=== PATIENT | male | born 1960 | race Caucasian/White ===

== ENCOUNTER 2024-03-03 07:22 | Outpatient (CLI) | payer BC, SELFPAY ==
[2024-03-03 07:37] LABS: Basophils Absolute Auto 0.02 K/mm3 (0.00-0.10); Basophils Percent Auto 0.2 % (0.0-1.0); Hematocrit 37.2 % (40.0-54.0); Hemoglobin 12.2 g/dL (14.0-18.0); Immature Granulocyte Absolute 0.05 K/mm3 (0.00-0.00); Immature Granulocyte Percent A 0.4 % (0.0-0.0); Lymphocytes Absolute Auto 1.58 K/mm3 (1.10-4.50); Lymphocytes Percent Auto 13.2 % (18.0-42.0); Mean Corpuscular HGB Conc 32.8 g/dL (32-36); Mean Corpuscular Hemoglobin 30.3 pg (27.0-31.0); Mean Corpuscular Volume 92.3 fL (78.0-102.0); Mean Platelet Volume 9.4 fl (8.7-11.0); Monocytes Absolute Auto 1.44 K/mm3 (0.10-0.90); Monocytes Percent Auto 12.1 % (2.0-11.0); Neutrophils Absolute Auto 8.86 K/mm3 (1.70-7.20); Neutrophils Percent Auto 74.1 % (50.0-70.0); Platelet Count Result 357 K/mm3 (150-420); Red Blood Count 4.03 M/mm3 (4.70-6.10); Red Cell Distribution Width 13.3 % (11.6-14.4)
[2024-03-03 07:41] LABS: Add Urine Microscopic? YES; Appearance Urine Clear (Clear); Bilirubin Urine Negative (Negative); Blood Urine 2+ (Negative); Color Urine Light Yellow (Yellow); Glucose Urine UA Trace (Negative); Ketones Urine Negative (Negative); Leukocyte Esterase Ur 1+ (Negative); Nitrate Urine Negative (Negative); Protein Urine 1+ (Negative); Specific Grav Ur 1.015 (1.010-1.020); Urobilinogen Urine 0.2 mg/dL (0.2-1.0); pH Urine 6.5 (5.0-8.0)
[2024-03-03 07:47] LABS: Bacteria Urine Trace /hpf
[2024-03-03 08:27] LABS: Alanine Aminotransferase 18 U/L (16-63); Albumin Level 3.3 g/dL (3.4-5.0); Alkaline Phosphatase 124 U/L (46-116); Anion Gap 16 mmol/L (4-12); Aspartate Amino Transferase 12 U/L (15-37); Bilirubin,Total 0.5 mg/dL (0.00-1.00); Blood Urea Nitrogen 67 mg/dL (7-18); Calcium 8.6 mg/dL (8.5-10.1); Carbon Dioxide 19 mmol/L (21-32); Chloride 104 mmol/L (98-108); Cholesterol 226 mg/dL (0-200); Estimated Glomerular Filt Rate 5; Glucose 91 mg/dL (70-99); HDL Direct 47 mg/dL (40-60); LDL Cholesterol Calculated 155 mg/dL (<130); Osmolality Calculated 307 mOsm/kg (285-295); Potassium 5.2 mmol/L (3.5-5.1); Prostate Specific Antigen 0.8 ng/mL (< OR = 4.0); Sodium 139 mmol/L (136-145); Total Protein 7.4 g/dL (6.4-8.2); Triglycerides 121 mg/dL (0-150)
== END 2024-03-03 07:23 | disposition home or self-care (01) ==
PROVIDERS: PCP Internal Medicine; Visit Provider Internal Medicine
DX: Z00.00 Encounter for general adult medical examination without abnormal findings (principal)
CPT/HCPCS: 36415; 80053; 80061; 81001; 84153; 84443; 85025; G0103

== ENCOUNTER 2024-07-08 16:17 | Outpatient (CLI) | payer BC, SELFPAY ==
[2024-07-08 16:32] LABS: Basophils Absolute Auto 0.02 K/mm3 (0.00-0.10); Basophils Percent Auto 0.2 % (0.0-1.0); Hematocrit 40.1 % (40.0-54.0); Hemoglobin 13.1 g/dL (14.0-18.0); Immature Granulocyte Absolute 0.04 K/mm3 (0.00-0.00); Immature Granulocyte Percent A 0.4 % (0.0-0.0); Lymphocytes Percent Auto 24.6 % (18.0-42.0); Mean Corpuscular HGB Conc 32.7 g/dL (32-36); Mean Corpuscular Hemoglobin 29.9 pg (27.0-31.0); Mean Corpuscular Volume 91.6 fL (78.0-102.0); Mean Platelet Volume 9.7 fl (8.7-11.0); Monocytes Absolute Auto 0.76 K/mm3 (0.10-0.90); Monocytes Percent Auto 8.5 % (2.0-11.0); Neutrophils Absolute Auto 5.92 K/mm3 (1.70-7.20); Neutrophils Percent Auto 66.3 % (50.0-70.0); Platelet Count Result 401 K/mm3 (150-420); Red Blood Count 4.38 M/mm3 (4.70-6.10); Red Cell Distribution Width 13.1 % (11.6-14.4); White Blood Count 8.9 K/mm3 (4.8-10.8)
[2024-07-08 16:33] LABS: Add Urine Microscopic? YES; Appearance Urine Clear (Clear); Bilirubin Urine Negative (Negative); Blood Urine 2+ (Negative); Color Urine Light Yellow (Yellow); Glucose Urine UA 1+ (Negative); Ketones Urine Negative (Negative); Leukocyte Esterase Ur Trace LEU/UL (Negative); Nitrate Urine Negative (Negative); Protein Urine 2+ (Negative); Specific Grav Ur 1.025 (1.010-1.020); Urobilinogen Urine 0.2 mg/dL (0.2-1.0)
[2024-07-08 16:43] LABS: Bacteria Urine Trace /hpf; RBC Urine 21-50 /hpf (0-2); Squamous Epithelial Cell Urine Few /hpf (Few); WBC Urine 0-3 /hpf (0-3)
[2024-07-08 17:15] LABS: Alanine Aminotransferase 18 U/L (16-63); Albumin Level 3.7 g/dL (3.4-5.0); Alkaline Phosphatase 120 U/L (46-116); Anion Gap 13 mmol/L (4-12); Aspartate Amino Transferase 17 U/L (15-37); Bilirubin,Total 0.1 mg/dL (0.00-1.00); Blood Urea Nitrogen 39 mg/dL (7-18); Calcium 9.3 mg/dL (8.5-10.1); Carbon Dioxide 24 mmol/L (21-32); Chloride 105 mmol/L (98-108); Estimated Glomerular Filt Rate 23; Glucose 84 mg/dL (70-99); Magnesium 1.9 mg/dL (1.8-2.4); Osmolality Calculated 302 mOsm/kg (285-295); Phosphorus 4.4 mg/dL (2.6-4.7); Potassium 4.3 mmol/L (3.5-5.1); Sodium 142 mmol/L (136-145); Total Protein 7.9 g/dL (6.4-8.2)
[2024-07-08 17:17] LABS: CRP < 0.5 mg/dL (0.0-0.9)
[2024-07-08 17:37] LABS: Erythrocyte Sedimentation Rate 35 mm/hr (0-20)
[2024-07-11 14:19] LABS: Complement Total CH50 >60 U/mL (31-60)
[2024-07-12 06:28] LABS: Complement C3 146 mg/dL (82-185)
[2024-07-15 03:04] LABS: ANCA Screen NEGATIVE (NEGATIVE)
== END 2024-07-08 16:18 | disposition home or self-care (01) ==
PROVIDERS: PCP Internal Medicine; Visit Provider Internal Medicine
DX: N17.9 Acute kidney failure, unspecified (principal)
CPT/HCPCS: 36415; 80053; 81001; 83735; 84100; 85025; 85652; 86036; 86038; 86039; 86140; 86160; 86162

== ENCOUNTER 2024-08-18 13:38 | Outpatient (CLI) | payer BC, SELFPAY ==
--- NOTE | ~2024-08-18 | XR_ITS ---
EXAM: XR abdomen/kub 1V DATE: 08/18/2024 14:46 HISTORY: Calculus of ureter . COMPARISON: CT abdomen and pelvis, same date. FINDINGS: Clear lung bases. Normal bowel gas pattern. No organomegaly. Scattered pelvic phleboliths. Lumbar degenerative disc disease. 17 mm calcification over the right renal pelvis. Bilateral hip ost eoarthritis. Bilateral ureteral stents, in good position. IMPRESSION: Stable right renal pelvis stone. Bilateral ureteral stents, in good position. Reviewed, dictated and finalized at location K. TER PACKAGING MACHINE OPERATOR
--- NOTE | ~2024-08-18 | CT_ITS ---
EXAMINATION: CT abdomen pelvis wo con DATE: 08/18/2024 13:57 INDICATION: Calculus of ureter. TECHNIQUE: Computed tomography (CT) of the abdomen and pelvis was performed without intravenous contr ast. Automated exposure control and iterative reconstruction technique were employed. The dose-length product was 553.53 mGy-cm. COMPARISON: CT abdomen and pelvis 12/05/2013 FINDINGS: The visualized portions of the lung bases demonstrate minimal atelectasis. No pleural effus ion. The heart size is normal. No pericardial effusion. Calcifications in the liver and spleen are co nsistent with old granulomatous disease. The gallbladder, pancreas, and adrenal glands are normal. Th ere is a 3.1 cm cyst in right kidney. There is moderate right hydronephrosis and hydroureter. There i s a 16 mm stone in right renal pelvis. There is a right internal ureteral stent in expected position. There is a 6 mm hyperdense mass in left kidney, likely a hemorrhagic cyst. There is a left internal ureteral stents in expected position. There are bilateral inguinal hernias containing fat. There is d iverticulosis of the colon without evidence of diverticulitis. The appendix is normal. There are no d ilated loops of bowel. There are no pathologically enlarged lymph nodes. There is no free intraperito bernard fluid. There is mild thoracic and lumbar spondylosis. IMPRESSION: 1. 16 mm stone in right renal pelvis. 2. Moderate right hydronephrosis and hydroureter with right internal ureteral stent in expected posit ion. 3. Left internal ureteral stent in expected position. Reviewed, dictated and finalized at location A. S OPERATIONS ANALYST IMPRESSION: 1. 16 mm stone in right renal pelvis. 2. Moderate right hydronephrosis and hydroureter with right internal ureteral s tent in expected position. 3. Left internal ureteral stent in expected position.
== END 2024-08-18 13:39 | disposition home or self-care (01) ==
PROVIDERS: PCP Urology; Visit Provider Urology
DX: N20.1 Calculus of ureter (principal)
CPT/HCPCS: 74018; 74176

== ENCOUNTER 2024-09-09 15:24 | Outpatient (CLI) | payer BC, SELFPAY ==
--- OUTSIDE RECORDS SUMMARY | 2024-09-09 15:27 | XMS_ITS | Clinical Summary ---
Author Organization [facility] Address [address] [place] [address] Care Team Providers Care Supervisor Knitting Name Role Phone Carlos Ventura MD Primary Care Provider [phone] Allergies No known active allergies Medications Fluticasone-Um eclidin-Vilant (TRELEGY ELLIPTA IN) Inhale into the lungs daily. Active omeprazole (PRILOSEC) 40 MG capsule Take 1 capsule (40 mg total) by mouth daily. Active fluticasone propionate (FLONASE) 50 MCG/ACT nasal spray 2 sprays by Each Nostril route nightly at bedtime. Active Benralizumab (FASENRA SC) Inject into the skin see administration instructions. Every 2 months Active montelukast (SINGULAIR) 10 MG tablet Take 1 tablet (10 mg total) by mouth nightly at bedtime. Active amLODIPine (NORVASC) 5 MG tablet Take 1 tablet (5 mg total) by mouth daily. 30 tablet 4 Active HYDROcodone-ac etaminophen (NORCO) 5-325 MG tabletIndicati ons:Acute Pain < 7 Day Supply Take 1 tablet by mouth every 4 (four) hours as needed. Indications: Acute Pain < 7 Day Supply 10 tablet 4 Active Active Problems Problem Noted Date Diagnosed Date Acute renal failure (ARF) 03/03/2024 Social History Tobacco Use Types Packs/Day Years Used Date Smoking Tobacco: Never Smokeless Tobacco: Never Tobacco Cessation:Counseling Given: Not Answered Alcohol Use Standard Drinks/Week Comments Yes 23.3 (1 standard drink = 0.6 oz pure alcohol) vodka every evening [facility] Utilities Answer Date Recorded In the past 12 months has [facility] [employer], [employer], or [employer] threatened to shut off services in your home? No 03/04/2024 Humiliation, Afraid, Rape, and Kick questionnair e Answer Date Recorded Within the last year, have y ou been afraid of your partner or ex-partner? No 03/04/2024 Within the last year, have y ou been humiliated or emotionally abused in other ways by your partner or ex-partner? No Within the last year, have y ou been kicked, hit, slapped, or otherwise physically hurt by your partner or ex-partner? No 03/04/2024 Within the last year, have y ou been raped or forced to have any kind of sexual activity by your partner or ex-partner? No 03/04/2024 Overall Financial Resource Strain (CARDIA) Answe r Date Recorded How hard is it for you to pa y for the very basics like food, housing, medical care, and heating? Not hard at all 03/04/2024 Hunger Vital Sign Answer Date Recorded Within the past 12 months, y ou worried that your food would run out before you got the money to buy more. Never true 03/04/20 24 Within the past 12 months, t he food you bought just didn't last and you didn't have money to get more. Never true 03/04/2024 PRAPARE - Transportation Answer Date Re corded In the past 12 months, has l ack of transportation kept you from medical appointments or from getting medications? No 02/17 In the past 12 months, has l ack of transportation kept you from meetings, work, or from getting things needed for daily living? No 03/04/2024 Housing Stability Vital Sign Answer Reuben e Recorded In the last 12 months, was t here a time when you were not able to pay the mortgage or rent on time? No 03/04/2024 In the past 12 months, how m any times have you moved where you were living? 0 03/04/2024 At any time in the past 12 m [facility], were you homeless or living in a half-way (including now)? No 03/04/2024 Sex and Gender Information Value Date Recorded Sex Assigned at Not on file Legal Sex Male 6:21 PM CDT Gender Identity Not on file Sexual Orientation Not on file Last Filed Vital Signs Vital Sign Reading Time Taken Comments Blood Pressure 151/115 2024 7:29 AM CDT Pulse 108 2024 7:29 AM CDT Temperature 36.8 C (98.2 F) 2024 7:29 AM CDT Respiratory Rate 18 2024 7:29 AM CDT Oxygen Saturation 98% 2024 7:29 AM CDT Inhaled Oxygen Concentration - - Weight 85.8 kg (189 lb 3.2 oz) 2024 3:42 A M CDT Height 167.6 cm (5' 6 ) 03/03/2024 8:12 PM CDT Body Mass Index 30.54 03/03/2024 8:12 PM CDT Plan of Treatment Health Maintenance Due Date Last Done Comments Colorectal Cancer Screening Colonoscopy (10 Years) 1960 Annual Physical 1963 DTaP, Tdap and Td Vaccines ( 1 - Tdap) 1979 Zoster Vaccines (1 of 2) 2010 COVID-19 Vaccine ( - 2023-2 5 season) 2024 Influenza Adult (#1) 2024 RSV Immunization or 60+ Years (1 - 1-dose 75+ series) 2035 Hepatitis C Completed 03/04/2024 Meningococcal B Vaccine Aged Out No l onger eligible based on patient's age to complete this topic Meningococcal Vaccine Aged Out No lali fanny eligible based on patient's age to complete this topic Pneumococcal Vaccine: Pediat rics (0 to 5 Years) and At-Risk Patients (6 to 64 Years) Aged Out No longer eligi ble based on patient's age to complete this topic RSV Immunizations Under 20 Months Aged Out No longer eligible based on patient's age to complete this topic Medical Devices Implanted Type Area Director Enterprise Sales Device Identifier Shelf Expiration Date Model / Serial / Lot Stent Ureteral Contour Vl 4.8fr X 22-30cm - [id number] Implanted:Qty : 1 on 03/05/2024 by Stanley Gonzalez MD at [facility] Stent Right: Ureter [employer] LUCIUS [id number] 12/07/2026 [id number] 50 / / [id number] Stent Ureteral Contour Vl 4.8fr X 22-30cm - [id number] Implanted:Qty : 1 on 03/05/2024 by Stanley Gonzalez MD at [facility] Stent Right: Ureter [employer] LUCIUS [id number] 12/07/2026 [id number] 50 / / [id number] Procedures Procedure Name Priority Date/Time Associated Diagnosis Comments HEPATITIS C ANTIBODY Routine 03/04/2024 6:42 AM CDT from Last 3 Months or Most Recently Relevant to Health Maintenance Results * HEPATITIS C ANTIBODY W/REFLEX (03/04/2024 6:42 AM CDT) HEPATITIS C AB NON-REACTI VE NON-REACTI VE 03/04/2024 8:53 AM CDT [facility] 03/04/2024 6:42 AM CDT Moses Leslie MD LABORATORY Final Result [facility] [address] [place] [address], from Last 3 Months or Most Recently Relevant to Health Maintenance Insurance [facility] Advance Directives * Full Code (Latest Code Status on File) Date Activated Date Inactivated Comments 03/03/2024 9:23 PM 2024 2:50 PM Care Teams Supervisor Knitting Relationship Specialty Start Date End Date Carlos Ventura MD [address] [place] [id number] PCP - General INTERNAL MEDICINE 03/03/24
--- NOTE | 2024-09-09 15:35 | ECG_ITS ---
Test Date: 2024-09-09 15:47:51 Measurements Intervals [place] Rate: 91 P: 60 MT: 148 QRS: 71 QRSD: 97 T: 44 QT: 350 QTc: 432 Interpretive Statements SINUS RHYTHM NORMAL ECG No previous ECG available for comparison Electronically Signed On 09-09-2024 15:54:58 BENZENE WORKER by Brad Pierson D.O.
[2024-09-09 16:10] LABS: INR 0.9; Partial Thromboplastin Time 25.3 Sec (23.9-30.70); Prothrombin Time 9.9 Seconds (9.50-12.1)
== END 2024-09-09 15:25 | disposition home or self-care (01) ==
PROVIDERS: PCP Urology; Visit Provider Urology
DX: I10 Essential (primary) hypertension (principal); N20.0 Calculus of kidney
CPT/HCPCS: 36415; 85610; 85730; 87086; 93005

== ENCOUNTER 2024-09-16 01:03 | Day surgery (SDC) | payer BC, SELFPAY ==
[2024-09-07 09:59] VITALS: BMI 32.0
--- NOTE | 2024-09-07 10:06 | PC.NURSE ---
Report to the Outpatient Waiting Room, entrance under the green pavilion located off [facility], at time _0830_ on date _09/16/24_. Planned Procedure Time: _1030_.? Time changes happen often and if your time is changed the preop area will call you the afternoon before. - You and your visitor will be asked to self-screen and do not enter if you have any COVID symptoms. Please call surgeon if you need to reschedule. - A mask is optional within the hospital at this time. Patients may have clear liquids (water, carbonated beverages, clear teas, apple juice) until 3 hours prior to surgery with a maximum of 20 ounces. - No food from midnight until time of surgery and no smoking, or chewing tobacco (or any form of nicotine). No chewing gum, candy or mints. - Infants may have breast milk until 4 hours before surgery, infant formula 6 hours prior to surgery. - Children will be allowed to drink immediately following surgery.? If applicable, please bring a bottle or sippy cup to assist with drinking. Juice, water, soda, and popsicles are readily available.? For infants on formula, please bring formula the day of surgery.? Pacifiers are allowed. Take only the following medications with a SIP of water on the morning of surgery: _NONE DO NOT STOP ANY OF YOUR OTHER PRESCRIPTION MEDICATIONS PRIOR TO SURGERY EXCEPT THE FOLLOWING Hold all vitamins and supplements for 3 days per anesthesiologist. Medications to discontinue per physician NONE Date to take last dose Please no make-up, nail greenlandic, hairspray, perfume, deodorant, or body powder the day of surgery.? No jewelry (including any body piercings) or valuables the day of surgery, leave them at home.? Please take a shower or bath the night before, or the morning of, surgery with an antibacterial soap.? Wear comfortable, loose fitting clothing.? Children are encouraged to wear pajamas. - Jewelry must be removed prior to entering the operating room.? Rings and piercings that are not removed may be cut off. - The hospital will not accept responsibility for valuables.? - Please leave all valuables, including medications, at home the day of surgery. If you are going home after surgery, a licensed car pick up driver must drive you home.? - NO public transportation without another adult if you receive anesthesia. - We recommend that an adult stay with you for 24 hours following discharge. - We also recommend that you do not drive, make important decision, drink alcoholic beverages, or take any drugs that were not prescribed by your health care provider for at least 24 hours after your discharge time. For Pediatric surgeries, we recommend two adults accompany the child home. Follow any additional instructions given to you from your surgeon. Telephone instructions given to __PATIENT___and asked if any additional questions and then verbalized understanding. Patient advised to call surgeon office or pre surgery nurse liaison [phone] if any additional questions.
[2024-09-16 08:38] VITALS: BMI 32.0
[2024-09-16 09:10] VITALS: BP 165/102; PULSE 79; RESP 16; TEMP 36.7; O2SAT 100
[2024-09-16] MEDS: LACTATED RINGERS 1,000 ML 30 ML IV CONT ×2 (09:15→12:19)
--- NOTE | 2024-09-16 09:51 | PM.IMHP ---
H&P: HPI History of Present Illness Date/Time: 09/16/24 09:51 Chief Complaint: 16 mm right renal pelvic stone with bilateral ureteral stents Narrative: 64-year-old male who had bilateral ureteral stents placed back in February of 2024. He was lost a follow-up. Subsequent CT does not reveal any left ureteral stones. He is now here for lithotripsy of his right renal stone. Given the stents have been in so long I will plan on removing the left ureteral stent and exchanging the right 1 at this time also. Review of Systems Review of Systems: All systems reviewed & are unremarkable except as noted in HPI and below PMFSH Past Medical History Medical History COPD (chronic obstructive pulmonary disease) GERD (gastroesophageal reflux disease) Nephrolithiasis Obstructive uropathy Surgical History Surgical History S/P cystoscopy with ureteral stent placement Family History Family History Father Kidney disease Mother COPD (chronic obstructive pulmonary disease) Social History Social History Smoking status: Never smoker Second hand tobacco smoke exposure: Yes Alcohol intake: current Drinks per week: 1 Alcohol use details: vodka Substance use: never Do You Feel Safe in your Home?: Yes Lack of Transportation: No Lack of Food: Never True Current Housing: I Have Housing Concerned About Future Housing: No Difficulty Paying Gas/Electric Bills: No Difficulty Paying for Meds: No Currently Unemployed: No Education: High School Diploma/GED Difficulty w/ Childcare or Family Care: No Living arrangements: with family Occupation/Education: occupation Gender identity (if verbalized by the patient): Male Spiritual care concerns: No Agree to blood products: Yes Meds Home Medications and Allergies Home Medications ?Medication ?Instructions ?Recorded ?Confirmed ?Type fluticasone fur. 100 mcg-umeclid 1 inh inhalation DAILY 08/23/24 09/07/24 History 62.5 mcg-vilant 25 mcg inhalat.powder (Trelegy Ellipta) fluticasone propionate 50 1 spray intranasal DAILY 08/23/24 09/07/24 History mcg/actuation nasal spray,suspension metoprolol succinate 25 mg 25 mg PO HS 08/23/24 09/16/24 History tablet,extended release 24 hr montelukast 10 mg tablet 10 mg PO DAILY 08/23/24 09/16/24 History omeprazole 40 mg capsule,delayed 40 mg PO DAILY 08/23/24 09/16/24 History release Allergies Allergy/AdvReac Type Severity Reaction Status Date / Time No Known Allergies Allergy Verified 09/16/24 08:53 Vital Signs Vital Signs - 24 hr 09/16/24 09:10 Temperature 36.7 C Pulse Rate 79 Respiratory Rate 16 Blood Pressure 165/102 H Pulse Oximetry 100 Oxygen Delivery Room Air Exam Const: General: cooperative and comfortable HENMT: Head: normal to inspection Resp: Effort & Inspection: normal respiratory effort Cardio: Rate: regular rate Rhythm: regular rhythm Assessment and Plan Assessment and plan (1) Right renal stone: Code(s): N20.0 - Calculus of kidney Status: Acute Assessment and Plan: Will plan on lithotripsy of right renal calculus with cysto and left stent removal, right stent exchange as well as retrograde pyelogram
--- NOTE | 2024-09-16 09:54 | WPDHPUPDATE1 ---
History and Physical Update Update Date/Time: 09/16/24 09:54 History and Physical has been reviewed, including an updated exam of the patient. There are NO changes in the patient's condition. Risks, benefits, and alternatives have been discussed and questions answered. Patient agrees to proceed with procedure.
--- NOTE | 2024-09-16 11:08 | WPDANESEPPF ---
Anes - Initial Pre Proc Eval Procedure: Operation Date: 09/16/24 10:30 Proposed Procedures p Right Extracorporeal Shock Wave Lithotripsy - Alexis King MD Date/Time: 09/16/24 11:08 Surgeon: Alexis King MD Pre Op Diagnosis: right renal kidney stone Patient Data Age: 64 Gender: M Height: 1.68 m Weight: 90.05 kg Last Vital Signs Temp 98.1 F 09/16/24 09:10 Pulse 79 09/16/24 09:10 Resp 16 09/16/24 09:10 BP 165/102 H 09/16/24 09:10 Pulse Ox 100 09/16/24 09:10 O2 Del Method Room Air 09/16/24 09:10 Allergies Allergy/AdvReac Type Severity Reaction Status Date / Time No Known Allergies Allergy Verified 09/16/24 08:53 Home Medications ?Medication ?Instructions ?Recorded ?Confirmed ?Type fluticasone fur. 100 mcg-umeclid 1 inh inhalation DAILY 08/23/24 09/07/24 History 62.5 mcg-vilant 25 mcg inhalat.powder (Trelegy Ellipta) fluticasone propionate 50 1 spray intranasal DAILY 08/23/24 09/07/24 History mcg/actuation nasal spray,suspension metoprolol succinate 25 mg 25 mg PO HS 08/23/24 09/16/24 History tablet,extended release 24 hr montelukast 10 mg tablet 10 mg PO DAILY 08/23/24 09/16/24 History omeprazole 40 mg capsule,delayed 40 mg PO DAILY 08/23/24 09/16/24 History release Laboratory Tests 09/16/24 10:37 Sodium Pending Potassium Pending Chloride Pending Carbon Dioxide Pending Anion Gap Pending BUN Pending Creatinine Pending Estim Creat Clear Calc Pending Estimated GFR Pending Glucose Pending Calcium Pending Patient hx anesthesia problems: none Family hx anesthesia problems: none Results Review: All pre-operative results and documents have been reviewed as part of the pre-operative evaluation. [facility] Past Medical History Medical History COPD (chronic obstructive pulmonary disease) GERD (gastroesophageal reflux disease) Nephrolithiasis Obstructive uropathy Surgical History Surgical History S/P cystoscopy with ureteral stent placement Family History Family History Father Kidney disease Mother COPD (chronic obstructive pulmonary disease) Social History Social History Smoking status: Never smoker Second hand tobacco smoke exposure: Yes Alcohol intake: current Drinks per week: 1 Alcohol use details: vodka Substance use: never Do You Feel Safe in your Home?: Yes Lack of Transportation: No Lack of Food: Never True Current Housing: I Have Housing Concerned About Future Housing: No Difficulty Paying Gas/Electric Bills: No Difficulty Paying for Meds: No Currently Unemployed: No Education: High School Diploma/GED Difficulty w/ Childcare or Family Care: No Living arrangements: with family Occupation/Education: occupation Gender identity (if verbalized by the patient): Male Spiritual care concerns: No Agree to blood products: Yes Anes - Eval Final PreProcedure Day of Procedure 09/16/24 11:08 Patient weight: obese Lungs: normal air movement Airway: Mallampati scale class II and special considerations (Teeth in very poor condition, many missing throughout. ) Neurological: alert and oriented Last oral intake: >/= 8 hours ASA classification: III Emergent: no Anesthetic plan: proceed Anesthesia type and monitoring: general LMA and standard monitoring Results Review: All pre-operative results and documents have been reviewed as part of the pre-operative evaluation. Pt denies every smoking although COPD in hx, drinks 1 drink/day, CRI/SELWYN, BMP pending. Informed Consent: The patient's anesthetic plan and its attendant risks and benefits were discussed with the patient/family/POA. Questions were solicited and answers provided to the satisfaction of the patient/family/POA.
[2024-09-16 11:10] LABS: Anion Gap 8 mmol/L (4-12); Blood Urea Nitrogen 33 mg/dL (9-20); Calcium 9.6 mg/dL (8.4-10.2); Carbon Dioxide 26 mmol/L (22-30); Chloride 108 mmol/L (98-107); Estimated CRCL calculation 27 ml/min; Estimated Glomerular Filt Rate 24; Glucose 103 mg/dL (65-110); Potassium 5.2 mmol/L (3.4-5.0); Sodium 142 mmol/L (137-145)
[2024-09-16] MEDS: ceFAZolin 2 GM/D5W 50 ML 2 GM/50 ML BAG IVPB (11:27)
[2024-09-16] MEDS: LIDOCAINE 2% GEL UROJET 10 ML PKG MUCOUS MEM (11:52)
--- NOTE | 2024-09-16 12:13 | W.PM.PROC2 ---
Procedure Note - Detailed Date of Procedure 09/16/24 Pre-op Diagnosis right renal kidney stone, bilateral ureteral stents Post-op Diagnosis Same Procedure Performed Cystoscopy with bilateral ureteral stent removal, right ureteroscopy, retrograde pyelogram, lithotripsy of right renal calculus, right stent placement Surgeon Alexis King MD Anesthesia General Description of Procedure Patient is taken the operative suite correctly identified. Once anesthesia was obtained was a supine position prepped draped usual sterile fashion. Sixteen Tajik scope was inserted the bladder. Both ureteral stents were retrieved. The right ureteral orifice was then cannulated with a guidewire and ureteral catheter was inserted. Pyelogram was then performed to see if we could delineate the stone but this was very difficult to visualize. As such I placed a mini flexible ureteral scope up to the kidney. Using this as a guide we localized the stone and gave 2500 shocks to it. 4.8 Tajik contour stent was then placed with the proximal end coiled in the renal pelvis and the distal in the bladder. 2% viscous lidocaine was inserted into the urethra patient is taken recovery stable condition. He will follow-up in 7-10 days with KUB. If it is poorly visible we may need to repeat a CT prior to removing that stent. This completes dictation. Please send a copy of op note to my office. Estimated Blood Loss 0 Drains Yes Packing No Pathology None sent Complications No immediate complications Condition Stable Disposition PACU
[2024-09-16 12:19] VITALS: BP 120/80; PULSE 78; RESP 16; TEMP 36.3; O2SAT 97
[2024-09-16 12:30] VITALS: BP 137/88; PULSE 77; RESP 16; O2SAT 99
[2024-09-16 12:45] VITALS: BP 163/98; PULSE 80; RESP 15; O2SAT 98
[2024-09-16 12:50] VITALS: BP 165/108; PULSE 76; RESP 20
[2024-09-16 13:20] VITALS: BP 164/104; PULSE 72; RESP 20
== END 2024-09-16 13:31 | disposition home or self-care (01) ==
PROVIDERS: Anesthesiology; PCP Internal Medicine; Visit Provider Urology
PROC: (CPT 50590; principal; 2024-09-16 10:30)
PROC: (CPT 52310; 2024-09-16 10:30)
DX: N20.0 Calculus of kidney (principal); K21.9 Gastro-esophageal reflux disease without esophagitis; J44.9 Chronic obstructive pulmonary disease, unspecified; I10 Essential (primary) hypertension; J45.909 Unspecified asthma, uncomplicated
CPT/HCPCS: 52356; 50945; 36415; 74018; 80048; C1758; C1769; C2617; J0690; J2003; J2250; J2405; J2704; J3010; J7120; Q9966

== ENCOUNTER 2024-09-29 12:37 | Outpatient (CLI) | payer BC, SELFPAY ==
--- NOTE | ~2024-09-29 | XR_ITS ---
XR abdomen/kub 1V Ordering provider: Alexis King MD History: . Calculus of ureter . Comparison: September 16, 2024 FINDINGS: BOWEL: Nonobstructive bowel gas pattern. ORGANOMEGALY: None. SIGNIFICANT PATHOLOGIC CALCIFICATIONS: Faint calcification is seen in the area of the right kidney lo wer pole which may be a stone. Right double-J stent is noted. Status post removal of left double-J stent. OTHER: No free air is seen under the diaphragm. IMPRESSION: NO ACUTE ABDOMINAL FINDINGS. Faint calcification in the area of the right kidney lower pole highly suggestive of a stone. Reviewed, dictated and finalized at location A. IMPRESSION: NO ACUTE ABDOMINAL FINDINGS. Faint calcification in the area of the right kidney lower pole highly suggestiv e of a stone.
== END 2024-09-29 12:38 | disposition home or self-care (01) ==
LOC: MICIMG 12:50
PROVIDERS: PCP Internal Medicine; Visit Provider Urology
DX: N20.1 Calculus of ureter (principal)
CPT/HCPCS: 74018

== ENCOUNTER 2024-10-10 14:51 | Outpatient (CLI) | payer BC, SELFPAY ==
--- NOTE | ~2024-10-10 | CT_ITS ---
EXAMINATION: CT abdomen pelvis wo con DATE: 10/10/2024 15:16 INDICATION: Calculus of ureter with right flank pain. TECHNIQUE: Computed tomography (CT) of the abdomen and pelvis was performed without intravenous contr ast. Automated exposure control and iterative reconstruction technique were employed. The dose-length product was 276.41 mGy-cm. COMPARISON: 08/18/2024 FINDINGS: Mild dependent atelectasis in bilateral lower lobes. Heart size is normal. No pericardial or pleural effusion. Liver, gallbladder, spleen, pancreas and bilateral adrenal glands are normal. There is mode rate colonic diverticulosis with a sigmoid and descending colon predominance and without adjacent inf lammatory change to suggest diverticulitis. Small bowel and appendix are normal. Moderate-sized bila teral fat-containing inguinal hernias. Interval removal of a prior left intraureteral stent. There are couple residual 1-2 mm nonobstructing stones at the proximal most left ureter with no left hydronephrosis. Right internal ureteral stent r emains in place with loops formed in the right renal pelvis and in the bladder. Unchanged 1.5 cm ston e in a lower pole calyx of the right kidney. No stones seen along the right internal ureteral stent. No right-sided hydronephrosis. Bladder is normal. No free intraperitoneal gas or fluid. No pathologically enlarged abdominal or pelvic lymphadenopathy. Mild thoracic and lumbar spondylosis with 3 mm anterolisthesis L4 on L5. IMPRESSION: 1. Bilateral nephrolithiasis with unchanged 1.5 cm stone at the lower pole the right kidney with righ t intrarenal stent remaining in expected position. 2. Interval removal of a prior left intraureteral stent with a couple one-2 mm stones in the proximal most left ureter without hydronephrosis. 3. Moderate-sized bilateral fat-containing inguinal hernias. Reviewed, dictated and finalized at location B. IMPRESSION: 1. Bilateral nephrolithiasis with unchanged 1.5 cm stone at the lower pole the right kidney with right intrarenal stent remaining in expected position. 2. Interval removal of a prior left intraureteral stent with a couple one-2 mm stones in the proximal most left ureter without hydronephrosis. 3. Moderate-sized bilateral fat-containing inguinal hernias.
--- NOTE | ~2024-10-10 | XR_ITS ---
XR abdomen/kub 1V Ordering provider: Alexis King MD History: . CALCULUS OF URETER, RT flank pain, stent X 2 weeks ago . Comparison: None. FINDINGS: BOWEL: Nonobstructive bowel gas pattern. ORGANOMEGALY: None. SIGNIFICANT PATHOLOGIC CALCIFICATIONS: Right double-J stent. Stone in the right kidney lower pole is noted. Stone in the area of the upper ureter is highly suggestive. OTHER: No free air is seen under the diaphragm. Bilateral hip osteoarthritic changes. IMPRESSION: NO ACUTE ABDOMINAL FINDINGS. Stone in the right kidney lower pole. Right double-J stent. Stone in the area of the right upper uret er. Reviewed, dictated and finalized at location A. IMPRESSION: NO ACUTE ABDOMINAL FINDINGS. Stone in the right kidney lower pole. Right double-J stent. Stone in the area o f the right upper ureter.
--- OUTSIDE RECORDS SUMMARY | 2024-10-10 17:14 | XMS_ITS | Clinical Summary ---
Author Organization [facility] Address [address] [place] [address] Care Team Providers Care Garland Maker Name Role Phone Carlos Ventura MD Primary Care Provider [phone] Allergies No known active allergies Medications Fluticasone-Um [...] 0.6 oz pure alcohol) vodka every evening [facility] Utilities Answer Date Recorded In the past 12 months has [facility] [employer], [employer], or [employer] threatened to shut off services in your [...] any time in the past 12 m [facility], were you homeless or living in a senior living (including now)? No 03/04/2024 Sex and Gender [...] this topic Medical Devices Implanted Type Area Family Resource Coordinator Device Identifier Shelf Expiration Date Model / Serial / Lot Stent Ureteral Contour Vl 4.8fr X 22-30cm - [id number] Implanted:Qty : 1 on 03/05/2024 by Stanley Gonzalez MD at [facility] Stent Right: Ureter [employer] [id number] 12/07/2026 [id number] 50 / / [id number] Stent Ureteral Contour Vl 4.8fr X 22-30cm - [id number] Implanted:Qty : 1 on 03/05/2024 by Stanley Gonzalez MD at [facility] Stent Right: Ureter [employer] [id number] 12/07/2026 [id number] / / [id number] Procedures Procedure Name Priority Date/Time Associated Diagnosis Comments HEPATITIS C ANTIBODY Routine 03/04/2024 6:42 AM CDT from Last 3 Months or Most Recently Relevant to Health Maintenance Results * HEPATITIS C ANTIBODY W/REFLEX (03/04/2024 6:42 AM CDT) HEPATITIS C AB NON-REACTI VE NON-REACTI VE 03/04/2024 8:53 AM CDT [facility] 03/04/2024 6:42 AM CDT Moses Leslie MD LABORATORY Final Result [facility] [address] [place] [address], from Last 3 Months or Most Recently Relevant to Health Maintenance Insurance [facility] Advance Directives * Full Code (Latest Code Status on File) Date Activated Date Inactivated Comments 03/03/2024 9:23 PM 2024 2:50 PM Care Teams Garland Maker Relationship Specialty Start Date End Date Carlos Ventura MD [address] [place] [id number] PCP - General INTERNAL MEDICINE 03/03/24
== END 2024-10-10 14:52 | disposition home or self-care (01) ==
PROVIDERS: PCP Internal Medicine; Visit Provider Urology
DX: N20.1 Calculus of ureter (principal); N20.0 Calculus of kidney; K40.20 Bilateral inguinal hernia, without obstruction or gangrene, not specified as recurrent
CPT/HCPCS: 74018; 74176

== ENCOUNTER 2024-11-04 16:56 | Outpatient (CLI) | payer BC, SELFPAY ==
--- OUTSIDE RECORDS SUMMARY | 2024-11-04 16:59 | XMS_ITS | Clinical Summary ---
Author Organization [facility] Address [address] [place] [address] Care Team Providers Care Loan Inspector Name Role Phone Carlos Ventura MD Primary Care Provider Allergies No known active allergies Medications Fluticasone-Um [...] 0.6 oz pure alcohol) vodka every evening [facility] Utilities Answer Date Recorded In the past 12 months has [facility] [employer], [employer], or [employer] threatened to shut off services in your [...] any time in the past 12 m [facility], were you homeless or living in a longterm (including now)? No 03/04/2024 Sex and Gender [...] Vaccine ( - 2023-2 5 season) 2024 RSV Immunization or 60+ Years (1 - 1-dose 75+ series) 2035 Hepatitis C Completed 03/04/2024 Meningococcal B Vaccine Aged Out No l onger eligible based on patient's age to complete this topic Meningococcal Vaccine Aged Out No lali fanny eligible based on patient's age to complete this topic Pneumococcal Vaccine: Pediat rics (0 to 5 Years) and At-Risk Patients (6 to 49 Years) Aged Out No longer eligi ble based on patient's age to complete this topic RSV Immunizations Under 20 Months Aged Out No longer eligible based on patient's age to complete this topic Medical Devices Implanted Type Area Insurance Manager Device Identifier Shelf Expiration Date Model / Serial / Lot Stent Ureteral Contour Vl 4.8fr X 22-30cm - [id number] Implanted:Qty : 1 on 03/05/2024 by Stanley Gonzalez MD at [facility] Stent Right: Ureter [employer] LUCIUS [id number] 12/07/2026 [id number] 50 / / [id number] Stent Ureteral Contour Vl 4.8fr X 22-30cm - [id number] Implanted:Qty : 1 on 03/05/2024 by Stanley Gonzalez MD at [facility] Stent Right: Ureter [employer] LUCIUS [id number] 12/07/2026 [id number] 50 / / [id number] Procedures Procedure Name Priority Date/Time Associated Diagnosis Comments HEPATITIS C ANTIBODY Routine 03/04/2024 6:42 AM CDT from Last 3 Months or Most Recently Relevant to Health Maintenance Results * HEPATITIS C ANTIBODY W/REFLEX (03/04/2024 6:42 AM CDT) HEPATITIS C AB NON-REACTI VE NON-REACTI VE 03/04/2024 8:53 AM CDT [facility] 03/04/2024 6:42 AM CDT Moses Leslie MD LABORATORY Final Result [facility] [address] [address], [place] [phone] from Last 3 Months or Most Recently Relevant to Health Maintenance Insurance [facility] Advance Directives * Full Code (Latest Code Status on File) Date Activated Date Inactivated Comments 03/03/2024 9:23 PM 2024 2:50 PM Care Teams Loan Inspector Relationship Specialty Start Date End Date Carlos Ventura MD [address] [place] [address] PCP - General INTERNAL MEDICINE 03/03/24
== END 2024-11-04 16:57 | disposition home or self-care (01) ==
LOC: CHSLAB 16:57
PROVIDERS: PCP Internal Medicine; Visit Provider Urology
DX: Z01.818 Encounter for other preprocedural examination (principal); N20.0 Calculus of kidney
CPT/HCPCS: 87086

== ENCOUNTER 2024-11-08 03:27 | Day surgery (SDC) | payer BC, SELFPAY ==
[2024-10-26 12:56] VITALS: BMI 31.4
--- NOTE | 2024-10-26 12:57 | PC.NURSE ---
Addendum entered by Tyrell Reza RN 11/07/24 08:44: Spoke with patient's . Informed of need to be here at 0800 on 11-08-2024 for surgery 1000. Says no changes in health hx since preop interview. Original Note: Report to the Outpatient Waiting Room, entrance under the green pavilion located off [facility], at time _0800_ on date _[id number]_. Planned Procedure Time: _1000_.? Time changes happen often and if your time is changed the preop area will call you the afternoon before. - You and your visitor will be asked to self-screen and do not enter if you have any COVID symptoms. Please call surgeon if you need to reschedule. - A mask is optional within the hospital at this time. Patients may have clear liquids (water, carbonated beverages, clear teas, apple juice) until 3 hours prior to surgery with a maximum of 20 ounces. - No food from midnight until time of surgery and no smoking, or chewing tobacco (or any form of nicotine). No chewing gum, candy or mints. Take only the following medications with a SIP of water on the morning of surgery: __Trelegy and Flonase DO NOT STOP ANY OF YOUR OTHER PRESCRIPTION MEDICATIONS PRIOR TO SURGERY EXCEPT THE FOLLOWING Hold all vitamins and supplements for 3 days per anesthesiologist. Medications to discontinue per physician Date to take last dose Please no make-up, nail yi, hairspray, perfume, deodorant, or body powder the day of surgery.? No jewelry (including any body piercings) or valuables the day of surgery, leave them at home.? Please take a shower or bath the night before, or the morning of, surgery with an antibacterial soap.? Wear comfortable, loose fitting clothing.? - Jewelry must be removed prior to entering the operating room.? Rings and piercings that are not removed may be cut off. - The hospital will not accept responsibility for valuables.? - Please leave all valuables, including medications, at home the day of surgery. If you are going home after surgery, a licensed grab driver must drive you home.? - NO public transportation without another adult if you receive anesthesia. - We recommend that an adult stay with you for 24 hours following discharge. - We also recommend that you do not drive, make important decision, drink alcoholic beverages, or take any drugs that were not prescribed by your health care provider for at least 24 hours after your discharge time. Follow any additional instructions given to you from your surgeon. Telephone instructions given to __Almaz__and asked if any additional questions and then verbalized understanding. Patient advised to call surgeon office or pre surgery nurse liaison [phone] if any additional questions.
[2024-11-08] VITALS (9 sets, daily range): BP systolic 154–176; BP diastolic 79–102; PULSE 74–84; RESP 14–20; TEMP 36.3–36.5; O2SAT 97–100
--- NOTE | ~2024-11-08 | XR_ITS ---
EXAMINATION: XR retrograde pyelo w/stent RT DATE: 11/08/2024 08:41 INDICATION: Right internal ureteral stent placement TECHNIQUE: Fluoroscopic images from a right internal ureteral stent stent placement are submitted for review. 19 seconds of fluoroscopy time. FINDINGS: There is a right double-J internal ureteral stent projecting in expected position, with proximal [place] loop at the level of the renal pelvis and distal loop in the pelvis within the bladder lumen. IMPRESSION: 1. Right internal ureteral stent placement. Please refer to real-time procedural findings for detai ls. Reviewed, dictated and finalized at location A. IMPRESSION: 1. Right internal ureteral stent placement. Please refer to real-time procedu ral findings for details.
--- OUTSIDE RECORDS SUMMARY | 2024-11-08 03:34 | XMS_ITS | Clinical Summary ---
Author Organization [facility] Address [address] [place] [address] Care Team Providers Care Joint Cleaning Machine Operator Name Role Phone Carlos Ventura MD Primary Care Provider [phone] Allergies No known active allergies Medications Fluticasone-Um [...] 0.6 oz pure alcohol) vodka every evening [facility] Utilities Answer Date Recorded In the past 12 months has [facility] [employer], [employer], or [employer] threatened to shut off services in your [...] any time in the past 12 m [facility], were you homeless or living in a fdc (including now)? No 03/04/2024 Sex and Gender [...] Td Vaccines ( 1 - Tdap) 1979 Pneumococcal Vaccine: 50+ Ye ars (1 of 1 - PCV) 2010 Zoster Vaccines (1 of 2) 2010 COVID-19 [...] this topic Medical Devices Implanted Type Area Sweatband Drummer Device Identifier Shelf Expiration Date Model / Serial / Lot Stent Ureteral Contour Vl 4.8fr X 22-30cm - [id number] Implanted:Qty : 1 on 03/05/2024 by Stanley Gonzalez MD at [facility] Stent Right: Ureter [employer] LUCIUS [id number] 12/07/2026 [id number] 50 / / [id number] Stent Ureteral Contour Vl 4.8fr X 22-30cm - [id number] Implanted:Qty : 1 on 03/05/2024 by Stanley Gonzalez MD at [facility] Stent Right: Ureter [employer] LUCIUS [id number] 12/07/2026 [id number] 50 / / [id number] Procedures Procedure Name Priority Date/Time Associated Diagnosis Comments HEPATITIS C ANTIBODY Routine 03/04/2024 6:42 AM CDT from Last 3 Months or Most Recently Relevant to Health Maintenance Results * HEPATITIS C ANTIBODY W/REFLEX (03/04/2024 6:42 AM CDT) HEPATITIS C AB NON-REACTI VE NON-REACTI VE 03/04/2024 8:53 AM CDT [facility] 03/04/2024 6:42 AM CDT us Moses Leslie MD LABORATORY Final Result [facility] [address] [place] [address], [place] [phone] from Last 3 Months or Most Recently Relevant to Health Maintenance Insurance [facility] Advance Directives * Full Code (Latest Code Status on File) Date Activated Date Inactivated Comments 03/03/2024 9:23 PM 2024 2:50 PM Care Teams Joint Cleaning Machine Operator Relationship Specialty Start Date End Date Carlos Ventura MD [address] [place] [address] PCP - General INTERNAL MEDICINE 03/03/24
--- NOTE | 2024-11-08 06:44 | P.PNAN_ITS ---
Anes - Initial Pre Proc Eval Procedure: Operation Date: 11/08/24 07:30 Proposed Procedures p Right Ureteroscopy with Laser Stone Extraction, Right Stent Exchange - Alexis King MD Date/Time: 11/08/24 06:44 Surgeon: Alexis King MD Pre Op Diagnosis: Rt Renal Kidney Stone Patient Data Age: 64 Gender: M Height: 1.7 m Weight: 90.9 kg Allergies Allergy/AdvReac Type Severity Reaction Status Date / Time No Known Allergies Allergy Verified 11/07/24 08:44 Home Medications ?Medication ?Instructions ?Recorded ?Confirmed ?Type fluticasone fur. 100 mcg-umeclid 1 inh inhalation DAILY 08/23/24 11/07/24 History 62.5 mcg-vilant 25 mcg inhalat.powder (Trelegy Ellipta) fluticasone propionate 50 1 spray intranasal DAILY 08/23/24 10/26/24 History mcg/actuation nasal spray,suspension metoprolol succinate 25 mg 25 mg PO HS 08/23/24 10/26/24 History tablet,extended release 24 hr montelukast 10 mg tablet 10 mg PO DAILY 08/23/24 10/26/24 History omeprazole 40 mg capsule,delayed 40 mg PO DAILY 08/23/24 10/26/24 History release oxybutynin chloride 5 mg tablet 5 mg PO BID PRN bladder spasms #30 09/16/24 10/26/24 Rx tabs tramadol 50 mg tablet 50 mg PO Q6H PRN pain #20 tabs 09/16/24 10/26/24 Rx Patient hx anesthesia problems: none Family hx anesthesia problems: none Results Review: All pre-operative results and documents have been reviewed as part of the pre- operative evaluation. [facility] Past Medical History Medical History (Updated 11/08/24 @ 06:44 by Nitish Rea DO) CKD (chronic kidney disease) Hypertension COPD (chronic obstructive pulmonary disease) GERD (gastroesophageal reflux disease) Nephrolithiasis Obstructive uropathy Surgical History Surgical History S/P cystoscopy with ureteral stent placement Family History Family History Father Kidney disease Mother COPD (chronic obstructive pulmonary disease) Social History Social History (Updated 11/08/24 @ 06:53 by Nitish Rea DO) Smoking status: Never smoker Second hand tobacco smoke exposure: Yes Alcohol intake: current Alcohol use details: vodka -2-3 drink/day Substance use: never Do You Feel Safe in your Home?: Yes Lack of Transportation: No Lack of Food: Never True Current Housing: I Have Housing Concerned About Future Housing: No Difficulty Paying Gas/Electric Bills: No Difficulty Paying for Meds: No Currently Unemployed: No Education: High School Diploma/GED Difficulty w/ Childcare or Family Care: No Living arrangements: with family Occupation/Education: occupation Gender identity (if verbalized by the patient): Male Spiritual care concerns: No Agree to blood products: Yes Anes - Eval Final PreProcedure Day of Procedure 11/08/24 06:44 Patient weight: obese Heart: regular rate and rhythm Lungs: clear to auscultation Airway: Mallampati scale class II and special considerations poor dentition Neurological: alert and oriented Last oral intake: >/= 8 hours ASA classification: III Emergent: no Anesthetic plan: proceed Anesthesia type and monitoring: general LMA and standard monitoring Results Review: All pre-operative results and documents have been reviewed as part of the pre- operative evaluation. Informed Consent: The patient's anesthetic plan and its attendant risks and benefits were discussed with the patient/family/POA. Questions were solicited and answers provided to the satisfaction of the patient/family/POA.
[2024-11-08] MEDS: LACTATED RINGERS 1,000 ML 30 ML IV CONT (06:45)
--- NOTE | 2024-11-08 07:17 | WPDHPUPDATE1 ---
History and Physical Update Update Date/Time: 11/08/24 07:17 History and Physical has been reviewed, including an updated exam of the patient. There are NO changes in the patient's condition. Risks, benefits, and alternatives have been discussed and questions answered. Patient agrees to proceed with procedure.
--- NOTE | 2024-11-08 08:48 | P.OP_ITS ---
Procedure Note - Detailed Date of Procedure 11/08/24 Pre-op Diagnosis Rt Renal Kidney Stone Post-op Diagnosis Same Procedure Performed CYSTOSCOPY RIGHT RETROGRADE PYELOGRAM RIGHT URETEROSCOPY WITH CVAC STONE EXTRACTION HENCE STENT EXCHANGE 4.8 IRISH CONTOUR Surgeon Alexis King MD Anesthesia General Description of Procedure Patient was taken to the operative suite correctly identified. Once anesthesia was obtained was placed in dorsal lithotomy position and prepped draped usual sterile fashion. Twenty-two Burundian scope was inserted into the bladder. The prior stent was grasped brought in meatus. A wire was placed through the stent up into the kidney. Second wire was then placed. The 36 cm ureteral access sheath was then inserted. The continuous vac ureteral scope was inserted up into the kidney. The stone was visualized. Using the 200 micron fiber the stone was fragmented dusted and using the CVAC the stones were retrieved. Very few small fragments were left. Pyelogram was then performed to confirm placement of the stent. 4.8 Burundian contour stent was then placed with the prox imal end coiled in the renal pelvis and the distal in the bladder. Bladder was drained. 2% viscous lidocaine was inserted into the urethra patient is taken recovery stable condition. This completes dictation. Please send a copy of op note to my office. Estimated Blood Loss 0 Drains Yes Packing No Pathology Yes Complications No immediate complications Condition Stable Disposition PACU
== END 2024-11-08 10:11 | disposition home or self-care (01) ==
PROVIDERS: PCP Internal Medicine; Visit Provider Urology
PROC: (CPT 52352; principal; 2024-11-08 07:30)
DX: N20.0 Calculus of kidney (principal); I12.9 Hypertensive chronic kidney disease with stage 1 through stage 4 chronic kidney disease, or unspecified chronic kidney disease; N18.9 Chronic kidney disease, unspecified; J44.9 Chronic obstructive pulmonary disease, unspecified; K21.9 Gastro-esophageal reflux disease without esophagitis; E66.9 Obesity, unspecified; Z68.31 Body mass index [BMI] 31.0-31.9, adult; Z79.51 Long term (current) use of inhaled steroids; Z79.891 Long term (current) use of opiate analgesic; Z98.890 Other specified postprocedural states; Z96.0 Presence of urogenital implants; Z87.448 Personal history of other diseases of urinary system
CPT/HCPCS: C9761; 74420; 82365; 88300; C1747; C1769; C1894; C2617; J1100; J2250; J2405; J2704; J3010; J7120

== ENCOUNTER 2024-11-18 10:17 | Outpatient (CLI) | payer BC, SELFPAY ==
[2024-11-18 13:15] LABS: Hemoglobin 12.3 g/dL (14.0-18.0); Mean Corpuscular HGB Conc 31.5 g/dL (32-36); Mean Corpuscular Hemoglobin 29.2 pg (27.0-31.0); Mean Corpuscular Volume 92.6 fL (78.0-102.0); Mean Platelet Volume 11.3 fl (8.7-11.0); Platelet Count Result 353 K/mm3 (150-420); Red Blood Count 4.21 M/mm3 (4.70-6.10); Red Cell Distribution Width 15.4 % (11.6-14.4); White Blood Count 14.6 K/mm3 (4.8-10.8)
[2024-11-18 13:40] LABS: Albumin Level 2.6 g/dL (3.4-5.0); Alkaline Phosphatase 194 U/L (46-116); Anion Gap 10 mmol/L (4-12); Bilirubin,Total 0.3 mg/dL (0.00-1.00); Blood Urea Nitrogen 51 mg/dL (7-18); Calcium 8.8 mg/dL (8.5-10.1); Carbon Dioxide 25 mmol/L (21-32); Chloride 103 mmol/L (98-108); Estimated Glomerular Filt Rate 13; Glucose 115 mg/dL (70-99); Osmolality Calculated 300 mOsm/kg (285-295); Phosphorus 4.4 mg/dL (2.6-4.7); Potassium 4.8 mmol/L (3.5-5.1); Sodium 138 mmol/L (136-145); Thyroid Stimulating Hormone 2.57 uIU/mL (0.36-3.74); Total Protein 7.3 g/dL (6.4-8.2)
[2024-11-18 13:57] LABS: Aspartate Amino Transferase 43 U/L (15-37)
[2024-11-18 14:00] LABS: CRP 20.8 mg/dL (0.0-0.9)
[2024-11-18 14:02] LABS: Alanine Aminotransferase 34 U/L (16-63)
--- OUTSIDE RECORDS SUMMARY | 2024-11-19 13:33 | XMS_ITS | Clinical Summary ---
Author Organization [facility] Address [address] [place] [address] Care Team Providers Care Scale Attendant Name Role Phone Carlos Ventura MD Primary Care Provider [phone] Allergies No known active allergies Medications Fluticasone-Um [...] 0.6 oz pure alcohol) vodka every evening [facility] Utilities Answer Date Recorded In the past 12 months has [facility] [employer], [employer], or [employer] threatened to shut off services in your [...] any time in the past 12 m [facility], were you homeless or living in a penitentiary (including now)? No 03/04/2024 Sex and Gender [...] this topic Medical Devices Implanted Type Area Cheesemaking Laborer Device Identifier Shelf Expiration Date Model / Serial / Lot Stent Ureteral Contour Vl 4.8fr X 22-30cm - [id number] Implanted:Qty : 1 on 03/05/2024 by Stanley Gonzalez MD at [facility] Stent Right: Ureter [employer] LUCIUS [id number] 12/07/2026 [id number] 50 / / [id number] Stent Ureteral Contour Vl 4.8fr X 22-30cm - [id number] Implanted:Qty : 1 on 03/05/2024 by Stanley Gonzalez MD at [facility] Stent Right: Ureter [employer] LUCIUS [id number] 12/07/2026 [id number] 50 / / [id number] Procedures Procedure Name Priority Date/Time Associated Diagnosis Comments HEPATITIS C ANTIBODY Routine 03/04/2024 6:42 AM CDT from Last 3 Months or Most Recently Relevant to Health Maintenance Results * HEPATITIS C ANTIBODY W/REFLEX (03/04/2024 6:42 AM CDT) HEPATITIS C AB NON-REACTI VE NON-REACTI VE 03/04/2024 8:53 AM CDT [facility] 03/04/2024 6:42 AM CDT us Moses Leslie MD LABORATORY Final Result [facility] [address] [place] [address], [place] [phone] from Last 3 Months or Most Recently Relevant to Health Maintenance Insurance [facility] Advance Directives * Full Code (Latest Code Status on File) Date Activated Date Inactivated Comments 03/03/2024 9:23 PM 2024 2:50 PM Care Teams Scale Attendant Relationship Specialty Start Date End Date Carlos Ventura MD [address] [place] [address] PCP - General INTERNAL MEDICINE 03/03/24
[2024-11-20 07:59] LABS: Parathyroid Intact 123 pg/mL (16-77)
== END 2024-11-18 10:18 | disposition home or self-care (01) ==
LOC: CHSLAB 12:52
PROVIDERS: PCP Internal Medicine; Visit Provider Internal Medicine
DX: R51.9 Headache, unspecified (principal); I10 Essential (primary) hypertension; N18.30 Chronic kidney disease, stage 3 unspecified
CPT/HCPCS: 36415; 80053; 83970; 84100; 84443; 85027; 86140

== ENCOUNTER 2024-11-21 16:41 | Outpatient (CLI) | payer BC, SELFPAY ==
[2024-11-21 16:57] LABS: Add Urine Microscopic? YES; Appearance Urine Clear (Clear); Bilirubin Urine Negative (Negative); Blood Urine 3+ (Negative); Color Urine Light Yellow (Yellow); Glucose Urine UA Trace (Negative); Hematocrit 35.7 % (40.0-54.0); Hemoglobin 11.4 g/dL (14.0-18.0); Ketones Urine Negative (Negative); Leukocyte Esterase Ur 1+ (Negative); Mean Corpuscular HGB Conc 31.9 g/dL (32-36); Mean Corpuscular Hemoglobin 29.1 pg (27.0-31.0); Mean Corpuscular Volume 91.1 fL (78.0-102.0); Mean Platelet Volume 9.7 fl (8.7-11.0); Nitrate Urine Negative (Negative); Platelet Count Result 441 K/mm3 (150-420); Protein Urine 2+ (Negative); Red Blood Count 3.92 M/mm3 (4.70-6.10); Red Cell Distribution Width 15.9 % (11.6-14.4); Urobilinogen Urine 0.2 mg/dL (0.2-1.0); pH Urine 5.5 (5.0-8.0)
--- OUTSIDE RECORDS SUMMARY | 2024-11-21 16:57 | XMS_ITS | Clinical Summary ---
Author Organization [facility] Address [address] [place] [address] Care Team Providers Care Oil And Gas Principal Name Role Phone Carlos Ventura MD Primary Care Provider [phone] Allergies No known active allergies Medications Fluticasone-Um [...] 0.6 oz pure alcohol) vodka every evening [facility] Utilities Answer Date Recorded In the past 12 months has [facility] [employer], [employer], or [employer] threatened to shut off services in your [...] any time in the past 12 m [facility], were you homeless or living in a custodial (including now)? No 03/04/2024 Sex and Gender [...] this topic Medical Devices Implanted Type Area Dog Breeder Device Identifier Shelf Expiration Date Model / Serial / Lot Stent Ureteral Contour Vl 4.8fr X 22-30cm - [id number] Implanted:Qty : 1 on 03/05/2024 by Stanley Gonzalez MD at [facility] Stent Right: Ureter [employer] LUCIUS [id number] 12/07/2026 [id number] 50 / / [id number] Stent Ureteral Contour Vl 4.8fr X 22-30cm - [id number] Implanted:Qty : 1 on 03/05/2024 by Stanley Gonzalez MD at [facility] Stent Right: Ureter [employer] LUCIUS [id number] 12/07/2026 [id number] 50 / / [id number] Procedures Procedure Name Priority Date/Time Associated Diagnosis Comments HEPATITIS C ANTIBODY Routine 03/04/2024 6:42 AM CDT from Last 3 Months or Most Recently Relevant to Health Maintenance Results * HEPATITIS C ANTIBODY W/REFLEX (03/04/2024 6:42 AM CDT) HEPATITIS C AB NON-REACTI VE NON-REACTI VE 03/04/2024 8:53 AM CDT [facility] 03/04/2024 6:42 AM CDT us Moses Leslie MD LABORATORY Final Result [facility] [address] [place] [address], [place] [phone] from Last 3 Months or Most Recently Relevant to Health Maintenance Insurance [facility] Advance Directives * Full Code (Latest Code Status on File) Date Activated Date Inactivated Comments 03/03/2024 9:23 PM 2024 2:50 PM Care Teams Oil And Gas Principal Relationship Specialty Start Date End Date Carlos Ventura MD [address] [place] [address] PCP - General INTERNAL MEDICINE 03/03/24
[2024-11-21 17:06] LABS: White Blood Count 22.6 K/mm3 (4.8-10.8)
[2024-11-21 17:07] LABS: Bacteria Urine 1+ /hpf; RBC Urine >75 /hpf (0-2); Squamous Epithelial Cell Urine Few /hpf (Few)
[2024-11-21 17:20] LABS: Alanine Aminotransferase 77 U/L (16-63); Albumin Level 2.8 g/dL (3.4-5.0); Alkaline Phosphatase 193 U/L (46-116); Anion Gap 15 mmol/L (4-12); Aspartate Amino Transferase 36 U/L (15-37); Bilirubin,Total 0.3 mg/dL (0.00-1.00); Blood Urea Nitrogen 91 mg/dL (7-18); Calcium 8.3 mg/dL (8.5-10.1); Carbon Dioxide 17 mmol/L (21-32); Chloride 105 mmol/L (98-108); Estimated Glomerular Filt Rate 14; Glucose 150 mg/dL (70-99); Osmolality Calculated 315 mOsm/kg (285-295); Potassium 5.2 mmol/L (3.5-5.1); Sodium 137 mmol/L (136-145); Total Protein 7.1 g/dL (6.4-8.2)
[2024-11-24 11:54] LABS: ANCA Screen NEGATIVE (NEGATIVE)
[2024-11-24 20:24] LABS: PEth 16:0/18:1 (PLPEth) 27 ng/mL (<20); PEth 16:0/18:2 (PLPEth) NEGATIVE ng/mL (<20)
== END 2024-11-21 16:42 | disposition home or self-care (01) ==
LOC: CHSLAB 16:44
PROVIDERS: PCP Internal Medicine; Visit Provider Internal Medicine
DX: R94.4 Abnormal results of kidney function studies (principal); R74.01 Elevation of levels of liver transaminase levels
CPT/HCPCS: 36415; 80053; 80321; 81001; 85027; 86036; 86038; G0480

== ENCOUNTER 2024-12-05 14:58 | Outpatient (CLI) | payer BC, SELFPAY ==
--- NOTE | ~2024-12-05 | XR_ITS ---
XR abdomen/kub 1V Ordering provider: Alexis King MD History: . Hugo Rt sided kidney stone with stent placement . Comparison: None. FINDINGS: BOWEL: Nonobstructive bowel gas pattern. ORGANOMEGALY: None. SIGNIFICANT PATHOLOGIC CALCIFICATIONS: Right double-J stent is noted. Fecal material is overlapping t he right kidney. OTHER: No free air is seen under the diaphragm. IMPRESSION: NO ACUTE ABDOMINAL FINDINGS. Right double-J stent. No definite stones seen. Noncontrast CT is better for evaluation. Reviewed, dictated and finalized at location A. IMPRESSION: NO ACUTE ABDOMINAL FINDINGS. Right double-J stent. No definite stones seen. Noncontrast CT is better for nesha luation.
--- NOTE | ~2024-12-05 | CT_ITS ---
Non-contrast CT scan of the Abdomen and Pelvis Clinical indication: Kidney stone Technique: 2.5 mm axial scans were obtained through the abdomen and pelvis without intravenous or or al contrast. Dose reduction technique was used on this scan by utilizing automated exposure control a nd iterative reconstruction technique. The dose-length product (DLP) was 746.59 mGy-cm. COMPARISON: 10/10/2024 Findings: Images through the lung bases reveal no abnormalities. There is mild right hydroureteronephrosis with right ureteral stent in place. No stones seen in eithe r side. Left kidney mildly atrophic without hydronephrosis. Subcentimeter presumed left hyperdense re nal cyst is unchanged. The liver, spleen, pancreas, gallbladder, and adrenals appear normal. There are atherosclerotic calci fications of the aorta. . There is no evidence of bowel obstruction. There is sigmoid diverticulosis. Images through the pelvis were performed. There is no evidence of ascites or lymphadenopathy. Urinary bladder unremarkable. No pelvic mass seen. No ascites. Hiatal fat-containing inguinal hernias are pr esent. Impression: Right ureteral stent with mild right hydroureteronephrosis. No stones identified. Small bilateral fat-containing inguinal hernias. Reviewed, dictated and finalized at location . Impression: Right ureteral stent with mild right hydroureteronephrosis. No stones identifie d. Small bilateral fat-containing inguinal hernias.
== END 2024-12-05 14:59 | disposition home or self-care (01) ==
LOC: GOSHIMG 14:58
PROVIDERS: PCP Urology; Visit Provider Urology
DX: N20.0 Calculus of kidney (principal); K40.20 Bilateral inguinal hernia, without obstruction or gangrene, not specified as recurrent
CPT/HCPCS: 74018; 74176

== ENCOUNTER 2025-01-04 16:04 | Outpatient (CLI) | payer BC, SELFPAY ==
[2025-01-04 16:18] LABS: Hemoglobin 10.9 g/dL (14.0-18.0); Mean Corpuscular HGB Conc 32.1 g/dL (32-36); Mean Corpuscular Hemoglobin 28.5 pg (27.0-31.0); Mean Platelet Volume 9.8 fl (8.7-11.0); Platelet Count Result 346 K/mm3 (150-420); Red Blood Count 3.82 M/mm3 (4.70-6.10); Red Cell Distribution Width 14.2 % (11.6-14.4); White Blood Count 15.8 K/mm3 (4.8-10.8)
[2025-01-04 16:35] LABS: Alanine Aminotransferase 24 U/L (6-50); Alkaline Phosphatase 169 U/L (38-126); Anion Gap 12 mmol/L (4-12); Aspartate Amino Transferase 34 U/L (17-59); Bilirubin,Total 0.4 mg/dL (0.2-1.3); Blood Urea Nitrogen 60 mg/dL (9-20); CRP 7.6 mg/dL (<1.0); Calcium 8.8 mg/dL (8.4-10.2); Carbon Dioxide 16 mmol/L (22-30); Chloride 110 mmol/L (98-107); Estimated Glomerular Filt Rate 14; Glucose 132 mg/dL (65-110); Osmolality Calculated 304 mOsm/kg (285-295); Potassium 4.6 mmol/L (3.4-5.0); Sodium 138 mmol/L (137-145); Total Protein 7.8 g/dL (6.3-8.2)
== END 2025-01-04 16:05 | disposition home or self-care (01) ==
LOC: CHSLAB 16:07
PROVIDERS: PCP Internal Medicine; Visit Provider Internal Medicine
DX: J30.9 Allergic rhinitis, unspecified (principal); R53.83 Other fatigue
CPT/HCPCS: 36415; 80053; 85027; 86140

== ENCOUNTER 2025-01-11 15:24 | Outpatient (CLI) | payer BC, SELFPAY ==
[2025-01-11 16:18] LABS: Albumin Level 3.9 g/dL (3.5-5.1); Anion Gap 12 mmol/L (4-12); Blood Urea Nitrogen 67 mg/dL (9-20); Calcium 8.7 mg/dL (8.4-10.2); Carbon Dioxide 14 mmol/L (22-30); Chloride 115 mmol/L (98-107); Estimated Glomerular Filt Rate 11; Glucose 80 mg/dL (65-110); Osmolality Calculated 310 mOsm/kg (285-295); Phosphorus 6.5 mg/dL (2.5-4.5); Potassium 5.6 mmol/L (3.4-5.0); Sodium 141 mmol/L (137-145)
== END 2025-01-11 15:25 | disposition home or self-care (01) ==
LOC: CHSLAB 15:27
PROVIDERS: PCP Internal Medicine; Visit Provider Internal Medicine Nephrology
DX: N17.9 Acute kidney failure, unspecified (principal); I12.9 Hypertensive chronic kidney disease with stage 1 through stage 4 chronic kidney disease, or unspecified chronic kidney disease
CPT/HCPCS: 36415; 80069

== ENCOUNTER 2025-02-05 11:01 | Emergency (ER) | payer BC, SELFPAY ==
--- NOTE | ~2025-02-05 | XR_ITS ---
XR shoulder RT min 2V 02/05/2025 11:11 Indication: Right shoulder pain Procedure: 3 views right shoulder Comparison: No prior studies for comparison. Findings: There is mild-moderate osteoarthritis of the right glenohumeral joint. No fracture, subluxa tion or dislocation. No soft tissue abnormality. Impression: 1: Mild-moderate right glenohumeral joint osteoarthritis. Reviewed, dictated and finalized at location A. Impression: 1: Mild-moderate right glenohumeral joint osteoarthritis.
[2025-02-05 11:02] VITALS: BP 167/108; PULSE 113; RESP 18; TEMP 36.6; O2SAT 98
--- OUTSIDE RECORDS SUMMARY | 2025-02-05 11:02 | XMS_ITS | Clinical Summary ---
Author Organization [facility] Address [address] [place] [address] Care Team Providers Care Crane Helper Name Role Phone Carlos Ventura MD Primary Care Provider [phone] Allergies No known active allergies Medications Fluticasone-Um [...] 0.6 oz pure alcohol) vodka every evening [facility] Utilities Answer Date Recorded In the past 12 months has [facility] [employer], [employer], or [employer] threatened to shut off services in your [...] any time in the past 12 m [facility], were you homeless or living in a [facility] (including now)? No 03/04/2024 Sex and Gender [...] A M CDT Height 167.6 cm (5' 6) 03/03/2024 8:12 PM CDT Body Mass Index [...] this topic Medical Devices Implanted Type Area Manager Of Compensation Device Identifier Shelf Expiration Date Model / Serial / Lot Stent Ureteral Contour Vl 4.8fr X 22-30cm - [id number] Implanted:Qty : 1 on 03/05/2024 by Stanley Gonzalez MD at [facility] Stent Right: Ureter [employer] LUCIUS [id number] 12/07/2026 [id number] 50 / / [id number] Stent Ureteral Contour Vl 4.8fr X 22-30cm - [id number] Implanted:Qty : 1 on 03/05/2024 by Stanley Gonzalez MD at [facility] Stent Right: Ureter [employer] LUCIUS [id number] 12/07/2026 [id number] 50 / / [id number] Procedures Procedure Name Priority Date/Time Associated Diagnosis Comments HEPATITIS C ANTIBODY Routine 03/04/2024 6:42 AM CDT from Last 3 Months or Most Recently Relevant to Health Maintenance Results * HEPATITIS C ANTIBODY W/REFLEX (03/04/2024 6:42 AM CDT) HEPATITIS C AB NON-REACTI VE NON-REACTI VE 03/04/2024 8:53 AM CDT [facility] 03/04/2024 6:42 AM CDT us Moses Leslie MD LABORATORY Final Result [facility] [address] [place] [address], [place] [phone] from Last 3 Months or Most Recently Relevant to Health Maintenance Insurance [facility] Advance Directives * Full Code (Latest Code Status on File) Date Activated Date Inactivated Comments 03/03/2024 9:23 PM 2024 2:50 PM Care Teams Crane Helper Relationship Specialty Start Date End Date Carlos Ventura MD [address] [place] [address] PCP - General INTERNAL MEDICINE 03/03/24
--- NOTE | 2025-02-05 11:13 | ED.UPPEXIN ---
HPI - Extremity Injury (Upper) General Chief Complaint: Extremity Injury, Upper Stated Complaint: rt. 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 Patient had similar symptom in the past and usually gets better in 1-2 days this 1 is getting worse. He denies any fever, chills, nausea, vomiting, chest pain, shortness of breath or back pain. Patient denies any specific trauma. Related Data Home Medications ?Medication ?Instructions ?Recorded ?Confirmed ?Last Taken ?Type fluticasone fur. 100 mcg-umeclid 1 inh inhalation DAILY 08/23/24 01/23/25 11/07/24 History 62.5 mcg-vilant 25 mcg inhalat.powder (Trelegy Ellipta) fluticasone propionate 50 1 spray intranasal DAILY 08/23/24 01/23/25 11/07/24 History mcg/actuation nasal spray,suspension metoprolol succinate 25 mg 25 mg PO HS 08/23/24 01/23/25 11/07/24 History tablet,extended release 24 hr montelukast 10 mg tablet 10 mg PO DAILY 08/23/24 01/23/25 11/07/24 History omeprazole 40 mg capsule,delayed 40 mg PO DAILY 08/23/24 01/23/25 11/07/24 History release Allergies Allergy/AdvReac Type Severity Reaction Status Date / Time No Known Allergies Allergy Verified 02/05/25 11:02 Review of Systems Review of Systems: All systems reviewed & are unremarkable except as noted in HPI and below PMFSH Past Medical History Medical History CKD (chronic kidney disease) Hypertension COPD (chronic obstructive pulmonary disease) GERD (gastroesophageal reflux disease) Nephrolithiasis Obstructive uropathy Surgical History Surgical History S/P cystoscopy with ureteral stent placement Family History Family History Father Kidney disease Mother COPD (chronic obstructive pulmonary disease) Social History Social History Smoking status: Never smoker Second hand tobacco smoke exposure: Yes Alcohol intake: current Alcohol use details: vodka -2-3 drink/day Substance use: never Do You Feel Safe in your Home?: Yes Lack of Transportation: No Lack of Food: Never True Current Housing: I Have Housing Concerned About Future Housing: No Difficulty Paying Gas/Electric Bills: No Difficulty Paying for Meds: No Currently Unemployed: No Education: High School Diploma/GED Difficulty w/ Childcare or Family Care: No Living arrangements: with family Occupation/Education: occupation Gender identity (if verbalized by the patient): Male Spiritual care concerns: No Agree to blood products: Yes Exam Narrative: General appearance: Well-developed, well-nourished Skin: Normal color Head: Normocephalic, nontraumatic Eyes: Clear conjunctiva ENT: Oropharynx normal, ears normal, nose normal Neck: Supple, nontender Chest and respiratory: Airway patent, no respiratory distress, no accessory muscle use Heart: Regular rate/rhythm Abdomen: Soft, nontender, no organomegaly, quiet bowel sounds Vascular: Normal peripheral pulses, normal capillary refill. Musculoskeletal: Diffuse tenderness right upper back, right shoulder and right upper chest with palpation, no bruises, no swelling, no rash Neurologic: Alert and oriented ?3, CUT OFF SAW OPERATOR PIPE BLANKS is normal as tested, no gross motor deficit Course Vital Signs Vital signs: Vital Signs Temperature 36.6 C 02/05/25 11:02 Pulse Rate 113 H 02/05/25 11:02 Respiratory Rate 18 02/05/25 11:02 Blood Pressure 167/108 H 02/05/25 11:02 Pulse Oximetry 98 02/05/25 11:02 Oxygen Delivery Room Air 02/05/25 11:02 Temperature 36.6 C 02/05/25 11:02 Pulse Rate 113 H 02/05/25 11:02 Respiratory Rate 18 02/05/25 11:02 Blood Pressure 167/108 H 02/05/25 11:02 Pulse Oximetry 98 02/05/25 11:02 Oxygen Delivery Room Air 02/05/25 11:02 MDM - Extremity Injury (Upper) Differential Diagnosis Differential diagnosis: Likely other ( rotator cuff syndrome, strain, sprain, tendinitis) Imaging Data My impression: x-ray of the right shoulder showed no acute abnormalities Critical Care Time Critical Care Time Critical Care Time: No Discharge Plan Discharge Clinical Impression: Acute pain of right shoulder Patient Disposition: Home Condition: Stable Instructions: Shoulder Pain (ED) Additional Instructions: Return if symptoms are worsening , call your family physician for appointment, take Tylenol as as needed for aches and pain, continue home medications. Patient Language: Portuguese Prescriptions: New diclofenac sodium 75 mg tablet,delayed release (DR/EC) 75 mg PO BID PRN (Reason: pain) Qty: 20 0RF cyclobenzaprine 10 mg tablet 10 mg PO TID PRN (Reason: muscle spasm) Qty: 20 0RF No Action montelukast 10 mg tablet 10 mg PO DAILY omeprazole 40 mg capsule,delayed release(DR/EC) 40 mg PO DAILY metoprolol succinate 25 mg tablet extended release 24 hr 25 mg PO HS fluticasone propionate 50 mcg/actuation spray,suspension 1 spray intranasal DAILY Trelegy Ellipta 100-62.5-25 mcg blister with device 1 inh inhalation DAILY tramadol 50 mg tablet 50 mg PO Q6H PRN (Reason: pain) Qty: 20 0RF oxybutynin chloride 5 mg tablet 5 mg PO BID PRN (Reason: bladder spasms) Qty: 30 0RF Rx Instructions: Take as needed for bladder spasms tramadol 50 mg tablet 50 mg PO Q6H PRN (Reason: pain) Qty: 20 0RF nitrofurantoin monohyd/m-cryst [Macrobid] 100 mg capsule 100 mg PO Q12H 3 Days Qty: 6 0RF Rx Instructions: must administer with a meal/food Follow-up/Referrals: Carlos Ventura MD [Primary Care Provider] - Stand Alone Forms: Work/School Release IP
--- OUTSIDE RECORDS SUMMARY | 2025-02-05 11:27 | XMS_ITS | Clinical Summary ---
Author Organization [facility] Address [address] [place] [address] Care Team Providers Care Manager Strategic Alliances Name Role Phone Carlos Ventura MD Primary Care Provider [phone] Allergies No known active allergies Medications Fluticasone-Um [...] 0.6 oz pure alcohol) vodka every evening [facility] Utilities Answer Date Recorded In the past 12 months has [facility] [employer], [employer], or [employer] threatened to shut off services in your [...] any time in the past 12 m [facility], were you homeless or living in a alf (including now)? No 03/04/2024 Sex and Gender [...] this topic Medical Devices Implanted Type Area Pack Mule Worker Device Identifier Shelf Expiration Date Model / Serial / Lot Stent Ureteral Contour Vl 4.8fr X 22-30cm - [id number] Implanted:Qty : 1 on 03/05/2024 by Stanley Gonzalez MD at [facility] Stent Right: Ureter [employer]CIUS [id number] 12/07/2026 [id number] 50 / / [id number] Stent Ureteral Contour Vl 4.8fr X 22-30cm - [id number] Implanted:Qty : 1 on 03/05/2024 by Stanley Gonzalez MD at [facility] Stent Right: Ureter [employer] LUCIUS [id number] 12/07/2026 [id number] 50 / / [id number] Procedures Procedure Name Priority Date/Time Associated Diagnosis Comments HEPATITIS C ANTIBODY Routine 03/04/2024 6:42 AM CDT from Last 3 Months or Most Recently Relevant to Health Maintenance Results * HEPATITIS C ANTIBODY W/REFLEX (03/04/2024 6:42 AM CDT) HEPATITIS C AB NON-REACTI VE NON-REACTI VE 03/04/2024 8:53 AM CDT [facility] 03/04/2024 6:42 AM CDT us Moses Leslie MD LABORATORY Final Result [facility] [address] [place] [address], [place] [phone] from Last 3 Months or Most Recently Relevant to Health Maintenance Insurance [facility] Advance Directives * Full Code (Latest Code Status on File) Date Activated Date Inactivated Comments 03/03/2024 9:23 PM 2024 2:50 PM Care Teams Manager Strategic Alliances Relationship Specialty Start Date End Date Carlos Ventura MD [address] [place] [address] PCP - General INTERNAL MEDICINE 03/03/24
[2025-02-05 11:37] VITALS: BP 155/98; PULSE 95; RESP 18; TEMP 36.6; O2SAT 98
== END 2025-02-05 11:37 | disposition home or self-care (01) ==
LOC: CHSED 11:26
PROVIDERS: Emergency Provider Emergency Medicine; PCP Internal Medicine
DX: M25.511 Pain in right shoulder (principal); I12.9 Hypertensive chronic kidney disease with stage 1 through stage 4 chronic kidney disease, or unspecified chronic kidney disease; N18.9 Chronic kidney disease, unspecified
CPT/HCPCS: 73030; 99283

== ENCOUNTER 2025-02-10 13:22 | Outpatient (CLI) | payer BC, SELFPAY ==
--- OUTSIDE RECORDS SUMMARY | 2025-02-10 13:26 | XMS_ITS | Clinical Summary ---
Author Organization [facility] Address [address] [place] [address] Care Team Providers Care Grade Foreman Name Role Phone Carlos Ventura MD Primary Care Provider [phone] Allergies No known active allergies Medications Fluticasone-Um [...] 0.6 oz pure alcohol) vodka every evening [facility] Utilities Answer Date Recorded In the past 12 months has [facility] [employer], [employer], or [employer] threatened to shut off services in your [...] any time in the past 12 m [facility], were you homeless or living in a detention (including now)? No 03/04/2024 Sex and Gender [...] this topic Medical Devices Implanted Type Area Laboratory Monitor Device Identifier Shelf Expiration Date Model / Serial / Lot Stent Ureteral Contour Vl 4.8fr X 22-30cm - [id number] Implanted:Qty : 1 on 03/05/2024 by Stanley Gonzalez MD at [facility] Stent Right: Ureter [employer] LUCIUS [id number] 12/07/2026 [id number] 50 / / [id number] Stent Ureteral Contour Vl 4.8fr X 22-30cm - [id number] Implanted:Qty : 1 on 03/05/2024 by Stanley Gonzalez MD at [facility] Stent Right: Ureter [employer] LUCIUS [id number] 12/07/2026 [id number] 50 / / [id number] Procedures Procedure Name Priority Date/Time Associated Diagnosis Comments HEPATITIS C ANTIBODY Routine 03/04/2024 6:42 AM CDT from Last 3 Months or Most Recently Relevant to Health Maintenance Results * HEPATITIS C ANTIBODY W/REFLEX (03/04/2024 6:42 AM CDT) HEPATITIS C AB NON-REACTI VE NON-REACTI VE 03/04/2024 8:53 AM CDT [facility] 03/04/2024 6:42 AM CDT us Moses Leslie MD LABORATORY Final Result [facility] [address] [place] [address], [place] [phone] from Last 3 Months or Most Recently Relevant to Health Maintenance Insurance [facility] Advance Directives * Full Code (Latest Code Status on File) Date Activated Date Inactivated Comments 03/03/2024 9:23 PM 2024 2:50 PM Care Teams Grade Foreman Relationship Specialty Start Date End Date Carlos Ventura MD [address] [place] [address] PCP - General INTERNAL MEDICINE 03/03/24
[2025-02-10 13:37] LABS: Hematocrit 33.9 % (40.0-54.0); Hemoglobin 10.7 g/dL (14.0-18.0); Immature Platelet Fraction Pct 0.9 % (1.0-7.0); Mean Corpuscular HGB Conc 31.6 g/dL (32-36); Mean Corpuscular Hemoglobin 27.8 pg (27.0-31.0); Mean Corpuscular Volume 88.1 fL (78.0-102.0); Platelet Count Result 606 K/mm3 (150-420); Red Blood Count 3.85 M/mm3 (4.70-6.10); White Blood Count 22.7 K/mm3 (4.8-10.8)
[2025-02-10 13:49] LABS: Alanine Aminotransferase 38 U/L (6-50); Albumin Level 4.1 g/dL (3.5-5.1); Alkaline Phosphatase 230 U/L (38-126); Anion Gap 14 mmol/L (4-12); Aspartate Amino Transferase 60 U/L (17-59); Bilirubin,Total 0.4 mg/dL (0.2-1.3); Blood Urea Nitrogen 93 mg/dL (9-20); CRP 6.9 mg/dL (<1.0); Calcium 10.1 mg/dL (8.4-10.2); Carbon Dioxide 16 mmol/L (22-30); Chloride 108 mmol/L (98-107); Estimated Glomerular Filt Rate 13; Glucose 122 mg/dL (65-110); Osmolality Calculated 315 mOsm/kg (285-295); Potassium 5.6 mmol/L (3.4-5.0); Sodium 138 mmol/L (137-145); Total Protein 8.9 g/dL (6.3-8.2); Uric Acid 8.7 mg/dL (3.5-8.5)
== END 2025-02-10 13:23 | disposition home or self-care (01) ==
LOC: CHSLAB 13:24
PROVIDERS: PCP Internal Medicine; Visit Provider Internal Medicine Nephrology
DX: M25.511 Pain in right shoulder (principal); R79.89 Other specified abnormal findings of blood chemistry
CPT/HCPCS: 36415; 80053; 80069; 84550; 85027; 85055; 86140

== ENCOUNTER 2025-02-15 10:47 | Outpatient (CLI) | payer BC, SELFPAY ==
--- NOTE | ~2025-02-15 | XR_ITS ---
Cervical Spine: AP, lateral, open-mouth views Clinical History: Pain Findings: There is straightening of the normal cervical lordosis. No fracture or sublocation. There i s moderate degenerative disc narrowing throughout the cervical spine. There is moderate facet arthrop athy throughout. Pre-vertebral soft tissues are unremarkable. Impression: Moderate degenerative spondylosis, as above. Reviewed, dictated and finalized at location . Impression: Moderate degenerative spondylosis, as above.
[2025-02-15 11:07] LABS: Hematocrit 37.8 % (40.0-54.0); Hemoglobin 12.0 g/dL (14.0-18.0); Mean Corpuscular HGB Conc 31.7 g/dL (32-36); Mean Corpuscular Hemoglobin 27.8 pg (27.0-31.0); Mean Corpuscular Volume 87.5 fL (78.0-102.0); Platelet Count Result 640 K/mm3 (150-420); Red Blood Count 4.32 M/mm3 (4.70-6.10); White Blood Count 24.0 K/mm3 (4.8-10.8)
--- OUTSIDE RECORDS SUMMARY | 2025-02-15 11:16 | XMS_ITS | Clinical Summary ---
Author Organization [facility] Address [address] [place] [address] Care Team Providers Care Senior Office Assistant Name Role Phone Carlos Ventura MD Primary Care Provider [phone] Allergies No known active allergies Medications Fluticasone-Um [...] 0.6 oz pure alcohol) vodka every evening [facility] Utilities Answer Date Recorded In the past 12 months has [facility] [employer], or [employer] threatened to shut off services in your [...] any time in the past 12 m [facility], were you homeless or living in a intermediate (including now)? No 03/04/2024 Sex and Gender [...] this topic Medical Devices Implanted Type Area Student Education Specialist Device Identifier Shelf Expiration Date Model / Serial / Lot Stent Ureteral Contour Vl 4.8fr X 22-30cm - [id number] Implanted:Qty : 1 on 03/05/2024 by Stanley Gonzalez MD at [facility] Stent Right: Ureter [employer]US [id number] 12/07/2026 [id number] 50 / / [id number] Stent Ureteral Contour Vl 4.8fr X 22-30cm - [id number] Implanted:Qty : 1 on 03/05/2024 by Stanley Gonzalez MD at [facility] Stent Right: Ureter [employer] LUCIUS [id number] 12/07/2026 [id number] 50 / / [id number] Procedures Procedure Name Priority Date/Time Associated Diagnosis Comments HEPATITIS C ANTIBODY Routine 03/04/2024 6:42 AM CDT from Last 3 Months or Most Recently Relevant to Health Maintenance Results * HEPATITIS C ANTIBODY W/REFLEX (03/04/2024 6:42 AM CDT) HEPATITIS C AB NON-REACTI VE NON-REACTI VE 03/04/2024 8:53 AM CDT [facility] 03/04/2024 6:42 AM CDT us Moses Leslie MD LABORATORY Final Result [facility] [address] [place] [address], [place] [phone] from Last 3 Months or Most Recently Relevant to Health Maintenance Insurance [facility] Advance Directives * Full Code (Latest Code Status on File) Date Activated Date Inactivated Comments 03/03/2024 9:23 PM 2024 2:50 PM Care Teams Senior Office Assistant Relationship Specialty Start Date End Date Carlos Ventura MD [address] [place] [address] PCP - General INTERNAL MEDICINE 03/03/24
[2025-02-15 11:34] LABS: Alanine Aminotransferase 61 U/L (6-50); Albumin Level 4.3 g/dL (3.5-5.1); Alkaline Phosphatase 250 U/L (38-126); Anion Gap 13 mmol/L (4-12); Aspartate Amino Transferase 48 U/L (17-59); Bilirubin,Total 0.5 mg/dL (0.2-1.3); Blood Urea Nitrogen 75 mg/dL (9-20); CRP 5.9 mg/dL (<1.0); Calcium 9.7 mg/dL (8.4-10.2); Carbon Dioxide 14 mmol/L (22-30); Chloride 111 mmol/L (98-107); Estimated Glomerular Filt Rate 15; Glucose 113 mg/dL (65-110); Osmolality Calculated 309 mOsm/kg (285-295); Potassium 4.9 mmol/L (3.4-5.0); Sodium 138 mmol/L (137-145); Total Protein 8.3 g/dL (6.3-8.2); Uric Acid 9.0 mg/dL (3.5-8.5)
[2025-02-15 15:50] LABS: Add Urine Microscopic? YES; Appearance Urine Clear (Clear); Glucose Urine UA Trace (Negative); Leukocyte Esterase Ur 1+ (Negative); Nitrate Urine Negative (Negative); Specific Grav Ur 1.025 (1.010-1.020)
[2025-02-15 16:35] LABS: Prostate Specific Antigen 0.8 ng/mL (< OR = 4.0)
== END 2025-02-15 10:48 | disposition home or self-care (01) ==
PROVIDERS: PCP Internal Medicine; Visit Provider Internal Medicine
DX: N18.4 Chronic kidney disease, stage 4 (severe) (principal); M10.9 Gout, unspecified; M54.2 Cervicalgia; N39.0 Urinary tract infection, site not specified; N42.9 Disorder of prostate, unspecified
CPT/HCPCS: 36415; 72040; 80053; 81001; 84153; 84550; 85027; 86140; 87086

== ENCOUNTER 2025-02-28 14:09 | Emergency (ER) | payer BC, SELFPAY ==
[2025-02-28] VITALS (15 sets, daily range): BP systolic 123–162; BP diastolic 76–97; PULSE 94–117; RESP 12–21; TEMP 36.3; O2SAT 95–100
--- NOTE | ~2025-02-28 | CT_ITS ---
CLINICAL INDICATION: Abnormal imaging with left flank pain COMPARISON: Noncontrast enhanced CT examination of the abdomen and pelvis performed 2 hours earlier. TECHNIQUE: Multiple contiguous axial images of the abdomen and pelvis were performed following the ad ministration of with 100 mL Omnipaque-350 intravenous contrast The dose-length product (DLP) was 509.10 mGy-cm. Automated exposure control and iterative reconstruction technique were employed. FINDINGS/OBSERVATIONS: Visualized lower thorax: The bilateral lung bases are clear. The heart is of normal size, without pericardial effusion. Small hiatal hernia is present. Liver: The liver demonstrates homogeneous enhancement and is enlarged measuring 20 cm in longitudinal dimens ion. Gallbladder and biliary system: The gallbladder is only minimally distended, and otherwise unremarkable. Pancreas: The pancreas enhances homogeneously without ductal dilatation. Spleen: Two multilobulated nonenhancing well-circumscribed lesions within the spleen, corresponding to the ab normality seen on noncontrast enhanced imaging performed earlier today. This is an interval finding f rom most recent CT examination dated 12/05/2024. No discrete rim enhancement is identified to suggest an abscess. No calcifications are noted. No gas is present Patient denies any history of trauma. There are 2 discrete well-circumscribed foci, connected a multilobular focus. The more anterior focus measures 2.9 x 4.7 x 4.4 cm. The more posterior focus measures 5.1 x 4.3 x 5.0 cm. Surrounding infla mmatory change is identified. Adjacent inflammatory response is noted within the adjacent kidney (also within the retroperitoneum) without obstruction. Colonic diverticulosis is identified within the distal descending and rectosigmoid colons with trace surrounding inflammatory change and prominence of the vasa recta, suggesting early/acute diverticulit is which would favor an abscess in this scenario, despite the lack of rim enhancement. Ultrasound may be performed for further characterization, versus contrast-enhanced CT with splenic ma ss protocol (noncontrast, arterial, and delayed). Kidneys: Nonenhancing focus of decreased attenuation within the lower pole of the right kidney, sugge sting a simple cyst which may be confirmed with a focused ultrasound. The remainder of the bilateral kidneys otherwise enhance symmetrically without hydronephrosis or peter l calculi. Adrenal glands: Unremarkable. Gastrointestinal tract: Mural thickening with surrounding inflammatory change and prominence of the vasa recta distal descend ing and rectosigmoid colons suggesting early/acute diverticulitis, as detailed above. No drainable fluid collection or gross perforation. Appendix: The appendix is not definitively visualized. However, no pericecal inflammatory change is identified suggest the presence of acute appendicitis. Vasculature: Calcified atherosclerotic disease. Lymph nodes: No pathologically enlarged or morphologically suspicious lymph nodes within the retroperitoneum or at the root of the mesentery. Pelvic structures: The bladder is distended, and otherwise unremarkable. The prostate gland is not enlarged. Body wall and musculoskeletal: Age-appropriate degenerative disease within the lower thoracic and lumbosacral spines. IMPRESSION: Two well-circumscribed nonenhancing adjoining foci of hyperdense fluid versus hypodense solid attenua tion within the spleen, with adjacent findings in the colon suggesting acute/early diverticulitis whi ch favor a splenic abscess in this scenario, regardless of the lack of rim enhancement. Other possibilities include lymphoma, angiosarcoma (less likely, given the lack of hemorrhagic necros is in a lesion of this size) versus inflammatory pseudotumor. A focused ultrasound may be performed for further characterization, as well as contrast-enhanced MRI with splenic mass protocol (as detailed above). Reviewed, dictated and finalized at location A. IMPRESSION: Two well-circumscribed nonenhancing adjoining foci of hyperdense fluid versus h ypodense solid attenuation within the spleen, with adjacent findings in the col on suggesting acute/early diverticulitis which favor a splenic abscess in this scenario, regardless of the lack of rim enhancement. Other possibilities include lymphoma, angiosarcoma (less likely, given the lack of hemorrhagic necrosis in a lesion of this size) versus inflammatory pseudotu mor. A focused ultrasound may be performed for further characterization, as well as contrast-enhanced MRI with splenic mass protocol (as detailed above).
--- NOTE | ~2025-02-28 | CT_ITS ---
EXAMINATION: CT abdomen pelvis wo con DATE: 02/28/2025 15:56 INDICATION: Left flank pain TECHNIQUE: Computed tomography (CT) of the abdomen and pelvis was performed without intravenous contr ast. Automated exposure control and iterative reconstruction technique were employed. The dose-length product was 268.85 mGy-cm. COMPARISON: 12/05/2024 FINDINGS: Mild discoid atelectasis at the bilateral lung bases. Likely benign 3 mm noncalcified granulomata in the posterior left lower lobe which is unchanged since 12/05/2013. Heart size is normal. Atherosclerot ic coronary artery calcific location. No pericardial or pleural effusion. Liver, gallbladder, pancrea s and bilateral adrenal glands are normal. Asymmetric mild left renal atrophy. 3 cm simple appearing exophytic cyst at the lower pole of the right kidney. Unchanged 6 mm hyperdense proteinaceous/hemorrh agic exophytic cyst at the lower pole the left kidney. There is a 8.1 x 5.2 x 5.1 cm low-attenuation lesion at the inferior spleen with relatively low density with mean attenuation of 22 HU which has de veloped since CT dated 12/05/2024 which would be against neoplasm with differential including subacute hematoma or abscess with the low density are again against acute hematoma. There is moderate colonic diverticulosis with a sigmoid and descending colon predominance and without adjacent inflammatory ch brandie to suggest diverticulitis. Small bowel and appendix are normal. Bladder is normal. Moderate-size d bilateral fat-containing inguinal hernias. No free intraperitoneal gas or fluid. No pathologically enlarged abdominal or pelvic lymphadenopathy. IMPRESSION: 1. New 8.1 x 5.2 x 5.1 cm relatively low-attenuation likely complex cystic lesion in the inferior spl een. This has developed since 12/05/2024 arguing against neoplasm and favoring either subacute hematom a or abscess in the appropriate clinical setting. 2. Moderate diverticulosis without evidence of diverticulitis. 3. Moderate bilateral fat-containing inguinal hernias. Reviewed, dictated and finalized at location A. IMPRESSION: 1. New 8.1 x 5.2 x 5.1 cm relatively low-attenuation likely complex cystic lesi on in the inferior spleen. This has developed since 12/05/2024 arguing against n eoplasm and favoring either subacute hematoma or abscess in the appropriate cli nical setting. 2. Moderate diverticulosis without evidence of diverticulitis. 3. Moderate bilateral fat-containing inguinal hernias.
[2025-02-28 15:56] LABS: Add Urine Microscopic? YES; Appearance Urine Clear (Clear); Glucose Urine UA Trace mg/dL (Negative); Leukocyte Esterase Ur 1+ LEU/UL (Negative); Nitrate Urine Negative (Negative); Specific Grav Ur 1.012 (1.001-1.035)
--- OUTSIDE RECORDS SUMMARY | 2025-02-28 16:03 | XMS_ITS | Clinical Summary ---
Author Organization [facility] Address [address] [place] [address] Care Team Providers Care Director Home Health Name Role Phone Carlos Ventura MD Primary [...] Recorded In the past 12 months has [facility] [employer], [employer] or [employer] threatened to shut off services in your [...] any time in the past 12 m [facility], were you homeless or living in a [place] [facility] (including now)? No 03/04/2024 Sex and Gender [...] this topic Medical Devices Implanted Type Area Hydrant Setter Device Identifier Shelf Expiration Date Model / Serial / Lot Stent Ureteral Contour Vl 4.8fr X 22-30cm - [id number] Implanted:Qty : 1 on 03/05/2024 by Stanley Gonzalez MD at [facility] Stent Right: Ureter Syn[employer]ant LUCIUS [id number] 12/07/2026 [id number] 50 / / [id number] Stent Ureteral Contour Vl 4.8fr X 22-30cm - [id number] Implanted:Qty : 1 on 03/05/2024 by Stanley Gonzalez MD at [facility] Stent Right: Ureter Syn[employer] LUCIUS [id number] 12/07/2026 [id number] 50 / / [id number] Procedures Procedure Name Priority Date/Time Associated Diagnosis Comments HEPATITIS C ANTIBODY Routine 03/04/2024 6:42 AM CDT from Last 3 Months or Most Recently Relevant to Health Maintenance Results * HEPATITIS C ANTIBODY W/REFLEX (03/04/2024 6:42 AM CDT) HEPATITIS C AB NON-REACTI VE NON-REACTI VE 03/04/2024 8:53 AM CDT [facility] 03/04/2024 6:42 AM CDT us Moses Leslie MD LABORATORY Final Result [facility] [address] [place] [address], [place] [phone] from Last 3 Months or Most Recently Relevant to Health Maintenance Insurance [facility] Advance Directives * Full Code (Latest Code Status on File) Date Activated Date Inactivated Comments 03/03/2024 9:23 PM 2024 2:50 PM Care Teams Director Home Health Relationship Specialty Start Date End Date Carlos Ventura MD [address] [place] [address] PCP - General INTERNAL MEDICINE 03/03/24
--- NOTE | 2025-02-28 16:19 | ED.GENADULT ---
HPI - General Adult General Chief complaint: Abdominal Pain Stated complaint: left flank pain. Hx kidney stones Time Seen by Provider: 02/28/25 15:32 History of Present Illness HPI narrative: 64-year-old male present to the emergency department for evaluation for left-sided flank pain. Patient does have prior history ureteral calculi and does follow-up with Dr King and Dr Hewitt. Patient reports he began having increased left flank pain a few days ago, patient suspects that he was having a a kidney stone. Related Data Home Medications ?Medication ?Instructions ?Recorded ?Confirmed ?Last Taken ?Type fluticasone fur. 100 mcg-umeclid 1 inh inhalation DAILY 08/23/24 01/23/25 11/07/24 History 62.5 mcg-vilant 25 mcg inhalat.powder (Trelegy Ellipta) fluticasone propionate 50 1 spray intranasal DAILY 08/23/24 01/23/25 11/07/24 History mcg/actuation nasal spray,suspension metoprolol succinate 25 mg 25 mg PO HS 08/23/24 01/23/25 11/07/24 History tablet,extended release 24 hr montelukast 10 mg tablet 10 mg PO DAILY 08/23/24 01/23/25 11/07/24 History omeprazole 40 mg capsule,delayed 40 mg PO DAILY 08/23/24 01/23/25 11/07/24 History release Allergies Allergy/AdvReac Type Severity Reaction Status Date / Time No Known Allergies Allergy Verified 02/28/25 14:14 Review of Systems Review of Systems: All systems reviewed & are unremarkable except as noted in HPI and below PMFSH Past Medical History Medical History CKD (chronic kidney disease) Hypertension COPD (chronic obstructive pulmonary disease) GERD (gastroesophageal reflux disease) Nephrolithiasis Obstructive uropathy Surgical History Surgical History S/P cystoscopy with ureteral stent placement Family History Family History Father Kidney disease Mother COPD (chronic obstructive pulmonary disease) Social History Social History Smoking status: Never smoker Second hand tobacco smoke exposure: Yes Alcohol intake: current Alcohol use details: vodka -2-3 drink/day Substance use: never Do You Feel Safe in your Home?: Yes Lack of Transportation: No Lack of Food: Never True Current Housing: I Have Housing Concerned About Future Housing: No Difficulty Paying Gas/Electric Bills: No Difficulty Paying for Meds: No Currently Unemployed: No Education: High School Diploma/GED Difficulty w/ Childcare or Family Care: No Living arrangements: with family Occupation/Education: occupation Gender identity (if verbalized by the patient): Male Spiritual care concerns: No Agree to blood products: Yes Exam Narrative: APPEARANCE: Uncomfortable appearing HEAD: normocephalic, atraumatic. EYES: PERRLA/EOMI, conjunctivae clear. NOSE: Normal no drainage EARS:TMS clear with good light reflex. THROAT: Pharynx clear, no exudate. NECK: Supple. No adenopathy, no masses. RESPIRATORY: Airway patent, respirations nonlabored. Clear to auscultation bilaterally, no rales, rhonchi, wheezing. CARDIOVASCULAR: Regular rate and rhythm without murmurs rubs or gallops. ABDOMINAL: Left CVA tenderness to palpation MUSCULOSKELETAL: Moves all extremities. Strength/ROM intact, No edema, No calf tenderness. NEURO: Alert. Cranial nerves II through XII intact. Good gait. Good coordination SKIN: Warm, dry. Normal Color Course Vital Signs Vital signs: Vital Signs Temperature 97.3 F L 02/28/25 14:12 Pulse Rate 117 H 02/28/25 14:12 Respiratory Rate 16 02/28/25 14:12 Blood Pressure 123/76 02/28/25 14:12 Pulse Oximetry 97 02/28/25 14:12 Temperature 97.3 F L 02/28/25 14:12 Pulse Rate 104 H 02/28/25 18:45 Respiratory Rate 12 02/28/25 18:45 Blood Pressure 156/93 H 02/28/25 18:45 Pulse Oximetry 96 02/28/25 18:45 Medical Decision Making [facility] Narrative Medical decision making narrative: 64-year-old male presents emergency department for evaluation for left flank pain. CT scan is concerning for early diverticulitis with a splenic abscess. Patient is currently afebrile but does have a leukocytosis of 13.2 hemoglobin of 9.0. Patient's INR is 1.2. Patient does have history of chronic kidney disease and his creatinine is 3.72. UA was negative for infection. Patient's initial symptoms for consistent with potential ureteral calculi and patient does have history of kidney stones. CT without contrast was ordered and was concerning for hematoma versus abscess. Patient denies any falls or injuries. CT scan with contrast was ultimately ordered and was concerning for acute diverticulitis and splenic abscess. Initially discussed the case with [facility] and they did not accept the patient for transfer. I discussed the case with [facility] and patient was accepted. Dr. Velazquez accepted the patient. Patient was treated with 2 L of years. Patient was started on IV vanc and IV Zosyn. Critical Care Procedure Note Authorized and Performed by: Patric Chavira Total critical care time: Approximately 36 minutes Due to a high probability of clinically significant, life threatening deterioration, the patient required my highest level of preparedness to intervene emergently and I personally spent this critical care time directly and personally managing the patient. This critical care time included obtaining a history; examining the patient; pulse oximetry; ordering and review of studies; arranging urgent treatment with development of a management plan; evaluation of patient's response to treatment; frequent reassessment; and, discussions with other providers. This critical care time was performed to assess and manage the high probability of imminent, life-threatening deterioration that could result in multi-organ failure. It was exclusive of separately billable procedures and treating other patients and teaching time. Please see MDM section and the rest of the note for further information on patient assessment and treatment. Differential Diagnosis Differential Diagnosis: Kidney stone, urinary tract infection, diverticulitis, splenic abscess, splenic laceration Vital Signs Vital Signs: Vital Signs Temperature 97.3 F L 02/28/25 14:12 Pulse Rate 117 H 02/28/25 14:12 Respiratory Rate 16 02/28/25 14:12 Blood Pressure 123/76 02/28/25 14:12 Pulse Oximetry 97 02/28/25 14:12 Temperature 97.3 F L 02/28/25 14:12 Pulse Rate 104 H 02/28/25 18:45 Respiratory Rate 12 02/28/25 18:45 Blood Pressure 156/93 H 02/28/25 18:45 Pulse Oximetry 96 02/28/25 18:45 Lab Data Lab results reviewed: Yes I reviewed the patient's lab results. 02/28/25 16:24 02/28/25 16:24 Labs: Lab Results 02/28/25 02/28/25 02/28/25 Range/Units 15:44 16:24 16:24 WBC 13.2 H (4.5-10.0) K/mm3 RBC 3.29 L (4.6-6.20) M/mm3 Hgb 9.0 L (14.0-18.0) g/dL Hct 29.5 L (42.0-52.0) % MCV 89.7 (80-100) fl MCH 27.4 (26-34) pg MCHC 30.5 L (32-36) g/dl RDW 14.6 H (11.5-14.5) % Plt Count 424 H (150-375) k/mm3 MPV 9.6 (7.4-10.4) fl Immature Gran % (Auto) 1.7 H (0-0.5) % Neut % (Auto) 72.8 (45.5-73.1) % Lymph % (Auto) 14.0 L (18.3-44.2) % Randolph % (Auto) 9.7 H (2.6-8.5) % Eos % (Auto) 1.4 (0-4.4) % Baso % (Auto) 0.4 (0.2-1.2) % Lymph # (Auto) 1.84 (0.9-3.2) K/mm3 Randolph # (Auto) 1.3 H (0.1-0.6) K/mm3 Eos # (Auto) 0.2 (0-0.3) K/mm3 Baso # (Auto) 0.1 (0.0-0.1) K/mm3 Abs Immat Gran (auto) 0.22 H (0.00-0.031) K/mm3 Absolute Neuts (auto) 9.6 H (1.3-6.7) K/mm3 Absolute Nucleated RBC 0.000 (0.0-0.012) K/mm3 Nucleated RBC % 0.0 (0.0-0.2) % ESR > 140 H Cancelled (0-20) mm/hr PT 15.1 H (11.1-14.7) Seconds INR 1.2 APTT 35.5 (22.3-36.8) Seconds Sodium 136 L (137-145) mmol/L Potassium 4.4 (3.4-5.0) mmol/L Chloride 106 (98-107) mmol/L Carbon Dioxide 19 L (22-30) mmol/L Anion Gap 11 (4-12) mmol/L BUN 54 H D (9-20) mg/dL Creatinine 3.72 H (0.7-1.3) mg/dL Estim Creat Clear Calc 17 ml/min Estimated GFR 17 L (59 - ) Glucose 104 (65-110) mg/dL Calcium 9.5 (8.4-10.2) mg/dL Total Bilirubin 0.5 (0.2-1.3) mg/dL AST 25 (17-59) U/L ALT 22 (6-50) U/L Alkaline Phosphatase 211 H (38-126) U/L C-Reactive Protein > 9.0 H (<1.0) mg/dL Total Protein (6.3-8.2) g/dL Albumin (3.5-5.1) g/dL Urine Color Yellow (Yellow) Urine Appearance Clear (Clear) Urine pH 5.0 (5.0-9.0) Ur Specific [place] 1.012 (1.001-1.035) Urine Protein 2+ H (Negative) mg/dL Urine Glucose (UA) Trace H (Negative) mg/dL Urine Ketones Negative (Negative) mg/dL Ur Blood (Man) Trace (Negative) Urine Nitrate Negative (Negative) Urine Bilirubin Negative (Negative) Urine Urobilinogen 0.2 (<2.0) mg/dL Leukocyte Esterase Rfl 1+ H (Negative) RAYNE/UL Urine RBC 0-2 (0-2) /hpf Urine WBC 6-10 H (0-3) /hpf Ur Squamous Epith Cells None seen (Few) /hpf Urine Bacteria None seen /hpf Urine Casts 3-5 02/28/25 Range/Units 16:24 WBC (4.5-10.0) K/mm3 RBC (4.6-6.20) M/mm3 Hgb (14.0-18.0) g/dL Hct (42.0-52.0) % MCV (80-100) fl MCH (26-34) pg MCHC (32-36) g/dl RDW (11.5-14.5) % Plt Count (150-375) k/mm3 MPV (7.4-10.4) fl Immature Gran % (Auto) (0-0.5) % Neut % (Auto) (45.5-73.1) % Lymph % (Auto) (18.3-44.2) % Randolph % (Auto) (2.6-8.5) % Eos % (Auto) (0-4.4) % Baso % (Auto) (0.2-1.2) % Lymph # (Auto) (0.9-3.2) K/mm3 Randolph # (Auto) (0.1-0.6) K/mm3 Eos # (Auto) (0-0.3) K/mm3 Baso # (Auto) (0.0-0.1) K/mm3 Abs Immat Gran (auto) (0.00-0.031) K/mm3 Absolute Neuts (auto) (1.3-6.7) K/mm3 Absolute Nucleated RBC (0.0-0.012) K/mm3 Nucleated RBC % (0.0-0.2) % ESR (0-20) mm/hr PT (11.1-14.7) Seconds INR APTT (22.3-36.8) Seconds Sodium (137-145) mmol/L Potassium (3.4-5.0) mmol/L Chloride (98-107) mmol/L Carbon Dioxide (22-30) mmol/L Anion Gap (4-12) mmol/L BUN (9-20) mg/dL Creatinine (0.7-1.3) mg/dL Estim Creat Clear Calc ml/min Estimated GFR (59 - ) Glucose (65-110) mg/dL Calcium (8.4-10.2) mg/dL Total Bilirubin (0.2-1.3) mg/dL AST (17-59) U/L ALT (6-50) U/L Alkaline Phosphatase (38-126) U/L C-Reactive Protein Cancelled (<1.0) mg/dL Total Protein 8.2 (6.3-8.2) g/dL Albumin 3.5 (3.5-5.1) g/dL Urine Color (Yellow) Urine Appearance (Clear) Urine pH (5.0-9.0) Ur Specific [place] (1.001-1.035) Urine Protein (Negative) mg/dL Urine Glucose (UA) (Negative) mg/dL Urine Ketones (Negative) mg/dL Ur Blood (Man) (Negative) Urine Nitrate (Negative) Urine Bilirubin (Negative) Urine Urobilinogen (<2.0) mg/dL Leukocyte Esterase Rfl (Negative) RAYNE/UL Urine RBC (0-2) /hpf Urine WBC (0-3) /hpf Ur Squamous Epith Cells (Few) /hpf Urine Bacteria /hpf Urine Casts Imaging Data Radiologist's impression: Impressions Abdomen/Pelvis CT 02/28/25 16:02 IMPRESSION: 1. New 8.1 x 5.2 x 5.1 cm relatively low-attenuation likely complex cystic lesion in the inferior spleen. This has developed since 12/05/2024 arguing against neoplasm and favoring either subacute hematoma or abscess in the appropriate clinical setting. 2. Moderate diverticulosis without evidence of diverticulitis. 3. Moderate bilateral fat-containing inguinal hernias. Abdomen/Pelvis CT 02/28/25 19:24 IMPRESSION: Two well-circumscribed nonenhancing adjoining foci of hyperdense fluid versus hypodense solid attenuation within the spleen, with adjacent findings in the colon suggesting acute/early diverticulitis which favor a splenic abscess in this scenario, regardless of the lack of rim enhancement. Other possibilities include lymphoma, angiosarcoma (less likely, given the lack of hemorrhagic necrosis in a lesion of this size) versus inflammatory pseudotumor. A focused ultrasound may be performed for further characterization, as well as contrast-enhanced MRI with splenic mass protocol (as detailed above). Critical Care Time Critical Care Time Critical Care Time: Yes Total Critical Care Time: 36 Discharge Plan Discharge Clinical Impression: Abscess of spleen, Diverticulitis Patient Disposition: Acute Care Hospital Condition: Serious Instructions: Antibiotic Form Patient Language: Greenlandic Prescriptions: No Action diclofenac sodium 75 mg tablet,delayed release (DR/EC) 75 mg PO BID PRN (Reason: pain) Qty: 20 0RF cyclobenzaprine 10 mg tablet 10 mg PO TID PRN (Reason: muscle spasm) Qty: 20 0RF montelukast 10 mg tablet 10 mg PO DAILY omeprazole 40 mg capsule,delayed release(DR/EC) 40 mg PO DAILY metoprolol succinate 25 mg tablet extended release 24 hr 25 mg PO HS fluticasone propionate 50 mcg/actuation spray,suspension 1 spray intranasal DAILY Trelegy Ellipta 100-62.5-25 mcg blister with device 1 inh inhalation DAILY tramadol 50 mg tablet 50 mg PO Q6H PRN (Reason: pain) Qty: 20 0RF oxybutynin chloride 5 mg tablet 5 mg PO BID PRN (Reason: bladder spasms) Qty: 30 0RF Rx Instructions: Take as needed for bladder spasms tramadol 50 mg tablet 50 mg PO Q6H PRN (Reason: pain) Qty: 20 0RF nitrofurantoin monohyd/m-cryst [Macrobid] 100 mg capsule 100 mg PO Q12H 3 Days Qty: 6 0RF Rx Instructions: must administer with a meal/food Follow-up/Referrals: UNKNOWN,DOCTOR [Primary Care Provider] -
[2025-02-28] MEDS: ONDANSETRON INJ 4 MG/2 ML VIAL IV PUSH (16:20)
[2025-02-28] MEDS: HYDROmorphone HCL INJ (*CRX) 2 MG/ML VIAL 0.5 MG IV PUSH (16:21)
[2025-02-28] MEDS: LACTATED RINGERS 1,000 ML 999 ML IV CONT ×2 (16:22→17:34)
[2025-02-28 16:47] LABS: Alanine Aminotransferase 22 U/L (6-50); Albumin Level 3.5 g/dL (3.5-5.1); Alkaline Phosphatase 211 U/L (38-126); Anion Gap 11 mmol/L (4-12); Aspartate Amino Transferase 25 U/L (17-59); Bilirubin,Total 0.5 mg/dL (0.2-1.3); Blood Urea Nitrogen 54 mg/dL (9-20); Calcium 9.5 mg/dL (8.4-10.2); Carbon Dioxide 19 mmol/L (22-30); Chloride 106 mmol/L (98-107); Estimated CRCL calculation 17 ml/min; Estimated Glomerular Filt Rate 17; Glucose 104 mg/dL (65-110); Potassium 4.4 mmol/L (3.4-5.0); Sodium 136 mmol/L (137-145); Total Protein 8.2 g/dL (6.3-8.2)
[2025-02-28 16:50] LABS: INR 1.2; Prothrombin Time 15.1 Seconds (11.1-14.7)
[2025-02-28 16:51] LABS: Partial Thromboplastin Time 35.5 Seconds (22.3-36.8)
[2025-02-28 17:16] LABS: Hematocrit 29.5 % (42.0-52.0); Hemoglobin 9.0 g/dL (14.0-18.0); Immature Granulocyte Percent A 1.7 % (0-0.5); Lymphocytes Absolute Auto 1.84 K/mm3 (0.9-3.2); Mean Corpuscular HGB Conc 30.5 g/dl (32-36); Mean Corpuscular Hemoglobin 27.4 pg (26-34); Mean Corpuscular Volume 89.7 fl (80-100); Nucleated Red Blood Cells Absolute Auto 0.000 K/mm3 (0.0-0.012); Nucleated Red Blood Cells Perc 0.0 % (0.0-0.2); Platelet Count Result 424 k/mm3 (150-375); Red Blood Count 3.29 M/mm3 (4.6-6.20); White Blood Count 13.2 K/mm3 (4.5-10.0)
[2025-02-28] MEDS: PIPERACILLIN/TAZOBACTAM SOD 2.25 GM in SODIUM CHLORIDE 0.9% IV 50 ML 100 ML IVPB (18:48)
[2025-02-28] MEDS: VANCOMYCIN 1,250 MG/NS 250 ML 1,250 MG/250 ML BAG 166.67 MG IVPB (19:22)
--- NOTE | 2025-02-28 21:24 | PC.NURSE ---
Pt moved into hospital bed for comfort pending xfer to [facility].
[2025-03-01] VITALS (49 sets, daily range): BP systolic 111–169; BP diastolic 72–86; PULSE 79–120; RESP 12–26; TEMP 36.7; O2SAT 91–99
[2025-03-01] MEDS: PIPERACILLIN/TAZOBACTAM SOD 2.25 GM in SODIUM CHLORIDE 0.9% IV 50 ML 100 ML IVPB ×3 (02:35→18:32)
[2025-03-01 05:54] LABS: Hematocrit 25.8 % (42.0-52.0); Hemoglobin 8.0 g/dL (14.0-18.0); Immature Granulocyte Percent A 0.8 % (0-0.5); Lymphocytes Absolute Auto 1.57 K/mm3 (0.9-3.2); Mean Corpuscular HGB Conc 31.0 g/dl (32-36); Mean Corpuscular Hemoglobin 27.4 pg (26-34); Mean Corpuscular Volume 88.4 fl (80-100); Nucleated Red Blood Cells Absolute Auto 0.000 K/mm3 (0.0-0.012); Nucleated Red Blood Cells Perc 0.0 % (0.0-0.2); Platelet Count Result 368 k/mm3 (150-375); Red Blood Count 2.92 M/mm3 (4.6-6.20); White Blood Count 13.9 K/mm3 (4.5-10.0)
[2025-03-01 06:14] LABS: Anion Gap 11 mmol/L (4-12); Blood Urea Nitrogen 51 mg/dL (9-20); Calcium 9.0 mg/dL (8.4-10.2); Carbon Dioxide 19 mmol/L (22-30); Chloride 103 mmol/L (98-107); Estimated CRCL calculation 18 ml/min; Estimated Glomerular Filt Rate 18; Glucose 108 mg/dL (65-110); Potassium 4.4 mmol/L (3.4-5.0); Sodium 133 mmol/L (137-145)
[2025-03-01 06:52] LABS: Estimated CRCL calculation 17 ml/min; Estimated Glomerular Filt Rate 17
[2025-03-01] MEDS: LACTATED RINGERS 1,000 ML 150 ML IV CONT (08:16)
--- NOTE | 2025-03-01 12:29 | PC.NURSE ---
Olga, at [facility], called for update on pt status. States [facility] still has no beds, pt remains on waitlist.
--- NOTE | 2025-03-01 18:58 | PC.NURSE ---
Olga with [facility] transfer center called with accepting physician and bed number. States pt will go to Room 628 at [facility] by accepting provider Dr. Velazquez. Number for report is [phone]. pre owned sales consultant number is [phone].
--- NOTE | 2025-03-01 19:03 | PC.NURSE ---
Report given to DAYLIN Mcdaniel at [facility]
[2025-03-01] MEDS: VANCOMYCIN 1,250 MG/NS 250 ML 1,250 MG/250 ML BAG 166.67 MG IVPB (20:19)
[2025-03-04 12:15] LABS: CRP 14.7 mg/dL (<1.0)
== END 2025-03-01 21:07 | disposition short-term general hospital (02) ==
PROVIDERS: Student in an Organized Health Care Education/Training Program; Emergency Provider Emergency Medicine
DX: D73.3 Abscess of spleen (principal); K57.92 Diverticulitis of intestine, part unspecified, without perforation or abscess without bleeding; I12.9 Hypertensive chronic kidney disease with stage 1 through stage 4 chronic kidney disease, or unspecified chronic kidney disease; N18.9 Chronic kidney disease, unspecified; J44.9 Chronic obstructive pulmonary disease, unspecified
CPT/HCPCS: 36415; 74176; 74177; 80048; 80053; 80202; 81001; 82565; 85025; 85610; 85652; 85730; 86140; 87086; 96361; 96365; 96366; 96368; 96375; 99285; J1171; J2405; J2543; J3373; J7120; Q9967

== ENCOUNTER 2025-03-24 11:34 | Outpatient (NON) | payer BC, SELFPAY ==
--- OUTSIDE RECORDS SUMMARY | 2025-03-01 21:44 | XMS_ITS | Encounter Summary ---
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 Name Role Phone Unknown, Provider Primary Care Provider Carlos Perry MD Primary Care Provider [phone] Reason for Referral * Home Health Care (Routine) - Pending Review Specialty Diagnoses / Procedures Referred By Afia hernandes Referred To Contact Home Health Services Diagnoses Mitral valve insufficiency, unspecified etiology Ofelia Mckee, IRISH MOSS GATHERER-GREENS PLANTER [address] [place] [address] Phone: tel: fax: [facility] Scheduling [address] [place] [address] Phone: tel: Referral ID Status Reason Start Date Expiration Date Visits Requested Visits Authorized [id number] Pending Review Specialty Services Required 03/16/2025 03/16/2026 999 999 * Radiology Services (Routine) - Open Specialty Diagnoses / Procedures Referred By Contsammi t Referred To Contact Diagnoses Bacteremia Enterococcal bacteremia Procedures IR Central Line Removal Garcia Gil MD [address] [place] [address] Phone: tel: fax: Referral ID Status Reason Start Date Expiration Date Visits Re quested Visits Authorized [id number] Open 05/01/2025 05/01/2026 1 1 * (Routine) - Open Specialty Diagnoses / Procedures Referred By Contac t Referred To Contact Cardiology Diagnoses S/P MVR (mitral valve replacement) Ofelia Mckee APRN-CNP [address] [place] [address] Phone: tel: fax: Tahmina Bui MD [address] [facility] [address] [place] [address] Phone: tel: fax: Referral ID Status Reason Start Date Expiration Date V isits Requested Visits Authorized [id number] Open Discharge Follow-up 03/23/2025 03/23/2026 1 1 Scheduling Instructions S/p bio MVR due to E. Faecalis by Dr. Hernandez * Consultation (Routine) - Open Specialty Diagnoses / Procedures Referred By Afia hernandes Referred To Contact Anticoagulation Diagnoses S/P MVR (mitral valve replacement) Ofelia Mckee APRN-CNP [address] [place] [address] Phone: tel: fax: Referral ID Status Reason Start Date Expiration Date V isits Requested Visits Authorized [id number] Open Specialty Services Required 03/23/2025 03/23/2026 1 1 Reason for Visit * Auth/Cert (Routine) Specialty Diagnoses / Procedures Referred By Contsammi t Referred To Contact Diagnoses Spleen abscess Referral ID Status Reason Start Date Expiration Date Visits Re quested Visits Authorized [id number] 1 1 Encounter Details Date Type Department Care Team (Late st Contact Info) Description 03/01/2025 9:44 PM CDT - 03/23/2025 3:36 PM CDT Hospital Encounter [facility] [address] ACUTE [address] [place] [address] Shira Harris MD [address] [place] [address] Pramod Torres DO [address] [facility] [address] [place] [address] Adalberto Arroyo MD [address] [facility] [address] OF [facility] [place] [address] Cornelia Serra MD [address] [facility] [address] [facility] [place] [address] Rahul Hernandez MD [address] [facility] [address] [place] [address] Cardiothoracic Surgery Discharge Disposition: Home Health Care Svc Social History Tobacco Use Types Packs/Day Years Used Date Smoking Tobacco: Never Smokeless Tobacco: Never Passive Exposure Comments:lily perez states he has never smoked Alcohol Use Standard Drinks/Week Comments Not Currently 2 (1 standard drink = 0.6 oz pure alcohol) last drink was roughly 6 months ago AUDIT-C Answer Date Recorded Q1: How often do you have a drink containing alcohol? Never 03/01/2025 Q2: How many drinks containi ng alcohol do you have on a typical day when you are drinking? Patient does not drink Q3: How often do you have si x or more drinks on one occasion? Never 03/01/2025 Overall Financial Resource Strain (CARDIA) Answe r Date Recorded How hard is it for you to [place] for the very basics like food, housing, medical care, and heating? Not hard at all 03/01/2025 Citizen Of [place] of Occupat ional Health - Occupational Stress Questionnaire Answer Date Recorded Do you feel stress - tense, restless, nervous, or anxious, or unable to sleep at night because your mind is troubled all the time - these days? Not at all 03/01/2025 Hunger Vital Sign Answer Date Recorded Within the past 12 months, y ou worried that your food would run out before you got the money to buy more. Never true 03/01/20 25 Within the past 12 months, t he food you bought just didn't last and you didn't have money to get more. Never true 03/01/2025 PRAPARE - Transportation Answer Date Re corded In the past 12 months, has l ack of transportation kept you from medical appointments or from getting medications? No 02/17 In the past 12 months, has l ack of transportation kept you from meetings, work, or from getting things needed for daily living? No 03/01/2025 Housing Stability Vital Sign Answer Reuben e Recorded In the last 12 months, was t here a time when you were not able to pay the mortgage or rent on time? No 03/01/2025 Number of Times Moved in the Last Year Not on fi le 03/01/2025 At any time in the past 12 m [facility], were you homeless or living in a nursing home (including now)? 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 Gender Identity Not on file Sexual Orientation Not on file documented as of this encounter Last Filed Vital Signs Vital Sign Reading Time Taken Comments Blood Pressure 123/67 03/23/2025 11:26 AM CDT Pulse 100 03/23/2025 12:02 PM CDT Temperature 36.3 C (97.3 F) 03/23/2025 11:26 AM CDT Respiratory Rate 20 03/23/2025 11:2 6 AM CDT Oxygen Saturation 98% 03/23/2025 12: 02 PM CDT Inhaled Oxygen Concentration 40% 03/15/2025 9 :00 PM CDT Weight 81.6 kg (179 lb 12.8 oz) 03/23/2025 4:00 AM CDT Height 170.2 cm (5' 7.01) 03/12/2025 2:30 PM CD T Body Mass Index 28.15 03/12/2025 2:30 PM CDT documented in this encounter Functional Status * Question Answer Date of Assessment Author Q1: How often do you have a drink containing alcohol? Never 03/01/2025 11:03 PM Radha Ross RN Q2: How many drinks containing alcohol do you have on a typical day when you are drinking? Patient does not drink 03/01/2025 11:03 PM FLORENCET Rahda Arteaga RN Q3: How often do you have six or more drinks on one occasion? Never 03/01/2025 11:03 PM CDT Radha Arteaga RN * Audit-C Score Answer Date of Assessment Author 0 03/01/2025 11:03 PM CDT Radha Arteaga RN * Is person deaf or have serious hearing difficulty? Answer Date of Assessment Author No 03/02/2025 1:26 PM CDT Leela Sanchez RN * Is person blind or have serious difficulty seeing? Answer Date of Assessment Author No 03/02/2025 1:26 PM CDT Leela Sanchez RN * Does person have serious difficulty walking/climbing stairs? Answer Date of Assessment Author No 03/02/2025 1:26 PM CDT Leela Sanchez RN * Does person have difficulty dressing/bathing? Answer Date of Assessment Author No 03/02/2025 1:26 PM FLORENCET Leela Sanchez RN * Does person have difficulty doing errands alone? Answer Date of Assessment Author No 03/02/2025 1:26 PM Leela Tariq RN documented as of this encounter Mental Status * Does person have difficulty concentrating/remembering/making decisions? Answer Entry Date Author No 03/02/2025 1:26 PM Leela Tariq RN documented in this encounter Discharge Summaries * Ofelia Mckee, IRISH M[employer] G[employer] PL[employer]TER - 03/23/2025 10:07 AM CDT Physician Discharge Summary Patient ID: Marshall Espinal Jr. [id number] 65 year old 1960 Admit date: 03/01/2025 Surgery: Mitral valve replacement with 31 mm Mitris bioprosthetic Surgery Date: 03/15/25, IN THE EVENT PATIENT IS SEEN IN HOSPITAL WITHIN 30 DAYS OF SURGERY CONTACT CTS AT [phone] ([phone]) OR [facility] DOCUMENTATION SPEC Discharge date and time: 03/23/2025 Surgeon: Shira Harris MD Discharge Physician: Dr. Hernandez Present on Admission: Abscess of spleen (Resolved) Diverticulitis HTN (hypertension) Diverticulosis Enterococcal bacteremia Mitral valve vegetation (HCC) COPD (chronic obstructive pulmonary disease) (HCC) Endocarditis, suspected CKD (chronic kidney disease) stage 5, GFR less than 15 ml/min ([facility]) Discharge Diagnoses: Mitral valve endocarditis, E. Faecalis bacteremia, splenic abscess, s/p MVR Admission Condition: poor Discharged Condition: stable Indication for Admission: valve disease: mitral Day of DC events: 03/23/2025: Instructed patient on maintaining sternal precautions, avoiding lifting>10lbs, and avoiding driving until seen and cleared by Cardiac Surgeon in clinic. Patient to be discharged to home with home health ordered on Statin and warfarin. Unable to start beta-iveth dueto periods of junctional rhythm. Patient educated on signs and symptoms of infection including fever, chills, redness, dehiscence or drainage at incision sites. Patient instructed to avoid tub baths or submerging incisions; showers permitted and cleanse incisions with gentle soap and water. Patientto leave sternal dressing in place until clinic at which time it will be removed as well as previous chest tube sutures. Patient instructed to call CTS if new or worsening chest pain, irregular heartrhythm/palpitations, new or worsening shortness of breath, or increased swelling to legs. Patient instructed to weigh daily and if weight increases by >5-10lbs in 2 days to call for intructions (likely would need an additional dose of lasix). Patient instructed to call if any noted feelings of lightheadedness/dizziness with standing. Educated on fall precautions. Contact number provided for CTS. Patient to obtain labs/CXR/EKG ~90minutes prior to appointment with cardiac surgeon on 04/04/25. Referrals placed for follow up with product support technician Dr. Bui with goal follow up within 3 weeks ofdischarge. Patient is medically stable for discharge. Discharge instructions, including indicationsfor outpatient cardiac rehab (phase II) discussed with patient and Daughter who voiced understanding and will follow up as directed. All questions answered at this time. Hospital Course: 64 year old male with past medical history for HTN, CKD w/ hx of nephrolithiasis and GERDwho presented from OSH with complaints of fever/chills and left sided flank pain. CT abdomen/pelvixwith concern for splenic abscess. Blood cultures was positive for E. Faecalis. Echocardiogram with mitral valve vegetation 1x1.2cm in size and mild mitral regurgitation. He was transferred to [facility] for surgical evaluation of his mitral valve endocarditis Prior to OR, pt was noted to have very poor dentition. Panorex revealed multiple dental caries and Dentistry pulled several teeth prior to surgery. Patient is now s/p mitral valve replacement with a 31 mm mitris bioprosthetic mitral valve. Following surgery, patient was taken from the OR to ICU for immediate post operative recovery. He was extubated to supplemental oxygen in a timely manner and was up in a chair eating breakfast by POD1. Oxygen was weaned to room air. His chest tubes, pacing wires, central and arterial access lines were removed and he was transferred to the step down unit for continued progressive care. Warfarin therapy was initiated for his bioprosthetic mitral valve, his INR on day of discharge was 1.3. He worked well with physical and occupational therapy and was walking independently prior to discharge. Consults: Cardiology, anesthesiology, nursing, intensive care medicine, respiratory therapy, infectious disease, dentistry, physical and occupational therapy. Significant Diagnostic Studies: Recent Labs Component Name 03/23/255303/22/2534003/21/25434 NA 135* 136 134* CL 102 104 103 CO2 24 22 21* BUN 61* 59* 51* CREATININE 2.95* 2.85* 2.83* CALCIUM 9.0 9.0 8.8 MAGNESIUM 2.0 2.0 1.8 Recent Labs Component Name 03/23/255203/22/2534003/21/2543403/15/25 1510 03/15/25 1433 WBC 12.0* 13.0* 11.0* - - HGB 9.1* 8.4* 8.6* - - HCT 29.0* 25.5* 26.5* - - PLT - - - - 215 - = values in this interval not displayed. Recent Labs Component Name 03/23/255303/22/2534003/21/2543403/20/25 0329 03/19/25 0428 PROT 7.1 6.8 6.7 - 6.2 ALB 3.2* 3.1* 3.2* - 3.1* TBILI 0.2 0.3 0.3 - 0.4 DBILI - - - - 0.2 AST 43* 37* 60* - 173* ALT 67* 84* 105* - 166* ALKPHOS 168* 154* 169* - 198* - = values in this interval not displayed. Recent Labs Component Name 03/23/25 0054 03/22/25 0341 03/21/25 0435 03/19/25 0428 03/15/25 1732 03/15/25 1510 INR 1.3 1.3 1.4 - 1.3 1.5 PTT - - - - 29.8 32.4 - = values in this interval not displayed. Recent Imaging: CXR 03/22/25: FINDINGS/IMPRESSION: Postsurgical changes of mitral valve replacement are redemonstrated, characterized by median sternotomy plates, screws, and wires, and a mitral valve prosthesis. Trace bilateral pleural effusions with adjacent atelectasis, grossly unchanged from prior. Overall, aeration remains unchanged. No pneumothorax. The cardiomediastinal silhouette is stable. Degenerative changes are noted in the thoracic spine. Report dictated by Jamie Rucker MD, (associate professor of radiology). > Dictated by Lighting Equipment Operator Echocardiogram 03/19/25: Summary * The left ventricle is normal in size, with normal systolic function and an estimated ejection fraction of 67 % by biplane method of disks. Left ventricular wall motion is grossly normal, however endocardial definition is limited despite contrast. * The left ventricular mass is normal with concentric remodeling. * Right ventricle is normal in size with grossly normal systolic function. * By history there is a unknown size bioprosthetic valve in the mitral position. The valve is well seated, the leaflets are not well visualized, with no significant regurgitation, and no paravalvular regurgitation. MVR indices; a dimensionless index (DI) of 1.18, a valve area of 2.50 cm2, a mean gradient of 2 mmHg. Findings are consistent with normal valve function. * The inferior vena cava is dilated (> 2.1 cm). * There is no pericardial effusion. Discharge Exam: BP 118/83 (BP Location: Left arm, Patient Position: Sitting) Pulse 108 Temp 98 ??F (36.7 ??C) (Oral) Resp 20 Ht 1.702 m (5' 7.01) Wt 81.6 kg (179 lb 12.8 oz) SpO2 97% Temp: [97.6 ??F (36.4 ??C)-98.2 ??F (36.8 ??C)] 98 ??F (36.7 ??C) Pulse: [92-108] 108 Resp: [12-20] 20 BP: (101-128)/(68-90) 118/83 Physical Exam: General: no acute distress and sitting in chair during interview Lungs: Diminished in bilateral bases Chest Wall: sternotomy covered with Steri strips dressing C/D/I and equal rise and fall of chest Heart: R/R/R and No murmurs/clicks on auscaltation Abd: soft, non-distended and non-tender and BS x4 Extremities: warm distally x4 Pulses: 2+ throughout Skin: W/D/N Neuro: A/A/O x 4, Neuro exam grossly intact, and No acute deficits noted Disposition: Home HH ordered: yes, OPAT Patient Instructions: Medication List START taking these medications ampicillin 2 g in NaCl IV 0.9 % 100 mL - IV ampicillin 2g every 8 hours (renally dosed), consider continuous infusion outpatient to help with easier administration. - Duration of therapy 6 weeks from date of MVR, 03/15/2025 - EOT 04/26/2025. - Weekly labs: CBC w/ diff, CMP, please fax results to [facility] Infectious disease clinic, fax [phone], Marques Cabello PA-C aspirin 81 MG chew tablet Commonly known as: Aspirin Take 1 (one) tablet by mouth once daily (chew and swallow) Start taking on: March 24, 2025 cefTRIAXone 2 g in NaCl IV 0.9 % 50 mL - IV ceftriaxone 2g every 12 hours - Duration of therapy 6 weeks from date of MVR, 03/15/2025 - EOT 04/26/2025. - Weekly labs: CBC w/ diff, CMP, please fax results to [facility] Infectious disease clinic, fax [phone], Marques Cabello PA-C furosemide 20 MG tablet Commonly known as: Lasix Take 1 (one) tablet by mouth once daily for 30 days Start taking on: March 24, 2025 potassium chloride ER 10 MEQ tablet Take 1 (one) tablet by mouth once daily for 30 days Stop taking when no longer taking furosemide/Lasix Start taking on: March 24, 2025 warfarin 2 MG tablet Commonly known as: Coumadin To start, take 4 mg daily. Dose will be adjusted initially by Dr. Hernandez's office according to your INR results. Starting 04/05/25, the Anticoagulation Clinic at [facility] will be dosing your warfarin CONTINUE taking these medications omeprazole 40 MG capsule Commonly known as: PriLOSEC STOP taking these medications amLODIPine 5 MG tablet Commonly known as: Norvasc metoprolol succinate XL 24hr 25 MG tablet Commonly known as: Toprol XL montelukast 10 MG tablet Commonly known as: Singulair Where to Get Your Medications These medications were sent to [facility] [address] [address] Hours: Mon-Fri 8AM-6PM; Sat 9AM-1PM aspirin 81 MG chew tablet furosemide 20 MG tablet potassium chloride ER 10 MEQ tablet warfarin 2 MG tablet Information about where to get these medications is not yet available Ask your nurse or doctor about these medications ampicillin 2 g in NaCl IV 0.9 % 100 mL cefTRIAXone 2 g in NaCl IV 0.9 % 50 mL Discharge Instructions A Note From Your Doctors: MrDeondre Espinal Jr., You were admitted to the hospital as a transfer from [facility] for concerns for an abscess in your spleen. You presented to [facility] for a two week history of left flank pain, with concerns for kidney stone. Imaging there did not show any kidney stones, but did show a small fluid filled lesion of the spleen. They were concerned that the lesion was a possible abscess so they transferred you to [facility] for further workup. Our interventional radiologists were consulted, and after they reviewedyour images, they did not feel strongly that the lesion was an abscess and thus did not require anysurgery to drain the fluid. We did multiple tests to see if you had a possible infection, but did Please continue taking your home medications as prescribed. Please follow up with your primary caredoctor on discharge If you have any questions about your medications, please be sure to ask the pharmacy when you belt picker your prescription. You may also call your primary provider to ask if you should be taking your medication. FOLLOW-UP: It is important that you follow-up with all appointments that have been made on your behalf. These appointments include: Additionally, we have requested appointments with the following: You will be contacted within 3 days of discharge from the hospital by the receptionist scheduler regarding your follow up appointments, as listed above, after leaving the hospital. If you are not contacted pleasecall the number . If a follow-up with your primary care provider has not been scheduled, please schedule an appointment to follow-up on your hospitalization. If there is a conflict, please call the clinic ahead of time and reschedule the appointment. CONCERNING SYMPTOMS: When to call your healthcare provider: Call your healthcare provider immediately if you have any of the following: - Dizziness - Weakness in arms/legs - Fever of 101??F or higher - Shaking chills - Intractable nausea and vomiting - Severe headache - Confusion/altered mental status - Seizures (convulsions) If you are unable to reach your primary provider, please go to the nearest emergency room or call EMS ([phone]). Regards, Internal Medicine Department [address] [address] CARDIAC SURGERY POST-OP INSTRUCTIONS For NON-URGENT questions: Call [phone] during 8am-4pm and follow the prompts. For URGENT questions: Call [phone] during 7am-6pm, if after 6pm call [phone] and ask for the Cardiac Surgeon electrical installation supervisor for shortness of breath, new or worsening pain, increased swelling in legs, dizziness, or signs of infection (fever, chills, and wound redness, warmth, or purulent drainage) No driving for at least 6-8 weeks from surgery date until cleared by Physician or while taking narcotic pain medication. Gradually increase your walking and activity each day. If taking a narcotic pain medication, you can take over the counter Miralax or Colace to help prevent constipation. Shower daily! No tub baths, pools, or hot tubs until cleared by physician. Leave dressings in place (Cardiac Surgery Team will remove in clinic at follow up appointment). Guaze dressings should be changed daily. If wounds are draining clear or small amount of bloody fluid this is ok. If they are draining pus or milky fluid call Cardiac Surgery Team immediately. Weigh yourself daily, if you notice a 5lb weight increase in 2 days, call us so we can adjust your medications. It takes 6-8 weeks for your sternum to fully heal! Follow these precautions during this time to ensure proper healing. Sleep on your back! Do not sleep on your side or stomach When you are riding in a car, sit in the back seat. Do not lift more than 10 lbs. Do not push or pull things. Please take your blood pressure twice a day, in the morning and at night. Keep a log to bring into your follow up appointment so we can adjust medications if needed. If the top number of your blood pressure is consistently higher than 140 or lower than 100, please call the cardiac surgery team at the numbers listed below. You will be given a prescriptions for 14-30 days. We typically do not refill medications. You will need to see your product support technician and PCP in the next few weeks so they can take over medications. Follow up with your outpatient product support technician Dr. Bui within 3 weeks of discharge Follow up with your Primary Care Physician in approximately 2 weeks from discharge from hospital ANTICOAGULATION PLAN: Goal INR: 2.5-3.5 Reason: bioprosthetic MVR Time period: 3 months Appointment: Referral made to Coumadin Clinic at [facility] [address] [place] [address] APPT DETAILS 04/04/2025. Please plan to arrive 60-90 minutes prior to appointment for labs (CBC BMP INR and chest x-ray. If you need an EKG it will be performed in the office during your visit. Your appointment is located at [facility] located at [address] [facility] which is connected to [facility] at [address] [facility]. Please [facility] to [facility] prior to your appt. Once entering through [facility] entrance,there is a kiosk to check in. After checking in, please ask to be directed to ground floor [facility] where any pre-appointment testing will be completed. Once done with these, please ask staff to direct you to [facility] which will be the easternmost location when [facility]. You will go to the second floor, take a right out of the elevators, and look for a sign that says surgery. You will wait in that waiting area until someone calls your name for your appointment. Thank you for allowing us to be involved in your healthcare. [facility] - Heart and Vascular [phone] INTERVENTIONAL NEPHROLOGY DISCHARGE INSTRUCTIONS Dressing Care: leave dressing in place. Keep Dry SUTURES are expected to be absorbed. May not be completely absorbed by the time the catheter needs to come out. You will be scheduled for catheter removal in the week after you complete antibiotics Instructions: If you have one or more of the following, please call your physician: A. Redness or swelling of the operative site. B. Persistent bleeding through bandage. C. Severe pain which is not relieved by oral pain medication. D. Temperature above 101 degrees or severe chilling. E. Foul odor of drainage. If you are unable to reach your physician with an urgent or severe problem: 1. Call the nephrology resident at [phone] . 2. Call the emergency room at [phone]. Post Moderate Sedation instructions: During the procedure, you received sedation medications that might linger in your system up to 24 hours after administration. Therefore, for the next 24 hours, donot drive a car or use heavy equipment. An adult should drive you home and stay with you after you have had moderate sedation. Follow your caregiver's advice about making changes to your diet, activity, or medicine. Avoid hardexercise right after having moderate sedation. Do not drink alcoholic beverages, such as beer and wine etc. Do not make important decisions for 24 hours (one day) after having moderate sedation like big financial decisions, selling property etc. Medications: IF prescribed pain medications, do not take on an empty stomach. Do not drive, drink alcohol or operate machinery while taking medication.; we have not made any changes to your previously prescribed medications. 03/22/2025 1:55 PM Physician: Garcia Gil Signed: LANRE Simms 03/23/2025 Cosigned by Rahul Hernandez MD at 03/23/2025 3:17 PM CDT documented in this encounter Discharge Instructions * Discharge Instructions* Garcia Gil MD - 03/02/2025 3:45 PM CDT A Note From Your Doctors: Mr. Marshall Espinal Jr., You were admitted to the hospital as a transfer from [facility] for concerns for an abscess in your spleen. You presented to [facility] for a two week history of left flank pain, with concerns for kidney stone. Imaging there did not show any kidney stones, but did show a small fluid filled lesion of the spleen. They were concerned that the lesion was a possible abscess so they transferred you to [facility] for further workup. Our interventional radiologists were consulted, and after they reviewedyour images, they did not feel strongly that the lesion was an abscess and thus did not require anysurgery to drain the fluid. We did multiple tests to see if you had a possible infection, but did Please continue taking your home medications as prescribed. Please follow up with your primary caredoctor on discharge Wound Care/Activity Instructions: MEDICATIONS: Resume your home medications other than those changed, removed, or added as detailed below. Current Discharge Medication List You have not been prescribed any medications. If you have any questions about your medications, please be sure to ask the pharmacy when you belt picker your prescription. You may also call your primary provider to ask if you should be taking your medication. FOLLOW-UP: It is important that you follow-up with all appointments that have been made on your behalf. These appointments include: Additionally, we have requested appointments with the following: You will be contacted within 3 days of discharge from the hospital by the receptionist scheduler regarding your follow up appointments, as listed above, after leaving the hospital. If you are not contacted pleasecall the number . If a follow-up with your primary care provider has not been scheduled, please schedule an appointment to follow-up on your hospitalization. If there is a conflict, please call the clinic ahead of time and reschedule the appointment. CONCERNING SYMPTOMS: When to call your healthcare provider: Call your healthcare provider immediately if you have any of the following: - Dizziness - Weakness in arms/legs - Fever of 101??F or higher - Shaking chills - Intractable nausea and vomiting - Severe headache - Confusion/altered mental status - Seizures (convulsions) If you are unable to reach your primary provider, please go to the nearest emergency room or call EMS ([phone]). Regards, Internal Medicine Department [facility] [address] [place] [address] CARDIAC SURGERY POST-OP INSTRUCTIONS For NON-URGENT questions: Call [phone] during 8am-4pm and follow the prompts. For URGENT questions: Call [phone] during 7am-6pm, if after 6pm call [phone] and ask for the Cardiac Surgeon electrical installation supervisor for shortness of breath, new or worsening pain, increased swelling in legs, dizziness, or signs of infection (fever, chills, and wound redness, warmth, or purulent drainage) No driving for at least 6-8 weeks from surgery date until cleared by Physician or while taking narcotic pain medication. Gradually increase your walking and activity each day. If taking a narcotic pain medication, you can take over the counter Miralax or Colace to help prevent constipation. Shower daily! No tub baths, pools, or hot tubs until cleared by physician. Leave dressings in place (Cardiac Surgery Team will remove in clinic at follow up appointment). Guaze dressings should be changed daily. If wounds are draining clear or small amount of bloody fluid this is ok. If they are draining pus or milky fluid call Cardiac Surgery Team immediately. Weigh yourself daily, if you notice a 5lb weight increase in 2 days, call us so we can adjust your medications. It takes 6-8 weeks for your sternum to fully heal! Follow these precautions during this time to ensure proper healing. Sleep on your back! Do not sleep on your side or stomach When you are riding in a car, sit in the back seat. Do not lift more than 10 lbs. Do not push or pull things. Please take your blood pressure twice a day, in the morning and at night. Keep a log to bring into your follow up appointment so we can adjust medications if needed. If the top number of your blood pressure is consistently higher than 140 or lower than 100, please call the cardiac surgery team at the numbers listed below. You will be given a prescriptions for 14-30 days. We typically do not refill medications. You will need to see your product support technician and PCP in the next few weeks so they can take over medications. Follow up with your outpatient product support technician Dr. Bui within 3 weeks of discharge Follow up with your Primary Care Physician in approximately 2 weeks from discharge from hospital ANTICOAGULATION PLAN: Goal INR: 2.5-3.5 Reason: bioprosthetic MVR Time period: 3 months Appointment: Referral made to Coumadin Clinic at [facility] [address], [address] [place] [address] APPT DETAILS 04/04/2025. Please plan to arrive 60-90 minutes prior to appointment for labs (CBC BMP INR and chest x-ray. If you need an EKG it will be performed in the office during your visit. Your appointment is located at [facility] located at [address] which is connected to [facility] at [address]. Please [facility] to [facility] prior to your appt. Once entering through [facility] entrance,there is a kiosk to check in. After checking in, please ask to be directed to ground floor [facility] where any pre-appointment testing will be completed. Once done with these, please ask staff to direct you to [facility] which will be the easternmost location when leaving [facility] where[facility] work was completed. You will go to the second floor, take a right out of the elevators, and look for a sign that says surgery. You will wait in that waiting area until someone calls your name for your appointment. Thank you for allowing us to be involved in your healthcare. [facility] - Heart and Vascular [phone] INTERVENTIONAL NEPHROLOGY DISCHARGE INSTRUCTIONS Dressing Care: leave dressing in place. Keep Dry SUTURES are expected to be absorbed. May not be completely absorbed by the time the catheter needs to come out. You will be scheduled for catheter removal in the week after you complete antibiotics Instructions: If you have one or more of the following, please call your physician: A. Redness or swelling of the operative site. B. Persistent bleeding through bandage. C. Severe pain which is not relieved by oral pain medication. D. Temperature above 101 degrees or severe chilling. E. Foul odor of drainage. If you are unable to reach your physician with an urgent or severe problem: 1. Call the nephrology resident at [phone] . 2. Call the emergency room at [phone]. Post Moderate Sedation instructions: During the procedure, you received sedation medications that might linger in your system up to 24 hours after administration. Therefore, for the next 24 hours, donot drive a car or use heavy equipment. An adult should drive you home and stay with you after you have had moderate sedation. Follow your caregiver's advice about making changes to your diet, activity, or medicine. Avoid hardexercise right after having moderate sedation. Do not drink alcoholic beverages, such as beer and wine etc. Do not make important decisions for 24 hours (one day) after having moderate sedation like big financial decisions, selling property etc. Medications: IF prescribed pain medications, do not take on an empty stomach. Do not drive, drink alcohol or operate machinery while taking medication.; we have not made any changes to your previously prescribed medications. 03/22/2025 1:55 PM Physician: Garcia Gil documented in this encounter Medications at Time of Discharge ampicillin 2 g in NaCl IV 0.9 % 100 mL - IV ampicillin 2g every 8 hours (renally dosed), consider continuous infusion outpatient to help with easier administration. - Duration of therapy 6 weeks from date of MVR, 03/15/2025 - EOT 04/26/2025. - Weekly labs: CBC w/ diff, CMP, please fax results to [facility] Infectious disease clinic, fax [phone], Attn Yesica Cabello PA-C 03/21/2025 04/26/20 25 aspirin (Aspirin) 81 MG chew tablet Take 1 (one) tablet by mouth once daily (chew and swallow) 30 tablet 03/23/2025 11:32 AM CDT 03/24/2025 cefTRIAXone 2 g in NaCl IV 0.9 % 50 mL - IV ceftriaxone 2g every 12 hours - Duration of therapy 6 weeks from date of MVR, 03/15/2025 - EOT 04/26/2025. - Weekly labs: CBC w/ diff, CMP, please fax results to [facility] Infectious disease clinic, fax [phone], Attn Yesica Cabello PA-C 03/21/2025 04/26/20 25 furosemide (Lasix) 20 MG tablet Take 1 (one) tablet by mouth once daily for 30 days 30 tablet 03/23/2025 11:32 AM CDT 03/24/2025 04/23/20 25 omeprazole (PriLOSEC) 40 MG capsule Take 1 (one) capsule by mouth daily before breakfast potassium chloride ER 10 MEQ tablet Take 1 (one) tablet by mouth once daily for 30 days Stop taking when no longer taking furosemide/Lasix 30 tablet 03/23/2025 11:32 AM CDT 03/24/2025 04/23/20 25 warfarin (Coumadin) 2 MG tablet To start, take 2 tablets (4 mg) by mouth once daily. Dose will be adjusted initially by Dr. Hernandez's office according to your INR results. Starting 04/05/25, the Anticoagulation Clinic at [facility] will be dosing your warfarin 60 tablet 03/23/2025 11:32 AM CDT 03/23/2025 documented as of this encounter Progress Notes * Fina Doyle, RN - 03/23/2025 3:36 PM CDT Care Coordination Progress Note Expected Discharge Date: 03/23/2025 Discharge Plan: Home with Home Health and IV antibiotics CM received a call from [facility] regarding discharge order for home IV antibiotics dosage/route and time to be given with clear instructions and the INR lab draw and a questionof what was the last dose of Warfarin. CM sent message to Ofelia DE DIOS informing her that [facility] is requesting an updated home health order to address the above. CM received an instant chat from Ofelia I cannot add it to a discharged patient Special Instructions (Optional): Per ID final Recommendations: - IV ceftriaxone 2g every 12 hours- next dose due 2100 on 03/23/25 - IV ampicillin 2g every 8 hours (renally dosed-individualized dose for this pt, it has already been calculated no adjustments needed), consider continuous infusion outpatient to help with easier administration. Next dose 2200 on 03/23/25. - Duration of therapy 6 weeks from date of MVR, 03/15/2025 - EOT 04/26/2025. - Weekly labs: CBC w/ diff, CMP, please fax results to [facility] Infectious disease clinic, fax [phone], Attn Yesica Cabello PA-C MM Draw INR on 03/24/25 prior to 2pm, last INR on was 1.3, he has been taking 4 mg of warfarin daily for at least 3 days . Family Support (Name and Phone): Extended Emergency Contact Information Primary Emergency Contact: irma espinal Mobile Relation: Spouse Preferred language: [place] Broke Handler needed? No Secondary Emergency Contact: Katie Diggs Mobile Relation: Daughter Preferred language: [place] Broke Handler needed? No Transportation at Discharge: Family: READMISSION RISK SCORE is 14* at 7:37 AM 03/24/2025.: Name: Fina Doyle RN [id number] * Sri Sandhu, RD/LD - 03/23/2025 12:59 PM CDT BRIEF SYNOPSIS: Nutrition Risk Identified and evaluation in progress Nutrition Plan: Current diet order: Cardiac Standard Current supplement order: Ensure HP BID, Pb BID Recommendation to Physician: - Consider potassium restriction if K+ continues to trend up CLINICAL NUTRITION ASSESSMENT: Pt scheduled for reassessment. Pt currently on cardiac diet, ensure HP BID and Pb BID ordered. Pt with good intake - 100% average in the past 48 hours. No supplement intake documented at this time. BM 03/23. Labs reviewed- K+: 4.6. RD will continue to monitor. Med/Surg History and Clinical Diagnoses: 65 year old male w/ PMHx significant for HTN, COPD, CKD who presented to [facility] with fevers/chills. Ultimately found to have Enterococcus bacteremia, splenic abscess, MV IE. Seen by ID and started on CTX/ampicillin. Admitted to ICU postop from [facility] 03/15. Height: 170.2 cm (5' 7.01) BMI: Body mass index is 28.15 kg/m??. BMI Range: Overweight IBW/lb (Calculated) Male: 148.048 Recent Weights/Methods 03/16/2025 0400 03/17/2025 0430 03/18/2025 0400 03/19/2025 0400 03/20/2025 0300 03/21/2025 0400 03/22/2025 0400 03/23/2025 0400 Weight: 86 kg (189 lb 9.5 oz) 86.5 kg (190 lb 9.6 oz) 86.5 kg (190 lb 11.2 oz) 86.6 kg (191 lb) 85.7 kg (189 lb) 82.5 kg (181 lb 12.8 oz) 83.5 kg (184 lb 1.6 oz) 81.6 kg (179 lb 12.8 oz) Weight Method : Bed scale Standing scale Bed scale Bed scale Bed scale Standing scale Bed scale Bedscale Unintentional weight change: reviewed, monitoring. PO INTAKE Current diet order: Cardiac Standard Nutrition recommendation: agree with current nutrition order Food Allergies: No known food allergies Last Percent Meal Eaten (%): 100 % (03/23/25742) 48 hr PO INTAKE Percent Meal Eaten (%) Av % Min: 100 % Max: 100 % Current supplement order: Ensure HP BID, Pb BID None Pain affecting intake: No Chewing/Swallowing: None GI Concerns: None Stools: Unmeasured Stool Occurrence: 1 (03/23/25742) Stool Appearance : Soft (03/23/25742) Skin/Wound: Incision to mouth, sternum, wound vac to sternum Estimated Needs: KCAL: 7520-6861 (30-35kcal/kg of IBW) Protein (g): 80-101 (1.2-1.5gm/kg of of IBW) Fluid (ml): 1 ml/kcal Needs based on: Kcal/kg- (Comment) (67kg of IBW) Recommended Access Route: PO Labs: Recent Labs Component Name 03/23/25 0054 09/0334003/21/25 043 NA 135* 136 134* POTASSIUM 4.6* 4.5 3.8 CO2 24 22 21* BUN 61* 59* 51* CREATININE 2.95* 2.85* 2.83* GLUCOSE 101* 106* 134* CALCIUM 9.0 9.0 8.8 ALT 67* 84* 105* ALKPHOS 168* 154* 169* AST 43* 37* 60* EGFR 23* 24* 24* Recent Labs Component Name 03/23/255303/22/2534003/21/25434 PHOS 3.7 3.2 3.8 Recent Labs Component Name 03/23/255303/22/2534003/21/25434 MAGNESIUM 2.0 2.0 1.8 Recent Labs Component Name 03/23/255203/22/2534003/21/25434 HGB 9.1* 8.4* 8.6* HCT 29.0* 25.5* 26.5* Recent Labs Component Name 03/16/25 031 HGBA1C 5.3 No data found. MEDICATIONS FOR CURRENT ENCOUNTER: SCHEDULED MEDICATIONS: 0.9% NaCl injection 3 mL, Intracatheter, q8h ampicillin (Omnipen) 2,000 mg in NaCl IV 0.9 % 100 mL IVPB, Intravenous, q8h aspirin chew tablet 81 mg, Oral, QDAY cefTRIAXone (Rocephin) syringe 2,000 mg, Intravenous, q12h heparin injection 5,000 Units, Subcutaneous, q8h lidocaine (Lidoderm) 5 % patch 1 patch, Transdermal, QDAY pantoprazole EC (Protonix) tablet 40 mg, Oral, QDAY warfarin (Coumadin) dose per provider, Other, QDay 1700 [COMPLETED] warfarin (Coumadin) tablet 5 mg, Oral, once warfarin [Held by Provider] atorvastatin (Lipitor) tablet 40 mg, Oral, AT BEDTIME [Held by Provider] polyethylene glycol 3350 (Miralax) packet 17 g, Oral, QDAY [Held by Provider] senna-docusate (Senokot-S) tablet 1 tablet, Oral, QDAY [START ON 03/24/2025] furosemide (Lasix) tablet 20 mg, Oral, QDAY [START ON 03/24/2025] potassium chloride ER (Klor-Con M) tablet 10 mEq, Oral, q24h CONTINUOUS MEDICATIONS: PRN MEDICATIONS: Or Or 0.9% NaCl injection 1-10 mL, Intracatheter, PRN albuterol-ipratropium (Duo-Neb) nebulizer solution 3 mL, Inhalation, q4h PRN calcium gluconate 2 g in 100 mL NaCl 0.675%, Intravenous, PRN dextrose IV 12.5 g, Intravenous, PRN dextrose IV 25 g, Intravenous, PRN glucagon (Glucagen) injection 1 mg, Subcutaneous, PRN glucose (Diabetic Use) oral gel, Oral, PRN magnesium sulfate 2 g in 50 mL bolus, Intravenous, PRN methocarbamol (Robaxin) injection 500 mg, Intravenous, q6h PRN ondansetron (Zofran) injection 4 mg, Intravenous, q4h PRN oxyCODONE (immediate release) (Roxicodone) tablet 5 mg, Oral, q8h PRN potassium chloride 20 mEq in 100 mL SW bolus, Intravenous, PRN Nutrition Diagnostic Statement: Increased nutrient needs related to:: increased demands post surgery as evidenced by:: estimated energy needs ..;estimated protein needs .. Nutrition Diagnostic Statement Progress: Nutrition problem continues Nutrition Intervention: Meals and snacks:;Medical Food Supplements: Monitoring: GI, PO intake, WT, labs, medications Monitor per nutrition guidelines. Evaluation: Nutrition Goal: Total intake will meet estimated nutrient needs Nutrition Goal Timeframe: Throughout stay Nutrition Goal Progress: Continue with current goal Ascom [id number] * Fina Doyle RN - 03/23/2025 11:35 AM CDT Care Coordination Progress Note Expected Discharge Date: 03/23/2025 Discharge Plan: Home with Home Health Care and IV antibiotics Patient new to my service. Transferred from ICU. S/P MVR 03/15/25, Abscess spleen. Plan to discharge to home on IV antibiotics Ampicillin 2 gm IV q 8 hr EOT 04/26/25. , Currently on Rocephin and Ampicillin IV. Accepted with [facility] (pt choice) Accepted with [facility] (for home infusion, pt choice). Patient family in room awaiting teaching on IV antibiotic and home infusion. CM placed call to Kate Meyer at [facility] [phone] left message on her voicemail that patient is being discharged to home today and that family is in room awaiting teaching. [facility] left call back number. Family Support (Name and Phone): Extended Emergency Contact Information Primary Emergency Contact: irma espinal Mobile Relation: Spouse Preferred language: [place] Broke Handler needed? No Secondary Emergency Contact: Katie Diggs Mobile Relation: Daughter Preferred language: [place] Broke Handler needed? No Transportation at Discharge: Family: READMISSION RISK SCORE is 14 at 11:35 AM 03/23/2025.: Name: Fina Doyle, RN [id number] * De Frias RN - 03/23/2025 6:24 AM CDT Problem: Pain/Discomfort Goal: Patient exhibits reduced pain/discomfort as evidenced by pain scores Outcome: Progressing Goal: Patient uses pharmacological and non-pharmacological pain management strategies. Outcome: Progressing Goal: Patient verbalizes acceptable level of pain relief and ability to engage in desired activity. Outcome: Progressing Problem: Medication Adherence Goal: Consistently take medications as prescribed Outcome: Progressing Problem: Neurosensory - Adult Goal: Achieves stable or improved neurological status Description: INTERVENTIONS Outcome: Progressing Goal: Remains free of injury related to seizures activity Description: INTERVENTIONS: Outcome: Progressing Goal: Achieves maximal functionality and self care Description: INTERVENTIONS: Outcome: Progressing Problem: Respiratory - Adult Goal: Achieves optimal ventilation and oxygenation Description: INTERVENTIONS: Outcome: Progressing Problem: Cardiovascular - Adult Goal: Maintains optimal cardiac output and hemodynamic stability Description: INTERVENTIONS: Outcome: Progressing Goal: Absence of cardiac dysrhythmias or at baseline Description: INTERVENTIONS: Outcome: Progressing Problem: Skin/Tissue Integrity - Adult Goal: Skin integrity remains intact Description: INTERVENTIONS: Outcome: Progressing Goal: Incisions, wounds, or drain sites healing without S/S of infection Description: INFECTIONS: Outcome: Progressing Goal: Oral mucous membranes remain intact Description: INTERVENTIONS: Outcome: Progressing Problem: Neurovascular Musculoskeletal - Adult Goal: Return mobility to safest level of function Description: INTERVENTIONS: Outcome: Progressing Goal: Maintain proper alignment of affected body part Description: INTERVENTIONS: Outcome: Progressing Goal: Return ADL status to a safe level of function Description: INTERVENTIONS: Outcome: Progressing Goal: Absence or reduction of edema Description: INTERVENTIONS Outcome: Progressing Goal: Maintains or improves tissue perfusion Description: INTERVENTIONS Outcome: Progressing Problem: Gastrointestinal - Adult Goal: Minimal or absence of nausea and vomiting Description: INTERVENTIONS: Outcome: Progressing Goal: Maintains or returns to baseline bowel function Description: INTERVENTIONS: Outcome: Progressing Goal: Maintains adequate nutritional intake Description: INTERVENTIONS: Outcome: Progressing Problem: Genitourinary - Adult Goal: Maintains or returns to baseline genitourinary function Description: INTERVENTIONS: Outcome: Progressing Problem: Infection - Adult Goal: Infections are decreased or avoided Description: INTERVENTIONS: Outcome: Progressing Problem: Metabolic/Fluid and Electrolytes - Adult Goal: Electrolytes maintained within normal limits Description: INTERVENTIONS: Outcome: Progressing Goal: Hemodynamic stability and optimal renal function maintained Description: INTERVENTIONS: Outcome: Progressing Goal: Glucose maintained within prescribed range Description: INTERVENTIONS: Outcome: Progressing Problem: Hematologic - Adult Goal: Maintains hematologic stability Description: INTERVENTIONS: Outcome: Progressing Problem: Fall Risk Goal: Fall risk and fall related injury risk are minimized (interventions related to the fall risk can be found in the flowsheet documentation) Outcome: Progressing Problem: Nutrient: Increased nutrient needs (specify) Goal: Total intake will meet estimated nutrient needs Outcome: Progressing Problem: Balance Goal: LTG - Patient will demonstrate Intervention to enhance balance for safe completion of daily activities Outcome: Progressing Problem: Mobility Goal: LTG - Patient will ambulate community distance Outcome: Progressing * Sierra Hardy PT - 03/22/2025 4:23 PM CDT [facility] Department of Physical Medicine & Rehabilitation Progress Note Patient: Marshall Espinal . Med Record Number: [id number] Date of : 1960 Age: [age] year old Pt observed walking IND'ly with vision care associate earlier in day. Therapist had conversation with patient and per pt, he feels comfortable with functional mobility at this time and has no mobility concerns upon returning home. Pt d/c'ed from skilled inpatient PT at this time. * Jayne Oro RN - 03/22/2025 1:25 PM CDT Care Coordination Progress Note Expected Discharge Date: 03/24/2025 Discharge Plan: Shad STANLEY called to inform will only be able to administer IV abx between the hours of 8-4 pm. Will follow up with CM and [facility] prior to discharge. Family Support (Name and Phone): Extended Emergency Contact Information Primary Emergency Contact: irma espinal Mobile Relation: Spouse Preferred language: [place] Broke Handler needed? No Secondary Emergency Contact: Katie Diggs Mobile Relation: Daughter Preferred language: [place] Broke Handler needed? No Transportation at Discharge: Family: READMISSION RISK SCORE is 15 at 1:25 PM 03/22/2025.: Name: Jayne Oro RN * Franki Stone RN - 03/22/2025 12:33 PM CDT Interventional Radiology Nursing - End Procedure Note Sedation: Versed: 1 mg, Fentanyl: 50 mcg Sedation start time: 1214 hours Procedure start time: 1217 hours Procedure end time: 1228 hours Fluoroscopy time: 0.2 min * Erica Contreras OT - 03/22/2025 12:30 PM CDT [facility] Department of Physical Medicine & Rehabilitation Occupational Therapy Progress Note Patient: Marshall Espinal Jr. Med Record Number: [id number] Date of : 1960 Age: [age] year old 03/22/25 1230 Missed Visit Missed Visit Procedure Off Floor (IVR) * Aime Hickman MD - 03/22/2025 10:47 AM CDT CTS ICU to Floor Transfer Note SUBJECTIVE History and Hospital Course: 64 year old male with past medical history for HTN, CKD w/ hx of nephrolithiasis and GERDwho presented from OSH for surgical evaluation of his mitral valve endocarditis. Patient developed fever/chills, left sided flank pain - CT abdomen/pelvix with concern for splenic abscess, BCx + who is being evaluated for E. Faecalis - echo w/ MV vegetation 1x1.2cm w/ mild MR - transfer to [facility]. Patient is now s/p mitral valve replacement with a 31 mm mitris bioprosthetic mitral valve.7 Days Post-Op Post Op Course (if applicable): Surgery: Mitral valve replacement Hardware: 31 mm Mitris Bioprosthetic mitral valve DOS: 03/15/2025 Surgeon: Beverly Hernandez MD No major events, other than accelerated junctional and first degree AV blocks, overall did well post-operatively. Beta blockers held due to this. Statins held due to his elevated LFTs, please watch trend closely. Requires fpc antibiotics for his Endocarditis per ID. Requires power line for vascular access for Abx, scheduled for placement with Nephrology (03/22). OBJECTIVE Physical Exam General: no acute distress and sitting in chair during interview Lungs: non-labored breathing on RA Chest Wall: sternotomy covered with dressing C/D/I, equal rise and fall of chest, and CT sites covered with dressing C/D/I Heart: R/R/R, No murmurs/clicks on auscaltation, and CT rub present Abd: soft, non-distended and non-tender Extremities: warm distally x4 Pulses: 2+ throughout Skin: W/D/N Neuro: A/A/O x 3, Neuro exam grossly intact, and No acute deficits noted Active Consultants (ID, endocrine, nephrology, cardiology, EP, etc): Nephrology, Infectious diseases ASSESSMENT/PLAN: Neuro/Psych/Pain: Pain Regimen: Oxy 5 mg q8H, Robaxin 500 q6H, Lidocaine patches prn Home Psych meds (if applicable): NA Cardiac: Rhythm today: Sinus Pacing wires? no Amiodarone? no BB: Held Statin: Held, watch LFTs trend ASA: yes Plavix: no Post Op EF: 67% GDMT: no Pulm: Chest Tubes? no Oxygen requirement? no Last CXR findings: No acute issues, date: 03/22/25 /Renal: Hx of Renal Dysfunction: yes; baseline Cr: 3-4, uncertain Graham? no Last BUN/Cr: 59/2.85 Diuresis? yes; if yes, regimen: Lasix 40 mg OD PO + KCL 20 mEq GI: Prophylaxis: PPI, Zofran Last BM: today (03/22/25) Endo: Pre Op A1c: 5.3 Hx of Diabetes: no Insulin regimen: NA Heme: Last H/H: 8.4/25.5 Last Plt count: 274 Coumadin? yes; if yes, goal INR: 2-3, currently on 5 mg OD dosage and INR of 1.3 DVT prophylaxis: SQH, ASA ID: Last WBC count: 13 No signs and symptoms of infection at this time Dispo: transfer to floor 8 N; pending INR therapeutic range; pending home health for discharge Staff: MD Aime Leslie MD 03/22/2025 [facility] 10:48 AM Cosigned by Rahul Hernandez MD at 03/22/2025 3:20 PM CDT * Maicol Mayer MD - 03/22/2025 9:03 AM CDT ICU CONSULT 03/22/2025 ADMITTING/PRIMARY TEAM: [facility] MICU CONSULTED FOR: ICU assistance/vent management Admission date: 03/01/2025 9:44 PM HPI // SUBJECTIVE History was obtained from patient, and medical chart Marshall Espinal Jr. is a 65 year old male w/ PMHx significant for HTN, COPD, CKD who presented to [facility] with fevers/chills. Ultimately found to have Enterococcus bacteremia, splenic abscess, MV IE. Seen by ID and started on CTX/ampicillin. Admitted to ICU postop from [facility] 03/15. Patient arrives intubated/sedated. Easy airway per anesthesia. SINTIA initially with normal LV/RV function and confirmed mod/severe MR w/ vegetation -- post pump normal LV and RV with mean gradient 1. Has A and V wires, currently backup paced. Has meds CT x 2. Had to reopen for anterior wall bleeding.Ultimately required 2 U pRBC, 1 FFP, 1 plt, 300 cell saver. Received methadone and TTP block. Interval hx: Doing well this AM. Walking multiple laps. PHYSICAL EXAM Temp: [97.8 ??F (36.6 ??C)-99.2 ??F (37.3 ??C)] 98.3 ??F (36.8 ??C) Pulse: [90-109] 92 Resp: [11-27] 19 BP: (89-128)/(57-95) 95/68 I/O last 2 completed shifts: In: 1586.1 [P.O.:1552; I.V.:34.1] Out: 3250 [Urine:3250] General NAD, resting in chair HEENT: NC AT Cardio: Accelerated junctional Resp: Normal resp effort Abdomen: +BS Extremities: No edema Skin: No significant abrasions Neurological: Nonfocal ASSESSMENT & PLAN Abscess of spleen (POA: Yes) HTN (hypertension) (POA: Yes) Diverticulosis (POA: Yes) Enterococcal bacteremia (POA: Yes) Mitral valve vegetation (HCC) (POA: Yes) COPD (chronic obstructive pulmonary disease) (HCC) (POA: Yes) Endocarditis, suspected (POA: Yes) CKD (chronic kidney disease) stage 5, GFR less than 15 ml/min (HCC) (POA: Yes) NEURO -- Delirium ppx: Encourage normal sleep-wake cycle: lights on during day, lights off at night, frequent re-orientation, minimize sleep interruptions. 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 ASA, statin on hold d/t LFTs. -- Post PW pull TTE -- Hx HTN, -- currently holding statin, beta iveth, amlopine PULM -- Aggressive chest physiotherapy with aerobika and IS. Encourage ambulation, OOB, PT/OT to avoid post op atelectasis GI -- Bowel laura -- Diet as tolerated -- Ulceration ppx -- Transaminitis likely d/t low perfusion state with hypotensive episodes. Improving, continue trend. RENAL -- CKD w/ BL Cr ~ 3. -- FBG -1 -- will repeat light -- Making good urine at this time, will continue to monitor UOP and renal function. -- Monitor renal function, lytes, I/O. Avoid nephrotoxic agents ENDO -- Trend sugars, goal 140-180. Hypoglycemia protocol. ID -- Surgical abx ppx -- Enterococcus bacteremia, MV IE, splenic abscess. ID on board, on CTX/amp since 03/03. BCx neg 03/04. S/p MVR 03/15, f/u intra-op Cx. F/u with iD. EOT planned for 04/26 -- will need PICC --will consult Interventional Radiology for placement HEME/ONC -- increase warfarin 5 mg with the goal of INR of 2-3 -- Monitor H&H, transfuse if needed for goal Hb > 7, plt > 10 (> 30 if MCS, > 50 ifactively bleeding) D/c CVC and TTF. Will need PiCC vs powerline prior to d/c for abx. Critical Care Time: 34 Pt. is at high risk for complications and morbidity or mortality Pt. is critically ill with vital organ impairment or failure There is high probability of imminent or life threatening deterioration in the patient's condition Time involved in the performance of separately billable procedures, teaching, reviewing education material was not counted towards critical care time. Patient is unable or incompetent to participate in giving a history and/or making decisions and discussion is necessary for determining treatment decisions. Maicol Mayer MD [employer] of Emergency Medicine Division of Pulmonary, Critical Care and Sleep Medicine [facility] Date of service - 03/21/2025 * Jayne Oro RN - 03/21/2025 12:44 PM CDT Care Coordination Progress Note Expected Discharge Date: 03/22/2025 Discharge Plan: Recommended home with home health and IV home infusions. [facility] is following, [facility] infusions accepted for fpc antibiotics IV cetftrazone 2g q12h, IV ampicillin 2g q8h, EOT 04/26, will also need lab work for warfarin. CM will continue to follow for additional d/c needs. Family Support (Name and Phone): Extended Emergency Contact Information Primary Emergency Contact: irma espinal Mobile Relation: Spouse Preferred language: [place] Broke Handler needed? No Secondary Emergency Contact: Katie Diggs Mobile Relation: Daughter Preferred language: [place] Broke Handler needed? No Transportation at Discharge: Family: READMISSION RISK SCORE is 15 at 12:44 PM 03/21/2025.: Name: Jayne Oro RN * Maicol Mayer MD - 03/21/2025 11:50 AM CDT ICU CONSULT 03/21/2025 ADMITTING/PRIMARY TEAM: [facility] MICU CONSULTED FOR: ICU assistance/vent management Admission date: 03/01/2025 9:44 PM HPI // SUBJECTIVE History was obtained from patient, and medical chart Marshall Espinal Jr. is a 65 year old male w/ PMHx significant for HTN, COPD, CKD who presented to [facility] with fevers/chills. Ultimately found to have Enterococcus bacteremia, splenic abscess, MV IE. Seen by ID and started on CTX/ampicillin. Admitted to ICU postop from [facility] 03/15. Patient arrives intubated/sedated. Easy airway per anesthesia. SINTIA initially with normal LV/RV function and confirmed mod/severe MR w/ vegetation -- post pump normal LV and RV with mean gradient 1. Has A and V wires, currently backup paced. Has meds CT x 2. Had to reopen for anterior wall bleeding.Ultimately required 2 U pRBC, 1 FFP, 1 plt, 300 cell saver. Received methadone and TTP block. Interval hx: Doing well this AM. Walking multiple laps. The patient has first-degree block this morning PHYSICAL EXAM Temp: [97 ??F (36.1 ??C)-98.9 ??F (37.2 ??C)] 98 ??F (36.7 ??C) Pulse: [85-129] 88 Resp: [8-41] 22 BP: (101-154)/(65-121) 117/75 I/O last 2 completed shifts: In: 154.8 [I.V.:154.8] Out: 2175 [Urine:2175] General NAD, resting in chair HEENT: NC AT Cardio: Accelerated junctional Resp: Normal resp effort Abdomen: +BS Extremities: No edema Skin: No significant abrasions Neurological: Nonfocal ASSESSMENT & PLAN Abscess of spleen (POA: Yes) HTN (hypertension) (POA: Yes) Diverticulosis (POA: Yes) Enterococcal bacteremia (POA: Yes) Mitral valve vegetation (HCC) (POA: Yes) COPD (chronic obstructive pulmonary disease) (HCC) (POA: Yes) Endocarditis, suspected (POA: Yes) CKD (chronic kidney disease) stage 5, GFR less than 15 ml/min (HCC) (POA: Yes) NEURO -- Delirium ppx: Encourage normal sleep-wake cycle: lights on during day, lights off at night, frequent re-orientation, minimize sleep interruptions. 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 ASA, statin on hold d/t LFTs. -- Post PW pull TTE -- Hx HTN, holding home amlodipine 5 and metop succ 25. -- currently holding statin PULM -- Aggressive chest physiotherapy with aerobika and IS. Encourage ambulation, OOB, PT/OT to avoid post op atelectasis GI -- Bowel laura -- Diet as tolerated -- Ulceration ppx -- Transaminitis likely d/t low perfusion state with hypotensive episodes. Improving, continue trend. RENAL -- CKD w/ BL Cr ~ 3. -- FBG -1 -- will repeat light -- Making good urine at this time, will continue to monitor UOP and renal function. -- Monitor renal function, lytes, I/O. Avoid nephrotoxic agents ENDO -- Trend sugars, goal 140-180. Hypoglycemia protocol. ID -- Surgical abx ppx -- Enterococcus bacteremia, MV IE, splenic abscess. ID on board, on CTX/amp since 03/03. BCx neg 03/04. S/p MVR 03/15, f/u intra-op Cx. F/u with iD. EOT planned for 04/26 -- will need PICC --will consult Interventional Radiology for placement HEME/ONC -- warfarin 4 mg with the goal of INR of 2-3 -- Monitor H&H, transfuse if needed for goal Hb > 7, plt > 10 (> 30 if MCS, > 50 ifactively bleeding) D/c CVC and TTF. Will need PiCC vs powerline prior to d/c for abx. Critical Care Time: 31 Pt. is at high risk for complications and morbidity or mortality Pt. is critically ill with vital organ impairment or failure There is high probability of imminent or life threatening deterioration in the patient's condition Time involved in the performance of separately billable procedures, teaching, reviewing education material was not counted towards critical care time. Patient is unable or incompetent to participate in giving a history and/or making decisions and discussion is necessary for determining treatment decisions. Maicol Mayer MD [employer] of Emergency Medicine Division of Pulmonary, Critical Care and Sleep Medicine [facility] Date of service - 03/21/2025 * Marshall Monson, PT - 03/20/2025 1:40 PM CDT [facility] Department of Physical Medicine & Rehabilitation Progress Note Patient: Marshall Espinal Jr. Med Record Number: [id number] Date of : 1960 Age: [age] year old 03/20/25 1300 Missed Visit Missed Visit Refused Pt politely declines therapy at this time as his lunch just arrived and he has been up walking multiple laps today already. * Maicol Mayer MD - 03/20/2025 7:45 AM CDT ICU CONSULT 03/20/2025 ADMITTING/PRIMARY TEAM: [facility]TS MICU CONSULTED FOR: ICU assistance/vent management Admission date: 03/01/2025 9:44 PM HPI // SUBJECTIVE History was obtained from patient, and medical chart Marshall Espinal Jr. is a 65 year old male w/ PMHx significant for HTN, COPD, CKD who presented to [facility] with fevers/chills. Ultimately found to have Enterococcus bacteremia, splenic abscess, MV IE. Seen by ID and started on CTX/ampicillin. Admitted to ICU postop from [facility] 03/15. Patient arrives intubated/sedated. Easy airway per anesthesia. SINTIA initially with normal LV/RV function and confirmed mod/severe MR w/ vegetation -- post pump normal LV and RV with mean gradient 1. Has A and V wires, currently backup paced. Has meds CT x 2. Had to reopen for anterior wall bleeding.Ultimately required 2 U pRBC, 1 FFP, 1 plt, 300 cell saver. Received methadone and TTP block. Interval hx: Doing well this AM. Walking multiple laps. The patient has first-degree block this morning PHYSICAL EXAM Temp: [97.8 ??F (36.6 ??C)-98.7 ??F (37.1 ??C)] 97.8 ??F (36.6 ??C) Pulse: [74-129] 79 Resp: [11-27] 17 BP: (87-137)/(58-93) 103/67 I/O last 2 completed shifts: In: 1040 [P.O.:1040] Out: 3575 [Urine:3575] General NAD, resting in chair HEENT: NC AT Cardio: Accelerated junctional Resp: Normal resp effort Abdomen: +BS Extremities: No edema Skin: No significant abrasions Neurological: Nonfocal ASSESSMENT & PLAN Abscess of spleen (POA: Yes) HTN (hypertension) (POA: Yes) Diverticulosis (POA: Yes) Enterococcal bacteremia (POA: Yes) Mitral valve vegetation (HCC) (POA: Yes) COPD (chronic obstructive pulmonary disease) (HCC) (POA: Yes) Endocarditis, suspected (POA: Yes) CKD (chronic kidney disease) stage 5, GFR less than 15 ml/min (HCC) (POA: Yes) NEURO -- Delirium ppx: Encourage normal sleep-wake cycle: lights on during day, lights off at night, frequent re-orientation, minimize sleep interruptions. 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 ASA, statin on hold d/t LFTs. -- Post PW pull TTE -- Hx HTN, holding home amlodipine 5 and metop succ 25. -- currently holding statin PULM -- Aggressive chest physiotherapy with aerobika and IS. Encourage ambulation, OOB, PT/OT to avoid post op atelectasis GI -- Bowel laura -- Diet as tolerated -- Ulceration ppx -- Transaminitis likely d/t low perfusion state with hypotensive episodes. Improving, continue trend. RENAL -- CKD w/ BL Cr ~ 3. -- FBG -1 will give 20 KCL mEq -- Making good urine at this time, will continue to monitor UOP and renal function. -- Monitor renal function, lytes, I/O. Avoid nephrotoxic agents ENDO -- Trend sugars, goal 140-180. Hypoglycemia protocol. ID -- Surgical abx ppx -- Enterococcus bacteremia, MV IE, splenic abscess. ID on board, on CTX/amp since 03/03. BCx neg 03/04. S/p MVR 03/15, f/u intra-op Cx. F/u with iD. EOT planned for 04/26 -- will need PICC closer to d/c HEME/ONC -- warfarin 4 mg with the goal of INR of 2-3 -- Monitor H&H, transfuse if needed for goal Hb > 7, plt > 10 (> 30 if MCS, > 50 ifactively bleeding) D/c CVC and TTF. Will need PiCC vs powerline prior to d/c for abx. Date of Service: 03/20/2025 Maicol Mayer MD Pulmonary/Critical Care Medicine 03/20/2025 * Jennyfer Dallas I., DO - 03/19/2025 10:07 AM CDT ICU CONSULT 03/19/2025 ADMITTING/PRIMARY TEAM: CTS MICU CONSULTED FOR: ICU assistance/vent management Admission date: 03/01/2025 9:44 PM HPI // SUBJECTIVE History was obtained from patient, and medical chart Marshall Espinal Jr. is a 65 year old male w/ PMHx significant for HTN, COPD, CKD who presented to [facility] with fevers/chills. Ultimately found to have Enterococcus bacteremia, splenic abscess, MV IE. Seen by ID and started on CTX/ampicillin. Admitted to ICU postop from [facility] 03/15. Patient arrives intubated/sedated. Easy airway per anesthesia. SINTIA initially with normal LV/RV function and confirmed mod/severe MR w/ vegetation -- post pump normal LV and RV with mean gradient 1. Has A and V wires, currently backup paced. Has meds CT x 2. Had to reopen for anterior wall bleeding.Ultimately required 2 U pRBC, 1 FFP, 1 plt, 300 cell saver. Received methadone and TTP block. Interval hx: Doing well this AM. Walking multiple laps. Had some junctional rhythm this AM but improved. PHYSICAL EXAM Temp: [98 ??F (36.7 ??C)-98.9 ??F (37.2 ??C)] 98.4 ??F (36.9 ??C) Pulse: [71-105] 104 Resp: [5-27] 10 BP: (117-170)/(74-98) 117/81 I/O last 2 completed shifts: In: 560 [P.O.:560] Out: 1750 [Urine:1750] General NAD, resting in chair HEENT: NC AT Cardio: Accelerated junctional Resp: Normal resp effort Abdomen: +BS Extremities: No edema Skin: No significant abrasions Neurological: Nonfocal ASSESSMENT & PLAN Abscess of spleen (POA: Yes) HTN (hypertension) (POA: Yes) Diverticulosis (POA: Yes) Enterococcal bacteremia (POA: Yes) Mitral valve vegetation (HCC) (POA: Yes) COPD (chronic obstructive pulmonary disease) (HCC) (POA: Yes) Endocarditis, suspected (POA: Yes) CKD (chronic kidney disease) stage 5, GFR less than 15 ml/min (HCC) (POA: Yes) NEURO -- Delirium ppx: Encourage normal sleep-wake cycle: lights on during day, lights off at night, frequent re-orientation, minimize sleep interruptions. 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 ASA, statin on hold d/t LFTs. -- Post PW pull TTE -- Hx HTN, holding home amlodipine 5 and metop succ 25. -- lasix 20 IV x 1 PULM -- Aggressive chest physiotherapy with aerobika and IS. Encourage ambulation, OOB, PT/OT to avoid post op atelectasis GI -- Bowel laura -- Diet as tolerated -- Ulceration ppx -- Transaminitis likely d/t low perfusion state with hypotensive episodes. Improving, continue trend. RENAL -- CKD w/ BL Cr ~ 3. 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 Making good urine at this time, will continue to monitor UOP and renal function. -- Monitor renal function, lytes, I/O. Avoid nephrotoxic agents ENDO -- Trend sugars, goal 140-180. Hypoglycemia protocol. ID -- Surgical abx ppx -- Enterococcus bacteremia, MV IE, splenic abscess. ID on board, on CTX/amp since 03/03. BCx neg 03/04. S/p MVR 03/15, f/u intra-op Cx. F/u with iD. EOT planned for 04/26, will need PICC closer to d/c HEME/ONC -- Monitor H&H, transfuse if needed for goal Hb > 7, plt > 10 (> 30 if MCS, > 50 ifactively bleeding) D/c CVC and TTF. Will need PiCC vs powerline prior to d/c for abx. Date of Service: 03/19/2025 Jennyfer Dallas DO Pulmonary/Critical Care Medicine 03/19/2025 * Ronda Lezama, PT - 03/19/2025 9:07 AM CDT [facility] Physical Medicine and Rehabilitation Physical Therapy Progress Note Patient: Marshall Espinal Jr. Med Record Number: [id number] Date of : 1960 Age: [age] year old PPE worn by staff: gloves;mask - procedural PPE worn by patient: socks - clean;gown - patient, clean Tech: N/A Recommendations: Discharge PT Discharge Recommendations: Patient would benefit from home health therapy progressing to OP therapy for cardiac rehab when appropriate Patient currently using no assistive device. SUBJECTIVE: Subjective: patientt agreeable to therapy PATIENT GOALS / WHAT MATTERS MOST TO THE PATIENT: Pain Assessment: Pain Assessment Pain Scale/Observation: No/denies pain PRECAUTIONS: Weight Bearing Status: (no restrictions) Activity Level: Activity as Tolerated Other Precautions: modified sternal precautions OBJECTIVE: At start of therapy session, patient found in patient bedside chair General Appearance: Patient is a 65 YM,NAD Vitals: (*Assess the 3 levels of oxygen saturations both for room air and 02 unless rest on room air is 88% or less). Rest BP: 126/84 HR: 76 Sp02 Sp02 94% Room Air Ex/Gait/Activity Without 02 BP: HR: 98 Sp02 90+% Room Air Post Activity BP: 132/89 (103) HR: 82 Sp02 Sp02 99% Room Air L O2 Observations: Patient on room air, VSS. Patient rates 'fairly easy' on SUSAN. Mental Status/Cognition: Orientation Level: (A&Ox4) Following Commands: Follows one step commands consistently Mobility: A gait belt and non-slip socks were used for all out of bed activity this date. Bed Mobility: Rolling: Activity Does Not Occur Supine to Sit: Activity Does Not Occur In chair pre/post Sit to Supine: Activity Does Not Occur Transfers: Sit to Stand: Stand By Assist Stand to Sit: Stand By Assist Transfer Device: Gait belt;Walker-2 Wheeled Gait: Weight Bearing Status: (no restrictions) Distance Ambulated (ft): 600 FEET Ambulation: Assistive Device: Gait Belt;Walker-2 Wheeled (150 ft with WW; additional 350 ft no AD) Ambulation: Level of Assistance: Stand By Assist Ambulation: Gait Deviations: Base of Support - Decreased;Farida - Decreased Comments: Patient received in chair, reports has been ambulating in room. PT encouraged hallway distance gait trials (with staff assist). Balance: Balance Scales/Tests Used: Sitting: Static/Dynamic;Standing: Static/Dynamic Sitting - Static: Good Sitting - Dynamic: Good Standing - Static: Fair + Standing - Dynamic: Fair + ACTIVITY TOLERANCE: Activity Tolerance: Requires rest breaks TREATMENT/INTERVENTIONS: transfer training, gait training, balance activities, and monitoring of vitals AM-PAC 6 Clicks Mobility Raw Score:: 18 EDUCATION: While performing PT, Patient was instructed in:functional mobility training, energy conservation, home exercise program, cardiac education, use of adaptive equipment, discharge planning, use of call light Presented to patient who demonstrates Good understanding of instructions given. ASSESSMENT: Patient would benefit from additional Physical Therapy sessions to achieve the following functionalgoals to enhance independence. Short Term Goals: Goal Formation With patient Patient will perform bed mobility independently and while maintaining sternal precautions Patient will transfer sit to/from stand independently and while maintaining sternal precautions Patient will transfer bed to/from chair independently and while maintaining sternal precautions Patient will ambulate 400 feet independently and while maintaining sternal precautions Patient will ascend/descent 2 steps with stand by assist and while maintaining sternal precautions Patient will demonstrate and/or verbalize appropriate precautions to maximize patient function INFORMED CONSENT TO TREATMENT: Plan of care including recommended therapy, goals and frequency, discussed with patient who understands and agrees to proceed. Equipment Issued: none Plan: Patient continues to benefit from skilled therapy services., Continue with goals as established. If patient is discharged from the facility, this note serves as a discharge summary if further physical therapy visits did not occur. Refer to filed flowsheet for further details. Following therapy session, patient left in patient bedside chair , with call light within reach, with RNAnitra aware, all lines/tubes intact. * Jessica Mitchell MD - 03/18/2025 1:16 PM CDT CTS Chest Tube Removal CXR reviewed with surgeon. No significant output. No air leak. Suction removed. No air leak. Chest tubes individually clamped. Suture cut. Chest tube was removed on end expiration with concurrent suture closure. Patient endorsed pain at skin site that improved within one minute of pull. CXR orderedfor post pull. Remain in bed until completion of CXR. Nursing updated. Jessica Mitchell MD General Surgery PGY-1 * Jessica Mitchell MD - 03/18/2025 12:10 PM CDT CTS Pacing Wire Removal No pacing needs. Patient chest prepped. Suture cut. Ventricular and atrial epicardial pacing wire removed with consistent traction in a caudal direction. No resistance noted. No bleeding. Gauze placed post removal. Patient tolerated procedure well. Patient was told to remain on bedrest x 30 minutes. Nursing updated. Plan for limited TTE tomorrow AM to assess for effusion. Jessica Mitchell MD General Surgery PGY-1 * Jennyfer Dallas DO - 03/18/2025 10:34 AM CDT ICU CONSULT 03/18/2025 ADMITTING/PRIMARY TEAM: [facility] MICU CONSULTED FOR: ICU assistance/vent management Admission date: 03/01/2025 9:44 PM HPI // SUBJECTIVE History was obtained from patient, and medical chart Marshall Espinal Jr. is a 65 year old male w/ PMHx significant for HTN, COPD, CKD who presented to [facility] with fevers/chills. Ultimately found to have Enterococcus bacteremia, splenic abscess, MV IE. Seen by ID and started on CTX/ampicillin. Admitted to ICU postop from [facility] 03/15. Patient arrives intubated/sedated. Easy airway per anesthesia. SINTIA initially with normal LV/RV function and confirmed mod/severe MR w/ vegetation -- post pump normal LV and RV with mean gradient 1. Has A and V wires, currently backup paced. Has meds CT x 2. Had to reopen for anterior wall bleeding.Ultimately required 2 U pRBC, 1 FFP, 1 plt, 300 cell saver. Received methadone and TTP block. Interval hx: Off drips. + SELWYN. LFTs downtrending. CT w/ 60 out. UOP 1.5. PHYSICAL EXAM Temp: [97.8 ??F (36.6 ??C)-98.7 ??F (37.1 ??C)] 97.9 ??F (36.6 ??C) Pulse: [69-84] 70 Resp: [7-29] 9 BP: (105-154)/(70-96) 122/79 Arterial Line BP #1: (117-137)/(58-64) 137/64 I/O last 2 completed shifts: In: 838.3 [P.O.:660; I.V.:178.3] Out: 1690 [Urine:1650; Drains:40] General NAD, resting in chair HEENT: NC AT Cardio: RRR Resp: Normal resp effort, basilarly diminished Abdomen: +BS Extremities: No edema Skin: No significant abrasions Neurological: Nonfocal ASSESSMENT & PLAN Abscess of spleen (POA: Yes) HTN (hypertension) (POA: Yes) Diverticulosis (POA: Yes) Enterococcal bacteremia (POA: Yes) Mitral valve vegetation (HCC) (POA: Yes) COPD (chronic obstructive pulmonary disease) (HCC) (POA: Yes) Endocarditis, suspected (POA: Yes) CKD (chronic kidney disease) stage 5, GFR less than 15 ml/min (HCC) (POA: Yes) NEURO -- Delirium ppx: Encourage normal sleep-wake cycle: lights on during day, lights off at night, frequent re-orientation, minimize sleep interruptions. 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 ASA, statin on hold d/t LFTs. -- Pacing as per CTS. A and V wires. D/c today per CTS. -- Hx HTN, holding home amlodipine 5 and metop succ 25. Can consider adding back BB. -- lasix 20 IV x 1 PULM -- Aggressive chest physiotherapy with aerobika and IS. Encourage ambulation, OOB, PT/OT to avoid post op atelectasis -- Chest tube management per primary -- rec d/c today GI -- Bowel laura -- Diet as tolerated -- Ulceration ppx -- Transaminitis likely d/t low perfusion state with hypotensive episodes. Improving, continue trend. RENAL -- CKD w/ BL Cr ~ 3. 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 Making good urine at this time, will continue to monitor UOP and renal function. -- Monitor renal function, lytes, I/O. Avoid nephrotoxic agents ENDO -- Trend sugars, goal 140-180. Hypoglycemia protocol. ID -- Surgical abx ppx -- Enterococcus bacteremia, MV IE, splenic abscess. ID on board, on CTX/amp since 03/03. BCx neg 03/04. S/p MVR 03/15, f/u intra-op Cx. F/u with iD. EOT planned for 04/26, will need PICC closer to d/c HEME/ONC -- Monitor H&H, transfuse if needed for goal Hb > 7, plt > 10 (> 30 if MCS, > 50 ifactively bleeding) Consider d/c CVC. Date of Service: 03/18/2025 Jennyfer Dallas DO Pulmonary/Critical Care Medicine 03/18/2025 * Jayne Oro RN - 03/17/2025 2:27 PM CDT Care Coordination Progress Note Expected Discharge Date: 03/22/2025 Discharge Plan: Will need PICC placement prior to discharge for 6 weeks IV ampicillin and rocephin.Recommended home health, need IV infusions, referrals are pending. CM will continue to follow for additional d/c needs. Family Support (Name and Phone): Extended Emergency Contact Information Primary Emergency Contact: irma espinal Mobile Relation: Spouse Preferred language: [place] Broke Handler needed? No Secondary Emergency Contact: DiggsAnn MarieKatie Mobile Relation: Daughter Preferred language: [place] Broke Handler needed? No Transportation at Discharge: Family: READMISSION RISK SCORE is 15 at 2:27 PM 03/17/2025.: Name: Jayne Oro RN * Jennyfer Dallas DO - 03/17/2025 2:09 PM CDT ICU CONSULT 03/17/2025 ADMITTING/PRIMARY TEAM: [facility] MICU CONSULTED FOR: ICU assistance/vent management Admission date: 03/01/2025 9:44 PM HPI // SUBJECTIVE History was obtained from patient, and medical chart Marshall Espinal . is a 65 year old male w/ PMHx significant for HTN, COPD, CKD who presented to [facility] with fevers/chills. Ultimately found to have Enterococcus bacteremia, splenic abscess, MV IE. Seen by ID and started on CTX/ampicillin. Admitted to ICU postop from [facility] 03/15. Patient arrives intubated/sedated. Easy airway per anesthesia. SINTIA initially with normal LV/RV function and confirmed mod/severe MR w/ vegetation -- post pump normal LV and RV with mean gradient 1. Has A and V wires, currently backup paced. Has meds CT x 2. Had to reopen for anterior wall bleeding.Ultimately required 2 U pRBC, 1 FFP, 1 plt, 300 cell saver. Received methadone and TTP block. Interval hx: Still on very low dose epi. Had vagal episodes yesterday. PHYSICAL EXAM Temp: [97.8 ??F (36.6 ??C)-98.9 ??F (37.2 ??C)] 98.7 ??F (37.1 ??C) Pulse: [66-88] 74 Resp: [9-31] 22 BP: (82-158)/(56-98) 123/77 Arterial Line BP #1: (82-171)/(49-91) 135/64 I/O last 2 completed shifts: In: 1937.5 [P.O.:400; I.V.:823.3; Blood Products:714.3] Out: 1205 [Urine:1055; Drains:150] General NAD resting in chair HEENT: NC AT Cardio: RRR Resp: Clear bilaterally Abdomen: +BS Extremities: No edema Skin: No significant abrasions Neurological: Nonfocal ASSESSMENT & PLAN Abscess of spleen (POA: Yes) HTN (hypertension) (POA: Yes) Diverticulosis (POA: Yes) Enterococcal bacteremia (POA: Yes) Mitral valve vegetation (HCC) (POA: Yes) COPD (chronic obstructive pulmonary disease) (HCC) (POA: Yes) Endocarditis, suspected (POA: Yes) CKD (chronic kidney disease) stage 5, GFR less than 15 ml/min (HCC) (POA: Yes) NEURO -- Delirium ppx: Encourage normal sleep-wake cycle: lights on during day, lights off at night, frequent re-orientation, minimize sleep interruptions. 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 ASA, statin on hold d/t LFTs. -- Pacing as per CTS. A and V wires. Backup. -- Hx HTN, holding home amlodipine 5 and metop succ 25 PULM -- Aggressive chest physiotherapy with aerobika and IS. Encourage ambulation, OOB, PT/OT to avoid post op atelectasis -- Chest tube management per primary -- COPD: Home laura trelegy. Rec symbicort + incruse + nebs. GI -- Bowel laura -- Diet as tolerated -- Ulceration ppx -- Transaminitis likely d/t low perfusion state with hypotensive episodes. Trending. RENAL -- CKD w/ BL Cr ~ 3. 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 Making good urine at this time, will continue to monitor UOP and renal function. -- Monitor renal function, lytes, I/O. Avoid nephrotoxic agents ENDO -- Trend sugars, goal 140-180. Hypoglycemia protocol. ID -- Surgical abx ppx -- Enterococcus bacteremia, MV IE, splenic abscess. ID on board, on CTX/amp since 03/03. BCx neg 03/04. S/p MVR 03/15, f/u intra-op Cx. F/u with iD. EOT planned for 04/26, will need PICC closer to d/c HEME/ONC -- Monitor H&H, transfuse if needed for goal Hb > 7, plt > 10 (> 30 if MCS, > 50 ifactively bleeding) Date of Service: 03/17/2025 Jennyfer Dallas DO Pulmonary/Critical Care Medicine 03/17/2025 * Martha Reyez - 03/17/2025 8:08 AM CDT Images from the original note were not included. [facility] Department of Nephrology Progress Note Date of Admission: 03/01/2025 Length of Stay: 16 Date of Service: 03/17/25 Reason for Consult: Chronic Kidney Disease Hospital Course: Marshall Espinal Jr. is a 65 year old male with PMHx HTN, COPD, CKD Stage 4, and recurrent nephrolithiasis who presented to [facility] on 03/04/25 as transfer from OSH for splenic abscess intervention by [facility] IR. On admission, patient seen by IR who stated drainage not indicated. Patient had TTE followed by SINTIA with findings of mitral valve vegetation concerning for endocarditis. Blood cultures from OSH revealed 1/2 positive for gram-positive cocci. Repeat blood cultures at [facility] revealed similar findings, later positive for enterococci on 03/03. Infectious disease consulted for recommendations regarding bacteremia. 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 Nephrology consulted for management of SELWYN in setting of CKD and perioperative recommendations pending cardiac surgery intervention for endocarditis. Baseline creatinine unknown. Creatinine around 3 and downtrending this admission. S/p mitral valve replacement with cardiac surgery on 03/15. Intubated/sedated following surgery, transferred to ICU for post-op mngmt. Extubated evening 03/15. Cr stable after surgery ~2.8-2.9. Interval History: - NAEON - On epi for BP support, MAP goal >65 and SBP goal 110-140 - Cr stable at 2.87 - Patient appears fluid overloaded with crackles and mild edema on exam, CXR with pleural effusion,and increased O2 requirements OBJECTIVE: Vital Signs: Temp: [97.5 ??F (36.4 ??C)-98.9 ??F (37.2 ??C)] 98.9 ??F (37.2 ??C) Pulse: [64-88] 75 Resp: [8-31] 9 BP: (77-158)/(53-98) 158/98 Arterial Line BP #1: (74-171)/(45-90) 139/61 Intake/Output: Intake/Output Summary (Last 24 hours) at 03/17/2025 0808 Last data filed at 03/17/2025 0454 Gross per 24 hour Intake 1574.09 ml Output 1175 ml Net 399.09 ml Physical Exam: General - NAD, afebrile, non-cachectic HEENT - NC/AT, clear conjunctivae, moist mucous membranes Neck - arterial line in place Pulm - Unlabored respirations on 4L NC, crackles present, no wheezing CV - RRR, no r/g, wound vac in place over sternum Abdomen - Soft, ND, +BS Musculoskeletal - Moves all four extremities, no swelling or tenderness Extremities - Mild edema bilateral LEs, no cyanosis Skin - No rashes or jaundice Psych - Appropriate mood and affect Labs: CBC: Recent Labs Component Name 03/17/25 0421 03/16/25 1634 03/16/25 0311 03/15/25 1510 03/15/25 1433 WBC 14.3* 16.2* 13.5* - - RBC 2.92* 2.64* 2.57* - - HGB 8.1* 7.6* 7.4* - - HCT 23.8* 22.2* 22.2* - - PLT - - - - 215 - = values in this interval not displayed. BMP: Recent Labs Component Name 03/17/25 0421 03/16/25 1634 03/16/25310 NA 137 139 139 CL 109* 109* 109* CO2 19* 15* 17* BUN 35* 32* 31* CREATININE 2.87* 2.85* 2.89* CALCIUM 8.9 9.0 8.7 LFTs: Recent Labs Component Name 03/17/25 0421 03/16/25 03103/15/25 2019 AST 434* 68* 43* ALT 200* 19 6 ALKPHOS 69 57 61 TBILI 0.4 0.7 1.7* ALB 3.7 3.9 3.8 Phosphorus: Recent Labs Component Name 03/17/25 0421 03/16/25 03103/15/25 2019 PHOS 4.3 5.1 3.7 Coagulation: Recent Labs Component Name 03/15/25 1732 03/15/25 1510 03/08/25 0505 PT 16.3* 17.8* 14.0 INR 1.3 1.5 1.1 PTT 29.8 32.4 - ABG: Recent Labs Component Name 03/16/25 0311 03/15/25 2158 03/15/25 2019 [id number] 18.3* 18.5* 19.2* Imaging: XR Chest 1Vw Portable Result Date: 03/17/2025 FINDINGS/IMPRESSION: *Median sternotomy plates and wires. *Mitral valve prosthesis. *Interval removal of [place]-Geovanny catheter. *Right internal jugular approach central venous catheter terminates in the superior cavoatrial junction. *Mediastinal drain. Low lung volumes with bronchovascular crowding. Increased bilateral interstitial opacities. Bibasilar atelectasis. Small left pleural effusion with retrocardiac opacification. No pneumothorax. The cardiomediastinal silhouette is stable. Degenerative changes are noted in the thoracic spine. XR Chest 1Vw Portable Result Date: 03/16/2025 FINDINGS/IMPRESSION: Lines, tubes, hardware: *Intact midline sternotomy wires and mediastinal surgical clips. *A right internal jugular approach [place]-Geovanny catheter is seen with the tip superimposing the right pulmonary artery. *Right-sided internal jugular central venous line with the tip in the superior cavoatrial junction. *Interval placement of mitral valve replacement. *Interval removal of the endotracheal and nasogastric tubes. Small volume layering left pleural effusion with associated atelectasis of the left lower lung, slightly improved compared to prior. Mild right basilar atelectasis. No right pleural effusion. There is no pneumothorax. The cardiomediastinal silhouette is unchanged. ASSESSMENT/PLAN: #SELWYN - resolving #CKD Stage 4 #S/p mitral valve replacement - Per chart review, baseline Cr appears to be ~2, as documented by [facility] in November 2024 although unclear where this data was gathered from - Hospitalization in February 2024 for hyperkalemia and acute renal failure with Cr elevated to 10.4,decreased to 4.47 prior to discharge - Bilateral ureteral stents placed during February 2024 admission due to right- sided hydronephrosis - Cr stable following surgery ~2.8-2.9 - Patient appears fluid overloaded with crackles and mild edema on exam, CXR with pleural effusion,and increased O2 requirements - Renal US: 03/09: Hypoechoic structure within the right kidney measuring up to 1.1 cm without definite posterior enhancement. This may represent a complex cyst however a neoplastic process cannot be ruled out. There are 2 nonobstructive renal calculi within the right kidney. There is a complex cyst within the right kidney. No hydronephrosis bilaterally. 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 Lemon. Nephrology will sign off. Please note, recommendations are not final until attested/co-signed by the attending physician. Martha Reyez [employer] [employer], MS4 03/17/2025 8:15 AM Cosigned by Diomedes Lemon MD at 03/17/2025 1:53 PM CDT Associated attestation - Diomedes Lemon MD - 03/17/2025 1:53 PM CDT Nephrology Attending Physician I have verified the documentation of the medical student including all history, exam, and medical decision-making details. I have personally performed a physical exam and have personally reviewed thedata to support my medical decision-making as outlined in the medical student???s note, and I arrive independently at the same conclusion. Pt remains in ICU, appears comfortable, on 4L NC, RRR, rales in lungs, no abd tenderness, no edema.On and off epinephrine. CXR showed some opacities and effusion. CKD stage 4, Cr remains stable at 2.84 post-cardiac surgery. UO 1L/d. Please consider Lasix 40mg iv once today. Nephrology will sign off. 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 Date of Service: 03/17/25 Diomedes Lemon MD Division of Nephrology * Elisa Lawton, RN - 03/16/2025 5:40 PM CDT HOME CARE REFERRAL RECEIVED HOWEVER COULD NOT BE ACCEPTED DUE TO THE PATIENT RESIDING OUT OF THE SERVICE AREA. FUSE MAKER HAD BEEN MADE AWARE & THE REFERRAL CLOSED. Norma Lawton RN [facility] money counter [facility] [phone] * Yesica Cabello PA-C - 03/16/2025 1:35 PM CDT Infectious Disease OPAT plan of care sign off: Name: Marshall Espinal Jr. : 1960 E# / Inpatient Sign off Provider: Yesica Cabello PA-C Diagnosis: E.faecalis bacteremia with MV endocarditis s/p MVR 03/15/2025 Discharge Location: Pending Home Home Health: TBD Infusion Company: TBD IV access: Right tunneled IJ Antibiotics and duration / EOT: IV ceftriaxone 2g every 12 hours IV ampicillin 2g every 8 hours (renally dosed), consider continuous infusion outpatient to help with easier administration. Duration of therapy 6 weeks from date of MVR, 03/15/2025 - EOT 04/26/2025. Weekly labs: CBC w/ diff, CMP, please fax results to [facility] Infectious disease clinic, fax [phone], Attn Yesica Cabello PA-C Follow up imaging: None OPAT Appointment and Provider: 04/20/2025 at 11:30 AM with Yesica Cabello PA-C [facility] clinic [address] [place] [address] Clinic phone [phone] Clinic fax [phone] Additional notes: - Patient will need scheduled removal of tunneled line at EOT of antibiotics. It was placed in the OR by anesthesia so will need to determine who will remove. DAIANA Antoine PA-C Division of Infectious Diseases Pager: [phone] ID Clinic ID Clinic Cosigned by Rigo Ortiz MD at 03/16/2025 1:46 PM CDT * Yesica Cabello PA-C - 03/16/2025 12:54 PM CDT Images from the original note were not included. [facility] Infectious Diseases Inpatient Progress Note Patient Name: Marshall Espinal Jr. 1960 Room: 403/01 Date of Admission: 03/01/2025 Date of Service: 03/16/2025 Primary Care Physician: Provider Unknown Attending Physician: Rahul Hernandez* Assessment and Recommendations Marshall Espinal Jr. is a 65 year old white male with PMH of HTN, CKD, COPD, hx of nephrolithiasis,and alcohol use disorder who presents from an OSH ([facility]) for evaluation of a possible splenic abscess. This admission found to have: Enterococcus faecalis bacteremia MV infective endocarditis - Consider sources: Poor dentition, ureteral stents, less likely diverticulosis or splenic lesion - 02/28 (OSH) Bcx 2/2 with E.faecalis (reports being faxed 03/09/2025) - 03/02 ([facility]) repeat BCX 2/2 E.faecalis - 03/04: Bcx prelim no growth - 03/02: TTE shows an echodensity 10 mm x 12 mm attached to the anterior mitral leaflet, possible differential includes vegetation, torn chordae. - 03/06: SINTIA with 1.16 cm x 0.78 cm mobile vegetation attached to the atrial surface of the anteriormitral valve leaflet tip (around the A2/A3 scallop tip). - 03/15: OR for Mitral valve replacement with bioprosthetic valve. OR cultures in process. - On ampicillin / ceftriaxone since 03/03 Concerns for splenic abscess - CT Abd/Pelvis, OSH (02/28/25): New 8.1 x 5.2 x 5.1 cm relatively low- attentuation likely complex cystic lesion in the inferior spleen. This has developed since 12/05/2024 arguing against neoplasm and favring either subacute hematoma or abscess in the appropriate clinical setting. - Both IR and general surgery evaluated patient with low suspicion for splenic abscess: Likely subacute hemorrhage or less likely cyst or infarct. Poor Dentition - Patient had dental extractions recently prior to admission - 03/03/2025: Panorex with lucencies within right mandibular presumed location of abset molar and premolar teeth. - 03/07/2025: Dental consult recommending extractions of multiple teeth prior to cardiac intervention. - 03/09: s/p teeth multiple extractions Diverticulosis: - CT Abd/Pelvis, OSH (02/28/25): Moderate diverticulosis without evidence of diverticulitis. Moderate bilateral fat-containing inguinal hernia. - CT Abd/Pelvis without contrast (03/04/25): Limited exam due to lack of IV contrast. - Pt will L-sided abdominal tenderness for the past 2 weeks. Stable and 4/10 pain. Per pt, no hx ofdiverticulosis / diverticulitis and no change in bowel movements. - Continue to monitor symptoms SELWYN - Nephrology consulted. - Avoid nephrotoxic agents when able - Renally dosing antibiotics as appropriate. Nephrolithiasis -10/2023: admitted for hyperkalemia and acute renal failure, underwent cystoscopy with bilateral ureteral stenting. -03/09/25: Renal US with 2 non-obstructive renal calculi on the rigt kidney. History of ETOH use - Patient reports drinking up to 1 pint per day. - Quit in 10/2024; prior to admission CDC Screening - HIV and Hepatitis C screening negative this admission QTC: NA Renal Function: Estimated Creatinine Clearance: 26.7 mL/min (A) (by C-G formula based on SCr of 2.89 mg/dL (H)). Hardware: Recommendations: - Continue IV ceftriaxone 2 g every 12 hours - Continue IV ampicillin 2g every 8 hours (renally dosed), will need to consider continuous infusion for discharge. - Follow OR cultures from 03/15/2025 until completed. Please notify ID if cultures should grow organisms other than E. Faecalis. - Planning for 6 weeks of IV antibiotics from date of MVR 03/15/2025 - EOT 04/26/2025. - Patient has central line which will likely be used for prolonged antibiotics. - Check CBC with auto diff and CMP at least weekly while on IV antibiotics. We are actively monitoring signs of antibiotic toxicity to ensure safe and effective therapy. Please fax weekly lab resultsto [facility] ID clinic, fax # [phone]; Attn Yesica Cabello PA-C. Follow-up in [facility] clinic on: 04/20/2025 with Yesica Cabello PA-C [facility] clinic [address] [place] [address] Clinic phone [phone] Clinic fax [phone] If there any concerns, please call [facility] infectious disease clinic: phone Thank you for allowing us to participate in the care of this patient. Today ID will sign off. Please call the Ortho ID pager [phone] with any questions M-F. Ortho ID is not available on the weekends. Please contact general ID inpatient team (team 1) duringthis time. I spent 45 mins in the care of this patient to include chart review, coordination of care, patient interview / examination / education, and documentation independent from the attending physician. I spent an additional 10 mins in discussion with attending physician Diana regarding patient case. Patient case/plan were discussed with ID Attending physician. DAIANA Antoine, PAGerardoC Division of Infectious Diseases Pager: [phone] ID Clinic ID Clinic Subjective Interval History: Today, 03/16/2025: OR yesterday for MVR. Patient has expected postoperative chest pain but no fevers, chills, nausea, vomiting. Has not yet had a BM. Urinates normally on his own. Tolerating antibiotics. Eating well. WBC 13.5. Hgb 7.4. Plt 209. Creatinine 2.89, GFR 23. , son and grandchild all at bedside today. HPI (Copied From Previous ID Consult note): Consult HPI from ID fellow Amy with updates: Marshall Espinal . is a 65 year old white male with PMH of HTN, CKD, COPD, hx of nephrolithiasis who presents from an OSH ([facility]) for a splenic abscess. Before presenting to OSH, patient had been experiencing L-sided pain for 2 weeks. Also having fevers intermittently ([id number] ??F, was on and off since 02/24/25). CT Abd/Pelvis 02/28 notable for New 8.1 x 5.2 x 5.1 cm relatively low-attentuation likely complex cystic lesion in the inferior spleen. This has developed since 12/05/2024 arguing against neoplasm and favring either subacute hematoma orabscess in the appropriate clinical setting and moderate diverticulosis w/o evidence of diverticulitis. Patient reports no prior history of diverticulitis. Patient denied any issues with trauma tohis left side with respect to the splenic abscess, and he did not notice any new changes to his bowel habits or endorsed abdominal pain with respect to the diverticulitis. 02/28/25 - BCx revealing 2/2positive for GPC (E.faecalis) at OSH. Transferred to [facility] 03/01 for further evaluation. VSS on admission. Labs notable for negative Mononucleosis screen and MRSA PCR. TTE 03/02 demonstrating an echodensity 10 mm x 12 mm attached to the anterior mitral leaflet, possible differential includes vegetation, torn chordae. Repeat blood cultures on 03/02 at [facility] 2/2 positive for E Faecalis. Patient reports stable L-sided abdominal/back discomfort (4/10 pain). Denies fever, chills, n/v, dysuria, dyschezia.Complains of headache. 03/02/2025: IR consulted for splenic abscess. Noted that it is unlikely that patient's infection 2/2 to splenic abscess. Recommend further infectious workup. No acute intervention 03/03/2025: Panorex with lucencies within right mandibular presumed location of abset molar and premolar teeth. On 03/07: Dental consult recommending extractions of multiple teeth prior to cardiac intervention. 03/03/2025: General surgery consulted for splenic abscess. Agree with IR that unlikely to represent splenic abscess. Likely subacute hemorrhage or less likely cyst or infarct. No acute surgical intervention. 2025: SINTIA with 1.16 cm x 0.78 cm mobile vegetation attached to the atrial surface of the anterior mitral valve leaflet tip (around the A2/A3 scallop tip). 03/07/2025: Nephrology consulted for SELWYN 03/08/2025: CTS recommending multidisciplinary meeting with infectious disease, cardiology, CTS. Surgery timing to be determined. 03/09/2025: WBC 11., Hgb 8.9, plt 548. Creatinine 3.18, GFR 21. Afebrile, HDS. Patient states that he still feels like there is something in the belly but he has no pain. No fevers, chills, n/v/d, constipation, rashes, itching, heart palpitations, shortness of breath, pleuritic chest pain. Reportshe has a history of dental extractions about 1 week prior to becoming ill. Reports he had kidney stone retrieval at [facility] earlier this year. Going for cardiac cath today. 03/10/2025: s/p multiple dental extractions. 03/15/2025: OR for mitral valve replacement with bioprosthetic valve. Cultures in progress. Social hx: Lives at home in house with dog and . [place], [place]. No smoking, no illicit drug use / IVDU. He reports heavy alcohol use (1 pint per day) quit in October of 2024. 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 Antimicrobial History Current Antibiotics Ceftriaxone 03/03 - present Ampicillin 03/03 - present Prior Antibiotics At [facility] Zosyn 03/02 - 03/03 Vancomycin 03/01 - 03/03 Prior Antibiotics at OSH Inpatient Medications Medications[1] Medications[2] Objective VITALS BP 124/70 Pulse 81 Temp 97.5 ??F (36.4 ??C) (Oral) Resp 24 Ht 1.702 m (5' 7.01) Wt 86 kg(189 lb 9.5 oz) SpO2 98% Temp (24hrs), Av.7 ??F (36.5 ??C), Min:96.6 ??F (35.9 ??C), Max:98.4 ??F (36.9 ??C) PHYSICAL EXAM General: Alert, no distress, not toxic appearing, laying in chair, appears well and communicating easily. Head: Normocephalic, atraumatic EENT: PERRLA, Ptosis of the left eyelid. normal conjunctiva, anicteric sclerae. Nose Normal. No thrush. S/p multiple dental extractions. Neck: Supple, No cervical lymphadenopathy. No JVD. Right IJ present. Chest wall: Post op dressing in place. Chest tube in place with bloody output Lungs: Clear to auscultation bilaterally, no wheezes, rales, rhonchi. Heart: RRR, S1, S2 normal, no murmur, gallops, or rubs. Abdomen: Soft, non-distended, non-tender, no peritoneal signs, no guarding or rigidity, bowel sounds normal Extremities: No cyanosis or edema bilateral lower extremities. Onychomycosis great toes. Skin: No rashes. Neurologic: Alert and oriented x 3, moving all extremities Psychiatry: Appropriate mood/affect Lines: PIV, right tunneled IJ. Lab Review CBC: Recent Labs Component Name 03/16/2531003/15/25201803/15/[id number]/15/25150903/15/25 1433 WBC 13.5* 18.7* 21.7* 21.7* - - RBC 2.57* 2.85* 2.71* 2.71* - - HGB 7.4* 8.1* 7.9* 7.9* - - HCT 22.2* 24.1* 24.0* 24.0* - - MCV 86.4 84.6 88.6 88.6 - - PLT - - - - 215 - = values in this interval not displayed. BMP: Recent Labs Component Name 03/16/2531003/15/25201803/15/251731 NA 139 140 142 CL 109* 109* 111* CO2 17* 19* 21* BUN 31* 31* 31* CREATININE 2.89* 2.76* 2.56* ALB 3.9 3.8 3.4 PROT 5.8* 5.6* 5.3* estimated creatinine clearance is 26.7 mL/min (A) (by C-G formula based on SCr of 2.89 mg/dL (H)). LFTs: Recent Labs Component Name 03/16/2531003/15/25201803/15/251731 ALKPHOS 57 61 58 ALT 19 6 6 AST 68* 43* 35* ESR: No results for input(s): ESR in the last 93162 hours. CRP: No results for input(s): CRP in the last 99032 hours. CK: No results for input(s): CK in the last 08835 hours. Coagulation: Recent Labs Component Name 03/15/25173103/15/25150903/08/25 0505 PT 16.3* 17.8* 14.0 INR 1.3 1.5 1.1 PTT 29.8 32.4 - Microbiology, Imaging and other diagnostic tests MICROBIOLOGY: Blood culture: 02/28 (OSH): 2/2 GPCs - E.faecalis (report w/ cultures & sensitivities in media tab from 03/09/25) 03/02 ([facility]): 2/2 E.faecalis 03/04: NGTD Other Serologies: 03/02: MRSA nares PCR Negative 03/02: [place] quant negative 03/04: - HIV non-reactive - Hep B core ab IgM non-reactive - Hep B surface ab quant < 3.0 - Hep B surface ab non-reactive - Hep B surface ag non-reactive - Hep C ab - non-reactive HISTOPATHOLOGY: None at this admission IMAGING & PROCEDURES: I have independently reviewed all pertinent imaging data. Reports available in EMR. CT ABD/[facility] (03/04/2024): 1. Large 1.6 cm obstructing stone in the right renal pelvis. Mild to moderate right hydronephrosis.Numerous additional nonobstructing right renal calculi. 2. Mild diffuse urinary bladder wall thickening. Correlate with urinalysis to exclude cystitis. 3. Bibasilar pulmonary nodules measuring up to 5 mm. Per Fleischner guidelines, if the patient is considered high risk for lung cancer, an optional follow-up CT chest can be obtained in 12 months. Ifthe patient is considered low risk, no specific follow-up is required. CT ABD [facility] (02/28/25): New 8.1 x 5.2 x 5.1 cm relatively low-attentuation likely complex cystic lesion in the inferior spleen. This has developed since 12/05/2024 arguing against neoplasm and favring either subacute hematoma or abscess in the appropriate clinical setting. Moderate diverticulosis without evidence of diverticulitis. Moderate bilateral fat-containing inguinal hernia. TTE 03/02/2025 The left ventricle is normal in size, with normal systolic function and an estimated ejection fraction of 64 % by biplane method of disks. Left ventricular wall motion is normal. * The left ventricular diastolic function is normal. * The mitral valve is displaying restricted posterior leaflet motion with calcification. There is an echodensity 10 mm x 12 mm attached to the anterior mitral leaflet, possible differential includes vegetation, torn chordae. Need to correlate clinically and SINTIA if clinical suspicion of endocarditis. * There is mild tricuspid valve regurgitation. * There is mild mitral valve regurgitation. * The pulmonary artery systolic pressure is normal, 27 mmHg. PANOREX (03/03/2025): IMPRESSION: Lucencies within the right mandibular presumed location of absent of the molar and premolar teeth. Recommend dental consultation. SINTIA 03/06/25 Summary * There is a 1.16 cm x 0.78 cm mobile vegetation attached to the atrial surface of the anterior mitral valve leaflet tip (around the A2/A3 scallop tip). * There is moderate to severe mitral valve regurgitation with a very eccentric posterior jet that originates at the site of the vegetation. Mitral valve regurgitant volume is 30 ml regurgitant fraction is calculated 33%. 3-D ERO area is 0.36 cm2. Vena contracta width (2D) 0.42 cm. 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 * Agitated saline contrast study at rest and with Valsalva is negative for a shunt. * Normal left ventricular systolic function. Visually estimated LV EF is 55-60%. * Right ventricular systolic function is grossly normal. VAS CAROTID DUPLEX BILATERAL (03/07/2025): < 50% stenosis in bilateral carotids US RETROPERITONEAL (03/07/2025) 1.Hypoechoic structure within the right kidney measuring up to 1.1 cm without definite posterior enhancement. This may represent a complex cyst however a neoplastic process cannot be ruled out. Recommend cross-sectional imaging with the renal protocol for further evaluation. 2.There are 2 nonobstructive renal calculi within the right kidney. There is a complex cyst within the right kidney. 3.No hydronephrosis bilaterally. 4.Complex anechoic structure within the spleen, may represent a hematoma however cannot exclude other etiologies. Multiphase CT or MR imaging may be obtained for further evaluation if clinically indicated. CT [facility] (03/10/25): 1.A few sub-5 mm nodules within bilateral upper lobes. No evidence of septic emboli. 2.Partially visualized 8.3 cm hypoattenuating area in the spleen, cannot be characterized on this noncontrast examination. Further evaluation with CT or MRI imaging recommended if clinically indicated. SINTIA INTRA-OP (03/15/2025): Summary * The left ventricle is normal in size, with normal systolic function. * Left ventricular systolic function is normal with an estimated ejection fraction of 55-60% by visual estimate. * There is severely increased left ventricular wall thickness. * There is moderate to severe mitral valve regurgitation. 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 * Right ventricle is at the upper limits of normal in size with normal systolic function. Intra Op Procedure Findings Post Procedure * Successful MVR with size 31 bioprosthetic valve is seen with function grossly intact. no PVLs. mean gradient 1mmhg. LV and RV Function back to baseline. [1] 0.9% NaCl 3 mL Intracatheter q8h ampicillin 2 g Intravenous q8h aspirin 81 mg Oral QDAY atorvastatin 40 mg Oral AT BEDTIME cefTRIAXone 2 g Intravenous q12h heparin 5,000 Units Subcutaneous q8h insulin aspart 0-6 Units Subcutaneous TID WC lidocaine 1 patch Transdermal QDAY mupirocin Each Nostril BID pantoprazole EC 40 mg Oral QDAY polyethylene glycol 3350 17 g Oral QDAY senna-docusate 1 tablet Oral QDAY [2] EPINEPHrine, 0-0.05 mcg/kg/min, Last Rate: 0.05 mcg/kg/min (03/16/25 1000) lactated ringers, , Last Rate: 50 mL/hr at 03/16/25 1000 Cosigned by Rigo Ortiz MD at 03/16/2025 1:46 PM CDT Associated attestation - Rigo Ortiz MD - 03/16/2025 1:46 PM CDT Infectious Diseases Attending Attestation For this patient encounter, IRigo MD, in collaboration with Yeisca Cabello PA-C have reviewed their work records and practice regarding quality and appropriateness of professional services provided. I discussed this patient with Yesica Cabello PA-C and reviewed their documentation and agree with their history, physical examination findings, assessment, and plan of care. Additionally, I reviewed labwork, relevant imaging, and pertinent history. I agree with the assessment andplan as detailed in their note. Briefly: Marshall Espinal Jr. is a 65 year old patient with a past medical history significant for essentialhypertension, CKD, COPD, GERD, nephrolithiasis, who is currently admitted for Enterococcus faecalisbacteremia and MV infective endocarditis. Assessment Enterococcus faecalis bacteremia [place] mitral valve infective endocarditis Concern for splenic abscess Recommendations Continue ceftriaxone and ampicillin to complete 6 weeks of antibiotic therapy Infectious Diseases will sign off at this time. Please see Yesica Cabello, AC note for full details. I have spent 35 minutes with the patient and/or guardian ([id number]) or on the patient???s floor/unit, of which more than 50% of the time was spent in counseling and/or coordination of care. Rigo Ortiz MD Infectious Diseases Attending [facility] * Nico Kulkarni - 03/16/2025 11:39 AM CDT See pastoral care consult order note. 403/01 Nico Kulkarni - Staff Senior [employer] So[employer] Developer [id number] On-Call [id number] * Jennyfer Dallas DO - 03/16/2025 10:13 AM CDT ICU CONSULT 03/16/2025 ADMITTING/PRIMARY TEAM: CTS MICU CONSULTED FOR: ICU assistance/vent management Admission date: 03/01/2025 9:44 PM HPI // SUBJECTIVE History was obtained from patient, and medical chart Marshall Espinal Jr. is a 65 year old male w/ PMHx significant for HTN, COPD, CKD who presented to [facility] with fevers/chills. Ultimately found to have Enterococcus bacteremia, splenic abscess, MV IE. Seen by ID and started on CTX/ampicillin. Admitted to ICU postop from bioMVR 03/15. Patient arrives intubated/sedated. Easy airway per anesthesia. SINTIA initially with normal LV/RV function and confirmed mod/severe MR w/ vegetation -- post pump normal LV and RV with mean gradient 1. Has A and V wires, currently backup paced. Has meds CT x 2. Had to reopen for anterior wall bleeding.Ultimately required 2 U pRBC, 1 FFP, 1 plt, 300 cell saver. Received methadone and TTP block. Interval hx: Tired this AM with moderate pain, otherwise doing well. On epi 0.05. PHYSICAL EXAM Temp: [96.6 ??F (35.9 ??C)-98.4 ??F (36.9 ??C)] 97.6 ??F (36.4 ??C) Pulse: [60-100] 80 Resp: [5-29] 25 BP: (96-125)/(57-93) 106/74 Arterial Line BP #1: (76-144)/(42-74) 98/60 O2 %: [40 %-60 %] 40 % I/O last 2 completed shifts: In: 46951.5 [I.V.:8584.5; Blood Products:2018] Out: 1475 [Urine:895; Drains:580] General:NAD, resting in chair HEENT: NC AT Cardio: RRR Resp: Clear bilaterally Abdomen: Soft hypoactive BS Extremities: No edema Skin: No significant abrasions Neurological: Nonfocal ASSESSMENT & PLAN Critical care was necessary to treat or prevent life-threatening deterioration of the following - Need for pressor/inotropic support - Stress induced hyperglycemia on insulin gtt Abscess of spleen (POA: Yes) HTN (hypertension) (POA: Yes) Diverticulosis (POA: Yes) Enterococcal bacteremia (POA: Yes) Mitral valve vegetation (HCC) (POA: Yes) COPD (chronic obstructive pulmonary disease) (HCC) (POA: Yes) Endocarditis, suspected (POA: Yes) CKD (chronic kidney disease) stage 5, GFR less than 15 ml/min (HCC) (POA: Yes) NEURO -- Delirium ppx: Encourage normal sleep-wake cycle: lights on during day, lights off at night, frequent re-orientation, minimize sleep interruptions. 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 ASA, statin. -- Post cardiac surgery inotropic/vasopressor support. MAP goal > 65. Per CTS, SBP goal 100-150.Wean off epi. -- Pacing as per CTS. A and V wires. Placed to backup. -- Hx HTN, holding home amlodipine 5 and metop succ 25 PULM -- Aggressive chest physiotherapy with aerobika and IS. Encourage ambulation, OOB, PT/OT to avoid post op atelectasis -- Chest tube management per primary -- COPD: Home laura trelegy. Symbicort + incruse + nebs. GI -- Bowel laura -- Diet as tolerated -- Ulceration ppx RENAL -- CKD w/ BL Cr ~ 3. 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 Making good urine at this time, will continue to monitor UOP and renal function. -- Monitor renal function, lytes, I/O. Avoid nephrotoxic agents ENDO -- Stress induced hyperglycemia: Insulin gtt postop, switch to SQ today. Trend sugars, goal 140-180. Hypoglycemia protocol. ID -- Surgical abx ppx -- Enterococcus bacteremia, MV IE, splenic abscess. ID on board, on CTX/amp since 03/03. BCx neg 03/04. S/p MVR 03/15, f/u intra-op Cx. F/u with iD for abx EOT. HEME/ONC -- Monitor H&H, transfuse if needed for goal Hb > 7, plt > 10 (> 30 if MCS, > 50 ifactively bleeding) D/c lorna espinoza foley. I spent 32 minutes in full attendance with this critically-ill patient. Time spent was exclusive ofseparately billed procedures, treating other patients, and teaching time. Pt. is at high risk for complications and morbidity or mortality Pt. is critically ill with vital organ impairment or failure There is high probability of imminent or life threatening deterioration in the patient's condition Time involved in the performance of separately billable procedures, teaching, reviewing education material was not counted towards critical care time. Date of Service: 03/16/2025 Jennyfer Dallas DO Pulmonary/Critical Care Medicine 03/16/2025 * Gala Ghotra OT - 03/16/2025 9:11 AM CDT [facility] Physical Medicine and Rehabilitation Occupational Therapy Initial Evaluation Note Patient: Marshall Espinal Jr. Med Record Number: [id number] Date of : 1960 Age: [age] year old PPE worn by staff: gloves PPE worn by patient: socks - clean;gown - patient, clean Tech: No Co-eval with PT 2/2 skilled assist Recommendations: Discharge OT Discharge Recommendations: Patient would benefit from home health therapy progressing to OP therapy for cardiac rehab when appropriate In addition to the 1:1 evaluation of the patient, additional eval time was spent completing the chart review prior to the assessment, completing the multidisciplinary plan of care and education plan post evaluation and communicating results of the eval to other treatment team members. Nurse and Physical Therapist contacted regarding patient status and/or discharge plan. Physician Orders: Evaluation and Treat Activity Level: as tolerated PRECAUTIONS: Medical/Surgical Precaution: (modified sternal precautions) DIAGNOSIS: Problem List[1] Past Medical History[2] SUBJECTIVE: I feel pretty good. 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 LDA: ICU: IV's: Peripheral line, central line, arterial line, Swans Geovanny, Catheter: Indwelling, Oxygen Nasal Cannula , Chest tube, Telemetry, Wound Vac, External Pacer Wires, and Introducer/cordis Edema: No edema noted Vitals: (*Assess the 3 levels of oxygen saturations both for room air and 02 unless rest on room air is 88% or less). Rest BP: 123/77 (91) HR: 82 Sp02 Sp02 100% 98% Room Air L O2 4 L02 2 L 02 Ex/Gait/Activity With 02 BP: 90s/50s HR: 64-88 Sp02 96% L O2 2 L 02 Post Activity BP: 106/74 (87) HR: 80 Sp02 Sp02 96% L O2 Room Air 2 L 02 Observations: VS monitored throughout session. Pt endorses lightheadedness with sit to stand, improves with continued standing. RN notified of pt on 2L 02 at end of session. Mental Status/Cognition: Orientation Level: (oriented x4) Memory: Appears intact Following Commands: Follows all commands and directions without difficulty Safety Judgement: Decreased awareness of need for safety Awareness of Errors: Decreased awareness of deficits UE ROM: RUE: AROM WFL within sternal precautions LUE: AROM WFL within sternal precautions Strength: RUE: head stock transfer clerk WNL LUE: head stock transfer clerk WNL UE Tone RUE: no abnormal tone noted LUE: no abnormal tone noted Coordination: intact serial opposition for bilateral hands UE Proprioception RUE: WFL LUE: WFL UE Sensation RUE: no complaints of numbness or tingling LUE: no complaints of numbness or tingling Perception: Appears intact Visual Motor Tracking: Able to track stimulus in all quads w/o difficulty Mobility: A gait belt and non-slip socks were used for all out of bed activity this date. Bed Mobility: Supine to Sit: Activity Does Not Occur (pt upright in chair upon OT entry) Transfers: Sit to Stand: Stand By Assist Stand to Sit: Stand By Assist Transfer Device: Gait belt;Walker-Cardiac Functional Ambulation: Patient ambulated functional household distance with stand by assist using cardiac walker, cues forfull upright posture. Balance: Balance Scales/Tests Used: Sitting: Static/Dynamic;Standing: Static/Dynamic Sitting - Static: Good Sitting - Dynamic: Good Standing - Static: Good - Standing - Dynamic: Good - Activities of Daily Living Feeding: Set-up Oral Facial Hygiene: Stand By Assist (facial hygiene in sitting) Bathing: Activity Does Not Occur Upper Body Dressing: Minimal Assistance (adjusting gown) Lower Body Dressing: Maximal Assistance (adjusting socks) Toileting: Total Assistance (via graham) Splint Issued/Checked: none ACTIVITY TOLERANCE: Activity Tolerance: Requires rest breaks AM-PAC 6 Clicks Daily Activity Raw Score:: 15 TREATMENT / EDUCATION / INTERVENTIONS: While performing OT, Patient was instructed in:functional mobility training, self-care training, energy conservation, safety awareness/fall precautions Presented to patient who demonstrates Fair understanding of instructions given. INFORMED CONSENT TO TREATMENT: Plan of care including recommended therapy, goals and frequency, discussed with patient who understands and agrees to proceed. ASSESSMENT: Functional performance limited due to: limited activities of daily living, pain, decreased functional mobility, decreased functional balance, decreased safety awareness, and decreased endurance and activity tolerance. Short Term Goals: Goal Formation With patient Patient will perform grooming standing at sink and independently Patient will perform upper extremity dressing independently Patient will perform lower extremity dressing independently Patient will perform toileting independently Precision Assembly Inspector Goal(s): Patient to be independent with functional mobility and self-care and should be able to safely discharge to prior level of care. Plan: Patient continues to benefit from skilled therapy services., Continue with goals as established. If patient is discharged from the facility, this note serves as a discharge summary if further occupational therapy visits did not occur. Refer to filed flowsheet for further details. Following therapy session, patient left in patient bedside chair , with call light within reach, with family in room, with RN, Erica aware. 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 Recommendations: Discharge PT Discharge Recommendations: Patient would benefit from home health therapy progressing to OP therapy for cardiac rehab when appropriate Recommended Transportation Method: Private Car In addition to the 1:1 evaluation of the patient, additional eval time was spent completing the chart review prior to the assessment, completing the multidisciplinary plan of care and education plan post evaluation and communicating results of the eval to other treatment team members. Will continue to assess need for AD as functional mobility progresses Nurse and Occupational Therapist contacted regarding patient status and/or discharge plan. Physician Orders: Evaluation and Treat PRECAUTIONS: Weight Bearing Status: (no restrictions) Activity Level: Activity as Tolerated Other Precautions: modified sternal DIAGNOSIS: Problem List[1] Past Medical History[2] SUBJECTIVE: Subjective: pt agreeable to therapy PATIENT GOALS / WHAT MATTERS MOST TO THE PATIENT: Patient's Primary Concern: none stated Home Situation: Type of Residence: Private Residence Living arrangement: Spouse/Significant Other Steps to Enter: 2 Handrails: Outdoor Home Structure: One Story Primary Bedroom: First Floor Primary Bathroom: First Floor Bathroom : Tub/Shower Combo Equipment at Home: None Prior Level of Functioning: Prior Level of Function Mobility: Independent;Ambulate-In Community;Ambulate-In Home ;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 LDA: ICU: IV's: Peripheral line, central line, arterial line, Swans Geovanny, Catheter: Indwelling, Oxygen Nasal Cannula , Chest tube, Telemetry, Wound Vac, External Pacer Wires, and Introducer/cordis Edema: No edema noted Vitals: (*Assess the 3 levels of oxygen saturations both for room air and 02 unless rest on room air is 88% or less). Rest BP: 123/77 (91) HR: 82 Sp02 Sp02 100% 98% 4 L02 2 L 02 Ex/Gait/Activity With 02 BP: 90s/50s HR: 64-88 Sp02 96% 2 L 02 Post Activity BP: 106/74 (87) HR: 80 Sp02 Sp02 96% 2 L 02 Observations: VS monitored throughout session. Pt endorses lightheadedness with sit to stand, improves with continued standing. RN notified of pt on 2L 02 at end of session. Mental Status/Cognition: Orientation Level: (oriented x4) Attention Span: (WFL) Memory: Appears intact Following Commands: Follows all commands and directions without difficulty Safety Judgement: Decreased awareness of need for safety Awareness of Errors: Decreased awareness of deficits Problem Solving: Assistance required to identify errors made ROM: RLE: AROM WFL LLE: AROM WFL Strength: RLE:WFL LLE: WFL Tone: RLE: no abnormal tone noted LLE: no abnormal tone noted Coordination: RLE: not tested LLE: not tested Sensation: RLE: no complaints of numbness or tingling LLE: no complaints of numbness or tingling Mobility: A gait belt and non-slip socks were used for all out of bed activity this date. Bed Mobility: Supine to Sit: Activity Does Not Occur (pt found sitting in chiar) Transfers: Sit to Stand: Stand By Assist Stand to Sit: Stand By Assist Transfer Device: Gait belt;Walker-Cardiac Gait: Weight Bearing Status: (no restrictions) Distance Ambulated (ft): 80 FEET Ambulation: Assistive Device: Gait Belt (cardiac walker) Ambulation: Level of Assistance: Stand By Assist Ambulation: Gait Deviations: Base of Support - Increased;Farida - Decreased;Increased Trunk Flexion;Increased Weight Bearing through Upper Extremity;Step Length - Decreased Comments: Pt found sitting in chair at start of session. He was able to come into standing without use of BUE and with good adherence to sternal precautions this sessions. Pt demos increased trunk flexion in standing and needed mod cues for upright posture. Pt ambulates short distance in hallway with cardiac walker with occasional standing rest break needed. Pt with good eccentric control when sitting back down into chair. Balance: Balance Scales/Tests Used: Sitting: Static/Dynamic;Standing: Static/Dynamic Sitting - Static: Good Sitting - Dynamic: Good Standing - Static: Good - Standing - Dynamic: Good - ACTIVITY TOLERANCE: Activity Tolerance: Requires rest breaks TREATMENT/INTERVENTIONS: evaluation, transfer training, gait training, balance activities, and monitoring of vitals AM-PAC 6 Clicks Mobility Raw Score:: 18 EDUCATION: While performing PT, Patient and spouse was instructed in:functional mobility training, energy conservation, safety awareness/fall precautions , pursed lip breathing techniques, modified sternal precautions , use of adaptive equipment, discharge planning Presented to patient who demonstrates Good understanding of instructions given. INFORMED CONSENT TO TREATMENT: Plan of care including recommended therapy, goals and frequency, discussed with patient who understands and agrees to proceed. ASSESSMENT: Patient would benefit from additional Physical Therapy sessions to achieve the following functionalgoals to enhance independence. Short Term Goals: Goal Formation With patient/family Patient will perform bed mobility independently and while maintaining sternal precautions Patient will transfer sit to/from stand independently and while maintaining sternal precautions Patient will transfer bed to/from chair independently and while maintaining sternal precautions Patient will ambulate 400 feet independently and while maintaining sternal precautions Patient will ascend/descent 2 steps with stand by assist and while maintaining sternal precautions Patient will demonstrate and/or verbalize appropriate precautions to maximize patient function Retirement Goal(s): Patient to be independent with functional mobility and self-care and should be able to safely discharge to prior level of care. Equipment Issued: gait belt Plan: Gait training Transfer training Stair training Assistive device training Endurance training Bed mobility training Balance training Energy conservation techniques Safety awareness Home exercise program training If patient is discharged from the facility, this note serves as a discharge summary if further physical therapy visits did not occur. Refer to filed flowsheet for further details. Following therapy session, patient left in patient bedside chair , with call light within reach, with family in room, with RNErica aware, with therapy cues visible on white board, all lines/tubesintact. [1] Patient Active Problem List: Abscess of spleen HTN (hypertension) Diverticulosis Enterococcal bacteremia Mitral valve vegetation (HCC) COPD (chronic obstructive pulmonary disease) (HCC) Endocarditis, suspected CKD (chronic kidney disease) stage 5, GFR less than 15 ml/min ([facility]) [2] Past Medical History: Diagnosis Date CKD (chronic kidney disease) COPD (chronic obstructive pulmonary disease) (HCC) Exposure to noxious chemicals while working at a [employer] GERD (gastroesophageal reflux disease) HTN (hypertension) Nephrolithiasis Obstructive uropathy * Martha Reyez E - 03/16/2025 8:54 AM CDT Images from the original note were not included. [facility] Department of Nephrology Progress Note Date of Admission: 03/01/2025 Length of Stay: 15 Date of Service: 03/16/25 Reason for Consult: Chronic Kidney Disease Hospital Course: Marshall Espinal Jr. is a 65 year old male with PMHx HTN, COPD, CKD Stage 4, and recurrent nephrolithiasis who presented to [facility] on 03/04/25 as transfer from OSH for splenic abscess intervention by [facility] IR. On admission, patient seen by IR who stated drainage not indicated. Patient had TTE followed by SINTIA with findings of mitral valve vegetation concerning for endocarditis. Blood cultures from OSH revealed 1/2 positive for gram-positive cocci. Repeat blood cultures at [facility] revealed similar findings, later positive for enterococci on 03/03. Infectious disease consulted for recommendations regarding bacteremia. 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 Nephrology consulted for management of SELWYN in setting of CKD and perioperative recommendations pending cardiac surgery intervention for endocarditis. Baseline creatinine unknown. Creatinine around 3 and downtrending this admission. Per chart review, patient was hospitalized in February 2024 for hyperkalemia and acute renal failure with creatinine elevated to 10.4. Creatinine decreased to 4.47 priorto discharge. Noted to have right-sided hydronephrosis for which patient underwent cystoscopy with bilateral ureteral stent placement. Interval History: - S/p mitral valve replacement with CTS yesterday - Intubated and sedated after surgery, transferred to ICU for post-op mngmt - Extubated evening 03/15 - On ceftriaxone, cefazolin, and ampicillin - On epinephrine and norepinephrine for MAP goal >65 and SBP goal 100-150 - Cr uptrending throughout day of surgery: 2.56 yesterday morning, 2.76 overnight, and 2.89 this AM- still within patient's baseline and decreased from initial presentation - Making urine although documented output lower than expected (~200mL) given large amount of fluid patient received during surgery (8L) - Graham removed today OBJECTIVE: Vital Signs: Temp: [96.6 ??F (35.9 ??C)-98.4 ??F (36.9 ??C)] 97.6 ??F (36.4 ??C) Pulse: [60-100] 82 Resp: [5-29] 9 BP: (96-125)/(57-93) 117/67 Arterial Line BP #1: (76-143)/(42-69) 116/60 O2 %: [40 %-60 %] 40 % Intake/Output: Intake/Output Summary (Last 24 hours) at 03/16/2025 0854 Last data filed at 03/16/2025 0800 Gross per 24 hour Intake 69662.95 ml Output 1505 ml Net 9160.95 ml Physical Exam: General - NAD, afebrile, non-cachectic HEENT - NC/AT, clear conjunctivae, moist mucous membranes Neck - arterial line in place Pulm - Unlabored respirations on room air, CTAB, no crackles or wheezes bilaterally CV - RRR, no m/r/g, wound vac in place over sternum Abdomen - Soft, NT/ND, +BS Musculoskeletal - Moves all four extremities, no swelling or tenderness Extremities - No cyanosis or edema Skin - No rashes, lesions, or jaundice Psych - Appropriate mood and affect Labs: CBC: Recent Labs Component Name 03/16/2531003/15/25201803/15/25 1732 03/15/25 1510 03/15/25 1433 WBC 13.5* 18.7* 21.7* 21.7* - - RBC 2.57* 2.85* 2.71* 2.71* - - HGB 7.4* 8.1* 7.9* 7.9* - - HCT 22.2* 24.1* 24.0* 24.0* - - PLT - - - - 215 - = values in this interval not displayed. BMP: Recent Labs Component Name 03/16/2531003/15/25201803/15/25 1732 NA 139 140 142 CL 109* 109* 111* CO2 17* 19* 21* BUN 31* 31* 31* CREATININE 2.89* 2.76* 2.56* CALCIUM 8.7 9.2 11.1* LFTs: Recent Labs Component Name 03/16/2531003/15/25201803/15/25 173 AST 68* 43* 35* ALT 19 6 6 ALKPHOS 57 61 58 TBILI 0.7 1.7* 0.9 ALB 3.9 3.8 3.4 Magnesium: No results for input(s): MG in the last 78854 hours. Phosphorus: Recent Labs Component Name 03/16/2531003/15/25201803/15/25 1732 PHOS 5.1 3.7 3.6 Coagulation: Recent Labs Component Name 03/15/25 17303/15/25 1510 03/08/25 0505 PT 16.3* 17.8* 14.0 INR 1.3 1.5 1.1 PTT 29.8 32.4 - ABG: Recent Labs Component Name 03/16/2531003/15/25215703/15/252018 HAJ5KFG 18.3* 18.5* 19.2* Imaging: XR Abdomen Kub Result Date: 03/16/2025 IMPRESSION: Nasogastric tube in the stomach. Additional partially visualize catheters are present. > Interpreting Provider: Jamie Barriga MD on 03/16/2025 2:31 AM ASSESSMENT/PLAN: #SELWYN - resolving #CKD Stage 4 #Mitral valve vegetation - Per chart review, baseline Cr appears to be ~2, as documented by [facility] in November 2024 although unclear where this data was gathered from - Hospitalization in February 2024 for hyperkalemia and acute renal failure with Cr elevated to 10.4,decreased to 4.47 prior to discharge - Bilateral ureteral stents placed during February 2024 admission due to right- sided hydronephrosis - Cr uptrending throughout day of surgery: 2.56 yesterday morning, 2.76 overnight, and 2.89 this AM- still within patient's baseline and decreased from initial presentation - Renal US: 03/09: Hypoechoic structure within the right kidney measuring up to 1.1 cm without definite posterior enhancement. This may represent a complex cyst however a neoplastic process cannot be ruled out. There are 2 nonobstructive renal calculi within the right kidney. There is a complex cyst within the right kidney. No hydronephrosis bilaterally. 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 Lemon. Please note, recommendations are not final until attested/co-signed by the attending physician. Martha Reyez [facility] [employer], MS4 03/16/2025 8:54 AM Cosigned by Diomedes Lemon MD at 03/16/2025 4:40 PM CDT Associated attestation - Diomedes Lemon MD - 03/16/2025 4:40 PM CDT Nephrology Attending Physician I have verified the documentation of the medical student including all history, exam, and medical decision-making details. I have personally performed a physical exam and have personally reviewed thedata to support my medical decision-making as outlined in the medical student???s note, and I arrive independently at the same conclusion. S/p MVR. Pt was awake, lying down comfortably, RRR, CTAB, no edema. Cr is stable at 2.89. Urinatingwell, but with significant intake yesterday 44792gh/1475ml. Cont to monitor renal function and urine output. Date of Service: 03/16/25 Diomedes Lemon MD Division of Nephrology * Melanie Alma Rosa, GRAIN BROKER AND MARKET OPERATOR - 03/15/2025 10:20 PM CDT Pt extubated per order @2101. Pt placed on BNC 3L/M, SpO2 96% HR 95 RR 14. Pt is alert & verbally stated name. Pt tolerating extubation, will continue to monitor. * Dennis Delatorre MD - 03/15/2025 1:55 PM CDT Images from the original note were not included. [facility] Internal Medicine Progress Note Name: Marshall Espinal Jr. Room/Bed: OR/OR : 1960 65 year old PCP: Provider Unknown Admit Date/Time: 03/01/2025 9:44 PM LOS: 14 Subjective Interval update: Vitals are stable. Patient has been NPO since midnight for CTS procedure. Aspirin and metoprolol given at AM after confirming with CTS. Patient was not available to be seen before the procedure. Planis for patient to go to ICU post-op. Hospital course: Marshall Espinal is a 64 year old male with PMHx of HTN, CKD, COPD, hx of recurrent nephrolithiasiswho presents from an OSH ([place]) for a splenic abscess. Pain on left side had been happening for2 weeks. Patient has a history of kidney stones and had similar symptoms in the past, so he thoughtit was another occurrence of a kidney stone. He was seen as [facility] and was told that he was going to have imaging done to rule out kidney stones, and was found to have a splenic abscess and diverticulitis. Patient reports no prior history of diverticulitis. Patient denied any issues withtrauma to his left side with respect to the splenic abscess, and he did not notice any new changes to his bowel habits. Patient reported that he was only taking Pepto bismol for his pain. Patient otherwise well on exam with no fevers. IR consutled on admission, did not feel strongly that it was an abscess and recommended against drainage. Underwent ECHO 03/02 which revealed an echodensity 10 mm x12 mm attached to the anterior mitral leaflet, possible differential includes vegetation, torn chord ae. Cardiology was consulted, and SINTIA ordered. Blood cultures from OSH revealed 1/2 cultures positive stain for gram positive cocci. Repeat blood cultures collected at [facility] revealed similar findings,1/2 positive for gram cocci in pairs and chains and later positive for enterococci on 03/03. Infectious disease consulted for recommendations regarding bacteremia with unclear source. On 03/04, ID ordered another blood culture for further evaluation. Preliminary result for blood cultures have come back for no growth so far 03/06. Pt received his SINTIA on 03/06. Dentistry was consulted for dental abscess on 03/06. SINTIA was read, concerns for large abscess on the mitral valve, CTS following and recommends urgent MV surgery with approval from nephrology, cardiology, dental, and ID. Plan for multidisplinary rounds on 03/08, following dental surgery for approval of MV surgery. Per CTS and nephrology a VAS carotid duplex bilateral and renal ultrasound was conducted 03/08. Dental surgery performed 03/09. Cardiac Cath performed 03/10. 03/15 Patient undergoing MV surgery with CTS. Objective Temp: [97.4 ??F (36.3 ??C)-98.2 ??F (36.8 ??C)] 97.4 ??F (36.3 ??C) Pulse: [80-93] 87 Resp: [-] 15 BP: (124-149)/(88-99) 125/93 Weight change: Intake/Output Summary (Last 24 hours) at 03/15/2025 1355 Last data filed at 03/15/2025 1314 Gross per 24 hour Intake 3304 ml Output 2250 ml Net 1054 ml Physical Exam: Not evaluate as patient was going to pre-op Scheduled Medications: Medications[1] PRN Medications: Medications[2] Continuous Infusions: Medications[3] Laboratory Data Recent Labs Component Name 03/15/25 0603/14/25 0521 03/13/25 0603 WBC 11.7* 10.9* 9.6 HGB 10.8* 9.3* 8.7* HCT 34.4* 30.0* 27.7* PLTCOUNT 400 440* 423* MCV 89.8 89.0 87.1 Recent Labs Component Name 03/08/25 0505 PT 14.0 INR 1.1 Recent Labs Component Name 03/15/25 0631 03/14/25 0521 03/13/25 0603 NA 135* 137 138 POTASSIUM 4.3 4.3 3.9 CL 108* 108* 106 CO2 19* 21* 23 BUN 35* 31* 28* CREATININE 2.78* 2.89* 2.78* Recent Labs Component Name 03/15/25 0631 03/14/25 0521 03/13/25 0603 CALCIUM 9.6 9.5 9.2 PHOS 4.2 4.0 3.7 Recent Labs Component Name 03/15/25 0631 03/14/25 0521 03/13/25 0603 PROT 8.0 7.8 7.4 ALB 3.3* 3.3* 3.0* ALKPHOS 123 121 120 AST 10 9 8 ALT 6 <5* <5* TBILI 0.2 0.1* 0.1* No results for input(s): CKTOTAL, CKMBCK2, TROPONINI in the last 54798 hours. Recent Labs Component Name 03/03/25 0500 VANCORNDM 17.1 Microbiology Results (Displays last 21 days for this encounter ONLY) Procedure Component Value - Date/Time CULTURE WOUND+GRAM STAIN [[id number]] Lab Status: No result Specimen: Microbiology from Tissue CULTURE ANAEROBE [[id number]] Lab Status: No result Specimen: Microbiology from Tissue CULTURE AFB+SMEAR [[id number]] Lab Status: No result Specimen: Microbiology from Tissue CULTURE FUNGUS OTHER+FUNGUS SMEAR [[id number]] Lab Status: No result Specimen: Microbiology from Tissue CULTURE BLOOD [[id number]] (Normal) Collected: 03/04/25 1109 Lab Status: Final result Specimen: Blood Peripheral Updated: 03/09/25 1330 Culture No growth day 5 CULTURE BLOOD [[id number]] (Normal) Collected: 03/04/25 1109 Lab Status: Final result Specimen: Blood Peripheral Updated: 03/09/25 1330 Culture No growth day 5 MRSA PCR [[id number]] (Normal) Collected: 03/02/25 0847 Lab Status: Final result Specimen: Microbiology from Nasal Updated: 03/02/25 1541 MRSA DNA by PCR Not detected Narrative: Methicillin-resistant Staphylococcus aureus (MRSA) DNA is not detected (presumed not colonized withMRSA). CULTURE BLOOD [[id number]] (Abnormal) Collected: 03/02/25 0533 Lab Status: Final result Specimen: Blood Peripheral Updated: 03/07/25 1038 Culture Growth of Enterococcus faecalis Gram Stain Gram-positive cocci pairs and chains Narrative: Positive at 28 Hours 19 Minutes Refer to previously reported susceptibility testing, specimen number:[id number] CULTURE BLOOD [[id number]] (Abnormal) (Susceptibility) Collected: 03/02/25532 Lab Status: Final result Specimen: Blood Peripheral Updated: 03/07/25 1038 Culture Growth of Enterococcus faecalis Gram Stain Gram-positive cocci pairs and chains Narrative: Positive at 22 Hours 44 Minutes Susceptibility Enterococcus faecalis (1) Antibiotic Interpretation Microscan Method Status Ampicillin Susceptible <=2 ug/mL LAVELLE Final Gentamicin 500 Susceptible SYN-S ug/mL LAVELLE Final Vancomycin Susceptible 2 ug/mL LAVELLE Final Susceptibility Comments Streptomycin Synergy susceptible predicts synergy between ampicillin, penicillin, or vancomycin plus streptomycin when isolates are susceptible to these agents. Combination therapy with ampicillin, penicillin or vancomycin(for susceptible strains) plus an aminoglycoside is usually indicated for serious enterococcal infections such as endocarditis, UNLESS high-level resistance to both gentamicin and streptomycin is documented. Gentamicin Synergy susceptible predicts synergy between ampicillin, penicillin, or vancomycin plus gentamicin when isolates are susceptible to these agents. Combination therapy with ampicillin, penicillin, or vancomycin (for susceptible strains) plus an aminoglycoside is usually indicated for serious enterococcal infections such as endocarditis UNLESS high-level resistance to both gentamicin and streptomycin is documented. Invasive enterococcal infections require combination therapy with susceptible agents. ID consultation is strongly recommended where available. BLOOD CULTURE ID PANEL [[id number]] (Abnormal) Collected: 03/02/25532 Lab Status: Final result Specimen: Blood Peripheral Updated: 03/03/25 1033 Enterococcus faecalis Detected Van A/B Vancomycin Resistance Not detected Comment: Results indicate vancomycin-susceptible Enterococcus faecalis. Nasir/B not detected. Narrative: Blood Culture ID Panel performed by [employer] multiplex PCR. The Test panel includes: Gram Positive Bacteria: Enterococcus faecalis, Enterococcus faecium, Listeria monocytogenes, Staphylococcus (genus), Staphylococcus aureus, Staphylococcus epidermidis, Staphylococcus lugdunensis, Streptococcus (genus), Streptococcus agalactiae (Group B), Streptococcus pneumoniae, Streptococcus pyogenes (Group A). Gram Negative Bacteria: Acinetobacter baumannii complex, Bacteroides fragilis, Haemophilus influenzae, Neisseria meningitidis (encapsulated), Pseudomonas aeruginosa, Stenotrophomonas maltophilia, Enterobacterales (formerly Enterobacteriaceae family), Enterobacter cloacae complex, Escherichia coli, K lebsiella (formerly Enterobacter) aerogenes, Klebsiella oxytoca, Klebsiella pneumoniae group, Proteus (genus), Salmonella species, Serratia marcescens. YEAST: Yesi albicans, Yesi auris, Yesi glabrata, Yesi krusei, Yesi parapsilosis, Yesi tropicalis, Cryptococcus neoformans/gattii. Antimicrobial Resistance Genes: CTX-M (extended-spectrum beta-lactamase), IMP ([place]allo beta-lactamase), KPC (carbapenemase), mcr-1 (colistin resistance determinant) mecA/C (methicillin-resistance), mecA/C and MREJ (methicillin- resistance - MRSA), NDM ([place] zzromrx-abxu-hyjyusuku), OXA-48-like ( oxacillinase beta-lactamase),Nasir/B (vancomycin-resistance), VIM (Sangeeta Intergrom-Encoded [place] beta-lactamase). Imaging CT Chest Wo Contrast Result Date: 03/10/2025 Impression: 1.A few sub-5 mm nodules within bilateral upper lobes. No evidence of septic emboli. 2.Partially visualized 8.3 cm hypoattenuating area in the spleen, cannot be characterized on this noncontrast examination. Further evaluation with CT or MRI imaging recommended if clinically indicated. > Dictated by Nick Jay MD, (associate professor of radiology). > Dictated by Lighting Equipment Operator IJen MD have personally reviewed and interpreted this examination/study. > Interpreting Provider: Jen Thomson MD on 03/10/2025 5:00 PM US Retroperitoneal Complete Result Date: 03/09/2025 IMPRESSION: 1.Hypoechoic structure within the right kidney measuring up to 1.1 cm without definite posterior enhancement. This may represent a complex cyst however a neoplastic process cannot be ruled out. Recommend cross-sectional imaging with the renal protocol for further evaluation. 2.There are2 nonobstructive renal calculi within the right kidney. There is a complex cyst within the right kidney. 3.No hydronephrosis bilaterally. 4.Complex anechoic structure within the spleen, may representa hematoma however cannot exclude other etiologies. Multiphase CT or MR imaging may be obtained forfurther evaluation if clinically indicated. > Dictated by Eunice Ramirez (associate professor of radiology). >Dictated by Eunice Ramirez 03/09/2025 11:07 AM > Dictated by Lighting Equipment Operator IJen MD have personally reviewed and interpreted this examination/study. > Interpreting Provider: Jen Thomson MD on 03/09/2025 1:40 PM Relevant labs and imaging data reviewed on [facility]. Assessment and Plan Assessment & Plan Abscess of spleen Diverticulosis Enterococcal bacteremia Mitral valve vegetation (HCC) Endocarditis, suspected - SINTIA came back for large vegetation on mitral valve with severe mitral regurgitation. Per SINTIA, CTSrecommends multi team consult for approved recs to follow on surgery - 03/09 Dental surgery completed, 9 teeth were pulled. - Cardiology following, left cardiac cath performed 03/09 - Nephrology consulted, pt is safe to proceed with MV surgery - PT/OT 03/12 evaluated for CTS Pre-OP and signed off - 03/13/25 UA 1+ protein, 1+ glucose, otherwise unremarkable (ordered for CTS pre-OP) - WBC 03/14 10.9 from 03/13 9.6 PLAN: - Ampicillin 2 g IV q8h per ID recs - Ceftriaxone 2 g IV q12h per ID recs - NPO 03/15 at midnight (03/15 0000) - CTS scheduled surgery today 03/15 - Incentive spirometry for prevention of pneumonia - Consult placed with pain management for perioperative pain management per CTS HTN (hypertension) - Home Rx: Metoprolol succinate 25 mg PO QHS, amlodipine 5 mg PO QD - BP stable PLAN: - Continue metoprolol succinate 25 - amLODIPine (Norvasc) tablet 5 mg COPD (chronic obstructive pulmonary disease) ([facility]) - Home meds include Trelegy, fluticasone propionate PLAN: - Incruse and symbicort while in-patient CKD (chronic kidney disease) stage 5, GFR less than 15 ml/min ([facility]) Cr 03/14 2.89; Range: 2.78-3.62 PLAN: - Avoid nephrotoxic agents and continue tight control of blood pressures MAP > 65 - Nephrology consulted, pt should proceed with cath and MV surgery - Start FeSo4 PO per nephrology - Daily RFP - Hemodialysis line to be placed in OR per CTS - Nephrology will reevaluate for dialysis post-CTS procedure. Diet: DIET NPO Except: NO EXCEPTIONS DVT Prophylaxis: Will hold heparin at midnight for CTS procedure scheduled for 03/15/25 Heparin Drip Code Status: Full Code Bordley Candidate?: No Electronically Signed By: Dennis Delatorre MD 03/15/2025 1:55 PM [1] 0.9% NaCl 3 mL Intracatheter q8h [Transfer Hold] acetaminophen 1,000 mg Intravenous q6h [Held by Provider] amLODIPine 5 mg Oral QDAY ampicillin 2 g Intravenous q8h antithrombin III (Human) 500 Units Intravenous Once [Transfer Hold] artificial tears Each Eye q8h [Transfer Hold] aspirin 81 mg Oral QDAY [Transfer Hold] budesonide-formoterol 2 puff Inhalation BID And [Transfer Hold] umeclidinium 1 puff Inhalation QDAY [Transfer Hold] BUPivacaine liposome 266 mg Infiltration intra-OP once cefTRIAXone 2 g Intravenous q12h [Transfer Hold] chlorhexidine 15 mL Mouth/Throat BID [Transfer Hold] ferrous sulfate 325 mg Oral QDAY AFTER LUNCH [Held by Provider] heparin 5,000 Units Subcutaneous q8h [Transfer Hold] lidocaine 1 patch Transdermal QDAY [Transfer Hold] melatonin 3 mg Oral AT BEDTIME metoprolol succinate XL 24hr 25 mg Oral AT BEDTIME [Transfer Hold] montelukast 10 mg Oral AT BEDTIME [Transfer Hold] mupirocin Each Nostril BID pantoprazole 40 mg Intravenous Once [Transfer Hold] pantoprazole EC 40 mg Oral QDAY [Transfer Hold] polyethylene glycol 3350 17 g Oral QDAY [Transfer Hold] senna-docusate 1 tablet Oral QDAY [2] [Transfer Hold] 0.9% NaCl [Transfer Hold] 0.9% NaCl SALINE LOCK, INSERT AND MAINTAIN AND 0.9% NaCl AND 0.9% NaCl [Transfer Hold] acetaminophen dextrose IV for hypoglycemia OR dextrose IV for hypoglycemia OR glucagon [Transfer Hold] fluticasone propionate glucose (Diabetic Use) gel [Transfer Hold] insulin regular human [Transfer Hold] ondansetron [3] NaCl IV, , Last Rate: 75 mL/hr at 03/15/25 1052 insulin regular human (HumuLIN R; NovoLIN R) infusion, 0-26.5 Units/hr propofol, 0-50 mcg/kg/min Cosigned by Cornelia Serra MD at 03/15/2025 3:20 PM CDT Associated attestation - Cornelia Serra MD - 03/15/2025 3:20 PM CDT I have verified the documentation of the resident including all history, exam, and medical decision-making details. I have personally performed a physical exam and have personally reviewed the data to support my medical decision-making as outlined in their note. I agree with their assessment and plan other than any corrections/additions as documented below. Problem List: Abscess of spleen (POA: Yes) HTN (hypertension) (POA: Yes) Diverticulosis (POA: Yes) Enterococcal bacteremia (POA: Yes) Mitral valve vegetation (HCC) (POA: Yes) COPD (chronic obstructive pulmonary disease) (HCC) (POA: Yes) Endocarditis, suspected (POA: Yes) CKD (chronic kidney disease) stage 5, GFR less than 15 ml/min (HCC) (POA: Yes) Corrections/Additions: - OR today, seen and examined at bedside Date of Service: 03/15/2025 Cornelia Serra MD * Sanket Wood - 03/15/2025 7:19 AM CDT Images from the original note were not included. [facility] Internal Medicine Progress Note Name: Marshall Espinal Jr. Room/Bed: [facility] : 1960 65 year old PCP: Provider Unknown Admit Date/Time: 03/01/2025 9:44 PM LOS: 14 Subjective Interval update: NAOE. VSS. Pt was made NPO at midnight. Given Metoprolol and ASA 03/15 am. Perioperative pain management ordered by CTS. Pt will plan to go to ICU post operatively. Pt was not able to be seen prior toprocedure. Hospital course: Mr. Marshall Espinal is a 64 yo M with PMHx of HTN, CKD, COPD w h/o nephrolithiasis who presented to OSH due to 2 weeks of left sided flank pain admitted 03/01 for evaluation/management of identified mitral valve vegetation and splenia abscess in the setting of suspected endocarditis. At the OSH, CT Ab d/pelvis order that showed complex, cystic lesion of the inferior left spleen and diverticulosis. Pt was transferred to [facility] for transition of care on 03/01. In the ED, pt was started on empiric vancomycin and zosyn. On 03/02, TTE was ordered for concerns of IE. TTE showed mild mitral regurgitation and 10 x 12 mm echodensity of anterior mitral valve leaflet. Blood cultures collected in the ED and OSH grew gram positive organisms and enterococcus faecalis on 03/03. On 03/03 ID, CTS, and ACS were consulted. Per blood results, ID switched patient antibiotics to ampicillin and ceftriaxone. Per CTS, aTEE is scheduled for 03/06 for follow up and further management of care. CTS also ordered a Panorex for potential work up of dental abscess on 03/03 but was found to be unremarkable. ACS was consulted for concerns of splenic abscess but recommend against splenic drainage and signed off. On 03/04, ID ordered another blood culture for further evaluation. Preliminary result for blood cultures have comeback for no growth so far 03/06. Pt received his SINTIA on 03/06. Dentistry was consulted for dental absc ess on 03/06. SINTIA was read, concerns for large abscess on the mitral valve, CTS following and recommends urgent MV surgery with approval from nephrology, cardiology, dental, and ID. Per CTS and nephrology a VAS carotid duplex bilateral completed 03/09. Dental surgery performed 03/09. Cardiac Cath performed 03/10. CT chest Wo contrast performed 03/10. Objective Temp: [97.7 ??F (36.5 ??C)-98.2 ??F (36.8 ??C)] 97.8 ??F (36.6 ??C) Pulse: [80-93] 87 Resp: [16-20] 18 BP: (129-149)/(92-99) 129/94 Weight change: Intake/Output Summary (Last 24 hours) at 03/15/2025 0719 Last data filed at 03/15/2025 0647 Gross per 24 hour Intake 1244 ml Output 2250 ml Net -1006 ml Physical Exam: Not performed as pt in surgery Scheduled Medications: Medications[1] PRN Medications: Medications[2] Continuous Infusions: Medications[3] Laboratory Data Recent Labs Component Name 03/15/25 0631 03/14/25 0521 03/13/25 0603 WBC 11.7* 10.9* 9.6 HGB 10.8* 9.3* 8.7* HCT 34.4* 30.0* 27.7* PLTCOUNT 400 440* 423* MCV 89.8 89.0 87.1 Recent Labs Component Name 03/08/25 0505 PT 14.0 INR 1.1 Recent Labs Component Name 03/14/25 0521 03/13/25 0603 03/11/25 0606 NA 137 138 140 POTASSIUM 4.3 3.9 4.2 CL 108* 106 111* CO2 21* 23 22 BUN 31* 28* 35* CREATININE 2.89* 2.78* 2.97* Recent Labs Component Name 03/14/25 0521 03/13/25 0603 03/11/25 0606 CALCIUM 9.5 9.2 9.1 PHOS 4.0 3.7 3.9 Recent Labs Component Name 03/14/25 0521 03/13/25 0603 03/11/25 0606 PROT 7.8 7.4 7.3 ALB 3.3* 3.0* 2.9* ALKPHOS 121 120 123 AST 9 8 10 ALT <5* <5* 5 TBILI 0.1* 0.1* 0.2 No results for input(s): CKTOTAL, CKMBCK2, TROPONINI in the last 34741 hours. Recent Labs Component Name 03/03/25 0500 VANCORNDM 17.1 Microbiology Results (Displays last 21 days for this encounter ONLY) Procedure Component Value - Date/Time CULTURE BLOOD [[id number]] (Normal) Collected: 03/04/25 1109 Lab Status: Final result Specimen: Blood Peripheral Updated: 03/09/25 1330 Culture No growth day 5 CULTURE BLOOD [[id number]] (Normal) Collected: 03/04/25 1109 Lab Status: Final result Specimen: Blood Peripheral Updated: 03/09/25 1330 Culture No growth day 5 MRSA PCR [[id number]] (Normal) Collected: 03/02/25 0847 Lab Status: Final result Specimen: Microbiology from Nasal Updated: 03/02/25 1541 MRSA DNA by PCR Not detected Narrative: Methicillin-resistant Staphylococcus aureus (MRSA) DNA is not detected (presumed not colonized withMRSA). CULTURE BLOOD [[id number]] (Abnormal) Collected: 08/14/25 0533 Lab Status: Final result Specimen: Blood Peripheral Updated: 03/07/25 1038 Culture Growth of Enterococcus faecalis Gram Stain Gram-positive cocci pairs and chains Narrative: Positive at 28 Hours 19 Minutes Refer to previously reported susceptibility testing, specimen number:[id number] CULTURE BLOOD [[id number]] (Abnormal) (Susceptibility) Collected: 03/02/25532 Lab Status: Final result Specimen: Blood Peripheral Updated: 03/07/25 1038 Culture Growth of Enterococcus faecalis Gram Stain Gram-positive cocci pairs and chains Narrative: Positive at 22 Hours 44 Minutes Susceptibility Enterococcus faecalis (1) Antibiotic Interpretation Microscan Method Status Ampicillin Susceptible <=2 ug/mL LAVELLE Final Gentamicin 500 Susceptible SYN-S ug/mL LAVELLE Final Vancomycin Susceptible 2 ug/mL LAVELLE Final Susceptibility Comments Streptomycin Synergy susceptible predicts synergy between ampicillin, penicillin, or vancomycin plus streptomycin when isolates are susceptible to these agents. Combination therapy with ampicillin, penicillin or vancomycin(for susceptible strains) plus an aminoglycoside is usually indicated for serious enterococcal infections such as endocarditis, UNLESS high-level resistance to both gentamicin and streptomycin is documented. Gentamicin Synergy susceptible predicts synergy between ampicillin, penicillin, or vancomycin plus gentamicin when isolates are susceptible to these agents. Combination therapy with ampicillin, penicillin, or vancomycin (for susceptible strains) plus an aminoglycoside is usually indicated for serious enterococcal infections such as endocarditis UNLESS high-level resistance to both gentamicin and streptomycin is documented. Invasive enterococcal infections require combination therapy with susceptible agents. ID consultation is strongly recommended where available. BLOOD CULTURE ID PANEL [[id number]] (Abnormal) Collected: 03/02/25532 Lab Status: Final result Specimen: Blood Peripheral Updated: 03/03/25 1033 Enterococcus faecalis Detected Van A/B Vancomycin Resistance Not detected Comment: Results indicate vancomycin-susceptible Enterococcus faecalis. Nasir/B not detected. Narrative: Blood Culture ID Panel performed by [employer] multiplex PCR. The Test panel includes: Gram Positive Bacteria: Enterococcus faecalis, Enterococcus faecium, Listeria monocytogenes, Staphylococcus (genus), Staphylococcus aureus, Staphylococcus epidermidis, Staphylococcus lugdunensis, Streptococcus (genus), Streptococcus agalactiae (Group B), Streptococcus pneumoniae, Streptococcus pyogenes (Group A). Gram Negative Bacteria: Acinetobacter baumannii complex, Bacteroides fragilis, Haemophilus influenzae, Neisseria meningitidis (encapsulated), Pseudomonas aeruginosa, Stenotrophomonas maltophilia, Enterobacterales (formerly Enterobacteriaceae family), Enterobacter cloacae complex, Escherichia coli, K lebsiella (formerly Enterobacter) aerogenes, Klebsiella oxytoca, Klebsiella pneumoniae group, Proteus (genus), Salmonella species, Serratia marcescens. YEAST: Yesi albicans, Yesi auris, Yesi glabrata, Yesi krusei, Yesi parapsilosis, Yesi tropicalis, Cryptococcus neoformans/gattii. Antimicrobial Resistance Genes: CTX-M (extended-spectrum beta-lactamase), IMP ([place]allo beta-lactamase), KPC (carbapenemase), mcr-1 (colistin resistance determinant) mecA/C (methicillin-resistance), mecA/C and MREJ (methicillin- resistance - MRSA), NDM ([place] ywzofsr-jecv-gcpnbpnqh), OXA-48-like ( oxacillinase beta-lactamase),Nasir/B (vancomycin-resistance), VIM (Sangeeta Intergrom-Encoded [place] beta-lactamase). Imaging No results found. Relevant labs and imaging data reviewed on Epic. Assessment and Plan Abscess of spleen (POA: Yes) HTN (hypertension) (POA: Yes) Diverticulosis (POA: Yes) Enterococcal bacteremia (POA: Yes) Mitral valve vegetation (HCC) (POA: Yes) COPD (chronic obstructive pulmonary disease) (HCC) (POA: Yes) Endocarditis, suspected (POA: Yes) CKD (chronic kidney disease) stage 5, GFR less than 15 ml/min (HCC) (POA: Yes) Assessment & Plan Marshall Espinal is a 64 yo M with PMHx of HTN, CKD, COPD w h/o nephrolithiasis who presented to OSH for 2 weeks of left sided flank pain admitted 03/01 for evaluation/management of identified mitral valve vegetation and splenia abscess in the setting of suspected endocarditis. He is HDS, afebrile. Hehas scheduled MV repair/replacement surgery 03/15. #Abscess of spleen #Diverticulosis #Enterococcal bacteremia #Mitral valve vegetation (HCC) #Endocarditis, suspected - CT Abd/Pelvis, OSH (02/28/25): New 8.1 x 5.2 x 5.1 cm relatively low- attentuation likely complex cystic lesion in the inferior spleen. -This has developed since 12/05/2024 arguing against neoplasm and favring either subacute hematoma or abscess in the appropriate clinical setting. - WBCs downtrended 13-> 9.3 and has been increasing to now 11 03/15 - MRSA negative - 03/02 enterococcus faecalis detected , last positive blood cx - 03/02 TTE revealed an echodensity 10 mm x 12 mm attached to the anterior mitral leaflet, possibledifferential includes vegetation, torn chordae. - IR consulted for abscess: No indication for drainage at this time; if patient clinically worsens,could consider MRI w/ contrast but not currently indicated - ACS consulted but low suspicion of abscess, given TTE results suggesting more secondary to infectious endocarditis - 03/06 SINTIA came back for large vegetation on mitral valve with severe mitral regurgitation. Per SINTIA, CTS recommends multi team consult for approved recs to follow on surgery - Repeated Blood Cultures ordered, no growth on preliminary results - 03/09 Dental surgery completed, 9 teeth were pulled. - 03/09 left cardiac cath demonstrates 40% narrowing of mid LAD - Nephrology consulted, pt is safe to proceed with MV surgery - PT/OT cleared pt for MV surgery 03/13/25 UA- unremarkable PLAN: - Continue ampicillin q8hrs and ceftriaxone q12hrs IV 2g per ID recs - CTS MV surgery scheduled 03/15 #HTN (hypertension) - 140s/100s, VSS PLAN: - Continue po metoprolol succinate 25mg and amLODIPine (Norvasc) tablet 5 mg #COPD (chronic obstructive pulmonary disease) ([facility]) - Home meds include Trelegy, fluticasone propionate PLAN: - Incruse and symbicort while in-patient #CKD (chronic kidney disease) stage 5, GFR less than 15 ml/min ([facility]) - Cr plateau at 2.8, downtrended from 3.2 - US retroperitoneal 03/09; 2 nonobstructive renal calculi within the right kidney, Hypoechoic structure within the right kidney measuring up to 1.1 cm without definite posterior enhancement PLAN: - continue FeSo4 for hemoglobin synthesis - avoid nephrotoxic agents and continue tight control of blood pressures - nephrology following - hemodialysis line to be placed in OR Hospital Acquired Infection Risk Review: This patient does not have active central lines at this time. Incidental findings requiring follow up: Diet: DIET NPO Except: NO EXCEPTIONS DVT Prophylaxis: Lovenox (DVT Prophylaxis Dose) Code Status: Full Code Borshahramy Candidate?: No Electronically Signed By: Sanket Wood 03/15/2025 7:19 AM The above assessment and plan will be discussed with attending physician. This note is not final until attested by the attending physician. [1] 0.9% NaCl 3 mL Intracatheter q8h amLODIPine 5 mg Oral QDAY ampicillin 2 g Intravenous q8h aspirin 81 mg Oral Once budesonide-formoterol 2 puff Inhalation BID And umeclidinium 1 puff Inhalation QDAY BUPivacaine liposome 266 mg Infiltration intra-OP once cefTRIAXone 2 g Intravenous q12h chlorhexidine 15 mL Swish and Spit BID ferrous sulfate 325 mg Oral QDAY AFTER LUNCH [Held by Provider] heparin 5,000 Units Subcutaneous q8h melatonin 3 mg Oral AT BEDTIME metoprolol succinate XL 24hr 25 mg Oral AT BEDTIME montelukast 10 mg Oral AT BEDTIME pantoprazole EC 40 mg Oral QDAY polyethylene glycol 3350 17 g Oral QDAY senna 8.6 mg Oral QDAY [2] 0.9% NaCl SALINE LOCK, INSERT AND MAINTAIN AND 0.9% NaCl AND 0.9% NaCl acetaminophen dextrose IV for hypoglycemia OR dextrose IV for hypoglycemia OR glucagon fluticasone propionate glucose (Diabetic Use) gel [3] Cosigned by Cornelia Serra MD at 03/15/2025 3:20 PM CDT Associated attestation - Cornelia Serra MD - 03/15/2025 3:20 PM CDT I have verified the documentation of the medical student including all history, exam, and medical decision-making details. I have personally performed a physical exam and have personally reviewed thedata to support my medical decision-making as outlined in the medical student???s note, and I arrive independently at the same conclusion. This note is intended for educational purposes. Date of Service: 03/15/2025 Cornelia Serra MD * Dennis Delatorre MD - 03/14/2025 6:24 PM CDT Images from the original note were not included. [facility] Internal Medicine Progress Note Name: Marshall Espinal Jr. Room/Bed: [facility]/ : 1960 65 year old PCP: Provider Unknown Admit Date/Time: 03/01/2025 9:44 PM LOS: 13 Subjective Interval update: No overnight events. Reporting chronic back pain with no change in intensity or quality from admission. Hemodynamically stable. Patient denies fever, chills, nausea, vomiting, shortness of breath, orchest pain. No concerns regarding eating, urination, or bowel movements. Hospital course: Marshall Espinal is a 64 year old male with PMHx of HTN, CKD, COPD, hx of recurrent nephrolithiasiswho presents from an OSH ([place]) for a splenic abscess. Pain on left side had been happening for2 weeks. Patient has a history of kidney stones and had similar symptoms in the past, so he thoughtit was another occurrence of a kidney stone. He was seen as [facility] and was told that he was going to have imaging done to rule out kidney stones, and was found to have a splenic abscess and diverticulitis. Patient reports no prior history of diverticulitis. Patient denied any issues withtrauma to his left side with respect to the splenic abscess, and he did not notice any new changes to his bowel habits. Patient reported that he was only taking Pepto bismol for his pain. Patient otherwise well on exam with no fevers. IR consutled on admission, did not feel strongly that it was an abscess and recommended against drainage. Underwent ECHO 03/02 which revealed an echodensity 10 mm x12 mm attached to the anterior mitral leaflet, possible differential includes vegetation, torn chord ae. Cardiology was consulted, and SINTIA ordered. Blood cultures from OSH revealed 1/2 cultures positive stain for gram positive cocci. Repeat blood cultures collected at [facility] revealed similar findings,1/2 positive for gram cocci in pairs and chains and later positive for enterococci on 03/03. Infectious disease consulted for recommendations regarding bacteremia with unclear source. On 03/04, ID ordered another blood culture for further evaluation. Preliminary result for blood cultures have come back for no growth so far 03/06. Pt received his SINTIA on 03/06. Dentistry was consulted for dental abscess on 03/06. SINTIA was read, concerns for large abscess on the mitral valve, CTS following and recommends urgent MV surgery with approval from nephrology, cardiology, dental, and ID. Plan for multidisplinary rounds on 03/08, following dental surgery for approval of MV surgery. Per CTS and nephrology a VAS carotid duplex bilateral and renal ultrasound was conducted 03/08. Dental surgery performed 03/09. Cardiac Cath performed 03/10. Objective Temp: [97.7 ??F (36.5 ??C)-98.2 ??F (36.8 ??C)] 98.2 ??F (36.8 ??C) Pulse: [80-103] 88 Resp: [16-18] 17 BP: (130-149)/(90-99) 149/99 Weight change: Intake/Output Summary (Last 24 hours) at 03/14/2025 1824 Last data filed at 03/14/2025 1737 Gross per 24 hour Intake 884 ml Output 1950 ml Net -1066 ml Physical Exam: Gen: Alert, cooperative, in no acute distress HEENT: NC/AT, EOMI, no nasal drainage CV: Regular rate and rhythm. Lungs: Clear to auscultation bilaterally Abdomen: Soft, non-tender, non-distended Extremities: Nontender with normal ROM, no lower extremity edema Skin: Warm, dry Neuro: Alert and oriented to person, place, time, and situation Psych: Mood appropriate Scheduled Medications: Medications[1] PRN Medications: Medications[2] Continuous Infusions: Medications[3] Laboratory Data Recent Labs Component Name 03/14/2552003/13/25 0603 03/11/25 0606 WBC 10.9* 9.6 9.3 HGB 9.3* 8.7* 8.6* HCT 30.0* 27.7* 27.5* PLTCOUNT 440* 423* 486* MCV 89.0 87.1 87.3 Recent Labs Component Name 03/08/25 0505 PT 14.0 INR 1.1 Recent Labs Component Name 03/14/25 0503/13/25 0603 03/11/25 0606 NA 137 138 140 POTASSIUM 4.3 3.9 4.2 CL 108* 106 111* CO2 21* 23 22 BUN 31* 28* 35* CREATININE 2.89* 2.78* 2.97* Recent Labs Component Name 03/14/25 0521 03/13/25 0603 03/11/25 0606 CALCIUM 9.5 9.2 9.1 PHOS 4.0 3.7 3.9 Recent Labs Component Name 03/14/25 0521 03/13/25 0603 03/11/25 0606 PROT 7.8 7.4 7.3 ALB 3.3* 3.0* 2.9* ALKPHOS 121 120 123 AST 9 8 10 ALT <5* <5* 5 TBILI 0.1* 0.1* 0.2 No results for input(s): CKTOTAL, CKMBCK2, TROPONINI in the last 76207 hours. Recent Labs Component Name 03/03/25 0500 VANCORNDM 17.1 Microbiology Results (Displays last 21 days for this encounter ONLY) Procedure Component Value - Date/Time CULTURE BLOOD [[id number]] (Normal) Collected: 03/04/25 110 Lab Status: Final result Specimen: Blood Peripheral Updated: 03/09/25 1330 Culture No growth day 5 CULTURE BLOOD [[id number]] (Normal) Collected: 03/04/251108 Lab Status: Final result Specimen: Blood Peripheral Updated: 03/09/25 1330 Culture No growth day 5 MRSA PCR [[id number]] (Normal) Collected: 03/02/25 0847 Lab Status: Final result Specimen: Microbiology from Nasal Updated: 03/02/25 1541 MRSA DNA by PCR Not detected Narrative: Methicillin-resistant Staphylococcus aureus (MRSA) DNA is not detected (presumed not colonized withMRSA). CULTURE BLOOD [[id number]] (Abnormal) Collected: 03/02/25532 Lab Status: Final result Specimen: Blood Peripheral Updated: 03/07/25 1038 Culture Growth of Enterococcus faecalis Gram Stain Gram-positive cocci pairs and chains Narrative: Positive at 28 Hours 19 Minutes Refer to previously reported susceptibility testing, specimen number:[id number] CULTURE BLOOD [[id number]] (Abnormal) (Susceptibility) Collected: 03/02/25532 Lab Status: Final result Specimen: Blood Peripheral Updated: 03/07/25 1038 Culture Growth of Enterococcus faecalis Gram Stain Gram-positive cocci pairs and chains Narrative: Positive at 22 Hours 44 Minutes Susceptibility Enterococcus faecalis (1) Antibiotic Interpretation Microscan Method Status Ampicillin Susceptible <=2 ug/mL LAVELLE Final Gentamicin 500 Susceptible SYN-S ug/mL LAVELLE Final Vancomycin Susceptible 2 ug/mL LAVELLE Final Susceptibility Comments Streptomycin Synergy susceptible predicts synergy between ampicillin, penicillin, or vancomycin plus streptomycin when isolates are susceptible to these agents. Combination therapy with ampicillin, penicillin or vancomycin(for susceptible strains) plus an aminoglycoside is usually indicated for serious enterococcal infections such as endocarditis, UNLESS high-level resistance to both gentamicin and streptomycin is documented. Gentamicin Synergy susceptible predicts synergy between ampicillin, penicillin, or vancomycin plus gentamicin when isolates are susceptible to these agents. Combination therapy with ampicillin, penicillin, or vancomycin (for susceptible strains) plus an aminoglycoside is usually indicated for serious enterococcal infections such as endocarditis UNLESS high-level resistance to both gentamicin and streptomycin is documented. Invasive enterococcal infections require combination therapy with susceptible agents. ID consultation is strongly recommended where available. BLOOD CULTURE ID PANEL [[id number]] (Abnormal) Collected: 03/02/25 0533 Lab Status: Final result Specimen: Blood Peripheral Updated: 03/03/25 1033 Enterococcus faecalis Detected Van A/B Vancomycin Resistance Not detected Comment: Results indicate vancomycin-susceptible Enterococcus faecalis. Nasir/B not detected. Narrative: Blood Culture ID Panel performed by [employer] multiplex PCR. The Test panel includes: Gram Positive Bacteria: Enterococcus faecalis, Enterococcus faecium, Listeria monocytogenes, Staphylococcus (genus), Staphylococcus aureus, Staphylococcus epidermidis, Staphylococcus lugdunensis, Streptococcus (genus), Streptococcus agalactiae (Group B), Streptococcus pneumoniae, Streptococcus pyogenes (Group A). Gram Negative Bacteria: Acinetobacter baumannii complex, Bacteroides fragilis, Haemophilus influenzae, Neisseria meningitidis (encapsulated), Pseudomonas aeruginosa, Stenotrophomonas maltophilia, Enterobacterales (formerly Enterobacteriaceae family), Enterobacter cloacae complex, Escherichia coli, K lebsiella (formerly Enterobacter) aerogenes, Klebsiella oxytoca, Klebsiella pneumoniae group, Proteus (genus), Salmonella species, Serratia marcescens. YEAST: Ysei albicans, Yesi auris, Yesi glabrata, Yesi krusei, Yesi parapsilosis, Yesi tropicalis, Cryptococcus neoformans/gattii. Antimicrobial Resistance Genes: CTX-M (extended-spectrum beta-lactamase), IMP (metallo beta-lactamase), KPC (carbapenemase), mcr-1 (colistin resistance determinant)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 S1 and S2, grade 3/6 systolic murmur at the LSB radiating to the axillia Abdomen: soft without mass, non-tender, with normal bowel sounds. Extremities: no clubbing, cyanosis or edema Data ReviewCBC: Recent Labs Component Name 03/14/25 0521 03/13/25 0603 03/11/25 0606 WBC 10.9* 9.6 9.3 HGB 9.3* 8.7* 8.6* HCT 30.0* 27.7* 27.5* PLTCOUNT 440* 423* 486* BMP: Recent Labs Component Name 03/14/25 0521 03/13/25 0603 03/11/25 0606 POTASSIUM 4.3 3.9 4.2 CO2 21* 23 22 BUN 31* 28* 35* CREATININE 2.89* 2.78* 2.97* GLUCOSE 98 95 [address] abdomen pelvis W/O contrast: Impression Impression: 1. Large 1.6 cm obstructing stone in the right renal pelvis. Mild to moderate right hydronephrosis.Numerous additional nonobstructing right renal calculi. 2. Mild diffuse urinary bladder wall thickening. Correlate with urinalysis to exclude cystitis. 3. Bibasilar pulmonary nodules measuring up to 5 mm. Per Fleischner guidelines, if the patient is considered high risk for lung cancer, an optional follow-up CT chest can be obtained in 12 months. Ifthe patient is considered low risk, no specific follow-up is required. ECHO: 03/02/25 Summary * The left ventricle is normal in size, with normal systolic function and an estimated ejection fraction of 64 % by biplane method of disks. Left ventricular wall motion is normal. * The left ventricular diastolic function is normal. * The mitral valve is displaying restricted posterior leaflet motion with calcification. There is an echodensity 10 mm x 12 mm attached to the anterior mitral leaflet, possible differential includes vegetation, torn chordae. Need to correlate clinically and SINTIA if clinical suspicion of endocarditis. * There is mild tricuspid valve regurgitation. * There is mild mitral valve regurgitation. * The pulmonary artery systolic pressure is normal, 27 mmHg. LHC: 40% narrowing in mid LAD. Overall, nonobstructive CAD. Left dominant circulation Right radial artery access, hemostasis by TR band. Panorex 03/02/25 MPRESSION: Lucencies within the right mandibular presumed location of absent of the molar and premolar teeth. Recommend dental consultation. The report was drafted by Ofe Aponte MD (president finance company) 03/04/2025 8:30 AM. > Dictated by Lighting Equipment Operator SINTIA Summary * There is a 1.16 cm x 0.78 cm mobile vegetation attached to the atrial surface of the anterior mitral valve leaflet tip (around the A2/A3 scallop tip). * There is moderate to severe mitral valve regurgitation with a very eccentric posterior jet that originates at the site of the vegetation. Mitral valve regurgitant volume is 30 ml regurgitant fraction is calculated 33%. 3-D ERO area is 0.36 cm2. Vena contracta width (2D) 0.42 cm. 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 * Agitated saline contrast study at rest and with Valsalva is negative for a shunt. * Normal left ventricular systolic function. Visually estimated LV EF is 55-60%. * Right ventricular systolic function is grossly normal. Panorex 03/04/25 FINDINGS: Multiple dental restorations are identified, and numerous teeth are absent. There are scattered dental caries. No acute mandibular fracture is identified. Both temporomandibular joints are intact. Lucencies within the right mandibular presumed location of absent of the molar and premolar teeth. IMPRESSION: Lucencies within the right mandibular presumed location of absent of the molar and premolar teeth. Recommend dental consultation. The report was drafted by Ofe Aponet MD (president finance company) 03/04/2025 8:30 AM. Carotid US completed 03/07/25 There is less than 50% stenosis of bilateral internal carotid arteries. Bilateral vertebral flow isantegrade. Renal US, completed 03/09 -IMPRESSION: 1.Hypoechoic structure within the right kidney measuring up to 1.1 cm without definite posterior enhancement. This may represent a complex cyst however a neoplastic process cannot be ruled out. Recommend cross-sectional imaging with the renal protocol for further evaluation. 2.There are 2 nonobstructive renal calculi within the right kidney. There is a complex cyst within the right kidney. 3.No hydronephrosis bilaterally. 4.Complex anechoic structure within the spleen, may represent a hematoma however cannot exclude other etiologies. Multiphase CT or MR imaging may be obtained for further evaluation if clinically indicated. CT Chest: -No CI to aortic manipulation 1.A few sub-5 mm nodules within bilateral upper lobes. No evidence of septic emboli. 2.Partially visualized 8.3 cm hypoattenuating area in the spleen, cannot be characterized on this noncontrast examination. Further evaluation with CT or MRI imaging recommended if clinically indicated. Will defer further work up of above CT findings to primary team Assessment and Plan: Marshall is in good spirits and without complaints DIAGNOSIS: Patient is a 64 year old male with past medical history for HTN, CKD w/ hx of nephrolithiasis, (obstructive, s/p stents), anemia of chronic, COPD, periodontal disease, and GERD who presented from OSH for surgical evaluation of his mitral valve endocarditis. Echo w/ MV vegetation 1x1.2cm w/ mild MR - transfer to [facility]. Patient is now afebrile, WBC stable at 11, Cr. Elevated at 3 (unclear baseline) upon admit. Surgery scheduled with Dr. Hernandez on 03/15/25 MV endocarditis E. Faecalis -SINTIA 03/07 with moderate to severe eccentric MR, posterior leaflet with restriction, mobile vegetation on the anterior leaflet - Splenic infarct - Abx ampicillin and ceftriaxone, ID managing. - Bcs from 03/04- negative for growth - Last positive BC 03/02 Periodontal disease - mult teeth extracted 03/09 - reports mouth as sore but able to eat H/o obstructive renal calculi requiring intervention/stents - Renal US 03/09 reveals 2 nonobstructive renal calculi within the right kidney CKD stage 4 - Will likely need HD post surgery. - HD line to be placed in OR. 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 GERD (gastroesophageal reflux disease) HTN (hypertension) Nephrolithiasis Obstructive uropathy [2] Past Surgical History: Procedure Laterality Date CYSTOSCOPY cystoscopy with ureteral stent placement ORAL SURGERY N/A 03/09/2025 N/A; EXTRACTION DENTAL (MULTIPLE) Retinal Detachment Repair Bilateral [3] Medications Prior to Admission Medication Sig Dispense Refill amLODIPine (Norvasc) 5 MG tablet Take 1 (one) tablet by mouth once daily metoprolol succinate XL 24hr (Toprol XL) 25 MG tablet Take 1 (one) tablet by mouth once daily montelukast (Singulair) 10 MG tablet Take 1 (one) tablet by mouth at bedtime omeprazole (PriLOSEC) 40 MG capsule Take 1 (one) capsule by mouth daily before breakfast [4] No Known Allergies [5] Family History Problem Relation Name Age of Onset COPD - Chronic Obstructive Pulmonary Disease Mother Renal Disease Father Cosigned by Rahul Hernandez MD at 03/22/2025 3:19 PM CDT Associated attestation - Rahul Hernandez MD - 03/22/2025 3:19 PM CDT I have reviewed the patient's medical record; I have seen and examined the patient with the TIFFANIE. I have discussed and directed the medical management /treatment and performed decision making for the patient's medical condition and take responsibility for management risk pertaining to this patient. I agree with the findings and plan of care as documented by the TIFFANIE. Rahul Hernandez MD. * Aissatou Martha E - 03/14/2025 8:27 AM CDT Images from the original note were not included. [facility] Department of Nephrology Progress Note Date of Admission: 03/01/2025 Length of Stay: 13 Date of Service: 03/14/25 Reason for Consult: Chronic Kidney Disease Hospital Course: Marshall Espinal Jr. is a 65 year old male with PMHx HTN, COPD, CKD Stage 4, and recurrent nephrolithiasis who presented to [facility] on 03/04/25 as transfer from OSH for splenic abscess intervention by [facility] IR. On admission, patient seen by IR who stated drainage not indicated. Patient had TTE followed by SINTIA with findings of mitral valve vegetation concerning for endocarditis. Blood cultures from OSH revealed 1/2 positive for gram-positive cocci. Repeat blood cultures at [facility] revealed similar findings, later positive for enterococci on 03/03. Infectious disease consulted for recommendations regarding bacteremia. Cardiac surgery consulted for management of endocarditis with plan for surgery on 03/15. Nephrology consulted for management of SELWYN in setting of CKD and perioperative recommendations pending cardiac surgery intervention for endocarditis. Baseline creatinine unknown. Creatinine around 3 and downtrending this admission. Per chart review, patient was hospitalized in February 2024 for hyperkalemia and acute renal failure with creatinine elevated to 10.4. Creatinine decreased to 4.47 priorto discharge. Noted to have right-sided hydronephrosis for which patient underwent cystoscopy with bilateral ureteral stent placement. Interval History: - LHC done on 03/10 - CTS scheduled surgery 03/15 - NAEON - Cr slightly elevated at 2.89 from yesterday (2.78), although overall downtrending throughout admission OBJECTIVE: Vital Signs: Temp: [97.7 ??F (36.5 ??C)-98.1 ??F (36.7 ??C)] 97.7 ??F (36.5 ??C) Pulse: [80-103] 80 Resp: [16-18] 16 BP: (132-137)/(89-97) 132/97 Intake/Output: Intake/Output Summary (Last 24 hours) at 03/14/2025 0827 Last data filed at 03/14/2025 0620 Gross per 24 hour Intake 840 ml Output 1625 ml Net -785 ml Physical Exam: General - NAD, afebrile, non-cachectic HEENT - NC/AT, clear conjunctivae, moist mucous membranes Pulm - Unlabored respirations on room air, CTAB, no crackles or wheezes bilaterally CV - RRR, no m/r/g Abdomen - Soft, NT/ND, +BS Musculoskeletal - Moves all four extremities, no swelling or tenderness Extremities - No cyanosis or edema Skin - No rashes, lesions, or jaundice Psych - Appropriate mood and affect Labs: CBC: Recent Labs Component Name 03/14/25 0521 03/13/25 0603 03/11/25 0606 WBC 10.9* 9.6 9.3 RBC 3.37* 3.18* 3.15* HGB 9.3* 8.7* 8.6* HCT 30.0* 27.7* 27.5* BMP: Recent Labs Component Name 03/14/25 0521 03/13/25 0603 03/11/25 0606 NA 137 138 140 CL 108* 106 111* CO2 21* 23 22 BUN 31* 28* 35* CREATININE 2.89* 2.78* 2.97* CALCIUM 9.5 9.2 9.1 LFTs: Recent Labs Component Name 03/14/25 0521 03/13/25 0603 03/11/25 0606 AST 9 8 10 ALT <5* <5* 5 ALKPHOS 121 120 123 TBILI 0.1* 0.1* 0.2 ALB 3.3* 3.0* 2.9* Phosphorus: Recent Labs Component Name 03/14/25 0521 03/13/25 0603 03/11/25 0606 PHOS 4.0 3.7 3.9 Coagulation: Recent Labs Component Name 03/08/25 0505 PT 14.0 INR 1.1 ASSESSMENT/PLAN: #SELWYN - resolving #CKD Stage 4 #Mitral valve vegetation - Per chart review, baseline Cr appears to be ~2, as documented by [facility] in November 2024 although unclear where this data was gathered from - Hospitalization in February 2024 for hyperkalemia and acute renal failure with Cr elevated to 10.4,decreased to 4.47 prior to discharge - Bilateral ureteral stents placed during February 2024 admission due to right- sided hydronephrosis - Current serum creatinine 2.89, slightly elevated from yesterday but overall downtrending - Renal US: 03/09: Hypoechoic structure within the right kidney measuring up to 1.1 cm without definite posterior enhancement. This may represent a complex cyst however a neoplastic process cannot be ruled out. There are 2 nonobstructive renal calculi within the right kidney. There is a complex cyst within the right kidney. No hydronephrosis bilaterally. 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 Delaying intervention for vegetation likely exceeds the risk of worsening renal function with said interventions - No plans to initiate dialysis following cardiac surgery at this time, plan to reassess after procedure - Continue FeSo4 PO - Continue checking daily renal function panel - Avoid unnecessary nephrotoxic medications - MAP goal >65 - Transfuse if Hgb <7 Patient seen and discussed with attending physician, Dr. Lemon. Please note, recommendations are not final until attested/co-signed by the attending physician. Martha Reyez [facility] [employer] [employer] 03/14/2025 8:27 AM Cosigned by Diomedes Lemon MD at 03/14/2025 4:21 PM CDT Associated attestation - Diomedes Lemon MD - 03/14/2025 4:21 PM CDT Nephrology Attending Physician I have verified the documentation of the medical student including all history, exam, and medical decision-making details. I have personally performed a physical exam and have personally reviewed thedata to support my medical decision-making as outlined in the medical student???s note, and I arrive independently at the same conclusion. Pt was lying down comfortably, RRR, CTAB, no edema. Cr is stable at 2.89. Urinating well, 1.6L and 1 unmeasured urine. Pt is scheduled for cardiac surgery tomorrow, will f/u renal function closely post-op. Date of Service: 03/14/25 Diomedes Lemon MD Division of Nephrology * Alejandra Sanchez RN - 03/13/2025 1:09 PM CDT Care Coordination Progress Note Expected Discharge Date: 03/17/2025 Discharge Plan: Once medically ready, the patient will discharge home with no additional needs. Thepatient is scheduled to go to the OR for a valve replacement on 03/15/25. CM will continue to follow. Family Support (Name and Phone): Extended Emergency Contact Information Primary Emergency Contact: irma espinal Mobile Relation: Spouse Preferred language: [place] Broke Handler needed? No Secondary Emergency Contact: Katie Diggs Mobile Relation: Daughter Preferred language: [place] Broke Handler needed? No Transportation at Discharge: Family: READMISSION RISK SCORE is 13 at 1:09 PM 03/13/2025.: Name: Alejandra Sanchez RN * Martha Reyez E - 03/13/2025 1:01 PM CDT Images from the original note were not included. [facility] Department of Nephrology Progress Note Date of Admission: 03/01/2025 Length of Stay: 12 Date of Service: 03/13/25 Reason for Consult: Chronic Kidney Disease Hospital Course: Marshall Espinal Jr. is a 65 year old male with PMHx HTN, COPD, CKD Stage 4, and recurrent nephrolithiasis who presented to [facility] on 03/04/25 as transfer from OSH for splenic abscess intervention by [facility] IR. On admission, patient seen by IR who stated drainage not indicated. Patient had TTE followed by SINTIA with findings of mitral valve vegetation concerning for endocarditis. Blood cultures from OSH revealed 1/2 positive for gram-positive cocci. Repeat blood cultures at [facility] revealed similar findings, later positive for enterococci on 03/03. Infectious disease consulted for recommendations regarding bacteremia. Cardiac surgery consulted for management of endocarditis with plan for surgery on 03/15. Nephrology consulted for management of SELWYN in setting of CKD and perioperative recommendations pending cardiac surgery intervention for endocarditis. Baseline creatinine unknown. Creatinine around 3 and downtrending this admission. Per chart review, patient was hospitalized in February 2024 for hyperkalemia and acute renal failure with creatinine elevated to 10.4. Creatinine decreased to 4.47 priorto discharge. Noted to have right-sided hydronephrosis for which patient underwent cystoscopy with bilateral ureteral stent placement. Interval History: - LHC done on 03/10 - CTS scheduled surgery 03/15 - NAEON - Reported mild R-sided back/flank pain - Stable renal panel with Cr downtrending OBJECTIVE: Vital Signs: Temp: [97.8 ??F (36.6 ??C)-98.2 ??F (36.8 ??C)] 97.8 ??F (36.6 ??C) Pulse: [87-98] 94 Resp: [16-18] 18 BP: (132-145)/(89-101) 134/89 Intake/Output: Intake/Output Summary (Last 24 hours) at 03/13/2025 1301 Last data filed at 03/13/2025 0800 Gross per 24 hour Intake 476 ml Output 1925 ml Net -1449 ml Physical Exam: General - NAD, afebrile, non-cachectic HEENT - NC/AT, clear conjunctivae, moist mucous membranes Pulm - Unlabored respirations on room air, CTAB, no crackles or wheezes bilaterally CV - RRR, no m/r/g Abdomen - Soft, NT/ND, +BS Musculoskeletal - Moves all four extremities, no swelling or tenderness Extremities - No cyanosis or edema Skin - No rashes, lesions or jaundice Psych - Appropriate mood and affect Labs: CBC: Recent Labs Component Name 03/13/2560203/11/2560503/10/25 06 WBC 9.6 9.3 10.9* RBC 3.18* 3.15* 3.07* HGB 8.7* 8.6* 8.7* HCT 27.7* 27.5* 26.8* BMP: Recent Labs Component Name 03/13/2560203/11/25 0603/10/25 0605 NA 138 140 137 CL 106 111* 109* CO2 23 22 19* BUN 28* 35* 32* CREATININE 2.78* 2.97* 3.09* CALCIUM 9.2 9.1 9.2 LFTs: Recent Labs Component Name 03/13/2560203/11/25 0603/10/25 06 AST 8 10 10 ALT <5* 5 7 ALKPHOS 120 123 127 TBILI 0.1* 0.2 0.2 ALB 3.0* 2.9* 3.0* Phosphorus: Recent Labs Component Name 03/13/2560225 0606 03/10/25 0605 PHOS 3.7 3.9 4.4 Coagulation: Recent Labs Component Name 03/08/25 0505 PT 14.0 INR 1.1 ASSESSMENT/PLAN: #SELWYN - resolving #CKD Stage 4 #Mitral valve vegetation - Baseline Cr unknown - Hospitalization in February 2024 for hyperkalemia and acute renal failure with Cr elevated to 10.4,decreased to 4.47 prior to discharge - Bilateral ureteral stents placed during February 2024 admission due to right- sided hydronephrosis - Current serum creatinine 2.78, downtrending - Renal US: 03/09: Hypoechoic structure within the right kidney measuring up to 1.1 cm without definite posterior enhancement. This may represent a complex cyst however a neoplastic process cannot be ruled out. There are 2 nonobstructive renal calculi within the right kidney. There is a complex cyst within the right kidney. No hydronephrosis bilaterally. 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 Delaying intervention for vegetation likely exceeds the risk of worsening renal function with said interventions - No plans to initiate dialysis following cardiac surgery at this time, plan to reassess after procedure - Continue FeSo4 PO - Continue checking daily renal function panel - Avoid unnecessary nephrotoxic medications - MAP goal >65 Patient seen and discussed with attending physician, Dr. Lemon. Please note, recommendations are not final until attested/co-signed by the attending physician. Martha Reyez [employer], [employer] 03/13/2025 1:01 PM Cosigned by Diomedes Lemon MD at 03/13/2025 8:00 PM CDT Associated attestation - Diomedes Lemon MD - 03/13/2025 8:00 PM CDT Nephrology Attending Physician I have verified the documentation of the medical student including all history, exam, and medical decision-making details. I have personally performed a physical exam and have personally reviewed thedata to support my medical decision-making as outlined in the medical student???s note, and I arrive independently at the same conclusion. SELWYN on CKD4. Renal function is improving daily to 2.78 today from max 3.6 on 03/03. Cont to monitor closely post cardiac surgery. Date of Service: 03/13/25 Diomedes Lemon MD Division of Nephrology * Ben Aliciacecilio Cason PA-C - 03/13/2025 12:17 PM CDT Images from the original note were not included. [facility] Infectious Diseases Inpatient Progress Note Patient Name: Marshall Espinal Jr. 1960 Room: [facility] Date of Admission: 03/01/2025 Date of Service: 03/13/2025 Primary Care Physician: Provider Unknown Attending Physician: Adalberto Arroyo MD Assessment and Recommendations Marshall Espinal Jr. is a 65 year old white male with PMH of HTN, CKD, COPD, hx of nephrolithiasis,and alcohol use disorder who presents from an OSH ([place]) for evaluation of a possible splenic abscess. This admission found to have: Enterococcus faecalis bacteremia MV infective endocarditis - Consider sources: Poor dentition, ureteral stents, less likely diverticulosis or splenic lesion - 02/28 (OSH) Bcx 2/2 with E.faecalis (reports being faxed 03/09/2025) - 03/02 ([facility]) repeat BCX 2/2 E.faecalis - 03/04: Bcx prelim no growth - 03/02: TTE shows an echodensity 10 mm x 12 mm attached to the anterior mitral leaflet, possible differential includes vegetation, torn chordae. - 03/06: SINTIA with 1.16 cm x 0.78 cm mobile vegetation attached to the atrial surface of the anteriormitral valve leaflet tip (around the A2/A3 scallop tip). - CTS planning for surgery on 03/15/25. - On ampicillin / ceftriaxone since 03/03 Concerns for splenic abscess - CT Abd/Pelvis, OSH (02/28/25): New 8.1 x 5.2 x 5.1 cm relatively low- attentuation likely complex cystic lesion in the inferior spleen. This has developed since 12/05/2024 arguing against neoplasm and favring either subacute hematoma or abscess in the appropriate clinical setting. - Both IR and general surgery evaluated patient with low suspicion for splenic abscess: Likely subacute hemorrhage or less likely cyst or infarct. Poor Dentition - Patient had dental extractions recently prior to admission - 03/03/2025: Panorex with lucencies within right mandibular presumed location of abset molar and premolar teeth. - 03/07/2025: Dental consult recommending extractions of multiple teeth prior to cardiac intervention. - 03/09: s/p teeth multiple extractions Diverticulosis: - CT Abd/Pelvis, OSH (02/28/25): Moderate diverticulosis without evidence of diverticulitis. Moderate bilateral fat-containing inguinal hernia. - CT Abd/Pelvis without contrast (03/04/25): Limited exam due to lack of IV contrast. - Pt will L-sided abdominal tenderness for the past 2 weeks. Stable and 4/10 pain. Per pt, no hx ofdiverticulosis / diverticulitis and no change in bowel movements. - Continue to monitor symptoms SELWYN - Nephrology consulted. - Avoid nephrotoxic agents when able - Renally dosing antibiotics as appropriate. Nephrolithiasis -10/2023: admitted for hyperkalemia and acute renal failure, underwent cystoscopy with bilateral ureteral stenting. -03/09/25: Renal US with 2 non-obstructive renal calculi on the rigt kidney. History of ETOH use - Patient reports drinking up to 1 pint per day. - Quit in 10/2024; prior to admission CDC Screening - HIV and Hepatitis C screening negative this admission QTC: NA Renal Function: Estimated Creatinine Clearance: 27 mL/min (A) (by C-G formula based on SCr of 2.78 mg/dL (H)). Hardware: Recommendations: - Continue IV ceftriaxone 2 g every 12 hours - Continue IV ampicillin 2g every 8 hours (renally dosed) - Follow CTS recommendations. Planned for surgery on 03/15/25. When patient goes to OR please send valve / vegetation for all cultures including standard bacterial, anaerobic, AFB smear + culture, fungal smear + culture, and tissue for histopathology. - Check CBC with auto diff and CMP at least weekly while on IV antibiotics. We are actively monitoring signs of antibiotic toxicity to ensure safe and effective therapy. Follow-up in [facility] ID clinic on: TBD [facility] ID clinic [address], [address] [place] [address] Clinic phone [phone] Clinic fax [phone] If there any concerns, please call [facility] infectious disease clinic: phone Thank you for allowing us to participate in the care of this patient. We will continue to follow and monitor with you closely. Please call the Ortho ID pager [phone] with any questions M-F. Ortho ID is not available on the weekends. Please contact general ID inpatient team (team 1) duringthis time. I spent 35 mins in the care of this patient to include chart review, coordination of care, patient interview / examination / education, and documentation independent from the attending physician. I spent an additional 10 mins in discussion with attending physician Diana regarding patient case. Patient seen and examined, case/plan were discussed with ID Attending physician. KAYODE King (Maggie), PA-C Division of Infectious Diseases Contact via [employer] Secure [employer] ID Clinic ID Clinic Office Subjective Interval History: Today, 03/13/25: Patient has been afebrile, HDS. Today, notes low back pain that has has been improving over the course of admission. Localized at the left low back, no midline spinal tenderness. He thinks it may be related to laying down for too long. Otherwise tolerating antibiotics well, no fevers, chills, N/V/D, itching/rashes. Eating and urinating appropriately. WBC improved to 9.6, Cr improving to 2.78. MVR surgery scheduled for 03/15. HPI (Copied From Previous ID Consult note): Consult HPI from ID fellow Amy with updates: Marshall Espinal Jr. is a 65 year old white male with PMH of HTN, CKD, COPD, hx of nephrolithiasis who presents from an OSH ([facility]) for a splenic abscess. Before presenting to OSH, patient had been experiencing L-sided pain for 2 weeks. Also having fevers intermittently ([id number] ??F, was on and off since 02/24/25). CT Abd/Pelvis 02/28 notable for New 8.1 x 5.2 x 5.1 cm relatively low-attentuation likely complex cystic lesion in the inferior spleen. This has developed since 12/05/2024 arguing against neoplasm and favring either subacute hematoma orabscess in the appropriate clinical setting and moderate diverticulosis w/o evidence of diverticulitis. Patient reports no prior history of diverticulitis. Patient denied any issues with trauma tohis left side with respect to the splenic abscess, and he did not notice any new changes to his bowel habits or endorsed abdominal pain with respect to the diverticulitis. 02/28/25 - BCx revealing 2/2positive for GPC (E.faecalis) at OSH. Transferred to [facility] 03/01 for further evaluation. VSS on admission. Labs notable for negative Mononucleosis screen and MRSA PCR. TTE 03/02 demonstrating an echodensity 10 mm x 12 mm attached to the anterior mitral leaflet, possible differential includes vegetation, torn chordae. Repeat blood cultures on 03/02 at [facility] 2/2 positive for E Faecalis. Patient reports stable L-sided abdominal/back discomfort (4/10 pain). Denies fever, chills, n/v, dysuria, dyschezia.Complains of headache. 03/02/2025: IR consulted for splenic abscess. Noted that it is unlikely that patient's infection 2/2 to splenic abscess. Recommend further infectious workup. No acute intervention 03/03/2025: Panorex with lucencies within right mandibular presumed location of abset molar and premolar teeth. On 03/07: Dental consult recommending extractions of multiple teeth prior to cardiac intervention. 03/03/2025: General surgery consulted for splenic abscess. Agree with IR that unlikely to represent splenic abscess. Likely subacute hemorrhage or less likely cyst or infarct. No acute surgical intervention. 2025: SINTIA with 1.16 cm x 0.78 cm mobile vegetation attached to the atrial surface of the anterior mitral valve leaflet tip (around the A2/A3 scallop tip). 03/07/2025: Nephrology consulted for SELWYN 03/08/2025: CTS recommending multidisciplinary meeting with infectious disease, cardiology, CTS. Surgery timing to be determined. 03/09/2025: WBC 11., Hgb 8.9, plt 548. Creatinine 3.18, GFR 21. Afebrile, HDS. Patient states that he still feels like there is something in the belly but he has no pain. No fevers, chills, n/v/d, constipation, rashes, itching, heart palpitations, shortness of breath, pleuritic chest pain. Reportshe has a history of dental extractions about 1 week prior to becoming ill. Reports he had kidney stone retrieval at [facility] earlier this year. Going for cardiac cath today. 03/10/2025: s/p multiple dental extractions. Social hx: Lives at home in house with dog and . [place]. No smoking, no illicit drug use / IVDU. He reports heavy alcohol use (1 pint per day) quit in October of 2024. 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 Pertinent Review of Systems: General: weight loss/gain, changes in PO intake, Fever/Chills HEENT: Hearing loss or changes, visual changes, dental pain Respiratory: dyspnea, wheezing, cough, sputum production, hemoptysis, pleuritic chest pain Cardiac: Chest pain, dyspnea on exertion, palpitations, dizziness Gastrointestinal: abdominal pain, nausea, vomiting, diarrhea, constipation, melena or hematochezia Genitourinary: dysuria, hematuria, hesitancy, frequency, hematuria Musculoskeletal: muscle weakness, joint pain/stiffness, limited range of motion, myalgias Skin: rashes, pruritis Neuro: Headaches or visual changes, dizziness Antimicrobial History Current Antibiotics Ceftriaxone 03/03 - present Ampicillin 03/03 - present Prior Antibiotics At [facility] Zosyn 03/02 - 03/03 Vancomycin 03/01 - 03/03 Prior Antibiotics at OSH Inpatient Medications Medications[1] Medications[2] Objective VITALS BP 134/89 (BP Location: Right arm) Pulse 94 Temp 97.8 ??F (36.6 ??C) (Oral) Resp 18 Ht 1.702 m (5' 7.01) Wt 81 kg (178 lb 8 oz) SpO2 98% Temp (24hrs), Av ??F (36.7 ??C), Min:97.8 ??F (36.6 ??C), Max:98.2 ??F (36.8 ??C) PHYSICAL EXAM General: Alert, no distress, not toxic appearing, laying in bed. Head: Normocephalic, atraumatic EENT: PERRLA, Ptosis of the left eyelid. normal conjunctiva, anicteric sclerae. Nose Normal. No thrush. Poor dentition. Neck: Supple, No cervical lymphadenopathy. No JVD. Chest wall: No tenderness. Lungs: Clear to auscultation bilaterally, no wheezes, rales, rhonchi. Heart: RRR, S1, S2 normal, no murmur, gallops, or rubs. Abdomen: Soft, non-distended, non-tender, no peritoneal signs, no guarding or rigidity, bowel sounds normal Back: No midline spinal tenderness. No CVA tenderness. Mild tenderness at lower left paraspinal muscles. Extremities: No cyanosis or edema bilateral lower extremities. Onychomycosis great toes. Skin: No rashes. Neurologic: Alert and oriented x 3, moving all extremities Psychiatry: Appropriate mood/affect Lines: PIV Lab Review CBC: Recent Labs Component Name 03/13/25 0603 03/11/25 0606 03/10/25 0605 WBC 9.6 9.3 10.9* RBC 3.18* 3.15* 3.07* HGB 8.7* 8.6* 8.7* HCT 27.7* 27.5* 26.8* MCV 87.1 87.3 87.3 BMP: Recent Labs Component Name 03/13/25 0603 03/11/25 0606 03/10/25 0605 NA 138 140 137 CL 106 111* 109* CO2 23 22 19* BUN 28* 35* 32* CREATININE 2.78* 2.97* 3.09* ALB 3.0* 2.9* 3.0* PROT 7.4 7.3 7.7 estimated creatinine clearance is 27 mL/min (A) (by C-G formula based on SCr of 2.78 mg/dL (H)). LFTs: Recent Labs Component Name 03/13/25 0603 03/11/25 0606 03/10/25 0605 ALKPHOS 120 123 127 ALT <5* 5 7 AST 8 10 10 ESR: No results for input(s): ESR in the last 81961 hours. CRP: No results for input(s): CRP in the last 49676 hours. CK: No results for input(s): CK in the last 86371 hours. Coagulation: Recent Labs Component Name 03/08/25 0505 PT 14.0 INR 1.1 Microbiology, Imaging and other diagnostic tests MICROBIOLOGY: Blood culture: 02/28 (OSH): 2/2 GPCs - E.faecalis (report w/ cultures & sensitivities in media tab from 03/09/25) 03/02 ([facility]): 2/2 E.faecalis 03/04: NGTD Other Serologies: 03/02: MRSA nares PCR Negative 03/02: [place] quant negative 03/04: - HIV non-reactive - Hep B core ab IgM non-reactive - Hep B surface ab quant < 3.0 - Hep B surface ab non-reactive - Hep B surface ag non-reactive - Hep C ab - non-reactive HISTOPATHOLOGY: None at this admission IMAGING & PROCEDURES: I have independently reviewed all pertinent imaging data. Reports available in EMR. CT ABD PELVIS OSH (02/28/25): New 8.1 x 5.2 x 5.1 cm relatively low-attentuation likely complex cystic lesion in the inferior spleen. This has developed since 12/05/2024 arguing against neoplasm and favring either subacute hematoma or abscess in the appropriate clinical setting. Moderate diverticulosis without evidence of diverticulitis. Moderate bilateral fat-containing inguinal hernia. TTE 03/02 The left ventricle is normal in size, with normal systolic function and an estimated ejection fraction of 64 % by biplane method of disks. Left ventricular wall motion is normal. * The left ventricular diastolic function is normal. * The mitral valve is displaying restricted posterior leaflet motion with calcification. There is an echodensity 10 mm x 12 mm attached to the anterior mitral leaflet, possible differential includes vegetation, torn chordae. Need to correlate clinically and SINTIA if clinical suspicion of endocarditis. * There is mild tricuspid valve regurgitation. * There is mild mitral valve regurgitation. * The pulmonary artery systolic pressure is normal, 27 mmHg. PANOREX (03/03/2025): IMPRESSION: Lucencies within the right mandibular presumed location of absent of the molar and premolar teeth. Recommend dental consultation. CT ABD/PELVIS WO (03/04/2025): 1. Large 1.6 cm obstructing stone in the right renal pelvis. Mild to moderate right hydronephrosis.Numerous additional nonobstructing right renal calculi. 2. Mild diffuse urinary bladder wall thickening. Correlate with urinalysis to exclude cystitis. 3. Bibasilar pulmonary nodules measuring up to 5 mm. Per Fleischner guidelines, if the patient is considered high risk for lung cancer, an optional follow-up CT chest can be obtained in 12 months. Ifthe patient is considered low risk, no specific follow-up is required. SINTIA 03/06/25 Summary * There is a 1.16 cm x 0.78 cm mobile vegetation attached to the atrial surface of the anterior mitral valve leaflet tip (around the A2/A3 scallop tip). * There is moderate to severe mitral valve regurgitation with a very eccentric posterior jet that originates at the site of the vegetation. Mitral valve regurgitant volume is 30 ml regurgitant fraction is calculated 33%. 3-D ERO area is 0.36 cm2. Vena contracta width (2D) 0.42 cm. 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 * Agitated saline contrast study at rest and with Valsalva is negative for a shunt. * Normal left ventricular systolic function. Visually estimated LV EF is 55-60%. * Right ventricular systolic function is grossly normal. VAS CAROTID DUPLEX BILATERAL (03/07/2025): > 50% stenosis in bilateral carotids US RETROPERITONEAL (03/07/2025) 1.Hypoechoic structure within the right kidney measuring up to 1.1 cm without definite posterior enhancement. This may represent a complex cyst however a neoplastic process cannot be ruled out. Recommend cross-sectional imaging with the renal protocol for further evaluation. 2.There are 2 nonobstructive renal calculi within the right kidney. There is a complex cyst within the right kidney. 3.No hydronephrosis bilaterally. 4.Complex anechoic structure within the spleen, may represent a hematoma however cannot exclude other etiologies. Multiphase CT or MR imaging may be obtained for further evaluation if clinically indicated. CT [facility] (03/10/25): 1.A few sub-5 mm nodules within bilateral upper lobes. No evidence of septic emboli. 2.Partially visualized 8.3 cm hypoattenuating area in the spleen, cannot be characterized on this noncontrast examination. Further evaluation with CT or MRI imaging recommended if clinically indicated. [1] 0.9% NaCl 3 mL Intracatheter q8h amLODIPine 5 mg Oral QDAY ampicillin 2 g Intravenous q8h budesonide-formoterol 2 puff Inhalation BID And umeclidinium 1 puff Inhalation QDAY cefTRIAXone 2 g Intravenous q12h ferrous sulfate 325 mg Oral QDAY AFTER LUNCH heparin 5,000 Units Subcutaneous q8h melatonin 3 mg Oral AT BEDTIME metoprolol succinate XL 24hr 25 mg Oral AT BEDTIME montelukast 10 mg Oral AT BEDTIME pantoprazole EC 40 mg Oral QDAY polyethylene glycol 3350 17 g Oral QDAY senna 8.6 mg Oral QDAY [2] Cosigned by Rigo Ortiz MD at 03/13/2025 4:55 PM CDT Associated attestation - Rigo Ortiz MD - 03/13/2025 4:55 PM CDT Infectious Diseases Attending Attestation For this patient encounter, IRigo MD, in collaboration with Alicia Contreras PA-C have reviewed their work records and practice regarding quality and appropriateness of professional services provided. I discussed this patient with Alicia Contreras PA-C and reviewed their documentation and agree with their history, physical examination findings, assessment, and plan of care. Additionally, I reviewed labwork, relevant imaging, and pertinent history. I agree with the assessment and plan as detailed in their note. Please see Alicia Contreras PA-C note for full details. I have spent 35 minutes with the patient and/or guardian ([id number]) or on the patient???s floor/unit, of which more than 50% of the time was spent in counseling and/or coordination of care. Rigo Ortiz MD Infectious Diseases Attending [facility] * Dennis Delatorre MD - 03/13/2025 7:44 AM CDT Images from the original note were not included. [facility] Internal Medicine Progress Note Name: Marshall Esipnal Jr. Room/Bed: [facility] : 1960 65 year old PCP: Provider Unknown Admit Date/Time: 03/01/2025 9:44 PM LOS: 12 Subjective Interval update: No overnight events. Reporting chronic back pain with no change in intensity or quality from admission. Hemodynamically stable. Patient denies fever, chills, nausea, vomiting, and shortness of breath. Hospital course: Marshall Espinal is a 64 year old male with PMHx of HTN, CKD, COPD, hx of recurrent nephrolithiasiswho presents from an OSH ([facility]) for a splenic abscess. Pain on left side had been happening for2 weeks. Patient has a history of kidney stones and had similar symptoms in the past, so he thoughtit was another occurrence of a kidney stone. He was seen as [facility] and was told that he was going to have imaging done to rule out kidney stones, and was found to have a splenic abscess and diverticulitis. Patient reports no prior history of diverticulitis. Patient denied any issues withtrauma to his left side with respect to the splenic abscess, and he did not notice any new changes to his bowel habits. Patient reported that he was only taking Pepto bismol for his pain. Patient otherwise well on exam with no fevers. IR consutled on admission, did not feel strongly that it was an abscess and recommended against drainage. Underwent ECHO 03/02 which revealed an echodensity 10 mm x12 mm attached to the anterior mitral leaflet, possible differential includes vegetation, torn chord ae. Cardiology was consulted, and SINTIA ordered. Blood cultures from OSH revealed 1/2 cultures positive stain for gram positive cocci. Repeat blood cultures collected at [facility] revealed similar findings,1/2 positive for gram cocci in pairs and chains and later positive for enterococci on 03/03. Infectious disease consulted for recommendations regarding bacteremia with unclear source. On 03/04, ID ordered another blood culture for further evaluation. Preliminary result for blood cultures have come back for no growth so far 03/06. Pt received his SINTIA on 03/06. Dentistry was consulted for dental abscess on 03/06. SINTIA was read, concerns for large abscess on the mitral valve, CTS following and recommends urgent MV surgery with approval from nephrology, cardiology, dental, and ID. Plan for multidisplinary rounds on 03/08, following dental surgery for approval of MV surgery. Per CTS and nephrology a VAS carotid duplex bilateral and renal ultrasound was conducted 03/08. Dental surgery performed 03/09. Cardiac Cath performed 03/10. Objective Temp: [97.8 ??F (36.6 ??C)-98.2 ??F (36.8 ??C)] 97.8 ??F (36.6 ??C) Pulse: [87-98] 88 Resp: [16-18] 18 BP: (132-145)/(89-101) 145/101 Weight change: Intake/Output Summary (Last 24 hours) at 03/13/2025 0744 Last data filed at 03/13/2025 0533 Gross per 24 hour Intake 720 ml Output 2450 ml Net -1730 ml Physical Exam: Gen: Alert, cooperative, in no acute distress HEENT: NC/AT, EOMI, no nasal drainage CV: Regular rate and rhythm. Lungs: Clear to auscultation bilaterally Abdomen: Soft, non-tender, non-distended Extremities: Nontender with normal ROM, no lower extremity edema Skin: Warm, dry Neuro: Alert and oriented to person, place, time, and situation Psych: Mood appropriate Scheduled Medications: Medications[1] PRN Medications: Medications[2] Continuous Infusions: Medications[3] Laboratory Data Recent Labs Component Name 03/13/25 0603 03/11/25 0606 03/10/25 0605 WBC 9.6 9.3 10.9* HGB 8.7* 8.6* 8.7* HCT 27.7* 27.5* 26.8* PLTCOUNT 423* 486* 502* MCV 87.1 87.3 87.3 Recent Labs Component Name 03/08/25 0505 PT 14.0 INR 1.1 Recent Labs Component Name 03/13/25 0603 03/11/25 0606 03/10/25 0605 NA 138 140 137 POTASSIUM 3.9 4.2 4.4 CL 106 111* 109* CO2 23 22 19* BUN 28* 35* 32* CREATININE 2.78* 2.97* 3.09* Recent Labs Component Name 03/13/25 0603 03/11/25 0606 03/10/25 06 CALCIUM 9.2 9.1 9.2 PHOS 3.7 3.9 4.4 Recent Labs Component Name 03/13/25 0603 03/11/25 0606 03/10/25 0605 PROT 7.4 7.3 7.7 ALB 3.0* 2.9* 3.0* ALKPHOS 120 123 127 AST 8 10 10 ALT <5* 5 7 TBILI 0.1* 0.2 0.2 No results for input(s): CKTOTAL, CKMBCK2, TROPONINI in the last 66046 hours. Recent Labs Component Name 03/03/25 0500 VANCORNDM 17.1 Microbiology Results (Displays last 21 days for this encounter ONLY) Procedure Component Value - Date/Time CULTURE BLOOD [[id number]] (Normal) Collected: 03/04/25 1109 Lab Status: Final result Specimen: Blood Peripheral Updated: 03/09/25 1330 Culture No growth day 5 CULTURE BLOOD [[id number]] (Normal) Collected: 03/04/25 1109 Lab Status: Final result Specimen: Blood Peripheral Updated: 03/09/25 1330 Culture No growth day 5 MRSA PCR [[id number]] (Normal) Collected: 03/02/25 0847 Lab Status: Final result Specimen: Microbiology from Nasal Updated: 03/02/25 1541 MRSA DNA by PCR Not detected Narrative: Methicillin-resistant Staphylococcus aureus (MRSA) DNA is not detected (presumed not colonized withMRSA). CULTURE BLOOD [[id number]] (Abnormal) Collected: 03/02/25532 Lab Status: Final result Specimen: Blood Peripheral Updated: 03/07/25 1038 Culture Growth of Enterococcus faecalis Gram Stain Gram-positive cocci pairs and chains Narrative: Positive at 28 Hours 19 Minutes Refer to previously reported susceptibility testing, specimen number:[id number] CULTURE BLOOD [[id number]] (Abnormal) (Susceptibility) Collected: 03/02/25532 Lab Status: Final result Specimen: Blood Peripheral Updated: 03/07/25 1038 Culture Growth of Enterococcus faecalis Gram Stain Gram-positive cocci pairs and chains Narrative: Positive at 22 Hours 44 Minutes Susceptibility Enterococcus faecalis (1) Antibiotic Interpretation Microscan Method Status Ampicillin Susceptible <=2 ug/mL LAVELLE Final Gentamicin 500 Susceptible SYN-S ug/mL LAVELLE Final Vancomycin Susceptible 2 ug/mL LAVELLE Final Susceptibility Comments Streptomycin Synergy susceptible predicts synergy between ampicillin, penicillin, or vancomycin plus streptomycin when isolates are susceptible to these agents. Combination therapy with ampicillin, penicillin or vancomycin(for susceptible strains) plus an aminoglycoside is usually indicated for serious enterococcal infections such as endocarditis, UNLESS high-level resistance to both gentamicin and streptomycin is documented. Gentamicin Synergy susceptible predicts synergy between ampicillin, penicillin, or vancomycin plus gentamicin when isolates are susceptible to these agents. Combination therapy with ampicillin, penicillin, or vancomycin (for susceptible strains) plus an aminoglycoside is usually indicated for serious enterococcal infections such as endocarditis UNLESS high-level resistance to both gentamicin and streptomycin is documented. Invasive enterococcal infections require combination therapy with susceptible agents. ID consultation is strongly recommended where available. BLOOD CULTURE ID PANEL [[id number]] (Abnormal) Collected: 03/02/25 0533 Lab Status: Final result Specimen: Blood Peripheral Updated: 03/03/25 1033 Enterococcus faecalis Detected Van A/B Vancomycin Resistance Not detected Comment: Results indicate vancomycin-susceptible Enterococcus faecalis. Nasir/B not detected. Narrative: Blood Culture ID Panel performed by [employer] multiplex PCR. The Test panel includes: Gram Positive Bacteria: Enterococcus faecalis, Enterococcus faecium, Listeria monocytogenes, Staphylococcus (genus), Staphylococcus aureus, Staphylococcus epidermidis, Staphylococcus lugdunensis, Streptococcus (genus), Streptococcus agalactiae (Group B), Streptococcus pneumoniae, Streptococcus pyogenes (Group A). Gram Negative Bacteria: Acinetobacter baumannii complex, Bacteroides fragilis, Haemophilus influenzae, Neisseria meningitidis (encapsulated), Pseudomonas aeruginosa, Stenotrophomonas maltophilia, Enterobacterales (formerly Enterobacteriaceae family), Enterobacter cloacae complex, Escherichia coli, K lebsiella (formerly Enterobacter) aerogenes, Klebsiella oxytoca, Klebsiella pneumoniae group, Proteus (genus), Salmonella species, Serratia marcescens. YEAST: Yesi albicans, Yesi auris, Yesi glabrata, Yesi krusei, Yesi parapsilosis, Yesi tropicalis, Cryptococcus neoformans/gattii. Antimicrobial Resistance Genes: CTX-M (extended-spectrum beta-lactamase), IMP (metallo beta-lactamase), KPC (carbapenemase), mcr-1 (colistin resistance determinant) mecA/C (methicillin-resistance), mecA/C and MREJ (methicillin- resistance - MRSA), NDM ([place] wolycgc-zjcd-lzhvdyurp), OXA-48-like ( oxacillinase beta-lactamase),Nasir/B (vancomycin-resistance), VIM (Dora Intergrom-Encoded [place]allo beta-lactamase). Imaging CT Chest Wo Contrast Result Date: 03/10/2025 Impression: 1.A few sub-5 mm nodules within bilateral upper lobes. No evidence of septic emboli. 2.Partially visualized 8.3 cm hypoattenuating area in the spleen, cannot be characterized on this noncontrast examination. Further evaluation with CT or MRI imaging recommended if clinically indicated. > Dictated by Nick Jay MD, (associate professor of radiology). > Dictated by Lighting Equipment Operator Jen Cason MD have personally reviewed and interpreted this examination/study. > Interpreting Provider: Jen Thomson MD on 03/10/2025 5:00 PM US Retroperitoneal Complete Result Date: 03/09/2025 IMPRESSION: 1.Hypoechoic structure within the right kidney measuring up to 1.1 cm without definite posterior enhancement. This may represent a complex cyst however a neoplastic process cannot be ruled out. Recommend cross-sectional imaging with the renal protocol for further evaluation. 2.There are2 nonobstructive renal calculi within the right kidney. There is a complex cyst within the right kidney. 3.No hydronephrosis bilaterally. 4.Complex anechoic structure within the spleen, may representa hematoma however cannot exclude other etiologies. Multiphase CT or MR imaging may be obtained forfurther evaluation if clinically indicated. > Dictated by Euncie Ramirez (associate professor of radiology). >Dictated by Eunice Ramirez 03/09/2025 11:07 AM > Dictated by Lighting Equipment Operator Jen Cason MD have personally reviewed and interpreted this examination/study. > Interpreting Provider: Jen Thomson MD on 03/09/2025 1:40 PM Relevant labs and imaging data reviewed on [facility]. Assessment and Plan Assessment & Plan Abscess of spleen Diverticulosis Enterococcal bacteremia Mitral valve vegetation (HCC) Endocarditis, suspected - SINTIA came back for large vegetation on mitral valve with severe mitral regurgitation. Per SINTIA, CTSrecommends multi team consult for approved recs to follow on surgery - 03/09 Dental surgery completed, 9 teeth were pulled. - Cardiology following, left cardiac cath performed 03/09 - Nephrology consulted, pt is safe to proceed with MV surgery - PT/OT 03/12 evaluated for CTS Pre-OP and signed off PLAN: - Ampicillin 2 g IV q8h per ID recs - Ceftriaxone 2 g IV q12h per ID recs - CTS scheduled surgery 03/15 - Incentive spirometry for prevention of pneumonia HTN (hypertension) - Home Rx: Metoprolol succinate 25 mg PO QHS, amlodipine 5 mg PO QD - BP stable, 119-126 systolic this AM PLAN: - Continue metoprolol succinate 25 - amLODIPine (Norvasc) tablet 5 mg COPD (chronic obstructive pulmonary disease) ([facility]) - Home meds include Trelegy, fluticasone propionate PLAN: - Incruse and symbicort while in-patient CKD (chronic kidney disease) stage 5, GFR less than 15 ml/min ([facility]) Cr-3.44-3.62 PLAN: - Avoid nephrotoxic agents and continue tight control of blood pressures MAP > 65 - Nephrology consulted, pt should proceed with cath and MV surgery - Start FeSo4 PO per nephrology - Daily RFP Diet: DIET REGULAR DVT Prophylaxis: Heparin Drip Code Status: Full Code [place] Candidate?: No Electronically Signed By: Dennis Delatorre MD 03/13/2025 7:44 AM [1] 0.9% NaCl 3 mL Intracatheter q8h amLODIPine 5 mg Oral QDAY ampicillin 2 g Intravenous q8h budesonide-formoterol 2 puff Inhalation BID And umeclidinium 1 puff Inhalation QDAY cefTRIAXone 2 g Intravenous q12h ferrous sulfate 325 mg Oral QDAY AFTER LUNCH heparin 5,000 Units Subcutaneous q8h melatonin 3 mg Oral AT BEDTIME metoprolol succinate XL 24hr 25 mg Oral AT BEDTIME montelukast 10 mg Oral AT BEDTIME pantoprazole EC 40 mg Oral QDAY polyethylene glycol 3350 17 g Oral QDAY senna 8.6 mg Oral QDAY [2] SALINE LOCK, INSERT AND MAINTAIN AND 0.9% NaCl AND 0.9% NaCl acetaminophen dextrose IV for hypoglycemia OR dextrose IV for hypoglycemia OR glucagon fluticasone propionate glucose (Diabetic Use) gel [3] Cosigned by Adalberto Arroyo MD at 03/13/2025 1:42 PM CDT Associated attestation - Adalberto Arroyo MD - 03/13/2025 1:42 PM CDT I have seen and examined the patient with the resident and I agree with the findings and plan of care as documented by the resident. In addition: -- awaiting OR Date of Service: 03/13/2025 Adalberto Arroyo MD * Ofelia Mckee, IRISH MOSS GATHERER-[employer]TER - 03/13/2025 7:37 AM CDT CARDIAC SURGERY Progress note Patient Name: Marshall Espinal Jr. : 1960 Private Siding Stapler: NA; PCP: Provider Unknown Referring Facility: [facility] Subjective: 64 year old male with past medical history for HTN, CKD w/ hx of nephrolithiasis and GERDwho presented from OSH for surgical evaluation of his mitral valve endocarditis. Patient developed fever/chills, left sided flank pain - CT abdomen/pelvix with concern for splenic abscess, BCx + who is being evaluated for E. Faecalis - echo w/ MV vegetation 1x1.2cm w/ mild MR - transfer to [facility]. Patient is now afebrile, WBC stable at 11, Cr. Elevated at 3 (unclear baseline). Cardiology consulted for SINTIA. Patient reports night sweats and fevers on and off for months, prompting him to stop drinking. He was drinking vodka every day prior to 6 months ago.He developed a kidney stone one month JIG FITTER, he had no prior knowledge of kidney issues prior to developing the kidney stone. 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 His left sided pain began shortly after that occurrence. 03/07/25: Pt resting, not in distress. VSS. Disciplinary meeting tomorrow determine surgery time line; ID/nephrology/cardiology/CTS. SINTIA completed. Dentist following; recommendations tooth/teeth extraction prior to surgery. Patient aware of SELWYN on CKD and high risk of HD after surgery. 03/08/25: Pt tearful today, concerned about and after care. Will discuss timing of tooth extraction with dentist. OR possible next week after [facility] 03/09/25: 9 teeth extracted 03/10/25: In laborer tan house this am for [facility]. No acute events overnight 03/11/25: Patient resting in bed, no acute events overnight. LHC results noted. 03/12/25: Patient resting in bed, no acute events overnight. 03/13/25: No acute events overnight. Pt walking the halls independently. Reports back pain from stiffness... not like the back pain that brought me in here. I need to get out of bed more Cardiothoracic High Risk Variables CHRONIC KIDNEY DISEASE CKD stage 4 and CKD Stage 5 Mitral valve Endocarditis Periodontal disease Splenic abscess H/o Diverticulosis COPD Were these Present on Admission? Yes Patient Active Problem List Diagnosis Date Noted CKD (chronic kidney disease) stage 5, GFR less than 15 ml/min ([facility]) 03/04/2025 Priority: Not Prioritized Enterococcal bacteremia 03/03/2025 Priority: Not Prioritized Mitral valve vegetation ([facility]) 03/03/2025 Priority: Not Prioritized COPD (chronic obstructive pulmonary disease) ([facility]) 03/03/2025 Priority: Not Prioritized Endocarditis, suspected 03/03/2025 Priority: Not Prioritized Diverticulosis 03/02/2025 Priority: Not Prioritized HTN (hypertension) 03/01/2025 Priority: Not Prioritized Abscess of spleen 02/28/2025 Priority: Not Prioritized Past Medical History[1] Past Surgical History[2] Medications[3] Allergies[4] Social History Tobacco Use Smoking status: Former Current packs/day: 0.00 Types: Cigarettes Quit date: 02/1971 Years since quittin.1 Smokeless tobacco: Never Substance Use Topics Alcohol use: Not Currently Alcohol/week: 2.0 - 3.0 standard drinks of alcohol Types: 2 - 3 Alcoholic drink(s) per week Comment: last drink was roughly 6 months ago Family History[5] Objective: BP (!) 145/101 (BP Location: Left arm) Pulse 88 Temp 97.8 ??F (36.6 ??C) (Oral) Resp 18 Ht 1.702 m (5' 7.01) Wt 81 kg (178 lb 8 oz) SpO2 98% General appearance: alert, cooperative, no distress Lungs: breath sounds normal and symmetric; no rales or wheezes Heart: regular rhythm, normal S1 and S2, grade 3/6 systolic murmur at the LSB radiating to the axillia Abdomen: soft without mass, non-tender, with normal bowel sounds Extremities: no clubbing, cyanosis or edema Data ReviewCBC: Recent Labs Component Name 03/13/25 0603 03/11/25 0606 03/10/25 0605 WBC 9.6 9.3 10.9* HGB 8.7* 8.6* 8.7* HCT 27.7* 27.5* 26.8* PLTCOUNT 423* 486* 502* BMP: Recent Labs Component Name 03/13/25 0603 03/11/25 0606 03/10/25 0605 POTASSIUM 3.9 4.2 4.4 CO2 23 22 19* BUN 28* 35* 32* CREATININE 2.78* 2.97* 3.09* GLUCOSE 95 96 125* CALCIUM 9.[address] abdomen pelvis W/O contrast: Impression Impression: 1. Large 1.6 cm obstructing stone in the right renal pelvis. Mild to moderate right hydronephrosis.Numerous additional nonobstructing right renal calculi. 2. Mild diffuse urinary bladder wall thickening. Correlate with urinalysis to exclude cystitis. 3. Bibasilar pulmonary nodules measuring up to 5 mm. Per Fleischner guidelines, if the patient is considered high risk for lung cancer, an optional follow-up CT chest can be obtained in 12 months. Ifthe patient is considered low risk, no specific follow-up is required. ECHO: 03/02/25 Summary * The left ventricle is normal in size, with normal systolic function and an estimated ejection fraction of 64 % by biplane method of disks. Left ventricular wall motion is normal. * The left ventricular diastolic function is normal. * The mitral valve is displaying restricted posterior leaflet motion with calcification. There is an echodensity 10 mm x 12 mm attached to the anterior mitral leaflet, possible differential includes vegetation, torn chordae. Need to correlate clinically and SINTIA if clinical suspicion of endocarditis. * There is mild tricuspid valve regurgitation. * There is mild mitral valve regurgitation. * The pulmonary artery systolic pressure is normal, 27 mmHg. LHC: 40% narrowing in mid LAD. Overall, nonobstructive CAD. Left dominant circulation Right radial artery access, hemostasis by TR band. Panorex 03/02/25 MPRESSION: Lucencies within the right mandibular presumed location of absent of the molar and premolar teeth. Recommend dental consultation. The report was drafted by Ofe Aponte MD (president finance company) 03/04/2025 8:30 AM. > Dictated by Lighting Equipment Operator SINTIA Summary * There is a 1.16 cm x 0.78 cm mobile vegetation attached to the atrial surface of the anterior mitral valve leaflet tip (around the A2/A3 scallop tip). * There is moderate to severe mitral valve regurgitation with a very eccentric posterior jet that originates at the site of the vegetation. Mitral valve regurgitant volume is 30 ml regurgitant fraction is calculated 33%. 3-D ERO area is 0.36 cm2. Vena contracta width (2D) 0.42 cm. 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 * Agitated saline contrast study at rest and with Valsalva is negative for a shunt. * Normal left ventricular systolic function. Visually estimated LV EF is 55-60%. * Right ventricular systolic function is grossly normal. Panorex 03/04/25 FINDINGS: Multiple dental restorations are identified, and numerous teeth are absent. There are scattered dental caries. No acute mandibular fracture is identified. Both temporomandibular joints are intact. Lucencies within the right mandibular presumed location of absent of the molar and premolar teeth. IMPRESSION: Lucencies within the right mandibular presumed location of absent of the molar and premolar teeth. Recommend dental consultation. The report was drafted by Ofe Aponte MD (president finance company) 03/04/2025 8:30 AM. Carotid US completed 03/07/25 There is less than 50% stenosis of bilateral internal carotid arteries. Bilateral vertebral flow isantegrade. Renal US, completed 03/09 -IMPRESSION: 1.Hypoechoic structure within the right kidney measuring up to 1.1 cm without definite posterior enhancement. This may represent a complex cyst however a neoplastic process cannot be ruled out. Recommend cross-sectional imaging with the renal protocol for further evaluation. 2.There are 2 nonobstructive renal calculi within the right kidney. There is a complex cyst within the right kidney. 3.No hydronephrosis bilaterally. 4.Complex anechoic structure within the spleen, may represent a hematoma however cannot exclude other etiologies. Multiphase CT or MR imaging may be obtained for further evaluation if clinically indicated. CT Chest: -No CI to aortic manipulation 1.A few sub-5 mm nodules within bilateral upper lobes. No evidence of septic emboli. 2.Partially visualized 8.3 cm hypoattenuating area in the spleen, cannot be characterized on this noncontrast examination. Further evaluation with CT or MRI imaging recommended if clinically indicated. Will defer further work up of above CT findings to primary team Assessment and Plan: Patient with no acute changes overnight. In good spirits. DIAGNOSIS: Patient is a 64 year old male with past medical history for HTN, CKD w/ hx of nephrolithiasis, (obstructive, s/p stents), anemia of chronic, COPD, periodontal disease, and GERD who presented from OSH for surgical evaluation of his mitral valve endocarditis. Echo w/ MV vegetation 1x1.2cm w/ mild MR - transfer to [facility]. Patient is now afebrile, WBC stable at 11, Cr. Elevated at 3 (unclear baseline) upon admit. Surgery scheduled with Dr. Hernandez on 03/15/25 MV endocarditis E. Faecalis -SINTIA 03/07 with moderate to severe eccentric MR, posterior leaflet with restriction, mobile vegetation on the anterior leaflet - Splenic infarct - Abx ampicillin and ceftriaxone, ID managing. - Bcs from 03/04 NGTD - Last positive BC 03/02 Periodontal disease - mult teeth extracted 03/09 - reports mouth as sore but able to eat H/o obstructive renal calculi requiring intervention/stents - Renal US 03/09 reveals 2 nonobstructive renal calculi within the right kidney CKD stage 4 - Will likely need HD post surgery. - HD line to be placed in OR. - Nephrology following Testing pending: Repeat UA today- positive protein/glucose, no leuks, LE or bacteria Reviewed what to expect pre/post OR including but not limited to lines, tubes, ICU protocols, extubation, and glucose monitoring. Pt verbalized understanding. Ofelia Mckee APRN-GREENS PLANTER 03/13/2025 7:37 AM [1] Past Medical History: Diagnosis Date CKD (chronic kidney disease) COPD (chronic obstructive pulmonary disease) (HCC) GERD (gastroesophageal reflux disease) HTN (hypertension) Nephrolithiasis Obstructive uropathy [2] Past Surgical History: Procedure Laterality Date CYSTOSCOPY cystoscopy with ureteral stent placement ORAL SURGERY N/A 03/09/2025 N/A; EXTRACTION DENTAL (MULTIPLE) Retinal Detachment Repair Bilateral [3] Medications Prior to Admission Medication Sig Dispense Refill amLODIPine (Norvasc) 5 MG tablet Take 1 (one) tablet by mouth once daily metoprolol succinate XL 24hr (Toprol XL) 25 MG tablet Take 1 (one) tablet by mouth once daily montelukast (Singulair) 10 MG tablet Take 1 (one) tablet by mouth at bedtime omeprazole (PriLOSEC) 40 MG capsule Take 1 (one) capsule by mouth daily before breakfast [4] No Known Allergies [5] Family History Problem Relation Name Age of Onset COPD - Chronic Obstructive Pulmonary Disease Mother Renal Disease Father Cosigned by Rahul Hernandez MD at 03/22/2025 3:19 PM CDT Associated attestation - Rahul Hernandez MD - 03/22/2025 3:19 PM CDT I have reviewed the patient's medical record; I have seen and examined the patient with the TIFFANIE. I have discussed and directed the medical management /treatment and performed decision making for the patient's medical condition and take responsibility for management risk pertaining to this patient. I agree with the findings and plan of care as documented by the TIFFANIE. Rahul Hernandez MD. * Sanket Wood - 03/13/2025 6:26 AM CDT Images from the original note were not included. [facility] Internal Medicine Progress Note Name: Marshall Espinal Jr. Room/Bed: [facility]/ : 1960 65 year old PCP: Provider Unknown Admit Date/Time: 03/01/2025 9:44 PM LOS: 12 Subjective Interval update: NAOE. VSS. Pt is endorsing continued back pain, unchanged from admission. PT/OT evaluated and signed off yesterday. Nephro cleared for CTS. Pt started on FeSo4 yesterday. Pt denies any chest pain, coughing, dizziness, light headedness. He denies any hematuria or melena at this time. Hospital course: Mr. Marshall Espinal is a 64 yo M with PMHx of HTN, CKD, COPD w h/o nephrolithiasis who presented to OSH due to 2 weeks of left sided flank pain admitted 03/01 for evaluation/management of identified mitral valve vegetation and splenia abscess in the setting of suspected endocarditis. At the OSH, CT Ab d/pelvis order that showed complex, cystic lesion of the inferior left spleen and diverticulosis. Pt was transferred to [facility] for transition of care on 03/01. In the ED, pt was started on empiric vancomycin and zosyn. On 03/02, TTE was ordered for concerns of IE. TTE showed mild mitral regurgitation and 10 x 12 mm echodensity of anterior mitral valve leaflet. Blood cultures collected in the ED and OSH grew gram positive organisms and enterococcus faecalis on 03/03. On 03/03 ID, CTS, and ACS were consulted. Per blood results, ID switched patient antibiotics to ampicillin and ceftriaxone. Per CTS, aTEE is scheduled for 03/06 for follow up and further management of care. CTS also ordered a Panorex for potential work up of dental abscess on 03/03 but was found to be unremarkable. ACS was consulted for concerns of splenic abscess but recommend against splenic drainage and signed off. On 03/04, ID ordered another blood culture for further evaluation. Preliminary result for blood cultures have comeback for no growth so far 03/06. Pt received his SINTIA on 03/06. Dentistry was consulted for dental absc ess on 03/06. SINTIA was read, concerns for large abscess on the mitral valve, CTS following and recommends urgent MV surgery with approval from nephrology, cardiology, dental, and ID. Per CTS and nephrology a VAS carotid duplex bilateral completed 03/09. Dental surgery performed 03/09. Cardiac Cath performed 03/10. CT chest Wo contrast performed 03/10. Objective Temp: [97.8 ??F (36.6 ??C)-98.2 ??F (36.8 ??C)] 98.1 ??F (36.7 ??C) Pulse: [84-98] 93 Resp: [16-18] 18 BP: (132-140)/(89-97) 132/90 Weight change: Intake/Output Summary (Last 24 hours) at 03/13/2025625 Last data filed at 03/12/20252051 Gross per 24 hour Intake 720 ml Output 1350 ml Net -630 ml Physical Exam: Physical Exam Constitutional: Appearance: Normal appearance. He is normal weight. HENT: Head: Normocephalic and atraumatic. Eyes: Extraocular Movements: Extraocular movements intact. Conjunctiva/sclera: Conjunctivae normal. Cardiovascular: Rate and Rhythm: Normal rate and regular rhythm. Pulses: Normal pulses. Heart sounds: Murmur heard. Pulmonary: Effort: Pulmonary effort is normal. Breath sounds: Normal breath sounds. Abdominal: General: Abdomen is flat. Bowel sounds are normal. Palpations: Abdomen is soft. Musculoskeletal: General: Normal range of motion. Cervical back: Normal range of motion and neck supple. Skin: General: Skin is warm and dry. Neurological: General: No focal deficit present. Mental Status: He is alert and oriented to person, place, and time. Psychiatric: Mood and Affect: Mood normal. Behavior: Behavior normal. Thought Content: Thought content normal. Judgment: Judgment normal. Scheduled Medications: Medications[1] PRN Medications: Medications[2] Continuous Infusions: Medications[3] Laboratory Data Recent Labs Component Name 03/11/25 0606 03/10/25 0605 03/09/25 0446 WBC 9.3 10.9* 11.0* HGB 8.6* 8.7* 8.9* HCT 27.5* 26.8* 29.0* PLTCOUNT 486* 502* 548* MCV 87.3 87.3 89.2 Recent Labs Component Name 03/08/25 0505 PT 14.0 INR 1.1 Recent Labs Component Name 03/11/25 0606 03/10/25 0605 03/09/25 0445 NA 140 137 137 POTASSIUM 4.2 4.4 4.1 CL 111* 109* 109* CO2 22 19* 20* BUN 35* 32* 35* CREATININE 2.97* 3.09* 3.18* Recent Labs Component Name 03/11/25 0606 03/10/25 0605 03/09/25 0445 CALCIUM 9.1 9.2 9.1 PHOS 3.9 4.4 4.3 Recent Labs Component Name 03/11/25 0606 03/10/25 0605 03/09/25 0445 PROT 7.3 7.7 7.8 ALB 2.9* 3.0* 3.0* ALKPHOS 123 127 141 AST 10 10 13 ALT 5 7 8 TBILI 0.2 0.2 0.1* No results for input(s): CKTOTAL, CKMBCK2, TROPONINI in the last 02841 hours. Recent Labs Component Name 03/03/25 0500 VANCORNDM 17.1 Microbiology Results (Displays last 21 days for this encounter ONLY) Procedure Component Value - Date/Time CULTURE BLOOD [[id number]] (Normal) Collected: 03/04/25 110 Lab Status: Final result Specimen: Blood Peripheral Updated: 03/09/25 1330 Culture No growth day 5 CULTURE BLOOD [[id number]] (Normal) Collected: 03/04/25 110 Lab Status: Final result Specimen: Blood Peripheral Updated: 03/09/25 1330 Culture No growth day 5 MRSA PCR [[id number]] (Normal) Collected: 03/02/25 0847 Lab Status: Final result Specimen: Microbiology from Nasal Updated: 03/02/25 1541 MRSA DNA by PCR Not detected Narrative: Methicillin-resistant Staphylococcus aureus (MRSA) DNA is not detected (presumed not colonized withMRSA). CULTURE BLOOD [[id number]] (Abnormal) Collected: 03/02/25532 Lab Status: Final result Specimen: Blood Peripheral Updated: 03/07/25 1038 Culture Growth of Enterococcus faecalis Gram Stain Gram-positive cocci pairs and chains Narrative: Positive at 28 Hours 19 Minutes Refer to previously reported susceptibility testing, specimen number:[id number] CULTURE BLOOD [[id number]] (Abnormal) (Susceptibility) Collected: 03/02/25532 Lab Status: Final result Specimen: Blood Peripheral Updated: 03/07/25 1038 Culture Growth of Enterococcus faecalis Gram Stain Gram-positive cocci pairs and chains Narrative: Positive at 22 Hours 44 Minutes Susceptibility Enterococcus faecalis (1) Antibiotic Interpretation Microscan Method Status Ampicillin Susceptible <=2 ug/mL LAVELLE Final Gentamicin 500 Susceptible SYN-S ug/mL LAVELLE Final Vancomycin Susceptible 2 ug/mL LAVELLE Final Susceptibility Comments Streptomycin Synergy susceptible predicts synergy between ampicillin, penicillin, or vancomycin plus streptomycin when isolates are susceptible to these agents. Combination therapy with ampicillin, penicillin or vancomycin(for susceptible strains) plus an aminoglycoside is usually indicated for serious enterococcal infections such as endocarditis, UNLESS high-level resistance to both gentamicin and streptomycin is documented. Gentamicin Synergy susceptible predicts synergy between ampicillin, penicillin, or vancomycin plus gentamicin when isolates are susceptible to these agents. Combination therapy with ampicillin, penicillin, or vancomycin (for susceptible strains) plus an aminoglycoside is usually indicated for serious enterococcal infections such as endocarditis UNLESS high-level resistance to both gentamicin and streptomycin is documented. Invasive enterococcal infections require combination therapy with susceptible agents. ID consultation is strongly recommended where available. BLOOD CULTURE ID PANEL [[id number]] (Abnormal) Collected: 03/02/25 0533 Lab Status: Final result Specimen: Blood Peripheral Updated: 03/03/25 1033 Enterococcus faecalis Detected Van A/B Vancomycin Resistance Not detected Comment: Results indicate vancomycin-susceptible Enterococcus faecalis. Nasir/B not detected. Narrative: Blood Culture ID Panel performed by [employer] multiplex PCR. The Test panel includes: Gram Positive Bacteria: Enterococcus faecalis, Enterococcus faecium, Listeria monocytogenes, Staphylococcus (genus), Staphylococcus aureus, Staphylococcus epidermidis, Staphylococcus lugdunensis, Streptococcus (genus), Streptococcus agalactiae (Group B), Streptococcus pneumoniae, Streptococcus pyogenes (Group A). Gram Negative Bacteria: Acinetobacter baumannii complex, Bacteroides fragilis, Haemophilus influenzae, Neisseria meningitidis (encapsulated), Pseudomonas aeruginosa, Stenotrophomonas maltophilia, Enterobacterales (formerly Enterobacteriaceae family), Enterobacter cloacae complex, Escherichia coli, K lebsiella (formerly Enterobacter) aerogenes, Klebsiella oxytoca, Klebsiella pneumoniae group, Proteus (genus), Salmonella species, Serratia marcescens. YEAST: Yesi albicans, Yesi auris, Yesi glabrata, Yesi krusei, Yesi parapsilosis, Yesi tropicalis, Cryptococcus neoformans/gattii. Antimicrobial Resistance Genes: CTX-M (extended-spectrum beta-lactamase), IMP ([place]allo beta-lactamase), KPC (carbapenemase), mcr-1 (colistin resistance determinant) mecA/C (methicillin-resistance), mecA/C and MREJ (methicillin- resistance - MRSA), NDM ([place] qxfnzun-itnk-ugtxljuof), OXA-48-like ( oxacillinase beta-lactamase),Nasir/B (vancomycin-resistance), VIM (Sangeeta Intergrom-Encoded [place] beta-lactamase). Imaging CT Chest Wo Contrast Result Date: 03/10/2025 Impression: 1.A few sub-5 mm nodules within bilateral upper lobes. No evidence of septic emboli. 2.Partially visualized 8.3 cm hypoattenuating area in the spleen, cannot be characterized on this noncontrast examination. Further evaluation with CT or MRI imaging recommended if clinically indicated. > Dictated by Nick Jay MD, (associate professor of radiology). > Dictated by Lighting Equipment Operator IJen MD have personally reviewed and interpreted this examination/study. > Interpreting Provider: Jen Thomson MD on 03/10/2025 5:00 PM Relevant labs and imaging data reviewed on [facility]. Assessment and Plan Abscess of spleen (POA: Yes) HTN (hypertension) (POA: Yes) Diverticulosis (POA: Yes) Enterococcal bacteremia (POA: Yes) Mitral valve vegetation (HCC) (POA: Yes) COPD (chronic obstructive pulmonary disease) (HCC) (POA: Yes) Endocarditis, suspected (POA: Yes) CKD (chronic kidney disease) stage 5, GFR less than 15 ml/min (HCC) (POA: Yes) Assessment & Plan Marshall Espinal is a 64 yo M with PMHx of HTN, CKD, COPD w h/o nephrolithiasis who presented to OSH for 2 weeks of left sided flank pain admitted 03/01 for evaluation/management of identified mitral valve vegetation and splenia abscess in the setting of suspected endocarditis. #Abscess of spleen #Diverticulosis #Enterococcal bacteremia #Mitral valve vegetation (HCC) #Endocarditis, suspected - CT Abd/Pelvis, OSH (02/28/25): New 8.1 x 5.2 x 5.1 cm relatively low- attentuation likely complex cystic lesion in the inferior spleen. -This has developed since 12/05/2024 arguing against neoplasm and favring either subacute hematoma or abscess in the appropriate clinical setting. - WBCs downtrending 13-> 9.3 - IR consulted for possible abscess, low suspicion of abscess based on imaging appearance. No indication for drainage at this time, Imaging finding likely splenic hematoma vs cyst - UA with no concern for infection so no reflex to culture - MRSA negative - 03/02 enterococcus faecalis detected , last positive blood cx - 03/02 TTE revealed an echodensity 10 mm x 12 mm attached to the anterior mitral leaflet, possibledifferential includes vegetation, torn chordae. - Denies any IVDU, other drug use - IR consulted for abscess: No indication for drainage at this time; if patient clinically worsens,could consider MRI w/ contrast but not currently indicated - ACS consulted but low suspicion of abscess, given TTE results suggesting more secondary to infectious endocarditis - 03/06 SINTIA came back for large vegetation on mitral valve with severe mitral regurgitation. Per SINTIA, CTS recommends multi team consult for approved recs to follow on surgery - Repeated Blood Cultures ordered, no growth on preliminary results - 03/09 Dental surgery completed, 9 teeth were pulled. - 03/09 left cardiac cath demonstrates 40% narrowing of mid LAD - Nephrology consulted, pt is safe to proceed with MV surgery - PT/OT cleared pt for MV surgery PLAN: - Continue ampicillin q8hrs and ceftriaxone q12hrs IV 2g per ID recs - CTS MV surgery scheduled 03/15 - continue incentive spirometry for prevention of pneumonia - repeat CMP, CBC qdaily - repeat UA prior to 03/15 per surgery recommendations #HTN (hypertension) - 140s/100s, VSS PLAN: - Continue po metoprolol succinate 25mg and amLODIPine (Norvasc) tablet 5 mg #COPD (chronic obstructive pulmonary disease) ([facility]) - Home meds include Trelegy, fluticasone propionate PLAN: - Incruse and symbicort while in-patient #CKD (chronic kidney disease) stage 5, GFR less than 15 ml/min ([facility]) Cr-3.3>2.97>2.78 downtrending - US retroperitoneal 03/09; 2 nonobstructive renal calculi within the right kidney, Hypoechoic structure within the right kidney measuring up to 1.1 cm without definite posterior enhancement PLAN: - continue FeSo4 for hemoglobin synthesis - avoid nephrotoxic agents and continue tight control of blood pressures - nephrology following Hospital Acquired Infection Risk Review: This patient does not have active central lines at this time. Incidental findings requiring follow up: -na Diet: DIET REGULAR DVT Prophylaxis: Lovenox (DVT Prophylaxis Dose) Code Status: Full Code Shen Candidate?: No Electronically Signed By: Sanket Wood 03/13/2025 6:26 AM The above assessment and plan will be discussed with attending physician. This note is not final until attested by the attending physician. [1] 0.9% NaCl 3 mL Intracatheter q8h amLODIPine 5 mg Oral QDAY ampicillin 2 g Intravenous q8h budesonide-formoterol 2 puff Inhalation BID And umeclidinium 1 puff Inhalation QDAY cefTRIAXone 2 g Intravenous q12h ferrous sulfate 325 mg Oral QDAY AFTER LUNCH heparin 5,000 Units Subcutaneous q8h melatonin 3 mg Oral AT BEDTIME metoprolol succinate XL 24hr 25 mg Oral AT BEDTIME montelukast 10 mg Oral AT BEDTIME pantoprazole EC 40 mg Oral QDAY polyethylene glycol 3350 17 g Oral QDAY senna 8.6 mg Oral QDAY [2] SALINE LOCK, INSERT AND MAINTAIN AND 0.9% NaCl AND 0.9% NaCl acetaminophen dextrose IV for hypoglycemia OR dextrose IV for hypoglycemia OR glucagon fluticasone propionate glucose (Diabetic Use) gel [3] Cosigned by Adalberto Arroyo MD at 03/13/2025 11:58 AM CDT Associated attestation - Adalberto Arroyo MD - 03/13/2025 11:58 AM CDT This note is for educational purpose only, please see attestation associated with resident note. Adalberto Arroyo MD 03/13/2025 11:58 AM * Arnulfo Page RN - 03/13/2025 1:54 AM CDT Problem: Pain/Discomfort Goal: Patient exhibits reduced pain/discomfort as evidenced by pain scores Outcome: Progressing Goal: Patient uses pharmacological and non-pharmacological pain management strategies. Outcome: Progressing Goal: Patient verbalizes acceptable level of pain relief and ability to engage in desired activity. Outcome: Progressing Problem: Medication Adherence Goal: Consistently take medications as prescribed Outcome: Progressing Problem: Neurosensory - Adult Goal: Achieves stable or improved neurological status Description: INTERVENTIONS Outcome: Progressing Goal: Remains free of injury related to seizures activity Description: INTERVENTIONS: Outcome: Progressing Goal: Achieves maximal functionality and self care Description: INTERVENTIONS: Outcome: Progressing Problem: Respiratory - Adult Goal: Achieves optimal ventilation and oxygenation Description: INTERVENTIONS: Outcome: Progressing Problem: Cardiovascular - Adult Goal: Maintains optimal cardiac output and hemodynamic stability Description: INTERVENTIONS: Outcome: Progressing Goal: Absence of cardiac dysrhythmias or at baseline Description: INTERVENTIONS: Outcome: Progressing Problem: Skin/Tissue Integrity - Adult Goal: Skin integrity remains intact Description: INTERVENTIONS: Outcome: Progressing Goal: Incisions, wounds, or drain sites healing without S/S of infection Description: INFECTIONS: Outcome: Progressing Goal: Oral mucous membranes remain intact Description: INTERVENTIONS: Outcome: Progressing Problem: Neurovascular Musculoskeletal - Adult Goal: Return mobility to safest level of function Description: INTERVENTIONS: Outcome: Progressing Goal: Maintain proper alignment of affected body part Description: INTERVENTIONS: Outcome: Progressing Goal: Return ADL status to a safe level of function Description: INTERVENTIONS: Outcome: Progressing Goal: Absence or reduction of edema Description: INTERVENTIONS Outcome: Progressing Goal: Maintains or improves tissue perfusion Description: INTERVENTIONS Outcome: Progressing Problem: Gastrointestinal - Adult Goal: Minimal or absence of nausea and vomiting Description: INTERVENTIONS: Outcome: Progressing Goal: Maintains or returns to baseline bowel function Description: INTERVENTIONS: Outcome: Progressing Goal: Maintains adequate nutritional intake Description: INTERVENTIONS: Outcome: Progressing Problem: Genitourinary - Adult Goal: Maintains or returns to baseline genitourinary function Description: INTERVENTIONS: Outcome: Progressing Goal: Urinary catheter remains patent Description: INTERVENTIONS: Outcome: Progressing Problem: Infection - Adult Goal: Infections are decreased or avoided Description: INTERVENTIONS: Outcome: Progressing Problem: Metabolic/Fluid and Electrolytes - Adult Goal: Electrolytes maintained within normal limits Description: INTERVENTIONS: Outcome: Progressing Goal: Hemodynamic stability and optimal renal function maintained Description: INTERVENTIONS: Outcome: Progressing Goal: Glucose maintained within prescribed range Description: INTERVENTIONS: Outcome: Progressing Problem: Hematologic - Adult Goal: Maintains hematologic stability Description: INTERVENTIONS: Outcome: Progressing Problem: Fall Risk Goal: Fall risk and fall related injury risk are minimized (interventions related to the fall risk can be found in the flowsheet documentation) Outcome: Progressing * Claire Boone RN - 03/12/2025 5:02 PM CDT Problem: Pain/Discomfort Goal: Patient exhibits reduced pain/discomfort as evidenced by pain scores Outcome: Progressing Goal: Patient uses pharmacological and non-pharmacological pain management strategies. Outcome: Progressing Goal: Patient verbalizes acceptable level of pain relief and ability to engage in desired activity. Outcome: Progressing Problem: Medication Adherence Goal: Consistently take medications as prescribed Outcome: Progressing Problem: Neurosensory - Adult Goal: Achieves stable or improved neurological status Description: INTERVENTIONS Outcome: Progressing Goal: Remains free of injury related to seizures activity Description: INTERVENTIONS: Outcome: Progressing Goal: Achieves maximal functionality and self care Description: INTERVENTIONS: Outcome: Progressing Problem: Respiratory - Adult Goal: Achieves optimal ventilation and oxygenation Description: INTERVENTIONS: Outcome: Progressing Problem: Cardiovascular - Adult Goal: Maintains optimal cardiac output and hemodynamic stability Description: INTERVENTIONS: Outcome: Progressing Goal: Absence of cardiac dysrhythmias or at baseline Description: INTERVENTIONS: Outcome: Progressing Problem: Skin/Tissue Integrity - Adult Goal: Skin integrity remains intact Description: INTERVENTIONS: Outcome: Progressing Goal: Incisions, wounds, or drain sites healing without S/S of infection Description: INFECTIONS: Outcome: Progressing Goal: Oral mucous membranes remain intact Description: INTERVENTIONS: Outcome: Progressing Problem: Neurovascular Musculoskeletal - Adult Goal: Return mobility to safest level of function Description: INTERVENTIONS: Outcome: Progressing Goal: Maintain proper alignment of affected body part Description: INTERVENTIONS: Outcome: Progressing Goal: Return ADL status to a safe level of function Description: INTERVENTIONS: Outcome: Progressing Goal: Absence or reduction of edema Description: INTERVENTIONS Outcome: Progressing Goal: Maintains or improves tissue perfusion Description: INTERVENTIONS Outcome: Progressing Problem: Gastrointestinal - Adult Goal: Minimal or absence of nausea and vomiting Description: INTERVENTIONS: Outcome: Progressing Goal: Maintains or returns to baseline bowel function Description: INTERVENTIONS: Outcome: Progressing Goal: Maintains adequate nutritional intake Description: INTERVENTIONS: Outcome: Progressing Problem: Genitourinary - Adult Goal: Maintains or returns to baseline genitourinary function Description: INTERVENTIONS: Outcome: Progressing Goal: Urinary catheter remains patent Description: INTERVENTIONS: Outcome: Progressing Problem: Infection - Adult Goal: Infections are decreased or avoided Description: INTERVENTIONS: Outcome: Progressing Problem: Metabolic/Fluid and Electrolytes - Adult Goal: Electrolytes maintained within normal limits Description: INTERVENTIONS: Outcome: Progressing Goal: Hemodynamic stability and optimal renal function maintained Description: INTERVENTIONS: Outcome: Progressing Goal: Glucose maintained within prescribed range Description: INTERVENTIONS: Outcome: Progressing Problem: Hematologic - Adult Goal: Maintains hematologic stability Description: INTERVENTIONS: Outcome: Progressing Problem: Fall Risk Goal: Fall risk and fall related injury risk are minimized (interventions related to the fall risk can be found in the flowsheet documentation) Outcome: Progressing * Genia Conti OT - 03/12/2025 2:57 PM CDT [facility] Department of Physical Medicine & Rehabilitation Progress Note Patient: Marshall Espinal Jr. Med Record Number: [id number] Date of : 1960 Age: [age] year old OT orders received. Chart reviewed. Per discussion with PT, patient independent and without skilledOT needs at this time. Will d/c from OT. Please re-consult if skilled needs arise. * Geraldine Enciso, PT - 03/12/2025 2:15 PM CDT [facility] Physical Medicine and Rehabilitation Physical Therapy Pre-Op Initial Evaluation Note Patient: Marshall Espinal Jr. Med Record Number: [id number] Date of : 1960 Age: [age] year old PPE worn by staff: mask - procedural;gloves PPE worn by patient: socks - clean;gown - patient, clean Tech: none Recommendations: Discharge Discharge Equipment Recommendations: None PT Discharge Recommendations: Patient may return home without the need for ongoing skilled therapy services post-hospitalization (pre-op eval) Recommended Transportation Method: Private Car Acute PT Needs Addressed and adequate for discharge from hospital: Yes In addition to the 1:1 evaluation of the patient, additional eval time was spent completing the chart review prior to the assessment, completing the multidisciplinary plan of care and education plan post evaluation and communicating results of the eval to other treatment team members. Patient currently using no assistive device. Occupational Therapist contacted regarding patient status and/or discharge plan. Physician Orders: Evaluation and Treat CTS pre-op eval PRECAUTIONS: Weight Bearing Status: (no restriction) Activity Level: Activity as Tolerated DIAGNOSIS: Problem List[1] Past Medical History[2] SUBJECTIVE: Subjective: I walk 30 mins daily. Pt states he will have surgery on Wed but not sure of details yet. PATIENT GOALS / WHAT MATTERS MOST TO THE PATIENT: Patient's Primary Concern: be able to go home after surgery Home Situation: Type of Residence: Private Residence Living arrangement: Spouse/Significant Other Steps to Enter: 1 Home Structure: One Story Equipment at Home: None Prior Level of Functioning: Prior Level of Function Mobility: Ambulate-In Community;Independent;Without Assistive Device Fallen Within 6 Mos: No Have Help at Home?: Yes, there is help at home now Who assists you at home?: Friends/Family Oxygen at Home: No Activity at Home: Active;Driving Pain Assessment: Pain Assessment Pain Scale/Observation: No/denies pain OBJECTIVE: At start of therapy session, patient found in bed and with no alarm. General Appearance: in no distress on room air LDAs: Floor: IVs: Peripheral line Edema: no edema noted in bilateral lower extremities Vitals: (*Assess the 3 levels of oxygen saturations both for room air and 02 unless rest on room air is 88% or less). Ex/Gait/Activity Without 02 BP: 142/87 (103) HR: 108 Sp02 98 Room Air Observations: denies dizziness, pain, SOB or fatigue, peak activity Mental Status/Cognition: Level of Consciousness-Adult: Responds to voice (alert, O x 4) Cognition: (intact) Attention Span: Appears intact Memory: Appears intact Following Commands: Follows all commands and directions without difficulty Safety Judgement: Good awareness of safety precautions RLE Assessment: RLE Assessment AROM - Right Lower Extremity: Within Functional Limits Strength - Right Lower Extremity: Within Functional Limits Tone - Right Lower Extremity: Within Normal Limits Sensation - Right Lower Extremity: Within Normal Limits LLE Assessment: LLE Assessment AROM - Left Lower Extremity: Within Functional Limits Strength - Left Lower Extremity: Within Functional Limits Tone - Left Lower Extremity: Within Normal Limits Sensation - Left Lower Extremity: Within Normal Limits Mobility: A gait belt and non-slip socks were used for all out of bed activity this date. Bed Mobility: Rolling: Complete Ramona Supine to Sit: Complete Ramona with HOB flat Sit to Supine: Complete Ramona Transfers: Sit to Stand: Complete Ramona Stand to Sit: Complete Ramona Chair to Bed: Complete Ramona Bed to Chair: Complete Ramona Gait: Weight Bearing Status: (no restriction) Distance Ambulated (ft): 1550 FEET Ambulation: Assistive Device: None Ambulation: Level of Assistance: Complete Ramona Ambulation: Gait Deviations: (WNL with no symptom reported) Six Minute Walk Test Summary Number of Laps Walked: 15.5 Laps (03/12/25 1430) Total Distance Walked (Feet) in 6 Minutes: 1550 Feet (03/12/25 1430) Total Distance Walked (Meters): 472.56 Meters (03/12/25 1430) Miles per hour (mph): 2.94 mph (03/12/25 1430) METS: 3.25 (03/12/25 1430) 6 Minute Walk Distance Norms: 1876 Feet (03/12/25 1430) Percent Of Functional Impairment: 17.38 % (03/12/25 1430) Balance: Balance Scales/Tests Used: Sitting: Static/Dynamic;Standing: Static/Dynamic Sitting - Static: Good Sitting - Dynamic: Good Standing - Static: Good Standing - Dynamic: Good ACTIVITY TOLERANCE: Good, denies SOB or fatigue with standing activity TREATMENT/INTERVENTIONS: evaluation, monitoring of vitals, and HEP, pt education Access Code: [email or web address] URL: [email or web address] Date: 03/12/2025 Prepared by: Geraldine Enciso Program Notes Keep exercise level between 3-4 RPE. Good rule of thumb is that exercise is a little challenging, but you can maintain a conversation while doing it. Make sure you don't hold your breath during exercises. Exercises - Seated Gluteal Sets - 1 x daily - 7 x weekly - 3 sets - 10 reps - 3-5 seconds hold - Seated March - 1 x daily - 7 x weekly - 3 sets - 10 reps - Seated Long Arc Quad - 1 x daily - 7 x weekly - 3 sets - 10 reps - Seated Hip Adduction Isometrics with Ball - 1 x daily - 7 x weekly - 3 sets - 10 reps - 3-5 seconds hold - Seated Hip Abduction - 1 x daily - 7 x weekly - 3 sets - 10 reps - Seated Heel Raise - 1 x daily - 7 x weekly - 3 sets - 10 reps AM-PAC 6 Clicks Mobility Raw Score:: 24 EDUCATION: While performing PT, Patient was instructed in:functional mobility training, safety awareness/fall precautions , home exercise program, cardiac education, use of call light, exercise/activity guidelines within 3-4 RPE on modified SUSAN scale Presented to patient who demonstrates Good understanding of instructions given. INFORMED CONSENT TO TREATMENT: Plan of care including recommended therapy, goals and frequency, discussed with patient who understands and agrees to proceed. ASSESSMENT: Patient benefited from Physical Therapy achieving the following functional goals to enhance independence. Short Term Goals: Goal Formation With patient Patient will ambulate >400 feet independently - MET Patient will perform home exercise program independently - MET Patient will demonstrate and/or verbalize appropriate precautions to maximize patient function - MET Precision Assembly Inspector Goal(s): None identified, see STG Met above. Equipment Issued: HEP handout Plan: Pt was seen one time for evaluation, education and HEP. No further CTS pre-op PT needs at this time. Discharge IP PT. Following therapy session, patient left in bed, with call light within reach, all lines/tubes intact, needs in reach. [1] Patient Active Problem List: Abscess of spleen HTN (hypertension) Diverticulosis Enterococcal bacteremia Mitral valve vegetation (HCC) COPD (chronic obstructive pulmonary disease) (HCC) Endocarditis, suspected CKD (chronic kidney disease) stage 5, GFR less than 15 ml/min (HCC) [2] Past Medical History: Diagnosis Date CKD (chronic kidney disease) COPD (chronic obstructive pulmonary disease) (HCC) GERD (gastroesophageal reflux disease) HTN (hypertension) Nephrolithiasis Obstructive uropathy * Amaris Brennan PA-C - 03/12/2025 10:38 AM CDT CARDIAC SURGERY Progress note Patient Name: Marshall Espinal Jr. 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 Patient developed fever/chills, left sided flank pain - CT abdomen/pelvix with concern for splenic abscess, BCx + who is being evaluated for E. Faecalis - echo w/ MV vegetation 1x1.2cm w/ mild MR - [facility] to [facility]. Patient is now afebrile, WBC stable at 11, Cr. Elevated at 3 (unclear baseline). Cardiology consulted for SINTIA. Patient reports night sweats and fevers on and off for months, prompting him to stop drinking. He was drinking vodka every day prior to 6 months ago.He developed a kidney stone one month JIG FITTER, he had no prior knowledge of kidney issues prior to developing the kidney stone. 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 His left sided pain began shortly after that occurrence. 03/07/25: Pt resting, not in distress. VSS. Disciplinary meeting tomorrow determine surgery time line; ID/nephrology/cardiology/CTS. SINTIA completed. Dentist following; recommendations tooth/teeth extraction prior to surgery. Patient aware of SELWYN on CKD and high risk of HD after surgery. 03/08/25: Pt tearful today, concerned about and after care. Will discuss timing of tooth extraction with dentist. 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 No acute events overnight 03/11/25: Patient resting in bed, no acute events overnight. LHC results noted. 03/12/25: Patient resting in bed, no acute events overnight. Cardiothoracic High Risk Variables CHRONIC KIDNEY DISEASE CKD stage 4 and CKD Stage 5 Mitral valve Endocarditis Periodontal disease Splenic abscess H/o Diverticulosis COPD Were these Present on Admission? Yes Patient Active Problem List Diagnosis Date Noted CKD (chronic kidney disease) stage 5, GFR less than 15 ml/min ([facility]) 03/04/2025 Priority: Not Prioritized Enterococcal bacteremia 03/03/2025 Priority: Not Prioritized Mitral valve vegetation ([facility]) 03/03/2025 Priority: Not Prioritized COPD (chronic obstructive pulmonary disease) ([facility]) 03/03/2025 Priority: Not Prioritized Endocarditis, suspected 03/03/2025 Priority: Not Prioritized Diverticulosis 03/02/2025 Priority: Not Prioritized HTN (hypertension) 03/01/2025 Priority: Not Prioritized Abscess of spleen 02/28/2025 Priority: Not Prioritized Past Medical History[1] Past Surgical History[2] Medications[3] Allergies[4] Social History Tobacco Use Smoking status: Former Current packs/day: 0.00 Types: Cigarettes Quit date: 02/1971 Years since quittin.1 Smokeless tobacco: Never Substance Use Topics Alcohol use: Not Currently Alcohol/week: 2.0 - 3.0 standard drinks of alcohol Types: 2 - 3 Alcoholic drink(s) per week Comment: last drink was roughly 6 months ago Family History[5] Objective: BP 139/96 (BP Location: Right arm, Patient Position: Lying) Pulse 84 Temp 98.1 ??F (36.7 ??C) (Oral) Resp 16 Ht 1.702 m (5' 7) Wt 81 kg (178 lb 8 oz) SpO2 99% General appearance: alert, cooperative, no distress Lungs: breath sounds normal and symmetric; no rales or wheezes Heart: regular rhythm, normal S1 and S2, grade 3/6 systolic murmur at the LSB radiating to the axillia Abdomen: soft without mass, non-tender, with normal bowel sounds Extremities: no clubbing, cyanosis or edema Data ReviewCBC: Recent Labs Component Name 03/11/25 0606 03/10/25 0605 03/09/25 0446 WBC 9.3 10.9* 11.0* HGB 8.6* 8.7* 8.9* HCT 27.5* 26.8* 29.0* PLTCOUNT 486* 502* 548* BMP: Recent Labs Component Name 03/11/25 0606 03/10/25 0605 03/09/25 0445 POTASSIUM 4.2 4.4 4.1 CO2 22 19* 20* BUN 35* 32* 35* CREATININE 2.97* 3.09* 3.18* GLUCOSE 96 125* [address] abdomen pelvis W/O contrast: Impression Impression: 1. Large 1.6 cm obstructing stone in the right renal pelvis. Mild to moderate right hydronephrosis.Numerous additional nonobstructing right renal calculi. 2. Mild diffuse urinary bladder wall thickening. Correlate with urinalysis to exclude cystitis. 3. Bibasilar pulmonary nodules measuring up to 5 mm. Per Fleischner guidelines, if the patient is considered high risk for lung cancer, an optional follow-up CT chest can be obtained in 12 months. Ifthe patient is considered low risk, no specific follow-up is required. ECHO: 03/02/25 Summary * The left ventricle is normal in size, with normal systolic function and an estimated ejection fraction of 64 % by biplane method of disks. Left ventricular wall motion is normal. * The left ventricular diastolic function is normal. * The mitral valve is displaying restricted posterior leaflet motion with calcification. There is an echodensity 10 mm x 12 mm attached to the anterior mitral leaflet, possible differential includes vegetation, torn chordae. Need to correlate clinically and SINTIA if clinical suspicion of endocarditis. * There is mild tricuspid valve regurgitation. * There is mild mitral valve regurgitation. * The pulmonary artery systolic pressure is normal, 27 mmHg. LHC: 40% narrowing in mid LAD. Overall, nonobstructive CAD. Left dominant circulation Right radial artery access, hemostasis by TR band. Panorex 03/02/25 MPRESSION: Lucencies within the right mandibular presumed location of absent of the molar and premolar teeth. Recommend dental consultation. The report was drafted by Ofe Aponte MD (president finance company) 03/04/2025 8:30 AM. > Dictated by Lighting Equipment Operator SINTIA Summary * There is a 1.16 cm x 0.78 cm mobile vegetation attached to the atrial surface of the anterior mitral valve leaflet tip (around the A2/A3 scallop tip). * There is moderate to severe mitral valve regurgitation with a very eccentric posterior jet that originates at the site of the vegetation. Mitral valve regurgitant volume is 30 ml regurgitant fraction is calculated 33%. 3-D ERO area is 0.36 cm2. Vena contracta width (2D) 0.42 cm. 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 * Agitated saline contrast study at rest and with Valsalva is negative for a shunt. * Normal left ventricular systolic function. Visually estimated LV EF is 55-60%. * Right ventricular systolic function is grossly normal. Panorex 03/04/25 FINDINGS: Multiple dental restorations are identified, and numerous teeth are absent. There are scattered dental caries. No acute mandibular fracture is identified. Both temporomandibular joints are intact. Lucencies within the right mandibular presumed location of absent of the molar and premolar teeth. IMPRESSION: Lucencies within the right mandibular presumed location of absent of the molar and premolar teeth. Recommend dental consultation. The report was drafted by Ofe Aponte MD (president finance company) 03/04/2025 8:30 AM. Carotid US completed 03/07/25 There is less than 50% stenosis of bilateral internal carotid arteries. Bilateral vertebral flow isantegrade. Renal US, completed 03/09 -IMPRESSION: 1.Hypoechoic structure within the right kidney measuring up to 1.1 cm without definite posterior enhancement. This may represent a complex cyst however a neoplastic process cannot be ruled out. Recommend cross-sectional imaging with the renal protocol for further evaluation. 2.There are 2 nonobstructive renal calculi within the right kidney. There is a complex cyst within the right kidney. 3.No hydronephrosis bilaterally. 4.Complex anechoic structure within the spleen, may represent a hematoma however cannot exclude other etiologies. Multiphase CT or MR imaging may be obtained for further evaluation if clinically indicated. CT Chest: -No CI to aortic manipulation 1.A few sub-5 mm nodules within bilateral upper lobes. No evidence of septic emboli. 2.Partially visualized 8.3 cm hypoattenuating area in the spleen, cannot be characterized on this noncontrast examination. Further evaluation with CT or MRI imaging recommended if clinically indicated. Will defer further work up of above CT findings to primary team Assessment and Plan: Patient with no acute changes overnight. In good spirits. DIAGNOSIS: Patient is a 64 year old male with past medical history for HTN, CKD w/ hx of nephrolithiasis, (obstructive, s/p stents), anemia of chronic, COPD, periodontal disease, and GERD who presented from OSH for surgical evaluation of his mitral valve endocarditis. Echo w/ MV vegetation 1x1.2cm w/ mild MR - transfer to [facility]. Patient is now afebrile, WBC stable at 11, Cr. Elevated at 3 (unclear baseline) upon admit. Surgery scheduled with Dr. Hernandez on 03/15/25 MV endocarditis E. Faecalis -SINTIA 03/07 with moderate to severe eccentric MR, posterior leaflet with restriction, mobile vegetation on the anterior leaflet - Splenic infarct - Abx ampicillin and ceftriaxone, ID managing. - Bcs from 03/04 NGTD - Last positive BC 8/14 Periodontal disease - mult teeth extracted 03/09 - denies pain, currently H/o obstructive renal calculi requiring intervention/stents - Renal US 03/09 reveals 2 nonobstructive renal calculi within the right kidney CKD stage 4 - Will likely need HD post surgery. - HD line to be placed in OR. - Nephrology following Testing pending: Repeat UA early next week. Amaris Brennan PA-C 03/12/2025 10:38 AM [1] Past Medical History: Diagnosis Date CKD (chronic kidney disease) COPD (chronic obstructive pulmonary disease) (HCC) GERD (gastroesophageal reflux disease) HTN (hypertension) Nephrolithiasis Obstructive uropathy [2] Past Surgical History: Procedure Laterality Date CYSTOSCOPY cystoscopy with ureteral stent placement ORAL SURGERY N/A 03/09/2025 N/A; EXTRACTION DENTAL (MULTIPLE) Retinal Detachment Repair Bilateral [3] Medications Prior to Admission Medication Sig Dispense Refill amLODIPine (Norvasc) 5 MG tablet Take 1 (one) tablet by mouth once daily metoprolol succinate XL 24hr (Toprol XL) 25 MG tablet Take 1 (one) tablet by mouth once daily montelukast (Singulair) 10 MG tablet Take 1 (one) tablet by mouth at bedtime omeprazole (PriLOSEC) 40 MG capsule Take 1 (one) capsule by mouth daily before breakfast [4] No Known Allergies [5] Family History Problem Relation Name Age of Onset COPD - Chronic Obstructive Pulmonary Disease Mother Renal Disease Father Cosigned by Rahul Hernandez MD at 03/22/2025 3:19 PM CDT Associated attestation - Rahul Hernandez MD - 03/22/2025 3:19 PM CDT I have reviewed the patient's medical record; I have seen and examined the patient with the TIFFANIE. I have discussed and directed the medical management /treatment and performed decision making for the patient's medical condition and take responsibility for management risk pertaining to this patient. I agree with the findings and plan of care as documented by the TIFFANIE. Rahul Hernandez MD. * Sanket Wood - 03/12/2025 8:08 AM CDT Images from the original note were not included. [facility] Internal Medicine Progress Note Name: Marshall Espinal Jr. Room/Bed: [facility] : 1960 65 year old PCP: Provider Unknown Admit Date/Time: 03/01/2025 9:44 PM LOS: 11 Subjective Interval update: NAOE. VSS and no acute distress. Pt sitting upright in bed on interview. Pt denies any new onset ofsymptoms. Pt endorses continued left flank pain with palpation. Hospital course: Mr. Marshall Espinal is a 64 yo M with PMHx of HTN, CKD, COPD w h/o nephrolithiasis who presented to OSH for 2 weeks of left sided flank pain. At the OSH, CT Abd/pelvis order that showed complex, cystic lesion of the inferior left spleen and diverticulosis. Pt was transferred to [facility] for transition of care on 03/01. In the ED, pt was started on empiric vancomycin and zosyn. On 03/02, TTE was ordered for concerns of IE. TTE showed mild mitral regurgitation and 10 x 12 mm echodensity of anterior mitral valve leaflet. Blood cultures collected in the ED and OSH grew gram positive organisms and enterococcus faecalis on 03/03. On 03/03 ID, CTS, and ACS were consulted. Per blood results, ID switched patient antibiotics to ampicillin and ceftriaxone. Per CTS, a SINTIA is scheduled for 03/06 for follow up and further management of care. CTS also ordered a Panorex for potential work up of dental abscess on03/03 but was found to be unremarkable. ACS was consulted for concerns of splenic abscess but recommend against splenic drainage and signed off. On 03/04, ID ordered another blood culture for further evaluation. Preliminary result for blood cultures have come back for no growth so far 03/06. Pt received his SINTIA on 03/06. Dentistry was consulted for dental abscess on 03/06. SINTIA was read, concerns for large abscess on the mitral valve, CTS following and recommends urgent MV surgery with approval from nephrology, cardiology, dental, and ID. Per CTS and nephrology a VAS carotid duplex bilateral completed 03/09. Dental surgery performed 03/09. Cardiac Cath performed 03/10. CT chest Wo contrast performed03/10. Objective Temp: [97.7 ??F (36.5 ??C)-98.3 ??F (36.8 ??C)] 98.1 ??F (36.7 ??C) Pulse: [83-106] 84 Resp: [16-18] 16 BP: (130-139)/(80-101) 139/96 Weight change: Intake/Output Summary (Last 24 hours) at 03/12/2025 0809 Last data filed at 03/11/20252009 Gross per 24 hour Intake 1120 ml Output 1750 ml Net -630 ml Physical Exam: Physical Exam Constitutional: Appearance: Normal appearance. He is normal weight. HENT: Head: Normocephalic and atraumatic. Eyes: Extraocular Movements: Extraocular movements intact. Conjunctiva/sclera: Conjunctivae normal. Cardiovascular: Rate and Rhythm: Normal rate and regular rhythm. Pulses: Normal pulses. Heart sounds: Murmur heard. Pulmonary: Effort: Pulmonary effort is normal. Breath sounds: Normal breath sounds. Abdominal: General: Abdomen is flat. Bowel sounds are normal. Palpations: Abdomen is soft. Musculoskeletal: General: Normal range of motion. Cervical back: Normal range of motion and neck supple. Neurological: General: No focal deficit present. Mental Status: He is alert and oriented to person, place, and time. Mental status is at baseline. Psychiatric: Mood and Affect: Mood normal. Behavior: Behavior normal. Thought Content: Thought content normal. Judgment: Judgment normal. Scheduled Medications: Medications[1] PRN Medications: Medications[2] Continuous Infusions: Medications[3] Laboratory Data Recent Labs Component Name 03/11/25 0606 03/10/25 0605 03/09/25 0446 WBC 9.3 10.9* 11.0* HGB 8.6* 8.7* 8.9* HCT 27.5* 26.8* 29.0* PLTCOUNT 486* 502* 548* MCV 87.3 87.3 89.2 Recent Labs Component Name 03/08/25 0505 PT 14.0 INR 1.1 Recent Labs Component Name 03/11/25 0606 03/10/25 0605 03/09/25 0445 NA 140 137 137 POTASSIUM 4.2 4.4 4.1 CL 111* 109* 109* CO2 22 19* 20* BUN 35* 32* 35* CREATININE 2.97* 3.09* 3.18* Recent Labs Component Name 03/11/25 0606 03/10/25 0605 03/09/25 0445 CALCIUM 9.1 9.2 9.1 PHOS 3.9 4.4 4.3 Recent Labs Component Name 03/11/25 0606 03/10/25 0605 03/09/25 0445 PROT 7.3 7.7 7.8 ALB 2.9* 3.0* 3.0* ALKPHOS 123 127 141 AST 10 10 13 ALT 5 7 8 TBILI 0.2 0.2 0.1* No results for input(s): CKTOTAL, CKMBCK2, TROPONINI in the last 86641 hours. Recent Labs Component Name 03/03/25 0500 VANCORNDM 17.1 Microbiology Results (Displays last 21 days for this encounter ONLY) Procedure Component Value - Date/Time CULTURE BLOOD [[id number]] (Normal) Collected: 03/04/25 1109 Lab Status: Final result Specimen: Blood Peripheral Updated: 03/09/25 1330 Culture No growth day 5 CULTURE BLOOD [[id number]] (Normal) Collected: 03/04/25 110 Lab Status: Final result Specimen: Blood Peripheral Updated: 03/09/25 1330 Culture No growth day 5 MRSA PCR [[id number]] (Normal) Collected: 03/02/25 0847 Lab Status: Final result Specimen: Microbiology from Nasal Updated: 03/02/25 1541 MRSA DNA by PCR Not detected Narrative: Methicillin-resistant Staphylococcus aureus (MRSA) DNA is not detected (presumed not colonized withMRSA). CULTURE BLOOD [[id number]] (Abnormal) Collected: 03/02/25 0533 Lab Status: Final result Specimen: Blood Peripheral Updated: 03/07/25 1038 Culture Growth of Enterococcus faecalis Gram Stain Gram-positive cocci pairs and chains Narrative: Positive at 28 Hours 19 Minutes Refer to previously reported susceptibility testing, specimen number:[id number] CULTURE BLOOD [[id number]] (Abnormal) (Susceptibility) Collected: 03/02/2533 Lab Status: Final result Specimen: Blood Peripheral Updated: 03/07/25 1038 Culture Growth of Enterococcus faecalis Gram Stain Gram-positive cocci pairs and chains Narrative: Positive at 22 Hours 44 Minutes Susceptibility Enterococcus faecalis (1) Antibiotic Interpretation Microscan Method Status Ampicillin Susceptible <=2 ug/mL LAVELLE Final Gentamicin 500 Susceptible SYN-S ug/mL LAVELLE Final Vancomycin Susceptible 2 ug/mL LAVELLE Final Susceptibility Comments Streptomycin Synergy susceptible predicts synergy between ampicillin, penicillin, or vancomycin plus streptomycin when isolates are susceptible to these agents. Combination therapy with ampicillin, penicillin or vancomycin(for susceptible strains) plus an aminoglycoside is usually indicated for serious enterococcal infections such as endocarditis, UNLESS high-level resistance to both gentamicin and streptomycin is documented. Gentamicin Synergy susceptible predicts synergy between ampicillin, penicillin, or vancomycin plus gentamicin when isolates are susceptible to these agents. Combination therapy with ampicillin, penicillin, or vancomycin (for susceptible strains) plus an aminoglycoside is usually indicated for serious enterococcal infections such as endocarditis UNLESS high-level resistance to both gentamicin and streptomycin is documented. Invasive enterococcal infections require combination therapy with susceptible agents. ID consultation is strongly recommended where available. BLOOD CULTURE ID PANEL [[id number]] (Abnormal) Collected: 03/02/25 0533 Lab Status: Final result Specimen: Blood Peripheral Updated: 03/03/25 1033 Enterococcus faecalis Detected Van A/B Vancomycin Resistance Not detected Comment: Results indicate vancomycin-susceptible Enterococcus faecalis. Nasir/B not detected. Narrative: Blood Culture ID Panel performed by [employer] multiplex PCR. The Test panel includes: Gram Positive Bacteria: Enterococcus faecalis, Enterococcus faecium, Listeria monocytogenes, Staphylococcus (genus), Staphylococcus aureus, Staphylococcus epidermidis, Staphylococcus lugdunensis, Streptococcus (genus), Streptococcus agalactiae (Group B), Streptococcus pneumoniae, Streptococcus pyogenes (Group A). Gram Negative Bacteria: Acinetobacter baumannii complex, Bacteroides fragilis, Haemophilus influenzae, Neisseria meningitidis (encapsulated), Pseudomonas aeruginosa, Stenotrophomonas maltophilia, Enterobacterales (formerly Enterobacteriaceae family), Enterobacter cloacae complex, Escherichia coli, K lebsiella (formerly Enterobacter) aerogenes, Klebsiella oxytoca, Klebsiella pneumoniae group, Proteus (genus), Salmonella species, Serratia marcescens. YEAST: Yesi albicans, Yesi auris, Yesi glabrata, Yesi krusei, Yesi parapsilosis, Yesi tropicalis, Cryptococcus neoformans/gattii. Antimicrobial Resistance Genes: CTX-M (extended-spectrum beta-lactamase), IMP ([place] beta-lactamase), KPC (carbapenemase), mcr-1 (colistin resistance determinant) mecA/C (methicillin-resistance), mecA/C and MREJ (methicillin- resistance - MRSA), NDM ([place] mgxjfjr-afuh-rzknajqku), OXA-48-like ( oxacillinase beta-lactamase),Nasir/B (vancomycin-resistance), VIM (Dora Intergrom-Encoded [place] beta-lactamase). Imaging CT Chest Wo Contrast Result Date: 03/10/2025 Impression: 1.A few sub-5 mm nodules within bilateral upper lobes. No evidence of septic emboli. 2.Partially visualized 8.3 cm hypoattenuating area in the spleen, cannot be characterized on this noncontrast examination. Further evaluation with CT or MRI imaging recommended if clinically indicated. > Dictated by Nick Jay MD, (associate professor of radiology). > Dictated by Lighting Equipment Operator Jen Cason MD have personally reviewed and interpreted this examination/study. > Interpreting Provider: Jen Thomson MD on 03/10/2025 5:00 PM US Retroperitoneal Complete Result Date: 03/09/2025 IMPRESSION: 1.Hypoechoic structure within the right kidney measuring up to 1.1 cm without definite posterior enhancement. This may represent a complex cyst however a neoplastic process cannot be ruled out. Recommend cross-sectional imaging with the renal protocol for further evaluation. 2.There are2 nonobstructive renal calculi within the right kidney. There is a complex cyst within the right kidney. 3.No hydronephrosis bilaterally. 4.Complex anechoic structure within the spleen, may representa hematoma however cannot exclude other etiologies. Multiphase CT or MR imaging may be obtained forfurther evaluation if clinically indicated. > Dictated by Eunice Ramirez (associate professor of radiology). >Dictated by Eunice Ramirez 03/09/2025 11:07 AM > Dictated by Lighting Equipment Operator IJen MD have personally reviewed and interpreted this examination/study. > Interpreting Provider: Jen Thomson MD on 03/09/2025 1:40 PM Relevant labs and imaging data reviewed on [facility]. Assessment and Plan Abscess of spleen (POA: Yes) HTN (hypertension) (POA: Yes) Diverticulosis (POA: Yes) Enterococcal bacteremia (POA: Yes) Mitral valve vegetation (HCC) (POA: Yes) COPD (chronic obstructive pulmonary disease) (HCC) (POA: Yes) Endocarditis, suspected (POA: Yes) CKD (chronic kidney disease) stage 5, GFR less than 15 ml/min (HCC) (POA: Yes) Assessment & Plan #Abscess of spleen #Diverticulosis #Enterococcal bacteremia #Mitral valve vegetation (HCC) #Endocarditis, suspected #Leukocytosis - CT Abd/Pelvis, OSH (02/28/25): New 8.1 x 5.2 x 5.1 cm relatively low- attentuation likely complex cystic lesion in the inferior spleen. -This has developed since 12/05/2024 arguing against neoplasm and favring either subacute hematoma or abscess in the appropriate clinical setting. - WBCs downtrending 13-> 9.3 - IR consulted for possible abscess, low suspicion of abscess based on imaging appearance. No indication for drainage at this time, Imaging finding likely splenic hematoma vs cyst - UA with no concern for infection so no reflex to culture - MRSA negative - 03/02 enterococcus faecalis detected , last positive blood cx - 03/02 TTE revealed an echodensity 10 mm x 12 mm attached to the anterior mitral leaflet, possibledifferential includes vegetation, torn chordae. - Denies any IVDU, other drug use - IR consulted for abscess: No indication for drainage at this time; if patient clinically worsens,could consider MRI w/ contrast but not currently indicated - ACS consulted but low suspicion of abscess, given TTE results suggesting more secondary to infectious endocarditis - 03/06 SINTIA came back for large vegetation on mitral valve with severe mitral regurgitation. Per SINTIA, CTS recommends multi team consult for approved recs to follow on surgery - Repeated Blood Cultures ordered, no growth on preliminary results - 03/09 Dental surgery completed, 9 teeth were pulled. - 03/09 left cardiac cath demonstrates 40% narrowing of mid LAD - Nephrology consulted, pt is safe to proceed with MV surgery PLAN: - Continue ampicillin and ceftriaxone per ID recs - CTS MV surgery scheduled 03/15 - continue incentive spirometry for prevention of pneumonia - PT/OT consulted for CTS Pre-OP evaluation - repeat CMP, CBC q48 hours #HTN (hypertension) - 130s/90s, VSS PLAN: - Continue po metoprolol succinate 25mg and amLODIPine (Norvasc) tablet 5 mg #COPD (chronic obstructive pulmonary disease) ([facility]) - Home meds include Trelegy, fluticasone propionate PLAN: - Incruse and symbicort while in-patient #CKD (chronic kidney disease) stage 5, GFR less than 15 ml/min ([facility]) Cr-3.3>2.07 downtrending - US retroperitoneal 03/09; 2 nonobstructive renal calculi within the right kidney, Hypoechoic structure within the right kidney measuring up to 1.1 cm without definite posterior enhancement PLAN: - avoid nephrotoxic agents and continue tight control of blood pressures - nephrology following Hospital Acquired Infection Risk Review: This patient does not have active central lines at this time. Incidental findings requiring follow up: NA Diet: DIET REGULAR DVT Prophylaxis: Lovenox (DVT Prophylaxis Dose) Code Status: Full Code Shen Candidate?: No Electronically Signed By: Sanket Wood 03/12/2025 8:09 AM The above assessment and plan will be discussed with attending physician. This note is not final until attested by the attending physician. [1] 0.9% NaCl 3 mL Intracatheter q8h amLODIPine 5 mg Oral QDAY ampicillin 2 g Intravenous q8h budesonide-formoterol 2 puff Inhalation BID And umeclidinium 1 puff Inhalation QDAY cefTRIAXone 2 g Intravenous q12h heparin 5,000 Units Subcutaneous q8h melatonin 3 mg Oral AT BEDTIME metoprolol succinate XL 24hr 25 mg Oral AT BEDTIME montelukast 10 mg Oral AT BEDTIME pantoprazole EC 40 mg Oral QDAY polyethylene glycol 3350 17 g Oral QDAY senna 8.6 mg Oral QDAY [2] SALINE LOCK, INSERT AND MAINTAIN AND 0.9% NaCl AND 0.9% NaCl acetaminophen dextrose IV for hypoglycemia OR dextrose IV for hypoglycemia OR glucagon fluticasone propionate glucose (Diabetic Use) gel [3] Cosigned by Adalberto Arroyo MD at 03/12/2025 11:16 AM CDT Associated attestation - Adalberto Arroyo MD - 03/12/2025 11:16 AM CDT This note is for educational purpose only, please see attestation associated with resident note. Adalberto Arroyo MD 03/12/2025 11:16 AM * Gerry Brambila MD - 03/12/2025 8:02 AM CDT Images from the original note were not included. [facility] Nephrology Consult Note Date of Admission: 03/01/2025 Date of Service: 03/12/2025 Consulting Service: Green Team Reason for Consult: Chronic Kidney Disease Brief Hospital Course: Marshall Espinal Jr. is a 65 year old male w/ PMH significant for HTN, COPD CKD stage 4,recurrent nephrolithiasis who presented to [facility] on 03/04/25 as transfer from OSH ([facility]) for splenic abscess intervention. Patient had CT imaging for abdominal pain and found to have splenic abscess for which patient was transferred to [facility] for IR intervention. On admission to [facility] patient seen by IR with evaluation that drainage was not indicated. Patient had TTE on 03/02/25 with finsings of anterior mitral leaflet echodensisity which was confirmed on SINTIA as vegetation. Blood cultures OSH revealed 1/2 cultures positive stain for gram positive cocci. Repeat blood cultures collected at [facility] revealed similar findings, 1/2 positive for gram cocci in pairs and chains and later positive for enterococci on 03/03. Infectious disease consulted for recommendations regarding bacteremia. Cardiac surgery consulted for management of endocarditis. Nephrology consulted for management of CKD and perioperative recommendations pending possible cardiac surgery intervention for endocarditis. Baseline creatinine is unknown. Patient has had creatininearound 3 since admission. Per chart review creatinine was as high as 10.4 in February 2024 admission for hyperkalemia and acute renal failure decrease to 4.47 prior to discharge. Noted at that time to have right sided hydronephrosis for which patient had cystoscopy with bilateral ureteral stents since then. No interim creatinine since that February 2024 admission. Nephrology consulted this admission for recommendations on renal function with regards to surgical planning for intervention on mitral vegetation. Interval History: - LHC done on 03/10 - CTS scheduled surgery 03/15 - Stable renal panel. Past Medical History[1] Past Surgical History[2] Family History[3] Social History: Social History Socioeconomic History Marital status: Spouse name: Not on file Number of children: Not on file Years of education: Not on file Highest education level: Not on file Occupational History Not on file Tobacco Use Smoking status: Former Current packs/day: 0.00 Types: Cigarettes Quit date: 02/1971 Years since quittin.0 Smokeless tobacco: Never Vaping Use Vaping status: Never Used Substance and Sexual Activity Alcohol use: Not Currently Alcohol/week: 2.0 - 3.0 standard drinks of alcohol Types: 2 - 3 Alcoholic drink(s) per week Comment: last drink was roughly 6 months ago Drug use: Never Sexual activity: Yes Other Topics Concern Not on file Social History Narrative Not on file Social Drivers of Health Financial Resource Strain: Low Risk (03/01/2025) Overall Financial Resource Strain (CARDIA) Difficulty of Paying Living Expenses: Not hard at all Food Insecurity: No Food Insecurity (03/01/2025) Hunger Vital Sign Worried About Running Out of Food in the Last Year: Never true Ran Out of Food in the Last Year: Never true Transportation Needs: No Transportation Needs (03/01/2025) PRAPARE - Transportation Lack of Transportation (Medical): No Lack of Transportation (Non-Medical): No Stress: No Stress Concern Present (03/01/2025) Citizen Of [place] of Occupational Health - Occupational Stress Questionnaire Feeling of Stress : Not at all Housing Stability: Unknown (03/01/2025) Housing Stability Vital Sign Unable to Pay for Housing in the Last Year: No Number of Times Moved in the Last Year: Not on file Homeless in the Last Year: No Allergies: Allergies[4] Home Medications: Medications Ordered Prior to Encounter[5] Hospital Medications: Medications[6] Medications[7] Physical Exam: BP 139/96 (BP Location: Right arm, Patient Position: Lying) Pulse 92 Temp 98.1 ??F (36.7 ??C) (Oral) Resp 18 Ht 1.702 m (5' 7) Wt 81 kg (178 lb 8 oz) SpO2 100% Intake/Output Summary (Last 24 hours) at 03/10/2025 0815 Last data filed at 03/10/2025 0530 Gross per 24 hour Intake 500 ml Output 1750 ml Net -1250 ml Physical Exam Constitutional: Appearance: Normal appearance. HENT: Head: Normocephalic and atraumatic. Mouth/Throat: Comments: Poor dentition Cardiovascular: Rate and Rhythm: Normal rate and regular rhythm. Heart sounds: No murmur heard. Pulmonary: Effort: Pulmonary effort is normal. No respiratory distress. Breath sounds: Normal breath sounds. No stridor. No wheezing. Musculoskeletal: Right lower leg: No edema. Neurological: General: No focal deficit present. Mental Status: He is alert and oriented to person, place, and time. LABS: Recent Labs Component Name 03/10/25 0605 03/09/25 0445 03/08/25 0506 NA 137 137 136 POTASSIUM 4.4 4.1 4.1 CL 109* 109* 107 CO2 19* 20* 20* BUN 32* 35* 32* CREATININE 3.09* 3.18* 3.25* Recent Labs Component Name 03/10/25 0605 03/09/25 0445 03/08/25 0506 CALCIUM 9.2 9.1 9.6 PHOS 4.4 4.3 4.2 ALB 3.0* 3.0* 3.2* Recent Labs Component Name 03/08/25 0506 03/08/25 0505 PTHINTACT - 80.3* [id number] 39.0 - Recent Labs Component Name 03/10/25 0605 03/09/25 0446 03/08/25 0505 WBC 10.9* 11.0* 12.1* HGB 8.7* 8.9* 9.3* Recent Labs Component Name 03/08/25 0505 IRON 38* TIBC 251 FERRITIN 447* IMAGING: XR Panorex Result Date: 03/04/2025 IMPRESSION: Lucencies within the right mandibular presumed location of absent of the molar and premolar teeth. Recommend dental consultation. The report was drafted by Ofe Aponte MD (president finance company) 03/04/2025 8:30 AM. > Dictated by Lighting Equipment Operator I, Jamie Barriga MD have personally reviewed and interpreted this examination/study. > Interpreting Provider: Jamie Barriga MD on 03/04/2025 9:17 AM ASSESSMENT #CKD Stage 4 #Mitral Valve Vegetation -Baseline serum creatinine- Unclear mg/dl. No labs available prior to February 2024 admission where creatinine was > 10. No labs available since discharge with creatinine 4.47 so unclear renal function baseline. May continue to improve but likely still with CKD stage 4. -Current serum creatinine- 2.97 mg/dl, down trend. -Volume Status: Euvolemic -Renal US: 03/09: 1.Hypoechoic structure within the right kidney measuring up to 1.1 cm without definite posterior enhancement. This may represent a complex cyst however a neoplastic process cannot be ruled out. 2.There are 2 nonobstructive renal calculi within the right kidney. There is a complex cyst within the right kidney. 3.No hydronephrosis bilaterally. 4.Complex anechoic structure within the spleen, may represent a hematoma # Chronic kidney disease-mineral and bone disorder (CKD-MBD) -Ca- and P- wnl -PTH- 80.3 pg/ml, wnl -Vitamin D- 39 ng/ml, wnl # Anemia of chronic kidney disease -Hb- 8.6 g/dl -Transfuse if Hb < 7 g/dl RECOMMENDATIONS - Proceed with clinically indicated interventions for his mitral vegetation in favor of waiting forpossible further renal recovery. Delaying intervention for vegetation likely exceeds the risk of worsening renal function with said interventions - Start FeSo4 PO - continue checking at least daily renal function panel - avoid unnecessary nephrotoxic medications and hypotension, keep MAP > 65 Gerry Brambila MD Nephrology Fellow [1] Past Medical History: Diagnosis Date CKD (chronic kidney disease) COPD (chronic obstructive pulmonary disease) (HCC) GERD (gastroesophageal reflux disease) HTN (hypertension) Nephrolithiasis Obstructive uropathy [2] Past Surgical History: Procedure Laterality Date CYSTOSCOPY cystoscopy with ureteral stent placement Retinal Detachment Repair Bilateral [3] Family History Problem Relation Name Age of Onset COPD - Chronic Obstructive Pulmonary Disease Mother Renal Disease Father [4] No Known Allergies [5] No current facility-administered medications on file prior to encounter. Current Outpatient Medications on File Prior to Encounter Medication Sig Dispense Refill amLODIPine (Norvasc) 5 MG tablet Take 1 (one) tablet by mouth once daily metoprolol succinate XL 24hr (Toprol XL) 25 MG tablet Take 1 (one) tablet by mouth once daily montelukast (Singulair) 10 MG tablet Take 1 (one) tablet by mouth at bedtime omeprazole (PriLOSEC) 40 MG capsule Take 1 (one) capsule by mouth daily before breakfast [6] 0.9% NaCl 3 mL Intracatheter q8h amLODIPine 5 mg Oral QDAY ampicillin 2 g Intravenous q8h budesonide-formoterol 2 puff Inhalation BID And umeclidinium 1 puff Inhalation QDAY cefTRIAXone 2 g Intravenous q12h [Held by Provider] heparin 5,000 Units Subcutaneous q8h melatonin 3 mg Oral AT BEDTIME metoprolol succinate XL 24hr 25 mg Oral AT BEDTIME montelukast 10 mg Oral AT BEDTIME pantoprazole EC 40 mg Oral QDAY polyethylene glycol 3350 17 g Oral QDAY senna 8.6 mg Oral QDAY [7] dextrose 5 % and lactated ringers, , Last Rate: 100 mL/hr at 03/10/25 0019 Cosigned by Trinity Lester MD at 03/12/2025 8:42 PM CDT Associated attestation - Tirnity Lester MD - 03/12/2025 8:42 PM CDT The patient was seen and examined with the house staff. Please see further details in the house staff note. 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 * Mamta Sky MD - 03/12/2025 7:13 AM CDT Images from the original note were not included. [facility] Internal Medicine Progress Note Name: Marshall Espinal . Room/Bed: [facility] : 1960 65 year old PCP: Provider Unknown Admit Date/Time: 03/01/2025 9:44 PM LOS: 11 Subjective Interval update: No overnight events. Hemodynamically stable. Patient denies fever, chills, nausea, vomiting, and shortness of breath. Hospital course: Marshall Espinal is a 64 year old male with PMHx of HTN, CKD, COPD, hx of recurrent nephrolithiasiswho presents from an OSH ([facility]) for a splenic abscess. Pain on left side had been happening for2 weeks. Patient has a history of kidney stones and had similar symptoms in the past, so he thoughtit was another occurrence of a kidney stone. He was seen as [facility] and was told that he was going to have imaging done to rule out kidney stones, and was found to have a splenic abscess and diverticulitis. Patient reports no prior history of diverticulitis. Patient denied any issues withtrauma to his left side with respect to the splenic abscess, and he did not notice any new changes to his bowel habits. Patient reported that he was only taking Pepto bismol for his pain. Patient otherwise well on exam with no fevers. IR consutled on admission, did not feel strongly that it was an abscess and recommended against drainage. Underwent ECHO 03/02 which revealed an echodensity 10 mm x12 mm attached to the anterior mitral leaflet, possible differential includes vegetation, torn chord ae. Cardiology was consulted, and SINTIA ordered. Blood cultures from OSH revealed 1/2 cultures positive stain for gram positive cocci. Repeat blood cultures collected at [facility] revealed similar findings,1/2 positive for gram cocci in pairs and chains and later positive for enterococci on 03/03. Infectious disease consulted for recommendations regarding bacteremia with unclear source. On 03/04, ID ordered another blood culture for further evaluation. Preliminary result for blood cultures have come back for no growth so far 03/06. Pt received his SINTIA on 03/06. Dentistry was consulted for dental abscess on 03/06. SINTIA was read, concerns for large abscess on the mitral valve, CTS following and recommends urgent MV surgery with approval from nephrology, cardiology, dental, and ID. Plan for multidisplinary rounds on 03/08, following dental surgery for approval of MV surgery. Per CTS and nephrology a VAS carotid duplex bilateral and renal ultrasound was conducted 03/08. Dental surgery performed 03/09. Cardiac Cath performed 03/10. Objective Temp: [97.7 ??F (36.5 ??C)-98.3 ??F (36.8 ??C)] 98.1 ??F (36.7 ??C) Pulse: [83-106] 83 Resp: [16-18] 16 BP: (125-136)/(80-101) 136/101 Weight change: Intake/Output Summary (Last 24 hours) at 03/12/2025 0713 Last data filed at 03/11/20252009 Gross per 24 hour Intake 1120 ml Output 1750 ml Net -630 ml Physical Exam: Gen: Alert, cooperative, in no acute distress HEENT: NC/AT, EOMI, no nasal drainage CV: Regular rate and rhythm. Lungs: Clear to auscultation bilaterally Abdomen: Soft, non-tender, non-distended Extremities: Nontender with normal ROM, no lower extremity edema Skin: Warm, dry Neuro: Alert and oriented to person, place, time and situation Psych: Mood appropriate Scheduled Medications: Medications[1] PRN Medications: Medications[2] Continuous Infusions: Medications[3] Laboratory Data Recent Labs Component Name 03/11/2560503/10/2560403/09/25445 WBC 9.3 10.9* 11.0* HGB 8.6* 8.7* 8.9* HCT 27.5* 26.8* 29.0* PLTCOUNT 486* 502* 548* MCV 87.3 87.3 89.2 Recent Labs Component Name 03/08/25 0505 PT 14.0 INR 1.1 Recent Labs Component Name 03/11/2560503/10/25 0603/09/25 0445 NA 140 137 137 POTASSIUM 4.2 4.4 4.1 CL 111* 109* 109* CO2 22 19* 20* BUN 35* 32* 35* CREATININE 2.97* 3.09* 3.18* Recent Labs Component Name 03/11/2560503/10/25 0603/09/25 0445 CALCIUM 9.1 9.2 9.1 PHOS 3.9 4.4 4.3 Recent Labs Component Name 03/11/2560503/10/25 0603/09/25 0445 PROT 7.3 7.7 7.8 ALB 2.9* 3.0* 3.0* ALKPHOS 123 127 141 AST 10 10 13 ALT 5 7 8 TBILI 0.2 0.2 0.1* No results for input(s): CKTOTAL, CKMBCK2, TROPONINI in the last 01942 hours. Recent Labs Component Name 03/03/25 0500 VANCORNDM 17.1 Microbiology Results (Displays last 21 days for this encounter ONLY) Procedure Component Value - Date/Time CULTURE BLOOD [[id number]] (Normal) Collected: 03/04/25 110 Lab Status: Final result Specimen: Blood Peripheral Updated: 03/09/25 1330 Culture No growth day 5 CULTURE BLOOD [[id number]] (Normal) Collected: 03/04/25 110 Lab Status: Final result Specimen: Blood Peripheral Updated: 03/09/25 1330 Culture No growth day 5 MRSA PCR [[id number]] (Normal) Collected: 03/02/25 0847 Lab Status: Final result Specimen: Microbiology from Nasal Updated: 03/02/25 1541 MRSA DNA by PCR Not detected Narrative: Methicillin-resistant Staphylococcus aureus (MRSA) DNA is not detected (presumed not colonized withMRSA). CULTURE BLOOD [[id number]] (Abnormal) Collected: 03/02/25 0533 Lab Status: Final result Specimen: Blood Peripheral Updated: 03/07/25 1038 Culture Growth of Enterococcus faecalis Gram Stain Gram-positive cocci pairs and chains Narrative: Positive at 28 Hours 19 Minutes Refer to previously reported susceptibility testing, specimen number:[id number] CULTURE BLOOD [[id number]] (Abnormal) (Susceptibility) Collected: 03/02/25532 Lab Status: Final result Specimen: Blood Peripheral Updated: 03/07/25 1038 Culture Growth of Enterococcus faecalis Gram Stain Gram-positive cocci pairs and chains Narrative: Positive at 22 Hours 44 Minutes Susceptibility Enterococcus faecalis (1) Antibiotic Interpretation Microscan Method Status Ampicillin Susceptible <=2 ug/mL LAVELLE Final Gentamicin 500 Susceptible SYN-S ug/mL LAVELLE Final Vancomycin Susceptible 2 ug/mL LAVELLE Final Susceptibility Comments Streptomycin Synergy susceptible predicts synergy between ampicillin, penicillin, or vancomycin plus streptomycin when isolates are susceptible to these agents. Combination therapy with ampicillin, penicillin or vancomycin(for susceptible strains) plus an aminoglycoside is usually indicated for serious enterococcal infections such as endocarditis, UNLESS high-level resistance to both gentamicin and streptomycin is documented. Gentamicin Synergy susceptible predicts synergy between ampicillin, penicillin, or vancomycin plus gentamicin when isolates are susceptible to these agents. Combination therapy with ampicillin, penicillin, or vancomycin (for susceptible strains) plus an aminoglycoside is usually indicated for serious enterococcal infections such as endocarditis UNLESS high-level resistance to both gentamicin and streptomycin is documented. Invasive enterococcal infections require combination therapy with susceptible agents. ID consultation is strongly recommended where available. BLOOD CULTURE ID PANEL [[id number]] (Abnormal) Collected: 03/02/25 0533 Lab Status: Final result Specimen: Blood Peripheral Updated: 03/03/25 1033 Enterococcus faecalis Detected Van A/B Vancomycin Resistance Not detected Comment: Results indicate vancomycin-susceptible Enterococcus faecalis. Nasir/B not detected. Narrative: Blood Culture ID Panel performed by [employer] multiplex PCR. The Test panel includes: Gram Positive Bacteria: Enterococcus faecalis, Enterococcus faecium, Listeria monocytogenes, Staphylococcus (genus), Staphylococcus aureus, Staphylococcus epidermidis, Staphylococcus lugdunensis, Streptococcus (genus), Streptococcus agalactiae (Group B), Streptococcus pneumoniae, Streptococcus pyogenes (Group A). Gram Negative Bacteria: Acinetobacter baumannii complex, Bacteroides fragilis, Haemophilus influenzae, Neisseria meningitidis (encapsulated), Pseudomonas aeruginosa, Stenotrophomonas maltophilia, Enterobacterales (formerly Enterobacteriaceae family), Enterobacter cloacae complex, Escherichia coli, K lebsiella (formerly Enterobacter) aerogenes, Klebsiella oxytoca, Klebsiella pneumoniae group, Proteus (genus), Salmonella species, Serratia marcescens. YEAST: Yesi albicans, Yesi auris, Yesi glabrata, Yesi krusei, Eysi parapsilosis, Yesi tropicalis, Cryptococcus neoformans/gattii. Antimicrobial Resistance Genes: CTX-M (extended-spectrum beta-lactamase), IMP ([place] beta-lactamase), KPC (carbapenemase), mcr-1 (colistin resistance determinant) mecA/C (methicillin-resistance), mecA/C and MREJ (methicillin- resistance - MRSA), NDM ([place] xgcwzxs-iduz-odoarscki), OXA-48-like ( oxacillinase beta-lactamase),Nasir/B (vancomycin-resistance), VIM (Dora Intergrom-Encoded [place] beta-lactamase). Imaging CT Chest Wo Contrast Result Date: 03/10/2025 Impression: 1.A few sub-5 mm nodules within bilateral upper lobes. No evidence of septic emboli. 2.Partially visualized 8.3 cm hypoattenuating area in the spleen, cannot be characterized on this noncontrast examination. Further evaluation with CT or MRI imaging recommended if clinically indicated. > Dictated by Nick Jay MD, (associate professor of radiology). > Dictated by Lighting Equipment Operator I, E. Stephany Thomson MD have personally reviewed and interpreted this examination/study. > Interpreting Provider: Jen Thomson MD on 03/10/2025 5:00 PM US Retroperitoneal Complete Result Date: 03/09/2025 IMPRESSION: 1.Hypoechoic structure within the right kidney measuring up to 1.1 cm without definite posterior enhancement. This may represent a complex cyst however a neoplastic process cannot be ruled out. Recommend cross-sectional imaging with the renal protocol for further evaluation. 2.There are2 nonobstructive renal calculi within the right kidney. There is a complex cyst within the right kidney. 3.No hydronephrosis bilaterally. 4.Complex anechoic structure within the spleen, may representa hematoma however cannot exclude other etiologies. Multiphase CT or MR imaging may be obtained forfurther evaluation if clinically indicated. > Dictated by Eunice Ramirez (associate professor of radiology). >Dictated by Eunice Ramirez 03/09/2025 11:07 AM > Dictated by Lighting Equipment Operator IJen MD have personally reviewed and interpreted this examination/study. > Interpreting Provider: Jen Thomson MD on 03/09/2025 1:40 PM Relevant labs and imaging data reviewed on [facility]. Assessment and Plan Assessment & Plan Abscess of spleen Diverticulosis Enterococcal bacteremia Mitral valve vegetation (HCC) Endocarditis, suspected - SINTIA came back for large vegetation on mitral valve with severe mitral regurgitation. Per SINTIA, CTSrecommends multi team consult for approved recs to follow on surgery - 03/09 Dental surgery completed, 9 teeth were pulled. - Cardiology following, left cardiac cath performed 03/09 PLAN: - Ampicillin 2 g IV q8h per ID recs - Ceftriaxone 2 g IV q12h per ID recs - CTS scheduled surgery 03/15 - Nephrology consulted, pt is safe to proceed with MV surgery - Incentive spirometry for prevention of pneumonia - PT/OT consulted for CTS Pre-OP evaluation - F/u labs 03/13 am HTN (hypertension) - Home Rx: Metoprolol succinate 25 mg PO QHS, amlodipine 5 mg PO QD - BP stable, 119-126 systolic this AM PLAN: - Continue metoprolol succinate 25 - amLODIPine (Norvasc) tablet 5 mg COPD (chronic obstructive pulmonary disease) (HCC) - Home meds include Trelegy, fluticasone propionate PLAN: - Incruse and symbicort while in-patient CKD (chronic kidney disease) stage 5, GFR less than 15 ml/min ([facility]) Cr-3.44-3.62 PLAN: - Avoid nephrotoxic agents and continue tight control of blood pressures MAP > 65 - Nephrology consulted, pt should proceed with cath and MV surgery - Start FeSo4 PO per nephrology - Daily RFP Diet: DIET REGULAR DVT Prophylaxis: Heparin Drip Code Status: Full Code [place] Candidate?: No Electronically Signed By: Mamta Sky MD 03/12/2025 7:13 AM [1] 0.9% NaCl 3 mL Intracatheter q8h amLODIPine 5 mg Oral QDAY ampicillin 2 g Intravenous q8h budesonide-formoterol 2 puff Inhalation BID And umeclidinium 1 puff Inhalation QDAY cefTRIAXone 2 g Intravenous q12h heparin 5,000 Units Subcutaneous q8h melatonin 3 mg Oral AT BEDTIME metoprolol succinate XL 24hr 25 mg Oral AT BEDTIME montelukast 10 mg Oral AT BEDTIME pantoprazole EC 40 mg Oral QDAY polyethylene glycol 3350 17 g Oral QDAY senna 8.6 mg Oral QDAY [2] SALINE LOCK, INSERT AND MAINTAIN AND 0.9% NaCl AND 0.9% NaCl acetaminophen dextrose IV for hypoglycemia OR dextrose IV for hypoglycemia OR glucagon fluticasone propionate glucose (Diabetic Use) gel [3] Cosigned by Adalberto Arroyo MD at 03/12/2025 11:14 AM CDT Associated attestation - Adalberto Arroyo MD - 03/12/2025 11:14 AM CDT I have seen and examined the patient with the resident and I agree with the findings and plan of care as documented by the resident. Date of Service: 03/12/2025 Adalberto Arroyo MD * Arnulfo Page RN - 03/12/2025 12:44 AM CDT Problem: Pain/Discomfort Goal: Patient exhibits reduced pain/discomfort as evidenced by pain scores Outcome: Progressing Goal: Patient uses pharmacological and non-pharmacological pain management strategies. Outcome: Progressing Goal: Patient verbalizes acceptable level of pain relief and ability to engage in desired activity. Outcome: Progressing Problem: Medication Adherence Goal: Consistently take medications as prescribed Outcome: Progressing Problem: Neurosensory - Adult Goal: Achieves stable or improved neurological status Description: INTERVENTIONS Outcome: Progressing Goal: Remains free of injury related to seizures activity Description: INTERVENTIONS: Outcome: Progressing Goal: Achieves maximal functionality and self care Description: INTERVENTIONS: Outcome: Progressing Problem: Respiratory - Adult Goal: Achieves optimal ventilation and oxygenation Description: INTERVENTIONS: Outcome: Progressing Problem: Cardiovascular - Adult Goal: Maintains optimal cardiac output and hemodynamic stability Description: INTERVENTIONS: Outcome: Progressing Goal: Absence of cardiac dysrhythmias or at baseline Description: INTERVENTIONS: Outcome: Progressing Problem: Skin/Tissue Integrity - Adult Goal: Skin integrity remains intact Description: INTERVENTIONS: Outcome: Progressing Goal: Incisions, wounds, or drain sites healing without S/S of infection Description: INFECTIONS: Outcome: Progressing Goal: Oral mucous membranes remain intact Description: INTERVENTIONS: Outcome: Progressing Problem: Neurovascular Musculoskeletal - Adult Goal: Return mobility to safest level of function Description: INTERVENTIONS: Outcome: Progressing Goal: Maintain proper alignment of affected body part Description: INTERVENTIONS: Outcome: Progressing Goal: Return ADL status to a safe level of function Description: INTERVENTIONS: Outcome: Progressing Goal: Absence or reduction of edema Description: INTERVENTIONS Outcome: Progressing Goal: Maintains or improves tissue perfusion Description: INTERVENTIONS Outcome: Progressing Problem: Gastrointestinal - Adult Goal: Minimal or absence of nausea and vomiting Description: INTERVENTIONS: Outcome: Progressing Goal: Maintains or returns to baseline bowel function Description: INTERVENTIONS: Outcome: Progressing Goal: Maintains adequate nutritional intake Description: INTERVENTIONS: Outcome: Progressing Problem: Genitourinary - Adult Goal: Maintains or returns to baseline genitourinary function Description: INTERVENTIONS: Outcome: Progressing Goal: Urinary catheter remains patent Description: INTERVENTIONS: Outcome: Progressing Problem: Infection - Adult Goal: Infections are decreased or avoided Description: INTERVENTIONS: Outcome: Progressing Problem: Metabolic/Fluid and Electrolytes - Adult Goal: Electrolytes maintained within normal limits Description: INTERVENTIONS: Outcome: Progressing Goal: Hemodynamic stability and optimal renal function maintained Description: INTERVENTIONS: Outcome: Progressing Goal: Glucose maintained within prescribed range Description: INTERVENTIONS: Outcome: Progressing Problem: Hematologic - Adult Goal: Maintains hematologic stability Description: INTERVENTIONS: Outcome: Progressing Problem: Fall Risk Goal: Fall risk and fall related injury risk are minimized (interventions related to the fall risk can be found in the flowsheet documentation) Outcome: Progressing Pt A/O x4, RA, no s/s of distress noted. Pt denies any pain at this time, 0/10. Pt able to voice needs and or concerns. Call [place] with personal belongings within reach. Safety maintained. Will continue POC. * Peewee Merino RN - 03/11/2025 6:20 PM CDT Problem: Pain/Discomfort Goal: Patient exhibits reduced pain/discomfort as evidenced by pain scores Outcome: Progressing Goal: Patient uses pharmacological and non-pharmacological pain management strategies. Outcome: Progressing Goal: Patient verbalizes acceptable level of pain relief and ability to engage in desired activity. Outcome: Progressing Problem: Medication Adherence Goal: Consistently take medications as prescribed Outcome: Progressing Problem: Neurosensory - Adult Goal: Achieves stable or improved neurological status Description: INTERVENTIONS Outcome: Progressing Goal: Remains free of injury related to seizures activity Description: INTERVENTIONS: Outcome: Progressing Goal: Achieves maximal functionality and self care Description: INTERVENTIONS: Outcome: Progressing Problem: Respiratory - Adult Goal: Achieves optimal ventilation and oxygenation Description: INTERVENTIONS: Outcome: Progressing Problem: Cardiovascular - Adult Goal: Maintains optimal cardiac output and hemodynamic stability Description: INTERVENTIONS: Outcome: Progressing Goal: Absence of cardiac dysrhythmias or at baseline Description: INTERVENTIONS: Outcome: Progressing Problem: Skin/Tissue Integrity - Adult Goal: Skin integrity remains intact Description: INTERVENTIONS: Outcome: Progressing Goal: Incisions, wounds, or drain sites healing without S/S of infection Description: INFECTIONS: Outcome: Progressing Goal: Oral mucous membranes remain intact Description: INTERVENTIONS: Outcome: Progressing Problem: Neurovascular Musculoskeletal - Adult Goal: Return mobility to safest level of function Description: INTERVENTIONS: Outcome: Progressing Goal: Maintain proper alignment of affected body part Description: INTERVENTIONS: Outcome: Progressing Goal: Return ADL status to a safe level of function Description: INTERVENTIONS: Outcome: Progressing Goal: Absence or reduction of edema Description: INTERVENTIONS Outcome: Progressing Goal: Maintains or improves tissue perfusion Description: INTERVENTIONS Outcome: Progressing Problem: Gastrointestinal - Adult Goal: Minimal or absence of nausea and vomiting Description: INTERVENTIONS: Outcome: Progressing Goal: Maintains or returns to baseline bowel function Description: INTERVENTIONS: Outcome: Progressing Goal: Maintains adequate nutritional intake Description: INTERVENTIONS: Outcome: Progressing Problem: Genitourinary - Adult Goal: Maintains or returns to baseline genitourinary function Description: INTERVENTIONS: Outcome: Progressing Goal: Urinary catheter remains patent Description: INTERVENTIONS: Outcome: Progressing Problem: Infection - Adult Goal: Infections are decreased or avoided Description: INTERVENTIONS: Outcome: Progressing Problem: Metabolic/Fluid and Electrolytes - Adult Goal: Electrolytes maintained within normal limits Description: INTERVENTIONS: Outcome: Progressing Goal: Hemodynamic stability and optimal renal function maintained Description: INTERVENTIONS: Outcome: Progressing Goal: Glucose maintained within prescribed range Description: INTERVENTIONS: Outcome: Progressing Problem: Hematologic - Adult Goal: Maintains hematologic stability Description: INTERVENTIONS: Outcome: Progressing Problem: Fall Risk Goal: Fall risk and fall related injury risk are minimized (interventions related to the fall risk can be found in the flowsheet documentation) Outcome: Progressing * Cj Carpenter MD - 03/11/2025 11:31 AM CDT Images from the original note were not included. [facility] Internal Medicine Progress Note Name: Marshall Espinal Jr. Room/Bed: [facility] : 1960 65 year old PCP: Provider Unknown Admit Date/Time: 03/01/2025 9:44 PM LOS: 10 Subjective Interval update: NAEON. Pt remains stable. Pt received left cardiac cath was completed yesterday, no complications with surgery. He has no concerns this morning, he would like to shave his face which was confirmed with nursing. All questions were answered at bedside today. Hospital course: Marshall Espinal is a 64 year old male with PMHx of HTN, CKD, COPD, hx of recurrent nephrolithiasiswho presents from an OSH ([facility]) for a splenic abscess. Pain on left side had been happening for2 weeks. Patient has a history of kidney stones and had similar symptoms in the past, so he thoughtit was another occurrence of a kidney stone. He was seen as [facility] and was told that he was going to have imaging done to rule out kidney stones, and was found to have a splenic abscess and diverticulitis. Patient reports no prior history of diverticulitis. Patient denied any issues withtrauma to his left side with respect to the splenic abscess, and he did not notice any new changes to his bowel habits. Patient reported that he was only taking Pepto bismol for his pain. Patient otherwise well on exam with no fevers. IR consutled on admission, did not feel strongly that it was an abscess and recommended against drainage. Underwent ECHO 03/02 which revealed an echodensity 10 mm x12 mm attached to the anterior mitral leaflet, possible differential includes vegetation, torn chord ae. Cardiology was consulted, and SINTIA ordered. Blood cultures from OSH revealed 1/2 cultures positive stain for gram positive cocci. Repeat blood cultures collected at [facility] revealed similar findings,1/2 positive for gram cocci in pairs and chains and later positive for enterococci on 03/03. Infectious disease consulted for recommendations regarding bacteremia with unclear source. On 03/04, ID ordered another blood culture for further evaluation. Preliminary result for blood cultures have come back for no growth so far 03/06. Pt received his SINTIA on 03/06. Dentistry was consulted for dental abscess on 03/06. SINTIA was read, concerns for large abscess on the mitral valve, CTS following and recommends urgent MV surgery with approval from nephrology, cardiology, dental, and ID. Plan for multidisplinary rounds on 03/08, following dental surgery for approval of MV surgery. Per CTS and nephrology a VAS carotid duplex bilateral and renal ultrasound was conducted 03/08. Dental surgery performed 03/09. Cardiac Cath performed 03/10. Objective Temp: [96.5 ??F (35.8 ??C)-98.1 ??F (36.7 ??C)] 98.1 ??F (36.7 ??C) Pulse: [87-99] 88 Resp: [16-18] 16 BP: (125-143)/(81-93) 135/86 Weight change: Intake/Output Summary (Last 24 hours) at 03/11/2025 1131 Last data filed at 03/11/2025 0950 Gross per 24 hour Intake 1016 ml Output 2650 ml Net -1634 ml Physical Exam: Physical Exam Constitutional: General: He is not in acute distress. Appearance: Normal appearance. He is not ill-appearing. HENT: Head: Normocephalic and atraumatic. Mouth/Throat: Mouth: Mucous membranes are moist. Pharynx: No oropharyngeal exudate or posterior oropharyngeal erythema. Comments: Multiple missing teeth, dental caries Eyes: General: No scleral icterus. Extraocular Movements: Extraocular movements intact. Conjunctiva/sclera: Conjunctivae normal. Cardiovascular: Rate and Rhythm: Normal rate and regular rhythm. Pulses: Normal pulses. Heart sounds: Normal heart sounds. No murmur heard. Pulmonary: Effort: Pulmonary effort is normal. No respiratory distress. Breath sounds: Normal breath sounds. No wheezing. Abdominal: General: Abdomen is flat. Bowel sounds are normal. There is no distension. Palpations: Abdomen is soft. Tenderness: There is no abdominal tenderness. There is no guarding. Comments: Musculoskeletal: General: No swelling, tenderness or deformity. Skin: General: Skin is warm and dry. Coloration: Skin is not jaundiced. Findings: No bruising. Neurological: General: No focal deficit present. Mental Status: He is alert and oriented to person, place, and time. Mental status is at baseline. Cranial Nerves: No cranial nerve deficit. Sensory: No sensory deficit. Psychiatric: Mood and Affect: Mood normal. Behavior: Behavior normal. Scheduled Medications: Medications[1] PRN Medications: Medications[2] Continuous Infusions: Medications[3] Laboratory Data Recent Labs Component Name 03/11/25 0606 03/10/25 0605 03/09/25 0446 WBC 9.3 10.9* 11.0* HGB 8.6* 8.7* 8.9* HCT 27.5* 26.8* 29.0* PLTCOUNT 486* 502* 548* MCV 87.3 87.3 89.2 Recent Labs Component Name 03/08/25 0505 PT 14.0 INR 1.1 Recent Labs Component Name 03/11/25 0606 03/10/25 0605 03/09/25 0445 NA 140 137 137 POTASSIUM 4.2 4.4 4.1 CL 111* 109* 109* CO2 22 19* 20* BUN 35* 32* 35* CREATININE 2.97* 3.09* 3.18* Recent Labs Component Name 03/11/25 0606 03/10/25 0605 03/09/25 0445 CALCIUM 9.1 9.2 9.1 PHOS 3.9 4.4 4.3 Recent Labs Component Name 03/11/25 0606 03/10/25 0605 03/09/25 0445 PROT 7.3 7.7 7.8 ALB 2.9* 3.0* 3.0* ALKPHOS 123 127 141 AST 10 10 13 ALT 5 7 8 TBILI 0.2 0.2 0.1* No results for input(s): CKTOTAL, CKMBCK2, TROPONINI in the last 31616 hours. Recent Labs Component Name 03/03/25 0500 VANCORNDM 17.1 Microbiology Results (Displays last 21 days for this encounter ONLY) Procedure Component Value - Date/Time CULTURE BLOOD [[id number]] (Normal) Collected: 03/04/25 110 Lab Status: Final result Specimen: Blood Peripheral Updated: 03/09/25 1330 Culture No growth day 5 CULTURE BLOOD [[id number]] (Normal) Collected: 03/04/25 110 Lab Status: Final result Specimen: Blood Peripheral Updated: 03/09/25 1330 Culture No growth day 5 MRSA PCR [[id number]] (Normal) Collected: 03/02/25 0847 Lab Status: Final result Specimen: Microbiology from Nasal Updated: 03/02/25 1541 MRSA DNA by PCR Not detected Narrative: Methicillin-resistant Staphylococcus aureus (MRSA) DNA is not detected (presumed not colonized withMRSA). CULTURE BLOOD [[id number]] (Abnormal) Collected: 03/02/25532 Lab Status: Final result Specimen: Blood Peripheral Updated: 03/07/25 1038 Culture Growth of Enterococcus faecalis Gram Stain Gram-positive cocci pairs and chains Narrative: Positive at 28 Hours 19 Minutes Refer to previously reported susceptibility testing, specimen number:[id number] CULTURE BLOOD [[id number]] (Abnormal) (Susceptibility) Collected: 03/02/25532 Lab Status: Final result Specimen: Blood Peripheral Updated: 03/07/25 1038 Culture Growth of Enterococcus faecalis Gram Stain Gram-positive cocci pairs and chains Narrative: Positive at 22 Hours 44 Minutes Susceptibility Enterococcus faecalis (1) Antibiotic Interpretation Microscan Method Status Ampicillin Susceptible <=2 ug/mL LAVELLE Final Gentamicin 500 Susceptible SYN-S ug/mL LAVELLE Final Vancomycin Susceptible 2 ug/mL LAVELLE Final Susceptibility Comments Streptomycin Synergy susceptible predicts synergy between ampicillin, penicillin, or vancomycin plus streptomycin when isolates are susceptible to these agents. Combination therapy with ampicillin, penicillin or vancomycin(for susceptible strains) plus an aminoglycoside is usually indicated for serious enterococcal infections such as endocarditis, UNLESS high-level resistance to both gentamicin and streptomycin is documented. Gentamicin Synergy susceptible predicts synergy between ampicillin, penicillin, or vancomycin plus gentamicin when isolates are susceptible to these agents. Combination therapy with ampicillin, penicillin, or vancomycin (for susceptible strains) plus an aminoglycoside is usually indicated for serious enterococcal infections such as endocarditis UNLESS high-level resistance to both gentamicin and streptomycin is documented. Invasive enterococcal infections require combination therapy with susceptible agents. ID consultation is strongly recommended where available. BLOOD CULTURE ID PANEL [[id number]] (Abnormal) Collected: 03/02/25 0533 Lab Status: Final result Specimen: Blood Peripheral Updated: 03/03/25 1033 Enterococcus faecalis Detected Van A/B Vancomycin Resistance Not detected Comment: Results indicate vancomycin-susceptible Enterococcus faecalis. Nasir/B not detected. Narrative: Blood Culture ID Panel performed by [employer] multiplex PCR. The Test panel includes: Gram Positive Bacteria: Enterococcus faecalis, Enterococcus faecium, Listeria monocytogenes, Staphylococcus (genus), Staphylococcus aureus, Staphylococcus epidermidis, Staphylococcus lugdunensis, Streptococcus (genus), Streptococcus agalactiae (Group B), Streptococcus pneumoniae, Streptococcus pyogenes (Group A). Gram Negative Bacteria: Acinetobacter baumannii complex, Bacteroides fragilis, Haemophilus influenzae, Neisseria meningitidis (encapsulated), Pseudomonas aeruginosa, Stenotrophomonas maltophilia, Enterobacterales (formerly Enterobacteriaceae family), Enterobacter cloacae complex, Escherichia coli, K lebsiella (formerly Enterobacter) aerogenes, Klebsiella oxytoca, Klebsiella pneumoniae group, Proteus (genus), Salmonella species, Serratia marcescens. YEAST: Yesi albicans, Yesi auris, Yesi glabrata, Yesi krusei, Yesi parapsilosis, Yesi tropicalis, Cryptococcus neoformans/gattii. Antimicrobial Resistance Genes: CTX-M (extended-spectrum beta-lactamase), IMP ([place] beta-lactamase), KPC (carbapenemase), mcr-1 (colistin resistance determinant) mecA/C (methicillin-resistance), mecA/C and MREJ (methicillin- resistance - MRSA), NDM ([place] [id number]), OXA-48-like ( oxacillinase beta-lactamase),Nasir/B (vancomycin-resistance), VIM (Sangeeta Intergrom-Encoded [place] beta-lactamase). Imaging US Retroperitoneal 03/09: IMPRESSION: 1.Hypoechoic structure within the right kidney measuring up to 1.1 cm without definite posterior enhancement. This may represent a complex cyst however a neoplastic process cannot be ruled out. Recommend cross-sectional imaging with the renal protocol for further evaluation. 2.There are2 nonobstructive renal calculi within the right kidney. There is a complex cyst within the right kidney. 3.No hydronephrosis bilaterally. 4.Complex anechoic structure within the spleen, may representa hematoma however cannot exclude other etiologies. Multiphase CT or MR imaging may be obtained forfurther evaluation if clinically indicated. VAS Carotid Duplex BL 03/07 There is less than 50% stenosis of bilateral internal carotid arteries. Bilateral vertebral flow isantegrade. ECHO SINTIA 03/06 Summary: * There is a 1.16 cm x 0.78 cm mobile vegetation attached to the atrial surface of the anterior mitral valve leaflet tip (around the A2/A3 scallop tip). * There is moderate to severe mitral valve regurgitation with a very eccentric posterior jet that originates at the site of the vegetation. Mitral valve regurgitant volume is 30 ml regurgitant fraction is calculated 33%. 3-D ERO area is 0.36 cm2. Vena contracta width (2D) 0.42 cm. 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 * Agitated saline contrast study at rest and with Valsalva is negative for a shunt. * Normal left ventricular systolic function. Visually estimated LV EF is 55-60%. * Right ventricular systolic function is grossly normal. XR Panorex 03/03: FINDINGS: Multiple dental restorations are identified, and numerous teeth are absent. There are scattered dental caries. No acute mandibular fracture is identified. Both temporomandibular joints are intact. Lucencies within the right mandibular presumed location of absent of the molar and premolar teeth. IMPRESSION: Lucencies within the right mandibular presumed location of absent of the molar and premolar teeth. Recommend dental consultation. Relevant labs and imaging data reviewed on Epic. Assessment and Plan Abscess of spleen (POA: Yes) HTN (hypertension) (POA: Yes) Diverticulosis (POA: Yes) Enterococcal bacteremia (POA: Yes) Mitral valve vegetation (HCC) (POA: Yes) COPD (chronic obstructive pulmonary disease) (HCC) (POA: Yes) Endocarditis, suspected (POA: Yes) CKD (chronic kidney disease) stage 5, GFR less than 15 ml/min (HCC) (POA: Yes) Assessment & Plan Abscess of spleen Diverticulosis Enterococcal bacteremia Mitral valve vegetation (HCC) Endocarditis, suspected - CT Abd/Pelvis, OSH (02/28/25): New 8.1 x 5.2 x 5.1 cm relatively low- attentuation likely complex cystic lesion in the inferior spleen. This has developed since 12/05/2024 arguing against neoplasm and favring either subacute hematoma or abscess in the appropriate clinical setting. - Elevated WBC 13.2 at outside hospital, 11.4 this AM and afebrile - IR consulted for possible abscess, low suspicion of abscess based on imaging appearance. No indication for drainage at this time; if patient clinically worsens, could consider MRI w/ contrast but not currently indicated. Imaging finding likely splenic hematoma vs cyst - UA with no concern for infection so no reflex to culture - Blood cultures from OSH revealed 1/2 cultures positive stain for gram positive cocci. Repeat blood cultures collected here revealed similar findings, 1/2 positive for gram cocci in pairs and chainsand later positive for enterococci faecalis - TTE revealed an echodensity 10 mm x 12 mm attached to the anterior mitral leaflet, possible differential includes vegetation, torn chordae. - Denies any IVDU, other drug use - Had tooth extraction 3 months ago, was scheduled for additional tooth extraction on 02/27 but missed while admitted - IR consulted for possible abscess, low suspicion of abscess based on imaging appearance. No indication for drainage at this time; if patient clinically worsens, could consider MRI w/ contrast but not currently indicated - Imaging finding likely splenic hematoma vs cyst - ACS consulted but low suspicion of abscess, given TTE results suggesting more secondary to infectious endocarditis - Per ID request and positive lab cultures for enterococcus faecalis, vancomycin and zosyn were stopped - MRSA negative - SINTIA came back for large vegetation on mitral valve with severe mitral regurgitation. Per SINTIA, CTSrecommends multi team consult for approved recs to follow on surgery - Repeated Blood Cultures ordered, no growth on preliminary results - Renal ultrasound currently unremarkable for inpatient treatment. Will follow up results outpatient, once pt is discharged - 03/09 Dental surgery completed, 9 teeth were pulled. - Cardiology following, left cardiac cath performed 03/09 PLAN: - Continue ampicillin and ceftriaxone per ID recs - CTS follows per SINTIA, request consults from dental (for tooth extraction), cardiology (for left cardiac cath prior to MV surgery), ID (for source of infection and appreciate antibiotic recs), nephrology (recs for MV surgery in setting of improved renal function) - CTS scheduled surgery 03/15, would still like to do multicenter rounds awhile awaiting MV surgery - Nephrology consulted, pt is safe to proceed with MV surgery - pt started on incentive spirometry for prevention of pneumonia - PT/OT consulted for CTS Pre-OP evaluation HTN (hypertension) - Home Rx: Metoprolol succinate 25 mg PO QHS, amlodipine 5 mg PO QD - BP stable, 119-126 systolic this AM PLAN: - Continue metoprolol succinate 25 - amLODIPine (Norvasc) tablet 5 mg COPD (chronic obstructive pulmonary disease) ([facility]) - Home meds include Trelegy, fluticasone propionate PLAN: - Incruse and symbicort while in-patient CKD (chronic kidney disease) stage 5, GFR less than 15 ml/min ([facility]) Cr-3.44-3.62 PLAN: - avoid nephrotoxic agents and continue tight control of blood pressures - nephrology consulted, pt should proceed with cath and MV surgery Incidental findings requiring follow up: Retroperitoneal US showed a 1.1 cm hypoechoic structure in the right kidney, possibly a complex cyst but neoplasm cannot be ruled out. Two nonobstructive renal stones also noted. Recommend renal protocol CT for further evaluation. Needs OP follow-up. Diet: DIET REGULAR DVT Prophylaxis: SCDs only Code Status: Full Code [place] Candidate?: No Electronically Signed By: Cj Carpenter MD 03/11/2025 11:31 AM The above assessment and plan will be discussed with attending physician. This note is not final until attested by the attending physician. [1] 0.9% NaCl 3 mL Intracatheter q8h amLODIPine 5 mg Oral QDAY ampicillin 2 g Intravenous q8h budesonide-formoterol 2 puff Inhalation BID And umeclidinium 1 puff Inhalation QDAY cefTRIAXone 2 g Intravenous q12h heparin 5,000 Units Subcutaneous q8h melatonin 3 mg Oral AT BEDTIME metoprolol succinate XL 24hr 25 mg Oral AT BEDTIME montelukast 10 mg Oral AT BEDTIME pantoprazole EC 40 mg Oral QDAY polyethylene glycol 3350 17 g Oral QDAY senna 8.6 mg Oral QDAY [2] SALINE LOCK, INSERT AND MAINTAIN AND 0.9% NaCl AND 0.9% NaCl acetaminophen dextrose IV for hypoglycemia OR dextrose IV for hypoglycemia OR glucagon fluticasone propionate glucose (Diabetic Use) gel [3] Cosigned by Adalberto Arroyo MD at 03/11/2025 12:38 PM CDT Associated attestation - Adalberto Arroyo MD - 03/11/2025 12:38 PM CDT I have seen and examined the patient with the resident and I agree with the findings and plan of care as documented by the resident. In addition: - anticipating OR next week. Date of Service: 03/11/2025 Adalberto Arroyo MD * Amaris Brennan PA-C - 03/11/2025 10:28 AM CDT CARDIAC SURGERY Progress note Patient Name: Marshall Espinal Jr. 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 Patient developed fever/chills, left sided flank pain - CT abdomen/pelvix with concern for splenic abscess, BCx + who is being evaluated for E. Faecalis - echo w/ MV vegetation 1x1.2cm w/ mild MR - transfer to [facility]. Patient is now afebrile, WBC stable at 11, Cr. Elevated at 3 (unclear baseline). Cardiology consulted for SINTIA. Patient reports night sweats and fevers on and off for months, prompting him to stop drinking. He was drinking vodka every day prior to 6 months ago.He developed a kidney stone one month JIG FITTER, he had no prior knowledge of kidney issues prior to developing the kidney stone. 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 His left sided pain began shortly after that occurrence. 03/07/25: Pt resting, not in distress. VSS. Disciplinary meeting tomorrow determine surgery time line; ID/nephrology/cardiology/CTS. SINTIA completed. Dentist following; recommendations tooth/teeth extraction prior to surgery. Patient aware of SELWYN on CKD and high risk of HD after surgery. 03/08/25: Pt tearful today, concerned about and after care. Will discuss timing of tooth extraction with dentist. OR possible next week after C 03/09/25: 9 teeth extracted 03/10/25: In [facility] this am for [facility]. No acute events overnight 03/11/25: Patient resting in bed, no acute events overnight. C results noted. Cardiothoracic High Risk Variables CHRONIC KIDNEY DISEASE CKD stage 4 and CKD Stage 5 Mitral valve Endocarditis Periodontal disease Splenic abscess H/o Diverticulosis COPD Were these Present on Admission? Yes Patient Active Problem List Diagnosis Date Noted CKD (chronic kidney disease) stage 5, GFR less than 15 ml/min ([facility]) 03/04/2025 Priority: Not Prioritized Enterococcal bacteremia 03/03/2025 Priority: Not Prioritized Mitral valve vegetation ([facility]) 03/03/2025 Priority: Not Prioritized COPD (chronic obstructive pulmonary disease) ([facility]) 03/03/2025 Priority: Not Prioritized Endocarditis, suspected 03/03/2025 Priority: Not Prioritized Diverticulosis 03/02/2025 Priority: Not Prioritized HTN (hypertension) 03/01/2025 Priority: Not Prioritized Abscess of spleen 02/28/2025 Priority: Not Prioritized Past Medical History[1] Past Surgical History[2] Medications[3] Allergies[4] Social History Tobacco Use Smoking status: Former Current packs/day: 0.00 Types: Cigarettes Quit date: 02/1971 Years since quittin.0 Smokeless tobacco: Never Substance Use Topics Alcohol use: Not Currently Alcohol/week: 2.0 - 3.0 standard drinks of alcohol Types: 2 - 3 Alcoholic drink(s) per week Comment: last drink was roughly 6 months ago Family History[5] Objective: BP 135/86 Pulse 88 Temp 98.1 ??F (36.7 ??C) (Oral) Resp 16 Ht 1.702 m (5' 7) Wt 81 kg (178 lb 8 oz) SpO2 98% General appearance: alert, cooperative, no distress Lungs: breath sounds normal and symmetric; no rales or wheezes Heart: regular rhythm, normal S1 and S2, grade 3/6 systolic murmur at the LSB radiating to the axillia Abdomen: soft without mass, non-tender, with normal bowel sounds Extremities: no clubbing, cyanosis or edema Data ReviewCBC: Recent Labs Component Name 03/11/25 0606 03/10/25 0605 03/09/25 0446 WBC 9.3 10.9* 11.0* HGB 8.6* 8.7* 8.9* HCT 27.5* 26.8* 29.0* PLTCOUNT 486* 502* 548* BMP: Recent Labs Component Name 03/11/25 0606 03/10/25 0605 03/09/25 0445 POTASSIUM 4.2 4.4 4.1 CO2 22 19* 20* BUN 35* 32* 35* CREATININE 2.97* 3.09* 3.18* GLUCOSE 96 125* [address] abdomen pelvis W/O contrast: Impression Impression: 1. Large 1.6 cm obstructing stone in the right renal pelvis. Mild to moderate right hydronephrosis.Numerous additional nonobstructing right renal calculi. 2. Mild diffuse urinary bladder wall thickening. Correlate with urinalysis to exclude cystitis. 3. Bibasilar pulmonary nodules measuring up to 5 mm. Per Fleischner guidelines, if the patient is considered high risk for lung cancer, an optional follow-up CT chest can be obtained in 12 months. Ifthe patient is considered low risk, no specific follow-up is required. ECHO: 03/02/25 Summary * The left ventricle is normal in size, with normal systolic function and an estimated ejection fraction of 64 % by biplane method of disks. Left ventricular wall motion is normal. * The left ventricular diastolic function is normal. * The mitral valve is displaying restricted posterior leaflet motion with calcification. There is an echodensity 10 mm x 12 mm attached to the anterior mitral leaflet, possible differential includes vegetation, torn chordae. Need to correlate clinically and SINTIA if clinical suspicion of endocarditis. * There is mild tricuspid valve regurgitation. * There is mild mitral valve regurgitation. * The pulmonary artery systolic pressure is normal, 27 mmHg. LHC: 40% narrowing in mid LAD. Overall, nonobstructive CAD. Left dominant circulation Right radial artery access, hemostasis by TR band. Panorex 03/02/25 MPRESSION: Lucencies within the right mandibular presumed location of absent of the molar and premolar teeth. Recommend dental consultation. The report was drafted by Ofe Aponte MD (president finance company) 03/04/2025 8:30 AM. > Dictated by Lighting Equipment Operator SINTIA Summary * There is a 1.16 cm x 0.78 cm mobile vegetation attached to the atrial surface of the anterior mitral valve leaflet tip (around the A2/A3 scallop tip). * There is moderate to severe mitral valve regurgitation with a very eccentric posterior jet that originates at the site of the vegetation. Mitral valve regurgitant volume is 30 ml regurgitant fraction is calculated 33%. 3-D ERO area is 0.36 cm2. Vena contracta width (2D) 0.42 cm. 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 * Agitated saline contrast study at rest and with Valsalva is negative for a shunt. * Normal left ventricular systolic function. Visually estimated LV EF is 55-60%. * Right ventricular systolic function is grossly normal. Panorex 03/04/25 FINDINGS: Multiple dental restorations are identified, and numerous teeth are absent. There are scattered dental caries. No acute mandibular fracture is identified. Both temporomandibular joints are intact. Lucencies within the right mandibular presumed location of absent of the molar and premolar teeth. IMPRESSION: Lucencies within the right mandibular presumed location of absent of the molar and premolar teeth. Recommend dental consultation. The report was drafted by Ofe Aponte MD (president finance company) 03/04/2025 8:30 AM. Carotid US completed 03/07/25 There is less than 50% stenosis of bilateral internal carotid arteries. Bilateral vertebral flow isantegrade. Renal US, completed 03/09 -IMPRESSION: 1.Hypoechoic structure within the right kidney measuring up to 1.1 cm without definite posterior enhancement. This may represent a complex cyst however a neoplastic process cannot be ruled out. Recommend cross-sectional imaging with the renal protocol for further evaluation. 2.There are 2 nonobstructive renal calculi within the right kidney. There is a complex cyst within the right kidney. 3.No hydronephrosis bilaterally. 4.Complex anechoic structure within the spleen, may represent a hematoma however cannot exclude other etiologies. Multiphase CT or MR imaging may be obtained for further evaluation if clinically indicated. CT Chest: -No CI to aortic manipulation 1.A few sub-5 mm nodules within bilateral upper lobes. No evidence of septic emboli. 2.Partially visualized 8.3 cm hypoattenuating area in the spleen, cannot be characterized on this noncontrast examination. Further evaluation with CT or MRI imaging recommended if clinically indicated. Will defer further work up above above CT findings to primary team Assessment and Plan: Patient with no acute changes overnight. In good spirits. DIAGNOSIS: Patient is a 64 year old male with past medical history for HTN, CKD w/ hx of nephrolithiasis, (obstructive, s/p stents), anemia of chronic, COPD, periodontal disease, and GERD who presented from OSH for surgical evaluation of his mitral valve endocarditis. Echo w/ MV vegetation 1x1.2cm w/ mild MR - transfer to [facility]. Patient is now afebrile, WBC stable at 11, Cr. Elevated at 3 (unclear baseline) upon admit. Surgeon Staffed: Maniar Surgery scheduled with Dr. Hernandez on 03/15/25 MV endocarditis E. Faecalis -SINTIA 03/07 with moderate to severe eccentric MR, posterior leaflet with restriction, mobile vegetation on the anterior leaflet - Splenic infarct - Abx ampicillin and ceftriaxone, ID managing. - Bcs from 03/04 NGTD - Last positive BC 03/02 Periodontal disease - mult teeth extracted 03/09 - denies pain, currently H/o obstructive renal calculi requiring intervention/stents - Renal US 03/09 reveals 2 nonobstructive renal calculi within the right kidney CKD stage 4 - Will likely need HD post surgery. - HD line to be placed in OR. - Nephrology following Testing pending: Repeat UA early next week. Amaris Brennan PA-C 03/11/2025 10:28 AM [1] Past Medical History: Diagnosis Date CKD (chronic kidney disease) COPD (chronic obstructive pulmonary disease) (HCC) GERD (gastroesophageal reflux disease) HTN (hypertension) Nephrolithiasis Obstructive uropathy [2] Past Surgical History: Procedure Laterality Date CYSTOSCOPY cystoscopy with ureteral stent placement ORAL SURGERY N/A 03/09/2025 N/A; EXTRACTION DENTAL (MULTIPLE) Retinal Detachment Repair Bilateral [3] Medications Prior to Admission Medication Sig Dispense Refill amLODIPine (Norvasc) 5 MG tablet Take 1 (one) tablet by mouth once daily metoprolol succinate XL 24hr (Toprol XL) 25 MG tablet Take 1 (one) tablet by mouth once daily montelukast (Singulair) 10 MG tablet Take 1 (one) tablet by mouth at bedtime omeprazole (PriLOSEC) 40 MG capsule Take 1 (one) capsule by mouth daily before breakfast [4] No Known Allergies [5] Family History Problem Relation Name Age of Onset COPD - Chronic Obstructive Pulmonary Disease Mother Renal Disease Father Cosigned by Rahul Hernandez MD at 03/22/2025 3:18 PM CDT Associated attestation - Rahul Hernandez MD - 03/22/2025 3:18 PM CDT I have reviewed the patient's medical record; I have seen and examined the patient with the TIFFANIE. I have discussed and directed the medical management /treatment and performed decision making for the patient's medical condition and take responsibility for management risk pertaining to this patient. I agree with the findings and plan of care as documented by the TIFFANIE. Rahul Hernandez MD. * Justyna Casiano - 03/11/2025 8:13 AM CDT Images from the original note were not included. [facility] INTERNAL MEDICINE PROGRESS NOTE Patient: Marshall Espinal Jr. Sex: male Age: [age] year old Date of : 1960 Date of Admission: 03/01/2025 Date: 03/11/2025 LOS: 10 SUBJECTIVE Interval History: NAEON. Pt remains stable. Pt received left cardiac cath was completed yesterday, no complications with surgery. He has no concerns this morning, he would like to shave his face which was confirmed with nursing. All questions were answered at bedside today. Hospital Course: Mr. Marshall Espinal is a 64 yo M with PMHx of HTN, CKD, COPD w h/o nephrolithiasis who presented to OSH for 2 weeks of left sided flank pain. At the OSH, CT Abd/pelvis order that showed complex, cystic lesion of the inferior left spleen and diverticulosis. Pt was transferred to [facility] for transition of care on 03/01. In the ED, pt was started on empiric vancomycin and zosyn. On 03/02, TTE was ordered for concerns of IE. TTE showed mild mitral regurgitation and 10 x 12 mm echodensity of anterior mitral valve leaflet. Blood cultures collected in the ED and OSH grew gram positive organisms and enterococcus faecalis on 03/03. On 03/03 ID, CTS, and ACS were consulted. Per blood results, ID switched patient antibiotics to ampicillin and ceftriaxone. Per CTS, a SINTIA is scheduled for 03/06 for follow up and further management of care. CTS also ordered a Panorex for potential work up of dental abscess on03/03 but was found to be unremarkable. ACS was consulted for concerns of splenic abscess but recommend against splenic drainage and signed off. On 03/04, ID ordered another blood culture for further evaluation. Preliminary result for blood cultures have come back for no growth so far 03/06. Pt received his SINTIA on 03/06. Dentistry was consulted for dental abscess on 03/06. SINTIA was read, concerns for large abscess on the mitral valve, CTS following and recommends urgent MV surgery with approval from nephrology, cardiology, dental, and ID. Per CTS and nephrology a VAS carotid duplex bilateral completed 03/09. Dental surgery performed 03/09. Cardiac Cath performed 03/10. CT chest Wo contrast performed03/10. OBJECTIVE Vital Signs: Vitals: 03/10/25 1303 03/10/25 1527 03/10/25 2014 03/11/25 0746 BP: 125/81 127/83 143/93 125/81 Pulse: 87 89 99 88 Resp: Temp: 96.5 ??F (35.8 ??C) 96.9 ??F (36.1 ??C) 97.8 ??F (36.6 ??C) 98.1 ??F (36.7 ??C) SpO2: 94% 100% 97% 99% Weight: Height: Temp Min: 96.3 ??F (35.7 ??C) Max: 98.5 ??F (36.9 ??C), Pulse Min: 80 Max: 114, Resp Min: 10 Max: 23, BP Min: 108/67 Max: 153/96 Intake & Output: In: 536 [P.O.:436; I.V.:100] Out: 3700 [Urine:3700] Physical Exam: Physical Exam Vitals and nursing note reviewed. Constitutional: Appearance: Normal appearance. He is normal weight. Cardiovascular: Rate and Rhythm: Normal rate and regular rhythm. Pulmonary: Effort: Pulmonary effort is normal. Breath sounds: Normal breath sounds. Abdominal: General: Abdomen is flat. Bowel sounds are normal. Palpations: Abdomen is soft. Skin: General: Skin is warm. Neurological: Mental Status: He is alert and oriented to person, place, and time. Psychiatric: Mood and Affect: Mood normal. Current Medications: Scheduled: Medications[1] Continuous: Medications[2] PRN: Medications[3] Microbiology: Microbiology Results (Displays last 21 days for this encounter ONLY) Procedure Component Value - Date/Time CULTURE BLOOD [[id number]] (Normal) Collected: 03/04/25 110 Lab Status: Final result Specimen: Blood Peripheral Updated: 03/09/25 1330 Culture No growth day 5 CULTURE BLOOD [[id number]] (Normal) Collected: 03/04/25 110 Lab Status: Final result Specimen: Blood Peripheral Updated: 03/09/25 1330 Culture No growth day 5 MRSA PCR [[id number]] (Normal) Collected: 03/02/25 0847 Lab Status: Final result Specimen: Microbiology from Nasal Updated: 03/02/25 1541 MRSA DNA by PCR Not detected Narrative: Methicillin-resistant Staphylococcus aureus (MRSA) DNA is not detected (presumed not colonized withMRSA). CULTURE BLOOD [[id number]] (Abnormal) Collected: 03/02/25532 Lab Status: Final result Specimen: Blood Peripheral Updated: 03/07/25 1038 Culture Growth of Enterococcus faecalis Gram Stain Gram-positive cocci pairs and chains Narrative: Positive at 28 Hours 19 Minutes Refer to previously reported susceptibility testing, specimen number:[id number] CULTURE BLOOD [[id number]] (Abnormal) (Susceptibility) Collected: 03/02/25532 Lab Status: Final result Specimen: Blood Peripheral Updated: 03/07/25 1038 Culture Growth of Enterococcus faecalis Gram Stain Gram-positive cocci pairs and chains Narrative: Positive at 22 Hours 44 Minutes Susceptibility Enterococcus faecalis (1) Antibiotic Interpretation Microscan Method Status Ampicillin Susceptible <=2 ug/mL LAVELLE Final Gentamicin 500 Susceptible SYN-S ug/mL LAVELLE Final Vancomycin Susceptible 2 ug/mL LAVELLE Final Susceptibility Comments Streptomycin Synergy susceptible predicts synergy between ampicillin, penicillin, or vancomycin plus streptomycin when isolates are susceptible to these agents. Combination therapy with ampicillin, penicillin or vancomycin(for susceptible strains) plus an aminoglycoside is usually indicated for serious enterococcal infections such as endocarditis, UNLESS high-level resistance to both gentamicin and streptomycin is documented. Gentamicin Synergy susceptible predicts synergy between ampicillin, penicillin, or vancomycin plus gentamicin when isolates are susceptible to these agents. Combination therapy with ampicillin, penicillin, or vancomycin (for susceptible strains) plus an aminoglycoside is usually indicated for serious enterococcal infections such as endocarditis UNLESS high-level resistance to both gentamicin and streptomycin is documented. Invasive enterococcal infections require combination therapy with susceptible agents. ID consultation is strongly recommended where available. BLOOD CULTURE ID PANEL [[id number]] (Abnormal) Collected: 03/02/2533 Lab Status: Final result Specimen: Blood Peripheral Updated: 03/03/25 1033 Enterococcus faecalis Detected Van A/B Vancomycin Resistance Not detected Comment: Results indicate vancomycin-susceptible Enterococcus faecalis. Nasir/B not detected. Narrative: Blood Culture ID Panel performed by [employer] multiplex PCR. The Test panel includes: Gram Positive Bacteria: Enterococcus faecalis, Enterococcus faecium, Listeria monocytogenes, Staphylococcus (genus), Staphylococcus aureus, Staphylococcus epidermidis, Staphylococcus lugdunensis, Streptococcus (genus), Streptococcus agalactiae (Group B), Streptococcus pneumoniae, Streptococcus pyogenes (Group A). Gram Negative Bacteria: Acinetobacter baumannii complex, Bacteroides fragilis, Haemophilus influenzae, Neisseria meningitidis (encapsulated), Pseudomonas aeruginosa, Stenotrophomonas maltophilia, Enterobacterales (formerly Enterobacteriaceae family), Enterobacter cloacae complex, Escherichia coli, K lebsiella (formerly Enterobacter) aerogenes, Klebsiella oxytoca, Klebsiella pneumoniae group, Proteus (genus), Salmonella species, Serratia marcescens. YEAST: Yesi albicans, Yesi auris, Yesi glabrata, Yesi krusei, Yesi parapsilosis, Yesi tropicalis, Cryptococcus neoformans/gattii. Antimicrobial Resistance Genes: CTX-M (extended-spectrum beta-lactamase), IMP ([place]allo beta-lactamase), KPC (carbapenemase), mcr-1 (colistin resistance determinant) mecA/C (methicillin-resistance), mecA/C and MREJ (methicillin- resistance - MRSA), NDM ([place] atecapy-mlzu-wchtvfikx), OXA-48-like ( oxacillinase beta-lactamase),Nasir/B (vancomycin-resistance), VIM (Sangeeta Intergrom-Encoded [place] beta-lactamase). Imaging & Studies: CT Chest Wo Constrast Findings: Evaluation of visceral and vascular structures is degraded due to lack of intravenous contrast administration. Lower Neck and Axillae: A few subcentimeter short axis supraclavicular lymph nodes, the largest one measuring 7 mm in the right. Lungs: Mild bilateral dependent atelectasis is present. 4 mm subpleural nodules within the right upper lung (series 4, image 30 and image 58). A 5 mm subpleural nodule is noted in the left lung apex (image 20, series 4) A few subcentimeter nodules along to bilateral major fissures, largest one measuring 6 mm in the right, likely represent perifissural lymph nodes. A calcified granuloma in the right upper lung. No pleural fluid or pneumothorax is present. Heart and Pericardium: The cardiac chambers are normal in size. No pericardial fluid or thickening is present. The coronary arteries are atherosclerotic. Mediastinum and Demetra: No mediastinal mass is present. Mildly prominent subcentimeter mediastinal lymph nodes are seen; however, there are no enlarged lymph nodes are present. Thoracic Vasculature: No vascular abnormality is present. Bones and Chest Wall: Bone windows demonstrate no suspicious lytic or blastic lesions. The visible osseous structures are intact. Degenerative changes are seen in the spine. Upper Abdomen: Partially visualized 8.3 cm hypoattenuating area in the spleen, difficult to characterize on this noncontrast examination. Impression: 1.A few sub-5 mm nodules within bilateral upper lobes. No evidence of septic emboli. 2.Partially visualized 8.3 cm hypoattenuating area in the spleen, cannot be characterized on this noncontrast examination. Further evaluation with CT or MRI imaging recommended if clinically indicated. Left Heart Cath Left Main The vessel was visualized by selective angiography, is moderate in size and is angiographically normal. Left Anterior Descending The vessel was visualized by selective angiography and is moderate in size. The vessel exhibits minimal luminal irregularities. Mid LAD lesion is 40% stenosed. Not the culprit lesion. BRO flow is 3. Ramus Intermedius The vessel was visualized by selective angiography and is moderate in size. The vessel exhibits minimal luminal irregularities. Left Circumflex The vessel was visualized by selective angiography and is moderate to large in size. There is mild diffuse disease throughout the vessel. Right Coronary Artery The vessel was visualized by selective angiography and is small to moderate in size. The vessel exhibits minimal luminal irregularities. ASSESSMENT & PLAN Abscess of spleen (POA: Yes) HTN (hypertension) (POA: Yes) Diverticulosis (POA: Yes) Enterococcal bacteremia (POA: Yes) Mitral valve vegetation (HCC) (POA: Yes) COPD (chronic obstructive pulmonary disease) (HCC) (POA: Yes) Endocarditis, suspected (POA: Yes) CKD (chronic kidney disease) stage 5, GFR less than 15 ml/min (HCC) (POA: Yes) #Abscess of Spleen #Diverticulosis #Bacteremia #Mitral Valve Vegetation #Endocarditis, suspected - CT Abd/Pelvis, OSH (02/28/25): New 8.1 x 5.2 x 5.1 cm relatively low- attentuation likely complex cystic lesion in the inferior spleen. This has developed since 12/05/2024 arguing against neoplasm and favring either subacute hematoma or abscess in the appropriate clinical setting. - Elevated WBC 13.2 at outside hospital, 11.4 this AM and afebrile - No pain on exam this AM, UA with no concern for infection so no reflex to culture - IR consulted for possible abscess, low suspicion of abscess based on imaging appearance. No indication for drainage at this time; if patient clinically worsens, could consider MRI w/ contrast but not currently indicated - Imaging finding likely splenic hematoma vs cyst - ACS consulted but low suspicion of abscess, given TTE results suggesting more secondary to infectious endocarditis - Per ID request and positive lab cultures for enterococcus faecalis, vancomycin and zosyn were stopped, ID recommends continuing ampicilin and ceftriaxone - Repeat blood cultures preliminary results showed no growth - SINTIA came back for large vegetation on mitral valve with severe mitral regurgitation. Per SINTIA, CTSrecommends multi team consult for approved recs to follow on surgery - Repeated Blood Cultures ordered, no growth on preliminary results, MRSA negative - Dental surgery completed, 9 teeth were pulled. - Renal ultrasound currently unremarkable for inpatient treatment. Will follow up results outpatient, once pt is discharged - Cardiology following, left cardiac cath performed 03/10. Pt still safe and stable to proceed with surgery PLAN: - Continue ampicillin and ceftriaxone per ID recs - CTS follows per SINTIA, request consults from dental (for tooth extraction), cardiology (for left cardiac cath prior to MV surgery), ID (for source of infection and appreciate antibiotic recs), nephrology (recs for MV surgery in setting of improved renal function) - CTS scheduled surgery 03/15, would still like to do multicenter rounds awhile awaiting MV surgery - Nephrology consulted, pt is safe to proceed with MV surgery - pt started on incentive spirometry for prevention of pneumonia - PT/OT consulted for CTS Pre-OP evaluation #HTN - Continue home medication of Metoprolol succinate 25 mg and amlodipine 5 mg #COPD - Home meds include Trelegy, fluticasone propionate PLAN: - Incruse and symbicort while in-patient #CKD - avoid nephrotoxic agents and continue tight control of blood pressures - nephrology consulted, pt should proceed with cath and MV surgery Code: Full Code Diet: Diet Regular after procedure Electrolytes: Replete PRN PPx: SCDs only Dispo: 5 - 7 The above assessment and plan will be discussed with the attending. This note is not final until attested by attending physician. Justyna Casiano MS3 [facility] 03/11/2025 8:13 AM [1] 0.9% NaCl 3 mL Intracatheter q8h amLODIPine 5 mg Oral QDAY ampicillin 2 g Intravenous q8h budesonide-formoterol 2 puff Inhalation BID And umeclidinium 1 puff Inhalation QDAY cefTRIAXone 2 g Intravenous q12h [Held by Provider] heparin 5,000 Units Subcutaneous q8h melatonin 3 mg Oral AT BEDTIME metoprolol succinate XL 24hr 25 mg Oral AT BEDTIME montelukast 10 mg Oral AT BEDTIME pantoprazole EC 40 mg Oral QDAY polyethylene glycol 3350 17 g Oral QDAY senna 8.6 mg Oral QDAY [2] [3] SALINE LOCK, INSERT AND MAINTAIN AND 0.9% NaCl AND 0.9% NaCl acetaminophen dextrose IV for hypoglycemia OR dextrose IV for hypoglycemia OR glucagon fluticasone propionate glucose (Diabetic Use) gel Cosigned by Adalberto Arroyo MD at 03/11/2025 12:37 PM CDT Associated attestation - Adalberto Arroyo MD - 03/11/2025 12:37 PM CDT This note is for educational purpose only, please see attestation associated with resident note. Adalberto Arroyo MD 03/11/2025 12:37 PM * Peewee Merino RN - 03/10/2025 6:49 PM CDT Problem: Pain/Discomfort Goal: Patient exhibits reduced pain/discomfort as evidenced by pain scores Outcome: Progressing Goal: Patient uses pharmacological and non-pharmacological pain management strategies. Outcome: Progressing Goal: Patient verbalizes acceptable level of pain relief and ability to engage in desired activity. Outcome: Progressing Problem: Medication Adherence Goal: Consistently take medications as prescribed Outcome: Progressing Problem: Neurosensory - Adult Goal: Achieves stable or improved neurological status Description: INTERVENTIONS Outcome: Progressing Goal: Remains free of injury related to seizures activity Description: INTERVENTIONS: Outcome: Progressing Goal: Achieves maximal functionality and self care Description: INTERVENTIONS: Outcome: Progressing Problem: Respiratory - Adult Goal: Achieves optimal ventilation and oxygenation Description: INTERVENTIONS: Outcome: Progressing Problem: Cardiovascular - Adult Goal: Maintains optimal cardiac output and hemodynamic stability Description: INTERVENTIONS: Outcome: Progressing Goal: Absence of cardiac dysrhythmias or at baseline Description: INTERVENTIONS: Outcome: Progressing Problem: Skin/Tissue Integrity - Adult Goal: Skin integrity remains intact Description: INTERVENTIONS: Outcome: Progressing Goal: Incisions, wounds, or drain sites healing without S/S of infection Description: INFECTIONS: Outcome: Progressing Goal: Oral mucous membranes remain intact Description: INTERVENTIONS: Outcome: Progressing Problem: Neurovascular Musculoskeletal - Adult Goal: Return mobility to safest level of function Description: INTERVENTIONS: Outcome: Progressing Goal: Maintain proper alignment of affected body part Description: INTERVENTIONS: Outcome: Progressing Goal: Return ADL status to a safe level of function Description: INTERVENTIONS: Outcome: Progressing Goal: Absence or reduction of edema Description: INTERVENTIONS Outcome: Progressing Goal: Maintains or improves tissue perfusion Description: INTERVENTIONS Outcome: Progressing Problem: Gastrointestinal - Adult Goal: Minimal or absence of nausea and vomiting Description: INTERVENTIONS: Outcome: Progressing Goal: Maintains or returns to baseline bowel function Description: INTERVENTIONS: Outcome: Progressing Goal: Maintains adequate nutritional intake Description: INTERVENTIONS: Outcome: Progressing Problem: Genitourinary - Adult Goal: Maintains or returns to baseline genitourinary function Description: INTERVENTIONS: Outcome: Progressing Goal: Urinary catheter remains patent Description: INTERVENTIONS: Outcome: Progressing Problem: Infection - Adult Goal: Infections are decreased or avoided Description: INTERVENTIONS: Outcome: Progressing Problem: Metabolic/Fluid and Electrolytes - Adult Goal: Electrolytes maintained within normal limits Description: INTERVENTIONS: Outcome: Progressing Goal: Hemodynamic stability and optimal renal function maintained Description: INTERVENTIONS: Outcome: Progressing Goal: Glucose maintained within prescribed range Description: INTERVENTIONS: Outcome: Progressing Problem: Hematologic - Adult Goal: Maintains hematologic stability Description: INTERVENTIONS: Outcome: Progressing Problem: Fall Risk Goal: Fall risk and fall related injury risk are minimized (interventions related to the fall risk can be found in the flowsheet documentation) Outcome: Progressing * Cj Carpenter MD - 03/10/2025 11:55 AM CDT Images from the original note were not included. [facility] Internal Medicine Progress Note Name: Marshall Espinal Jr. Room/Bed: Quality Assurance Pool/NONE : 1960 65 year old PCP: Provider Unknown Admit Date/Time: 03/01/2025 9:44 PM LOS: 9 Subjective Interval update: NAEON. Pt remains stable. States pain is well improved from dental surgery yesterday. VAS carotid duplex bilateral US and renal ultrasound completed and read. Cardiac cath procedure completed today. All questions were answered at bedside today. Hospital course: Marshall Espinal is a 64 year old male with PMHx of HTN, CKD, COPD, hx of recurrent nephrolithiasiswho presents from an OSH ([place]) for a splenic abscess. Pain on left side had been happening for2 weeks. Patient has a history of kidney stones and had similar symptoms in the past, so he thoughtit was another occurrence of a kidney stone. He was seen as [facility] and was told that he was going to have imaging done to rule out kidney stones, and was found to have a splenic abscess and diverticulitis. Patient reports no prior history of diverticulitis. Patient denied any issues withtrauma to his left side with respect to the splenic abscess, and he did not notice any new changes to his bowel habits. Patient reported that he was only taking Pepto bismol for his pain. Patient otherwise well on exam with no fevers. IR consutled on admission, did not feel strongly that it was an abscess and recommended against drainage. Underwent ECHO 03/02 which revealed an echodensity 10 mm x12 mm attached to the anterior mitral leaflet, possible differential includes vegetation, torn chord ae. Cardiology was consulted, and SINTIA ordered. Blood cultures from OSH revealed 1/2 cultures positive stain for gram positive cocci. Repeat blood cultures collected at [facility] revealed similar findings,1/2 positive for gram cocci in pairs and chains and later positive for enterococci on 03/03. Infectious disease consulted for recommendations regarding bacteremia with unclear source. On 03/04, ID ordered another blood culture for further evaluation. Preliminary result for blood cultures have come back for no growth so far 03/06. Pt received his SINTIA on 03/06. Dentistry was consulted for dental abscess on 03/06. SINTIA was read, concerns for large abscess on the mitral valve, CTS following and recommends urgent MV surgery with approval from nephrology, cardiology, dental, and ID. Plan for multidisplinary rounds on 03/08, following dental surgery for approval of MV surgery. Per CTS and nephrology a VAS carotid duplex bilateral and renal ultrasound was conducted 03/08. Dental surgery performed 03/09. Cardiac Cath performed 03/10. Objective Temp: [97.2 ??F (36.2 ??C)-98.3 ??F (36.8 ??C)] 98.3 ??F (36.8 ??C) Pulse: [80-103] 82 Resp: [-] 14 BP: (128-153)/(84-105) 135/92 Weight change: Intake/Output Summary (Last 24 hours) at 03/10/2025 1245 Last data filed at 03/10/2025 0530 Gross per 24 hour Intake 500 ml Output 1750 ml Net -1250 ml Physical Exam: Physical Exam Constitutional: General: He is not in acute distress. Appearance: Normal appearance. He is not ill-appearing. HENT: Head: Normocephalic and atraumatic. Mouth/Throat: Mouth: Mucous membranes are moist. Pharynx: No oropharyngeal exudate or posterior oropharyngeal erythema. Comments: Multiple missing teeth, dental caries Eyes: General: No scleral icterus. Extraocular Movements: Extraocular movements intact. Conjunctiva/sclera: Conjunctivae normal. Cardiovascular: Rate and Rhythm: Normal rate and regular rhythm. Pulses: Normal pulses. Heart sounds: Normal heart sounds. No murmur heard. Pulmonary: Effort: Pulmonary effort is normal. No respiratory distress. Breath sounds: Normal breath sounds. No wheezing. Abdominal: General: Abdomen is flat. Bowel sounds are normal. There is no distension. Palpations: Abdomen is soft. Tenderness: There is no abdominal tenderness. There is no guarding. Comments: Musculoskeletal: General: No swelling, tenderness or deformity. Skin: General: Skin is warm and dry. Coloration: Skin is not jaundiced. Findings: No bruising. Neurological: General: No focal deficit present. Mental Status: He is alert and oriented to person, place, and time. Mental status is at baseline. Cranial Nerves: No cranial nerve deficit. Sensory: No sensory deficit. Psychiatric: Mood and Affect: Mood normal. Behavior: Behavior normal. Scheduled Medications: Medications[1] PRN Medications: Medications[2] Continuous Infusions: Medications[3] Laboratory Data Recent Labs Component Name 03/10/25 0603/09/2544503/08/25 0505 WBC 10.9* 11.0* 12.1* HGB 8.7* 8.9* 9.3* HCT 26.8* 29.0* 29.4* PLTCOUNT 502* 548* 557* MCV 87.3 89.2 85.5 Recent Labs Component Name 03/08/25 0505 PT 14.0 INR 1.1 Recent Labs Component Name 03/10/25 0603/09/255 03/08/25 0506 NA 137 137 136 POTASSIUM 4.4 4.1 4.1 CL 109* 109* 107 CO2 19* 20* 20* BUN 32* 35* 32* CREATININE 3.09* 3.18* 3.25* Recent Labs Component Name 03/10/25 0605 03/09/25 0445 03/08/25 0506 CALCIUM 9.2 9.1 9.6 PHOS 4.4 4.3 4.2 Recent Labs Component Name 03/10/25 0605 03/09/25 0445 03/08/25 0506 PROT 7.7 7.8 8.3 ALB 3.0* 3.0* 3.2* ALKPHOS 127 141 152* AST 10 13 11 ALT 7 8 11 TBILI 0.2 0.1* 0.1* No results for input(s): CKTOTAL, CKMBCK2, TROPONINI in the last 53545 hours. Recent Labs Component Name 03/03/25 0500 VANCORNDM 17.1 Microbiology Results (Displays last 21 days for this encounter ONLY) Procedure Component Value - Date/Time CULTURE BLOOD [[id number]] (Normal) Collected: 03/04/25 110 Lab Status: Final result Specimen: Blood Peripheral Updated: 03/09/25 1330 Culture No growth day 5 CULTURE BLOOD [[id number]] (Normal) Collected: 03/04/251108 Lab Status: Final result Specimen: Blood Peripheral Updated: 03/09/25 1330 Culture No growth day 5 MRSA PCR [[id number]] (Normal) Collected: 03/02/25 0847 Lab Status: Final result Specimen: Microbiology from Nasal Updated: 03/02/25 1541 MRSA DNA by PCR Not detected Narrative: Methicillin-resistant Staphylococcus aureus (MRSA) DNA is not detected (presumed not colonized withMRSA). CULTURE BLOOD [[id number]] (Abnormal) Collected: 03/02/25532 Lab Status: Final result Specimen: Blood Peripheral Updated: 03/07/25 1038 Culture Growth of Enterococcus faecalis Gram Stain Gram-positive cocci pairs and chains Narrative: Positive at 28 Hours 19 Minutes Refer to previously reported susceptibility testing, specimen number:[id number] CULTURE BLOOD [[id number]] (Abnormal) (Susceptibility) Collected: 03/02/25532 Lab Status: Final result Specimen: Blood Peripheral Updated: 03/07/25 1038 Culture Growth of Enterococcus faecalis Gram Stain Gram-positive cocci pairs and chains Narrative: Positive at 22 Hours 44 Minutes Susceptibility Enterococcus faecalis (1) Antibiotic Interpretation Microscan Method Status Ampicillin Susceptible <=2 ug/mL LAVELLE Final Gentamicin 500 Susceptible SYN-S ug/mL LAVELLE Final Vancomycin Susceptible 2 ug/mL LAVELLE Final Susceptibility Comments Streptomycin Synergy susceptible predicts synergy between ampicillin, penicillin, or vancomycin plus streptomycin when isolates are susceptible to these agents. Combination therapy with ampicillin, penicillin or vancomycin(for susceptible strains) plus an aminoglycoside is usually indicated for serious enterococcal infections such as endocarditis, UNLESS high-level resistance to both gentamicin and streptomycin is documented. Gentamicin Synergy susceptible predicts synergy between ampicillin, penicillin, or vancomycin plus gentamicin when isolates are susceptible to these agents. Combination therapy with ampicillin, penicillin, or vancomycin (for susceptible strains) plus an aminoglycoside is usually indicated for serious enterococcal infections such as endocarditis UNLESS high-level resistance to both gentamicin and streptomycin is documented. Invasive enterococcal infections require combination therapy with susceptible agents. ID consultation is strongly recommended where available. BLOOD CULTURE ID PANEL [[id number]] (Abnormal) Collected: 03/02/25 0533 Lab Status: Final result Specimen: Blood Peripheral Updated: 03/03/25 1033 Enterococcus faecalis Detected Van A/B Vancomycin Resistance Not detected Comment: Results indicate vancomycin-susceptible Enterococcus faecalis. Nasir/B not detected. Narrative: Blood Culture ID Panel performed by [employer] multiplex PCR. The Test panel includes: Gram Positive Bacteria: Enterococcus faecalis, Enterococcus faecium, Listeria monocytogenes, Staphylococcus (genus), Staphylococcus aureus, Staphylococcus epidermidis, Staphylococcus lugdunensis, Streptococcus (genus), Streptococcus agalactiae (Group B), Streptococcus pneumoniae, Streptococcus pyogenes (Group A). Gram Negative Bacteria: Acinetobacter baumannii complex, Bacteroides fragilis, Haemophilus influenzae, Neisseria meningitidis (encapsulated), Pseudomonas aeruginosa, Stenotrophomonas maltophilia, Enterobacterales (formerly Enterobacteriaceae family), Enterobacter cloacae complex, Escherichia coli, K lebsiella (formerly Enterobacter) aerogenes, Klebsiella oxytoca, Klebsiella pneumoniae group, Proteus (genus), Salmonella species, Serratia marcescens. YEAST: Yesi albicans, Yesi auris, Yesi glabrata, Yesi krusei, Yesi parapsilosis, Yesi tropicalis, Cryptococcus neoformans/gattii. Antimicrobial Resistance Genes: CTX-M (extended-spectrum beta-lactamase), IMP ([place]allo beta-lactamase), KPC (carbapenemase), mcr-1 (colistin resistance determinant) mecA/C (methicillin-resistance), mecA/C and MREJ (methicillin- resistance - MRSA), NDM ([place] [id number]), OXA-48-like ( oxacillinase beta-lactamase),Nasir/B (vancomycin-resistance), VIM (Sangeeta Intergrom-Encoded [place] beta-lactamase). Imaging US Retroperitoneal 03/09: IMPRESSION: 1.Hypoechoic structure within the right kidney measuring up to 1.1 cm without definite posterior enhancement. This may represent a complex cyst however a neoplastic process cannot be ruled out. Recommend cross-sectional imaging with the renal protocol for further evaluation. 2.There are2 nonobstructive renal calculi within the right kidney. There is a complex cyst within the right kidney. 3.No hydronephrosis bilaterally. 4.Complex anechoic structure within the spleen, may representa hematoma however cannot exclude other etiologies. Multiphase CT or MR imaging may be obtained forfurther evaluation if clinically indicated. VAS Carotid Duplex BL 03/07 There is less than 50% stenosis of bilateral internal carotid arteries. Bilateral vertebral flow isantegrade. ECHO SINTIA 03/06 Summary: * There is a 1.16 cm x 0.78 cm mobile vegetation attached to the atrial surface of the anterior mitral valve leaflet tip (around the A2/A3 scallop tip). * There is moderate to severe mitral valve regurgitation with a very eccentric posterior jet that originates at the site of the vegetation. Mitral valve regurgitant volume is 30 ml regurgitant fraction is calculated 33%. 3-D ERO area is 0.36 cm2. Vena contracta width (2D) 0.42 cm. 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 * Agitated saline contrast study at rest and with Valsalva is negative for a shunt. * Normal left ventricular systolic function. Visually estimated LV EF is 55-60%. * Right ventricular systolic function is grossly normal. XR Panorex 03/03: FINDINGS: Multiple dental restorations are identified, and numerous teeth are absent. There are scattered dental caries. No acute mandibular fracture is identified. Both temporomandibular joints are intact. Lucencies within the right mandibular presumed location of absent of the molar and premolar teeth. IMPRESSION: Lucencies within the right mandibular presumed location of absent of the molar and premolar teeth. Recommend dental consultation. Relevant labs and imaging data reviewed on [facility]. Assessment and Plan Abscess of spleen (POA: Yes) HTN (hypertension) (POA: Yes) Diverticulosis (POA: Yes) Enterococcal bacteremia (POA: Yes) Mitral valve vegetation (HCC) (POA: Yes) COPD (chronic obstructive pulmonary disease) (HCC) (POA: Yes) Endocarditis, suspected (POA: Yes) CKD (chronic kidney disease) stage 5, GFR less than 15 ml/min (HCC) (POA: Yes) Assessment & Plan Abscess of spleen Diverticulosis Enterococcal bacteremia Mitral valve vegetation (HCC) Endocarditis, suspected - CT Abd/Pelvis, OSH (02/28/25): New 8.1 x 5.2 x 5.1 cm relatively low- attentuation likely complex cystic lesion in the inferior spleen. This has developed since 12/05/2024 arguing against neoplasm and favring either subacute hematoma or abscess in the appropriate clinical setting. - Elevated WBC 13.2 at outside hospital, 11.4 this AM and afebrile - IR consulted for possible abscess, low suspicion of abscess based on imaging appearance. No indication for drainage at this time; if patient clinically worsens, could consider MRI w/ contrast but not currently indicated. Imaging finding likely splenic hematoma vs cyst - UA with no concern for infection so no reflex to culture - Blood cultures from OSH revealed 1/2 cultures positive stain for gram positive cocci. Repeat blood cultures collected here revealed similar findings, 1/2 positive for gram cocci in pairs and chainsand later positive for enterococci faecalis - TTE revealed an echodensity 10 mm x 12 mm attached to the anterior mitral leaflet, possible differential includes vegetation, torn chordae. - Denies any IVDU, other drug use - Had tooth extraction 3 months ago, was scheduled for additional tooth extraction on 02/27 but missed while admitted - IR consulted for possible abscess, low suspicion of abscess based on imaging appearance. No indication for drainage at this time; if patient clinically worsens, could consider MRI w/ contrast but not currently indicated - Imaging finding likely splenic hematoma vs cyst - ACS consulted but low suspicion of abscess, given TTE results suggesting more secondary to infectious endocarditis - Per ID request and positive lab cultures for enterococcus faecalis, vancomycin and zosyn were stopped - MRSA negative - SINTIA came back for large vegetation on mitral valve with severe mitral regurgitation. Per SINTIA, CTSrecommends multi team consult for approved recs to follow on surgery - Repeated Blood Cultures ordered, no growth on preliminary results - Renal ultrasound currently unremarkable for inpatient treatment. Will follow up results outpatient, once pt is discharged - 03/09 Dental surgery completed, 9 teeth were pulled. PLAN: - Continue ampicillin and ceftriaxone per ID recs - CTS follows per SINTIA, request consults from dental (for tooth extraction), cardiology (for left cardiac cath prior to MV surgery), ID (for source of infection and appreciate antibiotic recs), nephrology (recs for MV surgery in setting of improved renal function) - CTS scheduled surgery 03/15, would still like to do multicenter rounds awhile awaiting MV surgery - Cardiology following, left cardiac cath performed 03/09 - Nephrology consulted, pt is safe to proceed with MV surgery - pt started on incentive spirometry for prevention of pneumonia HTN (hypertension) - Home Rx: Metoprolol succinate 25 mg PO QHS, amlodipine 5 mg PO QD - BP stable, 119-126 systolic this AM PLAN: - Continue metoprolol succinate 25 - amLODIPine (Norvasc) tablet 5 mg COPD (chronic obstructive pulmonary disease) ([facility]) - Home meds include Trelegy, fluticasone propionate PLAN: - Incruse and symbicort while in-patient CKD (chronic kidney disease) stage 5, GFR less than 15 ml/min ([facility]) Cr-3.44-3.62 PLAN: - avoid nephrotoxic agents and continue tight control of blood pressures - nephrology consulted, pt should proceed with cath and MV surgery Incidental findings requiring follow up: Retroperitoneal US showed a 1.1 cm hypoechoic structure in the right kidney, possibly a complex cyst but neoplasm cannot be ruled out. Two nonobstructive renal stones also noted. Recommend renal protocol CT for further evaluation. Needs OP follow-up. Diet: DIET NPO Except: SIPS WITH MEDS DVT Prophylaxis: SCDs only Code Status: Full Code [place] Candidate?: No Electronically Signed By: Cj Carpenter MD 03/10/2025 12:45 PM The above assessment and plan will be discussed with attending physician. This note is not final until attested by the attending physician. [1] 0.9% NaCl 3 mL Intracatheter q8h [Transfer Hold] amLODIPine 5 mg Oral QDAY ampicillin 2 g Intravenous q8h [Transfer Hold] budesonide-formoterol 2 puff Inhalation BID And [Transfer Hold] umeclidinium 1 puff Inhalation QDAY cefTRIAXone 2 g Intravenous q12h [Held by Provider] heparin 5,000 Units Subcutaneous q8h [Transfer Hold] melatonin 3 mg Oral AT BEDTIME metoprolol succinate XL 24hr 25 mg Oral AT BEDTIME [Transfer Hold] montelukast 10 mg Oral AT BEDTIME [Transfer Hold] pantoprazole EC 40 mg Oral QDAY [Transfer Hold] polyethylene glycol 3350 17 g Oral QDAY [Transfer Hold] senna 8.6 mg Oral QDAY [2] SALINE LOCK, INSERT AND MAINTAIN AND 0.9% NaCl AND 0.9% NaCl [Transfer Hold] acetaminophen dextrose IV for hypoglycemia OR dextrose IV for hypoglycemia OR glucagon fentaNYL (PF) [Transfer Hold] fluticasone propionate glucose (Diabetic Use) gel heparin 5,000 Units, niCARdipine (Cardene) 200 mcg, nitroGLYCERIN 200 mcg 3.1 mL lidocaine midazolam [3] dextrose 5 % and lactated ringers, , Last Rate: 100 mL/hr at 03/10/25 0019 Cosigned by Adalberto Arroyo MD at 03/10/2025 2:00 PM CDT Associated attestation - Adalberto Arroyo MD - 03/10/2025 2:00 PM CDT I have seen and examined the patient with the resident and I agree with the findings and plan of care as documented by the resident. In addition: - patient planned for [facility] today - s/p dental extraction on 03/10/2025. Date of Service: 03/10/2025 Adalberto Arroyo MD * Marianna May RD/JAMAL - 03/10/2025 10:43 AM CDT Clinical Nutrition Nutrition Recommendations: No acute nutrition related issues identified at this time. Comments: Pt screened due to length of stay. Intake appears adequate per documentation, consuming 100% of meals. No difficulties eating noted. Last BM unknown. No nutritionally impacting skin issues noted. P.O.Intake for the past 48 hrs:No data recorded Admission weight: Weight: 81 kg (178 lb 8 oz) (03/01/252199) Filed Wts: 03/01/252199 Weight: 81 kg (178 lb 8 oz) Height: 170.2 cm (5' 7) IBW/lb (Calculated) Male: 148 , BMI: Body mass index is 27.96 kg/m??. Laboratory values reviewed. Medications noted. Will continue to monitor per Clinical Nutrition guidelines. [id number] * Casiano Justyna - 03/10/2025 10:32 AM CDT Images from the original note were not included. [facility] INTERNAL MEDICINE PROGRESS NOTE Patient: Marshall Espinal Jr. Sex: male Age: [age] year old Date of : 1960 Date of Admission: 03/01/2025 Date: 03/10/2025 LOS: 9 SUBJECTIVE Interval History: NAEON. Pt remains stable. States pain is well improved from dental surgery yesterday. VAS carotid duplex bilateral US and renal ultrasound completed and read. Cardiac cath procedure completed today. All questions were answered at bedside today. Hospital Course: Mr. Marshall Espinal is a 64 yo M with PMHx of HTN, CKD, COPD w h/o nephrolithiasis who presented to OSH for 2 weeks of left sided flank pain. At the OSH, CT Abd/pelvis order that showed complex, cystic lesion of the inferior left spleen and diverticulosis. Pt was transferred to [facility] for transition of care on 03/01. In the ED, pt was started on empiric vancomycin and zosyn. On 03/02, TTE was ordered for concerns of IE. TTE showed mild mitral regurgitation and 10 x 12 mm echodensity of anterior mitral valve leaflet. Blood cultures collected in the ED and OSH grew gram positive organisms and enterococcus faecalis on 03/03. On 03/03 ID, CTS, and ACS were consulted. Per blood results, ID switched patient antibiotics to ampicillin and ceftriaxone. Per CTS, a SINTIA is scheduled for 03/06 for follow up and further management of care. CTS also ordered a Panorex for potential work up of dental abscess on03/03 but was found to be unremarkable. ACS was consulted for concerns of splenic abscess but recommend against splenic drainage and signed off. On 03/04, ID ordered another blood culture for further evaluation. Preliminary result for blood cultures have come back for no growth so far 03/06. Pt received his SINTIA on 03/06. Dentistry was consulted for dental abscess on 03/06. SINTIA was read, concerns for large abscess on the mitral valve, CTS following and recommends urgent MV surgery with approval from nephrology, cardiology, dental, and ID. Per CTS and nephrology a VAS carotid duplex bilateral completed 03/09. Dental surgery performed 03/09. Cardiac Cath performed 03/10. OBJECTIVE Vital Signs: Vitals: 03/10/25 0921 03/10/25 0926 03/10/25 0930 03/10/25 0945 BP: 153/96 142/92 151/92 Pulse: 90 86 83 Resp: 10 10 16 Temp: 98.3 ??F (36.8 ??C) SpO2: 99% 99% 99% Weight: Height: Temp Min: 96.3 ??F (35.7 ??C) Max: 98.5 ??F (36.9 ??C), Pulse Min: 82 Max: 114, Resp Min: 10 Max: 23, BP Min: 108/67 Max: 153/96 Intake & Output: In: 500 [I.V.:500] Out: 1750 [Urine:1750] Physical Exam: Physical Exam Constitutional: Appearance: Normal appearance. He is normal weight. Cardiovascular: Rate and Rhythm: Normal rate and regular rhythm. Pulmonary: Effort: Pulmonary effort is normal. Breath sounds: Normal breath sounds. Abdominal: General: Abdomen is flat. Palpations: Abdomen is soft. Skin: General: Skin is warm. Neurological: General: No focal deficit present. Mental Status: He is alert and oriented to person, place, and time. Psychiatric: Mood and Affect: Mood normal. Current Medications: Scheduled: Medications[1] Continuous: Medications[2] PRN: Medications[3] Microbiology: Microbiology Results (Displays last 21 days for this encounter ONLY) Procedure Component Value - Date/Time CULTURE BLOOD [[id number]] (Normal) Collected: 03/04/25 1109 Lab Status: Final result Specimen: Blood Peripheral Updated: 03/09/25 1330 Culture No growth day 5 CULTURE BLOOD [[id number]] (Normal) Collected: 03/04/25 1109 Lab Status: Final result Specimen: Blood Peripheral Updated: 03/09/25 1330 Culture No growth day 5 MRSA PCR [[id number]] (Normal) Collected: 03/02/25 0847 Lab Status: Final result Specimen: Microbiology from Nasal Updated: 03/02/25 1541 MRSA DNA by PCR Not detected Narrative: Methicillin-resistant Staphylococcus aureus (MRSA) DNA is not detected (presumed not colonized withMRSA). CULTURE BLOOD [[id number]] (Abnormal) Collected: 03/02/25532 Lab Status: Final result Specimen: Blood Peripheral Updated: 03/07/25 1038 Culture Growth of Enterococcus faecalis Gram Stain Gram-positive cocci pairs and chains Narrative: Positive at 28 Hours 19 Minutes Refer to previously reported susceptibility testing, specimen number:[id number] CULTURE BLOOD [[id number]] (Abnormal) (Susceptibility) Collected: 03/02/25532 Lab Status: Final result Specimen: Blood Peripheral Updated: 03/07/25 1038 Culture Growth of Enterococcus faecalis Gram Stain Gram-positive cocci pairs and chains Narrative: Positive at 22 Hours 44 Minutes Susceptibility Enterococcus faecalis (1) Antibiotic Interpretation Microscan Method Status Ampicillin Susceptible <=2 ug/mL LAVELLE Final Gentamicin 500 Susceptible SYN-S ug/mL LAVELLE Final Vancomycin Susceptible 2 ug/mL LAVELLE Final Susceptibility Comments Streptomycin Synergy susceptible predicts synergy between ampicillin, penicillin, or vancomycin plus streptomycin when isolates are susceptible to these agents. Combination therapy with ampicillin, penicillin or vancomycin(for susceptible strains) plus an aminoglycoside is usually indicated for serious enterococcal infections such as endocarditis, UNLESS high-level resistance to both gentamicin and streptomycin is documented. Gentamicin Synergy susceptible predicts synergy between ampicillin, penicillin, or vancomycin plus gentamicin when isolates are susceptible to these agents. Combination therapy with ampicillin, penicillin, or vancomycin (for susceptible strains) plus an aminoglycoside is usually indicated for serious enterococcal infections such as endocarditis UNLESS high-level resistance to both gentamicin and streptomycin is documented. Invasive enterococcal infections require combination therapy with susceptible agents. ID consultation is strongly recommended where available. BLOOD CULTURE ID PANEL [[id number]] (Abnormal) Collected: 03/02/25532 Lab Status: Final result Specimen: Blood Peripheral Updated: 03/03/25 1033 Enterococcus faecalis Detected Van A/B Vancomycin Resistance Not detected Comment: Results indicate vancomycin-susceptible Enterococcus faecalis. Nasir/B not detected. Narrative: Blood Culture ID Panel performed by [employer] multiplex PCR. The Test panel includes: Gram Positive Bacteria: Enterococcus faecalis, Enterococcus faecium, Listeria monocytogenes, Staphylococcus (genus), Staphylococcus aureus, Staphylococcus epidermidis, Staphylococcus lugdunensis, Streptococcus (genus), Streptococcus agalactiae (Group B), Streptococcus pneumoniae, Streptococcus pyogenes (Group A). Gram Negative Bacteria: Acinetobacter baumannii complex, Bacteroides fragilis, Haemophilus influenzae, Neisseria meningitidis (encapsulated), Pseudomonas aeruginosa, Stenotrophomonas maltophilia, Enterobacterales (formerly Enterobacteriaceae family), Enterobacter cloacae complex, Escherichia coli, K lebsiella (formerly Enterobacter) aerogenes, Klebsiella oxytoca, Klebsiella pneumoniae group, Proteus (genus), Salmonella species, Serratia marcescens. YEAST: Yesi albicans, Yesi auris, Yesi glabrata, Yesi krusei, Yesi parapsilosis, Yesi tropicalis, Cryptococcus neoformans/gattii. Antimicrobial Resistance Genes: CTX-M (extended-spectrum beta-lactamase), IMP ([place]allo beta-lactamase), KPC (carbapenemase), mcr-1 (colistin resistance determinant) mecA/C (methicillin-resistance), mecA/C and MREJ (methicillin- resistance - MRSA), NDM ([place] fbnftch-tdpm-obrgqumwr), OXA-48-like ( oxacillinase beta-lactamase),Nasir/B (vancomycin-resistance), VIM (Sangeeta Intergrom-Encoded [place] beta-lactamase). Imaging & Studies: Us Retroperitoneal Complete 03/09 FINDINGS: Right kidney: 10.9 x 5.6 x 6.3 cm Left kidney: 7.3 x 8.1 x 5.6 cm The renal parenchymal echogenicity is normal. There is right-sided caliectasis. Within the inferior pole of the right kidney there appears to be a complex cyst with septation that measures 3.6 x 2.4 x 3.2 cm. There is a hypoechoic structure within the interpolar region of the right kidney that measures 1.1 x 0.9 x 0.9 cm. This structure doesn't definitely demonstrate posterior acoustic enhancement. There are 2 hyperechoic structures in the right kidney measuring up to 4 mm that likely represent nonobstructive renal calculi. Within the left kidney there is a cyst that measures 0.8 x 0.5 x 0.6 cm. There is no hydronephrosis bilaterally. Blood flow is seen within the renal arteries and veins. The bladder is distended and appears normal. Incidentally, an anechoic structure measuring 8.1 x 4.5 x 7.3 cm is seen within the spleen with internal echoes. The structure does not demonstrate rim hyperemia to suggest an splenic abscess. IMPRESSION: 1.Hypoechoic structure within the right kidney measuring up to 1.1 cm without definite posterior enhancement. This may represent a complex cyst however a neoplastic process cannot be ruled out. Recommend cross-sectional imaging with the renal protocol for further evaluation. 2.There are 2 nonobstructive renal calculi within the right kidney. There is a complex cyst within the right kidney. 3.No hydronephrosis bilaterally. 4.Complex anechoic structure within the spleen, may represent a hematoma however cannot exclude other etiologies. Multiphase CT or MR imaging may be obtained for further evaluation if clinically indicated. Vas Carotid Duplex Bilateral There is heterogeneous, smooth atherosclerotic plaque as well as calcified plaque noted in the leftinternal carotid artery. There is less than 50% stenosis of bilateral internal carotid arteries. Bilateral vertebral flow isantegrade. ASSESSMENT & PLAN Abscess of spleen (POA: Yes) HTN (hypertension) (POA: Yes) Diverticulosis (POA: Yes) Enterococcal bacteremia (POA: Yes) Mitral valve vegetation (HCC) (POA: Yes) COPD (chronic obstructive pulmonary disease) (HCC) (POA: Yes) Endocarditis, suspected (POA: Yes) CKD (chronic kidney disease) stage 5, GFR less than 15 ml/min (HCC) (POA: Yes) #Abscess of Spleen #Diverticulosis #Bacteremia #Mitral Valve Vegetation #Endocarditis, suspected - CT Abd/Pelvis, OSH (02/28/25): New 8.1 x 5.2 x 5.1 cm relatively low- attentuation likely complex cystic lesion in the inferior spleen. This has developed since 12/05/2024 arguing against neoplasm and favring either subacute hematoma or abscess in the appropriate clinical setting. - Elevated WBC 13.2 at outside hospital, 11.4 this AM and afebrile - No pain on exam this AM, UA with no concern for infection so no reflex to culture - IR consulted for possible abscess, low suspicion of abscess based on imaging appearance. No indication for drainage at this time; if patient clinically worsens, could consider MRI w/ contrast but not currently indicated - Imaging finding likely splenic hematoma vs cyst - ACS consulted but low suspicion of abscess, given TTE results suggesting more secondary to infectious endocarditis - Per ID request and positive lab cultures for enterococcus faecalis, vancomycin and zosyn were stopped, ID recommends continuing ampicilin and ceftriaxone - Repeat blood cultures preliminary results showed no growth - SINTIA came back for large vegetation on mitral valve with severe mitral regurgitation. Per SINTIA, CTSrecommends multi team consult for approved recs to follow on surgery - Repeated Blood Cultures ordered, no growth on preliminary results, MRSA negative - Dental surgery completed, 9 teeth were pulled. - Renal ultrasound currently unremarkable for inpatient treatment. Will follow up results outpatient, once pt is discharged PLAN: - Continue ampicillin and ceftriaxone per ID recs - CTS follows per SINTIA, request consults from dental (for tooth extraction), cardiology (for left cardiac cath prior to MV surgery), ID (for source of infection and appreciate antibiotic recs), nephrology (recs for MV surgery in setting of improved renal function) - CTS scheduled surgery 03/15, would still like to do multicenter rounds awhile awaiting MV surgery - Cardiology following, left cardiac cath performed 03/10 - Nephrology consulted, pt is safe to proceed with MV surgery - pt started on incentive spirometry for prevention of pneumonia #HTN - Continue home medication of Metoprolol succinate 25 mg and amlodipine 5 mg #COPD - Home meds include Trelegy, fluticasone propionate PLAN: - Incruse and symbicort while in-patient #CKD - avoid nephrotoxic agents and continue tight control of blood pressures - nephrology consulted, pt should proceed with cath and MV surgery Code: Full Code Diet: Diet Regular after procedure Electrolytes: Replete PRN PPx: SCDs only Dispo: 5 - 7 The above assessment and plan will be discussed with the attending. This note is not final until attested by attending physician. Justyna Casiano MS3 [facility] 03/10/2025 10:33 AM [1] 0.9% NaCl 3 mL Intracatheter q8h [Transfer Hold] amLODIPine 5 mg Oral QDAY ampicillin 2 g Intravenous q8h [Transfer Hold] budesonide-formoterol 2 puff Inhalation BID And [Transfer Hold] umeclidinium 1 puff Inhalation QDAY cefTRIAXone 2 g Intravenous q12h [Held by Provider] heparin 5,000 Units Subcutaneous q8h [Transfer Hold] melatonin 3 mg Oral AT BEDTIME metoprolol succinate XL 24hr 25 mg Oral AT BEDTIME [Transfer Hold] montelukast 10 mg Oral AT BEDTIME [Transfer Hold] pantoprazole EC 40 mg Oral QDAY [Transfer Hold] polyethylene glycol 3350 17 g Oral QDAY [Transfer Hold] senna 8.6 mg Oral QDAY [2] dextrose 5 % and lactated ringers, , Last Rate: 100 mL/hr at 03/10/25 0019 [3] SALINE LOCK, INSERT AND MAINTAIN AND 0.9% NaCl AND 0.9% NaCl [Transfer Hold] acetaminophen dextrose IV for hypoglycemia OR dextrose IV for hypoglycemia OR glucagon [Transfer Hold] fluticasone propionate glucose (Diabetic Use) gel Cosigned by Adalberto Arroyo MD at 03/10/2025 11:38 AM CDT Associated attestation - Adalberto Arroyo MD - 03/10/2025 11:38 AM CDT This note is for educational purpose only, please see attestation associated with resident note. Adalberto Arroyo MD 03/10/2025 11:38 AM * Ofelia Mckee, [employer] - 03/10/2025 9:52 AM CDT CARDIAC SURGERY Progress note Patient Name: Marshall Espinal Jr. : 1960 Private Siding Stapler: NA; PCP: Provider Unknown Referring Facility: [facility] Subjective: 64 year old male with past medical history for HTN, CKD w/ hx of nephrolithiasis and GERDwho presented from OSH for surgical evaluation of his mitral valve endocarditis. Patient developed fever/chills, left sided flank pain - CT abdomen/pelvix with concern for splenic abscess, BCx + who is being evaluated for E. Faecalis - echo w/ MV vegetation 1x1.2cm w/ mild MR - transfer to [facility]. Patient is now afebrile, WBC stable at 11, Cr. Elevated at 3 (unclear baseline). Cardiology consulted for SINTIA. Patient reports night sweats and fevers on and off for months, prompting him to stop drinking. He was drinking vodka every day prior to 6 months ago.He developed a kidney stone one month JIG FITTER, he had no prior knowledge of kidney issues prior to developing the kidney stone. 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 His left sided pain began shortly after that occurrence. 03/07/25: Pt resting, not in distress. VSS. Disciplinary meeting tomorrow determine surgery time line; ID/nephrology/cardiology/CTS. SINTIA completed. Dentist following; recommendations tooth/teeth extraction prior to surgery. Patient aware of SELWYN on CKD and high risk of HD after surgery. 03/08/25: Pt tearful today, concerned about and after care. Will discuss timing of tooth extraction with dentist. 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 No acute events overnight Cardiothoracic High Risk Variables CHRONIC KIDNEY DISEASE CKD stage 4 and CKD Stage 5 Mitral valve Endocarditis Periodontal disease Splenic abscess H/o Diverticulosis COPD Were these Present on Admission? Yes Patient Active Problem List Diagnosis Date Noted CKD (chronic kidney disease) stage 5, GFR less than 15 ml/min ([facility]) 03/04/2025 Priority: Not Prioritized Enterococcal bacteremia 03/03/2025 Priority: Not Prioritized Mitral valve vegetation ([facility]) 03/03/2025 Priority: Not Prioritized COPD (chronic obstructive pulmonary disease) ([facility]) 03/03/2025 Priority: Not Prioritized Endocarditis, suspected 03/03/2025 Priority: Not Prioritized Diverticulosis 03/02/2025 Priority: Not Prioritized HTN (hypertension) 03/01/2025 Priority: Not Prioritized Abscess of spleen 02/28/2025 Priority: Not Prioritized Past Medical History[1] Past Surgical History[2] Medications[3] Allergies[4] Social History Tobacco Use Smoking status: Former Current packs/day: 0.00 Types: Cigarettes Quit date: 02/1971 Years since quittin.0 Smokeless tobacco: Never Substance Use Topics Alcohol use: Not Currently Alcohol/week: 2.0 - 3.0 standard drinks of alcohol Types: 2 - 3 Alcoholic drink(s) per week Comment: last drink was roughly 6 months ago Family History[5] Objective: BP 139/96 (BP Location: Right arm, Patient Position: Lying) Pulse 92 Temp 98.1 ??F (36.7 ??C) (Oral) Resp 18 Ht 1.702 m (5' 7) Wt 81 kg (178 lb 8 oz) SpO2 100% General appearance: alert, cooperative, no distress Lungs: breath sounds normal and symmetric; no rales or wheezes Heart: regular rhythm, normal S1 and S2, grade 3/6 systolic murmur at the LSB radiating to the axillia Abdomen: soft without mass, non-tender, with normal bowel sounds Extremities: no clubbing, cyanosis or edema Data ReviewCBC: Recent Labs Component Name 03/10/25 0605 03/09/25 0446 03/08/25 0505 WBC 10.9* 11.0* 12.1* HGB 8.7* 8.9* 9.3* HCT 26.8* 29.0* 29.4* PLTCOUNT 502* 548* 557* BMP: Recent Labs Component Name 03/10/25 0605 03/09/25 0445 03/08/25 0506 POTASSIUM 4.4 4.1 4.1 CO2 19* 20* 20* BUN 32* 35* 32* CREATININE 3.09* 3.18* 3.25* GLUCOSE 125* 96 101* CALCIUM 9.[address] abdomen pelvis W/O contrast: Impression Impression: 1. Large 1.6 cm obstructing stone in the right renal pelvis. Mild to moderate right hydronephrosis.Numerous additional nonobstructing right renal calculi. 2. Mild diffuse urinary bladder wall thickening. Correlate with urinalysis to exclude cystitis. 3. Bibasilar pulmonary nodules measuring up to 5 mm. Per Fleischner guidelines, if the patient is considered high risk for lung cancer, an optional follow-up CT chest can be obtained in 12 months. Ifthe patient is considered low risk, no specific follow-up is required. ECHO: 03/02/25 Summary * The left ventricle is normal in size, with normal systolic function and an estimated ejection fraction of 64 % by biplane method of disks. Left ventricular wall motion is normal. * The left ventricular diastolic function is normal. * The mitral valve is displaying restricted posterior leaflet motion with calcification. There is an echodensity 10 mm x 12 mm attached to the anterior mitral leaflet, possible differential includes vegetation, torn chordae. Need to correlate clinically and SINTIA if clinical suspicion of endocarditis. * There is mild tricuspid valve regurgitation. * There is mild mitral valve regurgitation. * The pulmonary artery systolic pressure is normal, 27 mmHg. LHC: pending Panorex 03/02/25 MPRESSION: Lucencies within the right mandibular presumed location of absent of the molar and premolar teeth. Recommend dental consultation. The report was drafted by Ofe Aponte MD (president finance company) 03/04/2025 8:30 AM. > Dictated by Lighting Equipment Operator SINTIA Summary * There is a 1.16 cm x 0.78 cm mobile vegetation attached to the atrial surface of the anterior mitral valve leaflet tip (around the A2/A3 scallop tip). * There is moderate to severe mitral valve regurgitation with a very eccentric posterior jet that originates at the site of the vegetation. Mitral valve regurgitant volume is 30 ml regurgitant fraction is calculated 33%. 3-D ERO area is 0.36 cm2. Vena contracta width (2D) 0.42 cm. 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 * Agitated saline contrast study at rest and with Valsalva is negative for a shunt. * Normal left ventricular systolic function. Visually estimated LV EF is 55-60%. * Right ventricular systolic function is grossly normal. Panorex 03/04/25 FINDINGS: Multiple dental restorations are identified, and numerous teeth are absent. There are scattered dental caries. No acute mandibular fracture is identified. Both temporomandibular joints are intact. Lucencies within the right mandibular presumed location of absent of the molar and premolar teeth. IMPRESSION: Lucencies within the right mandibular presumed location of absent of the molar and premolar teeth. Recommend dental consultation. The report was drafted by Ofe Aponte MD (president finance company) 03/04/2025 8:30 AM. Carotid US completed 03/07/25 There is less than 50% stenosis of bilateral internal carotid arteries. Bilateral vertebral flow isantegrade. Renal US, completed 03/09 -IMPRESSION: 1.Hypoechoic structure within the right kidney measuring up to 1.1 cm without definite posterior enhancement. This may represent a complex cyst however a neoplastic process cannot be ruled out. Recommend cross-sectional imaging with the renal protocol for further evaluation. 2.There are 2 nonobstructive renal calculi within the right kidney. There is a complex cyst within the right kidney. 3.No hydronephrosis bilaterally. 4.Complex anechoic structure within the spleen, may represent a hematoma however cannot exclude other etiologies. Multiphase CT or MR imaging may be obtained for further evaluation if clinically indicated. Assessment and Plan: Patient seen following renal US; he is laying in bed. He is in better spirits today, I got to get this all done and get home... I guess it's better then being at work. He denies SOB, Chest pain, palpitations, dizzness or lightheadedness. DIAGNOSIS: Patient is a 64 year old male with past medical history for HTN, CKD w/ hx of nephrolithiasis, (obstructive, s/p stents), anemia of chronic, COPD, periodontal disease, and GERD who presented from [facility] for surgical evaluation of his mitral valve endocarditis. Echo w/ MV vegetation 1x1.2cm w/ mild MR - transfer to [facility]. Patient is now afebrile, WBC stable at 11, Cr. Elevated at 3 (unclear baseline) upon admit. Surgeon Staffed: Maniar Surgery scheduled with Dr. Hernandez on 03/15/25 MV endocarditis E. Faecalis -SINTIA 03/07 with moderate to severe eccentric MR, posterior leaflet with restriction, mobile vegetation on the anterior leaflet - Splenic infarct - Abx ampicillin and ceftriaxone, ID managing. - Bcs from 03/04 NGTD - Last positive BC 03/02 Periodontal disease - mult teeth extracted 03/09 - denies pain, currently H/o obstructive renal calculi requiring intervention/stents - Renal US 03/09 reveals 2 nonobstructive renal calculi within the right kidney CKD stage 4 - Will likely need HD post surgery. - HD line to be placed in OR. - Nephrology following Testing pending: Cardiac Cath- in the lab now CT Chest, ordered Repeat UA early next week. Ofelia Mckee APRN-[employer] 03/10/2025 9:10 AM [1] Past Medical History: Diagnosis Date CKD (chronic kidney disease) COPD (chronic obstructive pulmonary disease) (HCC) GERD (gastroesophageal reflux disease) HTN (hypertension) Nephrolithiasis Obstructive uropathy [2] Past Surgical History: Procedure Laterality Date CYSTOSCOPY cystoscopy with ureteral stent placement Retinal Detachment Repair Bilateral [3] Medications Prior to Admission Medication Sig Dispense Refill amLODIPine (Norvasc) 5 MG tablet Take 1 (one) tablet by mouth once daily metoprolol succinate XL 24hr (Toprol XL) 25 MG tablet Take 1 (one) tablet by mouth once daily montelukast (Singulair) 10 MG tablet Take 1 (one) tablet by mouth at bedtime omeprazole (PriLOSEC) 40 MG capsule Take 1 (one) capsule by mouth daily before breakfast [4] No Known Allergies [5] Family History Problem Relation Name Age of Onset COPD - Chronic Obstructive Pulmonary Disease Mother Renal Disease Father Cosigned by Rahul Hernandez MD at 03/22/2025 3:10 PM CDT Associated attestation - Rahul Hernandez MD - 03/22/2025 3:10 PM CDT I have reviewed the patient's medical record; I have seen and examined the patient with the TIFFANIE. I have discussed and directed the medical management /treatment and performed decision making for the patient's medical condition and take responsibility for management risk pertaining to this patient. I agree with the findings and plan of care as documented by the TIFFANIE. Rahul Hernandez MD. * Ofelia Mckee APRN-CNP - 03/09/2025 3:40 PM CDT CARDIAC SURGERY Progress note Patient Name: Marshall Espinal Jr. 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 Patient developed fever/chills, left sided flank pain - CT abdomen/pelvix with concern for splenic abscess, BCx + who is being evaluated for E. Faecalis - echo w/ MV vegetation 1x1.2cm w/ mild MR - transfer to [facility]. Patient is now afebrile, WBC stable at 11, Cr. Elevated at 3 (unclear baseline). Cardiology consulted for SINTIA. Patient reports night sweats and fevers on and off for months, prompting him to stop drinking. He was drinking vodka every day prior to 6 months ago.He developed a kidney stone one month JIG FITTER, he had no prior knowledge of kidney issues prior to developing the kidney stone. 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 His left sided pain began shortly after that occurrence. 03/07/25: Pt resting, not in distress. VSS. Disciplinary meeting tomorrow determine surgery time line; ID/nephrology/cardiology/CTS. SINTIA completed. Dentist following; recommendations tooth/teeth extraction prior to surgery. Patient aware of SELWYN on CKD and high risk of HD after surgery. 03/08: Pt tearful today, concerned about and after care. Will discuss timing of tooth extraction with dentist. OR possible next week after [facility] 03/09/25: [facility] today, teeth extractions later this evening. Cardiothoracic High Risk Variables CHRONIC KIDNEY DISEASE CKD stage 4 and CKD Stage 5 Mitral valve Endocarditis Periodontal disease Splenic abscess Were these Present on Admission? Yes Patient Active Problem List Diagnosis Date Noted CKD (chronic kidney disease) stage 5, GFR less than 15 ml/min ([facility]) 03/04/2025 Priority: Not Prioritized Enterococcal bacteremia 03/03/2025 Priority: Not Prioritized Mitral valve vegetation ([facility]) 03/03/2025 Priority: Not Prioritized COPD (chronic obstructive pulmonary disease) ([facility]) 03/03/2025 Priority: Not Prioritized Endocarditis, suspected 03/03/2025 Priority: Not Prioritized Diverticulosis 03/02/2025 Priority: Not Prioritized HTN (hypertension) 03/01/2025 Priority: Not Prioritized Abscess of spleen 02/28/2025 Priority: Not Prioritized Past Medical History[1] Past Surgical History[2] Medications[3] Allergies[4] Social History Tobacco Use Smoking status: Former Current packs/day: 0.00 Types: Cigarettes Quit date: 02/1971 Years since quittin.0 Smokeless tobacco: Never Substance Use Topics Alcohol use: Not Currently Alcohol/week: 2.0 - 3.0 standard drinks of alcohol Types: 2 - 3 Alcoholic drink(s) per week Comment: last drink was roughly 6 months ago Family History[5] Objective: BP 129/79 Pulse 91 Temp 98.2 ??F (36.8 ??C) (Oral) Resp 16 Ht 1.702 m (5' 7) Wt 81 kg (178 lb 8 oz) SpO2 98% General appearance: alert, cooperative, no distress Lungs: breath sounds normal and symmetric; no rales or wheezes Heart: regular rhythm, normal S1 and S2, grade 3/6 systolic murmur at the LSB radiating to the axillia Abdomen: soft without mass, non-tender, with normal bowel sounds Extremities: no clubbing, cyanosis or edema Data ReviewCBC: Recent Labs Component Name 03/09/25 0446 03/08/25 0505 03/07/25 0526 WBC 11.0* 12.1* 11.9* HGB 8.9* 9.3* 8.6* HCT 29.0* 29.4* 27.6* PLTCOUNT 548* 557* 528* BMP: Recent Labs Component Name 03/09/25 0445 03/08/25 0506 03/07/25 0526 POTASSIUM 4.1 4.1 4.2 CO2 20* 20* 21* BUN 35* 32* 30* CREATININE 3.18* 3.25* 3.09* GLUCOSE 96 101* [address] abdomen pelvis W/O contrast: Impression Impression: 1. Large 1.6 cm obstructing stone in the right renal pelvis. Mild to moderate right hydronephrosis.Numerous additional nonobstructing right renal calculi. 2. Mild diffuse urinary bladder wall thickening. Correlate with urinalysis to exclude cystitis. 3. Bibasilar pulmonary nodules measuring up to 5 mm. Per Fleischner guidelines, if the patient is considered high risk for lung cancer, an optional follow-up CT chest can be obtained in 12 months. Ifthe patient is considered low risk, no specific follow-up is required. ECHO: 03/02/25 Summary * The left ventricle is normal in size, with normal systolic function and an estimated ejection fraction of 64 % by biplane method of disks. Left ventricular wall motion is normal. * The left ventricular diastolic function is normal. * The mitral valve is displaying restricted posterior leaflet motion with calcification. There is an echodensity 10 mm x 12 mm attached to the anterior mitral leaflet, possible differential includes vegetation, torn chordae. Need to correlate clinically and SINTIA if clinical suspicion of endocarditis. * There is mild tricuspid valve regurgitation. * There is mild mitral valve regurgitation. * The pulmonary artery systolic pressure is normal, 27 mmHg. LHC: pending Panorex 03/02/25 MPRESSION: Lucencies within the right mandibular presumed location of absent of the molar and premolar teeth. Recommend dental consultation. The report was drafted by Ofe Aponte MD (president finance company) 03/04/2025 8:30 AM. > Dictated by Lighting Equipment Operator SINTIA Summary * There is a 1.16 cm x 0.78 cm mobile vegetation attached to the atrial surface of the anterior mitral valve leaflet tip (around the A2/A3 scallop tip). * There is moderate to severe mitral valve regurgitation with a very eccentric posterior jet that originates at the site of the vegetation. Mitral valve regurgitant volume is 30 ml regurgitant fraction is calculated 33%. 3-D ERO area is 0.36 cm2. Vena contracta width (2D) 0.42 cm. 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 * Agitated saline contrast study at rest and with Valsalva is negative for a shunt. * Normal left ventricular systolic function. Visually estimated LV EF is 55-60%. * Right ventricular systolic function is grossly normal. Panorex 03/04/25 FINDINGS: Multiple dental restorations are identified, and numerous teeth are absent. There are scattered dental caries. No acute mandibular fracture is identified. Both temporomandibular joints are intact. Lucencies within the right mandibular presumed location of absent of the molar and premolar teeth. IMPRESSION: Lucencies within the right mandibular presumed location of absent of the molar and premolar teeth. Recommend dental consultation. The report was drafted by Ofe Aponte MD (president finance company) 03/04/2025 8:30 AM. Carotid US completed 03/07/25 -read pending Renal US, completed 03/09 - read pending Assessment and Plan: Patient seen following renal US; he is laying in bed. He is in better spirits today, I got to get this all done and get home... I guess it's better then being at work. He denies SOB, Chest pain, palpitations, dizzness or lightheadedness. DIAGNOSIS: Patient is a 64 year old male with past medical history for HTN, CKD w/ hx of nephrolithiasis and GERD who presented from OSH for surgical evaluation of his mitral valve endocarditis. Echo w/ MV vegetation 1x1.2cm w/ mild MR - transfer to [facility]. Patient is now afebrile, WBC stable at 11, Cr. Elevated at 3 (unclear baseline). Surgeon Staffed: Maniar -SINTIA 03/07 with moderate to severe eccentric MR, posterior leaflet with restriction, mobile vegetation on the anterior leaflet - Dentist consulted- mult teeth to be extracted today Testing pending: Cardiac Cath (03/09) Renal US completed, await read Carotid US completed, await read - surgery timing to be determined , we have discussed with the patient the potential need for HD after surgery LANRE Simms 03/09/2025 3:40 PM [1] Past Medical History: Diagnosis Date CKD (chronic kidney disease) COPD (chronic obstructive pulmonary disease) (HCC) GERD (gastroesophageal reflux disease) HTN (hypertension) Nephrolithiasis Obstructive uropathy [2] Past Surgical History: Procedure Laterality Date CYSTOSCOPY cystoscopy with ureteral stent placement Retinal Detachment Repair Bilateral [3] Medications Prior to Admission Medication Sig Dispense Refill amLODIPine (Norvasc) 5 MG tablet Take 1 (one) tablet by mouth once daily metoprolol succinate XL 24hr (Toprol XL) 25 MG tablet Take 1 (one) tablet by mouth once daily montelukast (Singulair) 10 MG tablet Take 1 (one) tablet by mouth at bedtime omeprazole (PriLOSEC) 40 MG capsule Take 1 (one) capsule by mouth daily before breakfast [4] No Known Allergies [5] Family History Problem Relation Name Age of Onset COPD - Chronic Obstructive Pulmonary Disease Mother Renal Disease Father Cosigned by Rahul Hernandez MD at 03/22/2025 3:09 PM CDT Associated attestation - Rahul Hernandez MD - 03/22/2025 3:09 PM CDT I have reviewed the patient's medical record; I have seen and examined the patient with the TIFFANIE. I have discussed and directed the medical management /treatment and performed decision making for the patient's medical condition and take responsibility for management risk pertaining to this patient. I agree with the findings and plan of care as documented by the TIFFANIE. Rahul Hernandez MD. * Cj Carpenter MD - 03/09/2025 2:40 PM CDT Images from the original note were not included. [facility] Internal Medicine Progress Note Name: Marshall Espinal Jr. Room/Bed: [facility] : 1960 65 year old PCP: Provider Unknown Admit Date/Time: 03/01/2025 9:44 PM LOS: 8 Subjective Interval update: NAEON. NAEON. Pt remains stable and continues to be resting peacefully in bed. Dental surgery was delayed, and will proceed today. The cardiac cath is scheduled for tomorrow with cardiology following. Infectious disease recommends continue current antibiotic treatment while waiting for MV surgery. Per CTS, MV surgery is planned on 03/15. Hospital course: Marshall Espinal is a 64 year old male with PMHx of HTN, CKD, COPD, hx of recurrent nephrolithiasiswho presents from an OSH ([place]) for a splenic abscess. Pain on left side had been happening for2 weeks. Patient has a history of kidney stones and had similar symptoms in the past, so he thoughtit was another occurrence of a kidney stone. He was seen as [facility] and was told that he was going to have imaging done to rule out kidney stones, and was found to have a splenic abscess and diverticulitis. Patient reports no prior history of diverticulitis. Patient denied any issues withtrauma to his left side with respect to the splenic abscess, and he did not notice any new changes to his bowel habits. Patient reported that he was only taking Pepto bismol for his pain. Patient otherwise well on exam with no fevers. IR consutled on admission, did not feel strongly that it was an abscess and recommended against drainage. Underwent ECHO 03/02 which revealed an echodensity 10 mm x12 mm attached to the anterior mitral leaflet, possible differential includes vegetation, torn chord ae. Cardiology was consulted, and SINTIA ordered. Blood cultures from OSH revealed 1/2 cultures positive stain for gram positive cocci. Repeat blood cultures collected at [facility] revealed similar findings,1/2 positive for gram cocci in pairs and chains and later positive for enterococci on 03/03. Infectious disease consulted for recommendations regarding bacteremia with unclear source. On 03/04, ID ordered another blood culture for further evaluation. Preliminary result for blood cultures have come back for no growth so far 03/06. Pt received his SINTIA on 03/06. Dentistry was consulted for dental abscess on 03/06. SINTIA was read, concerns for large abscess on the mitral valve, CTS following and recommends urgent MV surgery with approval from nephrology, cardiology, dental, and ID. Plan for multidisplinary rounds on 03/08, following dental surgery for approval of MV surgery. Per CTS and nephrology a VAS carotid duplex bilateral and renal ultrasound was conducted 03/08. Objective Temp: [98 ??F (36.7 ??C)-98.2 ??F (36.8 ??C)] 98.2 ??F (36.8 ??C) Pulse: [91-114] 91 Resp: [16-17] 16 BP: (127-130)/(79-97) 129/79 Weight change: No intake or output data in the 24 hours ending 03/09/25 1451 Physical Exam: Physical Exam Constitutional: General: He is not in acute distress. Appearance: Normal appearance. He is not ill-appearing. HENT: Head: Normocephalic and atraumatic. Mouth/Throat: Mouth: Mucous membranes are moist. Pharynx: No oropharyngeal exudate or posterior oropharyngeal erythema. Comments: Multiple missing teeth, dental caries Eyes: General: No scleral icterus. Extraocular Movements: Extraocular movements intact. Conjunctiva/sclera: Conjunctivae normal. Cardiovascular: Rate and Rhythm: Normal rate and regular rhythm. Pulses: Normal pulses. Heart sounds: Normal heart sounds. No murmur heard. Pulmonary: Effort: Pulmonary effort is normal. No respiratory distress. Breath sounds: Normal breath sounds. No wheezing. Abdominal: General: Abdomen is flat. Bowel sounds are normal. There is no distension. Palpations: Abdomen is soft. Tenderness: There is no abdominal tenderness. There is no guarding. Comments: Musculoskeletal: General: No swelling, tenderness or deformity. Skin: General: Skin is warm and dry. Coloration: Skin is not jaundiced. Findings: No bruising. Neurological: General: No focal deficit present. Mental Status: He is alert and oriented to person, place, and time. Mental status is at baseline. Cranial Nerves: No cranial nerve deficit. Sensory: No sensory deficit. Psychiatric: Mood and Affect: Mood normal. Behavior: Behavior normal. Scheduled Medications: Medications[1] PRN Medications: Medications[2] Continuous Infusions: Medications[3] Laboratory Data Recent Labs Component Name 03/09/2544503/08/2550403/07/25 0526 WBC 11.0* 12.1* 11.9* HGB 8.9* 9.3* 8.6* HCT 29.0* 29.4* 27.6* PLTCOUNT 548* 557* 528* MCV 89.2 85.5 86.3 Recent Labs Component Name 03/08/25 050 PT 14.0 INR 1.1 Recent Labs Component Name 03/09/2544403/08/25 0506 03/07/25 0526 NA 137 136 135* POTASSIUM 4.1 4.1 4.2 CL 109* 107 106 CO2 20* 20* 21* BUN 35* 32* 30* CREATININE 3.18* 3.25* 3.09* Recent Labs Component Name 03/09/2544403/08/25 0506 03/07/25 0526 CALCIUM 9.1 9.6 9.2 PHOS 4.3 4.2 4.2 Recent Labs Component Name 03/09/2544403/08/25 0506 03/07/25 0526 PROT 7.8 8.3 7.9 ALB 3.0* 3.2* 2.9* ALKPHOS 141 152* 151* AST 13 11 17 ALT 8 11 12 TBILI 0.1* 0.1* 0.1* No results for input(s): CKTOTAL, CKMBCK2, TROPONINI in the last 21104 hours. Recent Labs Component Name 03/03/25 0500 VANCORNDM 17.1 Microbiology Results (Displays last 21 days for this encounter ONLY) Procedure Component Value - Date/Time CULTURE BLOOD [[id number]] (Normal) Collected: 03/04/25 110 Lab Status: Final result Specimen: Blood Peripheral Updated: 03/09/25 1330 Culture No growth day 5 CULTURE BLOOD [[id number]] (Normal) Collected: 03/04/25 110 Lab Status: Final result Specimen: Blood Peripheral Updated: 03/09/25 1330 Culture No growth day 5 MRSA PCR [[id number]] (Normal) Collected: 03/02/25 0847 Lab Status: Final result Specimen: Microbiology from Nasal Updated: 03/02/25 1541 MRSA DNA by PCR Not detected Narrative: Methicillin-resistant Staphylococcus aureus (MRSA) DNA is not detected (presumed not colonized withMRSA). CULTURE BLOOD [[id number]] (Abnormal) Collected: 03/02/25532 Lab Status: Final result Specimen: Blood Peripheral Updated: 03/07/25 1038 Culture Growth of Enterococcus faecalis Gram Stain Gram-positive cocci pairs and chains Narrative: Positive at 28 Hours 19 Minutes Refer to previously reported susceptibility testing, specimen number:[id number] CULTURE BLOOD [[id number]] (Abnormal) (Susceptibility) Collected: 03/02/25532 Lab Status: Final result Specimen: Blood Peripheral Updated: 03/07/25 1038 Culture Growth of Enterococcus faecalis Gram Stain Gram-positive cocci pairs and chains Narrative: Positive at 22 Hours 44 Minutes Susceptibility Enterococcus faecalis (1) Antibiotic Interpretation Microscan Method Status Ampicillin Susceptible <=2 ug/mL LAVELLE Final Gentamicin 500 Susceptible SYN-S ug/mL LAVELLE Final Vancomycin Susceptible 2 ug/mL LAVELLE Final Susceptibility Comments Streptomycin Synergy susceptible predicts synergy between ampicillin, penicillin, or vancomycin plus streptomycin when isolates are susceptible to these agents. Combination therapy with ampicillin, penicillin or vancomycin(for susceptible strains) plus an aminoglycoside is usually indicated for serious enterococcal infections such as endocarditis, UNLESS high-level resistance to both gentamicin and streptomycin is documented. Gentamicin Synergy susceptible predicts synergy between ampicillin, penicillin, or vancomycin plus gentamicin when isolates are susceptible to these agents. Combination therapy with ampicillin, penicillin, or vancomycin (for susceptible strains) plus an aminoglycoside is usually indicated for serious enterococcal infections such as endocarditis UNLESS high-level resistance to both gentamicin and streptomycin is documented. Invasive enterococcal infections require combination therapy with susceptible agents. ID consultation is strongly recommended where available. BLOOD CULTURE ID PANEL [[id number]] (Abnormal) Collected: 03/02/25 0533 Lab Status: Final result Specimen: Blood Peripheral Updated: 03/03/25 1033 Enterococcus faecalis Detected Van A/B Vancomycin Resistance Not detected Comment: Results indicate vancomycin-susceptible Enterococcus faecalis. Nasir/B not detected. Narrative: Blood Culture ID Panel performed by [employer] multiplex PCR. The Test panel includes: Gram Positive Bacteria: Enterococcus faecalis, Enterococcus faecium, Listeria monocytogenes, Staphylococcus (genus), Staphylococcus aureus, Staphylococcus epidermidis, Staphylococcus lugdunensis, Streptococcus (genus), Streptococcus agalactiae (Group B), Streptococcus pneumoniae, Streptococcus pyogenes (Group A). Gram Negative Bacteria: Acinetobacter baumannii complex, Bacteroides fragilis, Haemophilus influenzae, Neisseria meningitidis (encapsulated), Pseudomonas aeruginosa, Stenotrophomonas maltophilia, Enterobacterales (formerly Enterobacteriaceae family), Enterobacter cloacae complex, Escherichia coli, K lebsiella (formerly Enterobacter) aerogenes, Klebsiella oxytoca, Klebsiella pneumoniae group, Proteus (genus), Salmonella species, Serratia marcescens. YEAST: Yesi albicans, Yesi auris, Yesi glabrata, Yesi krusei, Yesi parapsilosis, Yesi tropicalis, Cryptococcus neoformans/gattii. Antimicrobial Resistance Genes: CTX-M (extended-spectrum beta-lactamase), IMP ([place] beta-lactamase), KPC (carbapenemase), mcr-1 (colistin resistance determinant) mecA/C (methicillin-resistance), mecA/C and MREJ (methicillin- resistance - MRSA), NDM ([place] [id number]), OXA-48-like ( oxacillinase beta-lactamase),Nasir/B (vancomycin-resistance), VIM (Dora Intergrom-Encoded [place] beta-lactamase). Imaging US Retroperitoneal 03/09: IMPRESSION: 1.Hypoechoic structure within the right kidney measuring up to 1.1 cm without definite posterior enhancement. This may represent a complex cyst however a neoplastic process cannot be ruled out. Recommend cross-sectional imaging with the renal protocol for further evaluation. 2.There are2 nonobstructive renal calculi within the right kidney. There is a complex cyst within the right kidney. 3.No hydronephrosis bilaterally. 4.Complex anechoic structure within the spleen, may representa hematoma however cannot exclude other etiologies. Multiphase CT or MR imaging may be obtained forfurther evaluation if clinically indicated. VAS Carotid Duplex BL 03/07 There is less than 50% stenosis of bilateral internal carotid arteries. Bilateral vertebral flow isantegrade. ECHO SINTIA 03/06 Summary: * There is a 1.16 cm x 0.78 cm mobile vegetation attached to the atrial surface of the anterior mitral valve leaflet tip (around the A2/A3 scallop tip). * There is moderate to severe mitral valve regurgitation with a very eccentric posterior jet that originates at the site of the vegetation. Mitral valve regurgitant volume is 30 ml regurgitant fraction is calculated 33%. 3-D ERO area is 0.36 cm2. Vena contracta width (2D) 0.42 cm. 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 * Agitated saline contrast study at rest and with Valsalva is negative for a shunt. * Normal left ventricular systolic function. Visually estimated LV EF is 55-60%. * Right ventricular systolic function is grossly normal. XR Panorex 03/03: FINDINGS: Multiple dental restorations are identified, and numerous teeth are absent. There are scattered dental caries. No acute mandibular fracture is identified. Both temporomandibular joints are intact. Lucencies within the right mandibular presumed location of absent of the molar and premolar teeth. IMPRESSION: Lucencies within the right mandibular presumed location of absent of the molar and premolar teeth. Recommend dental consultation. Relevant labs and imaging data reviewed on [facility]. Assessment and Plan Abscess of spleen (POA: Yes) HTN (hypertension) (POA: Yes) Diverticulosis (POA: Yes) Enterococcal bacteremia (POA: Yes) Mitral valve vegetation (HCC) (POA: Yes) COPD (chronic obstructive pulmonary disease) (HCC) (POA: Yes) Endocarditis, suspected (POA: Yes) CKD (chronic kidney disease) stage 5, GFR less than 15 ml/min (HCC) (POA: Yes) Assessment & Plan Abscess of spleen Diverticulosis Enterococcal bacteremia Mitral valve vegetation (HCC) Endocarditis, suspected - CT Abd/Pelvis, OSH (02/28/25): New 8.1 x 5.2 x 5.1 cm relatively low- attentuation likely complex cystic lesion in the inferior spleen. This has developed since 12/05/2024 arguing against neoplasm and favring either subacute hematoma or abscess in the appropriate clinical setting. - Elevated WBC 13.2 at outside hospital, 11.4 this AM and afebrile - IR consulted for possible abscess, low suspicion of abscess based on imaging appearance. No indication for drainage at this time; if patient clinically worsens, could consider MRI w/ contrast but not currently indicated. Imaging finding likely splenic hematoma vs cyst - UA with no concern for infection so no reflex to culture - Blood cultures from OSH revealed 1/2 cultures positive stain for gram positive cocci. Repeat blood cultures collected here revealed similar findings, 1/2 positive for gram cocci in pairs and chainsand later positive for enterococci faecalis - TTE revealed an echodensity 10 mm x 12 mm attached to the anterior mitral leaflet, possible differential includes vegetation, torn chordae. - Denies any IVDU, other drug use - Had tooth extraction 3 months ago, was scheduled for additional tooth extraction on 02/27 but missed while admitted - IR consulted for possible abscess, low suspicion of abscess based on imaging appearance. No indication for drainage at this time; if patient clinically worsens, could consider MRI w/ contrast but not currently indicated - Imaging finding likely splenic hematoma vs cyst - ACS consulted but low suspicion of abscess, given TTE results suggesting more secondary to infectious endocarditis - Per ID request and positive lab cultures for enterococcus faecalis, vancomycin and zosyn were stopped - MRSA negative - SINTIA came back for large vegetation on mitral valve with severe mitral regurgitation. Per SINTIA, CTSrecommends multi team consult for approved recs to follow on surgery PLAN: - Continue ampicillin and ceftriaxone for now - Repeated Blood Cultures ordered, no growth on preliminary results - CTS follows per SINTIA, request consults from dental (for tooth extraction), cardiology (for left cardiac cath prior to MV surgery), ID (for source of infection and appreciate antibiotic recs), nephrology (recs for MV surgery in setting of improved renal function) - CTS scheduled surgery 03/15, would still like to do multicenter rounds awhile awaiting MV surgery - Dental consulted, Dental surgery will occur today for teeth extraction 03/09 - Cardiology following, left cardiac cath performed 03/09 - Nephrology consulted, pt is safe to proceed with MV surgery, awaiting results of renal ultrasound - pt started on incentive spirometry for prevention of pneumonia HTN (hypertension) - Home Rx: Metoprolol succinate 25 mg PO QHS, amlodipine 5 mg PO QD - BP stable, 119-126 systolic this AM PLAN: - Continue metoprolol succinate 25 - amLODIPine (Norvasc) tablet 5 mg COPD (chronic obstructive pulmonary disease) ([facility]) - Home meds include Trelegy, fluticasone propionate PLAN: - Incruse and symbicort while in-patient CKD (chronic kidney disease) stage 5, GFR less than 15 ml/min ([facility]) Cr-3.44-3.62 PLAN: - avoid nephrotoxic agents and continue tight control of blood pressures - nephrology consulted, pt should proceed with cath and MV surgery Incidental findings requiring follow up: Retroperitoneal US showed a 1.1 cm hypoechoic structure in the right kidney, possibly a complex cyst but neoplasm cannot be ruled out. Two nonobstructive renal stones also noted. Recommend renal protocol CT for further evaluation. Needs OP follow-up. Diet: DIET NPO Except: NO EXCEPTIONS DVT Prophylaxis: SCDs only Code Status: Full Code [place] Candidate?: No Electronically Signed By: Cj Carpenter MD 03/09/2025 2:51 PM The above assessment and plan will be discussed with attending physician. This note is not final until attested by the attending physician. [1] 0.9% NaCl 3 mL Intracatheter q8h amLODIPine 5 mg Oral QDAY ampicillin 2 g Intravenous q8h budesonide-formoterol 2 puff Inhalation BID And umeclidinium 1 puff Inhalation QDAY cefTRIAXone 2 g Intravenous q12h [Held by Provider] heparin 5,000 Units Subcutaneous q8h melatonin 3 mg Oral AT BEDTIME metoprolol succinate XL 24hr 25 mg Oral AT BEDTIME montelukast 10 mg Oral AT BEDTIME pantoprazole EC 40 mg Oral QDAY polyethylene glycol 3350 17 g Oral QDAY senna 8.6 mg Oral QDAY [2] SALINE LOCK, INSERT AND MAINTAIN AND 0.9% NaCl AND 0.9% NaCl acetaminophen dextrose IV for hypoglycemia OR dextrose IV for hypoglycemia OR glucagon fluticasone propionate glucose (Diabetic Use) gel [3] lactated ringers, , Last Rate: 75 mL/hr at 03/08/252055 Cosigned by Adalberto Arroyo MD at 03/09/2025 3:10 PM CDT Associated attestation - Adalberto Arroyo MD - 03/09/2025 3:10 PM CDT I have seen and examined the patient with the resident and I agree with the findings and plan of care as documented by the resident. In addition: - planned for dental extraction today Date of Service: 03/09/2025 Adalberto Arroyo MD * Alejandra Sanchez RN - 03/09/2025 12:22 PM CDT Care Coordination Progress Note Expected Discharge Date: 03/15/2025 Discharge Plan: once medically ready, the patient will discharge home with no additional needs. Thepatient is to have a tooth extraction and cardiac cath today (03/09/25). CTS surgery is scheduled for 03/13/25. CM will continue to follow. Family Support (Name and Phone): Extended Emergency Contact Information Primary Emergency Contact: irma espinal Mobile Relation: Spouse Preferred language: [place] Broke Handler needed? No Secondary Emergency Contact: Katie Diggs Mobile Relation: Daughter Preferred language: [place] Broke Handler needed? No Transportation at Discharge: Family: READMISSION RISK SCORE is 13 at 12:22 PM 03/09/2025.: Name: Alejandra Sanchez RN * Justyna Casiano - 03/09/2025 8:01 AM CDT Images from the original note were not included. [facility] INTERNAL MEDICINE PROGRESS NOTE Patient: Marshall Espinal Jr. Sex: male Age: [age] year old Date of : 1960 Date of Admission: 03/01/2025 Date: 03/09/2025 LOS: 8 SUBJECTIVE Interval History: NAEON. Pt remains stable and continues to be resting peacefully in bed. We are still awaiting for the read from VAS carotid duplex bilateral US as well as waiting for the renal ultrasound. Dental surgery was delayed, and will proceed today. The cardiac cath is scheduled for tomorrow with cardiologyfollowing. Infectious disease recommends continue current antibiotic treatment while waiting for MVsurgery. Per CTS, MV surgery is planned on 03/15. Hospital Course: Mr. Marshall Espinal is a 64 yo M with PMHx of HTN, CKD, COPD w h/o nephrolithiasis who presented to OSH for 2 weeks of left sided flank pain. At the OSH, CT Abd/pelvis order that showed complex, cystic lesion of the inferior left spleen and diverticulosis. Pt was transferred to [facility] for transition of care on 03/01. In the ED, pt was started on empiric vancomycin and zosyn. On 03/02, TTE was ordered for concerns of IE. TTE showed mild mitral regurgitation and 10 x 12 mm echodensity of anterior mitral valve leaflet. Blood cultures collected in the ED and OSH grew gram positive organisms and enterococcus faecalis on 03/03. On 03/03 ID, CTS, and ACS were consulted. Per blood results, ID switched patient antibiotics to ampicillin and ceftriaxone. Per CTS, a SINTIA is scheduled for 03/06 for follow up and further management of care. CTS also ordered a Panorex for potential work up of dental abscess on03/03 but was found to be unremarkable. ACS was consulted for concerns of splenic abscess but recommend against splenic drainage and signed off. On 03/04, ID ordered another blood culture for further evaluation. Preliminary result for blood cultures have come back for no growth so far 03/06. Pt received his SINTIA on 03/06. Dentistry was consulted for dental abscess on 03/06. SINTIA was read, concerns for large abscess on the mitral valve, CTS following and recommends urgent MV surgery with approval from nephrology, cardiology, dental, and ID. Plan for multidisplinary rounds on 03/08, following dental surgery for approval of MV surgery. Per CTS and nephrology a VAS carotid duplex bilateral completed and waiting read. Dental surgery performed 03/09. OBJECTIVE Vital Signs: Vitals: 03/08/25 1951 03/08/25200403/08/25205003/09/25 0546 BP: 130/81 127/97 Pulse: (!) 110 (!) 114 91 Resp: 16 17 16 Temp: 98 ??F (36.7 ??C) 98.2 ??F (36.8 ??C) SpO2: 96% 99% 97% 98% Weight: Height: Temp Min: 96.3 ??F (35.7 ??C) Max: 98.5 ??F (36.9 ??C), Pulse Min: 82 Max: 114, Resp Min: 12 Max: 23, BP Min: 108/67 Max: 142/91 Intake & Output: No intake/output data recorded. Physical Exam: Physical Exam Cardiovascular: Rate and Rhythm: Normal rate and regular rhythm. Pulmonary: Effort: Pulmonary effort is normal. Breath sounds: Normal breath sounds. Abdominal: General: Abdomen is flat. Palpations: Abdomen is soft. Neurological: General: No focal deficit present. Mental Status: He is alert and oriented to person, place, and time. Current Medications: Scheduled: Medications[1] Continuous: Medications[2] PRN: Medications[3] Microbiology: Microbiology Results (Displays last 21 days for this encounter ONLY) Procedure Component Value - Date/Time CULTURE BLOOD [[id number]] (Normal) Collected: 03/04/25 1109 Lab Status: Preliminary result Specimen: Blood Peripheral Updated: 03/06/25 1331 Culture No growth CULTURE BLOOD [[id number]] (Normal) Collected: 03/04/25 1109 Lab Status: Preliminary result Specimen: Blood Peripheral Updated: 03/06/25 1331 Culture No growth MRSA PCR [[id number]] (Normal) Collected: 03/02/25 0847 Lab Status: Final result Specimen: Microbiology from Nasal Updated: 03/02/25 1541 MRSA DNA by PCR Not detected Narrative: Methicillin-resistant Staphylococcus aureus (MRSA) DNA is not detected (presumed not colonized withMRSA). CULTURE BLOOD [[id number]] (Abnormal) Collected: 03/02/25 0533 Lab Status: Final result Specimen: Blood Peripheral Updated: 03/07/25 1038 Culture Growth of Enterococcus faecalis Gram Stain Gram-positive cocci pairs and chains Narrative: Positive at 28 Hours 19 Minutes Refer to previously reported susceptibility testing, specimen number:[id number] CULTURE BLOOD [[id number]] (Abnormal) (Susceptibility) Collected: 03/02/25532 Lab Status: Final result Specimen: Blood Peripheral Updated: 03/07/25 1038 Culture Growth of Enterococcus faecalis Gram Stain Gram-positive cocci pairs and chains Narrative: Positive at 22 Hours 44 Minutes Susceptibility Enterococcus faecalis (1) Antibiotic Interpretation Microscan Method Status Ampicillin Susceptible <=2 ug/mL LAVELLE Final Gentamicin 500 Susceptible SYN-S ug/mL LAVELLE Final Vancomycin Susceptible 2 ug/mL LAVELLE Final Susceptibility Comments Streptomycin Synergy susceptible predicts synergy between ampicillin, penicillin, or vancomycin plus streptomycin when isolates are susceptible to these agents. Combination therapy with ampicillin, penicillin or vancomycin(for susceptible strains) plus an aminoglycoside is usually indicated for serious enterococcal infections such as endocarditis, UNLESS high-level resistance to both gentamicin and streptomycin is documented. Gentamicin Synergy susceptible predicts synergy between ampicillin, penicillin, or vancomycin plus gentamicin when isolates are susceptible to these agents. Combination therapy with ampicillin, penicillin, or vancomycin (for susceptible strains) plus an aminoglycoside is usually indicated for serious enterococcal infections such as endocarditis UNLESS high-level resistance to both gentamicin and streptomycin is documented. Invasive enterococcal infections require combination therapy with susceptible agents. ID consultation is strongly recommended where available. BLOOD CULTURE ID PANEL [[id number]] (Abnormal) Collected: 03/02/25 0533 Lab Status: Final result Specimen: Blood Peripheral Updated: 03/03/25 1033 Enterococcus faecalis Detected Van A/B Vancomycin Resistance Not detected Comment: Results indicate vancomycin-susceptible Enterococcus faecalis. Nasir/B not detected. Narrative: Blood Culture ID Panel performed by [employer] multiplex PCR. The Test panel includes: Gram Positive Bacteria: Enterococcus faecalis, Enterococcus faecium, Listeria monocytogenes, Staphylococcus (genus), Staphylococcus aureus, Staphylococcus epidermidis, Staphylococcus lugdunensis, Streptococcus (genus), Streptococcus agalactiae (Group B), Streptococcus pneumoniae, Streptococcus pyogenes (Group A). Gram Negative Bacteria: Acinetobacter baumannii complex, Bacteroides fragilis, Haemophilus influenzae, Neisseria meningitidis (encapsulated), Pseudomonas aeruginosa, Stenotrophomonas maltophilia, Enterobacterales (formerly Enterobacteriaceae family), Enterobacter cloacae complex, Escherichia coli, K lebsiella (formerly Enterobacter) aerogenes, Klebsiella oxytoca, Klebsiella pneumoniae group, Proteus (genus), Salmonella species, Serratia marcescens. YEAST: Yesi albicans, Yesi auris, Yesi glabrata, Yesi krusei, Yesi parapsilosis, Yesi tropicalis, Cryptococcus neoformans/gattii. Antimicrobial Resistance Genes: CTX-M (extended-spectrum beta-lactamase), IMP (metallo beta-lactamase), KPC (carbapenemase), mcr-1 (colistin resistance determinant) mecA/C (methicillin-resistance), mecA/C and MREJ (methicillin- resistance - MRSA), NDM ([place] hkvicxh-rfnq-igwkxkgmk), OXA-48-like ( oxacillinase beta-lactamase),Nasir/B (vancomycin-resistance), VIM (Dora Intergrom-Encoded [place] beta-lactamase). Imaging & Studies: Awaiting read for VAS Carotid Duplex Bilateral. US retroperitoneal ordered for now. ASSESSMENT & PLAN Abscess of spleen (POA: Yes) HTN (hypertension) (POA: Yes) Diverticulosis (POA: Yes) Enterococcal bacteremia (POA: Yes) Mitral valve vegetation (HCC) (POA: Yes) COPD (chronic obstructive pulmonary disease) (HCC) (POA: Yes) Endocarditis, suspected (POA: Yes) CKD (chronic kidney disease) stage 5, GFR less than 15 ml/min (HCC) (POA: Yes) #Abscess of Spleen #Diverticulosis #Bacteremia #Mitral Valve Vegetation #Endocarditis, suspected - CT Abd/Pelvis, OSH (02/28/25): New 8.1 x 5.2 x 5.1 cm relatively low- attentuation likely complex cystic lesion in the inferior spleen. This has developed since 12/05/2024 arguing against neoplasm and favring either subacute hematoma or abscess in the appropriate clinical setting. - Elevated WBC 13.2 at outside hospital, 11.4 this AM and afebrile - No pain on exam this AM, UA with no concern for infection so no reflex to culture - IR consulted for possible abscess, low suspicion of abscess based on imaging appearance. No indication for drainage at this time; if patient clinically worsens, could consider MRI w/ contrast but not currently indicated - Imaging finding likely splenic hematoma vs cyst - ACS consulted but low suspicion of abscess, given TTE results suggesting more secondary to infectious endocarditis - Per ID request and positive lab cultures for enterococcus faecalis, vancomycin and zosyn were stopped, ID recommends continuing ampicilin and ceftriaxone - Repeat blood cultures preliminary results showed no growth - SINTIA came back for large vegetation on mitral valve with severe mitral regurgitation. Per SINTIA, CTSrecommends multi team consult for approved recs to follow on surgery PLAN: - Continue ampicillin and ceftriaxone per ID recs - Repeated Blood Cultures ordered, no growth on preliminary results - MRSA negative - CTS follows per SINTIA, request consults from dental (for tooth extraction), cardiology (for left cardiac cath prior to MV surgery), ID (for source of infection and appreciate antibiotic recs), nephrology (recs for MV surgery in setting of improved renal function) - CTS scheduled surgery 03/15, would still like to do multicenter rounds awhile awaiting MV surgery - Dental consulted, Dental surgery will occur today for teeth extraction 03/09 - Cardiology following, left cardiac cath performed 03/09 - Nephrology consulted, pt is safe to proceed with MV surgery, awaiting results of renal ultrasound - pt started on incentive spirometry for prevention of pneumonia #HTN - Continue home medication of Metoprolol succinate 25 mg and amlodipine 5 mg #COPD - Home meds include Trelegy, fluticasone propionate PLAN: - Incruse and symbicort while in-patient #CKD - avoid nephrotoxic agents and continue tight control of blood pressures - nephrology consulted, pt should proceed with cath and MV surgery Code: Full Code Diet: Diet Regular Electrolytes: Replete PRN PPx: SCDs only Dispo: 5 - 7 days at least The above assessment and plan will be discussed with the attending. This note is not final until attested by attending physician. Justyna Casiano MS3 [facility] 03/09/2025 8:02 AM [1] 0.9% NaCl 3 mL Intracatheter q8h amLODIPine 5 mg Oral QDAY ampicillin 2 g Intravenous q8h budesonide-formoterol 2 puff Inhalation BID And umeclidinium 1 puff Inhalation QDAY cefTRIAXone 2 g Intravenous q12h [Held by Provider] heparin 5,000 Units Subcutaneous q8h melatonin 3 mg Oral AT BEDTIME metoprolol succinate XL 24hr 25 mg Oral AT BEDTIME montelukast 10 mg Oral AT BEDTIME pantoprazole EC 40 mg Oral QDAY polyethylene glycol 3350 17 g Oral QDAY senna 8.6 mg Oral QDAY [2] lactated ringers, , Last Rate: 75 mL/hr at 03/08/252055 [3] SALINE LOCK, INSERT AND MAINTAIN AND 0.9% NaCl AND 0.9% NaCl acetaminophen dextrose IV for hypoglycemia OR dextrose IV for hypoglycemia OR glucagon fluticasone propionate glucose (Diabetic Use) gel Cosigned by Adalberto Arroyo MD at 03/09/2025 11:17 AM CDT Associated attestation - Adalberto Arroyo MD - 03/09/2025 11:17 AM CDT This note is for educational purpose only, please see attestation associated with resident note. Adalberto Arroyo MD 03/09/2025 11:17 AM * Yesica Cabello PA-C - 03/09/2025 7:34 AM CDT Images from the original note were not included. [facility] Infectious Diseases Inpatient Progress Note Patient Name: Marshall Espinal Jr. 1960 Room: [facility] Date of Admission: 03/01/2025 Date of Service: 03/09/2025 Primary Care Physician: Provider Unknown Attending Physician: Adalberto Arroyo MD Assessment and Recommendations Marshall Espinal Jr. is a 65 year old white male with PMH of HTN, CKD, COPD, hx of nephrolithiasis who presents from an OSH ([facility]) for a splenic abscess. This admission found to have: Enterococcus faecalis bacteremia MV infective endocarditis - Consider sources: Poor dentition, less likely diverticulosis or splenic lesion - 02/28 (OSH) Bcx 2/2 with E.faecalis (reports being faxed 03/09/2025) - 03/02 ([facility]) repeat BCX 2/2 E.faecalis - 03/04: Bcx prelim no growth - 03/02: TTE shows an echodensity 10 mm x 12 mm attached to the anterior mitral leaflet, possible differential includes vegetation, torn chordae. - 03/06: TTE with 1.16 cm x 0.78 cm mobile vegetation attached to the atrial surface of the anteriormitral valve leaflet tip (around the A2/A3 scallop tip). - 03/09: Planning cardiac cath today - CTS following for surgical intervention - On ampicillin / ceftriaxone since 03/03 Concerns for splenic abscess - CT Abd/Pelvis, OSH (02/28/25): New 8.1 x 5.2 x 5.1 cm relatively low- attentuation likely complex cystic lesion in the inferior spleen. This has developed since 12/05/2024 arguing against neoplasm and favring either subacute hematoma or abscess in the appropriate clinical setting. - Both IR and general surgery evaluated patient with low suspicion for splenic abscess: Likely subacute hemorrhage or less likely cyst or infarct. Poor Dentition - Patient had dental extractions recently prior to admission - 03/03/2025: Panorex with lucencies within right mandibular presumed location of abset molar and premolar teeth. - 03/07/2025: Dental consult recommending extractions of multiple teeth prior to cardiac intervention. - 03/09: Planning multiple extractions Diverticulosis: - CT Abd/Pelvis, OSH (02/28/25): Moderate diverticulosis without evidence of diverticulitis. Moderate bilateral fat-containing inguinal hernia. - Pt will L-sided abdominal tenderness for the past 2 weeks. Stable and 4/10 pain. Per pt, no hx ofdiverticulosis / diverticulitis and no change in bowel movements. - Continue to monitor symptoms SELWYN - Nephrology assisting - Avoid nephrotoxic agents when able - ampicillin renally adjusted based on infection History of ETOH use - Patient reports drinking up to 1 pint per day. - Quit 4 months prior to admission CDC Screening - HIV and Hepatitis C screening negative this admission QTC: Renal Function: Estimated Creatinine Clearance: 23.6 mL/min (A) (by C-G formula based on SCr of 3.18 mg/dL (H)). Hardware: Recommendations: - Continue IV ceftriaxone 2 g every 12 hours - Continue IV ampicillin 2g every 8 hours - Follow CTS recommendations. When patient goes to OR please send valve / vegetation for all cultures including standard bacterial, anaerobic, AFB smear + culture, fungal smear + culture, and tissue for histopathology. - Appreciate dental consult, recommending extractions this admission - Check CBC with auto diff and CMP at least weekly while on IV antibiotics. We are actively monitoring signs of antibiotic toxicity to ensure safe and effective therapy. Follow-up in [facility] ID clinic on: TBD [facility] ID clinic [address] [place] [address] Clinic phone [phone] Clinic fax [phone] If there any concerns, please call [facility] infectious disease clinic: phone [phone] Updated recommendations and care plan have been discussed with primary team Thank you for allowing us to participate in the care of this patient. We will continue to follow and monitor with you closely. Please call the Ortho ID pager [phone] with any questions M-F. Ortho ID is not available on the weekends. Please contact general ID inpatient team (team 1) duringthis time. I spent 60 mins in the care of this patient to include chart review, coordination of care, patient interview / examination / education, and documentation independent from the attending physician. I spent an additional 10 mins in discussion with attending physician Diogenes regarding patient case. Patient seen and examined, case/plan were discussed with ID Attending physician. DAIANA Antoine, AC Division of Infectious Diseases Pager: [phone], [employer] Secure Chat preferred ID Clinic ID Clinic Subjective Interval History: Today, 03/09/2025: WBC 11., Hgb 8.9, plt 548. Creatinine 3.18, GFR 21. Afebrile, HDS. Patient statesthat he still feels like there is something in the belly but he has no pain. No fevers, chills, n/v/d, constipation, rashes, itching, heart palpitations, shortness of breath, pleuritic chest pain. Reports he has a history of dental extractions about 1 week prior to becoming ill. Reports he had kidney stone retrieval at [facility] earlier this year. Going for cardiac cath today. HPI (Copied From Previous ID Consult note): Consult HPI from ID fellow Amy with my updates: Marshall Espinal Jr. is a 65 year old white male with PMH of HTN, CKD, COPD, hx of nephrolithiasis who presents from an OSH ([facility]) for a splenic abscess. Before presenting to OSH, patient had been experiencing L-sided pain for 2 weeks. Also having fevers intermittently ([id number] ??F, was on and off since 02/24/25). CT Abd/Pelvis 02/28 notable for New 8.1 x 5.2 x 5.1 cm relatively low-attentuation likely complex cystic lesion in the inferior spleen. This has developed since 12/05/2024 arguing against neoplasm and favring either subacute hematoma orabscess in the appropriate clinical setting and moderate diverticulosis w/o evidence of diverticulitis. Patient reports no prior history of diverticulitis. Patient denied any issues with trauma tohis left side with respect to the splenic abscess, and he did not notice any new changes to his bowel habits or endorsed abdominal pain with respect to the diverticulitis. 02/28/25 - BCx revealing 2/2positive for GPC (E.faecalis) at OSH. Transferred to [facility] 03/01 for further evaluation. VSS on admission. Labs notable for negative Mononucleosis screen and MRSA PCR. TTE 03/02 demonstrating an echodensity 10 mm x 12 mm attached to the anterior mitral leaflet, possible differential includes vegetation, torn chordae. Repeat blood cultures on 03/02 at [facility] 2/2 positive for E Faecalis. Patient reports stable L-sided abdominal/back discomfort (4/10 pain). Denies fever, chills, n/v, dysuria, dyschezia.Complains of headache. 03/02/2025: IR consulted for splenic abscess. Noted that it is unlikely that patient's infection 2/2 to splenic abscess. Recommend further infectious workup. No acute intervention 03/03/2025: Panorex with lucencies within right mandibular presumed location of abset molar and premolar teeth. On 03/07: Dental consult recommending extractions of multiple teeth prior to cardiac intervention. 03/03/2025: General surgery consulted for splenic abscess. Agree with IR that unlikely to represent splenic abscess. Likely subacute hemorrhage or less likely cyst or infarct. No acute surgical intervention. 2025: SINTIA with 1.16 cm x 0.78 cm mobile vegetation attached to the atrial surface of the anterior mitral valve leaflet tip (around the A2/A3 scallop tip). 03/07/2025: Nephrology consulted for SELWYN 03/08/2025: CTS recommending multidisciplinary meeting with infectious disease, cardiology, CTS. Surgery timing to be determined. Social hx: Lives at home in house with dog and . [place]. No smoking, no illicit drug use / IVDU. He reports heavy alcohol use (1 pint per day) quit 4 months ago. 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 Pertinent Review of Systems: General: weight loss/gain, changes in PO intake, Fever/Chills HEENT: Hearing loss or changes, visual changes, dental pain Respiratory: dyspnea, wheezing, cough, sputum production, hemoptysis, pleuritic chest pain Cardiac: Chest pain, dyspnea on exertion, palpitations, dizziness Gastrointestinal: abdominal pain, nausea, vomiting, diarrhea, constipation, melena or hematochezia Genitourinary: dysuria, hematuria, hesitancy, frequency, hematuria Musculoskeletal: muscle weakness, joint pain/stiffness, limited range of motion, myalgias Skin: rashes, pruritis Neuro: Headaches or visual changes, dizziness Antimicrobial History Current Antibiotics Ceftriaxone 03/03 - present Ampicillin 03/03 - present Prior Antibiotics At [facility] Zosyn 03/02 - 03/03 Vancomycin 03/01 - 03/03 Prior Antibiotics at OSH Inpatient Medications Medications[1] Medications[2] Objective VITALS BP 127/97 (BP Location: Right arm, Patient Position: Lying) Pulse 91 Temp 98.2 ??F (36.8 ??C) (Oral) Resp 16 Ht 1.702 m (5' 7) Wt 81 kg (178 lb 8 oz) SpO2 98% Temp (24hrs), Av ??F (36.7 ??C), Min:97.7 ??F (36.5 ??C), Max:98.2 ??F (36.8 ??C) PHYSICAL EXAM General: Alert, no distress, not toxic appearing, laying in bed, sleeping but easy to awaken. Lookswell today. Head: Normocephalic, atraumatic EENT: PERRLA, Ptosis of the left eyelid. normal conjunctiva, anicteric sclerae. Nose Normal. No thrush. Poor dentition. Neck: Supple, No cervical lymphadenopathy. No JVD. Chest wall: No tenderness. Lungs: Clear to auscultation bilaterally, no wheezes, rales, rhonchi. Heart: RRR, S1, S2 normal, no murmur, gallops, or rubs. Abdomen: Soft, non-distended, mild-tenderness LLQ, no peritoneal signs, no guarding or rigidity, bowel sounds normal Extremities: No cyanosis or edema bilateral lower extremities. Feet without open sores. Onychomycosis great toes. Skin: No rashes. Neurologic: Alert and oriented x 3, moving all extremities Psychiatry: Appropriate mood/affect Lines: PIV left arm without signs of phlebitis. Lab Review CBC: Recent Labs Component Name 03/09/2544503/08/25 05003/07/25 0526 WBC 11.0* 12.1* 11.9* RBC 3.25* 3.44* 3.20* HGB 8.9* 9.3* 8.6* HCT 29.0* 29.4* 27.6* MCV 89.2 85.5 86.3 BMP: Recent Labs Component Name 03/09/2544403/08/25 05003/07/25 0526 NA 137 136 135* CL 109* 107 106 CO2 20* 20* 21* BUN 35* 32* 30* CREATININE 3.18* 3.25* 3.09* ALB 3.0* 3.2* 2.9* PROT 7.8 8.3 7.9 estimated creatinine clearance is 23.6 mL/min (A) (by C-G formula based on SCr of 3.18 mg/dL (H)). LFTs: Recent Labs Component Name 03/09/2544403/08/2550503/07/25 0526 ALKPHOS 141 152* 151* ALT 8 11 12 AST 13 11 17 ESR: No results for input(s): ESR in the last 43596 hours. CRP: No results for input(s): CRP in the last 84194 hours. CK: No results for input(s): CK in the last 46312 hours. Coagulation: Recent Labs Component Name 03/08/25 050 PT 14.0 INR 1.1 Microbiology, Imaging and other diagnostic tests MICROBIOLOGY: Blood culture: 02/28 (OSH): 2/2 GPCs - E.faecalis (report being faxed 03/09) 03/02 ([facility]): 2/2 E.faecalis 03/04: Prelim no growth Other Serologies: 03/02: MRSA nares PCR Negative 03/02: [place] quant negative 03/04: - HIV non-reactive - Hep B core ab IgM non-reactive - Hep B surface ab quant < 3.0 - Hep B surface ab non-reactive - Hep B surface ag non-reactive - Hep C ab - non-reactive HISTOPATHOLOGY: None at this admission IMAGING & PROCEDURES: I have independently reviewed all pertinent imaging data. Reports available in EMR. CT ABD PELVIS OSH (02/28/25): New 8.1 x 5.2 x 5.1 cm relatively low-attentuation likely complex cystic lesion in the inferior spleen. This has developed since 12/05/2024 arguing against neoplasm and favring either subacute hematoma or abscess in the appropriate clinical setting. Moderate diverticulosis without evidence of diverticulitis. Moderate bilateral fat-containing inguinal hernia. TTE 03/02 The left ventricle is normal in size, with normal systolic function and an estimated ejection fraction of 64 % by biplane method of disks. Left ventricular wall motion is normal. * The left ventricular diastolic function is normal. * The mitral valve is displaying restricted posterior leaflet motion with calcification. There is an echodensity 10 mm x 12 mm attached to the anterior mitral leaflet, possible differential includes vegetation, torn chordae. Need to correlate clinically and SINTIA if clinical suspicion of endocarditis. * There is mild tricuspid valve regurgitation. * There is mild mitral valve regurgitation. * The pulmonary artery systolic pressure is normal, 27 mmHg. PANOREX (03/03/2025): IMPRESSION: Lucencies within the right mandibular presumed location of absent of the molar and premolar teeth. Recommend dental consultation. SINTIA 03/06/25 Summary * There is a 1.16 cm x 0.78 cm mobile vegetation attached to the atrial surface of the anterior mitral valve leaflet tip (around the A2/A3 scallop tip). * There is moderate to severe mitral valve regurgitation with a very eccentric posterior jet that originates at the site of the vegetation. Mitral valve regurgitant volume is 30 ml regurgitant fraction is calculated 33%. 3-D ERO area is 0.36 cm2. Vena contracta width (2D) 0.42 cm. 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 * Agitated saline contrast study at rest and with Valsalva is negative for a shunt. * Normal left ventricular systolic function. Visually estimated LV EF is 55-60%. * Right ventricular systolic function is grossly normal. VAS CAROTID DUPLEX BILATERAL (03/07/2025): > 50% stenosis in bilateral carotids US RETROPERITONEAL (03/07/2025) - Completed pending read [1] 0.9% NaCl 3 mL Intracatheter q8h amLODIPine 5 mg Oral QDAY ampicillin 2 g Intravenous q8h budesonide-formoterol 2 puff Inhalation BID And umeclidinium 1 puff Inhalation QDAY cefTRIAXone 2 g Intravenous q12h [Held by Provider] heparin 5,000 Units Subcutaneous q8h melatonin 3 mg Oral AT BEDTIME metoprolol succinate XL 24hr 25 mg Oral AT BEDTIME montelukast 10 mg Oral AT BEDTIME pantoprazole EC 40 mg Oral QDAY polyethylene glycol 3350 17 g Oral QDAY senna 8.6 mg Oral QDAY [2] lactated ringers, , Last Rate: 75 mL/hr at 03/08/252055 Cosigned by Sherif Shetty MD at 03/09/2025 5:26 PM CDT Associated attestation - Sherif Shetty MD - 03/09/2025 5:26 PM CDT ..I personally saw, examined, evaluated the patient. I reviewed the history, ROS, medications, data, laboratory data, diagnostic studies that are mentioned and documented in this note. I discussed the case, management and formulated the plan with the advanced practitioner. Sherif Shetty MD MPH CWSP The total time spent today was 10 minutes performing chart prep, reviewing data and visit with the patient which was independent of the nurse practitioner. * Justyna Casiano - 03/08/2025 8:50 AM CDT Images from the original note were not included. [facility] INTERNAL MEDICINE PROGRESS NOTE Patient: Marshall Espinal Jr. Sex: male Age: [age] year old Date of : 1960 Date of Admission: 03/01/2025 Date: 03/08/2025 LOS: 7 SUBJECTIVE Interval History: NAEON. Pt remains stable and reports no new symptoms or difficulites with ambulating. VAS carotid duplex bilateral US and renal ultrasound was conducted today, medicine team currently awaiting read results. Dental Surgery scheduled today for extraction of teeth at 4pm. Will continue to wait for discussions between teams for further updates on MV surgery time. An incentive spirometry was ordered for the patient. Hospital Course: Mr. Marshall Espinal is a 64 yo M with PMHx of HTN, CKD, COPD w h/o nephrolithiasis who presented to OSH for 2 weeks of left sided flank pain. At the OSH, CT Abd/pelvis order that showed complex, cystic lesion of the inferior left spleen and diverticulosis. Pt was transferred to [facility] for transition of care on 03/01. In the ED, pt was started on empiric vancomycin and zosyn. On 03/02, TTE was ordered for concerns of IE. TTE showed mild mitral regurgitation and 10 x 12 mm echodensity of anterior mitral valve leaflet. Blood cultures collected in the ED and OSH grew gram positive organisms and enterococcus faecalis on 03/03. On 03/03 ID, CTS, and ACS were consulted. Per blood results, ID switched patient antibiotics to ampicillin and ceftriaxone. Per CTS, a SINTIA is scheduled for 03/06 for follow up and further management of care. CTS also ordered a Panorex for potential work up of dental abscess on03/03 but was found to be unremarkable. ACS was consulted for concerns of splenic abscess but recommend against splenic drainage and signed off. On 03/04, ID ordered another blood culture for further evaluation. Preliminary result for blood cultures have come back for no growth so far 03/06. Pt received his SINTIA on 03/06. Dentistry was consulted for dental abscess on 03/06. SINTIA was read, concerns for large abscess on the mitral valve, CTS following and recommends urgent MV surgery with approval from nephrology, cardiology, dental, and ID. Plan for multidisplinary rounds on 03/08, following dental surgery for approval of MV surgery. Dental surgery scheduled for 03/08 for extraction of remaining teeth. Per CTS and nephrology a VAS carotid duplex bilateral and renal ultrasound was conducted 03/08. OBJECTIVE Vital Signs: Vitals: 03/07/25 1303 03/07/25 2215 03/08/25 0440 03/08/25 0923 BP: 116/77 122/76 125/73 125/73 Pulse: 96 97 97 Resp: 18 18 Temp: 97.3 ??F (36.3 ??C) 97.4 ??F (36.3 ??C) 98.1 ??F (36.7 ??C) SpO2: 96% 92% 93% Weight: Height: Temp Min: 96.3 ??F (35.7 ??C) Max: 98.5 ??F (36.9 ??C), Pulse Min: 82 Max: 108, Resp Min: 12 Max: 23, BP Min: 108/67 Max: 138/77 Intake & Output: In: 790 [P.O.:790] Out: 0 Physical Exam: Physical Exam Constitutional: Appearance: Normal appearance. He is normal weight. Cardiovascular: Rate and Rhythm: Normal rate and regular rhythm. Pulmonary: Effort: Pulmonary effort is normal. Breath sounds: Normal breath sounds. Abdominal: General: Abdomen is flat. Bowel sounds are normal. Palpations: Abdomen is soft. Musculoskeletal: General: Normal range of motion. Skin: General: Skin is warm. Neurological: General: No focal deficit present. Mental Status: He is alert and oriented to person, place, and time. Psychiatric: Mood and Affect: Mood normal. Current Medications: Scheduled: Medications[1] Continuous: Medications[2] PRN: Medications[3] Significant Lab Results: Recent Labs Component Name 03/08/25 0506 03/07/25 0526 03/06/25 0424 POTASSIUM 4.1 4.2 4.1 CO2 20* 21* 20* BUN 32* 30* 30* CREATININE 3.25* 3.09* 3.16* EGFR 20* 22* 21* GLUCOSE 101* 93 93 CALCIUM 9.6 9.2 9.7 Microbiology: Microbiology Results (Displays last 21 days for this encounter ONLY) Procedure Component Value - Date/Time CULTURE BLOOD [[id number]] (Normal) Collected: 03/04/25 1109 Lab Status: Preliminary result Specimen: Blood Peripheral Updated: 03/06/25 1331 Culture No growth CULTURE BLOOD [[id number]] (Normal) Collected: 03/04/25 1109 Lab Status: Preliminary result Specimen: Blood Peripheral Updated: 03/06/25 1331 Culture No growth MRSA PCR [[id number]] (Normal) Collected: 03/02/25 0847 Lab Status: Final result Specimen: Microbiology from Nasal Updated: 03/02/25 1541 MRSA DNA by PCR Not detected Narrative: Methicillin-resistant Staphylococcus aureus (MRSA) DNA is not detected (presumed not colonized withMRSA). CULTURE BLOOD [[id number]] (Abnormal) Collected: 03/02/25532 Lab Status: Final result Specimen: Blood Peripheral Updated: 03/07/25 1038 Culture Growth of Enterococcus faecalis Gram Stain Gram-positive cocci pairs and chains Narrative: Positive at 28 Hours 19 Minutes Refer to previously reported susceptibility testing, specimen number:[id number] CULTURE BLOOD [[id number]] (Abnormal) (Susceptibility) Collected: 03/02/25532 Lab Status: Final result Specimen: Blood Peripheral Updated: 03/07/25 1038 Culture Growth of Enterococcus faecalis Gram Stain Gram-positive cocci pairs and chains Narrative: Positive at 22 Hours 44 Minutes Susceptibility Enterococcus faecalis (1) Antibiotic Interpretation Microscan Method Status Ampicillin Susceptible <=2 ug/mL LAVELLE Final Gentamicin 500 Susceptible SYN-S ug/mL LAVELLE Final Vancomycin Susceptible 2 ug/mL LAVELLE Final Susceptibility Comments Streptomycin Synergy susceptible predicts synergy between ampicillin, penicillin, or vancomycin plus streptomycin when isolates are susceptible to these agents. Combination therapy with ampicillin, penicillin or vancomycin(for susceptible strains) plus an aminoglycoside is usually indicated for serious enterococcal infections such as endocarditis, UNLESS high-level resistance to both gentamicin and streptomycin is documented. Gentamicin Synergy susceptible predicts synergy between ampicillin, penicillin, or vancomycin plus gentamicin when isolates are susceptible to these agents. Combination therapy with ampicillin, penicillin, or vancomycin (for susceptible strains) plus an aminoglycoside is usually indicated for serious enterococcal infections such as endocarditis UNLESS high-level resistance to both gentamicin and streptomycin is documented. Invasive enterococcal infections require combination therapy with susceptible agents. ID consultation is strongly recommended where available. BLOOD CULTURE ID PANEL [[id number]] (Abnormal) Collected: 03/02/25532 Lab Status: Final result Specimen: Blood Peripheral Updated: 03/03/25 1033 Enterococcus faecalis Detected Van A/B Vancomycin Resistance Not detected Comment: Results indicate vancomycin-susceptible Enterococcus faecalis. Nasir/B not detected. Narrative: Blood Culture ID Panel performed by [employer] multiplex PCR. The Test panel includes: Gram Positive Bacteria: Enterococcus faecalis, Enterococcus faecium, Listeria monocytogenes, Staphylococcus (genus), Staphylococcus aureus, Staphylococcus epidermidis, Staphylococcus lugdunensis, Streptococcus (genus), Streptococcus agalactiae (Group B), Streptococcus pneumoniae, Streptococcus pyogenes (Group A). Gram Negative Bacteria: Acinetobacter baumannii complex, Bacteroides fragilis, Haemophilus influenzae, Neisseria meningitidis (encapsulated), Pseudomonas aeruginosa, Stenotrophomonas maltophilia, Enterobacterales (formerly Enterobacteriaceae family), Enterobacter cloacae complex, Escherichia coli, K lebsiella (formerly Enterobacter) aerogenes, Klebsiella oxytoca, Klebsiella pneumoniae group, Proteus (genus), Salmonella species, Serratia marcescens. YEAST: Yesi albicans, Yesi auris, Yesi glabrata, Yesi krusei, Yesi parapsilosis, Yesi tropicalis, Cryptococcus neoformans/gattii. Antimicrobial Resistance Genes: CTX-M (extended-spectrum beta-lactamase), IMP ([place] beta-lactamase), KPC (carbapenemase), mcr-1 (colistin resistance determinant) mecA/C (methicillin-resistance), mecA/C and MREJ (methicillin- resistance - MRSA), NDM ([place] jwxmjit-xiak-axmhmrdnn), OXA-48-like ( oxacillinase beta-lactamase),Nasir/B (vancomycin-resistance), VIM (Sangeeta Intergrom-Encoded [place] beta-lactamase). Imaging & Studies: Awaiting final results for VAS carotid duplex bilateral and US retroperitoneal ASSESSMENT & PLAN Abscess of spleen (POA: Yes) HTN (hypertension) (POA: Yes) Diverticulosis (POA: Yes) Enterococcal bacteremia (POA: Yes) Mitral valve vegetation (HCC) (POA: Yes) COPD (chronic obstructive pulmonary disease) (HCC) (POA: Yes) Endocarditis, suspected (POA: Yes) CKD (chronic kidney disease) stage 5, GFR less than 15 ml/min (HCC) (POA: Yes) #Abscess of Spleen #Diverticulosis #Bacteremia #Mitral Valve Vegetation #Endocarditis, suspected - CT Abd/Pelvis, OSH (02/28/25): New 8.1 x 5.2 x 5.1 cm relatively low- attentuation likely complex cystic lesion in the inferior spleen. This has developed since 12/05/2024 arguing against neoplasm and favring either subacute hematoma or abscess in the appropriate clinical setting. - Elevated WBC 13.2 at outside hospital, 11.4 this AM and afebrile - No pain on exam this AM, UA with no concern for infection so no reflex to culture - IR consulted for possible abscess, low suspicion of abscess based on imaging appearance. No indication for drainage at this time; if patient clinically worsens, could consider MRI w/ contrast but not currently indicated - Imaging finding likely splenic hematoma vs cyst - ACS consulted but low suspicion of abscess, given TTE results suggesting more secondary to infectious endocarditis - Per ID request and positive lab cultures for enterococcus faecalis, vancomycin and zosyn were stopped - Repeat blood cultures preliminary results showed no growth - SINTIA came back for large vegetation on mitral valve with severe mitral regurgitation. Per SINTIA, CTSrecommends multi team consult for approved recs to follow on surgery PLAN: - Continue ampicillin and ceftriaxone for now - Repeated Blood Cultures ordered, no growth on preliminary results - MRSA negative - CTS follows per SINTIA, request consults from dental (for tooth extraction), cardiology (for left cardiac cath prior to MV surgery), ID (for source of infection and appreciate antibiotic recs), nephrology (recs for MV surgery in setting of improved renal function) - Once all recs are placed, CTS will follow for MV surgery - Dental consulted, Dental surgery will occur today for teeth extraction 03/08 - Cardiology following, appreciate recs from nephrology prior to left cardiac cath - Nephrology consulted, pt is safe to proceed with MV surgery, awaiting results of renal ultrasound - CTS would like multicenter rounds or chat discussion of all consults for final approval on MV surgery - pt started on incentive spirometry for prevention of pneumonia #HTN - Continue home medication of Metoprolol succinate 25 mg and amlodipine 5 mg #COPD - Home meds include Trelegy, fluticasone propionate PLAN: - Incruse and symbicort while in-patient #CKD - avoid nephrotoxic agents and continue tight control of blood pressures - nephrology consulted, pt should proceed with cath and MV surgery Code: Full Code Diet: Diet Regular Electrolytes: Replete PRN PPx: SCDs only Dispo: 5 - 7 days at least The above assessment and plan will be discussed with the attending. This note is not final until attested by attending physician. Justyna Casiano MS3 [facility] 03/08/2025 10:24 AM [1] 0.9% NaCl 3 mL Intracatheter q8h amLODIPine 5 mg Oral QDAY ampicillin 2 g Intravenous q8h budesonide-formoterol 2 puff Inhalation BID And umeclidinium 1 puff Inhalation QDAY cefTRIAXone 2 g Intravenous q12h [Held by Provider] heparin 5,000 Units Subcutaneous q8h melatonin 3 mg Oral AT BEDTIME metoprolol succinate XL 24hr 25 mg Oral AT BEDTIME montelukast 10 mg Oral AT BEDTIME pantoprazole EC 40 mg Oral QDAY polyethylene glycol 3350 17 g Oral QDAY senna 8.6 mg Oral QDAY [2] lactated ringers, , Last Rate: 75 mL/hr at 03/08/25 0923 [3] SALINE LOCK, INSERT AND MAINTAIN AND 0.9% NaCl AND 0.9% NaCl acetaminophen dextrose IV for hypoglycemia OR dextrose IV for hypoglycemia OR glucagon fluticasone propionate glucose (Diabetic Use) gel Cosigned by Adalberto Arroyo MD at 03/08/2025 11:23 AM CDT Associated attestation - Adalberto Arroyo MD - 03/08/2025 11:23 AM CDT This note is for educational purpose only, please see attestation associated with resident note. Adalberto Arroyo MD 03/08/2025 11:23 AM * Amy Rosas MD - 03/08/2025 8:43 AM CDT [facility] Infectious Diseases Progress notes : Patient Name: Marshall Espinal Jr. 1960 Room: [facility] Date of Admission: 03/01/2025 Date of Service: 03/08/2025 Primary Care Physician: Provider Unknown Attending Physician: Adalberto Arroyo MD Reason for Infectious Disease Consultation Possible bacteremia vs contaminant, unknown source History of Present Illness HPI: Marshall Espinal Jr. is a 65 year old white male with PMH of HTN, CKD, COPD, hx of nephrolithiasis who presents from an OSH ([place]) for a splenic abscess. Before presenting to OSH, patient had been experiencing L-sided pain for 2 weeks. Also having fevers intermittently ([id number] ??F, was on and off since 02/24/25). CT Abd/Pelvis 02/28 notable for New 8.1 x 5.2 x 5.1 cm relatively low-attentuation likely complex cystic lesion in the inferior spleen. This has developed since 12/05/2024 arguing against neoplasm and favring either subacute hematoma orabscess in the appropriate clinical setting and moderate diverticulosis w/o evidence of diverticulitis. Patient reports no prior history of diverticulitis. Patient denied any issues with trauma tohis left side with respect to the splenic abscess, and he did not notice any new changes to his bowel habits or endorsed abdominal pain with respect to the diverticulitis. Per IR, splenic fluid collection with low suspicion for abscess (more likely either hematoma vs cyst) based on imaging appearance and no plans to intervene. BC revealing 1/2 cultures positive for GPC at OSH. Transferred to [facility] 03/01 for further evaluation. VSS on admission. Labs notable for negative Mononucleosis screen and MRSA PCR. Echo 03/02 demonstrating an echodensity 10 mm x 12 mm attached to the anterior mitral leaflet, possible differential includes vegetation, torn chordae. Repeat blood cultures here 1/2 positivefor E Faecalis. Patient reports stable L-sided abdominal/back discomfort (4/10 pain). Denies fever,chills, n/v, dysuria, dyschezia. Complains of headache. Interval history : No fevers, c/o left sided pain Planned for teeth extraction today WBC 12.1 < 11.1 hb 9.3 Medical History Past Medical History[1] Surgical History Past Surgical History[2] Social History Smoking: Denies Alcohol: Quit 4 months ago. Before, was a heavy drinker Illicit drugs/IV drug use: Denies history Marital status: Children: 6 Living situation: Lives with Pets: 1 dog. 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 Family History Family History[3] I have confirmed the past medical, surgical, family and social history. Review of Systems Review of Systems Constitutional: Positive for fever. Negative for chills. Respiratory: Negative for shortness of breath. Cardiovascular: Negative for chest pain and palpitations. Gastrointestinal: Positive for abdominal pain. Negative for constipation, diarrhea, nausea and vomiting. Genitourinary: Negative for dysuria. Musculoskeletal: Negative for myalgias. Neurological: Positive for headaches. Allergies Allergies[4] Antimicrobial History Current Antibiotics Ceftriaxone 03/03 - present Ampicillin 03/03 - present Prior Antibiotics At U Zosyn 03/02 - 03/03 Vancomycin 03/01 - 03/03 Prior Antibiotics at OSH Home Medications Prior to Admission medications Medication Sig Start Date End Date Taking? Authorizing Provider amLODIPine (Norvasc) 5 MG tablet Take 1 (one) tablet by mouth once daily Yes ProviderJeanne MD metoprolol succinate XL 24hr (Toprol XL) 25 MG tablet Take 1 (one) tablet by mouth once daily Yes ProviderJeanne MD montelukast (Singulair) 10 MG tablet Take 1 (one) tablet by mouth at bedtime Yes ProviderJeanne MD omeprazole (PriLOSEC) 40 MG capsule Take 1 (one) capsule by mouth daily before breakfast Yes ProviderJeanne MD Inpatient Medications Medications[5] Medications[6] Objective Vitals BP 125/73 (BP Location: Right arm, Patient Position: Lying) Pulse 97 Temp 98.1 ??F (36.7 ??C) (Oral) Resp 18 Ht 1.702 m (5' 7) Wt 81 kg (178 lb 8 oz) SpO2 93% Temp (24hrs), Av.6 ??F (36.4 ??C), Min:97.3 ??F (36.3 ??C), Max:98.1 ??F (36.7 ??C) Physical Exam Constitutional: Alert, cooperative, no distress Head, Ears, Nose: Normocephalic, atraumatic. External ears, nose normal Eyes: Conjunctivae/corneas clear. No scleral icterus. Neck: Supple, no meningeal signs Oral: Dentition poor, no thrush Cardiovascular: S1, S2 normal. No murmurs, rubs, or gallops. Respiratory: Good air entry, clear to auscultation bilaterally without rales, rhonchi, or wheezes. GI: Soft,; bowel sounds normal. No peritoneal signs. Mild TTP in the L flank region Musculoskeletal: Extremities normal, atraumatic, no cyanosis or edema Skin: No rashes Hem/Lymphatic: No palpable cervical or supraclavicular nodes Psych: Normal mood and affect. Neurologic: Awake, alert, oriented. No gross abnormality Lines: PIV Lab Review ID LABS - Mononucleosis negative 03/02 CBC: Recent Labs Component Name 03/08/25 0505 03/07/2552503/06/25 042 WBC 12.1* 11.9* 11.8* RBC 3.44* 3.20* 3.06* HGB 9.3* 8.6* 8.4* HCT 29.4* 27.6* 26.2* MCV 85.5 86.3 85.6 BMP: Recent Labs Component Name 03/08/25 0506 03/07/25 0503/06/25 0424 NA 136 135* 137 CL 107 106 108* CO2 20* 21* 20* BUN 32* 30* 30* CREATININE 3.25* 3.09* 3.16* ALB 3.2* 2.9* 2.9* PROT 8.3 7.9 7.8 estimated creatinine clearance is 23.1 mL/min (A) (by C-G formula based on SCr of 3.25 mg/dL (H)). LFTs: Recent Labs Component Name 03/08/25 0506 03/07/2552503/06/25 0424 ALKPHOS 152* 151* 162* ALT 11 12 11 AST 11 17 14 Coagulation: Recent Labs Component Name 03/08/25 050 PT 14.0 INR 1.1 Microbiology, Imaging and other diagnostic tests MICROBIOLOGY: Blood culture: 03/02 --> positive for E Faecalis 08/21 03/04 08/21 ngtd Urine culture: Sputum Culture: Other Serologies: MRSA nares negative 03/02 HIV non reactive Hbc IgM negative Anti HBS negative Hbsag negative Anti HCV negative HISTOPATHOLOGY: None at this admission IMAGING & PROCEDURES: I have independently reviewed all pertinent images. Reports in chart. CT from OSH OSH (02/28/25): New 8.1 x 5.2 x 5.1 cm relatively low-attentuation likely complex cystic lesion in the inferior spleen. This has developed since 12/05/2024 arguing against neoplasm and favring either subacute hematoma or abscess in the appropriate clinical setting. Moderate diverticulosis without evidence of diverticulitis. Moderate bilateral fat-containing inguinal hernia. TTE 03/02 The left ventricle is normal in size, with normal systolic function and an estimated ejection fraction of 64 % by biplane method of disks. Left ventricular wall motion is normal. * The left ventricular diastolic function is normal. * The mitral valve is displaying restricted posterior leaflet motion with calcification. There is an echodensity 10 mm x 12 mm attached to the anterior mitral leaflet, possible differential includes vegetation, torn chordae. Need to correlate clinically and SINTIA if clinical suspicion of endocarditis. * There is mild tricuspid valve regurgitation. * There is mild mitral valve regurgitation. * The pulmonary artery systolic pressure is normal, 27 mmHg. SINTIA 03/06/25 Summary * There is a 1.16 cm x 0.78 cm mobile vegetation attached to the atrial surface of the anterior mitral valve leaflet tip (around the A2/A3 scallop tip). * There is moderate to severe mitral valve regurgitation with a very eccentric posterior jet that originates at the site of the vegetation. Mitral valve regurgitant volume is 30 ml regurgitant fraction is calculated 33%. 3-D ERO area is 0.36 cm2. Vena contracta width (2D) 0.42 cm. 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 * Agitated saline contrast study at rest and with Valsalva is negative for a shunt. * Normal left ventricular systolic function. Visually estimated LV EF is 55-60%. * Right ventricular systolic function is grossly normal. 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 This has developed since 12/05/2024 arguing against neoplasm and favring either subacute hematoma or abscess in the appropriate clinical setting. - Per IR, splenic fluid collection with low suspicion of abscess based on imaging appearance. Recommend conservative management - Blood cultures from OSH revealed 1/2 cultures positive stain for gram positive cocci. Repeat blood cultures collected here 1/2 positive for E Faecalis - Echo 03/02 with an an echodensity 10 mm x 12 mm attached to the anterior mitral leaflet, possible differential includes vegetation, torn chordae. SINTIA confirmed vegetation Diverticulosis - CT Abd/Pelvis, OSH (02/28/25): Moderate diverticulosis without evidence of diverticulitis. Moderate bilateral fat-containing inguinal hernia. - Pt will L-sided abdominal tenderness for the past 2 weeks. Stable and 4/10 pain. Per pt, no hx ofdiverticulosis and no change in bowel movements. - surgery reviewed no intervention recommended Poor dentition - Per pt, was supposed to see a dentist for extraction but unable to make 02/27 apt bc of this admission. Poor dentition on exam. Pending dental consult Renal Function: estimated creatinine clearance is 23.1 mL/min (A) (by C-G formula based on SCr of 3.25 mg/dL (H)). Allergies: Allergies[7] Plan/Recommendations - Continue ampicillin and Ceftriaxone. Final duration will be decided plan for surgery is finalized. - agree with CTS workup. -As part of routine screening, please obtain HIV 4th generation screen and HCV antibody with reflexto HCV RNA quantitative (universally recommended per CDC guidelines) Check CBC with auto diff and CMP at least weekly while on IV antibiotics Thank you for allowing us to participate in the care of this patient. We will continue to follow and monitor with you closely. Patient seen, examined, and case/plan were discussed with my attending physician, Dr. Alejandra Rooney. Case was discussed with primary team. GARY Rodriguez, Infectious Disease Fellow [place] [id number] [facility], [address] [place] [address] Clinic phone [phone], ID clinic fax number : [phone] [1] Past Medical History: Diagnosis Date CKD (chronic kidney disease) COPD (chronic obstructive pulmonary disease) (HCC) GERD (gastroesophageal reflux disease) HTN (hypertension) Nephrolithiasis Obstructive uropathy [2] Past Surgical History: Procedure Laterality Date CYSTOSCOPY cystoscopy with ureteral stent placement Retinal Detachment Repair Bilateral [3] Family History Problem Relation Name Age of Onset COPD - Chronic Obstructive Pulmonary Disease Mother Renal Disease Father [4] No Known Allergies [5] 0.9% NaCl 3 mL Intracatheter q8h amLODIPine 5 mg Oral QDAY ampicillin 2 g Intravenous q8h budesonide-formoterol 2 puff Inhalation BID And umeclidinium 1 puff Inhalation QDAY cefTRIAXone 2 g Intravenous q12h [Held by Provider] heparin 5,000 Units Subcutaneous q8h melatonin 3 mg Oral AT BEDTIME metoprolol succinate XL 24hr 25 mg Oral AT BEDTIME montelukast 10 mg Oral AT BEDTIME pantoprazole EC 40 mg Oral QDAY polyethylene glycol 3350 17 g Oral QDAY senna 8.6 mg Oral QDAY [6] lactated ringers, [7] No Known Allergies Cosigned by Alejandra Rooney MD at 03/09/2025 7:28 AM CDT Associated attestation - Alejandra Rooney MD - 03/09/2025 7:28 AM CDT I have reviewed the record and independently examined the patient. I agree with the findings and plan of care as documented by the house nurse. Marshall Espinal Jr. is a 65 year old male with PMH of HTN, CKD, COPD and nephrolithiasis found to have E. faecalis bacteremia. Assessment 1. E.faecalis bacteremia with concern for MV endocarditis. SINTIA showed large vegetation. Based on CTS note, surgery planned for next week. On amp and ceftriaxone. First negative blood culture on 03/04. 2. Severe sepsis. From (1) 3. Concern for splenic abscess. Evaluated by IR (low suspicion for abscess). 4. Poor dentition. Dental team following. Recommendations -Continue antibiotics 40 minutes spent reviewing records, examining patient, providing updates to patient/family, coordinating care and documentation. Alejandra Rooney MD, PhD, [facility] 03/08/25 * Cj Carpenter MD - 03/08/2025 7:37 AM CDT Images from the original note were not included. [facility] Internal Medicine Progress Note Name: Marshall Espinal Jr. Room/Bed: [facility]/ : 1960 65 year old PCP: Provider Unknown Admit Date/Time: 03/01/2025 9:44 PM LOS: 7 Subjective Interval update: NAEON. Pt remains stable and reports no new symptoms or difficulites with ambulating. VAS carotid duplex bilateral US and renal ultrasound was conducted today, medicine team currently awaiting read results. Dental Surgery scheduled today for extraction of teeth at 4pm. Will continue to wait for discussions between teams for further updates on MV surgery time. An incentive spirometry was ordered for the patient. Hospital course: Marshall Espinal is a 64 year old male with PMHx of HTN, CKD, COPD, hx of recurrent nephrolithiasiswho presents from an OSH ([facility]) for a splenic abscess. Pain on left side had been happening for2 weeks. Patient has a history of kidney stones and had similar symptoms in the past, so he thoughtit was another occurrence of a kidney stone. He was seen as [facility] and was told that he was going to have imaging done to rule out kidney stones, and was found to have a splenic abscess and diverticulitis. Patient reports no prior history of diverticulitis. Patient denied any issues withtrauma to his left side with respect to the splenic abscess, and he did not notice any new changes to his bowel habits. Patient reported that he was only taking Pepto bismol for his pain. Patient otherwise well on exam with no fevers. IR consutled on admission, did not feel strongly that it was an abscess and recommended against drainage. Underwent ECHO 03/02 which revealed an echodensity 10 mm x12 mm attached to the anterior mitral leaflet, possible differential includes vegetation, torn chord ae. Cardiology was consulted, and SINTIA ordered. Blood cultures from OSH revealed 1/2 cultures positive stain for gram positive cocci. Repeat blood cultures collected at [facility] revealed similar findings,1/2 positive for gram cocci in pairs and chains and later positive for enterococci on 03/03. Infectious disease consulted for recommendations regarding bacteremia with unclear source. On 03/04, ID ordered another blood culture for further evaluation. Preliminary result for blood cultures have come back for no growth so far 03/06. Pt received his SINTIA on 03/06. Dentistry was consulted for dental abscess on 03/06. SINTIA was read, concerns for large abscess on the mitral valve, CTS following and recommends urgent MV surgery with approval from nephrology, cardiology, dental, and ID. Plan for multidisplinary rounds on 03/08, following dental surgery for approval of MV surgery. Dental surgery scheduled for 03/08 for extraction of remaining teeth. Per CTS and nephrology a VAS carotid duplex bilateral and renal ultrasound was conducted 03/08. Objective Temp: [97.3 ??F (36.3 ??C)-98.1 ??F (36.7 ??C)] 98.1 ??F (36.7 ??C) Pulse: [91-97] 97 Resp: [18] 18 BP: (116-133)/(73-89) 125/73 Weight change: Intake/Output Summary (Last 24 hours) at 03/08/2025 0737 Last data filed at 03/08/2025 0424 Gross per 24 hour Intake 340 ml Output 0 ml Net 340 ml Physical Exam: Physical Exam Constitutional: General: He is not in acute distress. Appearance: Normal appearance. He is not ill-appearing. HENT: Head: Normocephalic and atraumatic. Mouth/Throat: Mouth: Mucous membranes are moist. Pharynx: No oropharyngeal exudate or posterior oropharyngeal erythema. Comments: Multiple missing teeth, dental caries Eyes: General: No scleral icterus. Extraocular Movements: Extraocular movements intact. Conjunctiva/sclera: Conjunctivae normal. Cardiovascular: Rate and Rhythm: Normal rate and regular rhythm. Pulses: Normal pulses. Heart sounds: Normal heart sounds. No murmur heard. Pulmonary: Effort: Pulmonary effort is normal. No respiratory distress. Breath sounds: Normal breath sounds. No wheezing. Abdominal: General: Abdomen is flat. Bowel sounds are normal. There is no distension. Palpations: Abdomen is soft. Tenderness: There is no abdominal tenderness. There is no guarding. Comments: Musculoskeletal: General: No swelling, tenderness or deformity. Skin: General: Skin is warm and dry. Coloration: Skin is not jaundiced. Findings: No bruising. Neurological: General: No focal deficit present. Mental Status: He is alert and oriented to person, place, and time. Mental status is at baseline. Cranial Nerves: No cranial nerve deficit. Sensory: No sensory deficit. Psychiatric: Mood and Affect: Mood normal. Behavior: Behavior normal. Scheduled Medications: Medications[1] PRN Medications: Medications[2] Continuous Infusions: Medications[3] Laboratory Data Recent Labs Component Name 03/08/25 0505 03/07/25 0526 03/06/25 0424 WBC 12.1* 11.9* 11.8* HGB 9.3* 8.6* 8.4* HCT 29.4* 27.6* 26.2* PLTCOUNT 557* 528* 501* MCV 85.5 86.3 85.6 Recent Labs Component Name 03/08/25 0505 PT 14.0 INR 1.1 Recent Labs Component Name 03/08/25 0506 03/07/25 0526 03/06/25 0424 NA 136 135* 137 POTASSIUM 4.1 4.2 4.1 CL 107 106 108* CO2 20* 21* 20* BUN 32* 30* 30* CREATININE 3.25* 3.09* 3.16* Recent Labs Component Name 03/08/25 0506 03/07/25 0526 03/06/25 0424 CALCIUM 9.6 9.2 9.7 PHOS 4.2 4.2 4.1 Recent Labs Component Name 03/08/25 0506 03/07/25 0526 03/06/25 0424 PROT 8.3 7.9 7.8 ALB 3.2* 2.9* 2.9* ALKPHOS 152* 151* 162* AST 11 17 14 ALT 11 12 11 TBILI 0.1* 0.1* 0.1* No results for input(s): CKTOTAL, CKMBCK2, TROPONINI in the last 58207 hours. Recent Labs Component Name 03/03/25 0500 VANCORNDM 17.1 Microbiology Results (Displays last 21 days for this encounter ONLY) Procedure Component Value - Date/Time CULTURE BLOOD [[id number]] (Normal) Collected: 03/04/25 1109 Lab Status: Preliminary result Specimen: Blood Peripheral Updated: 03/06/25 1331 Culture No growth CULTURE BLOOD [[id number]] (Normal) Collected: 03/04/25 1109 Lab Status: Preliminary result Specimen: Blood Peripheral Updated: 03/06/25 1331 Culture No growth MRSA PCR [[id number]] (Normal) Collected: 03/02/25 0847 Lab Status: Final result Specimen: Microbiology from Nasal Updated: 03/02/25 1541 MRSA DNA by PCR Not detected Narrative: Methicillin-resistant Staphylococcus aureus (MRSA) DNA is not detected (presumed not colonized withMRSA). CULTURE BLOOD [[id number]] (Abnormal) Collected: 03/02/25532 Lab Status: Final result Specimen: Blood Peripheral Updated: 03/07/25 1038 Culture Growth of Enterococcus faecalis Gram Stain Gram-positive cocci pairs and chains Narrative: Positive at 28 Hours 19 Minutes Refer to previously reported susceptibility testing, specimen number:[id number] CULTURE BLOOD [[id number]] (Abnormal) (Susceptibility) Collected: 03/02/25532 Lab Status: Final result Specimen: Blood Peripheral Updated: 03/07/25 1038 Culture Growth of Enterococcus faecalis Gram Stain Gram-positive cocci pairs and chains Narrative: Positive at 22 Hours 44 Minutes Susceptibility Enterococcus faecalis (1) Antibiotic Interpretation Microscan Method Status Ampicillin Susceptible <=2 ug/mL LAVELLE Final Gentamicin 500 Susceptible SYN-S ug/mL LAVELLE Final Vancomycin Susceptible 2 ug/mL LAVELLE Final Susceptibility Comments Streptomycin Synergy susceptible predicts synergy between ampicillin, penicillin, or vancomycin plus streptomycin when isolates are susceptible to these agents. Combination therapy with ampicillin, penicillin or vancomycin(for susceptible strains) plus an aminoglycoside is usually indicated for serious enterococcal infections such as endocarditis, UNLESS high-level resistance to both gentamicin and streptomycin is documented. Gentamicin Synergy susceptible predicts synergy between ampicillin, penicillin, or vancomycin plus gentamicin when isolates are susceptible to these agents. Combination therapy with ampicillin, penicillin, or vancomycin (for susceptible strains) plus an aminoglycoside is usually indicated for serious enterococcal infections such as endocarditis UNLESS high-level resistance to both gentamicin and streptomycin is documented. Invasive enterococcal infections require combination therapy with susceptible agents. ID consultation is strongly recommended where available. BLOOD CULTURE ID PANEL [[id number]] (Abnormal) Collected: 03/02/25532 Lab Status: Final result Specimen: Blood Peripheral Updated: 03/03/25 1033 Enterococcus faecalis Detected Van A/B Vancomycin Resistance Not detected Comment: Results indicate vancomycin-susceptible Enterococcus faecalis. Nasir/B not detected. Narrative: Blood Culture ID Panel performed by [employer] multiplex PCR. The Test panel includes: Gram Positive Bacteria: Enterococcus faecalis, Enterococcus faecium, Listeria monocytogenes, Staphylococcus (genus), Staphylococcus aureus, Staphylococcus epidermidis, Staphylococcus lugdunensis, Streptococcus (genus), Streptococcus agalactiae (Group B), Streptococcus pneumoniae, Streptococcus pyogenes (Group A). Gram Negative Bacteria: Acinetobacter baumannii complex, Bacteroides fragilis, Haemophilus influenzae, Neisseria meningitidis (encapsulated), Pseudomonas aeruginosa, Stenotrophomonas maltophilia, Enterobacterales (formerly Enterobacteriaceae family), Enterobacter cloacae complex, Escherichia coli, K lebsiella (formerly Enterobacter) aerogenes, Klebsiella oxytoca, Klebsiella pneumoniae group, Proteus (genus), Salmonella species, Serratia marcescens. YEAST: Yesi albicans, Yesi auris, Yesi glabrata, Yesi krusei, Yesi parapsilosis, Yesi tropicalis, Cryptococcus neoformans/gattii. Antimicrobial Resistance Genes: CTX-M (extended-spectrum beta-lactamase), IMP ([place] beta-lactamase), KPC (carbapenemase), mcr-1 (colistin resistance determinant) mecA/C (methicillin-resistance), mecA/C and MREJ (methicillin- resistance - MRSA), NDM ([place] lvptybx-mapp-wptcjxnlu), OXA-48-like ( oxacillinase beta-lactamase),Nasir/B (vancomycin-resistance), VIM (Sangeeta Intergrom-Encoded [place] beta-lactamase). Imaging ECHO SINTIA 03/06 Summary: * There is a 1.16 cm x 0.78 cm mobile vegetation attached to the atrial surface of the anterior mitral valve leaflet tip (around the A2/A3 scallop tip). * There is moderate to severe mitral valve regurgitation with a very eccentric posterior jet that originates at the site of the vegetation. Mitral valve regurgitant volume is 30 ml regurgitant fraction is calculated 33%. 3-D ERO area is 0.36 cm2. Vena contracta width (2D) 0.42 cm. 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 * Agitated saline contrast study at rest and with Valsalva is negative for a shunt. * Normal left ventricular systolic function. Visually estimated LV EF is 55-60%. * Right ventricular systolic function is grossly normal. XR Panorex 03/03: FINDINGS: Multiple dental restorations are identified, and numerous teeth are absent. There are scattered dental caries. No acute mandibular fracture is identified. Both temporomandibular joints are intact. Lucencies within the right mandibular presumed location of absent of the molar and premolar teeth. IMPRESSION: Lucencies within the right mandibular presumed location of absent of the molar and premolar teeth. Recommend dental consultation. Relevant labs and imaging data reviewed on Epic. Assessment and Plan Abscess of spleen (POA: Yes) HTN (hypertension) (POA: Yes) Diverticulosis (POA: Yes) Enterococcal bacteremia (POA: Yes) Mitral valve vegetation (HCC) (POA: Yes) COPD (chronic obstructive pulmonary disease) (HCC) (POA: Yes) Endocarditis, suspected (POA: Yes) CKD (chronic kidney disease) stage 5, GFR less than 15 ml/min (HCC) (POA: Yes) Assessment & Plan Abscess of spleen Diverticulosis Enterococcal bacteremia Mitral valve vegetation (HCC) Endocarditis, suspected - CT Abd/Pelvis, OSH (02/28/25): New 8.1 x 5.2 x 5.1 cm relatively low- attentuation likely complex cystic lesion in the inferior spleen. This has developed since 12/05/2024 arguing against neoplasm and favring either subacute hematoma or abscess in the appropriate clinical setting. - Elevated WBC 13.2 at outside hospital, 11.4 this AM and afebrile - IR consulted for possible abscess, low suspicion of abscess based on imaging appearance. No indication for drainage at this time; if patient clinically worsens, could consider MRI w/ contrast but not currently indicated. Imaging finding likely splenic hematoma vs cyst - UA with no concern for infection so no reflex to culture - Blood cultures from OSH revealed 1/2 cultures positive stain for gram positive cocci. Repeat blood cultures collected here revealed similar findings, 1/2 positive for gram cocci in pairs and chainsand later positive for enterococci faecalis - TTE revealed an echodensity 10 mm x 12 mm attached to the anterior mitral leaflet, possible differential includes vegetation, torn chordae. - Denies any IVDU, other drug use - Had tooth extraction 3 months ago, was scheduled for additional tooth extraction on 02/27 but missed while admitted - IR consulted for possible abscess, low suspicion of abscess based on imaging appearance. No indication for drainage at this time; if patient clinically worsens, could consider MRI w/ contrast but not currently indicated - Imaging finding likely splenic hematoma vs cyst - ACS consulted but low suspicion of abscess, given TTE results suggesting more secondary to infectious endocarditis - Per ID request and positive lab cultures for enterococcus faecalis, vancomycin and zosyn were stopped - MRSA negative PLAN: - Continue ampicillin and ceftriaxone for now - Repeated Blood Cultures ordered, no growth on preliminary results - CTS follows per SINTIA, request consults from dental (for tooth extraction), cardiology (for left cardiac cath prior to MV surgery), ID (for source of infection and appreciate antibiotic recs), nephrology (recs for MV surgery in setting of improved renal function) - Once all recs are placed, CTS will follow for MV surgery - Dental consulted, Dental surgery will occur today for teeth extraction 03/08 - Cardiology following, appreciate recs from nephrology prior to left cardiac cath - Nephrology consulted, pt is safe to proceed with MV surgery, awaiting results of renal ultrasound - CTS would like multicenter rounds or chat discussion of all consults for final approval on MV surgery - pt started on incentive spirometry for prevention of pneumonia HTN (hypertension) - Home Rx: Metoprolol succinate 25 mg PO QHS, amlodipine 5 mg PO QD - BP stable, 119-126 systolic this AM PLAN: - Continue metoprolol succinate 25 - amLODIPine (Norvasc) tablet 5 mg COPD (chronic obstructive pulmonary disease) ([facility]) - Home meds include Trelegy, fluticasone propionate PLAN: - Incruse and symbicort while in-patient CKD (chronic kidney disease) stage 5, GFR less than 15 ml/min ([facility]) Cr-3.44-3.62 PLAN: - avoid nephrotoxic agents and continue tight control of blood pressures - nephrology consulted, pt should proceed with cath and MV surgery Incidental findings requiring follow up: NA Diet: DIET NPO Except: SIPS WITH MEDS DVT Prophylaxis: SCDs only Code Status: Full Code [place] Candidate?: No Electronically Signed By: Cj Carpenter MD 03/08/2025 7:37 AM The above assessment and plan will be discussed with attending physician. This note is not final until attested by the attending physician. [1] 0.9% NaCl 3 mL Intracatheter q8h amLODIPine 5 mg Oral QDAY ampicillin 2 g Intravenous q8h budesonide-formoterol 2 puff Inhalation BID And umeclidinium 1 puff Inhalation QDAY cefTRIAXone 2 g Intravenous q12h [Held by Provider] heparin 5,000 Units Subcutaneous q8h melatonin 3 mg Oral AT BEDTIME metoprolol succinate XL 24hr 25 mg Oral AT BEDTIME montelukast 10 mg Oral AT BEDTIME pantoprazole EC 40 mg Oral QDAY polyethylene glycol 3350 17 g Oral QDAY senna 8.6 mg Oral QDAY [2] SALINE LOCK, INSERT AND MAINTAIN AND 0.9% NaCl AND 0.9% NaCl acetaminophen dextrose IV for hypoglycemia OR dextrose IV for hypoglycemia OR glucagon fluticasone propionate glucose (Diabetic Use) gel [3] lactated ringers, Cosigned by Adalberto Arroyo MD at 03/08/2025 1:19 PM CDT Associated attestation - Adalberto Arroyo MD - 03/08/2025 1:19 PM CDT I have seen and examined the patient with the resident and I agree with the findings and plan of care as documented by the resident. In addition: Poor dentition with multiple decayed teeth with retained roots and exposed nerve tissue- pending Dental extraction today, greatly appreciate the dentist assistance Date of Service: 03/08/2025 Adalberto Arroyo MD * Ofelia Mckee, [employer] - 03/08/2025 7:25 AM CDT CARDIAC SURGERY Progress note Patient Name: Marshall Espinal Jr. : 1960 Private Siding Stapler: NA; PCP: Provider Unknown Referring Facility: [facility] Subjective: 64 year old male with past medical history for HTN, CKD w/ hx of nephrolithiasis and GERDwho presented from OSH for surgical evaluation of his mitral valve endocarditis. Patient developed fever/chills, left sided flank pain - CT abdomen/pelvix with concern for splenic abscess, BCx + who is being evaluated for E. Faecalis - echo w/ MV vegetation 1x1.2cm w/ mild MR - transfer to [facility] Patient is now afebrile, WBC stable at 11, Cr. Elevated at 3 (unclear baseline). Cardiology consulted for SINTIA. Patient reports night sweats and fevers on and off for months, prompting him to stop drinking. He was drinking vodka every day prior to 6 months ago.He developed a kidney stone one month JIG FITTER, he had no prior knowledge of kidney issues prior to developing the kidney stone. 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 His left sided pain began shortly after that occurrence. 03/07/25: Pt resting, not in distress. VSS. Disciplinary meeting tomorrow determine surgery time line; ID/nephrology/cardiology/CTS. SINTIA completed. Dentist following; recommendations tooth/teeth extraction prior to surgery. Patient aware of SELWYN on CKD and high risk of HD after surgery. 03/08: Pt tearful today, concerned about and after care. Will discuss timing of tooth extraction with dentist. OR possible next week after [facility] Cardiothoracic High Risk Variables CHRONIC KIDNEY DISEASE CKD stage 4 and CKD Stage 5 Endocarditis Periodontal disease Were these Present on Admission? Yes Patient Active Problem List Diagnosis Date Noted CKD (chronic kidney disease) stage 5, GFR less than 15 ml/min ([facility]) 03/04/2025 Priority: Not Prioritized Enterococcal bacteremia 03/03/2025 Priority: Not Prioritized Mitral valve vegetation ([facility]) 03/03/2025 Priority: Not Prioritized COPD (chronic obstructive pulmonary disease) ([facility]) 03/03/2025 Priority: Not Prioritized Endocarditis, suspected 03/03/2025 Priority: Not Prioritized Diverticulosis 03/02/2025 Priority: Not Prioritized HTN (hypertension) 03/01/2025 Priority: Not Prioritized Abscess of spleen 02/28/2025 Priority: Not Prioritized Past Medical History[1] Past Surgical History[2] Medications[3] Allergies[4] Social History Tobacco Use Smoking status: Former Current packs/day: 0.00 Types: Cigarettes Quit date: 02/1971 Years since quittin.0 Smokeless tobacco: Never Substance Use Topics Alcohol use: Not Currently Alcohol/week: 2.0 - 3.0 standard drinks of alcohol Types: 2 - 3 Alcoholic drink(s) per week Comment: last drink was roughly 6 months ago Family History[5] Objective: BP 125/73 (BP Location: Right arm, Patient Position: Lying) Pulse 97 Temp 98.1 ??F (36.7 ??C) (Oral) Resp 18 Ht 1.702 m (5' 7) Wt 81 kg (178 lb 8 oz) SpO2 93% General appearance: alert, cooperative, no distress Lungs: breath sounds normal and symmetric; no rales or wheezes Heart: regular rhythm, normal S1 and S2, grade 3/6 systolic murmur at the LSB radiating to the axillia Abdomen: soft without mass, non-tender, with normal bowel sounds Extremities: no clubbing, cyanosis or edema Data ReviewCBC: Recent Labs Component Name 03/08/25 0505 03/07/25 0526 03/06/25 0424 WBC 12.1* 11.9* 11.8* HGB 9.3* 8.6* 8.4* HCT 29.4* 27.6* 26.2* PLTCOUNT 557* 528* 501* BMP: Recent Labs Component Name 03/08/25 0506 03/07/25 0526 03/06/25 0424 POTASSIUM 4.1 4.2 4.1 CO2 20* 21* 20* BUN 32* 30* 30* CREATININE 3.25* 3.09* 3.16* GLUCOSE 101* 93 [address] abdomen pelvis W/O contrast: Impression Impression: 1. Large 1.6 cm obstructing stone in the right renal pelvis. Mild to moderate right hydronephrosis.Numerous additional nonobstructing right renal calculi. 2. Mild diffuse urinary bladder wall thickening. Correlate with urinalysis to exclude cystitis. 3. Bibasilar pulmonary nodules measuring up to 5 mm. Per Fleischner guidelines, if the patient is considered high risk for lung cancer, an optional follow-up CT chest can be obtained in 12 months. Ifthe patient is considered low risk, no specific follow-up is required. ECHO: 03/02/25 Summary * The left ventricle is normal in size, with normal systolic function and an estimated ejection fraction of 64 % by biplane method of disks. Left ventricular wall motion is normal. * The left ventricular diastolic function is normal. * The mitral valve is displaying restricted posterior leaflet motion with calcification. There is an echodensity 10 mm x 12 mm attached to the anterior mitral leaflet, possible differential includes vegetation, torn chordae. Need to correlate clinically and SINTIA if clinical suspicion of endocarditis. * There is mild tricuspid valve regurgitation. * There is mild mitral valve regurgitation. * The pulmonary artery systolic pressure is normal, 27 mmHg. Cath Performed: to be ordered following Tooth extraction Panorex 03/02/25 MPRESSION: Lucencies within the right mandibular presumed location of absent of the molar and premolar teeth. Recommend dental consultation. The report was drafted by Ofe Aponte MD (president finance company) 03/04/2025 8:30 AM. > Dictated by Lighting Equipment Operator SINTIA Summary * There is a 1.16 cm x 0.78 cm mobile vegetation attached to the atrial surface of the anterior mitral valve leaflet tip (around the A2/A3 scallop tip). * There is moderate to severe mitral valve regurgitation with a very eccentric posterior jet that originates at the site of the vegetation. Mitral valve regurgitant volume is 30 ml regurgitant fraction is calculated 33%. 3-D ERO area is 0.36 cm2. Vena contracta width (2D) 0.42 cm. 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 * Agitated saline contrast study at rest and with Valsalva is negative for a shunt. * Normal left ventricular systolic function. Visually estimated LV EF is 55-60%. * Right ventricular systolic function is grossly normal. Panorex 03/04/25 FINDINGS: Multiple dental restorations are identified, and numerous teeth are absent. There are scattered dental caries. No acute mandibular fracture is identified. Both temporomandibular joints are intact. Lucencies within the right mandibular presumed location of absent of the molar and premolar teeth. IMPRESSION: Lucencies within the right mandibular presumed location of absent of the molar and premolar teeth. Recommend dental consultation. The report was drafted by Ofe Aponte MD (president finance company) 03/04/2025 8:30 AM. Carotid US 03/07/25 -read pending Renal US, ordered Assessment and Plan: Examined pt while laying in bed. He is tearful today, nervous about the surgery and worried about his . She can't drive on the highway so she can't be here. Encouraged him to talk. Listened DIAGNOSIS: Patient is a 64 year old male with past medical history for HTN, CKD w/ hx of nephrolithiasis and GERD who presented from OSH for surgical evaluation of his mitral valve endocarditis. Echo w/ MV vegetation 1x1.2cm w/ mild MR - transfer to [facility]. Patient is now afebrile, WBC stable at 11, Cr. Elevated at 3 (unclear baseline). Surgeon Staffed: Cristiano -SINTIA 03/07 with moderate to severe eccentric MR, posterior leaflet with restriction, mobile vegetation on the anterior leaflet - Dentist consulted- mult teeth to be extracted today Testing pending: Cardiac Cath (03/09) Renal US ordered Carotid US completed, read pending - will need a multi disciplinary meeting in the next 24- 36 hrs to discuss the patient, teams that will need to weigh in are infectious disease , cardiology and CTS - surgery timing to be determined , we have discussed with the patient the potential need for HD after surgery LANRE Simms 03/08/2025 7:26 AM [1] Past Medical History: Diagnosis Date CKD (chronic kidney disease) COPD (chronic obstructive pulmonary disease) (HCC) GERD (gastroesophageal reflux disease) HTN (hypertension) Nephrolithiasis Obstructive uropathy [2] Past Surgical History: Procedure Laterality Date CYSTOSCOPY cystoscopy with ureteral stent placement Retinal Detachment Repair Bilateral [3] Medications Prior to Admission Medication Sig Dispense Refill amLODIPine (Norvasc) 5 MG tablet Take 1 (one) tablet by mouth once daily metoprolol succinate XL 24hr (Toprol XL) 25 MG tablet Take 1 (one) tablet by mouth once daily montelukast (Singulair) 10 MG tablet Take 1 (one) tablet by mouth at bedtime omeprazole (PriLOSEC) 40 MG capsule Take 1 (one) capsule by mouth daily before breakfast [4] No Known Allergies [5] Family History Problem Relation Name Age of Onset COPD - Chronic Obstructive Pulmonary Disease Mother Renal Disease Father Cosigned by Basilio Quinonez MD at 03/08/2025 5:33 PM CDT Associated attestation - Basilio Quinonez MD - 03/08/2025 5:33 PM CDT Events reviewed. Dental extract/LHC pending. Plan OR 03/[address] Hernandez[address] [facility] * Justyna Casiano - 03/07/2025 1:18 PM CDT Images from the original note were not included. [facility] INTERNAL MEDICINE PROGRESS NOTE Patient: Marshall Espinal Jr. Sex: male Age: [age] year old Date of : 1960 Date of Admission: 03/01/2025 Date: 03/07/2025 LOS: 6 SUBJECTIVE Interval History: NAEON. Pt remains stable and reports no new symptoms or difficulites with ambulating. SINTIA read backalarming for 1.16cm x 0.78 cm mobile vegetation on the mitral valve. CTS recommend consults to dental for tooth extraction, nephrology for recs for MV surgery in setting of CKD, cardiology for left cardiac cath prior to MV surgery, and ID for source of infection and antibiotic recs. Per medicine, all consults were placed. Nephrology consulted and said patient is safe to proceed with MV surgery following updated labs. Hospital Course: Mr. Marshall Espinal is a 64 yo M with PMHx of HTN, CKD, COPD w h/o nephrolithiasis who presented to OSH for 2 weeks of left sided flank pain. At the OSH, CT Abd/pelvis order that showed complex, cystic lesion of the inferior left spleen and diverticulosis. Pt was transferred to [facility] for transition of care on 03/01. In the ED, pt was started on empiric vancomycin and zosyn. On 03/02, TTE was ordered for concerns of IE. TTE showed mild mitral regurgitation and 10 x 12 mm echodensity of anterior mitral valve leaflet. Blood cultures collected in the ED and OSH grew gram positive organisms and enterococcus faecalis on 03/03. On 03/03 ID, CTS, and ACS were consulted. Per blood results, ID switched patient antibiotics to ampicillin and ceftriaxone. Per CTS, a SINTIA is scheduled for 03/06 for follow up and further management of care. CTS also ordered a Panorex for potential work up of dental abscess on03/03 but was found to be unremarkable. ACS was consulted for concerns of splenic abscess but recommend against splenic drainage and signed off. On 03/04, ID ordered another blood culture for further evaluation. Preliminary result for blood cultures have come back for no growth so far 03/06. Pt received his SINTIA on 03/06. Dentistry was consulted for dental abscess on 03/06. SINTIA was read, concerns for large abscess on the mitral valve, CTS following and recommends urgent MV surgery with approval from nephrology, cardiology, dental, and ID. Plan for multidisplinary rounds on 03/08, following dental surgery for approval of MV surgery. OBJECTIVE Vital Signs: Vitals: 03/06/25 2059 03/07/25 0830 03/07/25 0900 03/07/25 1303 BP: 133/89 133/89 116/77 Pulse: 97 91 96 Resp: 17 18 Temp: 98 ??F (36.7 ??C) 97.3 ??F (36.3 ??C) SpO2: 97% 95% 96% Weight: Height: Temp Min: 96.3 ??F (35.7 ??C) Max: 98.5 ??F (36.9 ??C), Pulse Min: 82 Max: 108, Resp Min: 12 Max: 23, BP Min: 108/67 Max: 138/77 Intake & Output: In: 450 [P.O.:450] Out: - Physical Exam: Physical Exam Constitutional: Appearance: Normal appearance. He is normal weight. Eyes: Pupils: Pupils are equal, round, and reactive to light. Cardiovascular: Rate and Rhythm: Normal rate and regular rhythm. Pulmonary: Effort: Pulmonary effort is normal. Breath sounds: Normal breath sounds. Abdominal: General: Abdomen is flat. Bowel sounds are normal. Palpations: Abdomen is soft. Musculoskeletal: General: Normal range of motion. Skin: General: Skin is warm. Neurological: General: No focal deficit present. Mental Status: He is alert and oriented to person, place, and time. Mental status is at baseline. Current Medications: Scheduled: Medications[1] Continuous: Medications[2] PRN: Medications[3] Significant Lab Results: Microbiology: Microbiology Results (Displays last 21 days for this encounter ONLY) Procedure Component Value - Date/Time CULTURE BLOOD [[id number]] (Normal) Collected: 03/04/25 1109 Lab Status: Preliminary result Specimen: Blood Peripheral Updated: 03/06/25 1331 Culture No growth CULTURE BLOOD [[id number]] (Normal) Collected: 03/04/25 1109 Lab Status: Preliminary result Specimen: Blood Peripheral Updated: 03/06/25 1331 Culture No growth MRSA PCR [[id number]] (Normal) Collected: 03/02/25 0847 Lab Status: Final result Specimen: Microbiology from Nasal Updated: 03/02/25 1541 MRSA DNA by PCR Not detected Narrative: Methicillin-resistant Staphylococcus aureus (MRSA) DNA is not detected (presumed not colonized withMRSA). CULTURE BLOOD [[id number]] (Abnormal) Collected: 03/02/25532 Lab Status: Final result Specimen: Blood Peripheral Updated: 03/07/25 1038 Culture Growth of Enterococcus faecalis Gram Stain Gram-positive cocci pairs and chains Narrative: Positive at 28 Hours 19 Minutes Refer to previously reported susceptibility testing, specimen number:[id number] CULTURE BLOOD [[id number]] (Abnormal) (Susceptibility) Collected: 03/02/25532 Lab Status: Final result Specimen: Blood Peripheral Updated: 03/07/25 1038 Culture Growth of Enterococcus faecalis Gram Stain Gram-positive cocci pairs and chains Narrative: Positive at 22 Hours 44 Minutes Susceptibility Enterococcus faecalis (1) Antibiotic Interpretation Microscan Method Status Ampicillin Susceptible <=2 ug/mL LAVELLE Final Gentamicin 500 Susceptible SYN-S ug/mL LAVELLE Final Vancomycin Susceptible 2 ug/mL LAVELLE Final Susceptibility Comments Streptomycin Synergy susceptible predicts synergy between ampicillin, penicillin, or vancomycin plus streptomycin when isolates are susceptible to these agents. Combination therapy with ampicillin, penicillin or vancomycin(for susceptible strains) plus an aminoglycoside is usually indicated for serious enterococcal infections such as endocarditis, UNLESS high-level resistance to both gentamicin and streptomycin is documented. Gentamicin Synergy susceptible predicts synergy between ampicillin, penicillin, or vancomycin plus gentamicin when isolates are susceptible to these agents. Combination therapy with ampicillin, penicillin, or vancomycin (for susceptible strains) plus an aminoglycoside is usually indicated for serious enterococcal infections such as endocarditis UNLESS high-level resistance to both gentamicin and streptomycin is documented. Invasive enterococcal infections require combination therapy with susceptible agents. ID consultation is strongly recommended where available. BLOOD CULTURE ID PANEL [[id number]] (Abnormal) Collected: 03/02/25532 Lab Status: Final result Specimen: Blood Peripheral Updated: 03/03/25 1033 Enterococcus faecalis Detected Van A/B Vancomycin Resistance Not detected Comment: Results indicate vancomycin-susceptible Enterococcus faecalis. Nasir/B not detected. Narrative: Blood Culture ID Panel performed by [employer] multiplex PCR. The Test panel includes: Gram Positive Bacteria: Enterococcus faecalis, Enterococcus faecium, Listeria monocytogenes, Staphylococcus (genus), Staphylococcus aureus, Staphylococcus epidermidis, Staphylococcus lugdunensis, Streptococcus (genus), Streptococcus agalactiae (Group B), Streptococcus pneumoniae, Streptococcus pyogenes (Group A). Gram Negative Bacteria: Acinetobacter baumannii complex, Bacteroides fragilis, Haemophilus influenzae, Neisseria meningitidis (encapsulated), Pseudomonas aeruginosa, Stenotrophomonas maltophilia, Enterobacterales (formerly Enterobacteriaceae family), Enterobacter cloacae complex, Escherichia coli, K lebsiella (formerly Enterobacter) aerogenes, Klebsiella oxytoca, Klebsiella pneumoniae group, Proteus (genus), Salmonella species, Serratia marcescens. YEAST: Yesi albicans, Yesi auris, Yesi glabrata, Yesi krusei, Yesi parapsilosis, Yesi tropicalis, Cryptococcus neoformans/gattii. Antimicrobial Resistance Genes: CTX-M (extended-spectrum beta-lactamase), IMP ([place]allo beta-lactamase), KPC (carbapenemase), mcr-1 (colistin resistance determinant) mecA/C (methicillin-resistance), mecA/C and MREJ (methicillin- resistance - MRSA), NDM ([place] yvbobjc-pzxj-ehwedmtre), OXA-48-like ( oxacillinase beta-lactamase),Nasir/B (vancomycin-resistance), VIM (Dora Intergrom-Encoded [place] beta-lactamase). Imaging & Studies: ECHO SINTIA 03/06 Summary * There is a 1.16 cm x 0.78 cm mobile vegetation attached to the atrial surface of the anterior mitral valve leaflet tip (around the A2/A3 scallop tip). * There is moderate to severe mitral valve regurgitation with a very eccentric posterior jet that originates at the site of the vegetation. Mitral valve regurgitant volume is 30 ml regurgitant fraction is calculated 33%. 3-D ERO area is 0.36 cm2. Vena contracta width (2D) 0.42 cm. 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 * Agitated saline contrast study at rest and with Valsalva is negative for a shunt. * Normal left ventricular systolic function. Visually estimated LV EF is 55-60%. * Right ventricular systolic function is grossly normal. ASSESSMENT & PLAN Abscess of spleen (POA: Yes) HTN (hypertension) (POA: Yes) Diverticulosis (POA: Yes) Enterococcal bacteremia (POA: Yes) Mitral valve vegetation (HCC) (POA: Yes) COPD (chronic obstructive pulmonary disease) (HCC) (POA: Yes) Endocarditis, suspected (POA: Yes) CKD (chronic kidney disease) stage 5, GFR less than 15 ml/min (HCC) (POA: Yes) #Abscess of Spleen #Diverticulosis #Bacteremia #Mitral Valve Vegetation #Endocarditis, suspected - CT Abd/Pelvis, OSH (02/28/25): New 8.1 x 5.2 x 5.1 cm relatively low- attentuation likely complex cystic lesion in the inferior spleen. This has developed since 12/05/2024 arguing against neoplasm and favring either subacute hematoma or abscess in the appropriate clinical setting. - Elevated WBC 13.2 at outside hospital, 11.4 this AM and afebrile - No pain on exam this AM, UA with no concern for infection so no reflex to culture - IR consulted for possible abscess, low suspicion of abscess based on imaging appearance. No indication for drainage at this time; if patient clinically worsens, could consider MRI w/ contrast but not currently indicated - Imaging finding likely splenic hematoma vs cyst - ACS consulted but low suspicion of abscess, given TTE results suggesting more secondary to infectious endocarditis - Per ID request and positive lab cultures for enterococcus faecalis, vancomycin and zosyn were stopped - Repeat blood cultures preliminary results showed no growth - SINTIA came back for large vegetation on mitral valve with severe mitral regurgitation. Per SINTIA, CTSrecommends multi team consult for approved recs to follow on surgery PLAN: - Continue ampicillin and ceftriaxone for now - Repeated Blood Cultures ordered, no growth on preliminary results - MRSA negative - CTS follows per SINTIA, request consults from dental (for tooth extraction), cardiology (for left cardiac cath prior to MV surgery), ID (for source of infection and appreciate antibiotic recs), nephrology (recs for MV surgery in setting of improved renal function) - Once all recs are placed, CTS will follow for MV surgery - Dental consulted, will wait for opening of OR to conduct tooth extractions - Cardiology following, appreciate recs from nephrology prior to left cardiac cath - Nephrology consulted, pt is safe to proceed with MV surgery following lab results of vit d, pth, iron panel, ferritin, and renal ultrasound - CTS would like multicenter rounds for tomorrow 03/08 #HTN - Continue home medication of Metoprolol succinate 25 mg and amlodipine 5 mg #COPD - Home meds include Trelegy, fluticasone propionate PLAN: - Incruse and symbicort while in-patient #CKD - avoid nephrotoxic agents and continue tight control of blood pressures Code: Full Code Diet: Diet Regular Electrolytes: Replete PRN PPx: SCDs only Dispo: 5 - 7 days at least The above assessment and plan will be discussed with the attending. This note is not final until attested by attending physician. Justyna Casiano MS3 [facility] 03/07/2025 2:15 PM [1] 0.9% NaCl 3 mL Intracatheter q8h amLODIPine 5 mg Oral QDAY ampicillin 2 g Intravenous q8h budesonide-formoterol 2 puff Inhalation BID And umeclidinium 1 puff Inhalation QDAY cefTRIAXone 2 g Intravenous q12h [Held by Provider] heparin 5,000 Units Subcutaneous q8h metoprolol succinate XL 24hr 25 mg Oral AT BEDTIME montelukast 10 mg Oral AT BEDTIME pantoprazole EC 40 mg Oral QDAY polyethylene glycol 3350 17 g Oral QDAY senna 8.6 mg Oral QDAY [2] [3] SALINE LOCK, INSERT AND MAINTAIN AND 0.9% NaCl AND 0.9% NaCl acetaminophen dextrose IV for hypoglycemia OR dextrose IV for hypoglycemia OR glucagon fluticasone propionate glucose (Diabetic Use) gel Cosigned by Adalberto Arroyo MD at 03/07/2025 3:04 PM CDT Associated attestation - Adalberto Arroyo MD - 03/07/2025 3:04 PM CDT This note is for educational purpose only, please see attestation associated with resident's note. Adalberto Arroyo MD 03/07/2025 3:04 PM * Kota Estrella APRN-[employer] - 03/07/2025 11:57 AM CDT CARDIAC SURGERY Progress note Patient Name: Marshall Espinal Jr. : 1960 Private Siding Stapler: NA; PCP: Provider Unknown Referring Facility: [facility] Subjective: 64 year old male with past medical history for HTN, CKD w/ hx of nephrolithiasis and GERDwho presented from OSH for surgical evaluation of his mitral valve endocarditis. Patient developed fever/chills, left sided flank pain - CT abdomen/pelvix with concern for splenic abscess, BCx + who is being evaluated for E. Faecalis - echo w/ MV vegetation 1x1.2cm w/ mild MR - transfer to [facility]. Patient is now afebrile, WBC stable at 11, Cr. Elevated at 3 (unclear baseline). Cardiology consulted for SINTIA. Patient reports night sweats and fevers on and off for months, prompting him to stop drinking. He was drinking vodka every day prior to 6 months ago.He developed a kidney stone one month JIG FITTER, he had no prior knowledge of kidney issues prior to developing the kidney stone. 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 His left sided pain began shortly after that occurrence. 03/07/25: Pt resting, not in distress. VSS. Disciplinary meeting tomorrow determine surgery time line; ID/nephrology/cardiology/CTS. SINTIA completed. Dentist following; recommendations tooth/teeth extraction prior to surgery. Patient aware of SELWYN on CKD and high risk of HD after surgery. Cardiothoracic High Risk Variables CHRONIC KIDNEY DISEASE CKD stage 4 and CKD Stage 5 Endocarditis Were these Present on Admission? Yes Patient Active Problem List Diagnosis Date Noted CKD (chronic kidney disease) stage 5, GFR less than 15 ml/min ([facility]) 03/04/2025 Priority: Not Prioritized Enterococcal bacteremia 03/03/2025 Priority: Not Prioritized Mitral valve vegetation ([facility]) 03/03/2025 Priority: Not Prioritized COPD (chronic obstructive pulmonary disease) ([facility]) 03/03/2025 Priority: Not Prioritized Endocarditis, suspected 03/03/2025 Priority: Not Prioritized Diverticulosis 03/02/2025 Priority: Not Prioritized HTN (hypertension) 03/01/2025 Priority: Not Prioritized Abscess of spleen 02/28/2025 Priority: Not Prioritized Past Medical History[1] Past Surgical History[2] Medications[3] Allergies[4] Social History Tobacco Use Smoking status: Former Current packs/day: 0.00 Types: Cigarettes Quit date: 02/1971 Years since quittin.0 Smokeless tobacco: Never Substance Use Topics Alcohol use: Not Currently Alcohol/week: 2.0 - 3.0 standard drinks of alcohol Types: 2 - 3 Alcoholic drink(s) per week Comment: last drink was roughly 6 months ago Family History[5] Objective: BP 133/89 Pulse 91 Temp 98 ??F (36.7 ??C) Resp 18 Ht 1.702 m (5' 7) Wt 81 kg (178 lb 8 oz) SpO2 95% General appearance: alert, cooperative, no distress Lungs: breath sounds normal and symmetric; no rales or wheezes Heart: regular rhythm, normal S1 and S2, grade 3/6 systolic murmur at the LSB radiating to the axillia Abdomen: soft without mass, non-tender, with normal bowel sounds Extremities: no clubbing, cyanosis or edema Data ReviewCBC: Recent Labs Component Name 03/07/2552503/06/25 0424 03/05/25 0528 WBC 11.9* 11.8* 10.9* HGB 8.6* 8.4* 8.5* HCT 27.6* 26.2* 26.4* PLTCOUNT 528* 501* 461* BMP: Recent Labs Component Name 03/07/2526 03/06/25 0424 03/05/25 0528 POTASSIUM 4.2 4.1 4.2 CO2 21* 20* 20* BUN 30* 30* 34* CREATININE 3.09* 3.16* 3.26* GLUCOSE 93 93 [address] abdomen pelvis W/O contrast: Impression Impression: 1. Large 1.6 cm obstructing stone in the right renal pelvis. Mild to moderate right hydronephrosis.Numerous additional nonobstructing right renal calculi. 2. Mild diffuse urinary bladder wall thickening. Correlate with urinalysis to exclude cystitis. 3. Bibasilar pulmonary nodules measuring up to 5 mm. Per Fleischner guidelines, if the patient is considered high risk for lung cancer, an optional follow-up CT chest can be obtained in 12 months. Ifthe patient is considered low risk, no specific follow-up is required. ECHO: 03/02/25 Summary * The left ventricle is normal in size, with normal systolic function and an estimated ejection fraction of 64 % by biplane method of disks. Left ventricular wall motion is normal. * The left ventricular diastolic function is normal. * The mitral valve is displaying restricted posterior leaflet motion with calcification. There is an echodensity 10 mm x 12 mm attached to the anterior mitral leaflet, possible differential includes vegetation, torn chordae. Need to correlate clinically and SINTIA if clinical suspicion of endocarditis. * There is mild tricuspid valve regurgitation. * There is mild mitral valve regurgitation. * The pulmonary artery systolic pressure is normal, 27 mmHg. Cath Performed: has not had Panorex 03/02/25 MPRESSION: Lucencies within the right mandibular presumed location of absent of the molar and premolar teeth. Recommend dental consultation. The report was drafted by Ofe Aponte MD (president finance company) 03/04/2025 8:30 AM. > Dictated by Lighting Equipment Operator SINTIA Summary * There is a 1.16 cm x 0.78 cm mobile vegetation attached to the atrial surface of the anterior mitral valve leaflet tip (around the A2/A3 scallop tip). * There is moderate to severe mitral valve regurgitation with a very eccentric posterior jet that originates at the site of the vegetation. Mitral valve regurgitant volume is 30 ml regurgitant fraction is calculated 33%. 3-D ERO area is 0.36 cm2. Vena contracta width (2D) 0.42 cm. 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 * Agitated saline contrast study at rest and with Valsalva is negative for a shunt. * Normal left ventricular systolic function. Visually estimated LV EF is 55-60%. * Right ventricular systolic function is grossly normal. Panorex FINDINGS: Multiple dental restorations are identified, and numerous teeth are absent. There are scattered dental caries. No acute mandibular fracture is identified. Both temporomandibular joints are intact. Lucencies within the right mandibular presumed location of absent of the molar and premolar teeth. IMPRESSION: Lucencies within the right mandibular presumed location of absent of the molar and premolar teeth. Recommend dental consultation. The report was drafted by Ofe Aponte MD (president finance company) 03/04/2025 8:30 AM. Carotid US pending Assessment and Plan: Examined pt while laying in bed, he wants to walk. Just waiting for that test on Thursday. He is without complaints. DIAGNOSIS: Patient is a 64 year old male with past medical history for HTN, CKD w/ hx of nephrolithiasis and GERD who presented from OSH for surgical evaluation of his mitral valve endocarditis. Echo w/ MV vegetation 1x1.2cm w/ mild MR - transfer to [facility]. Patient is now afebrile, WBC stable at 11, Cr. Elevated at 3 (unclear baseline). Surgeon Staffed: Cristiano SINTIA scheduled for today Panorex does not demonstrate abscesses- dentist consulted LANRE Aguayo 03/07/2025 11:57 AM SINTIA today with moderate to severe eccentric MR, posterior leaflet with restriction, mobile vegetation on the anterior leaflet To complete work up for mitral valve replacement patient will need the following studies: - cardiac cath - carotid duplex - nephrology; for obstruction /hydronephrosis (moderate on the right) - will need a multi disciplinary meeting in the next 24- 36 hrs to discuss the patient, teams that will need to weigh in are infectious disease , cardiology and CTS - surgery timing to be determined , we have discussed with the patient the potential need for HD after surgery [1] Past Medical History: Diagnosis Date CKD (chronic kidney disease) COPD (chronic obstructive pulmonary disease) (HCC) GERD (gastroesophageal reflux disease) HTN (hypertension) Nephrolithiasis Obstructive uropathy [2] Past Surgical History: Procedure Laterality Date CYSTOSCOPY cystoscopy with ureteral stent placement Retinal Detachment Repair Bilateral [3] Medications Prior to Admission Medication Sig Dispense Refill amLODIPine (Norvasc) 5 MG tablet Take 1 (one) tablet by mouth once daily metoprolol succinate XL 24hr (Toprol XL) 25 MG tablet Take 1 (one) tablet by mouth once daily montelukast (Singulair) 10 MG tablet Take 1 (one) tablet by mouth at bedtime omeprazole (PriLOSEC) 40 MG capsule Take 1 (one) capsule by mouth daily before breakfast [4] No Known Allergies [5] Family History Problem Relation Name Age of Onset COPD - Chronic Obstructive Pulmonary Disease Mother Renal Disease Father Cosigned by Basilio Quinonez MD at 03/07/2025 5:03 PM CDT Associated attestation - Basilio Quinonez MD - 03/07/2025 5:03 PM CDT Events noted. Nephrology input appreciated Will need LHC. Proceed with dental extraction. MV surgery next week after LHC/dental extraction. HSM * Amy Rosas MD - 03/07/2025 8:59 AM CDT [facility] Infectious Diseases Progress notes : Patient Name: Marshall Espinal Jr. 1960 Room: [facility] Date of Admission: 03/01/2025 Date of Service: 03/07/2025 Primary Care Physician: Provider Unknown Attending Physician: Adalberto Arroyo MD Reason for Infectious Disease Consultation Possible bacteremia vs contaminant, unknown source History of Present Illness HPI: Marshall Espinal Jr. is a 65 year old white male with PMH of HTN, CKD, COPD, hx of nephrolithiasis who presents from an OSH ([facility]) for a splenic abscess. Before presenting to OSH, patient had been experiencing L-sided pain for 2 weeks. Also having fevers intermittently (V000-264 ??F, was on and off since 02/24/25). CT Abd/Pelvis 02/28 notable for New 8.1 x 5.2 x 5.1 cm relatively low-attentuation likely complex cystic lesion in the inferior spleen. This has developed since 12/05/2024 arguing against neoplasm and favring either subacute hematoma orabscess in the appropriate clinical setting and moderate diverticulosis w/o evidence of diverticulitis. Patient reports no prior history of diverticulitis. Patient denied any issues with trauma tohis left side with respect to the splenic abscess, and he did not notice any new changes to his bowel habits or endorsed abdominal pain with respect to the diverticulitis. Per IR, splenic fluid collection with low suspicion for abscess (more likely either hematoma vs cyst) based on imaging appearance and no plans to intervene. BC revealing 1/2 cultures positive for GPC at OSH. Transferred to [facility] 03/01 for further evaluation. VSS on admission. Labs notable for negative Mononucleosis screen and MRSA PCR. Echo 03/02 demonstrating an echodensity 10 mm x 12 mm attached to the anterior mitral leaflet, possible differential includes vegetation, torn chordae. Repeat blood cultures here 07/21 positivefor E Faecalis. Patient reports stable L-sided abdominal/back discomfort (4/10 pain). Denies fever,chills, n/v, dysuria, dyschezia. Complains of headache. Interval history : No fevers, c/o back pain persistent Medical History Past Medical History[1] Surgical History Past Surgical History[2] Social History Smoking: Denies Alcohol: Quit 4 months ago. Before, was a heavy drinker Illicit drugs/IV drug use: Denies history Marital status: Children: 6 Living situation: Lives with Pets: 1 dog. 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 Family History Family History[3] I have confirmed the past medical, surgical, family and social history. Review of Systems Review of Systems Constitutional: Positive for fever. Negative for chills. Respiratory: Negative for shortness of breath. Cardiovascular: Negative for chest pain and palpitations. Gastrointestinal: Positive for abdominal pain. Negative for constipation, diarrhea, nausea and vomiting. Genitourinary: Negative for dysuria. Musculoskeletal: Negative for myalgias. Neurological: Positive for headaches. Allergies Allergies[4] Antimicrobial History Current Antibiotics Ceftriaxone 03/03 - present Ampicillin 03/03 - present Prior Antibiotics At [facility] Zosyn 03/02 - 03/03 Vancomycin 03/01 - 03/03 Prior Antibiotics at OSH Home Medications Prior to Admission medications Medication Sig Start Date End Date Taking? Authorizing Provider amLODIPine (Norvasc) 5 MG tablet Take 1 (one) tablet by mouth once daily Yes Jeanne Elizondo MD metoprolol succinate XL 24hr (Toprol XL) 25 MG tablet Take 1 (one) tablet by mouth once daily Yes Jeanne Elizondo MD montelukast (Singulair) 10 MG tablet Take 1 (one) tablet by mouth at bedtime Yes Jeanne Elizondo MD omeprazole (PriLOSEC) 40 MG capsule Take 1 (one) capsule by mouth daily before breakfast Yes Jeanne Elizondo MD Inpatient Medications Medications[5] Medications[6] Objective Vitals BP 133/89 Pulse 97 Temp 98 ??F (36.7 ??C) Resp 17 Ht 1.702 m (5' 7) Wt 81 kg (178 lb 8 oz) SpO2 97% Temp (24hrs), Av.5 ??F (36.4 ??C), Min:97 ??F (36.1 ??C), Max:98 ??F (36.7 ??C) Physical Exam Constitutional: Alert, cooperative, no distress Head, Ears, Nose: Normocephalic, atraumatic. External ears, nose normal Eyes: Conjunctivae/corneas clear. No scleral icterus. Neck: Supple, no meningeal signs Oral: Dentition poor, no thrush Cardiovascular: S1, S2 normal. No murmurs, rubs, or gallops. Respiratory: Good air entry, clear to auscultation bilaterally without rales, rhonchi, or wheezes. GI: Soft,; bowel sounds normal. No peritoneal signs. Mild TTP in the L flank region Musculoskeletal: Extremities normal, atraumatic, no cyanosis or edema Skin: No rashes Hem/Lymphatic: No palpable cervical or supraclavicular nodes Psych: Normal mood and affect. Neurologic: Awake, alert, oriented. No gross abnormality Lines: PIV Lab Review ID LABS - Mononucleosis negative 03/02 CBC: Recent Labs Component Name 03/07/2552503/06/25 04203/05/25 0528 WBC 11.9* 11.8* 10.9* RBC 3.20* 3.06* 3.11* HGB 8.6* 8.4* 8.5* HCT 27.6* 26.2* 26.4* MCV 86.3 85.6 84.9 BMP: Recent Labs Component Name 03/07/2552503/06/25 04203/05/25 0528 NA 135* 137 138 CL 106 108* 109* CO2 21* 20* 20* BUN 30* 30* 34* CREATININE 3.09* 3.16* 3.26* ALB 2.9* 2.9* 2.8* PROT 7.9 7.8 7.9 estimated creatinine clearance is 24.3 mL/min (A) (by C-G formula based on SCr of 3.09 mg/dL (H)). LFTs: Recent Labs Component Name 03/07/25 0526 03/06/25 0424 03/05/25 0528 ALKPHOS 151* 162* 170* ALT 12 11 10 AST 17 14 12 Coagulation: No results for input(s): PT, INR, PTT in the last 45542 hours. Microbiology, Imaging and other diagnostic tests MICROBIOLOGY: Blood culture: 03/02 --> positive for E Faecalis 08/21 03/04 08/21 ngtd Urine culture: Sputum Culture: Other Serologies: MRSA nares negative 03/02 HIV non reactive Hbc IgM negative Anti HBS negative Hbsag negative Anti HCV negative HISTOPATHOLOGY: None at this admission IMAGING & PROCEDURES: I have independently reviewed all pertinent images. Reports in chart. CT from OSH OSH (02/28/25): New 8.1 x 5.2 x 5.1 cm relatively low-attentuation likely complex cystic lesion in the inferior spleen. This has developed since 12/05/2024 arguing against neoplasm and favring either subacute hematoma or abscess in the appropriate clinical setting. Moderate diverticulosis without evidence of diverticulitis. Moderate bilateral fat-containing inguinal hernia. TTE 03/02 The left ventricle is normal in size, with normal systolic function and an estimated ejection fraction of 64 % by biplane method of disks. Left ventricular wall motion is normal. * The left ventricular diastolic function is normal. * The mitral valve is displaying restricted posterior leaflet motion with calcification. There is an echodensity 10 mm x 12 mm attached to the anterior mitral leaflet, possible differential includes vegetation, torn chordae. Need to correlate clinically and SINTIA if clinical suspicion of endocarditis. * There is mild tricuspid valve regurgitation. * There is mild mitral valve regurgitation. * The pulmonary artery systolic pressure is normal, 27 mmHg. SINTIA 03/06/25 Summary * There is a 1.16 cm x 0.78 cm mobile vegetation attached to the atrial surface of the anterior mitral valve leaflet tip (around the A2/A3 scallop tip). * There is moderate to severe mitral valve regurgitation with a very eccentric posterior jet that originates at the site of the vegetation. Mitral valve regurgitant volume is 30 ml regurgitant fraction is calculated 33%. 3-D ERO area is 0.36 cm2. Vena contracta width (2D) 0.42 cm. 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 * Agitated saline contrast study at rest and with Valsalva is negative for a shunt. * Normal left ventricular systolic function. Visually estimated LV EF is 55-60%. * Right ventricular systolic function is grossly normal. 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 This has developed since 12/05/2024 arguing against neoplasm and favring either subacute hematoma or abscess in the appropriate clinical setting. - Per IR, splenic fluid collection with low suspicion of abscess based on imaging appearance. Recommend conservative management - Blood cultures from OSH revealed 1/2 cultures positive stain for gram positive cocci. Repeat blood cultures collected here 1/2 positive for E Faecalis - Echo 03/02 with an an echodensity 10 mm x 12 mm attached to the anterior mitral leaflet, possible differential includes vegetation, torn chordae. SINTIA confirmed vegetation Diverticulosis - CT Abd/Pelvis, OSH (02/28/25): Moderate diverticulosis without evidence of diverticulitis. Moderate bilateral fat-containing inguinal hernia. - Pt will L-sided abdominal tenderness for the past 2 weeks. Stable and 4/10 pain. Per pt, no hx ofdiverticulosis and no change in bowel movements. - surgery reviewed no intervention recommended Poor dentition - Per pt, was supposed to see a dentist for extraction but unable to make 02/27 apt bc of this admission. Poor dentition on exam. Pending dental consult Renal Function: estimated creatinine clearance is 24.3 mL/min (A) (by C-G formula based on SCr of 3.09 mg/dL (H)). Allergies: Allergies[7] Plan/Recommendations - Continue ampicillin and Ceftriaxone. - unclear source of E faecalis bacteremia - agree with CTS workup. - appreciate dental consult -As part of routine screening, please obtain HIV 4th generation screen and HCV antibody with reflexto HCV RNA quantitative (universally recommended per CDC guidelines) Check CBC with auto diff and CMP at least weekly while on IV antibiotics Thank you for allowing us to participate in the care of this patient. We will continue to follow and monitor with you closely. Patient seen, examined, and case/plan were discussed with my attending physician, Dr. Alejandra Rooney. Case was discussed with primary team. GARY Rodriguez MD Infectious Disease Fellow [facility] [address] [place] [address] Clinic phone [phone], ID [facility] fax number : [phone] [1] Past Medical History: Diagnosis Date CKD (chronic kidney disease) COPD (chronic obstructive pulmonary disease) (HCC) GERD (gastroesophageal reflux disease) HTN (hypertension) Nephrolithiasis Obstructive uropathy [2] Past Surgical History: Procedure Laterality Date CYSTOSCOPY cystoscopy with ureteral stent placement Retinal Detachment Repair Bilateral [3] Family History Problem Relation Name Age of Onset COPD - Chronic Obstructive Pulmonary Disease Mother Renal Disease Father [4] No Known Allergies [5] 0.9% NaCl 3 mL Intracatheter q8h amLODIPine 5 mg Oral QDAY ampicillin 2 g Intravenous q8h budesonide-formoterol 2 puff Inhalation BID And umeclidinium 1 puff Inhalation QDAY cefTRIAXone 2 g Intravenous q12h [Held by Provider] heparin 5,000 Units Subcutaneous q8h metoprolol succinate XL 24hr 25 mg Oral AT BEDTIME montelukast 10 mg Oral AT BEDTIME pantoprazole EC 40 mg Oral QDAY polyethylene glycol 3350 17 g Oral QDAY senna 8.6 mg Oral QDAY [6] [7] No Known Allergies Cosigned by Alejandra Rooney MD at 03/08/2025 7:41 AM CDT Associated attestation - Alejandra Rooney MD - 03/08/2025 7:41 AM CDT I have reviewed the record and independently examined the patient. I agree with the findings and plan of care as documented by the house nurse. Marshall Espinal Jr. is a 65 year old male with PMH of HTN, CKD, COPD and nephrolithiasis found to have E. faecalis bacteremia. Assessment 1. E.faecalis bacteremia with concern for MV endocarditis. SINTIA showed large vegetation. On amp and ceftriaxone. First negative blood culture on 03/04. CTS following. 2. Severe sepsis. From (1) 3. Concern for splenic abscess. Evaluated by IR (low suspicion for abscess). 4. Poor dentition. Dental team following. Recommendations -Continue antibiotics 40 minutes spent reviewing records, examining patient, providing updates to patient and family and communicating recommendations with primary team Alejandra Rooney MD, PhD, [facility] 03/07/25 * jC Carpenter MD - 03/07/2025 7:29 AM CDT Images from the original note were not included. [facility] Internal Medicine Progress Note Name: Marshall Espinal Jr. Room/Bed: [facility] : 1960 65 year old PCP: Provider Unknown Admit Date/Time: 03/01/2025 9:44 PM LOS: 6 Subjective Interval update: NAEON. Pt remains stable and reports no new symptoms or difficulites with ambulating. SINTIA read backalarming for 1.16cm x 0.78 cm mobile vegetation on the mitral valve. CTS recommend consults to dental for tooth extraction, nephrology for recs for MV surgery in setting of CKD, cardiology for left cardiac cath prior to MV surgery, and ID for source of infection and antibiotic recs. Per medicine, all consults were placed. Nephrology consulted and said patient is safe to proceed with MV surgery following updated labs. Planned multidisplinary rounds tomorrow 03/08. Hospital course: Marshall Espinal is a 64 year old male with PMHx of HTN, CKD, COPD, hx of recurrent nephrolithiasiswho presents from an OSH ([facility]) for a splenic abscess. Pain on left side had been happening for2 weeks. Patient has a history of kidney stones and had similar symptoms in the past, so he thoughtit was another occurrence of a kidney stone. He was seen as [facility] and was told that he was going to have imaging done to rule out kidney stones, and was found to have a splenic abscess and diverticulitis. Patient reports no prior history of diverticulitis. Patient denied any issues withtrauma to his left side with respect to the splenic abscess, and he did not notice any new changes to his bowel habits. Patient reported that he was only taking Pepto bismol for his pain. Patient otherwise well on exam with no fevers. IR consutled on admission, did not feel strongly that it was an abscess and recommended against drainage. Underwent ECHO 03/02 which revealed an echodensity 10 mm x12 mm attached to the anterior mitral leaflet, possible differential includes vegetation, torn chord ae. Cardiology was consulted, and SINTIA ordered. Blood cultures from OSH revealed 1/2 cultures positive stain for gram positive cocci. Repeat blood cultures collected at [facility] revealed similar findings,1/2 positive for gram cocci in pairs and chains and later positive for enterococci on 03/03. Infectious disease consulted for recommendations regarding bacteremia with unclear source. Objective Temp: [97 ??F (36.1 ??C)-98 ??F (36.7 ??C)] 97.3 ??F (36.3 ??C) Pulse: [91-97] 96 Resp: [17-18] 18 BP: (116-133)/(77-89) 116/77 Weight change: Intake/Output Summary (Last 24 hours) at 03/07/2025 1503 Last data filed at 03/07/2025 1304 Gross per 24 hour Intake 790 ml Output -- Net 790 ml Physical Exam: Physical Exam Constitutional: General: He is not in acute distress. Appearance: Normal appearance. He is not ill-appearing. HENT: Head: Normocephalic and atraumatic. Mouth/Throat: Mouth: Mucous membranes are moist. Pharynx: No oropharyngeal exudate or posterior oropharyngeal erythema. Comments: Multiple missing teeth, dental caries Eyes: General: No scleral icterus. Extraocular Movements: Extraocular movements intact. Conjunctiva/sclera: Conjunctivae normal. Cardiovascular: Rate and Rhythm: Normal rate and regular rhythm. Pulses: Normal pulses. Heart sounds: Normal heart sounds. No murmur heard. Pulmonary: Effort: Pulmonary effort is normal. No respiratory distress. Breath sounds: Normal breath sounds. No wheezing. Abdominal: General: Abdomen is flat. Bowel sounds are normal. There is no distension. Palpations: Abdomen is soft. Tenderness: There is no abdominal tenderness. There is no guarding. Comments: Musculoskeletal: General: No swelling, tenderness or deformity. Skin: General: Skin is warm and dry. Coloration: Skin is not jaundiced. Findings: No bruising. Neurological: General: No focal deficit present. Mental Status: He is alert and oriented to person, place, and time. Mental status is at baseline. Cranial Nerves: No cranial nerve deficit. Sensory: No sensory deficit. Psychiatric: Mood and Affect: Mood normal. Behavior: Behavior normal. Scheduled Medications: Medications[1] PRN Medications: Medications[2] Continuous Infusions: Medications[3] Laboratory Data Recent Labs Component Name 03/07/2552503/06/254 03/05/25 0528 WBC 11.9* 11.8* 10.9* HGB 8.6* 8.4* 8.5* HCT 27.6* 26.2* 26.4* PLTCOUNT 528* 501* 461* MCV 86.3 85.6 84.9 No results for input(s): PT, INR, PTT in the last 13466 hours. Recent Labs Component Name 03/07/2552503/06/2542303/05/25 0528 NA 135* 137 138 POTASSIUM 4.2 4.1 4.2 CL 106 108* 109* CO2 21* 20* 20* BUN 30* 30* 34* CREATININE 3.09* 3.16* 3.26* Recent Labs Component Name 03/07/25 0503/06/25 0424 03/05/25 0528 CALCIUM 9.2 9.7 9.5 PHOS 4.2 4.1 3.7 Recent Labs Component Name 03/07/25 0503/06/25 0424 03/05/25 0528 PROT 7.9 7.8 7.9 ALB 2.9* 2.9* 2.8* ALKPHOS 151* 162* 170* AST 17 14 12 ALT 12 11 10 TBILI 0.1* 0.1* 0.2 No results for input(s): CKTOTAL, CKMBCK2, TROPONINI in the last 50911 hours. Recent Labs Component Name 03/03/25 0500 VANCORNDM 17.1 Microbiology Results (Displays last 21 days for this encounter ONLY) Procedure Component Value - Date/Time CULTURE BLOOD [[id number]] (Normal) Collected: 03/04/25 1109 Lab Status: Preliminary result Specimen: Blood Peripheral Updated: 03/06/25 1331 Culture No growth CULTURE BLOOD [[id number]] (Normal) Collected: 03/04/25 1109 Lab Status: Preliminary result Specimen: Blood Peripheral Updated: 03/06/25 1331 Culture No growth MRSA PCR [[id number]] (Normal) Collected: 03/02/25 0847 Lab Status: Final result Specimen: Microbiology from Nasal Updated: 03/02/25 1541 MRSA DNA by PCR Not detected Narrative: Methicillin-resistant Staphylococcus aureus (MRSA) DNA is not detected (presumed not colonized withMRSA). CULTURE BLOOD [[id number]] (Abnormal) Collected: 03/02/25532 Lab Status: Final result Specimen: Blood Peripheral Updated: 03/07/25 1038 Culture Growth of Enterococcus faecalis Gram Stain Gram-positive cocci pairs and chains Narrative: Positive at 28 Hours 19 Minutes Refer to previously reported susceptibility testing, specimen number:[id number] CULTURE BLOOD [[id number]] (Abnormal) (Susceptibility) Collected: 03/02/25532 Lab Status: Final result Specimen: Blood Peripheral Updated: 03/07/25 1038 Culture Growth of Enterococcus faecalis Gram Stain Gram-positive cocci pairs and chains Narrative: Positive at 22 Hours 44 Minutes Susceptibility Enterococcus faecalis (1) Antibiotic Interpretation Microscan Method Status Ampicillin Susceptible <=2 ug/mL LAVELLE Final Gentamicin 500 Susceptible SYN-S ug/mL LAVELLE Final Vancomycin Susceptible 2 ug/mL LAVELLE Final Susceptibility Comments Streptomycin Synergy susceptible predicts synergy between ampicillin, penicillin, or vancomycin plus streptomycin when isolates are susceptible to these agents. Combination therapy with ampicillin, penicillin or vancomycin(for susceptible strains) plus an aminoglycoside is usually indicated for serious enterococcal infections such as endocarditis, UNLESS high-level resistance to both gentamicin and streptomycin is documented. Gentamicin Synergy susceptible predicts synergy between ampicillin, penicillin, or vancomycin plus gentamicin when isolates are susceptible to these agents. Combination therapy with ampicillin, penicillin, or vancomycin (for susceptible strains) plus an aminoglycoside is usually indicated for serious enterococcal infections such as endocarditis UNLESS high-level resistance to both gentamicin and streptomycin is documented. Invasive enterococcal infections require combination therapy with susceptible agents. ID consultation is strongly recommended where available. BLOOD CULTURE ID PANEL [[id number]] (Abnormal) Collected: 03/02/25532 Lab Status: Final result Specimen: Blood Peripheral Updated: 03/03/25 1033 Enterococcus faecalis Detected Van A/B Vancomycin Resistance Not detected Comment: Results indicate vancomycin-susceptible Enterococcus faecalis. Nasir/B not detected. Narrative: Blood Culture ID Panel performed by [employer] multiplex PCR. The Test panel includes: Gram Positive Bacteria: Enterococcus faecalis, Enterococcus faecium, Listeria monocytogenes, Staphylococcus (genus), Staphylococcus aureus, Staphylococcus epidermidis, Staphylococcus lugdunensis, Streptococcus (genus), Streptococcus agalactiae (Group B), Streptococcus pneumoniae, Streptococcus pyogenes (Group A). Gram Negative Bacteria: Acinetobacter baumannii complex, Bacteroides fragilis, Haemophilus influenzae, Neisseria meningitidis (encapsulated), Pseudomonas aeruginosa, Stenotrophomonas maltophilia, Enterobacterales (formerly Enterobacteriaceae family), Enterobacter cloacae complex, Escherichia coli, K lebsiella (formerly Enterobacter) aerogenes, Klebsiella oxytoca, Klebsiella pneumoniae group, Proteus (genus), Salmonella species, Serratia marcescens. YEAST: Yesi albicans, Yesi auris, Yesi glabrata, Yesi krusei, Eysi parapsilosis, Yesi tropicalis, Cryptococcus neoformans/gattii. Antimicrobial Resistance Genes: CTX-M (extended-spectrum beta-lactamase), IMP ([place] beta-lactamase), KPC (carbapenemase), mcr-1 (colistin resistance determinant) mecA/C (methicillin-resistance), mecA/C and MREJ (methicillin- resistance - MRSA), NDM ([place] tqcewvf-niek-cannbksku), OXA-48-like ( oxacillinase beta-lactamase),Nasir/B (vancomycin-resistance), VIM (Sangeeta Intergrom-Encoded [place] beta-lactamase). Imaging ECHO SINTIA 03/06 Summary: * There is a 1.16 cm x 0.78 cm mobile vegetation attached to the atrial surface of the anterior mitral valve leaflet tip (around the A2/A3 scallop tip). * There is moderate to severe mitral valve regurgitation with a very eccentric posterior jet that originates at the site of the vegetation. Mitral valve regurgitant volume is 30 ml regurgitant fraction is calculated 33%. 3-D ERO area is 0.36 cm2. Vena contracta width (2D) 0.42 cm. 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 * Agitated saline contrast study at rest and with Valsalva is negative for a shunt. * Normal left ventricular systolic function. Visually estimated LV EF is 55-60%. * Right ventricular systolic function is grossly normal. XR Panorex 03/03: FINDINGS: Multiple dental restorations are identified, and numerous teeth are absent. There are scattered dental caries. No acute mandibular fracture is identified. Both temporomandibular joints are intact. Lucencies within the right mandibular presumed location of absent of the molar and premolar teeth. IMPRESSION: Lucencies within the right mandibular presumed location of absent of the molar and premolar teeth. Recommend dental consultation. Relevant labs and imaging data reviewed on Epic. Assessment and Plan Abscess of spleen (POA: Yes) HTN (hypertension) (POA: Yes) Diverticulosis (POA: Yes) Enterococcal bacteremia (POA: Yes) Mitral valve vegetation (HCC) (POA: Yes) COPD (chronic obstructive pulmonary disease) (HCC) (POA: Yes) Endocarditis, suspected (POA: Yes) CKD (chronic kidney disease) stage 5, GFR less than 15 ml/min (HCC) (POA: Yes) Assessment & Plan Abscess of spleen Diverticulosis Enterococcal bacteremia Mitral valve vegetation (HCC) Endocarditis, suspected - CT Abd/Pelvis, OSH (02/28/25): New 8.1 x 5.2 x 5.1 cm relatively low- attentuation likely complex cystic lesion in the inferior spleen. This has developed since 12/05/2024 arguing against neoplasm and favring either subacute hematoma or abscess in the appropriate clinical setting. - Elevated WBC 13.2 at outside hospital, 11.4 this AM and afebrile - IR consulted for possible abscess, low suspicion of abscess based on imaging appearance. No indication for drainage at this time; if patient clinically worsens, could consider MRI w/ contrast but not currently indicated. Imaging finding likely splenic hematoma vs cyst - UA with no concern for infection so no reflex to culture - Blood cultures from OSH revealed 1/2 cultures positive stain for gram positive cocci. Repeat blood cultures collected here revealed similar findings, 1/2 positive for gram cocci in pairs and chainsand later positive for enterococci faecalis - TTE revealed an echodensity 10 mm x 12 mm attached to the anterior mitral leaflet, possible differential includes vegetation, torn chordae. - Denies any IVDU, other drug use - Had tooth extraction 3 months ago, was scheduled for additional tooth extraction on 02/27 but missed while admitted - IR consulted for possible abscess, low suspicion of abscess based on imaging appearance. No indication for drainage at this time; if patient clinically worsens, could consider MRI w/ contrast but not currently indicated - Imaging finding likely splenic hematoma vs cyst - ACS consulted but low suspicion of abscess, given TTE results suggesting more secondary to infectious endocarditis - Per ID request and positive lab cultures for enterococcus faecalis, vancomycin and zosyn were stopped PLAN: - Continue ampicillin and ceftriaxone for now - Repeated Blood Cultures ordered, no growth on preliminary results - MRSA negative - CTS follows per SINTIA, request consults from dental (for tooth extraction), cardiology (for left cardiac cath prior to MV surgery), ID (for source of infection and appreciate antibiotic recs), nephrology (recs for MV surgery in setting of improved renal function) - Once all recs are placed, CTS will follow for MV surgery - Dental consulted, will wait for opening of OR to conduct tooth extractions - Cardiology following, appreciate recs from nephrology prior to left cardiac cath - Nephrology consulted, pt is safe to proceed with MV surgery following lab results of vit d, pth, iron panel, ferritin, and renal ultrasound - CTS would like multicenter rounds for tomorrow 03/08 HTN (hypertension) - Home Rx: Metoprolol succinate 25 mg PO QHS, amlodipine 5 mg PO QD - BP stable, 119-126 systolic this AM PLAN: - Continue metoprolol succinate 25 - amLODIPine (Norvasc) tablet 5 mg COPD (chronic obstructive pulmonary disease) ([facility]) - Home meds include Trelegy, fluticasone propionate PLAN: - Incruse and symbicort while in-patient CKD (chronic kidney disease) stage 5, GFR less than 15 ml/min ([facility]) Cr-3.44-3.62 PLAN: - avoid nephrotoxic agents and continue tight control of blood pressures Incidental findings requiring follow up: NA Diet: DIET RENAL DIET NPO Except: NO EXCEPTIONS DVT Prophylaxis: SCDs only Code Status: Full Code [place] Candidate?: No Electronically Signed By: Cj Carpenter MD 03/07/2025 3:03 PM The above assessment and plan will be discussed with attending physician. This note is not final until attested by the attending physician. [1] 0.9% NaCl 3 mL Intracatheter q8h amLODIPine 5 mg Oral QDAY ampicillin 2 g Intravenous q8h budesonide-formoterol 2 puff Inhalation BID And umeclidinium 1 puff Inhalation QDAY cefTRIAXone 2 g Intravenous q12h [Held by Provider] heparin 5,000 Units Subcutaneous q8h metoprolol succinate XL 24hr 25 mg Oral AT BEDTIME montelukast 10 mg Oral AT BEDTIME pantoprazole EC 40 mg Oral QDAY polyethylene glycol 3350 17 g Oral QDAY senna 8.6 mg Oral QDAY [2] SALINE LOCK, INSERT AND MAINTAIN AND 0.9% NaCl AND 0.9% NaCl acetaminophen dextrose IV for hypoglycemia OR dextrose IV for hypoglycemia OR glucagon fluticasone propionate glucose (Diabetic Use) gel [3] Cosigned by Adalberto Arroyo MD at 03/07/2025 3:07 PM CDT Associated attestation - Adalberto Arroyo MD - 03/07/2025 3:07 PM CDT I have seen and examined the patient with the resident and I agree with the findings and plan of care as documented by the resident. In addition: - working towards dental extraction - nephrology ok with plan for intervention from CTS standpoint Date of Service: 03/07/2025 Adalberto Arroyo MD * Basilio Quinonez MD - 2025 5:46 PM CDT Events noted. History of kidney issues Now with endocarditis of MV. + enterococcus blood culture. SINTIA: large vegetation on mitral valve. Severe MR. TTE: normal Ef Plan: Need nephrology recommendations to see if there is any value in waiting for renal recovery before proceeding with MV surgery. Need ID to clarify source. Need cardiology for left heart cath when we confirm plan is to go for surgery. Suggest mutlidisciplinary conference next 24-36 hours as patient is at higher risk of stroke given size of vegetation. [facility] * Cj Carpenter MD - 2025 2:36 PM CDT Images from the original note were not included. [facility] Internal Medicine Progress Note Name: Marshall Espinal Jr. Room/Bed: [facility]/ : 1960 65 year old PCP: Provider Unknown Admit Date/Time: 03/01/2025 9:44 PM LOS: 5 Subjective Interval update: No acute events overnight. Pain continues to improve, and pt remains stable. He continues to endorse no difficulties with ambulating. SINTIA was performed today, report pending. Dental consultation was called. Hospital course: Marshall Espinal is a 64 year old male with PMHx of HTN, CKD, COPD, hx of recurrent nephrolithiasiswho presents from an OSH ([place]) for a splenic abscess. Pain on left side had been happening for2 weeks. Patient has a history of kidney stones and had similar symptoms in the past, so he thoughtit was another occurrence of a kidney stone. He was seen as [facility] and was told that he was going to have imaging done to rule out kidney stones, and was found to have a splenic abscess and diverticulitis. Patient reports no prior history of diverticulitis. Patient denied any issues withtrauma to his left side with respect to the splenic abscess, and he did not notice any new changes to his bowel habits. Patient reported that he was only taking Pepto bismol for his pain. Patient otherwise well on exam with no fevers. IR consutled on admission, did not feel strongly that it was an abscess and recommended against drainage. Underwent ECHO 03/02 which revealed an echodensity 10 mm x12 mm attached to the anterior mitral leaflet, possible differential includes vegetation, torn chord ae. Cardiology was consulted, and SINTIA ordered. Blood cultures from OSH revealed 1/2 cultures positive stain for gram positive cocci. Repeat blood cultures collected at [facility] revealed similar findings,1/2 positive for gram cocci in pairs and chains and later positive for enterococci on 03/03. Infectious disease consulted for recommendations regarding bacteremia with unclear source. Objective Temp: [98 ??F (36.7 ??C)] 98 ??F (36.7 ??C) Pulse: [92-108] 96 Resp: [12-23] 20 BP: (115-136)/(78-96) 120/80 Weight change: Intake/Output Summary (Last 24 hours) at 2025 1436 Last data filed at 03/05/2025 1443 Gross per 24 hour Intake 120 ml Output -- Net 120 ml Physical Exam: Physical Exam Constitutional: General: He is not in acute distress. Appearance: Normal appearance. He is not ill-appearing. HENT: Head: Normocephalic and atraumatic. Mouth/Throat: Mouth: Mucous membranes are moist. Pharynx: No oropharyngeal exudate or posterior oropharyngeal erythema. Comments: Multiple missing teeth, dental caries Eyes: General: No scleral icterus. Extraocular Movements: Extraocular movements intact. Conjunctiva/sclera: Conjunctivae normal. Cardiovascular: Rate and Rhythm: Normal rate and regular rhythm. Pulses: Normal pulses. Heart sounds: Normal heart sounds. No murmur heard. Pulmonary: Effort: Pulmonary effort is normal. No respiratory distress. Breath sounds: Normal breath sounds. No wheezing. Abdominal: General: Abdomen is flat. Bowel sounds are normal. There is no distension. Palpations: Abdomen is soft. Tenderness: There is no abdominal tenderness. There is no guarding. Comments: Musculoskeletal: General: No swelling, tenderness or deformity. Skin: General: Skin is warm and dry. Coloration: Skin is not jaundiced. Findings: No bruising. Neurological: General: No focal deficit present. Mental Status: He is alert and oriented to person, place, and time. Mental status is at baseline. Cranial Nerves: No cranial nerve deficit. Sensory: No sensory deficit. Psychiatric: Mood and Affect: Mood normal. Behavior: Behavior normal. Scheduled Medications: Medications[1] PRN Medications: Medications[2] Continuous Infusions: Medications[3] Laboratory Data Recent Labs Component Name 03/06/2542303/05/2552703/04/25 0636 WBC 11.8* 10.9* 9.2 HGB 8.4* 8.5* 8.8* HCT 26.2* 26.4* 28.1* PLTCOUNT 501* 461* 443* MCV 85.6 84.9 87.0 No results for input(s): PT, INR, PTT in the last 85681 hours. Recent Labs Component Name 03/06/2542303/05/2552703/04/25 0636 NA 137 138 138 POTASSIUM 4.1 4.2 4.0 CL 108* 109* 111* CO2 20* 20* 20* BUN 30* 34* 38* CREATININE 3.16* 3.26* 3.44* Recent Labs Component Name 03/06/25 0424 03/05/25 0528 03/04/25 0636 CALCIUM 9.7 9.5 9.4 PHOS 4.1 3.7 3.9 Recent Labs Component Name 03/06/25 0424 03/05/25 0528 03/04/25 0636 PROT 7.8 7.9 7.7 ALB 2.9* 2.8* 2.8* ALKPHOS 162* 170* 185* AST 14 12 9 ALT 11 10 8 TBILI 0.1* 0.2 0.2 No results for input(s): CKTOTAL, CKMBCK2, TROPONINI in the last 54221 hours. Recent Labs Component Name 03/03/25 0500 VANCORNDM 17.1 Microbiology Results (Displays last 21 days for this encounter ONLY) Procedure Component Value - Date/Time CULTURE BLOOD [[id number]] (Normal) Collected: 03/04/25 110 Lab Status: Preliminary result Specimen: Blood Peripheral Updated: 03/06/25 1331 Culture No growth CULTURE BLOOD [[id number]] (Normal) Collected: 03/04/25 110 Lab Status: Preliminary result Specimen: Blood Peripheral Updated: 03/06/25 1331 Culture No growth MRSA PCR [[id number]] (Normal) Collected: 03/02/25 0847 Lab Status: Final result Specimen: Microbiology from Nasal Updated: 03/02/25 1541 MRSA DNA by PCR Not detected Narrative: Methicillin-resistant Staphylococcus aureus (MRSA) DNA is not detected (presumed not colonized withMRSA). CULTURE BLOOD [[id number]] (Abnormal) Collected: 03/02/25532 Lab Status: Preliminary result Specimen: Blood Peripheral Updated: 03/05/25 06 Culture Growth of Enterococcus faecalis Gram Stain Gram-positive cocci pairs and chains Narrative: Positive at 28 Hours 19 Minutes Refer to previously reported susceptibility testing, specimen number:[id number] CULTURE BLOOD [[id number]] (Abnormal) (Susceptibility) Collected: 03/02/25532 Lab Status: Preliminary result Specimen: Blood Peripheral Updated: 03/04/252228 Culture Growth of Enterococcus faecalis Gram Stain Gram-positive cocci pairs and chains Narrative: Positive at 22 Hours 44 Minutes Susceptibility Enterococcus faecalis (1) Antibiotic Interpretation Microscan Method Status Ampicillin Susceptible <=2 ug/mL LAVELLE Final Gentamicin 500 Susceptible SYN-S ug/mL LAVELLE Final Vancomycin Susceptible 2 ug/mL LAVELLE Final Susceptibility Comments Streptomycin Synergy susceptible predicts synergy between ampicillin, penicillin, or vancomycin plus streptomycin when isolates are susceptible to these agents. Combination therapy with ampicillin, penicillin or vancomycin(for susceptible strains) plus an aminoglycoside is usually indicated for serious enterococcal infections such as endocarditis, UNLESS high-level resistance to both gentamicin and streptomycin is documented. Gentamicin Synergy susceptible predicts synergy between ampicillin, penicillin, or vancomycin plus gentamicin when isolates are susceptible to these agents. Combination therapy with ampicillin, penicillin, or vancomycin (for susceptible strains) plus an aminoglycoside is usually indicated for serious enterococcal infections such as endocarditis UNLESS high-level resistance to both gentamicin and streptomycin is documented. Invasive enterococcal infections require combination therapy with susceptible agents. ID consultation is strongly recommended where available. BLOOD CULTURE ID PANEL [[id number]] (Abnormal) Collected: 03/02/25 0533 Lab Status: Final result Specimen: Blood Peripheral Updated: 03/03/25 1033 Enterococcus faecalis Detected Van A/B Vancomycin Resistance Not detected Comment: Results indicate vancomycin-susceptible Enterococcus faecalis. Nasir/B not detected. Narrative: Blood Culture ID Panel performed by [employer] multiplex PCR. The Test panel includes: Gram Positive Bacteria: Enterococcus faecalis, Enterococcus faecium, Listeria monocytogenes, Staphylococcus (genus), Staphylococcus aureus, Staphylococcus epidermidis, Staphylococcus lugdunensis, Streptococcus (genus), Streptococcus agalactiae (Group B), Streptococcus pneumoniae, Streptococcus pyogenes (Group A). Gram Negative Bacteria: Acinetobacter baumannii complex, Bacteroides fragilis, Haemophilus influenzae, Neisseria meningitidis (encapsulated), Pseudomonas aeruginosa, Stenotrophomonas maltophilia, Enterobacterales (formerly Enterobacteriaceae family), Enterobacter cloacae complex, Escherichia coli, K lebsiella (formerly Enterobacter) aerogenes, Klebsiella oxytoca, Klebsiella pneumoniae group, Proteus (genus), Salmonella species, Serratia marcescens. YEAST: Yesi albicans, Yesi auris, Yesi glabrata, Yesi krusei, Yesi parapsilosis, Yesi tropicalis, Cryptococcus neoformans/gattii. Antimicrobial Resistance Genes: CTX-M (extended-spectrum beta-lactamase), IMP ([place] beta-lactamase), KPC (carbapenemase), mcr-1 (colistin resistance determinant) mecA/C (methicillin-resistance), mecA/C and MREJ (methicillin- resistance - MRSA), NDM ([place] vosckql-ikff-vpswgilpk), OXA-48-like ( oxacillinase beta-lactamase),Nasir/B (vancomycin-resistance), VIM ([place]ora Intergrom-Encoded [place] beta-lactamase). Imaging XR Panorex 03/03: FINDINGS: Multiple dental restorations are identified, and numerous teeth are absent. There are scattered dental caries. No acute mandibular fracture is identified. Both temporomandibular joints are intact. Lucencies within the right mandibular presumed location of absent of the molar and premolar teeth. IMPRESSION: Lucencies within the right mandibular presumed location of absent of the molar and premolar teeth. Recommend dental consultation. Relevant labs and imaging data reviewed on Epic. Assessment and Plan Abscess of spleen (POA: Yes) HTN (hypertension) (POA: Yes) Diverticulosis (POA: Yes) Enterococcal bacteremia (POA: Yes) Mitral valve vegetation (HCC) (POA: Yes) COPD (chronic obstructive pulmonary disease) (HCC) (POA: Yes) Endocarditis, suspected (POA: Yes) CKD (chronic kidney disease) stage 5, GFR less than 15 ml/min (HCC) (POA: Yes) Assessment & Plan Abscess of spleen Diverticulosis Enterococcal bacteremia Mitral valve vegetation (HCC) Endocarditis, suspected - CT Abd/Pelvis, OSH (02/28/25): New 8.1 x 5.2 x 5.1 cm relatively low- attentuation likely complex cystic lesion in the inferior spleen. This has developed since 12/05/2024 arguing against neoplasm and favring either subacute hematoma or abscess in the appropriate clinical setting. - Elevated WBC 13.2 at outside hospital, 11.4 this AM and afebrile - IR consulted for possible abscess, low suspicion of abscess based on imaging appearance. No indication for drainage at this time; if patient clinically worsens, could consider MRI w/ contrast but not currently indicated. Imaging finding likely splenic hematoma vs cyst - UA with no concern for infection so no reflex to culture - Blood cultures from OSH revealed 1/2 cultures positive stain for gram positive cocci. Repeat blood cultures collected here revealed similar findings, 1/2 positive for gram cocci in pairs and chainsand later positive for enterococci faecalis - TTE revealed an echodensity 10 mm x 12 mm attached to the anterior mitral leaflet, possible differential includes vegetation, torn chordae. - Denies any IVDU, other drug use - Had tooth extraction 3 months ago, was scheduled for additional tooth extraction on 02/27 but missed while admitted - IR consulted for possible abscess, low suspicion of abscess based on imaging appearance. No indication for drainage at this time; if patient clinically worsens, could consider MRI w/ contrast but not currently indicated - Imaging finding likely splenic hematoma vs cyst - ACS consulted but low suspicion of abscess, given TTE results suggesting more secondary to infectious endocarditis - Per ID request and positive lab cultures for enterococcus faecalis, vancomycin and zosyn were stopped PLAN: - Continue ampicillin and ceftriaxone - SINTIA done, pending results - Per ID consult, repeat blood cultures - MRSA negative - CTS following and would appreciate recs HTN (hypertension) - Home Rx: Metoprolol succinate 25 mg PO QHS, amlodipine 5 mg PO QD - BP stable, 119-126 systolic this AM PLAN: - Continue metoprolol succinate 25 - amLODIPine (Norvasc) tablet 5 mg COPD (chronic obstructive pulmonary disease) ([facility]) - Home meds include Trelegy, fluticasone propionate PLAN: - Incruse and symbicort while in-patient CKD (chronic kidney disease) stage 5, GFR less than 15 ml/min ([facility]) Cr-3.44-3.62 PLAN: - avoid nephrotoxic agents and continue tight control of blood pressures Incidental findings requiring follow up: NA Diet: DIET RENAL DVT Prophylaxis: SCDs only Code Status: Full Code [place] Candidate?: No Electronically Signed By: Cj Carpenter MD 2025 2:36 PM The above assessment and plan will be discussed with attending physician. This note is not final until attested by the attending physician. [1] 0.9% NaCl 3 mL Intracatheter q8h amLODIPine 5 mg Oral QDAY ampicillin 2 g Intravenous q8h budesonide-formoterol 2 puff Inhalation BID And umeclidinium 1 puff Inhalation QDAY cefTRIAXone 2 g Intravenous q12h [Held by Provider] heparin 5,000 Units Subcutaneous q8h metoprolol succinate XL 24hr 25 mg Oral AT BEDTIME montelukast 10 mg Oral AT BEDTIME pantoprazole EC 40 mg Oral QDAY polyethylene glycol 3350 17 g Oral QDAY senna 8.6 mg Oral QDAY [2] SALINE LOCK, INSERT AND MAINTAIN AND 0.9% NaCl AND 0.9% NaCl acetaminophen dextrose IV for hypoglycemia OR dextrose IV for hypoglycemia OR glucagon fluticasone propionate glucose (Diabetic Use) gel [3] Cosigned by Pramod Torres DO at 2025 4:50 PM CDT Associated attestation - Pramod Torres DO - 2025 4:50 PM CDT I have verified the documentation of the resident including all history, exam, and medical decision-making details. I have personally performed a physical exam and have personally reviewed the data to support my medical decision-making as outlined in the resident???s note, and I arrive independently at the same conclusion. Abscess of spleen (POA: Yes) HTN (hypertension) (POA: Yes) Diverticulosis (POA: Yes) Enterococcal bacteremia (POA: Yes) Mitral valve vegetation (HCC) (POA: Yes) COPD (chronic obstructive pulmonary disease) (HCC) (POA: Yes) Endocarditis, suspected (POA: Yes) CKD (chronic kidney disease) stage 5, GFR less than 15 ml/min (HCC) (POA: Yes) Pramod Torres DO Internal Medicine 4:50 PM 2025 * Justyna Casiano - 2025 1:31 PM CDT Images from the original note were not included. [facility] INTERNAL MEDICINE PROGRESS NOTE Patient: Marshall Espinal Jr. Sex: male Age: [age] year old Date of : 1960 Date of Admission: 03/01/2025 Date: 2025 LOS: 5 SUBJECTIVE Interval History: NAEON. Pain continues to improve and pt continues to remain stable. He continues to endorse no difficulties with ambulating. He received his SINTIA today and team is currently awaiting results. All his questions and concerns were anwsered at the bedside today. Blood cultures preliminary results came back for no growth so far. Hospital Course: Mr. Marshall Espinal is a 64 yo M with PMHx of HTN, CKD, COPD w h/o nephrolithiasis who presented to OSH for 2 weeks of left sided flank pain. At the OSH, CT Abd/pelvis order that showed complex, cystic lesion of the inferior left spleen and diverticulosis. Pt was transferred to [facility] for transition of care on 03/01. In the ED, pt was started on empiric vancomycin and zosyn. On 03/02, TTE was ordered for concerns of IE. TTE showed mild mitral regurgitation and 10 x 12 mm echodensity of anterior mitral valve leaflet. Blood cultures collected in the ED and OSH grew gram positive organisms and enterococcus faecalis on 03/03. On 03/03 ID, CTS, and ACS were consulted. Per blood results, ID switched patient antibiotics to ampicillin and ceftriaxone. Per CTS, a SINTIA is scheduled for 03/06 for follow up and further management of care. CTS also ordered a Panorex for potential work up of dental abscess on03/03 but was found to be unremarkable. ACS was consulted for concerns of splenic abscess but recommend against splenic drainage and signed off. On 03/04, ID ordered another blood culture for further evaluation. Preliminary result for blood cultures have come back for no growth so far 03/06. Pt received his SINTIA on 03/06. Dentistry was consulted for dental abscess on 03/06. OBJECTIVE Vital Signs: Vitals: 03/05/25 2040 03/06/25 0834 03/06/25 0835 03/06/25 0915 BP: 132/89 Pulse: 108 104 104 Resp: 16 16 Temp: SpO2: 98% 98% 98% Weight: Height: Temp Min: 96.3 ??F (35.7 ??C) Max: 98.5 ??F (36.9 ??C), Pulse Min: 82 Max: 108, Resp Min: 12 Max: 23, BP Min: 108/67 Max: 138/77 Intake & Output: In: 1380.9 [P.O.:1080; I.V.:300.9] Out: - Physical Exam: Physical Exam Constitutional: Appearance: Normal appearance. He is normal weight. Cardiovascular: Rate and Rhythm: Normal rate and regular rhythm. Pulmonary: Effort: Pulmonary effort is normal. Breath sounds: Normal breath sounds. Abdominal: General: Abdomen is flat. Palpations: Abdomen is soft. Musculoskeletal: General: Normal range of motion. Cervical back: Normal range of motion. Skin: General: Skin is warm. Neurological: General: No focal deficit present. Mental Status: He is alert and oriented to person, place, and time. Psychiatric: Mood and Affect: Mood normal. Current Medications: Scheduled: Medications[1] Continuous: Medications[2] PRN: Medications[3] Significant Lab Results: Recent Labs Component Name 03/06/25 0424 03/05/2552703/04/2536 WBC 11.8* 10.9* 9.2 HGB 8.4* 8.5* 8.8* HCT 26.2* 26.4* 28.1* PLTCOUNT 501* 461* 443* Recent Labs Component Name 03/06/25 0424 03/05/2552703/04/2536 POTASSIUM 4.1 4.2 4.0 CO2 20* 20* 20* BUN 30* 34* 38* CREATININE 3.16* 3.26* 3.44* EGFR 21* 20* 19* GLUCOSE 93 99 95 CALCIUM 9.7 9.5 9.4 Microbiology: Microbiology Results (Displays last 21 days for this encounter ONLY) Procedure Component Value - Date/Time CULTURE BLOOD [[id number]] (Normal) Collected: 03/04/25 1109 Lab Status: Preliminary result Specimen: Blood Peripheral Updated: 03/05/25 1330 Culture No growth 24 hours CULTURE BLOOD [[id number]] (Normal) Collected: 03/04/25 1109 Lab Status: Preliminary result Specimen: Blood Peripheral Updated: 03/05/25 1330 Culture No growth 24 hours MRSA PCR [[id number]] (Normal) Collected: 03/02/25 0847 Lab Status: Final result Specimen: Microbiology from Nasal Updated: 03/02/25 1541 MRSA DNA by PCR Not detected Narrative: Methicillin-resistant Staphylococcus aureus (MRSA) DNA is not detected (presumed not colonized withMRSA). CULTURE BLOOD [[id number]] (Abnormal) Collected: 03/02/25 0533 Lab Status: Preliminary result Specimen: Blood Peripheral Updated: 03/05/25 0629 Culture Growth of Enterococcus faecalis Gram Stain Gram-positive cocci pairs and chains Narrative: Positive at 28 Hours 19 Minutes Refer to previously reported susceptibility testing, specimen number:[id number] CULTURE BLOOD [[id number]] (Abnormal) (Susceptibility) Collected: 03/02/25532 Lab Status: Preliminary result Specimen: Blood Peripheral Updated: 03/04/25 2229 Culture Growth of Enterococcus faecalis Gram Stain Gram-positive cocci pairs and chains Narrative: Positive at 22 Hours 44 Minutes Susceptibility Enterococcus faecalis (1) Antibiotic Interpretation Microscan Method Status Ampicillin Susceptible <=2 ug/mL LAVELLE Final Gentamicin 500 Susceptible SYN-S ug/mL LAVELLE Final Vancomycin Susceptible 2 ug/mL LAVELLE Final Susceptibility Comments Streptomycin Synergy susceptible predicts synergy between ampicillin, penicillin, or vancomycin plus streptomycin when isolates are susceptible to these agents. Combination therapy with ampicillin, penicillin or vancomycin(for susceptible strains) plus an aminoglycoside is usually indicated for serious enterococcal infections such as endocarditis, UNLESS high-level resistance to both gentamicin and streptomycin is documented. Gentamicin Synergy susceptible predicts synergy between ampicillin, penicillin, or vancomycin plus gentamicin when isolates are susceptible to these agents. Combination therapy with ampicillin, penicillin, or vancomycin (for susceptible strains) plus an aminoglycoside is usually indicated for serious enterococcal infections such as endocarditis UNLESS high-level resistance to both gentamicin and streptomycin is documented. Invasive enterococcal infections require combination therapy with susceptible agents. ID consultation is strongly recommended where available. BLOOD CULTURE ID PANEL [[id number]] (Abnormal) Collected: 03/02/25532 Lab Status: Final result Specimen: Blood Peripheral Updated: 03/03/25 1033 Enterococcus faecalis Detected Van A/B Vancomycin Resistance Not detected Comment: Results indicate vancomycin-susceptible Enterococcus faecalis. Nasir/B not detected. Narrative: Blood Culture ID Panel performed by [employer] multiplex PCR. The Test panel includes: Gram Positive Bacteria: Enterococcus faecalis, Enterococcus faecium, Listeria monocytogenes, Staphylococcus (genus), Staphylococcus aureus, Staphylococcus epidermidis, Staphylococcus lugdunensis, Streptococcus (genus), Streptococcus agalactiae (Group B), Streptococcus pneumoniae, Streptococcus pyogenes (Group A). Gram Negative Bacteria: Acinetobacter baumannii complex, Bacteroides fragilis, Haemophilus influenzae, Neisseria meningitidis (encapsulated), Pseudomonas aeruginosa, Stenotrophomonas maltophilia, Enterobacterales (formerly Enterobacteriaceae family), Enterobacter cloacae complex, Escherichia coli, K lebsiella (formerly Enterobacter) aerogenes, Klebsiella oxytoca, Klebsiella pneumoniae group, Proteus (genus), Salmonella species, Serratia marcescens. YEAST: Yesi albicans, Yesi auris, Yesi glabrata, Yesi krusei, Yesi parapsilosis, Yesi tropicalis, Cryptococcus neoformans/gattii. Antimicrobial Resistance Genes: CTX-M (extended-spectrum beta-lactamase), IMP (metallo beta-lactamase), KPC (carbapenemase), mcr-1 (colistin resistance determinant) mecA/C (methicillin-resistance), mecA/C and MREJ (methicillin- resistance - MRSA), NDM ([place] knebdnt-syml-xwqgojpmu), OXA-48-like ( oxacillinase beta-lactamase),Nasir/B (vancomycin-resistance), VIM (Dora Intergrom-Encoded [place] beta-lactamase). Imaging & Studies: SINTIA 03/06 Completed, currently awaiting results. ASSESSMENT & PLAN Abscess of spleen (POA: Yes) HTN (hypertension) (POA: Yes) Diverticulosis (POA: Yes) Enterococcal bacteremia (POA: Yes) Mitral valve vegetation (HCC) (POA: Yes) COPD (chronic obstructive pulmonary disease) (HCC) (POA: Yes) Endocarditis, suspected (POA: Yes) CKD (chronic kidney disease) stage 5, GFR less than 15 ml/min (HCC) (POA: Yes) #Abscess of Spleen #Diverticulosis #Bacteremia - CT Abd/Pelvis, OSH (02/28/25): New 8.1 x 5.2 x 5.1 cm relatively low- attentuation likely complex cystic lesion in the inferior spleen. This has developed since 12/05/2024 arguing against neoplasm and favring either subacute hematoma or abscess in the appropriate clinical setting. - Elevated WBC 13.2 at outside hospital, 11.4 this AM and afebrile - No pain on exam this AM, UA with no concern for infection so no reflex to culture - IR consulted for possible abscess, low suspicion of abscess based on imaging appearance. No indication for drainage at this time; if patient clinically worsens, could consider MRI w/ contrast but not currently indicated - Imaging finding likely splenic hematoma vs cyst - ACS consulted but low suspicion of abscess, given TTE results suggesting more secondary to infectious endocarditis - Per ID request and positive lab cultures for enterococcus faecalis, vancomycin and zosyn were stopped - Repeat blood cultures preliminary results showed no growth PLAN: - Continue ampicillin and ceftriaxone for now - SINTIA ordered to evaluate for infectious source on 03/06 - Repeated Blood Cultures ordered, no growth on preliminary results - MRSA negative - CTS continues to follow - Dental consulted for abnormal XR Panorex that showed scattered dental carries, will appreciate dental recs #Mitral Valve Vegetation #Endocarditis, suspected - TTE ordered on 03/01 in the ED after pt was transferred from OSH - TTE showed mild mitral regurgitation and 10 x 12 mm echodensity of anterior mitral valve leaflet. - New potential concerns for infectious endocarditis that could potentially be causing bacteriemia and splenic abscess PLAN > SINTIA scheduled for 03/06 > continue to treat infection empirically per bacteremia plan > CTS following and would appreciate recs #HTN - Continue home medication of Metoprolol succinate 25 mg and amlodipine 5 mg #COPD - Home meds include Trelegy, fluticasone propionate PLAN: - Incruse and symbicort while in-patient #CKD - avoid nephrotoxic agents and continue tight control of blood pressures Code: Full Code Diet: Diet Regular Electrolytes: Replete PRN PPx: SCDs only Dispo: 2-3 more days The above assessment and plan will be discussed with the attending. This note is not final until attested by attending physician. Justyna Casiano MS3 [facility] 2025 1:31 PM [1] 0.9% NaCl 3 mL Intracatheter q8h amLODIPine 5 mg Oral QDAY ampicillin 2 g Intravenous q8h budesonide-formoterol 2 puff Inhalation BID And umeclidinium 1 puff Inhalation QDAY cefTRIAXone 2 g Intravenous q12h [Held by Provider] heparin 5,000 Units Subcutaneous q8h metoprolol succinate XL 24hr 25 mg Oral AT BEDTIME montelukast 10 mg Oral AT BEDTIME pantoprazole EC 40 mg Oral QDAY polyethylene glycol 3350 17 g Oral QDAY senna 8.6 mg Oral QDAY [2] [3] SALINE LOCK, INSERT AND MAINTAIN AND 0.9% NaCl AND 0.9% NaCl acetaminophen dextrose IV for hypoglycemia OR dextrose IV for hypoglycemia OR glucagon fluticasone propionate glucose (Diabetic Use) gel Cosigned by Pramod Torres DO at 2025 4:39 PM CDT * Emanuel Annalise Jeanie, IRISH MOSS GATHERER-[employer] PL[employer]TER - 2025 10:30 AM CDT CARDIAC SURGERY Consult H&P Patient Name: Marshall Espinal Jr. 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 Patient developed fever/chills, left sided flank pain - CT abdomen/pelvix with concern for splenic abscess, BCx + who is being evaluated for E. Faecalis - echo w/ MV vegetation 1x1.2cm w/ mild MR - transfer to [facility]. Patient is now afebrile, WBC stable at 11, Cr. Elevated at 3 (unclear baseline). Cardiology consulted for SINTIA. Patient reports night sweats and fevers on and off for months, prompting him to stop drinking. He was drinking vodka every day prior to 6 months ago.He developed a kidney stone one month JIG FITTER, he had no prior knowledge of kidney issues prior to developing the kidney stone. 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 His left sided pain began shortly after that occurrence. Cardiothoracic High Risk Variables CHRONIC KIDNEY DISEASE CKD stage 4 and CKD Stage 5 Endocarditis Were these Present on Admission? Yes Patient Active Problem List Diagnosis Date Noted CKD (chronic kidney disease) stage 5, GFR less than 15 ml/min ([facility]) 03/04/2025 Priority: Not Prioritized Enterococcal bacteremia 03/03/2025 Priority: Not Prioritized Mitral valve vegetation ([facility]) 03/03/2025 Priority: Not Prioritized COPD (chronic obstructive pulmonary disease) ([facility]) 03/03/2025 Priority: Not Prioritized Endocarditis, suspected 03/03/2025 Priority: Not Prioritized Diverticulosis 03/02/2025 Priority: Not Prioritized HTN (hypertension) 03/01/2025 Priority: Not Prioritized Abscess of spleen 02/28/2025 Priority: Not Prioritized Past Medical History[1] Past Surgical History[2] Medications[3] Allergies[4] Social History Tobacco Use Smoking status: Former Current packs/day: 0.00 Types: Cigarettes Quit date: 02/1971 Years since quittin.0 Smokeless tobacco: Never Substance Use Topics Alcohol use: Not Currently Alcohol/week: 2.0 - 3.0 standard drinks of alcohol Types: 2 - 3 Alcoholic drink(s) per week Comment: last drink was roughly 6 months ago Family History[5] Objective: BP 132/89 Pulse 104 Temp 98 ??F (36.7 ??C) (Oral) Resp 16 Ht 1.702 m (5' 7) Wt 81 kg (178 lb 8 oz) SpO2 98% General appearance: alert, cooperative, no distress Lungs: breath sounds normal and symmetric; no rales or wheezes Heart: regular rhythm, normal S1 and S2, grade 3/6 systolic murmur at the LSB radiating to the axillia Abdomen: soft without mass, non-tender, with normal bowel sounds Extremities: no clubbing, cyanosis or edema Data ReviewCBC: Recent Labs Component Name 03/06/25 0424 03/05/25 0528 03/04/25 0636 WBC 11.8* 10.9* 9.2 HGB 8.4* 8.5* 8.8* HCT 26.2* 26.4* 28.1* PLTCOUNT 501* 461* 443* BMP: Recent Labs Component Name 03/06/25 0424 03/05/2552703/04/25 0636 POTASSIUM 4.1 4.2 4.0 CO2 20* 20* 20* BUN 30* 34* 38* CREATININE 3.16* 3.26* 3.44* GLUCOSE 93 99 [address] abdomen pelvis W/O contrast: Impression Impression: 1. Large 1.6 cm obstructing stone in the right renal pelvis. Mild to moderate right hydronephrosis.Numerous additional nonobstructing right renal calculi. 2. Mild diffuse urinary bladder wall thickening. Correlate with urinalysis to exclude cystitis. 3. Bibasilar pulmonary nodules measuring up to 5 mm. Per Fleischner guidelines, if the patient is considered high risk for lung cancer, an optional follow-up CT chest can be obtained in 12 months. Ifthe patient is considered low risk, no specific follow-up is required. ECHO: 03/02/25 Summary * The left ventricle is normal in size, with normal systolic function and an estimated ejection fraction of 64 % by biplane method of disks. Left ventricular wall motion is normal. * The left ventricular diastolic function is normal. * The mitral valve is displaying restricted posterior leaflet motion with calcification. There is an echodensity 10 mm x 12 mm attached to the anterior mitral leaflet, possible differential includes vegetation, torn chordae. Need to correlate clinically and SINTIA if clinical suspicion of endocarditis. * There is mild tricuspid valve regurgitation. * There is mild mitral valve regurgitation. * The pulmonary artery systolic pressure is normal, 27 mmHg. Cath Performed: has not had Panorex 03/02/25 MPRESSION: Lucencies within the right mandibular presumed location of absent of the molar and premolar teeth. Recommend dental consultation. The report was drafted by Ofe Aponte MD (president finance company) 03/04/2025 8:30 AM. > Dictated by Lighting Equipment Operator Assessment and Plan: Examined pt while laying in bed, he wants to walk. Just waiting for that test on Thursday. He is without complaints. DIAGNOSIS: Patient is a 64 year old male with past medical history for HTN, CKD w/ hx of nephrolithiasis and GERD who presented from OSH for surgical evaluation of his mitral valve endocarditis. Echo w/ MV vegetation 1x1.2cm w/ mild MR - transfer to [facility]. Patient is now afebrile, WBC stable at 11, Cr. Elevated at 3 (unclear baseline). Surgeon Staffed: Maniar SINTIA scheduled for today Panorex does not demonstrate abscesses- dentist consulted Kota Estrella APRN-GRE[employer] PLANTER 2025 11:41 AM SINTIA today with moderate to severe eccentric MR, posterior leaflet with restriction, mobile vegetation on the anterior leaflet To complete work up for mitral valve replacement patient will need the following studies: - cardiac cath - carotid duplex - consult nephrology for obstruction /hydronephrosis (moderate on the right) - will need a multi disciplinary meeting in the next 24- 36 hrs to discuss the patient, teams that will need to weigh in are infectious disease , cardiology and CTS - surgery timing to be determined , we have discussed with the patient the potential need for HD after surgery [1] Past Medical History: Diagnosis Date CKD (chronic kidney disease) COPD (chronic obstructive pulmonary disease) (HCC) GERD (gastroesophageal reflux disease) HTN (hypertension) Nephrolithiasis Obstructive uropathy [2] Past Surgical History: Procedure Laterality Date CYSTOSCOPY cystoscopy with ureteral stent placement Retinal Detachment Repair Bilateral [3] Medications Prior to Admission Medication Sig Dispense Refill amLODIPine (Norvasc) 5 MG tablet Take 1 (one) tablet by mouth once daily metoprolol succinate XL 24hr (Toprol XL) 25 MG tablet Take 1 (one) tablet by mouth once daily montelukast (Singulair) 10 MG tablet Take 1 (one) tablet by mouth at bedtime omeprazole (PriLOSEC) 40 MG capsule Take 1 (one) capsule by mouth daily before breakfast [4] No Known Allergies [5] Family History Problem Relation Name Age of Onset COPD - Chronic Obstructive Pulmonary Disease Mother Renal Disease Father Cosigned by Basilio Quinonez MD at 03/07/2025 12:32 PM CDT * Paris Strong RN - 2025 10:15 AM CDT Care Coordination Progress Note Expected Discharge Date: 03/08/2025 Discharge Plan: Per MDRpt to have SINTIA today and dependent on results will consult cards for possible surgery, dentistry and recs for Abx. referrals sent for potential need. Family Support (Name and Phone): Extended Emergency Contact Information Primary Emergency Contact: irma espinal Mobile Relation: Spouse Preferred language: [place] Broke Handler needed? No Secondary Emergency Contact: Katie Diggs Mobile Relation: Daughter Preferred language: [place] Broke Handler needed? No Transportation at Discharge: Family: READMISSION RISK SCORE is 13 at 11:03 AM 2025.: Name: Paris Strong RN * Anali Long - 2025 9:29 AM CDT Senior Oracle Soa Developer visited pt during rounds to introduce Pastoral Care dept. Pt says he is feeling much better, has regained much of the mobility he had lost prior to his arrival and [place]. Pt also has had visitors and family support. Patient is aware pastoral care is available as needed and assured of prayer support. 628/01 Anali Long, Board Certified Senior [employer] Soa Developer For Follow Up: [address] [place] [address] Senior Oracle Soa Developer: [id number] On-Call Senior Oracle Soa Developer: [id number] * Jay Soria RN - 2025 8:32 AM CDT Problem: Pain/Discomfort Goal: Patient exhibits reduced pain/discomfort as evidenced by pain scores Outcome: Progressing Goal: Patient uses pharmacological and non-pharmacological pain management strategies. Outcome: Progressing Goal: Patient verbalizes acceptable level of pain relief and ability to engage in desired activity. Outcome: Progressing Problem: Medication Adherence Goal: Consistently take medications as prescribed Outcome: Progressing Problem: Neurosensory - Adult Goal: Achieves stable or improved neurological status Description: INTERVENTIONS Outcome: Progressing Goal: Remains free of injury related to seizures activity Description: INTERVENTIONS: Outcome: Progressing Goal: Achieves maximal functionality and self care Description: INTERVENTIONS: Outcome: Progressing Problem: Respiratory - Adult Goal: Achieves optimal ventilation and oxygenation Description: INTERVENTIONS: Outcome: Progressing Problem: Cardiovascular - Adult Goal: Maintains optimal cardiac output and hemodynamic stability Description: INTERVENTIONS: Outcome: Progressing Goal: Absence of cardiac dysrhythmias or at baseline Description: INTERVENTIONS: Outcome: Progressing Problem: Skin/Tissue Integrity - Adult Goal: Skin integrity remains intact Description: INTERVENTIONS: Outcome: Progressing Goal: Incisions, wounds, or drain sites healing without S/S of infection Description: INFECTIONS: Outcome: Progressing Goal: Oral mucous membranes remain intact Description: INTERVENTIONS: Outcome: Progressing Problem: Neurovascular Musculoskeletal - Adult Goal: Return mobility to safest level of function Description: INTERVENTIONS: Outcome: Progressing Goal: Maintain proper alignment of affected body part Description: INTERVENTIONS: Outcome: Progressing Goal: Return ADL status to a safe level of function Description: INTERVENTIONS: Outcome: Progressing Goal: Absence or reduction of edema Description: INTERVENTIONS Outcome: Progressing Goal: Maintains or improves tissue perfusion Description: INTERVENTIONS Outcome: Progressing Problem: Gastrointestinal - Adult Goal: Minimal or absence of nausea and vomiting Description: INTERVENTIONS: Outcome: Progressing Goal: Maintains or returns to baseline bowel function Description: INTERVENTIONS: Outcome: Progressing Goal: Maintains adequate nutritional intake Description: INTERVENTIONS: Outcome: Progressing Problem: Genitourinary - Adult Goal: Maintains or returns to baseline genitourinary function Description: INTERVENTIONS: Outcome: Progressing Goal: Urinary catheter remains patent Description: INTERVENTIONS: Outcome: Progressing Problem: Infection - Adult Goal: Infections are decreased or avoided Description: INTERVENTIONS: Outcome: Progressing Problem: Metabolic/Fluid and Electrolytes - Adult Goal: Electrolytes maintained within normal limits Description: INTERVENTIONS: Outcome: Progressing Goal: Hemodynamic stability and optimal renal function maintained Description: INTERVENTIONS: Outcome: Progressing Goal: Glucose maintained within prescribed range Description: INTERVENTIONS: Outcome: Progressing Problem: Hematologic - Adult Goal: Maintains hematologic stability Description: INTERVENTIONS: Outcome: Progressing Problem: Fall Risk Goal: Fall risk and fall related injury risk are minimized (interventions related to the fall risk can be found in the flowsheet documentation) Outcome: Progressing * Amy Rosas MD - 2025 7:51 AM CDT [facility] Infectious Diseases Progress notes : Patient Name: Marshall Espinal Jr. 1960 Room: [facility] Date of Admission: 03/01/2025 Date of Service: 2025 Primary Care Physician: Provider Unknown Attending Physician: Pramod Torres DO Reason for Infectious Disease Consultation Possible bacteremia vs contaminant, unknown source History of Present Illness HPI: Marshall Espinal Jr. is a 65 year old white male with PMH of HTN, CKD, COPD, hx of nephrolithiasis who presents from an OSH ([facility]) for a splenic abscess. Before presenting to OSH, patient had been experiencing L-sided pain for 2 weeks. Also having fevers intermittently ([id number] ??F, was on and off since 02/24/25). CT Abd/Pelvis 02/28 notable for New 8.1 x 5.2 x 5.1 cm relatively low-attentuation likely complex cystic lesion in the inferior spleen. This has developed since 12/05/2024 arguing against neoplasm and favring either subacute hematoma orabscess in the appropriate clinical setting and moderate diverticulosis w/o evidence of diverticulitis. Patient reports no prior history of diverticulitis. Patient denied any issues with trauma tohis left side with respect to the splenic abscess, and he did not notice any new changes to his bowel habits or endorsed abdominal pain with respect to the diverticulitis. Per IR, splenic fluid collection with low suspicion for abscess (more likely either hematoma vs cyst) based on imaging appearance and no plans to intervene. BC revealing 1/2 cultures positive for GPC at OSH. Transferred to [facility] 03/01 for further evaluation. VSS on admission. Labs notable for negative Mononucleosis screen and MRSA PCR. Echo 03/02 demonstrating an echodensity 10 mm x 12 mm attached to the anterior mitral leaflet, possible differential includes vegetation, torn chordae. Repeat blood cultures here 1/2 positivefor E Faecalis. Patient reports stable L-sided abdominal/back discomfort (4/10 pain). Denies fever,chills, n/v, dysuria, dyschezia. Complains of headache. Interval history : No fevers, c/o back pain Cr 3.16 WBC 11.8 Medical History Past Medical History[1] Surgical History Past Surgical History[2] Social History Smoking: Denies Alcohol: Quit 4 months ago. Before, was a heavy drinker Illicit drugs/IV drug use: Denies history Marital status: Children: 6 Living situation: Lives with Pets: 1 dog. 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 Family History Family History[3] I have confirmed the past medical, surgical, family and social history. Review of Systems Review of Systems Constitutional: Positive for fever. Negative for chills. Respiratory: Negative for shortness of breath. Cardiovascular: Negative for chest pain and palpitations. Gastrointestinal: Positive for abdominal pain. Negative for constipation, diarrhea, nausea and vomiting. Genitourinary: Negative for dysuria. Musculoskeletal: Negative for myalgias. Neurological: Positive for headaches. Allergies Allergies[4] Antimicrobial History Current Antibiotics Ceftriaxone 03/03 - present Ampicillin 03/03 - present Prior Antibiotics At [facility] Zosyn 03/02 - 03/03 Vancomycin 03/01 - 03/03 Prior Antibiotics at OSH Home Medications Prior to Admission medications Medication Sig Start Date End Date Taking? Authorizing Provider amLODIPine (Norvasc) 5 MG tablet Take 1 (one) tablet by mouth once daily Yes ProviderJeanne MD metoprolol succinate XL 24hr (Toprol XL) 25 MG tablet Take 1 (one) tablet by mouth once daily Yes ProviderJeanne MD montelukast (Singulair) 10 MG tablet Take 1 (one) tablet by mouth at bedtime Yes Provider, MD Jeanne omeprazole (PriLOSEC) 40 MG capsule Take 1 (one) capsule by mouth daily before breakfast Yes Provider, MD Jeanne Inpatient Medications Medications[5] Medications[6] Objective Vitals BP 127/78 (BP Location: Right arm, Patient Position: Lying) Pulse 108 Temp 98 ??F (36.7 ??C) (Oral) Resp 16 Ht 1.702 m (5' 7) Wt 81 kg (178 lb 8 oz) SpO2 98% Temp (24hrs), Av.1 ??F (36.7 ??C), Min:97.8 ??F (36.6 ??C), Max:98.5 ??F (36.9 ??C) Physical Exam Constitutional: Alert, cooperative, no distress Head, Ears, Nose: Normocephalic, atraumatic. External ears, nose normal Eyes: Conjunctivae/corneas clear. No scleral icterus. Neck: Supple, no meningeal signs Oral: Dentition poor, no thrush Cardiovascular: S1, S2 normal. No murmurs, rubs, or gallops. Respiratory: Good air entry, clear to auscultation bilaterally without rales, rhonchi, or wheezes. GI: Soft,; bowel sounds normal. No peritoneal signs. Mild TTP in the L flank region Musculoskeletal: Extremities normal, atraumatic, no cyanosis or edema Skin: No rashes Hem/Lymphatic: No palpable cervical or supraclavicular nodes Psych: Normal mood and affect. Neurologic: Awake, alert, oriented. No gross abnormality Lines: PIV Lab Review ID LABS - Mononucleosis negative 03/02 CBC: Recent Labs Component Name 03/06/2542303/05/2552703/04/25 0636 WBC 11.8* 10.9* 9.2 RBC 3.06* 3.11* 3.23* HGB 8.4* 8.5* 8.8* HCT 26.2* 26.4* 28.1* MCV 85.6 84.9 87.0 BMP: Recent Labs Component Name 03/06/2542303/05/2552703/04/2536 NA 137 138 138 CL 108* 109* 111* CO2 20* 20* 20* BUN 30* 34* 38* CREATININE 3.16* 3.26* 3.44* ALB 2.9* 2.8* 2.8* PROT 7.8 7.9 7.7 estimated creatinine clearance is 23.8 mL/min (A) (by C-G formula based on SCr of 3.16 mg/dL (H)). LFTs: Recent Labs Component Name 03/06/254 03/05/2552703/04/2536 ALKPHOS 162* 170* 185* ALT 11 10 8 AST 14 12 9 Coagulation: No results for input(s): PT, INR, PTT in the last 32730 hours. Microbiology, Imaging and other diagnostic tests MICROBIOLOGY: Blood culture: 03/02 --> positive for E Faecalis /03/04 ngtd Urine culture: Sputum Culture: Other Serologies: MRSA nares negative 03/02 HIV non reactive Hbc IgM negative Anti HBS negative Hbsag negative Anti HCV negative HISTOPATHOLOGY: None at this admission IMAGING & PROCEDURES: I have independently reviewed all pertinent images. Reports in chart. CT from [facility] OS (02/28/25): New 8.1 x 5.2 x 5.1 cm relatively low-attentuation likely complex cystic lesion in the inferior spleen. This has developed since 12/05/2024 arguing against neoplasm and favring either subacute hematoma or abscess in the appropriate clinical setting. Moderate diverticulosis without evidence of diverticulitis. Moderate bilateral fat-containing inguinal hernia. TTE 03/02 The left ventricle is normal in size, with normal systolic function and an estimated ejection fraction of 64 % by biplane method of disks. Left ventricular wall motion is normal. * The left ventricular diastolic function is normal. * The mitral valve is displaying restricted posterior leaflet motion with calcification. There is an echodensity 10 mm x 12 mm attached to the anterior mitral leaflet, possible differential includes vegetation, torn chordae. Need to correlate clinically and SINTIA if clinical suspicion of endocarditis. * There is mild tricuspid valve regurgitation. * There is mild mitral valve regurgitation. * The pulmonary artery systolic pressure is normal, 27 mmHg. 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 This has developed since 12/05/2024 arguing against neoplasm and favring either subacute hematoma or abscess in the appropriate clinical setting. - Per IR, splenic fluid collection with low suspicion of abscess based on imaging appearance. Recommend conservative management - Blood cultures from OSH revealed 1/2 cultures positive stain for gram positive cocci. Repeat blood cultures collected here 1/2 positive for E Faecalis - Echo 03/02 with an an echodensity 10 mm x 12 mm attached to the anterior mitral leaflet, possible differential includes vegetation, torn chordae. Pending SINTIA Diverticulosis - CT Abd/Pelvis, OSH (02/28/25): Moderate diverticulosis without evidence of diverticulitis. Moderate bilateral fat-containing inguinal hernia. - Pt will L-sided abdominal tenderness for the past 2 weeks. Stable and 4/10 pain. Per pt, no hx ofdiverticulosis and no change in bowel movements. - surgery reviewed no intervention recommended Poor dentition - Per pt, was supposed to see a dentist for extraction but unable to make 02/27 apt bc of this admission. Poor dentition on exam. Pending dental consult Renal Function: estimated creatinine clearance is 23.8 mL/min (A) (by C-G formula based on SCr of 3.16 mg/dL (H)). Allergies: Allergies[7] Plan/Recommendations - Continue ampicillin and Ceftriaxone. - will follow SINTIA - Will follow dental consult - will follow CTS consult -As part of routine screening, please obtain HIV 4th generation screen and HCV antibody with reflexto HCV RNA quantitative (universally recommended per CDC guidelines) Check CBC with auto diff and CMP at least weekly while on IV antibiotics Thank you for allowing us to participate in the care of this patient. We will continue to follow and monitor with you closely. Patient seen, examined, and case/plan were discussed with my attending physician, Dr. Alejandra Rooney. Case was discussed with primary team. GARY Rodriguez MD Infectious Disease Fellow [address], [address] [place] [address] Clinic phone [phone], ID clinic fax number : [phone] [1] Past Medical History: Diagnosis Date CKD (chronic kidney disease) COPD (chronic obstructive pulmonary disease) (HCC) GERD (gastroesophageal reflux disease) HTN (hypertension) Nephrolithiasis Obstructive uropathy [2] Past Surgical History: Procedure Laterality Date CYSTOSCOPY cystoscopy with ureteral stent placement Retinal Detachment Repair Bilateral [3] Family History Problem Relation Name Age of Onset COPD - Chronic Obstructive Pulmonary Disease Mother Renal Disease Father [4] No Known Allergies [5] 0.9% NaCl 3 mL Intracatheter q8h amLODIPine 5 mg Oral QDAY ampicillin 2 g Intravenous q8h budesonide-formoterol 2 puff Inhalation BID And umeclidinium 1 puff Inhalation QDAY cefTRIAXone 2 g Intravenous q12h [Held by Provider] heparin 5,000 Units Subcutaneous q8h metoprolol succinate XL 24hr 25 mg Oral AT BEDTIME montelukast 10 mg Oral AT BEDTIME pantoprazole EC 40 mg Oral QDAY polyethylene glycol 3350 17 g Oral QDAY senna 8.6 mg Oral QDAY [6] [7] No Known Allergies Cosigned by Alejandra Rooney MD at 03/07/2025 7:32 AM CDT Associated attestation - Alejandra Rooney MD - 03/07/2025 7:32 AM CDT I have reviewed the record and independently examined the patient. I agree with the findings and plan of care as documented by the house nurse. Marshall Espinal Jr. is a 65 year old male with PMH of HTN, CKD, COPD and nephrolithiasis found to have E. faecalis bacteremia. Assessment 1. E.faecalis bacteremia with concern for MV endocarditis. On amp and ceftriaxone. First negative blood culture on 03/04. 2. Seever sepsis. From (1) 3. Concern for splenic abscess. Evaluated by IR (low suspicion for abscess). 4. Poor dentition Recommendations -Follow SINTIA 40 minutes spent reviewing records, examining patient, providing updates to patient and family and communicating recommendations with primary team Alejandra Rooney MD, PhD, [facility] 03/06/25 * Cj Carpenter MD - 03/05/2025 12:58 PM CDT Images from the original note were not included. [facility] Internal Medicine Progress Note Name: Marshall Espinal Jr. Room/Bed: [facility] : 1960 64 year old PCP: Provider Unknown Admit Date/Time: 03/01/2025 9:44 PM LOS: 4 Subjective Interval update: No acute events overnight. Pain continues to improve and pt continues to remain stable. He continues to endorse no difficulties with ambulating. He did note one headache last night but the headache has since resolved on interview this morning. All his questions and concerns were anwsered at the bedside today. Hospital course: Marshall Espinal is a 64 year old male with PMHx of HTN, CKD, COPD, hx of recurrent nephrolithiasiswho presents from an OSH ([facility]) for a splenic abscess. Pain on left side had been happening for2 weeks. Patient has a history of kidney stones and had similar symptoms in the past, so he thoughtit was another occurrence of a kidney stone. He was seen as [facility] and was told that he was going to have imaging done to rule out kidney stones, and was found to have a splenic abscess and diverticulitis. Patient reports no prior history of diverticulitis. Patient denied any issues withtrauma to his left side with respect to the splenic abscess, and he did not notice any new changes to his bowel habits. Patient reported that he was only taking Pepto bismol for his pain. Patient otherwise well on exam with no fevers. IR consutled on admission, did not feel strongly that it was an abscess and recommended against drainage. Underwent ECHO 03/02 which revealed an echodensity 10 mm x12 mm attached to the anterior mitral leaflet, possible differential includes vegetation, torn chord ae. Cardiology was consulted, and SINTIA ordered. Blood cultures from OSH revealed 1/2 cultures positive stain for gram positive cocci. Repeat blood cultures collected at [facility] revealed similar findings,1/2 positive for gram cocci in pairs and chains and later positive for enterococci on 03/03. Infectious disease consulted for recommendations regarding bacteremia with unclear source. Objective Temp: [97.7 ??F (36.5 ??C)-98.5 ??F (36.9 ??C)] 98.5 ??F (36.9 ??C) Pulse: [92-105] 105 Resp: [16-18] 18 BP: (122-138)/(77-92) 129/81 Weight change: Intake/Output Summary (Last 24 hours) at 03/05/2025 1258 Last data filed at 03/05/2025 1032 Gross per 24 hour Intake 1260.86 ml Output -- Net 1260.86 ml Physical Exam: Physical Exam Constitutional: General: He is not in acute distress. Appearance: Normal appearance. He is not ill-appearing. HENT: Head: Normocephalic and atraumatic. Mouth/Throat: Mouth: Mucous membranes are moist. Pharynx: No oropharyngeal exudate or posterior oropharyngeal erythema. Comments: Multiple missing teeth, dental caries Eyes: General: No scleral icterus. Extraocular Movements: Extraocular movements intact. Conjunctiva/sclera: Conjunctivae normal. Cardiovascular: Rate and Rhythm: Normal rate and regular rhythm. Pulses: Normal pulses. Heart sounds: Normal heart sounds. No murmur heard. Pulmonary: Effort: Pulmonary effort is normal. No respiratory distress. Breath sounds: Normal breath sounds. No wheezing. Abdominal: General: Abdomen is flat. Bowel sounds are normal. There is no distension. Palpations: Abdomen is soft. Tenderness: There is no abdominal tenderness. There is no guarding. Comments: Musculoskeletal: General: No swelling, tenderness or deformity. Skin: General: Skin is warm and dry. Coloration: Skin is not jaundiced. Findings: No bruising. Neurological: General: No focal deficit present. Mental Status: He is alert and oriented to person, place, and time. Mental status is at baseline. Cranial Nerves: No cranial nerve deficit. Sensory: No sensory deficit. Psychiatric: Mood and Affect: Mood normal. Behavior: Behavior normal. Scheduled Medications: Medications[1] PRN Medications: Medications[2] Continuous Infusions: Medications[3] Laboratory Data Recent Labs Component Name 03/05/2552703/04/2536 03/03/25 0500 WBC 10.9* 9.2 11.7* HGB 8.5* 8.8* 8.2* HCT 26.4* 28.1* 26.3* PLTCOUNT 461* 443* 412 MCV 84.9 87.0 86.2 No results for input(s): PT, INR, PTT in the last 69960 hours. Recent Labs Component Name 03/05/2552703/04/2536 03/03/25 0500 NA 138 138 138 POTASSIUM 4.2 4.0 4.0 CL 109* 111* 107 CO2 20* 20* 20* BUN 34* 38* 44* CREATININE 3.26* 3.44* 3.62* Recent Labs Component Name 03/05/2552703/04/2536 03/03/25 0500 CALCIUM 9.5 9.4 9.1 PHOS 3.7 3.9 4.6 Recent Labs Component Name 03/05/2552703/04/25 0636 03/03/25 0500 PROT 7.9 7.7 7.2 ALB 2.8* 2.8* 2.6* ALKPHOS 170* 185* 212* AST 12 9 11 ALT 10 8 <5* TBILI 0.2 0.2 0.3 No results for input(s): CKTOTAL, CKMBCK2, TROPONINI in the last 30316 hours. Recent Labs Component Name 03/03/25 0500 VANCORNDM 17.1 Microbiology Results (Displays last 21 days for this encounter ONLY) Procedure Component Value - Date/Time CULTURE BLOOD [[id number]] Collected: 03/04/251108 Lab Status: In process Specimen: Blood Peripheral Updated: 03/04/25 1125 CULTURE BLOOD [[id number]] Collected: 03/04/251108 Lab Status: In process Specimen: Blood Peripheral Updated: 03/04/25 112 MRSA PCR [[id number]] (Normal) Collected: 03/02/25 0847 Lab Status: Final result Specimen: Microbiology from Nasal Updated: 03/02/25 1541 MRSA DNA by PCR Not detected Narrative: Methicillin-resistant Staphylococcus aureus (MRSA) DNA is not detected (presumed not colonized withMRSA). CULTURE BLOOD [[id number]] (Abnormal) Collected: 03/02/25532 Lab Status: Preliminary result Specimen: Blood Peripheral Updated: 03/05/25 0629 Culture Growth of Enterococcus faecalis Gram Stain Gram-positive cocci pairs and chains Narrative: Positive at 28 Hours 19 Minutes Refer to previously reported susceptibility testing, specimen number:[id number] CULTURE BLOOD [[id number]] (Abnormal) (Susceptibility) Collected: 03/02/25532 Lab Status: Preliminary result Specimen: Blood Peripheral Updated: 03/04/25 2229 Culture Growth of Enterococcus faecalis Gram Stain Gram-positive cocci pairs and chains Narrative: Positive at 22 Hours 44 Minutes Susceptibility Enterococcus faecalis (1) Antibiotic Interpretation Microscan Method Status Ampicillin Susceptible <=2 ug/mL LAVELLE Final Gentamicin 500 Susceptible SYN-S ug/mL LAVELLE Final Vancomycin Susceptible 2 ug/mL LAVELLE Final Susceptibility Comments Streptomycin Synergy susceptible predicts synergy between ampicillin, penicillin, or vancomycin plus streptomycin when isolates are susceptible to these agents. Combination therapy with ampicillin, penicillin or vancomycin(for susceptible strains) plus an aminoglycoside is usually indicated for serious enterococcal infections such as endocarditis, UNLESS high-level resistance to both gentamicin and streptomycin is documented. Gentamicin Synergy susceptible predicts synergy between ampicillin, penicillin, or vancomycin plus gentamicin when isolates are susceptible to these agents. Combination therapy with ampicillin, penicillin, or vancomycin (for susceptible strains) plus an aminoglycoside is usually indicated for serious enterococcal infections such as endocarditis UNLESS high-level resistance to both gentamicin and streptomycin is documented. Invasive enterococcal infections require combination therapy with susceptible agents. ID consultation is strongly recommended where available. BLOOD CULTURE ID PANEL [[id number]] (Abnormal) Collected: 03/02/25532 Lab Status: Final result Specimen: Blood Peripheral Updated: 03/03/25 1033 Enterococcus faecalis Detected Van A/B Vancomycin Resistance Not detected Comment: Results indicate vancomycin-susceptible Enterococcus faecalis. Nasir/B not detected. Narrative: Blood Culture ID Panel performed by [employer] multiplex PCR. The Test panel includes: Gram Positive Bacteria: Enterococcus faecalis, Enterococcus faecium, Listeria monocytogenes, Staphylococcus (genus), Staphylococcus aureus, Staphylococcus epidermidis, Staphylococcus lugdunensis, Streptococcus (genus), Streptococcus agalactiae (Group B), Streptococcus pneumoniae, Streptococcus pyogenes (Group A). Gram Negative Bacteria: Acinetobacter baumannii complex, Bacteroides fragilis, Haemophilus influenzae, Neisseria meningitidis (encapsulated), Pseudomonas aeruginosa, Stenotrophomonas maltophilia, Enterobacterales (formerly Enterobacteriaceae family), Enterobacter cloacae complex, Escherichia coli, K lebsiella (formerly Enterobacter) aerogenes, Klebsiella oxytoca, Klebsiella pneumoniae group, Proteus (genus), Salmonella species, Serratia marcescens. YEAST: Yesi albicans, Yesi auris, Yesi glabrata, Yesi krusei, Yesi parapsilosis, Yesi tropicalis, Cryptococcus neoformans/gattii. Antimicrobial Resistance Genes: CTX-M (extended-spectrum beta-lactamase), IMP ([place]allo beta-lactamase), KPC (carbapenemase), mcr-1 (colistin resistance determinant) mecA/C (methicillin-resistance), mecA/C and MREJ (methicillin- resistance - MRSA), NDM ([place] dqyludg-nujj-eyqkrzbcg), OXA-48-like ( oxacillinase beta-lactamase),Nasir/B (vancomycin-resistance), VIM (Dora Intergrom-Encoded [place] beta-lactamase). Imaging XR Panorex 03/03: FINDINGS: Multiple dental restorations are identified, and numerous teeth are absent. There are scattered dental caries. No acute mandibular fracture is identified. Both temporomandibular joints are intact. Lucencies within the right mandibular presumed location of absent of the molar and premolar teeth. IMPRESSION: Lucencies within the right mandibular presumed location of absent of the molar and premolar teeth. Recommend dental consultation. Relevant labs and imaging data reviewed on Epic. Assessment and Plan Abscess of spleen (POA: Yes) HTN (hypertension) (POA: Yes) Diverticulosis (POA: Yes) Enterococcal bacteremia (POA: Yes) Mitral valve vegetation (HCC) (POA: Yes) COPD (chronic obstructive pulmonary disease) (HCC) (POA: Yes) Endocarditis, suspected (POA: Yes) CKD (chronic kidney disease) stage 5, GFR less than 15 ml/min ([facility]) (POA: Yes) Assessment & Plan Abscess of spleen Diverticulosis Enterococcal bacteremia Mitral valve vegetation ([facility]) Endocarditis, suspected - CT Abd/Pelvis, OSH (02/28/25): New 8.1 x 5.2 x 5.1 cm relatively low- attentuation likely complex cystic lesion in the inferior spleen. This has developed since 12/05/2024 arguing against neoplasm and favring either subacute hematoma or abscess in the appropriate clinical setting. - Elevated WBC 13.2 at outside hospital, 11.4 this AM and afebrile - IR consulted for possible abscess, low suspicion of abscess based on imaging appearance. No indication for drainage at this time; if patient clinically worsens, could consider MRI w/ contrast but not currently indicated. Imaging finding likely splenic hematoma vs cyst - UA with no concern for infection so no reflex to culture - Blood cultures from OSH revealed 1/2 cultures positive stain for gram positive cocci. Repeat blood cultures collected here revealed similar findings, 1/2 positive for gram cocci in pairs and chainsand later positive for enterococci faecalis - TTE revealed an echodensity 10 mm x 12 mm attached to the anterior mitral leaflet, possible differential includes vegetation, torn chordae. - Denies any IVDU, other drug use - Had tooth extraction 3 months ago, was scheduled for additional tooth extraction on 02/27 but missed while admitted - IR consulted for possible abscess, low suspicion of abscess based on imaging appearance. No indication for drainage at this time; if patient clinically worsens, could consider MRI w/ contrast but not currently indicated - Imaging finding likely splenic hematoma vs cyst - ACS consulted but low suspicion of abscess, given TTE results suggesting more secondary to infectious endocarditis - Per ID request and positive lab cultures for enterococcus faecalis, vancomycin and zosyn were stopped PLAN: - Switch antibiotics to ampicillin and ceftriaxone - SINTIA ordered to evaluate for infectious source on 03/06 - Per ID consult, repeat blood cultures - MRSA negative - CTS following and would appreciate recs HTN (hypertension) - Home Rx: Metoprolol succinate 25 mg PO QHS, amlodipine 5 mg PO QD - BP stable, 119-126 systolic this AM PLAN: - Continue home Rx COPD (chronic obstructive pulmonary disease) ([facility]) - Home meds include Trelegy, fluticasone propionate PLAN: - Incruse and symbicort while in-patient CKD (chronic kidney disease) stage 5, GFR less than 15 ml/min ([facility]) Cr-3.44-3.62 PLAN: - avoid nephrotoxic agents and continue tight control of blood pressures Incidental findings requiring follow up: NA Diet: DIET REGULAR DIET NPO Except: SIPS WITH MEDS DVT Prophylaxis: SCDs only Code Status: Full Code [place] Candidate?: No Electronically Signed By: Cj Carpenter MD 03/05/2025 12:58 PM The above assessment and plan will be discussed with attending physician. This note is not final until attested by the attending physician. [1] 0.9% NaCl 3 mL Intracatheter q8h amLODIPine 5 mg Oral QDAY ampicillin 2 g Intravenous q8h budesonide-formoterol 2 puff Inhalation BID And umeclidinium 1 puff Inhalation QDAY cefTRIAXone 2 g Intravenous q12h [Held by Provider] heparin 5,000 Units Subcutaneous q8h metoprolol succinate XL 24hr 25 mg Oral AT BEDTIME montelukast 10 mg Oral AT BEDTIME pantoprazole EC 40 mg Oral QDAY polyethylene glycol 3350 17 g Oral QDAY senna 8.6 mg Oral QDAY [2] SALINE LOCK, INSERT AND MAINTAIN AND 0.9% NaCl AND 0.9% NaCl acetaminophen dextrose IV for hypoglycemia OR dextrose IV for hypoglycemia OR glucagon fluticasone propionate glucose (Diabetic Use) gel [3] Cosigned by Pramod Torres DO at 03/05/2025 1:35 PM CDT Associated attestation - Pramod Torres DO - 03/05/2025 1:35 PM CDT I have verified the documentation of the resident including all history, exam, and medical decision-making details. I have personally performed a physical exam and have personally reviewed the data to support my medical decision-making as outlined in the resident???s note, and I arrive independently at the same conclusion. Abscess of spleen (POA: Yes) HTN (hypertension) (POA: Yes) Diverticulosis (POA: Yes) Enterococcal bacteremia (POA: Yes) Mitral valve vegetation (HCC) (POA: Yes) COPD (chronic obstructive pulmonary disease) (HCC) (POA: Yes) Endocarditis, suspected (POA: Yes) CKD (chronic kidney disease) stage 5, GFR less than 15 ml/min (HCC) (POA: Yes) Pramod Torres, Internal Medicine 1:35 PM 03/05/2025 * Justyna Casiano - 03/05/2025 7:53 AM CDT Images from the original note were not included. [facility] INTERNAL MEDICINE PROGRESS NOTE Patient: Marshall Espinal Jr. Sex: male Age: [age] year old Date of : 1960 Date of Admission: 03/01/2025 Date: 03/05/2025 LOS: 4 SUBJECTIVE Interval History: NAEON. Pain continues to improve and pt continues to remain stable. He continues to endorse no difficulties with ambulating. He did note one headache last night but the headache has since resolved oninterview this morning. All his questions and concerns were anwsered at the bedside today. Hospital Course: Mr. Marshall Espinal is a 64 yo M with PMHx of HTN, CKD, COPD w h/o nephrolithiasis who presented to OSH for 2 weeks of left sided flank pain. At the OSH, CT Abd/pelvis order that showed complex, cystic lesion of the inferior left spleen and diverticulosis. Pt was transferred to [facility] for transition of care on 03/01. In the ED, pt was started on empiric vancomycin and zosyn. On 03/02, TTE was ordered for concerns of IE. TTE showed mild mitral regurgitation and 10 x 12 mm echodensity of anterior mitral valve leaflet. Blood cultures collected in the ED and OSH grew gram positive organisms and enterococcus faecalis on 03/03. On 03/03 ID, CTS, and ACS were consulted. Per blood results, ID switched patient antibiotics to ampicillin and ceftriaxone. Per CTS, a SINTIA is scheduled for 03/06 for follow up and further management of care. CTS also ordered a Panorex for potential work up of dental abscess on03/03 but was found to be unremarkable. ACS was consulted for concerns of splenic abscess but recommend against splenic drainage and signed off. On 03/04, ID ordered another blood culture for further evaluation. OBJECTIVE Vital Signs: Vitals: 03/04/25 1417 03/04/25 2001 03/04/25 2020 03/05/25 0046 BP: 122/87 138/77 124/92 Pulse: 101 99 102 93 Resp: 16 16 18 Temp: 97.7 ??F (36.5 ??C) 98.5 ??F (36.9 ??C) 98.5 ??F (36.9 ??C) SpO2: 98% 99% 98% 97% Weight: Height: Temp Min: 96.3 ??F (35.7 ??C) Max: 98.5 ??F (36.9 ??C), Pulse Min: 82 Max: 102, Resp Min: 16 Max: 20, BP Min: 108/67 Max: 138/77 Intake & Output: In: 540.9 [P.O.:240; I.V.:300.9] Out: - Physical Exam: Physical Exam Constitutional: Appearance: Normal appearance. He is normal weight. Eyes: Pupils: Pupils are equal, round, and reactive to light. Cardiovascular: Rate and Rhythm: Normal rate and regular rhythm. Pulses: Normal pulses. Heart sounds: Normal heart sounds. Pulmonary: Effort: Pulmonary effort is normal. Breath sounds: Normal breath sounds. Abdominal: General: Abdomen is flat. Bowel sounds are normal. Palpations: Abdomen is soft. Musculoskeletal: General: Normal range of motion. Skin: General: Skin is warm. Neurological: General: No focal deficit present. Mental Status: He is alert. Psychiatric: Mood and Affect: Mood normal. Current Medications: Scheduled: Medications[1] Continuous: Medications[2] PRN: Medications[3] Significant Lab Results: Recent Labs Component Name 03/05/25 0528 03/04/25 0636 03/03/25 0500 WBC 10.9* 9.2 11.7* HGB 8.5* 8.8* 8.2* HCT 26.4* 28.1* 26.3* PLTCOUNT 461* 443* 412 Microbiology: Microbiology Results (Displays last 21 days for this encounter ONLY) Procedure Component Value - Date/Time CULTURE BLOOD [[id number]] Collected: 03/04/25 110 Lab Status: In process Specimen: Blood Peripheral Updated: 03/04/25 1125 CULTURE BLOOD [[id number]] Collected: 03/04/25 110 Lab Status: In process Specimen: Blood Peripheral Updated: 03/04/25 112 MRSA PCR [[id number]] (Normal) Collected: 03/02/25 0847 Lab Status: Final result Specimen: Microbiology from Nasal Updated: 03/02/25 1541 MRSA DNA by PCR Not detected Narrative: Methicillin-resistant Staphylococcus aureus (MRSA) DNA is not detected (presumed not colonized withMRSA). CULTURE BLOOD [[id number]] (Abnormal) Collected: 03/02/25 0533 Lab Status: Preliminary result Specimen: Blood Peripheral Updated: 03/05/25 0629 Culture Growth of Enterococcus faecalis Gram Stain Gram-positive cocci pairs and chains Narrative: Positive at 28 Hours 19 Minutes Refer to previously reported susceptibility testing, specimen number:[id number] CULTURE BLOOD [[id number]] (Abnormal) (Susceptibility) Collected: 03/02/25 0533 Lab Status: Preliminary result Specimen: Blood Peripheral Updated: 03/04/25 2229 Culture Growth of Enterococcus faecalis Gram Stain Gram-positive cocci pairs and chains Narrative: Positive at 22 Hours 44 Minutes Susceptibility Enterococcus faecalis (1) Antibiotic Interpretation Microscan Method Status Ampicillin Susceptible <=2 ug/mL LAVELLE Final Gentamicin 500 Susceptible SYN-S ug/mL LAVELLE Final Vancomycin Susceptible 2 ug/mL LAVELLE Final Susceptibility Comments Streptomycin Synergy susceptible predicts synergy between ampicillin, penicillin, or vancomycin plus streptomycin when isolates are susceptible to these agents. Combination therapy with ampicillin, penicillin or vancomycin(for susceptible strains) plus an aminoglycoside is usually indicated for serious enterococcal infections such as endocarditis, UNLESS high-level resistance to both gentamicin and streptomycin is documented. Gentamicin Synergy susceptible predicts synergy between ampicillin, penicillin, or vancomycin plus gentamicin when isolates are susceptible to these agents. Combination therapy with ampicillin, penicillin, or vancomycin (for susceptible strains) plus an aminoglycoside is usually indicated for serious enterococcal infections such as endocarditis UNLESS high-level resistance to both gentamicin and streptomycin is documented. Invasive enterococcal infections require combination therapy with susceptible agents. ID consultation is strongly recommended where available. BLOOD CULTURE ID PANEL [[id number]] (Abnormal) Collected: 03/02/25 0533 Lab Status: Final result Specimen: Blood Peripheral Updated: 03/03/25 1033 Enterococcus faecalis Detected Van A/B Vancomycin Resistance Not detected Comment: Results indicate vancomycin-susceptible Enterococcus faecalis. Nasir/B not detected. Narrative: Blood Culture ID Panel performed by [employer] multiplex PCR. The Test panel includes: Gram Positive Bacteria: Enterococcus faecalis, Enterococcus faecium, Listeria monocytogenes, Staphylococcus (genus), Staphylococcus aureus, Staphylococcus epidermidis, Staphylococcus lugdunensis, Streptococcus (genus), Streptococcus agalactiae (Group B), Streptococcus pneumoniae, Streptococcus pyogenes (Group A). Gram Negative Bacteria: Acinetobacter baumannii complex, Bacteroides fragilis, Haemophilus influenzae, Neisseria meningitidis (encapsulated), Pseudomonas aeruginosa, Stenotrophomonas maltophilia, Enterobacterales (formerly Enterobacteriaceae family), Enterobacter cloacae complex, Escherichia coli, K lebsiella (formerly Enterobacter) aerogenes, Klebsiella oxytoca, Klebsiella pneumoniae group, Proteus (genus), Salmonella species, Serratia marcescens. YEAST: Yesi albicans, Yesi auris, Yesi glabrata, Yesi krusei, Yesi parapsilosis, Yesi tropicalis, Cryptococcus neoformans/gattii. Antimicrobial Resistance Genes: CTX-M (extended-spectrum beta-lactamase), IMP ([place] beta-lactamase), KPC (carbapenemase), mcr-1 (colistin resistance determinant) mecA/C (methicillin-resistance), mecA/C and MREJ (methicillin- resistance - MRSA), NDM ([place] plemidy-rikd-zpwnqruko), OXA-48-like ( oxacillinase beta-lactamase),Nasir/B (vancomycin-resistance), VIM (Sangeeta Intergrom-Encoded [place] beta-lactamase). ASSESSMENT & PLAN Abscess of spleen (POA: Yes) HTN (hypertension) (POA: Yes) Diverticulosis (POA: Yes) Enterococcal bacteremia (POA: Yes) Mitral valve vegetation (HCC) (POA: Yes) COPD (chronic obstructive pulmonary disease) (HCC) (POA: Yes) Endocarditis, suspected (POA: Yes) CKD (chronic kidney disease) stage 5, GFR less than 15 ml/min (HCC) (POA: Yes) #Abscess of Spleen #Diverticulosis #Bacteremia - CT Abd/Pelvis, OSH (02/28/25): New 8.1 x 5.2 x 5.1 cm relatively low- attentuation likely complex cystic lesion in the inferior spleen. This has developed since 12/05/2024 arguing against neoplasm and favring either subacute hematoma or abscess in the appropriate clinical setting. - Elevated WBC 13.2 at outside hospital, 11.4 this AM and afebrile - No pain on exam this AM, UA with no concern for infection so no reflex to culture - IR consulted for possible abscess, low suspicion of abscess based on imaging appearance. No indication for drainage at this time; if patient clinically worsens, could consider MRI w/ contrast but not currently indicated - Imaging finding likely splenic hematoma vs cyst - ACS consulted but low suspicion of abscess, given TTE results suggesting more secondary to infectious endocarditis - Per ID request and positive lab cultures for enterococcus faecalis, vancomycin and zosyn were stopped PLAN: - Continue ampicillin and ceftriaxone - SINTIA ordered to evaluate for infectious source on 03/06 - Repeated Blood Cultures ordered - MRSA negative #Mitral Valve Vegetation #Endocarditis, suspected - TTE ordered on 03/01 in the ED after pt was transferred from OSH - TTE showed mild mitral regurgitation and 10 x 12 mm echodensity of anterior mitral valve leaflet. - New potential concerns for infectious endocarditis that could potentially be causing bacteriemia and splenic abscess PLAN > SINTIA scheduled for 03/06 > continue to treat infection empirically per bacteremia plan > CTS following and would appreciate recs #HTN - Continue home medication of Metoprolol succinate 25 mg and amlodipine 5 mg #COPD - Home meds include Trelegy, fluticasone propionate PLAN: - Incruse and symbicort while in-patient #CKD - avoid nephrotoxic agents and continue tight control of blood pressures Code: Full Code Diet: Diet Regular Electrolytes: Replete PRN PPx: SCDs only Dispo: 2-3 more days The above assessment and plan will be discussed with the attending. This note is not final until attested by attending physician. Justyna Casiano MS3 [facility] 03/05/2025 7:53 AM [1] 0.9% NaCl 3 mL Intracatheter q8h amLODIPine 5 mg Oral QDAY ampicillin 2 g Intravenous q8h budesonide-formoterol 2 puff Inhalation BID And umeclidinium 1 puff Inhalation QDAY cefTRIAXone 2 g Intravenous q12h heparin 5,000 Units Subcutaneous q8h metoprolol succinate XL 24hr 25 mg Oral AT BEDTIME montelukast 10 mg Oral AT BEDTIME pantoprazole EC 40 mg Oral QDAY polyethylene glycol 3350 17 g Oral QDAY senna 8.6 mg Oral QDAY [2] [3] SALINE LOCK, INSERT AND MAINTAIN AND 0.9% NaCl AND 0.9% NaCl acetaminophen dextrose IV for hypoglycemia OR dextrose IV for hypoglycemia OR glucagon fluticasone propionate glucose (Diabetic Use) gel Cosigned by Pramod Torres DO at 03/05/2025 1:35 PM CDT * Boubacar Munson RN - 03/04/2025 11:56 PM CDT Problem: Pain/Discomfort Goal: Patient exhibits reduced pain/discomfort as evidenced by pain scores Outcome: Progressing Goal: Patient uses pharmacological and non-pharmacological pain management strategies. Outcome: Progressing Goal: Patient verbalizes acceptable level of pain relief and ability to engage in desired activity. Outcome: Progressing Problem: Medication Adherence Goal: Consistently take medications as prescribed Outcome: Progressing Problem: Neurosensory - Adult Goal: Achieves stable or improved neurological status Description: INTERVENTIONS Outcome: Progressing Goal: Remains free of injury related to seizures activity Description: INTERVENTIONS: Outcome: Progressing Goal: Achieves maximal functionality and self care Description: INTERVENTIONS: Outcome: Progressing Problem: Cardiovascular - Adult Goal: Maintains optimal cardiac output and hemodynamic stability Description: INTERVENTIONS: Outcome: Progressing Goal: Absence of cardiac dysrhythmias or at baseline Description: INTERVENTIONS: Outcome: Progressing Problem: Skin/Tissue Integrity - Adult Goal: Skin integrity remains intact Description: INTERVENTIONS: Outcome: Progressing Goal: Incisions, wounds, or drain sites healing without S/S of infection Description: INFECTIONS: Outcome: Progressing Goal: Oral mucous membranes remain intact Description: INTERVENTIONS: Outcome: Progressing Problem: Neurovascular Musculoskeletal - Adult Goal: Return mobility to safest level of function Description: INTERVENTIONS: Outcome: Progressing Goal: Maintain proper alignment of affected body part Description: INTERVENTIONS: Outcome: Progressing Goal: Return ADL status to a safe level of function Description: INTERVENTIONS: Outcome: Progressing Goal: Absence or reduction of edema Description: INTERVENTIONS Outcome: Progressing Goal: Maintains or improves tissue perfusion Description: INTERVENTIONS Outcome: Progressing Problem: Gastrointestinal - Adult Goal: Minimal or absence of nausea and vomiting Description: INTERVENTIONS: Outcome: Progressing Goal: Maintains or returns to baseline bowel function Description: INTERVENTIONS: Outcome: Progressing Goal: Maintains adequate nutritional intake Description: INTERVENTIONS: Outcome: Progressing Problem: Genitourinary - Adult Goal: Maintains or returns to baseline genitourinary function Description: INTERVENTIONS: Outcome: Progressing Goal: Urinary catheter remains patent Description: INTERVENTIONS: Outcome: Progressing Problem: Infection - Adult Goal: Infections are decreased or avoided Description: INTERVENTIONS: Outcome: Progressing Goals: Patient will have minimal complaints of pain. Summary: Patient stated that he is currently having no complaints of pain. Will continue with prescribed pain interventions as well as alternative comfort measures as needed. Care remains ongoing. * Ofelia Mckee APRN-[employer] - 03/04/2025 1:27 PM CDT CARDIAC SURGERY Consult H&P Patient Name: Marshall Espinal Jr. : 1960 Private Siding Stapler: NA; PCP: Provider Unknown Referring Facility: [facility] Subjective: 64 year old male with past medical history for HTN, CKD w/ hx of nephrolithiasis and GERDwho presented from OSH for surgical evaluation of his mitral valve endocarditis. Patient developed fever/chills, left sided flank pain - CT abdomen/pelvix with concern for splenic abscess, BCx + who is being evaluated for E. Faecalis - echo w/ MV vegetation 1x1.2cm w/ mild MR - transfer to [facility]. Patient is now afebrile, WBC stable at 11, Cr. Elevated at 3 (unclear baseline). Cardiology consulted for SINTIA. Cardiothoracic High Risk Variables CHRONIC KIDNEY DISEASE CKD stage 4 and CKD Stage 5 Endocarditis Were these Present on Admission? Yes Patient Active Problem List Diagnosis Date Noted Bacteremia 03/03/2025 Priority: Not Prioritized Mitral valve vegetation (HCC) 03/03/2025 Priority: Not Prioritized COPD (chronic obstructive pulmonary disease) (HCC) 03/03/2025 Priority: Not Prioritized Endocarditis, suspected 03/03/2025 Priority: Not Prioritized Diverticulosis 03/02/2025 Priority: Not Prioritized HTN (hypertension) 03/01/2025 Priority: Not Prioritized Abscess of spleen 02/28/2025 Priority: Not Prioritized Past Medical History[1] Past Surgical History[2] Medications[3] Allergies[4] Social History Tobacco Use Smoking status: Former Current packs/day: 0.00 Types: Cigarettes Quit date: 02/1971 Years since quittin.0 Smokeless tobacco: Never Substance Use Topics Alcohol use: Not Currently Alcohol/week: 2.0 - 3.0 standard drinks of alcohol Types: 2 - 3 Alcoholic drink(s) per week Comment: last drink was roughly 6 months ago Family History[5] Objective: BP 122/86 (BP Location: Right arm, Patient Position: Lying) Pulse 93 Temp 97.5 ??F (36.4 ??C) (Oral) Resp 16 Ht 1.702 m (5' 7) Wt 81 kg (178 lb 8 oz) SpO2 98% General appearance: alert, cooperative, no distress Lungs: breath sounds normal and symmetric; no rales or wheezes Heart: regular rhythm, normal S1 and S2, without murmurs, gallops or rubs Abdomen: soft without mass, non-tender, with normal bowel sounds Extremities: no clubbing, cyanosis or edema Data ReviewCBC: Recent Labs Component Name 03/04/25 0636 03/03/25 0500 03/02/25 0534 WBC 9.2 11.7* 11.4* HGB 8.8* 8.2* 8.4* HCT 28.1* 26.3* 26.6* PLTCOUNT 443* 412 410 BMP: Recent Labs Component Name 03/04/25 0636 03/03/25 0500 03/02/25 0534 POTASSIUM 4.0 4.0 4.2 CO2 20* 20* 20* BUN 38* 44* 50* CREATININE 3.44* 3.62* 3.45* GLUCOSE 95 103* 85 CALCIUM 9.4 9.1 9.0 ECHO: 03/02/25 Summary * The left ventricle is normal in size, with normal systolic function and an estimated ejection fraction of 64 % by biplane method of disks. Left ventricular wall motion is normal. * The left ventricular diastolic function is normal. * The mitral valve is displaying restricted posterior leaflet motion with calcification. There is an echodensity 10 mm x 12 mm attached to the anterior mitral leaflet, possible differential includes vegetation, torn chordae. Need to correlate clinically and SINTIA if clinical suspicion of endocarditis. * There is mild tricuspid valve regurgitation. * There is mild mitral valve regurgitation. * The pulmonary artery systolic pressure is normal, 27 mmHg. Cath Performed: has not had Panorex 03/02/25 MPRESSION: Lucencies within the right mandibular presumed location of absent of the molar and premolar teeth. Recommend dental consultation. The report was drafted by Ofe Aponte MD (president finance company) 03/04/2025 8:30 AM. > Dictated by Lighting Equipment Operator Assessment and Plan: Examined pt while laying in bed, he wants to walk. Just waiting for that test on Thursday. He is without complaints. DIAGNOSIS: Patient is a 64 year old male with past medical history for HTN, CKD w/ hx of nephrolithiasis and GERD who presented from OSH for surgical evaluation of his mitral valve endocarditis. Echo w/ MV vegetation 1x1.2cm w/ mild MR - transfer to [facility]. Patient is now afebrile, WBC stable at 11, Cr. Elevated at 3 (unclear baseline). Surgeon Staffed: Maniar SINTIA pending, Tuesday 03/06 Panorex does not demonstrate abscesses- will consult dentist 03/06 Ofelia Mckee APRN-[employer] 03/04/2025 1:28 PM [1] Past Medical History: Diagnosis Date CKD (chronic kidney disease) COPD (chronic obstructive pulmonary disease) (HCC) GERD (gastroesophageal reflux disease) HTN (hypertension) Nephrolithiasis Obstructive uropathy [2] Past Surgical History: Procedure Laterality Date CYSTOSCOPY cystoscopy with ureteral stent placement Retinal Detachment Repair Bilateral [3] Medications Prior to Admission Medication Sig Dispense Refill amLODIPine (Norvasc) 5 MG tablet Take 1 (one) tablet by mouth once daily metoprolol succinate XL 24hr (Toprol XL) 25 MG tablet Take 1 (one) tablet by mouth once daily montelukast (Singulair) 10 MG tablet Take 1 (one) tablet by mouth at bedtime omeprazole (PriLOSEC) 40 MG capsule Take 1 (one) capsule by mouth daily before breakfast [4] No Known Allergies [5] Family History Problem Relation Name Age of Onset COPD - Chronic Obstructive Pulmonary Disease Mother Renal Disease Father Cosigned by Basilio Quinonez MD at 03/07/2025 12:32 PM CDT * Justyna Casiano - 03/04/2025 8:01 AM CDT Images from the original note were not included. [facility] INTERNAL MEDICINE PROGRESS NOTE Patient: Marshall Espinal Jr. Sex: male Age: [age] year old Date of : 1960 Date of Admission: 03/01/2025 Date: 03/04/2025 LOS: 3 SUBJECTIVE Interval History: NAEON. Pain has significantly improved at a 2/10. Physical exam remains unremarkable. Pt continues to be progressing. He states that he is able to ambulate and bend without any concerns. Hospital Course: Mr. Marshall Espinal is a 64 yo M with PMHx of HTN, CKD, COPD w h/o nephrolithiasis who presented to OSH for 2 weeks of left sided flank pain. At the OSH, CT Abd/pelvis order that showed complex, cystic lesion of the inferior left spleen and diverticulosis. Pt was transferred to [facility] for transition of care on 03/01. In the ED, pt was started on empiric vancomycin and zosyn. On 03/02, TTE was ordered for concerns of IE. TTE showed mild mitral regurgitation and 10 x 12 mm echodensity of anterior mitral valve leaflet. Blood cultures collected in the ED and OSH grew gram positive organisms and enterococcus faecalis on 03/03. On 03/03 ID, CTS, and ACS were consulted. Per blood results, ID switched patient antibiotics to ampicillin and ceftriaxone. Per CTS, a SINTIA is scheduled for 03/06 for follow up and further management of care. CTS also ordered a Panorex for potential work up of dental abscess on03/03 but was found to be unremarkable. ACS was consulted for concerns of splenic abscess but recommend against splenic drainage and signed off. On 03/04, ID ordered another blood culture for further evaluation. OBJECTIVE Vital Signs: Vitals: 03/03/25 0859 03/03/25 2048 03/03/25 2230 03/04/25 0556 BP: 122/76 127/83 Pulse: 89 97 86 Resp: 18 16 Temp: 97.7 ??F (36.5 ??C) SpO2: 98% 98% 92% Weight: Height: Temp Min: 96.3 ??F (35.7 ??C) Max: 98.4 ??F (36.9 ??C), Pulse Min: 82 Max: 97, Resp Min: 16 Max: 20, BP Min: 108/67 Max: 129/75 Intake & Output: In: 297 [P.O.:177; I.V.:120] Out: - Physical Exam: Physical Exam Constitutional: Appearance: Normal appearance. He is normal weight. HENT: Mouth/Throat: Mouth: Mucous membranes are moist. Eyes: Pupils: Pupils are equal, round, and reactive to light. Cardiovascular: Rate and Rhythm: Normal rate and regular rhythm. Pulses: Normal pulses. Heart sounds: Normal heart sounds. Pulmonary: Effort: Pulmonary effort is normal. Breath sounds: Normal breath sounds. Abdominal: General: Abdomen is flat. Bowel sounds are normal. Palpations: Abdomen is soft. Musculoskeletal: General: Normal range of motion. Cervical back: Normal range of motion. Skin: General: Skin is warm. Neurological: General: No focal deficit present. Mental Status: He is alert and oriented to person, place, and time. Psychiatric: Mood and Affect: Mood normal. Current Medications: Scheduled: Medications[1] Continuous: Medications[2] PRN: Medications[3] Lab Results: Recent Labs Component Name 03/04/25 0636 03/03/25 0500 03/02/25 0534 WBC 9.2 11.7* 11.4* HGB 8.8* 8.2* 8.4* HCT 28.1* 26.3* 26.6* PLTCOUNT 443* 412 410 Recent Labs Component Name 03/04/25 0636 POTASSIUM 4.0 CO2 20* BUN 38* CREATININE 3.44* CALCIUM 9.4 ALT 8 AST 9 GLUCOSE 95 Microbiology: Microbiology Results (Displays last 21 days for this encounter ONLY) Procedure Component Value - Date/Time CULTURE BLOOD [[id number]] Collected: 03/04/25 1109 Lab Status: In process Specimen: Blood Peripheral Updated: 03/04/25 1125 CULTURE BLOOD [[id number]] Collected: 03/04/25 1109 Lab Status: In process Specimen: Blood Peripheral Updated: 03/04/25 1125 MRSA PCR [[id number]] (Normal) Collected: 03/02/2547 Lab Status: Final result Specimen: Microbiology from Nasal Updated: 03/02/25 1541 MRSA DNA by PCR Not detected Narrative: Methicillin-resistant Staphylococcus aureus (MRSA) DNA is not detected (presumed not colonized withMRSA). CULTURE BLOOD [[id number]] (Abnormal) Collected: 03/02/25532 Lab Status: Preliminary result Specimen: Blood Peripheral Updated: 03/04/25 0947 Culture Growth of Enterococcus faecalis Gram Stain Gram-positive cocci pairs and chains Narrative: Positive at 28 Hours 19 Minutes Refer to previously reported susceptibility testing, specimen number:[id number] CULTURE BLOOD [[id number]] (Abnormal) Collected: 03/02/25532 Lab Status: Preliminary result Specimen: Blood Peripheral Updated: 03/04/25 0938 Culture Growth of Enterococcus faecalis Gram Stain Gram-positive cocci pairs and chains Narrative: Positive at 22 Hours 44 Minutes BLOOD CULTURE ID PANEL [[id number]] (Abnormal) Collected: 03/02/25532 Lab Status: Final result Specimen: Blood Peripheral Updated: 03/03/25 1033 Enterococcus faecalis Detected Van A/B Vancomycin Resistance Not detected Comment: Results indicate vancomycin-susceptible Enterococcus faecalis. Nasir/B not detected. Narrative: Blood Culture ID Panel performed by [employer] multiplex PCR. The Test panel includes: Gram Positive Bacteria: Enterococcus faecalis, Enterococcus faecium, Listeria monocytogenes, Staphylococcus (genus), Staphylococcus aureus, Staphylococcus epidermidis, Staphylococcus lugdunensis, Streptococcus (genus), Streptococcus agalactiae (Group B), Streptococcus pneumoniae, Streptococcus pyogenes (Group A). Gram Negative Bacteria: Acinetobacter baumannii complex, Bacteroides fragilis, Haemophilus influenzae, Neisseria meningitidis (encapsulated), Pseudomonas aeruginosa, Stenotrophomonas maltophilia, Enterobacterales (formerly Enterobacteriaceae family), Enterobacter cloacae complex, Escherichia coli, K lebsiella (formerly Enterobacter) aerogenes, Klebsiella oxytoca, Klebsiella pneumoniae group, Proteus (genus), Salmonella species, Serratia marcescens. YEAST: Yesi albicans, Yesi auris, Yesi glabrata, Yesi krusei, Yesi parapsilosis, Yesi tropicalis, Cryptococcus neoformans/gattii. Antimicrobial Resistance Genes: CTX-M (extended-spectrum beta-lactamase), IMP (metallo beta-lactamase), KPC (carbapenemase), mcr-1 (colistin resistance determinant) mecA/C (methicillin-resistance), mecA/C and MREJ (methicillin- resistance - MRSA), NDM ([place] uidecto-snbm-allfvburq), OXA-48-like ( oxacillinase beta-lactamase),Nasir/B (vancomycin-resistance), VIM (Dora Intergrom-Encoded Metallo beta-lactamase). Imaging & Studies: XR Panorex 03/03: FINDINGS: Multiple dental restorations are identified, and numerous teeth are absent. There are scattered dental caries. No acute mandibular fracture is identified. Both temporomandibular joints are intact. Lucencies within the right mandibular presumed location of absent of the molar and premolar teeth. IMPRESSION: Lucencies within the right mandibular presumed location of absent of the molar and premolar teeth. Recommend dental consultation. ASSESSMENT & PLAN Abscess of spleen (POA: Clinically Undetermined) HTN (hypertension) (POA: Yes) Diverticulosis (POA: Yes) Bacteremia (POA: Yes) Mitral valve vegetation (HCC) (POA: Yes) COPD (chronic obstructive pulmonary disease) (HCC) (POA: Yes) Endocarditis, suspected (POA: Yes) #Abscess of Spleen #Diverticulosis #Bacteremia Present on arrival - CT Abd/Pelvis, OSH (02/28/25): New 8.1 x 5.2 x 5.1 cm relatively low- attentuation likely complex cystic lesion in the inferior spleen. This has developed since 12/05/2024 arguing against neoplasm and favring either subacute hematoma or abscess in the appropriate clinical setting. - Elevated WBC 13.2 at outside hospital, 11.4 this AM and afebrile - No pain on exam this AM, UA with no concern for infection so no reflex to culture - IR consulted for possible abscess, low suspicion of abscess based on imaging appearance. No indication for drainage at this time; if patient clinically worsens, could consider MRI w/ contrast but not currently indicated - Imaging finding likely splenic hematoma vs cyst - ACS consulted but low suspicion of abscess, given TTE results suggesting more secondary to infectious endocarditis - Per ID request and positive lab cultures for enterococcus faecalis, vancomycin and zosyn were stopped PLAN: - Switch antibiotics to ampicillin and ceftriaxone - SINTIA ordered to evaluate for infectious source on 03/06 - Per ID consult, repeat blood cultures - MRSA negative #Mitral Valve Vegetation #Endocarditis, suspected - TTE ordered on 03/01 in the ED after pt was transferred from OSH - TTE showed mild mitral regurgitation and 10 x 12 mm echodensity of anterior mitral valve leaflet. - New potential concerns for infectious endocarditis that could potentially be causing bacteriemia and splenic abscess PLAN > CTS consulted, recommends ordering a SINTIA scheduled for 03/06 > continue to treat infection empirically per bacteremia plan > CTS following and would appreciate recs #HTN - Continue home medication of Metoprolol succinate 25 mg and amlodipine 5 mg #COPD - Home meds include Trelegy, fluticasone propionate PLAN: - Incruse and symbicort while in-patient #CKD - avoid nephrotoxic agents and continue tight control of blood pressures Code: Full Code Diet: Diet Regular Electrolytes: Replete PRN PPx: SCDs only Dispo: 2-3 more days The above assessment and plan will be discussed with the attending. This note is not final until attested by attending physician. Justyna Casiano MS3 Internal Medicine [facility] 03/04/2025 8:02 AM [1] 0.9% NaCl 3 mL Intracatheter q8h amLODIPine 5 mg Oral QDAY ampicillin 2 g Intravenous q8h budesonide-formoterol 2 puff Inhalation BID And umeclidinium 1 puff Inhalation QDAY cefTRIAXone 2 g Intravenous q12h heparin 5,000 Units Subcutaneous q8h metoprolol succinate XL 24hr 25 mg Oral AT BEDTIME montelukast 10 mg Oral AT BEDTIME pantoprazole EC 40 mg Oral QDAY polyethylene glycol 3350 17 g Oral QDAY senna 8.6 mg Oral QDAY [2] [3] SALINE LOCK, INSERT AND MAINTAIN AND 0.9% NaCl AND 0.9% NaCl dextrose IV for hypoglycemia OR dextrose IV for hypoglycemia OR glucagon fluticasone propionate glucose (Diabetic Use) gel Cosigned by Pramod Torres DO at 03/04/2025 9:06 PM CDT * Cj Carpenter MD - 03/04/2025 7:08 AM CDT Images from the original note were not included. [facility] Internal Medicine Progress Note Name: Marshall Espinal Jr. Room/Bed: [facility] : 1960 64 year old PCP: Provider Unknown Admit Date/Time: 03/01/2025 9:44 PM LOS: 3 Subjective Interval update: No acute events overnight. Pain has significantly improved at a 2/10. Physical exam remains unremarkable. Pt continues to be progressing. He states that he is able to ambulate and bend without any concerns. Hospital course: Marshall Espinal is a 64 year old male with PMHx of HTN, CKD, COPD, hx of recurrent nephrolithiasiswho presents from an OSH ([place]) for a splenic abscess. Pain on left side had been happening for2 weeks. Patient has a history of kidney stones and had similar symptoms in the past, so he thoughtit was another occurrence of a kidney stone. He was seen as [facility] and was told that he was going to have imaging done to rule out kidney stones, and was found to have a splenic abscess and diverticulitis. Patient reports no prior history of diverticulitis. Patient denied any issues withtrauma to his left side with respect to the splenic abscess, and he did not notice any new changes to his bowel habits. Patient reported that he was only taking Pepto bismol for his pain. Patient otherwise well on exam with no fevers. IR consutled on admission, did not feel strongly that it was an abscess and recommended against drainage. Underwent ECHO 03/02 which revealed an echodensity 10 mm x12 mm attached to the anterior mitral leaflet, possible differential includes vegetation, torn chord ae. Cardiology was consulted, and SINTIA ordered. Blood cultures from OSH revealed 1/2 cultures positive stain for gram positive cocci. Repeat blood cultures collected at [facility] revealed similar findings,1/2 positive for gram cocci in pairs and chains and later positive for enterococci on 03/03. Infectious disease consulted for recommendations regarding bacteremia with unclear source. Objective Temp: [97.5 ??F (36.4 ??C)-97.7 ??F (36.5 ??C)] 97.5 ??F (36.4 ??C) Pulse: [86-97] 93 Resp: [16] 16 BP: (122-127)/(76-86) 122/86 Weight change: Intake/Output Summary (Last 24 hours) at 03/04/2025 1355 Last data filed at 03/03/2025 1659 Gross per 24 hour Intake 100 ml Output -- Net 100 ml Physical Exam: Physical Exam Constitutional: General: He is not in acute distress. Appearance: Normal appearance. He is not ill-appearing. HENT: Head: Normocephalic and atraumatic. Mouth/Throat: Mouth: Mucous membranes are moist. Pharynx: No oropharyngeal exudate or posterior oropharyngeal erythema. Comments: Multiple missing teeth, dental caries Eyes: General: No scleral icterus. Extraocular Movements: Extraocular movements intact. Conjunctiva/sclera: Conjunctivae normal. Cardiovascular: Rate and Rhythm: Normal rate and regular rhythm. Pulses: Normal pulses. Heart sounds: Normal heart sounds. No murmur heard. Pulmonary: Effort: Pulmonary effort is normal. No respiratory distress. Breath sounds: Normal breath sounds. No wheezing. Abdominal: General: Abdomen is flat. Bowel sounds are normal. There is no distension. Palpations: Abdomen is soft. Tenderness: There is abdominal tenderness. There is no guarding. Comments: Musculoskeletal: General: No swelling, tenderness or deformity. Skin: General: Skin is warm and dry. Coloration: Skin is not jaundiced. Findings: No bruising. Neurological: General: No focal deficit present. Mental Status: He is alert and oriented to person, place, and time. Mental status is at baseline. Cranial Nerves: No cranial nerve deficit. Sensory: No sensory deficit. Psychiatric: Mood and Affect: Mood normal. Behavior: Behavior normal. Scheduled Medications: Medications[1] PRN Medications: Medications[2] Continuous Infusions: Medications[3] Laboratory Data Recent Labs Component Name 03/04/25 0636 03/03/25 0500 03/02/25 0534 WBC 9.2 11.7* 11.4* HGB 8.8* 8.2* 8.4* HCT 28.1* 26.3* 26.6* PLTCOUNT 443* 412 410 MCV 87.0 86.2 86.9 No results for input(s): PT, INR, PTT in the last 33163 hours. Recent Labs Component Name 03/04/2536 03/03/25 0500 03/02/25 0534 NA 138 138 137 POTASSIUM 4.0 4.0 4.2 CL 111* 107 109* CO2 20* 20* 20* BUN 38* 44* 50* CREATININE 3.44* 3.62* 3.45* Recent Labs Component Name 03/04/2536 03/03/25 0500 03/02/25 0534 CALCIUM 9.4 9.1 9.0 PHOS 3.9 4.6 4.4 Recent Labs Component Name 03/04/2536 03/03/25 0500 03/02/25 0534 PROT 7.7 7.2 7.6 ALB 2.8* 2.6* 2.6* ALKPHOS 185* 212* 218* AST 9 11 14 ALT 8 <5* 13 TBILI 0.2 0.3 0.5 No results for input(s): CKTOTAL, CKMBCK2, TROPONINI in the last 74813 hours. Recent Labs Component Name 03/03/25 0500 VANCORNDM 17.1 Microbiology Results (Displays last 21 days for this encounter ONLY) Procedure Component Value - Date/Time CULTURE BLOOD [[id number]] Collected: 03/04/25 110 Lab Status: In process Specimen: Blood Peripheral Updated: 03/04/25 112 CULTURE BLOOD [[id number]] Collected: 03/04/25 110 Lab Status: In process Specimen: Blood Peripheral Updated: 03/04/25 112 MRSA PCR [[id number]] (Normal) Collected: 03/02/25 0847 Lab Status: Final result Specimen: Microbiology from Nasal Updated: 03/02/25 1541 MRSA DNA by PCR Not detected Narrative: Methicillin-resistant Staphylococcus aureus (MRSA) DNA is not detected (presumed not colonized withMRSA). CULTURE BLOOD [[id number]] (Abnormal) Collected: 03/02/25 0533 Lab Status: Preliminary result Specimen: Blood Peripheral Updated: 03/04/25 0947 Culture Growth of Enterococcus faecalis Gram Stain Gram-positive cocci pairs and chains Narrative: Positive at 28 Hours 19 Minutes Refer to previously reported susceptibility testing, specimen number:[id number] CULTURE BLOOD [[id number]] (Abnormal) Collected: 03/02/25 05 Lab Status: Preliminary result Specimen: Blood Peripheral Updated: 03/04/25 0938 Culture Growth of Enterococcus faecalis Gram Stain Gram-positive cocci pairs and chains Narrative: Positive at 22 Hours 44 Minutes BLOOD CULTURE ID PANEL [[id number]] (Abnormal) Collected: 03/02/25532 Lab Status: Final result Specimen: Blood Peripheral Updated: 03/03/25 1033 Enterococcus faecalis Detected Van A/B Vancomycin Resistance Not detected Comment: Results indicate vancomycin-susceptible Enterococcus faecalis. Nasir/B not detected. Narrative: Blood Culture ID Panel performed by [employer] multiplex PCR. The Test panel includes: Gram Positive Bacteria: Enterococcus faecalis, Enterococcus faecium, Listeria monocytogenes, Staphylococcus (genus), Staphylococcus aureus, Staphylococcus epidermidis, Staphylococcus lugdunensis, Streptococcus (genus), Streptococcus agalactiae (Group B), Streptococcus pneumoniae, Streptococcus pyogenes (Group A). Gram Negative Bacteria: Acinetobacter baumannii complex, Bacteroides fragilis, Haemophilus influenzae, Neisseria meningitidis (encapsulated), Pseudomonas aeruginosa, Stenotrophomonas maltophilia, Enterobacterales (formerly Enterobacteriaceae family), Enterobacter cloacae complex, Escherichia coli, K lebsiella (formerly Enterobacter) aerogenes, Klebsiella oxytoca, Klebsiella pneumoniae group, Proteus (genus), Salmonella species, Serratia marcescens. YEAST: Yesi albicans, Yesi auris, Yesi glabrata, Yesi krusei, Yesi parapsilosis, Yesi tropicalis, Cryptococcus neoformans/gattii. Antimicrobial Resistance Genes: CTX-M (extended-spectrum beta-lactamase), IMP ([place] beta-lactamase), KPC (carbapenemase), mcr-1 (colistin resistance determinant) mecA/C (methicillin-resistance), mecA/C and MREJ (methicillin- resistance - MRSA), NDM ([place] zvtjvsm-djix-ddqhpunfm), OXA-48-like ( oxacillinase beta-lactamase),Nasir/B (vancomycin-resistance), VIM ([place] Intergrom-Encoded [place]allo beta-lactamase). Imaging XR Panorex 03/03: FINDINGS: Multiple dental restorations are identified, and numerous teeth are absent. There are scattered dental caries. No acute mandibular fracture is identified. Both temporomandibular joints are intact. Lucencies within the right mandibular presumed location of absent of the molar and premolar teeth. IMPRESSION: Lucencies within the right mandibular presumed location of absent of the molar and premolar teeth. Recommend dental consultation. Relevant labs and imaging data reviewed on Epic. Assessment and Plan Abscess of spleen (POA: Yes) HTN (hypertension) (POA: Yes) Diverticulosis (POA: Yes) Bacteremia (POA: Yes) Mitral valve vegetation (HCC) (POA: Yes) COPD (chronic obstructive pulmonary disease) (HCC) (POA: Yes) Endocarditis, suspected (POA: Yes) Assessment & Plan Abscess of spleen Diverticulosis Bacteremia Mitral valve vegetation (HCC) Endocarditis, suspected - CT Abd/Pelvis, OSH (02/28/25): New 8.1 x 5.2 x 5.1 cm relatively low- attentuation likely complex cystic lesion in the inferior spleen. This has developed since 12/05/2024 arguing against neoplasm and favring either subacute hematoma or abscess in the appropriate clinical setting. - Elevated WBC 13.2 at outside hospital, 11.4 this AM and afebrile - IR consulted for possible abscess, low suspicion of abscess based on imaging appearance. No indication for drainage at this time; if patient clinically worsens, could consider MRI w/ contrast but not currently indicated. Imaging finding likely splenic hematoma vs cyst - UA with no concern for infection so no reflex to culture - Blood cultures from OSH revealed 1/2 cultures positive stain for gram positive cocci. Repeat blood cultures collected here revealed similar findings, 1/2 positive for gram cocci in pairs and chainsand later positive for enterococci faecalis - TTE revealed an echodensity 10 mm x 12 mm attached to the anterior mitral leaflet, possible differential includes vegetation, torn chordae. - Denies any IVDU, other drug use - Had tooth extraction 3 months ago, was scheduled for additional tooth extraction on 02/27 but missed while admitted - IR consulted for possible abscess, low suspicion of abscess based on imaging appearance. No indication for drainage at this time; if patient clinically worsens, could consider MRI w/ contrast but not currently indicated - Imaging finding likely splenic hematoma vs cyst - ACS consulted but low suspicion of abscess, given TTE results suggesting more secondary to infectious endocarditis - Per ID request and positive lab cultures for enterococcus faecalis, vancomycin and zosyn were stopped PLAN: - Switch antibiotics to ampicillin and ceftriaxone - SINTIA ordered to evaluate for infectious source on 03/06 - Per ID consult, repeat blood cultures - MRSA negative - CTS following and would appreciate recs HTN (hypertension) - Home Rx: Metoprolol succinate 25 mg PO QHS, amlodipine 5 mg PO QD - BP stable, 119-126 systolic this AM PLAN: - Continue home Rx COPD (chronic obstructive pulmonary disease) ([facility]) - Home meds include Trelegy, fluticasone propionate PLAN: - Incruse and symbicort while in-patient CKD (chronic kidney disease) Cr-3.44-3.62 PLAN: - avoid nephrotoxic agents and continue tight control of blood pressures Incidental findings requiring follow up: NA Diet: DIET REGULAR DIET NPO Except: SIPS WITH MEDS DVT Prophylaxis: SCDs only Code Status: Full Code Shen Candidate?: No Electronically Signed By: Cj Carpenter MD 03/04/2025 1:55 PM The above assessment and plan will be discussed with attending physician. This note is not final until attested by the attending physician. [1] 0.9% NaCl 3 mL Intracatheter q8h amLODIPine 5 mg Oral QDAY ampicillin 2 g Intravenous q8h budesonide-formoterol 2 puff Inhalation BID And umeclidinium 1 puff Inhalation QDAY cefTRIAXone 2 g Intravenous q12h heparin 5,000 Units Subcutaneous q8h metoprolol succinate XL 24hr 25 mg Oral AT BEDTIME montelukast 10 mg Oral AT BEDTIME pantoprazole EC 40 mg Oral QDAY polyethylene glycol 3350 17 g Oral QDAY senna 8.6 mg Oral QDAY [2] SALINE LOCK, INSERT AND MAINTAIN AND 0.9% NaCl AND 0.9% NaCl dextrose IV for hypoglycemia OR dextrose IV for hypoglycemia OR glucagon fluticasone propionate glucose (Diabetic Use) gel [3] Cosigned by Pramod Torres DO at 03/04/2025 9:09 PM CDT Associated attestation - Pramod Torres DO - 03/04/2025 9:09 PM CDT I have verified the documentation of the resident including all history, exam, and medical decision-making details. I have personally performed a physical exam and have personally reviewed the data to support my medical decision-making as outlined in the resident???s note, and I arrive independently at the same conclusion. Abscess of spleen (POA: Yes) HTN (hypertension) (POA: Yes) Diverticulosis (POA: Yes) Enterococcal bacteremia (POA: Yes) Mitral valve vegetation (HCC) (POA: Yes) COPD (chronic obstructive pulmonary disease) (HCC) (POA: Yes) Endocarditis, suspected (POA: Yes) CKD (chronic kidney disease) stage 5, GFR less than 15 ml/min (HCC) (POA: Yes) Pramod Torres DO Internal Medicine 9:08 PM 03/04/2025 * Jef Edwards RN - 03/04/2025 3:09 AM CDT Problem: Pain/Discomfort Goal: Patient exhibits reduced pain/discomfort as evidenced by pain scores Outcome: Progressing Goal: Patient uses pharmacological and non-pharmacological pain management strategies. Outcome: Progressing Goal: Patient verbalizes acceptable level of pain relief and ability to engage in desired activity. Outcome: Progressing Problem: Medication Adherence Goal: Consistently take medications as prescribed Outcome: Progressing * Almaz Earl Graduate Nurse - 03/03/2025 11:40 AM CDT Problem: Pain/Discomfort Goal: Patient exhibits reduced pain/discomfort as evidenced by pain scores Outcome: Progressing Goal: Patient uses pharmacological and non-pharmacological pain management strategies. Outcome: Progressing Goal: Patient verbalizes acceptable level of pain relief and ability to engage in desired activity. Outcome: Progressing Problem: Medication Adherence Goal: Consistently take medications as prescribed Outcome: Progressing Cosigned by Amber Merino, RN at 03/03/2025 2:32 PM CDT * Tammie Bolaños MD - 03/03/2025 8:09 AM CDT Images from the original note were not included. [facility] Internal Medicine Progress Note Name: Marshall Espinal Jr. Room/Bed: 628/01 : 1960 64 year old PCP: Provider Unknown Admit Date/Time: 03/01/2025 9:44 PM LOS: 2 Subjective Interval update: No acute events overnight. Afebrile and VSS. Reports no N/V, CP, SOB, dysuria, diarrhea, or hematochezia. Does endorse some abdominal and flank pain on exam today, worse with palpation. Underwent ECHO yesterday 03/02 which revealed an echodensity 10 mm x 12 mm attached to the anterior mitral leaflet, possible differential includes vegetation, torn chordae. Blood cultures from OSH revealed 1/2 cultures positive stain for gram positive cocci. Repeat blood cultures collected here revealed similarfindings, 1/2 positive for gram cocci in pairs and chains and later positive for enterococci. Hospital course: Marshall Espinal is a 64 year old male with PMHx of HTN, CKD, COPD, hx of recurrent nephrolithiasiswho presents from an OSH ([place]) for a splenic abscess. Pain on left side had been happening for2 weeks. Patient has a history of kidney stones and had similar symptoms in the past, so he thoughtit was another occurrence of a kidney stone. He was seen as [facility] and was told that he was going to have imaging done to rule out kidney stones, and was found to have a splenic abscess and diverticulitis. Patient reports no prior history of diverticulitis. Patient denied any issues withtrauma to his left side with respect to the splenic abscess, and he did not notice any new changes to his bowel habits. Patient reported that he was only taking Pepto bismol for his pain. Patient otherwise well on exam with no fevers. IR consutled on admission, did not feel strongly that it was an abscess and recommended against drainage. Underwent ECHO 03/02 which revealed an echodensity 10 mm x12 mm attached to the anterior mitral leaflet, possible differential includes vegetation, torn chord ae. Cardiology was consulted, and SINTIA ordered. Blood cultures from OSH revealed 1/2 cultures positive stain for gram positive cocci. Repeat blood cultures collected at [facility] revealed similar findings,1/2 positive for gram cocci in pairs and chains and later positive for enterococci on 03/03. Infectious disease consulted for recommendations regarding bacteremia with unclear source. Objective Temp: [96.3 ??F (35.7 ??C)-98.4 ??F (36.9 ??C)] 97.8 ??F (36.6 ??C) Pulse: [82-93] 82 Resp: [18-20] 18 BP: (108-129)/(67-75) 129/75 Weight change: Intake/Output Summary (Last 24 hours) at 03/03/2025 0809 Last data filed at 03/02/2025 1517 Gross per 24 hour Intake 932.36 ml Output 500 ml Net 432.36 ml Physical Exam: Physical Exam Constitutional: General: He is not in acute distress. Appearance: Normal appearance. He is not ill-appearing. HENT: Head: Normocephalic and atraumatic. Mouth/Throat: Mouth: Mucous membranes are moist. Pharynx: No oropharyngeal exudate or posterior oropharyngeal erythema. Comments: Multiple missing teeth, dental caries Eyes: General: No scleral icterus. Extraocular Movements: Extraocular movements intact. Conjunctiva/sclera: Conjunctivae normal. Cardiovascular: Rate and Rhythm: Normal rate and regular rhythm. Pulses: Normal pulses. Heart sounds: Normal heart sounds. No murmur heard. Pulmonary: Effort: Pulmonary effort is normal. No respiratory distress. Breath sounds: Normal breath sounds. No wheezing. Abdominal: General: Abdomen is flat. Bowel sounds are normal. There is no distension. Palpations: Abdomen is soft. Tenderness: There is abdominal tenderness. There is no guarding. Comments: Musculoskeletal: General: No swelling, tenderness or deformity. Skin: General: Skin is warm and dry. Coloration: Skin is not jaundiced. Findings: No bruising. Neurological: General: No focal deficit present. Mental Status: He is alert and oriented to person, place, and time. Mental status is at baseline. Cranial Nerves: No cranial nerve deficit. Sensory: No sensory deficit. Psychiatric: Mood and Affect: Mood normal. Behavior: Behavior normal. Scheduled Medications: Medications[1] PRN Medications: Medications[2] Continuous Infusions: Medications[3] Laboratory Data Recent Labs Component Name 03/03/25 0500 03/02/25 0534 WBC 11.7* 11.4* HGB 8.2* 8.4* HCT 26.3* 26.6* PLTCOUNT 412 410 MCV 86.2 86.9 No results for input(s): PT, INR, PTT in the last 72944 hours. Recent Labs Component Name 03/03/25 0500 03/02/25 0534 NA 138 137 POTASSIUM 4.0 4.2 CL 107 109* CO2 20* 20* BUN 44* 50* CREATININE 3.62* 3.45* Recent Labs Component Name 03/03/25 0500 03/02/2534 CALCIUM 9.1 9.0 PHOS 4.6 4.4 Recent Labs Component Name 03/03/25 05003/02/25 0534 PROT 7.2 7.6 ALB 2.6* 2.6* ALKPHOS 212* 218* AST 11 14 ALT <5* 13 TBILI 0.3 0.5 No results for input(s): CKTOTAL, CKMBCK2, TROPONINI in the last 40933 hours. Recent Labs Component Name 03/03/25 050 VANCORNDM 17.1 Microbiology Results (Displays last 21 days for this encounter ONLY) Procedure Component Value - Date/Time MRSA PCR [[id number]] (Normal) Collected: 03/02/2547 Lab Status: Final result Specimen: Microbiology from Nasal Updated: 03/02/25 1541 MRSA DNA by PCR Not detected Narrative: Methicillin-resistant Staphylococcus aureus (MRSA) DNA is not detected (presumed not colonized withMRSA). CULTURE BLOOD [[id number]] Collected: 03/02/25532 Lab Status: In process Specimen: Blood Peripheral Updated: 03/02/25 0606 CULTURE BLOOD [[id number]] (Abnormal) Collected: 03/02/25532 Lab Status: Preliminary result Specimen: Blood Peripheral Updated: 03/03/25 0746 Gram Stain Gram-positive cocci pairs and chains Narrative: Positive at 22 Hours 44 Minutes BLOOD CULTURE ID PANEL [[id number]] Collected: 03/02/25532 Lab Status: In process Specimen: Blood Peripheral Updated: 03/03/25 0731 Imaging No results found. Relevant labs and imaging data reviewed on Epic. Assessment and Plan Abscess of spleen (POA: Clinically Undetermined) HTN (hypertension) (POA: Yes) Diverticulosis (POA: Yes) Assessment & Plan Abscess of spleen Diverticulosis Bacteremia Mitral valve vegetation (HCC) Endocarditis, suspected - CT Abd/Pelvis, OSH (02/28/25): New 8.1 x 5.2 x 5.1 cm relatively low- attentuation likely complex cystic lesion in the inferior spleen. This has developed since 12/05/2024 arguing against neoplasm and favring either subacute hematoma or abscess in the appropriate clinical setting. - Elevated WBC 13.2 at outside hospital, 11.4 this AM and afebrile - IR consulted for possible abscess, low suspicion of abscess based on imaging appearance. No indication for drainage at this time; if patient clinically worsens, could consider MRI w/ contrast but not currently indicated. Imaging finding likely splenic hematoma vs cyst - UA with no concern for infection so no reflex to culture - Blood cultures from OSH revealed 1/2 cultures positive stain for gram positive cocci. Repeat blood cultures collected here revealed similar findings, 1/2 positive for gram cocci in pairs and chainsand later positive for enterococci faecalis - ECHO revealed an echodensity 10 mm x 12 mm attached to the anterior mitral leaflet, possible differential includes vegetation, torn chordae. - Denies any IVDU, other drug use - Had tooth extraction 3 months ago, was scheduled for additional tooth extraction on 02/27 but missed while admitted PLAN: - Discontinue zosyn, will start CTX and continue vancomycin - ID consulted, will f/u on recs - Cardiology consulted given new MV vegetation, will f/u on recs, SINTIA ordered for further evaluation, scheduled for 03/06, will be NPO at midnight prior - UDS ordered - Panorex ordered - TTE to evaluate for other infectious source HTN (hypertension) - Home Rx: Metoprolol succinate 25 mg PO QHS, amlodipine 5 mg PO QD - BP stable, 119-126 systolic this AM PLAN: - Continue home Rx COPD (chronic obstructive pulmonary disease) (HCC) - Home meds include Trelegy, fluticasone propionate PLAN: - Incruse and symbicort while in-patient Incidental findings requiring follow up: NA Diet: DIET REGULAR DVT Prophylaxis: SCDs only Code Status: Full Code Shen Candidate?: No Electronically Signed By: Tammie Bolaños MD 03/03/2025 8:09 AM The above assessment and plan will be discussed with attending physician. This note is not final until attested by the attending physician. [1] 0.9% NaCl 3 mL Intracatheter q8h amLODIPine 5 mg Oral QDAY budesonide-formoterol 2 puff Inhalation BID And umeclidinium 1 puff Inhalation QDAY metoprolol succinate XL 24hr 25 mg Oral AT BEDTIME montelukast 10 mg Oral AT BEDTIME pantoprazole EC 40 mg Oral QDAY piperacillin-tazobactam 4.5 g Intravenous q8h polyethylene glycol 3350 17 g Oral QDAY senna 8.6 mg Oral QDAY vancomycin (VANCOCIN) IV dose per pharmacy Does not apply DIRECTED [2] SALINE LOCK, INSERT AND MAINTAIN AND 0.9% NaCl AND 0.9% NaCl dextrose IV for hypoglycemia OR dextrose IV for hypoglycemia OR glucagon fluticasone propionate glucose (Diabetic Use) gel [3] Cosigned by Pramod Torres DO at 03/03/2025 3:41 PM CDT Associated attestation - Pramod Torres DO - 03/03/2025 3:41 PM CDT I have verified the documentation of the resident including all history, exam, and medical decision-making details. I have personally performed a physical exam and have personally reviewed the data to support my medical decision-making as outlined in the resident???s note, and I arrive independently at the same conclusion. Abscess of spleen (POA: Clinically Undetermined) HTN (hypertension) (POA: Yes) Diverticulosis (POA: Yes) Bacteremia (POA: Yes) Mitral valve vegetation (HCC) (POA: Yes) COPD (chronic obstructive pulmonary disease) (HCC) (POA: Yes) Endocarditis, suspected (POA: Yes) Pramod Torres, Internal Medicine 3:41 PM 03/03/2025 * Birdie Gaytan - 03/03/2025 6:55 AM CDT [facility] INTERNAL MEDICINE PROGRESS NOTE Patient: Marshall Espinal Jr. Sex: male Age: [age] year old Date of : 1960 Date of Admission: 03/01/2025 Date: 03/03/2025 LOS: 2 SUBJECTIVE Interval History: NAEON. Pain has worsened from 12/27 to 01/26. Physical exam remains unremarkable. Denies changes to voiding and bowel movements. Hospital Course: Mr. Marshall Espinal is a 64 yo M with PMHx of HTN, CKD, COPD w h/o nephrolithiasis who presented to OSH for 2 weeks of left sided flank pain. OSH CT Abd/pelvis showed a complex, cystic lesion of the inferior left spleen and diverticulosis. He was transferred to [facility] on 03/01. In the ED, he was started on empiric vancomycin and zosyn. On 03/02, TTE showed mild mitral regurgitation and [id number] echodensity of the anterior mitral valve leaflet. OSH and ED blood cultures grew gram positive organisms by03/03. OBJECTIVE Vital Signs: Vitals: 03/02/25 1606 03/02/25 2042 03/03/25 0848 03/03/25 0859 BP: 108/67 129/75 118/78 Pulse: 93 82 88 89 Resp: 20 18 20 18 Temp: 98.4 ??F (36.9 ??C) 97.8 ??F (36.6 ??C) 97.7 ??F (36.5 ??C) SpO2: 100% 93% 99% 98% Weight: Height: Temp Min: 96.3 ??F (35.7 ??C) Max: 98.4 ??F (36.9 ??C), Pulse Min: 82 Max: 94, Resp Min: 18 Max: 20, BP Min: 108/67 Max: 129/75 Intake & Output: In: 932.4 [P.O.:754; I.V.:178.4] Out: 500 [Urine:500] Physical Exam: General: Well-appearing, pleasant male HEENT: Several front teeth missing. Cardiac: RRR. No murmurs or rubs Pulm: CTAB. No wheezes or crackles. Abdominal: Left posterior flank tenderness to palpation. NS, ND, NT to other quadrants. Extremities: Appropriate warmth and pallor. Psych: Appropriate mood and effect. Current Medications: Scheduled: Medications[1] Continuous: Medications[2] PRN: Medications[3] Significant Lab Results: Results for orders placed or performed during the hospital encounter of 03/01/25 (from the past 24 hours) ECHO COMPLETE Result Value Ref Range LVOT pk valeriano 108.123 cm/s AV mn grad 2.563 mmHg LV ESV A2C 44.485 ml LV A2C EF 64.862 % LA size 3.994 cm AV VTI 19.947 cm LVOT pk grad 3.916 mmHg Ascending aorta 3.416 cm AV pk grad 5.024 mmHg LVOT VTI 19.161 cm AV area pk valeriano 3.513 cm? LV A4C EF 63.368 % AV area cont VTI 3.54 cm? MV mn grad 1.59 mmHg LVIDs 2.683 cm MV pk valeriano regurg 522.826 cm/s MV VTI 17.756 cm RVIDd 3.912 cm MR VTI 161.722 cm TAPSE 2.078 cm TR pk valeriano 232.998 cm/s PV pk valeriano 111.933 cm/s AV pk valeriano 113.448 cm/s LV EDV A4C 112.885 ml LVIDd 4.127 cm RV-valdez basal diam 3.076 cm IVSd 2D 1.322 cm RA area 19.499 cm? LV biplane EF 64.104 % MV A pk valeriano 99.243 cm/s LVPWd 1.277 cm MV E pk valeriano 61.621 cm/s LV ESV A4C 41.352 ml PV VTI 19.256 cm MV E' lateral valeriano 9.784 cm/s LVOT diam 2.166 cm LV EDV A2C 126.6 ml Sinus of Valsalva 3.8 cm AV area index 1.795 cm?/m? Dimensionless Index 0.961 unitless Myocardial strain charge 2 unitless VANCOMYCIN LEVEL RANDOM Result Value Ref Range Vancomycin Random 20.4 Therapeutic Ranges not established for random specimens ug/mL CBC W AUTO DIFFERENTIAL Result Value Ref Range WBC 11.7 (H) 4.0 - 10.7 x10E9/L RBC Count 3.05 (L) 4.30 - 5.80 x10E12/L Hemoglobin 8.2 (L) 13.3 - 17.5 g/dL Hematocrit 26.3 (L) 38.7 - 51.1 % MCV 86.2 80.0 - 98.0 fL MCH 26.9 26.7 - 33.6 pg MCHC 31.2 (L) 31.7 - 36.3 g/dL RDW-CV 14.4 11.3 - 14.8 % Platelet Count 412 150 - 420 x10E9/L MPV 9.6 7.8 - 11.4 fL Neutrophil % 70.7 41.0 - 74.0 % Lymphocyte % 16.1 (L) 17.0 - 47.0 % Monocyte % 8.9 3.0 - 11.0 % Eosinophil % 3.2 0.0 - 7.0 % Basophil % 0.2 0.0 - 1.6 % Immature Granulocytes % 0.9 0.0 - 1.0 % Neutrophil Absolute 8.29 (H) 1.60 - 7.50 x10E9/L Lymphocyte Absolute 1.88 1.00 - 4.40 x10E9/L Monocyte Absolute 1.04 (H) 0.15 - 1.00 x10E9/L Eosinophil Absolute 0.37 0.00 - 0.60 x10E9/L Basophil Absolute 0.02 0.00 - 0.13 x10E9/L COMPREHENSIVE METABOLIC PANEL Result Value Ref Range BUN 44 (H) 7 - 26 mg/dL Creatinine 3.62 (H) 0.71 - 1.16 mg/dL Sodium 138 136 - 145 mmol/L Potassium 4.0 3.5 - 4.5 mmol/L Chloride 107 98 - 107 mmol/L CO2 20 (L) 22 - 29 mmol/L Glucose 103 (H) 70 - 99 mg/dL Calcium 9.1 8.4 - 10.2 mg/dL Protein Total 7.2 6.0 - 8.3 g/dL Albumin 2.6 (L) 3.4 - 5.0 g/dL Bilirubin Total 0.3 0.2 - 1.2 mg/dL Alkaline Phosphatase 212 (H) 40 - 150 U/L ALT <5 (L) 5 - 55 U/L AST 11 5 - 34 U/L Anion Gap 11 6 - 16 BUN/Creatinine Ratio 12 7 - 23 Osmolality Calculated 297 (H) 275 - 295 mOsm/kg Albumin/Globulin Ratio 0.6 (L) 1.1 - 2.3 eGFR by CKD-EPI 18 (L) >=90 mL/min/1.73 m2 MAGNESIUM BLOOD Result Value Ref Range Magnesium 1.9 1.6 - 2.6 mg/dL PHOSPHORUS BLOOD Result Value Ref Range Phosphorus 4.6 2.8 - 5.1 mg/dL VANCOMYCIN LEVEL RANDOM Result Value Ref Range Vancomycin Random 17.1 Therapeutic Ranges not established for random specimens ug/mL Microbiology: Culture Blood collected 03/02: Gram-positive cocci pairs and chains Positive at 22 Hours 44 Minutes Enterococcus faecalis Detected Abnormal Not detected Van A/B Vancomycin Resistance Not detected Not detected Comment: Results indicate vancomycin-susceptible Enterococcus faecalis. Nasir/B not detected. Imaging & Studies: Echo Transthoracic (03/02) Summary * The left ventricle is normal in size, with normal systolic function and an estimated ejection fraction of 64 % by biplane method of disks. Left ventricular wall motion is normal. * The left ventricular diastolic function is normal. * The mitral valve is displaying restricted posterior leaflet motion with calcification. There is an echodensity 10 mm x 12 mm attached to the anterior mitral leaflet, possible differential includes vegetation, torn chordae. Need to correlate clinically and SINTIA if clinicalsuspicion of endocarditis. * There is mild tricuspid valve regurgitation. * There is mild mitral valve regurgitation. * The pulmonary artery systolic pressure is normal, 27 mmHg. ASSESSMENT & PLAN #Left splenic lesion Patient had a complex cystic lesion on the inferior left spleen identified at OSH on CT abd/pelvis.OSH blood culture returned positive for gram positive in anaerobe tube. [facility] BC detected enterococcus faecalis. UA negative for infection. TTE 03/03 showed mild mitral regurgitation with 10mm x 12mm ec hodensity to anterior mitral leaflet, concerning for possible infective endocarditis. WBC 11.7. Currently receiving empiric vanc and zosyn. EBV negative. MRSA nares negative. Patient is afebrile. PLAN: - IR consulted, no intervention at this time due to low likelihood of splenic abscess - Consult cardiology and ID - XR panorex for possible oral source of infection - SINTIA for further echodensity evaluation - Change zosyn to ceftriaxone, continue vanc. Pending ID recs - Tylenol prn for pain #Diverticulosis Diverticulosis incidentally discovered on OSH CT. Patient denies history of diverticulosis. Low concern for diverticulitis given no abdominal pain or changes to bowel movements. PLAN: - Monitor and provide patient education on disease and diet #Hypertension BP stable, 108-131/67-78 last 24h PLAN: - Continue home metoprolol 25mg qhs Code: Full Diet: Regular Electrolytes: Replete PRN PPx: None Access: PIV R Antecubital Dispo: Medicine The above assessment and plan will be discussed with the attending. This note is not final until attested by attending physician. Birdie Gaytan Internal Medicine, [address] 03/03/2025 10:45 AM [1] 0.9% NaCl 3 mL Intracatheter q8h amLODIPine 5 mg Oral QDAY budesonide-formoterol 2 puff Inhalation BID And umeclidinium 1 puff Inhalation QDAY cefTRIAXone 2 g Intravenous q24h metoprolol succinate XL 24hr 25 mg Oral AT BEDTIME montelukast 10 mg Oral AT BEDTIME pantoprazole EC 40 mg Oral QDAY polyethylene glycol 3350 17 g Oral QDAY senna 8.6 mg Oral QDAY vancomycin (VANCOCIN) IV dose per pharmacy Does not apply DIRECTED [2] [3] SALINE LOCK, INSERT AND MAINTAIN AND 0.9% NaCl AND 0.9% NaCl dextrose IV for hypoglycemia OR dextrose IV for hypoglycemia OR glucagon fluticasone propionate glucose (Diabetic Use) gel Cosigned by Pramod Torres DO at 03/03/2025 3:10 PM CDT * Jef Edwards RN - 03/02/2025 11:42 PM CDT Problem: Pain/Discomfort Goal: Patient exhibits reduced pain/discomfort as evidenced by pain scores Outcome: Progressing Goal: Patient uses pharmacological and non-pharmacological pain management strategies. Outcome: Progressing Goal: Patient verbalizes acceptable level of pain relief and ability to engage in desired activity. Outcome: Progressing Problem: Medication Adherence Goal: Consistently take medications as prescribed Outcome: Progressing * Yessenia Adam, [facility] - 03/02/2025 6:25 PM CDT ACTIVE CONSULTS TO PHARMACY/DISEASE STATE MONITORING Pharmacy Consult: Vancomycin ASSESSMENT/PLAN Indication: suspected splenic abscess with Goal Level: redosing based on random level <20 mcg/ml ID consulted/following: No Assessment: Day of treatment: 1 End of treatment date: to be determined Current dosing regimen: 1250 mg, Intermittent dosing based on levels Recent Labs Component Name 03/02/25 1643 03/02/25 0534 03/02/25 0533 CREATININE - 3.45* - BUN - 50* - VANCORNDM 20.4 - 24.8 Microbiology: Recent Labs Component Name 03/02/25 0847 MRSADPCR Not detected MRSA positive: No Other pertinent micro: No BC-NGTD MRSA nasal swab-not detected Renal: Considered difficult to accurately assess at this time as patient has unclear SCr lab history in EPIC Per OSH, patient's SCr has ranged from 2.7 to 4 but unclear what true baseline is Serum creatinine: 3.45 mg/dL (H) 03/02/25 0534 Estimated creatinine clearance: 22.1 mL/min (A) Level(s): Pharmacokinetic calculations unreliable at this time due to unstable renal function/drug clearance.Reasonable to continue to target random levels 10-20 mcg/ml with redosing for <20 mcg/ml unless dictated differently in plan below. Plan Dosing: Will continue serial dosing but will hold off on ordering additional dose at this time until next level check. Monitoring: Will order a vancomycin random level on 03/03/25 at 0400 and adjust regimen if indicated. Continue to monitor patient???s renal function and cultures as needed. Yessenia Adam RPH 03/02/2025 6:20 PM [facility] Vancomycin Guideline SUBJECTIVE/OBJECTIVE Marshall Espinal Jr. is a 64 year old male. Height: 5' 7 (170.2 cm) Wt 81 kg (178 lb 8 oz) Body mass index is 27.96 kg/m??. Vancomycin Administrations from MAR (last 72 hours) None * Alejandra Sanchez RN - 03/02/2025 1:27 PM CDT Care Coordination Initial Assessment Expected Discharge Date: 03/03/2025 Expected Discharge Disposition: Home or Self Care Transportation at Discharge: Family Prior Level of Care: Home Prior to Admit Provider: Comments: 64yo male who is independent with ADLs. The patient denies the use of DME and HD. Address, insurance, and PCP. Family plans to transport at discharge. Lives with: Spouse/Significant Other Physical Limitations: None Requires Assistance With: None Preferred Pharmacy: [facility] [place] [address] [place] [address] [address] [facility] [address] READMISSION RISK SCORE is 10 at 1:27 PM 03/02/2025. Met with patient Family Support (name and phone): Extended Emergency Contact Information Primary Emergency Contact: irma espinal Mobile Relation: Spouse Preferred language: [place] Broke Handler needed? 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 No Durable Medical Equipment Planning List DME pt. requires but does not have.: None Media Operator Referral: No. Will continue to follow. For any questions or needs please contact: Supervisor Extrusion/Social Work Name/Phone number: Alejandra Sanchez RN * Jason Goddard PharmD - 03/02/2025 7:21 AM CDT ACTIVE CONSULTS TO PHARMACY/DISEASE STATE MONITORING Pharmacy Consult: Vancomycin ASSESSMENT/PLAN Indication: suspected splenic abscess with Goal Level: redosing based on random level <20 mcg/ml ID consulted/following: No Assessment Microbiology: No results for input(s): MRSADPCR in the last 53362 hours. History/current positive cultures for MRSA: No Other pertinent micro: No 03/02 blood cx: in process Renal: Recent Labs Component Name 03/02/25 0534 CREATININE 3.45* BUN 50* Considered unstable at this time as patient has Estimated Creatinine Clearance: 22.1 mL/min (A) (byC-G formula based on SCr of 3.45 mg/dL (H)). Historical dosing data that influences current dosing decisions: Yes, previously received vancomycin at OSH Plan Regimen: Loading dose: no loading dose. Maintenance dose: to be determined Dosing interval: Intermittent dosing based on levels Unable to calculate expected vancomycin level at this time due to above intermittent dosing plan Monitoring: Will order a vancomycin random level on 03/02 at 1800 and adjust regimen if indicated. Continue to monitor patient???s renal function and cultures as needed. Jason Goddard PharmD 03/02/2025 7:13 AM [facility] Vancomycin Guideline SUBJECTIVE/OBJECTIVE Marshall Espinal is a 64 year old male Height: 5' 7 (170.2 cm) Wt 81 kg (178 lb 8 oz) Body mass index is 27.96 kg/m??. Dialysis Orders (72h ago, onward) None Vancomycin Administrations from SEP (last 72 hours) None Recent Labs Component Name 03/02/25 0533 VANCORNDM 24.8 * Tammie Bolaños MD - 03/02/2025 7:13 AM CDT Images from the original note were not included. [facility] Internal Medicine Progress Note Name: Marshall Espinal Jr. Room/Bed: [facility] : 1960 64 year old PCP: Provider Unknown Admit Date/Time: 03/01/2025 9:44 PM LOS: 1 Subjective Interval update: No acute events overnight. Afebrile and VSS. Reports no abdominal pain on exam today, no N/V, CP, SOB, dysuria, diarrhea, or hematochezia. Patient feels well overall and has no concerns at this time.Lab workup reveals mildly elevated white count at 11.4, hgb of 8.4, and otherwise wnl. Hospital course: Marshall Espinal is a 64 year old male with PMHx of HTN, CKD, COPD, hx of recurrent nephrolithiasiswho presents from an OSH ([place]) for a splenic abscess. Pain on left side had been happening for 2 weeks. Patient has a history of kidney stones and had similar symptoms in the past, so he thought it was another occurrence of a kidney stone. He was seen as [facility] and was told that he was going to have imaging done to rule out kidney stones, and was found to have a splenic abscess and diverticulitis. Patient reports no prior history of diverticulitis. Patient denied any issues with trauma to his left side with respect to the splenic abscess, and he did not notice any new changes to his bowel habits. Patient reported that he was only taking Pepto bismol for his pain. Patient otherwise well on exam with no fevers. Objective Temp: [97.1 ??F (36.2 ??C)] 97.1 ??F (36.2 ??C) Pulse: [92-94] 92 Resp: [18] 18 BP: (119-126)/(76-80) 119/76 Weight change: No intake or output data in the 24 hours ending 03/02/25 1346 Physical Exam: Physical Exam Constitutional: General: He is not in acute distress. Appearance: Normal appearance. He is not ill-appearing. HENT: Head: Normocephalic and atraumatic. Mouth/Throat: Mouth: Mucous membranes are moist. Pharynx: No oropharyngeal exudate or posterior oropharyngeal erythema. Comments: Multiple missing teeth, dental caries Eyes: General: No scleral icterus. Extraocular Movements: Extraocular movements intact. Conjunctiva/sclera: Conjunctivae normal. Cardiovascular: Rate and Rhythm: Normal rate and regular rhythm. Pulses: Normal pulses. Heart sounds: Normal heart sounds. No murmur heard. Pulmonary: Effort: Pulmonary effort is normal. No respiratory distress. Breath sounds: Normal breath sounds. No wheezing. Abdominal: General: Abdomen is flat. Bowel sounds are normal. There is no distension. Palpations: Abdomen is soft. Tenderness: There is no abdominal tenderness. There is no guarding. Comments: No tenderness to left flank on palpation Musculoskeletal: General: No swelling, tenderness or deformity. Skin: General: Skin is warm and dry. Coloration: Skin is not jaundiced. Findings: No bruising. Neurological: General: No focal deficit present. Mental Status: He is alert and oriented to person, place, and time. Mental status is at baseline. Cranial Nerves: No cranial nerve deficit. Sensory: No sensory deficit. Psychiatric: Mood and Affect: Mood normal. Behavior: Behavior normal. Scheduled Medications: Medications[1] PRN Medications: Medications[2] Continuous Infusions: Medications[3] Laboratory Data Recent Labs Component Name 03/02/25 0534 WBC 11.4* HGB 8.4* HCT 26.6* PLTCOUNT 410 MCV 86.9 No results for input(s): PT, INR, PTT in the last 09592 hours. Recent Labs Component Name 03/02/2534 NA 137 POTASSIUM 4.2 CL 109* CO2 20* BUN 50* CREATININE 3.45* Recent Labs Component Name 03/02/2534 CALCIUM 9.0 PHOS 4.4 Recent Labs Component Name 03/02/2534 PROT 7.6 ALB 2.6* ALKPHOS 218* AST 14 ALT 13 TBILI 0.5 No results for input(s): CKTOTAL, CKMBCK2, TROPONINI in the last 76997 hours. Recent Labs Component Name 03/02/25 0533 VANCORNDM 24.8 Microbiology Results (Displays last 21 days for this encounter ONLY) Procedure Component Value - Date/Time MRSA PCR [[id number]] Collected: 03/02/2547 Lab Status: In process Specimen: Microbiology from Nasal Updated: 03/02/25851 CULTURE BLOOD [[id number]] Collected: 03/02/25532 Lab Status: In process Specimen: Blood Peripheral Updated: 03/02/25605 CULTURE BLOOD [[id number]] Collected: 03/02/25532 Lab Status: In process Specimen: Blood Peripheral Updated: 03/02/25605 Imaging No results found. Relevant labs and imaging data reviewed on [facility]. Assessment and Plan Abscess of spleen (POA: Clinically Undetermined) HTN (hypertension) (POA: Yes) Diverticulosis (POA: Yes) Assessment & Plan Abscess of spleen Diverticulosis - Present on arrival - CT Abd/Pelvis, OSH (02/28/25): New 8.1 x 5.2 x 5.1 cm relatively low- attentuation likely complex cystic lesion in the inferior spleen. This has developed since 12/05/2024 arguing against neoplasm and favring either subacute hematoma or abscess in the appropriate clinical setting. - Elevated WBC 13.2 at outside hospital, 11.4 this AM and afebrile - No pain on exam this AM, UA with no concern for infection so no reflex to culture - IR consulted for possible abscess, low suspicion of abscess based on imaging appearance. No indication for drainage at this time; if patient clinically worsens, could consider MRI w/ contrast but not currently indicated - Imaging finding likely splenic hematoma vs cyst PLAN: - Empiric Vancomycin and Zosyn, f/u with blood cultures to see if antibiotics can be deescalated - TTE to evaluate for other infectious source - Follow up blood cultures - Follow up MRSA PCR; discontinue Vancomycin if negative HTN (hypertension) - Home Rx: Metoprolol succinate 25 mg PO QHS - BP stable, 119-126 systolic this AM PLAN: - Continue home Rx Incidental findings requiring follow up: NA Diet: DIET REGULAR DVT Prophylaxis: SCDs only Code Status: Full Code Bordley Candidate?: No Electronically Signed By: Tammie Bolaños MD 03/02/2025 1:46 PM The above assessment and plan will be discussed with attending physician. This note is not final until attested by the attending physician. [1] 0.9% NaCl 3 mL Intracatheter q8h budesonide-formoterol 2 puff Inhalation BID And umeclidinium 1 puff Inhalation QDAY metoprolol succinate XL 24hr 25 mg Oral AT BEDTIME montelukast 10 mg Oral AT BEDTIME pantoprazole EC 40 mg Oral QDAY piperacillin-tazobactam 4.5 g Intravenous q8h polyethylene glycol 3350 17 g Oral QDAY senna 8.6 mg Oral QDAY vancomycin (VANCOCIN) IV dose per pharmacy Does not apply DIRECTED [2] SALINE LOCK, INSERT AND MAINTAIN AND 0.9% NaCl AND 0.9% NaCl dextrose IV for hypoglycemia OR dextrose IV for hypoglycemia OR glucagon fluticasone propionate glucose (Diabetic Use) gel [3] Cosigned by Pramod Torres DO at 03/02/2025 7:22 PM CDT Associated attestation - Pramod Torres DO - 03/02/2025 7:22 PM CDT I have verified the documentation of the resident including all history, exam, and medical decision-making details. I have personally performed a physical exam and have personally reviewed the data to support my medical decision-making as outlined in the resident???s note, and I arrive independently at the same conclusion. Abscess of spleen (POA: Clinically Undetermined) HTN (hypertension) (POA: Yes) Diverticulosis (POA: Yes) Pramod Torres DO Internal Medicine 7:17 PM 03/02/2025 * Lukas Birdie - 03/02/2025 7:03 AM CDT Images from the original note were not included. [facility] INTERNAL MEDICINE PROGRESS NOTE Patient: Marshall Espinal Sex: male Age: [age] year old Date of : 1960 Date of Admission: 03/01/2025 Date: 03/02/2025 LOS: 1 SUBJECTIVE Interval History: NAEON. Pain has improved from 10/10 to 6/10. Hospital Course: Mr Espinal is a 64 yo M with PMHx of HTN, CKD, COPD w h/o nephrolithiasis who presented to OSH for2 weeks of left sided flank pain. OSH CT Abd/pelvis showed a complex, cystic lesion of the inferiorleft spleen and diverticulosis. He was transferred to [facility] on 03/01. OBJECTIVE Vital Signs: Vitals: 03/01/25 2200 03/01/25 2215 03/01/25 2250 03/02/25 0301 BP: 126/80 119/76 Pulse: 94 92 Resp: 18 Temp: 97.1 ??F (36.2 ??C) SpO2: 100% Weight: 81 kg (178 lb 8 oz) Height: 1.702 m (5' 7) Temp Min: 97.1 ??F (36.2 ??C) Max: 97.1 ??F (36.2 ??C), Pulse Min: 92 Max: 94, Resp Min: 18 Max: 18, BP Min: 119/76 Max: 126/80 Intake & Output: No intake/output data recorded. Physical Exam: General: Cardiac: Pulm: Abdominal: Extremities: Psych: Current Medications: Scheduled: Medications[1] Continuous: Medications[2] PRN: Medications[3] Significant Lab Results: Results for orders placed or performed during the hospital encounter of 03/01/25 (from the past 24 hours) VANCOMYCIN LEVEL RANDOM Result Value Ref Range Vancomycin Random 24.8 Therapeutic Ranges not established for random specimens ug/mL CBC W AUTO DIFFERENTIAL Result Value Ref Range WBC 11.4 (H) 4.0 - 10.7 x10E9/L RBC Count 3.06 (L) 4.30 - 5.80 x10E12/L Hemoglobin 8.4 (L) 13.3 - 17.5 g/dL Hematocrit 26.6 (L) 38.7 - 51.1 % MCV 86.9 80.0 - 98.0 fL MCH 27.5 26.7 - 33.6 pg MCHC 31.6 (L) 31.7 - 36.3 g/dL RDW-CV 14.6 11.3 - 14.8 % Platelet Count 410 150 - 420 x10E9/L MPV 9.6 7.8 - 11.4 fL Neutrophil % 70.0 41.0 - 74.0 % Lymphocyte % 15.9 (L) 17.0 - 47.0 % Monocyte % 9.2 3.0 - 11.0 % Eosinophil % 3.6 0.0 - 7.0 % Basophil % 0.4 0.0 - 1.6 % Immature Granulocytes % 0.9 0.0 - 1.0 % Neutrophil Absolute 8.00 (H) 1.60 - 7.50 x10E9/L Lymphocyte Absolute 1.82 1.00 - 4.40 x10E9/L Monocyte Absolute 1.05 (H) 0.15 - 1.00 x10E9/L Eosinophil Absolute 0.41 0.00 - 0.60 x10E9/L Basophil Absolute 0.04 0.00 - 0.13 x10E9/L COMPREHENSIVE METABOLIC PANEL Result Value Ref Range BUN 50 (H) 7 - 26 mg/dL Creatinine 3.45 (H) 0.71 - 1.16 mg/dL Sodium 137 136 - 145 mmol/L Potassium 4.2 3.5 - 4.5 mmol/L Chloride 109 (H) 98 - 107 mmol/L CO2 20 (L) 22 - 29 mmol/L Glucose 85 70 - 99 mg/dL Calcium 9.0 8.4 - 10.2 mg/dL Protein Total 7.6 6.0 - 8.3 g/dL Albumin 2.6 (L) 3.4 - 5.0 g/dL Bilirubin Total 0.5 0.2 - 1.2 mg/dL Alkaline Phosphatase 218 (H) 40 - 150 U/L ALT 13 5 - 55 U/L AST 14 5 - 34 U/L Anion Gap 8 6 - 16 BUN/Creatinine Ratio 14 7 - 23 Osmolality Calculated 297 (H) 275 - 295 mOsm/kg Albumin/Globulin Ratio 0.5 (L) 1.1 - 2.3 eGFR by CKD-EPI 19 (L) >=90 mL/min/1.73 m2 MAGNESIUM BLOOD Result Value Ref Range Magnesium 2.0 1.6 - 2.6 mg/dL PHOSPHORUS BLOOD Result Value Ref Range Phosphorus 4.4 2.8 - 5.1 mg/dL MONONUCLEOSIS SCREEN Result Value Ref Range Mononucleosis Qualitative Negative Negative ASSESSMENT & PLAN #Left splenic lesion Hematoma vs abscess Patient had a complex cystic lesion on the inferior left spleen identified at OSH on CT abd/pelvis.He has also had mildly elevated WBC at 11.4, and endorses intermittent fevers within the last two weeks and bumping his left flank occasionally as 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 Currently receiving empiric vanc and zosyn. EBV negative. More likely hematoma given normal vitals and no signs of infection on PE. PLAN: - IR consulted, no intervention at this time due to low likelihood of abscess - TTE for evaluation of endocarditis as infectious source - UA for evaluation of UTI as infectious source - Follow up on blood cultures - Tylenol prn for pain #ESRD Patient has known CKD. Cr on admission 3.45, BUN 50. Baseline per visit in November is around 4. eGFR is19. Patient has a history of nephrolithiasis and was supposed to be started on HD, never began. PLAN: - Consult nephrology regarding initiation of HD #Diverticulosis Diverticulosis incidentally discovered on OSH CT. Patient denies history of diverticulosis. Low concern for diverticulitis given no abdominal pain or changes to bowel movements. PLAN: -Monitor and provide patient education on disease and diet #Anemia Anemia of chronic disease vs ABI HgB on 03/02 8.4. Previously, HgB around 12. No symptoms of fatigue, pallor, or SOB. Likely anemia of chronic disease in the setting of ESRD. Less likely ABI 2/2 splenic infarction. PLAN - Iron panel + ferritin - Transfuse if HgB <7 Code: Full Diet: NPO Electrolytes: Replete PRN PPx: None Access: PIV R Antecubital Dispo: Medicine The above assessment and plan will be discussed with the attending. This note is not final until attested by attending physician. Birdie Gaytan Internal Medicine, [facility] 03/02/2025 10:41 AM [1] 0.9% NaCl 3 mL Intracatheter q8h budesonide-formoterol 2 puff Inhalation BID And umeclidinium 1 puff Inhalation QDAY metoprolol succinate XL 24hr 25 mg Oral AT BEDTIME montelukast 10 mg Oral AT BEDTIME pantoprazole EC 40 mg Oral QDAY piperacillin-tazobactam 4.5 g Intravenous q8h polyethylene glycol 3350 17 g Oral QDAY senna 8.6 mg Oral QDAY vancomycin (VANCOCIN) IV dose per pharmacy Does not apply DIRECTED [2] [3] SALINE LOCK, INSERT AND MAINTAIN AND 0.9% NaCl AND 0.9% NaCl dextrose IV for hypoglycemia OR dextrose IV for hypoglycemia OR glucagon fluticasone propionate glucose (Diabetic Use) gel Cosigned by Pramod Torres DO at 03/02/2025 7:16 PM CDT * Radha Arteaga RN - 03/02/2025 5:46 AM CDT Problem: Pain/Discomfort Goal: Patient exhibits reduced pain/discomfort as evidenced by pain scores Outcome: Progressing Goal: Patient uses pharmacological and non-pharmacological pain management strategies. Outcome: Progressing Goal: Patient verbalizes acceptable level of pain relief and ability to engage in desired activity. Outcome: Progressing * Radha Arteaga RN - 03/01/2025 11:24 PM CDT Patient arrived and to 2 nurses performed skin check; Patient skin is intact and he has no wounds or bed sores. documented in this encounter H&P Notes * Garcia Gil MD - 03/22/2025 11:40 AM CDT INTERVENTIONAL NEPHROLOGY HISTORY AND PHYSICAL Patient Name: Marshall Espinal Jr. HISTORY OF PRESENT ILLNESS: 65 year old with CKD who is s/p mitral valve replacement presents to the interventional suite todayfor placement of dual lumen powerline for fpc antibiotics REVIEW OF SYSTEMS: Negative for f/c Negative for c/p PAST MEDICAL HISTORY: Past Medical History[1] PAST SURGICAL HISTORY: as above in PMH plus: Past Surgical History[2] SOCIAL HISTORY: Social History[3] FAMILY HISTORY: Family History[4] ALLERGIES: Allergies[5] MEDS: Reviewed VITALS: Vitals: 03/22/25 0945 03/22/25 1000 03/22/25 1050 03/22/25 1120 BP: 108/73 128/68 112/69 Pulse: 95 104 104 95 Resp: 24 (!) 73 15 18 Temp: 97.6 ??F (36.4 ??C) 97.7 ??F (36.5 ??C) SpO2: 96% 95% 98% 97% Weight: Height: Estimated body mass index is 28.83 kg/m?? as calculated from the following: Height as of this encounter: 1.702 m (5' 7.01). Weight as of this encounter: 83.5 kg (184 lb 1.6 oz). PHYSICAL EXAM: Gen in nad s1s2 rrr No edema LAB: Recent Labs Component Name 03/22/25 0341 03/21/25 04303/20/2540703/20/2532803/19/2542703/15/25201803/15/25 17303/15/25 1510 03/15/25 1433 HGB 8.4* 8.6* 8.6* 6.0* 8.0* - 7.9* 7.9* - - WBC 13.0* 11.0* 11.2* 13.7* 13.5* - 21.7* 21.7* - - PLT - - - - - - - - 215 HCT 25.5* 26.5* 25.9* 18.3* 24.5* - 24.0* 24.0* - - MCV 86.4 84.9 85.5 84.7 85.1 - 88.6 88.6 - - PT 15.7* 16.3* - 15.3* 15.8* - 16.3* - - INR 1.3 1.4 - 1.2 1.3 - 1.3 - - - = values in this interval not displayed. ) Recent Labs Component Name 03/22/2534003/21/2543403/20/2532803/19/25204303/19/2542703/18/25418 BUN 59* 51* 52* 54* 48* 48* CREATININE 2.85* 2.83* 2.94* 2.92* 3.00* 3.07* NA 136 134* 132* 134* 134* 137 CL 104 103 101 101 103 108* CO2 22 21* 22 22 22 21* CALCIUM 9.0 8.8 8.5 8.7 8.7 8.7 PHOS 3.2 3.8 3.5 - 3.0 3.2 Recent Labs Component Name 03/22/2534003/21/2543403/20/2532803/19/2542703/18/25 041 ALB 3.1* 3.2* 3.1* 3.1* 3.3* TBILI 0.3 0.3 0.2 0.4 0.3 ALT 84* 105* 127* 166* 173* AST 37* 60* 80* 173* 251* Recent Labs Component Name 03/16/2531003/15/25215703/15/25201827/25 1732 03/15/25 1600 [id number] 18.3* 18.5* 19.2* 23.6 22.1 ASSESSMENT: 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 PLAN: Proceed with Dual lumen powerline placement Garcia Gil MD [1] Past Medical History: Diagnosis Date CKD (chronic kidney disease) COPD (chronic obstructive pulmonary disease) (HCC) Exposure to noxious chemicals while working at a [employer] GERD (gastroesophageal reflux disease) HTN (hypertension) Nephrolithiasis Obstructive uropathy [2] Past Surgical History: Procedure Laterality Date Cardiac Catherization N/A 03/10/2025 N/A; Left Heart Cath CYSTOSCOPY cystoscopy with ureteral stent placement ORAL SURGERY N/A 03/09/2025 N/A; EXTRACTION DENTAL (MULTIPLE) Retinal Detachment Repair Bilateral [3] Social History Socioeconomic History Marital status: Tobacco Use Smoking status: Never Smokeless tobacco: Never Vaping Use Vaping status: Never Used Substance and Sexual Activity Alcohol use: Not Currently Alcohol/week: 2.0 - 3.0 standard drinks of alcohol Types: 2 - 3 Alcoholic drink(s) per week Comment: last drink was roughly 6 months ago Drug use: Never Sexual activity: Yes Partners: Female [4] Family History Problem Relation Name Age of Onset COPD - Chronic Obstructive Pulmonary Disease Mother Renal Disease Father [5] No Known Allergies * Yousuf Chaudhari PA-C - 03/10/2025 8:29 AM CDT Cardiac Surgery H&P/PREOP CARDIAC SURGICAL CHECK LIST HPI: 64 year old male with past medical history for HTN, CKD w/ hx of nephrolithiasis andGERD who presented from OSH for surgical evaluation of his mitral valve endocarditis. Patient developed fever/chills, left sided flank pain - CT abdomen/pelvix with concern for splenic abscess, BCx +who is being evaluated for E. Faecalis - echo w/ MV vegetation 1x1.2cm w/ mild MR - transfer to [facility]. Patient is now afebrile, WBC stable at 11, Cr. Elevated at 3 (unclear baseline). Cardiology consulted for SINTIA. Patient reports night sweats and fevers on and off for months, prompting him to stop drinking. He was drinking vodka every day prior to 6 months ago.He developed a kidney stone one month JIG FITTER, he had no prior knowledge of kidney issues prior to developing the kidney stone. 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 His left sided pain began shortly after that occurrence. Consent (ensure date and timed): Needs consent Planned Surgery: MVR with bioprosthesis Is a vendor required: No Has the vendor been contacted: No Implant: Biologic Conduit: NA STS: Mortality 7.05% Update in patient condition: Stable Full Code: Yes Type & Screen: Ordered U/A (has to be ordered for valve cases): YES, clean? Yes CBC, BMP, PT/PTT, reviewed: Recent Labs Component Name 03/10/25 0605 03/09/25 0446 03/08/25 0505 WBC 10.9* 11.0* 12.1* Recent Labs Component Name 03/10/25 0605 03/09/25 0446 03/08/25 0505 HGB 8.7* 8.9* 9.3* HCT 26.8* 29.0* 29.4* Recent Labs Component Name 03/10/25 0605 03/09/25 0446 03/08/25 0505 PLTCOUNT 502* 548* 557* Recent Labs Lab 03/10/25 0605 03/09/25 0445 03/08/25 0506 CREATININE 3.09* 3.18* 3.25* CXR: No pacemaker/defibrillator? , (if yes, ensure vendor in contacted to be present on day of surgery to make appropriate changes to pacemaker) CT chest reviewed: Ordered 03/10/25 Significant calcium in ascending aorta or near anticipated cross clamp site? Ascending aortic aneurysm 4.5mm or greater? CT TAVR (for aortic valve cases) : NA Carotid doppler show >70% stenosis (03/07/25): No, bilateral antegrade flow? Yes, Vein mapping show sizes 2.5mm or greater: NA Radial conduit? NA PFT's: N/A TTE (03/02/25): The left ventricle is normal in size, with normal systolic function and an estimated ejection fraction of 64 % by biplane method of disks. Left ventricular wall motion is normal. The left ventriculardiastolic function is normal. The mitral valve is displaying restricted posterior leaflet motion with calcification. There is an echodensity 10 mm x 12 mm attached to the anterior mitral leaflet, possible differential includes vegetation, torn chordae. Need to correlate clinically and SINTIA if clinical suspicion of endocarditis. There is mild tricuspid valve regurgitation. There is mild mitral valve regurgitation. The pulmonary artery systolic pressure is normal, 27 mmHg films viewable: Yes SINTIA (03/06/25): There is a 1.16 cm x 0.78 cm mobile vegetation attached to the atrial surface of the anterior mitral valve leaflet tip (around the A2/A3 scallop tip). There is moderate to severe mitral valve regurgitation with a very eccentric posterior jet that originates at the site of the vegetation. Mitral valve regurgitant volume is 30 ml regurgitant fraction is calculated 33%. 3-D ERO area is 0.36 cm2. Vena contracta width (2D) 0.42 cm. 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 Agitated saline contrast study at rest and with Valsalva is negative for a shunt. Normal left ventricular systolic function. Visually estimated LV EF is 55-60%. Right ventricular systolic function is grossly normal. films viewable: Yes Cardiac Cath: Ordered 03/08/25 films viewable: Bilateral UE B/P < 20 SBP difference and CABG patient: NA Medications to be stopped: Heparin gtt off prior to surgery/timing: (4 hours prior to surgery for Dr. Ribera, or electrical installation supervisor to surgery for other surgeons) Coumadin: No NOAC: No Prabhu/Arb: No Vitamins/Herbs: No Platelet inhibitors: No Jardiance: No Pain management: [facility] has requested that postoperative pain management be provided by a qualified anesthesia or pain management provider. Given the expected severity of postoperative pain associated with this procedure, advanced pain control techniques beyond the scope of routine surgical managementare medically necessary. Involvement of a provider with specialized expertise in regional anesthesia is expected to improve pain relief and reduce the risk of analgesic-related side effects. Reminder to place IP consult to pain management for zunilda-operative pain management Yousuf Chaudhari PA-C 03/10/2025 Cosigned by Rahul Hernandez MD at 03/15/2025 4:52 PM CDT * Damien Garcia MD - 03/10/2025 7:29 AM CDT [facility] PRE PROCEDURE H&P AND SEDATION NOTE Planned Course of Treatment/Procedure: Left Heart Cath History of Present Illness: 65 year old male PMHx HTN, COPD, CKD, GERD presented to [facility] as OSH transfer for CTS evaluation for mitral valve endocarditis. Determined to have E Faecalis bacteremia with 1x1.2cm MV vegetation with possible splenic infarct from septic emboli. SINTIA showing severe eccentric MR and still mobile vegetation on anterior leaflet, CTS recommending MVR next week and LHC requested as part of ischemic eval prior to surgery. This patient's prior inpatient/outpatient H&P from last 30 days was reviewed, the patient was examined, and no change has occurred in the patient's condition since the prior H&P was completed. Heart Failure: No Stress Test Preformed: None Medications, vital signs and labs results reviewed prior to procedure: Yes Past Medical & Surgical History Illnesses: Past Medical History[1] Past Surgical History[2] Allergies[3] General: Well-developed in NAD. HEENT: NC/AT. PERRL. Neck: Supple. No tenderness, enlargement, JVD. Lungs: CTAB. No respiratory distress. Heart: RRR. +S1, S2. No murmurs or gallops appreciated Abdomen: Soft. NT/ND. Ext/MS: No edema, no cyanosis Neuro: A&O x3. No focal deficits noted. Skin: No obvious rashes or lesions noted. Pulses: Radial : 2+ bilateral Recent Labs Component Name 03/09/25 0446 03/08/25 0505 03/07/25 0526 WBC 11.0* 12.1* 11.9* RBC 3.25* 3.44* 3.20* HGB 8.9* 9.3* 8.6* HCT 29.0* 29.4* 27.6* MCV 89.2 85.5 86.3 MCHC 30.7* 31.6* 31.2* PLTCOUNT 548* 557* 528* NEUTPCT 65.3 65.6 67.0 LYMPHPCT 18.8 19.3 18.5 LYMPHABS 2.07 2.34 2.20 BASOABS 0.07 0.09 0.06 Recent Labs Component Name 03/09/25 0445 03/08/25 0506 03/07/25 0526 POTASSIUM 4.1 4.1 4.2 CO2 20* 20* 21* BUN 35* 32* 30* CREATININE 3.18* 3.25* 3.09* GLUCOSE 96 101* 93 CALCIUM 9.1 9.6 9.2 ALT 8 11 12 ALKPHOS 141 152* 151* AST 13 11 17 EGFR 21* 20* 22* Recent Labs Component Name 03/08/25 0505 INR 1.1 Airway: Mallampati II (soft palate, uvula, fauces visible) ASA Class: {Class 3 - Severe Systemic Disease, Definite Functional Limitations Impression: Valvular Disease Mitral Regurgitation Severe (4+) and Pre-operative evaluation Cardiac Surgery: Greater than or equal to 4 Metabolic Equivalents without symptoms, Surgical Risk: High Risk- Vascular, Solid Organ Transplant Surgery: No Chest Pain Symptom Assessment: Asymptomatic (patient presents without angina or an anginal equivalent) Cardiac Instability: No Procedure Acuity Status: Elective Sedation: As per anaesthesia Fentanyl and Versed Indication: Sedation is required to allow for performance of procedure. Monitoring: heart rate, desk monitor, continuous pulse oximetry, frequent blood pressure checks,level of consciousness, IV access, constant attendance until patient recovered, and emergency airway equipment available. Other indicators of a difficult intubation include: None Patient airway and condition has been evaluated immediately prior to sedation and/or analgesia: Yes Cardiology High Risk Variables Mitral regurgitation Were these present on admission? Yes Consent: Risk, benefits and alternatives were discussed with patient and consent for procedure was obtained. 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 Underwent TTE 03/02 which revealed MV echodensity at anterior mitral leaflet concerning for MV vegetations. Blood cultures from OSH revealed 1/2 cultures positive stain for gram positive cocci. Repeat blood cultures collected at [facility] revealed similar findings, 1/2 positive for gram cocci in pairs and chains and later positive for enterococci on 03/03. He will be undergoing SINTIA to evaluate for MV endocarditis. Reason for SINTIA: evaluate for MV endocarditis Heart Failure: No Past Medical/Surgical History: Past Medical History[1] Past Surgical History[2] Physical Exam: Vitals: 03/05/25 0909 03/05/25 1433 03/05/25 1910 03/05/25 2040 BP: 129/81 123/85 127/78 Pulse: 105 98 106 108 Resp: 18 18 16 Temp: 98.5 ??F (36.9 ??C) 97.8 ??F (36.6 ??C) 98 ??F (36.7 ??C) SpO2: 98% 96% 97% 98% Weight: Height: Body mass index is 27.96 kg/m??. Intake/Output Summary (Last 24 hours) at 03/05/2025 2344 Last data filed at 03/05/2025 1443 Gross per 24 hour Intake 1140.86 ml Output -- Net 1140.86 ml General: Comfortable, in no acute distress. Neck: Supple, no JVD noted. Heart: RRR, normal S1& S2. No murmurs/gallop. No JVD or carotid bruits. Lungs: Clear to auscultation bilaterally. Abdomen: Soft, Nontender, Nondistended, +BS Extremities: Warm, no edema, peripheral pulses +2 throughout Neuro: A&Ox3, grossly non-focal. This patient's prior H&P was reviewed, the patient was examined, and no change has occurred in the patient's condition since the prior H&P was completed. Consent: Risk, benefits and alternatives were discussed with patient and consent for procedure was obtained. Airway: Mallampati III (soft palate, base of uvula visible) ASA Class: {Class 2 - Mild Systemic Disease,No Acute Problems, No Functional Limitations. Chest Pain Symptom Assessment: Asymptomatic (patient presents without angina or an anginal equivalent) Cardiac Instability: No Procedure Acuity Status: Elective Planned Course of Treatment/Procedure: SINTIA Sedation: Fentanyl and Versed Expected Level: Moderate sedation Indication: Sedation is required to allow for performance of procedure. Monitoring: heart rate, desk monitor, continuous pulse oximetry, frequent blood pressure checks,level of consciousness, IV access, constant attendance by RN until patient recovered, and emergencyairway equipment available. Assessment: Indications for Diagnostic procedure/SINTIA: I. Impression/Cardiac Catheterization Indication(Choose all that apply): Valvular Disease Based on the above criteria, I believe that patient meets clinical indications for a SINTIA. Consent: Risk, benefits and alternatives were discussed with patient and consent for procedure was obtained. Osvaldo Sepulveda MD Cnc Supervisor, PGY5 [facility] 2025 11:44 PM [1] Past Medical History: Diagnosis Date CKD (chronic kidney disease) COPD (chronic obstructive pulmonary disease) (HCC) GERD (gastroesophageal reflux disease) HTN (hypertension) Nephrolithiasis Obstructive uropathy [2] Past Surgical History: Procedure Laterality Date CYSTOSCOPY cystoscopy with ureteral stent placement Retinal Detachment Repair Bilateral Cosigned by Tahmina Bui MD at 03/10/2025 9:07 AM CDT * Fan Sanchez MD - 03/01/2025 9:51 PM CDT Images from the original note were not included. [facility] History and Physical Name: Marshall Espinal Room/Bed: 628/01 : 1960 64 year old PCP: No primary care provider on file. Chief Complaint Chief Complaint: pain on left flank History of Present Illness Marshall Espinal is a 64 year old male with PMHx of HTN, CKD, COPD, hx of nephrolithiasis who presents from an OSH ([facility]) for a splenic abscess. Pain on left side had been happening for 2 weeks. Patient has a history of kidney stones and had similar symptoms in the past, so he thought it was another occurrence of a kidney stone. He was seen as [facility] and was told that he was going to have imaging done to rule out kidney stones, and was found to have a splenic abscess and diverticulitis. Patient reports no prior history of diverticulitis. Patient denied any issues with trauma to his left side with respect to the splenic abscess, and he did not notice any new changes to his bowel habits or endorsed abdominal pain with respectto the diverticulitis. Patient reported that he was only taking Pepto bismol for his pain. Patient r eported having fevers ([id number] ??F, was on and off since 02/24/25). Review of Symptoms Review of Systems Constitutional: Negative for chills and fever. HENT: Negative for ear pain, hearing loss and tinnitus. Eyes: Negative for blurred vision, double vision and discharge. Respiratory: Negative for cough and hemoptysis. Cardiovascular: Negative for chest pain and palpitations. Gastrointestinal: Positive for heartburn. Negative for abdominal pain, blood in stool, diarrhea, nausea and vomiting. Genitourinary: Positive for flank pain (on left flank). Negative for dysuria and hematuria. Musculoskeletal: Negative for back pain, joint pain, myalgias and neck pain. Skin: Negative for itching and rash. Neurological: Negative for dizziness, tingling, tremors, weakness and headaches. Psychiatric/Behavioral: The patient is not nervous/anxious and does not have insomnia. Medical and Surgical History Allergies[1] Past Medical History[2] Past Surgical History[3] No current outpatient medications Social and Family History Social History Socioeconomic History Marital status: Spouse name: Not on file Number of children: Not on file Years of education: Not on file Highest education level: Not on file Occupational History Not on file Tobacco Use Smoking status: Not on file Smokeless tobacco: Not on file Substance and Sexual Activity Alcohol use: Not on file Drug use: Not on file Sexual activity: Not on file Other Topics Concern Not on file Social History Narrative Not on file Social Drivers of Health Financial Resource Strain: Low Risk (03/04/2024) Received from [facility] Overall Financial Resource Strain (CARDIA) How hard is it for you to pay for the very basics like food, housing, medical care, and heating?: Not hard at all Food Insecurity: No Food Insecurity (03/04/2024) Received from [facility] Hunger Vital Sign Worried About Running Out of Food in the Last Year: Never true Ran Out of Food in the Last Year: Never true Transportation Needs: No Transportation Needs (03/04/2024) Received from [facility] PRAPARE - Transportation In the past 12 months, has lack of transportation kept you from medical appointments or from getting medications?: No In the past 12 months, has lack of transportation kept you from meetings, work, or from getting things needed for daily living?: No Stress: Not on file Housing Stability: Low Risk (03/04/2024) Received from [facility] Housing Stability Vital Sign Unable to Pay for Housing in the Last Year: No Number of Times Moved in the Last Year: 0 Homeless in the Last Year: No Family History[4] Objective Recent Vitals: Weight change: No intake or output data in the 24 hours ending 03/01/25 2151 Physical Exam: Gen: Alert, cooperative, in no acute distress HEENT: NC/AT, EOMI, no nasal drainage Neck: Supple CV: Regular rate and rhythm. No murmurs appreciated Lungs: Clear to auscultation bilaterally Abdomen: BS+, soft, non-tender, non-distended Extremities: Nontender with normal ROM Skin: Warm, dry Neuro: Alert and oriented to person, place, time and situation Psych: Mood appropriate Laboratory Data No results for input(s): WBC, HGB, HCT, PLTCOUNT, MCV in the last 36686 hours. No results for input(s): PT, INR, PTT in the last 35185 hours. No results for input(s): NA, POTASSIUM, CL, CO2, BUN, CREATININE, GLU in the last 81783 hours. No results for input(s): CALCIUM, MG, PHOS in the last 52975 hours. No results for input(s): PROT, ALB, ALKPHOS, AST, ALT, TBILI, DBILI in the last 87218xnjtz. No results for input(s): CKTOTAL, CKMBCK2, TROPONINI in the last 27941 hours. No results for input(s): VANCORNDM, VANCTROUGH in the last 84624 hours. Microbiology Results (Displays last 21 days for this encounter ONLY) No results found for the last 504 hours. Imaging No results found. EKG Interpretation: Relevant labs and imaging data reviewed on [facility] Assessment and Plan Abscess of spleen (POA: Unknown) Patient is a 64 year old male with PMHx of HTN, CKD, COPD, hx of nephrolithiasis who presents as anOSH ([facility]) transfer for a splenic abscess. Assessment & Plan Abscess of spleen - Present on arrival - CT Abd/Pelvis, OSH (02/28/25): New 8.1 x 5.2 x 5.1 cm relatively low- attentuation likely complex cystic lesion in the inferior spleen. This has developed since 12/05/2024 arguing against neoplasm and favring either subacute hematoma or abscess in the appropriate clinical setting. - Elevated WBC 13.2 at outside hospital PLAN: - Empiric Vancomycin and Zosyn - Consult IR for asbcess - Follow up Monospot test to r/o EBV - Follow up blood cultures - Follow up MRSA PCR; discontinue Vancomycin if negative Diverticulitis - Present on arrival - CT Abd/Pelvis, OSH (02/28/25): Moderate diverticulosis without evidence of diverticulitis. Moderate bilateral fat-containing inguinal hernia. PLAN: - Empiric Vancomycin and Zosyn HTN (hypertension) - Home Rx: Metoprolol succinate 25 mg PO QHS PLAN: - Continue home Rx Incidental findings requiring follow up: Diet: No diet orders on file DVT Prophylaxis: SCDs only Goals of Care: Advance Care Planning Goals of Care Current active code status Full Code POA/Surrogate Decision Maker: [place] Candidate?: Electronically Signed By: Fan Sanchez MD Date of Service: 03/01/2025 [1] Not on File [2] No past medical history on file. [3] No past surgical history on file. [4] No family history on file. Cosigned by Adalberto Schafer MD at 03/02/2025 5:45 AM CDT Associated attestation - Adalberto Schafer MD - 03/02/2025 5:45 AM CDT I have seen and examined the patient with the resident and I agree with the findings and plan of care as documented by the resident. Date of Service: 03/01/25 No evidence of diverticulitis clinically, only diverticulosis on CT Lesion in spleen could represent abscess, hematoma, tumor. Consult IR for aspiration/drainage. Empiric vanc/pip-tazo for now Problem List: Abscess of spleen (POA: Clinically Undetermined) HTN (hypertension) (POA: Yes) Adalberto Schafer MD / documented in this encounter Procedure Notes * Garcia Gil MD - 03/22/2025 1:54 PM CDT IP Sedation Post Date/Time: 03/22/2025 1:55 PM Performed by: Garcia Gil Authorized by: Garcia Gil Unit: IR Post-Procedure Attestation: I have reviewed the post-procedure vital signs: Patient is 2 - able to move four extremities voluntarily on command. Patient 2 - is able to breathe and cough freely. Patient's 2 - Blood pressure within 20% of pre-anesthesia level Patient is 2 - Fully Awake Patient's 2 - color is WNL. Jakub score is 10 Patient's temperature is Normalthermic Patient's pain level is: None 03/22/2025 1:55 PM Garcia Gil MD * Garcia Gil MD - 03/22/2025 1:53 PM CDT Brief Procedure Note - Interventional Nephrology Marshall Espinal Jr. 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 Written consent obtained. History & Exam Attestation: I have reviewed the pre-procedure nursing assessment: Yes Brief history and exam related to procedure complete: Yes H&P was reviewed, the patient was examined, and that no changes have occurred in the patient s condition since the H&P was complete: Yes History of previous anesthetic problems/complications including family history: No History of airway problems: No Tracheal deviation: No Short thick neck/non-visible neck: No Neck with limited range of motion: No Visible anterior neck mass: No Small mouth opening/ and/or sub/mental space (less than 3 finger breadths): No Protruding upper teeth: No Oxygen saturation less than 91% on room air: No Pre-Procedure ASA Classification: ASA 2 Mallampati Classification: Class II Procedure Plan: Moderate Sedation Based on the pre-procedure assessment, History and Physical, and allergy history, this patient is asuitable candidate for sedation during the planned procedure. I have discussed the plan, risk, benefits and alternatives with patient, family members or patient territory sales representative: Yes Attestation: I have reviewed the immediate pre-procedure vital signs: Yes Patient reports or my clinical evaluation indicates there have been no changes in the patient's condition prior to the start of the procedure: Yes Intra-Procedure Patient is currently here for Powerline placement 03/22/2025 11:38 AM Garcia Gil MD documented in this encounter Consult Notes * Nico Kulkarni - 03/16/2025 11:39 AM CDTAssociated Order(s): IP CONSULT TO PASTORAL CARE Senior [employer] So[employer] Developer made initial visitation on the basis of post surgery pastoral care consult order. Pt presented as generally alert and verbal. Pt's spouse (Irma) was present throughout at bedside. No outstanding spiritual needs were stated. It was indicated that the pt did not have a background of edwardo tradition. Spouse stated that she was Hinduism. Pt indicated that the surgery received was unexpected prior to hospitalization. In these ways, the couple may be open to exploring how life may adjust at this time and in future days. A degree of spiritual distress was observed. Senior [employer] Developer offered supportive presence, introducing spiritual care in this context. Trust building was extended as this brief and ordinary conversation ensued. Follow up remains available upon request. Nico Kulkarni - Staff Senior [employer] Developer [id number] On-Call [id number] * Azra Butts RD/JAMAL - 03/16/2025 8:39 AM CDTAssociated Order(s): IP CONSULT TO NUTRITIONAL SERV BRIEF SYNOPSIS: Nutrition Risk Identified and evaluation in progress Nutrition Plan: Current diet order: Clear Liquids +Ensure High Protein (160 kcals, 16 g protein, 19 g carbohydrate) BID w/ meals +Pb BID for wound healing (provides 180 kcal, 5g collagen pro, 17g CHO, 7gm arginine, 7gm glutamine, 300mg VIT C, 9.5mg zinc) w/ meals Recommendation to Physician: Continue to advance to Cardiac CLINICAL NUTRITION ASSESSMENT: Pt consulted per vent protocol. Pt has been successfully extubated, remains clear liquid diet. Pt s/p mitral valve replacement. Recommend advancing diet as tolerated to Cardiac. No A1c in EMR. x2 chest tubes in place w/ 580ml output. BM JIG FITTER. Will order Pb BID to have for surgical wound healing when diet advances and will order Ensure HP to aid in meeting protein demands. PO intakes so far 100%of meals. Noted K of 4.8. Med/Surg History and Clinical Diagnoses: 65 year old male w/ PMHx significant for HTN, COPD, CKD who presented to [facility] with fevers/chills. Ultimately found to have Enterococcus bacteremia, splenic abscess, MV IE. Seen by ID and started on CTX/ampicillin. Admitted to ICU postop from [facility] 03/15. Height: 170.2 cm (5' 7.01) BMI: Body mass index is 29.69 kg/m??. BMI Range: Overweight IBW/lb (Calculated) Male: 148.048 Recent Weights/Methods 03/01/2025 2200 03/16/2025 0400 Weight: 81 kg (178 lb 8 oz) 86 kg (189 lb 9.5 oz) Weight Method : Bed scale Bed scale Unintentional weight change: reviewed, monitoring. PO INTAKE Current diet order: Clear Liquids Nutrition recommendation: alter/change nutrition order Food Allergies: No known food allergies Last Percent Meal Eaten (%): 100 % (03/14/25 1800) 48 hr PO INTAKE Percent Meal Eaten (%) Av % Min: 100 % Max: 100 % None Pain affecting intake: No Chewing/Swallowing: None GI Concerns: None Stools: Unmeasured Stool Occurrence: 1 (03/14/25929) Stool Appearance : Soft (03/14/25929) Skin/Wound: Incision to mouth, sternum, wound vac to sternum Estimated Needs: KCAL: 6044-7066 (30-35kcal/kg of IBW) Protein (g): 80-101 (1.2-1.5gm/kg of of IBW) Fluid (ml): 1 ml/kcal Needs based on: Kcal/kg- (Comment) (67kg of IBW) Recommended Access Route: PO Labs: Recent Labs Component Name 03/16/2531003/15/25201803/15/25 1732 NA 139 140 142 POTASSIUM 4.8* 4.2 3.8 CO2 17* 19* 21* BUN 31* 31* 31* CREATININE 2.89* 2.76* 2.56* GLUCOSE 155* 154* 167* CALCIUM 8.7 9.2 11.1* ALT 19 6 6 ALKPHOS 57 61 58 AST 68* 43* 35* EGFR 23* 25* 27* Recent Labs Component Name 03/16/2531003/15/25201803/15/25 1732 PHOS 5.1 3.7 3.6 Recent Labs Component Name 03/16/2531003/15/25201803/15/25 1732 MAGNESIUM 3.0* 3.2* 3.4* Recent Labs Component Name 03/16/25 03103/15/25201803/15/25 1732 HGB 7.4* 8.1* 7.9* 7.9* HCT 22.2* 24.1* 24.0* 24.0* No results for input(s): HGBA1C in the last 75865 hours.Patient Vitals for the past 30 hrs: Glucose Bedside (mg/dL) 03/16/25 0805 132 mg/dL 03/16/25 0600 154 mg/dL 03/16/25 0200 150 mg/dL 03/16/25 0000 147 mg/dL 03/15/25 2200 152 mg/dL 03/15/25 2158 152 mg/dL 03/15/25 2100 142 mg/dL 03/15/25 2033 153 mg/dL 03/15/25 1903 137 mg/dL MEDICATIONS FOR CURRENT ENCOUNTER: SCHEDULED MEDICATIONS: 0.9% NaCl injection 3 mL, Intracatheter, q8h acetaminophen (Ofirmev) injection 1,000 mg, Intravenous, q6h albuterol-ipratropium (Duo-Neb) nebulizer solution 3 mL, Inhalation, q4h ampicillin (Omnipen) 2,000 mg in NaCl IV 0.9 % 100 mL IVPB, Intravenous, q8h artificial tears ophthalmic ointment, Each Eye, q8h aspirin chew tablet 81 mg, Oral, QDAY cefTRIAXone (Rocephin) syringe 2,000 mg, Intravenous, q12h heparin injection 5,000 Units, Subcutaneous, q8h lidocaine (Lidoderm) 5 % patch 1 patch, Transdermal, QDAY mupirocin (Bactroban) 2 % ointment, Each Nostril, BID senna-docusate (Senokot-S) tablet 1 tablet, Oral, QDAY [COMPLETED] albumin human 5 % infusion 12.5 g, Intravenous, Once [COMPLETED] albumin human 5 % infusion 12.5 g, Intravenous, Once [COMPLETED] albumin human 5 % infusion 25 g, Intravenous, Once [COMPLETED] aspirin suppository 300 mg, Rectal, Once [COMPLETED] ceFAZolin (Ancef) 2 g in sterile water (PF) 20 mL syringe, Intravenous, q12h [] antithrombin III (Human) (Thrombate) injection 500 Units, Intravenous, Once [] pantoprazole (Protonix) injection 40 mg, Intravenous, Once CONTINUOUS MEDICATIONS: EPINEPHrine 5 mg/250 mL D5W infusion premix, Intravenous, Continuous insulin regular human (MyXRedlin) 100 units in 100 mL premix infusion, Intravenous, Continuous lactated ringers infusion, Intravenous, Continuous norepinephrine (Levophed) 8 mg/250 ml NS infusion premix, Intravenous, Continuous PRN MEDICATIONS: 0.9% NaCl infusion rate and volume, Intravenous, Once PRN 0.9% NaCl infusion rate and volume, Intravenous, Once PRN 0.9% NaCl injection 1-10 mL, Intracatheter, PRN calcium gluconate 2 g in 100 mL NaCl 0.675%, Intravenous, PRN insulin regular human bolus from bag 0-27 Units, Intravenous, BOLUS FROM BAG PRN magnesium sulfate 2 g in 50 mL bolus, Intravenous, PRN methocarbamol (Robaxin) injection 500 mg, Intravenous, q6h PRN ondansetron (Zofran) injection 4 mg, Intravenous, q4h PRN oxyCODONE (immediate release) (Roxicodone) tablet 5 mg, Oral, q6h PRN potassium chloride 20 mEq in 100 mL SW bolus, Intravenous, PRN Nutrition Diagnostic Statement: Increased nutrient needs related to:: increased demands post surgery as evidenced by:: estimated energy needs ..;estimated protein needs .. Nutrition Diagnostic Statement Progress: New diagnostic statement established Nutrition Intervention: Meals and snacks:;Medical Food Supplements: Monitoring: GI, PO intake, WT, labs, medications Monitor per nutrition guidelines. Evaluation: Nutrition Goal: Total intake will meet estimated nutrient needs Nutrition Goal Timeframe: Throughout stay Nutrition Goal Progress: New goal established Ascom [id number] * Jennyfer Dallas DO - 03/15/2025 5:30 PM CDT ICU CONSULT 03/15/2025 ADMITTING/PRIMARY TEAM: [facility] MICU CONSULTED FOR: ICU assistance/vent management Admission date: 03/01/2025 9:44 PM HPI // SUBJECTIVE History was obtained from patient, and medical chart Marshall Espinal . is a 65 year old male w/ PMHx significant for HTN, COPD, CKD who presented to [facility] with fevers/chills. Ultimately found to have Enterococcus bacteremia, splenic abscess, MV IE. Seen by ID and started on CTX/ampicillin. Admitted to ICU postop from [facility] 03/15. Patient arrives intubated/sedated. Easy airway per anesthesia. SINTIA initially with normal LV/RV function and confirmed mod/severe MR w/ vegetation -- post pump normal LV and RV with mean gradient 1. Has A and V wires, currently backup paced. Has meds CT x 2. Had to reopen for anterior wall bleeding.Ultimately required 2 U pRBC, 1 FFP, 1 plt, 300 cell saver. Received methadone and TTP block. PAST MEDICAL HISTORY: Past Medical History[1] PAST SURGICAL HISTORY: Past Surgical History[2] FAMILY HISTORY: Family History[3] SOCIAL HISTORY: Social History Socioeconomic History Marital status: Spouse name: Not on file Number of children: Not on file Years of education: Not on file Highest education level: Not on file Occupational History Not on file Tobacco Use Smoking status: Never Smokeless tobacco: Never Vaping Use Vaping status: Never Used Substance and Sexual Activity Alcohol use: Not Currently Alcohol/week: 2.0 - 3.0 standard drinks of alcohol Types: 2 - 3 Alcoholic drink(s) per week Comment: last drink was roughly 6 months ago Drug use: Never Sexual activity: Yes Partners: Female Other Topics Concern Not on file Social History Narrative Not on file Social Drivers of Health Financial Resource Strain: Low Risk (03/01/2025) Overall Financial Resource Strain (CARDIA) Difficulty of Paying Living Expenses: Not hard at all Food Insecurity: No Food Insecurity (03/01/2025) Hunger Vital Sign Worried About Running Out of Food in the Last Year: Never true Ran Out of Food in the Last Year: Never true Transportation Needs: No Transportation Needs (03/01/2025) PRAPARE - Transportation Lack of Transportation (Medical): No Lack of Transportation (Non-Medical): No Stress: No Stress Concern Present (03/01/2025) Citizen Of [place] of Occupational Health - Occupational Stress Questionnaire Feeling of Stress : Not at all Housing Stability: Unknown (03/01/2025) Housing Stability Vital Sign Unable to Pay for Housing in the Last Year: No Number of Times Moved in the Last Year: Not on file Homeless in the Last Year: No ALLERGIES: Allergies[4] HOME MEDICATIONS: Medications Ordered Prior to Encounter[5] ROS: Unable to obtain as patient intubated/sedated PHYSICAL EXAM Temp: [97.4 ??F (36.3 ??C)-98.2 ??F (36.8 ??C)] 97.4 ??F (36.3 ??C) Pulse: [80-93] 84 Resp: [9-20] 13 BP: (126-149)/(88-99) 130/88 I/O last 2 completed shifts: In: 1244 [P.O.:960; Blood Products:284] Out: 2250 [Urine:2250] General: Intubated, sedated HEENT: NC AT Cardio: RRR Resp: Clear bilaterally, mechanically ventilated Abdomen: Soft hypoactive BS Extremities: No edema Skin: No significant abrasions Neurological: Intubated/sedated, assess w/ wean ASSESSMENT & PLAN Critical care was necessary to treat or prevent life-threatening deterioration of the following - Acute respiratory failure, inherent, not a post op complication - Need for pressor/inotropic support - Stress induced hyperglycemia on insulin gtt Abscess of spleen (POA: Yes) HTN (hypertension) (POA: Yes) Diverticulosis (POA: Yes) Enterococcal bacteremia (POA: Yes) Mitral valve vegetation (HCC) (POA: Yes) COPD (chronic obstructive pulmonary disease) (HCC) (POA: Yes) Endocarditis, suspected (POA: Yes) CKD (chronic kidney disease) stage 5, GFR less than 15 ml/min (HCC) (POA: Yes) NEURO -- Sedation: Wean as able to eval neuro exam, eval for extubation -- Delirium ppx: Encourage normal sleep-wake cycle: lights on during day, lights off at night, frequent re-orientation, minimize sleep interruptions. 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 -- Post cardiac surgery inotropic/vasopressor support. MAP goal > 65. Per CTS, SBP goal 100-150,would like to use volume instead of pressors as able. -- Pacing as per CTS. A and V wires. -- Hx HTN, holding home amlodipine 5 and metop succ 25 PULM -- Acute hypoxic respiratory failure, inherent, not a post op complication: Currently on CMV. Will wean as able to PSV and eval for extubation. -- VAP bundle. Highly recommend lung protective ventilation, Vt 6-8 cc/kg, driving pressure < 13, plateau pressures < 30. Spo2 goal > 92%. -- After extubation: Aggressive chest physiotherapy with aerobika and IS. Encourage ambulation, OOB, PT/OT to avoid post op atelectasis -- Chest tube management per primary -- COPD: Home laura trelegy. Symbicort + incruse + nebs. GI -- Bowel laura -- NPO, diet to be advanced POD1 -- Ulceration ppx RENAL -- CKD w/ BL Cr ~ 3. 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 Making good urine at this time, will continue to monitor UOP and renal function. -- Monitor renal function, lytes, I/O. Avoid nephrotoxic agents ENDO -- Stress induced hyperglycemia: Insulin gtt postop. Trend sugars, goal 140-180. Hypoglycemia protocol. ID -- Surgical abx ppx -- Enterococcus bacteremia, MV IE, splenic abscess. ID on board, on CTX/amp since 03/03. BCx neg 03/04. S/p MVR 03/15, f/u intra-op Cx. F/u with iD for abx EOT. HEME/ONC -- Monitor H&H, transfuse if needed for goal Hb > 7, plt > 10 (> 30 if MCS, > 50 ifactively bleeding) I spent 40 minutes in full attendance with this critically-ill patient. Time spent was exclusive ofseparately billed procedures, treating other patients, and teaching time. Pt. is at high risk for complications and morbidity or mortality Pt. is critically ill with vital organ impairment or failure There is high probability of imminent or life threatening deterioration in the patient's condition Time involved in the performance of separately billable procedures, teaching, reviewing education material was not counted towards critical care time. 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 Current Outpatient Medications on File Prior to Encounter Medication Sig Dispense Refill amLODIPine (Norvasc) 5 MG tablet Take 1 (one) tablet by mouth once daily metoprolol succinate XL 24hr (Toprol XL) 25 MG tablet Take 1 (one) tablet by mouth once daily montelukast (Singulair) 10 MG tablet Take 1 (one) tablet by mouth at bedtime omeprazole (PriLOSEC) 40 MG capsule Take 1 (one) capsule by mouth daily before breakfast * Rosendo Varner DMD - 03/09/2025 5:38 PM CDT Dental consultation Mr. Espinal was seen for a dental consultation prior to cardiac surgery. Patient was found to havepoor dentition with evidence of recent extractions in the lower right quadrant. Exam and panorex revealed missing teeth, broken teeth, carious lesions, retained root tips, dental restorations. There is evidence of recent extractions of teeth in the lower right quadrant. Extractions sites appear to be healing within normal limits. Patient presents this evening to have teeth extracted prior to cardiac surgery. Teeth # 4,9,10,11,15,20,21,22,23 to be extracted this evening. Procedure, risks, benefits and alternatives discussed with the patient. Questions answered. Consent obtained. Patient advised to seek comprehensive dental care upon discharge from [facility]. * Rahul Berry MD - 03/07/2025 1:37 PM CDTAssociated Order(s): IP CONSULT TO NEPHROLOGY [facility] Nephrology Consult Note Date of Admission: 03/01/2025 Date of Service: 03/07/25 Consulting Service: Jose J Team Reason for Consult: Chronic Kidney Disease Brief Hospital Course: Marshall Espinal Jr. is a 65 year old male w/ PMH significant for HTN, COPD CKD stage 4,recurrent nephrolithiasis who presented to [facility] on 03/04/25 as transfer from OSH ([facility]) for splenic abscess intervention. Patient had CT imaging for abdominal pain and found to have splenic abscess for which patient was transferred to [facility] for IR intervention. On admission to [facility] patient seen by IR with evaluation that drainage was not indicated. Patient had TTE on 03/02/25 with finsings of anterior mitral leaflet echodensisity which was confirmed on SINTIA as vegetation. Blood cultures OSH revealed 1/2 cultures positive stain for gram positive cocci. Repeat blood cultures collected at [facility] revealed similar findings, 1/2 positive for gram cocci in pairs and chains and later positive for enterococci on 03/03. Infectious disease consulted for recommendations regarding bacteremia. Cardiac surgery consulted for management of endocarditis. Nephrology consulted for management of CKD and perioperative recommendations pending possible cardiac surgery intervention for endocarditis. Baseline creatinine is unknown. Patient has had creatininearound 3 since admission. Per chart review creatinine was as high as 10.4 in February 2024 admission for hyperkalemia and acute renal failure decrease to 4.47 prior to discharge. Noted at that time to have right sided hydronephrosis for which patient had cystoscopy with bilateral ureteral stents since then. No interim creatinine since that February 2024 admission. Nephrology consulted this admission for recommendations on renal function with regards to surgical planning for intervention on mitral vegetation. On interview with patient he is lying comfortably in bed. Denies shortness of breath, chest pain, nausea, vomiting. Stating he has been having 4-5 moderate voids daily. Denies hematuria. Notes some left sided back pain. No flank tenderness on palpation. Review of Systems: All systems are negative except as noted above. Past Medical History[1] Past Surgical History[2] Family History[3] Social History: Social History Socioeconomic History Marital status: Spouse name: Not on file Number of children: Not on file Years of education: Not on file Highest education level: Not on file Occupational History Not on file Tobacco Use Smoking status: Former Current packs/day: 0.00 Types: Cigarettes Quit date: 02/1971 Years since quittin.0 Smokeless tobacco: Never Vaping Use Vaping status: Never Used Substance and Sexual Activity Alcohol use: Not Currently Alcohol/week: 2.0 - 3.0 standard drinks of alcohol Types: 2 - 3 Alcoholic drink(s) per week Comment: last drink was roughly 6 months ago Drug use: Never Sexual activity: Yes Other Topics Concern Not on file Social History Narrative Not on file Social Drivers of Health Financial Resource Strain: Low Risk (03/01/2025) Overall Financial Resource Strain (CARDIA) Difficulty of Paying Living Expenses: Not hard at all Food Insecurity: No Food Insecurity (03/01/2025) Hunger Vital Sign Worried About Running Out of Food in the Last Year: Never true Ran Out of Food in the Last Year: Never true Transportation Needs: No Transportation Needs (03/01/2025) PRAPARE - Transportation Lack of Transportation (Medical): No Lack of Transportation (Non-Medical): No Stress: No Stress Concern Present (03/01/2025) Citizen Of [place] of Occupational Health - Occupational Stress Questionnaire Feeling of Stress : Not at all Housing Stability: Unknown (03/01/2025) Housing Stability Vital Sign Unable to Pay for Housing in the Last Year: No Number of Times Moved in the Last Year: Not on file Homeless in the Last Year: No Allergies: Allergies[4] Home Medications: Medications Ordered Prior to Encounter[5] Hospital Medications: Medications[6] Medications[7] Physical Exam: BP 116/77 (BP Location: Right arm, Patient Position: Lying) Pulse 96 Temp 97.3 ??F (36.3 ??C) (Temporal) Resp 18 Ht 1.702 m (5' 7) Wt 81 kg (178 lb 8 oz) SpO2 96% Intake/Output Summary (Last 24 hours) at 03/07/2025 1338 Last data filed at 03/07/2025 1304 Gross per 24 hour Intake 790 ml Output -- Net 790 ml Physical Exam Constitutional: Appearance: Normal appearance. HENT: Head: Normocephalic and atraumatic. Mouth/Throat: Comments: Poor dentition Cardiovascular: Rate and Rhythm: Normal rate and regular rhythm. Heart sounds: No murmur heard. Pulmonary: Effort: Pulmonary effort is normal. No respiratory distress. Breath sounds: Normal breath sounds. No stridor. No wheezing. Musculoskeletal: Right lower leg: No edema. Neurological: General: No focal deficit present. Mental Status: He is alert and oriented to person, place, and time. LABS: Recent Labs Component Name 03/07/2552503/06/2542303/05/2528 NA 135* 137 138 POTASSIUM 4.2 4.1 4.2 CL 106 108* 109* CO2 21* 20* 20* BUN 30* 30* 34* CREATININE 3.09* 3.16* 3.26* Recent Labs Component Name 03/07/2552503/06/2542303/05/2528 CALCIUM 9.2 9.7 9.5 PHOS 4.2 4.1 3.7 ALB 2.9* 2.9* 2.8* No results for input(s): PTHINTACT, [id number] in the last 58306 hours. Recent Labs Component Name 03/07/2552503/06/2542303/05/2528 WBC 11.9* 11.8* 10.9* HGB 8.6* 8.4* 8.5* No results for input(s): IRON, TIBC, FERRITIN in the last 40317 hours. IMAGING: XR Panorex Result Date: 03/04/2025 IMPRESSION: Lucencies within the right mandibular presumed location of absent of the molar and premolar teeth. Recommend dental consultation. The report was drafted by Ofe Aponte MD (president finance company) 03/04/2025 8:30 AM. > Dictated by Lighting Equipment Operator I, Jamie Barriga MD have personally reviewed and interpreted this examination/study. > Interpreting Provider: Jamie Barriga MD on 03/04/2025 9:17 AM ASSESSMENT #CKD Stage 4 #Mitral Valve Vegetation -Baseline serum creatinine- Unclear mg/dl. No labs available prior to February 2024 admission where creatinine was > 10. No labs available since discharge with creatinine 4.47 so unclear renal function baseline. May continue to improve but likely still with CKD stage 4. -Current serum creatinine- 3.09 mg/dl -[id number]- 21 mmol/L -Volume Status: Euvolemic -Renal USG- none # Chronic kidney disease-mineral and bone disorder (CKD-MBD) -Ca- 9.7 mg/dl, P- 4.2 mg/dl -PTH- pending pg/ml -Vitamin D- pending ng/ml # Anemia of chronic kidney disease -Hb- 8.6 g/dl -Ferritin- pending ng/ml, TSAT- pending % -Transfuse if Hb < 7 g/dl RECOMMENDATIONS - Although hemodynamic instability and other complications of procedures may increase his odds of dialysis, we do not recommend delaying clinically indicated interventions for his mitral vegetation in favor of waiting for possible further renal recovery. Delaying intervention for vegetation likely exceeds the risk of worsening renal function with said interventions - please obtain iron panel with ferritin with next AM labs - please obtain vitamin D level and PTH level with next AM labs - please obtain renal ultrasound - continue checking at least daily renal function panel - avoid unnecessary nephrotoxic medications and hypotension, keep MAP > 65 Patient will be seen and discussed with attending physician, Dr. Gil. Rahul Brery MD Internal Medicine Resident [1] Past Medical History: Diagnosis Date CKD (chronic kidney disease) COPD (chronic obstructive pulmonary disease) (HCC) GERD (gastroesophageal reflux disease) HTN (hypertension) Nephrolithiasis Obstructive uropathy [2] Past Surgical History: Procedure Laterality Date CYSTOSCOPY cystoscopy with ureteral stent placement Retinal Detachment Repair Bilateral [3] Family History Problem Relation Name Age of Onset COPD - Chronic Obstructive Pulmonary Disease Mother Renal Disease Father [4] No Known Allergies [5] No current facility-administered medications on file prior to encounter. Current Outpatient Medications on File Prior to Encounter Medication Sig Dispense Refill amLODIPine (Norvasc) 5 MG tablet Take 1 (one) tablet by mouth once daily metoprolol succinate XL 24hr (Toprol XL) 25 MG tablet Take 1 (one) tablet by mouth once daily montelukast (Singulair) 10 MG tablet Take 1 (one) tablet by mouth at bedtime omeprazole (PriLOSEC) 40 MG capsule Take 1 (one) capsule by mouth daily before breakfast [6] 0.9% NaCl 3 mL Intracatheter q8h amLODIPine 5 mg Oral QDAY ampicillin 2 g Intravenous q8h budesonide-formoterol 2 puff Inhalation BID And umeclidinium 1 puff Inhalation QDAY cefTRIAXone 2 g Intravenous q12h [Held by Provider] heparin 5,000 Units Subcutaneous q8h metoprolol succinate XL 24hr 25 mg Oral AT BEDTIME montelukast 10 mg Oral AT BEDTIME pantoprazole EC 40 mg Oral QDAY polyethylene glycol 3350 17 g Oral QDAY senna 8.6 mg Oral QDAY [7] Cosigned by Garcia Gil MD at 03/08/2025 2:17 PM CDT Associated attestation - Garcia Gil MD - 03/08/2025 2:17 PM CDT I have seen and examined the patient with the resident and I agree with the findings and plan of care as documented by the resident. CKD- 4 Spenic abscess Mitral valve endocarditis - E faecalis Planned for MVR Pt is at high risk for SELWYN and possible need for dialysis in the periop period. Given that kidney function is most likely at baseline, with potential for great harm from deferring procedures for the treatment of infective endocarditis, do not recommend delaying needed procedures from renal standpoint Appropriate caution regarding avoiding nephrotoxic drugs when possible, dosing meds for decreased GFR, maintaining hemodynamics and volume status should be applied Date of service: 03/08/25 Dr.Posan Skyler Gil Nephrology Attending [facility] 03/08/25 2:10 PM * Rosendo Varner DMD - 03/07/2025 8:05 AM CDTAssociated Order(s): IP CONSULT TO DENTIST Images from the original note were not included. Dental consultation Mr. Espinal was seen for a dental consultation. Exam and panorex revealed missing teeth, broken teeth, carious lesions, retained root tips, dental restorations. There is evidence of recent extractions of teeth in the lower right quadrant. Extractions sites appear to be healing within normal limits. Patient has very poor dentition with multiple teeth that are grossly decayed with retained roots and exposed nerve tissue. There is evidence of large carious lesions on several teeth. Patient states that he was in the process of having more teeth extracted when he ended up getting admitted to the hospital. Soft tissue exam was within normal limits. Extraction of several teeth prior to cardiac procedure recommended. As for comprehensive dental care, extraction of most if not all remaining teeth is most likely recommended. Will discuss findings with primary team. Marshall Espinal Jr. 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 General Surgery Consult History and Physical Patient Name: Marshall Espinal Jr. Age/Gender: 64 year old male : 1960 Date: 03/03/2025 Reason for Consult: Splenic abscess HPI: Marshall Espinal Jr. is a 64 year old male with PMHx of HTN, CKD, COPD, GERD hx of nephrolithiasis who presents from an OSH ([facility]) with concern for a splenic abscess. Patient reports left flank pain of 2 weeks duration. He denies any factors associated with this pain. No changes in bowel habit, nausea, or emesis. Endorses a previous history of kidney stones and states this pain was similar. At OSH he had a CT scan that demonstrating a splenic abscess vs hematoma vs cyst for which [facility] was consulted. His work-up here was notable for bacteremia (E. Faecalis) and a mitral valve endocarditis. States he was being worked up for removal of his gotten teeth for being rotten. Past Medical History[1] Past Surgical History[2] Allergies[3] Outpatient Medications: Medications[4] Inpatient Medications: Medications[5] Social History[6] Family History[7] Problem List/Present on Admission: Abscess of spleen (POA: Clinically Undetermined) HTN (hypertension) (POA: Yes) Diverticulosis (POA: Yes) Bacteremia (POA: Yes) Mitral valve vegetation (HCC) (POA: Yes) COPD (chronic obstructive pulmonary disease) (HCC) (POA: Yes) Endocarditis, suspected (POA: Yes) REVIEW OF SYSTEMS Constitutional: As per HPI Eyes: Negative for visual changes CV: Negative for chest pain Pulm: Negative for dyspnea GI: As per HPI : Negative for dysuria, hematuria MSK: Negative for myalgias, arthralgias Skin: Negative for skin changes Neuro: Negative for weakness Remainder of ROS negative unless documented in HPI PHYSICAL EXAM Vitals: 03/02/25 1606 03/02/25 2042 03/03/25 0848 03/03/25 0859 BP: 108/67 129/75 118/78 Pulse: 93 82 88 89 Resp: 20 18 20 18 Temp: 98.4 ??F (36.9 ??C) 97.8 ??F (36.6 ??C) 97.7 ??F (36.5 ??C) SpO2: 100% 93% 99% 98% Weight: Height: Estimated body mass index is 27.96 kg/m?? as calculated from the following: Height as of this encounter: 1.702 m (5' 7). Weight as of this encounter: 81 kg (178 lb 8 oz). Gen: NAD HEENT: AT/NC, EOMI, oropharynx clear CV: RRR Pulm: Nonlabored respirations Abd: Soft, ND. No tenderness to palpation of the left flank region. MSK: WWP, no edema Neuro: Moving all extremities, no focal deficits Psych: Appropriate mood and affect Recent Labs: CBC: Recent Labs Component Name 03/03/25 0500 WBC 11.7* HGB 8.2* HCT 26.3* BMP: Recent Labs Component Name 03/03/25 0500 NA 138 CL 107 CO2 20* BUN 44* CREATININE 3.62* No results for input(s): PT, PTT, INR in the last 79585 hours. Imaging: OSH imaging reviewed Assessment and Plan: Marshall Espinal is a 64 year old male with PMHx of HTN, CKD, COPD, GERD hx of nephrolithiasis who presents from an OSH ([facility]) with concern for a splenic abscess. Imaging reviewed by the surgical team. Agree with IR that this is unlikely to represent an abscess.Differential include subacute hemorrhage or less likely cyst or infarct. Bacteremia likely a sequelae or mitral valve endocarditis from poor dentition. -no acute surgical intervention -ACS to sign off -please page with questions or concerns -no addition for any intervention on diverticulosis as this is not diverticulitis Staff: Vipul Choudhury MD General Surgery Resident, PGY-5 03/03/2025 5:12 PM [1] Past Medical History: Diagnosis Date CKD (chronic kidney disease) COPD (chronic obstructive pulmonary disease) (HCC) GERD (gastroesophageal reflux disease) HTN (hypertension) Nephrolithiasis Obstructive uropathy [2] Past Surgical History: Procedure Laterality Date CYSTOSCOPY cystoscopy with ureteral stent placement Retinal Detachment Repair Bilateral [3] No Known Allergies [4] amLODIPine (Norvasc) 5 MG tablet metoprolol succinate XL 24hr (Toprol XL) 25 MG tablet montelukast (Singulair) 10 MG tablet omeprazole (PriLOSEC) 40 MG capsule [5] Current Facility-Administered Medications Medication 0.9% NaCl injection 3 mL And 0.9% NaCl injection 1-10 mL amLODIPine (Norvasc) tablet 5 mg ampicillin (Omnipen) 2,000 mg in NaCl IV 0.9 % 100 mL IVPB budesonide-formoterol (Symbicort) 160-4.5 MCG/ACT inhaler 2 puff And umeclidinium (Incruse Ellipta) 62.5 MCG/ACT inhaler 1 puff cefTRIAXone (Rocephin) syringe 2,000 mg dextrose IV 12.5 g Or dextrose IV 25 g Or glucagon (Glucagen) injection 1 mg fluticasone propionate (Flonase) nasal spray 2 spray glucose (Diabetic Use) oral gel heparin injection 5,000 Units metoprolol succinate XL 24hr (Toprol XL) tablet 25 mg montelukast (Singulair) tablet 10 mg pantoprazole EC (Protonix) tablet 40 mg polyethylene glycol 3350 (Miralax) packet 17 g senna (Senokot) tablet 8.6 mg [6] Social History Tobacco Use Smoking status: Former Current packs/day: 0.00 Types: Cigarettes Quit date: 02/1971 Years since quittin.0 Smokeless tobacco: Never Vaping Use Vaping status: Never Used Substance Use Topics Alcohol use: Not Currently Alcohol/week: 2.0 - 3.0 standard drinks of alcohol Types: 2 - 3 Alcoholic drink(s) per week Comment: last drink was roughly 6 months ago Drug use: Never [7] Family History Problem Relation Name Age of Onset COPD - Chronic Obstructive Pulmonary Disease Mother Renal Disease Father Cosigned by Rahul Matthew MD at 03/04/2025 7:33 AM CDT * Joey Farrar PA-C - 03/03/2025 3:15 PM CDTAssociated Order(s): IP CONSULT TO CARD SURGERY - THORACIC TEAM CARDIAC SURGERY Consult H&P Patient Name: Marshall Espinal Jr. 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 Patient developed fever/chills, left sided flank pain - CT abdomen/pelvix with concern for splenic abscess, BCx + who is being evaluated for E. Faecalis - echo w/ MV vegetation 1x1.2cm w/ mild MR - transfer to [facility]. Patient is now afebrile, WBC stable at 11, Cr. Elevated at 3 (unclear baseline). Cardiology consulted for SINTIA. 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 Yes Patient Active Problem List Diagnosis Date Noted Bacteremia 03/03/2025 Priority: Not Prioritized Mitral valve vegetation (HCC) 03/03/2025 Priority: Not Prioritized COPD (chronic obstructive pulmonary disease) (HCC) 03/03/2025 Priority: Not Prioritized Endocarditis, suspected 03/03/2025 Priority: Not Prioritized Diverticulosis 03/02/2025 Priority: Not Prioritized HTN (hypertension) 03/01/2025 Priority: Not Prioritized Abscess of spleen 02/28/2025 Priority: Not Prioritized Past Medical History[1] Past Surgical History[2] Medications[3] Allergies[4] Social History Tobacco Use Smoking status: Former Current packs/day: 0.00 Types: Cigarettes Quit date: 02/1971 Years since quittin.0 Smokeless tobacco: Never Substance Use Topics Alcohol use: Not Currently Alcohol/week: 2.0 - 3.0 standard drinks of alcohol Types: 2 - 3 Alcoholic drink(s) per week Comment: last drink was roughly 6 months ago Family History[5] Review of Systems Some vision and hearing loss, prior smoker, prior drinker, back and neck pain Negative cardiac or neuro disease Objective: BP 118/78 (BP Location: Right arm, Patient Position: Lying) Pulse 89 Temp 97.7 ??F (36.5 ??C) (Oral) Resp 18 Ht 1.702 m (5' 7) Wt 81 kg (178 lb 8 oz) SpO2 98% General appearance: alert, cooperative, no distress Lungs: breath sounds normal and symmetric; no rales or wheezes Heart: regular rhythm, normal S1 and S2, without murmurs, gallops or rubs Abdomen: soft without mass, non-tender, with normal bowel sounds Extremities: no clubbing, cyanosis or edema Data ReviewCBC: Recent Labs Component Name 03/03/25 05003/02/25 0534 WBC 11.7* 11.4* HGB 8.2* 8.4* HCT 26.3* 26.6* PLTCOUNT 412 410 BMP: Recent Labs Component Name 03/03/25 05003/02/25 0534 POTASSIUM 4.0 4.2 CO2 20* 20* BUN 44* 50* CREATININE 3.62* 3.45* GLUCOSE 103* 85 CALCIUM 9.1 9.0 Coagulation: No results for input(s): PT, INR in the last 00887 hours. Hepatic function: Recent Labs Component Name 03/03/25 05003/02/25 0534 ALKPHOS 212* 218* ALT <5* 13 AST 11 14 TSH: No results for input(s): TSH in the last 59928 hours. Cardiac markers: No results for input(s): CK, CKTOTAL, CKMB, CKMBUL, CKMBNGML, TROPONIN, TROPONINI, TROPONINT in the last 11975 hours. ABGs: No results for input(s): FIO2, PH, PCO2, HCO3, BE, PO2, O2SAT, PHART, LXR4SXA, PO2ART, BEART, UJH8VGB, Q2ADJNKZ in the last 56008 hours. ECHO: Summary * The left ventricle is normal in size, with normal systolic function and an estimated ejection fraction of 64 % by biplane method of disks. Left ventricular wall motion is normal. * The left ventricular diastolic function is normal. * The mitral valve is displaying restricted posterior leaflet motion with calcification. There is an echodensity 10 mm x 12 mm attached to the anterior mitral leaflet, possible differential includes vegetation, torn chordae. Need to correlate clinically and SINTIA if clinical suspicion of endocarditis. * There is mild tricuspid valve regurgitation. * There is mild mitral valve regurgitation. * The pulmonary artery systolic pressure is normal, 27 mmHg. Cath Performed: has not had Panorex - pending - very poor dentition Assessment and Plan: DIAGNOSIS: Patient is a 64 year old male with past medical history for HTN, CKD w/ hx of nephrolithiasis and GERD who presented from OSH for surgical evaluation of his mitral valve endocarditis. Echo w/ MV vegetation 1x1.2cm w/ mild MR - transfer to [facility]. Patient is now afebrile, WBC stable at 11, Cr. Elevated at 3 (unclear baseline). Cardiology consulted for SINTIA. Surgeon Staffed: Maniar Pending SINTIA - will help develop surgical plan. Follow Panorex and need for teeth extraction prior to surgery if recommend. May benefit from nephrology consult and renal optimization - high likelihoodof dialysis if does require surgical intervention. Antibiotics per ID. Follow ACS recommendation for splenic abscess Joey Farrar PA-C 03/03/2025 3:15 PM [1] Past Medical History: Diagnosis Date CKD (chronic kidney disease) COPD (chronic obstructive pulmonary disease) (HCC) GERD (gastroesophageal reflux disease) HTN (hypertension) Nephrolithiasis Obstructive uropathy [2] Past Surgical History: Procedure Laterality Date CYSTOSCOPY cystoscopy with ureteral stent placement Retinal Detachment Repair Bilateral [3] Medications Prior to Admission Medication Sig Dispense Refill amLODIPine (Norvasc) 5 MG tablet Take 1 (one) tablet by mouth once daily metoprolol succinate XL 24hr (Toprol XL) 25 MG tablet Take 1 (one) tablet by mouth once daily montelukast (Singulair) 10 MG tablet Take 1 (one) tablet by mouth at bedtime omeprazole (PriLOSEC) 40 MG capsule Take 1 (one) capsule by mouth daily before breakfast [4] No Known Allergies [5] Family History Problem Relation Name Age of Onset COPD - Chronic Obstructive Pulmonary Disease Mother Renal Disease Father Cosigned by Basilio Quinonez MD at 03/04/2025 1:40 AM CDT * Olga Caputo - 03/03/2025 9:35 AM CDTAssociated Order(s): IP CONSULT TO INFECTIOUS DISEASES [facility] Infectious Diseases Consultation Patient Name: Marshall Espinal Jr. 1960 Room: [facility] Date of Admission: 03/01/2025 Date of Service: 03/03/2025 Primary Care Physician: Provider Unknown Attending Physician: Pramod Torres DO Reason for Infectious Disease Consultation Possible bacteremia vs contaminant, unknown source History of Present Illness HPI: Marshall Espinal Jr. is a 64 year old white male with PMH of HTN, CKD, COPD, hx of nephrolithiasis who presents from an OSH ([facility]) for a splenic abscess. Before presenting to OSH, patient had been experiencing L-sided pain for 2 weeks. Also having fevers intermittently (D123-500 ??F, was on and off since 02/24/25). CT Abd/Pelvis 02/28 notable for New 8.1 x 5.2 x 5.1 cm relatively low-attentuation likely complex cystic lesion in the inferior spleen. This has developed since 12/05/2024 arguing against neoplasm and favring either subacute hematoma orabscess in the appropriate clinical setting and moderate diverticulosis w/o evidence of diverticulitis. Patient reports no prior history of diverticulitis. Patient denied any issues with trauma tohis left side with respect to the splenic abscess, and he did not notice any new changes to his bowel habits or endorsed abdominal pain with respect to the diverticulitis. Per IR, splenic fluid collection with low suspicion for abscess (more likely either hematoma vs cyst) based on imaging appearance and no plans to intervene. BC revealing 1/2 cultures positive for GPC at OSH. Transferred to [facility] 03/01 for further evaluation. VSS on admission. Labs notable for negative Mononucleosis screen and MRSA PCR. Echo 03/02 demonstrating an echodensity 10 mm x 12 mm attached to the anterior mitral leaflet, possible differential includes vegetation, torn chordae. Repeat blood cultures here 1/2 positivefor E Faecalis. Patient reports stable L-sided abdominal/back discomfort (4/10 pain). Denies fever,chills, n/v, dysuria, dyschezia. Complains of headache. Medical History Past Medical History[1] Surgical History Past Surgical History[2] Social History Smoking: Denies Alcohol: Quit 4 months ago. Before, was a heavy drinker Illicit drugs/IV drug use: Denies history Marital status: Children: 6 Living situation: Lives with Pets: 1 dog. 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 Family History Family History[3] I have confirmed the past medical, surgical, family and social history. Review of Systems Review of Systems Constitutional: Positive for fever. Negative for chills. Respiratory: Negative for shortness of breath. Cardiovascular: Negative for chest pain and palpitations. Gastrointestinal: Positive for abdominal pain. Negative for constipation, diarrhea, nausea and vomiting. Genitourinary: Negative for dysuria. Musculoskeletal: Negative for myalgias. Neurological: Positive for headaches. Allergies Allergies[4] Antimicrobial History Current Antibiotics Ceftriaxone 03/03 - present Vancomycin 03/01 - present Prior Antibiotics At [facility] Zosyn 03/02 - 03/03 Prior Antibiotics at OSH Home Medications Prior to Admission medications Medication Sig Start Date End Date Taking? Authorizing Provider amLODIPine (Norvasc) 5 MG tablet Take 1 (one) tablet by mouth once daily Yes Provider, MD Jeanne metoprolol succinate XL 24hr (Toprol XL) 25 MG tablet Take 1 (one) tablet by mouth once daily Yes Provider, Historical, montelukast (Singulair) 10 MG tablet Take 1 (one) tablet by mouth at bedtime Yes Provider, Historical, omeprazole (PriLOSEC) 40 MG capsule Take 1 (one) capsule by mouth daily before breakfast Yes Provider, Historical, Inpatient Medications Medications[5] Medications[6] Objective Vitals BP 118/78 (BP Location: Right arm, Patient Position: Lying) Pulse 89 Temp 97.7 ??F (36.5 ??C) (Oral) Resp 18 Ht 1.702 m (5' 7) Wt 81 kg (178 lb 8 oz) SpO2 98% Temp (24hrs), Av.6 ??F (36.4 ??C), Min:96.3 ??F (35.7 ??C), Max:98.4 ??F (36.9 ??C) Physical Exam Constitutional: Alert, cooperative, no distress Head, Ears, Nose: Normocephalic, atraumatic. External ears, nose normal Eyes: Conjunctivae/corneas clear. No scleral icterus. Neck: Supple, no meningeal signs Oral: Dentition poor, no thrush Cardiovascular: S1, S2 normal. No murmurs, rubs, or gallops. Respiratory: Good air entry, clear to auscultation bilaterally without rales, rhonchi, or wheezes. GI: Soft,; bowel sounds normal. No peritoneal signs. Mild TTP in the L flank region Musculoskeletal: Extremities normal, atraumatic, no cyanosis or edema Skin: No rashes Hem/Lymphatic: No palpable cervical or supraclavicular nodes Psych: Normal mood and affect. Neurologic: Awake, alert, oriented. No gross abnormality Lines: PIV Lab Review ID LABS - Mononucleosis negative 03/02 CBC: Recent Labs Component Name 03/03/25 0500 03/02/25 0534 WBC 11.7* 11.4* RBC 3.05* 3.06* HGB 8.2* 8.4* HCT 26.3* 26.6* MCV 86.2 86.9 BMP: Recent Labs Component Name 03/03/25 0500 03/02/25 0534 NA 138 137 CL 107 109* CO2 20* 20* BUN 44* 50* CREATININE 3.62* 3.45* ALB 2.6* 2.6* PROT 7.2 7.6 estimated creatinine clearance is 21 mL/min (A) (by C-G formula based on SCr of 3.62 mg/dL (H)). LFTs: Recent Labs Component Name 03/03/25 0500 03/02/25 0534 ALKPHOS 212* 218* ALT <5* 13 AST 11 14 Coagulation: No results for input(s): PT, INR, PTT in the last 75225 hours. Microbiology, Imaging and other diagnostic tests MICROBIOLOGY: Blood culture: 03/02 --> positive for E Faecalis 07/21. Urine culture: Sputum Culture: Other Serologies: MRSA nares negative 03/02 HISTOPATHOLOGY: None at this admission IMAGING & PROCEDURES: I have independently reviewed all pertinent images. Reports in chart. CT from [facility] OSH (02/28/25): New 8.1 x 5.2 x 5.1 cm relatively low-attentuation likely complex cystic lesion in the inferior spleen. This has developed since 12/05/2024 arguing against neoplasm and favring either subacute hematoma or abscess in the appropriate clinical setting. Moderate diverticulosis without evidence of diverticulitis. Moderate bilateral fat-containing inguinal hernia. TTE 03/02 The left ventricle is normal in size, with normal systolic function and an estimated ejection fraction of 64 % by biplane method of disks. Left ventricular wall motion is normal. * The left ventricular diastolic function is normal. * The mitral valve is displaying restricted posterior leaflet motion with calcification. There is an echodensity 10 mm x 12 mm attached to the anterior mitral leaflet, possible differential includes vegetation, torn chordae. Need to correlate clinically and SINTIA if clinical suspicion of endocarditis. * There is mild tricuspid valve regurgitation. * There is mild mitral valve regurgitation. * The pulmonary artery systolic pressure is normal, 27 mmHg. Assessment and Recommendations #Splenic Abscess #Concern for MV Infective Endocarditis #E Faecalis Bacteremia - CT Abd/Pelvis, OSH (02/28/25): New 8.1 x 5.2 x 5.1 cm relatively low- attentuation likely complex cystic lesion in the inferior spleen. This has developed since 12/05/2024 arguing against neoplasm and favring either subacute hematoma or abscess in the appropriate clinical setting. - Per IR, splenic fluid collection with low suspicion of abscess based on imaging appearance. Recommend conservative management - Blood cultures from OSH revealed 1/2 cultures positive stain for gram positive cocci. Repeat blood cultures collected here 1/2 positive for E Faecalis - Echo 03/02 with an an echodensity 10 mm x 12 mm attached to the anterior mitral leaflet, possible differential includes vegetation, torn chordae. Pending SINTIA #Diverticulosis - CT Abd/Pelvis, OSH (02/28/25): Moderate diverticulosis without evidence of diverticulitis. Moderate bilateral fat-containing inguinal hernia. - Pt will L-sided abdominal tenderness for the past 2 weeks. Stable and 4/10 pain. Per pt, no hx ofdiverticulosis and no change in bowel movements. #Poor dentition - Per pt, was supposed to see a dentist for extraction but unable to make 02/27 apt bc of this admission. Poor dentition on exam. Pending Panorex Renal Function: estimated creatinine clearance is 21 mL/min (A) (by C-G formula based on SCr of 3.62 mg/dL (H)). Allergies: Allergies[7] Plan/Recommendations - Can switch to ampicillin and Ceftriaxone. Will await susceptibilities of the E Faecalis to ampicillin. - Will follow blood cultures - Will follow SINTIA result - Will follow Panorex -Recommend CTS consult due to concern for MV endocarditis - Recommend ACS consult for evaluation splenic abscess and diverticulosis -As part of routine screening, please obtain HIV 4th generation screen and HCV antibody with reflexto HCV RNA quantitative (universally recommended per CDC guidelines) Check CBC with auto diff and CMP at least weekly while on IV antibiotics Thank you for allowing us to participate in the care of this patient. We will continue to follow and monitor with you closely. Patient seen, examined, and case/plan were discussed with my attending physician, . Case was discussed with primary team. Olga Caputo MS4 Infectious Disease [facility] [employer] Pager: [phone] ID Clinic [1] Past Medical History: Diagnosis Date CKD (chronic kidney disease) COPD (chronic obstructive pulmonary disease) (HCC) GERD (gastroesophageal reflux disease) HTN (hypertension) Nephrolithiasis Obstructive uropathy [2] Past Surgical History: Procedure Laterality Date CYSTOSCOPY cystoscopy with ureteral stent placement Retinal Detachment Repair Bilateral [3] Family History Problem Relation Name Age of Onset COPD - Chronic Obstructive Pulmonary Disease Mother Renal Disease Father [4] No Known Allergies [5] 0.9% NaCl 3 mL Intracatheter q8h amLODIPine 5 mg Oral QDAY budesonide-formoterol 2 puff Inhalation BID And umeclidinium 1 puff Inhalation QDAY cefTRIAXone 2 g Intravenous q24h metoprolol succinate XL 24hr 25 mg Oral AT BEDTIME montelukast 10 mg Oral AT BEDTIME pantoprazole EC 40 mg Oral QDAY polyethylene glycol 3350 17 g Oral QDAY senna 8.6 mg Oral QDAY vancomycin (VANCOCIN) IV dose per pharmacy Does not apply DIRECTED [6] [7] No Known Allergies Cosigned by Rigo Ortiz MD at 03/03/2025 5:53 PM CDT Associated attestation - Rigo Ortiz MD - 03/03/2025 5:53 PM CDT Infectious Diseases Attending Attestation For this patient encounter, IRigo MD, in collaboration with Olga Caputo have reviewed their work records and practice regarding quality and appropriateness of professional services provided. I discussed this patient with Olga Caputo and reviewed their documentation and agree with their history, physical examination findings, assessment, and plan of care. Additionally, I reviewed labwork, relevant imaging, and pertinent history. I agree with the assessment and plan as detailed in their note. Briefly: Marshall Espinal Jr. is a 64 year old patient with a past medical history significant for essentialhypertension, CKD, COPD, GERD, nephrolithiasis, who is currently admitted for Enterococcus faecalisbacteremia and MV infective endocarditis. Assessment Enterococcus faecalis bacteremia Concern for cocopah mitral valve infective endocarditis Concern for splenic abscess Unclear source of bacteremia Abnormal findings in CT from OSH evaluated by surgery and IR reported that unlikely represent abscess Unlikely oral source; portals of entry include gastrointestinal tract, urinary tract, intravascularcatheters, and wounds Poor dentition Will need dental consult Recommendations Stop Zosyn and vancomycin Start ampicillin 2 g IV every 8 hours (renal dose) and ceftriaxone 2 g IV every 12 hours Obtain repeat blood cultures tomorrow Follow SINTIA Follow Panorex Follow CT surgery recommendations General surgery consult to assess splenic abscess and diverticulosis Please see Olga Caputo note for full details. I have spent 60 minutes with the patient and/or guardian ([id number]) or on the patient???s floor/unit, of which more than 50% of the time was spent in counseling and/or coordination of care. Rigo Ortiz MD Infectious Diseases Attending [facility] * Patricia Donis MD - 03/02/2025 9:40 AM CDTAssociated Order(s): IP CONSULT TO INTERVENTIONAL RADIOLOGY Vascular & Interventional Radiology New Inpatient Consult Patient: Marshall Espinal Age: [age] year old Date of : 1960 Date of Admission: 03/01/2025 Date: 03/02/2025 Subjective: Referring physician: FAN SANCHEZ Reason for consult: splenic abscess HPI: 64 year old male 64 year old male with PMHx of HTN, CKD, COPD, hx of nephrolithiasis who presents from an OSH ([facility]) for a splenic abscess. CT from OSH OSH (02/28/25): New 8.1 x 5.2 x 5.1 cm relatively low-attentuation likely complex cystic lesion in the inferior spleen. This has developed since 12/05/2024 arguing against neoplasm and favring either subacute hematoma or abscess in the appropriate clinical setting. Past Medical History[1] Past Surgical History[2] Allergies[3] Social History Tobacco Use Smoking status: Former Current packs/day: 0.00 Types: Cigarettes Quit date: 02/1971 Years since quittin.0 Smokeless tobacco: Never Substance Use Topics Alcohol use: Not Currently Alcohol/week: 2.0 - 3.0 standard drinks of alcohol Types: 2 - 3 Alcoholic drink(s) per week Comment: last drink was roughly 6 months ago Family History[4] Pertinent aspects of the patient's past medical, surgical, family, and social history are mentionedin the HPI above. Remaining PSFH was also reviewed and is not pertinent to the presenting problem. Medications: Scheduled: Medications[5] PRN: Medications[6] Infusions: Medications[7] Objective: Physical examination: BP 119/76 Pulse 92 Temp 97.1 ??F (36.2 ??C) (Oral) Resp 18 Ht 1.702 m (5' 7) Wt 81 kg (178 lb 8 oz) SpO2 100% Estimated body mass index is 27.96 kg/m?? as calculated from the following: Height as of this encounter: 1.702 m (5' 7). Weight as of this encounter: 81 kg (178 lb 8 oz). General: no acute distress HEENT: atraumatic Lungs: normal respiratory effort, no accessory muscle use Cardiovascular: regular rate Abdomen: soft, nondistended, no abd tenderness Extremities: warm, no pitting edema Psychiatric: AOx 3, appropriate mood and affect Laboratory findings: Recent Labs Component Name 03/02/25 0534 WBC 11.4* HGB 8.4* HCT 26.6* PLTCOUNT 410 No results for input(s): INR in the last 81292 hours. Recent Labs Component Name 03/02/25 0534 NA 137 GLUCOSE 85 CREATININE 3.45* EGFR 19* Recent Labs Component Name 03/02/25 0534 ALB 2.6* TBILI 0.5 ALT 13 AST 14 ALKPHOS 218* Imaging: Relevant imaging studies were personally reviewed by myself and the IR attending, Dr. Gupta. No results found. Recommendations: 64 year old male with PMHx of HTN, CKD, COPD, hx of nephrolithiasis who presents from an OSH ([facility]) for a splenic abscess. Referred to [facility] for splenic abscess. Reviewed labs, imaging and recent notes. Given no fever, hemodynamic stability, mild wbc elevation,it is unlikely that patient's infection is 2/2 to a splenic abscess. Recommend further infectious work up. No acute intervention from IR standpoint at the time. The IR attending, Dr. Gupta, is in agreement with the above recommendations. [1] Past Medical History: Diagnosis Date CKD (chronic kidney disease) COPD (chronic obstructive pulmonary disease) (HCC) GERD (gastroesophageal reflux disease) HTN (hypertension) Nephrolithiasis Obstructive uropathy [2] Past Surgical History: Procedure Laterality Date CYSTOSCOPY cystoscopy with ureteral stent placement Retinal Detachment Repair Bilateral [3] No Known Allergies [4] Family History Problem Relation Name Age of Onset COPD - Chronic Obstructive Pulmonary Disease Mother Renal Disease Father [5] 0.9% NaCl 3 mL Intracatheter q8h budesonide-formoterol 2 puff Inhalation BID And umeclidinium 1 puff Inhalation QDAY metoprolol succinate XL 24hr 25 mg Oral AT BEDTIME montelukast 10 mg Oral AT BEDTIME pantoprazole EC 40 mg Oral QDAY piperacillin-tazobactam 4.5 g Intravenous q8h polyethylene glycol 3350 17 g Oral QDAY senna 8.6 mg Oral QDAY vancomycin (VANCOCIN) IV dose per pharmacy Does not apply DIRECTED [6] SALINE LOCK, INSERT AND MAINTAIN AND 0.9% NaCl AND 0.9% NaCl dextrose IV for hypoglycemia OR dextrose IV for hypoglycemia OR glucagon fluticasone propionate glucose (Diabetic Use) gel [7] Cosigned by Camille Gupta DO at 03/02/2025 1:12 PM CDT Associated attestation - Camille Gupta DO - 03/02/2025 1:12 PM CDT Attending Physician Attestation: Date of Service: 03/02/2025 For this patient encounter, I have reviewed the resident's note. I have personally reviewed the patient's labs, imaging, medications, and allergies. I agree with the history, assessment, and plan. CT reviewed by myself and Dr. Fuentes. Splenic fluid collection with low suspicion of abscess based on imaging appearance. Given inherent elevated risk of splenic drainage, recommend conservative management at this time. Of note, given mild perinephric stranding on CT, recommend sending Ucx for possible source of infection. MRI w contrast can be obtained for further evaluation of splenic fluid collection if pt does not clinically improve w medical management. Camille Gupta DO Arc Furnace Operator Vascular & Interventional Radiology 03/02/2025 1:04 PM documented in this encounter OR Notes * Brief Op Note - Mariya Botello PA-C - 03/15/2025 4:56 PM CDT Brief Op Note Procedure: mediastinal exploration d/t increased chest tube output Patient Name: Marshall Espinal Jr. Date of Service: 03/15/2025 Pre-Op Diagnosis: mitral valve regurgitation Post-Op Diagnosis: same as above Surgeons and Role: * Rahul Hernandez MD - Primary * Pratik Vizcarra MD - Resident - Assisting Gristmill Operator(s): Physician Gristmill Operator: Mariya Botello PA-C Registered Nurse Consulting Sales Executive: Neftaly Ramsey RN First Assistant: Annalise Castellanos APRN-GREENS PLANTER Anesthesia Type: general ETT Complications: none Findings: no major bleeding found; small arterial bleeders along the anterior periosteum/intercostal space EBL: cell saver used Urine Output : per epic IV Fluid Intake: per anesthesia Drains: Y Chest Tube 1 and 2 Posterior Mediastinal 32 FR Anterior Mediastinal 28 FR (Active) Dressing Type 1 Gauze 03/15/25 1529 Negative Pressure Wound Therapy Medial Chest (Active) Specimen(s): ID Type Source Tests Collected by Time Destination A : Anterior leaflet of mitral valve Resection without Tumor Heart Valve PATHOLOGY TISSUE Rahul Hernandez MD 03/15/2025 1353 Implant(s): Implant Name Type Inv. Item Serial No. Funeral Director Lot No. [id number] No. Used Action Ndl Sut 3 Blnt Cut Cbl Strl Spnl Ss Ndl Sut 3 Blnt Cut Cbl Strl Spnl Ss [employer] [id number] N/A1 Implanted Valve Mtrl 31Mm Resilia - [id number] Valve Mtrl 31Mm Resilia [id number] PlanStanciMiArch N/A 1Implanted Ndl Sut 3 Blnt Cut Cbl Strl Spnl Ss Ndl Sut 3 Blnt Cut Cbl Strl Spnl Ss [employer] N/A 1 Implanted Plate Bone H 6 Hl Nonster Lf Plate Bone H 6 Hl Nonster Lf Alli Biomet N/A 2 Implanted Plate 6 Hl O Cncv Bone Lf Nonster Plate 6 Hl O Cncv Bone Lf Nonster Alli Biomet N/A 1 Implanted Screw 14Mm Lck Nonster Bone Lf Screw 14Mm Lck Nonster Bone Lf Alli Biomet N/A 6 Implanted Screw 16Mm Lck Nonster Bone Lf Screw 16Mm Lck Nonster Bone Lf Alli Biomet N/A 6 Implanted Screw 18Mm Lck Nonster Bone Lf Screw 18Mm Lck Nonster Bone Lf Alli Biomet N/A 6 Implanted Mariya Botello PA-C Cosigned by Rahul Hernandez MD at 03/16/2025 5:29 PM CDT * Operative - Rahul Hernandez MD - 03/15/2025 3:45 PM CDT DATE OF PROCEDURE: 03/15/25 PREOPERATIVE DIAGNOSIS: Mitral valve endocarditis PREOPERATIVE DIAGNOSIS: Mitral valve endocarditis OPERATIVE PROCEDURE: Mitral valve replacement using 31mm Mitris bioprosthetic mitral valve Epiaortic ultrasound of the ascending aorta Sternal Plating SURGEON: Rahul Hernandez MD. DIRECTOR OF MECHANICAL ENGINEERING: Mariya Botello PA-C BRIEF HISTORY: 65 year old with mitral valve endocarditis, severe eccentric MR. Taken to the OR formitral valve replacement. FINDINGS: The ascending aorta was free of disease. The mitral valve had a large 2cm vegetation on the edge of the anterior leaflet. Preop SINTIA with normal LVEF. Post op SINTIA with well seated 31 Mitris bioprosthetic MVR, no paravalvular leak, mean gradient of 1. Normal biventricular function post op. OPERATIVE DETAILS: A cardiac high school assistant football coach was used for the entirety of the case and participated in all portions giventhat their was no qualified resident available to assist. With the patient under adequate general endotracheal anesthesia, a sternotomy incision made. Pericardium opened. Epiaortic ultrasound was performed of the ascending aorta and showed no intraluminal atheromatous disease. Heparin administered. A cannula placed in the ascending aorta. Venous cannula were placed in the SVC and IVC. Antegrade cannula placed in the ascending aorta and retrograde cannula placed in the coronary sinus. The patient placed on cardiopulmonary bypass and cooled to 34C. Waterson's groove was dissected. Left atrial vent inserted through the right superior pulmonary vein. Crossclamp applied, antegrade followed by retrograde cold blood cardioplegia administered along with topical hypothermia. Good cardiac standstill was achieved. Myocardial temperature probe inserted intothe interventricular septum to ensure a myocardial temperature below 15C throughout the case. Cardioplegia was subsequently given at least every 15-20 minutes for the remainder of crossclamp. A left atriotomy was performed and the mitral valve was exposed. Their was a 2cm vegetation on the anterior leaflet of the valve. The anterior leaflet was excised and the chordae attached to the posterior leaflet were spared. 2-0 Ethibond horizontal mattress sutures were placed around the mitral annulus in an atrial to ventricular fashion, coming through the base of the posterior leaflet along the posterior annulus. The valve was then sized and the sutures were placed through the sewing ring ofa 31 Mitris bioprosthetic mitral valve. The sutures were secured with a Cor-knot device. The left atrial vent was then placed across the bioprosthetic mitral valve. The left atria was then closed with a pledgeted 4-0 Prolene suture after deairing. The patient was placed in steep Trendelenberg position and the root and left ventricular vents wereplaced on high and the crossclamp was removed. The patient was allowed to eject. The left ventricular vent was clamped and removed. SINTIA examination demonstrated a well-functioning prosthetic valve, well-seated with no paravalvular leak. A single bipolar V wire was applied to the diaphragmatic surface of the right ventricle. The retrograde cannula was removed and an A wire was applied to the atrial puncture site. A second A wire was applied to the right atrial free wall. The chest wall was checked for hemostasis and ventilation was reinstated. When the heart was de-aired, the root vent was christ amaya. With the patient warm, with satisfactory underlying rhythm, good electrolytes and adequate ventilation, patient was weaned from cardiopulmonary bypass without difficulty on the first attempt. Cannulas removed. Protamine administered. Hemostasis was excellent. A 32 and 28Fr anterior and posterior mediastinal chest tube were placed. Bilateral pectoral myofascial flaps were raised by developing the plane between the anterior table and bilateral pectoral muscles out to the sternal edges with care taken to preserve the pectoral perforators supplying the myofascial flaps. The sternal thickness was then measured. The sternum was re-approximated with 3 sternal cables and fixated using 3 sternal plates. The wound was copiously irrig ated with antibiotic saline. The myofascial flaps, soft tissue, and skin were closed in layers. Sterile dressings applied. Patient tolerated the procedure without complication. Noted at completion ofprocedure, sponge and instrument counts were correct. ESTIMATED BLOOD LOSS: Minimal, cell saver. Rahul Hernandez MD. * Brief Op Note - Annalise Castellanos APRN-CNP - 03/15/2025 3:15 PM CDT Brief Op Note Procedure: Mitral valve repair possible replacement Patient Name: Marshall Espinal Jr. Date of Service: 03/15/2025 Pre-Op Diagnosis: mitral valve regurgitation, endocarditis Post-Op Diagnosis: S/P mitral valve replacement with # 31 mm Mitris valve Surgeons and Role: * Rahul Hernandez MD - Primary * Pratik Vizcarra MD - Resident - Assisting Gristmill Operator(s): Physician Gristmill Operator: Mariya Botello PA-C Registered Nurse Consulting Sales Executive: Neftaly Ramsey RN First Assistant: Annalise Castellanos APRN-CNP Anesthesia Type: general ETT Complications: none Findings: vegetation on anterior leaflet, severe MR, EF 35 % EBL: minimal blood loss Urine Output : see EPIC IV Fluid Intake: see EPIC Drains: * No LDAs found * Specimen(s): ID Type Source Tests Collected by Time Destination A : Anterior leaflet of mitral valve Resection without Tumor Heart Valve PATHOLOGY TISSUE Rahul Hernandez MD 03/15/2025 1353 Implant(s): Implant Name Type Inv. Item Serial No. Funeral Director Lot No. [id number] No. Used Action Ndl Sut 3 Blnt Cut Cbl Strl Spnl Ss Ndl Sut 3 Blnt Cut Cbl Strl Spnl Ss [employer] [id number] N/A1 Implanted Valve Mtrl 31Mm Resilia - [id number] Valve Mtrl 31Mm Resilia [id number] [employer] N/A 1Implanted LANRE Marino Cosigned by Rahul Hernandez MD at 03/15/2025 5:09 PM CDT * OR PreOp - Ivone Aguilera APRN-CNP - 03/14/2025 3:43 PM CDT Cardiac Surgery H&P/PREOP CARDIAC SURGICAL CHECK LIST HPI: 64 year old male with past medical history for HTN, CKD w/ hx of nephrolithiasis and GERDwho presented from OSH for surgical evaluation of his mitral valve endocarditis. Patient developed fever/chills, left sided flank pain - CT abdomen/pelvix with concern for splenic abscess, BCx + who is being evaluated for E. Faecalis - echo w/ MV vegetation 1x1.2cm w/ mild MR - transfer to [facility]. Patient is now afebrile, WBC stable at 11, Cr. Elevated at 3 (unclear baseline). Cardiology consulted for SINTIA. Patient reports night sweats and fevers on and off for months, prompting him to stop drinking. He was drinking vodka every day prior to 6 months ago.He developed a kidney stone one month JIG FITTER, he had no prior knowledge of kidney issues prior to developing the kidney stone. 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 His left sided pain began shortly after that occurrence. Consent (ensure date and timed): media Planned Surgery: mitral valve replacement vs repair Is a vendor required: NO (vendors that require contact: [employer] for MAZE/ablation procedures, CUSOrep for mitral valve annular calcification, pacemaker reps, lead extraction rep, [employer]iomed for impella and atricure rep (cryo) for Maniar myxoma) Has the vendor been contacted: NO, document person spoken with and date, if initial contact is several days in advance, contact rep again to confirm. Implant: Mitirs bioprosthetic Conduit: n/a STS: Procedure Type: Isolated MVR Perioperative Outcome Estimate % Operative Mortality 8.84% Morbidity & Mortality 30.6% Stroke 1.8% Renal Failure 21.4% Reoperation 5.34% Prolonged Ventilation 18.7% Deep Sternal Wound Infection 0.089% Long Hospital Stay (>14 days) 26.4% Short Hospital Stay (<6 days)* 9.88% Full Code: Yes Type & Screen: yes, no antibodies U/A (has to be ordered for valve cases): negative CBC, BMP, PT/PTT, reviewed: Recent Labs Component Name 03/14/25 0521 03/13/25 0603 03/11/25 0606 WBC 10.9* 9.6 9.3 Recent Labs Component Name 03/14/25 0521 03/13/25 0603 03/11/25 0606 HGB 9.3* 8.7* 8.6* HCT 30.0* 27.7* 27.5* Recent Labs Component Name 03/14/25 0521 03/13/25 0603 03/11/25 0606 PLTCOUNT 440* 423* 486* Recent Labs Lab 03/14/25 0521 03/13/25 0603 03/11/25 0606 CREATININE 2.89* 2.78* 2.97* CXR: CT chest, no defibrilator CT chest reviewed: Significant calcium in ascending aorta or near anticipated cross clamp site? No Ascending aortic aneurysm 4.5mm or greater? No Carotid doppler show >70% stenosis: No, bilateral antegrade flow? Yes, Vein mapping show sizes 2.5mm or greater: n/a PFT's: n/a Panorex: lots of caries - numerous teeth removed on 03/09 TTE: Summary * The left ventricle is normal in size, with normal systolic function and an estimated ejection fraction of 64 % by biplane method of disks. Left ventricular wall motion is normal. * The left ventricular diastolic function is normal. * The mitral valve is displaying restricted posterior leaflet motion with calcification. There is an echodensity 10 mm x 12 mm attached to the anterior mitral leaflet, possible differential includes vegetation, torn chordae. Need to correlate clinically and SINTIA if clinical suspicion of endocarditis. * There is mild tricuspid valve regurgitation. * There is mild mitral valve regurgitation. * The pulmonary artery systolic pressure is normal, 27 mmHg. films viewable: Yes, if no - must be obtained SINTIA: Summary * There is a 1.16 cm x 0.78 cm mobile vegetation attached to the atrial surface of the anterior mitral valve leaflet tip (around the A2/A3 scallop tip). * There is moderate to severe mitral valve regurgitation with a very eccentric posterior jet that originates at the site of the vegetation. Mitral valve regurgitant volume is 30 ml regurgitant fraction is calculated 33%. 3-D ERO area is 0.36 cm2. Vena contracta width (2D) 0.42 cm. 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 * Agitated saline contrast study at rest and with Valsalva is negative for a shunt. * Normal left ventricular systolic function. Visually estimated LV EF is 55-60%. * Right ventricular systolic function is grossly normal. films viewable: Yes, if no - must be obtained Cardiac Cath: 40% narrowing in mid LAD. Overall, nonobstructive CAD. Left dominant circulation. films viewable: Yes, if no - must be obtained Bilateral UE B/P < 20 SBP difference and CABG patient: n/a Medications to be stopped: N/a Pain management: [facility] has requested that postoperative pain management be provided by a qualified anesthesia or pain management provider. Given the expected severity of postoperative pain associated with this procedure, advanced pain control techniques beyond the scope of routine surgical managementare medically necessary. Involvement of a provider with specialized expertise in regional anesthesia is expected to improve pain relief and reduce the risk of analgesic-related side effects. LANRE Ordaz 03/13/2025 Cosigned by Rahul Hernandez MD at 03/15/2025 11:09 AM CDT * OR PreOp - Joey Farrar PA-C - 03/13/2025 5:17 PM CDT Cardiac Surgery H&P/PREOP CARDIAC SURGICAL CHECK LIST HPI: 64 year old male with past medical history for HTN, CKD w/ hx of nephrolithiasis and GERDwho presented from OSH for surgical evaluation of his mitral valve endocarditis. Patient developed fever/chills, left sided flank pain - CT abdomen/pelvix with concern for splenic abscess, BCx + who is being evaluated for E. Faecalis - echo w/ MV vegetation 1x1.2cm w/ mild MR - transfer to [facility]. Patient is now afebrile, WBC stable at 11, Cr. Elevated at 3 (unclear baseline). Cardiology consulted for SINTIA. Patient reports night sweats and fevers on and off for months, prompting him to stop drinking. He was drinking vodka every day prior to 6 months ago.He developed a kidney stone one month JIG FITTER, he had no prior knowledge of kidney issues prior to developing the kidney stone. 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 His left sided pain began shortly after that occurrence. Consent (ensure date and timed): needs Planned Surgery: mitral valve replacement vs repair Is a vendor required: NO (vendors that require contact: [employer] for MAZE/ablation procedures, CUSOrep for mitral valve annular calcification, pacemaker reps, lead extraction rep, [employer]iomed for impella and atricure rep (cryo) for Maniar myxoma) Has the vendor been contacted: NO, document person spoken with and date, if initial contact is several days in advance, contact rep again to confirm. Implant: Mitirs bioprosthetic Conduit: n/a STS: Procedure Type: Isolated MVR Perioperative Outcome Estimate % Operative Mortality 8.84% Morbidity & Mortality 30.6% Stroke 1.8% Renal Failure 21.4% Reoperation 5.34% Prolonged Ventilation 18.7% Deep Sternal Wound Infection 0.089% Long Hospital Stay (>14 days) 26.4% Short Hospital Stay (<6 days)* 9.88% Full Code: Yes Type & Screen: yes, no antibodies - repeat ordered U/A (has to be ordered for valve cases): negative CBC, BMP, PT/PTT, reviewed: Recent Labs Component Name 03/13/25 0603 03/11/25 0606 03/10/25 0605 WBC 9.6 9.3 10.9* Recent Labs Component Name 03/13/25 0603 03/11/25 0606 03/10/25 0605 HGB 8.7* 8.6* 8.7* HCT 27.7* 27.5* 26.8* Recent Labs Component Name 03/13/25 0603 03/11/25 0606 03/10/25 0605 PLTCOUNT 423* 486* 502* Recent Labs Lab 03/13/25 0603 03/11/25 0606 03/10/25 0605 CREATININE 2.78* 2.97* 3.09* CXR: ordered, no defibrilator CT chest reviewed: Significant calcium in ascending aorta or near anticipated cross clamp site? No Ascending aortic aneurysm 4.5mm or greater? No Carotid doppler show >70% stenosis: No, bilateral antegrade flow? Yes, Vein mapping show sizes 2.5mm or greater: n/a PFT's: n/a Panorex: lots of caries - numerous teeth removed on 03/09 TTE: Summary * The left ventricle is normal in size, with normal systolic function and an estimated ejection fraction of 64 % by biplane method of disks. Left ventricular wall motion is normal. * The left ventricular diastolic function is normal. * The mitral valve is displaying restricted posterior leaflet motion with calcification. There is an echodensity 10 mm x 12 mm attached to the anterior mitral leaflet, possible differential includes vegetation, torn chordae. Need to correlate clinically and SINTIA if clinical suspicion of endocarditis. * There is mild tricuspid valve regurgitation. * There is mild mitral valve regurgitation. * The pulmonary artery systolic pressure is normal, 27 mmHg. films viewable: Yes, if no - must be obtained SINTIA: Summary * There is a 1.16 cm x 0.78 cm mobile vegetation attached to the atrial surface of the anterior mitral valve leaflet tip (around the A2/A3 scallop tip). * There is moderate to severe mitral valve regurgitation with a very eccentric posterior jet that originates at the site of the vegetation. Mitral valve regurgitant volume is 30 ml regurgitant fraction is calculated 33%. 3-D ERO area is 0.36 cm2. Vena contracta width (2D) 0.42 cm. 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 * Agitated saline contrast study at rest and with Valsalva is negative for a shunt. * Normal left ventricular systolic function. Visually estimated LV EF is 55-60%. * Right ventricular systolic function is grossly normal. films viewable: Yes, if no - must be obtained Cardiac Cath: 40% narrowing in mid LAD. Overall, nonobstructive CAD. Left dominant circulation. films viewable: Yes, if no - must be obtained Bilateral UE B/P < 20 SBP difference and CABG patient: n/a Medications to be stopped: N/a Pain management: [facility] has requested that postoperative pain management be provided by a qualified anesthesia or pain management provider. Given the expected severity of postoperative pain associated with this procedure, advanced pain control techniques beyond the scope of routine surgical managementare medically necessary. Involvement of a provider with specialized expertise in regional anesthesia is expected to improve pain relief and reduce the risk of analgesic-related side effects. reminder to place ip consult to pain management for zunilda-operative pain management Joey Farrar PA-C 03/13/2025 * Brief Op Note - Darlene Méndez MD - 03/10/2025 12:54 PM CDT Brief Op Note Procedure: Left Heart Cath Patient Name: Marshall Espinal Jr. 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] Post-Op Diagnosis: 40% mid LAD disease Surgeons and Role: * Selene Duran MD - Primary * Darlene Méndez MD - Fellow Gristmill Operator(s): * No surgical staff found * Anesthesia Type: Moderate sedation Complications: none Findings: as above EBL: minimal blood loss Urine Output : none IV Fluid Intake: none Drains: * No LDAs found * Specimen(s): * No specimens in log * Implant(s): * No implants in log * Darlene Méndez MD Cosigned by Selene Duran MD at 03/10/2025 6:47 PM CDT * Brief Op Note - Rosendo Varner DMD - 03/09/2025 6:24 PM CDT Operative Note Procedure: EXTRACTION DENTAL (MULTIPLE) Patient Name: Marshall Espinal Jr. Date of Service: 03/09/2025 Pre-Op Diagnosis: Infection [B99.9] Post-Op Diagnosis: Infection Surgeons and Role: * Rosendo Varner DMD - Primary Gristmill Operator(s): * No surgical staff found * Anesthesia Type: general ETT Complications: none Findings: Patient was brought into the operating room. Placed in supine position. General anesthesia administered. Draped in usual manner. Throat pack and bite block placed. Teeth #4,9,10,11,15,20,21,22,23 extracted with elevators and forceps. No complications. Sockets cleaned out and compressed. Bleeding minimal. Hemostasis evident. 3 carpules 2% Lidocaine with 1:100,000 epi (5.1 mL total) given locally. Two 2.0 chromic gut sutures placed one in the area of #9,10,11 and one in the area of #22,23. Teeth discarded in proper manner. Throat pack and bite block removed. Instrument counts were correct. Patient allowed to wake up, extubated and brought to recovery area. EBL: minimal blood loss Urine Output : None IV Fluid Intake: Per anesthesia notes Drains: None Specimen(s): * No specimens in log * Implant(s): * No implants in log * Rosendo Varner DMD documented in this encounter Miscellaneous Notes * Clinical References AVS - Sri Sandhu RD/ALVIN - 03/23/2025 1:08 PM CDT Images from the original note were not included. [id number] Eating Heart-Healthy Foods Eating has a big impact on your heart health. In fact, eating healthier can improve several of yourheart risks at once. For instance, it helps you manage weight, cholesterol, and blood pressure. Here are ideas to help you make heart- healthy changes without giving up all the foods and flavors you love. Getting started ? Talk with your healthcare provider about eating plans, such as the DASH or Mediterranean diet. You may also be referred to a dietitian. Ask a partner, family member, or friend to join you for mutual support. ? Change a few things at a time. Give yourself time to get used to a few eating changes before adding more. ? Work to create a tasty, healthy eating plan that you can stick to for the rest of your life. Goals for healthy eating Below are some tips to improve your eating habits: ? Limit saturated fats and trans fats. Saturated fats raise your levels of cholesterol, so keep these fats to a minimum. They are found in foods such as fatty meats, whole milk, cheese, and palm and coconut oils. Avoid trans fats because they lower good cholesterol as well as raise bad cholesterol.Trans fats are most often found in processed foods, such as pastries, cookies, pies, muffins, friedfoods, stick margarines, and shortening. ? Reduce how much sodium (salt) you have. Eating too much salt may increase your blood pressure. Limit your sodium intake to 2,300 milligrams (mg) per day (the amount in 1 teaspoon of salt), or less if your healthcare provider recommends it. Dining out less often and eating fewer processed foods are two great ways to decrease the amount of salt you consume. At home, flavor your foods with other spices and herbs instead of salt. ? Managing calories. A calorie is a unit of energy. Your body hayes calories for fuel, but if you eat more calories than your body hayes, the extras are stored as fat. Your healthcare provider or dietitian can help you create a diet plan to manage your calories. This will likely include eating healthier foods and getting regular exercise. To help you track your progress, keep a food diary to record what you eat and how often you exercise. Choose the right foods Aim to make these foods urbano of your diet. If you have diabetes, you may have different recommendations than what is listed here: ? Fruits and vegetables provide plenty of nutrients without a lot of calories. At meals, fill half your plate with these foods. Choose between fresh, frozen, canned, or dried fruits and vegetables without added sauces, salt, or sugars. Split the other half of your plate between whole grains and lean protein. ? Whole grains are high in fiber and rich in vitamins and nutrients. Good choices include whole-wheat bread, pasta, oats, and brown rice. Make at least half of your grains whole grains. ? Lean proteins give you nutrition with less fat. Good choices include fish, skinless chicken and turkey, and beans. Draining the fat from cooked ground meat is another way to reduce the amount of fat you eat. ? Low-fat and nonfat dairy provide nutrients without a lot of fat. Try low-fat or nonfat milk, cheese, or yogurt. ? Healthy fats can be good for you in small amounts. These are unsaturated fats, such as olive oil,avocado, nuts, and fish. Try to have at least 2 servings per week of fatty fish, such as salmon, sardines, mackerel, rainbow trout, and albacore tuna. These contain omega-3 fatty acids, which are good for your heart. Flaxseed and walnuts are other sources of heart-healthy fats. More on heart-healthy eating Read food labels Healthy eating starts at the grocery store. Be sure to pay attention to food labels on packaged foods. Look for products that are high in fiber and protein and low in saturated fat, added sugars, andsodium. Avoid products that contain trans fat. And pay close attention to serving size. For instance, if you plan to eat 2 servings, double all the numbers on the label. Prepare food right A vega part of healthy cooking is cutting down on added fat, sugar, and salt. Look on the Internet for lower-fat, lower-sodium recipes without a lot of added sugars. Also try these tips: ? Remove fat from meat and skin from poultry before cooking. ? Skim fat from the surface of soups and sauces. ? Broil, roast, boil, bake, steam, grill, or microwave food without added fats. ? Choose ingredients that spice up your food without adding calories, fat, sugar, or sodium. Try these items: horseradish, hot sauce, lemon zest and juice, garlic, onion, mustard, nonfat salad dressings, and vinegar. Small amounts of olive oil-based vinaigrettes are OK, too. For salt-free herbs andspices, try basil, cilantro, cinnamon, cumin, paprika, pepper, and tor. Last Reviewed Date: 2022 00:00:00 ?? [id number] [employer]. All rights reserved. This information is not intended as a substitute for professional medical care. Always follow your healthcare professional's instructions. documented in this encounter Plan of Treatment Upcoming Encounters Date Type Department Care Team (Late st Contact Info) Description 04/04/2025 11:00 AM CDT Office Visit [facility] - Cardiothoracic Surgery [address] [place] [address], [place] [address] Rahul Hernandez MD [address] [place] [address] [address] [place] [address] 04/20/2025 11:30 AM CDT Office Visit [facility] - Infectious Disease [address] [place] [address], [place] [address] Yesica Cabello PA-C [address] [place] [id number] 05/01/2025 9:00 AM CDT Appointment [facility] [address] [place] [address] Garcia Gil MD [address] [place] [phone] Pending Results Name Type Priority Associated Diagnoses Date /Time CULTURE AFB+SMEAR Microbiology STAT 03/15 5:06 PM CDT CULTURE FUNGUS OTHER+FUNGUS SMEAR Microbiology Routine 03/15/2025 5: 06 PM CDT EKG 12-Lead ECG Routine Mitral valve insufficiency, unspecified etiology 03/20/2025 11:59 AM CDT EKG 12-Lead ECG Routine Mitral valve insufficiency, unspecified etiology 03/20/2025 12:00 PM CDT Scheduled Orders Name Type Priority Associated Diagnoses Order Schedule EXTUBATION Respiratory Care Routine ONCE for 1 Occurrences starting 03/15/2025 until 03/15/2025 CBC W/ DIFFERENTIAL Lab Routine Mitral valve vegetation (HCC) Bacteremia Enterococcal bacteremia Once weekly for 5 Occurrences starting 03/21/2025 until 04/20/2026 COMPREHENSIVE METABOLIC PANEL Lab Routine Mitral valve vegetation (HCC) Bacteremia Enterococcal bacteremia Once weekly for 5 Occurrences starting 03/21/2025 until 04/20/2026 IR Central Line Removal Imaging Routine Bacteremia Enterococcal bacteremia Expected: 05/01/2025, Expires: 03/22/2026 XR Chest 2Vw Imaging Routine S/P MVR (mitral valve replacement) Expected: 04/04/2025, Expires: 03/22/2026 Scheduled Referrals Name Type Priority Associated Diagnoses Order Schedule AMB REFERRAL TO ANTICOAGULATION MONITORING Outpatient Referral Routine S/P MVR (mitral valve replacement) Ordered: 03/23/2025 Ref to Cardiology [facility] Outpatient Referral Routine S/P MVR (mitral valve replacement) Ordered: 03/23/2025 AMB REFERRAL TO HOME HEALTH CARE Outpatient Referral Routine Mitral valve insufficiency, unspecified etiology Ordered: 03/23/2025 documented as of this encounter Procedures Procedure Name Priority Date/Time Associated Diagnosis Comments CALCIUM IONIZED WHOLE BLOOD AM Draw 03/23/2025 12:54 AM CDT PT-INR AM Draw 03/23/2025 12:54 AM CDT COMPREHENSIVE METABOLIC PANEL AM Draw 03/23/2025 12:54 AM CDT PHOSPHORUS BLOOD Routine 03/23/2025 12:54 AM CDT MAGNESIUM BLOOD Routine 03/23/2025 12:54 AM CDT CBC W/O DIFFERENTIAL Routine 03/23/2025 12:53 AM CDT IR CENTRAL LINE INSERT TUNNEL Routine 03/22/2025 12:28 PM CDT Endocarditis, suspected CKD (chronic kidney disease) stage 5, GFR less than 15 ml/min ([facility]) XR CHEST 1VW PORTABLE Routine 03/22/2025 4:27 AM CDT Mitral valve insufficiency, unspecified etiology CALCIUM IONIZED WHOLE BLOOD AM Draw 03/22/2025 3:41 AM CDT PT-INR AM Draw 03/22/2025 3:41 AM CDT CBC W/O DIFFERENTIAL Routine 03/22/2025 3:41 AM CDT COMPREHENSIVE METABOLIC PANEL AM Draw 03/22/2025 3:41 AM CDT PHOSPHORUS BLOOD Routine 03/22/2025 3:41 AM CDT MAGNESIUM BLOOD Routine 03/22/2025 3:41 AM CDT CALCIUM IONIZED WHOLE BLOOD AM Draw 03/21/2025 4:35 AM CDT PT-INR AM Draw 03/21/2025 4:35 AM CDT CBC W/O DIFFERENTIAL Routine 03/21/2025 4:35 AM CDT COMPREHENSIVE METABOLIC PANEL AM Draw 03/21/2025 4:35 AM CDT PHOSPHORUS BLOOD Routine 03/21/2025 4:35 AM CDT MAGNESIUM BLOOD Routine 03/21/2025 4:35 AM CDT XR CHEST 1VW PORTABLE Routine 03/21/2025 4:29 AM CDT Chronic obstructive pulmonary disease, unspecified COPD type (HCC) EKG 12-LEAD Routine 03/20/2025 12:00 PM CDT Mitral valve insufficiency, unspecified etiology EKG 12-LEAD Routine 03/20/2025 11:59 AM CDT Mitral valve insufficiency, unspecified etiology EKG 12-LEAD Routine 03/20/2025 4:54 AM CDT Mitral valve insufficiency, unspecified etiology Chronic obstructive pulmonary disease, unspecified COPD type (HCC) CBC W/O DIFFERENTIAL Routine 03/20/2025 4:08 AM CDT XR CHEST 1VW PORTABLE Routine 03/20/2025 3:48 AM CDT Mitral valve insufficiency, unspecified etiology Chronic obstructive pulmonary disease, unspecified COPD type (HCC) CALCIUM IONIZED WHOLE BLOOD AM Draw 03/20/2025 3:29 AM CDT PT-INR AM Draw 03/20/2025 3:29 AM CDT CBC W/O DIFFERENTIAL Routine 03/20/2025 3:29 AM CDT COMPREHENSIVE METABOLIC PANEL AM Draw 03/20/2025 3:29 AM CDT PHOSPHORUS BLOOD Routine 03/20/2025 3:29 AM CDT MAGNESIUM BLOOD Routine 03/20/2025 3:29 AM CDT BASIC METABOLIC PANEL (CALCIUM TOTAL) Routine 03/19/2025 8:44 PM CDT EKG 12-LEAD Routine 03/19/2025 6:44 PM CDT Mitral valve insufficiency, unspecified etiology Chronic obstructive pulmonary disease, unspecified COPD type (HCC) ECHO COMPLETE W CONTRAST Timed 03/19/2025 10:47 AM CDT Mitral valve insufficiency, unspecified etiology GLUCOSE - POINT OF CARE Routine 03/19/2025 8:22 AM CDT EKG 12-LEAD Routine 03/19/2025 5:45 AM CDT Mitral valve insufficiency, unspecified etiology CALCIUM IONIZED WHOLE BLOOD AM Draw 03/19/2025 4:28 AM CDT PT-INR AM Draw 03/19/2025 4:28 AM CDT CBC W/O DIFFERENTIAL Routine 03/19/2025 4:28 AM CDT BASIC METABOLIC PANEL (CALCIUM TOTAL) STAT 03/19/2025 4:28 AM CDT PHOSPHORUS BLOOD Routine 03/19/2025 4:28 AM CDT HEPATIC FUNCTION PANEL Routine 4:28 AM CDT MAGNESIUM BLOOD Routine 03/19/2025 4:28 AM CDT XR CHEST 1VW PORTABLE Routine 03/19/2025 4:27 AM CDT Mitral valve insufficiency, unspecified etiology Chronic obstructive pulmonary disease, unspecified COPD type (HCC) XR CHEST 1VW PORTABLE STAT 03/18/2025 6:50 PM CDT Mitral valve vegetation (HCC) GLUCOSE - POINT OF CARE Routine 03/18/2025 5:26 PM CDT XR CHEST 1VW PORTABLE STAT 03/18/2025 2:11 PM CDT Mitral valve vegetation (HCC) GLUCOSE - POINT OF CARE Routine 03/18/2025 11:59 AM CDT GLUCOSE - POINT OF CARE Routine 03/18/2025 8:44 AM CDT XR CHEST 1VW PORTABLE Routine 03/18/2025 4:58 AM CDT Mitral valve vegetation (HCC) Chronic obstructive pulmonary disease, unspecified COPD type (HCC) CALCIUM IONIZED WHOLE BLOOD AM Draw 03/18/2025 4:19 AM CDT CBC W/O DIFFERENTIAL Routine 03/18/2025 4:19 AM CDT COMPREHENSIVE METABOLIC PANEL Routine 03/18/2025 4:19 AM CDT PHOSPHORUS BLOOD Routine 03/18/2025 4:19 AM CDT MAGNESIUM BLOOD Routine 03/18/2025 4:19 AM CDT GLUCOSE - POINT OF CARE Routine 03/17/2025 8:36 PM CDT GLUCOSE - POINT OF CARE Routine 03/17/2025 6:40 PM CDT GLUCOSE - POINT OF CARE Routine 03/17/2025 11:37 AM CDT GLUCOSE - POINT OF CARE Routine 03/17/2025 7:55 AM CDT CALCIUM IONIZED WHOLE BLOOD AM Draw 03/17/2025 4:21 AM CDT CBC W/O DIFFERENTIAL Routine 03/17/2025 4:21 AM CDT COMPREHENSIVE METABOLIC PANEL Routine 03/17/2025 4:21 AM CDT PHOSPHORUS BLOOD Routine 03/17/2025 4:21 AM CDT MAGNESIUM BLOOD Routine 03/17/2025 4:21 AM CDT XR CHEST 1VW PORTABLE Routine 03/17/2025 4:10 AM CDT Mitral valve insufficiency, unspecified etiology Chronic obstructive pulmonary disease, unspecified COPD type (HCC) TRANSFUSE RED BLOOD CELL LEUKOREDUCED UNIT(S) Routine 03/16/2025 6:11 PM CDT TYPE + SCREEN PANEL STAT 03/16/2025 5 :39 PM CDT GLUCOSE - POINT OF CARE Routine 03/16/2025 5:07 PM CDT CBC W/O DIFFERENTIAL Routine 03/16/2025 4:34 PM CDT BASIC METABOLIC PANEL (CALCIUM TOTAL) Routine 03/16/2025 4:34 PM CDT GLUCOSE - POINT OF CARE Routine 03/16/2025 11:38 AM CDT GLUCOSE - POINT OF CARE Routine 03/16/2025 9:10 AM CDT EKG 12-LEAD Routine 03/16/2025 8:52 AM CDT Endocarditis, 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) Bacteremia GLUCOSE - POINT OF CARE Routine 03/16/2025 8:05 AM CDT TRANSFUSE RED BLOOD CELL LEUKOREDUCED UNIT(S) Routine 03/16/2025 7:22 AM CDT GLUCOSE - POINT OF CARE Routine 03/16/2025 5:36 AM CDT XR CHEST 1VW PORTABLE Routine 03/16/2025 4:32 AM CDT Endocarditis, 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) Bacteremia SVO2 FOR RECALIBRATION Routine 3:11 AM CDT CALCIUM IONIZED WHOLE BLOOD AM Draw 03/16/2025 3:11 AM CDT HEMOGLOBIN A1C Routine 03/16/2025 3:11 AM CDT CBC W/O DIFFERENTIAL Routine 03/16/2025 3:11 AM CDT COMPREHENSIVE METABOLIC PANEL Routine 03/16/2025 3:11 AM CDT PHOSPHORUS BLOOD Routine 03/16/2025 3:11 AM CDT MAGNESIUM BLOOD Routine 03/16/2025 3:11 AM CDT LACTIC ACID BLOOD Routine 03/16/2025 3:1 1 AM CDT BLOOD GASES ART + COOX PANEL Routine 03/16/2025 3:11 AM CDT GLUCOSE - POINT OF CARE Routine 03/16/2025 2:05 AM CDT GLUCOSE - POINT OF CARE Routine 03/16/2025 2:04 AM CDT GLUCOSE - POINT OF CARE Routine 03/16/2025 12:01 AM CDT SVO2 FOR RECALIBRATION Timed 9:58 PM CDT BLOOD GASES ART + COOX PANEL Timed 03/15/2025 9:58 PM CDT GLUCOSE - POINT OF CARE Routine 03/15/2025 9:56 PM CDT GLUCOSE - POINT OF CARE Routine 03/15/2025 9:06 PM CDT LACTIC ACID BLOOD Timed 03/15/2025 8:2 2 PM CDT SVO2 FOR RECALIBRATION Routine 8:19 PM CDT CALCIUM IONIZED WHOLE BLOOD Routine 03/15/2025 8:19 PM CDT CBC W/O DIFFERENTIAL Routine 03/15/2025 8:19 PM CDT COMPREHENSIVE METABOLIC PANEL Routine 03/15/2025 8:19 PM CDT PHOSPHORUS BLOOD Routine 03/15/2025 8:19 PM CDT MAGNESIUM BLOOD Routine 03/15/2025 8:19 PM CDT BLOOD GASES ART + COOX PANEL Routine 03/15/2025 8:19 PM CDT GLUCOSE - POINT OF CARE Routine 03/15/2025 8:18 PM CDT GLUCOSE - POINT OF CARE Routine 03/15/2025 7:02 PM CDT GLUCOSE - POINT OF CARE Routine 03/15/2025 6:28 PM CDT EKG 12-LEAD STAT 03/15/2025 6:27 PM CDT Endocarditis, 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) Bacteremia TRANSFUSE RED BLOOD CELL LEUKOREDUCED UNIT(S) Routine 03/15/2025 6:19 PM CDT XR CHEST 1VW PORTABLE STAT 03/15/2025 6:16 PM CDT Endocarditis, 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) Bacteremia XR ABDOMEN KUB STAT 03/15/2025 6:16 PM CDT Endocarditis, 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) Bacteremia SVO2 FOR RECALIBRATION Timed 5:32 PM CDT CALCIUM IONIZED WHOLE BLOOD STAT 03/15/2025 5:32 PM CDT FIBRINOGEN ACTIVITY STAT 03/15/2025 5 :32 PM CDT PTT STAT 03/15/2025 5:32 PM CDT PT-INR STAT 03/15/2025 5:32 PM CDT DIFFERENTIAL MANUAL STAT 03/15/2025 5 :32 PM CDT CBC W AUTO DIFFERENTIAL STAT 03/15/2025 5:32 PM CDT CBC W/O DIFFERENTIAL Timed 03/15/2025 5:32 PM CDT COMPREHENSIVE METABOLIC PANEL STAT 03/15/2025 5:32 PM CDT PHOSPHORUS BLOOD STAT 03/15/2025 5:32 PM CDT MAGNESIUM BLOOD Timed 03/15/2025 5:32 PM CDT LACTIC ACID BLOOD STAT 03/15/2025 5:3 2 PM CDT BLOOD GASES ART + COOX PANEL STAT 03/15/2025 5:32 PM CDT GLUCOSE - POINT OF CARE Routine 03/15/2025 5:30 PM CDT PT EVAL AND TREAT Routine 03/15/2025 5:2 2 PM CDT CULTURE FUNGUS OTHER+FUNGUS SMEAR Routine 03/15/2025 5:06 PM CDT CULTURE WOUND+GRAM STAIN STAT 03/15/2025 5:06 PM CDT CULTURE AFB+SMEAR STAT 03/15/2025 5:0 6 PM CDT CULTURE ANAEROBE Routine 03/15/2025 5:06 PM CDT TRANSFUSE FRESH FROZEN PLASMA UNIT(S) STAT 03/15/2025 4:28 PM CDT TRANSFUSE RED BLOOD CELL LEUKOREDUCED UNIT(S) STAT 03/15/2025 4:15 PM CDT TRANSFUSE PLATELET PHERESIS UNIT(S) STAT 03/15/2025 4:12 PM CDT BLOOD GAS+COOX+LYTES+METAB ARTERIAL POCT Routine 03/15/2025 4:00 PM CDT TRANSFUSE RED BLOOD CELL LEUKOREDUCED UNIT(S) STAT 03/15/2025 3:30 PM CDT BLOOD GAS+COOX+LYTES+METAB ARTERIAL POCT Routine 03/15/2025 3:17 PM CDT ACT PLUS - POCT ([facility]) Routine 3:17 PM CDT TEG 6 GLOBAL HEMOSTASIS WITH HEPARIN NEUTRALIZATION STAT 03/15/2025 3:10 PM CDT CKD (chronic kidney disease) stage 5, GFR less than 15 ml/min ([facility]) PTT STAT 03/15/2025 3:10 PM CDT Mitral valve insufficiency, unspecified etiology PT-INR STAT 03/15/2025 3:10 PM CDT Mitral valve insufficiency, unspecified etiology CBC W/O DIFFERENTIAL STAT 03/15/2025 3:10 PM CDT CKD (chronic kidney disease) stage 5, GFR less than 15 ml/min (HCC) BLOOD GAS+COOX+LYTES+METAB ARTERIAL POCT Routine 03/15/2025 2:59 PM CDT BLOOD GAS+COOX+LYTES+METAB ARTERIAL POCT Routine 03/15/2025 2:42 PM CDT ACT PLUS - POCT ([facility]) Routine 2:39 PM CDT FIBRINOGEN ACTIVITY STAT 03/15/2025 2 :34 PM CDT Mitral valve vegetation (HCC) PLATELET COUNT AUTO CITRATED BLOOD STAT 03/15/2025 2:33 PM CDT Mitral valve vegetation (HCC) ACT PLUS - POCT ([facility]) Routine 2:07 PM CDT BLOOD GAS+COOX+LYTES+METAB ARTERIAL POCT Routine 03/15/2025 2:06 PM CDT PATHOLOGY TISSUE Routine 03/15/2025 1:53 PM CDT Mitral valve insufficiency, unspecified etiology BLOOD GAS+COOX+LYTES+METAB ARTERIAL POCT Routine 03/15/2025 1:30 PM CDT ACT PLUS - POCT ([facility]) Routine 1:29 PM CDT BLOOD GAS+COOX+LYTES+METAB ARTERIAL POCT Routine 03/15/2025 1:15 PM CDT ACT PLUS - POCT ([facility]) Routine 1:14 PM CDT ACT PLUS - POCT ([facility]) Routine 1:04 PM CDT ACT PLUS - POCT ([facility]) Routine 12:53 PM CDT BLOOD GAS+COOX+LYTES+METAB ARTERIAL POCT Routine 03/15/2025 12:52 PM CDT ACT PLUS - POCT ([facility]) Routine 12:44 PM CDT BLOOD GAS+COOX+LYTES+METAB ARTERIAL POCT Routine 03/15/2025 12:33 PM CDT BLOOD GAS KATHY+LYTES+METAB+COOX POC NOTIF Routine 03/15/2025 8:06 AM CDT BLOOD GAS ART+LYTES+METAB+COOX POC NOTIF STAT 03/15/2025 8:06 AM CDT CBC W AUTO DIFFERENTIAL AM Draw 03/15/2025 6:31 AM CDT COMPREHENSIVE METABOLIC PANEL AM Draw 03/15/2025 6:31 AM CDT PHOSPHORUS BLOOD AM Draw 03/15/2025 6:31 AM CDT MAGNESIUM BLOOD AM Draw 03/15/2025 6:31 AM CDT ECHO ANES SINTIA INTRAOP Routine 03/15/2025 6:23 AM CDT Endocarditis, suspected TRANSFUSE RED BLOOD CELL LEUKOREDUCED UNIT(S) Routine 03/14/2025 3:15 PM CDT PREPARE RBC LEUKOREDUCED UNIT Routine 03/14/2025 5:21 AM CDT PREPARE RBC LEUKOREDUCED UNIT Routine 03/14/2025 5:21 AM CDT PREPARE RBC LEUKOREDUCED UNIT Routine 03/14/2025 5:21 AM CDT PREPARE RBC LEUKOREDUCED UNIT Routine 03/14/2025 5:21 AM CDT PREPARE RBC LEUKOREDUCED UNIT Routine 03/14/2025 5:21 AM CDT PREPARE RBC LEUKOREDUCED UNIT Routine 03/14/2025 5:21 AM CDT PREPARE PLATELET PHERESIS UNIT(S) Routine 03/14/2025 5:21 AM CDT PREPARE PLATELET PHERESIS UNIT(S) Routine 03/14/2025 5:21 AM CDT PREPARE FFP UNIT(S) STAT 03/14/2025 5 :21 AM CDT PREPARE FFP UNIT(S) Routine 03/14/2025 5 :21 AM CDT TYPE + SCREEN PANEL Routine 03/14/2025 5 :21 AM CDT CBC W AUTO DIFFERENTIAL AM Draw 03/14/2025 5:21 AM CDT COMPREHENSIVE METABOLIC PANEL AM Draw 03/14/2025 5:21 AM CDT PHOSPHORUS BLOOD AM Draw 03/14/2025 5:21 AM CDT MAGNESIUM BLOOD AM Draw 03/14/2025 5:21 AM CDT URINALYSIS REFLEX MICROSCOPIC REFLEX CULTURE Routine 03/13/2025 9:10 AM CDT CBC W AUTO DIFFERENTIAL AM Draw 03/13/2025 6:03 AM CDT COMPREHENSIVE METABOLIC PANEL AM Draw 03/13/2025 6:03 AM CDT PHOSPHORUS BLOOD AM Draw 03/13/2025 6:03 AM CDT MAGNESIUM BLOOD AM Draw 03/13/2025 6:03 AM CDT OT EVAL AND TREAT Routine 03/11/2025 9:0 9 AM CDT PT EVAL AND TREAT Routine 03/11/2025 9:0 9 AM CDT CBC W AUTO DIFFERENTIAL AM Draw 03/11/2025 6:06 AM CDT COMPREHENSIVE METABOLIC PANEL AM Draw 03/11/2025 6:06 AM CDT PHOSPHORUS BLOOD AM Draw 03/11/2025 6:06 AM CDT MAGNESIUM BLOOD AM Draw 03/11/2025 6:06 AM CDT BLOOD TYPE VERIFICATION Routine 03/10/2025 10:02 PM CDT TYPE + SCREEN PANEL Routine 03/10/2025 8 :[address] CHEST WO CONTRAST Routine 03/10/2025 2:43 PM CDT Mitral valve vegetation (HCC) CCL LEFT HEART CATH Routine 03/10/2025 12:49 PM CDT Endocarditis, 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) CBC W AUTO DIFFERENTIAL AM Draw 03/10/2025 6:05 AM CDT COMPREHENSIVE METABOLIC PANEL AM Draw 03/10/2025 6:05 AM CDT PHOSPHORUS BLOOD AM Draw 03/10/2025 6:05 AM CDT MAGNESIUM BLOOD AM Draw 03/10/2025 6:05 AM CDT MN DENTAL SURGERY PROCEDURE 03/09/2025 5:37 PM CDT Infection Case Notes DOCTOR JOSE A WILL BE TO [facility] AND AVAILABLE TO OPERATE AT 1600. US RETROPERITONEAL COMPLETE Routine 03/09/2025 10:35 AM CDT CKD (chronic kidney disease) stage 5, GFR less than 15 ml/min (HCC) CBC W AUTO DIFFERENTIAL AM Draw 03/09/2025 4:46 AM CDT COMPREHENSIVE METABOLIC PANEL AM Draw 03/09/2025 4:45 AM CDT PHOSPHORUS BLOOD AM Draw 03/09/2025 4:45 AM CDT MAGNESIUM BLOOD AM Draw 03/09/2025 4:45 AM CDT VITAMIN D 25-HYDROXY AM Draw 03/08/2025 5:06 AM CDT COMPREHENSIVE METABOLIC PANEL AM Draw 03/08/2025 5:06 AM CDT PHOSPHORUS BLOOD AM Draw 03/08/2025 5:06 AM CDT MAGNESIUM BLOOD AM Draw 03/08/2025 5:06 AM CDT PTH INTACT W/O CALCIUM AM Draw 5:05 AM CDT PT-INR AM Draw 03/08/2025 5:05 AM CDT CBC W AUTO DIFFERENTIAL AM Draw 03/08/2025 5:05 AM CDT IRON + TRANSFERRIN PANEL Routine 03/08/2025 5:05 AM CDT FERRITIN Routine 03/08/2025 5:05 AM CDT VAS CAROTID DUPLEX BILATERAL Routine 03/07/2025 4:07 PM CDT Calcification of mitral valve CBC W AUTO DIFFERENTIAL AM Draw 03/07/2025 5:26 AM CDT COMPREHENSIVE METABOLIC PANEL AM Draw 03/07/2025 5:26 AM CDT PHOSPHORUS BLOOD AM Draw 03/07/2025 5:26 AM CDT MAGNESIUM BLOOD AM Draw 03/07/2025 5:26 AM CDT GLUCOSE - POINT OF CARE Routine 2025 4:46 PM CDT ECHO SINTIA COMPLETE Routine 2025 11:32 AM CDT Calcification of mitral valve CBC W AUTO DIFFERENTIAL AM Draw 2025 4:24 AM CDT COMPREHENSIVE METABOLIC PANEL AM Draw 2025 4:24 AM CDT PHOSPHORUS BLOOD AM Draw 2025 4:24 AM CDT MAGNESIUM BLOOD AM Draw 2025 4:24 AM CDT CBC W AUTO DIFFERENTIAL AM Draw 03/05/2025 5:28 AM CDT COMPREHENSIVE METABOLIC PANEL AM Draw 03/05/2025 5:28 AM CDT PHOSPHORUS BLOOD AM Draw 03/05/2025 5:28 AM CDT MAGNESIUM BLOOD AM Draw 03/05/2025 5:28 AM CDT CULTURE BLOOD Timed 03/04/2025 11:09 AM CDT Abscess of spleen Endocarditis, 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) Bacteremia CULTURE BLOOD Timed 03/04/2025 11:09 AM CDT Abscess of spleen Endocarditis, 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) Bacteremia HEPATITIS C AB SCREEN RFLX NAAT QUANT Routine 03/04/2025 6:36 AM CDT HIV-1 HIV-2 ANTIBODY + HIV P24 AG PANEL Routine 03/04/2025 6:36 AM CDT CBC W AUTO DIFFERENTIAL AM Draw 03/04/2025 6:36 AM CDT COMPREHENSIVE METABOLIC PANEL AM Draw 03/04/2025 6:36 AM CDT PHOSPHORUS BLOOD AM Draw 03/04/2025 6:36 AM CDT MAGNESIUM BLOOD AM Draw 03/04/2025 6:36 AM CDT HEPATITIS B PANEL AM Draw 03/04/2025 6:3 6 AM CDT XR PANOREX Routine 03/03/2025 4:22 PM CDT Abscess of spleen Calcification of mitral valve URINE DRUG SCREEN IMMUNOASSAY Routine 03/03/2025 12:34 PM CDT CBC W AUTO DIFFERENTIAL AM Draw 03/03/2025 5:00 AM CDT COMPREHENSIVE METABOLIC PANEL AM Draw 03/03/2025 5:00 AM CDT PHOSPHORUS BLOOD AM Draw 03/03/2025 5:00 AM CDT MAGNESIUM BLOOD AM Draw 03/03/2025 5:00 AM CDT VANCOMYCIN LEVEL RANDOM Routine 03/03/2025 5:00 AM CDT VANCOMYCIN LEVEL RANDOM Timed 03/02/2025 4:43 PM CDT ECHO COMPLETE W CONTRAST Routine 03/02/2025 12:17 PM CDT Abscess of spleen URINALYSIS REFLEX MICROSCOPIC REFLEX CULTURE Routine 03/02/2025 10:44 AM CDT MRSA PCR STAT 03/02/2025 8:47 AM CDT MONONUCLEOSIS SCREEN AM Draw 03/02/2025 5:34 AM CDT CBC W AUTO DIFFERENTIAL AM Draw 03/02/2025 5:34 AM CDT COMPREHENSIVE METABOLIC PANEL STAT 03/02/2025 5:34 AM CDT PHOSPHORUS BLOOD AM Draw 03/02/2025 5:34 AM CDT MAGNESIUM BLOOD AM Draw 03/02/2025 5:34 AM CDT BLOOD CULTURE ID PANEL Routine 5:33 AM CDT CULTURE BLOOD Timed 03/02/2025 5:33 AM CDT CULTURE BLOOD Timed 03/02/2025 5:33 AM CDT VANCOMYCIN LEVEL RANDOM STAT 03/02/2025 5:33 AM CDT documented in this encounter Results * (ABNORMAL) COMPREHENSIVE METABOLIC PANEL (03/23/2025 12:54 AM CDT) BUN 61(H) 7 - 26 mg/dL 03/23/2025 1:42 AM [facility] Creatinine 2.95(H) 0.71 - 1.16 mg/dL 03/23/2025 1:42 AM [facility] Sodium 135(L) 136 - 145 mmol/L 03/23/2025 1:42 AM [facility] Potassium 4.6(H) 3.5 - 4.5 mmol/L 03/23/2025 1:42 AM [facility] Chloride 102 98 - 107 mmol/L 03/23/2025 1:42 AM [facility] CO2 24 22 - 29 mmol/L 03/23/2025 1:42 AM [facility] Glucose 101(H) 70 - 99 mg/dL 03/23/2025 1:42 AM [facility] Calcium 9.0 8.4 - 10.2 mg/dL 03/23/2025 1:42 AM [facility] Protein Total 7.1 6.0 - 8.3 g/dL 03/23/2025 1:42 AM [facility] Albumin 3.2(L) 3.4 - 5.0 g/dL 03/23/2025 1:42 AM [facility] Bilirubin Total 0.2 0.2 - 1.2 mg/dL 03/23/2025 1:42 AM [facility] Alkaline Phosphatase 168(H) 40 - 150 U/L 03/23/2025 1:42 AM [facility] ALT 67(H) 5 - 55 U/L 03/23/2025 1:42 AM [facility] AST 43(H) 5 - 34 U/L 03/23/2025 1:42 AM [facility] Anion Gap 9 6 - 16 03/23/2025 1:42 AM [facility] BUN/Creatinine Ratio 21 7 - 23 03/23/2025 1:42 AM [facility] Osmolality Calculated 297(H) 275 - 295 mOsm/kg 03/23/2025 1:42 AM [facility] Albumin/Globulin Ratio 0.8(L) 1.1 - 2.3 03/23/2025 1:42 AM [facility] eGFR by CKD-EPI 23(L) >=90 mL/min/1.7 3 m2 03/23/2025 1:42 AM [facility] Comment:Estimated Glomerular Filtration Rate (eGFR) calculated using the CKD-EPI Creatinine Equation (2020), per the [employer] Kid[employer] Foundation and [employer] Neph[employer] recommendations. Blood BLOOD SPECIMEN / Unknown Lab Venipuncture / Unknown 03/23/2025 12:54 AM CDT 03/23/2025 1:16 AM [facility] Rahul Hernandez MD LAB - CHEMISTRY ORD ERABLES Final Result [facility] [address] [place] [address], [facility] [phone] * (ABNORMAL) PT-INR (03/23/2025 12:54 AM [facility]) PT 15.9(H) 12.1 - 14.8 Seconds 03/23/2025 1:37 AM [facility] INR 1.3 See Comment 03/23/2025 1:37 AM CDT [facility] Comment:The suggested therap eutic range for standard coumadin (warfarin) therapy is an INR of 2.0-3.0. For high-risk patients (Mechanical Mitral Valve Prosthesis, etc.), the suggested prophylactic therapeutic range is an INR of 2.5-3.5. Blood BLOOD SPECIMEN / Unknown Lab Venipuncture / Unknown 03/23/2025 12:54 AM CDT 03/23/2025 1:16 AM CDT Rahul Hernandez MD LAB - COAGULATION O RDERABLES Final Result Performing Organization Address [facility] Co de Phone Number [address] [address], [facility] [phone] * PHOSPHORUS BLOOD (03/23/2025 12:54 AM CDT) Phosphorus 3.7 2.8 - 5.1 mg/dL 03/23/2025 1:42 AM CDT [facility] Blood BLOOD SPECIMEN / Unknown Lab Venipuncture / Unknown 03/23/2025 12:54 AM CDT 03/23/2025 1:16 AM CDT Result [facility] Mariya Botello PA-C LAB - CHEMISTRY ORDERABLES F inal Result Performing Organization Address [facility] Co de Phone Number [address] [address], [facility] [phone] * MAGNESIUM BLOOD (03/23/2025 12:54 AM CDT) Magnesium 2.0 1.6 - 2.6 mg/dL 03/23/2025 1:42 AM CDT [facility] Blood BLOOD SPECIMEN / Unknown Lab Venipuncture / Unknown 03/23/2025 12:54 AM CDT 03/23/2025 1:16 AM CDT Mariya Botello PA-C LAB - CHEMISTRY ORDERABLES F inal Result Performing Organization Address City/[facility]/ZIP Co de Phone Number [address] [address] [phone] * (ABNORMAL) CALCIUM IONIZED WHOLE BLOOD (03/23/2025 12:54 AM CDT) [facility] Calcium Ionized 1.16 mmol/L 03/23/2025 1:17 AM T [facility] pH 7.41 7.35 - 7.45 pH 03/23/2025 1:17 AM [facility] Ionized Calcium pH Adjusted 1.16(L) 1.19 - 1.34 mmol/L 03/23/2025 1:17 AM [facility] Blood BLOOD SPECIMEN / Unknown Lab Venipuncture / Unknown 03/23/2025 12:54 AM CDT 03/23/2025 1:12 AM CDT Mariya Botello PA-C LAB - CHEMISTRY ORDERABLES F inal Result [facility] [address] [place] [address] [phone] * (ABNORMAL) CBC W/O DIFFERENTIAL (03/23/2025 12:53 AM CDT) [facility] WBC 12.0(H) 4.0 - 10.7 x10E9/L 03/23/2025 1:22 AM [facility] RBC Count 3.22(L) 4.30 - 5.80 x10E12/L 03/23/2025 1:22 AM [facility] Hemoglobin 9.1(L) 13.3 - 17.5 g/dL 03/23/2025 1:22 AM [facility] Hematocrit 29.0(L) 38.7 - 51.1 % 03/23/2025 1:22 AM [facility] MCV 90.1 80.0 - 98.0 fL 03/23/2025 1:22 AM [facility] MCH 28.3 26.7 - 33.6 pg 03/23/2025 1:22 AM [facility] MCHC 31.4(L) 31.7 - 36.3 g/dL 03/23/2025 1:22 AM CDT [facility] RDW-CV 19.8(H) 11.3 - 14.8 % 03/23/2025 1:22 AM CDT [facility] Platelet Count 334 150 - 420 x10E9/L 03/23/2025 1:22 AM CDT [facility] MPV 10.2 7.8 - 11.4 fL 03/23/2025 1:22 AM CDT [facility] Blood BLOOD SPECIMEN / Unknown Lab Venipuncture / Unknown 03/23/2025 12:53 AM CDT 03/23/2025 1:15 AM CDT Mariya Botello PA-C LAB - HEMATOLOGY ORDERABLES Final Result [facility] [address] [place] [address], [facility] [phone] * IR Central Line Insert Tunnel (03/22/2025 12:28 PM CDT) Anatomical Region Laterality Modality Chest, Upper Extremity X-Ray Ang iography 03/22/2025 2:00 PM CDT Impressions 03/22/2025 2:04 PM CDT IMPRESSION: Successful Right internal jugular tunneled Dual Lumen Powerline placement. > Interpreting Provider: Garcia Gil MD on 03/22/2025 2:04 PM Narrative 03/22/2025 2:04 PM CDT PROCEDURE: IR CENTRAL LINE INSERT TUNNEL DATE/TIME OF EXAM: 03/22/2025 12:53 PM CLINICAL INFORMATION: None relevant/not provided if blank. Indication: R09.89: Endocarditis, suspected N18.5: CKD (chronic kidney disease) stage 5, GFR less than 15 ml/min ([facility]) Additional History: Dry Cleaner Presser: Garcia Gil MD COMPARISON: None. FLUOROSCOPY DOSE: mGy Reference air kerma (ka,r). MEDICATIONS: None. Contrast: None Complications: None immediate Findings and Technique: Following informed consent, the patient was taken to the angiography suite and placed on the fluoroscopy table. The skin of the Right neck and chest was prepared with chlorhexidine and sterile drapes were applied. Limited ultrasound of the (Right) lower neck demonstrated a patent and compressible internal jugular vein. A gustafson scale image was documented and saved to the PACS. Under real time ultrasound guidance, using a micropuncture needle, the (Right) internal jugular vein was accessed. The needle entry was documented and an image was saved to the PACS. 0.018 wire was advanced through the needle to the central veins under fluoroscopic guidance. This allowed the placement of the peel away sheath/dilator combo. An exit site was chosen on the chest wall and anesthetized with lidocaine. The Dual Lumen 6F Powerline was trimmed to the appropriate length of 24 cm and then using a metal tunneling device it was brought through a subcutaneous tunnel to the venotomy incision and prepared for insertion. The inner trochar of the peel away sheath was removed and the catheter was inserted through the sheath which was then removed. The catheter was adjusted for length under fluoroscopy such that the tip was at the junction of the SVC and RA. Lumens flushed easily with Heparinized saline. The catheter was sutured in place with 3-0 Vicryl at the exit site and a Stat Lock device was used to fix the catheter to the chest. A CHG dressing was placed. The venotomy incision was closed with a 3-0 Vicryl suture and covered with gauze and Tegaderm. Moderate sedation on this adult patient was ordered by me, administered intravenously in my presence, and monitored by the procedure nurse as an independent trained observer who was present throughout the procedure. The following parameters were monitored: oxygen saturation, heart rate, blood pressure, and response to care. Intra-service sedation start time was 1214 and end time was 1228 during which I was present. Total physician intra-service sedation time was 14 minutes. For details on pre-moderate sedation and post-moderate sedation patient evaluation, please review the evaluation forms in [facility]. For details on monitored clinical parameters during the intra-service sedation time, please review the procedure nurse documentation in [facility]. I was present for the Entire procedure. Procedure Note Garcia Gil MD - 03/22/2025 PROCEDURE: IR CENTRAL LINE INSERT TUNNEL DATE/TIME OF EXAM: 03/22/2025 12:53 PM CLINICAL INFORMATION: None relevant/not provided if blank. Indication: R09.89: Endocarditis, suspected N18.5: CKD (chronic kidney disease) stage 5, GFR less than 15 ml/min([facility]) Additional History: Dry Cleaner Presser: Garcia Gil MD COMPARISON: None. FLUOROSCOPY DOSE: mGy Reference air kerma (ka,r). MEDICATIONS: None. Contrast: None Complications: None immediate Findings and Technique: Following informed consent, the patient was taken to the angiographysuite and placed on the fluoroscopy table. The skin of the Right neck andchest was prepared with chlorhexidine and sterile drapes were applied. Limited ultrasound of the (Right) lower neck demonstrated a patent andcompressible internal jugular vein. A gustafson scale image was documented and saved tothe PACS. Under real time ultrasound guidance, using a micropuncture needle, the (Right) internal jugular vein was accessed. The needle entry was documented and an image was saved to the PACS. 0.018 wire was advanced through the needle to the central veins under fluoroscopic guidance.This allowed the placement of the peel away sheath/dilator combo. An exitsite was chosen on the chest wall and anesthetized with lidocaine. The Dual Lumen 6F Powerline was trimmed to the appropriate length of 24 cm andthen using a metal tunneling device it was brought through a subcutaneoustunnel to the venotomy incision and prepared for insertion. The inner trocharof the peel away sheath was removed and the catheter was inserted throughthe sheath which was then removed. The catheter was adjusted for lengthunder fluoroscopy such that the tip was at the junction of the SVC and RA.Lumens flushed easily with Heparinized saline. The catheter was sutured inplace with 3-0 Vicryl at the exit site and a Stat Lock device was used to fixthe catheter to the chest. A CHG dressing was placed. The venotomy incisionwas closed with a 3-0 Vicryl suture and covered with gauze and Tegaderm. Moderate sedation on this adult patient was ordered by me, administered intravenously in my presence, and monitored by the procedure nurse as an independent trained observer who was present throughout the procedure.The following parameters were monitored: oxygen saturation, heart rate,blood pressure, and response to care. Intra-service sedation start time [id number] and end time was 1228 during which I was present. Total physician intra-service sedation time was 14 minutes. For details on pre-moderate sedation and post-moderate sedation patient evaluation, please reviewthe evaluation forms in EPIC. For details on monitored clinical parameters during the intra-service sedation time, please review the procedurenurse documentation in [facility]. I was present for the Entire procedure. IMPRESSION: Successful Right internal jugular tunneled Dual Lumen Powerlineplacement. > Interpreting Provider: Garcia Gil MD on 03/22/2025 2:04 PM Rahul Hernandez MD IR ORDERABLES Fin al Result * XR Chest 1Vw Portable (03/22/2025 4:27 AM CDT) Anatomical Region Laterality Modality Chest Digital Radiogra phy 03/22/2025 8:55 AM CDT Narrative 03/22/2025 7:08 PM CDT PROCEDURE: XR CHEST 1VW PORTABLE, DATE/TIME OF EXAM: 03/22/2025 4:27 AM, LOCATION [facility] INDICATION: I34.0: Mitral valve insufficiency, unspecified etiology ADDITIONAL CLINICAL INFORMATION: Ordering Provider Reason For Exam: s/p mvr Technologist Note: Additional: COMPARISON: 03/21/2025 chest x-ray TECHNIQUE: Frontal radiograph of the chest. FINDINGS/IMPRESSION: Postsurgical changes of mitral valve replacement are redemonstrated, characterized by median sternotomy plates, screws, and wires, and a mitral valve prosthesis. Trace bilateral pleural effusions with adjacent atelectasis, grossly unchanged from prior. Overall, aeration remains unchanged. No pneumothorax. The cardiomediastinal silhouette is stable. Degenerative changes are noted in the thoracic spine. Report dictated by Jamie Rucker MD, (associate professor of radiology). > Dictated by Lighting Equipment Operator I, Jamie Barriga MD have personally reviewed and interpreted this examination/study. > Interpreting Provider: Jamie Barriga MD on 03/22/2025 7:08 PM Procedure Note Jamie Barriga MD - 03/22/2025 PROCEDURE: XR CHEST 1VW PORTABLE, DATE/TIME OF EXAM: 03/22/2025 4:27 AM, LOCATION [facility] INDICATION: I34.0: Mitral valve insufficiency, unspecified etiology ADDITIONAL CLINICAL INFORMATION: Ordering Provider Reason For Exam: s/p mvr Technologist Note: Additional: COMPARISON: 03/21/2025 chest x-ray TECHNIQUE: Frontal radiograph of the chest. FINDINGS/IMPRESSION: Postsurgical changes of mitral valve replacement are redemonstrated, characterized by median sternotomy plates, screws, and wires, and amitral valve prosthesis. Trace bilateral pleural effusions with adjacent atelectasis, grossly unchanged from prior. Overall, aeration remains unchanged. Nopneumothorax. The cardiomediastinal silhouette is stable. Degenerative changes arenoted in the thoracic spine. Report dictated by Jamie Rucker MD, (associate professor of radiology). > Dictated by Lighting Equipment Operator I, Jamie Barriga MD have personally reviewed and interpreted this examination/study. > Interpreting Provider: Jamie Barriga MD on 03/22/2025 7:08 PM [place] [employer] DIAGNOSTIC IMAGI NG ORDERABLES Final Result * (ABNORMAL) COMPREHENSIVE METABOLIC PANEL (03/22/2025 3:41 AM CDT) BUN 59(H) 7 - 26 mg/dL 03/22/2025 4:23 AM [facility] Creatinine 2.85(H) 0.71 - 1.16 mg/dL 03/22/2025 4:23 AM [facility] Sodium 136 136 - 145 mmol/L 03/22/2025 4:23 AM [facility] Potassium 4.5 3.5 - 4.5 mmol/L 03/22/2025 4:23 AM [facility] Chloride 104 98 - 107 mmol/L 03/22/2025 4:23 AM [facility] CO2 22 22 - 29 mmol/L 03/22/2025 4:23 AM [facility] Glucose 106(H) 70 - 99 mg/dL 03/22/2025 4:23 AM [facility] Calcium 9.0 8.4 - 10.2 mg/dL 03/22/2025 4:23 AM [facility] Protein Total 6.8 6.0 - 8.3 g/dL 03/22/2025 4:23 AM [facility] Albumin 3.1(L) 3.4 - 5.0 g/dL 03/22/2025 4:23 AM [facility] Bilirubin Total 0.3 0.2 - 1.2 mg/dL 03/22/2025 4:23 AM [facility] Alkaline Phosphatase 154(H) 40 - 150 U/L 03/22/2025 4:23 AM [facility] ALT 84(H) 5 - 55 U/L 03/22/2025 4:23 AM [facility] AST 37(H) 5 - 34 U/L 03/22/2025 4:23 AM [facility] Anion Gap 10 6 - 16 03/22/2025 4:23 AM [facility] BUN/Creatinine Ratio 21 7 - 23 03/22/2025 4:23 AM [facility] Osmolality Calculated 299(H) 275 - 295 mOsm/kg 03/22/2025 4:23 AM [facility] Albumin/Globulin Ratio 0.8(L) 1.1 - 2.3 03/22/2025 4:23 AM [facility] eGFR by CKD-EPI 24(L) >=90 mL/min/1.7 3 m2 03/22/2025 4:23 AM [facility] Comment:Estimated Glomerular Filtration Rate (eGFR) calculated using the CKD-EPI Creatinine Equation (2020), per the National Kidney Foundation and British Society of Nephrology recommendations. Blood BLOOD SPECIMEN / Unknown Venipuncture / Unknown 03/22/2025 3:41 AM CDT 03/22/2025 3:51 AM CDT us Rahul Hernandez MD LAB - CHEMISTRY ORD ERABLES Final Result [facility] [address] [place] [address], [facility] [phone] * (ABNORMAL) PT-INR (03/22/2025 3:41 AM CDT) PT 15.7(H) 12.1 - 14.8 Seconds 03/22/2025 4:15 AM [facility] INR 1.3 See Comment 03/22/2025 4:15 AM [facility] Comment:The suggested therap eutic range for standard coumadin (warfarin) therapy is an INR of 2.0-3.0. For high-risk patients (Mechanical Mitral Valve Prosthesis, etc.), the suggested prophylactic therapeutic range is an INR of 2.5-3.5. Blood BLOOD SPECIMEN / Unknown Venipuncture / Unknown 03/22/2025 3:41 AM CDT 03/22/2025 3:52 AM CDT Rahul Hernandez MD LAB - COAGULATION O RDERABLES Final Result Performing Organization Address [facility]/ZIP Co de Phone Number [address] [address], [facility] [phone] * PHOSPHORUS BLOOD (03/22/2025 3:41 AM CDT) Phosphorus 3.2 2.8 - 5.1 mg/dL 03/22/2025 4:23 AM CDT [facility] Blood BLOOD SPECIMEN / Unknown Venipuncture / Unknown 03/22/2025 3:41 AM CDT 03/22/2025 3:51 AM CDT Result [facility] Mariya GARRETT-C LAB - CHEMISTRY ORDERABLES F inal Result Performing Organization Address [facility] Co de Phone Number [address] [address], [place] [phone] * MAGNESIUM BLOOD (03/22/2025 3:41 AM CDT) Magnesium 2.0 1.6 - 2.6 mg/dL 03/22/2025 4:23 AM CDT [facility] Blood BLOOD SPECIMEN / Unknown Venipuncture / Unknown 03/22/2025 3:41 AM CDT 03/22/2025 3:51 AM CDT Mariya GARRETT-C LAB - CHEMISTRY ORDERABLES F inal Result Performing Organization Address [facility] Co de Phone Number [address] [address], [place] [phone] * (ABNORMAL) CBC W/O DIFFERENTIAL (03/22/2025 3:41 AM CDT) WBC 13.0(H) 4.0 - 10.7 x10E9/L 03/22/2025 3:58 AM [facility] RBC Count 2.95(L) 4.30 - 5.80 x10E12/L 03/22/2025 3:58 AM [facility] Hemoglobin 8.4(L) 13.3 - 17.5 g/dL 03/22/2025 3:58 AM [facility] Hematocrit 25.5(L) 38.7 - 51.1 % 03/22/2025 3:58 AM [facility] MCV 86.4 80.0 - 98.0 fL 03/22/2025 3:58 AM [facility] MCH 28.5 26.7 - 33.6 pg 03/22/2025 3:58 AM [facility] MCHC 32.9 31.7 - 36.3 g/dL 03/22/2025 3:58 AM [facility] RDW-CV 19.8(H) 11.3 - 14.8 % 03/22/2025 3:58 AM [facility] Platelet Count 274 150 - 420 x10E9/L 03/22/2025 3:58 AM [facility] MPV 10.5 7.8 - 11.4 fL 03/22/2025 3:58 AM [facility] NRBC 0.2(H) <=0.0 /100 WBC 03/22/2025 3:58 AM [facility] Blood BLOOD SPECIMEN / Unknown Venipuncture / Unknown 03/22/2025 3:41 AM CDT 03/22/2025 3:51 AM T Mariya Botello PA-C LAB - HEMATOLOGY ORDERABLES Final Result [facility] [address] [place] [address], [facility] [phone] * CALCIUM IONIZED WHOLE BLOOD (03/22/2025 3:41 AM CDT) Calcium Ionized 1.24 mmol/L 03/22/2025 3:53 AM [facility] pH 7.41 7.35 - 7.45 pH 03/22/2025 3:53 AM [facility] Ionized Calcium pH Adjusted 1.25 1.19 - 1.34 mmol/L 03/22/2025 3:53 AM [facility] Blood BLOOD SPECIMEN / Unknown Venipuncture / Unknown 03/22/2025 3:41 AM CDT 03/22/2025 3:48 AM CDT Mariya Botello PA-C LAB - CHEMISTRY ORDERABLES F inal Result [facility] [address] [place] [address], [facility] [phone] * (ABNORMAL) COMPREHENSIVE METABOLIC PANEL (03/21/2025 4:35 AM CDT) Pathologist [facility] BUN 51(H) 7 - 26 mg/dL 03/21/2025 5:10 AM [facility] Creatinine 2.83(H) 0.71 - 1.16 mg/dL 03/21/2025 5:10 AM [facility] Sodium 134(L) 136 - 145 mmol/L 03/21/2025 5:10 AM [facility] Potassium 3.8 3.5 - 4.5 mmol/L 03/21/2025 5:10 AM [facility] Chloride 103 98 - 107 mmol/L 03/21/2025 5:10 AM [facility] CO2 21(L) 22 - 29 mmol/L 03/21/2025 5:10 AM [facility] Glucose 134(H) 70 - 99 mg/dL 03/21/2025 5:10 AM [facility] Calcium 8.8 8.4 - 10.2 mg/dL 03/21/2025 5:10 AM [facility] Protein Total 6.7 6.0 - 8.3 g/dL 03/21/2025 5:10 AM [facility] Albumin 3.2(L) 3.4 - 5.0 g/dL 03/21/2025 5:10 AM [facility] Bilirubin Total 0.3 0.2 - 1.2 mg/dL 03/21/2025 5:10 AM [facility] Alkaline Phosphatase 169(H) 40 - 150 U/L 03/21/2025 5:10 AM [facility] ALT 105(H) 5 - 55 U/L 03/21/2025 5:10 AM [facility] AST 60(H) 5 - 34 U/L 03/21/2025 5:10 AM [facility] Anion Gap 10 6 - 16 03/21/2025 5:10 AM [facility] BUN/Creatinine Ratio 18 7 - 23 03/21/2025 5:10 AM [facility] Osmolality Calculated 294 275 - 295 mOsm/kg 03/21/2025 5:10 AM [facility] Albumin/Globulin Ratio 0.9(L) 1.1 - 2.3 03/21/2025 5:10 AM [facility] eGFR by CKD-EPI 24(L) >=90 mL/min/1.7 3 m2 03/21/2025 5:10 AM [facility] Comment:Estimated Glomerular Filtration Rate (eGFR) calculated using the CKD-EPI Creatinine Equation (2020), per the National Kidney Foundation and British Society of Nephrology recommendations. Blood BLOOD SPECIMEN / Unknown Venipuncture / Unknown 03/21/2025 4:35 AM CDT 03/21/2025 4:43 AM CDT us Rahul Hernandez MD LAB - CHEMISTRY ORD ERABLES Final Result [facility] [address] [place] [address], [facility] [phone] * (ABNORMAL) PT-INR (03/21/2025 4:35 AM CDT) PT 16.3(H) 12.1 - 14.8 Seconds 03/21/2025 5:04 AM [facility] INR 1.4 See Comment 03/21/2025 5:04 AM CDT [facility] Comment:The suggested therap eutic range for standard coumadin (warfarin) therapy is an INR of 2.0-3.0. For high-risk patients (Mechanical Mitral Valve Prosthesis, etc.), the suggested prophylactic therapeutic range is an INR of 2.5-3.5. Blood BLOOD SPECIMEN / Unknown Venipuncture / Unknown 03/21/2025 4:35 AM CDT 03/21/2025 4:43 AM CDT Rahul Hernandez MD LAB - COAGULATION O RDERABLES Final Result Performing Organization Address City/[facility]/ZIP Co de Phone Number [address] [address], [facility] [phone] * PHOSPHORUS BLOOD (03/21/2025 4:35 AM CDT) Phosphorus 3.8 2.8 - 5.1 mg/dL 03/21/2025 5:10 AM CDT [facility] Blood BLOOD SPECIMEN / Unknown Venipuncture / Unknown 03/21/2025 4:35 AM CDT 03/21/2025 4:43 AM CDT Result [facility] Mariya Botello PA-C LAB - CHEMISTRY ORDERABLES F inal Result Performing Organization Address City/[facility]/ZIP Co de Phone Number [address] [address], [place] [phone] * MAGNESIUM BLOOD (03/21/2025 4:35 AM CDT) Magnesium 1.8 1.6 - 2.6 mg/dL 03/21/2025 5:10 AM CDT [facility] Blood BLOOD SPECIMEN / Unknown Venipuncture / Unknown 03/21/2025 4:35 AM CDT 03/21/2025 4:43 AM CDT Mariya GARRETT-C LAB - CHEMISTRY ORDERABLES F inal Result Performing Organization Address [facility] Co de Phone Number [facility] [address] [place] [address], [facility] [phone] * (ABNORMAL) CBC W/O DIFFERENTIAL (03/21/2025 4:35 AM CDT) WBC 11.0(H) 4.0 - 10.7 x10E9/L 03/21/2025 4:49 AM [facility] RBC Count 3.12(L) 4.30 - 5.80 x10E12/L 03/21/2025 4:49 AM [facility] Hemoglobin 8.6(L) 13.3 - 17.5 g/dL 03/21/2025 4:49 AM [facility] Hematocrit 26.5(L) 38.7 - 51.1 % 03/21/2025 4:49 AM [facility] MCV 84.9 80.0 - 98.0 fL 03/21/2025 4:49 AM [facility] MCH 27.6 26.7 - 33.6 pg 03/21/2025 4:49 AM [facility] MCHC 32.5 31.7 - 36.3 g/dL 03/21/2025 4:49 AM [facility] RDW-CV 19.6(H) 11.3 - 14.8 % 03/21/2025 4:49 AM [facility] Platelet Count 227 150 - 420 x10E9/L 03/21/2025 4:49 AM [facility] MPV 10.5 7.8 - 11.4 fL 03/21/2025 4:49 AM [facility] NRBC 0.2(H) <=0.0 /100 WBC 03/21/2025 4:49 AM [facility] Blood BLOOD SPECIMEN / Unknown Venipuncture / Unknown 03/21/2025 4:35 AM CDT 03/21/2025 4:43 AM CDT Mariya MCARTHURC LAB - HEMATOLOGY ORDERABLES Final Result Performing Organization Address City/State/[facility] Co de Phone Number [address] [address], [facility] [phone] * (ABNORMAL) CALCIUM IONIZED WHOLE BLOOD (03/21/2025 4:35 AM CDT) Calcium Ionized 1.17 mmol/L 03/21/2025 4:44 AM CDT [facility] pH 7.39 7.35 - 7.45 pH 03/21/2025 4:44 AM CDT [facility] Ionized Calcium pH Adjusted 1.17(L) 1.19 - 1.34 mmol/L 03/21/2025 4:44 AM CDT [facility] Blood BLOOD SPECIMEN / Unknown Venipuncture / Unknown 03/21/2025 4:35 AM CDT 03/21/2025 4:41 AM CDT Mariya Botello PA-C LAB - CHEMISTRY ORDERABLES F inal Result Performing Organization Address [facility]/ZIP Co de Phone Number [address] [address], [facility] [phone] * XR Chest 1Vw Portable (03/21/2025 4:29 AM CDT) Anatomical Region Laterality Modality Chest Digital Radiogra phy 03/21/2025 10:0 6 AM CDT Narrative 03/21/2025 10:48 AM CDT PROCEDURE: XR CHEST 1VW PORTABLE, DATE/TIME OF EXAM: 03/21/2025 4:29 AM, LOCATION [facility] INDICATION: J44.9: Chronic obstructive pulmonary disease, unspecified COPD type ([facility]) ADDITIONAL CLINICAL INFORMATION: Ordering Provider Reason For Exam: eval Technologist Note: Additional: COMPARISON: chest radiograph dated 03/20/2025 FINDINGS/IMPRESSION: Median sternotomy wires and plates. Cardiac valve prosthesis. Mild bibasilar atelectasis. Trace bilateral pleural fluid with atelectasis. Overall improved aeration from prior. No pneumothorax. The cardiomediastinal silhouette is stable. Degenerative changes are noted in the thoracic spine. > Dictated by Ivone Hinkle MD (associate professor of radiology) > Dictated by Lighting Equipment Operator I, Garth Dolan MD have personally reviewed and interpreted this examination/study. > Interpreting Provider: Garth Dolan MD on 03/21/2025 10:48 AM Procedure Note Garth Dolan MD - 03/21/2025 PROCEDURE: XR CHEST 1VW PORTABLE, DATE/TIME OF EXAM: 03/21/2025 4:29 AM, LOCATION [facility] INDICATION: J44.9: Chronic obstructive pulmonary disease, unspecified COPD type(HCC) ADDITIONAL CLINICAL INFORMATION: Ordering Provider Reason For Exam: eval Technologist Note: Additional: COMPARISON: chest radiograph dated 03/20/2025 FINDINGS/IMPRESSION: Median sternotomy wires and plates. Cardiac valve prosthesis. Mild bibasilar atelectasis. Trace bilateral pleural fluid withatelectasis. Overall improved aeration from prior. No pneumothorax. The cardiomediastinal silhouette is stable. Degenerative changes arenoted in the thoracic spine. > Dictated by Ivone Hinkle MD (associate professor of radiology) > Dictated by Lighting Equipment Operator I, Garth Dolan MD have personally reviewed and interpreted this examination/study. > Interpreting Provider: Garth Dolan MD on 03/21/2025 10:48 AM Tj Storey [employer] DIAGNOSTIC IMAGING ORDERABLES Final Result * EKG 12-Lead (03/20/2025 4:54 AM CDT) Ventricular Rate 79 BPM [facility] MUSE Atrial Rate 79 BPM [facility] MUSE P-R Interval 260 ms [facility] MUSE QRS Duration ms 90 ms [facility] MUSE Q-T Interval ms 404 ms [facility] MUSE QTC Calculation (Bezet) 463 ms [facility] MUSE Calculated P [place] 37 degrees [facility] MUSE Calculated R [place] 37 degrees [facility]USE Calculated T [place] 32 degrees [facility] MUSE Interpretation EKG SINUS RHYTHM WITH 1ST DEGREE A-V BLOCK LOW VOLTAGE QRS BORDERLINE ECG WHEN COMPARED WITH ECG OF 19-MAR-2025 05:45, NO SIGNIFICANT CHANGE COMPARED WITH PRIOR EKG Confirmed by PRASAD LOUIS MD ([id number]) on 03/20/2025 9:58:49 PM [facility] MUSE 03/20/2025 4:54 AM CDT 03/20/2025 9:58 PM CDT us Nayanbita Hernandez [employer] ECG ORDERABLES Ace mulu Result - Final [facility] MUSE * (ABNORMAL) CBC W/O DIFFERENTIAL (03/20/2025 4:08 AM T) WBC 11.2(H) 4.0 - 10.7 x10E9/L 03/20/2025 4:18 AM [facility] RBC Count 3.03(L) 4.30 - 5.80 x10E12/L 03/20/2025 4:18 AM [facility] Hemoglobin 8.6(L) 13.3 - 17.5 g/dL 03/20/2025 4:18 AM [facility] Hematocrit 25.9(L) 38.7 - 51.1 % 03/20/2025 4:18 AM [facility] MCV 85.5 80.0 - 98.0 fL 03/20/2025 4:18 AM [facility] MCH 28.4 26.7 - 33.6 pg 03/20/2025 4:18 AM [facility] MCHC 33.2 31.7 - 36.3 g/dL 03/20/2025 4:18 AM [facility] RDW-CV 19.5(H) 11.3 - 14.8 % 03/20/2025 4:18 AM [facility] Platelet Count 223 150 - 420 x10E9/L 03/20/2025 4:18 AM [facility] MPV 10.5 7.8 - 11.4 fL 03/20/2025 4:18 AM [facility] NRBC 0.4(H) <=0.0 /100 WBC 03/20/2025 4:18 AM [facility] Blood BLOOD SPECIMEN / Unknown Venipuncture / Unknown 03/20/2025 4:08 AM CDT 03/20/2025 4:12 AM CDT us Nayan Flaquito Hernandez [employer] LAB - HEMATOLOGY OR DERABLES Final Result [facility] [address] [place] [address], [place] [phone] * XR Chest 1Vw Portable (03/20/2025 3:48 AM CDT) Anatomical Region Laterality Modality Chest Digital Radiogra phy 03/20/2025 6:54 PM CDT Narrative 03/20/2025 6:55 PM CDT PROCEDURE: XR CHEST 1VW PORTABLE DATE/TIME OF EXAM: 03/20/2025 3:48 AM CLINICAL INFORMATION: None relevant/not provided if blank. Indication: I34.0: Mitral valve insufficiency, unspecified etiology J44.9: Chronic obstructive pulmonary disease, unspecified COPD type (HCC) Additional History: COMPARISON: Chest x-ray 03/19/2025 FINDINGS/IMPRESSION: Interval removal of right internal jugular vein central venous catheter. Cardiac prostatic valve again noted. Sternotomy wires and plates again noted. Low lung volumes with bronchoscopy vascular crowding. Trace bilateral pleural fluid and adjacent atelectasis. Mild pulmonary congestion. Overall aeration appears improved. No large pneumothorax. The cardiomediastinal silhouette is stable. Degenerative changes are noted in the thoracic spine. > Interpreting Provider: Kelton Paredes on 03/20/2025 6:55 PM Procedure Note Kelton Paredes MD - 03/20/2025 PROCEDURE: XR CHEST 1VW PORTABLE DATE/TIME OF EXAM: 03/20/2025 3:48 AM CLINICAL INFORMATION: None relevant/not provided if blank. Indication: I34.0: Mitral valve insufficiency, unspecified etiology J44.9: Chronic obstructive pulmonary disease, unspecified COPD type(HCC) Additional History: COMPARISON: Chest x-ray 03/19/2025 FINDINGS/IMPRESSION: Interval removal of right internal jugular vein central venous catheter. Cardiac prostatic valve again noted. Sternotomy wires and plates again noted. Low lung volumes with bronchoscopy vascular crowding. Trace bilateral pleural fluid and adjacent atelectasis. Mild pulmonary congestion.Overall aeration appears improved. No large pneumothorax. The cardiomediastinal silhouette is stable. Degenerative changes are noted in the thoracicspine. > Interpreting Provider: Kelton Paredes on 03/20/2025 6:55 PM Nayanbita Hernandez [employer] DIAGNOSTIC IMAGING ORDERABLES Final Result * (ABNORMAL) COMPREHENSIVE METABOLIC PANEL (03/20/2025 3:29 AM T) BUN 52(H) 7 - 26 mg/dL 03/20/2025 4:10 AM [facility] Creatinine 2.94(H) 0.71 - 1.16 mg/dL 03/20/2025 4:10 AM [facility] Sodium 132(L) 136 - 145 mmol/L 03/20/2025 4:10 AM [facility] Potassium 4.0 3.5 - 4.5 mmol/L 03/20/2025 4:10 AM [facility] Chloride 101 98 - 107 mmol/L 03/20/2025 4:10 AM [facility] CO2 22 22 - 29 mmol/L 03/20/2025 4:10 AM [facility] Glucose 116(H) 70 - 99 mg/dL 03/20/2025 4:10 AM [facility] Calcium 8.5 8.4 - 10.2 mg/dL 03/20/2025 4:10 AM [facility] Protein Total 6.3 6.0 - 8.3 g/dL 03/20/2025 4:10 AM [facility] Albumin 3.1(L) 3.4 - 5.0 g/dL 03/20/2025 4:10 AM [facility] Bilirubin Total 0.2 0.2 - 1.2 mg/dL 03/20/2025 4:10 AM [facility] Alkaline Phosphatase 193(H) 40 - 150 U/L 03/20/2025 4:10 AM [facility] ALT 127(H) 5 - 55 U/L 03/20/2025 4:10 AM [facility] AST 80(H) 5 - 34 U/L 03/20/2025 4:10 AM [facility] Anion Gap 9 6 - 16 03/20/2025 4:10 AM [facility] BUN/Creatinine Ratio 18 7 - 23 03/20/2025 4:10 AM [facility] Osmolality Calculated 289 275 - 295 mOsm/kg 03/20/2025 4:10 AM [facility] Albumin/Globulin Ratio 1.0(L) 1.1 - 2.3 03/20/2025 4:10 AM [facility] eGFR by CKD-EPI 23(L) >=90 mL/min/1.7 3 m2 03/20/2025 4:10 AM [facility] Comment:Estimated Glomerular Filtration Rate (eGFR) calculated using the CKD-EPI Creatinine Equation (2020), per the National Kidney Foundation and [employer] Nephrology recommendations. Blood BLOOD SPECIMEN / Unknown Venipuncture / Unknown 03/20/2025 3:29 AM CDT 03/20/2025 3:43 AM CDT Rahul Hernandez MD LAB - CHEMISTRY ORD ERABLES Final Result [address] [address], [facility] [phone] * (ABNORMAL) PT-INR (03/20/2025 3:29 AM CDT) PT 15.3(H) 12.1 - 14.8 Seconds 03/20/2025 4:06 AM [facility] INR 1.2 See Comment 03/20/2025 4:06 AM [facility] Comment:The suggested therap eutic range for standard coumadin (warfarin) therapy is an INR of 2.0-3.0. For high-risk patients (Mechanical Mitral Valve Prosthesis, etc.), the suggested prophylactic therapeutic range is an INR of 2.5-3.5. Blood BLOOD SPECIMEN / Unknown Venipuncture / Unknown 03/20/2025 3:29 AM CDT 03/20/2025 3:43 AM CDT us Rahul Hernandez MD LAB - COAGULATION O RDERABLES Final Result Performing Organization Address [facility]/ZIP Co de Phone Number [address] [address], [place] [phone] * PHOSPHORUS BLOOD (03/20/2025 3:29 AM CDT) Phosphorus 3.5 2.8 - 5.1 mg/dL 03/20/2025 4:10 AM CDT [facility] Blood BLOOD SPECIMEN / Unknown Venipuncture / Unknown 03/20/2025 3:29 AM CDT 03/20/2025 3:43 AM CDT Mariya Botello PA-C LAB - CHEMISTRY ORDERABLES F inal Result Performing Organization Address [facility] Co de Phone Number [address] [address], [place] [phone] * MAGNESIUM BLOOD (03/20/2025 3:29 AM CDT) Pathologist [facility] Magnesium 2.0 1.6 - 2.6 mg/dL 03/20/2025 4:10 AM CDT [facility] Blood BLOOD SPECIMEN / Unknown Venipuncture / Unknown 03/20/2025 3:29 AM CDT 03/20/2025 3:43 AM CDT Mariya Botello PA-C LAB - CHEMISTRY ORDERABLES F inal Result Performing Organization Address City/[facility]/ZIP Co de Phone Number [address] [address], [place] [phone] * (ABNORMAL) CBC W/O DIFFERENTIAL (03/20/2025 3:29 AM CDT) WBC 13.7(H) 4.0 - 10.7 x10E9/L 03/20/2025 4:25 AM CDT [facility] RBC Count 2.16(L) 4.30 - 5.80 x10E12/L 03/20/2025 4:25 AM [facility] Hemoglobin 6.0(L) 13.3 - 17.5 g/dL 03/20/2025 4:25 AM [facility] Hematocrit 18.3(L) 38.7 - 51.1 % 03/20/2025 4:25 AM [facility] MCV 84.7 80.0 - 98.0 fL 03/20/2025 4:25 AM [facility] MCH 27.8 26.7 - 33.6 pg 03/20/2025 4:25 AM [facility] MCHC 32.8 31.7 - 36.3 g/dL 03/20/2025 4:25 AM [facility] RDW-CV 19.3(H) 11.3 - 14.8 % 03/20/2025 4:25 AM [facility] Platelet Count 244 150 - 420 x10E9/L 03/20/2025 4:25 AM [facility] MPV 10.8 7.8 - 11.4 fL 03/20/2025 4:25 AM [facility] NRBC 0.4(H) <=0.0 /100 WBC 03/20/2025 4:25 AM [facility] Blood BLOOD SPECIMEN / Unknown Venipuncture / Unknown 03/20/2025 3:29 AM CDT 03/20/2025 3:43 AM CDT Mariya Botello PA-C LAB - HEMATOLOGY ORDERABLES Final Result Performing Organization Address City/State/[facility] Co de Phone Number [facility] [address] [place] [address], [facility] [phone] * CALCIUM IONIZED WHOLE BLOOD (03/20/2025 3:29 AM CDT) Calcium Ionized 1.19 mmol/L 03/20/2025 3:43 AM [facility] pH 7.41 7.35 - 7.45 pH 03/20/2025 3:43 AM [facility] Ionized Calcium pH Adjusted 1.19 1.19 - 1.34 mmol/L 03/20/2025 3:43 AM [facility] Blood BLOOD SPECIMEN / Unknown Venipuncture / Unknown 03/20/2025 3:29 AM CDT 03/20/2025 3:38 AM CDT Mariya Botello PA-C LAB - CHEMISTRY ORDERABLES F inal Result [facility] [address] [place] [address], [facility] [phone] * (ABNORMAL) BASIC METABOLIC PANEL (CALCIUM TOTAL) (03/19/2025 8:44 PM CDT) BUN 54(H) 7 - 26 mg/dL 03/19/2025 9:27 PM [facility] Creatinine 2.92(H) 0.71 - 1.16 mg/dL 03/19/2025 9:27 PM [facility] Sodium 134(L) 136 - 145 mmol/L 03/19/2025 9:27 PM [facility] Potassium 3.7 3.5 - 4.5 mmol/L 03/19/2025 9:27 PM [facility] Chloride 101 98 - 107 mmol/L 03/19/2025 9:27 PM [facility] CO2 22 22 - 29 mmol/L 03/19/2025 9:27 PM [facility] Glucose 122(H) 70 - 99 mg/dL 03/19/2025 9:27 PM [facility] Calcium 8.7 8.4 - 10.2 mg/dL 03/19/2025 9:27 PM [facility] Anion Gap 11 6 - 16 03/19/2025 9:27 PM [facility] BUN/Creatinine Ratio 18 7 - 23 03/19/2025 9:27 PM [facility] Osmolality Calculated 294 275 - 295 mOsm/kg 03/19/2025 9:27 PM [facility] eGFR by CKD-EPI 23(L) >=90 mL/min/1.7 3 m2 03/19/2025 9:27 PM [facility] Comment:Estimated Glomerular Filtration Rate (eGFR) calculated using the CKD-EPI Creatinine Equation (2020), per the National Kidney Foundation and [employer] Society of Nephrology recommendations. Blood BLOOD SPECIMEN / Unknown Venipuncture / Unknown 03/19/2025 8:44 PM CDT 03/19/2025 8:58 PM CDT [facility]ayan Hernandez [facility] LAB - CHEMISTRY ORD ERABLES Final Result Performing Organization Address City/[facility]/ZIP Co de Phone Number [address] [address], [facility] [phone] * EKG 12-Lead (03/19/2025 6:44 PM CDT) Pathologist [facility] Ventricular Rate 130 BPM SL MUSE Atrial Rate 130 BPM [facility] MUSE QRS Duration ms 86 ms [facility] MUSE Q-T Interval ms 316 ms [facility] MUSE QTC Calculation (Bezet) 465 ms [facility] MUSE Calculated P [place] 33 degrees [facility] MUSE Calculated R [place] 18 degrees [facility] MUSE Calculated T [place] 19 degrees [facility] MUSE Interpretation EKG SINUS TACHYCARDIA NONSPECIFIC ST ABNORMALITY ABNORMAL ECG WHEN COMPARED WITH ECG OF 19-MAR-2025 05:45, NO SIGNIFICANT CHANGE COMPARED WITH PRIOR EKG Confirmed by PRASAD LOUIS MD ([id number]) on 03/20/2025 9:59:52 PM [facility] MUSE 03/19/2025 6:44 PM CDT 03/20/2025 9:59 PM CDT [facility]ayan [facility] ECG ORDERABLES Ace mulu Result - Final Performing Organization Address City/[facility]/ZIP Co de Phone Number [facility] MUSE * ECHO COMPLETE W CONTRAST (03/19/2025 10:47 AM CDT) Pathologist [facility] IVSd 2D 0.99 cm SSM CV FUJ I PACS LVIDd 4.303 cm [facility]SM CV FUJ I PACS LVIDs 2.878 cm [facility] CV FUJ I PACS LVOT diam 1.94 cm [facility] CV FUJ I PACS LVPWd 1.189 cm [facility] CV FUJ I PACS LV biplane EF 67.255 % [facility] CV FUJI PACS LV A2C EF 59.742 % [facility] CV [facility] I PACS LV A4C EF 72.856 % [facility] CV [facility] I PACS LV EDV A2C 100.563 ml SSM CV FU JI PACS LV EDV A4C 142.773 ml SSM CV FU JI PACS LV ESV A2C 40.485 ml S[facility] CV FU JI PACS LV ESV A4C 38.754 ml SSM CV FU JI PACS LVOT pk grad 6.299 mmHg SSM CV FUJI PACS LVOT pk valeriano 125.487 cm/s SSM CV F UJI PACS LVOT VTI 21.326 cm SSM CV [facility] I PACS RV-valdez basal diam 3.541 cm [facility] RVIDd 3.315 cm [facility] CV [facility] I PACS RVOT diam Doppler 2.414 cm SS M CV [facility] RVOT pk valeriano 88.733 cm/s S[facility] CV F UJI PACS RVOT VTI 15.158 cm SSM CV [facility] I PACS LA size 4.112 cm SSM CV [facility] I PACS LA vol BP 78.882 ml SSM CV [facility] I PACS RA area 17.37 cm [facility] AV area pk valeriano 2.416 cm [facility] area cont VTI 2.313 cm [facility] AV pk grad 9.427 mmHg S[facility] CV FU JI PACS AV mn grad 5.644 mmHg SSM CV FU PACS AV pk valeriano 153.514 cm/s SSM CV [facility] I PACS AV VTI 27.253 cm S[facility] CV [facility] I PACS MV A pk valeriano 97.364 cm/s SSM CV F UJI PACS MV E pk valeriano 123.515 cm/s SSM CV F UJI PACS MV E' lateral valeriano 4.132 cm/s SS M CV [facility] MV mn grad 2.134 mmHg S[facility] CV FU JI PACS MV VTI 25.234 cm SSM CV [facility] I PACS PV pk vlaeriano 101.698 cm/s SSM CV [facility] I PACS PV VTI 13.746 cm SSM CV [facility] I PACS TAPSE 1.405 cm SSM CV [facility] I PACS Ascending aorta 3.209 cm SSM CV FUJI PACS IVC Diam Expiration 2.335 cm SSM CV FUJI PACS AV area index 1.129 cm /m SSM CV FUJI PACS LA vol index 0.039 l/m SSM CV FUJI PACS Dimensionless Index 0.783 unitless SSM CV FUJI PACS Myocardial strain charge 2 unitless SSM CV FUJI PACS Anatomical Region Laterality Modality Ultrasound 03/19/2025 10:1 6 AM CDT Narrative 03/20/2025 4:35 AM CDT Summary * The left ventricle is normal in size, with normal systolic function and an estimated ejection fraction of 67 % by biplane method of disks. Left ventricular wall motion is grossly normal, however endocardial definition is limited despite contrast. * The left ventricular mass is normal with concentric remodeling. * Right ventricle is normal in size with grossly normal systolic function. * By history there is a unknown size bioprosthetic valve in the mitral position. The valve is well seated, the leaflets are not well visualized, with no significant regurgitation, and no paravalvular regurgitation. MVR indices; a dimensionless index (DI) of 1.18, a valve area of 2.50 cm2, a mean gradient of 2 mmHg. Findings are consistent with normal valve function. * The inferior vena cava is dilated (> 2.1 cm). * There is no pericardial effusion. Patient Info Name: Marshall Espinal Age: 65 years : 1960 Gender: Male Ht: 67 in Wt: 191 lb BSA: 2.05 m2 HR: 77 bpm BP: 117 / 81 mmHg Heart Rhythm: Sinus Rhythm Exam Date: 03/19/2025 10:16 AM Patient Status: I/P Study Site: [facility] Primary Location: [facility] Info Technical Quality: Fair Exam Type: ECHO COMPLETE W CONTRAST Indications I34.0 - Mitral valve insufficiency, unspecified etiology Procedure(s) * A complete 2D, color Doppler, spectral Doppler, and M-Mode transthoracic echocardiogram was performed. Contrast/Agitated Saline Contrast / Saline: Definity Amount: 1.00 ml Administered By: Jose G Casper Reaction to Contrast: no Staff Referring Physician: Rahul Hernandez Ordering Provider: Rahul Hernandez Attending Physician: Rahul Hernandez Interior Design Instructor: Jose G Casper Left Ventricle The left ventricle is normal in size. Left ventricular systolic function is normal with an estimated ejection fraction of 67 % by biplane method of disks. The left ventricular mass is normal with concentric remodeling. Left ventricular segmental wall motion is grossly normal, however endocardial definition is limited despite contrast. The left ventricular diastolic function is indeterminate. Right Ventricle The right ventricle is normal in size. Right ventricular systolic function is grossly normal. Left Atrium The left atrium is mildly dilated with a left atrial volume index of 39 ml/m2 by BP MOD. Right Atrium The right atrium is normal in size. Atrial Septum Interatrial septum not well visualized by 2D and color Doppler imaging. Aortic Valve The aortic valve is not well visualized. There is no aortic valve stenosis. There is no significant aortic valve regurgitation. Pulmonic Valve The pulmonic valve is not well visualized. There is no pulmonic valve stenosis. There is no significant pulmonic regurgitation. Mitral Valve By history there is a unknown size bioprosthetic valve in the mitral position. The valve is well seated, the leaflets are not well visualized, with no significant regurgitation, and no paravalvular regurgitation. MVR indices; a dimensionless index (DI) of 1.18, a valve area of 2.50 cm2, a mean gradient of 2 mmHg. Findings are consistent with normal valve function. Tricuspid Valve The tricuspid valve is grossly normal. There is no significant tricuspid valve regurgitation. Unable to assess pulmonary pressures due to a lack of tricuspid and pulmonic regurgitation. Inferior Vena Cava The inferior vena cava is dilated (> 2.1 cm). Pericardium/Pleural There is no pericardial effusion. Aorta The aortic root at the sinus of Valsalva is normal in size. The ascending aorta is normal in size. Measurements Left Ventricular Outflow Tract Name Value Normal LVOT 2D LVOT Diameter 1.9 cm LVOT Area 3.0 cm2 LVOT Doppler LVOT Peak Velocity 1.3 m/s LVOT Peak Gradient 6 mmHg LVOT Mean Velocity 88.94 cm/s LVOT Mean Gradient 4 mmHg LVOT VTI 21.3 cm LVOT VTI/AV VTI Ratio 0.8 LVOT Stroke Volume 63 ml LVOT Stroke Volume Index 31 ml/m2 35-58 LVOT CO 4.9 l/min LVOT CI 2.4 l/min/m2 Pulmonic Valve Name Value Normal PV 2D RVOT Diameter (2D) 2.4 cm 1.7-2.7 RVOT Doppler RVOT Peak Velocity 0.9 m/s RVOT Peak Gradient 3 mmHg RVOT Mean Gradient 1 mmHg PV Doppler PV Peak Velocity 1.0 m/s PV Peak Gradient 4 mmHg PV Mean Gradient 2 mmHg PV Area (Cont Eq VTI) 5.04 cm2 PV Area Index (Cont Eq VTI) 2.46 cm2/m2 PV Area (Cont Eq Valeriano) 4.0 cm2 PV Area Index (Cont Eq Valeriano) 1.95 cm2/m2 Mitral Valve Name Value Normal MV Doppler MV Peak Gradient 6 mmHg MV Mean Gradient 2 mmHg MV DI (VTI) 1.18 MV Area (Cont Eq VTI) 2.50 cm2 MV Diastolic Function MV E Peak Velocity 1.2 m/sec MV A Peak Velocity 1.0 m/sec MV E/A 1.3 MV Decel Time (PW) 187 ms MV A Wave Duration 77 ms MV Annular TDI MV Septal e' Velocity 7 cm/s >=8 MV E/e' (Septal) 19 <=8 MV Lateral e' Velocity 4 cm/s >=10 MV E/e' (Lateral) 30 <=8 MV e' Average 5 cm/s MV E/e' (Average) 24 Tricuspid Valve Name Value Normal TV Annular TDI TV Lateral Ashley s' Velocity 9 cm/s 10-19 Aorta Name Value Normal Ascending Aorta Asc Ao Diameter 3.2 cm 2.2-3.8 Asc Ao Diameter Index 1.6 cm/m2 1.1-1.9 Septae/Shunt/Generic Name Value Normal Qp/Qs Qp/Qs 1.1 Venous Name Value Normal IVC/SVC IVC Diameter 2.3 cm <=2.1 Aortic Valve Name Value Normal AV Doppler AV Peak Velocity 1.54 m/s AV Peak Gradient 9 mmHg AV Mean Gradient 6 mmHg AV VTI 27 cm AV Area (Cont Eq VTI) 2.31 cm2 >=2.00 AV Area (Cont Eq Valeriano) 2.42 cm2 AV DI (VTI) 0.78 AV DI (Valeriano) 0.82 AV Regurgitation 2D LVOT Area 2.95 cm2 Ventricles Name Value Normal LV Dimensions 2D/MM IVS Diastolic Thickness (2D) 1.0 cm 0.6-1.0 LVID Diastole (2D) 4.3 cm 4.2-5.8 LVPW Diastolic Thickness (2D) 1.2 cm 0.6-1.0 IVS Systolic Thickness (2D) 0.9 cm LVID Systole (2D) 2.9 cm 2.5-4.0 LVPW Systolic Thickness (2D) 1.2 cm LV Mass (2D Cubed) 101 g 88-224 LV Mass Index (2D Cubed) 49 g/m2 49-115 Relative Wall Thickness (2D) 0.55 <=0.42 LV Fractional Shortening/Ejection Fraction 2D/MM LV Fractional Shortening (2D) 33 % 25-43 LV EF (2D Teicholz) 62 % 52-72 LV Diastolic Volume (4C MOD) 143 ml LV EF (4C MOD) 73 % LV Diastolic Volume (2C MOD) 101 ml LV EF (2C MOD) 60 % LV Diastolic Volume (BP MOD) 123 ml 62-150 LV Diastolic Volume Index (BP MOD) 60 ml/m2 34-74 LV Systolic Volume (BP MOD) 40 ml 21-61 LV Systolic Volume Index (BP MOD) 20 ml/m2 11-31 LV EF (BP MOD) 67 % 52-72 LV Diastolic Length (4C) 9.2 cm LV Systolic Length (4C) 7.3 cm LV Stroke Volume (4C MOD) 104 ml RV Dimensions 2D/MM RVID Diastole (2D) 3.3 cm 2.5-3.5 RVID Systole (2D) 2.5 cm RV Basal Diastolic Dimension 3.5 cm 2.5-4.1 RV Diastolic Length (4C) 6.3 cm 5.9-8.3 TAPSE 1.4 cm >=1.7 Atria Name Value Normal LA Dimensions LA Dimension (2D) 4.1 cm 3.0-4.1 LA Dimen Index (2D) 2.0 cm/m2 LA Volume (BP MOD) 79 ml LA Volume Index (BP MOD) 39 ml/m2 16-34 RA Dimensions RA Area (4C) 17 cm2 <=18 RA Area (4C) Index 8 cm2/m2 Report Signatures Finalized by Raul Harmon on 03/20/2025 04:35 AM Procedure Note Raul Harmon MD - 03/20/2025 Summary * The left ventricle is normal in size, with normal systolic functionand an estimated ejection fraction of 67 % by biplane method of disks. Left ventricular wall motion is grossly normal, however endocardial definitionis limited despite contrast. * The left ventricular mass is normal with concentric remodeling. * Right ventricle is normal in size with grossly normal systolicfunction. * By history there is a unknown size bioprosthetic valve in the mitral position. The valve is well seated, the leaflets are not well visualized,with no significant regurgitation, and no paravalvular regurgitation. MVRindices; a dimensionless index (DI) of 1.18, a valve area of 2.50 cm2, a meangradient of 2 mmHg. Findings are consistent with normal valve function. * The inferior vena cava is dilated (> 2.1 cm). * There is no pericardial effusion. Patient Info Name: Marshall Espinal Age: 65 years : 1960 Gender: Male Ht: 67 in Wt: 191 lb BSA: 2.05 m2 HR: 77 bpm BP: 117 / 81 mmHg Heart Rhythm: Sinus Rhythm Exam Date: 03/19/2025 10:16 AM Patient Status: I/P Study Site: [facility] Primary Location: [facility] Info Technical Quality: Fair Exam Type: ECHO COMPLETE W CONTRAST Indications I34.0 - Mitral valve insufficiency, unspecified etiology Procedure(s) * A complete 2D, color Doppler, spectral Doppler, and M-Modetransthoracic echocardiogram was performed. Contrast/Agitated Saline Contrast / Saline: Definity Amount: 1.00 ml Administered By: Jose G Casper Reaction to Contrast: no Staff Referring Physician: Rahul Hernandez Ordering Provider: Rahul Hernandez Attending Physician: Rahul Hernandez Interior Design Instructor: Jose G Casper Left Ventricle The left ventricle is normal in size. Left ventricular systolic functionis normal with an estimated ejection fraction of 67 % by biplane method ofdisks. The left ventricular mass is normal with concentric remodeling. Left ventricular segmental wall motion is grossly normal, however endocardial definition is limited despite contrast. The left ventricular diastolic function is indeterminate. Right Ventricle The right ventricle is normal in size. Right ventricular systolicfunction is grossly normal. Left Atrium The left atrium is mildly dilated with a left atrial volume index of39 ml/m2 by BP MOD. Right Atrium The right atrium is normal in size. Atrial Septum Interatrial septum not well visualized by 2D and color Dopplerimaging. Aortic Valve The aortic valve is not well visualized. There is no aortic valvestenosis. There is no significant aortic valve regurgitation. Pulmonic Valve The pulmonic valve is not well visualized. There is no pulmonic valve stenosis. There is no significant pulmonic regurgitation. Mitral Valve By history there is a unknown size bioprosthetic valve in the mitral position. The valve is well seated, the leaflets are not well visualized,with no significant regurgitation, and no paravalvular regurgitation. MVRindices; a dimensionless index (DI) of 1.18, a valve area of 2.50 cm2, a meangradient of 2 mmHg. Findings are consistent with normal valve function. Tricuspid Valve The tricuspid valve is grossly normal. There is no significanttricuspid valve regurgitation. Unable to assess pulmonary pressures due to a lackof tricuspid and pulmonic regurgitation. Inferior Vena Cava The inferior vena cava is dilated (> 2.1 cm). Pericardium/Pleural There is no pericardial effusion. Aorta The aortic root at the sinus of Valsalva is normal in size. Theascending aorta is normal in size. Measurements Left Ventricular Outflow Tract Name Value Normal LVOT 2D LVOT Diameter 1.9 cm LVOT Area 3.0 cm2 LVOT Doppler LVOT Peak Velocity 1.3 m/s LVOT Peak Gradient 6 mmHg LVOT Mean Velocity 88.94 cm/s LVOT Mean Gradient 4 mmHg LVOT VTI 21.3 cm LVOT VTI/AV VTI Ratio 0.8 LVOT Stroke Volume 63 ml LVOT Stroke Volume Index 31 ml/m2 35-58 LVOT CO 4.9 l/min LVOT CI 2.4 l/min/m2 Pulmonic Valve Name Value Normal PV 2D RVOT Diameter (2D) 2.4 cm 1.7-2.7 RVOT Doppler RVOT Peak Velocity 0.9 m/s RVOT Peak Gradient 3 mmHg RVOT Mean Gradient 1 mmHg PV Doppler PV Peak Velocity 1.0 m/s PV Peak Gradient 4 mmHg PV Mean Gradient 2 mmHg PV Area (Cont Eq VTI) 5.04 cm2 PV Area Index (Cont Eq VTI) 2.46 cm2/m2 PV Area (Cont Eq Valeriano) 4.0 cm2 PV Area Index (Cont Eq Valeriano) 1.95 cm2/m2 Mitral Valve Name Value Normal MV Doppler MV Peak Gradient 6 mmHg MV Mean Gradient 2 mmHg MV DI (VTI) 1.18 MV Area (Cont Eq VTI) 2.50 cm2 MV Diastolic Function MV E Peak Velocity 1.2 m/sec MV A Peak Velocity 1.0 m/sec MV E/A 1.3 MV Decel Time (PW) 187 ms MV A Wave Duration 77 ms MV Annular TDI MV Septal e' Velocity 7 cm/s >=8 MV E/e' (Septal) 19 <=8 MV Lateral e' Velocity 4 cm/s >=10 MV E/e' (Lateral) 30 <=8 MV e' Average 5 cm/s MV E/e' (Average) 24 Tricuspid Valve Name Value Normal TV Annular TDI TV Lateral Ashley s' Velocity 9 cm/s 10-19 Aorta Name Value Normal Ascending Aorta Asc Ao Diameter 3.2 cm 2.2-3.8 Asc Ao Diameter Index 1.6 cm/m2 1.1-1.9 Septae/Shunt/Generic Name Value Normal Qp/Qs Qp/Qs 1.1 Venous Name Value Normal IVC/SVC IVC Diameter 2.3 cm <=2.1 Aortic Valve Name Value Normal AV Doppler AV Peak Velocity 1.54 m/s AV Peak Gradient 9 mmHg AV Mean Gradient 6 mmHg AV VTI 27 cm AV Area (Cont Eq VTI) 2.31 cm2 >=2.00 AV Area (Cont Eq Valeriano) 2.42 cm2 AV DI (VTI) 0.78 AV DI (Valeriano) 0.82 AV Regurgitation 2D LVOT Area 2.95 cm2 Ventricles Name Value Normal LV Dimensions 2D/MM IVS Diastolic Thickness (2D) 1.0 cm 0.6-1.0 LVID Diastole (2D) 4.3 cm 4.2-5.8 LVPW Diastolic Thickness (2D) 1.2 cm 0.6-1.0 IVS Systolic Thickness (2D) 0.9 cm LVID Systole (2D) 2.9 cm 2.5-4.0 LVPW Systolic Thickness (2D) 1.2 cm LV Mass (2D Cubed) 101 g 88-224 LV Mass Index (2D Cubed) 49 g/m2 49-115 Relative Wall Thickness (2D) 0.55 <=0.42 LV Fractional Shortening/Ejection Fraction 2D/MM LV Fractional Shortening (2D) 33 % 25-43 LV EF (2D Teicholz) 62 % 52-72 LV Diastolic Volume (4C MOD) 143 ml LV EF (4C MOD) 73 % LV Diastolic Volume (2C MOD) 101 ml LV EF (2C MOD) 60 % LV Diastolic Volume (BP MOD) 123 ml 62-150 LV Diastolic Volume Index (BP MOD) 60 ml/m2 34-74 LV Systolic Volume (BP MOD) 40 ml 21-61 LV Systolic Volume Index (BP MOD) 20 ml/m2 11-31 LV EF (BP MOD) 67 % 52-72 LV Diastolic Length (4C) 9.2 cm LV Systolic Length (4C) 7.3 cm LV Stroke Volume (4C MOD) 104 ml RV Dimensions 2D/MM RVID Diastole (2D) 3.3 cm 2.5-3.5 RVID Systole (2D) 2.5 cm RV Basal Diastolic Dimension 3.5 cm 2.5-4.1 RV Diastolic Length (4C) 6.3 cm 5.9-8.3 TAPSE 1.4 cm >=1.7 Atria Name Value Normal LA Dimensions LA Dimension (2D) 4.1 cm 3.0-4.1 LA Dimen Index (2D) 2.0 cm/m2 LA Volume (BP MOD) 79 ml LA Volume Index (BP MOD) 39 ml/m2 16-34 RA Dimensions RA Area (4C) 17 cm2 <=18 RA Area (4C) Index 8 cm2/m2 Report Signatures Finalized by Raul Harmon on 03/20/2025 04:35 AM us Rahul Hernandez MD ECHO CHELY marino Result * GLUCOSE - POINT OF CARE (03/19/2025 8:22 AM CDT) Glucose WB/POC 89 70 - 99 mg/dL 03/19/2025 8:27 AM CDT [facility] Specimen Type Arterial/C apillary 03/19/2025 8:27 AM CDT [facility] Blood BLOOD SPECIMEN / Unknown 03/19/2025 8:22 AM CDT 03/19/2025 8:27 AM CDT us Rahul Hernandez MD LAB - POINT OF CARE ORDERABLES Final Result [facility] [address] [place] [address], [facility] [phone] * EKG 12-Lead (03/19/2025 5:45 AM CDT) Pathologist [facility] Ventricular Rate 104 BPM [facility] MUSE QRS Duration ms 84 ms [facility] MUSE Q-T Interval ms 352 ms [facility] MUSE QTC Calculation (Bezet) 462 ms [facility] MUSE Calculated R [place] 24 degrees [facility] MUSE Calculated T [place] 24 degrees [facility] M[facility] Interpretation EKG ACCELERATED JUNCTIONAL RHYTHM WITH RETROGRADE CONDUCTION NONSPECIFIC ST ABNORMALITY ABNORMAL ECG WHEN COMPARED WITH ECG OF 19-MAR-2025 05:44, NO SIGNIFICANT CHANGE COMPARED WITH PRIOR EKG Confirmed by PRASAD LOUIS MD ([id number]) on 03/20/2025 9:55:31 PM [facility] MUSE 03/19/2025 5:45 AM CDT 03/20/2025 9:55 PM CDT Yesica Bearden APRN-[employer] ECG ORDERABLES Edit ed Result - Final Performing Organization Address City/[facility]/ZIP Co de Phone Number [facility] * (ABNORMAL) HEPATIC FUNCTION PANEL (03/19/2025 4:28 AM CDT) Pathologist [facility] Protein Total 6.2 6.0 - 8.3 g/dL 025 7:34 AM CDT [facility] Albumin 3.1(L) 3.4 - 5.0 g/dL 03/19/2025 7:34 AM CDT [facility] Bilirubin Total 0.4 0.2 - 1.2 mg/dL 02/19 7:34 AM CDT [facility] Bilirubin Conjugated 0.2 0.1 - 0.5 mg/dL 03/19/2025 7:34 AM CDT [facility] Bilirubin Unconjugated 0.2 Unconjugated Bilirubin is a calculated value: Reference ranges have not been established. mg/dL 03/19/2025 7:34 AM [facility] Alkaline Phosphatase 198(H) 40 - 150 U/L 03/19/2025 7:34 AM [facility] ALT 166(H) 5 - 55 U/L 03/19/2025 7:34 AM [facility] AST 173(H) 5 - 34 U/L 03/19/2025 7:34 AM [facility] Albumin/Globulin Ratio 1.0(L) 1.1 - 2.3 03/19/2025 7:34 AM [facility] Blood BLOOD SPECIMEN / Unknown Venipuncture / Unknown 03/19/2025 4:28 AM CDT 03/19/2025 4:38 AM T Jennyfer [place] DO LAB - CHEMISTRY ORDERABLES Final Result [address] [address] [phone] * (ABNORMAL) BASIC METABOLIC PANEL (CALCIUM TOTAL) (03/19/2025 4:28 AM CDT) BUN 48(H) 7 - 26 mg/dL 03/19/2025 6:35 AM [facility] Creatinine 3.00(H) 0.71 - 1.16 mg/dL 03/19/2025 6:35 AM [facility] Sodium 134(L) 136 - 145 mmol/L 03/19/2025 6:35 AM [facility] Potassium 3.9 3.5 - 4.5 mmol/L 03/19/2025 6:35 AM [facility] Chloride 103 98 - 107 mmol/L 03/19/2025 6:35 AM [facility] CO2 22 22 - 29 mmol/L 03/19/2025 6:35 AM [facility] Glucose 90 70 - 99 mg/dL 03/19/2025 6:35 AM [facility] Calcium 8.7 8.4 - 10.2 mg/dL 03/19/2025 6:35 AM [facility] Anion Gap 9 6 - 16 03/19/2025 6:35 AM [facility] BUN/Creatinine Ratio 16 7 - 23 03/19/2025 6:35 AM [facility] Osmolality Calculated 290 275 - 295 mOsm/kg 03/19/2025 6:35 AM [facility] eGFR by CKD-EPI 22(L) >=90 mL/min/1.7 3 m2 03/19/2025 6:35 AM [facility] Comment:Estimated Glomerular Filtration Rate (eGFR) calculated using the CKD-EPI Creatinine Equation (2020), per the National Kidney Foundation and [employer] Society of Nephrology recommendations. Blood BLOOD SPECIMEN / Unknown Venipuncture / Unknown 03/19/2025 4:28 AM CDT 03/19/2025 4:38 AM CDT Rahul Hernandez MD LAB - CHEMISTRY ORD ERABLES Final Result Performing Organization Address City/[facility]/ZIP Co de Phone Number [address] [address], [place] [phone] * (ABNORMAL) PT-INR (03/19/2025 4:28 AM CDT) PT 15.8(H) 12.1 - 14.8 Seconds 03/19/2025 5:11 AM [facility] INR 1.3 See Comment 03/19/2025 5:11 AM [facility] Comment:The suggested therap eutic range for standard coumadin (warfarin) therapy is an INR of 2.0-3.0. For high-risk patients (Mechanical Mitral Valve Prosthesis, etc.), the suggested prophylactic therapeutic range is an INR of 2.5-3.5. Blood BLOOD SPECIMEN / Unknown Venipuncture / Unknown 03/19/2025 4:28 AM CDT 03/19/2025 4:41 AM CDT us Rahul Hernandez MD LAB - COAGULATION O RDERABLES Final Result [address] [address], [place] [phone] * PHOSPHORUS BLOOD (03/19/2025 4:28 AM CDT) Phosphorus 3.0 2.8 - 5.1 mg/dL 03/19/2025 5:17 AM CDT [facility] Blood BLOOD SPECIMEN / Unknown Venipuncture / Unknown 03/19/2025 4:28 AM CDT 03/19/2025 4:38 AM CDT Mariya Botello PA-C LAB - CHEMISTRY ORDERABLES F inal Result Performing Organization Address City/[facility]/ZIP Co de Phone Number [address] [address], [facility] [phone] * MAGNESIUM BLOOD (03/19/2025 4:28 AM CDT) Pathologist [facility] Magnesium 1.9 1.6 - 2.6 mg/dL 03/19/2025 5:17 AM CDT [facility] Blood BLOOD SPECIMEN / Unknown Venipuncture / Unknown 03/19/2025 4:28 AM CDT 03/19/2025 4:38 AM CDT Mariya Botello PA-C LAB - CHEMISTRY ORDERABLES F inal Result Performing Organization Address City/[facility]/ZIP Co de Phone Number [address] [address], [facility] [phone] * (ABNORMAL) CBC W/O DIFFERENTIAL (03/19/2025 4:28 AM CDT) Pathologist [facility] WBC 13.5(H) 4.0 - 10.7 x10E9/L 03/19/2025 4:48 AM CDT [facility] RBC Count 2.88(L) 4.30 - 5.80 x10E12/L 03/19/2025 4:48 AM CDT [facility] Hemoglobin 8.0(L) 13.3 - 17.5 g/dL 03/19/2025 4:48 AM CDT [facility] Hematocrit 24.5(L) 38.7 - 51.1 % 03/19/2025 4:48 AM [facility] MCV 85.1 80.0 - 98.0 fL 03/19/2025 4:48 AM [facility] MCH 27.8 26.7 - 33.6 pg 03/19/2025 4:48 AM [facility] MCHC 32.7 31.7 - 36.3 g/dL 03/19/2025 4:48 AM [facility] RDW-CV 19.8(H) 11.3 - 14.8 % 03/19/2025 4:48 AM [facility] Platelet Count 179 150 - 420 x10E9/L 03/19/2025 4:48 AM [facility] MPV 10.8 7.8 - 11.4 fL 03/19/2025 4:48 AM [facility] NRBC 1.0(H) <=0.0 /100 WBC 03/19/2025 4:48 AM [facility] Blood BLOOD SPECIMEN / Unknown Venipuncture / Unknown 03/19/2025 4:28 AM CDT 03/19/2025 4:41 AM CDT Mariya Botello PA-C LAB - HEMATOLOGY ORDERABLES Final Result [facility] [address] [place] [address], [facility] [phone] * CALCIUM IONIZED WHOLE BLOOD (03/19/2025 4:28 AM CDT) Calcium Ionized 1.22 mmol/L 03/19/2025 4:41 AM CDT [facility] pH 7.39 7.35 - 7.45 pH 03/19/2025 4:41 AM [facility] Ionized Calcium pH Adjusted 1.22 1.19 - 1.34 mmol/L 03/19/2025 4:41 AM [facility] Blood BLOOD SPECIMEN / Unknown Venipuncture / Unknown 03/19/2025 4:28 AM CDT 03/19/2025 4:38 AM CDT us Mariya Botello PA-C LAB - CHEMISTRY ORDERABLES F inal Result [facility] [place] [id number] [place] [address], [facility] [phone] * XR Chest 1Vw Portable (03/19/2025 4:27 AM CDT) Anatomical Region Laterality Modality Chest Digital Radiogra phy 03/19/2025 10:4 8 AM CDT Narrative 03/19/2025 12:06 PM CDT PROCEDURE: XR CHEST 1VW PORTABLE, XR CHEST 1VW PORTABLE, XR CHEST 1VW PORTABLE, DATE/TIME OF EXAM: 03/18/2025 2:11 PM, LOCATION [facility] 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 FINDINGS/IMPRESSION: Chest x-ray 03/18/2025 at 1:47 PM: Support devices: Right internal jugular vein central venous catheter with the tip in distal SVC. Cardiac prosthetic valve. Sternotomy wires and plates. Mediastinal drain removed. Mild pulmonary congestion and edema. Similar retrocardiac opacity likely atelectasis and/or airspace disease. Small bilateral effusions. No pneumothorax. Cardiomediastinal silhouette is stable. Degenerative changes in thoracic spine. Overall findings similar to the prior exam. Chest x-ray 03/18/2025 at 6:51 PM: No significant change compared to prior exam. Chest x-ray 03/19/2025 at 4:01 AM: Interval increase in right basilar atelectasis. Pulmonary congestion/edema also worsened. No other significant change compared to prior exam. > Dictated by Jose Watson MD (associate professor of radiology). > Dictated by Lighting Equipment Operator I, Kelton Paredes have personally reviewed and interpreted this examination/study. 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 FINDINGS/IMPRESSION: Chest x-ray 03/18/2025 at 1:47 PM: Support devices: Right internal jugular vein central venous catheter with the tip indistal SVC. Cardiac prosthetic valve. Sternotomy wires and plates. Mediastinal drain removed. Mild pulmonary congestion and edema. Similar retrocardiac opacity likely atelectasis and/or airspace disease. Small bilateral effusions. No pneumothorax. Cardiomediastinal silhouette is stable. Degenerativechanges in thoracic spine. Overall findings similar to the prior exam. Chest x-ray 03/18/2025 at 6:51 PM: No significant change compared to prior exam. Chest x-ray 03/19/2025 at 4:01 AM: Interval increase in right basilar atelectasis. Pulmonarycongestion/edema also worsened. No other significant change compared to prior exam. > Dictated by Jose Watson MD (associate professor of radiology). > Dictated by Lighting Equipment Operator IKelton have personally reviewed and interpreted this examination/study. 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 FINDINGS/IMPRESSION: Chest x-ray 03/18/2025 at 1:47 PM: Support devices: Right internal jugular vein central venous catheter with the tip in distal SVC. Cardiac prosthetic valve. Sternotomy wires and plates. Mediastinal drain removed. Mild pulmonary congestion and edema. Similar retrocardiac opacity likely atelectasis and/or airspace disease. Small bilateral effusions. No pneumothorax. Cardiomediastinal silhouette is stable. Degenerative changes in thoracic spine. Overall findings similar to the prior exam. Chest x-ray 03/18/2025 at 6:51 PM: No significant change compared to prior exam. Chest x-ray 03/19/2025 at 4:01 AM: Interval increase in right basilar atelectasis. Pulmonary congestion/edema also worsened. No other significant change compared to prior exam. > Dictated by Jose Watson MD (associate professor of radiology). > Dictated by Lighting Equipment Operator Kelton Cason have personally reviewed and interpreted this examination/study. 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 FINDINGS/IMPRESSION: Chest x-ray 03/18/2025 at 1:47 PM: Support devices: Right internal jugular vein central venous catheter with the tip indistal SVC. Cardiac prosthetic valve. Sternotomy wires and plates. Mediastinal drain removed. Mild pulmonary congestion and edema. Similar retrocardiac opacity likely atelectasis and/or airspace disease. Small bilateral effusions. No pneumothorax. Cardiomediastinal silhouette is stable. Degenerativechanges in thoracic spine. Overall findings similar to the prior exam. Chest x-ray 03/18/2025 at 6:51 PM: No significant change compared to prior exam. Chest x-ray 03/19/2025 at 4:01 AM: Interval increase in right basilar atelectasis. Pulmonarycongestion/edema also worsened. No other significant change compared to prior exam. > Dictated by Jose Watson MD (associate professor of radiology). > Dictated by Lighting Equipment Operator I, eKlton Paredes have personally reviewed and interpreted this examination/study. > Interpreting Provider: Kelton Paredes on 03/19/2025 12:06 PM Rahul Hernandez MD DIAGNOSTIC IMAGING ORDERABLES Final Result * (ABNORMAL) GLUCOSE - POINT OF CARE (03/18/2025 5:26 PM CDT) Glucose WB/POC 110(H) 70 - 99 mg/dL 03/18/2025 5:31 PM CDT [facility] Specimen Type Arterial/C apillary 03/18/2025 5:31 PM CDT [facility] Blood BLOOD SPECIMEN / Unknown 03/18/2025 5:26 PM CDT 03/18/2025 5:31 PM CDT Rahul Hernandez MD LAB - POINT OF CARE ORDERABLES Final Result [address] [address], [facility] [phone] * XR Chest 1Vw Portable (03/18/2025 2:11 PM CDT) Anatomical Region Laterality Modality Chest Digital Radiogra phy 03/19/2025 10:4 8 AM CDT Narrative 03/19/2025 12:06 PM CDT PROCEDURE: XR CHEST 1VW PORTABLE, XR CHEST 1VW PORTABLE, XR CHEST 1VW PORTABLE, DATE/TIME OF EXAM: 03/18/2025 2:11 PM, LOCATION [facility] 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 FINDINGS/IMPRESSION: Chest x-ray 03/18/2025 at 1:47 PM: Support devices: Right internal jugular vein central venous catheter with the tip in distal SVC. Cardiac prosthetic valve. Sternotomy wires and plates. Mediastinal drain removed. Mild pulmonary congestion and edema. Similar retrocardiac opacity likely atelectasis and/or airspace disease. Small bilateral effusions. No pneumothorax. Cardiomediastinal silhouette is stable. Degenerative changes in thoracic spine. Overall findings similar to the prior exam. Chest x-ray 03/18/2025 at 6:51 PM: No significant change compared to prior exam. Chest x-ray 03/19/2025 at 4:01 AM: Interval increase in right basilar atelectasis. Pulmonary congestion/edema also worsened. No other significant change compared to prior exam. > Dictated by Jose Watson MD (associate professor of radiology). > Dictated by Lighting Equipment Operator IKelton have personally reviewed and interpreted this examination/study. 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 FINDINGS/IMPRESSION: Chest x-ray 03/18/2025 at 1:47 PM: Support devices: Right internal jugular vein central venous catheter with the tip indistal SVC. Cardiac prosthetic valve. Sternotomy wires and plates. Mediastinal drain removed. Mild pulmonary congestion and edema. Similar retrocardiac opacity likely atelectasis and/or airspace disease. Small bilateral effusions. No pneumothorax. Cardiomediastinal silhouette is stable. Degenerativechanges in thoracic spine. Overall findings similar to the prior exam. Chest x-ray 03/18/2025 at 6:51 PM: No significant change compared to prior exam. Chest x-ray 03/19/2025 at 4:01 AM: Interval increase in right basilar atelectasis. Pulmonarycongestion/edema also worsened. No other significant change compared to prior exam. > Dictated by Jose Watson MD (associate professor of radiology). > Dictated by Lighting Equipment Operator I, Kelton Paredes have personally reviewed and interpreted this examination/study. > Interpreting Provider: Kelton Paredes on 03/19/2025 12:06 PM Rahul Hernandez MD DIAGNOSTIC IMAGING ORDERABLES Final Result * (ABNORMAL) GLUCOSE - POINT OF CARE (03/18/2025 11:59 AM CDT) Glucose WB/POC 128(H) 70 - 99 mg/dL 03/18/2025 12:00 PM CDT [facility] Specimen Type Arterial/C apillary 03/18/2025 12:00 PM CDT [facility] Blood BLOOD SPECIMEN / Unknown 03/18/2025 11:59 AM CDT 03/18/2025 12:00 PM CDT Rahul Hernandez MD LAB - POINT OF CARE ORDERABLES Final Result [facility] [address] [address], [facility] [phone] * (ABNORMAL) GLUCOSE - POINT OF CARE (03/18/2025 8:44 AM CDT) Glucose WB/POC 112(H) 70 - 99 mg/dL 03/18/2025 8:48 AM CDT [facility] Specimen Type Arterial/C apillary 03/18/2025 8:48 AM CDT [facility] Blood BLOOD SPECIMEN / Unknown 03/18/2025 8:44 AM CDT 03/18/2025 8:48 AM CDT us Rahul Hernandez MD LAB - POINT OF CARE ORDERABLES Final Result [facility] [address] [place] [address], [facility] [phone] * XR Chest 1Vw Portable (03/18/2025 4:58 AM CDT) Anatomical Region Laterality Modality Chest Digital Radiogra phy 03/18/2025 1:18 PM CDT Narrative 03/18/2025 1:19 PM CDT PROCEDURE: XR CHEST 1VW PORTABLE DATE/TIME OF EXAM: 03/18/2025 4:58 AM CLINICAL INFORMATION: None relevant/not provided if blank. 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 Cardiac prosthetic valve again noted. Sternotomy wires and plates again noted. Mediastinal drain is unchanged. Low lung volumes and bronchovascular crowding. Mild pulmonary congestion and edema. Retrocardiac opacity related to atelectasis and/or airspace disease. Small bilateral pleural effusions. Overall aeration appears unchanged. No large pneumothorax. The cardiac silhouette remains mildly enlarged. The mediastinal silhouette is normal. Degenerative changes are noted in the thoracic spine. > Interpreting Provider: Kelton Paredes on 03/18/2025 1:19 PM Procedure Note Kelton Paredes MD - 03/18/2025 PROCEDURE: XR CHEST 1VW PORTABLE DATE/TIME OF EXAM: 03/18/2025 4:58 AM CLINICAL INFORMATION: None relevant/not provided if blank. 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 Cardiac prosthetic valve again noted. Sternotomy wires and plates again noted. Mediastinal drain is unchanged. Low lung volumes and bronchovascular crowding. Mild pulmonary congestion and edema. Retrocardiac opacity related to atelectasis and/or airspace disease. Small bilateral pleural effusions. Overall aeration appears unchanged. No large pneumothorax. The cardiac silhouette remains mildly enlarged. The mediastinal silhouette is normal. Degenerative changes are noted in the thoracic spine. > Interpreting Provider: Kelton Paredes on 03/18/2025 1:19 PM Nayan Hernandez [employer] DIAGNOSTIC IMAGING ORDERABLES Final Result * PHOSPHORUS BLOOD (03/18/2025 4:19 AM CDT) Phosphorus 3.2 2.8 - 5.1 mg/dL 03/18/2025 6:02 AM CDT [facility] Blood BLOOD SPECIMEN / Unknown Venipuncture / Unknown 03/18/2025 4:19 AM CDT 03/18/2025 4:27 AM CDT Mariya Botello PA-C LAB - CHEMISTRY ORDERABLES F inal Result [address] [address], [facility] [phone] * MAGNESIUM BLOOD (03/18/2025 4:19 AM CDT) Magnesium 2.2 1.6 - 2.6 mg/dL 03/18/2025 6:02 AM CDT [facility] Blood BLOOD SPECIMEN / Unknown Venipuncture / Unknown 03/18/2025 4:19 AM CDT 03/18/2025 4:27 AM CDT Mariya Botello PA-C LAB - CHEMISTRY ORDERABLES F inal Result [facility] [address] [place] [address], [facility] [phone] * (ABNORMAL) CBC W/O DIFFERENTIAL (03/18/2025 4:19 AM CDT) WBC 14.7(H) 4.0 - 10.7 x10E9/L 03/18/2025 4:43 AM [facility] RBC Count 2.93(L) 4.30 - 5.80 x10E12/L 03/18/2025 4:43 AM [facility] Hemoglobin 8.3(L) 13.3 - 17.5 g/dL 03/18/2025 4:43 AM [facility] Hematocrit 25.4(L) 38.7 - 51.1 % 03/18/2025 4:43 AM [facility] MCV 86.7 80.0 - 98.0 fL 03/18/2025 4:43 AM [facility] MCH 28.3 26.7 - 33.6 pg 03/18/2025 4:43 AM [facility] MCHC 32.7 31.7 - 36.3 g/dL 03/18/2025 4:43 AM [facility] RDW-CV 20.3(H) 11.3 - 14.8 % 03/18/2025 4:43 AM [facility] Platelet Count 172 150 - 420 x10E9/L 03/18/2025 4:43 AM [facility] MPV 11.0 7.8 - 11.4 fL 03/18/2025 4:43 AM [facility] NRBC 1.4(H) <=0.0 /100 WBC 03/18/2025 4:43 AM [facility] Blood BLOOD SPECIMEN / Unknown Venipuncture / Unknown 03/18/2025 4:19 AM CDT 03/18/2025 4:27 AM CDT us Mariya Botello PA-C LAB - HEMATOLOGY ORDERABLES Final Result Performing Organization Address [facility] Co de Phone Number [address] [address], [facility] [phone] * (ABNORMAL) CALCIUM IONIZED WHOLE BLOOD (03/18/2025 4:19 AM CDT) Calcium Ionized 1.25 mmol/L 03/18/2025 4:59 AM CDT [facility] pH 7.33(L) 7.35 - 7.45 pH 03/18/2025 4:59 AM T [facility] Ionized Calcium pH Adjusted 1.21 1.19 - 1.34 mmol/L 03/18/2025 4:59 AM T [facility] Blood BLOOD SPECIMEN / Unknown Venipuncture / Unknown 03/18/2025 4:19 AM CDT 03/18/2025 4:27 AM CDT Mariya Botello PA-C LAB - CHEMISTRY ORDERABLES F inal Result Performing Organization Address [facility] Co de Phone Number [address] [address], [facility] [phone] * (ABNORMAL) COMPREHENSIVE METABOLIC PANEL (03/18/2025 4:19 AM CDT) BUN 48(H) 7 - 26 mg/dL 03/18/2025 6:02 AM T [facility] Creatinine 3.07(H) 0.71 - 1.16 mg/dL 03/18/2025 6:02 AM [facility] Sodium 137 136 - 145 mmol/L 03/18/2025 6:02 AM T [facility] Potassium 4.3 3.5 - 4.5 mmol/L 03/18/2025 6:02 AM [facility] Chloride 108(H) 98 - 107 mmol/L 03/18/2025 6:02 AM T [facility] CO2 21(L) 22 - 29 mmol/L 03/18/2025 6:02 AM [facility] Glucose 93 70 - 99 mg/dL 03/18/2025 6:02 AM [facility] Calcium 8.7 8.4 - 10.2 mg/dL 03/18/2025 6:02 AM [facility] Protein Total 6.1 6.0 - 8.3 g/dL 03/18/2025 6:02 AM [facility] Albumin 3.3(L) 3.4 - 5.0 g/dL 03/18/2025 6:02 AM [facility] Bilirubin Total 0.3 0.2 - 1.2 mg/dL 03/18/2025 6:02 AM [facility] Alkaline Phosphatase 161(H) 40 - 150 U/L 03/18/2025 6:02 AM [facility] ALT 173(H) 5 - 55 U/L 03/18/2025 6:02 AM [facility] AST 251(H) 5 - 34 U/L 03/18/2025 6:02 AM [facility] Anion Gap 8 6 - 16 03/18/2025 6:02 AM [facility] BUN/Creatinine Ratio 16 7 - 23 03/18/2025 6:02 AM [facility] Osmolality Calculated 296(H) 275 - 295 mOsm/kg 03/18/2025 6:02 AM [facility] Albumin/Globulin Ratio 1.2 1.1 - 2.3 03/18/2025 6:02 AM [facility] eGFR by CKD-EPI 22(L) >=90 mL/min/1.7 3 m2 03/18/2025 6:02 AM [facility] Comment:Estimated Glomerular Filtration Rate (eGFR) calculated using the CKD-EPI Creatinine Equation (2020), per the National Kidney Foundation and [employer]ph[employer] recommendations. Blood BLOOD SPECIMEN / Unknown Venipuncture / Unknown 03/18/2025 4:19 AM CDT 03/18/2025 4:27 AM T Mariya McPike PA-C LAB - CHEMISTRY ORDERABLES F inal Result [address] [address], [place] [phone] * (ABNORMAL) GLUCOSE - POINT OF CARE (03/17/2025 8:36 PM CDT) Glucose WB/POC 129(H) 70 - 99 mg/dL 03/17/2025 8:37 PM CDT [facility] Specimen Type Arterial/C apillary 03/17/2025 8:37 PM CDT [facility] Blood BLOOD SPECIMEN / Unknown 03/17/2025 8:36 PM CDT 03/17/2025 8:37 PM CDT us Rahul Hernandez MD LAB - POINT OF CARE ORDERABLES Final Result Performing Organization Address City/[facility]/ZIP Co de Phone Number [address] [address], [place] [phone] * (ABNORMAL) GLUCOSE - POINT OF CARE (03/17/2025 6:40 PM CDT) Glucose WB/POC 124(H) 70 - 99 mg/dL 03/17/2025 6:41 PM CDT [facility] Specimen Type Arterial/C apillary 03/17/2025 6:41 PM CDT [facility] Blood BLOOD SPECIMEN / Unknown 03/17/2025 6:40 PM CDT 03/17/2025 6:41 PM CDT us Rahul Hernandez MD LAB - POINT OF CARE ORDERABLES Final Result [address] [address], [place] [phone] * (ABNORMAL) GLUCOSE - POINT OF CARE (03/17/2025 11:37 AM CDT) Glucose WB/POC 120(H) 70 - 99 mg/dL 03/17/2025 11:44 AM CDT [facility] Specimen Type Arterial/C apillary 03/17/2025 11:44 AM CDT [facility] Blood BLOOD SPECIMEN / Unknown 03/17/2025 11:37 AM CDT 03/17/2025 11:44 AM CDT Rahul Hernandez MD LAB - POINT OF CARE ORDERABLES Final Result Performing Organization Address City/[facility] [facility]/ZIP Co de Phone Number [address] [address], [place] [phone] * (ABNORMAL) GLUCOSE - POINT OF CARE (03/17/2025 7:55 AM CDT) Glucose WB/POC 107(H) 70 - 99 mg/dL 03/17/2025 7:57 AM CDT [facility] Specimen Type Arterial/C apillary 03/17/2025 7:57 AM CDT [facility] Blood BLOOD SPECIMEN / Unknown 03/17/2025 7:55 AM CDT 03/17/2025 7:57 AM CDT Rahul Hernandez MD LAB - POINT OF CARE ORDERABLES Final Result Performing Organization Address [facility]/ZIP Co de Phone Number [address] [address], [place] [phone] * PHOSPHORUS BLOOD (03/17/2025 4:21 AM CDT) Phosphorus 4.3 2.8 - 5.1 mg/dL 03/17/2025 5:09 AM CDT [facility] Blood BLOOD SPECIMEN / Unknown Venipuncture / Unknown 03/17/2025 4:21 AM CDT 03/17/2025 4:34 AM CDT us Mariya Botello PA-C LAB - CHEMISTRY ORDERABLES F inal Result Performing Organization Address City/[facility]/ZIP Co de Phone Number [address] [address], [place] [phone] * MAGNESIUM BLOOD (03/17/2025 4:21 AM CDT) Magnesium 2.4 1.6 - 2.6 mg/dL 03/17/2025 5:09 AM [facility] Blood BLOOD SPECIMEN / Unknown Venipuncture / Unknown 03/17/2025 4:21 AM CDT 03/17/2025 4:34 AM CDT Mariya Botello PA-C LAB - CHEMISTRY ORDERABLES F inal Result [facility] [address] [place] [address], [facility] [phone] * (ABNORMAL) CBC W/O DIFFERENTIAL (03/17/2025 4:21 AM CDT) WBC 14.3(H) 4.0 - 10.7 x10E9/L 03/17/2025 4:46 AM [facility] RBC Count 2.92(L) 4.30 - 5.80 x10E12/L 03/17/2025 4:46 AM [facility] Hemoglobin 8.1(L) 13.3 - 17.5 g/dL 03/17/2025 4:46 AM [facility] Hematocrit 23.8(L) 38.7 - 51.1 % 03/17/2025 4:46 AM [facility] MCV 81.5 80.0 - 98.0 fL 03/17/2025 4:46 AM [facility] MCH 27.7 26.7 - 33.6 pg 03/17/2025 4:46 AM [facility] MCHC 34.0 31.7 - 36.3 g/dL 03/17/2025 4:46 AM [facility] RDW-CV 19.8(H) 11.3 - 14.8 % 03/17/2025 4:46 AM [facility] Platelet Count 162 150 - 420 x10E9/L 03/17/2025 4:46 AM [facility] MPV 10.7 7.8 - 11.4 fL 03/17/2025 4:46 AM CDT [facility] NRBC 0.3(H) <=0.0 /100 WBC 03/17/2025 4:46 AM CDT [facility] Blood BLOOD SPECIMEN / Unknown Venipuncture / Unknown 03/17/2025 4:21 AM CDT 03/17/2025 4:34 AM CDT Mariya Botello PA-C LAB - HEMATOLOGY ORDERABLES Final Result Performing Organization Address [facility]/ZIP Co de Phone Number [address] [address], [place] [phone] * CALCIUM IONIZED WHOLE BLOOD (03/17/2025 4:21 AM CDT) Calcium Ionized 1.26 mmol/L 03/17/2025 4:30 AM CDT [facility] pH 7.40 7.35 - 7.45 pH 03/17/2025 4:30 AM T [facility] Ionized Calcium pH Adjusted 1.26 1.19 - 1.34 mmol/L 03/17/2025 4:30 AM T [facility] Blood BLOOD SPECIMEN / Unknown Venipuncture / Unknown 03/17/2025 4:21 AM CDT 03/17/2025 4:28 AM CDT Mariya Botello PA-C LAB - CHEMISTRY ORDERABLES F inal Result [address] [address], [place] [phone] * (ABNORMAL) COMPREHENSIVE METABOLIC PANEL (03/17/2025 4:21 AM CDT) BUN 35(H) 7 - 26 mg/dL 03/17/2025 5:09 AM T [facility] Creatinine 2.87(H) 0.71 - 1.16 mg/dL 03/17/2025 5:09 AM T [facility] Sodium 137 136 - 145 mmol/L 03/17/2025 5:09 AM [facility] Potassium 4.6(H) 3.5 - 4.5 mmol/L 03/17/2025 5:09 AM [facility] Chloride 109(H) 98 - 107 mmol/L 03/17/2025 5:09 AM [facility] CO2 19(L) 22 - 29 mmol/L 03/17/2025 5:09 AM [facility] Glucose 110(H) 70 - 99 mg/dL 03/17/2025 5:09 AM [facility] Calcium 8.9 8.4 - 10.2 mg/dL 03/17/2025 5:09 AM [facility] Protein Total 6.2 6.0 - 8.3 g/dL 03/17/2025 5:09 AM [facility] Albumin 3.7 3.4 - 5.0 g/dL 03/17/2025 5:09 AM [facility] Bilirubin Total 0.4 0.2 - 1.2 mg/dL 03/17/2025 5:09 AM [facility] Alkaline Phosphatase 69 40 - 150 U/L 03/17/2025 5:09 AM [facility] ALT 200(H) 5 - 55 U/L 03/17/2025 5:09 AM [facility] AST 434(H) 5 - 34 U/L 03/17/2025 5:09 AM [facility] Anion Gap 9 6 - 16 03/17/2025 5:09 AM [facility] BUN/Creatinine Ratio 12 7 - 23 03/17/2025 5:09 AM [facility] Osmolality Calculated 293 275 - 295 mOsm/kg 03/17/2025 5:09 AM [facility] Albumin/Globulin Ratio 1.5 1.1 - 2.3 03/17/2025 5:09 AM [facility] eGFR by CKD-EPI 24(L) >=90 mL/min/1.7 3 m2 03/17/2025 5:09 AM [facility] Comment:Estimated Glomerular Filtration Rate (eGFR) calculated using the CKD-EPI Creatinine Equation (2020), per the National Kidney Foundation and [employer] Society of Nephrology recommendations. Blood BLOOD SPECIMEN / Unknown Venipuncture / Unknown 03/17/2025 4:21 AM CDT 03/17/2025 4:34 AM CDT Mariya Botello PA-C LAB - CHEMISTRY ORDERABLES F inal Result [address] [address], [facility] [phone] * XR Chest 1Vw Portable (03/17/2025 4:10 AM CDT) Anatomical Region Laterality Modality Chest Digital Radiogra phy 03/17/2025 10:2 5 AM CDT Narrative 03/17/2025 10:42 AM CDT PROCEDURE: XR CHEST 1VW PORTABLE, DATE/TIME OF EXAM: 03/17/2025 4:10 AM, LOCATION [facility] INDICATION: I34.0: Mitral valve insufficiency, unspecified etiology J44.9: Chronic obstructive pulmonary disease, unspecified COPD type (HCC) ADDITIONAL CLINICAL INFORMATION: Ordering Provider Reason For Exam: f/u left pleural effusion with associated atelectasis Technologist Note: Additional: COMPARISON: Chest radiograph dated 03/16/2025 FINDINGS/IMPRESSION: *Median sternotomy plates and wires. *Mitral valve prosthesis. *Interval removal of [place]-Geovanny catheter. *Right internal jugular approach central venous catheter terminates in the superior cavoatrial junction. *Mediastinal drain. Low lung volumes with bronchovascular crowding. Increased bilateral interstitial opacities. Bibasilar atelectasis. Small left pleural effusion with retrocardiac opacification. No pneumothorax. The cardiomediastinal silhouette is stable. Degenerative changes are noted in the thoracic spine. > Dictated by Ivone Hinkle MD (associate professor of radiology) > Dictated by Lighting Equipment Operator IKelton have personally reviewed and interpreted this examination/study. > Interpreting Provider: Kelton Paredes on 03/17/2025 10:42 AM Procedure Note Kelton Paredes MD - 03/17/2025 PROCEDURE: XR CHEST 1VW PORTABLE, DATE/TIME OF EXAM: 03/17/2025 4:10AM, LOCATION [facility] INDICATION: I34.0: Mitral valve insufficiency, unspecified etiology J44.9: Chronic obstructive pulmonary disease, unspecified COPD type(HCC) ADDITIONAL CLINICAL INFORMATION: Ordering Provider Reason For Exam: f/u left pleural effusion with associated atelectasis Technologist Note: Additional: COMPARISON: Chest radiograph dated 03/16/2025 FINDINGS/IMPRESSION: *Median sternotomy plates and wires. *Mitral valve prosthesis. *Interval removal of [place]-Geovanny catheter. *Right internal jugular approach central venous catheter terminates inthe superior cavoatrial junction. *Mediastinal drain. Low lung volumes with bronchovascular crowding. Increased bilateral interstitial opacities. Bibasilar atelectasis. Small left pleuraleffusion with retrocardiac opacification. No pneumothorax. The cardiomediastinal silhouette is stable. Degenerative changes arenoted in the thoracic spine. > Dictated by Ivone Hinkle MD (associate professor of radiology) > Dictated by Lighting Equipment Operator I, Kelton Paredes have personally reviewed and interpreted this examination/study. > Interpreting Provider: Kelton Paredes on 03/17/2025 10:42 AM Result [facility] Nayan Flaquito Hernandez [employer] DIAGNOSTIC IMAGING ORDERABLES Final Result * TRANSFUSE RED BLOOD CELL LEUKOREDUCED UNIT(S) (03/16/2025 10:21 PM CDT) Rahul Hernandez MD NURSING - BLOOD PRO D TRANSFUSION Final Result * TRANSFUSE RED BLOOD CELL LEUKOREDUCED UNIT(S), 1 Units (03/16/2025 10:21 PM CDT) Rahul Hernandez MD NURSING - BLOOD PRO D TRANSFUSION Final Result * TYPE + SCREEN PANEL (03/16/2025 5:39 PM CDT) Antibody Screen NEG 6:34 PM CDT [facility]OD [facility] ABO Rh O POS 03/16/2025 6:34 PM CDT [facility] Blood Bank BLOOD SPECIMEN / Unknown Venipuncture / Unknown 03/16/2025 5:39 PM CDT 03/16/2025 5:51 PM CDT Rahul Hernandez MD LAB - BLOOD BANK OR DERABLES Final Result Performing Organization Address [facility]/ZIP Co de Phone Number [facility] [address] [place] [address], [place] [phone] * (ABNORMAL) GLUCOSE - POINT OF CARE (03/16/2025 5:07 PM CDT) Pathologist [facility] Glucose WB/POC 174(H) 70 - 99 mg/dL 03/16/2025 5:07 PM CDT [facility]OR[facility] Specimen Type Arterial/C apillary 03/16/2025 5:07 PM CDT [facility] Blood BLOOD SPECIMEN / Unknown 03/16/2025 5:07 PM CDT 03/16/2025 5:07 PM CDT Rahul Hernandez MD LAB - POINT OF CARE ORDERABLES Final Result Performing Organization Address [facility]/ZIP Co de Phone Number [facility] [address] [place] [address], [place] [phone] * (ABNORMAL) BASIC METABOLIC PANEL (CALCIUM TOTAL) (03/16/2025 4:34 PM CDT) Pathologist [facility] BUN 32(H) 7 - 26 mg/dL 03/16/2025 5:16 PM T [facility] Creatinine 2.85(H) 0.71 - 1.16 mg/dL 03/16/2025 5:16 PM T [facility] Sodium 139 136 - 145 mmol/L 03/16/2025 5:16 PM T [facility] Potassium 4.8(H) 3.5 - 4.5 mmol/L 03/16/2025 5:16 PM T [facility] Chloride 109(H) 98 - 107 mmol/L 03/16/2025 5:16 PM T [facility] CO2 15(L) 22 - 29 mmol/L 03/16/2025 5:16 PM CDT [facility] Glucose 132(H) 70 - 99 mg/dL 03/16/2025 5:16 PM [facility] Calcium 9.0 8.4 - 10.2 mg/dL 03/16/2025 5:16 PM [facility] Anion Gap 15 6 - 16 03/16/2025 5:16 PM [facility] BUN/Creatinine Ratio 11 7 - 23 03/16/2025 5:16 PM [facility] Osmolality Calculated 297(H) 275 - 295 mOsm/kg 03/16/2025 5:16 PM [facility] eGFR by CKD-EPI 24(L) >=90 mL/min/1.7 3 m2 03/16/2025 5:16 PM [facility] Comment:Estimated Glomerular Filtration Rate (eGFR) calculated using the CKD-EPI Creatinine Equation (2020), per the National Kidney Foundation and British Society of Nephrology recommendations. Blood BLOOD SPECIMEN / Unknown Venipuncture / Unknown 03/16/2025 4:34 PM CDT 03/16/2025 4:40 PM CDT Geeta Trejo [employer] LAB - CHEMISTRY ORDER JAYME Final Result [facility] [address] [place] [address], [facility] [phone] * (ABNORMAL) CBC W/O DIFFERENTIAL (03/16/2025 4:34 PM CDT) WBC 16.2(H) 4.0 - 10.7 x10E9/L 03/16/2025 5:04 PM [facility] RBC Count 2.64(L) 4.30 - 5.80 x10E12/L 03/16/2025 5:04 PM [facility] Hemoglobin 7.6(L) 13.3 - 17.5 g/dL 03/16/2025 5:04 PM [facility] Hematocrit 22.2(L) 38.7 - 51.1 % 03/16/2025 5:04 PM [facility] MCV 84.1 80.0 - 98.0 fL 03/16/2025 5:04 PM [facility] MCH 28.8 26.7 - 33.6 pg 03/16/2025 5:04 PM CDT [facility] MCHC 34.2 31.7 - 36.3 g/dL 03/16/2025 5:04 PM CDT [facility] RDW-CV 17.4(H) 11.3 - 14.8 % 03/16/2025 5:04 PM CDT [facility] Platelet Count 189 150 - 420 x10E9/L 03/16/2025 5:04 PM CDT [facility] MPV 10.5 7.8 - 11.4 fL 03/16/2025 5:04 PM CDT [facility] Blood BLOOD SPECIMEN / Unknown Venipuncture / Unknown 03/16/2025 4:34 PM CDT 03/16/2025 4:40 PM CDT us Geeta Trejo [employer] LAB - HEMATOLOGY ORDE RABLES Final Result [address] [address], [facility] [phone] * (ABNORMAL) GLUCOSE - POINT OF CARE (03/16/2025 11:38 AM CDT) [facility] Glucose WB/POC 188(H) 70 - 99 mg/dL 03/16/2025 11:43 AM CDT [facility] Specimen Type Arterial/C apillary 03/16/2025 11:43 AM CDT [facility] Blood BLOOD SPECIMEN / Unknown 03/16/2025 11:38 AM CDT 03/16/2025 11:43 AM CDT us Rahul Hernandez MD LAB - POINT OF CARE ORDERABLES Final Result [address] [address], [place] [phone] * TRANSFUSE RED BLOOD CELL LEUKOREDUCED UNIT(S) (03/16/2025 11:36 AM CDT) us Nayan Hernandez [employer] NURSING - BLOOD PRO D TRANSFUSION Final Result * TRANSFUSE RED BLOOD CELL LEUKOREDUCED UNIT(S), 1 Units (03/16/2025 11:36 AM CDT) Result [facility] Nayanbita Hernandez APRN-[facility] NURSING - BLOOD PRO D TRANSFUSION Final Result * (ABNORMAL) GLUCOSE - POINT OF CARE (03/16/2025 9:10 AM CDT) Glucose WB/POC 133(H) 70 - 99 mg/dL 03/16/2025 9:13 AM CDT [facility] Specimen Type Arterial/C apillary 03/16/2025 9:13 AM CDT [facility] Blood BLOOD SPECIMEN / Unknown 03/16/2025 9:10 AM CDT 03/16/2025 9:13 AM CDT Rahul Hernandez MD LAB - POINT OF CARE ORDERABLES Final Result [address] [address], [facility] [phone] * EKG 12-LEAD (03/16/2025 8:52 AM CDT) Ventricular Rate 82 BPM [facility] MUSE QRS Duration ms 82 ms [facility] MUSE Q-T Interval ms 400 ms [facility] MUSE QTC Calculation (Bezet) 467 ms [facility] MUSE Calculated R [place] 18 degrees SL MUSE Calculated T [place] 26 degrees [facility] MUSE Interpretation EKG ACCELERATED JUNCTIONAL RHYTHM ABNORMAL ECG WHEN COMPARED WITH ECG OF 16-MAR-2025 02:58, NO SIGNIFICANT CHANGE COMPARED WITH PRIOR EKG Confirmed by MISSY ALFARO, PRASAD ([id number]) on 03/20/2025 6:31:14 PM [facility] MUSE 03/16/2025 8:52 AM CDT 03/20/2025 6:31 PM CDT Mariya Botello PA-C ECG ORDERABLES Edited Resul t - Final [facility] MUSE * (ABNORMAL) GLUCOSE - POINT OF CARE (03/16/2025 8:05 AM CDT) Glucose WB/POC 132(H) 70 - 99 mg/dL 03/16/2025 8:09 AM CDT [facility] Specimen Type Arterial/C apillary 03/16/2025 8:09 AM CDT [facility] Blood BLOOD SPECIMEN / Unknown 03/16/2025 8:05 AM CDT 03/16/2025 8:09 AM CDT Rahul Hernandez MD LAB - POINT OF CARE ORDERABLES Final Result [address] [address], [place] [phone] * (ABNORMAL) GLUCOSE - POINT OF CARE (03/16/2025 5:36 AM CDT) Glucose WB/POC 154(H) 70 - 99 mg/dL 03/16/2025 5:36 AM CDT [facility] Specimen Type Arterial/C apillary 03/16/2025 5:36 AM CDT [facility] Blood BLOOD SPECIMEN / Unknown 03/16/2025 5:36 AM CDT 03/16/2025 5:36 AM CDT Rahul Hernandez MD LAB - POINT OF CARE ORDERABLES Final Result [address] [address], [place] [phone] * XR CHEST 1VW PORTABLE (03/16/2025 4:32 AM CDT) Anatomical Region Laterality Modality Chest Digital Radiogra phy 03/16/2025 8:36 AM CDT Narrative 03/16/2025 8:38 AM CDT PROCEDURE: XR CHEST 1VW PORTABLE DATE/TIME OF EXAM: 03/16/2025 4:32 AM CLINICAL INFORMATION: None relevant/not provided if blank. 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 FINDINGS/IMPRESSION: Lines, tubes, hardware: *Intact midline sternotomy wires and mediastinal surgical clips. *A right internal jugular approach [place]-Geovanny catheter is seen with the tip superimposing the right pulmonary artery. *Right-sided internal jugular central venous line with the tip in the superior cavoatrial junction. *Interval placement of mitral valve replacement. *Interval removal of the endotracheal and nasogastric tubes. Small volume layering left pleural effusion with associated atelectasis of the left lower lung, slightly improved compared to prior. Mild right basilar atelectasis. No right pleural effusion. There is no pneumothorax. The cardiomediastinal silhouette is unchanged. > Dictated by Williams Art MD, in the presence of Cesar Gates MD, (associate professor of radiology). > Interpreting Provider: Williams Art MD on 03/16/2025 8:38 AM Procedure Note Williams Art MD - 03/16/2025 PROCEDURE: XR CHEST 1VW PORTABLE DATE/TIME OF EXAM: 03/16/2025 4:32 AM CLINICAL INFORMATION: None relevant/not provided if blank. 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 FINDINGS/IMPRESSION: Lines, tubes, hardware: *Intact midline sternotomy wires and mediastinal surgical clips. *A right internal jugular approach [place]-Geovanny catheter is seen with thetip superimposing the right pulmonary artery. *Right-sided internal jugular central venous line with the tip in the superior cavoatrial junction. *Interval placement of mitral valve replacement. *Interval removal of the endotracheal and nasogastric tubes. Small volume layering left pleural effusion with associated atelectasisof the left lower lung, slightly improved compared to prior. Mild right basilar atelectasis. No right pleural effusion. There is nopneumothorax. The cardiomediastinal silhouette is unchanged. > Dictated by Williams Art MD, in the presence of Cesar Gates MD, (associate professor of radiology). > Interpreting Provider: Williams Art MD on 03/16/2025 8:38 AM Mariya Botello PA-C DIAGNOSTIC IMAGING ORDERABLE S Final Result * (ABNORMAL) LACTIC ACID BLOOD (03/16/2025 3:11 AM CDT) [facility] Lactic Acid-Stat 3.7(HH) <=2.0 mmol/L 03/16/2025 4:02 AM [facility] Blood BLOOD SPECIMEN / Unknown Venipuncture / Unknown 03/16/2025 3:11 AM CDT 03/16/2025 3:21 AM CDT Nayan Hernandez [employer] LAB - CHEMISTRY ORD ERABLES Final Result [facility] [address] [place] [address], [facility] [phone] * (ABNORMAL) BLOOD GASES ART + COOX PANEL (03/16/2025 3:11 AM CDT) [facility] pH Arterial 7.38 7.35 - 7.45 pH 03/16/2025 3:21 AM [facility] pO2 Arterial 104(H) 80 - 100 mmHg 03/16/2025 3:21 AM [facility] pCO2 Arterial 31(L) 35 - 45 mmHg 3:21 AM [facility] HCO3 Arterial 18.3(L) 20.0 - 30.0 mmol/L 03/16/2025 3:21 AM [facility] BE Arterial -6.1(L) -2.0 - 2.0 mmol/L 03/16/2025 3:21 AM [facility] Oxyhemoglobin Arterial 96.3 % 03/16/2025 3:21 AM [facility] Dexoyhemoglobin (HHB) % <1.0 % 03/16/2025 3:21 AM [facility] Methemoglobin 1.3 0.0 - 2.0 % 03/16/2025 3:21 AM [facility] Carboxyhemoglobin 1.8 0.0 - 2.0 % 2024 3:21 AM CDT [facility] O2 Content Arterial 10.6 Interpret within clinical context ml/dL 03/16/2025 3:21 AM CDT [facility] Hemoglobin by COOX 7.7(L) 12.0 - 17.6 g/dL 03/16/2025 3:21 AM CDT [facility] O2 Saturation Arterial 99 90 - 100 % 03/16/2025 3:21 AM CDT [facility] FI O2 Arterial 28.0 % 03/16/2025 3:21 AM CDT [facility] Blood, arterial ARTERIAL BLOOD SPECIMEN / Unknown Arterial Puncture / Unknown 03/16/2025 3:11 AM CDT 03/16/2025 3:16 AM CDT Narrative [facility] - 03/16/2025 3:21 AM CDT Carboxyhemoglobin Normal Concentration: Non-smokers: 0-2%; Smokers: 0-9%; Toxic: >20% us Nayan Hernandez [employer] LAB - BLOOD GASES O RDERABLES Final Result [address] [address], [facility] [phone] * (ABNORMAL) SVO2 FOR RECALIBRATION (03/16/2025 3:11 AM CDT) SVO2 for Recalibration 48.1(L) 66.0 - 77.0 % 03/16/2025 3:20 AM CDT [facility] Blood BLOOD SPECIMEN / Unknown Venipuncture / Unknown 03/16/2025 3:11 AM CDT 03/16/2025 3:16 AM CDT Mariya Botello PA-C LAB - CHEMISTRY ORDERABLES F inal Result Performing Organization Address City/[facility]/ZIP Co de Phone Number [address] [address], [place] [phone] * PHOSPHORUS BLOOD (03/16/2025 3:11 AM CDT) [facility] Phosphorus 5.1 2.8 - 5.1 mg/dL 03/16/2025 3:52 AM CDT [facility] Blood BLOOD SPECIMEN / Unknown Venipuncture / Unknown 03/16/2025 3:11 AM CDT 03/16/2025 3:21 AM CDT Mariya Botello PA-C LAB - CHEMISTRY ORDERABLES F inal Result [address] [address], [facility] [phone] * (ABNORMAL) MAGNESIUM BLOOD (03/16/2025 3:11 AM CDT) [facility] Magnesium 3.0(H) 1.6 - 2.6 mg/dL 03/16/2025 3:52 AM CDT [facility] Blood BLOOD SPECIMEN / Unknown Venipuncture / Unknown 03/16/2025 3:11 AM CDT 03/16/2025 3:21 AM CDT Mariya Botello PA-C LAB - CHEMISTRY ORDERABLES F inal Result Performing Organization Address City/[facility]/ZIP Co de Phone Number [address] [address], [facility] [phone] * (ABNORMAL) CBC W/O DIFFERENTIAL (03/16/2025 3:11 AM CDT) [facility] WBC 13.5(H) 4.0 - 10.7 x10E9/L 03/16/2025 3:25 AM CDT [facility] RBC Count 2.57(L) 4.30 - 5.80 x10E12/L 03/16/2025 3:25 AM CDT [facility] Hemoglobin 7.4(L) 13.3 - 17.5 g/dL 03/16/2025 3:25 AM CDT [facility] Hematocrit 22.2(L) 38.7 - 51.1 % 03/16/2025 3:25 AM T [facility] MCV 86.4 80.0 - 98.0 fL 03/16/2025 3:25 AM T [facility] MCH 28.8 26.7 - 33.6 pg 03/16/2025 3:25 AM [facility] MCHC 33.3 31.7 - 36.3 g/dL 03/16/2025 3:25 AM [facility] RDW-CV 17.0(H) 11.3 - 14.8 % 03/16/2025 3:25 AM T [facility] Platelet Count 209 150 - 420 x10E9/L 03/16/2025 3:25 AM [facility] MPV 10.0 7.8 - 11.4 fL 03/16/2025 3:25 AM [facility] Blood BLOOD SPECIMEN / Unknown Venipuncture / Unknown 03/16/2025 3:11 AM CDT 03/16/2025 3:16 AM CDT Mariya Botello PA-C LAB - HEMATOLOGY ORDERABLES Final Result Performing Organization Address City/State/[facility] Co de Phone Number [address] [address], [facility] [phone] * (ABNORMAL) CALCIUM IONIZED WHOLE BLOOD (03/16/2025 3:11 AM CDT) Calcium Ionized 1.23 mmol/L 03/16/2025 3:20 AM [facility] pH 7.32(L) 7.35 - 7.45 pH 03/16/2025 3:20 AM [facility] Ionized Calcium pH Adjusted 1.19 1.19 - 1.34 mmol/L 03/16/2025 3:20 AM [facility] Blood BLOOD SPECIMEN / Unknown Venipuncture / Unknown 03/16/2025 3:11 AM CDT 03/16/2025 3:16 AM CDT Mariya Botello PA-C LAB - CHEMISTRY ORDERABLES F inal Result [id number] [place] [address], [facility] [phone] * HEMOGLOBIN A1C (03/16/2025 3:11 AM CDT) Hemoglobin A1c 5.3 <=5.6 % 03/16/2025 10:31 AM CDT [facility] Estimated Average Glucose 105 mg/dL 03/16/2025 10:31 AM CDT [facility] Comment: HbA1c Interpretation: Normal : < 5.7% Pre-diabetes: 5.7-6.4% Diabetes: Equal to or greater than 6.5% Test results diagnostic of diabetes should be repeated for confirmation. Treatment target values recommended by ADA and other clinical organizations should be used to evaluate metabolic control in patients. Reference: [employer], Standards of Care in Diabetes -2020 In patients 70 years and older consider HbA1c target range of 7.0-7.5% (Reference: Igor Porter et al. JAMDA. 2012) The Se[employer] assay for the measurement of HbA1c is a National Glycohemoglobin Standardization Program (NGSP) certified method. Blood BLOOD SPECIMEN / Unknown Venipuncture / Unknown 03/16/2025 3:11 AM CDT 03/16/2025 4:45 AM CDT Mariya Botello PA-C LAB - CHEMISTRY ORDERABLES F inal Result Performing Organization Address [facility]/ZIP Co de Phone Number [address] [address], [facility] [phone] * (ABNORMAL) COMPREHENSIVE METABOLIC PANEL (03/16/2025 3:11 AM CDT) BUN 31(H) 7 - 26 mg/dL 03/16/2025 3:52 AM CDT [facility] Creatinine 2.89(H) 0.71 - 1.16 mg/dL 03/16/2025 3:52 AM CDT [facility] Sodium 139 136 - 145 mmol/L 03/16/2025 3:52 AM CDT [facility] Potassium 4.8(H) 3.5 - 4.5 mmol/L 03/16/2025 3:52 AM [facility] Chloride 109(H) 98 - 107 mmol/L 03/16/2025 3:52 AM [facility] CO2 17(L) 22 - 29 mmol/L 03/16/2025 3:52 AM [facility] Glucose 155(H) 70 - 99 mg/dL 03/16/2025 3:52 AM [facility] Calcium 8.7 8.4 - 10.2 mg/dL 03/16/2025 3:52 AM [facility] Protein Total 5.8(L) 6.0 - 8.3 g/dL 03/16/2025 3:52 AM [facility] Albumin 3.9 3.4 - 5.0 g/dL 03/16/2025 3:52 AM [facility] Bilirubin Total 0.7 0.2 - 1.2 mg/dL 03/16/2025 3:52 AM [facility] Alkaline Phosphatase 57 40 - 150 U/L 03/16/2025 3:52 AM [facility] ALT 19 5 - 55 U/L 03/16/2025 3:52 AM [facility] AST 68(H) 5 - 34 U/L 03/16/2025 3:52 AM [facility] Anion Gap 13 6 - 16 03/16/2025 3:52 AM [facility] BUN/Creatinine Ratio 11 7 - 23 03/16/2025 3:52 AM [facility] Osmolality Calculated 298(H) 275 - 295 mOsm/kg 03/16/2025 3:52 AM [facility] Albumin/Globulin Ratio 2.1 1.1 - 2.3 03/16/2025 3:52 AM [facility] eGFR by CKD-EPI 23(L) >=90 mL/min/1.7 3 m2 03/16/2025 3:52 AM [facility] Comment:Estimated Glomerular Filtration Rate (eGFR) calculated using the CKD-EPI Creatinine Equation (2020), per the National Kidney Foundation and [employer] Society of Nephrology recommendations. Blood BLOOD SPECIMEN / Unknown Venipuncture / Unknown 03/16/2025 3:11 AM CDT 03/16/2025 3:21 AM CDT Mariya Botello PA-C LAB - CHEMISTRY ORDERABLES F inal Result [address] [address], [place] [phone] * (ABNORMAL) GLUCOSE - POINT OF CARE (03/16/2025 2:05 AM CDT) Glucose WB/POC 150(H) 70 - 99 mg/dL 03/16/2025 2:09 AM CDT [facility] Specimen Type Arterial/C apillary 03/16/2025 2:09 AM CDT [facility] Blood BLOOD SPECIMEN / Unknown 03/16/2025 2:05 AM CDT 03/16/2025 2:09 AM CDT Rahul Hernandez MD LAB - POINT OF CARE ORDERABLES Final Result Performing Organization Address City/[facility]/ZIP Co de Phone Number [address] [address], [place] [phone] * GLUCOSE - POINT OF CARE (03/16/2025 2:04 AM CDT) Glucose WB/POC 88 70 - 99 mg/dL 03/16/2025 2:09 AM CDT [facility] Specimen Type Arterial/C apillary 03/16/2025 2:09 AM CDT [facility] Blood BLOOD SPECIMEN / Unknown 03/16/2025 2:04 AM CDT 03/16/2025 2:09 AM CDT Rahul Hernandez MD LAB - POINT OF CARE ORDERABLES Final Result [address] [address], [place] [phone] * (ABNORMAL) GLUCOSE - POINT OF CARE (03/16/2025 12:01 AM CDT) Pathologist [facility] Glucose WB/POC 147(H) 70 - 99 mg/dL 03/16/2025 12:02 AM CDT [facility] Specimen Type Arterial/C apillary 03/16/2025 12:02 AM CDT [facility] Blood BLOOD SPECIMEN / Unknown 03/16/2025 12:01 AM CDT 03/16/2025 12:02 AM CDT us Rahul Hernandez MD LAB - POINT OF CARE ORDERABLES Final Result Performing Organization Address City/[facility]/ZIP Co de Phone Number [address] [address], [place] [phone] * (ABNORMAL) SVO2 FOR RECALIBRATION (03/15/2025 9:58 PM CDT) [facility] SVO2 for Recalibration 54.1(L) 66.0 - 77.0 % 03/15/2025 10:04 PM CDT [facility] Blood BLOOD SPECIMEN / Unknown Venipuncture / Unknown 03/15/2025 9:58 PM CDT 03/15/2025 10:00 PM CDT Nayan Hernandez [employer] [facility] LAB - CHEMISTRY ORD ERABLES Final Result Performing Organization Address [facility]/ZIP Co de Phone Number [address] [address], [place] [phone] * (ABNORMAL) BLOOD GASES ART + COOX PANEL (03/15/2025 9:58 PM CDT) Pathologist [facility] pH Arterial 7.33(L) 7.35 - 7.45 pH 03/15/2025 10:05 PM T [facility] pO2 Arterial 98 80 - 100 mmHg 03/15/2025 10:05 PM T [facility] pCO2 Arterial 35 35 - 45 mmHg 10:05 PM [facility] HCO3 Arterial 18.5(L) 20.0 - 30.0 mmol/L 03/15/2025 10:05 PM [facility] BE Arterial -6.8(L) -2.0 - 2.0 mmol/L 03/15/2025 10:05 PM [facility] Oxyhemoglobin Arterial 96.8 % 03/15/2025 10:05 PM [facility] Dexoyhemoglobin (HHB) % <1.0 % 03/15/2025 10:05 PM [facility] Methemoglobin 1.0 0.0 - 2.0 % 03/15/2025 10:05 PM [facility] Carboxyhemoglobin 1.4 0.0 - 2.0 % 2024 10:05 PM [facility] O2 Content Arterial 10.9 Interpret within clinical context ml/dL 03/15/2025 10:05 PM [facility] Hemoglobin by COOX 7.9(L) 12.0 - 17.6 g/dL 03/15/2025 10:05 PM [facility] O2 Saturation Arterial 99 90 - 100 % 03/15/2025 10:05 PM [facility] FI O2 Arterial 36.0 % 03/15/2025 10:05 PM [facility] Blood, arterial ARTERIAL BLOOD SPECIMEN / Unknown Arterial Puncture / Unknown 03/15/2025 9:58 PM T 03/15/2025 10:00 PM [facility] - 03/15/2025 10:05 PM [facility] Carboxyhemoglobin Normal Concentration: Non-smokers: 0-2%; Smokers: 0-9%; Toxic: >20% us Nayan Flaquito Hernandez [employer] LAB - BLOOD GASES O RDERABLES Final Result [facility] [address] [place] [address], [facility] [phone] * (ABNORMAL) GLUCOSE - POINT OF CARE (03/15/2025 9:56 PM [facility]) Glucose WB/POC 152(H) 70 - 99 mg/dL 03/15/2025 10:01 PM [facility] Specimen Type Arterial/C apillary 03/15/2025 10:01 PM CDT [facility] Blood BLOOD SPECIMEN / Unknown 03/15/2025 9:56 PM CDT 03/15/2025 10:01 PM CDT us Rahul Hernandez MD LAB - POINT OF CARE ORDERABLES Final Result [address] [address], [place] [phone] * (ABNORMAL) GLUCOSE - POINT OF CARE (03/15/2025 9:06 PM CDT) Glucose WB/POC 142(H) 70 - 99 mg/dL 03/15/2025 9:08 PM CDT [facility] Specimen Type Arterial/C apillary 03/15/2025 9:08 PM CDT [facility] Blood BLOOD SPECIMEN / Unknown 03/15/2025 9:06 PM CDT 03/15/2025 9:08 PM CDT us Rahul Hernandez MD LAB - POINT OF CARE ORDERABLES Final Result Performing Organization Address [facility]/ZIP Co de Phone Number [address] [address], [place] [phone] * (ABNORMAL) LACTIC ACID BLOOD (03/15/2025 8:22 PM CDT) Lactic Acid-Stat 3.5(HH) <=2.0 mmol/L 03/15/2025 9:17 PM CDT [facility] Blood BLOOD SPECIMEN / Unknown Venipuncture / Unknown 03/15/2025 8:22 PM CDT 03/15/2025 8:30 PM CDT Mariya Botello PA-C LAB - CHEMISTRY ORDERABLES F inal Result [address] [address], [place] [phone] * (ABNORMAL) MAGNESIUM BLOOD (03/15/2025 8:19 PM CDT) Magnesium 3.2(H) 1.6 - 2.6 mg/dL 03/15/2025 8:58 PM CDT [facility] Blood BLOOD SPECIMEN / Unknown Venipuncture / Unknown 03/15/2025 8:19 PM CDT 03/15/2025 8:30 PM CDT Nayanbita Hernandez [facility] LAB - CHEMISTRY ORD ERABLES Final Result [address] [address], [facility] [phone] * PHOSPHORUS BLOOD (03/15/2025 8:19 PM CDT) Phosphorus 3.7 2.8 - 5.1 mg/dL 03/15/2025 8:58 PM CDT [facility] Blood BLOOD SPECIMEN / Unknown Venipuncture / Unknown 03/15/2025 8:19 PM CDT 03/15/2025 8:30 PM CDT Nayanbita Hernandez [facility] LAB - CHEMISTRY ORD ERABLES Final Result Performing Organization Address City/[facility]/ZIP Co de Phone Number [address] [address], [facility] [phone] * CALCIUM IONIZED WHOLE BLOOD (03/15/2025 8:19 PM CDT) Calcium Ionized 1.27 mmol/L 03/15/2025 8:29 PM CDT [facility] pH 7.44 7.35 - 7.45 pH 03/15/2025 8:29 PM CDT [facility] Ionized Calcium pH Adjusted 1.29 1.19 - 1.34 mmol/L 03/15/2025 8:29 PM CDT [facility] Blood BLOOD SPECIMEN / Unknown Venipuncture / Unknown 03/15/2025 8:19 PM CDT 03/15/2025 8:24 PM CDT us Nayanbita Hernandez [employer] LAB - CHEMISTRY ORD ERABLES Final Result [facility] [address] [place] [address], [place] [phone] * (ABNORMAL) BLOOD GASES ART + COOX PANEL (03/15/2025 8:19 PM CDT) pH Arterial 7.43 7.35 - 7.45 pH 03/15/2025 8:29 PM [facility] pO2 Arterial 155(H) 80 - 100 mmHg 03/15/2025 8:29 PM [facility] pCO2 Arterial 29(L) 35 - 45 mmHg 8:29 PM [facility] HCO3 Arterial 19.2(L) 20.0 - 30.0 mmol/L 03/15/2025 8:29 PM [facility] BE Arterial -4.4(L) -2.0 - 2.0 mmol/L 03/15/2025 8:29 PM [facility] Oxyhemoglobin Arterial 96.7 % 03/15/2025 8:29 PM [facility] Dexoyhemoglobin (HHB) % <1.0 % 03/15/2025 8:29 PM [facility] Methemoglobin 1.5 0.0 - 2.0 % 03/15/2025 8:29 PM [facility] Carboxyhemoglobin 1.2 0.0 - 2.0 % 2024 8:29 PM [facility] O2 Content Arterial 12.3 Interpret within clinical context ml/dL 03/15/2025 8:29 PM [facility] Hemoglobin by COOX 8.8(L) 12.0 - 17.6 g/dL 03/15/2025 8:29 PM [facility] O2 Saturation Arterial 99 90 - 100 % 03/15/2025 8:29 PM [facility] FI O2 Arterial 40.0 % 03/15/2025 8:29 PM [facility] Blood, arterial ARTERIAL BLOOD SPECIMEN / Unknown Arterial Puncture / Unknown 03/15/2025 8:19 PM CDT 03/15/2025 8:24 PM CDT [facility] - 03/15/2025 8:29 PM CDT Carboxyhemoglobin Normal Concentration: Non-smokers: 0-2%; Smokers: 0-9%; Toxic: >20% us Nayanbita Hernandez [employer] LAB - BLOOD GASES O RDERABLES Final Result [facility] [address] [place] [address], [facility] [phone] * (ABNORMAL) COMPREHENSIVE METABOLIC PANEL (03/15/2025 8:19 PM CDT) BUN 31(H) 7 - 26 mg/dL 03/15/2025 8:58 PM [facility] Creatinine 2.76(H) 0.71 - 1.16 mg/dL 03/15/2025 8:58 PM [facility] Sodium 140 136 - 145 mmol/L 03/15/2025 8:58 PM [facility] Potassium 4.2 3.5 - 4.5 mmol/L 03/15/2025 8:58 PM [facility] Chloride 109(H) 98 - 107 mmol/L 03/15/2025 8:58 PM [facility] CO2 19(L) 22 - 29 mmol/L 03/15/2025 8:58 PM [facility] Glucose 154(H) 70 - 99 mg/dL 03/15/2025 8:58 PM [facility] Calcium 9.2 8.4 - 10.2 mg/dL 03/15/2025 8:58 PM [facility] Protein Total 5.6(L) 6.0 - 8.3 g/dL 03/15/2025 8:58 PM [facility] Albumin 3.8 3.4 - 5.0 g/dL 03/15/2025 8:58 PM [facility] Bilirubin Total 1.7(H) 0.2 - 1.2 mg/dL 03/15/2025 8:58 PM [facility] Alkaline Phosphatase 61 40 - 150 U/L 03/15/2025 8:58 PM [facility] ALT 6 5 - 55 U/L 03/15/2025 8:58 PM [facility] AST 43(H) 5 - 34 U/L 03/15/2025 8:58 PM [facility] Anion Gap 12 6 - 16 03/15/2025 8:58 PM [facility] BUN/Creatinine Ratio 11 7 - 23 03/15/2025 8:58 PM [facility] Osmolality Calculated 300(H) 275 - 295 mOsm/kg 03/15/2025 8:58 PM [facility] Albumin/Globulin Ratio 2.1 1.1 - 2.3 03/15/2025 8:58 PM [facility] eGFR by CKD-EPI 25(L) >=90 mL/min/1.7 3 m2 03/15/2025 8:58 PM [facility] Comment:Estimated Glomerular Filtration Rate (eGFR) calculated using the CKD-EPI Creatinine Equation (2020), per the National Kidney Foundation and [employer] Society of Nephrology recommendations. Blood BLOOD SPECIMEN / Unknown Venipuncture / Unknown 03/15/2025 8:19 PM CDT 03/15/2025 8:30 PM CDT us Nayan Flaquito Hernandez [employer] LAB - CHEMISTRY ORD ERABLES Final Result [facility] [address] [place] [address], [facility] [phone] * (ABNORMAL) CBC W/O DIFFERENTIAL (03/15/2025 8:19 PM CDT) WBC 18.7(H) 4.0 - 10.7 x10E9/L 03/15/2025 8:51 PM [facility] RBC Count 2.85(L) 4.30 - 5.80 x10E12/L 03/15/2025 8:51 PM [facility] Hemoglobin 8.1(L) 13.3 - 17.5 g/dL 03/15/2025 8:51 PM CDT [facility] Hematocrit 24.1(L) 38.7 - 51.1 % 03/15/2025 8:51 PM CDT [facility] MCV 84.6 80.0 - 98.0 fL 03/15/2025 8:51 PM CDT [facility] MCH 28.4 26.7 - 33.6 pg 03/15/2025 8:51 PM CDT [facility] MCHC 33.6 31.7 - 36.3 g/dL 03/15/2025 8:51 PM CDT [facility] RDW-CV 15.9(H) 11.3 - 14.8 % 03/15/2025 8:51 PM CDT [facility] Platelet Count 231 150 - 420 x10E9/L 03/15/2025 8:51 PM CDT [facility] MPV 9.6 7.8 - 11.4 fL 03/15/2025 8:51 PM CDT [facility] Blood BLOOD SPECIMEN / Unknown Venipuncture / Unknown 03/15/2025 8:19 PM CDT 03/15/2025 8:30 PM CDT Nayan Hernandez APRN-[facility] LAB - HEMATOLOGY OR DERABLES Final Result [address] [address], [facility] [phone] * (ABNORMAL) SVO2 FOR RECALIBRATION (03/15/2025 8:19 PM CDT) Pathologist [facility] SVO2 for Recalibration 55.4(L) 66.0 - 77.0 % 03/15/2025 8:29 PM CDT [facility] Blood BLOOD SPECIMEN / Unknown Venipuncture / Unknown 03/15/2025 8:19 PM CDT 03/15/2025 8:24 PM CDT Nayan Hernandez [employer] LAB - CHEMISTRY ORD ERABLES Final Result [address] [address], [place] [phone] * (ABNORMAL) GLUCOSE - POINT OF CARE (03/15/2025 8:18 PM CDT) Glucose WB/POC 153(H) 70 - 99 mg/dL 03/15/2025 8:21 PM CDT [facility] Specimen Type Arterial/C apillary 03/15/2025 8:21 PM CDT [facility] Blood BLOOD SPECIMEN / Unknown 03/15/2025 8:18 PM CDT 03/15/2025 8:21 PM CDT Rahul Hernandez MD LAB - POINT OF CARE ORDERABLES Final Result Performing Organization Address City/[facility]/ZIP Co de Phone Number [address] [address], [place] [phone] * TRANSFUSE RED BLOOD CELL LEUKOREDUCED UNIT(S) (03/15/2025 8:08 PM CDT) Rahul Hernandez MD NURSING - BLOOD PRO D TRANSFUSION Final Result * TRANSFUSE RED BLOOD CELL LEUKOREDUCED UNIT(S), 1 Units (03/15/2025 8:08 PM CDT) Rahul Hernandez MD NURSING - BLOOD PRO D TRANSFUSION Final Result * (ABNORMAL) GLUCOSE - POINT OF CARE (03/15/2025 7:02 PM CDT) Glucose WB/POC 137(H) 70 - 99 mg/dL 03/15/2025 7:07 PM CDT [facility] Specimen Type Arterial/C apillary 03/15/2025 7:07 PM CDT [facility] Blood BLOOD SPECIMEN / Unknown 03/15/2025 7:02 PM CDT 03/15/2025 7:07 PM CDT Rahul Hernandez MD LAB - POINT OF CARE ORDERABLES Final Result [address] [place] [address], [facility] [phone] * (ABNORMAL) GLUCOSE - POINT OF CARE (03/15/2025 6:28 PM CDT) Pathologist [facility] Glucose WB/POC 149(H) 70 - 99 mg/dL 03/15/2025 6:29 PM CDT [facility] Specimen Type Arterial/C apillary 03/15/2025 6:29 PM CDT [facility] Blood BLOOD SPECIMEN / Unknown 03/15/2025 6:28 PM CDT 03/15/2025 6:29 PM CDT Rahul Hernandez MD LAB - POINT OF CARE ORDERABLES Final Result Performing Organization Address [facility]/ZIP Co de Phone Number [address] [address], [facility] [phone] * EKG 12-LEAD (03/15/2025 6:27 PM CDT) [facility] Ventricular Rate 86 BPM [facility] QRS Duration ms 72 ms [facility] Q-T Interval ms 372 ms [facility] QTC Calculation (Bezet) 445 ms [facility] Calculated R [place] 53 degrees SL MUSE Calculated T [place] 50 degrees [facility] Interpretation EKG ACCELERATED JUNCTIONAL RHYTHM WITH OCCASIONAL PREMATURE VENTRICULAR COMPLEXES NONSPECIFIC ST ABNORMALITY ABNORMAL ECG NO PREVIOUS ECGS AVAILABLE Confirmed by MISSY ALFARO, PRASAD ([id number]) on 03/20/2025 6:15:58 PM [facility] 03/15/2025 6:27 PM CDT 03/20/2025 6:15 PM CDT Mariya Botello PA-C ECG ORDERABLES Edited Resul t - Final Performing Organization Address City/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 *A right internal jugular approach [place]-Geovanny catheter is seen with the tip superimposing the right pulmonary artery. *Right-sided internal jugular central venous line with the tip in the superior cavoatrial junction. *Interval placement of mitral valve replacement. *Nasogastric tube with distal tip in the gastric body. Moderate volume layering left pleural effusion with associated atelectasis of the left lower lung. No right pleural effusion. There is no pleural effusion or pneumothorax. The cardiomediastinal silhouette is obscured. > Dictated by Magali TSANG [facility] (associate professor of radiology). > Dictated by Lighting Equipment Operator I, Williams Art MD have personally reviewed and interpreted this examination/study. 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 *A right internal jugular approach [place]-Geovanny catheter is seen with thetip superimposing the right pulmonary artery. *Right-sided internal jugular central venous line with the tip in the superior cavoatrial junction. *Interval placement of mitral valve replacement. *Nasogastric tube with distal tip in the gastric body. Moderate volume layering left pleural effusion with associatedatelectasis of the left lower lung. No right pleural effusion. There is no pleural effusion or pneumothorax. The cardiomediastinal silhouette is obscured. > Dictated by Magali Brewster [facility] (associate professor of radiology). > Dictated by Lighting Equipment Operator I, Williams Art MD have personally reviewed and interpreted this examination/study. > Interpreting Provider: Williams Art MD on 03/16/2025 7:51 AM us Mariya McPike PA-C DIAGNOSTIC IMAGING ORDERABLE S Final Result * XR Abdomen Kub (03/15/2025 6:16 PM CDT) Anatomical Region Laterality Modality Abdomen Digital Radiogra phy 03/16/2025 2:31 AM CDT Impressions 03/16/2025 2:31 AM CDT IMPRESSION: Nasogastric tube in the stomach. Additional partially visualize catheters are present. > Interpreting Provider: Jamie Barriga MD on 03/16/2025 2:31 AM Narrative 03/16/2025 2:31 AM CDT PROCEDURE: XR ABDOMEN KUB DATE/TIME OF EXAM: 03/15/2025 6:25 PM CLINICAL INFORMATION: None relevant/not provided if blank. 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 Procedure Note Jamie Barriga MD - 03/16/2025 PROCEDURE: XR ABDOMEN KUB DATE/TIME OF EXAM: 03/15/2025 6:25 PM CLINICAL INFORMATION: None relevant/not provided if blank. 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 IMPRESSION: Nasogastric tube in the stomach. Additional partially visualizecatheters are present. > Interpreting Provider: Jamie Barriga MD on 03/16/2025 2:31 AM us Mariya Dawitike PA-C DIAGNOSTIC IMAGING ORDERABLE S Final Result * (ABNORMAL) DIFFERENTIAL MANUAL (03/15/2025 5:32 PM CDT) Neutrophil % 90(H) 41 - 74 % 03/15/2025 6:09 PM CDT [facility] Lymphocyte % 6(L) 17 - 47 % 03/15/2025 6:09 PM T [facility] Monocyte % 4 3 - 11 % 03/15/2025 6:09 PM CDT [facility] Neutrophil Absolute 19.53(H) 1.60 - 7.50 x10E9/L 03/15/2025 6:09 PM T [facility] Lymphocyte Absolute 1.30 1.00 - 4.40 x10E9/L 03/15/2025 6:09 PM T [facility] Monocyte Absolute 0.87 0.15 - 1.00 x10E9/L 03/15/2025 6:09 PM T [facility] RBC Morphology REVIEWED 03/15/2025 6:09 PM T [facility] Large Platelets PRESENT(A) (none) 03/15/2025 6:09 PM T [facility] Blood BLOOD SPECIMEN / Unknown Venipuncture / Unknown 03/15/2025 5:32 PM CDT 03/15/2025 5:38 PM CDT us Mariya Botello PA-C LAB - HEMATOLOGY ORDERABLES Final Result [address] [address], [facility] [phone] * SVO2 FOR RECALIBRATION (03/15/2025 5:32 PM CDT) Pathologist [facility] SVO2 for Recalibration 66.5 66.0 - 77.0 % 03/15/2025 5:45 PM CDT [facility] Blood BLOOD SPECIMEN / Unknown Venipuncture / Unknown 03/15/2025 5:32 PM CDT 03/15/2025 5:34 PM CDT Rahul Hernandez MD LAB - CHEMISTRY ORD ERABLES Final Result [address] [address], [facility] [phone] * PTT (03/15/2025 5:32 PM CDT) APTT 29.8 23.0 - 38.4 Seconds 03/15/2025 6:05 PM CDT [facility] Comment:Suggested therapeuti c range for full dose I.V. unfractionated heparin therapy for venous thromboembolism is 71 to 109 seconds. Blood BLOOD SPECIMEN / Unknown Venipuncture / Unknown 03/15/2025 5:32 PM CDT 03/15/2025 5:35 PM CDT Mariya Botello PA-C LAB - COAGULATION ORDERABLES Final Result [address] [address], [facility] [phone] * (ABNORMAL) PT-INR (03/15/2025 5:32 PM CDT) Pathologist [facility] PT 16.3(H) 12.1 - 14.8 Seconds 03/15/2025 6:05 PM CDT [facility] INR 1.3 See Comment 03/15/2025 6:05 PM CDT [facility] Comment:The suggested therap eutic range for standard coumadin (warfarin) therapy is an INR of 2.0-3.0. For high-risk patients (Mechanical Mitral Valve Prosthesis, etc.), the suggested prophylactic therapeutic range is an INR of 2.5-3.5. Blood BLOOD SPECIMEN / Unknown Venipuncture / Unknown 03/15/2025 5:32 PM CDT 03/15/2025 5:35 PM CDT Mariya Botello PA-C LAB - COAGULATION ORDERABLES Final Result [address] [address], [place] [phone] * PHOSPHORUS BLOOD (03/15/2025 5:32 PM CDT) Phosphorus 3.6 2.8 - 5.1 mg/dL 03/15/2025 6:10 PM CDT [facility] Blood BLOOD SPECIMEN / Unknown Venipuncture / Unknown 03/15/2025 5:32 PM CDT 03/15/2025 5:38 PM CDT Mariya Botello PA-C LAB - CHEMISTRY ORDERABLES F inal Result [address] [address], [place] [phone] * FIBRINOGEN ACTIVITY (03/15/2025 5:32 PM CDT) [facility] Fibrinogen [place] 280 200 - 400 mg/dL 03/15/2025 6:03 PM CDT [facility] Blood BLOOD SPECIMEN / Unknown Venipuncture / Unknown 03/15/2025 5:32 PM CDT 03/15/2025 5:35 PM CDT Mariya Botello PA-C LAB - COAGULATION ORDERABLES Final Result Performing Organization Address [facility]/ZIP Co de Phone Number [address] [address], [place] [phone] * (ABNORMAL) CBC W AUTO DIFFERENTIAL (03/15/2025 5:32 PM CDT) [facility] WBC 21.7(H) 4.0 - 10.7 x10E9/L 03/15/2025 6:09 PM CDT [facility] RBC Count 2.71(L) 4.30 - 5.80 x10E12/L 03/15/2025 6:09 PM T [facility] Hemoglobin 7.9(L) 13.3 - 17.5 g/dL 03/15/2025 6:09 PM CDT [facility] Hematocrit 24.0(L) 38.7 - 51.1 % 03/15/2025 6:09 PM CDT [facility] MCV 88.6 80.0 - 98.0 fL 03/15/2025 6:09 PM CDT [facility] MCH 29.2 26.7 - 33.6 pg 03/15/2025 6:09 PM CDT [facility] MCHC 32.9 31.7 - 36.3 g/dL 03/15/2025 6:09 PM CDT [facility] RDW-CV 15.9(H) 11.3 - 14.8 % 03/15/2025 6:09 PM CDT [facility] Platelet Count 251 150 - 420 x10E9/L 03/15/2025 6:09 PM CDT [facility] MPV 9.5 7.8 - 11.4 fL 03/15/2025 6:09 PM CDT [facility] Blood BLOOD SPECIMEN / Unknown Venipuncture / Unknown 03/15/2025 5:32 PM CDT 03/15/2025 5:38 PM CDT Mariya Botello PA-C LAB - HEMATOLOGY ORDERABLES Final Result [address] [address], [place] [phone] * (ABNORMAL) CALCIUM IONIZED WHOLE BLOOD (03/15/2025 5:32 PM CDT) [facility] Calcium Ionized 1.39 mmol/L 03/15/2025 5:37 PM CDT [facility] pH 7.40 7.35 - 7.45 pH 03/15/2025 5:37 PM CDT [facility] Ionized Calcium pH Adjusted 1.39(H) 1.19 - 1.34 mmol/L 03/15/2025 5:37 PM CDT [facility] Blood BLOOD SPECIMEN / Unknown Venipuncture / Unknown 03/15/2025 5:32 PM CDT 03/15/2025 5:34 PM CDT Mariya Botello PA-C LAB - CHEMISTRY ORDERABLES F inal Result [address] [address], [place] [phone] * (ABNORMAL) COMPREHENSIVE METABOLIC PANEL (03/15/2025 5:32 PM [facility]) BUN 31(H) 7 - 26 mg/dL 03/15/2025 6:17 PM [facility] Creatinine 2.56(H) 0.71 - 1.16 mg/dL 03/15/2025 6:17 PM [facility] Sodium 142 136 - 145 mmol/L 03/15/2025 6:17 PM [facility] Potassium 3.8 3.5 - 4.5 mmol/L 03/15/2025 6:17 PM [facility] Chloride 111(H) 98 - 107 mmol/L 03/15/2025 6:17 PM [facility] CO2 21(L) 22 - 29 mmol/L 03/15/2025 6:17 PM [facility] Glucose 167(H) 70 - 99 mg/dL 03/15/2025 6:17 PM [facility] Calcium 11.1(H) 8.4 - 10.2 mg/dL 03/15/2025 6:17 PM [facility] Protein Total 5.3(L) 6.0 - 8.3 g/dL 03/15/2025 6:17 PM [facility] Albumin 3.4 3.4 - 5.0 g/dL 03/15/2025 6:17 PM [facility] Bilirubin Total 0.9 0.2 - 1.2 mg/dL 03/15/2025 6:17 PM [facility] Alkaline Phosphatase 58 40 - 150 U/L 03/15/2025 6:17 PM [facility] ALT 6 5 - 55 U/L 03/15/2025 6:17 PM [facility] AST 35(H) 5 - 34 U/L 03/15/2025 6:17 PM [facility] Anion Gap 10 6 - 16 03/15/2025 6:17 PM [facility] BUN/Creatinine Ratio 12 7 - 23 03/15/2025 6:17 PM [facility] Osmolality Calculated 304(H) 275 - 295 mOsm/kg 03/15/2025 6:17 PM [facility] Albumin/Globulin Ratio 1.8 1.1 - 2.3 03/15/2025 6:17 PM [facility] eGFR by CKD-EPI 27(L) >=90 mL/min/1.7 3 m2 03/15/2025 6:17 PM [facility] Comment:Estimated Glomerular Filtration Rate (eGFR) calculated using the CKD-EPI Creatinine Equation (2020), per the National Kid[employer] Foundation and [employer] Nephrology recommendations. Blood BLOOD SPECIMEN / Unknown Venipuncture / Unknown 03/15/2025 5:32 PM CDT 03/15/2025 5:38 PM CDT us Mariya Botello PA-C LAB - CHEMISTRY ORDERABLES F inal Result [facility] [address] [place] [address], [facility] [phone] * (ABNORMAL) BLOOD GASES ART + COOX PANEL (03/15/2025 5:32 PM CDT) pH Arterial 7.39 7.35 - 7.45 pH 03/15/2025 5:37 PM [facility] pO2 Arterial 148(H) 80 - 100 mmHg 03/15/2025 5:37 PM [facility] pCO2 Arterial 39 35 - 45 mmHg 5:37 PM [facility] HCO3 Arterial 23.6 20.0 - 30.0 mmol/L 03/15/2025 5:37 PM [facility] BE Arterial -1.2 -2.0 - 2.0 mmol/L 03/15/2025 5:37 PM [facility] Oxyhemoglobin Arterial 96.7 % 03/15/2025 5:37 PM [facility] Dexoyhemoglobin (HHB) % <1.0 % 03/15/2025 5:37 PM [facility] Methemoglobin 1.4 0.0 - 2.0 % 03/15/2025 5:37 PM [facility] Carboxyhemoglobin 1.4 0.0 - 2.0 % 2024 5:37 PM CDT [facility] O2 Content Arterial 11.5 Interpret within clinical context ml/dL 03/15/2025 5:37 PM CDT [facility] Hemoglobin by COOX 8.2(L) 12.0 - 17.6 g/dL 03/15/2025 5:37 PM CDT [facility] O2 Saturation Arterial 100 90 - 100 % 03/15/2025 5:37 PM CDT [facility] FI O2 Arterial 40.0 % 03/15/2025 5:37 PM CDT [facility] Blood, arterial ARTERIAL BLOOD SPECIMEN / Unknown Arterial Puncture / Unknown 03/15/2025 5:32 PM CDT 03/15/2025 5:34 PM CDT Narrative [facility] - 03/15/2025 5:37 PM CDT Carboxyhemoglobin Normal Concentration: Non-smokers: 0-2%; Smokers: 0-9%; Toxic: >20% Mariya Botello PA-C LAB - BLOOD GASES ORDERABLES Final Result [address] [address], [facility] [phone] * (ABNORMAL) MAGNESIUM BLOOD (03/15/2025 5:32 PM CDT) Pathologist [facility] Magnesium 3.4(H) 1.6 - 2.6 mg/dL 03/15/2025 6:19 PM CDT [facility] Blood BLOOD SPECIMEN / Unknown Venipuncture / Unknown 03/15/2025 5:32 PM CDT 03/15/2025 5:38 PM CDT Mariya Botello PA-C LAB - CHEMISTRY ORDERABLES F inal Result [address] [address], [place] [phone] * (ABNORMAL) CBC W/O DIFFERENTIAL (03/15/2025 5:32 PM CDT) Pathologist [facility] WBC 21.7(H) 4.0 - 10.7 x10E9/L 03/15/2025 6:09 PM [facility] RBC Count 2.71(L) 4.30 - 5.80 x10E12/L 03/15/2025 6:09 PM [facility] Hemoglobin 7.9(L) 13.3 - 17.5 g/dL 03/15/2025 6:09 PM [facility] Hematocrit 24.0(L) 38.7 - 51.1 % 03/15/2025 6:09 PM [facility] MCV 88.6 80.0 - 98.0 fL 03/15/2025 6:09 PM [facility] MCH 29.2 26.7 - 33.6 pg 03/15/2025 6:09 PM [facility] MCHC 32.9 31.7 - 36.3 g/dL 03/15/2025 6:09 PM [facility] RDW-CV 15.9(H) 11.3 - 14.8 % 03/15/2025 6:09 PM [facility] Platelet Count 251 150 - 420 x10E9/L 03/15/2025 6:09 PM [facility] MPV 9.5 7.8 - 11.4 fL 03/15/2025 6:09 PM [facility] Blood BLOOD SPECIMEN / Unknown Venipuncture / Unknown 03/15/2025 5:32 PM CDT 03/15/2025 5:38 PM CDT Mariya Botello PA-C LAB - HEMATOLOGY ORDERABLES Final Result [address] [address], [facility] [phone] * (ABNORMAL) LACTIC ACID BLOOD (03/15/2025 5:32 PM CDT) Pathologist [facility] Lactic Acid-Stat 2.6(H) <=2.0 mmol/L 03/15/2025 6:10 PM [facility] Blood BLOOD SPECIMEN / Unknown Venipuncture / Unknown 03/15/2025 5:32 PM CDT 03/15/2025 5:38 PM CDT us Mariya Botello PA-C LAB - CHEMISTRY ORDERABLES F inal Result Performing Organization Address City/[facility]/ZIP Co de Phone Number [address] [address], [place] [phone] * (ABNORMAL) GLUCOSE - POINT OF CARE (03/15/2025 5:30 PM CDT) Glucose WB/POC 165(H) 70 - 99 mg/dL 03/15/2025 5:34 PM CDT [facility] Specimen Type Arterial/C apillary 03/15/2025 5:34 PM CDT [facility] Blood BLOOD SPECIMEN / Unknown 03/15/2025 5:30 PM CDT 03/15/2025 5:34 PM CDT Cornelia Serra MD LAB - POINT OF CARE ORDERABLE S Final Result Performing Organization Address [facility]/ZIP Co de Phone Number [address] [address], [place] [phone] * CULTURE ANAEROBE (03/15/2025 5:06 PM CDT) Culture No anaerobic organisms isolated LAVELLE 03/20/2025 12:08 PM CDT [facility] MICROBIOLOGY Microbiology TISSUE SPECIMEN / Unknown Collection / Unknown 03/15/2025 5:06 PM CDT 03/15/2025 5:06 PM CDT us Rhaul Hernandez MD LAB - MICROBIOLOGY ORDERABLES Final Result Performing Organization Address City/[facility]/ZIP Co de Phone Number [facility] MICROBIOLOGY [address] [place] [address], [place] [phone] * CULTURE WOUND+GRAM STAIN (03/15/2025 5:06 PM CDT) Culture No growth [place]LE 03/19/2025 1:10 PM CDT [facility] MICROBIOLOGY Gram Stain Light Polymorphonuclear cells 03/19/2025 1:10 PM CDT [facility] MICROBIOLOGY Gram Stain No organisms seen 025 1:10 PM CDT [facility] MICROBIOLOGY Microbiology TISSUE SPECIMEN / Unknown Collection / Unknown 03/15/2025 5:06 PM CDT 03/15/2025 5:06 PM CDT Rahul Hernandez MD LAB - MICROBIOLOGY ORDERABLES Final Result [facility] MICROBIOLOGY [address] [place] [address], [facility] [phone] * TRANSFUSE FRESH FROZEN PLASMA UNIT(S) (03/15/2025 4:28 PM CDT) Rahul Hernandez MD NURSING - BLOOD PRO D TRANSFUSION Final Result * TRANSFUSE RED BLOOD CELL LEUKOREDUCED UNIT(S) (03/15/2025 4:15 PM CDT) Rahul Hernandez MD NURSING - BLOOD PRO D TRANSFUSION Final Result * TRANSFUSE PLATELET PHERESIS UNIT(S) (03/15/2025 4:14 PM CDT) Rahul Hernandez MD NURSING - BLOOD PRO D TRANSFUSION Final Result * (ABNORMAL) BLOOD GAS+COOX+LYTES+METAB ARTERIAL POCT (03/15/2025 4:00 PM CDT) Pathologist [facility] pH Arterial 7.34(L) 7.35 - 7.45 pH 03/15/2025 4:00 PM CDT [facility] pO2 Arterial 384(H) 80 - 100 mmHg 03/15/2025 4:00 PM CDT [facility] pCO2 Arterial 41 35 - 45 mmHg 4:00 PM T [facility] HCO3 Arterial 22.1 20.0 - 30.0 mmol/L 03/15/2025 4:00 PM T [facility] BE Arterial -3.4(L) -2.0 - 2.0 mmol/L 03/15/2025 4:00 PM [facility] Oxyhemoglobin Arterial 97.9 % 03/15/2025 4:00 PM [facility] Dexoyhemoglobin (HHB) % <1.0 % 03/15/2025 4:00 PM [facility] Methemoglobin 1.1 0.0 - 2.0 % 03/15/2025 4:00 PM [facility] Carboxyhemoglobin 1.0 0.0 - 2.0 % 2024 4:00 PM [facility] Comment:Carboxyhemoglobin No rmal Concentration: Non-smokers: 0-2%; Smokers: 0- 9%; Toxic: >20% O2 Content Arterial 13.2 Interpret within clinical context ml/dL 03/15/2025 4:00 PM [facility] Hemoglobin by COOX 8.8(L) 12.0 - 17.6 g/dL 03/15/2025 4:00 PM [facility] O2 Saturation Arterial 100 90 - 100 % 03/15/2025 4:00 PM [facility] Sodium Whole Blood 138 135 - 145 mmol/L 03/15/2025 4:00 PM [facility] Potassium Whole Blood 4.1 3.5 - 5.5 mmol/L 03/15/2025 4:00 PM [facility] Chloride WB 107 78 - 107 mmol/L 03/15/2025 4:00 PM [facility] Calcium Ionized 1.36 mmol/L 4:00 PM [facility] Ionized Calcium pH Adjusted 1.33 1.19 - 1.34 mmol/L 03/15/2025 4:00 PM [facility] Anion Gap (AG) Arterial 9 6 - 16 mmol/L 03/15/2025 4:00 PM [facility] Glucose WB 193(H) 70 - 99 mg/dL 03/15/2025 4:00 PM [facility] Lactic Acid Whole Blood 1.8 <=2.0 mmol/L 03/15/2025 4:00 PM [facility] Blood, arterial ARTERIAL BLOOD SPECIMEN / Unknown 03/15/2025 4:00 PM CDT 03/15/2025 4:00 PM CDT us Cornelia Serra MD LAB - POINT OF CARE ORDERABLE S Final Result Performing Organization Address City/[facility]/ZIP Co de Phone Number [address] [address], [place] [phone] * TRANSFUSE RED BLOOD CELL LEUKOREDUCED UNIT(S) (03/15/2025 3:30 PM CDT) us Rahul Hernandez MD NURSING - BLOOD PRO D TRANSFUSION Final Result * ACT PLUS - POCT ([facility]) (03/15/2025 3:17 PM CDT) Pathologist [facility] ACT PLUS 112 See result comments sec 03/15/2025 3:21 PM CDT [facility] Blood BLOOD SPECIMEN / Unknown 03/15/2025 3:17 PM CDT 03/15/2025 3:21 PM CDT Narrative [facility] - 03/15/2025 3:21 PM CDT ACT+ Therapeutic ranges for the ACT+ test in surgery areas are: Greater than (>) 360 seconds for surgical patients Greater than (>) 450 seconds for surgical bypass patients us Cornelia Serra MD LAB - COAGULATION ORDERABLES Final Result Performing Organization Address City/[facility]/ZIP Co de Phone Number [address] [address], [place] [phone] * (ABNORMAL) BLOOD GAS+COOX+LYTES+METAB ARTERIAL POCT (03/15/2025 3:17 PM CDT) pH Arterial 7.31(L) 7.35 - 7.45 pH 03/15/2025 3:17 PM CDT [facility] pO2 Arterial 308(H) 80 - 100 mmHg 03/15/2025 3:17 PM CDT [facility] pCO2 Arterial 39 35 - 45 mmHg 3:17 PM CDT [facility] HCO3 Arterial 19.6(L) 20.0 - 30.0 mmol/L 03/15/2025 3:17 PM [facility] BE Arterial -6.2(L) -2.0 - 2.0 mmol/L 03/15/2025 3:17 PM [facility] Oxyhemoglobin Arterial 97.8 % 03/15/2025 3:17 PM [facility] Dexoyhemoglobin (HHB) % <1.0 % 03/15/2025 3:17 PM [facility] Methemoglobin <0.8 0.0 - 2.0 % 03/15/2025 3:17 PM [facility] Carboxyhemoglobin 1.4 0.0 - 2.0 % 2024 3:17 PM [facility] Comment:Carboxyhemoglobin No rmal Concentration: Non-smokers: 0-2%; Smokers: 0- 9%; Toxic: >20% O2 Content Arterial 12.1 Interpret within clinical context ml/dL 03/15/2025 3:17 PM [facility] Hemoglobin by COOX 8.2(L) 12.0 - 17.6 g/dL 03/15/2025 3:17 PM [facility] O2 Saturation Arterial 100 90 - 100 % 03/15/2025 3:17 PM [facility] Sodium Whole Blood 136 135 - 145 mmol/L 03/15/2025 3:17 PM [facility] Potassium Whole Blood 4.3 3.5 - 5.5 mmol/L 03/15/2025 3:17 PM [facility] Chloride WB 107 78 - 107 mmol/L 03/15/2025 3:17 PM [facility] Calcium Ionized 1.21 mmol/L 3:17 PM [facility] Ionized Calcium pH Adjusted 1.17(L) 1.19 - 1.34 mmol/L 03/15/2025 3:17 PM [facility] Anion Gap (AG) Arterial 9 6 - 16 mmol/L 03/15/2025 3:17 PM [facility] Glucose WB 225(H) 70 - 99 mg/dL 03/15/2025 3:17 PM [facility] Lactic Acid Whole Blood 1.2 <=2.0 mmol/L 03/15/2025 3:17 PM CDT [facility] Blood, arterial ARTERIAL BLOOD SPECIMEN / Unknown 03/15/2025 3:17 PM CDT 03/15/2025 3:18 PM CDT Cornelia Serra MD LAB - POINT OF CARE ORDERABLE S Final Result Performing Organization Address City/[facility]/ZIP Co de Phone Number [address] [address], [facility] [phone] * (ABNORMAL) TEG 6 GLOBAL HEMOSTASIS WITH HEPARIN NEUTRALIZATION (03/15/2025 3:10 PM CDT) [facility] CITRATED KAOLIN R (CK-R REACTION TIME) 5.4 4.6 - 9.1 min 03/15/2025 4:11 PM CDT [facility] CITRATED KAOLIN MA (CK-MA MAX AMPLITUDE) 70.3(H) 52.0 - 69.0 mm 03/15/2025 4:11 PM CDT [facility] CITRATED KAOLIN HEPARINASE R ( H R REACTION TIME) 4.7 4.3 - 8.3 min 03/15/2025 4:11 PM CDT [facility] CITRATED KAOLIN HEPARINASE LY30 ([facility] LY30 LYSIS) 0.0 0.0 - 3.2 % 03/15/2025 4:11 PM CDT [facility] CITRATED RAPIDTEG HEPARINASE MA ( CRTH MA MAX AMPLITUDE) 69.5(H) 53.0 - 69.0 mm 03/15/2025 4:11 PM CDT [facility] CITRATED FUCTIONAL FIBRINOGEN HEPARINASE ( CFFH MAX AMPLITUDE) 39.1(H) 15.0 - 34.0 mm 03/15/2025 4:11 PM CDT [facility] Blood BLOOD SPECIMEN / Unknown 03/15/2025 3:10 PM CDT 03/15/2025 3:18 PM CDT us Alexa Page MD LAB - HEMATOLOGY ORDERABL ES Final Result [address] [place] [address], [facility] [phone] * (ABNORMAL) CBC W/O DIFFERENTIAL (03/15/2025 3:10 PM CDT) WBC 22.3(H) 4.0 - 10.7 x10E9/L 03/15/2025 3:32 PM CDT [facility] RBC Count 2.77(L) 4.30 - 5.80 x10E12/L 03/15/2025 3:32 PM CDT [facility] Hemoglobin 8.0(L) 13.3 - 17.5 g/dL 03/15/2025 3:32 PM CDT [facility] Hematocrit 25.0(L) 38.7 - 51.1 % 03/15/2025 3:32 PM CDT [facility] MCV 90.3 80.0 - 98.0 fL 03/15/2025 3:32 PM CDT [facility] MCH 28.9 26.7 - 33.6 pg 03/15/2025 3:32 PM CDT [facility] MCHC 32.0 31.7 - 36.3 g/dL 03/15/2025 3:32 PM CDT [facility] RDW-CV 15.2(H) 11.3 - 14.8 % 03/15/2025 3:32 PM CDT [facility] Platelet Count 218 150 - 420 x10E9/L 03/15/2025 3:32 PM CDT [facility] MPV 10.0 7.8 - 11.4 fL 03/15/2025 3:32 PM T [facility] Blood BLOOD SPECIMEN / Unknown Venipuncture / Unknown 03/15/2025 3:10 PM CDT 03/15/2025 3:10 PM CDT us Alexa Page MD LAB - HEMATOLOGY ORDERABL ES Final Result [facility] [address] [place] [address], [facility] [phone] * PTT (03/15/2025 3:10 PM CDT) APTT 32.4 23.0 - 38.4 Seconds 03/15/2025 3:37 PM CDT [facility] Comment:Suggested therapeuti c range for full dose I.V. unfractionated heparin therapy for venous thromboembolism is 71 to 109 seconds. Blood BLOOD SPECIMEN / Unknown Venipuncture / Unknown 03/15/2025 3:10 PM CDT 03/15/2025 3:10 PM CDT Alexa Page MD LAB - COAGULATION ORDERAB LES Final Result [address] [address], [facility] [phone] * (ABNORMAL) PT-INR (03/15/2025 3:10 PM CDT) Pathologist [facility] PT 17.8(H) 12.1 - 14.8 Seconds 03/15/2025 3:37 PM CDT [facility] INR 1.5 See Comment 03/15/2025 3:37 PM CDT [facility] Comment:The suggested therap eutic range for standard coumadin (warfarin) therapy is an INR of 2.0-3.0. For high-risk patients (Mechanical Mitral Valve Prosthesis, etc.), the suggested prophylactic therapeutic range is an INR of 2.5-3.5. Blood BLOOD SPECIMEN / Unknown Venipuncture / Unknown 03/15/2025 3:10 PM CDT 03/15/2025 3:10 PM CDT Alexa Page MD LAB - COAGULATION ORDERAB LES Final Result [address] [address], [place] [phone] * (ABNORMAL) BLOOD GAS+COOX+LYTES+METAB ARTERIAL POCT (03/15/2025 2:59 PM CDT) pH Arterial 7.24(L) 7.35 - 7.45 pH 03/15/2025 2:59 PM [facility] pO2 Arterial 238(H) 80 - 100 mmHg 03/15/2025 2:59 PM [facility] pCO2 Arterial 52(H) 35 - 45 mmHg 2:59 PM [facility] HCO3 Arterial 22.3 20.0 - 30.0 mmol/L 03/15/2025 2:59 PM [facility] BE Arterial -5.0(L) -2.0 - 2.0 mmol/L 03/15/2025 2:59 PM [facility] Oxyhemoglobin Arterial 97.3 % 03/15/2025 2:59 PM [facility] Dexoyhemoglobin (HHB) % <1.0 % 03/15/2025 2:59 PM [facility] Methemoglobin 0.9 0.0 - 2.0 % 03/15/2025 2:59 PM [facility] Carboxyhemoglobin 1.8 0.0 - 2.0 % 2024 2:59 PM [facility] Comment:Carboxyhemoglobin No rmal Concentration: Non-smokers: 0-2%; Smokers: 0- 9%; Toxic: >20% O2 Content Arterial 12.2 Interpret within clinical context ml/dL 03/15/2025 2:59 PM [facility] Hemoglobin by COOX 8.5(L) 12.0 - 17.6 g/dL 03/15/2025 2:59 PM [facility] O2 Saturation Arterial 100 90 - 100 % 03/15/2025 2:59 PM [facility] Sodium Whole Blood 135 135 - 145 mmol/L 03/15/2025 2:59 PM [facility] Potassium Whole Blood 4.8 3.5 - 5.5 mmol/L 03/15/2025 2:59 PM [facility] Chloride WB 106 78 - 107 mmol/L 03/15/2025 2:59 PM [facility] Calcium Ionized 1.29 mmol/L 2:59 PM [facility] Ionized Calcium pH Adjusted 1.21 1.19 - 1.34 mmol/L 03/15/2025 2:59 PM CDT [facility] Anion Gap (AG) Arterial 7 6 - 16 mmol/L 03/15/2025 2:59 PM T [facility] Glucose WB 254(H) 70 - 99 mg/dL 03/15/2025 2:59 PM T [facility] Lactic Acid Whole Blood 1.1 <=2.0 mmol/L 03/15/2025 2:59 PM T [facility] Blood, arterial ARTERIAL BLOOD SPECIMEN / Unknown 03/15/2025 2:59 PM CDT 03/15/2025 3:00 PM CDT us Cornelia Serra MD LAB - POINT OF CARE ORDERABLE S Final Result [facility] [address] [place] [address], [facility] [phone] * (ABNORMAL) BLOOD GAS+COOX+LYTES+METAB ARTERIAL POCT (03/15/2025 2:42 PM CDT) pH Arterial 7.35 7.35 - 7.45 pH 03/15/2025 2:42 PM [facility] pO2 Arterial 238(H) 80 - 100 mmHg 03/15/2025 2:42 PM [facility] pCO2 Arterial 42 35 - 45 mmHg 2:42 PM [facility] HCO3 Arterial 23.2 20.0 - 30.0 mmol/L 03/15/2025 2:42 PM [facility] BE Arterial -2.3(L) -2.0 - 2.0 mmol/L 03/15/2025 2:42 PM [facility] Oxyhemoglobin Arterial 97.6 % 03/15/2025 2:42 PM [facility] Dexoyhemoglobin (HHB) % <1.0 % 03/15/2025 2:42 PM [facility] Methemoglobin 0.9 0.0 - 2.0 % 03/15/2025 2:42 PM [facility] Carboxyhemoglobin 1.5 0.0 - 2.0 % 2024 2:42 PM [facility] Comment:Carboxyhemoglobin No rmal Concentration: Non-smokers: 0-2%; Smokers: 0- 9%; Toxic: >20% O2 Content Arterial 10.8 Interpret within clinical context ml/dL 03/15/2025 2:42 PM [facility] Hemoglobin by COOX 7.4(L) 12.0 - 17.6 g/dL 03/15/2025 2:42 PM [facility] O2 Saturation Arterial 100 90 - 100 % 03/15/2025 2:42 PM [facility] Sodium Whole Blood 134(L) 135 - 145 mmol/L 03/15/2025 2:42 PM [facility] Potassium Whole Blood 6.2(HH) 3.5 - 5.5 mmol/L 03/15/2025 2:42 PM [facility] Chloride WB 106 78 - 107 mmol/L 03/15/2025 2:42 PM [facility] Calcium Ionized 1.74 mmol/L 2:42 PM [facility] Ionized Calcium pH Adjusted 1.70(HH) 1.19 - 1.34 mmol/L 03/15/2025 2:42 PM [facility] Anion Gap (AG) Arterial 5(L) 6 - 16 mmol/L 03/15/2025 2:42 PM [facility] Glucose WB 209(H) 70 - 99 mg/dL 03/15/2025 2:42 PM [facility] Lactic Acid Whole Blood 1.7 <=2.0 mmol/L 03/15/2025 2:42 PM [facility] Blood, arterial ARTERIAL BLOOD SPECIMEN / Unknown 03/15/2025 2:42 PM CDT 03/15/2025 2:43 PM [facility] - 03/15/2025 2:42 PM [facility] Critical Value Acknowledged Licensed healthcare provider notified us Cornelia Serra MD LAB - POINT OF CARE ORDERABLE S Final Result [facility] [address] [place] [address], [place] [phone] * ACT PLUS - POCT ([facility]) (03/15/2025 2:39 PM CDT) [facility] ACT PLUS 503 See result comments sec 03/15/2025 2:48 PM CDT [facility] Blood BLOOD SPECIMEN / Unknown 03/15/2025 2:39 PM CDT 03/15/2025 2:48 PM CDT Narrative [facility] - 03/15/2025 2:48 PM CDT ACT+ Therapeutic ranges for the ACT+ test in surgery areas are: Greater than (>) 360 seconds for surgical patients Greater than (>) 450 seconds for surgical bypass patients us Cornelia Serra MD LAB - COAGULATION ORDERABLES Final Result Performing Organization Address City/[facility]/ZIP Co de Phone Number [address] [address], [place] [phone] * FIBRINOGEN ACTIVITY (03/15/2025 2:34 PM CDT) [facility] Fibrinogen Clauss 362 200 - 400 mg/dL 03/15/2025 3:03 PM CDT [facility] Blood BLOOD SPECIMEN / Unknown Venipuncture / Unknown 03/15/2025 2:34 PM CDT 03/15/2025 2:34 PM CDT us Alexa Page MD LAB - COAGULATION ORDERAB LES Final Result [address] [address], [place] [phone] * PLATELET COUNT AUTO CITRATED BLOOD (03/15/2025 2:33 PM CDT) [facility] Platelet Count Citrated 215 150 - 420 [id number] 03/15/2025 3:49 PM CDT [facility] Blood BLOOD SPECIMEN / Unknown Venipuncture / Unknown 03/15/2025 2:33 PM CDT 03/15/2025 2:33 PM CDT Narrative [facility] - 03/15/2025 3:49 PM CDT This test was developed and its performance characteristics determined by the clinical laboratories of [facility] and [facility]. It has not been cleared and approved by the [place] Food and Drug Administration. Alexa Page MD LAB - HEMATOLOGY ORDERABL ES Final Result Performing Organization Address [facility]/ZIP Co de Phone Number [address] [address], [facility] [phone] * ACT PLUS - POCT ([facility]) (03/15/2025 2:07 PM CDT) ACT PLUS >1,000 See result comments sec 03/15/2025 2:48 PM CDT [facility] Blood BLOOD SPECIMEN / Unknown 03/15/2025 2:07 PM CDT 03/15/2025 2:48 PM CDT Narrative [facility] - 03/15/2025 2:48 PM CDT ACT+ Therapeutic ranges for the ACT+ test in surgery areas are: Greater than (>) 360 seconds for surgical patients Greater than (>) 450 seconds for surgical bypass patients us Cornelia Serra MD LAB - COAGULATION ORDERABLES Final Result Performing Organization Address [facility] Center/[facility] Co de Phone Number [address] [address], [facility] [phone] * (ABNORMAL) BLOOD GAS+COOX+LYTES+METAB ARTERIAL POCT (03/15/2025 2:06 PM CDT) pH Arterial 7.32(L) 7.35 - 7.45 pH 03/15/2025 2:06 PM CDT [facility] pO2 Arterial 345(H) 80 - 100 mmHg 03/15/2025 2:06 PM CDT [facility] pCO2 Arterial 46(H) 35 - 45 mmHg 2:06 PM CDT [facility] HCO3 Arterial 23.7 20.0 - 30.0 mmol/L 03/15/2025 2:06 PM [facility] BE Arterial -2.3(L) -2.0 - 2.0 mmol/L 03/15/2025 2:06 PM [facility] Oxyhemoglobin Arterial 97.8 % 03/15/2025 2:06 PM [facility] Dexoyhemoglobin (HHB) % <1.0 % 03/15/2025 2:06 PM [facility] Methemoglobin 1.0 0.0 - 2.0 % 03/15/2025 2:06 PM [facility] Carboxyhemoglobin 1.2 0.0 - 2.0 % 2024 2:06 PM [facility] Comment:Carboxyhemoglobin No rmal Concentration: Non-smokers: 0-2%; Smokers: 0- 9%; Toxic: >20% O2 Content Arterial 11.0 Interpret within clinical context ml/dL 03/15/2025 2:06 PM [facility] Hemoglobin by COOX 7.3(L) 12.0 - 17.6 g/dL 03/15/2025 2:06 PM [facility] O2 Saturation Arterial 100 90 - 100 % 03/15/2025 2:06 PM [facility] Sodium Whole Blood 133(L) 135 - 145 mmol/L 03/15/2025 2:06 PM [facility] Potassium Whole Blood 5.8(H) 3.5 - 5.5 mmol/L 03/15/2025 2:06 PM [facility] Chloride WB 105 78 - 107 mmol/L 03/15/2025 2:06 PM [facility] Calcium Ionized 1.10 mmol/L 2:06 PM [facility] Ionized Calcium pH Adjusted 1.06(L) 1.19 - 1.34 mmol/L 03/15/2025 2:06 PM [facility] Anion Gap (AG) Arterial 4(L) 6 - 16 mmol/L 03/15/2025 2:06 PM [facility] Glucose WB 209(H) 70 - 99 mg/dL 03/15/2025 2:06 PM CDT [facility] Lactic Acid Whole Blood 1.0 <=2.0 mmol/L 03/15/2025 2:06 PM CDT [facility] Blood, arterial ARTERIAL BLOOD SPECIMEN / Unknown 03/15/2025 2:06 PM CDT 03/15/2025 2:07 PM CDT Cornelia Serra MD LAB - POINT OF CARE ORDERABLE S Final Result [facility] [address] [place] [address], [facility] [phone] * PATHOLOGY TISSUE (03/15/2025 1:53 PM CDT) Case Report Surgical Pathology Report Case: [id number] Authorizing Provider: Rahul Hernandez Collected: 03/15/2025 01:53 PM MD Tyrell Ordering Location: [facility]UN[facility] OP Received: 03/16/2025 05:08 AM Pathologist: Ericka Robert MD Specimen: Mitral Valve, Anterior leaflet of mitral valve 03/17/2025 3:58 PM CDT [facility] Final Diagnosis Heart, mitral valve, replacement (A): - Endocarditis 03/17/2025 3:58 PM CDT [facility] at 1558 CDT Microscopic Description and Comment Microscopic examination substantiates the final diagnosis. There is still some subendocardial mixed inflammatory infiltrate with neutrophils and lymphocytes. There are no fibrinous vegetation fragments. 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 2 cm vegetation per SINTIA. Valve incompetent. 03/17/2025 3:58 PM CDT [facility] Gross Description Received in formalin, labeled with the patient's name Marshall Espinal JrDeondre, specimen A, consists of a 3.2 x 1.8 x 0.1 cm portion of henry-white to henry-yellow heterogeneous rubbery tissue, consistent with mitral valve leaflet, which has multiple portions of attached henry-white thin delicate chordae tendinea. There are no vegetations or calcific nodules present. Keno Writer / Runner sections are submitted in a single cassette labeled A1. RB 03/17/2025 3:58 PM CDT [facility] Pathologist Location at [facility] 03/17/2025 3:58 PM CDT [facility] Disclaimer The performance characteristics of all immunohistochemical and indirect immunofluorescence stains (if any) cited in this report were determined by the Histopathology Laboratory of [facility]. Some of these tests were developed by our own laboratory and have not been cleared or approved by the US Food and Drug Administration. The FDA does not require this test to go through premarket FDA review. These tests are used for clinical purposes. They should not be regarded as investigational or for research. This laboratory is certified under the Clinical Laboratory Improvement Amendments (CLIA) as qualified to perform high complexity clinical laboratory testing. This case has been personally reviewed and interpreted by the attending (teaching) pathologist. 03/17/2025 3:58 PM CDT [facility] Embedded Images 03/17/2025 3:58 PM CDT [facility] Resection without Tumor ENTIRE MITRAL VALVE / Unknown 03/15/2025 1:53 PM CDT 03/16/2025 5:08 AM CDT Comment:Pre-op diagnosis: mitral valve regurgitation Rahul Hernandez MD LAB - PATHOLOGY/CYT OLOGY ORDERABLES Final Result [facility] [address] [phone] * (ABNORMAL) BLOOD GAS+COOX+LYTES+METAB ARTERIAL POCT (03/15/2025 1:30 PM CDT) pH Arterial 7.25(L) 7.35 - 7.45 pH 03/15/2025 1:30 PM CDT [facility] pO2 Arterial 335(H) 80 - 100 mmHg 03/15/2025 1:30 PM T [facility] pCO2 Arterial 50(H) 35 - 45 mmHg 1:30 PM CDT [facility] HCO3 Arterial 21.9 20.0 - 30.0 mmol/L 03/15/2025 1:30 PM T [facility] BE Arterial -5.1(L) -2.0 - 2.0 mmol/L 03/15/2025 1:30 PM [facility] Oxyhemoglobin Arterial 98.4 % 03/15/2025 1:30 PM [facility] Dexoyhemoglobin (HHB) % <1.0 % 03/15/2025 1:30 PM [facility] Methemoglobin <0.8 0.0 - 2.0 % 03/15/2025 1:30 PM [facility] Carboxyhemoglobin 1.1 0.0 - 2.0 % 2024 1:30 PM [facility] Comment:Carboxyhemoglobin No rmal Concentration: Non-smokers: 0-2%; Smokers: 0- 9%; Toxic: >20% O2 Content Arterial 11.4 Interpret within clinical context ml/dL 03/15/2025 1:30 PM [facility] Hemoglobin by COOX 7.6(L) 12.0 - 17.6 g/dL 03/15/2025 1:30 PM [facility] O2 Saturation Arterial 100 90 - 100 % 03/15/2025 1:30 PM [facility] Sodium Whole Blood 134(L) 135 - 145 mmol/L 03/15/2025 1:30 PM [facility] Potassium Whole Blood 5.9(H) 3.5 - 5.5 mmol/L 03/15/2025 1:30 PM [facility] Chloride WB 106 78 - 107 mmol/L 03/15/2025 1:30 PM [facility] Calcium Ionized 1.12 mmol/L 1:30 PM [facility] Ionized Calcium pH Adjusted 1.05(L) 1.19 - 1.34 mmol/L 03/15/2025 1:30 PM [facility] Anion Gap (AG) Arterial 6 6 - 16 mmol/L 03/15/2025 1:30 PM [facility] Glucose WB 177(H) 70 - 99 mg/dL 03/15/2025 1:30 PM [facility] Lactic Acid Whole Blood 1.3 <=2.0 mmol/L 03/15/2025 1:30 PM [facility] Blood, arterial ARTERIAL BLOOD SPECIMEN / Unknown 03/15/2025 1:30 PM CDT 03/15/2025 1:31 PM CDT us Cornelia Serra MD LAB - POINT OF CARE ORDERABLE S Final Result Performing Organization Address City/[facility]/ZIP Co de Phone Number [address] [address], [facility] [phone] * ACT PLUS - POCT ([facility]) (03/15/2025 1:29 PM CDT) ACT PLUS 514 See result comments sec 03/15/2025 1:38 PM CDT [facility] Blood BLOOD SPECIMEN / Unknown 03/15/2025 1:29 PM CDT 03/15/2025 1:38 PM CDT Narrative [facility] - 03/15/2025 1:38 PM CDT ACT+ Therapeutic ranges for the ACT+ test in surgery areas are: Greater than (>) 360 seconds for surgical patients Greater than (>) 450 seconds for surgical bypass patients us Cornelia Serra MD LAB - COAGULATION ORDERABLES Final Result Performing Organization Address City/[facility]/ZIP Co de Phone Number [address] [address], [facility] [phone] * (ABNORMAL) BLOOD GAS+COOX+LYTES+METAB ARTERIAL POCT (03/15/2025 1:15 PM CDT) pH Arterial 7.35 7.35 - 7.45 pH 03/15/2025 1:15 PM CDT [facility] pO2 Arterial 357(H) 80 - 100 mmHg 03/15/2025 1:15 PM CDT [facility] pCO2 Arterial 43 35 - 45 mmHg 1:15 PM CDT [facility] HCO3 Arterial 23.7 20.0 - 30.0 mmol/L 03/15/2025 1:15 PM CDT [facility] BE Arterial -1.8 -2.0 - 2.0 mmol/L 03/15/2025 1:15 PM [facility] Oxyhemoglobin Arterial 97.0 % 03/15/2025 1:15 PM [facility] Dexoyhemoglobin (HHB) % 1.3 % 03/15/2025 1:15 PM [facility] Methemoglobin 1.4 0.0 - 2.0 % 03/15/2025 1:15 PM [facility] Carboxyhemoglobin 0.4 0.0 - 2.0 % 2024 1:15 PM [facility] Comment:Carboxyhemoglobin No rmal Concentration: Non-smokers: 0-2%; Smokers: 0- 9%; Toxic: >20% O2 Content Arterial 11.1 Interpret within clinical context ml/dL 03/15/2025 1:15 PM [facility] Hemoglobin by COOX 7.4(L) 12.0 - 17.6 g/dL 03/15/2025 1:15 PM [facility] O2 Saturation Arterial 99 90 - 100 % 03/15/2025 1:15 PM [facility] Sodium Whole Blood 134(L) 135 - 145 mmol/L 03/15/2025 1:15 PM [facility] Potassium Whole Blood 4.9 3.5 - 5.5 mmol/L 03/15/2025 1:15 PM [facility] Chloride WB 104 78 - 107 mmol/L 03/15/2025 1:15 PM [facility] Calcium Ionized 1.02 mmol/L 1:15 PM [facility] Ionized Calcium pH Adjusted 1.00(L) 1.19 - 1.34 mmol/L 03/15/2025 1:15 PM [facility] Anion Gap (AG) Arterial 6 6 - 16 mmol/L 03/15/2025 1:15 PM [facility] Glucose WB 109(H) 70 - 99 mg/dL 03/15/2025 1:15 PM [facility] Lactic Acid Whole Blood 0.8 <=2.0 mmol/L 03/15/2025 1:15 PM [facility] Blood, arterial ARTERIAL BLOOD SPECIMEN / Unknown 03/15/2025 1:15 PM CDT 03/15/2025 1:16 PM CDT Cornelia Serra MD LAB - POINT OF CARE ORDERABLE S Final Result Performing Organization Address [facility] Co de Phone Number [address] [address], [facility] [phone] * ACT PLUS - POCT ([facility]) (03/15/2025 1:14 PM CDT) ACT PLUS 471 See result comments sec 03/15/2025 1:38 PM CDT [facility] Blood BLOOD SPECIMEN / Unknown 03/15/2025 1:14 PM CDT 03/15/2025 1:38 PM CDT Narrative [facility] - 03/15/2025 1:38 PM CDT ACT+ Therapeutic ranges for the ACT+ test in surgery areas are: Greater than (>) 360 seconds for surgical patients Greater than (>) 450 seconds for surgical bypass patients us Cornelia Serra MD LAB - COAGULATION ORDERABLES Final Result Performing Organization Address [facility] Co de Phone Number [address] [address], [facility] [phone] * ACT PLUS - POCT ([facility]) (03/15/2025 1:04 PM CDT) ACT PLUS 503 See result comments sec 03/15/2025 1:38 PM CDT [facility] Blood BLOOD SPECIMEN / Unknown 03/15/2025 1:04 PM CDT 03/15/2025 1:38 PM CDT Narrative [facility] - 03/15/2025 1:38 PM CDT ACT+ Therapeutic ranges for the ACT+ test in surgery areas are: Greater than (>) 360 seconds for surgical patients Greater than (>) 450 seconds for surgical bypass patients Cornelia Serra MD LAB - COAGULATION ORDERABLES Final Result [address] [address], [facility] [phone] * ACT PLUS - POCT ([facility]) (03/15/2025 12:53 PM CDT) ACT PLUS 416 See result comments sec 03/15/2025 1:38 PM CDT [facility] Blood BLOOD SPECIMEN / Unknown 03/15/2025 12:53 PM CDT 03/15/2025 1:38 PM CDT Narrative [facility] - 03/15/2025 1:38 PM CDT ACT+ Therapeutic ranges for the ACT+ test in surgery areas are: Greater than (>) 360 seconds for surgical patients Greater than (>) 450 seconds for surgical bypass patients Cornelia Serra MD LAB - COAGULATION ORDERABLES Final Result Performing Organization Address [facility]/ZIP Co de Phone Number [address] [address], [facility] [phone] * (ABNORMAL) BLOOD GAS+COOX+LYTES+METAB ARTERIAL POCT (03/15/2025 12:52 PM CDT) pH Arterial 7.33(L) 7.35 - 7.45 pH 03/15/2025 12:52 PM [facility] pO2 Arterial 409(H) 80 - 100 mmHg 03/15/2025 12:52 PM [facility] pCO2 Arterial 41 35 - 45 mmHg 12:52 PM CDT [facility] HCO3 Arterial 21.6 20.0 - 30.0 mmol/L 03/15/2025 12:52 PM [facility] BE Arterial -4.1(L) -2.0 - 2.0 mmol/L 03/15/2025 12:52 PM [facility] Oxyhemoglobin Arterial 97.6 % 03/15/2025 12:52 PM T [facility] Dexoyhemoglobin (HHB) % <1.0 % 03/15/2025 12:52 PM [facility] Methemoglobin 1.1 0.0 - 2.0 % 03/15/2025 12:52 PM [facility] Carboxyhemoglobin 1.3 0.0 - 2.0 % 2024 12:52 PM [facility] Comment:Carboxyhemoglobin No rmal Concentration: Non-smokers: 0-2%; Smokers: 0- 9%; Toxic: >20% O2 Content Arterial 13.8 Interpret within clinical context ml/dL 03/15/2025 12:52 PM [facility] Hemoglobin by COOX 9.2(L) 12.0 - 17.6 g/dL 03/15/2025 12:52 PM [facility] O2 Saturation Arterial 100 90 - 100 % 03/15/2025 12:52 PM [facility] Sodium Whole Blood 134(L) 135 - 145 mmol/L 03/15/2025 12:52 PM [facility] Potassium Whole Blood 4.3 3.5 - 5.5 mmol/L 03/15/2025 12:52 PM [facility] Chloride WB 106 78 - 107 mmol/L 03/15/2025 12:52 PM [facility] Calcium Ionized 1.15 mmol/L 12:52 PM [facility] Ionized Calcium pH Adjusted 1.12(L) 1.19 - 1.34 mmol/L 03/15/2025 12:52 PM [facility] Anion Gap (AG) Arterial 6 6 - 16 mmol/L 03/15/2025 12:52 PM [facility] Glucose WB 106(H) 70 - 99 mg/dL 03/15/2025 12:52 PM [facility] Lactic Acid Whole Blood 0.6 <=2.0 mmol/L 03/15/2025 12:52 PM [facility] Blood, arterial ARTERIAL BLOOD SPECIMEN / Unknown 03/15/2025 12:52 PM CDT 03/15/2025 12:53 PM CDT Cornelia Serra MD LAB - POINT OF CARE ORDERABLE S Final Result [address] [address], [facility] [phone] * ACT PLUS - POCT ([facility]) (03/15/2025 12:44 PM CDT) ACT PLUS 106 See result comments sec 03/15/2025 12:42 PM CDT [facility] Blood BLOOD SPECIMEN / Unknown 03/15/2025 12:44 PM CDT 03/15/2025 12:42 PM CDT Narrative [facility] - 03/15/2025 12:42 PM CDT ACT+ Therapeutic ranges for the ACT+ test in surgery areas are: Greater than (>) 360 seconds for surgical patients Greater than (>) 450 seconds for surgical bypass patients Cornelia Serra MD LAB - COAGULATION ORDERABLES Final Result Performing Organization Address [facility] Co de Phone Number [address] [address], [facility] [phone] * (ABNORMAL) BLOOD GAS+COOX+LYTES+METAB ARTERIAL POCT (03/15/2025 12:33 PM CDT) pH Arterial 7.35 7.35 - 7.45 pH 03/15/2025 12:33 PM CDT [facility] pO2 Arterial 447(H) 80 - 100 mmHg 03/15/2025 12:33 PM [facility] pCO2 Arterial 41 35 - 45 mmHg 12:33 PM T [facility] HCO3 Arterial 22.6 20.0 - 30.0 mmol/L 03/15/2025 12:33 PM T [facility] BE Arterial -2.8(L) -2.0 - 2.0 mmol/L 03/15/2025 12:33 PM [facility] Oxyhemoglobin Arterial 97.7 % 03/15/2025 12:33 PM T [facility] Dexoyhemoglobin (HHB) % <1.0 % 03/15/2025 12:33 PM CDT [facility] Methemoglobin 1.1 0.0 - 2.0 % 03/15/2025 12:33 PM [facility] Carboxyhemoglobin 1.2 0.0 - 2.0 % 2024 12:33 PM [facility] Comment:Carboxyhemoglobin No rmal Concentration: Non-smokers: 0-2%; Smokers: 0- 9%; Toxic: >20% O2 Content Arterial 15.5 Interpret within clinical context ml/dL 03/15/2025 12:33 PM [facility] Hemoglobin by COOX 10.4(L) 12.0 - 17.6 g/dL 03/15/2025 12:33 PM [facility] O2 Saturation Arterial 100 90 - 100 % 03/15/2025 12:33 PM [facility] Sodium Whole Blood 135 135 - 145 mmol/L 03/15/2025 12:33 PM [facility] Potassium Whole Blood 4.3 3.5 - 5.5 mmol/L 03/15/2025 12:33 PM [facility] Chloride WB 105 78 - 107 mmol/L 03/15/2025 12:33 PM [facility] Calcium Ionized 1.21 mmol/L 12:33 PM [facility] Ionized Calcium pH Adjusted 1.19 1.19 - 1.34 mmol/L 03/15/2025 12:33 PM [facility] Anion Gap (AG) Arterial 7 6 - 16 mmol/L 03/15/2025 12:33 PM [facility] Glucose WB 110(H) 70 - 99 mg/dL 03/15/2025 12:33 PM [facility] Lactic Acid Whole Blood 0.5 <=2.0 mmol/L 03/15/2025 12:33 PM [facility] Blood, arterial ARTERIAL BLOOD SPECIMEN / Unknown 03/15/2025 12:33 PM CDT 03/15/2025 12:34 PM [facility] us Cornelia Serra MD LAB - POINT OF CARE ORDERABLE S Final Result [facility] [address] [address], [facility] [phone] * BLOOD GAS KATHY+LYTES+METAB+COOX POC NOTIF (03/15/2025 8:06 AM CDT) Comment Notification Label Only - See Separate Report 03/15/2025 9:31 AM CDT [facility] Other MISCELLANEOUS SAMPLES / Unknown 03/15/2025 8:06 AM CDT 03/15/2025 8:07 AM CDT us Rahul Hernandez MD LAB - BLOOD GASES O RDERABLES Final Result Performing Organization Address City/[facility]/ZIP Co de Phone Number [address] [phone], [facility] [phone] * BLOOD GAS ART+LYTES+METAB+COOX POC NOTIF (03/15/2025 8:06 AM CDT) Comment Notification Label Only - See Separate Report 03/15/2025 9:31 AM CDT [facility] Other MISCELLANEOUS SAMPLES / Unknown 03/15/2025 8:06 AM CDT 03/15/2025 8:07 AM CDT us Rahul Hernandez MD LAB - BLOOD GASES O RDERABLES Final Result Performing Organization Address City/[facility]/ZIP Co de Phone Number [address] [address], [facility] [phone] * PHOSPHORUS BLOOD (03/15/2025 6:31 AM CDT) Phosphorus 4.2 2.8 - 5.1 mg/dL 03/15/2025 7:46 AM CDT [facility] Blood BLOOD SPECIMEN / Unknown Lab Venipuncture / Unknown 03/15/2025 6:31 AM CDT 03/15/2025 7:00 AM CDT Adalberto Arroyo MD LAB - CHEMISTRY ORDERABLES F inal Result [address] [address], [facility] [phone] * MAGNESIUM BLOOD (03/15/2025 6:31 AM CDT) [facility] Magnesium 1.9 1.6 - 2.6 mg/dL 03/15/2025 7:46 AM [facility] Blood BLOOD SPECIMEN / Unknown Lab Venipuncture / Unknown 03/15/2025 6:31 AM CDT 03/15/2025 7:00 AM CDT Adalberto Arroyo MD LAB - CHEMISTRY ORDERABLES F inal Result Performing Organization Address [facility]/ZIP Co de Phone Number [address] [address], [facility] [phone] * (ABNORMAL) COMPREHENSIVE METABOLIC PANEL (03/15/2025 6:31 AM CDT) Pathologist [facility] BUN 35(H) 7 - 26 mg/dL 03/15/2025 7:46 AM [facility] Creatinine 2.78(H) 0.71 - 1.16 mg/dL 03/15/2025 7:46 AM [facility] Sodium 135(L) 136 - 145 mmol/L 03/15/2025 7:46 AM [facility] Potassium 4.3 3.5 - 4.5 mmol/L 03/15/2025 7:46 AM [facility] Chloride 108(H) 98 - 107 mmol/L 03/15/2025 7:46 AM [facility] CO2 19(L) 22 - 29 mmol/L 03/15/2025 7:46 AM [facility] Glucose 90 70 - 99 mg/dL 03/15/2025 7:46 AM [facility] Calcium 9.6 8.4 - 10.2 mg/dL 03/15/2025 7:46 AM [facility] Protein Total 8.0 6.0 - 8.3 g/dL 03/15/2025 7:46 AM [facility] Albumin 3.3(L) 3.4 - 5.0 g/dL 03/15/2025 7:46 AM [facility] Bilirubin Total 0.2 0.2 - 1.2 mg/dL 03/15/2025 7:46 AM [facility] Alkaline Phosphatase 123 40 - 150 U/L 03/15/2025 7:46 AM [facility] ALT 6 5 - 55 U/L 03/15/2025 7:46 AM [facility] AST 10 5 - 34 U/L 03/15/2025 7:46 AM [facility] Anion Gap 8 6 - 16 03/15/2025 7:46 AM [facility] BUN/Creatinine Ratio 13 7 - 23 03/15/2025 7:46 AM [facility] Osmolality Calculated 288 275 - 295 mOsm/kg 03/15/2025 7:46 AM [facility] Albumin/Globulin Ratio 0.7(L) 1.1 - 2.3 03/15/2025 7:46 AM [facility] eGFR by CKD-EPI 24(L) >=90 mL/min/1.7 3 m2 03/15/2025 7:46 AM [facility] Comment:Estimated Glomerular Filtration Rate (eGFR) calculated using the CKD-EPI Creatinine Equation (2020), per the National Kidney Foundation and [employer] Neph[employer] recommendations. Blood BLOOD SPECIMEN / Unknown Lab Venipuncture / Unknown 03/15/2025 6:31 AM CDT 03/15/2025 7:00 AM CDT us Adalberto Arroyo MD LAB - CHEMISTRY ORDERABLES F inal Result [facility] [address] [place] [address], [facility] [phone] * (ABNORMAL) CBC W AUTO DIFFERENTIAL (03/15/2025 6:31 AM CDT) WBC 11.7(H) 4.0 - 10.7 x10E9/L 03/15/2025 7:08 AM [facility] RBC Count 3.83(L) 4.30 - 5.80 x10E12/L 03/15/2025 7:08 AM [facility] Hemoglobin 10.8(L) 13.3 - 17.5 g/dL 03/15/2025 7:08 AM [facility] Hematocrit 34.4(L) 38.7 - 51.1 % 03/15/2025 7:08 AM [facility] MCV 89.8 80.0 - 98.0 fL 03/15/2025 7:08 AM [facility] MCH 28.2 26.7 - 33.6 pg 03/15/2025 7:08 AM [facility] MCHC 31.4(L) 31.7 - 36.3 g/dL 03/15/2025 7:08 AM [facility] RDW-CV 15.1(H) 11.3 - 14.8 % 03/15/2025 7:08 AM [facility] Platelet Count 400 150 - 420 x10E9/L 03/15/2025 7:08 AM [facility] MPV 9.4 7.8 - 11.4 fL 03/15/2025 7:08 AM [facility] Neutrophil % 67.4 41.0 - 74.0 % 03/15/2025 7:08 AM [facility] Lymphocyte % 16.7(L) 17.0 - 47.0 % 03/15/2025 7:08 AM [facility] Monocyte % 9.0 3.0 - 11.0 % 03/15/2025 7:08 AM [facility] Eosinophil % 4.3 0.0 - 7.0 % 03/15/2025 7:08 AM [facility] Basophil % 0.8 0.0 - 1.6 % 03/15/2025 7:08 AM [facility] Immature Granulocytes % 1.8(H) 0.0 - 1.0 % 03/15/2025 7:08 AM [facility] Neutrophil Absolute 7.86(H) 1.60 - 7.50 x10E9/L 03/15/2025 7:08 AM [facility] Lymphocyte Absolute 1.94 1.00 - 4.40 x10E9/L 03/15/2025 7:08 AM CDT [facility] Monocyte Absolute 1.05(H) 0.15 - 1.00 x10E9/L 03/15/2025 7:08 AM CDT [facility] Eosinophil Absolute 0.50 0.00 - 0.60 x10E9/L 03/15/2025 7:08 AM CDT [facility] Basophil Absolute 0.09 0.00 - 0.13 x10E9/L 03/15/2025 7:08 AM CDT [facility] Blood BLOOD SPECIMEN / Unknown Lab Venipuncture / Unknown 03/15/2025 6:31 AM CDT 03/15/2025 7:00 AM CDT us Adalberto Arroyo MD LAB - HEMATOLOGY ORDERABLES Final Result [address] [id number], [facility] [phone] * ECHO ANES SINTIA INTRAOP (03/15/2025 6:23 AM CDT) AV mn grad 4 mmHg SSM CV FU JI PACS AV VTI 24 cm SSM CV FUJ I PACS AV pk valeriano 125 cm/s SSM CV FUJ I PACS AV pk grad 6 mmHg SSM CV FU JI PACS Aortic annulus 2.7 cm SSM C V FUJI PACS AV area cont VTI 3.437 cm SSM CV FUJI PACS AV area pk valeriano 3.771 cm SSM CV FUJI PACS Ascending aorta 3.6 cm SSM CV FUJI PACS ST junction 3 cm SSM CV F UJI PACS Sinus of Valsalva 3.7 cm SS M CV FUJI PACS LVOT diam 2.2 cm SSM CV FUJ I PACS LVOT VTI 21.7 cm SSM CV FUJ I PACS LVOT pk valeriano 124 cm/s SSM CV F UJI PACS LVOT pk grad 4 mmHg SSM CV FUJI PACS MR VTI 144 cm SSM CV FUJ I PACS MV mn grad 1 mmHg SSM CV FU JI PACS MV VTI 16.4 cm SSM CV FUJ I PACS MV pk valeriano regurg 451 cm/s SSM CV FUJI PACS PV VTI 38.7 cm SSM CV FUJ I PACS PV pk valeriano 189 cm/s SSM CV FUJ I PACS TAPSE 3.09 cm SSM CV FUJ I PACS TR pk valeriano 214 cm/s SSM CV FUJ I PACS Dimensionless Index 0.904 unitless SSM CV FUJI PACS Anatomical Region Laterality Modality Chest Ultrasound 03/15/2025 10:0 1 AM CDT Narrative 03/15/2025 5:38 PM CDT Summary * The left ventricle is normal in size, with normal systolic function. * Left ventricular systolic function is normal with an estimated ejection fraction of 55-60% by visual estimate. * There is severely increased left ventricular wall thickness. * There is moderate to severe mitral valve regurgitation. 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 * Right ventricle is at the upper limits of normal in size with normal systolic function. Intra Op Procedure Findings Post Procedure * Successful MVR with size 31 bioprosthetic valve is seen with function grossly intact. no PVLs. mean gradient 1mmhg. LV and RV Function back to baseline. Patient Info Name: Marshall Espinal Age: 65 years : 1960 Gender: Male Exam Date: 03/15/2025 10:01 AM Patient Status: I/P Study Site: [facility] Primary Location: [facility] EStudy Info Exam Type: ECHO ANES SINTIA INTRAOP Indications R09.89 - Endocarditis, suspected * A complete transesophageal echo was performed using 2D, color Doppler, and spectral Doppler. Staff Referring Physician: Cornelia Serra Ordering Provider: Cornelia Serra Performing Physician: Alexa Page Complications * There were no complications prior to, during or in recovery from the transesophageal echocardiogram. Procedure Details The transesophageal probe was passed into the posterior pharynx, mid-esophagus, distal esophagus, and gastric fundus. The procedure was completed without complications. Left Ventricle The left ventricle is normal in size. Left ventricular systolic function is normal. There is severely increased left ventricular wall thickness. Left ventricular segmental wall motion is normal. The left ventricular diastolic function is consistent with grade II diastolic dysfunction and increased left atrial filling pressure. Left ventricular systolic function is normal with an estimated ejection fraction of 55-60% by visual estimate. Right Ventricle The right ventricle is at the upper limits of normal in size. Right ventricular systolic function is normal. Left Atrium The left atrium is normal in size. Right Atrium The right atrium is normal in size. Atrial Septum Intact interatrial septum visualized by 2D and color Doppler and agitated saline imaging. Atrial Appendage The left atrial appendage is normal in shape with normal velocity, and there is no thrombus. Aortic Valve The aortic valve is trileaflet. There is no aortic valve stenosis. There is trace aortic valve regurgitation. Pulmonic Valve The pulmonic valve is not well visualized, but grossly normal. There is no pulmonic valve stenosis. There is no pulmonic regurgitation. Mitral Valve The mitral valve is mildly thickened. There is no mitral valve stenosis. There is moderate to severe mitral valve regurgitation. 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 Tricuspid Valve The tricuspid valve is grossly normal. There is no tricuspid valve stenosis. There is trace tricuspid valve regurgitation. Pericardium/Pleural There is no pericardial effusion. Aorta The aortic root at the sinus of Valsalva is normal in size. The ascending aorta is normal in size. Measurements Left Ventricular Outflow Tract Name Value Normal LVOT 2D LVOT Diameter 2.2 cm LVOT Area 3.8 cm2 LVOT Doppler LVOT Peak Velocity 1.2 m/s LVOT Peak Gradient 4 mmHg LVOT Mean Velocity 62.80 cm/s LVOT Mean Gradient 1 mmHg LVOT VTI 21.7 cm LVOT VTI/AV VTI Ratio 0.9 LVOT Stroke Volume 82 ml Pulmonic Valve Name Value Normal PV Doppler PV Peak Velocity 1.9 m/s PV Peak Gradient 14 mmHg PV Mean Gradient 5 mmHg Mitral Valve Name Value Normal MV Doppler MV Peak Gradient 1 mmHg MV Mean Gradient 1 mmHg MV DI (VTI) 0.76 MV Area (Cont Eq VTI) 5.03 cm2 MV Regurgitation Doppler MR Peak Gradient 81 mmHg MR Vena Contracta 3.0 mm Tricuspid Valve Name Value Normal TV Regurgitation Doppler TR Peak Velocity 2.1 m/s TR Peak Gradient 18 mmHg Aorta Name Value Normal Ascending Aorta Ao Root Diameter (2D) 3.1 cm Ao Annulus Diameter 2.7 cm 2.3-2.9 Sinus of Valsalva Diameter 3.7 cm 2.8-4.0 Ao Sinotub Junction Diameter 3.0 cm 2.6-3.2 Asc Ao Diameter 3.6 cm 2.2-3.8 Aortic Valve Name Value Normal AV Doppler AV Peak Velocity 1.25 m/s AV Peak Gradient 6 mmHg AV Mean Gradient 4 mmHg AV VTI 24 cm AV Area (Cont Eq VTI) 3.44 cm2 >=2.00 AV Area (Cont Eq Valeriano) 3.77 cm2 AV DI (VTI) 0.90 AV DI (Valeriano) 0.99 AV Regurgitation 2D LVOT Area 3.80 cm2 Ventricles Name Value Normal RV Dimensions 2D/MM TAPSE 3.1 cm >=1.7 Report Signatures Finalized by Alexa Page on 03/15/2025 05:38 PM Procedure Note Alexa Page MD - 03/15/2025 Summary * The left ventricle is normal in size, with normal systolic function. * Left ventricular systolic function is normal with an estimatedejection fraction of 55-60% by visual estimate. * There is severely increased left ventricular wall thickness. * There is moderate to severe mitral valve regurgitation. * Findings consistent with a mobile vegetative mass 1.5 x 0.55cmattached to the anterior mitral valve leaflet. * Right ventricle is at the upper limits of normal in size with normal systolic function. Intra Op Procedure Findings Post Procedure * Successful MVR with size 31 bioprosthetic valve is seen withfunction grossly intact. no PVLs. mean gradient 1mmhg. LV and RV Function back to baseline. Patient Info Name: Marshall Espinal Age: 65 years : 1960 Gender: Male Exam Date: 03/15/2025 10:01 AM Patient Status: I/P Study [facility] Type: ECHO ANES SINTIA INTRAOP Indications R09.89 - Endocarditis, suspected * A complete transesophageal echo was performed using 2D, color Doppler,and spectral Doppler. Staff Referring Physician: Cornelia Serra Ordering Provider: Cornelia Serra Performing Physician: Alexa Page Complications * There were no complications prior to, during or in recovery from the transesophageal echocardiogram. Procedure Details The transesophageal probe was passed into the posterior pharynx, mid-esophagus, distal esophagus, and gastric fundus. The procedure was completed without complications. Left Ventricle The left ventricle is normal in size. Left ventricular systolic functionis normal. There is severely increased left ventricular wall thickness.Left ventricular segmental wall motion is normal. The left ventriculardiastolic function is consistent with grade II diastolic dysfunction and increasedleft atrial filling pressure. Left ventricular systolic function is normal withan estimated ejection fraction of 55-60% by visual estimate. Right Ventricle The right ventricle is at the upper limits of normal in size. Right ventricular systolic function is normal. Left Atrium The left atrium is normal in size. Right Atrium The right atrium is normal in size. Atrial Septum Intact interatrial septum visualized by 2D and color Doppler andagitated saline imaging. Atrial Appendage The left atrial appendage is normal in shape with normal velocity, andthere is no thrombus. Aortic Valve The aortic valve is trileaflet. There is no aortic valve stenosis. Thereis trace aortic valve regurgitation. Pulmonic Valve The pulmonic valve is not well visualized, but grossly normal. There isno pulmonic valve stenosis. There is no pulmonic regurgitation. Mitral Valve The mitral valve is mildly thickened. There is no mitral valvestenosis. There is moderate to severe mitral valve regurgitation. 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 Tricuspid Valve The tricuspid valve is grossly normal. There is no tricuspid valvestenosis. There is trace tricuspid valve regurgitation. Pericardium/Pleural There is no pericardial effusion. Aorta The aortic root at the sinus of Valsalva is normal in size. Theascending aorta is normal in size. Measurements Left Ventricular Outflow Tract Name Value Normal LVOT 2D LVOT Diameter 2.2 cm LVOT Area 3.8 cm2 LVOT Doppler LVOT Peak Velocity 1.2 m/s LVOT Peak Gradient 4 mmHg LVOT Mean Velocity 62.80 cm/s LVOT Mean Gradient 1 mmHg LVOT VTI 21.7 cm LVOT VTI/AV VTI Ratio 0.9 LVOT Stroke Volume 82 ml Pulmonic Valve Name Value Normal PV Doppler PV Peak Velocity 1.9 m/s PV Peak Gradient 14 mmHg PV Mean Gradient 5 mmHg Mitral Valve Name Value Normal MV Doppler MV Peak Gradient 1 mmHg MV Mean Gradient 1 mmHg MV DI (VTI) 0.76 MV Area (Cont Eq VTI) 5.03 cm2 MV Regurgitation Doppler MR Peak Gradient 81 mmHg MR Vena Contracta 3.0 mm Tricuspid Valve Name Value Normal TV Regurgitation Doppler TR Peak Velocity 2.1 m/s TR Peak Gradient 18 mmHg Aorta Name Value Normal Ascending Aorta Ao Root Diameter (2D) 3.1 cm Ao Annulus Diameter 2.7 cm 2.3-2.9 Sinus of Valsalva Diameter 3.7 cm 2.8-4.0 Ao Sinotub Junction Diameter 3.0 cm 2.6-3.2 Asc Ao Diameter 3.6 cm 2.2-3.8 Aortic Valve Name Value Normal AV Doppler AV Peak Velocity 1.25 m/s AV Peak Gradient 6 mmHg AV Mean Gradient 4 mmHg AV VTI 24 cm AV Area (Cont Eq VTI) 3.44 cm2 >=2.00 AV Area (Cont Eq Valeriano) 3.77 cm2 AV DI (VTI) 0.90 AV DI (Valeriano) 0.99 AV Regurgitation 2D LVOT Area 3.80 cm2 Ventricles Name Value Normal RV Dimensions 2D/MM TAPSE 3.1 cm >=1.7 Report Signatures Finalized by Alexa Page on 03/15/2025 05:38 PM Cornelia Serra MD ECHO CUPID Final Result * TRANSFUSE RED BLOOD CELL LEUKOREDUCED UNIT(S) (03/14/2025 5:37 PM CDT) [facility] B[facility] PROD TRANSFUSION Final Result * TRANSFUSE RED BLOOD CELL LEUKOREDUCED UNIT(S), 1 Units (03/14/2025 5:37 PM CDT) Ofelia [facility] - BLOOD PROD TRANSFUSION Final Result * PREPARE (CROSSMATCH) RBC UNIT(S), 1 Units (03/14/2025 5:21 AM CDT) Unit Description N/A [facility] Blood Bank BLOOD SPECIMEN / Unknown 03/14/2025 5:21 AM CDT 03/14/2025 5:53 AM CDT Rahul Hernandez MD LAB - BLOOD BANK OR DERABLES Final Result [facility] [address] [place] [address], [facility] [phone] * PREPARE (CROSSMATCH) RBC UNIT(S), 1 Units (03/14/2025 5:21 AM CDT) Unit Description N/A [facility] Blood Bank BLOOD SPECIMEN / Unknown 03/14/2025 5:21 AM CDT 03/14/2025 5:53 AM CDT Nayan Hernandez [facility] - BLOOD BANK OR DERABLES Final Result [facility] [address] [place] [address], [facility] [phone] * PREPARE (CROSSMATCH) RBC UNIT(S), 1 Units (03/14/2025 5:21 AM CDT) Unit Description AS1 LR PRBC [facility] Unit ABO O [facility] Unit Rh NEG [facility] Product Number R02 [facility] Unit Donor # [id number] [facility] Unit Status transfused [facility] Product Code [id number] [facility] Blood Type Barcode 8640 [facility] Expiration Date [id number] [facility] BLOOD [facility] LAB Blood Bank BLOOD SPECIMEN / Unknown 03/14/2025 5:21 AM CDT 03/14/2025 5:53 AM CDT Rahul Hernandez MD LAB - BLOOD BANK OR DERABLES Final Result [facility] [address] [place] [address], [facility] [phone] * PREPARE FFP UNIT(S), 4 Units (03/14/2025 5:21 AM CDT) Unit Description Liquid Plasma [facility] Unit ABO A [facility] Unit Rh POS [facility] Product Number [id number] [facility] Unit Donor # [id number] [facility] Unit Status released [facility] BLOO D [facility]ANK LAB Product Code [id number] [facility] Blood Type Barcode 6200 [facility] Expiration Date [id number] [facility] Unit Description Liquid Plasma [facility] Unit ABO A [facility] Unit Rh POS [facility] Product Number [id number] [facility] Unit Donor # [id number] [facility] Unit Status transfused [facility] Product Code [id number] [facility]LO [facility] Blood Type Barcode 6200 [facility] Expiration Date [id number] [facility] BLOOD [facility] LAB Blood Bank BLOOD SPECIMEN / Unknown 03/14/2025 5:21 AM CDT 03/14/2025 5:53 AM CDT Rahul Hernandez MD LAB - BLOOD BANK OR DERABLES Final Result [facility] [address] [place] [address], [facility] [phone] * PREPARE PLATELET PHERESIS UNIT(S), 2 Units (03/14/2025 5:21 AM CDT) Unit Description LR PLT Phere B7 [facility] Unit ABO O [facility] Unit POS [facility] Product Number P27 [facility] Unit Donor # [id number] [facility] Unit Status transfused [facility] Product Code [id number] [facility] Blood Type Barcode 5100 [facility] Expiration Date [id number] [facility] Unit Description LR PLT Phere B7 [facility] Unit ABO O [facility] Unit Rh POS [facility] Product Number P27 [facility] Unit Donor # [id number] [facility] Unit Status released [facility] D [facility] Product Code [id number] [facility]LO [facility] Blood Type Barcode 5100 [facility] Expiration Date [id number] [facility] BLOOD [facility] LAB Blood Bank BLOOD SPECIMEN / Unknown 03/14/2025 5:21 AM CDT 03/14/2025 5:53 AM CDT us Rahul Hernandez MD LAB - BLOOD BANK OR DERABLES Final Result [facility] [address] [place] [address], [facility] [phone] * PREPARE (CROSSMATCH) RBC UNIT(S), 8 Units (03/14/2025 5:21 AM CDT) Unit Description AS1 LR PRBC [facility] Unit ABO O [facility] Unit Rh POS [facility] Product Number R43 [facility] LO[facility] Unit Donor # [id number] [facility] Unit Status released [facility] BL[facility] D [facility] Product Code [id number] [facility] Blood Type Barcode 5100 [facility] Expiration Date [id number] S BLOOD BANK LAB Unit Description AS1 LR PRBC [facility] Unit ABO O [facility] Unit Rh POS [facility] Product Number R44 [facility] LOOD [facility] Unit Donor # [id number] [facility] Unit Status released [facility]OO D [facility] LAB Product Code [id number] [facility] BLO OD [facility] LAB Blood Type Barcode 5100 [facility] Expiration Date [id number] S BLOOD BANK LAB Blood Bank BLOOD SPECIMEN / Unknown 03/14/2025 5:21 AM CDT 03/14/2025 5:53 AM CDT Rahul Hernandez MD LAB - BLOOD BANK OR DERABLES Final Result [facility] [address] [place] [address], [facility] [phone] * PREPARE PLATELET PHERESIS UNIT(S), 2 Units (03/14/2025 5:21 AM CDT) Unit Description N/A [facility] Blood Bank BLOOD SPECIMEN / Unknown 03/14/2025 5:21 AM CDT 03/14/2025 5:53 AM CDT us Ivone Aguilera [facility] LAB - BLOOD BANK ORD ERABLES Final Result [facility] [address] [place] [address], [place] [phone] * PREPARE FFP UNIT(S), 4 Units (03/14/2025 5:21 AM CDT) Unit Description N/A [facility] Blood Bank BLOOD SPECIMEN / Unknown 03/14/2025 5:21 AM CDT 03/14/2025 5:53 AM CDT us Ivone Charlotte Ale [facility] - BLOOD BANK ORD ERABLES Final Result Performing Organization Address City/[facility]/ZIP Co de Phone Number [facility] [address] [place] [address], [place] [phone] * PREPARE (CROSSMATCH) RBC UNIT(S), 6 Units (03/14/2025 5:21 AM CDT) Unit Description AS1 LR PRBC [facility] Unit ABO O [facility] Unit Rh POS [facility] Product Number R02 [facility] Unit Donor # [id number] [facility] Unit Status transfused [facility] Product Code [id number] [facility] Blood Type Barcode 5100 [facility] Expiration Date S BLOOD BANK LAB Unit Description AS1 LR PRBC [facility] Unit ABO O [facility] Unit Rh POS [facility] Product Number R02 [facility] Unit Donor # [id number] [facility] Unit Status released [facility] BLOO D [facility] Product Code [id number] [facility] Blood Type Barcode 5100 [facility] Expiration Date S BLOOD BANK LAB Unit Description AS1 LR PRBC [facility] Unit ABO O [facility] Unit Rh POS [facility] Product Number R02 [facility] Unit Donor # [id number] [facility] Unit Status released [facility] BL[facility] D [facility] Product Code [id number] [facility] Blood Type Barcode 5100 [facility] Expiration Date [id number] [facility] Unit Description AS1 LR PRBC [facility] Unit ABO O [facility] Unit Rh POS [facility] Product Number R02 [facility] Unit Donor # [id number] [facility] Unit Status transfused SL BLO OD BANK LAB Product Code [id number] [facility] Blood Type Barcode 5100 [facility] Expiration Date [id number] [facility] Unit Description AS1 LR PRBC [facility] Unit ABO O [facility] Unit Rh POS [facility] Product Number R02 [facility] Unit Donor # [id number] [facility] Unit Status transfused [facility] BLO OD BANK LAB Product Code [id number] [facility] Blood Type Barcode 5100 [facility] Expiration Date [id number] S BLOOD BANK LAB Unit Description AS1 LR PRBC [facility] Unit ABO O [facility] Unit Rh POS [facility] Product Number R02 [facility] Unit Donor # [id number] [facility] Unit Status transfused SL BLO OD BANK LAB Product Code [id number] [facility] Blood Type Barcode 5100 [facility] Expiration Date [id number] [facility]LOOD [facility] LAB Blood Bank BLOOD SPECIMEN / Unknown 03/14/2025 5:21 AM CDT 03/14/2025 5:53 AM CDT Ivone Aguilera [facility] LAB - BLOOD BANK ORD ERABLES Final Result [facility] [address] [place] [address], [facility] [phone] * PREPARE (CROSSMATCH) RBC UNIT(S), 1 Units (03/14/2025 5:21 AM CDT) Unit Description AS1 LR PRBC [facility] Unit ABO O [facility] Unit Rh POS [facility] Product Number R02 [facility] Unit Donor # [id number] [facility] Unit Status transfused [facility] Product Code [id number] [facility] Blood Type Barcode 5100 [facility] Expiration Date [facility]OD [facility] LAB Blood Bank BLOOD SPECIMEN / Unknown 03/14/2025 5:21 AM CDT 03/14/2025 5:53 AM CDT Ofelia Mckee [facility] LAB - BLOOD BANK ORDE RABALVIN Final Result Performing Organization Address City/[facility]/ZIP Co de Phone Number [facility] [address] [place] [address], [place] [phone] * PHOSPHORUS BLOOD (03/14/2025 5:21 AM CDT) Phosphorus 4.0 2.8 - 5.1 mg/dL 03/14/2025 6:32 AM CDT [facility] Blood BLOOD SPECIMEN / Unknown Lab Venipuncture / Unknown 03/14/2025 5:21 AM CDT 03/14/2025 5:56 AM CDT Adalberto Arroyo MD LAB - CHEMISTRY ORDERABLES F inal Result [facility] [address] [place] [address], [place] [phone] * MAGNESIUM BLOOD (03/14/2025 5:21 AM CDT) Magnesium 1.9 1.6 - 2.6 mg/dL 03/14/2025 6:32 AM CDT [facility] Blood BLOOD SPECIMEN / Unknown Lab Venipuncture / Unknown 03/14/2025 5:21 AM CDT 03/14/2025 5:56 AM CDT us Adalberto Arrooy MD LAB - CHEMISTRY ORDERABLES F inal Result [facility] [address] [place] [address], [facility] [phone] * (ABNORMAL) COMPREHENSIVE METABOLIC PANEL (03/14/2025 5:21 AM CDT) BUN 31(H) 7 - 26 mg/dL 03/14/2025 6:32 AM [facility] Creatinine 2.89(H) 0.71 - 1.16 mg/dL 03/14/2025 6:32 AM [facility] Sodium 137 136 - 145 mmol/L 03/14/2025 6:32 AM [facility] Potassium 4.3 3.5 - 4.5 mmol/L 03/14/2025 6:32 AM [facility] Chloride 108(H) 98 - 107 mmol/L 03/14/2025 6:32 AM [facility] CO2 21(L) 22 - 29 mmol/L 03/14/2025 6:32 AM [facility] Glucose 98 70 - 99 mg/dL 03/14/2025 6:32 AM [facility] Calcium 9.5 8.4 - 10.2 mg/dL 03/14/2025 6:32 AM [facility] Protein Total 7.8 6.0 - 8.3 g/dL 03/14/2025 6:32 AM [facility] Albumin 3.3(L) 3.4 - 5.0 g/dL 03/14/2025 6:32 AM [facility] Bilirubin Total 0.1(L) 0.2 - 1.2 mg/dL 03/14/2025 6:32 AM [facility] Alkaline Phosphatase 121 40 - 150 U/L 03/14/2025 6:32 AM [facility] ALT <5(L) 5 - 55 U/L 03/14/2025 6:32 AM [facility] AST 9 5 - 34 U/L 03/14/2025 6:32 AM [facility] Anion Gap 8 6 - 16 03/14/2025 6:32 AM [facility] BUN/Creatinine Ratio 11 7 - 23 03/14/2025 6:32 AM [facility] Osmolality Calculated 291 275 - 295 mOsm/kg 03/14/2025 6:32 AM [facility] Albumin/Globulin Ratio 0.7(L) 1.1 - 2.3 03/14/2025 6:32 AM [facility] eGFR by CKD-EPI 23(L) >=90 mL/min/1.7 3 m2 03/14/2025 6:32 AM [facility] Comment:Estimated Glomerular Filtration Rate (eGFR) calculated using the CKD-EPI Creatinine Equation (2020), per the [employer] Kid[employer] Foundation and [employer]ph[employer] recommendations. Blood BLOOD SPECIMEN / Unknown Lab Venipuncture / Unknown 03/14/2025 5:21 AM CDT 03/14/2025 5:56 AM T us Adalberto Arroyo MD LAB - CHEMISTRY ORDERABLES F inal Result [facility] [address] [place] [address], [facility] [phone] * (ABNORMAL) CBC W AUTO DIFFERENTIAL (03/14/2025 5:21 AM CDT) WBC 10.9(H) 4.0 - 10.7 x10E9/L 03/14/2025 6:20 AM [facility] RBC Count 3.37(L) 4.30 - 5.80 x10E12/L 03/14/2025 6:20 AM [facility] Hemoglobin 9.3(L) 13.3 - 17.5 g/dL 03/14/2025 6:20 AM [facility] Hematocrit 30.0(L) 38.7 - 51.1 % 03/14/2025 6:20 AM [facility] MCV 89.0 80.0 - 98.0 fL 03/14/2025 6:20 AM [facility] MCH 27.6 26.7 - 33.6 pg 03/14/2025 6:20 AM [facility] MCHC 31.0(L) 31.7 - 36.3 g/dL 03/14/2025 6:20 AM [facility] RDW-CV 15.0(H) 11.3 - 14.8 % 03/14/2025 6:20 AM [facility] Platelet Count 440(H) 150 - 420 x10E9/L 03/14/2025 6:20 AM [facility] MPV 9.7 7.8 - 11.4 fL 03/14/2025 6:20 AM [facility] Neutrophil % 62.0 41.0 - 74.0 % 03/14/2025 6:20 AM [facility] Lymphocyte % 20.9 17.0 - 47.0 % 03/14/2025 6:20 AM [facility] Monocyte % 9.7 3.0 - 11.0 % 03/14/2025 6:20 AM [facility] Eosinophil % 4.4 0.0 - 7.0 % 03/14/2025 6:20 AM [facility] Basophil % 0.8 0.0 - 1.6 % 03/14/2025 6:20 AM [facility] Immature Granulocytes % 2.2(H) 0.0 - 1.0 % 03/14/2025 6:20 AM [facility] Neutrophil Absolute 6.74 1.60 - 7.50 x10E9/L 03/14/2025 6:20 AM [facility] Lymphocyte Absolute 2.27 1.00 - 4.40 x10E9/L 03/14/2025 6:20 AM [facility] Monocyte Absolute 1.06(H) 0.15 - 1.00 x10E9/L 03/14/2025 6:20 AM [facility] Eosinophil Absolute 0.48 0.00 - 0.60 x10E9/L 03/14/2025 6:20 AM [facility] Basophil Absolute 0.09 0.00 - 0.13 x10E9/L 03/14/2025 6:20 AM [facility] Blood BLOOD SPECIMEN / Unknown Lab Venipuncture / Unknown 03/14/2025 5:21 AM CDT 03/14/2025 5:56 AM CDT Adalberto Arroyo MD LAB - HEMATOLOGY ORDERABLES Final Result [facility] [address] [place] [address], [facility] [phone] * TYPE + SCREEN PANEL (03/14/2025 5:21 AM CDT) Antibody Screen NEG 6:56 AM CDT [facility] ABO Rh O POS 03/14/2025 6:56 AM CDT [facility] Blood Bank BLOOD SPECIMEN / Unknown Lab Venipuncture / Unknown 03/14/2025 5:21 AM CDT 03/14/2025 5:53 AM CDT Joey Farrar PA-C LAB - BLOOD BANK ORDERABLES F inal Result Performing Organization Address City/[facility]/ZIP Co de Phone Number [facility] [address] [place] [address], [facility] [phone] * (ABNORMAL) URINALYSIS REFLEX MICROSCOPIC REFLEX CULTURE (03/13/2025 9:10 AM CDT) Color UA Colorless(A) Yellow, Straw 03/13/2025 9:50 AM CDT [facility] Clarity UA Clear Clear 03/13/2025 9:50 AM CDT [facility] Glucose UA 1+(A) Normal 03/13/2025 9:50 AM CDT [facility] Bilirubin UA Negative Negative 03/13/2025 9:50 AM CDT [facility] Ketone UA Negative Negative 03/13/2025 9:50 AM CDT [facility] Specific [place] UA 1.012 1.005 - 1.030 03/13/2025 9:50 AM CDT [facility] Blood UA Negative Negative 03/13/2025 9:50 AM CDT [facility] pH UA 6.5 5.0 - 8.0 03/13/2025 9:50 AM [facility] Protein UA 1+(A) Negative 03/13/2025 9:50 AM [facility] Urobilinogen UA Normal Normal mg/dL 03/13/2025 9:50 AM [facility] Nitrite UA Negative Negative 03/13/2025 9:50 AM [facility] Leukocyte Esterase UA Negative Negative 03/13/2025 9:50 AM [facility] RBC UA 0-2 0 - 5 # /hpf 03/13/2025 9:50 AM [facility] WBC UA 0-5 0 - 5 # /hpf 03/13/2025 9:50 AM [facility] Bacteria UA None Seen None Seen 03/13/2025 9:50 AM [facility] Squamous Epithelial Cells None Seen 0 - 5 /hpf 03/13/2025 9:50 AM [facility] Mucus UA 1+ /LPF 03/13/2025 9:50 AM [facility] Reflex Status Culture not indicated 03/13/2025 9:50 AM [facility] Urine URINE SPECIMEN OBTAINED BY CLEAN CATCH PROCEDURE / Unknown Collection / Unknown 03/13/2025 9:10 AM CDT 03/13/2025 9:19 AM CDT Narrative [facility] - 03/13/2025 9:50 AM CDT us Ofelia Mckee [employer] LAB - URINALYSIS HAYLIE DAVIS Final Result Performing Organization Address City/State/[facility] Co de Phone Number [facility] [address] [place] [phone] [phone] * PHOSPHORUS BLOOD (03/13/2025 6:03 AM CDT) Phosphorus 3.7 2.8 - 5.1 mg/dL 03/13/2025 7:14 AM [facility] Blood BLOOD SPECIMEN / Unknown Lab Venipuncture / Unknown 03/13/2025 6:03 AM CDT 03/13/2025 6:42 AM CDT Adalberto Arroyo MD LAB - CHEMISTRY ORDERABLES F inal Result Performing Organization Address City/[facility]/ZIP Co de Phone Number [address] [address], [place] [phone] * MAGNESIUM BLOOD (03/13/2025 6:03 AM CDT) Magnesium 1.8 1.6 - 2.6 mg/dL 03/13/2025 7:14 AM [facility] Blood BLOOD SPECIMEN / Unknown Lab Venipuncture / Unknown 03/13/2025 6:03 AM CDT 03/13/2025 6:42 AM CDT Adalberto Arroyo MD LAB - CHEMISTRY ORDERABLES F inal Result Performing Organization Address [facility]/ZIP Co de Phone Number [address] [address], [place] [phone] * (ABNORMAL) COMPREHENSIVE METABOLIC PANEL (03/13/2025 6:03 AM CDT) BUN 28(H) 7 - 26 mg/dL 03/13/2025 7:14 AM [facility] Creatinine 2.78(H) 0.71 - 1.16 mg/dL 03/13/2025 7:14 AM [facility] Sodium 138 136 - 145 mmol/L 03/13/2025 7:14 AM [facility] Potassium 3.9 3.5 - 4.5 mmol/L 03/13/2025 7:14 AM [facility] Chloride 106 98 - 107 mmol/L 03/13/2025 7:14 AM [facility] CO2 23 22 - 29 mmol/L 03/13/2025 7:14 AM [facility] Glucose 95 70 - 99 mg/dL 03/13/2025 7:14 AM [facility] Calcium 9.2 8.4 - 10.2 mg/dL 03/13/2025 7:14 AM [facility] Protein Total 7.4 6.0 - 8.3 g/dL 03/13/2025 7:14 AM [facility] Albumin 3.0(L) 3.4 - 5.0 g/dL 03/13/2025 7:14 AM [facility] Bilirubin Total 0.1(L) 0.2 - 1.2 mg/dL 03/13/2025 7:14 AM [facility] Alkaline Phosphatase 120 40 - 150 U/L 03/13/2025 7:14 AM [facility] ALT <5(L) 5 - 55 U/L 03/13/2025 7:14 AM [facility] AST 8 5 - 34 U/L 03/13/2025 7:14 AM [facility] Anion Gap 9 6 - 16 03/13/2025 7:14 AM [facility] BUN/Creatinine Ratio 10 7 - 23 03/13/2025 7:14 AM [facility] Osmolality Calculated 291 275 - 295 mOsm/kg 03/13/2025 7:14 AM [facility] Albumin/Globulin Ratio 0.7(L) 1.1 - 2.3 03/13/2025 7:14 AM [facility] eGFR by CKD-EPI 24(L) >=90 mL/min/1.7 3 m2 03/13/2025 7:14 AM [facility] Comment:Estimated Glomerular Filtration Rate (eGFR) calculated using the CKD-EPI Creatinine Equation (2020), per the National Kidney Foundation and [employer] Society of Nephrology recommendations. Blood BLOOD SPECIMEN / Unknown Lab Venipuncture / Unknown 03/13/2025 6:03 AM CDT 03/13/2025 6:42 AM CDT us Adalberto Arroyo MD LAB - CHEMISTRY ORDERABLES F inal Result [facility] [address] [place] [phone], [facility] [phone] * (ABNORMAL) CBC W AUTO DIFFERENTIAL (03/13/2025 6:03 AM CDT) WBC 9.6 4.0 - 10.7 x10E9/L 03/13/2025 7:10 AM [facility] RBC Count 3.18(L) 4.30 - 5.80 x10E12/L 03/13/2025 7:10 AM [facility] Hemoglobin 8.7(L) 13.3 - 17.5 g/dL 03/13/2025 7:10 AM [facility] Hematocrit 27.7(L) 38.7 - 51.1 % 03/13/2025 7:10 AM [facility] MCV 87.1 80.0 - 98.0 fL 03/13/2025 7:10 AM [facility] MCH 27.4 26.7 - 33.6 pg 03/13/2025 7:10 AM [facility] MCHC 31.4(L) 31.7 - 36.3 g/dL 03/13/2025 7:10 AM [facility] RDW-CV 14.8 11.3 - 14.8 % 03/13/2025 7:10 AM [facility] Platelet Count 423(H) 150 - 420 x10E9/L 03/13/2025 7:10 AM [facility] MPV 9.8 7.8 - 11.4 fL 03/13/2025 7:10 AM [facility] Neutrophil % 59.2 41.0 - 74.0 % 03/13/2025 7:10 AM [facility] Lymphocyte % 22.8 17.0 - 47.0 % 03/13/2025 7:10 AM [facility] Monocyte % 11.0 3.0 - 11.0 % 03/13/2025 7:10 AM [facility] Eosinophil % 3.9 0.0 - 7.0 % 03/13/2025 7:10 AM [facility] Basophil % 0.8 0.0 - 1.6 % 03/13/2025 7:10 AM [facility] Immature Granulocytes % 2.3(H) 0.0 - 1.0 % 03/13/2025 7:10 AM [facility] Neutrophil Absolute 5.69 1.60 - 7.50 x10E9/L 03/13/2025 7:10 AM [facility] Lymphocyte Absolute 2.20 1.00 - 4.40 x10E9/L 03/13/2025 7:10 AM CDT [facility] Monocyte Absolute 1.06(H) 0.15 - 1.00 x10E9/L 03/13/2025 7:10 AM CDT [facility] Eosinophil Absolute 0.38 0.00 - 0.60 x10E9/L 03/13/2025 7:10 AM CDT [facility] Basophil Absolute 0.08 0.00 - 0.13 x10E9/L 03/13/2025 7:10 AM CDT [facility] Blood BLOOD SPECIMEN / Unknown Lab Venipuncture / Unknown 03/13/2025 6:03 AM CDT 03/13/2025 6:42 AM CDT us Adalberto Arroyo MD LAB - HEMATOLOGY ORDERABLES Final Result [address] [address], [facility] [phone] * PHOSPHORUS BLOOD (03/11/2025 6:06 AM CDT) Phosphorus 3.9 2.8 - 5.1 mg/dL 03/11/2025 7:50 AM CDT [facility] Blood BLOOD SPECIMEN / Unknown Lab Venipuncture / Unknown 03/11/2025 6:06 AM CDT 03/11/2025 7:23 AM CDT us Shira Harris MD LAB - CHEMISTRY ORDERABLES Final Result [address] [address], [place] [phone] * MAGNESIUM BLOOD (03/11/2025 6:06 AM CDT) Magnesium 1.9 1.6 - 2.6 mg/dL 03/11/2025 7:50 AM CDT [facility] Blood BLOOD SPECIMEN / Unknown Lab Venipuncture / Unknown 03/11/2025 6:06 AM CDT 03/11/2025 7:23 AM CDT us Shira Harris MD LAB - CHEMISTRY ORDERABLES Final Result [facility] [address] [place] [address], [facility] [phone] * (ABNORMAL) COMPREHENSIVE METABOLIC PANEL (03/11/2025 6:06 AM CDT) BUN 35(H) 7 - 26 mg/dL 03/11/2025 7:50 AM [facility] Creatinine 2.97(H) 0.71 - 1.16 mg/dL 03/11/2025 7:50 AM [facility] Sodium 140 136 - 145 mmol/L 03/11/2025 7:50 AM [facility] Potassium 4.2 3.5 - 4.5 mmol/L 03/11/2025 7:50 AM [facility] Chloride 111(H) 98 - 107 mmol/L 03/11/2025 7:50 AM [facility] CO2 22 22 - 29 mmol/L 03/11/2025 7:50 AM [facility] Glucose 96 70 - 99 mg/dL 03/11/2025 7:50 AM [facility] Calcium 9.1 8.4 - 10.2 mg/dL 03/11/2025 7:50 AM [facility] Protein Total 7.3 6.0 - 8.3 g/dL 03/11/2025 7:50 AM [facility] Albumin 2.9(L) 3.4 - 5.0 g/dL 03/11/2025 7:50 AM [facility] Bilirubin Total 0.2 0.2 - 1.2 mg/dL 03/11/2025 7:50 AM [facility] Alkaline Phosphatase 123 40 - 150 U/L 03/11/2025 7:50 AM [facility] ALT 5 5 - 55 U/L 03/11/2025 7:50 AM [facility] AST 10 5 - 34 U/L 03/11/2025 7:50 AM [facility] Anion Gap 7 6 - 16 03/11/2025 7:50 AM [facility] BUN/Creatinine Ratio 12 7 - 23 03/11/2025 7:50 AM [facility] Osmolality Calculated 298(H) 275 - 295 mOsm/kg 03/11/2025 7:50 AM [facility] Albumin/Globulin Ratio 0.7(L) 1.1 - 2.3 03/11/2025 7:50 AM [facility] eGFR by CKD-EPI 23(L) >=90 mL/min/1.7 3 m2 03/11/2025 7:50 AM [facility] Comment:Estimated Glomerular Filtration Rate (eGFR) calculated using the CKD-EPI Creatinine Equation (2020), per the National Kidney Foundation and [employer] Society of Nephrology recommendations. Blood BLOOD SPECIMEN / Unknown Lab Venipuncture / Unknown 03/11/2025 6:06 AM CDT 03/11/2025 7:23 AM T Shira Harris MD LAB - CHEMISTRY ORDERABLES Final Result [facility] [address] [place] [address], [facility] [phone] * (ABNORMAL) CBC W AUTO DIFFERENTIAL (03/11/2025 6:06 AM T) WBC 9.3 4.0 - 10.7 x10E9/L 03/11/2025 7:41 AM [facility] RBC Count 3.15(L) 4.30 - 5.80 x10E12/L 03/11/2025 7:41 AM [facility] Hemoglobin 8.6(L) 13.3 - 17.5 g/dL 03/11/2025 7:41 AM [facility] Hematocrit 27.5(L) 38.7 - 51.1 % 03/11/2025 7:41 AM [facility] MCV 87.3 80.0 - 98.0 fL 03/11/2025 7:41 AM [facility] MCH 27.3 26.7 - 33.6 pg 03/11/2025 7:41 AM [facility] MCHC 31.3(L) 31.7 - 36.3 g/dL 03/11/2025 7:41 AM [facility] RDW-CV 15.0(H) 11.3 - 14.8 % 03/11/2025 7:41 AM [facility] Platelet Count 486(H) 150 - 420 x10E9/L 03/11/2025 7:41 AM [facility] MPV 9.6 7.8 - 11.4 fL 03/11/2025 7:41 AM [facility] Neutrophil % 65.0 41.0 - 74.0 % 03/11/2025 7:41 AM [facility] Lymphocyte % 21.4 17.0 - 47.0 % 03/11/2025 7:41 AM [facility] Monocyte % 9.4 3.0 - 11.0 % 03/11/2025 7:41 AM [facility] Eosinophil % 2.4 0.0 - 7.0 % 03/11/2025 7:41 AM [facility] Basophil % 0.5 0.0 - 1.6 % 03/11/2025 7:41 AM [facility] Immature Granulocytes % 1.3(H) 0.0 - 1.0 % 03/11/2025 7:41 AM [facility] Neutrophil Absolute 6.06 1.60 - 7.50 x10E9/L 03/11/2025 7:41 AM [facility] Lymphocyte Absolute 1.99 1.00 - 4.40 x10E9/L 03/11/2025 7:41 AM [facility] Monocyte Absolute 0.88 0.15 - 1.00 x10E9/L 03/11/2025 7:41 AM [facility] Eosinophil Absolute 0.22 0.00 - 0.60 x10E9/L 03/11/2025 7:41 AM [facility] Basophil Absolute 0.05 0.00 - 0.13 x10E9/L 03/11/2025 7:41 AM [facility] Blood BLOOD SPECIMEN / Unknown Lab Venipuncture / Unknown 03/11/2025 6:06 AM CDT 03/11/2025 7:23 AM CDT Shira Harris MD LAB - HEMATOLOGY ORDERABLES Janet l Result Performing Organization Address City/[facility]/ZIP Co de Phone Number [facility] [address] [place] [address], [place] [phone] * BLOOD TYPE VERIFICATION (03/10/2025 10:02 PM CDT) ABO Rh O POS 03/10/2025 10:56 PM CDT [facility] Blood Bank BLOOD SPECIMEN / Unknown Lab Venipuncture / Unknown 03/10/2025 10:02 PM CDT 03/10/2025 10:11 PM CDT Yousuf Chaudhari PA-C LAB - BLOOD BANK ORDERABLES Final Result Performing Organization Address [facility]/ZIP Co de Phone Number [facility] [address] [place] [address], [place] [phone] * TYPE + SCREEN PANEL (03/10/2025 8:10 PM CDT) Antibody Screen NEG 10:12 PM CDT [facility] ABO Rh O POS 03/10/2025 10:12 PM CDT [facility] Blood Bank BLOOD SPECIMEN / Unknown Lab Venipuncture / Unknown 03/10/2025 8:10 PM CDT 03/10/2025 9:20 PM CDT Yousuf Chaudhari PA-C LAB - BLOOD BANK ORDERABLES Final Result Performing Organization Address City/[facility]/ZIP Co de Phone Number [facility] [address] [place] [address], [place] [phone] * CT Chest Wo Contrast (03/10/2025 2:43 PM CDT) Anatomical Region Laterality Modality Chest Computed Tomogra phy 03/10/2025 2:48 PM CDT Impressions 03/10/2025 5:00 PM CDT Impression: 1.A few sub-5 mm nodules within bilateral upper lobes. No evidence of septic emboli. 2.Partially visualized 8.3 cm hypoattenuating area in the spleen, cannot be characterized on this noncontrast examination. Further evaluation with CT or MRI imaging recommended if clinically indicated. > Dictated by Nick Jay MD, (associate professor of radiology). > Dictated by Lighting Equipment Operator IJen MD have personally reviewed and interpreted this examination/study. > Interpreting Provider: Jen Thomson MD on 03/10/2025 5:00 PM Narrative 03/10/2025 5:00 PM CDT PROCEDURE: CT CHEST WO CONTRAST, DATE/TIME OF EXAM: 03/10/2025 2:44 PM, LOCATION [facility] INDICATION: I33.0: Mitral valve vegetation (HCC) ADDITIONAL CLINICAL INFORMATION: Ordering Provider Reason For Exam: Preop MV surgery COMPARISON: None. TECHNIQUE: CT of the chest was performed without contrast according to standard protocol. Findings: Evaluation of visceral and vascular structures is degraded due to lack of intravenous contrast administration. Lower Neck and Axillae: A few subcentimeter short axis supraclavicular lymph nodes, the largest one measuring 7 mm in the right. Lungs: Mild bilateral dependent atelectasis is present. 4 mm subpleural nodules within the right upper lung (series 4, image 30 and image 58). A 5 mm subpleural nodule is noted in the left lung apex (image 20, series 4) A few subcentimeter nodules along to bilateral major fissures, largest one measuring 6 mm in the right, likely represent perifissural lymph nodes. A calcified granuloma in the right upper lung. No pleural fluid or pneumothorax is present. Heart and Pericardium: The cardiac chambers are normal in size. No pericardial fluid or thickening is present. The coronary arteries are atherosclerotic. Mediastinum and Demetra: No mediastinal mass is present. Mildly prominent subcentimeter mediastinal lymph nodes are seen; however, there are no enlarged lymph nodes are present. Thoracic Vasculature: No vascular abnormality is present. Bones and Chest Wall: Bone windows demonstrate no suspicious lytic or blastic lesions. The visible osseous structures are intact. Degenerative changes are seen in the spine. Upper Abdomen: Partially visualized 8.3 cm hypoattenuating area in the spleen, difficult to characterize on this noncontrast examination. Procedure Note Sheyla Thomson MD - 03/10/2025 PROCEDURE: CT CHEST WO CONTRAST, DATE/TIME OF EXAM: 03/10/2025 2:44 PM, LOCATION [facility] INDICATION: I33.0: Mitral valve vegetation (HCC) ADDITIONAL CLINICAL INFORMATION: Ordering Provider Reason For Exam: Preop MV surgery COMPARISON: None. TECHNIQUE: CT of the chest was performed without contrast according to standard protocol. Findings: Evaluation of visceral and vascular structures is degraded due to lackof intravenous contrast administration. Lower Neck and Axillae: A few subcentimeter short axis supraclavicular lymph nodes, the largestone measuring 7 mm in the right. Lungs: Mild bilateral dependent atelectasis is present. 4 mm subpleural nodules within the right upper lung (series 4, image 30 and image 58). A 5 mm subpleural nodule is noted in the left lung apex (image 20, series 4) Afew subcentimeter nodules along to bilateral major fissures, largest one measuring 6 mm in the right, likely represent perifissural lymph nodes.A calcified granuloma in the right upper lung. No pleural fluid or pneumothorax is present. Heart and Pericardium: The cardiac chambers are normal in size. No pericardial fluid orthickening is present. The coronary arteries are atherosclerotic. Mediastinum and Demetra: No mediastinal mass is present. Mildly prominent subcentimetermediastinal lymph nodes are seen; however, there are no enlarged lymph nodes are present. Thoracic Vasculature: No vascular abnormality is present. Bones and Chest Wall: Bone windows demonstrate no suspicious lytic or blastic lesions. The visible osseous structures are intact. Degenerative changes are seen inthe spine. Upper Abdomen: Partially visualized 8.3 cm hypoattenuating area in the spleen,difficult to characterize on this noncontrast examination. Impression: 1.A few sub-5 mm nodules within bilateral upper lobes. No evidence of septic emboli. 2.Partially visualized 8.3 cm hypoattenuating area in the spleen, cannotbe characterized on this noncontrast examination. Further evaluation withCT or MRI imaging recommended if clinically indicated. > Dictated by Nick Jay MD, (associate professor of radiology). > Dictated by Lighting Equipment Operator I, Ad. Stephany Thomson MD have personally reviewed and interpreted this examination/study. > Interpreting Provider: Jen Thomson MD on 03/10/2025 5:00 PM Yousuf Chaudhari PA-C CT ORDERABLES Final Resul t * CCL LEFT HEART CATH (03/10/2025 12:49 PM CDT) Anatomical Region Laterality Modality X-Ray Angiograph y Narrative 03/10/2025 5:01 PM CDT 40% narrowing in mid LAD. Overall, nonobstructive CAD. Left dominant circulation. Right radial artery access, hemostasis by TR band. 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 Determined to have E Faecalis bacteremia with 1x1.2cm MV vegetation with possible splenic infarct from septic emboli. SINTIA showing severe eccentric MR and still mobile vegetation on anterior leaflet, CTS recommending MVR next week and LHC requested as part of ischemic eval prior to surgery. Procedure Details Estimated Blood Loss: 10 mL Coronary Findings Diagnostic Dominance: Left Left Main: The vessel was visualized by selective angiography, is moderate in size and is angiographically normal. Left Anterior Descending: The vessel was visualized by selective angiography and is moderate in size. The vessel exhibits minimal luminal irregularities. Mid LAD lesion is 40% stenosed. Not the culprit lesion. BRO flow is 3. Ramus Intermedius: The vessel was visualized by selective angiography and is moderate in size. The vessel exhibits minimal luminal irregularities. Left Circumflex: The vessel was visualized by selective angiography and is moderate to large in size. There is mild diffuse disease throughout the vessel. Right Coronary Artery: The vessel was visualized by selective angiography and is small to moderate in size. The vessel exhibits minimal luminal irregularities. Intervention No interventions have been documented. Recommendations - Resume previous medications. - Endocarditis plan per primary team. Adalberto Arroyo MD CV CARDIAC CATH CUPID PROCS Final Result * PHOSPHORUS BLOOD (03/10/2025 6:05 AM CDT) Phosphorus 4.4 2.8 - 5.1 mg/dL 03/10/2025 7:30 AM [facility] Blood BLOOD SPECIMEN / Unknown Lab Venipuncture / Unknown 03/10/2025 6:05 AM CDT 03/10/2025 7:05 AM CDT us Shira Harris MD LAB - CHEMISTRY ORDERABLES Final Result [address] [address], [facility] [phone] * MAGNESIUM BLOOD (03/10/2025 6:05 AM CDT) [facility] Magnesium 1.9 1.6 - 2.6 mg/dL 03/10/2025 7:30 AM [facility] Blood BLOOD SPECIMEN / Unknown Lab Venipuncture / Unknown 03/10/2025 6:05 AM CDT 03/10/2025 7:05 AM CDT us Shira Harris MD LAB - CHEMISTRY ORDERABLES Final Result Performing Organization Address City/[facility]/ZIP Co de Phone Number [address] [address], [place] [phone] * (ABNORMAL) COMPREHENSIVE METABOLIC PANEL (03/10/2025 6:05 AM CDT) [facility] BUN 32(H) 7 - 26 mg/dL 03/10/2025 7:30 AM [facility] Creatinine 3.09(H) 0.71 - 1.16 mg/dL 03/10/2025 7:30 AM [facility] Sodium 137 136 - 145 mmol/L 03/10/2025 7:30 AM [facility] Potassium 4.4 3.5 - 4.5 mmol/L 03/10/2025 7:30 AM [facility] Chloride 109(H) 98 - 107 mmol/L 03/10/2025 7:30 AM [facility] CO2 19(L) 22 - 29 mmol/L 03/10/2025 7:30 AM [facility] Glucose 125(H) 70 - 99 mg/dL 03/10/2025 7:30 AM [facility] Calcium 9.2 8.4 - 10.2 mg/dL 03/10/2025 7:30 AM [facility] Protein Total 7.7 6.0 - 8.3 g/dL 03/10/2025 7:30 AM [facility] Albumin 3.0(L) 3.4 - 5.0 g/dL 03/10/2025 7:30 AM [facility] Bilirubin Total 0.2 0.2 - 1.2 mg/dL 03/10/2025 7:30 AM [facility] Alkaline Phosphatase 127 40 - 150 U/L 03/10/2025 7:30 AM [facility] ALT 7 5 - 55 U/L 03/10/2025 7:30 AM [facility] AST 10 5 - 34 U/L 03/10/2025 7:30 AM [facility] Anion Gap 9 6 - 16 03/10/2025 7:30 AM [facility] BUN/Creatinine Ratio 10 7 - 23 03/10/2025 7:30 AM [facility] Osmolality Calculated 292 275 - 295 mOsm/kg 03/10/2025 7:30 AM [facility] Albumin/Globulin Ratio 0.6(L) 1.1 - 2.3 03/10/2025 7:30 AM [facility] eGFR by CKD-EPI 22(L) >=90 mL/min/1.7 3 m2 03/10/2025 7:30 AM [facility] Comment:Estimated Glomerular Filtration Rate (eGFR) calculated using the CKD-EPI Creatinine Equation (2020), per the [employer] and [employer] recommendations. Blood BLOOD SPECIMEN / Unknown Lab Venipuncture / Unknown 03/10/2025 6:05 AM CDT 03/10/2025 7:05 AM [facility] us Shira Harris MD LAB - CHEMISTRY ORDERABLES Final Result [facility] [address] [place] [address], [facility] [phone] * (ABNORMAL) CBC W AUTO DIFFERENTIAL (03/10/2025 6:05 AM CDT) WBC 10.9(H) 4.0 - 10.7 x10E9/L 03/10/2025 7:32 AM [facility] RBC Count 3.07(L) 4.30 - 5.80 x10E12/L 03/10/2025 7:32 AM [facility] Hemoglobin 8.7(L) 13.3 - 17.5 g/dL 03/10/2025 7:32 AM [facility] Hematocrit 26.8(L) 38.7 - 51.1 % 03/10/2025 7:32 AM [facility] MCV 87.3 80.0 - 98.0 fL 03/10/2025 7:32 AM [facility] MCH 28.3 26.7 - 33.6 pg 03/10/2025 7:32 AM [facility] MCHC 32.5 31.7 - 36.3 g/dL 03/10/2025 7:32 AM [facility] RDW-CV 14.9(H) 11.3 - 14.8 % 03/10/2025 7:32 AM [facility] Platelet Count 502(H) 150 - 420 x10E9/L 03/10/2025 7:32 AM [facility] MPV 9.5 7.8 - 11.4 fL 03/10/2025 7:32 AM [facility] Neutrophil % 79.1(H) 41.0 - 74.0 % 03/10/2025 7:32 AM [facility] Lymphocyte % 13.5(L) 17.0 - 47.0 % 03/10/2025 7:32 AM [facility] Monocyte % 5.4 3.0 - 11.0 % 03/10/2025 7:32 AM [facility] Eosinophil % 0.1 0.0 - 7.0 % 03/10/2025 7:32 AM CDT [facility] Basophil % 0.4 0.0 - 1.6 % 03/10/2025 7:32 AM CDT [facility] Immature Granulocytes % 1.5(H) 0.0 - 1.0 % 03/10/2025 7:32 AM T [facility] Neutrophil Absolute 8.58(H) 1.60 - 7.50 x10E9/L 03/10/2025 7:32 AM CDT [facility] Lymphocyte Absolute 1.47 1.00 - 4.40 x10E9/L 03/10/2025 7:32 AM T [facility] Monocyte Absolute 0.59 0.15 - 1.00 x10E9/L 03/10/2025 7:32 AM T [facility] Eosinophil Absolute 0.01 0.00 - 0.60 x10E9/L 03/10/2025 7:32 AM [facility] Basophil Absolute 0.04 0.00 - 0.13 x10E9/L 03/10/2025 7:32 AM [facility] Blood BLOOD SPECIMEN / Unknown Lab Venipuncture / Unknown 03/10/2025 6:05 AM CDT 03/10/2025 7:05 AM CDT us Shira Harris MD LAB - HEMATOLOGY ORDERABLES Janet l Result Performing Organization Address [facility]/State/ZIP Co de Phone Number [facility] [address] [place] [address], [facility] [phone] * US Retroperitoneal Complete (03/09/2025 10:35 AM CDT) Anatomical Region Laterality Modality Abdomen Ultrasound 03/09/2025 11:0 7 AM CDT Impressions 03/09/2025 1:40 PM CDT IMPRESSION: 1.Hypoechoic structure within the right kidney measuring up to 1.1 cm without definite posterior enhancement. This may represent a complex cyst however a neoplastic process cannot be ruled out. Recommend cross-sectional imaging with the renal protocol for further evaluation. 2.There are 2 nonobstructive renal calculi within the right kidney. There is a complex cyst within the right kidney. 3.No hydronephrosis bilaterally. 4.Complex anechoic structure within the spleen, may represent a hematoma however cannot exclude other etiologies. Multiphase CT or MR imaging may be obtained for further evaluation if clinically indicated. > Dictated by Eunice Ramirez (associate professor of radiology). > Dictated by Eunice Ramirez 03/09/2025 11:07 AM > Dictated by Lighting Equipment Operator Jen Cason MD have personally reviewed and interpreted this examination/study. > Interpreting Provider: Jen Thomson MD on 03/09/2025 1:40 PM Narrative 03/09/2025 1:40 PM CDT PROCEDURE: US RETROPERITONEAL COMPLETE DATE/TIME OF EXAM: 03/09/2025 10:36 AM CLINICAL INFORMATION: None relevant/not provided if blank. Indication: N18.5: CKD (chronic kidney disease) stage 5, GFR less than 15 ml/min (HCC) Additional History: COMPARISON: None. TECHNIQUE: Real-time ultrasound of the kidneys and bladder with DICOM image capture performed by medical technologist chief. FINDINGS: Right kidney: 10.9 x 5.6 x 6.3 cm Left kidney: 7.3 x 8.1 x 5.6 cm The renal parenchymal echogenicity is normal. There is right-sided caliectasis. Within the inferior pole of the right kidney there appears to be a complex cyst with septation that measures 3.6 x 2.4 x 3.2 cm. There is a hypoechoic structure within the interpolar region of the right kidney that measures 1.1 x 0.9 x 0.9 cm. This structure doesn't definitely demonstrate posterior acoustic enhancement. There are 2 hyperechoic structures in the right kidney measuring up to 4 mm that likely represent nonobstructive renal calculi. Within the left kidney there is a cyst that measures 0.8 x 0.5 x 0.6 cm. There is no hydronephrosis bilaterally. Blood flow is seen within the renal arteries and veins. The bladder is distended and appears normal. Incidentally, an anechoic structure measuring 8.1 x 4.5 x 7.3 cm is seen within the spleen with internal echoes. The structure does not demonstrate rim hyperemia to suggest an splenic abscess. Procedure Note Sheyla Thomson MD - 03/09/2025 PROCEDURE: US RETROPERITONEAL COMPLETE DATE/TIME OF EXAM: 03/09/2025 10:36 AM CLINICAL INFORMATION: None relevant/not provided if blank. Indication: N18.5: CKD (chronic kidney disease) stage 5, GFR less than15 ml/min (HCC) Additional History: COMPARISON: None. TECHNIQUE: Real-time ultrasound of the kidneys and bladder with DICOMimage capture performed by medical technologist chief. FINDINGS: Right kidney: 10.9 x 5.6 x 6.3 cm Left kidney: 7.3 x 8.1 x 5.6 cm The renal parenchymal echogenicity is normal. There is right-sided caliectasis. Within the inferior pole of the right kidney there appearsto be a complex cyst with septation that measures 3.6 x 2.4 x 3.2 cm. Thereis a hypoechoic structure within the interpolar region of the right kidney that measures 1.1 x 0.9 x 0.9 cm. This structure doesn't definitely demonstrate posterior acoustic enhancement. There are 2 hyperechoic structures in the right kidney measuring up to 4 mm that likelyrepresent nonobstructive renal calculi. Within the left kidney there is a cystthat measures 0.8 x 0.5 x 0.6 cm. There is no hydronephrosis bilaterally.Blood flow is seen within the renal arteries and veins. The bladder isdistended and appears normal. Incidentally, an anechoic structure measuring 8.1 x 4.5 x 7.3 cm is seen within the spleen with internal echoes. The structure does notdemonstrate rim hyperemia to suggest an splenic abscess. IMPRESSION: 1.Hypoechoic structure within the right kidney measuring up to 1.1 cm without definite posterior enhancement. This may represent a complexcyst however a neoplastic process cannot be ruled out. Recommendcross-sectional imaging with the renal protocol for further evaluation. 2.There are 2 nonobstructive renal calculi within the right kidney.There is a complex cyst within the right kidney. 3.No hydronephrosis bilaterally. 4.Complex anechoic structure within the spleen, may represent a hematoma however cannot exclude other etiologies. Multiphase CT or MR imaging maybe obtained for further evaluation if clinically indicated. > Dictated by Eunice Ramirez (associate professor of radiology). > Dictated by Eunice Ramirez 03/09/2025 11:07 AM > Dictated by Lighting Equipment Operator IJenman, MD have personally reviewed and interpreted this examination/study. > Interpreting Provider: Jen Thomson MD on 03/09/2025 1:40 PM us Adalberto Arroyo MD US ORDERABLES Final Result * (ABNORMAL) CBC W AUTO DIFFERENTIAL (03/09/2025 4:46 AM CDT) WBC 11.0(H) 4.0 - 10.7 x10E9/L 03/09/2025 5:41 AM [facility] RBC Count 3.25(L) 4.30 - 5.80 x10E12/L 03/09/2025 5:41 AM [facility] Hemoglobin 8.9(L) 13.3 - 17.5 g/dL 03/09/2025 5:41 AM [facility] Hematocrit 29.0(L) 38.7 - 51.1 % 03/09/2025 5:41 AM [facility] MCV 89.2 80.0 - 98.0 fL 03/09/2025 5:41 AM [facility] MCH 27.4 26.7 - 33.6 pg 03/09/2025 5:41 AM [facility] MCHC 30.7(L) 31.7 - 36.3 g/dL 03/09/2025 5:41 AM [facility] RDW-CV 14.9(H) 11.3 - 14.8 % 03/09/2025 5:41 AM [facility] Platelet Count 548(H) 150 - 420 x10E9/L 03/09/2025 5:41 AM [facility] MPV 9.4 7.8 - 11.4 fL 03/09/2025 5:41 AM [facility] Neutrophil % 65.3 41.0 - 74.0 % 03/09/2025 5:41 AM [facility] Lymphocyte % 18.8 17.0 - 47.0 % 03/09/2025 5:41 AM [facility] Monocyte % 9.1 3.0 - 11.0 % 03/09/2025 5:41 AM [facility] Eosinophil % 3.9 0.0 - 7.0 % 03/09/2025 5:41 AM [facility] Basophil % 0.6 0.0 - 1.6 % 03/09/2025 5:41 AM [facility] Immature Granulocytes % 2.3(H) 0.0 - 1.0 % 03/09/2025 5:41 AM [facility] Neutrophil Absolute 7.19 1.60 - 7.50 x10E9/L 03/09/2025 5:41 AM [facility] Lymphocyte Absolute 2.07 1.00 - 4.40 x10E9/L 03/09/2025 5:41 AM [facility] Monocyte Absolute 1.00 0.15 - 1.00 x10E9/L 03/09/2025 5:41 AM [facility] Eosinophil Absolute 0.43 0.00 - 0.60 x10E9/L 03/09/2025 5:41 AM [facility] Basophil Absolute 0.07 0.00 - 0.13 x10E9/L 03/09/2025 5:41 AM [facility] Blood BLOOD SPECIMEN / Unknown Lab Venipuncture / Unknown 03/09/2025 4:46 AM CDT 03/09/2025 5:35 AM CDT us Shira Harris MD LAB - HEMATOLOGY ORDERABLES Janet l Result Performing Organization Address City/State/[facility] Co de Phone Number [facility] [address] [place] [id number] [phone] * PHOSPHORUS BLOOD (03/09/2025 4:45 AM CDT) [facility] Phosphorus 4.3 2.8 - 5.1 mg/dL 03/09/2025 6:29 AM [facility] Blood BLOOD SPECIMEN / Unknown Lab Venipuncture / Unknown 03/09/2025 4:45 AM CDT 03/09/2025 5:50 AM CDT us Shira Harris MD LAB - CHEMISTRY ORDERABLES Final Result [address] [address], [facility] [phone] * MAGNESIUM BLOOD (03/09/2025 4:45 AM CDT) Magnesium 1.7 1.6 - 2.6 mg/dL 03/09/2025 6:29 AM [facility] Blood BLOOD SPECIMEN / Unknown Lab Venipuncture / Unknown 03/09/2025 4:45 AM CDT 03/09/2025 5:50 AM CDT Shira Harris MD LAB - CHEMISTRY ORDERABLES Final Result Performing Organization Address [facility]/ZIP Co de Phone Number [address] [address], [facility] [phone] * (ABNORMAL) COMPREHENSIVE METABOLIC PANEL (03/09/2025 4:45 AM CDT) BUN 35(H) 7 - 26 mg/dL 03/09/2025 6:29 AM [facility] Creatinine 3.18(H) 0.71 - 1.16 mg/dL 03/09/2025 6:29 AM [facility] Sodium 137 136 - 145 mmol/L 03/09/2025 6:29 AM [facility] Potassium 4.1 3.5 - 4.5 mmol/L 03/09/2025 6:29 AM [facility] Chloride 109(H) 98 - 107 mmol/L 03/09/2025 6:29 AM [facility] CO2 20(L) 22 - 29 mmol/L 03/09/2025 6:29 AM [facility] Glucose 96 70 - 99 mg/dL 03/09/2025 6:29 AM [facility] Calcium 9.1 8.4 - 10.2 mg/dL 03/09/2025 6:29 AM [facility] Protein Total 7.8 6.0 - 8.3 g/dL 03/09/2025 6:29 AM [facility] Albumin 3.0(L) 3.4 - 5.0 g/dL 03/09/2025 6:29 AM [facility] Bilirubin Total 0.1(L) 0.2 - 1.2 mg/dL 03/09/2025 6:29 AM [facility] Alkaline Phosphatase 141 40 - 150 U/L 03/09/2025 6:29 AM [facility] ALT 8 5 - 55 U/L 03/09/2025 6:29 AM [facility] AST 13 5 - 34 U/L 03/09/2025 6:29 AM [facility] Anion Gap 8 6 - 16 03/09/2025 6:29 AM [facility] BUN/Creatinine Ratio 11 7 - 23 03/09/2025 6:29 AM [facility] Osmolality Calculated 292 275 - 295 mOsm/kg 03/09/2025 6:29 AM [facility] Albumin/Globulin Ratio 0.6(L) 1.1 - 2.3 03/09/2025 6:29 AM [facility] eGFR by CKD-EPI 21(L) >=90 mL/min/1.7 3 m2 03/09/2025 6:29 AM [facility] Comment:Estimated Glomerular Filtration Rate (eGFR) calculated using the CKD-EPI Creatinine Equation (2020), per the National Kidney Foundation and [employer] Society of Nephrology recommendations. Blood BLOOD SPECIMEN / Unknown Lab Venipuncture / Unknown 03/09/2025 4:45 AM CDT 03/09/2025 5:50 AM T Shira Harris MD LAB - CHEMISTRY ORDERABLES Final Result [facility] [address] [place] [address], [facility] [phone] * PHOSPHORUS BLOOD (03/08/2025 5:06 AM CDT) Phosphorus 4.2 2.8 - 5.1 mg/dL 03/08/2025 6:08 AM [facility] Blood BLOOD SPECIMEN / Unknown Lab Venipuncture / Unknown 03/08/2025 5:06 AM CDT 03/08/2025 5:34 AM CDT us Shira Harris MD LAB - CHEMISTRY ORDERABLES Final Result Performing Organization Address City/[facility]/ZIP Co de Phone Number [address] [address], [facility] [phone] * MAGNESIUM BLOOD (03/08/2025 5:06 AM CDT) Magnesium 1.8 1.6 - 2.6 mg/dL 03/08/2025 6:20 AM [facility] Blood BLOOD SPECIMEN / Unknown Lab Venipuncture / Unknown 03/08/2025 5:06 AM CDT 03/08/2025 5:34 AM CDT us Shira Harris MD LAB - CHEMISTRY ORDERABLES Final Result Performing Organization Address [facility] Co de Phone Number [address] [address], [facility] [phone] * (ABNORMAL) COMPREHENSIVE METABOLIC PANEL (03/08/2025 5:06 AM CDT) BUN 32(H) 7 - 26 mg/dL 03/08/2025 6:08 AM [facility] Creatinine 3.25(H) 0.71 - 1.16 mg/dL 03/08/2025 6:08 AM [facility] Sodium 136 136 - 145 mmol/L 03/08/2025 6:08 AM [facility] Potassium 4.1 3.5 - 4.5 mmol/L 03/08/2025 6:08 AM [facility] Chloride 107 98 - 107 mmol/L 03/08/2025 6:08 AM [facility] CO2 20(L) 22 - 29 mmol/L 03/08/2025 6:08 AM [facility] Glucose 101(H) 70 - 99 mg/dL 03/08/2025 6:08 AM [facility] Calcium 9.6 8.4 - 10.2 mg/dL 03/08/2025 6:08 AM [facility] Protein Total 8.3 6.0 - 8.3 g/dL 03/08/2025 6:08 AM [facility] Albumin 3.2(L) 3.4 - 5.0 g/dL 03/08/2025 6:08 AM [facility] Bilirubin Total 0.1(L) 0.2 - 1.2 mg/dL 03/08/2025 6:08 AM [facility] Alkaline Phosphatase 152(H) 40 - 150 U/L 03/08/2025 6:08 AM [facility] ALT 11 5 - 55 U/L 03/08/2025 6:08 AM [facility] AST 11 5 - 34 U/L 03/08/2025 6:08 AM [facility] Anion Gap 9 6 - 16 03/08/2025 6:08 AM [facility] BUN/Creatinine Ratio 10 7 - 23 03/08/2025 6:08 AM [facility] Osmolality Calculated 289 275 - 295 mOsm/kg 03/08/2025 6:08 AM [facility] Albumin/Globulin Ratio 0.6(L) 1.1 - 2.3 03/08/2025 6:08 AM [facility] eGFR by CKD-EPI 20(L) >=90 mL/min/1.7 3 m2 03/08/2025 6:08 AM [facility] Comment:Estimated Glomerular Filtration Rate (eGFR) calculated using the CKD-EPI Creatinine Equation (2020), per the National Kidney Foundation and [employer] Society of Nephrology recommendations. Blood BLOOD SPECIMEN / Unknown Lab Venipuncture / Unknown 03/08/2025 5:06 AM CDT 03/08/2025 5:34 AM CDT us Shira Harris MD LAB - CHEMISTRY ORDERABLES Final Result [facility] [address] [place] [address], [facility] [phone] * VITAMIN D 25-HYDROXY (03/08/2025 5:06 AM CDT) Pathologist [facility] Vitamin D, 25 Hydroxy 39.0 30.0 - 80.0 ng/mL 03/08/2025 6:22 AM [facility] Comment: The recommendations for 25-Hydroxy Vitamin D clinical decision points are as follows: Deficient: <20.0 ng/mL Insufficient: 20.0 - 29.9 ng/mL Sufficient: 30.0 - 100.0 ng/mL Potential Toxicity: >100 ng/mL Reference: The Endocrine Society Clinical Practice Guidelines. 2011 If the 25-Hydroxy Vitamin D results are inconsitent with clinical evidence, it is recommended that follow-up testing using a method such as LC/MS/MS be performed to confirm the result. Blood BLOOD SPECIMEN / Unknown Lab Venipuncture / Unknown 03/08/2025 5:06 AM CDT 03/08/2025 5:34 AM CDT us Adalberto Arroyo MD LAB - CHEMISTRY ORDERABLES F inal Result Performing Organization Address [facility]/State/[facility] Co de Phone Number [address] [address], [facility] [phone] * (ABNORMAL) CBC W AUTO DIFFERENTIAL (03/08/2025 5:05 AM CDT) [facility] WBC 12.1(H) 4.0 - 10.7 x10E9/L 03/08/2025 5:56 AM [facility] RBC Count 3.44(L) 4.30 - 5.80 x10E12/L 03/08/2025 5:56 AM [facility] Hemoglobin 9.3(L) 13.3 - 17.5 g/dL 03/08/2025 5:56 AM [facility] Hematocrit 29.4(L) 38.7 - 51.1 % 03/08/2025 5:56 AM [facility] MCV 85.5 80.0 - 98.0 fL 03/08/2025 5:56 AM [facility] MCH 27.0 26.7 - 33.6 pg 03/08/2025 5:56 AM [facility] MCHC 31.6(L) 31.7 - 36.3 g/dL 03/08/2025 5:56 AM [facility] RDW-CV 14.8 11.3 - 14.8 % 03/08/2025 5:56 AM [facility] Platelet Count 557(H) 150 - 420 x10E9/L 03/08/2025 5:56 AM [facility] MPV 9.3 7.8 - 11.4 fL 03/08/2025 5:56 AM [facility] Neutrophil % 65.6 41.0 - 74.0 % 03/08/2025 5:56 AM [facility] Lymphocyte % 19.3 17.0 - 47.0 % 03/08/2025 5:56 AM [facility] Monocyte % 8.2 3.0 - 11.0 % 03/08/2025 5:56 AM [facility] Eosinophil % 4.0 0.0 - 7.0 % 03/08/2025 5:56 AM [facility] Basophil % 0.7 0.0 - 1.6 % 03/08/2025 5:56 AM [facility] Immature Granulocytes % 2.2(H) 0.0 - 1.0 % 03/08/2025 5:56 AM [facility] Neutrophil Absolute 7.93(H) 1.60 - 7.50 x10E9/L 03/08/2025 5:56 AM [facility] Lymphocyte Absolute 2.34 1.00 - 4.40 x10E9/L 03/08/2025 5:56 AM [facility] Monocyte Absolute 0.99 0.15 - 1.00 x10E9/L 03/08/2025 5:56 AM [facility] Eosinophil Absolute 0.48 0.00 - 0.60 x10E9/L 03/08/2025 5:56 AM [facility] Basophil Absolute 0.09 0.00 - 0.13 x10E9/L 03/08/2025 5:56 AM [facility] Blood BLOOD SPECIMEN / Unknown Lab Venipuncture / Unknown 03/08/2025 5:05 AM CDT 03/08/2025 5:33 AM CDT Shira Harris MD LAB - HEMATOLOGY ORDERABLES Janet l Result Performing Organization Address City/[facility]/ZIP Co de Phone Number [address] [address], [facility] [phone] * PT-INR (03/08/2025 5:05 AM CDT) PT 14.0 12.1 - 14.8 Seconds 03/08/2025 6:04 AM CDT [facility] INR 1.1 See Comment 03/08/2025 6:04 AM CDT [facility] Comment:The suggested therap eutic range for standard coumadin (warfarin) therapy is an INR of 2.0-3.0. For high-risk patients (Mechanical Mitral Valve Prosthesis, etc.), the suggested prophylactic therapeutic range is an INR of 2.5-3.5. Blood BLOOD SPECIMEN / Unknown Lab Venipuncture / Unknown 03/08/2025 5:05 AM CDT 03/08/2025 5:33 AM CDT Adalberto Arroyo MD LAB - COAGULATION ORDERABLES Final Result Performing Organization Address [facility]/ZIP Co de Phone Number [address] [address], [facility] [phone] * (ABNORMAL) FERRITIN (03/08/2025 5:05 AM CDT) Ferritin 447(H) 22 - 275 ng/mL 03/08/2025 6:13 AM CDT [facility] Blood BLOOD SPECIMEN / Unknown Lab Venipuncture / Unknown 03/08/2025 5:05 AM CDT 03/08/2025 5:24 AM CDT Adalberto Arroyo MD LAB - CHEMISTRY ORDERABLES F inal Result Performing Organization Address City/[facility]/ZIP Co de Phone Number [address] [address], [facility] [phone] * (ABNORMAL) IRON + TRANSFERRIN PANEL (03/08/2025 5:05 AM CDT) Iron 38(L) 50 - 175 ug/dL 03/08/2025 6:09 AM CDT [facility] Transferrin 201 174 - 382 mg/dL 03/08/2025 6:09 AM CDT [facility] Transferrin Saturation % 15(L) 16 - 50 % 03/08/2025 6:09 AM CDT [facility] TIBC Calculated 251 240 - 450 ug/dL 03/08/2025 6:09 AM CDT [facility] Blood BLOOD SPECIMEN / Unknown Lab Venipuncture / Unknown 03/08/2025 5:05 AM CDT 03/08/2025 5:24 AM CDT Adalberto Arroyo MD LAB - CHEMISTRY ORDERABLES F inal Result Performing Organization Address City/[facility]/ZIP Co de Phone Number [address] [address], [place] [phone] * (ABNORMAL) PTH INTACT W/O CALCIUM (03/08/2025 5:05 AM CDT) PTH Intact 80.3(H) 8.0 - 77.0 pg/mL 03/08/2025 6:10 AM CDT [facility] Blood BLOOD SPECIMEN / Unknown Lab Venipuncture / Unknown 03/08/2025 5:05 AM CDT 03/08/2025 5:34 AM CDT Adalberto Arroyo MD LAB - CHEMISTRY ORDERABLES F inal Result Performing Organization Address City/[facility]/ZIP Co de Phone Number [address] [address], [place] [phone] * VAS Carotid Duplex Bilateral (03/07/2025 4:07 PM CDT) Anatomical Region Laterality Modality Neck Intravascular Ul trasound 03/07/2025 2:33 PM CDT Narrative Procedure Note Osvaldo Doyle MD - 03/08/2025 Kota Estrella [facility] ORDERABLE S Edited Result - Final * PHOSPHORUS BLOOD (03/07/2025 5:26 AM CDT) Phosphorus 4.2 2.8 - 5.1 mg/dL 03/07/2025 6:40 AM CDT [facility] Blood BLOOD SPECIMEN / Unknown Lab Venipuncture / Unknown 03/07/2025 5:26 AM CDT 03/07/2025 5:58 AM CDT Shira Harris MD LAB - CHEMISTRY ORDERABLES Final Result Performing Organization Address City/[facility]/ZIP Co de Phone Number [address] [address], [facility] [phone] * MAGNESIUM BLOOD (03/07/2025 5:26 AM CDT) Pathologist [facility] Magnesium 1.7 1.6 - 2.6 mg/dL 03/07/2025 6:40 AM CDT [facility] Blood BLOOD SPECIMEN / Unknown Lab Venipuncture / Unknown 03/07/2025 5:26 AM CDT 03/07/2025 5:58 AM CDT us Shira Harris MD LAB - CHEMISTRY ORDERABLES Final Result Performing Organization Address City/[facility]/ZIP Co de Phone Number [address] [address], [place] [phone] * (ABNORMAL) COMPREHENSIVE METABOLIC PANEL (03/07/2025 5:26 AM CDT) BUN 30(H) 7 - 26 mg/dL 03/07/2025 6:40 AM CDT [facility] Creatinine 3.09(H) 0.71 - 1.16 mg/dL 03/07/2025 6:40 AM CDT [facility] Sodium 135(L) 136 - 145 mmol/L 03/07/2025 6:40 AM CDT [facility] Potassium 4.2 3.5 - 4.5 mmol/L 03/07/2025 6:40 AM [facility] Chloride 106 98 - 107 mmol/L 03/07/2025 6:40 AM [facility] CO2 21(L) 22 - 29 mmol/L 03/07/2025 6:40 AM [facility] Glucose 93 70 - 99 mg/dL 03/07/2025 6:40 AM [facility] Calcium 9.2 8.4 - 10.2 mg/dL 03/07/2025 6:40 AM [facility] Protein Total 7.9 6.0 - 8.3 g/dL 03/07/2025 6:40 AM [facility] Albumin 2.9(L) 3.4 - 5.0 g/dL 03/07/2025 6:40 AM [facility] Bilirubin Total 0.1(L) 0.2 - 1.2 mg/dL 03/07/2025 6:40 AM [facility] Alkaline Phosphatase 151(H) 40 - 150 U/L 03/07/2025 6:40 AM [facility] ALT 12 5 - 55 U/L 03/07/2025 6:40 AM [facility] AST 17 5 - 34 U/L 03/07/2025 6:40 AM [facility] Anion Gap 8 6 - 16 03/07/2025 6:40 AM [facility] BUN/Creatinine Ratio 10 7 - 23 03/07/2025 6:40 AM [facility] Osmolality Calculated 286 275 - 295 mOsm/kg 03/07/2025 6:40 AM [facility] Albumin/Globulin Ratio 0.6(L) 1.1 - 2.3 03/07/2025 6:40 AM [facility] eGFR by CKD-EPI 22(L) >=90 mL/min/1.7 3 m2 03/07/2025 6:40 AM [facility] Comment:Estimated Glomerular Filtration Rate (eGFR) calculated using the CKD-EPI Creatinine Equation (2020), per the [employer] and [employer] recommendations. Blood BLOOD SPECIMEN / Unknown Lab Venipuncture / Unknown 03/07/2025 5:26 AM CDT 03/07/2025 5:58 AM CDT Shira Harris MD LAB - CHEMISTRY ORDERABLES Final Result [facility] [address] [place] [address], [facility] [phone] * (ABNORMAL) CBC W AUTO DIFFERENTIAL (03/07/2025 5:26 AM CDT) WBC 11.9(H) 4.0 - 10.7 x10E9/L 03/07/2025 6:22 AM [facility] RBC Count 3.20(L) 4.30 - 5.80 x10E12/L 03/07/2025 6:22 AM [facility] Hemoglobin 8.6(L) 13.3 - 17.5 g/dL 03/07/2025 6:22 AM [facility] Hematocrit 27.6(L) 38.7 - 51.1 % 03/07/2025 6:22 AM [facility] MCV 86.3 80.0 - 98.0 fL 03/07/2025 6:22 AM [facility] MCH 26.9 26.7 - 33.6 pg 03/07/2025 6:22 AM [facility] MCHC 31.2(L) 31.7 - 36.3 g/dL 03/07/2025 6:22 AM [facility] RDW-CV 14.5 11.3 - 14.8 % 03/07/2025 6:22 AM [facility] Platelet Count 528(H) 150 - 420 x10E9/L 03/07/2025 6:22 AM [facility] MPV 9.4 7.8 - 11.4 fL 03/07/2025 6:22 AM [facility] Neutrophil % 67.0 41.0 - 74.0 % 03/07/2025 6:22 AM [facility] Lymphocyte % 18.5 17.0 - 47.0 % 03/07/2025 6:22 AM [facility] Monocyte % 8.3 3.0 - 11.0 % 03/07/2025 6:22 AM [facility] Eosinophil % 3.5 0.0 - 7.0 % 03/07/2025 6:22 AM [facility] Basophil % 0.5 0.0 - 1.6 % 03/07/2025 6:22 AM [facility] Immature Granulocytes % 2.2(H) 0.0 - 1.0 % 03/07/2025 6:22 AM [facility] Neutrophil Absolute 7.98(H) 1.60 - 7.50 x10E9/L 03/07/2025 6:22 AM [facility] Lymphocyte Absolute 2.20 1.00 - 4.40 x10E9/L 03/07/2025 6:22 AM [facility] Monocyte Absolute 0.99 0.15 - 1.00 x10E9/L 03/07/2025 6:22 AM [facility] Eosinophil Absolute 0.42 0.00 - 0.60 x10E9/L 03/07/2025 6:22 AM [facility] Basophil Absolute 0.06 0.00 - 0.13 x10E9/L 03/07/2025 6:22 AM [facility] Blood BLOOD SPECIMEN / Unknown Lab Venipuncture / Unknown 03/07/2025 5:26 AM CDT 03/07/2025 5:59 AM CDT Shira Harris MD LAB - HEMATOLOGY ORDERABLES Janet l Result [facility] [address] [place] [address], [facility] [phone] * (ABNORMAL) GLUCOSE - POINT OF CARE (2025 4:46 PM CDT) Glucose WB/POC 110(H) 70 - 99 mg/dL 2025 9:29 PM [facility] Specimen Type Arterial/C apillary 2025 9:29 PM [facility] Blood BLOOD SPECIMEN / Unknown 2025 4:46 PM CDT 2025 9:29 PM CDT us Pramod Torres DO LAB - POINT OF CARE ORDERABLES Final Result [facility] [address] [place] [address], [facility] [phone] * ECHO SINTIA COMPLETE (2025 11:32 AM CDT) Pathologist [facility] Sinus of Valsalva 3.9 cm SS M CV FUJI PACS AV area pk valeriano 3.027 cm SSM CV FUJI PACS AV area cont VTI 2.489 cm SSM CV FUJI PACS AV area index 1.262 cm /m SSM CV FUJI PACS Dimensionless Index 0.583 unitless SSM CV FUJI PACS LVOT diam 2.332 cm SSM CV FUJ I PACS LVOT VTI 14.815 cm SSM CV FUJ I PACS LVOT pk valeriano 99.846 cm/s SSM CV F UJI PACS AV pk valeriano 140.878 cm/s SSM CV FUJ I PACS AV VTI 25.418 cm SSM CV FUJ I PACS LVOT pk grad 3.988 mmHg SSM CV FUJI PACS AV mn grad 4.123 mmHg SSM CV FU JI PACS AV pk grad 7.939 mmHg SSM CV FU JI PACS Ascending aorta 3.552 cm SSM CV FUJI PACS Anatomical Region Laterality Modality Ultrasound 2025 10:4 4 AM CDT Narrative 2025 4:53 PM CDT Summary * There is a 1.16 cm x 0.78 cm mobile vegetation attached to the atrial surface of the anterior mitral valve leaflet tip (around the A2/A3 scallop tip). * There is moderate to severe mitral valve regurgitation with a very eccentric posterior jet that originates at the site of the vegetation. Mitral valve regurgitant volume is 30 ml regurgitant fraction is calculated 33%. 3-D ERO area is 0.36 cm2. Vena contracta width (2D) 0.42 cm. 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 * Agitated saline contrast study at rest and with Valsalva is negative for a shunt. * Normal left ventricular systolic function. Visually estimated LV EF is 55-60%. * Right ventricular systolic function is grossly normal. Patient Info Name: Marshall Espinal Age: 65 years : 1960 Gender: Male Ht: 67 in Wt: 178 lb BSA: 1.97 m2 HR: 96 bpm BP: 120 / 80 mmHg Heart Rhythm: Sinus Rhythm Exam Date: 2025 10:44 AM Patient Status: I/P Study Site: [facility] Primary Location: [facility] EStudy Info Exam Type: ECHO SINTIA COMPLETE Indications I34.81 - Calcification of mitral valve Contrast/Agitated Saline Contrast / Saline: Agitated Saline Amount: 10.00 ml Reaction to Contrast: no * A 3D, 2D, color Doppler and spectral Doppler transesophageal echocardiogram was performed with a Bubble Study. Staff Referring Physician: Pramod Torres Ordering Provider: Pramod Torres Attending Physician: Pramod Torres Fellow: Osvaldo Sepulveda Interior Design Instructor: Iris Greco Performing Physician: Tahmina Bui Complications * There were no complications prior to, during or in recovery from the transesophageal echocardiogram. Medications * Moderate sedation was monitored by the performing physician, see EMR for full details. A nurse administered the sedation under the supervision of a physician. * The patient was premedicated with 6.00 mg intravenous Versed. * The patient was premedicated with 150.00 mcg intravenous Fentanyl. * Sedation time was 63 minutes. Procedure Details The patient arrived in a fasting state after obtaining informed consent. The transesophageal probe was passed without difficulty into the posterior pharynx, mid-esophagus, distal esophagus, and gastric fundus. Imaging was performed at multiple levels. The patient tolerated the procedure well and there were no complications. The patient was transferred out of the examination area in satisfactory condition. Left Ventricle Normal left ventricular systolic function. Visually estimated LV EF is 55-60%. Right Ventricle Right ventricular systolic function is grossly normal. Left Atrium No mass or thrombus formation in the left atrium. Right Atrium No mass or thrombus formation in the right atrium. Atrial Septum Intact interatrial septum visualized by 2D and color Doppler imaging. Agitated saline contrast study at rest and with Valsalva is negative for a shunt. Atrial Appendage There is no thrombus noted in the left atrial appendage. Aortic Valve The aortic valve is trileaflet. There is trace aortic valve regurgitation. There is no aortic valve stenosis with a peak velocity of 1.4 m/s, mean gradient of 4 mmHg, and aortic valve area of 2.49 cm2. Pulmonic Valve The pulmonic valve is normal. There is trace pulmonic regurgitation. No stenosis. Mitral Valve There is a 1.16 cm x 0.78 cm mobile vegetation attached to the atrial surface of the anterior mitral valve leaflet tip (around the A2/A3 scallop tip). There is moderate to severe mitral valve regurgitation with a very eccentric posterior jet that originates at the site of the vegetation. Mitral valve regurgitant volume is 30 ml regurgitant fraction is calculated 33%. 3-D ERO area is 0.36 cm2. Vena contracta width (2D) 0.42 cm. 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 There is no mitral valve stenosis. Tricuspid Valve The tricuspid valve is normal. There is trace tricuspid valve regurgitation. No stenosis. Pulmonary Veins Pulmonary veins are normal by two-dimensional and color flow imaging. No systolic flow reversal in the pulmonary veins. Pericardium/Pleural There is no pericardial effusion. Aorta The aortic root at the sinus of Valsalva is normal in size measuring 3.9 cm with an index of 2.0 cm/m2. The ascending aorta is normal in size measuring 3.6 cm with an index of 1.8 cm/m2. Measurements Left Ventricular Outflow Tract Name Value Normal LVOT 2D LVOT Diameter 2.3 cm LVOT Area 4.3 cm2 LVOT Doppler LVOT Peak Velocity 1.0 m/s LVOT Peak Gradient 4 mmHg LVOT Mean Velocity 67.84 cm/s LVOT Mean Gradient 2 mmHg LVOT VTI 14.8 cm LVOT VTI/AV VTI Ratio 0.6 LVOT Stroke Volume 63 ml LVOT Stroke Volume Index 32 ml/m2 35-58 Aorta Name Value Normal Ascending Aorta Sinus of Valsalva Diameter 3.9 cm 2.8-4.0 Sinus of Valsalva Index 2.0 cm/m2 1.3-2.1 Asc Ao Diameter 3.6 cm 2.2-3.8 Asc Ao Diameter Index 1.8 cm/m2 1.1-1.9 Aortic Valve Name Value Normal AV Doppler AV Peak Velocity 1.41 m/s AV Peak Gradient 8 mmHg AV Mean Gradient 4 mmHg AV VTI 25 cm AV Area (Cont Eq VTI) 2.49 cm2 >=2.00 AV Area (Cont Eq Valeriano) 3.03 cm2 AV DI (VTI) 0.58 AV DI (Valeriano) 0.71 AV Regurgitation 2D LVOT Area 4.27 cm2 Report Signatures Finalized by Tahmina Bui on 2025 04:53 PM Reviewed by Fellow Osvaldo Sepulveda on 2025 04:40 PM Procedure Note Tahmina Bui MD - 2025 Summary * There is a 1.16 cm x 0.78 cm mobile vegetation attached to theatrial surface of the anterior mitral valve leaflet tip (around the A2/G9dyyghze tip). * There is moderate to severe mitral valve regurgitation with a very eccentric posterior jet that originates at the site of the vegetation.Mitral valve regurgitant volume is 30 ml regurgitant fraction is calculated 33%.3-D ERO area is 0.36 cm2. Vena contracta width (2D) 0.42 cm. 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 * Agitated saline contrast study at rest and with Valsalva is negativefor a shunt. * Normal left ventricular systolic function. Visually estimated LV EFis 55-60%. * Right ventricular systolic function is grossly normal. Patient Info Name: Marshall Espinal Age: 65 years : 1960 Gender: Male Ht: 67 in Wt: 178 lb BSA: 1.97 m2 HR: 96 bpm BP: 120 / 80 mmHg Heart Rhythm: Sinus Rhythm Exam Date: 2025 10:44 AM Patient Status: I/P Study Site: [facility] Primary Location: [facility] EStudy Info Exam Type: ECHO SINTIA COMPLETE Indications I34.81 - Calcification of mitral valve Contrast/Agitated Saline Contrast / Saline: Agitated Saline Amount: 10.00 ml Reaction to Contrast: no * A 3D, 2D, color Doppler and spectral Doppler transesophagealechocardiogram was performed with a Bubble Study. Staff Referring Physician: Pramod Torres Ordering Provider: Pramod Torres Attending Physician: Pramod Torres Fellow: Osvaldo Sepulveda Interior Design Instructor: Iris Greco Performing Physician: Tahmina Bui Complications * There were no complications prior to, during or in recovery from the transesophageal echocardiogram. Medications * Moderate sedation was monitored by the performing physician, see EMRfor full details. A nurse administered the sedation under the supervision ofa physician. * The patient was premedicated with 6.00 mg intravenous Versed. * The patient was premedicated with 150.00 mcg intravenous Fentanyl. * Sedation time was 63 minutes. Procedure Details The patient arrived in a fasting state after obtaining informedconsent. The transesophageal probe was passed without difficulty into theposterior pharynx, mid-esophagus, distal esophagus, and gastric fundus. Imagingwas performed at multiple levels. The patient tolerated the procedure welland there were no complications. The patient was transferred out of the examination area in satisfactory condition. Left Ventricle Normal left ventricular systolic function. Visually estimated LV EFis 55-60%. Right Ventricle Right ventricular systolic function is grossly normal. Left Atrium No mass or thrombus formation in the left atrium. Right Atrium No mass or thrombus formation in the right atrium. Atrial Septum Intact interatrial septum visualized by 2D and color Doppler imaging. Agitated saline contrast study at rest and with Valsalva is negative fora shunt. Atrial Appendage There is no thrombus noted in the left atrial appendage. Aortic Valve The aortic valve is trileaflet. There is trace aortic valveregurgitation. There is no aortic valve stenosis with a peak velocity of 1.4 m/s, mean gradient of 4 mmHg, and aortic valve area of 2.49 cm2. Pulmonic Valve The pulmonic valve is normal. There is trace pulmonic regurgitation.No stenosis. Mitral Valve There is a 1.16 cm x 0.78 cm mobile vegetation attached to the atrial surface of the anterior mitral valve leaflet tip (around the A2/N9qebpklt tip). There is moderate to severe mitral valve regurgitation with a very eccentric posterior jet that originates at the site of the vegetation.Mitral valve regurgitant volume is 30 ml regurgitant fraction is calculated 33%.3-D ERO area is 0.36 cm2. Vena contracta width (2D) 0.42 cm. 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 There is no mitral valve stenosis. Tricuspid Valve The tricuspid valve is normal. There is trace tricuspid valveregurgitation. No stenosis. Pulmonary Veins Pulmonary veins are normal by two-dimensional and color flow imaging.No systolic flow reversal in the pulmonary veins. Pericardium/Pleural There is no pericardial effusion. Aorta The aortic root at the sinus of Valsalva is normal in size measuring 3.9cm with an index of 2.0 cm/m2. The ascending aorta is normal in sizemeasuring 3.6 cm with an index of 1.8 cm/m2. Measurements Left Ventricular Outflow Tract Name Value Normal LVOT 2D LVOT Diameter 2.3 cm LVOT Area 4.3 cm2 LVOT Doppler LVOT Peak Velocity 1.0 m/s LVOT Peak Gradient 4 mmHg LVOT Mean Velocity 67.84 cm/s LVOT Mean Gradient 2 mmHg LVOT VTI 14.8 cm LVOT VTI/AV VTI Ratio 0.6 LVOT Stroke Volume 63 ml LVOT Stroke Volume Index 32 ml/m2 35-58 Aorta Name Value Normal Ascending Aorta Sinus of Valsalva Diameter 3.9 cm 2.8-4.0 Sinus of Valsalva Index 2.0 cm/m2 1.3-2.1 Asc Ao Diameter 3.6 cm 2.2-3.8 Asc Ao Diameter Index 1.8 cm/m2 1.1-1.9 Aortic Valve Name Value Normal AV Doppler AV Peak Velocity 1.41 m/s AV Peak Gradient 8 mmHg AV Mean Gradient 4 mmHg AV VTI 25 cm AV Area (Cont Eq VTI) 2.49 cm2 >=2.00 AV Area (Cont Eq Valeriano) 3.03 cm2 AV DI (VTI) 0.58 AV DI (Valeriano) 0.71 AV Regurgitation 2D LVOT Area 4.27 cm2 Report Signatures Finalized by Tahmina Bui on 2025 04:53 PM Reviewed by Fellow Osvaldo Sepulveda on 2025 04:40 PM Pramod Haji Torres DO ECHO CUPID Final Result * PHOSPHORUS BLOOD (2025 4:24 AM CDT) Phosphorus 4.1 2.8 - 5.1 mg/dL 2025 6:11 AM CDT [facility] Blood BLOOD SPECIMEN / Unknown Lab Venipuncture / Unknown 2025 4:24 AM CDT 2025 5:43 AM CDT Shira Harris MD LAB - CHEMISTRY ORDERABLES Final Result [address] [address], [facility] [phone] * MAGNESIUM BLOOD (2025 4:24 AM CDT) Magnesium 1.7 1.6 - 2.6 mg/dL 2025 6:11 AM CDT [facility] Blood BLOOD SPECIMEN / Unknown Lab Venipuncture / Unknown 2025 4:24 AM CDT 2025 5:43 AM CDT Shira Harris MD LAB - CHEMISTRY ORDERABLES Final Result [address] [address], [place] [phone] * (ABNORMAL) COMPREHENSIVE METABOLIC PANEL (2025 4:24 AM CDT) BUN 30(H) 7 - 26 mg/dL 2025 6:11 AM CDT [facility] Creatinine 3.16(H) 0.71 - 1.16 mg/dL 2025 6:11 AM [facility] Sodium 137 136 - 145 mmol/L 2025 6:11 AM [facility] Potassium 4.1 3.5 - 4.5 mmol/L 2025 6:11 AM [facility] Chloride 108(H) 98 - 107 mmol/L 2025 6:11 AM [facility] CO2 20(L) 22 - 29 mmol/L 2025 6:11 AM [facility] Glucose 93 70 - 99 mg/dL 2025 6:11 AM [facility] Calcium 9.7 8.4 - 10.2 mg/dL 2025 6:11 AM [facility] Protein Total 7.8 6.0 - 8.3 g/dL 2025 6:11 AM [facility] Albumin 2.9(L) 3.4 - 5.0 g/dL 2025 6:11 AM [facility] Bilirubin Total 0.1(L) 0.2 - 1.2 mg/dL 2025 6:11 AM [facility] Alkaline Phosphatase 162(H) 40 - 150 U/L 2025 6:11 AM [facility] ALT 11 5 - 55 U/L 2025 6:11 AM [facility] AST 14 5 - 34 U/L 2025 6:11 AM [facility] Anion Gap 9 6 - 16 2025 6:11 AM [facility] BUN/Creatinine Ratio 9 7 - 23 2025 6:11 AM [facility] Osmolality Calculated 290 275 - 295 mOsm/kg 2025 6:11 AM [facility] Albumin/Globulin Ratio 0.6(L) 1.1 - 2.3 2025 6:11 AM [facility] eGFR by CKD-EPI 21(L) >=90 mL/min/1.7 3 m2 2025 6:11 AM [facility] Comment:Estimated Glomerular Filtration Rate (eGFR) calculated using the CKD-EPI Creatinine Equation (2020), per the National Kidney Foundation and [employer] Neph[employer] recommendations. Blood BLOOD SPECIMEN / Unknown Lab Venipuncture / Unknown 2025 4:24 AM CDT 2025 5:43 AM CDT us Shira Harris MD LAB - CHEMISTRY ORDERABLES Final Result [facility] [address] [place] [address], [facility] [phone] * (ABNORMAL) CBC W AUTO DIFFERENTIAL (2025 4:24 AM CDT) WBC 11.8(H) 4.0 - 10.7 x10E9/L 2025 5:46 AM [facility] RBC Count 3.06(L) 4.30 - 5.80 x10E12/L 2025 5:46 AM [facility] Hemoglobin 8.4(L) 13.3 - 17.5 g/dL 2025 5:46 AM [facility] Hematocrit 26.2(L) 38.7 - 51.1 % 2025 5:46 AM [facility] MCV 85.6 80.0 - 98.0 fL 2025 5:46 AM [facility] MCH 27.5 26.7 - 33.6 pg 2025 5:46 AM [facility] MCHC 32.1 31.7 - 36.3 g/dL 2025 5:46 AM [facility] RDW-CV 14.5 11.3 - 14.8 % 2025 5:46 AM [facility] Platelet Count 501(H) 150 - 420 x10E9/L 2025 5:46 AM [facility] MPV 9.7 7.8 - 11.4 fL 2025 5:46 AM [facility] Neutrophil % 69.8 41.0 - 74.0 % 2025 5:46 AM [facility] Lymphocyte % 15.6(L) 17.0 - 47.0 % 2025 5:46 AM [facility] Monocyte % 8.6 3.0 - 11.0 % 2025 5:46 AM [facility] Eosinophil % 3.4 0.0 - 7.0 % 2025 5:46 AM [facility] Basophil % 0.6 0.0 - 1.6 % 2025 5:46 AM [facility] Immature Granulocytes % 2.0(H) 0.0 - 1.0 % 2025 5:46 AM [facility] Neutrophil Absolute 8.26(H) 1.60 - 7.50 x10E9/L 2025 5:46 AM [facility] Lymphocyte Absolute 1.85 1.00 - 4.40 x10E9/L 2025 5:46 AM [facility] Monocyte Absolute 1.02(H) 0.15 - 1.00 x10E9/L 2025 5:46 AM [facility] Eosinophil Absolute 0.40 0.00 - 0.60 x10E9/L 2025 5:46 AM [facility] Basophil Absolute 0.07 0.00 - 0.13 x10E9/L 2025 5:46 AM [facility] Blood BLOOD SPECIMEN / Unknown Lab Venipuncture / Unknown 2025 4:24 AM CDT 2025 5:42 AM CDT us Shira Harris MD LAB - HEMATOLOGY ORDERABLES Janet l Result [facility] [address] [place] [address], [facility] [phone] * PHOSPHORUS BLOOD (03/05/2025 5:28 AM CDT) [facility] Phosphorus 3.7 2.8 - 5.1 mg/dL 03/05/2025 6:18 AM [facility] Blood BLOOD SPECIMEN / Unknown Lab Venipuncture / Unknown 03/05/2025 5:28 AM CDT 03/05/2025 5:50 AM CDT us Shira Harris MD LAB - CHEMISTRY ORDERABLES Final Result Performing Organization Address City/[facility]/ZIP Co de Phone Number [address] [address], [facility] [phone] * MAGNESIUM BLOOD (03/05/2025 5:28 AM CDT) Magnesium 1.8 1.6 - 2.6 mg/dL 03/05/2025 6:18 AM [facility] Blood BLOOD SPECIMEN / Unknown Lab Venipuncture / Unknown 03/05/2025 5:28 AM CDT 03/05/2025 5:50 AM CDT us Shira Harris MD LAB - CHEMISTRY ORDERABLES Final Result Performing Organization Address [facility]/ZIP Co de Phone Number [address] [address], [facility] [phone] * (ABNORMAL) COMPREHENSIVE METABOLIC PANEL (03/05/2025 5:28 AM CDT) BUN 34(H) 7 - 26 mg/dL 03/05/2025 6:18 AM [facility] Creatinine 3.26(H) 0.71 - 1.16 mg/dL 03/05/2025 6:18 AM [facility] Sodium 138 136 - 145 mmol/L 03/05/2025 6:18 AM [facility] Potassium 4.2 3.5 - 4.5 mmol/L 03/05/2025 6:18 AM [facility] Chloride 109(H) 98 - 107 mmol/L 03/05/2025 6:18 AM [facility] CO2 20(L) 22 - 29 mmol/L 03/05/2025 6:18 AM [facility] Glucose 99 70 - 99 mg/dL 03/05/2025 6:18 AM [facility] Calcium 9.5 8.4 - 10.2 mg/dL 03/05/2025 6:18 AM [facility] Protein Total 7.9 6.0 - 8.3 g/dL 03/05/2025 6:18 AM [facility] Albumin 2.8(L) 3.4 - 5.0 g/dL 03/05/2025 6:18 AM [facility] Bilirubin Total 0.2 0.2 - 1.2 mg/dL 03/05/2025 6:18 AM [facility] Alkaline Phosphatase 170(H) 40 - 150 U/L 03/05/2025 6:18 AM [facility] ALT 10 5 - 55 U/L 03/05/2025 6:18 AM [facility] AST 12 5 - 34 U/L 03/05/2025 6:18 AM [facility] Anion Gap 9 6 - 16 03/05/2025 6:18 AM [facility] BUN/Creatinine Ratio 10 7 - 23 03/05/2025 6:18 AM [facility] Osmolality Calculated 294 275 - 295 mOsm/kg 03/05/2025 6:18 AM [facility] Albumin/Globulin Ratio 0.5(L) 1.1 - 2.3 03/05/2025 6:18 AM [facility] eGFR by CKD-EPI 20(L) >=90 mL/min/1.7 3 m2 03/05/2025 6:18 AM [facility] Comment:Estimated Glomerular Filtration Rate (eGFR) calculated using the CKD-EPI Creatinine Equation (2020), per the National Kidney Foundation and [employer] Society [employer] Nephrology recommendations. Blood BLOOD SPECIMEN / Unknown Lab Venipuncture / Unknown 03/05/2025 5:28 AM CDT 03/05/2025 5:50 AM [facility] us Shira Harris MD LAB - CHEMISTRY ORDERABLES Final Result [facility] [address] [place] [address], [facility] [phone] * (ABNORMAL) CBC W AUTO DIFFERENTIAL (03/05/2025 5:28 AM [facility]) [facility] Signature WBC 10.9(H) 4.0 - 10.7 x10E9/L 03/05/2025 5:56 AM [facility] RBC Count 3.11(L) 4.30 - 5.80 x10E12/L 03/05/2025 5:56 AM [facility] Hemoglobin 8.5(L) 13.3 - 17.5 g/dL 03/05/2025 5:56 AM [facility] Hematocrit 26.4(L) 38.7 - 51.1 % 03/05/2025 5:56 AM [facility] MCV 84.9 80.0 - 98.0 fL 03/05/2025 5:56 AM [facility] MCH 27.3 26.7 - 33.6 pg 03/05/2025 5:56 AM [facility] MCHC 32.2 31.7 - 36.3 g/dL 03/05/2025 5:56 AM [facility] RDW-CV 14.4 11.3 - 14.8 % 03/05/2025 5:56 AM [facility] Platelet Count 461(H) 150 - 420 x10E9/L 03/05/2025 5:56 AM [facility] MPV 9.6 7.8 - 11.4 fL 03/05/2025 5:56 AM [facility] Neutrophil % 70.8 41.0 - 74.0 % 03/05/2025 5:56 AM [facility] Lymphocyte % 14.9(L) 17.0 - 47.0 % 03/05/2025 5:56 AM [facility] Monocyte % 9.0 3.0 - 11.0 % 03/05/2025 5:56 AM [facility] Eosinophil % 3.3 0.0 - 7.0 % 03/05/2025 5:56 AM [facility] Basophil % 0.5 0.0 - 1.6 % 03/05/2025 5:56 AM [facility] Immature Granulocytes % 1.5(H) 0.0 - 1.0 % 03/05/2025 5:56 AM CDT [facility] Neutrophil Absolute 7.73(H) 1.60 - 7.50 x10E9/L 03/05/2025 5:56 AM CDT [facility] Lymphocyte Absolute 1.63 1.00 - 4.40 x10E9/L 03/05/2025 5:56 AM CDT [facility] Monocyte Absolute 0.98 0.15 - 1.00 x10E9/L 03/05/2025 5:56 AM CDT [facility] Eosinophil Absolute 0.36 0.00 - 0.60 x10E9/L 03/05/2025 5:56 AM T [facility] Basophil Absolute 0.06 0.00 - 0.13 x10E9/L 03/05/2025 5:56 AM CDT [facility] Blood BLOOD SPECIMEN / Unknown Lab Venipuncture / Unknown 03/05/2025 5:28 AM CDT 03/05/2025 5:50 AM CDT Shira Harris MD LAB - HEMATOLOGY ORDERABLES Janet l Result [facility] [address] [place] [address], [facility] [phone] * CULTURE BLOOD (03/04/2025 11:09 AM CDT) Culture No growth day 5 LAVELLE 03/09/2025 1:30 PM CDT [facility] Blood PERIPHERAL BLOOD / Unknown Lab Venipuncture / Unknown 03/04/2025 11:09 AM CDT 03/04/2025 11:25 AM CDT Pramod Torres DO LAB - MICROBIOLOGY ORDERABLES Final Result [facility] MICROBIOLOGY [address] [place] [address], [facility] [phone] * CULTURE BLOOD (03/04/2025 11:09 AM CDT) Culture No growth day 5 [place]LE 03/09/2025 1:30 PM CDT [facility] MICROBIOLOGY Blood PERIPHERAL BLOOD / Unknown Lab Venipuncture / Unknown 03/04/2025 11:09 AM CDT 03/04/2025 11:25 AM CDT Pramod Torres DO LAB - MICROBIOLOGY ORDERABLES Final Result [facility] MICROBIOLOGY [address] [place] [address], [facility] [phone] * PHOSPHORUS BLOOD (03/04/2025 6:36 AM CDT) Phosphorus 3.9 2.8 - 5.1 mg/dL 03/04/2025 7:24 AM CDT [facility] Blood BLOOD SPECIMEN / Unknown Lab Venipuncture / Unknown 03/04/2025 6:36 AM CDT 03/04/2025 6:57 AM CDT Shira Harris MD LAB - CHEMISTRY ORDERABLES Final Result Performing Organization Address [facility]/ZIP Co de Phone Number [address] [phone], [facility] [phone] * MAGNESIUM BLOOD (03/04/2025 6:36 AM CDT) Magnesium 1.9 1.6 - 2.6 mg/dL 03/04/2025 7:24 AM CDT [facility] Blood BLOOD SPECIMEN / Unknown Lab Venipuncture / Unknown 03/04/2025 6:36 AM CDT 03/04/2025 6:57 AM CDT us Shira Harris MD LAB - CHEMISTRY ORDERABLES Final Result Performing Organization Address City/[facility] Center/ZIP Co de Phone Number [address] [address], [facility] [phone] * (ABNORMAL) COMPREHENSIVE METABOLIC PANEL (03/04/2025 6:36 AM CDT) BUN 38(H) 7 - 26 mg/dL 03/04/2025 7:24 AM [facility] Creatinine 3.44(H) 0.71 - 1.16 mg/dL 03/04/2025 7:24 AM [facility] Sodium 138 136 - 145 mmol/L 03/04/2025 7:24 AM [facility] Potassium 4.0 3.5 - 4.5 mmol/L 03/04/2025 7:24 AM [facility] Chloride 111(H) 98 - 107 mmol/L 03/04/2025 7:24 AM [facility] CO2 20(L) 22 - 29 mmol/L 03/04/2025 7:24 AM [facility] Glucose 95 70 - 99 mg/dL 03/04/2025 7:24 AM [facility] Calcium 9.4 8.4 - 10.2 mg/dL 03/04/2025 7:24 AM [facility] Protein Total 7.7 6.0 - 8.3 g/dL 03/04/2025 7:24 AM [facility] Albumin 2.8(L) 3.4 - 5.0 g/dL 03/04/2025 7:24 AM [facility] Bilirubin Total 0.2 0.2 - 1.2 mg/dL 03/04/2025 7:24 AM [facility] Alkaline Phosphatase 185(H) 40 - 150 U/L 03/04/2025 7:24 AM [facility] ALT 8 5 - 55 U/L 03/04/2025 7:24 AM [facility] AST 9 5 - 34 U/L 03/04/2025 7:24 AM [facility] Anion Gap 7 6 - 16 03/04/2025 7:24 AM [facility] BUN/Creatinine Ratio 11 7 - 23 03/04/2025 7:24 AM [facility] Osmolality Calculated 295 275 - 295 mOsm/kg 03/04/2025 7:24 AM [facility] Albumin/Globulin Ratio 0.6(L) 1.1 - 2.3 03/04/2025 7:24 AM CDT [facility] eGFR by CKD-EPI 19(L) >=90 mL/min/1.7 3 m2 03/04/2025 7:24 AM [facility] Comment:Estimated Glomerular Filtration Rate (eGFR) calculated using the CKD-EPI Creatinine Equation (2020), per the National Kidney Foundation and [employer] Society of Nephrology recommendations. Blood BLOOD SPECIMEN / Unknown Lab Venipuncture / Unknown 03/04/2025 6:36 AM CDT 03/04/2025 6:57 AM CDT us Shira Harris MD LAB - CHEMISTRY ORDERABLES Final Result [address] [address], [facility] [phone] * (ABNORMAL) CBC W AUTO DIFFERENTIAL (03/04/2025 6:36 AM CDT) WBC 9.2 4.0 - 10.7 x10E9/L 03/04/2025 7:06 AM [facility] RBC Count 3.23(L) 4.30 - 5.80 x10E12/L 03/04/2025 7:06 AM [facility] Hemoglobin 8.8(L) 13.3 - 17.5 g/dL 03/04/2025 7:06 AM [facility] Hematocrit 28.1(L) 38.7 - 51.1 % 03/04/2025 7:06 AM [facility] MCV 87.0 80.0 - 98.0 fL 03/04/2025 7:06 AM [facility] MCH 27.2 26.7 - 33.6 pg 03/04/2025 7:06 AM [facility] MCHC 31.3(L) 31.7 - 36.3 g/dL 03/04/2025 7:06 AM [facility] RDW-CV 14.5 11.3 - 14.8 % 03/04/2025 7:06 AM [facility] Platelet Count 443(H) 150 - 420 x10E9/L 03/04/2025 7:06 AM [facility] MPV 9.5 7.8 - 11.4 fL 03/04/2025 7:06 AM [facility] Neutrophil % 74.5(H) 41.0 - 74.0 % 03/04/2025 7:06 AM [facility] Lymphocyte % 12.8(L) 17.0 - 47.0 % 03/04/2025 7:06 AM [facility] Monocyte % 8.3 3.0 - 11.0 % 03/04/2025 7:06 AM [facility] Eosinophil % 3.2 0.0 - 7.0 % 03/04/2025 7:06 AM [facility] Basophil % 0.3 0.0 - 1.6 % 03/04/2025 7:06 AM [facility] Immature Granulocytes % 0.9 0.0 - 1.0 % 03/04/2025 7:06 AM [facility] Neutrophil Absolute 6.83 1.60 - 7.50 x10E9/L 03/04/2025 7:06 AM [facility] Lymphocyte Absolute 1.17 1.00 - 4.40 x10E9/L 03/04/2025 7:06 AM [facility] Monocyte Absolute 0.76 0.15 - 1.00 x10E9/L 03/04/2025 7:06 AM [facility] Eosinophil Absolute 0.29 0.00 - 0.60 x10E9/L 03/04/2025 7:06 AM [facility] Basophil Absolute 0.03 0.00 - 0.13 x10E9/L 03/04/2025 7:06 AM [facility] Blood BLOOD SPECIMEN / Unknown Lab Venipuncture / Unknown 03/04/2025 6:36 AM CDT 03/04/2025 6:57 AM T us Shira Harris MD LAB - HEMATOLOGY ORDERABLES Janet l Result [facility] [address] [place] [address], [facility] [phone] * HEPATITIS C AB SCREEN RFLX NAAT QUANT (03/04/2025 6:36 AM CDT) Hepatitis C Antibody Non-react francisco Non-reac tive 03/04/2025 8:16 AM CDT [facility] Comment:Hepatitis C Antibody screen indicates no serologic evidence of past or current infection with Hepatitis C Virus. Patients with unexplained liver disease who are immunocompromised or suspected of having acute Hepatitis C infection may benefit from Nucleic Acid Test (PANKAJ) for Hepatitis C Viral RNA to confirm Hepatitis C status. Blood BLOOD SPECIMEN / Unknown Lab Venipuncture / Unknown 03/04/2025 6:36 AM CDT 03/04/2025 6:55 AM CDT Pramod Torres DO LAB - CHEMISTRY ORDERABLES Fin al Result [facility] [address] [place] [address], [facility] [phone] * HEPATITIS B PANEL (03/04/2025 6:36 AM CDT) Pathologist [facility] Hepatitis B Surface Antibody Quantitative <3.0 <8.0 mIU/mL 03/04/2025 8:41 AM T [facility] Comment: Hepatitis B Surface Antibody Numeric Result Interpretation: Nonreactive: <8.0 mIU/mL Indeterminate: 8.0 - 12.0 mIU/mL Reactive: >12.0 mIU/mL Hepatitis B Virus Surface Antibody Non-react francisco Non-react francisco 03/04/2025 8:41 AM [facility] Comment: < 8 mIU/mL Hepatitis B surface Antibody (HBsAb). Nonreactive for HBsAb - individual is considered not immune to Hepatitis B Virus infection. Hepatitis B Virus Surface Antigen Non-react francisco Non-react francisco 03/04/2025 8:41 AM [facility] Hepatitis B Core Virus Antibody IgM Non-react francisco Non-react francisco 03/04/2025 8:41 AM CDT [facility] Blood BLOOD SPECIMEN / Unknown Lab Venipuncture / Unknown 03/04/2025 6:36 AM CDT 03/04/2025 6:55 AM CDT Koolanoo Grouper DO LAB - CHEMISTRY ORDERABLES Fin al Result Performing Organization Address [facility] Co de Phone Number [address] [address], [facility] [phone] * HIV-1 HIV-2 ANTIBODY + HIV P24 AG PANEL (03/04/2025 6:36 AM CDT) HIV Antigen/Antibod y 1 & 2 Non-reacti ve Non-react francisco 03/04/2025 9:14 AM CDT [facility] Comment:No Laboratory eviden ce of HIV infection. Blood BLOOD SPECIMEN / Unknown Lab Venipuncture / Unknown 03/04/2025 6:36 AM CDT 03/04/2025 6:55 AM CDT Pramodlashon Torres DO LAB - CHEMISTRY ORDERABLES Fin al Result Performing Organization Address [facility] Co de Phone Number [address] [address], [facility] [phone] * XR Panorex (03/03/2025 4:22 PM CDT) Anatomical Region Laterality Modality Head Radiographic Melba ging 03/04/2025 8:30 AM CDT Impressions 03/04/2025 9:17 AM CDT IMPRESSION: Lucencies within the right mandibular presumed location of absent of the molar and premolar teeth. Recommend dental consultation. The report was drafted by Ofe Aponte MD (president finance company) 03/04/2025 8:30 AM. > Dictated by Lighting Equipment Operator I, Jamie Barriga MD have personally reviewed and interpreted this examination/study. > Interpreting Provider: Jamie Barriga MD on 03/04/2025 9:17 AM Narrative 03/04/2025 9:17 AM CDT PROCEDURE: XR PANOREX, DATE/TIME OF EXAM: 03/03/2025 4:22 PM, LOCATION [facility] INDICATION: D73.3: Abscess of spleen I34.81: Calcification of mitral valve ADDITIONAL CLINICAL INFORMATION: Ordering Provider Reason For Exam: Dental caries, bacteremia workup COMPARISON: None. FINDINGS: Multiple dental restorations are identified, and numerous teeth are absent. There are scattered dental caries. No acute mandibular fracture is identified. Both temporomandibular joints are intact. Lucencies within the right mandibular presumed location of absent of the molar and premolar teeth. Procedure Note Jamie Barriga MD - 03/04/2025 PROCEDURE: XR PANOREX, DATE/TIME OF EXAM: 03/03/2025 4:22 PM, [facility] INDICATION: D73.3: Abscess of spleen I34.81: Calcification of mitral valve ADDITIONAL CLINICAL INFORMATION: Ordering Provider Reason For Exam: Dental caries, bacteremia workup COMPARISON: None. FINDINGS: Multiple dental restorations are identified, and numerous teeth areabsent. There are scattered dental caries. No acute mandibular fracture is identified. Both temporomandibular joints are intact. Lucencies withinthe right mandibular presumed location of absent of the molar and premolar teeth. IMPRESSION: Lucencies within the right mandibular presumed location of absent of the molar and premolar teeth. Recommend dental consultation. The report was drafted by Ofe Aponte MD (president finance company) 03/04/2025 8:30 AM. > Dictated by Lighting Equipment Operator I, Jamie Barriga MD have personally reviewed and interpreted this examination/study. > Interpreting Provider: Jamie Barriga MD on 03/04/2025 9:17 AM Pramod Torres DO DIAGNOSTIC IMAGING ORDERABLES Final Result * URINE DRUG SCREEN IMMUNOASSAY (03/03/2025 12:34 PM CDT) Amphetamines Screen Urine Negative Negative: < 1000 ng/mL 03/03/2025 1:24 PM CDT [facility] Barbiturates Screen Urine Negative Negative: < 200 ng/mL 03/03/2025 1:24 PM [facility] Benzodiazepine Screen Urine Negative Negative: < 200 ng/mL 03/03/2025 1:24 PM T [facility] Opiates Urine Negative Negative: < 300 ng/mL 03/03/2025 1:24 PM [facility] Cocaine Metabolites Urine Negative Negative: < 300 ng/mL 03/03/2025 1:24 PM CDT [facility] Phencyclidine Screen Urine Negative Negative: < 25 ng/ml 03/03/2025 1:24 PM CDT [facility] Cannabinoids Screen Urine Negative Negative: <50 ng/mL 03/03/2025 1:24 PM CDT [facility] Methadone Screen Urine Negative Negative: < 300 ng/mL 03/03/2025 1:24 PM CDT [facility] Fentanyl Screen Urine Negative Negative: <1.5 ng/mL 03/03/2025 1:24 PM CDT [facility] Urine URINE / Unknown Collection / Unknown 03/03/2025 12:34 PM CDT 03/03/2025 12:39 PM CDT Narrative [facility] - 03/03/2025 1:24 PM CDT The Urine Toxicology Screening Panel does not screen for Propoxyphene, Meprobamate, Carisoprodol, Trazodone, [id number]-vdpljeh medications and/or volatiles (Acetone, Isopropanol, Methanol or Ethylene Glycol). Ethanol, Salicylate, Acetaminophen, Tricyclic Antidepressants and several therapeutic drugs may be individually assayed in serum or plasma specimen. Toxicology testing by the [facility] is an aid to medical diagnosis and treatment of patients. No documented chain of custody was maintained. Results are intended to be used for clinical purposes only. Pramod Torres DO LAB - URINE CHEMISTRY ORDERABL ES Final Result Performing Organization Address City/[facility]/ZIP Co de Phone Number [address] [address], [facility] [phone] * PHOSPHORUS BLOOD (03/03/2025 5:00 AM CDT) Phosphorus 4.6 2.8 - 5.1 mg/dL 03/03/2025 6:09 AM CDT [facility] Blood BLOOD SPECIMEN / Unknown Lab Venipuncture / Unknown 03/03/2025 5:00 AM CDT 03/03/2025 5:34 AM CDT Shira Harris MD LAB - CHEMISTRY ORDERABLES Final Result [address] [address], [facility] [phone] * MAGNESIUM BLOOD (03/03/2025 5:00 AM CDT) [facility] Magnesium 1.9 1.6 - 2.6 mg/dL 03/03/2025 6:09 AM [facility] Blood BLOOD SPECIMEN / Unknown Lab Venipuncture / Unknown 03/03/2025 5:00 AM CDT 03/03/2025 5:34 AM CDT Shira Harris MD LAB - CHEMISTRY ORDERABLES Final Result [address] [address], [facility] [phone] * (ABNORMAL) COMPREHENSIVE METABOLIC PANEL (03/03/2025 5:00 AM CDT) [facility] BUN 44(H) 7 - 26 mg/dL 03/03/2025 6:09 AM [facility] Creatinine 3.62(H) 0.71 - 1.16 mg/dL 03/03/2025 6:09 AM [facility] Sodium 138 136 - 145 mmol/L 03/03/2025 6:09 AM [facility] Potassium 4.0 3.5 - 4.5 mmol/L 03/03/2025 6:09 AM [facility] Chloride 107 98 - 107 mmol/L 03/03/2025 6:09 AM [facility] CO2 20(L) 22 - 29 mmol/L 03/03/2025 6:09 AM [facility] Glucose 103(H) 70 - 99 mg/dL 03/03/2025 6:09 AM [facility] Calcium 9.1 8.4 - 10.2 mg/dL 03/03/2025 6:09 AM [facility] Protein Total 7.2 6.0 - 8.3 g/dL 03/03/2025 6:09 AM [facility] Albumin 2.6(L) 3.4 - 5.0 g/dL 03/03/2025 6:09 AM [facility] Bilirubin Total 0.3 0.2 - 1.2 mg/dL 03/03/2025 6:09 AM [facility] Alkaline Phosphatase 212(H) 40 - 150 U/L 03/03/2025 6:09 AM [facility] ALT <5(L) 5 - 55 U/L 03/03/2025 6:09 AM [facility] AST 11 5 - 34 U/L 03/03/2025 6:09 AM [facility] Anion Gap 11 6 - 16 03/03/2025 6:09 AM [facility] BUN/Creatinine Ratio 12 7 - 23 03/03/2025 6:09 AM [facility] Osmolality Calculated 297(H) 275 - 295 mOsm/kg 03/03/2025 6:09 AM [facility] Albumin/Globulin Ratio 0.6(L) 1.1 - 2.3 03/03/2025 6:09 AM [facility] eGFR by CKD-EPI 18(L) >=90 mL/min/1.7 3 m2 03/03/2025 6:09 AM [facility] Comment:Estimated Glomerular Filtration Rate (eGFR) calculated using the CKD-EPI Creatinine Equation (2020), per the National Kidney Foundation and [employer] Society of Nephrology recommendations. Blood BLOOD SPECIMEN / Unknown Lab Venipuncture / Unknown 03/03/2025 5:00 AM CDT 03/03/2025 5:34 AM T Shira Harris MD LAB - CHEMISTRY ORDERABLES Final Result [facility] [address] [place] [address], [facility] [phone] * (ABNORMAL) CBC W AUTO DIFFERENTIAL (03/03/2025 5:00 AM CDT) WBC 11.7(H) 4.0 - 10.7 x10E9/L 03/03/2025 6:08 AM [facility] RBC Count 3.05(L) 4.30 - 5.80 x10E12/L 03/03/2025 6:08 AM [facility] Hemoglobin 8.2(L) 13.3 - 17.5 g/dL 03/03/2025 6:08 AM [facility] Hematocrit 26.3(L) 38.7 - 51.1 % 03/03/2025 6:08 AM [facility] MCV 86.2 80.0 - 98.0 fL 03/03/2025 6:08 AM [facility] MCH 26.9 26.7 - 33.6 pg 03/03/2025 6:08 AM [facility] MCHC 31.2(L) 31.7 - 36.3 g/dL 03/03/2025 6:08 AM [facility] RDW-CV 14.4 11.3 - 14.8 % 03/03/2025 6:08 AM [facility] Platelet Count 412 150 - 420 x10E9/L 03/03/2025 6:08 AM [facility] MPV 9.6 7.8 - 11.4 fL 03/03/2025 6:08 AM [facility] Neutrophil % 70.7 41.0 - 74.0 % 03/03/2025 6:08 AM [facility] Lymphocyte % 16.1(L) 17.0 - 47.0 % 03/03/2025 6:08 AM [facility] Monocyte % 8.9 3.0 - 11.0 % 03/03/2025 6:08 AM [facility] Eosinophil % 3.2 0.0 - 7.0 % 03/03/2025 6:08 AM [facility] Basophil % 0.2 0.0 - 1.6 % 03/03/2025 6:08 AM [facility] Immature Granulocytes % 0.9 0.0 - 1.0 % 03/03/2025 6:08 AM [facility] Neutrophil Absolute 8.29(H) 1.60 - 7.50 x10E9/L 03/03/2025 6:08 AM [facility] Lymphocyte Absolute 1.88 1.00 - 4.40 x10E9/L 03/03/2025 6:08 AM CDT [facility] Monocyte Absolute 1.04(H) 0.15 - 1.00 x10E9/L 03/03/2025 6:08 AM CDT [facility] Eosinophil Absolute 0.37 0.00 - 0.60 x10E9/L 03/03/2025 6:08 AM CDT [facility] Basophil Absolute 0.02 0.00 - 0.13 x10E9/L 03/03/2025 6:08 AM CDT [facility] Blood BLOOD SPECIMEN / Unknown Lab Venipuncture / Unknown 03/03/2025 5:00 AM CDT 03/03/2025 5:36 AM CDT Shira Harris MD LAB - HEMATOLOGY ORDERABLES Janet l Result Performing Organization Address City/[facility]/ZIP Co de Phone Number [address] [address], [facility] [phone] * VANCOMYCIN LEVEL RANDOM (03/03/2025 5:00 AM CDT) Vancomycin Random 17.1 Therapeutic Ranges not established for random specimens ug/mL 03/03/2025 6:06 AM CDT [facility] Blood BLOOD SPECIMEN / Unknown Lab Venipuncture / Unknown 03/03/2025 5:00 AM CDT 03/03/2025 5:31 AM CDT Narrative [facility] - 03/03/2025 6:06 AM CDT See institution protocol. Pramod Torres DO LAB - CHEMISTRY ORDERABLES Fin al Result [address] [address], [place] [phone] * VANCOMYCIN LEVEL RANDOM (03/02/2025 4:43 PM CDT) Vancomycin Random 20.4 Therapeutic Ranges not established for random specimens ug/mL 03/02/2025 5:24 PM CDT [facility] Blood BLOOD SPECIMEN / Unknown Lab Venipuncture / Unknown 03/02/2025 4:43 PM CDT 03/02/2025 4:58 PM CDT Narrative [facility] - 03/02/2025 5:24 PM CDT See institution protocol. Shira Harris MD LAB - CHEMISTRY ORDERABLES Final Result [facility] [address] [place] [address], [facility] [phone] * ECHO COMPLETE W CONTRAST (03/02/2025 12:17 PM CDT) LVOT pk valeriano 108.123 cm/s SSM CV F UJI PACS AV mn grad 2.563 mmHg SSM CV FU JI PACS LV ESV A2C 44.485 ml SSM CV FU JI PACS LV A2C EF 64.862 % SSM CV FUJ I PACS LA size 3.994 cm SSM CV FUJ I PACS AV VTI 19.947 cm SSM CV FUJ I PACS LVOT pk grad 3.916 mmHg SSM CV FUJI PACS Ascending aorta 3.416 cm SSM CV FUJI PACS AV pk grad 5.024 mmHg SSM CV FU JI PACS LVOT VTI 19.161 cm SSM CV FUJ I PACS AV area pk valeriano 3.513 cm SSM CV FUJI PACS LV A4C EF 63.368 % SSM CV FUJ I PACS AV area cont VTI 3.54 cm SSM CV FUJI PACS MV mn grad 1.59 mmHg SSM CV FU JI PACS LVIDs 2.683 cm SSM CV FUJ I PACS MV pk valeriano regurg 522.826 cm/s SSM CV FUJI PACS MV VTI 17.756 cm SSM CV FUJ I PACS RVIDd 3.912 cm SSM CV FUJ I PACS MR VTI 161.722 cm SSM CV FUJ I PACS TAPSE 2.078 cm SSM CV FUJ I PACS TR pk valeriano 232.998 cm/s SSM CV FUJ I PACS PV pk valeriano 111.933 cm/s SSM CV FUJ I PACS AV pk valeriano 113.448 cm/s SSM CV FUJ I PACS LV EDV A4C 112.885 ml SSM CV FU JI PACS LVIDd 4.127 cm SSM CV FUJ I PACS RV-valdez basal diam 3.076 cm SSM CV FUJI PACS IVSd 2D 1.322 cm SSM CV FUJ I PACS RA area 19.499 cm SSM CV FUJI PACS LV biplane EF 64.104 % SSM CV FUJI PACS MV A pk valeriano 99.243 cm/s SSM CV F UJI PACS LVPWd 1.277 cm SSM CV FUJ I PACS MV E pk valeriano 61.621 cm/s SSM CV F UJI PACS LV ESV A4C 41.352 ml SSM CV FU JI PACS PV VTI 19.256 cm SSM CV FUJ I PACS MV E' lateral valeriano 9.784 cm/s SS M CV FUJI PACS LVOT diam 2.166 cm SSM CV FUJ I PACS LV EDV A2C 126.6 ml SSM CV FU JI PACS Sinus of Valsalva 3.8 cm SS M CV FUJI PACS AV area index 1.795 cm /m SSM CV FUJI PACS Dimensionless Index 0.961 unitless SSM CV FUJI PACS Myocardial strain charge 2 unitless SSM CV FUJI PACS Anatomical Region Laterality Modality Ultrasound 03/02/2025 11:3 3 AM CDT Narrative 03/02/2025 1:24 PM CDT Summary * The left ventricle is normal in size, with normal systolic function and an estimated ejection fraction of 64 % by biplane method of disks. Left ventricular wall motion is normal. * The left ventricular diastolic function is normal. * The mitral valve is displaying restricted posterior leaflet motion with calcification. There is an echodensity 10 mm x 12 mm attached to the anterior mitral leaflet, possible differential includes vegetation, torn chordae. Need to correlate clinically and SINTIA if clinical suspicion of endocarditis. * There is mild tricuspid valve regurgitation. * There is mild mitral valve regurgitation. * The pulmonary artery systolic pressure is normal, 27 mmHg. 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 * An Ultrasound Enhancing Agent (UEA) was utilized to enhance endocardial definition, opacify the left ventricle and further assess left ventricular function and wall motion. Staff Referring Physician: Pramod Torres Ordering Provider: Pramod Torres Attending Physician: Pramod Torres Interior Design Instructor: Marian Patel Left Ventricle The left ventricle is normal in size. Left ventricular systolic function is normal with an estimated ejection fraction of 64 % by biplane method of disks. The left ventricular mass is normal. Left ventricular segmental wall motion is normal. The left ventricular diastolic function is normal. Right Ventricle The right ventricle is normal in size. Right ventricular systolic function is normal. Left Atrium The left atrium is normal in size. Right Atrium The right atrium is normal in size. Atrial Septum Intact interatrial septum visualized by 2D and color Doppler imaging. Aortic Valve The aortic valve is trileaflet. There is no aortic valve stenosis. There is no aortic valve regurgitation. Pulmonic Valve The pulmonic valve is not well visualized. There is no pulmonic regurgitation. There is no pulmonic valve stenosis. Mitral Valve The mitral valve is displaying restricted posterior leaflet motion with calcification. There is an echodensity 10 mm x 12 mm attached to the anterior mitral leaflet, possible differential includes vegetation, torn chordae. Need to correlate clinically and SINTIA if clinical suspicion of endocarditis. There is no mitral valve stenosis. There is mild mitral valve regurgitation. Tricuspid Valve The tricuspid valve is normal. There is mild tricuspid valve regurgitation. The pulmonary artery systolic pressure is normal, 27 mmHg. Inferior Vena Cava The inferior vena cava is normal in size (< 2.1 cm). There is > 50% collapse of the IVC upon inspiration with an estimated right atrial pressure of 5 mmHg. Pericardium/Pleural There is no pericardial effusion. Aorta The aortic root at the sinus of Valsalva is borderline dilated. The ascending aorta is normal in size. Measurements Left Ventricular Outflow Tract Name Value Normal LVOT 2D LVOT Diameter 2.2 cm LVOT Area 3.7 cm2 LVOT Doppler LVOT Peak Velocity 1.1 m/s LVOT Peak Gradient 4 mmHg LVOT Mean Velocity 57.40 cm/s LVOT Mean Gradient 2 mmHg LVOT VTI 19.2 cm LVOT VTI/AV VTI Ratio 1.0 LVOT Stroke Volume 71 ml LVOT Stroke Volume Index 36 ml/m2 35-58 LVOT CO 5.0 l/min LVOT CI 2.5 l/min/m2 Pulmonic Valve Name Value Normal PV Doppler PV Peak Velocity 1.1 m/s PV Peak Gradient 5 mmHg PV Mean Gradient 2 mmHg PV Accel Time 83.73 ms Mitral Valve Name Value Normal MV Doppler MV Peak Gradient 4 mmHg MV Mean Gradient 2 mmHg MV DI (VTI) 0.93 MV PHT 51 ms MV Area (PHT) 4.35 cm2 4.00-5.00 MV Area (Cont Eq VTI) 3.98 cm2 MV Diastolic Function MV E Peak Velocity 0.6 m/sec MV A Peak Velocity 1.0 m/sec MV E/A 0.6 MV Decel Time (PW) 186 ms MV Annular TDI MV Septal e' Velocity 8 cm/s >=8 MV E/e' (Septal) 7 <=8 MV Lateral e' Velocity 10 cm/s >=10 MV E/e' (Lateral) 6 <=8 MV e' Average 9 cm/s MV E/e' (Average) 7 Tricuspid Valve Name Value Normal TV Regurgitation Doppler TR Peak Velocity 2.3 m/s TR Peak Gradient 22 mmHg Estimated PAP/RSVP RA Pressure 5 mmHg <=5 PA Systolic Pressure 27 mmHg <35 RV Systolic Pressure 27 mmHg <36 TV Annular TDI TV Lateral Ashley s' Velocity 14 cm/s 10-19 Aorta Name Value Normal Ascending Aorta Sinus of Valsalva Diameter 3.8 cm 2.8-4.0 Sinus of Valsalva Index 1.9 cm/m2 1.3-2.1 Asc Ao Diameter 3.4 cm 2.2-3.8 Asc Ao Diameter Index 1.7 cm/m2 1.1-1.9 Aortic Valve Name Value Normal AV Doppler AV Peak Velocity 1.13 m/s AV Peak Gradient 5 mmHg AV Mean Gradient 3 mmHg AV VTI 20 cm AV Area (Cont Eq VTI) 3.54 cm2 >=2.00 AV Area (Cont Eq Valeriano) 3.51 cm2 AV DI (VTI) 0.96 AV DI (Valeriano) 0.95 AV Regurgitation 2D LVOT Area 3.68 cm2 Ventricles Name Value Normal LV Dimensions 2D/MM IVS Diastolic Thickness (2D) 1.3 cm 0.6-1.0 LVID Diastole (2D) 4.1 cm 4.2-5.8 LVPW Diastolic Thickness (2D) 1.3 cm 0.6-1.0 IVS Systolic Thickness (2D) 1.8 cm LVID Systole (2D) 2.7 cm 2.5-4.0 LVPW Systolic Thickness (2D) 1.8 cm LV Mass (2D Cubed) 202 g 88-224 LV Mass Index (2D Cubed) 102 g/m2 49-115 Relative Wall Thickness (2D) 0.62 <=0.42 LV Fractional Shortening/Ejection Fraction 2D/MM LV Fractional Shortening (2D) 35 % 25-43 LV EF (2D Teicholz) 65 % 52-72 LV Diastolic Volume (4C MOD) 113 ml LV EF (4C MOD) 63 % LV Diastolic Volume (2C MOD) 127 ml LV EF (2C MOD) 65 % LV Diastolic Volume (BP MOD) 120 ml 62-150 LV Diastolic Volume Index (BP MOD) 61 ml/m2 34-74 LV Systolic Volume (BP MOD) 43 ml 21-61 LV Systolic Volume Index (BP MOD) 22 ml/m2 11-31 LV EF (BP MOD) 64 % 52-72 LV Diastolic Length (4C) 9.2 cm LV Systolic Length (4C) 7.7 cm LV Stroke Volume (4C MOD) 72 ml RV Dimensions 2D/MM RVID Diastole (2D) 3.9 cm 2.5-3.5 RVID Systole (2D) 2.8 cm RV Basal Diastolic Dimension 3.1 cm 2.5-4.1 RV Diastolic Length (4C) 8.2 cm 5.9-8.3 TAPSE 2.1 cm >=1.7 Atria Name Value Normal LA Dimensions LA Dimension (2D) 4.0 cm 3.0-4.1 LA Dimen Index (2D) 2.0 cm/m2 RA Dimensions RA Area (4C) 19 cm2 <=18 RA Area (4C) Index 10 cm2/m2 Report Signatures Amended by Wally Ventura DR on 03/02/2025 01:49 PM Finalized by Wally Ventura DR on 03/02/2025 01:24 PM Procedure Note Wally Ventura MD - 03/02/2025 Summary * The left ventricle is normal in size, with normal systolic functionand an estimated ejection fraction of 64 % by biplane method of disks. Left ventricular wall motion is normal. * The left ventricular diastolic function is normal. * The mitral valve is displaying restricted posterior leaflet motionwith calcification. There is an echodensity 10 mm x 12 mm attached to theanterior mitral leaflet, possible differential includes vegetation, torn chordae.Need to correlate clinically and SINTIA if clinical suspicion of endocarditis. * There is mild tricuspid valve regurgitation. * There is mild mitral valve regurgitation. * The pulmonary artery systolic pressure is normal, 27 mmHg. Patient Info Name: Marshall Espinal Age: 64 years : 1960 Gender: Male Ht: 67 in Wt: 178 lb BSA: 1.97 m2 HR: 85 bpm BP: 119 / 76 mmHg Heart Rhythm: Sinus Rhythm Exam Date: 03/02/2025 11:33 AM Patient Status: I/P Study Site: [facility] Primary Location: [facility] Info Technical Quality: Adequate Exam Type: ECHO COMPLETE W CONTRAST Indications D73.3 - Abscess of spleen Procedure(s) * A complete 2D, color Doppler, spectral Doppler, and M-Modetransthoracic echocardiogram was performed. * An Ultrasound Enhancing Agent (UEA) was utilized to enhanceendocardial definition, opacify the left ventricle and further assess leftventricular function and wall motion. Staff Referring Physician: Pramod Torres Ordering Provider: Pramod Torres Attending Physician: Pramod Torres Interior Design Instructor: Marian Patel Left Ventricle The left ventricle is normal in size. Left ventricular systolic functionis normal with an estimated ejection fraction of 64 % by biplane method ofdisks. The left ventricular mass is normal. Left ventricular segmental wallmotion is normal. The left ventricular diastolic function is normal. Right Ventricle The right ventricle is normal in size. Right ventricular systolicfunction is normal. Left Atrium The left atrium is normal in size. Right Atrium The right atrium is normal in size. Atrial Septum Intact interatrial septum visualized by 2D and color Doppler imaging. Aortic Valve The aortic valve is trileaflet. There is no aortic valve stenosis. Thereis no aortic valve regurgitation. Pulmonic Valve The pulmonic valve is not well visualized. There is no pulmonic regurgitation. There is no pulmonic valve stenosis. Mitral Valve The mitral valve is displaying restricted posterior leaflet motionwith calcification. There is an echodensity 10 mm x 12 mm attached to theanterior mitral leaflet, possible differential includes vegetation, torn chordae.Need to correlate clinically and SINTIA if clinical suspicion of endocarditis.There is no mitral valve stenosis. There is mild mitral valve regurgitation. Tricuspid Valve The tricuspid valve is normal. There is mild tricuspid valveregurgitation. The pulmonary artery systolic pressure is normal, 27 mmHg. Inferior Vena Cava The inferior vena cava is normal in size (< 2.1 cm). There is > 50%collapse of the IVC upon inspiration with an estimated right atrial pressure of 5mmHg. Pericardium/Pleural There is no pericardial effusion. Aorta The aortic root at the sinus of Valsalva is borderline dilated. The ascending aorta is normal in size. Measurements Left Ventricular Outflow Tract Name Value Normal LVOT 2D LVOT Diameter 2.2 cm LVOT Area 3.7 cm2 LVOT Doppler LVOT Peak Velocity 1.1 m/s LVOT Peak Gradient 4 mmHg LVOT Mean Velocity 57.40 cm/s LVOT Mean Gradient 2 mmHg LVOT VTI 19.2 cm LVOT VTI/AV VTI Ratio 1.0 LVOT Stroke Volume 71 ml LVOT Stroke Volume Index 36 ml/m2 35-58 LVOT CO 5.0 l/min LVOT CI 2.5 l/min/m2 Pulmonic Valve Name Value Normal PV Doppler PV Peak Velocity 1.1 m/s PV Peak Gradient 5 mmHg PV Mean Gradient 2 mmHg PV Accel Time 83.73 ms Mitral Valve Name Value Normal MV Doppler MV Peak Gradient 4 mmHg MV Mean Gradient 2 mmHg MV DI (VTI) 0.93 MV PHT 51 ms MV Area (PHT) 4.35 cm2 4.00-5.00 MV Area (Cont Eq VTI) 3.98 cm2 MV Diastolic Function MV E Peak Velocity 0.6 m/sec MV A Peak Velocity 1.0 m/sec MV E/A 0.6 MV Decel Time (PW) 186 ms MV Annular TDI MV Septal e' Velocity 8 cm/s >=8 MV E/e' (Septal) 7 <=8 MV Lateral e' Velocity 10 cm/s >=10 MV E/e' (Lateral) 6 <=8 MV e' Average 9 cm/s MV E/e' (Average) 7 Tricuspid Valve Name Value Normal TV Regurgitation Doppler TR Peak Velocity 2.3 m/s TR Peak Gradient 22 mmHg Estimated PAP/RSVP RA Pressure 5 mmHg <=5 PA Systolic Pressure 27 mmHg <35 RV Systolic Pressure 27 mmHg <36 TV Annular TDI TV Lateral Ashley s' Velocity 14 cm/s 10-19 Aorta Name Value Normal Ascending Aorta Sinus of Valsalva Diameter 3.8 cm 2.8-4.0 Sinus of Valsalva Index 1.9 cm/m2 1.3-2.1 Asc Ao Diameter 3.4 cm 2.2-3.8 Asc Ao Diameter Index 1.7 cm/m2 1.1-1.9 Aortic Valve Name Value Normal AV Doppler AV Peak Velocity 1.13 m/s AV Peak Gradient 5 mmHg AV Mean Gradient 3 mmHg AV VTI 20 cm AV Area (Cont Eq VTI) 3.54 cm2 >=2.00 AV Area (Cont Eq Valeriano) 3.51 cm2 AV DI (VTI) 0.96 AV DI (Valeriano) 0.95 AV Regurgitation 2D LVOT Area 3.68 cm2 Ventricles Name Value Normal LV Dimensions 2D/MM IVS Diastolic Thickness (2D) 1.3 cm 0.6-1.0 LVID Diastole (2D) 4.1 cm 4.2-5.8 LVPW Diastolic Thickness (2D) 1.3 cm 0.6-1.0 IVS Systolic Thickness (2D) 1.8 cm LVID Systole (2D) 2.7 cm 2.5-4.0 LVPW Systolic Thickness (2D) 1.8 cm LV Mass (2D Cubed) 202 g 88-224 LV Mass Index (2D Cubed) 102 g/m2 49-115 Relative Wall Thickness (2D) 0.62 <=0.42 LV Fractional Shortening/Ejection Fraction 2D/MM LV Fractional Shortening (2D) 35 % 25-43 LV EF (2D Teicholz) 65 % 52-72 LV Diastolic Volume (4C MOD) 113 ml LV EF (4C MOD) 63 % LV Diastolic Volume (2C MOD) 127 ml LV EF (2C MOD) 65 % LV Diastolic Volume (BP MOD) 120 ml 62-150 LV Diastolic Volume Index (BP MOD) 61 ml/m2 34-74 LV Systolic Volume (BP MOD) 43 ml 21-61 LV Systolic Volume Index (BP MOD) 22 ml/m2 11-31 LV EF (BP MOD) 64 % 52-72 LV Diastolic Length (4C) 9.2 cm LV Systolic Length (4C) 7.7 cm LV Stroke Volume (4C MOD) 72 ml RV Dimensions 2D/MM RVID Diastole (2D) 3.9 cm 2.5-3.5 RVID Systole (2D) 2.8 cm RV Basal Diastolic Dimension 3.1 cm 2.5-4.1 RV Diastolic Length (4C) 8.2 cm 5.9-8.3 TAPSE 2.1 cm >=1.7 Atria Name Value Normal LA Dimensions LA Dimension (2D) 4.0 cm 3.0-4.1 LA Dimen Index (2D) 2.0 cm/m2 RA Dimensions RA Area (4C) 19 cm2 <=18 RA Area (4C) Index 10 cm2/m2 Report Signatures Amended by Wally Ventura DR on 03/02/2025 01:49 PM Finalized by Wally Ventura DR on 03/02/2025 01:24 PM us Pramod Torres DO ECHO CUPID Edited Result - Final * (ABNORMAL) URINALYSIS REFLEX MICROSCOPIC REFLEX CULTURE (03/02/2025 10:44 AM CDT) Color UA Yellow Yellow, Straw 03/02/2025 11:02 AM CDT [facility] Clarity UA Clear Clear 03/02/2025 11:02 AM [facility] Glucose UA Normal Normal 03/02/2025 11:02 AM [facility] Bilirubin UA Negative Negative 03/02/2025 11:02 AM [facility] Ketone UA Trace(A) Negative 03/02/2025 11:02 AM [facility] Specific [place]vine UA 1.017 1.005 - 1.030 03/02/2025 11:02 AM [facility] Blood UA Trace(A) Negative 03/02/2025 11:02 AM [facility] pH UA 5.5 5.0 - 8.0 03/02/2025 11:02 AM [facility] Protein UA 1+(A) Negative 03/02/2025 11:02 AM [facility] Urobilinogen UA Normal Normal mg/dL 03/02/2025 11:02 AM [facility] Nitrite UA Negative Negative 03/02/2025 11:02 AM [facility] Leukocyte Esterase UA Negative Negative 03/02/2025 11:02 AM [facility] RBC UA 3-5 0 - 5 # /hpf 03/02/2025 11:02 AM [facility] WBC UA 6-10(A) 0 - 5 # /hpf 03/02/2025 11:02 AM [facility] Bacteria UA None Seen None Seen 03/02/2025 11:02 AM [facility] Squamous Epithelial Cells 0-2 0 - 5 /hpf 03/02/2025 11:02 AM [facility] Reflex Status Culture not indicated 03/02/2025 11:02 AM [facility] Urine URINE SPECIMEN OBTAINED BY CLEAN CATCH PROCEDURE / Unknown Collection / Unknown 03/02/2025 10:44 AM CDT 03/02/2025 10:48 AM [facility] us Pramod Torres DO LAB - URINALYSIS ORDERABLES Fi nal Result [facility] [address] [place] [address], [facility] [phone] * MRSA PCR (03/02/2025 8:47 AM CDT) [facility] MRSA DNA by PCR Not detected Not detected 03/02/2025 3:41 PM CDT [facility] MICROBIOLOGY Microbiology SPECIMEN FROM NASAL FOSSAE / Unknown Collection / Unknown 03/02/2025 8:47 AM CDT 03/02/2025 8:52 AM CDT Narrative [facility] MICROBIOLOGY - 03/02/2025 3:41 PM CDT Methicillin-resistant Staphylococcus aureus (MRSA) DNA is not detected (presumed not colonized with MRSA). us Shira Harris MD LAB - MICROBIOLOGY ORDERABLES Fi nal Result [facility] MICROBIOLOGY [address] [place] [address], [facility] [phone] * MONONUCLEOSIS SCREEN (03/02/2025 5:34 AM CDT) [facility] Mononucleosis Qualitative Negative Negative 03/02/2025 6:42 AM CDT [facility] Blood BLOOD SPECIMEN / Unknown Lab Venipuncture / Unknown 03/02/2025 5:34 AM CDT 03/02/2025 6:11 AM CDT us Shira Harris MD LAB - CHEMISTRY ORDERABLES Final Result Performing Organization Address City/[facility]/ZIP Co de Phone Number [address] [address], [facility] [phone] * PHOSPHORUS BLOOD (03/02/2025 5:34 AM CDT) [facility] Phosphorus 4.4 2.8 - 5.1 mg/dL 03/02/2025 6:41 AM CDT [facility] Blood BLOOD SPECIMEN / Unknown Lab Venipuncture / Unknown 03/02/2025 5:34 AM CDT 03/02/2025 6:10 AM CDT us Shira Harris MD LAB - CHEMISTRY ORDERABLES Final Result [address] [address] [phone] * MAGNESIUM BLOOD (03/02/2025 5:34 AM CDT) Pathologist [facility] Magnesium 2.0 1.6 - 2.6 mg/dL 03/02/2025 6:41 AM [facility] Blood BLOOD SPECIMEN / Unknown Lab Venipuncture / Unknown 03/02/2025 5:34 AM CDT 03/02/2025 6:10 AM CDT us Shira Harris MD LAB - CHEMISTRY ORDERABLES Final Result [facility] [address] [place] [address], [facility] [phone] * (ABNORMAL) COMPREHENSIVE METABOLIC PANEL (03/02/2025 5:34 AM CDT) Pathologist [facility] BUN 50(H) 7 - 26 mg/dL 03/02/2025 6:41 AM [facility] Creatinine 3.45(H) 0.71 - 1.16 mg/dL 03/02/2025 6:41 AM [facility] Sodium 137 136 - 145 mmol/L 03/02/2025 6:41 AM [facility] Potassium 4.2 3.5 - 4.5 mmol/L 03/02/2025 6:41 AM [facility] Chloride 109(H) 98 - 107 mmol/L 03/02/2025 6:41 AM [facility] CO2 20(L) 22 - 29 mmol/L 03/02/2025 6:41 AM [facility] Glucose 85 70 - 99 mg/dL 03/02/2025 6:41 AM [facility] Calcium 9.0 8.4 - 10.2 mg/dL 03/02/2025 6:41 AM [facility] Protein Total 7.6 6.0 - 8.3 g/dL 03/02/2025 6:41 AM [facility] Albumin 2.6(L) 3.4 - 5.0 g/dL 03/02/2025 6:41 AM [facility] Bilirubin Total 0.5 0.2 - 1.2 mg/dL 03/02/2025 6:41 AM [facility] Alkaline Phosphatase 218(H) 40 - 150 U/L 03/02/2025 6:41 AM [facility] ALT 13 5 - 55 U/L 03/02/2025 6:41 AM [facility] AST 14 5 - 34 U/L 03/02/2025 6:41 AM [facility] Anion Gap 8 6 - 16 03/02/2025 6:41 AM [facility] BUN/Creatinine Ratio 14 7 - 23 03/02/2025 6:41 AM [facility] Osmolality Calculated 297(H) 275 - 295 mOsm/kg 03/02/2025 6:41 AM [facility] Albumin/Globulin Ratio 0.5(L) 1.1 - 2.3 03/02/2025 6:41 AM [facility] eGFR by CKD-EPI 19(L) >=90 mL/min/1.7 3 m2 03/02/2025 6:41 AM [facility] Comment:Estimated Glomerular Filtration Rate (eGFR) calculated using the CKD-EPI Creatinine Equation (2020), per the National Kidney Foundation and [employer] Society [employer] Nephrology recommendations. Blood BLOOD SPECIMEN / Unknown Lab Venipuncture / Unknown 03/02/2025 5:34 AM CDT 03/02/2025 6:10 AM T Shira Harris MD LAB - CHEMISTRY ORDERABLES Final Result [facility] [address] [place] [address], [facility] [phone] * (ABNORMAL) CBC W AUTO DIFFERENTIAL (03/02/2025 5:34 AM CDT) WBC 11.4(H) 4.0 - 10.7 x10E9/L 03/02/2025 6:18 AM [facility] RBC Count 3.06(L) 4.30 - 5.80 x10E12/L 03/02/2025 6:18 AM [facility] Hemoglobin 8.4(L) 13.3 - 17.5 g/dL 03/02/2025 6:18 AM [facility] Hematocrit 26.6(L) 38.7 - 51.1 % 03/02/2025 6:18 AM [facility] MCV 86.9 80.0 - 98.0 fL 03/02/2025 6:18 AM [facility] MCH 27.5 26.7 - 33.6 pg 03/02/2025 6:18 AM [facility] MCHC 31.6(L) 31.7 - 36.3 g/dL 03/02/2025 6:18 AM [facility] RDW-CV 14.6 11.3 - 14.8 % 03/02/2025 6:18 AM [facility] Platelet Count 410 150 - 420 x10E9/L 03/02/2025 6:18 AM [facility] MPV 9.6 7.8 - 11.4 fL 03/02/2025 6:18 AM [facility] Neutrophil % 70.0 41.0 - 74.0 % 03/02/2025 6:18 AM [facility] Lymphocyte % 15.9(L) 17.0 - 47.0 % 03/02/2025 6:18 AM [facility] Monocyte % 9.2 3.0 - 11.0 % 03/02/2025 6:18 AM [facility] Eosinophil % 3.6 0.0 - 7.0 % 03/02/2025 6:18 AM [facility] Basophil % 0.4 0.0 - 1.6 % 03/02/2025 6:18 AM [facility] Immature Granulocytes % 0.9 0.0 - 1.0 % 03/02/2025 6:18 AM [facility] Neutrophil Absolute 8.00(H) 1.60 - 7.50 x10E9/L 03/02/2025 6:18 AM [facility] Lymphocyte Absolute 1.82 1.00 - 4.40 x10E9/L 03/02/2025 6:18 AM [facility] Monocyte Absolute 1.05(H) 0.15 - 1.00 x10E9/L 03/02/2025 6:18 AM CDT [facility] Eosinophil Absolute 0.41 0.00 - 0.60 x10E9/L 03/02/2025 6:18 AM CDT [facility] Basophil Absolute 0.04 0.00 - 0.13 x10E9/L 03/02/2025 6:18 AM CDT [facility] Blood BLOOD SPECIMEN / Unknown Lab Venipuncture / Unknown 03/02/2025 5:34 AM CDT 03/02/2025 6:12 AM CDT us Shira Harris MD LAB - HEMATOLOGY ORDERABLES Janet thorpe Result [facility] [address] [place] [address], [facility] [phone] * (ABNORMAL) BLOOD CULTURE ID PANEL (03/02/2025 5:33 AM CDT) [facility] Enterococcus faecalis Detected(A) Not detected 03/03/2025 10:33 AM CDT [facility] Van A/B Vancomycin Resistance Not detected Not detected 03/03/2025 10:33 AM CDT [facility] Comment:Results indicate van comycin-susceptible Enterococcus faecalis. Nasir/B not detected. Blood PERIPHERAL BLOOD / Unknown Lab Venipuncture / Unknown 03/02/2025 5:33 AM CDT 03/02/2025 6:06 AM CDT Narrative [facility] - 03/03/2025 10:33 AM CDT Blood Culture ID Panel performed by [employer] multiplex PCR. The Test panel includes: Gram Positive Bacteria: Enterococcus faecalis, Enterococcus faecium, Listeria monocytogenes, Staphylococcus (genus), Staphylococcus aureus, Staphylococcus epidermidis, Staphylococcus lugdunensis, Streptococcus (genus), Streptococcus agalactiae (Group B), Streptococcus pneumoniae, Streptococcus pyogenes (Group A). Gram Negative Bacteria: Acinetobacter baumannii complex, Bacteroides fragilis, Haemophilus influenzae, Neisseria meningitidis (encapsulated), Pseudomonas aeruginosa, Stenotrophomonas maltophilia, Enterobacterales (formerly Enterobacteriaceae family), Enterobacter cloacae complex, Escherichia coli, Klebsiella (formerly Enterobacter) aerogenes, Klebsiella oxytoca, Klebsiella pneumoniae group, Proteus (genus), Salmonella species, Serratia marcescens. YEAST: Yesi albicans, Yesi auris, Yesi glabrata, Yesi krusei, Yesi parapsilosis, Yesi tropicalis, Cryptococcus neoformans/gattii. Antimicrobial Resistance Genes: CTX-M (extended-spectrum beta-lactamase), IMP (metallo beta-lactamase), KPC (carbapenemase), mcr-1 (colistin resistance determinant) mecA/C (methicillin-resistance), mecA/C and MREJ (methicillin-resistance - MRSA), NDM ([place] rziyugc-lnva-wcmrwdyrd), OXA-48-like (oxacillinase beta-lactamase),Nasir/B (vancomycin-resistance), VIM (Sangeeta Intergrom-Encoded Metallo beta-lactamase). us Shira Harris MD LAB - MICROBIOLOGY ORDERABLES Fi nal Result [facility] MICROBIOLOGY [address] [place] [address], [facility] [phone] * (ABNORMAL) CULTURE BLOOD (03/02/2025 5:33 AM CDT) Culture Growth of Enterococcus faecalis(AA) LAVELLE 03/07/2025 10:38 AM CDT [facility]CROBIOLOGY Gram Stain Gram-positive cocci pairs and chains(AA) 03/07/2025 10:38 AM CDT [facility]CROBI[facility] Blood PERIPHERAL BLOOD / Unknown Lab Venipuncture / Unknown 03/02/2025 5:33 AM CDT 03/02/2025 6:06 AM CDT Narrative [facility] MICROBIOLOGY - 03/07/2025 10:38 AM CDT Positive at 22 Hours 44 Minutes Organism Antibiotic Method Susceptibility Enterococcus faecalis Ampicillin LAVELLE <=2 ug/mL: Susceptible Enterococcus faecalis Gentamicin 500 LAVELLE SYN-S ug/mL: Susceptible Enterococcus faecalis Vancomycin LAVELLE 2 ug/mL: Susceptible Comment: Streptomycin Synergy susceptible predicts synergy between ampicillin, penicillin, or vancomycin plus streptomycin when isolates are susceptible to these agents. Combination therapy with ampicillin, penicillin or vancomycin(for susceptible strains) plus an aminoglycoside is usually indicated for serious enterococcal infections such as endocarditis, UNLESS high-level resistance to both gentamicin and streptomycin is documented. Gentamicin Synergy susceptible predicts synergy between ampicillin, penicillin, or vancomycin plus gentamicin when isolates are susceptible to these agents. Combination therapy with ampicillin, penicillin, or vancomycin (for susceptible strains) plus an aminoglycoside is usually indicated for serious enterococcal infections such as endocarditis UNLESS high-level resistance to both gentamicin and streptomycin is documented. Invasive enterococcal infections require combination therapy with susceptible agents. ID consultation is strongly recommended where available. Shira Harris MD LAB - MICROBIOLOGY ORDERABLES Fi nal Result Performing Organization Address [facility] de Phone Number [facility] [address] [facility] [place] [address], [facility] [phone] * (ABNORMAL) CULTURE BLOOD (03/02/2025 5:33 AM CDT) Pathologist [facility] Culture Growth of Enterococcus faecalis(AA) 03/07/2025 10:38 AM CDT [facility] MICROBIOLOGY Gram Stain Gram-positive cocci pairs and chains(AA) 03/07/2025 10:38 AM CDT [facility]CROBIOLOG[facility] Blood PERIPHERAL BLOOD / Unknown Lab Venipuncture / Unknown 03/02/2025 5:33 AM CDT 03/02/2025 6:06 AM CDT [facility] MICROBIOLOGY - 03/07/2025 10:38 AM CDT Positive at 28 Hours 19 Minutes Refer to previously reported susceptibility testing, specimen number:[id number] Shira Harris MD LAB - MICROBIOLOGY ORDERABLES Fi nal Result Performing Organization Address [facility] de Phone Number [facility] [address] [facility] [place] [address], [facility] [phone] * VANCOMYCIN LEVEL RANDOM (03/02/2025 5:33 AM CDT) Pathologist [facility] Vancomycin Random 24.8 Therapeutic Ranges not established for random specimens ug/mL 03/02/2025 6:25 AM CDT [facility] Blood BLOOD SPECIMEN / Unknown Lab Venipuncture / Unknown 03/02/2025 5:33 AM CDT 03/02/2025 6:05 AM CDT [facility] - 03/02/2025 6:25 AM CDT See institution protocol. 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 Bacteremia CKD (chronic kidney disease) stage 5, GFR less than 15 ml/min (HCC) Chronic kidney disease, Stage V Mitral valve insufficiency, unspecified etiology Chronic obstructive pulmonary disease, unspecified COPD type (HCC) Enterococcal bacteremia Bacteremia S/P MVR (mitral valve replacement) Heart valve replaced by other means Diverticulitis Diverticulitis of colon (without mention of hemorrhage) HTN (hypertension) Unspecified essential hypertension Diverticulosis Diverticulosis of colon (without mention of hemorrhage) Enterococcal bacteremia Bacteremia Mitral valve vegetation (HCC) Acute and subacute bacterial endocarditis COPD (chronic obstructive pulmonary disease) (HCC) Chronic airway obstruction, not elsewhere classified Endocarditis, suspected Observation for suspected cardiovascular disease CKD (chronic kidney disease) stage 5, GFR less than 15 ml/min (HCC) Chronic kidney disease, Stage V Endocarditis, suspected Observation for suspected cardiovascular disease Mitral valve vegetation (HCC) Acute and subacute bacterial endocarditis * Assessment & Plan Note - Dennis Delatorre MD - 03/15/2025 2:06 PM CDTAssociated Problem(s): Abscess of spleen - SINTIA came back for large vegetation on mitral valve with severe mitral regurgitation. Per SINTIA, CTSrecommends multi team consult for approved recs to follow on surgery - 03/09 Dental surgery completed, 9 teeth were pulled. - Cardiology following, left cardiac cath performed 03/09 - Nephrology consulted, pt is safe to proceed with MV surgery - PT/OT 03/12 evaluated for CTS Pre-OP and signed off - 03/13/25 UA 1+ protein, 1+ glucose, otherwise unremarkable (ordered for CTS pre-OP) - WBC 03/14 10.9 from 03/13 9.6 PLAN: - Ampicillin 2 g IV q8h per ID recs - Ceftriaxone 2 g IV q12h per ID recs - NPO 03/15 at midnight (03/15 0000) - CTS scheduled surgery today 03/15 - Incentive spirometry for prevention of pneumonia - Consult placed with pain management for perioperative pain management per CTS * Assessment & Plan Note - Dennis Delatorre MD - 03/15/2025 2:06 PM CDTAssociated Problem(s): Diverticulosis - SINTIA came back for large vegetation on mitral valve with severe mitral regurgitation. Per SINTIA, CTSrecommends multi team consult for approved recs to follow on surgery - 03/09 Dental surgery completed, 9 teeth were pulled. - Cardiology following, left cardiac cath performed 03/09 - Nephrology consulted, pt is safe to proceed with MV surgery - PT/OT 03/12 evaluated for CTS Pre-OP and signed off - 03/13/25 UA 1+ protein, 1+ glucose, otherwise unremarkable (ordered for CTS pre-OP) - WBC 03/14 10.9 from 03/13 9.6 PLAN: - Ampicillin 2 g IV q8h per ID recs - Ceftriaxone 2 g IV q12h per ID recs - NPO 03/15 at midnight (03/15 0000) - CTS scheduled surgery today 03/15 - Incentive spirometry for prevention of pneumonia - Consult placed with pain management for perioperative pain management per CTS * Assessment & Plan Note - Dennis Delatorre MD - 03/15/2025 2:06 PM CDTAssociated Problem(s): Enterococcal bacteremia - SINTIA came back for large vegetation on mitral valve with severe mitral regurgitation. Per SINTIA, CTSrecommends multi team consult for approved recs to follow on surgery - 03/09 Dental surgery completed, 9 teeth were pulled. - Cardiology following, left cardiac cath performed 03/09 - Nephrology consulted, pt is safe to proceed with MV surgery - PT/OT 03/12 evaluated for CTS Pre-OP and signed off - 03/13/25 UA 1+ protein, 1+ glucose, otherwise unremarkable (ordered for CTS pre-OP) - WBC 03/14 10.9 from 03/13 9.6 PLAN: - Ampicillin 2 g IV q8h per ID recs - Ceftriaxone 2 g IV q12h per ID recs - NPO 03/15 at midnight (03/15 0000) - CTS scheduled surgery today 03/15 - Incentive spirometry for prevention of pneumonia - Consult placed with pain management for perioperative pain management per CTS * Assessment & Plan Note - Dennis Delatorre MD - 03/15/2025 2:06 PM CDTAssociated Problem(s): Mitral valve vegetation (HCC) - SINTIA came back for large vegetation on mitral valve with severe mitral regurgitation. Per SINTIA, CTSrecommends multi team consult for approved recs to follow on surgery - 03/09 Dental surgery completed, 9 teeth were pulled. - Cardiology following, left cardiac cath performed 03/09 - Nephrology consulted, pt is safe to proceed with MV surgery - PT/OT 03/12 evaluated for CTS Pre-OP and signed off - 03/13/25 UA 1+ protein, 1+ glucose, otherwise unremarkable (ordered for CTS pre-OP) - WBC 03/14 10.9 from 03/13 9.6 PLAN: - Ampicillin 2 g IV q8h per ID recs - Ceftriaxone 2 g IV q12h per ID recs - NPO 03/15 at midnight (03/15 0000) - CTS scheduled surgery today 03/15 - Incentive spirometry for prevention of pneumonia - Consult placed with pain management for perioperative pain management per CTS * Assessment & Plan Note - Dennis Delatorre MD - 03/15/2025 2:06 PM CDTAssociated Problem(s): Endocarditis, suspected - SINTIA came back for large vegetation on mitral valve with severe mitral regurgitation. Per ISNTIA, CTSrecommends multi team consult for approved recs to follow on surgery - 03/09 Dental surgery completed, 9 teeth were pulled. - Cardiology following, left cardiac cath performed 03/09 - Nephrology consulted, pt is safe to proceed with MV surgery - PT/OT 03/12 evaluated for CTS Pre-OP and signed off - 03/13/25 UA 1+ protein, 1+ glucose, otherwise unremarkable (ordered for CTS pre-OP) - WBC 03/14 10.9 from 03/13 9.6 PLAN: - Ampicillin 2 g IV q8h per ID recs - Ceftriaxone 2 g IV q12h per ID recs - NPO 03/15 at midnight (03/15 0000) - CTS scheduled surgery today 03/15 - Incentive spirometry for prevention of pneumonia - Consult placed with pain management for perioperative pain management per CTS * Assessment & Plan Note - Dennis Delatorre MD - 03/15/2025 2:06 PM CDTAssociated Problem(s): HTN (hypertension) - Home Rx: Metoprolol succinate 25 mg PO QHS, amlodipine 5 mg PO QD - BP stable PLAN: - Continue metoprolol succinate 25 - amLODIPine (Norvasc) tablet 5 mg * Assessment & Plan Note - Dennis Delatorre MD - 03/15/2025 2:06 PM CDTAssociated Problem(s): COPD (chronic obstructive pulmonary disease) (HCC) - Home meds include Trelegy, fluticasone propionate PLAN: - Incruse and symbicort while in-patient * Assessment & Plan Note - Dennis Delatorre MD - 03/15/2025 2:06 PM CDTAssociated Problem(s): CKD (chronic kidney disease) stage 5, GFR less than 15 ml/min ([facility]) Cr 03/14 2.89; Range: 2.78-3.62 PLAN: - Avoid nephrotoxic agents and continue tight control of blood pressures MAP > 65 - Nephrology consulted, pt should proceed with cath and MV surgery - Start FeSo4 PO per nephrology - Daily RFP - Hemodialysis line to be placed in OR per CTS - Nephrology will reevaluate for dialysis post-CTS procedure. * Assessment & Plan Note - Dennis Delatorre MD - 03/14/2025 6:44 PM CDTAssociated Problem(s): Abscess of spleen - SINTIA came back for large vegetation on mitral valve with severe mitral regurgitation. Per SINTIA, CTSrecommends multi team consult for approved recs to follow on surgery - 03/09 Dental surgery completed, 9 teeth were pulled. - Cardiology following, left cardiac cath performed 03/09 - Nephrology consulted, pt is safe to proceed with MV surgery - PT/OT 03/12 evaluated for CTS Pre-OP and signed off - 03/13/25 UA 1+ protein, 1+ glucose, otherwise unremarkable (ordered for CTS pre-OP) - WBC 03/14 10.9 from 03/13 9.6 PLAN: - Ampicillin 2 g IV q8h per ID recs - Ceftriaxone 2 g IV q12h per ID recs - NPO 03/15 at midnight (03/15 0000) - CTS scheduled surgery 03/15 - Incentive spirometry for prevention of pneumonia - Placed consult for pain management for perioperative pain management per CTS note from 03/13 -- Will call CTS 03/15 AM to discuss * Assessment & Plan Note - Dennis Delatorre MD - 03/14/2025 6:44 PM CDTAssociated Problem(s): Diverticulosis - SINTIA came back for large vegetation on mitral valve with severe mitral regurgitation. Per SINITA, CTSrecommengwen multi team consult for approved recs to follow on surgery - 03/09 Dental surgery completed, 9 teeth were pulled. - Cardiology following, left cardiac cath performed 03/09 - Nephrology consulted, pt is safe to proceed with MV surgery - PT/OT 03/12 evaluated for CTS Pre-OP and signed off - 03/13/25 UA 1+ protein, 1+ glucose, otherwise unremarkable (ordered for CTS pre-OP) - WBC 03/14 10.9 from 03/13 9.6 PLAN: - Ampicillin 2 g IV q8h per ID recs - Ceftriaxone 2 g IV q12h per ID recs - NPO 03/15 at midnight (03/15 0000) - CTS scheduled surgery 03/15 - Incentive spirometry for prevention of pneumonia - Placed consult for pain management for perioperative pain management per CTS note from 03/13 -- Will call CTS 03/15 AM to discuss * Assessment & Plan Note - Dennis Delatorre MD - 03/14/2025 6:44 PM CDTAssociated Problem(s): Enterococcal bacteremia - SINTIA came back for large vegetation on mitral valve with severe mitral regurgitation. Per SINTIA, CTSrecommends multi team consult for approved recs to follow on surgery - 03/09 Dental surgery completed, 9 teeth were pulled. - Cardiology following, left cardiac cath performed 03/09 - Nephrology consulted, pt is safe to proceed with MV surgery - PT/OT 03/12 evaluated for CTS Pre-OP and signed off - 03/13/25 UA 1+ protein, 1+ glucose, otherwise unremarkable (ordered for CTS pre-OP) - WBC 03/14 10.9 from 03/13 9.6 PLAN: - Ampicillin 2 g IV q8h per ID recs - Ceftriaxone 2 g IV q12h per ID recs - NPO 03/15 at midnight (03/15 0000) - CTS scheduled surgery 03/15 - Incentive spirometry for prevention of pneumonia - Placed consult for pain management for perioperative pain management per CTS note from 03/13 -- Will call CTS 03/15 AM to discuss * Assessment & Plan Note - Dennis Delatorre MD - 03/14/2025 6:44 PM CDTAssociated Problem(s): Mitral valve vegetation (HCC) - SINTIA came back for large vegetation on mitral valve with severe mitral regurgitation. Per SINTIA, CTSrecommends multi team consult for approved recs to follow on surgery - 03/09 Dental surgery completed, 9 teeth were pulled. - Cardiology following, left cardiac cath performed 03/09 - Nephrology consulted, pt is safe to proceed with MV surgery - PT/OT 03/12 evaluated for CTS Pre-OP and signed off - 03/13/25 UA 1+ protein, 1+ glucose, otherwise unremarkable (ordered for CTS pre-OP) - WBC 03/14 10.9 from 03/13 9.6 PLAN: - Ampicillin 2 g IV q8h per ID recs - Ceftriaxone 2 g IV q12h per ID recs - NPO 03/15 at midnight (03/15 0000) - CTS scheduled surgery 03/15 - Incentive spirometry for prevention of pneumonia - Placed consult for pain management for perioperative pain management per CTS note from 03/13 -- Will call CTS 03/15 AM to discuss * Assessment & Plan Note - Dennis Delatorre MD - 03/14/2025 6:44 PM CDTAssociated Problem(s): Endocarditis, suspected - SINTIA came back for large vegetation on mitral valve with severe mitral regurgitation. Per SINTIA, CTSrecommends multi team consult for approved recs to follow on surgery - 03/09 Dental surgery completed, 9 teeth were pulled. - Cardiology following, left cardiac cath performed 03/09 - Nephrology consulted, pt is safe to proceed with MV surgery - PT/OT 03/12 evaluated for CTS Pre-OP and signed off - 03/13/25 UA 1+ protein, 1+ glucose, otherwise unremarkable (ordered for CTS pre-OP) - WBC 03/14 10.9 from 03/13 9.6 PLAN: - Ampicillin 2 g IV q8h per ID recs - Ceftriaxone 2 g IV q12h per ID recs - NPO 03/15 at midnight (03/15 0000) - CTS scheduled surgery 03/15 - Incentive spirometry for prevention of pneumonia - Placed consult for pain management for perioperative pain management per CTS note from 03/13 -- Will call CTS 03/15 AM to discuss * Assessment & Plan Note - Dennis Delatorre MD - 03/14/2025 6:44 PM CDTAssociated Problem(s): HTN (hypertension) - Home Rx: Metoprolol succinate 25 mg PO QHS, amlodipine 5 mg PO QD - BP stable PLAN: - Continue metoprolol succinate 25 - amLODIPine (Norvasc) tablet 5 mg * Assessment & Plan Note - Dennis Delatorre MD - 03/14/2025 6:44 PM CDTAssociated Problem(s): COPD (chronic obstructive pulmonary disease) ([facility]) - Home meds include Trelegy, fluticasone propionate PLAN: - Incruse and symbicort while in-patient * Assessment & Plan Note - Dennis Delatorre MD - 03/14/2025 6:44 PM CDTAssociated Problem(s): CKD (chronic kidney disease) stage 5, GFR less than 15 ml/min ([facility]) Cr 03/14 2.89; Range: 2.78-3.62 PLAN: - Avoid nephrotoxic agents and continue tight control of blood pressures MAP > 65 - Nephrology consulted, pt should proceed with cath and MV surgery - Start FeSo4 PO per nephrology - Daily RFP - Hemodialysis line to be placed in OR per CTS - Nephrology will reevaluate for dialysis post-CTS procedure. * Assessment & Plan Note - Dennis Delatorre MD - 03/13/2025 10:12 AM CDTAssociated Problem(s): Abscess of spleen - SINTIA came back for large vegetation on mitral valve with severe mitral regurgitation. Per SINTIA, CTSrecommends multi team consult for approved recs to follow on surgery - 03/09 Dental surgery completed, 9 teeth were pulled. - Cardiology following, left cardiac cath performed 03/09 - Nephrology consulted, pt is safe to proceed with MV surgery - PT/OT 03/12 evaluated for CTS Pre-OP and signed off PLAN: - Ampicillin 2 g IV q8h per ID recs - Ceftriaxone 2 g IV q12h per ID recs - CTS scheduled surgery 03/15 - Incentive spirometry for prevention of pneumonia * Assessment & Plan Note - Dennis Delatorre MD - 03/13/2025 10:12 AM CDTAssociated Problem(s): Diverticulosis - SINTIA came back for large vegetation on mitral valve with severe mitral regurgitation. Per SINTIA, CTSrecommends multi team consult for approved recs to follow on surgery - 03/09 Dental surgery completed, 9 teeth were pulled. - Cardiology following, left cardiac cath performed 03/09 - Nephrology consulted, pt is safe to proceed with MV surgery - PT/OT 03/12 evaluated for CTS Pre-OP and signed off PLAN: - Ampicillin 2 g IV q8h per ID recs - Ceftriaxone 2 g IV q12h per ID recs - CTS scheduled surgery 03/15 - Incentive spirometry for prevention of pneumonia * Assessment & Plan Note - Dennis Delatorre MD - 03/13/2025 10:12 AM CDTAssociated Problem(s): Enterococcal bacteremia - SINTIA came back for large vegetation on mitral valve with severe mitral regurgitation. Per SINTIA, CTSrecommends multi team consult for approved recs to follow on surgery - 03/09 Dental surgery completed, 9 teeth were pulled. - Cardiology following, left cardiac cath performed 03/09 - Nephrology consulted, pt is safe to proceed with MV surgery - PT/OT 03/12 evaluated for CTS Pre-OP and signed off PLAN: - Ampicillin 2 g IV q8h per ID recs - Ceftriaxone 2 g IV q12h per ID recs - CTS scheduled surgery 03/15 - Incentive spirometry for prevention of pneumonia * Assessment & Plan Note - Dennis Delatorre MD - 03/13/2025 10:12 AM CDTAssociated Problem(s): Mitral valve vegetation (HCC) - SINTIA came back for large vegetation on mitral valve with severe mitral regurgitation. Per SINTIA, CTSrecommends multi team consult for approved recs to follow on surgery - 03/09 Dental surgery completed, 9 teeth were pulled. - Cardiology following, left cardiac cath performed 03/09 - Nephrology consulted, pt is safe to proceed with MV surgery - PT/OT 03/12 evaluated for CTS Pre-OP and signed off PLAN: - Ampicillin 2 g IV q8h per ID recs - Ceftriaxone 2 g IV q12h per ID recs - CTS scheduled surgery 03/15 - Incentive spirometry for prevention of pneumonia * Assessment & Plan Note - Dennis Delatorre MD - 03/13/2025 10:12 AM CDTAssociated Problem(s): Endocarditis, suspected - SINTIA came back for large vegetation on mitral valve with severe mitral regurgitation. Per SINTIA, CTSrecommaurice multi team consult for approved recs to follow on surgery - 03/09 Dental surgery completed, 9 teeth were pulled. - Cardiology following, left cardiac cath performed 03/09 - Nephrology consulted, pt is safe to proceed with MV surgery - PT/OT 03/12 evaluated for CTS Pre-OP and signed off PLAN: - Ampicillin 2 g IV q8h per ID recs - Ceftriaxone 2 g IV q12h per ID recs - CTS scheduled surgery 03/15 - Incentive spirometry for prevention of pneumonia * Assessment & Plan Note - Dennis Delatorre MD - 03/13/2025 8:02 AM CDTAssociated Problem(s): Diverticulosis - SINTIA came back for large vegetation on mitral valve with severe mitral regurgitation. Per SINTIA, CTSrecommends multi team consult for approved recs to follow on surgery - 03/09 Dental surgery completed, 9 teeth were pulled. - Cardiology following, left cardiac cath performed 03/09 PLAN: - Ampicillin 2 g IV q8h per ID recs - Ceftriaxone 2 g IV q12h per ID recs - CTS scheduled surgery 03/15 - Nephrology consulted, pt is safe to proceed with MV surgery - Incentive spirometry for prevention of pneumonia - PT/OT consulted for CTS Pre-OP evaluation - F/u labs 03/13 am * Assessment & Plan Note - Dennis Delatorre MD - 03/13/2025 8:02 AM CDTAssociated Problem(s): Enterococcal bacteremia - SINTIA came back for large vegetation on mitral valve with severe mitral regurgitation. Per SINTIA, CTSrecommends multi team consult for approved recs to follow on surgery - 03/09 Dental surgery completed, 9 teeth were pulled. - Cardiology following, left cardiac cath performed 03/09 PLAN: - Ampicillin 2 g IV q8h per ID recs - Ceftriaxone 2 g IV q12h per ID recs - CTS scheduled surgery 03/15 - Nephrology consulted, pt is safe to proceed with MV surgery - Incentive spirometry for prevention of pneumonia - PT/OT consulted for CTS Pre-OP evaluation - F/u labs 03/13 am * Assessment & Plan Note - Dennis Delatorre MD - 03/13/2025 8:02 AM CDTAssociated Problem(s): Mitral valve vegetation (HCC) - SINTIA came back for large vegetation on mitral valve with severe mitral regurgitation. Per SINTIA, CTSrecommends multi team consult for approved recs to follow on surgery - 03/09 Dental surgery completed, 9 teeth were pulled. - Cardiology following, left cardiac cath performed 03/09 PLAN: - Ampicillin 2 g IV q8h per ID recs - Ceftriaxone 2 g IV q12h per ID recs - CTS scheduled surgery 03/15 - Nephrology consulted, pt is safe to proceed with MV surgery - Incentive spirometry for prevention of pneumonia - PT/OT consulted for CTS Pre-OP evaluation - F/u labs 03/13 am * Assessment & Plan Note - Dennis Delatorre MD - 03/13/2025 8:02 AM CDTAssociated Problem(s): Endocarditis, suspected - SINTIA came back for large vegetation on mitral valve with severe mitral regurgitation. Per SINTIA, CTSrecommends multi team consult for approved recs to follow on surgery - 03/09 Dental surgery completed, 9 teeth were pulled. - Cardiology following, left cardiac cath performed 03/09 PLAN: - Ampicillin 2 g IV q8h per ID recs - Ceftriaxone 2 g IV q12h per ID recs - CTS scheduled surgery 03/15 - Nephrology consulted, pt is safe to proceed with MV surgery - Incentive spirometry for prevention of pneumonia - PT/OT consulted for CTS Pre-OP evaluation - F/u labs 03/13 am * Assessment & Plan Note - Dennis Delatorre MD - 03/13/2025 8:02 AM CDTAssociated Problem(s): HTN (hypertension) - Home Rx: Metoprolol succinate 25 mg PO QHS, amlodipine 5 mg PO QD - BP stable, 119-126 systolic this AM PLAN: - Continue metoprolol succinate 25 - amLODIPine (Norvasc) tablet 5 mg * Assessment & Plan Note - Dennis Delatorre MD - 03/13/2025 8:02 AM CDTAssociated Problem(s): COPD (chronic obstructive pulmonary disease) (HCC) - Home meds include Trelegy, fluticasone propionate PLAN: - Incruse and symbicort while in-patient * Assessment & Plan Note - Dennis Delatorre MD - 03/13/2025 8:02 AM CDTAssociated Problem(s): CKD (chronic kidney disease) stage 5, GFR less than 15 ml/min (HCC) Cr-3.44-3.62 PLAN: - Avoid nephrotoxic agents and continue tight control of blood pressures MAP > 65 - Nephrology consulted, pt should proceed with cath and MV surgery - Start FeSo4 PO per nephrology - Daily RFP * Assessment & Plan Note - Dennis Delatorre MD - 03/13/2025 8:02 AM CDTAssociated Problem(s): Abscess of spleen - SINTIA came back for large vegetation on mitral valve with severe mitral regurgitation. Per SINTIA, CTSrecommends multi team consult for approved recs to follow on surgery - 03/09 Dental surgery completed, 9 teeth were pulled. - Cardiology following, left cardiac cath performed 03/09 PLAN: - Ampicillin 2 g IV q8h per ID recs - Ceftriaxone 2 g IV q12h per ID recs - CTS scheduled surgery 03/15 - Nephrology consulted, pt is safe to proceed with MV surgery - Incentive spirometry for prevention of pneumonia - PT/OT consulted for CTS Pre-OP evaluation - F/u labs 03/13 am * Assessment & Plan Note - Mamta Sky MD - 03/12/2025 11:01 AM CDTAssociated Problem(s): Diverticulosis - SINTIA came back for large vegetation on mitral valve with severe mitral regurgitation. Per SINTIA, CTSrecommends multi team consult for approved recs to follow on surgery - 03/09 Dental surgery completed, 9 teeth were pulled. - Cardiology following, left cardiac cath performed 03/09 PLAN: - Ampicillin 2 g IV q8h per ID recs - Ceftriaxone 2 g IV q12h per ID recs - CTS scheduled surgery 03/15 - Nephrology consulted, pt is safe to proceed with MV surgery - Incentive spirometry for prevention of pneumonia - PT/OT consulted for CTS Pre-OP evaluation - F/u labs 03/13 am * Assessment & Plan Note - Mamta Sky MD - 03/12/2025 11:01 AM CDTAssociated Problem(s): Enterococcal bacteremia - SINTIA came back for large vegetation on mitral valve with severe mitral regurgitation. Per SINTIA, CTSrecommends multi team consult for approved recs to follow on surgery - 03/09 Dental surgery completed, 9 teeth were pulled. - Cardiology following, left cardiac cath performed 03/09 PLAN: - Ampicillin 2 g IV q8h per ID recs - Ceftriaxone 2 g IV q12h per ID recs - CTS scheduled surgery 03/15 - Nephrology consulted, pt is safe to proceed with MV surgery - Incentive spirometry for prevention of pneumonia - PT/OT consulted for CTS Pre-OP evaluation - F/u labs 25 am * Assessment & Plan Note - Mamta Sky MD - 03/12/2025 11:01 AM CDTAssociated Problem(s): Mitral valve vegetation (HCC) - SINTIA came back for large vegetation on mitral valve with severe mitral regurgitation. Per SINTIA, CTSrecommends multi team consult for approved recs to follow on surgery - 03/09 Dental surgery completed, 9 teeth were pulled. - Cardiology following, left cardiac cath performed 03/09 PLAN: - Ampicillin 2 g IV q8h per ID recs - Ceftriaxone 2 g IV q12h per ID recs - CTS scheduled surgery 03/15 - Nephrology consulted, pt is safe to proceed with MV surgery - Incentive spirometry for prevention of pneumonia - PT/OT consulted for CTS Pre-OP evaluation - F/u labs 03/13 am * Assessment & Plan Note - Mamta Sky MD - 03/12/2025 11:01 AM CDTAssociated Problem(s): Endocarditis, suspected - SINTIA came back for large vegetation on mitral valve with severe mitral regurgitation. Per SINTIA, CTSrecommends multi team consult for approved recs to follow on surgery - 03/09 Dental surgery completed, 9 teeth were pulled. - Cardiology following, left cardiac cath performed 03/09 PLAN: - Ampicillin 2 g IV q8h per ID recs - Ceftriaxone 2 g IV q12h per ID recs - CTS scheduled surgery 03/15 - Nephrology consulted, pt is safe to proceed with MV surgery - Incentive spirometry for prevention of pneumonia - PT/OT consulted for CTS Pre-OP evaluation - F/u labs 03/13 am * Assessment & Plan Note - Mamta Sky MD - 03/12/2025 11:01 AM CDTAssociated Problem(s): COPD (chronic obstructive pulmonary disease) ([facility]) - Home meds include Trelegy, fluticasone propionate PLAN: - Incruse and symbicort while in-patient * Assessment & Plan Note - Mamta Sky MD - 03/12/2025 11:01 AM CDTAssociated Problem(s): CKD (chronic kidney disease) stage 5, GFR less than 15 ml/min ([facility]) Cr-3.44-3.62 PLAN: - Avoid nephrotoxic agents and continue tight control of blood pressures MAP > 65 - Nephrology consulted, pt should proceed with cath and MV surgery - Start FeSo4 PO per nephrology - Daily RFP * Assessment & Plan Note - Mamta Sky MD - 03/12/2025 11:01 AM CDTAssociated Problem(s): Abscess of spleen - SINTIA came back for large vegetation on mitral valve with severe mitral regurgitation. Per SINTIA, CTSrecommends multi team consult for approved recs to follow on surgery - 03/09 Dental surgery completed, 9 teeth were pulled. - Cardiology following, left cardiac cath performed 03/09 PLAN: - Ampicillin 2 g IV q8h per ID recs - Ceftriaxone 2 g IV q12h per ID recs - CTS scheduled surgery 03/15 - Nephrology consulted, pt is safe to proceed with MV surgery - Incentive spirometry for prevention of pneumonia - PT/OT consulted for CTS Pre-OP evaluation - F/u labs 03/13 am * Assessment & Plan Note - Mamta Sky MD - 03/12/2025 7:19 AM CDTAssociated Problem(s): HTN (hypertension) - Home Rx: Metoprolol succinate 25 mg PO QHS, amlodipine 5 mg PO QD - BP stable, 119-126 systolic this AM PLAN: - Continue metoprolol succinate 25 - amLODIPine (Norvasc) tablet 5 mg * Assessment & Plan Note - Cj Carpenter MD - 03/11/2025 11:38 AM CDT Associated Problem(s): Abscess of spleen - CT Abd/Pelvis, OSH (02/28/25): New 8.1 x 5.2 x 5.1 cm relatively low- attentuation likely complex cystic lesion in the inferior spleen. This has developed since 12/05/2024 arguing against neoplasm and favring either subacute hematoma or abscess in the appropriate clinical setting. - Elevated WBC 13.2 at outside hospital, 11.4 this AM and afebrile - IR consulted for possible abscess, low suspicion of abscess based on imaging appearance. No indication for drainage at this time; if patient clinically worsens, could consider MRI w/ contrast but not currently indicated. Imaging finding likely splenic hematoma vs cyst - UA with no concern for infection so no reflex to culture - Blood cultures from OSH revealed 1/2 cultures positive stain for gram positive cocci. Repeat blood cultures collected here revealed similar findings, 1/2 positive for gram cocci in pairs and chainsand later positive for enterococci faecalis - TTE revealed an echodensity 10 mm x 12 mm attached to the anterior mitral leaflet, possible differential includes vegetation, torn chordae. - Denies any IVDU, other drug use - Had tooth extraction 3 months ago, was scheduled for additional tooth extraction on 02/27 but missed while admitted - IR consulted for possible abscess, low suspicion of abscess based on imaging appearance. No indication for drainage at this time; if patient clinically worsens, could consider MRI w/ contrast but not currently indicated - Imaging finding likely splenic hematoma vs cyst - ACS consulted but low suspicion of abscess, given TTE results suggesting more secondary to infectious endocarditis - Per ID request and positive lab cultures for enterococcus faecalis, vancomycin and zosyn were stopped - MRSA negative - SINTIA came back for large vegetation on mitral valve with severe mitral regurgitation. Per SINTIA, CTSrecommends multi team consult for approved recs to follow on surgery - Repeated Blood Cultures ordered, no growth on preliminary results - Renal ultrasound currently unremarkable for inpatient treatment. Will follow up results outpatient, once pt is discharged - 03/09 Dental surgery completed, 9 teeth were pulled. - Cardiology following, left cardiac cath performed 03/09 PLAN: - Continue ampicillin and ceftriaxone per ID recs - CTS follows per SINTIA, request consults from dental (for tooth extraction), cardiology (for left cardiac cath prior to MV surgery), ID (for source of infection and appreciate antibiotic recs), nephrology (recs for MV surgery in setting of improved renal function) - CTS scheduled surgery 03/15, would still like to do multicenter rounds awhile awaiting MV surgery - Nephrology consulted, pt is safe to proceed with MV surgery - pt started on incentive spirometry for prevention of pneumonia - PT/OT consulted for CTS Pre-OP evaluation * Assessment & Plan Note - Cj Carpenter MD - 03/11/2025 11:38 AM CDT Associated Problem(s): Diverticulosis - CT Abd/Pelvis, OSH (02/28/25): New 8.1 x 5.2 x 5.1 cm relatively low- attentuation likely complex cystic lesion in the inferior spleen. This has developed since 12/05/2024 arguing against neoplasm and favring either subacute hematoma or abscess in the appropriate clinical setting. - Elevated WBC 13.2 at outside hospital, 11.4 this AM and afebrile - IR consulted for possible abscess, low suspicion of abscess based on imaging appearance. No indication for drainage at this time; if patient clinically worsens, could consider MRI w/ contrast but not currently indicated. Imaging finding likely splenic hematoma vs cyst - UA with no concern for infection so no reflex to culture - Blood cultures from OSH revealed 1/2 cultures positive stain for gram positive cocci. Repeat blood cultures collected here revealed similar findings, 1/2 positive for gram cocci in pairs and chainsand later positive for enterococci faecalis - TTE revealed an echodensity 10 mm x 12 mm attached to the anterior mitral leaflet, possible differential includes vegetation, torn chordae. - Denies any IVDU, other drug use - Had tooth extraction 3 months ago, was scheduled for additional tooth extraction on 02/27 but missed while admitted - IR consulted for possible abscess, low suspicion of abscess based on imaging appearance. No indication for drainage at this time; if patient clinically worsens, could consider MRI w/ contrast but not currently indicated - Imaging finding likely splenic hematoma vs cyst - ACS consulted but low suspicion of abscess, given TTE results suggesting more secondary to infectious endocarditis - Per ID request and positive lab cultures for enterococcus faecalis, vancomycin and zosyn were stopped - MRSA negative - SINTIA came back for large vegetation on mitral valve with severe mitral regurgitation. Per SINTIA, CTSrecommends multi team consult for approved recs to follow on surgery - Repeated Blood Cultures ordered, no growth on preliminary results - Renal ultrasound currently unremarkable for inpatient treatment. Will follow up results outpatient, once pt is discharged - 03/09 Dental surgery completed, 9 teeth were pulled. - Cardiology following, left cardiac cath performed 03/09 PLAN: - Continue ampicillin and ceftriaxone per ID recs - CTS follows per SINTIA, request consults from dental (for tooth extraction), cardiology (for left cardiac cath prior to MV surgery), ID (for source of infection and appreciate antibiotic recs), nephrology (recs for MV surgery in setting of improved renal function) - CTS scheduled surgery 03/15, would still like to do multicenter rounds awhile awaiting MV surgery - Nephrology consulted, pt is safe to proceed with MV surgery - pt started on incentive spirometry for prevention of pneumonia - PT/OT consulted for CTS Pre-OP evaluation * Assessment & Plan Note - Cj Carpenter MD - 03/11/2025 11:38 AM CDT Associated Problem(s): Enterococcal bacteremia - CT Abd/Pelvis, OSH (02/28/25): New 8.1 x 5.2 x 5.1 cm relatively low- attentuation likely complex cystic lesion in the inferior spleen. This has developed since 12/05/2024 arguing against neoplasm and favring either subacute hematoma or abscess in the appropriate clinical setting. - Elevated WBC 13.2 at outside hospital, 11.4 this AM and afebrile - IR consulted for possible abscess, low suspicion of abscess based on imaging appearance. No indication for drainage at this time; if patient clinically worsens, could consider MRI w/ contrast but not currently indicated. Imaging finding likely splenic hematoma vs cyst - UA with no concern for infection so no reflex to culture - Blood cultures from OSH revealed 1/2 cultures positive stain for gram positive cocci. Repeat blood cultures collected here revealed similar findings, 1/2 positive for gram cocci in pairs and chainsand later positive for enterococci faecalis - TTE revealed an echodensity 10 mm x 12 mm attached to the anterior mitral leaflet, possible differential includes vegetation, torn chordae. - Denies any IVDU, other drug use - Had tooth extraction 3 months ago, was scheduled for additional tooth extraction on 02/27 but missed while admitted - IR consulted for possible abscess, low suspicion of abscess based on imaging appearance. No indication for drainage at this time; if patient clinically worsens, could consider MRI w/ contrast but not currently indicated - Imaging finding likely splenic hematoma vs cyst - ACS consulted but low suspicion of abscess, given TTE results suggesting more secondary to infectious endocarditis - Per ID request and positive lab cultures for enterococcus faecalis, vancomycin and zosyn were stopped - MRSA negative - SINTIA came back for large vegetation on mitral valve with severe mitral regurgitation. Per SINTIA, CTSrecommends multi team consult for approved recs to follow on surgery - Repeated Blood Cultures ordered, no growth on preliminary results - Renal ultrasound currently unremarkable for inpatient treatment. Will follow up results outpatient, once pt is discharged - 03/09 Dental surgery completed, 9 teeth were pulled. - Cardiology following, left cardiac cath performed 03/09 PLAN: - Continue ampicillin and ceftriaxone per ID recs - CTS follows per SINTIA, request consults from dental (for tooth extraction), cardiology (for left cardiac cath prior to MV surgery), ID (for source of infection and appreciate antibiotic recs), nephrology (recs for MV surgery in setting of improved renal function) - CTS scheduled surgery 03/15, would still like to do multicenter rounds awhile awaiting MV surgery - Nephrology consulted, pt is safe to proceed with MV surgery - pt started on incentive spirometry for prevention of pneumonia - PT/OT consulted for CTS Pre-OP evaluation * Assessment & Plan Note - Cj Carpenter MD - 03/11/2025 11:38 AM CDT Associated Problem(s): Mitral valve vegetation (HCC) - CT Abd/Pelvis, OSH (02/28/25): New 8.1 x 5.2 x 5.1 cm relatively low- attentuation likely complex cystic lesion in the inferior spleen. This has developed since 12/05/2024 arguing against neoplasm and favring either subacute hematoma or abscess in the appropriate clinical setting. - Elevated WBC 13.2 at outside hospital, 11.4 this AM and afebrile - IR consulted for possible abscess, low suspicion of abscess based on imaging appearance. No indication for drainage at this time; if patient clinically worsens, could consider MRI w/ contrast but not currently indicated. Imaging finding likely splenic hematoma vs cyst - UA with no concern for infection so no reflex to culture - Blood cultures from OSH revealed 1/2 cultures positive stain for gram positive cocci. Repeat blood cultures collected here revealed similar findings, 1/2 positive for gram cocci in pairs and chainsand later positive for enterococci faecalis - TTE revealed an echodensity 10 mm x 12 mm attached to the anterior mitral leaflet, possible differential includes vegetation, torn chordae. - Denies any IVDU, other drug use - Had tooth extraction 3 months ago, was scheduled for additional tooth extraction on 02/27 but missed while admitted - IR consulted for possible abscess, low suspicion of abscess based on imaging appearance. No indication for drainage at this time; if patient clinically worsens, could consider MRI w/ contrast but not currently indicated - Imaging finding likely splenic hematoma vs cyst - ACS consulted but low suspicion of abscess, given TTE results suggesting more secondary to infectious endocarditis - Per ID request and positive lab cultures for enterococcus faecalis, vancomycin and zosyn were stopped - MRSA negative - SINTIA came back for large vegetation on mitral valve with severe mitral regurgitation. Per SINTIA, CTSrecommends multi team consult for approved recs to follow on surgery - Repeated Blood Cultures ordered, no growth on preliminary results - Renal ultrasound currently unremarkable for inpatient treatment. Will follow up results outpatient, once pt is discharged - 03/09 Dental surgery completed, 9 teeth were pulled. - Cardiology following, left cardiac cath performed 03/09 PLAN: - Continue ampicillin and ceftriaxone per ID recs - CTS follows per SINTIA, request consults from dental (for tooth extraction), cardiology (for left cardiac cath prior to MV surgery), ID (for source of infection and appreciate antibiotic recs), nephrology (recs for MV surgery in setting of improved renal function) - CTS scheduled surgery 03/15, would still like to do multicenter rounds awhile awaiting MV surgery - Nephrology consulted, pt is safe to proceed with MV surgery - pt started on incentive spirometry for prevention of pneumonia - PT/OT consulted for CTS Pre-OP evaluation * Assessment & Plan Note - Cj Carpenter MD - 03/11/2025 11:38 AM CDT Associated Problem(s): Endocarditis, suspected - CT Abd/Pelvis, OSH (02/28/25): New 8.1 x 5.2 x 5.1 cm relatively low- attentuation likely complex cystic lesion in the inferior spleen. This has developed since 12/05/2024 arguing against neoplasm and favring either subacute hematoma or abscess in the appropriate clinical setting. - Elevated WBC 13.2 at outside hospital, 11.4 this AM and afebrile - IR consulted for possible abscess, low suspicion of abscess based on imaging appearance. No indication for drainage at this time; if patient clinically worsens, could consider MRI w/ contrast but not currently indicated. Imaging finding likely splenic hematoma vs cyst - UA with no concern for infection so no reflex to culture - Blood cultures from OSH revealed 1/2 cultures positive stain for gram positive cocci. Repeat blood cultures collected here revealed similar findings, 1/2 positive for gram cocci in pairs and chainsand later positive for enterococci faecalis - TTE revealed an echodensity 10 mm x 12 mm attached to the anterior mitral leaflet, possible differential includes vegetation, torn chordae. - Denies any IVDU, other drug use - Had tooth extraction 3 months ago, was scheduled for additional tooth extraction on 02/27 but missed while admitted - IR consulted for possible abscess, low suspicion of abscess based on imaging appearance. No indication for drainage at this time; if patient clinically worsens, could consider MRI w/ contrast but not currently indicated - Imaging finding likely splenic hematoma vs cyst - ACS consulted but low suspicion of abscess, given TTE results suggesting more secondary to infectious endocarditis - Per ID request and positive lab cultures for enterococcus faecalis, vancomycin and zosyn were stopped - MRSA negative - SINTIA came back for large vegetation on mitral valve with severe mitral regurgitation. Per SINTIA, CTSrecommends multi team consult for approved recs to follow on surgery - Repeated Blood Cultures ordered, no growth on preliminary results - Renal ultrasound currently unremarkable for inpatient treatment. Will follow up results outpatient, once pt is discharged - 03/09 Dental surgery completed, 9 teeth were pulled. - Cardiology following, left cardiac cath performed 03/09 PLAN: - Continue ampicillin and ceftriaxone per ID recs - CTS follows per SINTIA, request consults from dental (for tooth extraction), cardiology (for left cardiac cath prior to MV surgery), ID (for source of infection and appreciate antibiotic recs), nephrology (recs for MV surgery in setting of improved renal function) - CTS scheduled surgery 03/15, would still like to do multicenter rounds awhile awaiting MV surgery - Nephrology consulted, pt is safe to proceed with MV surgery - pt started on incentive spirometry for prevention of pneumonia - PT/OT consulted for CTS Pre-OP evaluation * Assessment & Plan Note - Cj Carpenter MD - 03/11/2025 11:38 AM CDT Associated Problem(s): HTN (hypertension) - Home Rx: Metoprolol succinate 25 mg PO QHS, amlodipine 5 mg PO QD - BP stable, 119-126 systolic this AM PLAN: - Continue metoprolol succinate 25 - amLODIPine (Norvasc) tablet 5 mg * Assessment & Plan Note - Cj Carpenter MD - 03/11/2025 11:38 AM CDT Associated Problem(s): COPD (chronic obstructive pulmonary disease) (HCC) - Home meds include Trelegy, fluticasone propionate PLAN: - Incruse and symbicort while in-patient * Assessment & Plan Note - Cj Carpenter MD - 03/11/2025 11:38 AM CDT Associated Problem(s): CKD (chronic kidney disease) stage 5, GFR less than 15 ml/min (HCC) Cr-3.44-3.62 PLAN: - avoid nephrotoxic agents and continue tight control of blood pressures - nephrology consulted, pt should proceed with cath and MV surgery * Assessment & Plan Note - Cj Carpenter MD - 03/10/2025 12:45 PM CDT Associated Problem(s): Abscess of spleen - CT Abd/Pelvis, OSH (02/28/25): New 8.1 x 5.2 x 5.1 cm relatively low- attentuation likely complex cystic lesion in the inferior spleen. This has developed since 12/05/2024 arguing against neoplasm and favring either subacute hematoma or abscess in the appropriate clinical setting. - Elevated WBC 13.2 at outside hospital, 11.4 this AM and afebrile - IR consulted for possible abscess, low suspicion of abscess based on imaging appearance. No indication for drainage at this time; if patient clinically worsens, could consider MRI w/ contrast but not currently indicated. Imaging finding likely splenic hematoma vs cyst - UA with no concern for infection so no reflex to culture - Blood cultures from OSH revealed 1/2 cultures positive stain for gram positive cocci. Repeat blood cultures collected here revealed similar findings, 1/2 positive for gram cocci in pairs and chainsand later positive for enterococci faecalis - TTE revealed an echodensity 10 mm x 12 mm attached to the anterior mitral leaflet, possible differential includes vegetation, torn chordae. - Denies any IVDU, other drug use - Had tooth extraction 3 months ago, was scheduled for additional tooth extraction on 02/27 but missed while admitted - IR consulted for possible abscess, low suspicion of abscess based on imaging appearance. No indication for drainage at this time; if patient clinically worsens, could consider MRI w/ contrast but not currently indicated - Imaging finding likely splenic hematoma vs cyst - ACS consulted but low suspicion of abscess, given TTE results suggesting more secondary to infectious endocarditis - Per ID request and positive lab cultures for enterococcus faecalis, vancomycin and zosyn were stopped - MRSA negative - SINTIA came back for large vegetation on mitral valve with severe mitral regurgitation. Per SINTIA, CTSrecommends multi team consult for approved recs to follow on surgery - Repeated Blood Cultures ordered, no growth on preliminary results - Renal ultrasound currently unremarkable for inpatient treatment. Will follow up results outpatient, once pt is discharged - 03/09 Dental surgery completed, 9 teeth were pulled. PLAN: - Continue ampicillin and ceftriaxone per ID recs - CTS follows per SINTIA, request consults from dental (for tooth extraction), cardiology (for left cardiac cath prior to MV surgery), ID (for source of infection and appreciate antibiotic recs), nephrology (recs for MV surgery in setting of improved renal function) - CTS scheduled surgery 03/15, would still like to do multicenter rounds awhile awaiting MV surgery - Cardiology following, left cardiac cath performed 03/09 - Nephrology consulted, pt is safe to proceed with MV surgery - pt started on incentive spirometry for prevention of pneumonia * Assessment & Plan Note - Cj Carpenter MD - 03/10/2025 12:45 PM CDT Associated Problem(s): Diverticulosis - CT Abd/Pelvis, OSH (02/28/25): New 8.1 x 5.2 x 5.1 cm relatively low- attentuation likely complex cystic lesion in the inferior spleen. This has developed since 12/05/2024 arguing against neoplasm and favring either subacute hematoma or abscess in the appropriate clinical setting. - Elevated WBC 13.2 at outside hospital, 11.4 this AM and afebrile - IR consulted for possible abscess, low suspicion of abscess based on imaging appearance. No indication for drainage at this time; if patient clinically worsens, could consider MRI w/ contrast but not currently indicated. Imaging finding likely splenic hematoma vs cyst - UA with no concern for infection so no reflex to culture - Blood cultures from OSH revealed 1/2 cultures positive stain for gram positive cocci. Repeat blood cultures collected here revealed similar findings, 1/2 positive for gram cocci in pairs and chainsand later positive for enterococci faecalis - TTE revealed an echodensity 10 mm x 12 mm attached to the anterior mitral leaflet, possible differential includes vegetation, torn chordae. - Denies any IVDU, other drug use - Had tooth extraction 3 months ago, was scheduled for additional tooth extraction on 02/27 but missed while admitted - IR consulted for possible abscess, low suspicion of abscess based on imaging appearance. No indication for drainage at this time; if patient clinically worsens, could consider MRI w/ contrast but not currently indicated - Imaging finding likely splenic hematoma vs cyst - ACS consulted but low suspicion of abscess, given TTE results suggesting more secondary to infectious endocarditis - Per ID request and positive lab cultures for enterococcus faecalis, vancomycin and zosyn were stopped - MRSA negative - SINTIA came back for large vegetation on mitral valve with severe mitral regurgitation. Per SINTIA, CTSrecommends multi team consult for approved recs to follow on surgery - Repeated Blood Cultures ordered, no growth on preliminary results - Renal ultrasound currently unremarkable for inpatient treatment. Will follow up results outpatient, once pt is discharged - 03/09 Dental surgery completed, 9 teeth were pulled. PLAN: - Continue ampicillin and ceftriaxone per ID recs - CTS follows per SINTIA, request consults from dental (for tooth extraction), cardiology (for left cardiac cath prior to MV surgery), ID (for source of infection and appreciate antibiotic recs), nephrology (recs for MV surgery in setting of improved renal function) - CTS scheduled surgery 03/15, would still like to do multicenter rounds awhile awaiting MV surgery - Cardiology following, left cardiac cath performed 03/09 - Nephrology consulted, pt is safe to proceed with MV surgery - pt started on incentive spirometry for prevention of pneumonia * Assessment & Plan Note - Cj Carpenter MD - 03/10/2025 12:45 PM CDT Associated Problem(s): Enterococcal bacteremia - CT Abd/Pelvis, OSH (02/28/25): New 8.1 x 5.2 x 5.1 cm relatively low- attentuation likely complex cystic lesion in the inferior spleen. This has developed since 12/05/2024 arguing against neoplasm and favring either subacute hematoma or abscess in the appropriate clinical setting. - Elevated WBC 13.2 at outside hospital, 11.4 this AM and afebrile - IR consulted for possible abscess, low suspicion of abscess based on imaging appearance. No indication for drainage at this time; if patient clinically worsens, could consider MRI w/ contrast but not currently indicated. Imaging finding likely splenic hematoma vs cyst - UA with no concern for infection so no reflex to culture - Blood cultures from OSH revealed 1/2 cultures positive stain for gram positive cocci. Repeat blood cultures collected here revealed similar findings, 1/2 positive for gram cocci in pairs and chainsand later positive for enterococci faecalis - TTE revealed an echodensity 10 mm x 12 mm attached to the anterior mitral leaflet, possible differential includes vegetation, torn chordae. - Denies any IVDU, other drug use - Had tooth extraction 3 months ago, was scheduled for additional tooth extraction on 02/27 but missed while admitted - IR consulted for possible abscess, low suspicion of abscess based on imaging appearance. No indication for drainage at this time; if patient clinically worsens, could consider MRI w/ contrast but not currently indicated - Imaging finding likely splenic hematoma vs cyst - ACS consulted but low suspicion of abscess, given TTE results suggesting more secondary to infectious endocarditis - Per ID request and positive lab cultures for enterococcus faecalis, vancomycin and zosyn were stopped - MRSA negative - SINTIA came back for large vegetation on mitral valve with severe mitral regurgitation. Per SINTIA, CTSrecommends multi team consult for approved recs to follow on surgery - Repeated Blood Cultures ordered, no growth on preliminary results - Renal ultrasound currently unremarkable for inpatient treatment. Will follow up results outpatient, once pt is discharged - 03/09 Dental surgery completed, 9 teeth were pulled. PLAN: - Continue ampicillin and ceftriaxone per ID recs - CTS follows per SINTIA, request consults from dental (for tooth extraction), cardiology (for left cardiac cath prior to MV surgery), ID (for source of infection and appreciate antibiotic recs), nephrology (recs for MV surgery in setting of improved renal function) - CTS scheduled surgery 03/15, would still like to do multicenter rounds awhile awaiting MV surgery - Cardiology following, left cardiac cath performed 03/09 - Nephrology consulted, pt is safe to proceed with MV surgery - pt started on incentive spirometry for prevention of pneumonia * Assessment & Plan Note - Cj Carpenter MD - 03/10/2025 12:45 PM CDT Associated Problem(s): Mitral valve vegetation (HCC) - CT Abd/Pelvis, OSH (02/28/25): New 8.1 x 5.2 x 5.1 cm relatively low- attentuation likely complex cystic lesion in the inferior spleen. This has developed since 12/05/2024 arguing against neoplasm and favring either subacute hematoma or abscess in the appropriate clinical setting. - Elevated WBC 13.2 at outside hospital, 11.4 this AM and afebrile - IR consulted for possible abscess, low suspicion of abscess based on imaging appearance. No indication for drainage at this time; if patient clinically worsens, could consider MRI w/ contrast but not currently indicated. Imaging finding likely splenic hematoma vs cyst - UA with no concern for infection so no reflex to culture - Blood cultures from OSH revealed 1/2 cultures positive stain for gram positive cocci. Repeat blood cultures collected here revealed similar findings, 1/2 positive for gram cocci in pairs and chainsand later positive for enterococci faecalis - TTE revealed an echodensity 10 mm x 12 mm attached to the anterior mitral leaflet, possible differential includes vegetation, torn chordae. - Denies any IVDU, other drug use - Had tooth extraction 3 months ago, was scheduled for additional tooth extraction on 02/27 but missed while admitted - IR consulted for possible abscess, low suspicion of abscess based on imaging appearance. No indication for drainage at this time; if patient clinically worsens, could consider MRI w/ contrast but not currently indicated - Imaging finding likely splenic hematoma vs cyst - ACS consulted but low suspicion of abscess, given TTE results suggesting more secondary to infectious endocarditis - Per ID request and positive lab cultures for enterococcus faecalis, vancomycin and zosyn were stopped - MRSA negative - SINTIA came back for large vegetation on mitral valve with severe mitral regurgitation. Per SINTIA, CTSrecommends multi team consult for approved recs to follow on surgery - Repeated Blood Cultures ordered, no growth on preliminary results - Renal ultrasound currently unremarkable for inpatient treatment. Will follow up results outpatient, once pt is discharged - 03/09 Dental surgery completed, 9 teeth were pulled. PLAN: - Continue ampicillin and ceftriaxone per ID recs - CTS follows per SINTIA, request consults from dental (for tooth extraction), cardiology (for left cardiac cath prior to MV surgery), ID (for source of infection and appreciate antibiotic recs), nephrology (recs for MV surgery in setting of improved renal function) - CTS scheduled surgery 03/15, would still like to do multicenter rounds awhile awaiting MV surgery - Cardiology following, left cardiac cath performed 03/09 - Nephrology consulted, pt is safe to proceed with MV surgery - pt started on incentive spirometry for prevention of pneumonia * Assessment & Plan Note - Cj Carpenter MD - 03/10/2025 12:45 PM CDT Associated Problem(s): Endocarditis, suspected - CT Abd/Pelvis, OSH (02/28/25): New 8.1 x 5.2 x 5.1 cm relatively low- attentuation likely complex cystic lesion in the inferior spleen. This has developed since 12/05/2024 arguing against neoplasm and favring either subacute hematoma or abscess in the appropriate clinical setting. - Elevated WBC 13.2 at outside hospital, 11.4 this AM and afebrile - IR consulted for possible abscess, low suspicion of abscess based on imaging appearance. No indication for drainage at this time; if patient clinically worsens, could consider MRI w/ contrast but not currently indicated. Imaging finding likely splenic hematoma vs cyst - UA with no concern for infection so no reflex to culture - Blood cultures from OSH revealed 1/2 cultures positive stain for gram positive cocci. Repeat blood cultures collected here revealed similar findings, 1/2 positive for gram cocci in pairs and chainsand later positive for enterococci faecalis - TTE revealed an echodensity 10 mm x 12 mm attached to the anterior mitral leaflet, possible differential includes vegetation, torn chordae. - Denies any IVDU, other drug use - Had tooth extraction 3 months ago, was scheduled for additional tooth extraction on 02/27 but missed while admitted - IR consulted for possible abscess, low suspicion of abscess based on imaging appearance. No indication for drainage at this time; if patient clinically worsens, could consider MRI w/ contrast but not currently indicated - Imaging finding likely splenic hematoma vs cyst - ACS consulted but low suspicion of abscess, given TTE results suggesting more secondary to infectious endocarditis - Per ID request and positive lab cultures for enterococcus faecalis, vancomycin and zosyn were stopped - MRSA negative - SINTIA came back for large vegetation on mitral valve with severe mitral regurgitation. Per SINTIA, CTSrecommends multi team consult for approved recs to follow on surgery - Repeated Blood Cultures ordered, no growth on preliminary results - Renal ultrasound currently unremarkable for inpatient treatment. Will follow up results outpatient, once pt is discharged - 03/09 Dental surgery completed, 9 teeth were pulled. PLAN: - Continue ampicillin and ceftriaxone per ID recs - CTS follows per SINTIA, request consults from dental (for tooth extraction), cardiology (for left cardiac cath prior to MV surgery), ID (for source of infection and appreciate antibiotic recs), nephrology (recs for MV surgery in setting of improved renal function) - CTS scheduled surgery 03/15, would still like to do multicenter rounds awhile awaiting MV surgery - Cardiology following, left cardiac cath performed 03/09 - Nephrology consulted, pt is safe to proceed with MV surgery - pt started on incentive spirometry for prevention of pneumonia * Assessment & Plan Note - Cj Carpenter MD - 03/10/2025 11:57 AM CDT Associated Problem(s): HTN (hypertension) - Home Rx: Metoprolol succinate 25 mg PO QHS, amlodipine 5 mg PO QD - BP stable, 119-126 systolic this AM PLAN: - Continue metoprolol succinate 25 - amLODIPine (Norvasc) tablet 5 mg * Assessment & Plan Note - Cj Carpenter MD - 03/10/2025 11:57 AM CDT Associated Problem(s): COPD (chronic obstructive pulmonary disease) (HCC) - Home meds include Trelegy, fluticasone propionate PLAN: - Incruse and symbicort while in-patient * Assessment & Plan Note - Cj Carpenter MD - 03/10/2025 11:57 AM CDT Associated Problem(s): CKD (chronic kidney disease) stage 5, GFR less than 15 ml/min ([facility]) Cr-3.44-3.62 PLAN: - avoid nephrotoxic agents and continue tight control of blood pressures - nephrology consulted, pt should proceed with cath and MV surgery * Assessment & Plan Note - Cj Carpenter MD - 03/09/2025 2:54 PM CDT Associated Problem(s): Abscess of spleen - CT Abd/Pelvis, OSH (02/28/25): New 8.1 x 5.2 x 5.1 cm relatively low- attentuation likely complex cystic lesion in the inferior spleen. This has developed since 12/05/2024 arguing against neoplasm and favring either subacute hematoma or abscess in the appropriate clinical setting. - Elevated WBC 13.2 at outside hospital, 11.4 this AM and afebrile - IR consulted for possible abscess, low suspicion of abscess based on imaging appearance. No indication for drainage at this time; if patient clinically worsens, could consider MRI w/ contrast but not currently indicated. Imaging finding likely splenic hematoma vs cyst - UA with no concern for infection so no reflex to culture - Blood cultures from OSH revealed 1/2 cultures positive stain for gram positive cocci. Repeat blood cultures collected here revealed similar findings, 1/2 positive for gram cocci in pairs and chainsand later positive for enterococci faecalis - TTE revealed an echodensity 10 mm x 12 mm attached to the anterior mitral leaflet, possible differential includes vegetation, torn chordae. - Denies any IVDU, other drug use - Had tooth extraction 3 months ago, was scheduled for additional tooth extraction on 02/27 but missed while admitted - IR consulted for possible abscess, low suspicion of abscess based on imaging appearance. No indication for drainage at this time; if patient clinically worsens, could consider MRI w/ contrast but not currently indicated - Imaging finding likely splenic hematoma vs cyst - ACS consulted but low suspicion of abscess, given TTE results suggesting more secondary to infectious endocarditis - Per ID request and positive lab cultures for enterococcus faecalis, vancomycin and zosyn were stopped - MRSA negative - SINTIA came back for large vegetation on mitral valve with severe mitral regurgitation. Per SINTIA, CTSrecommends multi team consult for approved recs to follow on surgery PLAN: - Continue ampicillin and ceftriaxone for now - Repeated Blood Cultures ordered, no growth on preliminary results - CTS follows per SINTIA, request consults from dental (for tooth extraction), cardiology (for left cardiac cath prior to MV surgery), ID (for source of infection and appreciate antibiotic recs), nephrology (recs for MV surgery in setting of improved renal function) - CTS scheduled surgery 03/15, would still like to do multicenter rounds awhile awaiting MV surgery - Dental consulted, Dental surgery will occur today for teeth extraction 03/09 - Cardiology following, left cardiac cath performed 03/09 - Nephrology consulted, pt is safe to proceed with MV surgery, awaiting results of renal ultrasound - pt started on incentive spirometry for prevention of pneumonia * Assessment & Plan Note - Cj Carpenter MD - 03/09/2025 2:54 PM CDT Associated Problem(s): Diverticulosis - CT Abd/Pelvis, OSH (02/28/25): New 8.1 x 5.2 x 5.1 cm relatively low- attentuation likely complex cystic lesion in the inferior spleen. This has developed since 12/05/2024 arguing against neoplasm and favring either subacute hematoma or abscess in the appropriate clinical setting. - Elevated WBC 13.2 at outside hospital, 11.4 this AM and afebrile - IR consulted for possible abscess, low suspicion of abscess based on imaging appearance. No indication for drainage at this time; if patient clinically worsens, could consider MRI w/ contrast but not currently indicated. Imaging finding likely splenic hematoma vs cyst - UA with no concern for infection so no reflex to culture - Blood cultures from OSH revealed 1/2 cultures positive stain for gram positive cocci. Repeat blood cultures collected here revealed similar findings, 1/2 positive for gram cocci in pairs and chainsand later positive for enterococci faecalis - TTE revealed an echodensity 10 mm x 12 mm attached to the anterior mitral leaflet, possible differential includes vegetation, torn chordae. - Denies any IVDU, other drug use - Had tooth extraction 3 months ago, was scheduled for additional tooth extraction on 02/27 but missed while admitted - IR consulted for possible abscess, low suspicion of abscess based on imaging appearance. No indication for drainage at this time; if patient clinically worsens, could consider MRI w/ contrast but not currently indicated - Imaging finding likely splenic hematoma vs cyst - ACS consulted but low suspicion of abscess, given TTE results suggesting more secondary to infectious endocarditis - Per ID request and positive lab cultures for enterococcus faecalis, vancomycin and zosyn were stopped - MRSA negative - SINTIA came back for large vegetation on mitral valve with severe mitral regurgitation. Per SINTIA, CTSrecommends multi team consult for approved recs to follow on surgery PLAN: - Continue ampicillin and ceftriaxone for now - Repeated Blood Cultures ordered, no growth on preliminary results - CTS follows per SINTIA, request consults from dental (for tooth extraction), cardiology (for left cardiac cath prior to MV surgery), ID (for source of infection and appreciate antibiotic recs), nephrology (recs for MV surgery in setting of improved renal function) - CTS scheduled surgery 03/15, would still like to do multicenter rounds awhile awaiting MV surgery - Dental consulted, Dental surgery will occur today for teeth extraction 03/09 - Cardiology following, left cardiac cath performed 03/09 - Nephrology consulted, pt is safe to proceed with MV surgery, awaiting results of renal ultrasound - pt started on incentive spirometry for prevention of pneumonia * Assessment & Plan Note - Cj Carpenter MD - 03/09/2025 2:54 PM CDT Associated Problem(s): Enterococcal bacteremia - CT Abd/Pelvis, OSH (02/28/25): New 8.1 x 5.2 x 5.1 cm relatively low- attentuation likely complex cystic lesion in the inferior spleen. This has developed since 12/05/2024 arguing against neoplasm and favring either subacute hematoma or abscess in the appropriate clinical setting. - Elevated WBC 13.2 at outside hospital, 11.4 this AM and afebrile - IR consulted for possible abscess, low suspicion of abscess based on imaging appearance. No indication for drainage at this time; if patient clinically worsens, could consider MRI w/ contrast but not currently indicated. Imaging finding likely splenic hematoma vs cyst - UA with no concern for infection so no reflex to culture - Blood cultures from OSH revealed 1/2 cultures positive stain for gram positive cocci. Repeat blood cultures collected here revealed similar findings, 1/2 positive for gram cocci in pairs and chainsand later positive for enterococci faecalis - TTE revealed an echodensity 10 mm x 12 mm attached to the anterior mitral leaflet, possible differential includes vegetation, torn chordae. - Denies any IVDU, other drug use - Had tooth extraction 3 months ago, was scheduled for additional tooth extraction on 02/27 but missed while admitted - IR consulted for possible abscess, low suspicion of abscess based on imaging appearance. No indication for drainage at this time; if patient clinically worsens, could consider MRI w/ contrast but not currently indicated - Imaging finding likely splenic hematoma vs cyst - ACS consulted but low suspicion of abscess, given TTE results suggesting more secondary to infectious endocarditis - Per ID request and positive lab cultures for enterococcus faecalis, vancomycin and zosyn were stopped - MRSA negative - SINTIA came back for large vegetation on mitral valve with severe mitral regurgitation. Per SINTIA, CTSrecommends multi team consult for approved recs to follow on surgery PLAN: - Continue ampicillin and ceftriaxone for now - Repeated Blood Cultures ordered, no growth on preliminary results - CTS follows per SINTIA, request consults from dental (for tooth extraction), cardiology (for left cardiac cath prior to MV surgery), ID (for source of infection and appreciate antibiotic recs), nephrology (recs for MV surgery in setting of improved renal function) - CTS scheduled surgery 03/15, would still like to do multicenter rounds awhile awaiting MV surgery - Dental consulted, Dental surgery will occur today for teeth extraction 03/09 - Cardiology following, left cardiac cath performed 03/09 - Nephrology consulted, pt is safe to proceed with MV surgery, awaiting results of renal ultrasound - pt started on incentive spirometry for prevention of pneumonia * Assessment & Plan Note - Cj Carpenter MD - 03/09/2025 2:54 PM CDT Associated Problem(s): Mitral valve vegetation (HCC) - CT Abd/Pelvis, OSH (02/28/25): New 8.1 x 5.2 x 5.1 cm relatively low- attentuation likely complex cystic lesion in the inferior spleen. This has developed since 12/05/2024 arguing against neoplasm and favring either subacute hematoma or abscess in the appropriate clinical setting. - Elevated WBC 13.2 at outside hospital, 11.4 this AM and afebrile - IR consulted for possible abscess, low suspicion of abscess based on imaging appearance. No indication for drainage at this time; if patient clinically worsens, could consider MRI w/ contrast but not currently indicated. Imaging finding likely splenic hematoma vs cyst - UA with no concern for infection so no reflex to culture - Blood cultures from OSH revealed 1/2 cultures positive stain for gram positive cocci. Repeat blood cultures collected here revealed similar findings, 1/2 positive for gram cocci in pairs and chainsand later positive for enterococci faecalis - TTE revealed an echodensity 10 mm x 12 mm attached to the anterior mitral leaflet, possible differential includes vegetation, torn chordae. - Denies any IVDU, other drug use - Had tooth extraction 3 months ago, was scheduled for additional tooth extraction on 02/27 but missed while admitted - IR consulted for possible abscess, low suspicion of abscess based on imaging appearance. No indication for drainage at this time; if patient clinically worsens, could consider MRI w/ contrast but not currently indicated - Imaging finding likely splenic hematoma vs cyst - ACS consulted but low suspicion of abscess, given TTE results suggesting more secondary to infectious endocarditis - Per ID request and positive lab cultures for enterococcus faecalis, vancomycin and zosyn were stopped - MRSA negative - SINTIA came back for large vegetation on mitral valve with severe mitral regurgitation. Per SINTIA, CTSrecommends multi team consult for approved recs to follow on surgery PLAN: - Continue ampicillin and ceftriaxone for now - Repeated Blood Cultures ordered, no growth on preliminary results - CTS follows per SINTIA, request consults from dental (for tooth extraction), cardiology (for left cardiac cath prior to MV surgery), ID (for source of infection and appreciate antibiotic recs), nephrology (recs for MV surgery in setting of improved renal function) - CTS scheduled surgery 03/15, would still like to do multicenter rounds awhile awaiting MV surgery - Dental consulted, Dental surgery will occur today for teeth extraction 03/09 - Cardiology following, left cardiac cath performed 03/09 - Nephrology consulted, pt is safe to proceed with MV surgery, awaiting results of renal ultrasound - pt started on incentive spirometry for prevention of pneumonia * Assessment & Plan Note - Cj Carpenter MD - 03/09/2025 2:54 PM CDT Associated Problem(s): Endocarditis, suspected - CT Abd/Pelvis, OSH (02/28/25): New 8.1 x 5.2 x 5.1 cm relatively low- attentuation likely complex cystic lesion in the inferior spleen. This has developed since 12/05/2024 arguing against neoplasm and favring either subacute hematoma or abscess in the appropriate clinical setting. - Elevated WBC 13.2 at outside hospital, 11.4 this AM and afebrile - IR consulted for possible abscess, low suspicion of abscess based on imaging appearance. No indication for drainage at this time; if patient clinically worsens, could consider MRI w/ contrast but not currently indicated. Imaging finding likely splenic hematoma vs cyst - UA with no concern for infection so no reflex to culture - Blood cultures from OSH revealed 1/2 cultures positive stain for gram positive cocci. Repeat blood cultures collected here revealed similar findings, 1/2 positive for gram cocci in pairs and chainsand later positive for enterococci faecalis - TTE revealed an echodensity 10 mm x 12 mm attached to the anterior mitral leaflet, possible differential includes vegetation, torn chordae. - Denies any IVDU, other drug use - Had tooth extraction 3 months ago, was scheduled for additional tooth extraction on 02/27 but missed while admitted - IR consulted for possible abscess, low suspicion of abscess based on imaging appearance. No indication for drainage at this time; if patient clinically worsens, could consider MRI w/ contrast but not currently indicated - Imaging finding likely splenic hematoma vs cyst - ACS consulted but low suspicion of abscess, given TTE results suggesting more secondary to infectious endocarditis - Per ID request and positive lab cultures for enterococcus faecalis, vancomycin and zosyn were stopped - MRSA negative - SINTIA came back for large vegetation on mitral valve with severe mitral regurgitation. Per SINTIA, CTSrecommends multi team consult for approved recs to follow on surgery PLAN: - Continue ampicillin and ceftriaxone for now - Repeated Blood Cultures ordered, no growth on preliminary results - CTS follows per SINTIA, request consults from dental (for tooth extraction), cardiology (for left cardiac cath prior to MV surgery), ID (for source of infection and appreciate antibiotic recs), nephrology (recs for MV surgery in setting of improved renal function) - CTS scheduled surgery 03/15, would still like to do multicenter rounds awhile awaiting MV surgery - Dental consulted, Dental surgery will occur today for teeth extraction 03/09 - Cardiology following, left cardiac cath performed 03/09 - Nephrology consulted, pt is safe to proceed with MV surgery, awaiting results of renal ultrasound - pt started on incentive spirometry for prevention of pneumonia * Assessment & Plan Note - Cj Carpenter MD - 03/09/2025 2:54 PM CDT Associated Problem(s): HTN (hypertension) - Home Rx: Metoprolol succinate 25 mg PO QHS, amlodipine 5 mg PO QD - BP stable, 119-126 systolic this AM PLAN: - Continue metoprolol succinate 25 - amLODIPine (Norvasc) tablet 5 mg * Assessment & Plan Note - Cj Carpenter MD - 03/09/2025 2:54 PM CDT Associated Problem(s): COPD (chronic obstructive pulmonary disease) (HCC) - Home meds include Trelegy, fluticasone propionate PLAN: - Incruse and symbicort while in-patient * Assessment & Plan Note - Cj Carpenter MD - 03/09/2025 2:54 PM CDT Associated Problem(s): CKD (chronic kidney disease) stage 5, GFR less than 15 ml/min (HCC) Cr-3.44-3.62 PLAN: - avoid nephrotoxic agents and continue tight control of blood pressures - nephrology consulted, pt should proceed with cath and MV surgery * Assessment & Plan Note - Cj Carpenter MD - 03/08/2025 1:03 PM CDT Associated Problem(s): Abscess of spleen - CT Abd/Pelvis, OSH (02/28/25): New 8.1 x 5.2 x 5.1 cm relatively low- attentuation likely complex cystic lesion in the inferior spleen. This has developed since 12/05/2024 arguing against neoplasm and favring either subacute hematoma or abscess in the appropriate clinical setting. - Elevated WBC 13.2 at outside hospital, 11.4 this AM and afebrile - IR consulted for possible abscess, low suspicion of abscess based on imaging appearance. No indication for drainage at this time; if patient clinically worsens, could consider MRI w/ contrast but not currently indicated. Imaging finding likely splenic hematoma vs cyst - UA with no concern for infection so no reflex to culture - Blood cultures from OSH revealed 1/2 cultures positive stain for gram positive cocci. Repeat blood cultures collected here revealed similar findings, 1/2 positive for gram cocci in pairs and chainsand later positive for enterococci faecalis - TTE revealed an echodensity 10 mm x 12 mm attached to the anterior mitral leaflet, possible differential includes vegetation, torn chordae. - Denies any IVDU, other drug use - Had tooth extraction 3 months ago, was scheduled for additional tooth extraction on 02/27 but missed while admitted - IR consulted for possible abscess, low suspicion of abscess based on imaging appearance. No indication for drainage at this time; if patient clinically worsens, could consider MRI w/ contrast but not currently indicated - Imaging finding likely splenic hematoma vs cyst - ACS consulted but low suspicion of abscess, given TTE results suggesting more secondary to infectious endocarditis - Per ID request and positive lab cultures for enterococcus faecalis, vancomycin and zosyn were stopped - MRSA negative PLAN: - Continue ampicillin and ceftriaxone for now - Repeated Blood Cultures ordered, no growth on preliminary results - CTS follows per SINTIA, request consults from dental (for tooth extraction), cardiology (for left cardiac cath prior to MV surgery), ID (for source of infection and appreciate antibiotic recs), nephrology (recs for MV surgery in setting of improved renal function) - Once all recs are placed, CTS will follow for MV surgery - Dental consulted, Dental surgery will occur today for teeth extraction 03/08 - Cardiology following, appreciate recs from nephrology prior to left cardiac cath - Nephrology consulted, pt is safe to proceed with MV surgery, awaiting results of renal ultrasound - CTS would like multicenter rounds or chat discussion of all consults for final approval on MV surgery - pt started on incentive spirometry for prevention of pneumonia * Assessment & Plan Note - Cj Carpenter MD - 03/08/2025 1:03 PM CDT Associated Problem(s): Diverticulosis - CT Abd/Pelvis, OSH (02/28/25): New 8.1 x 5.2 x 5.1 cm relatively low- attentuation likely complex cystic lesion in the inferior spleen. This has developed since 12/05/2024 arguing against neoplasm and favring either subacute hematoma or abscess in the appropriate clinical setting. - Elevated WBC 13.2 at outside hospital, 11.4 this AM and afebrile - IR consulted for possible abscess, low suspicion of abscess based on imaging appearance. No indication for drainage at this time; if patient clinically worsens, could consider MRI w/ contrast but not currently indicated. Imaging finding likely splenic hematoma vs cyst - UA with no concern for infection so no reflex to culture - Blood cultures from OSH revealed 1/2 cultures positive stain for gram positive cocci. Repeat blood cultures collected here revealed similar findings, 1/2 positive for gram cocci in pairs and chainsand later positive for enterococci faecalis - TTE revealed an echodensity 10 mm x 12 mm attached to the anterior mitral leaflet, possible differential includes vegetation, torn chordae. - Denies any IVDU, other drug use - Had tooth extraction 3 months ago, was scheduled for additional tooth extraction on 02/27 but missed while admitted - IR consulted for possible abscess, low suspicion of abscess based on imaging appearance. No indication for drainage at this time; if patient clinically worsens, could consider MRI w/ contrast but not currently indicated - Imaging finding likely splenic hematoma vs cyst - ACS consulted but low suspicion of abscess, given TTE results suggesting more secondary to infectious endocarditis - Per ID request and positive lab cultures for enterococcus faecalis, vancomycin and zosyn were stopped - MRSA negative PLAN: - Continue ampicillin and ceftriaxone for now - Repeated Blood Cultures ordered, no growth on preliminary results - CTS follows per SINTIA, request consults from dental (for tooth extraction), cardiology (for left cardiac cath prior to MV surgery), ID (for source of infection and appreciate antibiotic recs), nephrology (recs for MV surgery in setting of improved renal function) - Once all recs are placed, CTS will follow for MV surgery - Dental consulted, Dental surgery will occur today for teeth extraction 03/08 - Cardiology following, appreciate recs from nephrology prior to left cardiac cath - Nephrology consulted, pt is safe to proceed with MV surgery, awaiting results of renal ultrasound - CTS would like multicenter rounds or chat discussion of all consults for final approval on MV surgery - pt started on incentive spirometry for prevention of pneumonia * Assessment & Plan Note - Cj Carpenter MD - 03/08/2025 1:03 PM CDT Associated Problem(s): Enterococcal bacteremia - CT Abd/Pelvis, OSH (02/28/25): New 8.1 x 5.2 x 5.1 cm relatively low- attentuation likely complex cystic lesion in the inferior spleen. This has developed since 12/05/2024 arguing against neoplasm and favring either subacute hematoma or abscess in the appropriate clinical setting. - Elevated WBC 13.2 at outside hospital, 11.4 this AM and afebrile - IR consulted for possible abscess, low suspicion of abscess based on imaging appearance. No indication for drainage at this time; if patient clinically worsens, could consider MRI w/ contrast but not currently indicated. Imaging finding likely splenic hematoma vs cyst - UA with no concern for infection so no reflex to culture - Blood cultures from OSH revealed 1/2 cultures positive stain for gram positive cocci. Repeat blood cultures collected here revealed similar findings, 1/2 positive for gram cocci in pairs and chainsand later positive for enterococci faecalis - TTE revealed an echodensity 10 mm x 12 mm attached to the anterior mitral leaflet, possible differential includes vegetation, torn chordae. - Denies any IVDU, other drug use - Had tooth extraction 3 months ago, was scheduled for additional tooth extraction on 02/27 but missed while admitted - IR consulted for possible abscess, low suspicion of abscess based on imaging appearance. No indication for drainage at this time; if patient clinically worsens, could consider MRI w/ contrast but not currently indicated - Imaging finding likely splenic hematoma vs cyst - ACS consulted but low suspicion of abscess, given TTE results suggesting more secondary to infectious endocarditis - Per ID request and positive lab cultures for enterococcus faecalis, vancomycin and zosyn were stopped - MRSA negative PLAN: - Continue ampicillin and ceftriaxone for now - Repeated Blood Cultures ordered, no growth on preliminary results - CTS follows per [facility], request consults from dental (for tooth extraction), cardiology (for left cardiac cath prior to MV surgery), ID (for source of infection and appreciate antibiotic recs), nephrology (recs for MV surgery in setting of improved renal function) - Once all recs are placed, CTS will follow for MV surgery - Dental consulted, Dental surgery will occur today for teeth extraction 03/08 - Cardiology following, appreciate recs from nephrology prior to left cardiac cath - Nephrology consulted, pt is safe to proceed with MV surgery, awaiting results of renal ultrasound - CTS would like multicenter rounds or chat discussion of all consults for final approval on MV surgery - pt started on incentive spirometry for prevention of pneumonia * Assessment & Plan Note - Cj Carpenter MD - 03/08/2025 1:03 PM CDT Associated Problem(s): Mitral valve vegetation (HCC) - CT Abd/Pelvis, OSH (02/28/25): New 8.1 x 5.2 x 5.1 cm relatively low- attentuation likely complex cystic lesion in the inferior spleen. This has developed since 12/05/2024 arguing against neoplasm and favring either subacute hematoma or abscess in the appropriate clinical setting. - Elevated WBC 13.2 at outside hospital, 11.4 this AM and afebrile - IR consulted for possible abscess, low suspicion of abscess based on imaging appearance. No indication for drainage at this time; if patient clinically worsens, could consider MRI w/ contrast but not currently indicated. Imaging finding likely splenic hematoma vs cyst - UA with no concern for infection so no reflex to culture - Blood cultures from OSH revealed 1/2 cultures positive stain for gram positive cocci. Repeat blood cultures collected here revealed similar findings, 1/2 positive for gram cocci in pairs and chainsand later positive for enterococci faecalis - TTE revealed an echodensity 10 mm x 12 mm attached to the anterior mitral leaflet, possible differential includes vegetation, torn chordae. - Denies any IVDU, other drug use - Had tooth extraction 3 months ago, was scheduled for additional tooth extraction on 02/27 but missed while admitted - IR consulted for possible abscess, low suspicion of abscess based on imaging appearance. No indication for drainage at this time; if patient clinically worsens, could consider MRI w/ contrast but not currently indicated - Imaging finding likely splenic hematoma vs cyst - ACS consulted but low suspicion of abscess, given TTE results suggesting more secondary to infectious endocarditis - Per ID request and positive lab cultures for enterococcus faecalis, vancomycin and zosyn were stopped - MRSA negative PLAN: - Continue ampicillin and ceftriaxone for now - Repeated Blood Cultures ordered, no growth on preliminary results - CTS follows per [facility], request consults from dental (for tooth extraction), cardiology (for left cardiac cath prior to MV surgery), ID (for source of infection and appreciate antibiotic recs), nephrology (recs for MV surgery in setting of improved renal function) - Once all recs are placed, CTS will follow for MV surgery - Dental consulted, Dental surgery will occur today for teeth extraction 03/08 - Cardiology following, appreciate recs from nephrology prior to left cardiac cath - Nephrology consulted, pt is safe to proceed with MV surgery, awaiting results of renal ultrasound - CTS would like multicenter rounds or chat discussion of all consults for final approval on MV surgery - pt started on incentive spirometry for prevention of pneumonia * Assessment & Plan Note - Cj Carpenter MD - 03/08/2025 1:03 PM CDT Associated Problem(s): Endocarditis, suspected - CT Abd/Pelvis, OSH (02/28/25): New 8.1 x 5.2 x 5.1 cm relatively low- attentuation likely complex cystic lesion in the inferior spleen. This has developed since 12/05/2024 arguing against neoplasm and favring either subacute hematoma or abscess in the appropriate clinical setting. - Elevated WBC 13.2 at outside hospital, 11.4 this AM and afebrile - IR consulted for possible abscess, low suspicion of abscess based on imaging appearance. No indication for drainage at this time; if patient clinically worsens, could consider MRI w/ contrast but not currently indicated. Imaging finding likely splenic hematoma vs cyst - UA with no concern for infection so no reflex to culture - Blood cultures from OSH revealed 1/2 cultures positive stain for gram positive cocci. Repeat blood cultures collected here revealed similar findings, 1/2 positive for gram cocci in pairs and chainsand later positive for enterococci faecalis - TTE revealed an echodensity 10 mm x 12 mm attached to the anterior mitral leaflet, possible differential includes vegetation, torn chordae. - Denies any IVDU, other drug use - Had tooth extraction 3 months ago, was scheduled for additional tooth extraction on 02/27 but missed while admitted - IR consulted for possible abscess, low suspicion of abscess based on imaging appearance. No indication for drainage at this time; if patient clinically worsens, could consider MRI w/ contrast but not currently indicated - Imaging finding likely splenic hematoma vs cyst - ACS consulted but low suspicion of abscess, given TTE results suggesting more secondary to infectious endocarditis - Per ID request and positive lab cultures for enterococcus faecalis, vancomycin and zosyn were stopped - MRSA negative PLAN: - Continue ampicillin and ceftriaxone for now - Repeated Blood Cultures ordered, no growth on preliminary results - CTS follows per [facility], request consults from dental (for tooth extraction), cardiology (for left cardiac cath prior to MV surgery), ID (for source of infection and appreciate antibiotic recs), nephrology (recs for MV surgery in setting of improved renal function) - Once all recs are placed, CTS will follow for MV surgery - Dental consulted, Dental surgery will occur today for teeth extraction 03/08 - Cardiology following, appreciate recs from nephrology prior to left cardiac cath - Nephrology consulted, pt is safe to proceed with MV surgery, awaiting results of renal ultrasound - CTS would like multicenter rounds or chat discussion of all consults for final approval on MV surgery - pt started on incentive spirometry for prevention of pneumonia * Assessment & Plan Note - Cj Carpenter MD - 03/08/2025 1:03 PM CDT Associated Problem(s): CKD (chronic kidney disease) stage 5, GFR less than 15 ml/min (HCC) Cr-3.44-3.62 PLAN: - avoid nephrotoxic agents and continue tight control of blood pressures - nephrology consulted, pt should proceed with cath and MV surgery * Assessment & Plan Note - Cj Carpenter MD - 03/08/2025 7:38 AM CDT Associated Problem(s): HTN (hypertension) - Home Rx: Metoprolol succinate 25 mg PO QHS, amlodipine 5 mg PO QD - BP stable, 119-126 systolic this AM PLAN: - Continue metoprolol succinate 25 - amLODIPine (Norvasc) tablet 5 mg * Assessment & Plan Note - Cj Carpenter MD - 03/08/2025 7:38 AM CDT Associated Problem(s): COPD (chronic obstructive pulmonary disease) (HCC) - Home meds include Trelegy, fluticasone propionate PLAN: - Incruse and symbicort while in-patient * Assessment & Plan Note - Cj Carpenter MD - 03/07/2025 3:04 PM CDT Associated Problem(s): Abscess of spleen - CT Abd/Pelvis, OSH (02/28/25): New 8.1 x 5.2 x 5.1 cm relatively low- attentuation likely complex cystic lesion in the inferior spleen. This has developed since 12/05/2024 arguing against neoplasm and favring either subacute hematoma or abscess in the appropriate clinical setting. - Elevated WBC 13.2 at outside hospital, 11.4 this AM and afebrile - IR consulted for possible abscess, low suspicion of abscess based on imaging appearance. No indication for drainage at this time; if patient clinically worsens, could consider MRI w/ contrast but not currently indicated. Imaging finding likely splenic hematoma vs cyst - UA with no concern for infection so no reflex to culture - Blood cultures from OSH revealed 1/2 cultures positive stain for gram positive cocci. Repeat blood cultures collected here revealed similar findings, 1/2 positive for gram cocci in pairs and chainsand later positive for enterococci faecalis - TTE revealed an echodensity 10 mm x 12 mm attached to the anterior mitral leaflet, possible differential includes vegetation, torn chordae. - Denies any IVDU, other drug use - Had tooth extraction 3 months ago, was scheduled for additional tooth extraction on 02/27 but missed while admitted - IR consulted for possible abscess, low suspicion of abscess based on imaging appearance. No indication for drainage at this time; if patient clinically worsens, could consider MRI w/ contrast but not currently indicated - Imaging finding likely splenic hematoma vs cyst - ACS consulted but low suspicion of abscess, given TTE results suggesting more secondary to infectious endocarditis - Per ID request and positive lab cultures for enterococcus faecalis, vancomycin and zosyn were stopped PLAN: - Continue ampicillin and ceftriaxone for now - Repeated Blood Cultures ordered, no growth on preliminary results - MRSA negative - CTS follows per [facility], request consults from dental (for tooth extraction), cardiology (for left cardiac cath prior to MV surgery), ID (for source of infection and appreciate antibiotic recs), nephrology (recs for MV surgery in setting of improved renal function) - Once all recs are placed, CTS will follow for MV surgery - Dental consulted, will wait for opening of OR to conduct tooth extractions - Cardiology following, appreciate recs from nephrology prior to left cardiac cath - Nephrology consulted, pt is safe to proceed with MV surgery following lab results of vit d, pth, iron panel, ferritin, and renal ultrasound - CTS would like multicenter rounds for tomorrow 03/08 * Assessment & Plan Note - Cj Carpenter MD - 03/07/2025 3:04 PM CDT Associated Problem(s): Diverticulosis - CT Abd/Pelvis, OSH (02/28/25): New 8.1 x 5.2 x 5.1 cm relatively low- attentuation likely complex cystic lesion in the inferior spleen. This has developed since 12/05/2024 arguing against neoplasm and favring either subacute hematoma or abscess in the appropriate clinical setting. - Elevated WBC 13.2 at outside hospital, 11.4 this AM and afebrile - IR consulted for possible abscess, low suspicion of abscess based on imaging appearance. No indication for drainage at this time; if patient clinically worsens, could consider MRI w/ contrast but not currently indicated. Imaging finding likely splenic hematoma vs cyst - UA with no concern for infection so no reflex to culture - Blood cultures from OSH revealed 1/2 cultures positive stain for gram positive cocci. Repeat blood cultures collected here revealed similar findings, 1/2 positive for gram cocci in pairs and chainsand later positive for enterococci faecalis - TTE revealed an echodensity 10 mm x 12 mm attached to the anterior mitral leaflet, possible differential includes vegetation, torn chordae. - Denies any IVDU, other drug use - Had tooth extraction 3 months ago, was scheduled for additional tooth extraction on 02/27 but missed while admitted - IR consulted for possible abscess, low suspicion of abscess based on imaging appearance. No indication for drainage at this time; if patient clinically worsens, could consider MRI w/ contrast but not currently indicated - Imaging finding likely splenic hematoma vs cyst - ACS consulted but low suspicion of abscess, given TTE results suggesting more secondary to infectious endocarditis - Per ID request and positive lab cultures for enterococcus faecalis, vancomycin and zosyn were stopped PLAN: - Continue ampicillin and ceftriaxone for now - Repeated Blood Cultures ordered, no growth on preliminary results - MRSA negative - CTS follows per [facility], request consults from dental (for tooth extraction), cardiology (for left cardiac cath prior to MV surgery), ID (for source of infection and appreciate antibiotic recs), nephrology (recs for MV surgery in setting of improved renal function) - Once all recs are placed, CTS will follow for MV surgery - Dental consulted, will wait for opening of OR to conduct tooth extractions - Cardiology following, appreciate recs from nephrology prior to left cardiac cath - Nephrology consulted, pt is safe to proceed with MV surgery following lab results of vit d, pth, iron panel, ferritin, and renal ultrasound - CTS would like multicenter rounds for tomorrow 03/08 * Assessment & Plan Note - Cj Carpenter MD - 03/07/2025 3:04 PM CDT Associated Problem(s): Enterococcal bacteremia - CT Abd/Pelvis, OSH (02/28/25): New 8.1 x 5.2 x 5.1 cm relatively low- attentuation likely complex cystic lesion in the inferior spleen. This has developed since 12/05/2024 arguing against neoplasm and favring either subacute hematoma or abscess in the appropriate clinical setting. - Elevated WBC 13.2 at outside hospital, 11.4 this AM and afebrile - IR consulted for possible abscess, low suspicion of abscess based on imaging appearance. No indication for drainage at this time; if patient clinically worsens, could consider MRI w/ contrast but not currently indicated. Imaging finding likely splenic hematoma vs cyst - UA with no concern for infection so no reflex to culture - Blood cultures from OSH revealed 1/2 cultures positive stain for gram positive cocci. Repeat blood cultures collected here revealed similar findings, 1/2 positive for gram cocci in pairs and chainsand later positive for enterococci faecalis - TTE revealed an echodensity 10 mm x 12 mm attached to the anterior mitral leaflet, possible differential includes vegetation, torn chordae. - Denies any IVDU, other drug use - Had tooth extraction 3 months ago, was scheduled for additional tooth extraction on 02/27 but missed while admitted - IR consulted for possible abscess, low suspicion of abscess based on imaging appearance. No indication for drainage at this time; if patient clinically worsens, could consider MRI w/ contrast but not currently indicated - Imaging finding likely splenic hematoma vs cyst - ACS consulted but low suspicion of abscess, given TTE results suggesting more secondary to infectious endocarditis - Per ID request and positive lab cultures for enterococcus faecalis, vancomycin and zosyn were stopped PLAN: - Continue ampicillin and ceftriaxone for now - Repeated Blood Cultures ordered, no growth on preliminary results - MRSA negative - CTS follows per [facility], request consults from dental (for tooth extraction), cardiology (for left cardiac cath prior to MV surgery), ID (for source of infection and appreciate antibiotic recs), nephrology (recs for MV surgery in setting of improved renal function) - Once all recs are placed, CTS will follow for MV surgery - Dental consulted, will wait for opening of OR to conduct tooth extractions - Cardiology following, appreciate recs from nephrology prior to left cardiac cath - Nephrology consulted, pt is safe to proceed with MV surgery following lab results of vit d, pth, iron panel, ferritin, and renal ultrasound - CTS would like multicenter rounds for tomorrow 03/08 * Assessment & Plan Note - Cj Carpenter MD - 03/07/2025 3:04 PM CDT Associated Problem(s): Mitral valve vegetation (HCC) - CT Abd/Pelvis, OSH (02/28/25): New 8.1 x 5.2 x 5.1 cm relatively low- attentuation likely complex cystic lesion in the inferior spleen. This has developed since 12/05/2024 arguing against neoplasm and favring either subacute hematoma or abscess in the appropriate clinical setting. - Elevated WBC 13.2 at outside hospital, 11.4 this AM and afebrile - IR consulted for possible abscess, low suspicion of abscess based on imaging appearance. No indication for drainage at this time; if patient clinically worsens, could consider MRI w/ contrast but not currently indicated. Imaging finding likely splenic hematoma vs cyst - UA with no concern for infection so no reflex to culture - Blood cultures from OSH revealed 1/2 cultures positive stain for gram positive cocci. Repeat blood cultures collected here revealed similar findings, 1/2 positive for gram cocci in pairs and chainsand later positive for enterococci faecalis - TTE revealed an echodensity 10 mm x 12 mm attached to the anterior mitral leaflet, possible differential includes vegetation, torn chordae. - Denies any IVDU, other drug use - Had tooth extraction 3 months ago, was scheduled for additional tooth extraction on 02/27 but missed while admitted - IR consulted for possible abscess, low suspicion of abscess based on imaging appearance. No indication for drainage at this time; if patient clinically worsens, could consider MRI w/ contrast but not currently indicated - Imaging finding likely splenic hematoma vs cyst - ACS consulted but low suspicion of abscess, given TTE results suggesting more secondary to infectious endocarditis - Per ID request and positive lab cultures for enterococcus faecalis, vancomycin and zosyn were stopped PLAN: - Continue ampicillin and ceftriaxone for now - Repeated Blood Cultures ordered, no growth on preliminary results - MRSA negative - CTS follows per [facility], request consults from dental (for tooth extraction), cardiology (for left cardiac cath prior to MV surgery), ID (for source of infection and appreciate antibiotic recs), nephrology (recs for MV surgery in setting of improved renal function) - Once all recs are placed, CTS will follow for MV surgery - Dental consulted, will wait for opening of OR to conduct tooth extractions - Cardiology following, appreciate recs from nephrology prior to left cardiac cath - Nephrology consulted, pt is safe to proceed with MV surgery following lab results of vit d, pth, iron panel, ferritin, and renal ultrasound - CTS would like multicenter rounds for tomorrow 03/08 * Assessment & Plan Note - Cj Carpenter MD - 03/07/2025 3:04 PM CDT Associated Problem(s): Endocarditis, suspected - CT Abd/Pelvis, OSH (02/28/25): New 8.1 x 5.2 x 5.1 cm relatively low- attentuation likely complex cystic lesion in the inferior spleen. This has developed since 12/05/2024 arguing against neoplasm and favring either subacute hematoma or abscess in the appropriate clinical setting. - Elevated WBC 13.2 at outside hospital, 11.4 this AM and afebrile - IR consulted for possible abscess, low suspicion of abscess based on imaging appearance. No indication for drainage at this time; if patient clinically worsens, could consider MRI w/ contrast but not currently indicated. Imaging finding likely splenic hematoma vs cyst - UA with no concern for infection so no reflex to culture - Blood cultures from OSH revealed 1/2 cultures positive stain for gram positive cocci. Repeat blood cultures collected here revealed similar findings, 1/2 positive for gram cocci in pairs and chainsand later positive for enterococci faecalis - TTE revealed an echodensity 10 mm x 12 mm attached to the anterior mitral leaflet, possible differential includes vegetation, torn chordae. - Denies any IVDU, other drug use - Had tooth extraction 3 months ago, was scheduled for additional tooth extraction on 02/27 but missed while admitted - IR consulted for possible abscess, low suspicion of abscess based on imaging appearance. No indication for drainage at this time; if patient clinically worsens, could consider MRI w/ contrast but not currently indicated - Imaging finding likely splenic hematoma vs cyst - ACS consulted but low suspicion of abscess, given TTE results suggesting more secondary to infectious endocarditis - Per ID request and positive lab cultures for enterococcus faecalis, vancomycin and zosyn were stopped PLAN: - Continue ampicillin and ceftriaxone for now - Repeated Blood Cultures ordered, no growth on preliminary results - MRSA negative - CTS follows per [facility], request consults from dental (for tooth extraction), cardiology (for left cardiac cath prior to MV surgery), ID (for source of infection and appreciate antibiotic recs), nephrology (recs for MV surgery in setting of improved renal function) - Once all recs are placed, CTS will follow for MV surgery - Dental consulted, will wait for opening of OR to conduct tooth extractions - Cardiology following, appreciate recs from nephrology prior to left cardiac cath - Nephrology consulted, pt is safe to proceed with MV surgery following lab results of vit d, pth, iron panel, ferritin, and renal ultrasound - CTS would like multicenter rounds for tomorrow 03/08 * Assessment & Plan Note - Cj Carpenter MD - 03/07/2025 7:30 AM CDT Associated Problem(s): HTN (hypertension) - Home Rx: Metoprolol succinate 25 mg PO QHS, amlodipine 5 mg PO QD - BP stable, 119-126 systolic this AM PLAN: - Continue metoprolol succinate 25 - amLODIPine (Norvasc) tablet 5 mg * Assessment & Plan Note - Cj Carpenter MD - 03/07/2025 7:30 AM CDT Associated Problem(s): COPD (chronic obstructive pulmonary disease) (HCC) - Home meds include Trelegy, fluticasone propionate PLAN: - Incruse and symbicort while in-patient * Assessment & Plan Note - Cj Carpenter MD - 03/07/2025 7:30 AM CDT Associated Problem(s): CKD (chronic kidney disease) stage 5, GFR less than 15 ml/min (HCC) Cr-3.44-3.62 PLAN: - avoid nephrotoxic agents and continue tight control of blood pressures * Assessment & Plan Note - Cj Carpenter MD - 2025 2:48 PM CDT Associated Problem(s): Abscess of spleen - CT Abd/Pelvis, OSH (02/28/25): New 8.1 x 5.2 x 5.1 cm relatively low- attentuation likely complex cystic lesion in the inferior spleen. This has developed since 12/05/2024 arguing against neoplasm and favring either subacute hematoma or abscess in the appropriate clinical setting. - Elevated WBC 13.2 at outside hospital, 11.4 this AM and afebrile - IR consulted for possible abscess, low suspicion of abscess based on imaging appearance. No indication for drainage at this time; if patient clinically worsens, could consider MRI w/ contrast but not currently indicated. Imaging finding likely splenic hematoma vs cyst - UA with no concern for infection so no reflex to culture - Blood cultures from OSH revealed 1/2 cultures positive stain for gram positive cocci. Repeat blood cultures collected here revealed similar findings, 1/2 positive for gram cocci in pairs and chainsand later positive for enterococci faecalis - TTE revealed an echodensity 10 mm x 12 mm attached to the anterior mitral leaflet, possible differential includes vegetation, torn chordae. - Denies any IVDU, other drug use - Had tooth extraction 3 months ago, was scheduled for additional tooth extraction on 02/27 but missed while admitted - IR consulted for possible abscess, low suspicion of abscess based on imaging appearance. No indication for drainage at this time; if patient clinically worsens, could consider MRI w/ contrast but not currently indicated - Imaging finding likely splenic hematoma vs cyst - ACS consulted but low suspicion of abscess, given TTE results suggesting more secondary to infectious endocarditis - Per ID request and positive lab cultures for enterococcus faecalis, vancomycin and zosyn were stopped PLAN: - Continue ampicillin and ceftriaxone - SINTIA done, pending results - Per ID consult, repeat blood cultures - MRSA negative - CTS following and would appreciate recs * Assessment & Plan Note - Cj Carpenter MD - 2025 2:48 PM CDT Associated Problem(s): Diverticulosis - CT Abd/Pelvis, OSH (02/28/25): New 8.1 x 5.2 x 5.1 cm relatively low- attentuation likely complex cystic lesion in the inferior spleen. This has developed since 12/05/2024 arguing against neoplasm and favring either subacute hematoma or abscess in the appropriate clinical setting. - Elevated WBC 13.2 at outside hospital, 11.4 this AM and afebrile - IR consulted for possible abscess, low suspicion of abscess based on imaging appearance. No indication for drainage at this time; if patient clinically worsens, could consider MRI w/ contrast but not currently indicated. Imaging finding likely splenic hematoma vs cyst - UA with no concern for infection so no reflex to culture - Blood cultures from OSH revealed 1/2 cultures positive stain for gram positive cocci. Repeat blood cultures collected here revealed similar findings, 1/2 positive for gram cocci in pairs and chainsand later positive for enterococci faecalis - TTE revealed an echodensity 10 mm x 12 mm attached to the anterior mitral leaflet, possible differential includes vegetation, torn chordae. - Denies any IVDU, other drug use - Had tooth extraction 3 months ago, was scheduled for additional tooth extraction on 02/27 but missed while admitted - IR consulted for possible abscess, low suspicion of abscess based on imaging appearance. No indication for drainage at this time; if patient clinically worsens, could consider MRI w/ contrast but not currently indicated - Imaging finding likely splenic hematoma vs cyst - ACS consulted but low suspicion of abscess, given TTE results suggesting more secondary to infectious endocarditis - Per ID request and positive lab cultures for enterococcus faecalis, vancomycin and zosyn were stopped PLAN: - Continue ampicillin and ceftriaxone - SINTIA done, pending results - Per ID consult, repeat blood cultures - MRSA negative - CTS following and would appreciate recs * Assessment & Plan Note - Cj Carpenter MD - 2025 2:48 PM CDT Associated Problem(s): Enterococcal bacteremia - CT Abd/Pelvis, OSH (02/28/25): New 8.1 x 5.2 x 5.1 cm relatively low- attentuation likely complex cystic lesion in the inferior spleen. This has developed since 12/05/2024 arguing against neoplasm and favring either subacute hematoma or abscess in the appropriate clinical setting. - Elevated WBC 13.2 at outside hospital, 11.4 this AM and afebrile - IR consulted for possible abscess, low suspicion of abscess based on imaging appearance. No indication for drainage at this time; if patient clinically worsens, could consider MRI w/ contrast but not currently indicated. Imaging finding likely splenic hematoma vs cyst - UA with no concern for infection so no reflex to culture - Blood cultures from OSH revealed 1/2 cultures positive stain for gram positive cocci. Repeat blood cultures collected here revealed similar findings, 1/2 positive for gram cocci in pairs and chainsand later positive for enterococci faecalis - TTE revealed an echodensity 10 mm x 12 mm attached to the anterior mitral leaflet, possible differential includes vegetation, torn chordae. - Denies any IVDU, other drug use - Had tooth extraction 3 months ago, was scheduled for additional tooth extraction on 02/27 but missed while admitted - IR consulted for possible abscess, low suspicion of abscess based on imaging appearance. No indication for drainage at this time; if patient clinically worsens, could consider MRI w/ contrast but not currently indicated - Imaging finding likely splenic hematoma vs cyst - ACS consulted but low suspicion of abscess, given TTE results suggesting more secondary to infectious endocarditis - Per ID request and positive lab cultures for enterococcus faecalis, vancomycin and zosyn were stopped PLAN: - Continue ampicillin and ceftriaxone - SINTIA done, pending results - Per ID consult, repeat blood cultures - MRSA negative - CTS following and would appreciate recs * Assessment & Plan Note - Cj Carpenter MD - 2025 2:48 PM CDT Associated Problem(s): Mitral valve vegetation (HCC) - CT Abd/Pelvis, OSH (02/28/25): New 8.1 x 5.2 x 5.1 cm relatively low- attentuation likely complex cystic lesion in the inferior spleen. This has developed since 12/05/2024 arguing against neoplasm and favring either subacute hematoma or abscess in the appropriate clinical setting. - Elevated WBC 13.2 at outside hospital, 11.4 this AM and afebrile - IR consulted for possible abscess, low suspicion of abscess based on imaging appearance. No indication for drainage at this time; if patient clinically worsens, could consider MRI w/ contrast but not currently indicated. Imaging finding likely splenic hematoma vs cyst - UA with no concern for infection so no reflex to culture - Blood cultures from OSH revealed 1/2 cultures positive stain for gram positive cocci. Repeat blood cultures collected here revealed similar findings, 1/2 positive for gram cocci in pairs and chainsand later positive for enterococci faecalis - TTE revealed an echodensity 10 mm x 12 mm attached to the anterior mitral leaflet, possible differential includes vegetation, torn chordae. - Denies any IVDU, other drug use - Had tooth extraction 3 months ago, was scheduled for additional tooth extraction on 02/27 but missed while admitted - IR consulted for possible abscess, low suspicion of abscess based on imaging appearance. No indication for drainage at this time; if patient clinically worsens, could consider MRI w/ contrast but not currently indicated - Imaging finding likely splenic hematoma vs cyst - ACS consulted but low suspicion of abscess, given TTE results suggesting more secondary to infectious endocarditis - Per ID request and positive lab cultures for enterococcus faecalis, vancomycin and zosyn were stopped PLAN: - Continue ampicillin and ceftriaxone - SINTIA done, pending results - Per ID consult, repeat blood cultures - MRSA negative - CTS following and would appreciate recs * Assessment & Plan Note - Cj Carpenter MD - 2025 2:48 PM CDT Associated Problem(s): Endocarditis, suspected - CT Abd/Pelvis, OSH (02/28/25): New 8.1 x 5.2 x 5.1 cm relatively low- attentuation likely complex cystic lesion in the inferior spleen. This has developed since 12/05/2024 arguing against neoplasm and favring either subacute hematoma or abscess in the appropriate clinical setting. - Elevated WBC 13.2 at outside hospital, 11.4 this AM and afebrile - IR consulted for possible abscess, low suspicion of abscess based on imaging appearance. No indication for drainage at this time; if patient clinically worsens, could consider MRI w/ contrast but not currently indicated. Imaging finding likely splenic hematoma vs cyst - UA with no concern for infection so no reflex to culture - Blood cultures from OSH revealed 1/2 cultures positive stain for gram positive cocci. Repeat blood cultures collected here revealed similar findings, 1/2 positive for gram cocci in pairs and chainsand later positive for enterococci faecalis - TTE revealed an echodensity 10 mm x 12 mm attached to the anterior mitral leaflet, possible differential includes vegetation, torn chordae. - Denies any IVDU, other drug use - Had tooth extraction 3 months ago, was scheduled for additional tooth extraction on 02/27 but missed while admitted - IR consulted for possible abscess, low suspicion of abscess based on imaging appearance. No indication for drainage at this time; if patient clinically worsens, could consider MRI w/ contrast but not currently indicated - Imaging finding likely splenic hematoma vs cyst - ACS consulted but low suspicion of abscess, given TTE results suggesting more secondary to infectious endocarditis - Per ID request and positive lab cultures for enterococcus faecalis, vancomycin and zosyn were stopped PLAN: - Continue ampicillin and ceftriaxone - SINTIA done, pending results - Per ID consult, repeat blood cultures - MRSA negative - CTS following and would appreciate recs * Assessment & Plan Note - Cj Carpenter MD - 2025 2:48 PM CDT Associated Problem(s): HTN (hypertension) - Home Rx: Metoprolol succinate 25 mg PO QHS, amlodipine 5 mg PO QD - BP stable, 119-126 systolic this AM PLAN: - Continue metoprolol succinate 25 - amLODIPine (Norvasc) tablet 5 mg * Assessment & Plan Note - Cj Carpenter MD - 2025 2:48 PM CDT Associated Problem(s): COPD (chronic obstructive pulmonary disease) (HCC) - Home meds include Trelegy, fluticasone propionate PLAN: - Incruse and symbicort while in-patient * Assessment & Plan Note - Cj Carpenter MD - 2025 2:48 PM CDT Associated Problem(s): CKD (chronic kidney disease) stage 5, GFR less than 15 ml/min (HCC) Cr-3.44-3.62 PLAN: - avoid nephrotoxic agents and continue tight control of blood pressures * Assessment & Plan Note - Cj Carpenter MD - 03/05/2025 1:00 PM CDT Associated Problem(s): Abscess of spleen - CT Abd/Pelvis, OSH (02/28/25): New 8.1 x 5.2 x 5.1 cm relatively low- attentuation likely complex cystic lesion in the inferior spleen. This has developed since 12/05/2024 arguing against neoplasm and favring either subacute hematoma or abscess in the appropriate clinical setting. - Elevated WBC 13.2 at outside hospital, 11.4 this AM and afebrile - IR consulted for possible abscess, low suspicion of abscess based on imaging appearance. No indication for drainage at this time; if patient clinically worsens, could consider MRI w/ contrast but not currently indicated. Imaging finding likely splenic hematoma vs cyst - UA with no concern for infection so no reflex to culture - Blood cultures from OSH revealed 1/2 cultures positive stain for gram positive cocci. Repeat blood cultures collected here revealed similar findings, 1/2 positive for gram cocci in pairs and chainsand later positive for enterococci faecalis - TTE revealed an echodensity 10 mm x 12 mm attached to the anterior mitral leaflet, possible differential includes vegetation, torn chordae. - Denies any IVDU, other drug use - Had tooth extraction 3 months ago, was scheduled for additional tooth extraction on 02/27 but missed while admitted - IR consulted for possible abscess, low suspicion of abscess based on imaging appearance. No indication for drainage at this time; if patient clinically worsens, could consider MRI w/ contrast but not currently indicated - Imaging finding likely splenic hematoma vs cyst - ACS consulted but low suspicion of abscess, given TTE results suggesting more secondary to infectious endocarditis - Per ID request and positive lab cultures for enterococcus faecalis, vancomycin and zosyn were stopped PLAN: - Switch antibiotics to ampicillin and ceftriaxone - SINTIA ordered to evaluate for infectious source on 03/06 - Per ID consult, repeat blood cultures - MRSA negative - CTS following and would appreciate recs * Assessment & Plan Note - Cj Carpenter MD - 03/05/2025 1:00 PM CDT Associated Problem(s): Diverticulosis - CT Abd/Pelvis, OSH (02/28/25): New 8.1 x 5.2 x 5.1 cm relatively low- attentuation likely complex cystic lesion in the inferior spleen. This has developed since 12/05/2024 arguing against neoplasm and favring either subacute hematoma or abscess in the appropriate clinical setting. - Elevated WBC 13.2 at outside hospital, 11.4 this AM and afebrile - IR consulted for possible abscess, low suspicion of abscess based on imaging appearance. No indication for drainage at this time; if patient clinically worsens, could consider MRI w/ contrast but not currently indicated. Imaging finding likely splenic hematoma vs cyst - UA with no concern for infection so no reflex to culture - Blood cultures from OSH revealed 1/2 cultures positive stain for gram positive cocci. Repeat blood cultures collected here revealed similar findings, 1/2 positive for gram cocci in pairs and chainsand later positive for enterococci faecalis - TTE revealed an echodensity 10 mm x 12 mm attached to the anterior mitral leaflet, possible differential includes vegetation, torn chordae. - Denies any IVDU, other drug use - Had tooth extraction 3 months ago, was scheduled for additional tooth extraction on 02/27 but missed while admitted - IR consulted for possible abscess, low suspicion of abscess based on imaging appearance. No indication for drainage at this time; if patient clinically worsens, could consider MRI w/ contrast but not currently indicated - Imaging finding likely splenic hematoma vs cyst - ACS consulted but low suspicion of abscess, given TTE results suggesting more secondary to infectious endocarditis - Per ID request and positive lab cultures for enterococcus faecalis, vancomycin and zosyn were stopped PLAN: - Switch antibiotics to ampicillin and ceftriaxone - SINTIA ordered to evaluate for infectious source on 03/06 - Per ID consult, repeat blood cultures - MRSA negative - CTS following and would appreciate recs * Assessment & Plan Note - Cj Carpenter MD - 03/05/2025 1:00 PM CDT Associated Problem(s): Enterococcal bacteremia - CT Abd/Pelvis, OSH (02/28/25): New 8.1 x 5.2 x 5.1 cm relatively low- attentuation likely complex cystic lesion in the inferior spleen. This has developed since 12/05/2024 arguing against neoplasm and favring either subacute hematoma or abscess in the appropriate clinical setting. - Elevated WBC 13.2 at outside hospital, 11.4 this AM and afebrile - IR consulted for possible abscess, low suspicion of abscess based on imaging appearance. No indication for drainage at this time; if patient clinically worsens, could consider MRI w/ contrast but not currently indicated. Imaging finding likely splenic hematoma vs cyst - UA with no concern for infection so no reflex to culture - Blood cultures from OSH revealed 1/2 cultures positive stain for gram positive cocci. Repeat blood cultures collected here revealed similar findings, 1/2 positive for gram cocci in pairs and chainsand later positive for enterococci faecalis - TTE revealed an echodensity 10 mm x 12 mm attached to the anterior mitral leaflet, possible differential includes vegetation, torn chordae. - Denies any IVDU, other drug use - Had tooth extraction 3 months ago, was scheduled for additional tooth extraction on 02/27 but missed while admitted - IR consulted for possible abscess, low suspicion of abscess based on imaging appearance. No indication for drainage at this time; if patient clinically worsens, could consider MRI w/ contrast but not currently indicated - Imaging finding likely splenic hematoma vs cyst - ACS consulted but low suspicion of abscess, given TTE results suggesting more secondary to infectious endocarditis - Per ID request and positive lab cultures for enterococcus faecalis, vancomycin and zosyn were stopped PLAN: - Switch antibiotics to ampicillin and ceftriaxone - SINTIA ordered to evaluate for infectious source on 03/06 - Per ID consult, repeat blood cultures - MRSA negative - CTS following and would appreciate recs * Assessment & Plan Note - Cj Carpenter MD - 03/05/2025 1:00 PM CDT Associated Problem(s): Mitral valve vegetation (HCC) - CT Abd/Pelvis, OSH (02/28/25): New 8.1 x 5.2 x 5.1 cm relatively low- attentuation likely complex cystic lesion in the inferior spleen. This has developed since 12/05/2024 arguing against neoplasm and favring either subacute hematoma or abscess in the appropriate clinical setting. - Elevated WBC 13.2 at outside hospital, 11.4 this AM and afebrile - IR consulted for possible abscess, low suspicion of abscess based on imaging appearance. No indication for drainage at this time; if patient clinically worsens, could consider MRI w/ contrast but not currently indicated. Imaging finding likely splenic hematoma vs cyst - UA with no concern for infection so no reflex to culture - Blood cultures from OSH revealed 1/2 cultures positive stain for gram positive cocci. Repeat blood cultures collected here revealed similar findings, 1/2 positive for gram cocci in pairs and chainsand later positive for enterococci faecalis - TTE revealed an echodensity 10 mm x 12 mm attached to the anterior mitral leaflet, possible differential includes vegetation, torn chordae. - Denies any IVDU, other drug use - Had tooth extraction 3 months ago, was scheduled for additional tooth extraction on 02/27 but missed while admitted - IR consulted for possible abscess, low suspicion of abscess based on imaging appearance. No indication for drainage at this time; if patient clinically worsens, could consider MRI w/ contrast but not currently indicated - Imaging finding likely splenic hematoma vs cyst - ACS consulted but low suspicion of abscess, given TTE results suggesting more secondary to infectious endocarditis - Per ID request and positive lab cultures for enterococcus faecalis, vancomycin and zosyn were stopped PLAN: - Switch antibiotics to ampicillin and ceftriaxone - SINTIA ordered to evaluate for infectious source on 03/06 - Per ID consult, repeat blood cultures - MRSA negative - CTS following and would appreciate recs * Assessment & Plan Note - Cj Carpenter MD - 03/05/2025 1:00 PM CDT Associated Problem(s): Endocarditis, suspected - CT Abd/Pelvis, OSH (02/28/25): New 8.1 x 5.2 x 5.1 cm relatively low- attentuation likely complex cystic lesion in the inferior spleen. This has developed since 12/05/2024 arguing against neoplasm and favring either subacute hematoma or abscess in the appropriate clinical setting. - Elevated WBC 13.2 at outside hospital, 11.4 this AM and afebrile - IR consulted for possible abscess, low suspicion of abscess based on imaging appearance. No indication for drainage at this time; if patient clinically worsens, could consider MRI w/ contrast but not currently indicated. Imaging finding likely splenic hematoma vs cyst - UA with no concern for infection so no reflex to culture - Blood cultures from OSH revealed 1/2 cultures positive stain for gram positive cocci. Repeat blood cultures collected here revealed similar findings, 1/2 positive for gram cocci in pairs and chainsand later positive for enterococci faecalis - TTE revealed an echodensity 10 mm x 12 mm attached to the anterior mitral leaflet, possible differential includes vegetation, torn chordae. - Denies any IVDU, other drug use - Had tooth extraction 3 months ago, was scheduled for additional tooth extraction on 02/27 but missed while admitted - IR consulted for possible abscess, low suspicion of abscess based on imaging appearance. No indication for drainage at this time; if patient clinically worsens, could consider MRI w/ contrast but not currently indicated - Imaging finding likely splenic hematoma vs cyst - ACS consulted but low suspicion of abscess, given TTE results suggesting more secondary to infectious endocarditis - Per ID request and positive lab cultures for enterococcus faecalis, vancomycin and zosyn were stopped PLAN: - Switch antibiotics to ampicillin and ceftriaxone - SINTIA ordered to evaluate for infectious source on 03/06 - Per ID consult, repeat blood cultures - MRSA negative - CTS following and would appreciate recs * Assessment & Plan Note - Cj Carpenter MD - 03/05/2025 1:00 PM CDT Associated Problem(s): HTN (hypertension) - Home Rx: Metoprolol succinate 25 mg PO QHS, amlodipine 5 mg PO QD - BP stable, 119-126 systolic this AM PLAN: - Continue home Rx * Assessment & Plan Note - Cj Carpenter MD - 03/05/2025 1:00 PM CDT Associated Problem(s): COPD (chronic obstructive pulmonary disease) (HCC) - Home meds include Trelegy, fluticasone propionate PLAN: - Incruse and symbicort while in-patient * Assessment & Plan Note - Cj Carpenter MD - 03/05/2025 1:00 PM CDT Associated Problem(s): CKD (chronic kidney disease) stage 5, GFR less than 15 ml/min ([facility]) Cr-3.44-3.62 PLAN: - avoid nephrotoxic agents and continue tight control of blood pressures * Assessment & Plan Note - Cj Carpenter MD - 03/04/2025 2:24 PM CDT Associated Problem(s): Abscess of spleen - CT Abd/Pelvis, OSH (02/28/25): New 8.1 x 5.2 x 5.1 cm relatively low- attentuation likely complex cystic lesion in the inferior spleen. This has developed since 12/05/2024 arguing against neoplasm and favring either subacute hematoma or abscess in the appropriate clinical setting. - Elevated WBC 13.2 at outside hospital, 11.4 this AM and afebrile - IR consulted for possible abscess, low suspicion of abscess based on imaging appearance. No indication for drainage at this time; if patient clinically worsens, could consider MRI w/ contrast but not currently indicated. Imaging finding likely splenic hematoma vs cyst - UA with no concern for infection so no reflex to culture - Blood cultures from OSH revealed 1/2 cultures positive stain for gram positive cocci. Repeat blood cultures collected here revealed similar findings, 1/2 positive for gram cocci in pairs and chainsand later positive for enterococci faecalis - TTE revealed an echodensity 10 mm x 12 mm attached to the anterior mitral leaflet, possible differential includes vegetation, torn chordae. - Denies any IVDU, other drug use - Had tooth extraction 3 months ago, was scheduled for additional tooth extraction on 02/27 but missed while admitted - IR consulted for possible abscess, low suspicion of abscess based on imaging appearance. No indication for drainage at this time; if patient clinically worsens, could consider MRI w/ contrast but not currently indicated - Imaging finding likely splenic hematoma vs cyst - ACS consulted but low suspicion of abscess, given TTE results suggesting more secondary to infectious endocarditis - Per ID request and positive lab cultures for enterococcus faecalis, vancomycin and zosyn were stopped PLAN: - Switch antibiotics to ampicillin and ceftriaxone - SINTIA ordered to evaluate for infectious source on 03/06 - Per ID consult, repeat blood cultures - MRSA negative - CTS following and would appreciate recs * Assessment & Plan Note - Cj Carpenter MD - 03/04/2025 2:24 PM CDT Associated Problem(s): Diverticulosis - CT Abd/Pelvis, OSH (02/28/25): New 8.1 x 5.2 x 5.1 cm relatively low- attentuation likely complex cystic lesion in the inferior spleen. This has developed since 12/05/2024 arguing against neoplasm and favring either subacute hematoma or abscess in the appropriate clinical setting. - Elevated WBC 13.2 at outside hospital, 11.4 this AM and afebrile - IR consulted for possible abscess, low suspicion of abscess based on imaging appearance. No indication for drainage at this time; if patient clinically worsens, could consider MRI w/ contrast but not currently indicated. Imaging finding likely splenic hematoma vs cyst - UA with no concern for infection so no reflex to culture - Blood cultures from OSH revealed 1/2 cultures positive stain for gram positive cocci. Repeat blood cultures collected here revealed similar findings, 1/2 positive for gram cocci in pairs and chainsand later positive for enterococci faecalis - TTE revealed an echodensity 10 mm x 12 mm attached to the anterior mitral leaflet, possible differential includes vegetation, torn chordae. - Denies any IVDU, other drug use - Had tooth extraction 3 months ago, was scheduled for additional tooth extraction on 02/27 but missed while admitted - IR consulted for possible abscess, low suspicion of abscess based on imaging appearance. No indication for drainage at this time; if patient clinically worsens, could consider MRI w/ contrast but not currently indicated - Imaging finding likely splenic hematoma vs cyst - ACS consulted but low suspicion of abscess, given TTE results suggesting more secondary to infectious endocarditis - Per ID request and positive lab cultures for enterococcus faecalis, vancomycin and zosyn were stopped PLAN: - Switch antibiotics to ampicillin and ceftriaxone - SINTIA ordered to evaluate for infectious source on 03/06 - Per ID consult, repeat blood cultures - MRSA negative - CTS following and would appreciate recs * Assessment & Plan Note - Cj Carpenter MD - 03/04/2025 2:24 PM CDT Associated Problem(s): Enterococcal bacteremia - CT Abd/Pelvis, OSH (02/28/25): New 8.1 x 5.2 x 5.1 cm relatively low- attentuation likely complex cystic lesion in the inferior spleen. This has developed since 12/05/2024 arguing against neoplasm and favring either subacute hematoma or abscess in the appropriate clinical setting. - Elevated WBC 13.2 at outside hospital, 11.4 this AM and afebrile - IR consulted for possible abscess, low suspicion of abscess based on imaging appearance. No indication for drainage at this time; if patient clinically worsens, could consider MRI w/ contrast but not currently indicated. Imaging finding likely splenic hematoma vs cyst - UA with no concern for infection so no reflex to culture - Blood cultures from OSH revealed 1/2 cultures positive stain for gram positive cocci. Repeat blood cultures collected here revealed similar findings, 1/2 positive for gram cocci in pairs and chainsand later positive for enterococci faecalis - TTE revealed an echodensity 10 mm x 12 mm attached to the anterior mitral leaflet, possible differential includes vegetation, torn chordae. - Denies any IVDU, other drug use - Had tooth extraction 3 months ago, was scheduled for additional tooth extraction on 02/27 but missed while admitted - IR consulted for possible abscess, low suspicion of abscess based on imaging appearance. No indication for drainage at this time; if patient clinically worsens, could consider MRI w/ contrast but not currently indicated - Imaging finding likely splenic hematoma vs cyst - ACS consulted but low suspicion of abscess, given TTE results suggesting more secondary to infectious endocarditis - Per ID request and positive lab cultures for enterococcus faecalis, vancomycin and zosyn were stopped PLAN: - Switch antibiotics to ampicillin and ceftriaxone - SINTIA ordered to evaluate for infectious source on 03/06 - Per ID consult, repeat blood cultures - MRSA negative - CTS following and would appreciate recs * Assessment & Plan Note - Cj Carpenter MD - 03/04/2025 2:24 PM CDT Associated Problem(s): Mitral valve vegetation (HCC) - CT Abd/Pelvis, OSH (02/28/25): New 8.1 x 5.2 x 5.1 cm relatively low- attentuation likely complex cystic lesion in the inferior spleen. This has developed since 12/05/2024 arguing against neoplasm and favring either subacute hematoma or abscess in the appropriate clinical setting. - Elevated WBC 13.2 at outside hospital, 11.4 this AM and afebrile - IR consulted for possible abscess, low suspicion of abscess based on imaging appearance. No indication for drainage at this time; if patient clinically worsens, could consider MRI w/ contrast but not currently indicated. Imaging finding likely splenic hematoma vs cyst - UA with no concern for infection so no reflex to culture - Blood cultures from OSH revealed 1/2 cultures positive stain for gram positive cocci. Repeat blood cultures collected here revealed similar findings, 1/2 positive for gram cocci in pairs and chainsand later positive for enterococci faecalis - TTE revealed an echodensity 10 mm x 12 mm attached to the anterior mitral leaflet, possible differential includes vegetation, torn chordae. - Denies any IVDU, other drug use - Had tooth extraction 3 months ago, was scheduled for additional tooth extraction on 02/27 but missed while admitted - IR consulted for possible abscess, low suspicion of abscess based on imaging appearance. No indication for drainage at this time; if patient clinically worsens, could consider MRI w/ contrast but not currently indicated - Imaging finding likely splenic hematoma vs cyst - ACS consulted but low suspicion of abscess, given TTE results suggesting more secondary to infectious endocarditis - Per ID request and positive lab cultures for enterococcus faecalis, vancomycin and zosyn were stopped PLAN: - Switch antibiotics to ampicillin and ceftriaxone - SINTIA ordered to evaluate for infectious source on 03/06 - Per ID consult, repeat blood cultures - MRSA negative - CTS following and would appreciate recs * Assessment & Plan Note - Cj Carpenter MD - 03/04/2025 2:24 PM CDT Associated Problem(s): Endocarditis, suspected - CT Abd/Pelvis, OSH (02/28/25): New 8.1 x 5.2 x 5.1 cm relatively low- attentuation likely complex cystic lesion in the inferior spleen. This has developed since 12/05/2024 arguing against neoplasm and favring either subacute hematoma or abscess in the appropriate clinical setting. - Elevated WBC 13.2 at outside hospital, 11.4 this AM and afebrile - IR consulted for possible abscess, low suspicion of abscess based on imaging appearance. No indication for drainage at this time; if patient clinically worsens, could consider MRI w/ contrast but not currently indicated. Imaging finding likely splenic hematoma vs cyst - UA with no concern for infection so no reflex to culture - Blood cultures from OSH revealed 1/2 cultures positive stain for gram positive cocci. Repeat blood cultures collected here revealed similar findings, 1/2 positive for gram cocci in pairs and chainsand later positive for enterococci faecalis - TTE revealed an echodensity 10 mm x 12 mm attached to the anterior mitral leaflet, possible differential includes vegetation, torn chordae. - Denies any IVDU, other drug use - Had tooth extraction 3 months ago, was scheduled for additional tooth extraction on 02/27 but missed while admitted - IR consulted for possible abscess, low suspicion of abscess based on imaging appearance. No indication for drainage at this time; if patient clinically worsens, could consider MRI w/ contrast but not currently indicated - Imaging finding likely splenic hematoma vs cyst - ACS consulted but low suspicion of abscess, given TTE results suggesting more secondary to infectious endocarditis - Per ID request and positive lab cultures for enterococcus faecalis, vancomycin and zosyn were stopped PLAN: - Switch antibiotics to ampicillin and ceftriaxone - SINTIA ordered to evaluate for infectious source on 03/06 - Per ID consult, repeat blood cultures - MRSA negative - CTS following and would appreciate recs * Assessment & Plan Note - Cj Carpenter MD - 03/04/2025 2:24 PM CDT Associated Problem(s): HTN (hypertension) - Home Rx: Metoprolol succinate 25 mg PO QHS, amlodipine 5 mg PO QD - BP stable, 119-126 systolic this AM PLAN: - Continue home Rx * Assessment & Plan Note - Cj Carpenter MD - 03/04/2025 2:24 PM CDT Associated Problem(s): COPD (chronic obstructive pulmonary disease) ([facility]) - Home meds include Trelegy, fluticasone propionate PLAN: - Incruse and symbicort while in-patient * Assessment & Plan Note - Cj Carpenter MD - 03/04/2025 2:24 PM CDT Associated Problem(s): CKD (chronic kidney disease) stage 5, GFR less than 15 ml/min ([facility]) Cr-3.44-3.62 PLAN: - avoid nephrotoxic agents and continue tight control of blood pressures * Assessment & Plan Note - Tammie Bolaños MD - 03/03/2025 12:47 PM CDTAssociated Problem(s): Enterococcal bacteremia - CT Abd/Pelvis, OSH (02/28/25): New 8.1 x 5.2 x 5.1 cm relatively low- attentuation likely complex cystic lesion in the inferior spleen. This has developed since 12/05/2024 arguing against neoplasm and favring either subacute hematoma or abscess in the appropriate clinical setting. - Elevated WBC 13.2 at outside hospital, 11.4 this AM and afebrile - IR consulted for possible abscess, low suspicion of abscess based on imaging appearance. No indication for drainage at this time; if patient clinically worsens, could consider MRI w/ contrast but not currently indicated. Imaging finding likely splenic hematoma vs cyst - UA with no concern for infection so no reflex to culture - Blood cultures from OSH revealed 1/2 cultures positive stain for gram positive cocci. Repeat blood cultures collected here revealed similar findings, 1/2 positive for gram cocci in pairs and chainsand later positive for enterococci faecalis - ECHO revealed an echodensity 10 mm x 12 mm attached to the anterior mitral leaflet, possible differential includes vegetation, torn chordae. - Denies any IVDU, other drug use - Had tooth extraction 3 months ago, was scheduled for additional tooth extraction on 02/27 but missed while admitted PLAN: - Discontinue zosyn, will start CTX and continue vancomycin - ID consulted, will f/u on recs - Cardiology consulted given new MV vegetation, will f/u on recs, SINTIA ordered for further evaluation, scheduled for 03/06, will be NPO at midnight prior - UDS ordered - Panorex ordered - TTE to evaluate for other infectious source * Assessment & Plan Note - Tammie Bolaños MD - 03/03/2025 12:47 PM CDTAssociated Problem(s): Mitral valve vegetation (HCC) - CT Abd/Pelvis, OSH (02/28/25): New 8.1 x 5.2 x 5.1 cm relatively low- attentuation likely complex cystic lesion in the inferior spleen. This has developed since 12/05/2024 arguing against neoplasm and favring either subacute hematoma or abscess in the appropriate clinical setting. - Elevated WBC 13.2 at outside hospital, 11.4 this AM and afebrile - IR consulted for possible abscess, low suspicion of abscess based on imaging appearance. No indication for drainage at this time; if patient clinically worsens, could consider MRI w/ contrast but not currently indicated. Imaging finding likely splenic hematoma vs cyst - UA with no concern for infection so no reflex to culture - Blood cultures from OSH revealed 1/2 cultures positive stain for gram positive cocci. Repeat blood cultures collected here revealed similar findings, 1/2 positive for gram cocci in pairs and chainsand later positive for enterococci faecalis - ECHO revealed an echodensity 10 mm x 12 mm attached to the anterior mitral leaflet, possible differential includes vegetation, torn chordae. - Denies any IVDU, other drug use - Had tooth extraction 3 months ago, was scheduled for additional tooth extraction on 02/27 but missed while admitted PLAN: - Discontinue zosyn, will start CTX and continue vancomycin - ID consulted, will f/u on recs - Cardiology consulted given new MV vegetation, will f/u on recs, SINTIA ordered for further evaluation, scheduled for 03/06, will be NPO at midnight prior - UDS ordered - Panorex ordered - TTE to evaluate for other infectious source * Assessment & Plan Note - Tammie Bolaños MD - 03/03/2025 12:47 PM CDTAssociated Problem(s): Endocarditis, suspected - CT Abd/Pelvis, OSH (02/28/25): New 8.1 x 5.2 x 5.1 cm relatively low- attentuation likely complex cystic lesion in the inferior spleen. This has developed since 12/05/2024 arguing against neoplasm and favring either subacute hematoma or abscess in the appropriate clinical setting. - Elevated WBC 13.2 at outside hospital, 11.4 this AM and afebrile - IR consulted for possible abscess, low suspicion of abscess based on imaging appearance. No indication for drainage at this time; if patient clinically worsens, could consider MRI w/ contrast but not currently indicated. Imaging finding likely splenic hematoma vs cyst - UA with no concern for infection so no reflex to culture - Blood cultures from OSH revealed 1/2 cultures positive stain for gram positive cocci. Repeat blood cultures collected here revealed similar findings, 1/2 positive for gram cocci in pairs and chainsand later positive for enterococci faecalis - ECHO revealed an echodensity 10 mm x 12 mm attached to the anterior mitral leaflet, possible differential includes vegetation, torn chordae. - Denies any IVDU, other drug use - Had tooth extraction 3 months ago, was scheduled for additional tooth extraction on 02/27 but missed while admitted PLAN: - Discontinue zosyn, will start CTX and continue vancomycin - ID consulted, will f/u on recs - Cardiology consulted given new MV vegetation, will f/u on recs, SINTIA ordered for further evaluation, scheduled for 03/06, will be NPO at midnight prior - UDS ordered - Panorex ordered - TTE to evaluate for other infectious source * Assessment & Plan Note - Tammie Bolaños MD - 03/03/2025 12:47 PM CDTAssociated Problem(s): Abscess of spleen - CT Abd/Pelvis, OSH (02/28/25): New 8.1 x 5.2 x 5.1 cm relatively low- attentuation likely complex cystic lesion in the inferior spleen. This has developed since 12/05/2024 arguing against neoplasm and favring either subacute hematoma or abscess in the appropriate clinical setting. - Elevated WBC 13.2 at outside hospital, 11.4 this AM and afebrile - IR consulted for possible abscess, low suspicion of abscess based on imaging appearance. No indication for drainage at this time; if patient clinically worsens, could consider MRI w/ contrast but not currently indicated. Imaging finding likely splenic hematoma vs cyst - UA with no concern for infection so no reflex to culture - Blood cultures from OSH revealed 1/2 cultures positive stain for gram positive cocci. Repeat blood cultures collected here revealed similar findings, 1/2 positive for gram cocci in pairs and chainsand later positive for enterococci faecalis - ECHO revealed an echodensity 10 mm x 12 mm attached to the anterior mitral leaflet, possible differential includes vegetation, torn chordae. - Denies any IVDU, other drug use - Had tooth extraction 3 months ago, was scheduled for additional tooth extraction on 02/27 but missed while admitted PLAN: - Discontinue zosyn, will start CTX and continue vancomycin - ID consulted, will f/u on recs - Cardiology consulted given new MV vegetation, will f/u on recs, SINTIA ordered for further evaluation, scheduled for 03/06, will be NPO at midnight prior - UDS ordered - Panorex ordered - TTE to evaluate for other infectious source * Assessment & Plan Note - Tammie Bolaños MD - 03/03/2025 12:47 PM CDTAssociated Problem(s): Diverticulosis - CT Abd/Pelvis, OSH (02/28/25): New 8.1 x 5.2 x 5.1 cm relatively low- attentuation likely complex cystic lesion in the inferior spleen. This has developed since 12/05/2024 arguing against neoplasm and favring either subacute hematoma or abscess in the appropriate clinical setting. - Elevated WBC 13.2 at outside hospital, 11.4 this AM and afebrile - IR consulted for possible abscess, low suspicion of abscess based on imaging appearance. No indication for drainage at this time; if patient clinically worsens, could consider MRI w/ contrast but not currently indicated. Imaging finding likely splenic hematoma vs cyst - UA with no concern for infection so no reflex to culture - Blood cultures from OSH revealed 1/2 cultures positive stain for gram positive cocci. Repeat blood cultures collected here revealed similar findings, 1/2 positive for gram cocci in pairs and chainsand later positive for enterococci faecalis - ECHO revealed an echodensity 10 mm x 12 mm attached to the anterior mitral leaflet, possible differential includes vegetation, torn chordae. - Denies any IVDU, other drug use - Had tooth extraction 3 months ago, was scheduled for additional tooth extraction on 02/27 but missed while admitted PLAN: - Discontinue zosyn, will start CTX and continue vancomycin - ID consulted, will f/u on recs - Cardiology consulted given new MV vegetation, will f/u on recs, SINTIA ordered for further evaluation, scheduled for 03/06, will be NPO at midnight prior - UDS ordered - Panorex ordered - TTE to evaluate for other infectious source * Assessment & Plan Note - Tammie Bolaños MD - 03/03/2025 11:52 AM CDTAssociated Problem(s): HTN (hypertension) - Home Rx: Metoprolol succinate 25 mg PO QHS, amlodipine 5 mg PO QD - BP stable, 119-126 systolic this AM PLAN: - Continue home Rx * Assessment & Plan Note - Tammie Bolaños MD - 03/03/2025 11:52 AM CDTAssociated Problem(s): COPD (chronic obstructive pulmonary disease) (HCC) - Home meds include Trelegy, fluticasone propionate PLAN: - Incruse and symbicort while in-patient * Assessment & Plan Note - Tammie Bolaños MD - 03/02/2025 1:46 PM CDTAssociated Problem(s): Abscess of spleen - Present on arrival - CT Abd/Pelvis, OSH (02/28/25): New 8.1 x 5.2 x 5.1 cm relatively low- attentuation likely complex cystic lesion in the inferior spleen. This has developed since 12/05/2024 arguing against neoplasm and favring either subacute hematoma or abscess in the appropriate clinical setting. - Elevated WBC 13.2 at outside hospital, 11.4 this AM and afebrile - No pain on exam this AM, UA with no concern for infection so no reflex to culture - IR consulted for possible abscess, low suspicion of abscess based on imaging appearance. No indication for drainage at this time; if patient clinically worsens, could consider MRI w/ contrast but not currently indicated - Imaging finding likely splenic hematoma vs cyst PLAN: - Empiric Vancomycin and Zosyn, f/u with blood cultures to see if antibiotics can be deescalated - TTE to evaluate for other infectious source - Follow up blood cultures - Follow up MRSA PCR; discontinue Vancomycin if negative * Assessment & Plan Note - Tammie Bolaños MD - 03/02/2025 1:46 PM CDTAssociated Problem(s): HTN (hypertension) - Home Rx: Metoprolol succinate 25 mg PO QHS - BP stable, 119-126 systolic this AM PLAN: - Continue home Rx * Assessment & Plan Note - Tammie Bolaños MD - 03/02/2025 1:46 PM CDTAssociated Problem(s): Diverticulosis - Present on arrival - CT Abd/Pelvis, OSH (02/28/25): New 8.1 x 5.2 x 5.1 cm relatively low- attentuation likely complex cystic lesion in the inferior spleen. This has developed since 12/05/2024 arguing against neoplasm and favring either subacute hematoma or abscess in the appropriate clinical setting. - Elevated WBC 13.2 at outside hospital, 11.4 this AM and afebrile - No pain on exam this AM, UA with no concern for infection so no reflex to culture - IR consulted for possible abscess, low suspicion of abscess based on imaging appearance. No indication for drainage at this time; if patient clinically worsens, could consider MRI w/ contrast but not currently indicated - Imaging finding likely splenic hematoma vs cyst PLAN: - Empiric Vancomycin and Zosyn, f/u with blood cultures to see if antibiotics can be deescalated - TTE to evaluate for other infectious source - Follow up blood cultures - Follow up MRSA PCR; discontinue Vancomycin if negative * Assessment & Plan Note - Fan Sanchez MD - 03/02/2025 2:37 AM CDT Associated Problem(s): Abscess of spleen - Present on arrival - CT Abd/Pelvis, OSH (02/28/25): New 8.1 x 5.2 x 5.1 cm relatively low- attentuation likely complex cystic lesion in the inferior spleen. This has developed since 12/05/2024 arguing against neoplasm and favring either subacute hematoma or abscess in the appropriate clinical setting. - Elevated WBC 13.2 at outside hospital PLAN: - Empiric Vancomycin and Zosyn - Consult IR for asbcess - Follow up Monospot test to r/o EBV - Follow up blood cultures - Follow up MRSA PCR; discontinue Vancomycin if negative * Assessment & Plan Note - Fan Sanchez MD - 03/02/2025 1:45 AM CDT Associated Problem(s): Diverticulitis (Resolved 03/02/2025) - Present on arrival - CT Abd/Pelvis, OSH (02/28/25): Moderate diverticulosis without evidence of diverticulitis. Moderate bilateral fat-containing inguinal hernia. PLAN: - Empiric Vancomycin and Zosyn * Assessment & Plan Note - Fan Sanchez MD - 03/01/2025 11:46 PM CDT Associated Problem(s): HTN (hypertension) - Home Rx: Metoprolol succinate 25 mg PO QHS PLAN: - Continue home Rx documented in this encounter Administered Medications Inactive Administered Medications - up to 3 most recent administrations Medication Order MAR Action Action Date Dose Rate Site 0.9% NaCl infusion at 75 mL/hr, Intravenous, CONTINUOUS, Starting on Thu03/15/25 at 1045, Until Thu03/15/25 at 1644 $ New Bag/Syringe 03/15/2025 10:52 AM CDT 75 mL/hr 0.9% NaCl infusion Intravenous, CONTINUOUS PRN, Starting on Thu03/22/25 at 1210, Until Thu03/22/25 at 1210, Intra-op $ New Bag/Syringe 03/22/2025 12:10 PM CDT 250 mL 0.9% NaCl injection 1-10 mL 1-10 mL, Intracatheter, PRN, Other, peripheral line flush, Starting on Thu03/15/25 at 1804, Until Thu03/23/25 at 1636, Flush peripheral IV catheter with 1-10 mL of normal saline before and after medications and prn to clear blood from the line or to verify patency. $ Given 03/23/2025 9:55 AM CDT 10 mL 0.9% NaCl injection 3 mL 3 mL, Intracatheter, EVERY 8 HOURS, First dose on Thu03/01/25 at 2230, Until Discontinued, Flush peripheral IV catheter with 3 mL of normal saline every 8 hours. $ Given 03/15/2025 6:10 AM CDT 3 mL $ Given 03/14/2025 8:46 PM CDT 3 mL $ Given 03/14/2025 1:54 PM CDT 3 mL 0.9% NaCl injection 3 mL 3 mL, Intracatheter, EVERY 8 HOURS, First dose on Thu03/15/25 at 2200, Until Discontinued, Flush peripheral IV catheter with 3 mL of normal saline every 8 hours. $ Given 03/23/2025 2:43 PM CDT 3 mL $ Given 03/23/2025 6:02 AM CDT 3 mL $ Given 03/22/2025 9:08 PM CDT 3 mL acetaminophen (Ofirmev) injection 1,000 mg 1,000 mg, at 400 mL/hr, Intravenous, EVERY 6 HOURS, 4 doses, First dose on Thu03/15/25 at 1215, Last dose on Thu03/16/25 at 0615, Patient preference for lesser PRN pain meds may be honored when the patient requests a less strong medication, a lower dose, or a less intrusive route of administration when the lesser drug, dose and route have been ordered for the patient. This patient request must be documented in the MAR. If both oral and IV options are ordered for the same pain severity, give oral first unless patient cannot tolerate oral intake, Does your patient have an order for nothing by mouth or per tube (including meds) and a contraindication to rectal administration? Yes, Does your patient have a contraindication to NSAIDs (ie CrCl < 60 ml/min, increased risk of bleed, hypersensitivity to ASA or NSAIDs)? Yes, Is your patient either post-op colorectal, cardio-thoracic, or a case lasting > 5 hours? Yes $ New Bag/Syringe 03/16/2025 6:42 AM CDT 1,000 mg 400 mL/hr Current Rate 03/16/2025 12:07 AM CDT 400 mL/hr Current Rate 03/16/2025 12:07 AM CDT 400 mL/hr acetaminophen (Tylenol) tablet 650 mg 650 mg, Oral, EVERY 4 HOURS PRN, Mild Pain, Starting on 03/04/25 at 1728, Until 03/15/25 at 1722, Patient preference for lesser PRN pain meds may be honored when the patient requests a less strong medication, a lower dose, or a less intrusive route of administration when the lesser drug, dose and route have been ordered for the patient. This patient request must be documented in the MAR. If both oral and IV options are ordered for the same pain severity, give oral first unless patient cannot tolerate oral intake $ Given 03/08/2025 9:23 A M CDT 650 mg $ Given 03/07/2025 10:05 AM CDT 650 mg $ Given 03/04/2025 6:33 PM CDT 650 mg albumin human 5 % infusion 12.5 g 12.5 g, at 240 mL/hr, Intravenous, ONCE, 1 dose, On Thu03/15/25 at 2045 Current Rate 03/15/2025 9:00 PM CDT 240 mL/hr Current Rate 03/15/2025 8:31 PM CDT 240 mL/hr $ New Bag/Syringe 03/15/2025 8:28 PM CDT 12.5 g 240 mL /hr albumin human 5 % infusion 12.5 g 12.5 g, at 125 mL/hr, Intravenous, ONCE, 1 dose, On Dana 03/16/25 at 0115 Current Rate 03/16/2025 2:00 AM CDT 125 mL/hr Current Rate 03/16/2025 1:00 AM CDT 125 mL/hr Current Rate 03/16/2025 12:49 AM CDT 125 mL/hr albumin human 5 % infusion 12.5 g 12.5 g, at 999 mL/hr, Intravenous, ONCE, 1 dose, On Dana 03/16/25 at 1330 Rate Change 03/16/2025 1:33 PM CDT 5 mL/hr $ New Bag/Syringe 03/16/2025 1:18 PM CDT 12.5 g 999 mL /hr albumin human 5 % infusion 12.5 g 12.5 g, at 999 mL/hr, Intravenous, ONCE, 1 dose, On Thu03/16/25 at 1715 Current Rate 03/16/2025 5:00 PM CDT 998.89 mL/h r $ New Bag/Syringe 03/16/2025 4:58 PM CDT 12.5 g 999 mL /hr albumin human 5 % infusion 25 g 25 g, at 240 mL/hr, Intravenous, ONCE, 1 dose, On Thu03/15/25 at 1815 Rate Change 03/15/2025 7:45 PM CDT 300 mL/hr $ New Bag/Syringe 03/15/2025 6:02 PM CDT 25 g 240 mL /hr albumin human 5% infusion ADS Med 1 dose, Starting on Thu03/15/25 at 2024, Until Thu03/15/25 at 2027, Created by soraya zapien albuterol-ipratropium (Duo-Neb) nebulizer solution 3 mL 3 mL, Inhalation, EVERY 4 HOURS, First dose (after last modification) on Thu03/15/25 at 2000, Until Discontinued, Post-op $ Given 03/16/2025 5:21 AM CDT 3 mL $ Given 03/16/2025 12:17 AM CDT 3 mL $ Given 03/15/2025 10:35 PM CDT 3 mL albuterol-ipratropium (Duo-Neb) nebulizer solution 3 mL 3 mL, Inhalation, EVERY 4 HOURS PRN, Shortness of Breath, Wheezing, Starting on Thu03/16/25 at 0945, Until Thu03/23/25 at 1636 amLODIPine (Norvasc) tablet 5 mg 5 mg, Oral, DAILY, First dose on Thu03/03/25 at 0900, Until Discontinued, On hold since Thu03/15/2025 at 0921 until manually unheld $ Given 03/14/2025 8:11 AM C DT 5 mg $ Given 03/13/2025 8:10 AM CDT 5 mg $ Given 03/12/2025 10:14 AM CDT 5 mg ampicillin (Omnipen) 2,000 mg in NaCl IV 0.9 % 100 mL IVPB 2,000 mg (2 g), at 200 mL/hr, Intravenous, EVERY 8 HOURS, First dose on Thu03/03/25 at 1515, Until Discontinued, Indication for anti-infective therapy: Suspected infection, Site of anti-infective therapy: Other, Blood, Other site of infection (free text): Endocarditis $ New Bag/Syringe 03/23/2025 2:42 PM CDT 2,000 mg 200 mL/hr $ New Bag/Syringe 03/23/2025 6:06 AM CDT 2,000 mg 200 mL /hr $ New Bag/Syringe 03/22/2025 9:14 PM CDT 2,000 mg 200 mL /hr aspirin chew tablet 81 mg 81 mg, Oral, DAILY, First dose on Thu03/15/25 at 1145, Until Discontinued $ Given 03/23/2025 9:52 AM CDT 81 mg $ Given 03/22/2025 9:14 AM CDT 81 mg $ Given 03/21/2025 8:30 AM CDT 81 mg aspirin suppository 300 mg 300 mg, Rectal, ONCE, 1 dose, On Thu03/15/25 at 1730, While intubated, Post-op $ Given 03/15/2025 5:43 PM CDT 300 mg atorvastatin (Lipitor) tablet 40 mg 40 mg, Oral, AT BEDTIME, First dose on Thu03/16/25 at 2100, Until Discontinued, On hold since Thu03/17/2025 at 0659 until manually unheld $ Given 03/16/2025 8:20 PM CDT 40 mg budesonide-formoterol (Symbicort) 160-4.5 MCG/ACT inhaler 2 puff 2 puff, Inhalation, 2 TIMES DAILY, First dose on Thu03/02/25 at 0230, Until Discontinued, Rinse mouth after use. WASTE DISPOSAL INSTRUCTION: Send to Pharmacy for Disposal. $ Given 03/14/2025 8:23 PM CDT 2 puffs $ Given 03/14/2025 9:00 AM CDT 2 puffs $ Given 03/13/2025 8:31 AM CDT 2 puffs calcium gluconate 2 g in 100 mL NaCl 0.675% 2 g, at 100 mL/hr, Intravenous, PRN, iCa less than 1.2, Starting on Thu03/15/25 at 1722, Until Thu03/23/25 at 1636, As needed for iCa less than 1.2, recheck iCa in 30 minutes and repeat to maintain iCa greater than 1.2 $ New Bag/Syringe 03/20/2025 4:11 AM CDT 2 g 100 mL/hr Current Rate 03/16/2025 5:00 AM CDT 100 mL/hr $ New Bag/Syringe 03/16/2025 4:35 AM CDT 2 g 100 mL /hr ceFAZolin (Ancef) 2 g in sterile water (PF) 20 mL syringe 2 g, Intravenous, EVERY 12 HOURS, 2 doses, First dose on Thu03/15/25 at 2100, Last dose on Thu03/16/25 at 0900, Infuse over 3-5 minutes. Dilute vial with 20 ml solution for a final concentration of 100 mg/ml., Indication for anti-infective therapy: Surgical prophylaxis, Post-op $ Given 03/16/2025 8:37 AM CDT 2 g $ Given 03/15/2025 8:39 PM CDT 2 g cefTRIAXone (Rocephin) syringe 2,000 mg 2,000 mg (2 g), Intravenous, EVERY 24 HOURS, First dose on Thu03/03/25 at 1030, Until Discontinued, Infuse over 3-5 minutes. Mix with 19.2 mL diluent for final concentration 2000 mg/20 mL., Indication for anti-infective therapy: Suspected infection, Site of anti-infective therapy: Blood $ Given 03/03/2025 11:15 AM CDT 2,000 mg cefTRIAXone (Rocephin) syringe 2,000 mg 2,000 mg (2 g), Intravenous, EVERY 12 HOURS, First dose (after last modification) on Thu03/03/25 at 2100, Until Discontinued, Infuse over 3-5 minutes. Mix with 19.2 mL diluent for final concentration 2000 mg/20 mL., Indication for anti-infective therapy: Suspected infection, Site of anti-infective therapy: Blood $ Given 03/23/2025 9:51 AM CDT 2,000 mg $ Given 03/22/2025 9:02 PM CDT 2,000 mg $ Given 03/22/2025 9:14 AM CDT 2,000 mg chlorhexidine (Peridex) 0.12 % oral solution 15 mL 15 mL, Swish and Spit, 2 TIMES DAILY, 730 doses, First dose on Thu03/14/25 at 2100, Last dose on Thu03/14/26 at 0900, 15 mL oral rinse. Swish for 30 seconds and spit. Do not rinse, brush, or eat immediately after use. . WASTE DISPOSAL INSTRUCTIONS: Black Bin Disposal required., Pre-op $ Given 03/14/2025 8:39 PM CDT 15 mL chlorhexidine (Peridex) 0.12 % oral solution 15 mL 15 mL, Swish and Spit, 2 TIMES DAILY, 730 doses, First dose on Thu03/15/25 at 2100, Last dose on Thu03/15/26 at 0900, 15 mL oral rinse. Swish for 30 seconds and spit. Do not rinse, brush, or eat immediately after use. . WASTE DISPOSAL INSTRUCTIONS: Black Bin Disposal required., Post-op $ Given 03/15/2025 8:37 PM CDT 15 mL dextrose 5 % and lactated ringers infusion at 100 mL/hr, Intravenous, CONTINUOUS, Starting on Thu03/09/25 at 2330, Until Thu03/10/25 at 1529 $ New Bag/Syringe 03/10/2025 12:19 AM CDT 100 mL/hr dextrose IV 12.5 g 12.5 g, Intravenous, PRN, Other, Bedside Glucose less than 70 mg/dL -If NOT able to eat and/or NPO and with IV Access, Starting on Thu03/16/25 at 0943, Until Thu03/23/25 at 1636, If NOT able to eat and/or NPO and with IV Access: For Bedside Glucose 54-69 mg/dL give 12.5 g Dextrose IV STAT For Bedside Glucose LESS than 54 mg/dl verify with a second Bedside Glucose (from a different site) and give 25 g Dextrose IV STAT Re-check and Re-treat blood glucose EVERY , 10-25 minutes until blood glucose GREATER than or equal to 80 mg/dl. NOTIFY PROVIDER OF HYPOGLYCEMIC EVENT. dextrose IV 25 g 25 g, Intravenous, PRN, Other, Bedside Glucose less than 70 mg/dL -If NOT able to eat and/or NPO and with IV Access, Starting on Thu25 at 0943, Until [place] 03/23/25 at 1636, If NOT able to eat and/or NPO and with IV Access: For Bedside Glucose LESS than 54 mg/dl verify with a second Bedside Glucose (from a different site) and give 25 g Dextrose IV STAT Re-check and Re-treat blood glucose EVERY - 10-25 minutes until blood glucose GREATER than or equal to 80 mg/dl. - If repeat bedside glucose 54-79 give 12.5 g Dextrose IV STAT NOTIFY PROVIDER OF HYPOGLYCEMIC EVENT. EPINEPHrine 5 mg/250 mL D5W infusion premix 0-0.05 mcg/kg/min 81 kg (0-12.15 mL/hr), Intravenous, CONTINUOUS, Starting on 03/15/25 at 1545, Until 03/18/25 at 0657, Central line required if infused longer than 48 hours or infusing multiple vasopressors, Titration Parameters: Custom Parameters, Indication: Cardiac output, Initiate infusion at: 0.02 mcg/kg/min, Titrate infusion by: 0.01-0.05 mcg/kg/min, Titrate every: 1 minute, To maintain a: Cardiac index greater than or equal to 2.2 L/min/m2, Notify Physician: unable to maintain ordered clinical parameter despite max dose, Restart Infusion: Medication may be restarted at last dose/rate administered before titrated to off. If infusion has been off for 4 or more hours, contact provider prior to restarting infusion. Restarted 03/17/2025 12:41 PM CDT 0.01 mcg/kg/min 2.43 mL/hr Current Rate 03/17/2025 10:21 AM CDT 0.01 mcg/kg/min 2.43 mL/hr Restarted 03/17/2025 7:53 AM CDT 0.01 mcg/kg/min 2.43 mL/ hr fentaNYL (PF) (Sublimaze) injection ONCE PRN, Starting on Thu03/22/25 at 1214, Until Thu03/22/25 at 1214, Intra-op $ Given 03/22/2025 12:14 PM CDT 50 mcg ferrous sulfate tablet 325 mg 325 mg, Oral, DAILY AFTER LUNCH, First dose on 03/12/25 at 1300, Until Discontinued, Take with food. $ Given 03/14/2025 1:54 PM CDT 325 mg $ Given 03/13/2025 1:28 PM CDT 325 mg $ Given 03/12/2025 2:14 PM CDT 325 mg furosemide (Lasix) injection 20 mg 20 mg, Intravenous, ONCE, 1 dose, On Thu03/17/25 at 1445, Protect from light $ Given 03/17/2025 3:01 PM CDT 20 mg furosemide (Lasix) injection 20 mg 20 mg, Intravenous, ONCE, 1 dose, On Thu03/18/25 at 1015, Protect from light $ Given 03/18/2025 10:21 AM CDT 20 mg furosemide (Lasix) tablet 20 mg 20 mg, Oral, DAILY, First dose (after last modification) on Thu03/24/25 at 0900, Until Discontinued furosemide (Lasix) tablet 40 mg 40 mg, Oral, DAILY, First dose on Thu03/19/25 at 1000, Until Discontinued $ Given 03/23/2025 9:52 AM CDT 40 mg $ Given 03/22/2025 9:14 AM CDT 40 mg $ Given 03/21/2025 8:30 AM CDT 40 mg glucagon (Glucagen) injection 1 mg 1 mg, Subcutaneous, PRN, Bedside Glucose less than 70 mg/dL - If NOT able to eat and/or NPO and withOUT IV Access, Starting on Dana 03/16/25 at 0943, Until [place] 03/23/25 at 1636, If NOT able to eat and/or NPO and NO IV Access: For Bedside glucose 54-69 mg/dL - Give 1 mg subcutaneous For Bedside Glucose LESS than 54 mg/dl - verify with a second bedside glucose (from a different site) - Give 1 mg subcutaneous Re-check and Re-treat blood glucose EVERY 10-25 minutes until blood glucose GREATER than or equal to 80 mg/dl. NOTIFY PROVIDER OF HYPOGLYCEMIC EVENT. Reconstitute vial with 1 mL of sterile water for injection for a final concentration of 1 mg/mL; shake vial gently; use immediately and discard unused portion glucose (Diabetic Use) oral gel Oral, PRN, Other, Bedside Glucose less than 70 mg/dL, Starting on Dana 03/16/25 at 0943, Until [place] 03/23/25 at 1636, If able to take oral medications: For Bedside Glucose 54 - 69 mg/dL Give 15 grams of oral carbohydrates - 1 glucose gel (see MAR) If patient refuses glucose gel, then offer: - 4 ounces of fruit juice OR - 4 ounces non-diet soda OR - 8 ounces of fat-free milk For Bedside Glucose LESS than 54 mg/dL verify with a second Bedside Glucose (from a different site) - If pt is symptomatic, do not delay treatment - If accuracy of the POC glucose is in question, confirm glucose with aSTAT laboratory test Give 30 grams of oral carbohydrates - 2 glucose gels (see MAR) If patient refuses glucose gel, then offer: - 8 ounces of fruit juice OR - 8 ounces non-diet soda OR - 16 ounces of fat-free milk Re-check and Re-treat blood glucose EVERY 10-25 minutes until blood glucose GREATER than or equal to 80 mg/dl. - If on recheck, bedside glucose 54-79 mg/dL - Give 15 grams of oral carbohydrates (see above for choices) NOTIFY PROVIDER OF HYPOGLYCEMIC EVENT. heparin injection 5,000 Units 5,000 Units, Subcutaneous, EVERY 8 HOURS, First dose on Thu03/03/25 at 1400, Until Discontinued, On hold since Thu03/15/2025 at 0000 until manually unheld $ Given 03/14/2025 8:39 PM CDT 5,000 Units Right Arm $ Given 03/14/2025 1:55 PM CDT 5,000 Units L eft Arm $ Given 03/13/2025 1:28 PM CDT 5,000 Units A bd Left Lower Quadrant heparin injection 5,000 Units 5,000 Units, Subcutaneous, EVERY 8 HOURS, First dose on Thu03/16/25 at 1400, Until Discontinued $ Given 03/23/2025 6:02 AM CDT 5,000 Units Abdominal Tissue $ Given 03/22/2025 9:02 PM CDT 5,000 Units A bdominal Tissue $ Given 03/22/2025 2:30 PM CDT 5,000 Units A bd Left Lower Quadrant heparinized saline 2 units/mL infusion Other, CONTINUOUS PRN, Starting on Thu03/22/25 at 1210, Until Thu03/22/25 at 1210, Intra-op $ New Bag/Syringe 03/22/2025 12:10 PM CDT 500 mL insulin aspart (NovoLOG) pen 0-6 Units 0-6 Units, Subcutaneous, 3 TIMES DAILY WITH MEALS, First dose on Thu03/16/25 at 1200, Until Discontinued, Low Dose: Correction Insulin Bedside glucose should be done within 30-60 minutes of correction insulin administration. BG (mg/dL) Corrective Action LESS than 70 follow Hypoglycemic guidelines, 70-180 NO Correction insulin, 181-220 GIVE 2 units of insulin, 221-260 GIVE 3 units of insulin, 261-300 GIVE 4 units of insulin, 301-350 GIVE 5 units of insulin, Greater than 350 GIVE 6 units of insulin and notify physician. If the patient is NPO: DO NOT HOLD correction insulin If patient is eating meals and has orders for Mealtime insulin, combine and give at the same time. . WASTE DISPOSAL INSTRUCTIONS: Black Bin Disposal required. $ Given 03/16/2025 12:46 PM CDT 2 Units Abd Right Lower Quadrant insulin regular human (MyXRedlin) 100 units in 100 mL premix infusion 0-26.5 Units/hr (0-26.5 mL/hr), Intravenous, CONTINUOUS, Starting on Thu03/15/25 at 1420, Until Thu03/16/25 at 0943, Titrate Insulin Infusion per protocol based on the following weight range: 75.5-85.4 kg POC Glucose (mg/dL) POC glucose = 70-89 0 units/hr POC glucose = 90-99 0.2 units/hr POC glucose = 100-119 0.5 units/hr POC glucose = 120-139 1 units/hr POC glucose = 140-159 1.5 units/hr POC glucose = 160-179 3.4 units/hr POC glucose = 180-199 4.3 units/hr POC glucose = 200-219 5.2 units/hr POC glucose = 220-239 6.1 units/hr POC glucose = 240-259 7 units/hr POC glucose = 260-279 7.9 units/hr POC glucose = 280-299 8.8 units/hr POC glucose = 300-319 9.7 units/hr POC glucose = 320-339 10.6 units/hr POC glucose = 340-349 11.4 units/hr POC glucose = 350-379 12.3 units/hr POC glucose = 380-399 13.2 units/hr POC glucose = greater than 400 14.1 units/hr Titrate as follows to achieve the target goal range (See order question) Bolus from the bag as directed in the bolus order . WASTE DISPOSAL INSTRUCTIONS: Black Bin Disposal required., Target POC glucose range: 120-160 mg/dL Current Rate 03/16/2025 9:10 AM CDT 1 Units/hr 1 mL/hr Current Rate 03/16/2025 9:10 AM CDT 1 Units/hr 1 mL/hr Current Rate 03/16/2025 9:06 AM CDT 1 Units/hr 1 mL/hr lactated ringers infusion at 75 mL/hr, Intravenous, CONTINUOUS, Starting on Thu03/08/25 at 0800, Until [place] 03/09/25 at 2254 $ New Bag/Syringe 03/09/2025 10:00 PM CDT 75 mL/hr $ New Bag/Syringe 03/08/2025 8:56 PM CDT 75 mL/ hr $ New Bag/Syringe 03/08/2025 9:23 AM CDT 75 mL/ hr lactated ringers infusion at 100 mL/hr, Intravenous, CONTINUOUS, Starting on Thu03/10/25 at 1815, Until 03/11/25 at 0614 $ New Bag/Syringe 03/11/2025 5:06 AM CDT 100 mL/hr $ New Bag/Syringe 03/10/2025 6:31 PM CDT 100 mL /hr lactated ringers infusion at 10 mL/hr, Intravenous, CONTINUOUS, Starting on Thu03/15/25 at 1730, Until 03/18/25 at 0657, Post-op Current Rate 03/17/2025 10:21 AM CDT 10 mL/hr Current Rate 03/17/2025 3:00 AM CDT 10 mL/hr Current Rate 03/17/2025 2:00 AM CDT 10 mL/hr lidocaine (Lidoderm) 5 % patch 1 patch 1 patch, Administer over 12 Hours, DAILY, First dose on Thu03/15/25 at 1145, Until Discontinued, Apply near sternal incision and remove patch after a max of 12 hours of application within a 24 hour period. $ Applied 03/23/2025 9:52 AM CDT 1 patch Left Chest $ Applied 03/22/2025 9:14 AM CDT 1 patch Le ft Chest $ Applied 03/20/2025 8:33 AM CDT 1 patch Ri ght Chest lidocaine (Xylocaine) 1 % injection Subcutaneous, ONCE PRN, Starting on Thu03/22/25 at 1217, Until Thu03/22/25 at 1217, Intra-op $ Given 03/22/2025 12:17 PM CDT 10 mL See Comments magnesium oxide (Mag-Ox) tablet 200 mg 200 mg, Oral, ONCE, 1 dose, On Thu03/21/25 at 0800 $ Given 03/21/2025 8:30 AM CDT 200 mg magnesium sulfate 2 g in 50 mL bolus 2 g, at 25 mL/hr, Administer over 120 Minutes, Intravenous, PRN, magnesium level less than 2, Starting on Thu03/15/25 at 1722, Until Thu03/23/25 at 1636, As needed for magnesium level less than 2, recheck magnesium in 30 minutes and repeat to maintain magnesium greater than 2. $ New Bag/Syringe 03/19/2025 6:19 AM CDT 2 g 25 mL/hr melatonin tablet 3 mg 3 mg, Oral, AT BEDTIME, First dose on Thu03/07/25 at 2330, Until Discontinued $ Given 03/14/2025 8:39 PM CDT 3 mg $ Given 03/13/2025 9:54 PM CDT 3 mg $ Given 03/12/2025 8:48 PM CDT 3 mg methocarbamol (Robaxin) injection 500 mg 500 mg, Intravenous, EVERY 6 HOURS PRN, Muscle Spasms, Starting on Thu03/15/25 at 2151, Until Thu03/23/25 at 1636, Max infusion rate of 300 mg/min $ Given 03/20/2025 5:00 PM CDT 500 mg $ Given 03/19/2025 8:37 PM CDT 500 mg $ Given 03/18/2025 8:11 PM CDT 500 mg metoprolol succinate XL 24hr (Toprol XL) tablet 25 mg 25 mg, Oral, AT BEDTIME, First dose on Thu03/02/25 at 0200, Until Discontinued, May cut in half but do not crush or chewIndications:Hypertension $ Given 03/14/2025 8:39 PM CDT 25 mg $ Given 03/13/2025 9:54 PM CDT 25 mg $ Given 03/12/2025 8:48 PM CDT 25 mg metoprolol tartrate IR (Lopressor) tablet 12.5 mg 12.5 mg, Oral, ONCE, 1 dose, On Thu03/15/25 at 0700, Administer with sip of water, Pre-op $ Given 03/15/2025 6:09 AM CDT 12.5 mg midazolam (Versed) injection Intravenous, ONCE PRN, Starting on Thu03/22/25 at 1214, Until Thu03/22/25 at 1214, Intra-op $ Given 03/22/2025 12:14 PM CDT 1 mg montelukast (Singulair) tablet 10 mg 10 mg, Oral, AT BEDTIME, First dose on Thu03/02/25 at 0215, Until Discontinued $ Given 03/14/2025 8:39 PM CDT 10 m g $ Given 03/13/2025 9:54 PM CDT 10 mg $ Given 03/12/2025 8:48 PM CDT 10 mg mupirocin (Bactroban) 2 % ointment Each Nostril, ONCE, 1 dose, On Thu03/14/25 at 1615, 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, 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-op $ Given 03/14/2025 4:40 PM CDT mupirocin (Bactroban) 2 % ointment Each Nostril, 2 TIMES DAILY, 10 doses, First dose on Thu03/15/25 at 1145, Last dose on Thu03/19/25 at 2100, Apply to bilateral nares $ Given 03/19/2025 8:38 PM CDT $ Given 03/19/2025 9:51 AM CDT $ Given 03/18/2025 8:12 PM CDT norepinephrine (Levophed) 8 mg/250 ml NS infusion premix 0-0.18 mcg/kg/min 81 kg (0-27.3375 mL/hr, rounded to 0-27.34 mL/hr), Intravenous, CONTINUOUS, Starting on Thu03/15/25 at 1545, Until Thu03/16/25 at 0940, Central line required if infused longer than 48 hours or infusing multiple vasopressors, Titration Parameters: Standard Parameters, Indication: Hypotension, Initiate infusion at: 0.05 mcg/kg/min, Titrate infusion by: If current rate 0.01 to 0.1 mcg/kg/min, titrate by 0.01 mcg/kg/min. If current rate 0.11 to 0.3 mcg/kg/min, titrate by 0.02 mcg/kg/min. If current rate 0.31 mcg/kg/min to the max ordered dose, titrate by 0.05 mcg/kg/min., Titrate every: 1 minute, To maintain a: MAP greater than or equal to 65 mmHg, Notify Physician: unable to maintain ordered clinical parameter despite max dose, Restart Infusion: Medication may be restarted at last dose/rate administered before titrated to off. If infusion has been off for 4 or more hours, contact provider prior to restarting infusion. Current Rate 03/16/2025 7:00 AM CDT 0.01 mcg/kg/min 1.52 mL/hr Current Rate 03/16/2025 6:56 AM CDT 0.01 mcg/kg/min 1.52 m L/hr Rate Change 03/16/2025 6:40 AM CDT 0.01 mcg/kg/min 1.52 mL /hr ondansetron (Zofran) injection 4 mg 4 mg, Intravenous, EVERY 4 HOURS PRN, Nausea/Vomiting, Starting on Thu03/15/25 at 1131, Until Dana 03/23/25 at 1636, Administer over 2 to 5 minutes. $ Given 03/22/2025 7:21 AM CDT 4 mg $ Given 03/21/2025 7:53 PM CDT 4 mg $ Given 03/21/2025 4:41 AM CDT 4 mg oxyCODONE (immediate release) (Roxicodone) tablet 5 mg 5 mg, Oral, EVERY 6 HOURS PRN, Severe Pain, Starting on Thu03/15/25 at 2152, Until Thu03/17/25 at 1057, Patient preference for lesser PRN pain meds may be honored when the patient requests a less strong medication, a lower dose, or a less intrusive route of administration when the lesser drug, dose and route have been ordered for the patient. This patient request must be documented in the MAR. If both oral and IV options are ordered for the same pain severity, give oral first unless patient cannot tolerate oral intake $ Given 03/16/2025 11:09 PM CDT 5 mg $ Given 03/16/2025 6:16 PM CDT 5 mg $ Given 03/16/2025 12:45 PM CDT 5 mg oxyCODONE (immediate release) (Roxicodone) tablet 5 mg 5 mg, Oral, EVERY 8 HOURS PRN, Severe Pain, Starting on Thu03/17/25 at 1057, Until [place] 03/23/25 at 1636, Patient preference for lesser PRN pain meds may be honored when the patient requests a less strong medication, a lower dose, or a less intrusive route of administration when the lesser drug, dose and route have been ordered for the patient. This patient request must be documented in the MAR. If both oral and IV options are ordered for the same pain severity, give oral first unless patient cannot tolerate oral intake. $ Given 03/19/2025 8:53 PM C DT 5 mg $ Given 03/18/2025 5:34 PM CDT 5 mg $ Given 03/17/2025 8:17 PM CDT 5 mg pantoprazole EC (Protonix) tablet 40 mg 40 mg, Oral, DAILY, First dose on Thu03/02/25 at 0900, Until Discontinued, Do not crush, chew, or cut in half. $ Given 03/15/2025 9:26 AM CDT 40 mg $ Given 03/14/2025 8:11 AM CDT 40 mg $ Given 03/13/2025 8:10 AM CDT 40 mg pantoprazole EC (Protonix) tablet 40 mg 40 mg, Oral, DAILY, First dose on Thu03/16/25 at 1015, Until Discontinued, Do not crush, chew, or cut in half. $ Given 03/23/2025 9:52 AM CDT 40 mg $ Given 03/22/2025 9:14 AM CDT 40 mg $ Given 03/21/2025 8:30 AM CDT 40 mg perflutren lipid microsphere (Definity) injection 1.5 mL 1.5 mL, Intravenous, INTRA-PROCEDURE ONCE, 1 dose, On Dana 03/02/25 at 1130, Shake well before using. $ Given 03/02/2025 11:20 AM CDT 1.5 mL perflutren lipid microsphere (Definity) injection 1.5 mL 1.5 mL, Intravenous, INTRA-PROCEDURE ONCE, 1 dose, On Thu03/19/25 at 1045, Shake well before using. $ Given 03/19/2025 10:40 AM CDT 1.5 mL piperacillin - tazobactam (Zosyn) 4.5 g in NaCl IV 0.9 % 110 mL IVPB 4.5 g, at 27.5 mL/hr, Intravenous, EVERY 8 HOURS, First dose (after last reorder) on Dana 03/02/25 at 0000, Until Discontinued, Indication for anti-infective therapy: Suspected infection, Site of anti-infective therapy: Other, Other site of infection (free text): splenic abscess $ New Bag/Syringe 03/03/2025 8:54 AM CDT 4.5 g 27.5 mL/hr $ New Bag/Syringe 03/03/2025 12:16 AM CDT 4.5 g 27.5 mL/hr $ New Bag/Syringe 03/02/2025 4:13 PM CDT 4.5 g 27.5 m L/hr polyethylene glycol 3350 (Miralax) packet 17 g 17 g, Oral, DAILY, First dose on Dana 03/02/25 at 0900, Until Discontinued, 17 g dose: mix in 8 ounces of water, juice, soda, coffee or tea prior to administration. For bowel prep check for other instructions. $ Given 2025 9:16 AM CDT 17 g $ Given 03/02/2025 8:36 AM CDT 17 g polyethylene glycol 3350 (Miralax) packet 17 g 17 g, Oral, DAILY, First dose on Dana 03/16/25 at 1015, Until Discontinued, 17 g dose: mix in 8 ounces of water, juice, soda, coffee or tea prior to administration. For bowel prep check for other instructions., On hold since 03/18/2025 at 1325 until manually unheld $ Given 03/18/2025 8:45 AM C DT 17 g $ Given 03/17/2025 10:02 AM CDT 17 g $ Given 03/16/2025 11:36 AM CDT 17 g potassium chloride 20 mEq in 100 mL SW bolus 20 mEq, at 50 mL/hr, Administer over 2 Hours, Intravenous, PRN, potassium level less than 4, Starting on Thu03/15/25 at 1722, Until [place] 03/23/25 at 1636, As needed for potassium level less than 4, recheck level in 30 minutes and repeat dose to maintain potassium level between 4-4.5 Rate Change 03/21/2025 7:45 AM CDT 2 5 mL/hr $ New Bag/Syringe 03/21/2025 7:30 AM CDT 20 mEq 50 mL/ hr $ New Bag/Syringe 03/19/2025 11:17 PM CDT 20 mEq 50 mL /hr potassium chloride ER (Klor-Con M) tablet 10 mEq 10 mEq, Oral, EVERY 24 HOURS, First dose (after last modification) on Thu03/24/25 at 1000, Until Discontinued, May cut in half but do not crush or chew. potassium chloride ER (Klor-Con M) tablet 20 mEq 20 mEq, Oral, EVERY 24 HOURS, First dose on Thu03/20/25 at 1000, Until Discontinued, Do not crush or chew. $ Given 03/23/2025 9:52 AM CDT 20 mEq $ Given 03/22/2025 9:14 AM CDT 20 mEq $ Given 03/21/2025 8:52 AM CDT 20 mEq potassium chloride ER (Klor-Con M) tablet 20 mEq 20 mEq, Oral, ONCE, 1 dose, On Thu03/21/25 at 0800, Do not crush or chew. $ Given 03/21/2025 7:58 AM CDT 20 mEq propofol (Diprivan) 1000 mg in 100 mL infusion 0-50 mcg/kg/min 81 kg (0-24.3 mL/hr), Intravenous, CONTINUOUS, Starting on Thu03/15/25 at 1215, Until [place] 03/16/25 at 0657, Patient must be mechanically ventilated Above RASS goal: Assess and treat pain first if CPOT greater than 2. If agitation persists increase rate per order. At RASS goal and no change in 4 hours: Decrease rate per order. Below RASS goal (unarousable): Hold infusion until at goal RASS then restart at 50% previous rate. If significant hemodynamic changes notify physician for instructions. Notify physician for inability to reach goals despite maximal dosage. Note: The CPOT goal should be achieved first with the use of the ordered analgesic medication prior to targeting RASS goal with the sedative. Vial and Tubing should be changed and/or discarded every 12 hours., Titration Parameters: Standard Parameters, Indication: Sedation, Initiate infusion at: 5 mcg/kg/min, Titrate infusion by: 5 mcg/kg/min, Titrate every: 2 minutes, Notify physician if: Unachievable RASS goal despite max dose, Titration Priority: 1st, Restart Infusion: Medication may be restarted at last dose/rate administered before titrated to off. If infusion has been off for 4 or more hours, contact provider prior to restarting infusion. Rate Change 03/15/2025 6:48 PM CDT 5 mcg/kg/min 2.43 mL/hr Rate Change 03/15/2025 6:44 PM CDT 10 mcg/kg/min 4.86 mL/h r Rate Change 03/15/2025 6:30 PM CDT 15 mcg/kg/min 7.29 mL/h r senna (Senokot) tablet 8.6 mg 8.6 mg, Oral, DAILY, First dose on Dana 03/02/25 at 0900, Until Discontinued $ Given 03/15/2025 9:24 AM CDT 8.6 mg $ Given 2025 9:15 AM CDT 8.6 mg $ Given 03/05/2025 9:05 AM CDT 8.6 mg senna-docusate (Senokot-S) tablet 1 tablet 1 tablet, Oral, DAILY, First dose on Dana 03/16/25 at 0900, Until Discontinued, On hold since 03/18/2025 at 1325 until manually unheld $ Given 03/18/2025 8:46 AM CDT 1 tablet $ Given 03/17/2025 10:02 AM CDT 1 tablet $ Given 03/16/2025 8:35 AM CDT 1 tablet umeclidinium (Incruse Ellipta) 62.5 MCG/ACT inhaler 1 puff 1 puff, Inhalation, DAILY, First dose on Dana 03/02/25 at 0900, Until Discontinued, . WASTE DISPOSAL INSTRUCTION: Send to Pharmacy for Disposal. . $ Given 03/14/2025 9:01 AM CDT 1 puff $ Given 03/13/2025 8:32 AM CDT 1 puff $ Given 03/12/2025 10:15 AM CDT 1 puff warfarin (Coumadin) dose per provider Other, DAILY AT 1700, First dose on 03/18/25 at 1700, Until Discontinued, Call physician daily for warfarin order if not already available. Do not delete or modify this order unless you are discontinuing warfarin! warfarin (Coumadin) tablet 4 mg 4 mg, Oral, ONCE WARFARIN, 1 dose, On Thu03/18/25 at 1700, . WASTE DISPOSAL INSTRUCTIONS: P-Listed item. Special Disposal Required. . $ Given 03/18/2025 5:34 PM CDT 4 mg warfarin (Coumadin) tablet 4 mg 4 mg, Oral, ONCE WARFARIN, 1 dose, On Thu03/19/25 at 1700, . WASTE DISPOSAL INSTRUCTIONS: P-Listed item. Special Disposal Required. . $ Given 03/19/2025 6:44 PM CDT 4 mg warfarin (Coumadin) tablet 4 mg 4 mg, Oral, ONCE WARFARIN, 1 dose, On Thu03/20/25 at 1700, . WASTE DISPOSAL INSTRUCTIONS: P-Listed item. Special Disposal Required. . $ Given 03/20/2025 4:59 PM CDT 4 mg warfarin (Coumadin) tablet 4 mg 4 mg, Oral, ONCE WARFARIN, 1 dose, On Thu03/21/25 at 1715, . WASTE DISPOSAL INSTRUCTIONS: P-Listed item. Special Disposal Required. . $ Given 03/21/2025 6:03 PM CDT 4 mg warfarin (Coumadin) tablet 5 mg 5 mg, Oral, ONCE WARFARIN, 1 dose, On Thu03/22/25 at 1700, . WASTE DISPOSAL INSTRUCTIONS: P-Listed item. Special Disposal Required. . $ Given 03/22/2025 4:27 PM CDT 5 mg documented in this encounter Active and Recently Administered Medications Times are shown in CDT. Scheduled Medication Order 03/21/2025 03/22/2025 03/23/2025 0.9% NaCl injection 3 mL(Linked Group 1) 3 mL, Intracatheter, EVERY 8 HOURS, First dose on Thu03/15/25 at 2200, Until Discontinued, Flush peripheral IV catheter with 3 mL of normal saline every 8 hours. 0623 ($ Given - Provider: Gilda Ortiz, DAYLIN)1437 ($ Given - Provider: Wyatt Rodas RN)2204 ($ Given - Provider: Chivo Munson, Graduate Nurse) 0515 ($ Given - Provider: Chivo Munson, Graduate Nurse)1426 ($ Given - Provider: Jessica Sahu RN)2108 ($ Given - Provider: De Frias RN) 0602 ($ Given - Provider: De Frias RN)1443 ($ Given - Provider: Shirley Fulton, RN) ampicillin (Omnipen) 2,000 mg in NaCl IV 0.9 % 100 mL IVPB 2,000 mg (2 g), at 200 mL/hr, Intravenous, EVERY 8 HOURS, First dose on Thu03/03/25 at 1515, Until Discontinued, Indication for anti-infective therapy: Suspected infection, Site of anti-infective therapy: Other, Blood, Other site of infection (free text): Endocarditis 0626 ($ New Bag/Syringe - Provider: Gilda Ortiz RN)0726 (Stopped - Provider: Gilda Ortiz RN)1435 ($ New Bag/Syringe - Provider: Wyatt Rodas RN)1505 (Stopped - Provider: Wyatt Rodas RN)2202 ($ New Bag/Syringe - Provider: Chivo Munson Graduate Nurse)2242 (Stopped - Provider: Mera Hayward Nurse) 0515 ($ New Bag/Syringe - Provider: Mera Hayward Nurse)0624 (Stopped - Provider: Mera Hayward Nurse)1430 ($ New Bag/Syringe - Provider: Jessica Sahu RN)1506 (Stopped - Provider: Jessica Sahu RN)2114 ($ New Bag/Syringe - Provider: De Frias RN)2145 (Stopped - Provider: De Frias RN) 0606 ($ New Bag/Syringe - Provider: De Frias RN)0639 (Stopped - Provider: De Frias RN)1442 ($ New Bag/Syringe - Provider: Shirley Fulton, RN)1525 (Stopped - Provider: Shirley Fulton, RN) aspirin chew tablet 81 mg 81 mg, Oral, DAILY, First dose on Thu03/15/25 at 1145, Until Discontinued 0830 ($ Given - Provider: Wyatt Rodas RN) 0914 ($ Given - Provider: Patria De RN) 0952 ($ Given - Provider: Shirley Fulton, RN) atorvastatin (Lipitor) tablet 40 mg 40 mg, Oral, AT BEDTIME, First dose on Thu03/16/25 at 2100, Until Discontinued, On hold since Thu03/17/2025 at 0659 until manually unheld 2100 (Dose Held - Provider: Jennyfer Dallas DO) 2100 (Dose Held - Provider: Jennyfer Dallas DO) 1636 (Unheld by Provider - Provider: Generic, Auto Release) cefTRIAXone (Rocephin) syringe 2,000 mg 2,000 mg (2 g), Intravenous, EVERY 12 HOURS, First dose (after last modification) on Thu03/03/25 at 2100, Until Discontinued, Infuse over 3-5 minutes. Mix with 19.2 mL diluent for final concentration 2000 mg/20 mL., Indication for anti-infective therapy: Suspected infection, Site of anti-infective therapy: Blood 0831 ($ Given - Provider: Wyatt Rodas RN)2153 ($ Given - Provider: Mera Hayward Nurse) 0914 ($ Given - Provider: Patria De, RN)2102 ($ Given - Provider: De Frias, RN) 0951 ($ Given - Provider: Shirley Fulton, RN) furosemide (Lasix) tablet 20 mg 20 mg, Oral, DAILY, First dose (after last modification) on Thu03/24/25 at 0900, Until Discontinued furosemide (Lasix) tablet 40 mg (CANCELED) 40 mg, Oral, DAILY, First dose on Thu03/19/25 at 1000, Until Discontinued 0830 ($ Given - Provider: Wyatt Rodas RN) 0914 ($ Given - Provider: Patria De, RN) 0952 ($ Given - Provider: Shirley Fulton, RN) heparin injection 5,000 Units 5,000 Units, Subcutaneous, EVERY 8 HOURS, First dose on Thu03/16/25 at 1400, Until Discontinued 0623 ($ Given - Provider: Gilda Ortiz, DAYLIN)1431 ($ Given - Provider: Wyatt Rodas RN)2204 ($ Given - Provider: Mera Hayward Nurse) 0512 ($ Given - Provider: Mera Hayward Nurse)1430 ($ Given - Provider: Jessica Sahu RN)2102 ($ Given - Provider: De Frias, RN) 0602 ($ Given - Provider: De Frias, RN)1444 (Not Administered - Provider: Shirley Fulton RN - Reason: Other - Comment: patient going home) lidocaine (Lidoderm) 5 % patch 1 patch 1 patch, Administer over 12 Hours, DAILY, First dose on Thu03/15/25 at 1145, Until Discontinued, Apply near sternal incision and remove patch after a max of 12 hours of application within a 24 hour period. 0833 (Not Administered - Provider: Wyatt Rodas RN - Reason: Refused-Patient) 0914 ($ Applied - Provider: Patria De, RN)2100 (Removed - Provider: De Frias RN) 0952 ($ Applied - Provider: Shirley Fulton RN)2151 (Due: Removed - Provider: Shirley Fulton RN) magnesium oxide (Mag-Ox) tablet 200 mg (COMPLETED) 200 mg, Oral, ONCE, 1 dose, On Thu03/21/25 at 0800 0830 ($ Given - Provider: Wyatt Rodas RN) pantoprazole EC (Protonix) tablet 40 mg 40 mg, Oral, DAILY, First dose on Thu03/16/25 at 1015, Until Discontinued, Do not crush, chew, or cut in half. 0830 ($ Given - Provider: Wyatt Rodas RN) 0914 ($ Given - Provider: Patria De RN) 0952 ($ Given - Provider: Shirley Fulton RN) polyethylene glycol 3350 (Miralax) packet 17 g 17 g, Oral, DAILY, First dose on Thu03/16/25 at 1015, Until Discontinued, 17 g dose: mix in 8 ounces of water, juice, soda, coffee or tea prior to administration. For bowel prep check for other instructions., On hold since 03/18/2025 at 1325 until manually unheld 0900 (Dose Held - Provider: Jessica Mitchell MD) 0900 (Dose Held - Provider: Jessica Mitchell MD) 0900 (Dose Held)1636 (Unheld by Provider - Provider: Generic, Auto Release) potassium chloride ER (Klor-Con M) tablet 10 mEq 10 mEq, Oral, EVERY 24 HOURS, First dose (after last modification) on Thu03/24/25 at 1000, Until Discontinued, May cut in half but do not crush or chew. potassium chloride ER (Klor-Con M) tablet 20 mEq (CANCELED) 20 mEq, Oral, EVERY 24 HOURS, First dose on Thu03/20/25 at 1000, Until Discontinued, Do not crush or chew. 0852 ($ Given - Provider: Mansi Ramirez, RN) 0914 ($ Given - Provider: Patria De, RN) 0952 ($ Given - Provider: Shirley Fulton, RN) potassium chloride ER (Klor-Con M) tablet 20 mEq (COMPLETED) 20 mEq, Oral, ONCE, 1 dose, On Thu03/21/25 at 0800, Do not crush or chew. 0758 ($ Given - Provider: Mansi Ramirez, DAYLIN) senna-docusate (Senokot-S) tablet 1 tablet 1 tablet, Oral, DAILY, First dose on Dana 03/16/25 at 0900, Until Discontinued, On hold since 03/18/2025 at 1325 until manually unheld 0900 (Dose Held - Provider: Jessica Mitchell MD) 0900 (Dose Held - Provider: Jessica Mitchell MD) 0900 (Dose Held)1636 (Unheld by Provider - Provider: Generic, Auto Release) warfarin (Coumadin) dose per provider Other, DAILY AT 1700, First dose on Thu03/18/25 at 1700, Until Discontinued, Call physician daily for warfarin order if not already available. Do not delete or modify this order unless you are discontinuing warfarin! 1804 (*Reviewed - Provider: Wyatt Rodas RN) 1623 (*Reviewed - Provider: Jessica Sahu, DAYLIN) warfarin (Coumadin) tablet 4 mg (COMPLETED) 4 mg, Oral, ONCE WARFARIN, 1 dose, On Thu03/21/25 at 1715, . WASTE DISPOSAL INSTRUCTIONS: P-Listed item. Special Disposal Required. . 1803 ($ Given - Provider: Wyatt Rodas RN) warfarin (Coumadin) tablet 5 mg (COMPLETED) 5 mg, Oral, ONCE WARFARIN, 1 dose, On Thu03/22/25 at 1700, . WASTE DISPOSAL INSTRUCTIONS: P-Listed item. Special Disposal Required. . 1627 ($ Given - Provider: Jessica Sahu, DAYLIN) PRN Medication Order 03/21/2025 03/22/2025 03/23/2025 0.9% NaCl infusion (COMPLETED) Intravenous, CONTINUOUS PRN, Starting on Thu03/22/25 at 1210, Until Thu03/22/25 at 1210, Intra-op 1210 ($ New Bag/Syringe - Provider: Mac Bloom RN) 0.9% NaCl injection 1-10 mL(Linked Group 1) 1-10 mL, Intracatheter, PRN, Other, peripheral line flush, Starting on Thu03/15/25 at 1804, Until Thu03/23/25 at 1636, Flush peripheral IV catheter with 1-10 mL of normal saline before and after medications and prn to clear blood from the line or to verify patency. 0955 ($ Given - Provider: Shirley Fulton RN) albuterol-ipratropium (Duo-Neb) nebulizer solution 3 mL 3 mL, Inhalation, EVERY 4 HOURS PRN, Shortness of Breath, Wheezing, Starting on Thu03/16/25 at 0945, Until Thu03/23/25 at 1636 calcium gluconate 2 g in 100 mL NaCl 0.675% 2 g, at 100 mL/hr, Intravenous, PRN, iCa less than 1.2, Starting on Thu03/15/25 at 1722, Until Thu03/23/25 at 1636, As needed for iCa less than 1.2, recheck iCa in 30 minutes and repeat to maintain iCa greater than 1.2 dextrose IV 12.5 g(Linked Group 2) 12.5 g, Intravenous, PRN, Other, Bedside Glucose less than 70 mg/dL -If NOT able to eat and/or NPO and with IV Access, Starting on Thu03/16/25 at 0943, Until Thu03/23/25 at 1636, If NOT able to eat and/or NPO and with IV Access: For Bedside Glucose 54-69 mg/dL give 12.5 g Dextrose IV STAT For Bedside Glucose LESS than 54 mg/dl verify with a second Bedside Glucose (from a different site) and give 25 g Dextrose IV STAT Re-check and Re-treat blood glucose EVERY , 10-25 minutes until blood glucose GREATER than or equal to 80 mg/dl. NOTIFY PROVIDER OF HYPOGLYCEMIC EVENT. dextrose IV 25 g(Linked Group 2) 25 g, Intravenous, PRN, Other, Bedside Glucose less than 70 mg/dL -If NOT able to eat and/or NPO and with IV Access, Starting on Thu03/16/25 at 0943, Until Thu03/23/25 at 1636, If NOT able to eat and/or NPO and with IV Access: For Bedside Glucose LESS than 54 mg/dl verify with a second Bedside Glucose (from a different site) and give 25 g Dextrose IV STAT Re-check and Re-treat blood glucose EVERY - 10-25 minutes until blood glucose GREATER than or equal to 80 mg/dl. - If repeat bedside glucose 54-79 give 12.5 g Dextrose IV STAT NOTIFY PROVIDER OF HYPOGLYCEMIC EVENT. fentaNYL (PF) (Sublimaze) injection (COMPLETED) ONCE PRN, Starting on Thu03/22/25 at 1214, Until Thu03/22/25 at 1214, Intra-op 1214 ($ Given - Provider: Mac Bloom RN) glucagon (Glucagen) injection 1 mg(Linked Group 2) 1 mg, Subcutaneous, PRN, Bedside Glucose less than 70 mg/dL - If NOT able to eat and/or NPO and withOUT IV Access, Starting on Dana 03/16/25 at 0943, Until Dana 03/23/25 at 1636, If NOT able to eat and/or NPO and NO IV Access: For Bedside glucose 54-69 mg/dL - Give 1 mg subcutaneous For Bedside Glucose LESS than 54 mg/dl - verify with a second bedside glucose (from a different site) - Give 1 mg subcutaneous Re-check and Re-treat blood glucose EVERY 10-25 minutes until blood glucose GREATER than or equal to 80 mg/dl. NOTIFY PROVIDER OF HYPOGLYCEMIC EVENT. Reconstitute vial with 1 mL of sterile water for injection for a final concentration of 1 mg/mL; shake vial gently; use immediately and discard unused portion glucose (Diabetic Use) oral gel Oral, PRN, Other, Bedside Glucose less than 70 mg/dL, Starting on Dana 03/16/25 at 0943, Until Dana 03/23/25 at 1636, If able to take oral medications: For Bedside Glucose 54 - 69 mg/dL Give 15 grams of oral carbohydrates - 1 glucose gel (see MAR) If patient refuses glucose gel, then offer: - 4 ounces of fruit juice OR - 4 ounces non-diet soda OR - 8 ounces of fat-free milk For Bedside Glucose LESS than 54 mg/dL verify with a second Bedside Glucose (from a different site) - If pt is symptomatic, do not delay treatment - If accuracy of the POC glucose is in question, confirm glucose with aSTAT laboratory test Give 30 grams of oral carbohydrates - 2 glucose gels (see MAR) If patient refuses glucose gel, then offer: - 8 ounces of fruit juice OR - 8 ounces non-diet soda OR - 16 ounces of fat-free milk Re-check and Re-treat blood glucose EVERY 10-25 minutes until blood glucose GREATER than or equal to 80 mg/dl. - If on recheck, bedside glucose 54-79 mg/dL - Give 15 grams of oral carbohydrates (see above for choices) NOTIFY PROVIDER OF HYPOGLYCEMIC EVENT. heparinized saline 2 units/mL infusion (COMPLETED) Other, CONTINUOUS PRN, Starting on Thu03/22/25 at 1210, Until Thu03/22/25 at 1210, Intra-op 1210 ($ New Bag/Syringe - Provider: Mac Bloom, RN) lidocaine (Xylocaine) 1 % injection (COMPLETED) Subcutaneous, ONCE PRN, Starting on Thu03/22/25 at 1217, Until Thu03/22/25 at 1217, Intra-op 1217 ($ Given - Provider: Garcia Gil MD - Comment: rt neck) magnesium sulfate 2 g in 50 mL bolus 2 g, at 25 mL/hr, Administer over 120 Minutes, Intravenous, PRN, magnesium level less than 2, Starting on Thu03/15/25 at 1722, Until Dana 03/23/25 at 1636, As needed for magnesium level less than 2, recheck magnesium in 30 minutes and repeat to maintain magnesium greater than 2. methocarbamol (Robaxin) injection 500 mg 500 mg, Intravenous, EVERY 6 HOURS PRN, Muscle Spasms, Starting on Thu03/15/25 at 2151, Until Dana 03/23/25 at 1636, Max infusion rate of 300 mg/min midazolam (Versed) injection (COMPLETED) Intravenous, ONCE PRN, Starting on Thu03/22/25 at 1214, Until 03/22/25 at 1214, Intra-op 1214 ($ Given - Provider: Mac Bloom, RN) ondansetron (Zofran) injection 4 mg 4 mg, Intravenous, EVERY 4 HOURS PRN, Nausea/Vomiting, Starting on Thu03/15/25 at 1131, Until Dana 03/23/25 at 1636, Administer over 2 to 5 minutes. 0441 ($ Given - Provider: Gilda Ortiz, DAYLIN)1953 ($ Given - Provider: Chivo Munson, Graduate Nurse) 0721 ($ Given - Provider: Patria De RN) oxyCODONE (immediate release) (Roxicodone) tablet 5 mg 5 mg, Oral, EVERY 8 HOURS PRN, Severe Pain, Starting on Thu03/17/25 at 1057, Until Thu03/23/25 at 1636, Patient preference for lesser PRN pain meds may be honored when the patient requests a less strong medication, a lower dose, or a less intrusive route of administration when the lesser drug, dose and route have been ordered for the patient. This patient request must be documented in the MAR. If both oral and IV options are ordered for the same pain severity, give oral first unless patient cannot tolerate oral intake. potassium chloride 20 mEq in 100 mL SW bolus 20 mEq, at 50 mL/hr, Administer over 2 Hours, Intravenous, PRN, potassium level less than 4, Starting on Thu03/15/25 at 1722, Until Thu03/23/25 at 1636, As needed for potassium level less than 4, recheck level in 30 minutes and repeat dose to maintain potassium level between 4-4.5 0730 ($ New Bag/Syringe - Provider: Gilda Ortiz RN)0744 (Paused - Provider: Wyatt Rodas RN)0745 (Rate Change - Provider: Wyatt Rodas RN - Comment: patient stated it was burning)0847 (Stopped - Provider: Mansi Ramirez RN - Comment: fall concern, giving PO instead) Linked Groups Order Group 1: SALINE LOCK, INSERT AND MAINTAIN (CANCELED) Routine, CONTINUOUS, Starting on Thu03/15/25 at 1815, Until Specified, New collection And 0.9% NaCl injection 3 mLJump to med 3 mL, Intracatheter, EVERY 8 HOURS, First dose on Thu03/15/25 at 2200, Until Discontinued, Flush peripheral IV catheter with 3 mL of normal saline every 8 hours. And 0.9% NaCl injection 1-10 mLJump to med 1-10 mL, Intracatheter, PRN, Other, peripheral line flush, Starting on Thu03/15/25 at 1804, Until Thu03/23/25 at 1636, Flush peripheral IV catheter with 1-10 mL of normal saline before and after medications and prn to clear blood from the line or to verify patency. Group 2: dextrose IV 12.5 gJump to med 12.5 g, Intravenous, PRN, Other, Bedside Glucose less than 70 mg/dL -If NOT able to eat and/or NPO and with IV Access, Starting on Dana 03/16/25 at 0943, Until Daan 03/23/25 at 1636, If NOT able to eat and/or NPO and with IV Access: For Bedside Glucose 54-69 mg/dL give 12.5 g Dextrose IV STAT For Bedside Glucose LESS than 54 mg/dl verify with a second Bedside Glucose (from a different site) and give 25 g Dextrose IV STAT Re-check and Re-treat blood glucose EVERY , 10-25 minutes until blood glucose GREATER than or equal to 80 mg/dl. NOTIFY PROVIDER OF HYPOGLYCEMIC EVENT. Or dextrose IV 25 gJump to med 25 g, Intravenous, PRN, Other, Bedside Glucose less than 70 mg/dL -If NOT able to eat and/or NPO and with IV Access, Starting on Dana 03/16/25 at 0943, Until Dana 03/23/25 at 1636, If NOT able to eat and/or NPO and with IV Access: For Bedside Glucose LESS than 54 mg/dl verify with a second Bedside Glucose (from a different site) and give 25 g Dextrose IV STAT Re-check and Re-treat blood glucose EVERY - 10-25 minutes until blood glucose GREATER than or equal to 80 mg/dl. - If repeat bedside glucose 54- 79 give 12.5 g Dextrose IV STAT NOTIFY PROVIDER OF HYPOGLYCEMIC EVENT. Or glucagon (Glucagen) injection 1 mgJump to med 1 mg, Subcutaneous, PRN, Bedside Glucose less than 70 mg/dL - If NOT able to eat and/or NPO and withOUT IV Access, Starting on Dana 03/16/25 at 0943, Until Dana 03/23/25 at 1636, If NOT able to eat and/or NPO and NO IV Access: For Bedside glucose 54- 69 mg/dL - Give 1 mg subcutaneous For Bedside Glucose LESS than 54 mg/dl - verify with a second bedside glucose (from a different site) - Give 1 mg subcutaneous Re-check and Re-treat blood glucose EVERY 10-25 minutes until blood glucose GREATER than or equal to 80 mg/dl. NOTIFY PROVIDER OF HYPOGLYCEMIC EVENT. 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
--- OUTSIDE RECORDS SUMMARY | 2025-03-24 11:54 | XMS_ITS | Clinical Summary ---
Author Organization [facility] Address [address] [address] Care Team Providers Care Color Mixer Name Role Phone Carlos Ventura MD Primary Care Provider [phone] Source Comments [facility],non-owned Affiliates and Associated Physician Practices is amultiple site organization consisting of ambulatory clinics and hospital sitesin [place], [place], [place] and [place]. This disclosure is being madepursuant to the Care Everywhere program and may not contain all information available regarding this patient. Last updated 18.[employer] Allergies No known active allergies Medications * Be aware that medications may not be up to date on this document. Alwaysverify current medications with the patient. omeprazole (PriLOSEC) 40 MG capsule Take 1 (one) capsule by mouth daily before breakfast Active cefTRIAXone 2 g in NaCl IV 0.9 % 50 mL - IV ceftriaxone 2g every 12 hours - Duration of therapy 6 weeks from date of MVR, 03/15/2025 - EOT 04/26/2025. - Weekly labs: CBC w/ diff, CMP, please fax results to [facility] Infectious disease clinic, fax [phone], Attn Yesica Cabello PA-C 03/21/20 25 025 Active ampicillin 2 g in NaCl IV 0.9 % 100 mL - IV ampicillin 2g every 8 hours (renally dosed), consider continuous infusion outpatient to help with easier administration. - Duration of therapy 6 weeks from date of MVR, 03/15/2025 - EOT 04/26/2025. - Weekly labs: CBC w/ diff, CMP, please fax results to [facility] Infectious disease clinic, fax [phone], Attn Yesica Cabello PA-C 03/21/20 025 Active warfarin (Coumadin) 2 MG tablet To start, take 2 tablets (4 mg) by mouth once daily. Dose will be adjusted initially by Dr. Hernandez's office according to your INR results. Starting 04/05/25, the [facility]ticoagulation [facility] at [facility] will be dosing your warfarin 60 tablet 5 11:32 AM CDT 03/23/20 25 Active aspirin (Aspirin) 81 MG chew tablet Take 1 (one) tablet by mouth once daily (chew and swallow) 30 tablet 5 11:32 AM CDT 03/24/20 25 Active furosemide (Lasix) 20 MG tablet Take 1 (one) tablet by mouth once daily for 30 days 30 tablet 5 11:32 AM CDT 03/24/20 25 025 Active potassium chloride ER 10 MEQ tablet Take 1 (one) tablet by mouth once daily for 30 days Stop taking when no longer taking furosemide/Lasix 30 tablet 5 11:32 AM CDT 03/24/20 25 025 Active amLODIPine (Norvasc) 5 MG tablet Take 1 (one) tablet by mouth once daily 025 Discontin ued(Clini julito Decision) metoprolol succinate XL 24hr (Toprol XL) 25 MG tablet Take 1 (one) tablet by mouth once daily 025 Discontin ued(Clini julito Decision) montelukast (Singulair) 10 MG tablet Take 1 (one) tablet by mouth at bedtime 025 Discontin ued(Clini julito Decision) Active Problems Problem Noted Date Diagnosed Date S/P MVR (mitral valve replacement) 03/23/2025 CKD (chronic kidney disease) stage 5, GFR less than 15 ml/min 03/04/2025 Assessment & Plan (03/15/2025 2:06 PM CDT): Cr 03/14 2.89; Range: 2.78-3.62 PLAN: - Avoid nephrotoxic agents and continue tight control of blood pressures MAP > 65 - Nephrology consulted, pt should proceed with cath and MV surgery - Start FeSo4 PO per nephrology - Daily RFP - Hemodialysis line to be placed in OR per CTS - Nephrology will reevaluate for dialysis post-CTS procedure. Assessment & Plan (03/14/2025 6:44 PM CDT): Cr 03/14 2.89; Range: 2.78-3.62 PLAN: - Avoid nephrotoxic agents and continue tight control of blood pressures MAP > 65 - Nephrology consulted, pt should proceed with cath and MV surgery - Start FeSo4 PO per nephrology - Daily RFP - Hemodialysis line to be placed in OR per CTS - Nephrology will reevaluate for dialysis post-CTS procedure. Assessment & Plan (03/13/2025 8:02 AM CDT): Cr-3.44-3.62 PLAN: - Avoid nephrotoxic agents and continue tight control of blood pressures MAP > 65 - Nephrology consulted, pt should proceed with cath and MV surgery - Start FeSo4 PO per nephrology - Daily RFP Assessment & Plan (03/12/2025 11:01 AM CDT): Cr-3.44-3.62 PLAN: - Avoid nephrotoxic agents and continue tight control of blood pressures MAP > 65 - Nephrology consulted, pt should proceed with cath and MV surgery - Start FeSo4 PO per nephrology - Daily RFP Assessment & Plan (03/11/2025 11:38 AM CDT): Cr-3.44-3.62 PLAN: - avoid nephrotoxic agents and continue tight control of blood pressures - nephrology consulted, pt should proceed with cath and MV surgery Assessment & Plan (03/10/2025 11:57 AM CDT): Cr-3.44-3.62 PLAN: - avoid nephrotoxic agents and continue tight control of blood pressures - nephrology consulted, pt should proceed with cath and MV surgery Assessment & Plan (03/09/2025 2:54 PM CDT): Cr-3.44-3.62 PLAN: - avoid nephrotoxic agents and continue tight control of blood pressures - nephrology consulted, pt should proceed with cath and MV surgery Assessment & Plan (03/08/2025 1:03 PM CDT): Cr-3.44-3.62 PLAN: - avoid nephrotoxic agents and continue tight control of blood pressures - nephrology consulted, pt should proceed with cath and MV surgery Assessment & Plan (03/07/2025 7:30 AM CDT): Cr-3.44-3.62 PLAN: - avoid nephrotoxic agents and continue tight control of blood pressures Assessment & Plan (2025 2:48 PM CDT): Cr-3.44-3.62 PLAN: - avoid nephrotoxic agents and continue tight control of blood pressures Assessment & Plan (03/05/2025 1:00 PM CDT): Cr-3.44-3.62 PLAN: - avoid nephrotoxic agents and continue tight control of blood pressures Assessment & Plan (03/04/2025 2:24 PM CDT): Cr-3.44-3.62 PLAN: - avoid nephrotoxic agents and continue tight control of blood pressures Enterococcal bacteremia 03/03/2025 Assessment & Plan (03/15/2025 2:06 PM CDT): - SINTIA came back for large vegetation [...] management for perioperative pain management per CTS Assessment & Plan (03/14/2025 6:44 PM CDT): - SINTIA came back for large vegetation [...] Will call CTS 03/15 AM to discuss Assessment & Plan (03/13/2025 10:12 AM CDT): - SINTIA came back for large vegetation [...] - Incentive spirometry for prevention of pneumonia Assessment & Plan (03/13/2025 8:02 AM CDT): - SINTIA came back for large vegetation [...] for CTS Pre-OP evaluation - F/u labs 8/25 am Assessment & Plan (03/12/2025 11:01 AM CDT): - SINTIA came back for large vegetation [...] for CTS Pre-OP evaluation - F/u labs 8/25 am Assessment & Plan (03/11/2025 11:38 AM CDT): - CT Abd/Pelvis, OSH (02/28/25): New 8.1 [...] and chains and later positive for enterococci faecalis - TTE [...] - PT/OT consulted for CTS Pre-OP evaluation Assessment & Plan (03/10/2025 12:45 PM CDT): - CT Abd/Pelvis, OSH (02/28/25): New 8.1 [...] and chains and later positive for enterococci faecalis - TTE [...] on incentive spirometry for prevention of pneumonia Assessment & Plan (03/09/2025 2:54 PM CDT): - CT Abd/Pelvis, OSH (02/28/25): New 8.1 [...] and chains and later positive for enterococci faecalis - TTE [...] on incentive spirometry for prevention of pneumonia Assessment & Plan (03/08/2025 1:03 PM CDT): - CT Abd/Pelvis, OSH (02/28/25): New 8.1 [...] and chains and later positive for enterococci faecalis - TTE [...] on incentive spirometry for prevention of pneumonia Assessment & Plan (03/07/2025 3:04 PM CDT): - CT Abd/Pelvis, OSH (02/28/25): New 8.1 [...] and chains and later positive for enterococci faecalis - TTE [...] would like multicenter rounds for tomorrow 03/08 Assessment & Plan (2025 2:48 PM CDT): - CT Abd/Pelvis, OSH (02/28/25): New 8.1 [...] and chains and later positive for enterococci faecalis - TTE [...] - CTS following and would appreciate recs Assessment & Plan (03/05/2025 1:00 PM CDT): - CT Abd/Pelvis, OSH (02/28/25): New 8.1 [...] and chains and later positive for enterococci faecalis - TTE [...] - CTS following and would appreciate recs Assessment & Plan (03/04/2025 2:24 PM CDT): - CT Abd/Pelvis, OSH (02/28/25): New 8.1 [...] and chains and later positive for enterococci faecalis - TTE [...] - CTS following and would appreciate recs Assessment & Plan (03/03/2025 12:47 PM CDT): - CT Abd/Pelvis, OSH (02/28/25): New 8.1 [...] and chains and later positive for enterococci faecalis - ECHO [...] TTE to evaluate for other infectious source Mitral valve vegetation 03/03/2025 Assessment & Plan (03/15/2025 2:06 PM CDT): - SINTIA came back for large vegetation [...] management for perioperative pain management per CTS Assessment & Plan (03/14/2025 6:44 PM CDT): - SINTIA came back for large vegetation [...] Will call CTS 03/15 AM to discuss Assessment & Plan (03/13/2025 10:12 AM CDT): - SINTIA came back for large vegetation [...] - Incentive spirometry for prevention of pneumonia Assessment & Plan (03/13/2025 8:02 AM CDT): - SINTIA came back for large vegetation [...] Pre-OP evaluation - F/u labs 03/13 am Assessment & Plan (03/12/2025 11:01 AM CDT): - SINTIA came back for large vegetation [...] Pre-OP evaluation - F/u labs 03/13 am Assessment & Plan (03/11/2025 11:38 AM CDT): - CT Abd/Pelvis, OSH (02/28/25): New 8.1 [...] and chains and later positive for enterococci faecalis - TTE [...] - PT/OT consulted for CTS Pre-OP evaluation Assessment & Plan (03/10/2025 12:45 PM CDT): - CT Abd/Pelvis, OSH (02/28/25): New 8.1 [...] and chains and later positive for enterococci faecalis - TTE [...] on incentive spirometry for prevention of pneumonia Assessment & Plan (03/09/2025 2:54 PM CDT): - CT Abd/Pelvis, OSH (02/28/25): New 8.1 [...] and chains and later positive for enterococci faecalis - TTE [...] on incentive spirometry for prevention of pneumonia Assessment & Plan (03/08/2025 1:03 PM CDT): - CT Abd/Pelvis, OSH (02/28/25): New 8.1 [...] and chains and later positive for enterococci faecalis - TTE [...] on incentive spirometry for prevention of pneumonia Assessment & Plan (03/07/2025 3:04 PM CDT): - CT Abd/Pelvis, OSH (02/28/25): New 8.1 [...] and chains and later positive for enterococci faecalis - TTE [...] would like multicenter rounds for tomorrow 03/08 Assessment & Plan (2025 2:48 PM CDT): - CT Abd/Pelvis, OSH (02/28/25): New 8.1 [...] and chains and later positive for enterococci faecalis - TTE [...] - CTS following and would appreciate recs Assessment & Plan (03/05/2025 1:00 PM CDT): - CT Abd/Pelvis, OSH (02/28/25): New 8.1 [...] and chains and later positive for enterococci faecalis - TTE [...] - CTS following and would appreciate recs Assessment & Plan (03/04/2025 2:24 PM CDT): - CT Abd/Pelvis, OSH (02/28/25): New 8.1 [...] and chains and later positive for enterococci faecalis - TTE [...] - CTS following and would appreciate recs Assessment & Plan (03/03/2025 12:47 PM CDT): - CT Abd/Pelvis, OSH (02/28/25): New 8.1 [...] and chains and later positive for enterococci faecalis - ECHO [...] TTE to evaluate for other infectious source COPD (chronic obstructive pulmonary disease) Assessment & Plan (03/15/2025 2:06 PM CDT): - Home meds include Trelegy, fluticasone propionate PLAN: - Incruse and symbicort while in-patient Assessment & Plan (03/14/2025 6:44 PM CDT): - Home meds include Trelegy, fluticasone propionate PLAN: - Incruse and symbicort while in-patient Assessment & Plan (03/13/2025 8:02 AM CDT): - Home meds include Trelegy, fluticasone propionate PLAN: - Incruse and symbicort while in-patient Assessment & Plan (03/12/2025 11:01 AM CDT): - Home meds include Trelegy, fluticasone propionate PLAN: - Incruse and symbicort while in-patient Assessment & Plan (03/11/2025 11:38 AM CDT): - Home meds include Trelegy, fluticasone propionate PLAN: - Incruse and symbicort while in-patient Assessment & Plan (03/10/2025 11:57 AM CDT): - Home meds include Trelegy, fluticasone propionate PLAN: - Incruse and symbicort while in-patient Assessment & Plan (03/09/2025 2:54 PM CDT): - Home meds include Trelegy, fluticasone propionate PLAN: - Incruse and symbicort while in-patient Assessment & Plan (03/08/2025 7:38 AM CDT): - Home meds include Trelegy, fluticasone propionate PLAN: - Incruse and symbicort while in-patient Assessment & Plan (03/07/2025 7:30 AM CDT): - Home meds include Trelegy, fluticasone propionate PLAN: - Incruse and symbicort while in-patient Assessment & Plan (2025 2:48 PM CDT): - Home meds include Trelegy, fluticasone propionate PLAN: - Incruse and symbicort while in-patient Assessment & Plan (03/05/2025 1:00 PM CDT): - Home meds include Trelegy, fluticasone propionate PLAN: - Incruse and symbicort while in-patient Assessment & Plan (03/04/2025 2:24 PM CDT): - Home meds include Trelegy, fluticasone propionate PLAN: - Incruse and symbicort while in-patient Assessment & Plan (03/03/2025 11:52 AM CDT): - Home meds include Trelegy, fluticasone propionate PLAN: - Incruse and symbicort while in-patient Endocarditis, suspected 03/03/2025 Assessment & Plan (03/15/2025 2:06 PM CDT): - SINTIA came back for large vegetation [...] management for perioperative pain management per CTS Assessment & Plan (03/14/2025 6:44 PM CDT): - SINTIA came back for large vegetation [...] Will call CTS 03/15 AM to discuss Assessment & Plan (03/13/2025 10:12 AM CDT): - SINTIA came back for large vegetation [...] - Incentive spirometry for prevention of pneumonia Assessment & Plan (03/13/2025 8:02 AM CDT): - SINTIA came back for large vegetation [...] for CTS Pre-OP evaluation - F/u labs 8/25 am Assessment & Plan (03/12/2025 11:01 AM CDT): - SINTIA came back for large vegetation [...] for CTS Pre-OP evaluation - F/u labs 8/25 am Assessment & Plan (03/11/2025 11:38 AM CDT): - CT Abd/Pelvis, OSH (02/28/25): New 8.1 [...] and chains and later positive for enterococci faecalis - TTE [...] - PT/OT consulted for CTS Pre-OP evaluation Assessment & Plan (03/10/2025 12:45 PM CDT): - CT Abd/Pelvis, OSH (02/28/25): New 8.1 [...] and chains and later positive for enterococci faecalis - TTE [...] on incentive spirometry for prevention of pneumonia Assessment & Plan (03/09/2025 2:54 PM CDT): - CT Abd/Pelvis, OSH (02/28/25): New 8.1 [...] and chains and later positive for enterococci faecalis - TTE [...] on incentive spirometry for prevention of pneumonia Assessment & Plan (03/08/2025 1:03 PM CDT): - CT Abd/Pelvis, OSH (02/28/25): New 8.1 [...] and chains and later positive for enterococci faecalis - TTE [...] on incentive spirometry for prevention of pneumonia Assessment & Plan (03/07/2025 3:04 PM CDT): - CT Abd/Pelvis, OSH (02/28/25): New 8.1 [...] and chains and later positive for enterococci faecalis - TTE [...] would like multicenter rounds for tomorrow 03/08 Assessment & Plan (2025 2:48 PM CDT): - CT Abd/Pelvis, OSH (02/28/25): New 8.1 [...] and chains and later positive for enterococci faecalis - TTE [...] - CTS following and would appreciate recs Assessment & Plan (03/05/2025 1:00 PM CDT): - CT Abd/Pelvis, OSH (02/28/25): New 8.1 [...] and chains and later positive for enterococci faecalis - TTE [...] - CTS following and would appreciate recs Assessment & Plan (03/04/2025 2:24 PM CDT): - CT Abd/Pelvis, OSH (02/28/25): New 8.1 [...] and chains and later positive for enterococci faecalis - TTE [...] - CTS following and would appreciate recs Assessment & Plan (03/03/2025 12:47 PM CDT): - CT Abd/Pelvis, OSH (02/28/25): New 8.1 [...] and chains and later positive for enterococci faecalis - ECHO [...] TTE to evaluate for other infectious source Diverticulosis 03/02/2025 Assessment & Plan (03/15/2025 2:06 PM CDT): - SINTIA came back for large vegetation on mitral valve with severe mitral regurgitation. Per SINTIA, [facility] recommends multi team consult for approved recs [...] management for perioperative pain management per CTS Assessment & Plan (03/14/2025 6:44 PM CDT): - SINTIA came back for large vegetation on mitral valve with severe mitral regurgitation. Per SINTIA, [facility] recommends multi team consult for approved recs [...] Will call CTS 03/15 AM to discuss Assessment & Plan (03/13/2025 10:12 AM CDT): - SINTIA came back for large vegetation [...] - Incentive spirometry for prevention of pneumonia Assessment & Plan (03/13/2025 8:02 AM CDT): - SINTIA came back for large vegetation [...] Pre-OP evaluation - F/u labs 03/13 am Assessment & Plan (03/12/2025 11:01 AM CDT): - SINTIA came back for large vegetation [...] Pre-OP evaluation - F/u labs 03/13 am Assessment & Plan (03/11/2025 11:38 AM CDT): - CT Abd/Pelvis, OSH (02/28/25): New 8.1 [...] and chains and later positive for enterococci faecalis - TTE [...] - PT/OT consulted for CTS Pre-OP evaluation Assessment & Plan (03/10/2025 12:45 PM CDT): - CT Abd/Pelvis, OSH (02/28/25): New 8.1 [...] and chains and later positive for enterococci faecalis - TTE [...] on incentive spirometry for prevention of pneumonia Assessment & Plan (03/09/2025 2:54 PM CDT): - CT Abd/Pelvis, OSH (02/28/25): New 8.1 [...] and chains and later positive for enterococci faecalis - TTE [...] on incentive spirometry for prevention of pneumonia Assessment & Plan (03/08/2025 1:03 PM CDT): - CT Abd/Pelvis, OSH (02/28/25): New 8.1 [...] and chains and later positive for enterococci faecalis - TTE [...] on incentive spirometry for prevention of pneumonia Assessment & Plan (03/07/2025 3:04 PM CDT): - CT Abd/Pelvis, OSH (02/28/25): New 8.1 [...] and chains and later positive for enterococci faecalis - TTE [...] would like multicenter rounds for tomorrow 03/08 Assessment & Plan (2025 2:48 PM CDT): - CT Abd/Pelvis, OSH (02/28/25): New 8.1 [...] and chains and later positive for enterococci faecalis - TTE [...] - CTS following and would appreciate recs Assessment & Plan (03/05/2025 1:00 PM CDT): - CT Abd/Pelvis, OSH (02/28/25): New 8.1 [...] and chains and later positive for enterococci faecalis - TTE [...] - CTS following and would appreciate recs Assessment & Plan (03/04/2025 2:24 PM CDT): - CT Abd/Pelvis, OSH (02/28/25): New 8.1 [...] and chains and later positive for enterococci faecalis - TTE [...] - CTS following and would appreciate recs Assessment & Plan (03/03/2025 12:47 PM CDT): - CT Abd/Pelvis, OSH (02/28/25): New 8.1 [...] and chains and later positive for enterococci faecalis - ECHO [...] TTE to evaluate for other infectious source Assessment & Plan (03/02/2025 1:46 PM CDT): - Present on arrival - CT Abd/Pelvis, [...] PCR; discontinue Vancomycin if negative HTN (hypertension) 03/01/2025 Assessment & Plan (03/15/2025 2:06 PM CDT): - Home Rx: Metoprolol succinate 25 mg PO QHS, amlodipine 5 mg PO QD - BP stable PLAN: - Continue metoprolol succinate 25 - amLODIPine (Norvasc) tablet 5 mg Assessment & Plan (03/14/2025 6:44 PM CDT): - Home Rx: Metoprolol succinate 25 mg PO QHS, amlodipine 5 mg PO QD - BP stable PLAN: - Continue metoprolol succinate 25 - amLODIPine (Norvasc) tablet 5 mg Assessment & Plan (03/13/2025 8:02 AM CDT): - Home Rx: Metoprolol succinate 25 mg PO QHS, amlodipine 5 mg PO QD - BP stable, 119-126 systolic this AM PLAN: - Continue metoprolol succinate 25 - amLODIPine (Norvasc) tablet 5 mg Assessment & Plan (03/12/2025 7:19 AM CDT): - Home Rx: Metoprolol succinate 25 mg PO QHS, amlodipine 5 mg PO QD - BP stable, 119-126 systolic this AM PLAN: - Continue metoprolol succinate 25 - amLODIPine (Norvasc) tablet 5 mg Assessment & Plan (03/11/2025 11:38 AM CDT): - Home Rx: Metoprolol succinate 25 mg PO QHS, amlodipine 5 mg PO QD - BP stable, 119-126 systolic this AM PLAN: - Continue metoprolol succinate 25 - amLODIPine (Norvasc) tablet 5 mg Assessment & Plan (03/10/2025 11:57 AM CDT): - Home Rx: Metoprolol succinate 25 mg PO QHS, amlodipine 5 mg PO QD - BP stable, 119-126 systolic this AM PLAN: - Continue metoprolol succinate 25 - amLODIPine (Norvasc) tablet 5 mg Assessment & Plan (03/09/2025 2:54 PM CDT): - Home Rx: Metoprolol succinate 25 mg PO QHS, amlodipine 5 mg PO QD - BP stable, 119-126 systolic this AM PLAN: - Continue metoprolol succinate 25 - amLODIPine (Norvasc) tablet 5 mg Assessment & Plan (03/08/2025 7:38 AM CDT): - Home Rx: Metoprolol succinate 25 mg PO QHS, amlodipine 5 mg PO QD - BP stable, 119-126 systolic this AM PLAN: - Continue metoprolol succinate 25 - amLODIPine (Norvasc) tablet 5 mg Assessment & Plan (03/07/2025 7:30 AM CDT): - Home Rx: Metoprolol succinate 25 mg PO QHS, amlodipine 5 mg PO QD - BP stable, 119-126 systolic this AM PLAN: - Continue metoprolol succinate 25 - amLODIPine (Norvasc) tablet 5 mg Assessment & Plan (2025 2:48 PM CDT): - Home Rx: Metoprolol succinate 25 mg PO QHS, amlodipine 5 mg PO QD - BP stable, 119-126 systolic this AM PLAN: - Continue metoprolol succinate 25 - amLODIPine (Norvasc) tablet 5 mg Assessment & Plan (03/05/2025 1:00 PM CDT): - Home Rx: Metoprolol succinate 25 mg PO QHS, amlodipine 5 mg PO QD - BP stable, 119-126 systolic this AM PLAN: - Continue home Rx Assessment & Plan (03/04/2025 2:24 PM CDT): - Home Rx: Metoprolol succinate 25 mg PO QHS, amlodipine 5 mg PO QD - BP stable, 119-126 systolic this AM PLAN: - Continue home Rx Assessment & Plan (03/03/2025 11:52 AM CDT): - Home Rx: Metoprolol succinate 25 mg PO QHS, amlodipine 5 mg PO QD - BP stable, 119-126 systolic this AM PLAN: - Continue home Rx Assessment & Plan (03/02/2025 1:46 PM CDT): - Home Rx: Metoprolol succinate 25 mg PO QHS - BP stable, 119-126 systolic this AM PLAN: - Continue home Rx Assessment & Plan (03/01/2025 11:46 PM CDT): - Home Rx: Metoprolol succinate 25 mg PO QHS PLAN: - Continue home Rx Abscess of spleen 02/28/2025 Assessment & Plan (03/15/2025 2:06 PM CDT): - SINTIA came back for large vegetation [...] management for perioperative pain management per CTS Assessment & Plan (03/14/2025 6:44 PM CDT): - SINTIA came back for large vegetation [...] Will call CTS 03/15 AM to discuss Assessment & Plan (03/13/2025 10:12 AM CDT): - SINTIA came back for large vegetation [...] - Incentive spirometry for prevention of pneumonia Assessment & Plan (03/13/2025 8:02 AM CDT): - SINTIA came back for large vegetation [...] Pre-OP evaluation - F/u labs 03/13 am Assessment & Plan (03/12/2025 11:01 AM CDT): - SINTIA came back for large vegetation [...] Pre-OP evaluation - F/u labs 03/13 am Assessment & Plan (03/11/2025 11:38 AM CDT): - CT Abd/Pelvis, OSH (02/28/25): New 8.1 [...] and chains and later positive for enterococci faecalis - TTE [...] - PT/OT consulted for CTS Pre-OP evaluation Assessment & Plan (03/10/2025 12:45 PM CDT): - CT Abd/Pelvis, OSH (02/28/25): New 8.1 [...] and chains and later positive for enterococci faecalis - TTE [...] on incentive spirometry for prevention of pneumonia Assessment & Plan (03/09/2025 2:54 PM CDT): - CT Abd/Pelvis, OSH (02/28/25): New 8.1 [...] and chains and later positive for enterococci faecalis - TTE [...] on incentive spirometry for prevention of pneumonia Assessment & Plan (03/08/2025 1:03 PM CDT): - CT Abd/Pelvis, OSH (02/28/25): New 8.1 [...] and chains and later positive for enterococci faecalis - TTE [...] on incentive spirometry for prevention of pneumonia Assessment & Plan (03/07/2025 3:04 PM CDT): - CT Abd/Pelvis, OSH (02/28/25): New 8.1 [...] and chains and later positive for enterococci faecalis - TTE [...] would like multicenter rounds for tomorrow 03/08 Assessment & Plan (2025 2:48 PM CDT): - CT Abd/Pelvis, OSH (02/28/25): New 8.1 [...] and chains and later positive for enterococci faecalis - TTE [...] - CTS following and would appreciate recs Assessment & Plan (03/05/2025 1:00 PM CDT): - CT Abd/Pelvis, OSH (02/28/25): New 8.1 [...] and chains and later positive for enterococci faecalis - TTE [...] - CTS following and would appreciate recs Assessment & Plan (03/04/2025 2:24 PM CDT): - CT Abd/Pelvis, OSH (02/28/25): New 8.1 [...] and chains and later positive for enterococci faecalis - TTE [...] - CTS following and would appreciate recs Assessment & Plan (03/03/2025 12:47 PM CDT): - CT Abd/Pelvis, OSH (02/28/25): New 8.1 [...] and chains and later positive for enterococci faecalis - ECHO [...] TTE to evaluate for other infectious source Assessment & Plan (03/02/2025 1:46 PM CDT): - Present on arrival - CT Abd/Pelvis, [...] up MRSA PCR; discontinue Vancomycin if negative Assessment & Plan (03/02/2025 2:37 AM CDT): - Present on arrival - CT Abd/Pelvis, [...] up MRSA PCR; discontinue Vancomycin if negative Resolved Problems Problem Noted Date Diagnosed Date Resolved Date Diverticulitis 03/01/2025 03/02/2025 Assessment & Plan (03/02/2025 1:45 AM CDT): - Present on arrival - CT Abd/Pelvis, OSH (02/28/25): Moderate diverticulosis without evidence of diverticulitis. Moderate bilateral fat-containing inguinal hernia. PLAN: - Empiric Vancomycin and Zosyn Encounters Date Type Department Care Team Description 03/15/2025 11:24 AM CDT Anesthesia Event [facility] [address] [place] [phone] Alexa Page MD Polhemus, Kyle, MD 03/15/2025 8:55 AM CDT - 03/15/2025 2:40 PM CDT Surgery [facility] [address] [place] [phone] Rahul Hernandez MD Mitral valve replacement 03/15/2025 6:25 AM CDT Ancillary Procedure [facility] [address] [place] [address] Cornelia Serra MD Heis, Farah, MD 03/10/2025 8:54 AM CDT - 03/10/2025 10:10 AM CDT Surgery [facility] [address] [place] [address] Selene Duran MD Left Heart Cath 03/09/2025 6:03 PM CDT Anesthesia Event [facility] [address] [place] [phone] Prakash De La Torre, Carlitos Flores, DIANDRA 03/09/2025 5:45 PM CDT - 03/09/2025 7:28 PM CDT Surgery [facility] [address] [place] [address] Sedic, Vedrana, DMD EXTRACTION DENTAL (MULTIPLE) 2025 9:22 AM CDT - 2025 11:59 PM CDT Hospital Encounter [facility] [address] [place] [phone] Pramod Torres, Shira Cantu MD Discharge Disposition: Home or Self Care 03/01/2025 9:44 PM CDT - 03/23/2025 3:36 PM CDT Hospital Encounter [facility] [address] [place] [phone] Shira Harris MD Mayer, Joshua C, DO Wheeler, Joseph R, MD Eshetu, Nebiyu A, MD Lawrance, Rahul Santillan MD Cardiothoracic Surgery Discharge Disposition: Home Health Care [facility] 03/01/2025 Travel 03/01/2025 Telephone [facility] [address] [place] [phone] Shira Harris MD General (OSH transfer) 03/01/2025 Telephone [facility] [address] [place] [phone] Freddy Velazquez MD Hospital Admission from Last 3 Months Family History Medical History Relation Name Comments Renal Disease Father COPD - Chronic Obstructive Pulmonary Disease Mother Relation Name Status Comments Father Mother Social History Tobacco Use Types Packs/Day Years [...] and heating? Not hard at all 03/01/2025 [facility] [place] [facility] - Occupational Stress [...] were you homeless or living in a care home (including now)? No 03/01/2025 Sex and Gender Information Value Date Recorded Sex Assigned at Not on file Legal Sex Male 10:10 AM TURN LASTER Gender Identity Not on file Sexual Orientation [...] Mass Index 28.15 03/12/2025 2:30 PM CDT Plan of Treatment Upcoming Encounters Date Type Department Care Team (Late st Contact Info) Description 04/04/2025 11:00 AM CDT Office Visit [facility] - Cardiothoracic Surgery [address] [place] [phone] Rahul Hernandez MD [address] [place] [address] [address] [place] [address] 04/20/2025 11:30 AM CDT Office Visit [facility] - Infectious Disease [address] [place] [phone] Yesica Cabello PA-C [address] [place] [phone] 05/01/2025 9:00 AM CDT Appointment [facility] [address] [place] [phone] Garcia Gil MD [address] [place] [phone] Health Maintenance Due Date Last Done Comments COLOGUARD (AGES 45-75) - COLON CA SCREENING 1960 COLON MONITORING 1960 COLONOSCOPY - COLON CA SCREENING 1960 CT COLONOGRAPHY - COLON CA SCREENING 1960 Colorectal Cancer Screening 1960 FIT - COLON CA SCREENING 1960 FLEX SIG - COLON CA SCREENING 1960 LIPID TESTING 1960 DTAP/TDAP/TD VACCINES (1 - Tdap) 1979 PNEUMOCOCCAL VACCINE 50+ (1 of 2 - PCV) 1979 ZOSTER VACCINE (1 of 2) 2010 Respiratory Syncytial Virus (RSV) Vaccine Pt: or over 60 yrs (1 - Risk 60-74 years 1-dose series) 2020 DEPRESSION SCREENING 07/20/2024 COVID-19 VACCINE ( - 2023- season) 2025 INFLUENZA VACCINE (#1) 2025 SCREENING FOR DIABETES 03/23/2028 , 03/22/2025, 03/21/2025, Additional history exists HEPATITIS C SCREENING Completed 03/04/2025 , 03/04/2024, 03/04/2024, Additional history exists HIV SCREENING Completed 03/04/2025 HEPATITIS B VACCINE Aged Out No longe r eligible based on patient's age to complete this topic HIB VACCINE Aged Out No longer eligi ble based on patient's age to complete this topic HPV VACCINE Aged Out No longer eligi ble based on patient's age to complete this topic MENINGOCOCCAL (Group B) VACCINE SHARED DECISION-MAKING Aged Out No longer eligible based on patient's age to complete this topic MENINGOCOCCAL GROUPS A/C/Y/W VACCINE Aged Out No longer eligible based on patient's age to complete this topic Medical Devices Implanted Type Area Cps Team Lead Device Identifier Shelf Expiration Date Model / Serial / Lot Ndl Sut 3 Blnt Cut Cbl Strl Spnl Ss Implanted:Qty: 1 on 03/15/2025 by Rahul Hernandez MD at [facility] N/A: Sternum [employer] 08/17/2029 [id number] / / [id number] Plate 6 Hl O Cncv Bone Lf Nonster Implanted:Qty: 1 on 03/15/2025 by Rahul Hernandez MD at [facility] N/A: Sternum [employer] 115.604.06 / / Screw 14mm Lck Nonster Bone Lf Implanted:Qty: 6 on 03/15/2025 by Rahul Hernandez MD at [facility] N/A: Sternum [employer] 100.035.14 / / Screw 16mm Lck Nonster Bone Lf Implanted:Qty: 6 on 03/15/2025 by Rahul Hernandez MD at [facility] N/A: Sternum [employer] 100.035.16 / / Screw 18mm Lck Nonster Bone Lf Implanted:Qty: 6 on 03/15/2025 by Rahul Hernandez MD at [facility] N/A: Sternum [employer] 100.035.18 / / Valve Mtrl 31mm Resilia - [id number] Implanted:Qty: 1 on 03/15/2025 by Rahul Hernandez MD at [facility] N/A: Mitral Valve [employer] 10/12/2029 [id number] / [id number] / Ndl Sut 3 Blnt Cut Cbl Strl Spnl Ss Implanted:Qty: 1 on 03/15/2025 by Rahul Hernandez MD at [facility] N/A: Sternum [employer] [id number] / / Plate Bone H 6 Hl Nonster Lf Implanted:Qty: 2 on 03/15/2025 by Rahul Hernandez MD at [facility] N/A: Sternum [employer] 115.102.06 / / Explanted Type Area Cps Team Lead Device Identifier Shelf Expiration Date Model / Serial / Lot Plate Bone H 6 Hl Nonster Lf Explanted:Qty: 2 on 03/15/2025 by Rahul Hernandez MD at [facility] N/A: Mitral Valve [employer] 115.102.06 / / Plate 6 Hl O Cncv Bone Lf Nonster Explanted:Qty: 1 on 03/15/2025 by Rahul Hernandez MD at [facility] N/A: Mitral Valve [employer] 115.604.06 / / Screw 14mm Lck Nonster Bone Lf Explanted:Qty: 6 on 03/15/2025 by Rahul Hernandez MD at [facility] N/A: Mitral Valve [employer] 100.035.14 / / Screw 16mm Lck Nonster Bone Lf Explanted:Qty: 6 on 03/15/2025 by Rahul Hernandez MD at [facility] N/A: Mitral Valve [employer] 100.035.16 / / Screw 18mm Lck Nonster Bone Lf Explanted:Qty: 6 on 03/15/2025 by Rahul Hernandez MD at [facility] N/A: Mitral Valve [employer] 100.035.18 / / Procedures Procedure Name Priority Date/Time Associated Diagnosis Comments COMPREHENSIVE METABOLIC PANEL AM Draw 03/23/2025 12:54 AM CDT PT-INR AM Draw 03/23/2025 12:54 AM CDT PHOSPHORUS BLOOD Routine 03/23/2025 12:54 AM CDT MAGNESIUM BLOOD Routine 03/23/2025 12:54 AM CDT CALCIUM IONIZED WHOLE BLOOD AM Draw 03/23/2025 12:54 AM CDT CBC W/O DIFFERENTIAL Routine 03/23/2025 12:53 AM CDT IR CENTRAL LINE INSERT TUNNEL Routine 03/22/2025 12:28 PM CDT Endocarditis, suspected CKD (chronic kidney disease) stage 5, GFR less than 15 ml/min ([facility]) XR CHEST 1VW PORTABLE Routine 03/22/2025 4:27 AM CDT Mitral valve insufficiency, unspecified etiology COMPREHENSIVE METABOLIC PANEL AM Draw 03/22/2025 3:41 AM CDT PT-INR AM Draw 03/22/2025 3:41 AM CDT PHOSPHORUS BLOOD Routine 03/22/2025 3:41 AM CDT MAGNESIUM BLOOD Routine 03/22/2025 3:41 AM CDT CBC W/O DIFFERENTIAL Routine 03/22/2025 3:41 AM CDT CALCIUM IONIZED WHOLE BLOOD AM Draw 03/22/2025 3:41 AM CDT COMPREHENSIVE METABOLIC PANEL AM Draw 03/21/2025 4:35 AM CDT PT-INR AM Draw 03/21/2025 4:35 AM CDT PHOSPHORUS BLOOD Routine 03/21/2025 4:35 AM CDT MAGNESIUM BLOOD Routine 03/21/2025 4:35 AM CDT CBC W/O DIFFERENTIAL Routine 03/21/2025 4:35 AM CDT CALCIUM IONIZED WHOLE BLOOD AM Draw 03/21/2025 4:35 AM CDT XR CHEST 1VW [...] obstructive pulmonary disease, unspecified COPD type (HCC) COMPREHENSIVE METABOLIC PANEL AM Draw 03/20/2025 3:29 AM CDT PT-INR AM Draw 03/20/2025 3:29 AM CDT PHOSPHORUS BLOOD Routine 03/20/2025 3:29 AM CDT MAGNESIUM BLOOD Routine 03/20/2025 3:29 AM CDT CBC W/O DIFFERENTIAL Routine 03/20/2025 3:29 AM CDT CALCIUM IONIZED WHOLE BLOOD AM Draw 03/20/2025 3:29 AM CDT BASIC METABOLIC PANEL [...] AM CDT Mitral valve insufficiency, unspecified etiology HEPATIC FUNCTION PANEL Routine 4:28 AM CDT BASIC METABOLIC PANEL (CALCIUM TOTAL) STAT 03/19/2025 4:28 AM CDT PT-INR AM Draw 03/19/2025 4:28 AM CDT PHOSPHORUS BLOOD Routine 03/19/2025 4:28 AM CDT MAGNESIUM BLOOD Routine 03/19/2025 4:28 AM CDT CBC W/O DIFFERENTIAL Routine 03/19/2025 4:28 AM CDT CALCIUM IONIZED WHOLE BLOOD AM Draw 03/19/2025 4:28 AM CDT XR CHEST 1VW [...] obstructive pulmonary disease, unspecified COPD type (HCC) PHOSPHORUS BLOOD Routine 03/18/2025 4:19 AM CDT MAGNESIUM BLOOD Routine 03/18/2025 4:19 AM CDT CBC W/O DIFFERENTIAL Routine 03/18/2025 4:19 AM CDT COMPREHENSIVE METABOLIC PANEL Routine 03/18/2025 4:19 AM CDT CALCIUM IONIZED WHOLE BLOOD AM Draw 03/18/2025 4:19 AM CDT GLUCOSE - POINT OF CARE Routine 03/17/2025 8:36 PM CDT GLUCOSE - POINT OF CARE Routine 03/17/2025 6:40 PM CDT GLUCOSE - POINT OF CARE Routine 03/17/2025 11:37 AM CDT GLUCOSE - POINT OF CARE Routine 03/17/2025 7:55 AM CDT PHOSPHORUS BLOOD Routine 03/17/2025 4:21 AM CDT MAGNESIUM BLOOD Routine 03/17/2025 4:21 AM CDT CBC W/O DIFFERENTIAL Routine 03/17/2025 4:21 AM CDT COMPREHENSIVE METABOLIC PANEL Routine 03/17/2025 4:21 AM CDT CALCIUM IONIZED WHOLE BLOOD AM Draw 03/17/2025 4:21 AM CDT XR CHEST 1VW PORTABLE Routine 03/17/2025 4:10 AM CDT Mitral valve insufficiency, unspecified etiology Chronic obstructive pulmonary disease, unspecified COPD type (HCC) TRANSFUSE RED BLOOD CELL LEUKOREDUCED UNIT(S) Routine 03/16/2025 6:11 PM CDT TYPE + SCREEN PANEL STAT 03/16/2025 5 :39 PM CDT GLUCOSE - POINT OF CARE Routine 03/16/2025 5:07 PM CDT BASIC METABOLIC PANEL (CALCIUM TOTAL) Routine 03/16/2025 4:34 PM CDT CBC W/O DIFFERENTIAL Routine 03/16/2025 4:34 PM CDT GLUCOSE - [...] Endocarditis, 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) Bacteremia LACTIC ACID BLOOD Routine 03/16/2025 3:1 1 AM CDT BLOOD GASES ART + COOX PANEL Routine 03/16/2025 3:11 AM CDT HEMOGLOBIN A1C Routine 03/16/2025 3:11 AM CDT SVO2 FOR RECALIBRATION Routine 3:11 AM CDT PHOSPHORUS BLOOD Routine 03/16/2025 3:11 AM CDT MAGNESIUM BLOOD Routine 03/16/2025 3:11 AM CDT CBC W/O DIFFERENTIAL Routine 03/16/2025 3:11 AM CDT COMPREHENSIVE METABOLIC PANEL Routine 03/16/2025 3:11 AM CDT CALCIUM IONIZED WHOLE BLOOD AM Draw 03/16/2025 3:11 AM CDT GLUCOSE - POINT [...] BLOOD Timed 03/15/2025 8:2 2 PM CDT MAGNESIUM BLOOD Routine 03/15/2025 8:19 PM CDT PHOSPHORUS BLOOD Routine 03/15/2025 8:19 PM CDT CALCIUM IONIZED WHOLE BLOOD Routine 03/15/2025 8:19 PM CDT BLOOD GASES ART + COOX PANEL Routine 03/15/2025 8:19 PM CDT COMPREHENSIVE METABOLIC PANEL Routine 03/15/2025 8:19 PM CDT CBC W/O DIFFERENTIAL Routine 03/15/2025 8:19 PM CDT SVO2 FOR RECALIBRATION Routine 8:19 PM CDT GLUCOSE - POINT OF [...] Endocarditis, 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) Bacteremia SINTIA FOR ANESTHESIA Routine 03/15/2025 5: 40 PM CDT DIFFERENTIAL MANUAL STAT 03/15/2025 5:32 PM CDT SVO2 FOR RECALIBRATION Timed 5:32 PM CDT PTT STAT 03/15/2025 5:32 PM CDT PT-INR STAT 03/15/2025 5:32 PM CDT PHOSPHORUS BLOOD STAT 03/15/2025 5:32 PM CDT FIBRINOGEN ACTIVITY STAT 03/15/2025 5 :32 PM CDT CBC W AUTO DIFFERENTIAL STAT 03/15/2025 5:32 PM CDT CALCIUM IONIZED WHOLE BLOOD STAT 03/15/2025 5:32 PM CDT COMPREHENSIVE METABOLIC PANEL STAT 03/15/2025 5:32 PM CDT BLOOD GASES ART + COOX PANEL STAT 03/15/2025 5:32 PM CDT MAGNESIUM BLOOD Timed 03/15/2025 5:32 PM CDT CBC W/O DIFFERENTIAL Timed 03/15/2025 5:32 PM CDT LACTIC ACID BLOOD STAT 03/15/2025 5:3 2 PM CDT GLUCOSE - POINT OF CARE Routine 03/15/2025 5:30 PM CDT PT EVAL AND TREAT Routine 03/15/2025 5:2 2 PM CDT CULTURE FUNGUS OTHER+FUNGUS SMEAR Routine 03/15/2025 5:06 PM CDT CULTURE AFB+SMEAR STAT 03/15/2025 5:0 6 PM CDT CULTURE ANAEROBE Routine 03/15/2025 5:06 PM CDT CULTURE WOUND+GRAM STAIN STAT 03/15/2025 5:06 PM CDT TRANSFUSE FRESH FROZEN PLASMA UNIT(S) STAT 03/15/2025 4:28 PM CDT PERIPHERAL BLOCK Routine 03/15/2025 4:24 PM CDT TRANSFUSE RED BLOOD CELL LEUKOREDUCED UNIT(S) STAT 03/15/2025 4:15 PM CDT TRANSFUSE PLATELET PHERESIS UNIT(S) STAT 03/15/2025 4:12 PM CDT BLOOD GAS+COOX+LYTES+METAB ARTERIAL POCT Routine 03/15/2025 4:00 PM CDT TRANSFUSE RED BLOOD CELL LEUKOREDUCED UNIT(S) STAT 03/15/2025 3:30 PM CDT ACT PLUS - POCT ([facility]) Routine 3:17 PM CDT BLOOD GAS+COOX+LYTES+METAB ARTERIAL POCT Routine 03/15/2025 3:17 PM CDT TEG 6 GLOBAL HEMOSTASIS WITH HEPARIN NEUTRALIZATION STAT 03/15/2025 3:10 PM CDT CKD (chronic kidney disease) stage 5, GFR less than 15 ml/min (HCC) CBC W/O DIFFERENTIAL STAT 03/15/2025 3:10 PM CDT CKD (chronic kidney disease) stage 5, GFR less than 15 ml/min (HCC) PTT STAT 03/15/2025 3:10 PM CDT Mitral valve insufficiency, unspecified etiology PT-INR STAT 03/15/2025 3:10 PM CDT Mitral valve insufficiency, unspecified etiology BLOOD GAS+COOX+LYTES+METAB ARTERIAL POCT Routine 03/15/2025 2:59 PM CDT BLOOD GAS+COOX+LYTES+METAB ARTERIAL POCT Routine 03/15/2025 2:42 PM CDT ACT PLUS - POCT ([facility]) Routine 2:39 PM CDT FIBRINOGEN ACTIVITY STAT 03/15/2025 2 :34 PM CDT Mitral valve vegetation (HCC) PLATELET COUNT AUTO CITRATED BLOOD STAT 03/15/2025 2:33 PM CDT Mitral valve vegetation (HCC) ACT PLUS - POCT ([facility]) Routine 2:07 PM CDT BLOOD GAS+COOX+LYTES+METAB ARTERIAL POCT Routine 03/15/2025 2:06 PM CDT PATHOLOGY TISSUE Routine 03/15/2025 1:53 PM CDT Mitral valve insufficiency, unspecified etiology BLOOD GAS+COOX+LYTES+METAB ARTERIAL POCT Routine 03/15/2025 1:30 PM CDT ACT PLUS - POCT ([facility]) Routine 1:29 PM CDT BLOOD GAS+COOX+LYTES+METAB ARTERIAL POCT Routine 03/15/2025 1:15 PM CDT ACT PLUS - POCT ([facility]) Routine 1:14 PM CDT ACT PLUS - POCT ([facility]) Routine 1:04 PM CDT ACT PLUS - POCT ([facility]) Routine 12:53 PM CDT BLOOD GAS+COOX+LYTES+METAB ARTERIAL POCT Routine 03/15/2025 12:52 PM CDT ACT PLUS - POCT ([facility]) Routine 12:44 PM CDT BLOOD GAS+COOX+LYTES+METAB ARTERIAL POCT Routine 03/15/2025 12:33 PM CDT PULMONARY ARTERY CATHETER NOTE Routine 03/15/2025 12:19 PM CDT PULMONARY ARTERY CATHETER NOTE Routine 03/15/2025 12:19 PM CDT CENTRAL LINE NOTE Routine 03/15/2025 12:19 PM CDT ENDOTRACHEAL TUBE NOTE Routine 12:18 PM CDT ARTERIAL LINE NOTE Routine 03/15/2025 12:18 PM CDT BLOOD GAS KATHY+LYTES+METAB+COOX POC NOTIF Routine 03/15/2025 8:06 AM CDT BLOOD GAS ART+LYTES+METAB+COOX POC NOTIF STAT 03/15/2025 8:06 AM CDT PHOSPHORUS BLOOD AM Draw 03/15/2025 6:31 AM CDT MAGNESIUM BLOOD AM Draw 03/15/2025 6:31 AM CDT COMPREHENSIVE METABOLIC PANEL AM Draw 03/15/2025 6:31 AM CDT CBC W AUTO DIFFERENTIAL AM Draw 03/15/2025 6:31 AM CDT ECHO ANES SINTIA INTRAOP Routine 03/15/2025 6:23 AM CDT Endocarditis, suspected TRANSFUSE RED BLOOD CELL LEUKOREDUCED UNIT(S) Routine 03/14/2025 3:15 PM CDT PREPARE RBC LEUKOREDUCED UNIT Routine 03/14/2025 5:21 AM CDT PREPARE RBC LEUKOREDUCED UNIT Routine 03/14/2025 5:21 AM CDT PREPARE RBC LEUKOREDUCED UNIT Routine 03/14/2025 5:21 AM CDT PREPARE FFP UNIT(S) STAT 03/14/2025 5 :21 AM CDT PREPARE PLATELET PHERESIS UNIT(S) Routine 03/14/2025 5:21 AM CDT PREPARE RBC LEUKOREDUCED UNIT Routine 03/14/2025 5:21 AM CDT PREPARE PLATELET PHERESIS UNIT(S) Routine 03/14/2025 5:21 AM CDT PREPARE FFP UNIT(S) Routine 03/14/2025 5 :21 AM CDT PREPARE RBC LEUKOREDUCED UNIT Routine 03/14/2025 5:21 AM CDT PREPARE RBC LEUKOREDUCED UNIT Routine 03/14/2025 5:21 AM CDT TYPE + SCREEN PANEL Routine 03/14/2025 5 :21 AM CDT PHOSPHORUS BLOOD AM Draw 03/14/2025 5:21 AM CDT MAGNESIUM BLOOD AM Draw 03/14/2025 5:21 AM CDT COMPREHENSIVE METABOLIC PANEL AM Draw 03/14/2025 5:21 AM CDT CBC W AUTO DIFFERENTIAL AM Draw 03/14/2025 5:21 AM CDT URINALYSIS REFLEX MICROSCOPIC REFLEX CULTURE Routine 03/13/2025 9:10 AM CDT PHOSPHORUS BLOOD AM Draw 03/13/2025 6:03 AM CDT MAGNESIUM BLOOD AM Draw 03/13/2025 6:03 AM CDT COMPREHENSIVE METABOLIC PANEL AM Draw 03/13/2025 6:03 AM CDT CBC W AUTO DIFFERENTIAL AM Draw 03/13/2025 6:03 AM CDT PT EVAL AND TREAT Routine 03/11/2025 9:0 9 AM CDT OT EVAL AND TREAT Routine 03/11/2025 9:0 9 AM CDT PHOSPHORUS BLOOD AM Draw 03/11/2025 6:06 AM CDT MAGNESIUM BLOOD AM Draw 03/11/2025 6:06 AM CDT COMPREHENSIVE METABOLIC PANEL AM Draw 03/11/2025 6:06 AM CDT CBC W AUTO DIFFERENTIAL AM Draw 03/11/2025 6:06 AM CDT BLOOD TYPE VERIFICATION Routine 03/10/2025 10:02 PM CDT TYPE + SCREEN PANEL Routine 03/10/2025 8 :[address] CHEST WO CONTRAST Routine 03/10/2025 2:43 PM CDT Mitral valve vegetation (HCC) CCL LEFT HEART CATH Routine 03/10/2025 12:49 PM CDT Endocarditis, 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 US RETROPERITONEAL COMPLETE Routine 03/09/2025 10:35 AM CDT CKD (chronic kidney disease) stage 5, GFR less than 15 ml/min ([facility]) CBC W AUTO DIFFERENTIAL AM Draw 03/09/2025 4:46 AM CDT PHOSPHORUS BLOOD AM Draw 03/09/2025 4:45 AM CDT MAGNESIUM BLOOD AM Draw 03/09/2025 4:45 AM CDT COMPREHENSIVE METABOLIC PANEL AM Draw 03/09/2025 4:45 AM CDT VITAMIN D 25-HYDROXY AM Draw 03/08/2025 5:06 AM CDT PHOSPHORUS BLOOD AM Draw 03/08/2025 5:06 AM CDT MAGNESIUM BLOOD AM Draw 03/08/2025 5:06 AM CDT COMPREHENSIVE METABOLIC PANEL AM Draw 03/08/2025 5:06 AM CDT PT-INR AM Draw 03/08/2025 5:05 AM CDT FERRITIN Routine 03/08/2025 5:05 AM CDT IRON + TRANSFERRIN PANEL Routine 03/08/2025 5:05 AM CDT PTH INTACT W/O CALCIUM AM Draw 5:05 AM CDT CBC W AUTO DIFFERENTIAL AM Draw 03/08/2025 5:05 AM CDT VAS CAROTID DUPLEX BILATERAL Routine 03/07/2025 4:07 PM CDT Calcification of mitral valve PHOSPHORUS BLOOD AM Draw 03/07/2025 5:26 AM CDT MAGNESIUM BLOOD AM Draw 03/07/2025 5:26 AM CDT COMPREHENSIVE METABOLIC PANEL AM Draw 03/07/2025 5:26 AM CDT CBC W AUTO DIFFERENTIAL AM Draw 03/07/2025 5:26 AM CDT GLUCOSE - POINT OF CARE Routine 2025 4:46 PM CDT ECHO SINTIA COMPLETE Routine 2025 11:32 AM CDT Calcification of mitral valve PHOSPHORUS BLOOD AM Draw 2025 4:24 AM CDT MAGNESIUM BLOOD AM Draw 2025 4:24 AM CDT COMPREHENSIVE METABOLIC PANEL AM Draw 2025 4:24 AM CDT CBC W AUTO DIFFERENTIAL AM Draw 2025 4:24 AM CDT PHOSPHORUS BLOOD AM Draw 03/05/2025 5:28 AM CDT MAGNESIUM BLOOD AM Draw 03/05/2025 5:28 AM CDT COMPREHENSIVE METABOLIC PANEL AM Draw 03/05/2025 5:28 AM CDT CBC W AUTO DIFFERENTIAL AM Draw 03/05/2025 5:28 AM CDT CULTURE BLOOD Timed 03/04/2025 11:09 AM CDT Abscess of spleen Endocarditis, 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) Bacteremia CULTURE BLOOD Timed 03/04/2025 11:09 AM CDT Abscess of spleen Endocarditis, 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) Bacteremia HEPATITIS C AB SCREEN RFLX NAAT QUANT Routine 03/04/2025 6:36 AM CDT HEPATITIS B PANEL AM Draw 03/04/2025 6:3 6 AM CDT HIV-1 HIV-2 ANTIBODY + HIV P24 AG PANEL Routine 03/04/2025 6:36 AM CDT PHOSPHORUS BLOOD AM Draw 03/04/2025 6:36 AM CDT MAGNESIUM BLOOD AM Draw 03/04/2025 6:36 AM CDT COMPREHENSIVE METABOLIC PANEL AM Draw 03/04/2025 6:36 AM CDT CBC W AUTO DIFFERENTIAL AM Draw 03/04/2025 6:36 AM CDT XR PANOREX Routine 03/03/2025 4:22 PM CDT Abscess of spleen Calcification of mitral valve URINE DRUG SCREEN IMMUNOASSAY Routine 03/03/2025 12:34 PM CDT VANCOMYCIN LEVEL RANDOM Routine 03/03/2025 5:00 AM CDT PHOSPHORUS BLOOD AM Draw 03/03/2025 5:00 AM CDT MAGNESIUM BLOOD AM Draw 03/03/2025 5:00 AM CDT COMPREHENSIVE METABOLIC PANEL AM Draw 03/03/2025 5:00 AM CDT CBC W AUTO DIFFERENTIAL AM Draw 03/03/2025 5:00 AM CDT VANCOMYCIN LEVEL RANDOM Timed 03/02/2025 4:43 PM CDT ECHO COMPLETE W CONTRAST Routine 03/02/2025 12:17 PM CDT Abscess of spleen URINALYSIS REFLEX MICROSCOPIC REFLEX CULTURE Routine 03/02/2025 10:44 AM CDT MRSA PCR STAT 03/02/2025 8:47 AM CDT MONONUCLEOSIS SCREEN AM Draw 03/02/2025 5:34 AM CDT PHOSPHORUS BLOOD AM Draw 03/02/2025 5:34 AM CDT MAGNESIUM BLOOD AM Draw 03/02/2025 5:34 AM CDT COMPREHENSIVE METABOLIC PANEL STAT 03/02/2025 5:34 AM CDT CBC W AUTO DIFFERENTIAL AM Draw 03/02/2025 5:34 AM CDT VANCOMYCIN LEVEL RANDOM STAT 03/02/2025 5:33 AM CDT BLOOD CULTURE ID PANEL Routine 5:33 AM CDT CULTURE BLOOD Timed 03/02/2025 5:33 AM CDT CULTURE BLOOD Timed 03/02/2025 5:33 AM CDT from Last 3 Months Results * (ABNORMAL) CALCIUM IONIZED WHOLE BLOOD (03/23/2025 12:54 AM CDT) Only the most recent of10 resultswithin the time period is included. Calcium Ionized 1.16 mmol/L 03/23/2025 1:17 AM CDT [facility] pH 7.41 7.35 - 7.45 pH 03/23/2025 1:17 AM CDT [facility] Ionized Calcium pH Adjusted 1.16(L) 1.19 - 1.34 mmol/L 03/23/2025 1:17 AM CDT [facility] Blood BLOOD SPECIMEN / Unknown Lab Venipuncture / Unknown 03/23/2025 12:54 AM CDT 03/23/2025 1:12 AM CDT Mariya Botello PA-C LAB - CHEMISTRY ORDERABLES F inal Result Performing Organization Address [facility]/ZIP Co de Phone Number [address] [phone], [facility] [phone] * (ABNORMAL) PT-INR (03/23/2025 12:54 AM CDT) Only the most recent of8 resultswithin the time period is included. PT 15.9(H) 12.1 - 14.8 Seconds 03/23/2025 1:37 AM CDT [facility] INR 1.3 See Comment 03/23/2025 1:37 AM CDT [facility] Comment:The suggested therap eutic range for [...] O RDERABLES Final Result Performing Organization Address [facility] Co de Phone Number [address] [phone], [facility] [phone] * (ABNORMAL) COMPREHENSIVE METABOLIC PANEL (03/23/2025 12:54 AM CDT) Only the most recent of22 resultswithin the time period is included. BUN 61(H) 7 - 26 mg/dL 03/23/2025 1:42 AM CDT [facility] Creatinine 2.95(H) 0.71 - 1.16 mg/dL 03/23/2025 1:42 AM CDT [facility] Sodium 135(L) 136 - 145 mmol/L 03/23/2025 1:42 AM CDT [facility] Potassium 4.6(H) 3.5 - 4.5 mmol/L 03/23/2025 1:42 AM [facility] Chloride 102 98 - 107 mmol/L 03/23/2025 1:42 AM [facility] CO2 24 22 - 29 mmol/L 03/23/2025 1:42 AM [facility] Glucose 101(H) 70 - 99 mg/dL 03/23/2025 1:42 AM [facility] Calcium 9.0 8.4 - 10.2 mg/dL 03/23/2025 1:42 AM [facility] Protein Total 7.1 6.0 - 8.3 g/dL 03/23/2025 1:42 AM [facility] Albumin 3.2(L) 3.4 - 5.0 g/dL 03/23/2025 1:42 AM [facility] Bilirubin Total 0.2 0.2 - 1.2 mg/dL 03/23/2025 1:42 AM [facility] Alkaline Phosphatase 168(H) 40 - 150 U/L 03/23/2025 1:42 AM [facility] ALT 67(H) 5 - 55 U/L 03/23/2025 1:42 AM [facility] AST 43(H) 5 - 34 U/L 03/23/2025 1:42 AM [facility] Anion Gap 9 6 - 16 03/23/2025 1:42 AM [facility] BUN/Creatinine Ratio 21 7 - 23 03/23/2025 1:42 AM [facility] Osmolality Calculated 297(H) 275 - 295 mOsm/kg 03/23/2025 1:42 AM [facility] Albumin/Globulin Ratio 0.8(L) 1.1 - 2.3 03/23/2025 1:42 AM [facility] eGFR by CKD-EPI 23(L) >=90 mL/min/1.7 3 m2 03/23/2025 1:42 AM [facility] Comment:Estimated Glomerular Filtration Rate (eGFR) calculated using the CKD-EPI Creatinine Equation (2020), per the National Kidney Foundation and [place] Society of Nephrology recommendations. Blood BLOOD SPECIMEN / Unknown Lab Venipuncture / Unknown 03/23/2025 12:54 AM CDT 03/23/2025 1:16 AM CDT Rahul Hernandez MD LAB - CHEMISTRY ORD ERABLES Final Result Performing Organization Address [facility]/ZIP Co de Phone Number [address] [address], [facility] [phone] * PHOSPHORUS BLOOD (03/23/2025 12:54 AM CDT) Only the most recent of23 resultswithin the time period is included. Phosphorus 3.7 2.8 - 5.1 mg/dL 03/23/2025 1:42 AM CDT [facility] Blood BLOOD SPECIMEN / Unknown Lab Venipuncture / Unknown 03/23/2025 12:54 AM CDT 03/23/2025 1:16 AM CDT Mariya Botello PA-C LAB - CHEMISTRY ORDERABLES F inal Result Performing Organization Address [facility] Co de Phone Number [address] [phone], [facility] [phone] * MAGNESIUM BLOOD (03/23/2025 12:54 AM CDT) Only the most recent of23 resultswithin the time period is included. Magnesium 2.0 1.6 - 2.6 mg/dL 03/23/2025 1:42 AM CDT [facility] Blood BLOOD SPECIMEN / Unknown Lab Venipuncture / Unknown 03/23/2025 12:54 AM CDT 03/23/2025 1:16 AM CDT Mariya Botello PA-C LAB - CHEMISTRY ORDERABLES F inal Result Performing Organization Address City/[facility]/ZIP Co de Phone Number [address] [address], [facility] [phone] * (ABNORMAL) CBC W/O DIFFERENTIAL (03/23/2025 12:53 AM CDT) Only the most recent of13 resultswithin the time period is included. WBC 12.0(H) 4.0 - 10.7 x10E9/L 03/23/2025 1:22 AM [facility] RBC Count 3.22(L) 4.30 - 5.80 x10E12/L 03/23/2025 1:22 AM [facility] Hemoglobin 9.1(L) 13.3 - 17.5 g/dL 03/23/2025 1:22 AM [facility] Hematocrit 29.0(L) 38.7 - 51.1 % 03/23/2025 1:22 AM [facility] MCV 90.1 80.0 - 98.0 fL 03/23/2025 1:22 AM [facility] MCH 28.3 26.7 - 33.6 pg 03/23/2025 1:22 AM [facility] MCHC 31.4(L) 31.7 - 36.3 g/dL 03/23/2025 1:22 AM [facility] RDW-CV 19.8(H) 11.3 - 14.8 % 03/23/2025 1:22 AM [facility] Platelet Count 334 150 - 420 x10E9/L 03/23/2025 1:22 AM [facility] MPV 10.2 7.8 - 11.4 fL 03/23/2025 1:22 AM [facility] Blood BLOOD SPECIMEN / Unknown Lab Venipuncture / Unknown 03/23/2025 12:53 AM CDT 03/23/2025 1:15 AM CDT us Mariya Botello PA-C LAB - HEMATOLOGY ORDERABLES Final Result [facility] [address] [place] [address], 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 FLUOROSCOPY DOSE: [...] evaluation, please review the evaluation forms in [facility]. For details on monitored clinical parameters during the intra-service sedation time, please review the procedure nurse documentation in [facility]. I was present for the Entire procedure. Procedure Note Garcia Gil MD - 03/22/2025 PROCEDURE: IR CENTRAL LINE INSERT TUNNEL DATE/TIME OF EXAM: 03/22/2025 12:53 PM CLINICAL INFORMATION: None relevant/not provided if blank. 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 FLUOROSCOPY DOSE: [...] response to care. Intra-service sedation start time [id number] and end time was 1228 during which I was present. Total physician intra-service sedation time was 14 minutes. For details on pre-moderate sedation and post-moderate sedation patient evaluation, please reviewthe evaluation forms in [facility]. For details on monitored clinical parameters during the intra-service sedation time, please review the procedurenurse documentation in [facility]. I was present for the Entire procedure. IMPRESSION: Successful Right internal jugular tunneled Dual Lumen Powerlineplacement. > Interpreting Provider: Garcia Gil MD on 03/22/2025 2:04 PM us Rahul Hernandez MD IR ORDERABLES Fin al Result * XR Chest 1Vw Portable (03/22/2025 4:27 AM CDT) Only the most recent of10 resultswithin the time period is included. Anatomical Region Laterality Modality Chest Digital Radiogra phy 03/22/2025 8:55 AM CDT Narrative 03/22/2025 7:08 PM CDT PROCEDURE: XR CHEST 1VW PORTABLE, DATE/TIME OF EXAM: 03/22/2025 4:27 AM, LOCATION [facility] INDICATION: I34.0: Mitral valve insufficiency, unspecified etiology [...] spine. Report dictated by Jamie Rucker MD, (residential sales consultant). > Dictated by Hydrographic Engineer I, Jamie Barriga MD have personally reviewed and interpreted this examination/study. > Interpreting Provider: Jamie Barriga MD on 03/22/2025 7:08 PM Procedure Note Jamie Barriga MD - 03/22/2025 PROCEDURE: XR CHEST 1VW PORTABLE, DATE/TIME OF EXAM: 03/22/2025 4:27 AM, LOCATION [facility] INDICATION: I34.0: Mitral valve insufficiency, unspecified etiology [...] spine. Report dictated by Jamie Rucker MD, (residential sales consultant). > Dictated by Hydrographic Engineer I, Jamie Barriga MD have personally reviewed and interpreted this examination/study. > Interpreting Provider: Jamie Barriga MD on 03/22/2025 7:08 PM Buffy Jang MANAGER PRODUCE-ORDER PROCESSING SPECIALIST DIAGNOSTIC IMAGI NG ORDERABLES Final Result * EKG 12-Lead (03/20/2025 4:54 AM CDT) Only the most recent of5 resultswithin the time period is included. Ventricular Rate 79 BPM [facility] MUSE Atrial Rate 79 BPM [facility]USE P-R Interval 260 ms [facility] MUSE QRS Duration ms 90 ms [facility] MUSE Q-T Interval ms 404 ms [facility] MUSE QTC Calculation (Bezet) 463 ms [facility] MUSE Calculated P [place] 37 degrees [facility] MUSE Calculated R [place] 37 degrees [facility] MUSE Calculated T [place] 32 degrees [facility] MUSE Interpretation EKG SINUS RHYTHM WITH 1ST DEGREE A-V BLOCK LOW VOLTAGE QRS BORDERLINE ECG WHEN COMPARED WITH ECG OF 19-MAR-2025 05:45, NO SIGNIFICANT CHANGE COMPARED WITH PRIOR EKG Confirmed by PRASAD LOUIS MD ([id number]) on 03/20/2025 9:58:49 PM [facility] MUSE 03/20/2025 4:54 AM CDT 03/20/2025 9:58 PM CDT us Nayanbita Hernandez MANAGER PRODUCE-ORDER PROCESSING SPECIALIST ECG ORDERABLES Ace mulu Result - Final [facility] * (ABNORMAL) BASIC METABOLIC PANEL (CALCIUM TOTAL) (03/19/2025 8:44 PM CDT) Only the most recent of3 resultswithin the time period is included. BUN 54(H) 7 - 26 mg/dL 03/19/2025 9:27 PM [facility] Creatinine 2.92(H) 0.71 - 1.16 mg/dL 03/19/2025 9:27 PM [facility] Sodium 134(L) 136 - 145 mmol/L 03/19/2025 9:27 PM [facility] Potassium 3.7 3.5 - 4.5 mmol/L 03/19/2025 9:27 PM [facility] Chloride 101 98 - 107 mmol/L 03/19/2025 9:27 PM [facility] CO2 22 22 - 29 mmol/L 03/19/2025 9:27 PM [facility] Glucose 122(H) 70 - 99 mg/dL 03/19/2025 9:27 PM [facility] Calcium 8.7 8.4 - 10.2 mg/dL 03/19/2025 9:27 PM [facility] Anion Gap 11 6 - 16 03/19/2025 9:27 PM CDT [facility] BUN/Creatinine Ratio 18 7 - 23 03/19/2025 9:27 PM CDT [facility] Osmolality Calculated 294 275 - 295 mOsm/kg 03/19/2025 9:27 PM CDT [facility] eGFR by CKD-EPI 23(L) >=90 mL/min/1.7 3 m2 03/19/2025 9:27 PM CDT [facility] Comment:Estimated Glomerular Filtration Rate (eGFR) calculated using the CKD-EPI Creatinine Equation (2020), per the National Kidney Foundation and [place] Society of Nephrology recommendations. Blood BLOOD SPECIMEN / Unknown Venipuncture / Unknown 03/19/2025 8:44 PM CDT 03/19/2025 8:58 PM CDT us Nayanbiat Hernandez MANAGER PRODUCE-ORDER PROCESSING SPECIALIST LAB - CHEMISTRY ORD ERABLES Final Result [facility] [address] [place] [phone], [facility] [phone] * ECHO COMPLETE W CONTRAST (03/19/2025 10:47 AM CDT) Only the most recent of2 resultswithin the time period is included. IVSd 2D 0.99 cm [facility] CV FUJ I PACS LVIDd 4.303 cm [facility] CV FUJ I PACS LVIDs 2.878 cm [facility] CV FUJ I PACS LVOT diam 1.94 cm [facility] CV FUJ I PACS LVPWd 1.189 cm [facility] CV FUJ I PACS LV biplane EF 67.255 % [facility] CV FUJI PACS LV A2C EF 59.742 % [facility] CV FUJ I PACS LV A4C EF 72.856 % [facility] CV FUJ I PACS LV EDV A2C 100.563 ml [facility] CV FU JI PACS LV EDV A4C 142.773 ml [facility] CV FU JI PACS LV ESV A2C 40.485 ml SSM CV FU JI PACS LV ESV A4C 38.754 ml [facility]SM CV FU JI PACS LVOT pk grad 6.299 mmHg SSM CV FUJI PACS LVOT pk trace 125.487 cm/s SSM CV F UJI PACS LVOT VTI 21.326 cm SSM CV FUJ I PACS RV-valdez basal diam 3.541 cm SSM CV FUJI PACS RVIDd 3.315 cm SSM CV FUJ I PACS RVOT diam Doppler 2.414 cm SS M CV FUJI PACS RVOT pk trace 88.733 cm/s SSM CV F UJI PACS RVOT VTI 15.158 cm SSM CV FUJ I PACS LA size 4.112 cm SSM CV FUJ I PACS LA vol BP 78.882 ml SSM CV FUJ I PACS RA area 17.37 cm SSM CV FUJI PACS AV area pk trace 2.416 cm SSM CV FUJI PACS AV area cont VTI 2.313 cm SSM CV FUJI PACS AV pk grad 9.427 mmHg SSM CV FU JI PACS AV mn grad 5.644 mmHg SSM CV FU JI PACS AV pk trace 153.514 cm/s SSM CV [facility] I PACS AV VTI 27.253 cm SSM CV [facility] I PACS MV A pk trace 97.364 cm/s SSM CV F UJI PACS MV E pk trace 123.515 cm/s SSM CV F UJI PACS MV E' lateral trace 4.132 cm/s SS M CV FUJI PACS MV mn grad 2.134 mmHg SSM CV FU JI PACS MV VTI 25.234 cm SSM CV [facility] I PACS PV pk trace 101.698 cm/s SSM CV FUJ I PACS PV VTI 13.746 cm [facility]SM CV [facility] I PACS TAPSE 1.405 cm SSM CV [facility] I PACS Ascending aorta 3.209 cm [facility] Diam Expiration 2.335 cm [facility] AV area index 1.129 cm /m [...] no pericardial effusion. Patient Info Name: Marshall Mercer Age: 65 years : 1960 Gender: Male Ht: 67 in Wt: 191 lb BSA: 2.05 m2 HR: 77 bpm BP: 117 / 81 mmHg Heart Rhythm: Sinus Rhythm Exam Date: 03/19/2025 10:16 AM Patient Status: I/P Study Site: [facility] Primary Location: [facility] EStud Info Technical Quality: Fair Exam Type: ECHO [...] Provider: Rahul Hernandez Attending Physician: Rahul Hernandez Baseball Scout: Jose G Casper Left Ventricle The left [...] VTI) 2.46 cm2/m2 PV Area (Cont Eq Trace) 4.0 cm2 PV Area Index (Cont Eq Trace) 1.95 cm2/m2 Mitral Valve Name Value Normal [...] 2.31 cm2 >=2.00 AV Area (Cont Eq Trace) 2.42 cm2 AV DI (VTI) 0.78 AV DI (Trace) 0.82 AV Regurgitation 2D LVOT Area 2.95 [...] no pericardial effusion. Patient Info Name: Marshall Mercer Age: 65 years : 1960 Gender: Male Ht: 67 in Wt: 191 lb BSA: 2.05 m2 HR: 77 bpm BP: 117 / 81 mmHg Heart Rhythm: Sinus Rhythm Exam Date: 03/19/2025 10:16 AM Patient Status: I/P Study Site: [facility] Primary Location: [facility] EStudy Info Technical Quality: Fair Exam Type: ECHO COMPLETE W CONTRAST Indications I34.0 - Mitral valve insufficiency, unspecified etiology Procedure(s) * A complete 2D, color Doppler, spectral Doppler, and M-Modetransthoracic echocardiogram was performed. Contrast/Agitated Saline Contrast / Saline: Definity Amount: 1.00 ml Administered By: Jose G Casper Reaction to Contrast: no Staff Referring Physician: Rahul Hernandez Ordering Provider: Rahul Hernandez Attending Physician: Rahul Hernandez Baseball Scout: Jose G Casper Left Ventricle The left [...] VTI) 2.46 cm2/m2 PV Area (Cont Eq Trace) 4.0 cm2 PV Area Index (Cont Eq Trace) 1.95 cm2/m2 Mitral Valve Name Value Normal [...] 2.31 cm2 >=2.00 AV Area (Cont Eq Trace) 2.42 cm2 AV DI (VTI) 0.78 AV DI (Trace) 0.82 AV Regurgitation 2D LVOT Area 2.95 [...] by Raul Harmon on 03/20/2025 04:35 AM Rahul Hernandez MD ECHO CHELY Herring al Result * GLUCOSE - POINT OF CARE (03/19/2025 8:22 AM CDT) Only the most recent of23 resultswithin the time period is included. [facility] Glucose WB/POC 89 70 - 99 mg/dL 03/19/2025 8:27 AM T [facility] Specimen Type Arterial/C apillary 03/19/2025 8:27 AM T [facility] Blood BLOOD SPECIMEN / Unknown 03/19/2025 8:22 AM CDT 03/19/2025 8:27 AM CDT Rahul Hernandez MD LAB - POINT OF CARE ORDERABLES Final Result [facility] [address] [place] [address], [place] [phone] * (ABNORMAL) HEPATIC FUNCTION PANEL (03/19/2025 4:28 AM CDT) [facility] Protein Total 6.2 6.0 - 8.3 g/dL 025 7:34 AM [facility] Albumin 3.1(L) 3.4 - 5.0 g/dL 03/19/2025 7:34 AM [facility] Bilirubin Total 0.4 0.2 - 1.2 mg/dL 02/19 7:34 AM [facility] Bilirubin Conjugated 0.2 0.1 - 0.5 mg/dL 03/19/2025 7:34 AM [facility] Bilirubin Unconjugated 0.2 Unconjugated Bilirubin is a calculated value: Reference ranges have not been established. mg/dL 03/19/2025 7:34 AM [facility] Alkaline Phosphatase 198(H) 40 - 150 U/L 03/19/2025 7:34 AM [facility] ALT 166(H) 5 - 55 U/L 03/19/2025 7:34 AM [facility] AST 173(H) 5 - 34 U/L 03/19/2025 7:34 AM [facility] Albumin/Globulin Ratio 1.0(L) 1.1 - 2.3 03/19/2025 7:34 AM [facility] Blood BLOOD SPECIMEN / Unknown Venipuncture / Unknown 03/19/2025 4:28 AM CDT 03/19/2025 4:38 AM CDT us Jennyfer Dallas DO LAB - CHEMISTRY ORDERABLES Final Result Performing Organization Address City/State/[facility] Co de Phone Number [address] [address], [facility] [phone] * TRANSFUSE RED BLOOD CELL LEUKOREDUCED UNIT(S) (03/16/2025 10:21 PM CDT) us Rahul Hernandez MD NURSING - BLOOD PRO D TRANSFUSION Final Result * TYPE + SCREEN PANEL (03/16/2025 5:39 PM CDT) Only the most recent of3 resultswithin the time period is included. Antibody Screen NEG 6:34 PM CDT [facility]OD [facility] LAB ABO Rh O POS 03/16/2025 6:34 PM CDT [facility] Blood Bank BLOOD SPECIMEN / Unknown Venipuncture / Unknown 03/16/2025 5:39 PM CDT 03/16/2025 5:51 PM CDT Rahul Hernandez MD LAB - BLOOD BANK OR DERABLES Final Result Performing Organization Address City/[facility]/ZIP Co de Phone Number [facility] [address] [place] [address], [facility] [phone] * TRANSFUSE RED BLOOD CELL LEUKOREDUCED UNIT(S) (03/16/2025 11:36 AM CDT) Nayanbita Hernandez MANAGER PRODUCE-ORDER PROCESSING SPECIALIST NURSING - BLOOD PRO D TRANSFUSION Final Result * (ABNORMAL) SVO2 FOR RECALIBRATION (03/16/2025 3:11 AM CDT) Only the most recent of4 resultswithin the time period is included. SVO2 for Recalibration 48.1(L) 66.0 - 77.0 % 03/16/2025 3:20 AM CDT [facility] Blood BLOOD SPECIMEN / Unknown Venipuncture / Unknown 03/16/2025 3:11 AM CDT 03/16/2025 3:16 AM CDT Mariya Botello PA-C LAB - CHEMISTRY ORDERABLES F inal Result Performing Organization Address City/[facility]/ZIP Co de Phone Number [facility] [address] [place] [address], [facility] [phone] * HEMOGLOBIN A1C (03/16/2025 3:11 AM CDT) Hemoglobin A1c 5.3 <=5.6 % 03/16/2025 10:31 AM CDT [facility] Estimated Average Glucose 105 mg/dL 03/16/2025 10:31 AM CDT [facility] Comment: HbA1c Interpretation: Normal : < 5.7% Pre-diabetes: 5.7-6.4% Diabetes: Equal to or greater than 6.5% Test results diagnostic of diabetes should be repeated for confirmation. Treatment target values recommended by ADA and other clinical organizations should be used to evaluate metabolic control in patients. Reference: [place] Diabetes Association, Standards of Care in Diabetes -2020 In patients 70 years and older consider HbA1c target range of 7.0-7.5% (Reference: Igor Porter, et al. JAMDA. 2012) The Sebia assay for the measurement of HbA1c is a National Glycohemoglobin Standardization Program (NGSP) certified method. Blood BLOOD SPECIMEN / Unknown Venipuncture / Unknown 03/16/2025 3:11 AM CDT 03/16/2025 4:45 AM CDT us Mariya Botello PA-C LAB - CHEMISTRY ORDERABLES F inal Result Performing Organization Address City/[facility]/ZIP Co de Phone Number [address] [address], [place] [phone] * (ABNORMAL) LACTIC ACID BLOOD (03/16/2025 3:11 AM CDT) Only the most recent of3 resultswithin the time period is included. Lactic Acid-Stat 3.7(HH) <=2.0 mmol/L 03/16/2025 4:02 AM CDT [facility] Blood BLOOD SPECIMEN / Unknown Venipuncture / Unknown 03/16/2025 3:11 AM CDT 03/16/2025 3:21 AM CDT us Nayan Hernandez MANAGER PRODUCE-ORDER PROCESSING SPECIALIST LAB - CHEMISTRY ORD ERABLES Final Result Performing Organization Address City/[facility]/ZIP Co de Phone Number [address] [address], [place] [phone] * (ABNORMAL) BLOOD GASES ART + COOX PANEL (03/16/2025 3:11 AM CDT) Only the most recent of4 resultswithin the time period is included. pH Arterial 7.38 7.35 - 7.45 pH 03/16/2025 3:21 AM CDT [facility] pO2 Arterial 104(H) 80 - 100 mmHg 03/16/2025 3:21 AM [facility] pCO2 Arterial 31(L) 35 - 45 mmHg 3:21 AM [facility] HCO3 Arterial 18.3(L) 20.0 - 30.0 mmol/L 03/16/2025 3:21 AM [facility] BE Arterial -6.1(L) -2.0 - 2.0 mmol/L 03/16/2025 3:21 AM [facility] Oxyhemoglobin Arterial 96.3 % 03/16/2025 3:21 AM [facility] Dexoyhemoglobin (HHB) % <1.0 % 03/16/2025 3:21 AM [facility] Methemoglobin 1.3 0.0 - 2.0 % 03/16/2025 3:21 AM [facility] Carboxyhemoglobin 1.8 0.0 - 2.0 % 2024 3:21 AM [facility] O2 Content Arterial 10.6 Interpret within clinical context ml/dL 03/16/2025 3:21 AM [facility] Hemoglobin by COOX 7.7(L) 12.0 - 17.6 g/dL 03/16/2025 3:21 AM [facility] O2 Saturation Arterial 99 90 - 100 % 03/16/2025 3:21 AM [facility] FI O2 Arterial 28.0 % 03/16/2025 3:21 AM [facility] Blood, arterial ARTERIAL BLOOD SPECIMEN / Unknown Arterial Puncture / Unknown 03/16/2025 3:11 AM [facility] 03/16/2025 3:16 AM [facility] - 03/16/2025 3:21 AM [facility] Carboxyhemoglobin Normal Concentration: Non-smokers: 0-2%; Smokers: 0-9%; Toxic: >20% us Nayanbita Hernandez MANAGER PRODUCE-ORDER PROCESSING SPECIALIST LAB - BLOOD GASES O RDERABLES Final Result [facility] [address] [place] [address], [facility] [phone] * TRANSFUSE RED BLOOD CELL LEUKOREDUCED UNIT(S) (03/15/2025 8:08 PM CDT) Rahul Hernandez MD NURSING - BLOOD PRO D TRANSFUSION Final Result * XR Abdomen Kub (03/15/2025 [...] Jamie Barriga MD on 03/16/2025 2:31 AM Mariya Botello PA-C DIAGNOSTIC IMAGING ORDERABLE S Final Result * SINTIA FOR ANESTHESIA (03/15/2025 5:40 PM CDT) Narrative Alexa Page MD - 03/15/2025 5:40 PM CDT Alexa Page MD 03/15/2025 5:41 PM Transesophageal Echocardiogram Procedure Note: Procedure: Transesophageal Echocardiogram Patient Location: [place] Pre-Procedure Section: Indications: confirmation of pre-procedure diagnosis, valvular assessment, hemodynamic monitoring, volume assessment and ventricular function Intubated? Yes Heart Visualized? Yes Probe Insertion: easy Probe Type: 3D Modalities: 3D, color flow mapping, continuous wave Doppler and pulse wave Doppler Procedure Start Time: 03/15/2025 11:40 AM. Staff Section Anesthesia Provider: Alexa Page MD, Performed the procedure Other Findings/Summary: Summary * The left ventricle is normal [...] LV and RV Function back to baseline. Alexa Page MD GENERAL ANESTHESIA ORDERA BLES Final Result * FIBRINOGEN ACTIVITY (03/15/2025 5:32 PM CDT) Only the most recent of2 resultswithin the time period is included. Fibrinogen Clauss 280 200 - 400 mg/dL 03/15/2025 6:03 PM CDT [facility] Blood BLOOD SPECIMEN / Unknown Venipuncture / Unknown 03/15/2025 5:32 PM CDT 03/15/2025 5:35 PM CDT Mariya Botello PA-C LAB - COAGULATION ORDERABLES Final Result [facility] [address] [place] [address], [facility] [phone] * PTT (03/15/2025 5:32 PM CDT) Only the most recent of2 resultswithin the time period is included. APTT 29.8 23.0 - 38.4 Seconds 03/15/2025 6:05 PM CDT [facility] Comment:Suggested therapeuti c range for full dose I.V. unfractionated heparin therapy for venous thromboembolism is 71 to 109 seconds. Blood BLOOD SPECIMEN / Unknown Venipuncture / Unknown 03/15/2025 5:32 PM CDT 03/15/2025 5:35 PM CDT Mariya Botello PA-C LAB - COAGULATION ORDERABLES Final Result Performing Organization Address [facility]/ZIP Co de Phone Number [address] [address], [facility] [phone] * (ABNORMAL) DIFFERENTIAL MANUAL (03/15/2025 5:32 PM CDT) Neutrophil % 90(H) 41 - 74 % 03/15/2025 6:09 PM [facility] Lymphocyte % 6(L) 17 - 47 % 03/15/2025 6:09 PM [facility] Monocyte % 4 3 - 11 % 03/15/2025 6:09 PM [facility] Neutrophil Absolute 19.53(H) 1.60 - 7.50 x10E9/L 03/15/2025 6:09 PM [facility] Lymphocyte Absolute 1.30 1.00 - 4.40 x10E9/L 03/15/2025 6:09 PM [facility] Monocyte Absolute 0.87 0.15 - 1.00 x10E9/L 03/15/2025 6:09 PM [facility] RBC Morphology REVIEWED 03/15/2025 6:09 PM [facility] Large Platelets PRESENT(A) (none) 03/15/2025 6:09 PM [facility] Blood BLOOD SPECIMEN / Unknown Venipuncture / Unknown 03/15/2025 5:32 PM CDT 03/15/2025 5:38 PM CDT Mariya Botello PA-C LAB - HEMATOLOGY ORDERABLES Final Result Performing Organization Address City/[facility]/ZIP Co de Phone Number [address] [address], [place] [phone] * (ABNORMAL) CBC W AUTO DIFFERENTIAL (03/15/2025 5:32 PM CDT) Only the most recent of14 resultswithin the time period is included. WBC 21.7(H) 4.0 - 10.7 x10E9/L 03/15/2025 6:09 PM [facility] RBC Count 2.71(L) 4.30 - 5.80 x10E12/L 03/15/2025 6:09 PM [facility] Hemoglobin 7.9(L) 13.3 - 17.5 g/dL 03/15/2025 6:09 PM [facility] Hematocrit 24.0(L) 38.7 - 51.1 % 03/15/2025 6:09 PM [facility] MCV 88.6 80.0 - 98.0 fL 03/15/2025 6:09 PM [facility] MCH 29.2 26.7 - 33.6 pg 03/15/2025 6:09 PM [facility] MCHC 32.9 31.7 - 36.3 g/dL 03/15/2025 6:09 PM [facility] RDW-CV 15.9(H) 11.3 - 14.8 % 03/15/2025 6:09 PM [facility] Platelet Count 251 150 - 420 x10E9/L 03/15/2025 6:09 PM [facility] MPV 9.5 7.8 - 11.4 fL 03/15/2025 6:09 PM [facility] Blood BLOOD SPECIMEN / Unknown Venipuncture / Unknown 03/15/2025 5:32 PM CDT 03/15/2025 5:38 PM CDT us Mariya Botello PA-C LAB - HEMATOLOGY ORDERABLES Final Result [facility] [address] [place] [address], [facility] [phone] * CULTURE WOUND+GRAM STAIN (03/15/2025 5:06 PM CDT) Culture No growth LAVELLE 03/19/2025 1:10 PM CDT [facility] MICROBIOLOGY Gram Stain Light Polymorphonuclear cells 03/19/2025 1:10 PM CDT [facility] MICROBIOLOGY Gram Stain No organisms seen 025 1:10 PM CDT [facility] MICROBIOLOGY Microbiology TISSUE SPECIMEN / Unknown Collection / Unknown 03/15/2025 5:06 PM CDT 03/15/2025 5:06 PM CDT Rahul Hernandez MD LAB - MICROBIOLOGY ORDERABLES Final Result Performing Organization Address City/[facility] Co de Phone Number [facility] MICROBIOLOGY [address] [place] [address], [facility] [phone] * CULTURE ANAEROBE (03/15/2025 5:06 PM CDT) Culture No anaerobic organisms isolated [place]AVELLE 03/20/2025 12:08 PM CDT [facility] MICROBIOLOGY Microbiology TISSUE SPECIMEN / Unknown Collection / Unknown 03/15/2025 5:06 PM CDT 03/15/2025 5:06 PM CDT Rahul Hernandez MD LAB - MICROBIOLOGY ORDERABLES Final Result Performing Organization Address [facility] Co de Phone Number [facility] MICROBIOLOGY [address] [place] [address], [facility] [phone] * TRANSFUSE FRESH FROZEN PLASMA UNIT(S) (03/15/2025 4:28 PM CDT) Rahul Hernandez MD NURSING - BLOOD PRO D TRANSFUSION Final Result * Peripheral Nerve Block (03/15/2025 4:24 PM CDT) Narrative Alexa Page MD - 03/15/2025 4:24 PM CDT Alexa Page MD 03/15/2025 4:26 PM Peripheral Nerve Block Procedure: Peripheral Nerve Block Patient Location: OR Preprocedure Section: Indications: at surgeon's request and postop pain management. Pre-anesthetic Checklist: Patient identified, IV Checked, Site examined and clear, Risks and benefits discussed, Surgical consent verified, Monitors and equipment, Time-out performed, Informed consent obtained, Pre-op evaluation done, Questions answered/anesthesia questions answered, Allergies reviewed and Removal hand/wrist jewelry Monitors: BP, EKG, ETCO2 and Pulse Ox. Patient Condition: general anesthetic Patient Position: supine Patient Sedated? Yes Sedation Type: general anesthesia Procedure Section Laterality: bilateral Block Performed: Other- please comment Prep: Chloraprep Strerile Field: gloves, mask, hat/cap, patient draped and sterile ultrasound sleeve Needle Type: Echogenic insulated Needle Gauge: 22 Needle Length: 90 mm Catheter? No Ultrasound Guided? Yes Technique: in plane Visualization: Preliminary scan performed, Important anatomical structures identified, Needle tip visualized throughout the procedure, Target identified, No intraneural or intravascular puncture occurred, Local visualized surrounding nerve on ultrasound and Hydrodissection utilized Injection was made incrementally with constant monitoring and aspirations every 5 mL's Injection Assessment: Slow fractionated injection Block Agents or Additives used? Yes Procedure Tolerance: tolerated well Procedure Start Time: 03/15/2025 3:35 PM. Procedure End Time: 03/15/2025 3:45 PM. Procedure Total Time: 10 minutes. Staff Section Anesthesia Provider: Alexa Page MD, Performed the procedure Additional Comments: Bilateral transversus thoracic plane block between ribs 4 and 5. Each side injected between intercostal muscles and transverse thoracis muscle, negative asiration every 5ml. NO complications. Each side injected with 10ml of 1.3% exparel (bracelet applied) Ultrasound images were not saved. I personally performed. CPT 63067 with bilateral modifier. Alexa Page MD GENERAL ANESTHESIA ORDERA BLES Final Result * TRANSFUSE RED BLOOD CELL LEUKOREDUCED UNIT(S) (03/15/2025 4:15 PM CDT) Rahul Hernandez MD NURSING - BLOOD PRO D TRANSFUSION Final Result * TRANSFUSE PLATELET PHERESIS UNIT(S) (03/15/2025 4:14 PM CDT) Rahul Hernandez MD NURSING - BLOOD PRO D TRANSFUSION Final Result * (ABNORMAL) BLOOD GAS+COOX+LYTES+METAB ARTERIAL POCT (03/15/2025 4:00 PM CDT) Only the most recent of9 resultswithin the time period is included. pH Arterial 7.34(L) 7.35 - 7.45 pH 03/15/2025 4:00 PM [facility] pO2 Arterial 384(H) 80 - 100 mmHg 03/15/2025 4:00 PM [facility] pCO2 Arterial 41 35 - 45 mmHg 4:00 PM [facility] HCO3 Arterial 22.1 20.0 - 30.0 mmol/L 03/15/2025 4:00 PM [facility] BE Arterial -3.4(L) -2.0 - 2.0 mmol/L 03/15/2025 4:00 PM [facility] Oxyhemoglobin Arterial 97.9 % 03/15/2025 4:00 PM [facility] Dexoyhemoglobin (HHB) % <1.0 % 03/15/2025 4:00 PM [facility] Methemoglobin 1.1 0.0 - 2.0 % 03/15/2025 4:00 PM [facility] Carboxyhemoglobin 1.0 0.0 - 2.0 % 2024 4:00 PM [facility] Comment:Carboxyhemoglobin No rmal Concentration: Non-smokers: 0-2%; Smokers: 0- 9%; Toxic: >20% O2 Content Arterial 13.2 Interpret within clinical context ml/dL 03/15/2025 4:00 PM [facility] Hemoglobin by COOX 8.8(L) 12.0 - 17.6 g/dL 03/15/2025 4:00 PM [facility] O2 Saturation Arterial 100 90 - 100 % 03/15/2025 4:00 PM [facility] Sodium Whole Blood 138 135 - 145 mmol/L 03/15/2025 4:00 PM [facility] Potassium Whole Blood 4.1 3.5 - 5.5 mmol/L 03/15/2025 4:00 PM [facility] Chloride WB 107 78 - 107 mmol/L 03/15/2025 4:00 PM [facility] Calcium Ionized 1.36 mmol/L 4:00 PM [facility] Ionized Calcium pH Adjusted 1.33 1.19 - 1.34 mmol/L 03/15/2025 4:00 PM CDT [facility] Anion Gap (AG) Arterial 9 6 - 16 mmol/L 03/15/2025 4:00 PM CDT [facility] Glucose WB 193(H) 70 - 99 mg/dL 03/15/2025 4:00 PM CDT [facility] Lactic Acid Whole Blood 1.8 <=2.0 mmol/L 03/15/2025 4:00 PM CDT [facility] Blood, arterial ARTERIAL BLOOD SPECIMEN / Unknown 03/15/2025 4:00 PM CDT 03/15/2025 4:00 PM CDT us Cornelia Serra MD LAB - POINT OF CARE ORDERABLE S Final Result Performing Organization Address [facility]/ZIP Co de Phone Number [address] [address], [facility] [phone] * TRANSFUSE RED BLOOD CELL LEUKOREDUCED UNIT(S) (03/15/2025 3:30 PM CDT) us Rahul Hernandez MD NURSING - BLOOD PRO D TRANSFUSION Final Result * ACT PLUS - POCT ([facility]) (03/15/2025 3:17 PM CDT) Only the most recent of8 resultswithin the time period is included. [facility] ACT PLUS 112 See result comments sec 03/15/2025 3:21 PM CDT [facility] Blood BLOOD SPECIMEN / Unknown 03/15/2025 3:17 PM CDT 03/15/2025 3:21 PM CDT Narrative [facility] - 03/15/2025 3:21 PM CDT ACT+ Therapeutic ranges for the ACT+ test in surgery areas are: Greater than (>) 360 seconds for surgical patients Greater than (>) 450 seconds for surgical bypass patients us Cornelia Serra MD LAB - COAGULATION ORDERABLES Final Result [address] [address] [place] [address], [facility] [phone] * (ABNORMAL) TEG 6 GLOBAL HEMOSTASIS WITH HEPARIN NEUTRALIZATION (03/15/2025 3:10 PM CDT) Pathologist [facility] CITRATED KAOLIN R (CK-R REACTION TIME) 5.4 4.6 - 9.1 min 03/15/2025 4:11 PM CDT [facility] CITRATED KAOLIN MA (-MA MAX AMPLITUDE) 70.3(H) 52.0 - 69.0 mm 03/15/2025 4:11 PM CDT [facility] CITRATED KAOLIN HEPARINASE R ( [facility] R REACTION TIME) 4.7 4.3 - 8.3 min 03/15/2025 4:11 PM CDT [facility] CITRATED KAOLIN HEPARINASE LY30 ([facility] LY30 LYSIS) 0.0 0.0 - 3.2 % 03/15/2025 4:11 PM CDT [facility] CITRATED RAPIDTEG HEPARINASE MA ( CRTH MA MAX AMPLITUDE) 69.5(H) 53.0 - 69.0 mm 03/15/2025 4:11 PM CDT [facility] CITRATED FUCTIONAL FIBRINOGEN HEPARINASE ( [facility] MAX AMPLITUDE) 39.1(H) 15.0 - 34.0 mm 03/15/2025 4:11 PM CDT [facility] Blood BLOOD SPECIMEN / Unknown 03/15/2025 3:10 PM CDT 03/15/2025 3:18 PM CDT us Alexa Page MD LAB - HEMATOLOGY ORDERABL ES Final Result [id number] [place] [address], [facility] [phone] * PLATELET COUNT AUTO CITRATED BLOOD (03/15/2025 2:33 PM CDT) [facility] Platelet Count Citrated 215 150 - 420 x10E9/L 03/15/2025 3:49 PM CDT [facility] Blood BLOOD SPECIMEN / Unknown Venipuncture / Unknown 03/15/2025 2:33 PM CDT 03/15/2025 2:33 PM CDT Narrative [facility] - 03/15/2025 3:49 PM CDT This test was developed and its performance characteristics determined by the clinical laboratories of [facility]. It has not been cleared and approved by the [place] Food and Drug Administration. Alexa Page MD LAB - HEMATOLOGY ORDERABL ES Final Result [facility] [address] [place] [address], [facility] [phone] * PATHOLOGY TISSUE (03/15/2025 1:53 PM CDT) Case Report Surgical Pathology Report Case: [id number] Authorizing Provider: Rahul Hernandez Collected: 03/15/2025 01:53 PM MD Tyrell Ordering Location: [facility] OP Received: 03/16/2025 05:08 AM Pathologist: Ericka Robert MD Specimen: Mitral Valve, Anterior leaflet of mitral valve 03/17/2025 3:58 PM CDT [facility] Final Diagnosis Heart, mitral valve, replacement (A): - Endocarditis 03/17/2025 3:58 PM CDT [facility] PATHOLOGY LAB at 1558 CDT Microscopic Description [...] formalin, labeled with the patient's name Marshall Mercer Jr., specimen A, consists of a 3.2 x 1.8 x 0.1 cm portion of henry-white to henry-yellow heterogeneous rubbery tissue, consistent with mitral valve leaflet, which has multiple portions of attached henry-white thin delicate chordae tendinea. There are no vegetations or calcific nodules present. Cleaning Maid sections are submitted in a single cassette labeled A1. RB 03/17/2025 3:58 PM CDT [facility] Pathologist Location at [facility] 03/17/2025 3:58 PM CDT [facility] Disclaimer The performance characteristics of all immunohistochemical and indirect immunofluorescence stains (if any) cited in this report were determined by the Histopathology Laboratory of [facility]. Some of these tests were developed by [...] attending (teaching) pathologist. 03/17/2025 3:58 PM CDT [facility] Embedded Images 03/17/2025 3:58 PM CDT [facility] PATHOLOGY LAB Resection without Tumor ENTIRE MITRAL VALVE / Unknown 03/15/2025 1:53 PM CDT 03/16/2025 5:08 AM CDT Comment:Pre-op diagnosis: mitral valve regurgitation Rahul Hernandez MD LAB - PATHOLOGY/CYT OLOGY ORDERABLES Final Result Performing Organization Address [facility]/State/[facility] de Phone Number [facility] PATHOLOGY LAB [address] [phone] * PA CATH PERFORMABLE, INTRODUCER (03/15/2025 12:19 PM CDT) Narrative Ricki Shields DO - 03/15/2025 12:19 PM CDT Ricki Shields DO 03/15/2025 12:21 PM PROCEDURE: Pulmonary Artery Catheter and Introducer Patient Location: OR. Insertion Time: 03/15/2025 12:04 PM Procedure Section: Indications: IV access and SVO2 monitoring Consent: informed consent was obtained for the procedure. Orientation: right Patient Sedated? No Patient Position: Trendelenburg Site: internal jugular Skin Prep: Chloraprep. Local Anesthetic Used? No Site Identification: ultrasound guided with sterile sleeve and gel. Seldinger Technique Used? Yes Intravenous Verification: verified by ultrasound. Introducer Lumens: double lumen. Introducer Size (FR): 9. Introducer length (cm): 12 with .5 lengths. Introducer secured at (cm): 12. Port Insertion: guidewire removed intact, all ports aspirated/flushed and sutured in place. PA Catheter Size (FR): 9. PA Catheter Length (cm): 70. PA Catheter secured at (cm): other - please comment (45). Removing PA Cath? No. Number of Attempts: 1. Procedure Tolerance: performed while patient under general anesthesia. Staff Section Anesthesia Provider: Ricki Shields DO, Performed the procedure Alexa Page MD GENERAL ANESTHESIA ORDERA BLES Final Result * CENTRAL LINE PERFORMABLE (03/15/2025 12:19 PM CDT) Narrative Ricki Shields DO - 03/15/2025 12:19 PM CDT Ricki Shields DO 03/15/2025 12:19 PM Central Line Placement Procedure Note/LDA Patient Location: OR. Insertion Time: 03/15/2025 11:48 AM Procedure Section: Consent: informed consent was obtained for the procedure. Patient Sedated? No Patient Position: trendelenburg Orientation: right. Site: internal jugular Skin Prep: Chloraprep. Site Identification: ultrasound guided with sterile sleeve and gel. Seldinger Technique Used? Yes Size: 7 Fr. Length (cm): 16 (12). Secured at (cm): 16. Port Insertion: guidewire removed intact, all ports aspirated/flushed, sutured in place and dressing applied. Number of Attempts: 1. Procedure Tolerance: performed while patient under general anesthesia Staff Section Anesthesia Provider: Ricki Shields DO Performed the procedure us Alexa Page MD GENERAL ANESTHESIA ORDERA BLES Final Result * ETT LINE PERFORMABLE (03/15/2025 12:18 PM CDT) Narrative Ricki Shields DO - 03/15/2025 12:18 PM CDT Ricki Shields DO 03/15/2025 12:18 PM Endotracheal Tube Placement: Patient Location: OR. Intubation Event Date/Time: 03/15/2025 11:38 AM Procedure: intubation ([id number]) Procedure Section: Sedation: under general anesthesia. Indications for Airway Management: anesthesia Procedure pretreatments used? No Induction: standard IV Patient Position: sniffing Mask Ventilation: easy with oral airway. Blade Type: Priscilla Laryngoscopy View: grade 2 (partial cords) Intubation Adjuncts: stylet Placement: oral Tube type: cuff - inflated Tube Size (MM): 8 Depth of Insertion (CM): 24 Measured From: lips Cuff volume (mL): 8 Cuff Inflated With: air Number of Attempts: 1. Placement Verified By: direct visualization, bilateral breath sounds, chest auscultation and CO2 monitor Tube secured with: adhesive tape. Dentition unchanged? Yes Difficult Airway? No. Procedure Start Time: 03/15/2025 11:38 AM. Staff Section Anesthesia Provider: Ricki Shields DO, Performed the procedure Alexa Page MD GENERAL ANESTHESIA ORDERA BLES Final Result * ARTERIAL LINE PERFORMABLE (03/15/2025 12:18 PM CDT) Narrative Ricki Shields DO - 03/15/2025 12:18 PM CDT Ricki Shields DO 03/15/2025 12:18 PM Arterial Line Placement Procedure Note Patient Location: OR. Insertion Time: 03/15/2025 11:32 AM Procedure: Arterial Line (52275) Procedure Section Indications: continuous blood pressure monitoring. Consent: informed consent was obtained for the procedure, including sedation. Skin Prep: Chloraprep. Orientation: Left. Site: radial. Site Identification: ultrasound guided with sterile sleeve and gel. Gauge: 20. Seldinger Technique Used? Yes Number of Attempts: 1. Line Secured with: suture. Procedure Tolerance: performed while patient under general anesthesia. Events: none. Staff Section Anesthesia Provider: Ricki Shields DO Performed the procedure us Alexa Page MD GENERAL ANESTHESIA ORDERA BLES Final Result * BLOOD GAS KATHY+LYTES+METAB+COOX POC NOTIF (03/15/2025 8:06 AM CDT) Comment Notification Label Only - See Separate Report 03/15/2025 9:31 AM CDT [facility] Other MISCELLANEOUS SAMPLES / Unknown 03/15/2025 8:06 AM CDT 03/15/2025 8:07 AM CDT us Rahul Hernandez MD LAB - BLOOD GASES O RDERABLES Final Result [address] [address], [facility] [phone] * BLOOD GAS ART+LYTES+METAB+COOX POC NOTIF (03/15/2025 8:06 AM CDT) Comment Notification Label Only - See Separate Report 03/15/2025 9:31 AM CDT [facility] Other MISCELLANEOUS SAMPLES / Unknown 03/15/2025 8:06 AM CDT 03/15/2025 8:07 AM CDT us Rahul Hernandez MD LAB - BLOOD GASES O RDERABLES Final Result [address] [address], [place] [phone] * ECHO ANES SINTIA INTRAOP (03/15/2025 6:23 AM CDT) AV mn grad 4 mmHg SSM CV FU JI PACS AV VTI 24 cm SSM CV FUJ I PACS AV pk trace 125 cm/s SSM CV FUJ I PACS AV pk grad 6 mmHg SSM CV FU JI PACS Aortic annulus 2.7 cm SSM C V FUJI PACS AV area cont VTI 3.437 cm SSM CV FUJI PACS AV area pk trace 3.771 cm SSM CV FUJI PACS Ascending aorta 3.6 cm SSM CV FUJI PACS ST junction 3 cm SSM CV F UJI PACS Sinus of Valsalva 3.7 cm SS M CV FUJI PACS LVOT diam 2.2 cm SSM CV FUJ I PACS LVOT VTI 21.7 cm SSM CV FUJ I PACS LVOT pk trace 124 cm/s SSM CV F UJI PACS LVOT pk grad 4 mmHg SSM CV FUJI PACS MR VTI 144 cm SSM CV FUJ I PACS MV mn grad 1 mmHg SSM CV FU JI PACS MV VTI 16.4 cm SSM CV FUJ I PACS MV pk trace regurg 451 cm/s SSM CV FUJI PACS PV VTI 38.7 cm SSM CV FUJ I PACS PV pk trace 189 cm/s SSM CV FUJ I PACS TAPSE 3.09 cm SSM CV FUJ I PACS TR pk trace 214 cm/s SSM CV FUJ I PACS [...] back to baseline. Patient Info Name: Marshall Mercer Age: 65 years : 1960 Gender: Male Exam Date: 03/15/2025 10:01 AM Patient Status: I/P Study Site: [facility] Primary Location: [facility] EStudy Info Exam Type: ECHO ANES SINTIA [...] 3.44 cm2 >=2.00 AV Area (Cont Eq Trace) 3.77 cm2 AV DI (VTI) 0.90 AV DI (Trace) 0.99 AV Regurgitation 2D LVOT Area 3.80 [...] back to baseline. Patient Info Name: Marshall Mercer Age: 65 years : 1960 Gender: Male Exam Date: 03/15/2025 10:01 AM Patient Status: I/P Study Site: [facility] Primary Location: [facility] Info Exam Type: ECHO ANES SINTIA INTRAOP [...] 3.44 cm2 >=2.00 AV Area (Cont Eq Trace) 3.77 cm2 AV DI (VTI) 0.90 AV DI (Trace) 0.99 AV Regurgitation 2D LVOT Area 3.80 cm2 Ventricles Name Value Normal RV Dimensions 2D/MM TAPSE 3.1 cm >=1.7 Report Signatures Finalized by Alexa Page on 03/15/2025 05:38 PM Cornelia Serra MD ECHO CUPID Final Result * TRANSFUSE RED BLOOD CELL LEUKOREDUCED UNIT(S) (03/14/2025 5:37 PM CDT) Ofelia Mckee APRN-[facility] NURSING - BLOOD PROD TRANSFUSION Final Result * PREPARE (CROSSMATCH) RBC UNIT(S), 1 Units (03/14/2025 5:21 AM CDT) Only the most recent of6 resultswithin the time period is included. Unit Description N/A [facility] BLOOD BANK LAB Blood Bank BLOOD SPECIMEN / Unknown 03/14/2025 5:21 AM CDT 03/14/2025 5:53 AM CDT Rahul Hernandez MD LAB - BLOOD BANK OR DERABLES Final Result [facility] BLOOD BANK LAB [address] [place] [address], [place] [phone] * PREPARE PLATELET PHERESIS UNIT(S), 2 Units (03/14/2025 5:21 AM CDT) Only the most recent of2 resultswithin the time period is included. Unit Description LR PLT Phere B7 [facility] BLOOD BANK LAB Unit ABO O [facility] BLOOD [facility] LAB Unit Rh POS [facility] BLOOD [facility] LAB Product Number P27 [facility] B LOOD BANK LAB Unit Donor # [id number] [facility] BLOOD BANK LAB Unit Status transfused [facility] BLO OD BANK LAB Product Code [id number] [facility] BLO OD BANK LAB Blood Type Barcode 5100 [facility] BLOOD [facility]ANK LAB Expiration Date [facility] BLOOD BANK LAB Unit Description LR PLT Phere B7 [facility] BLOOD [facility]ANK LAB Unit ABO O [facility] BLOOD [facility] Unit Rh POS [facility] BLOOD [facility] Product Number P27 [facility] B LOOD BANK LAB Unit Donor # [id number] [facility] BLOOD BANK LAB Unit Status released [facility] BLOO D BANK LAB Product Code [id number] [facility] BLO OD BANK LAB Blood Type Barcode 5100 [facility] BLOOD [facility]ANK LAB Expiration Date [facility] BLOOD BANK LAB Blood Bank BLOOD SPECIMEN / Unknown 03/14/2025 5:21 AM CDT 03/14/2025 5:53 AM CDT Rahul Hernandez MD LAB - BLOOD BANK OR DERABLES Final Result [facility] BLOOD BANK LAB [address] [place] [address], [facility] [phone] * PREPARE FFP UNIT(S), 4 Units (03/14/2025 5:21 AM CDT) Only the most recent of2 resultswithin the time period is included. Unit Description Liquid Plasma [facility] BLOOD BANK LAB Unit ABO A [facility] BLOOD [facility]ANK LAB Unit Rh POS [facility] BLOOD [facility] Product Number E2457 [facility] B LOOD BANK LAB Unit Donor # [id number] [facility] BLOOD B[facility] Unit Status released [facility] BLOO D BANK LAB Product Code [id number] [facility] BLO OD BANK LAB Blood Type Barcode 6200 [facility] BLOOD [facility] Expiration Date [facility] BLOOD BANK LAB Unit Description Liquid Plasma [facility] BLOOD [facility] Unit ABO A [facility] BLOOD [facility] LAB Unit Rh POS [facility] BLOOD [facility] Product Number E2457 [facility] B LOOD BANK LAB Unit Donor # [id number] [facility] BLOOD B[facility] Unit Status transfused [facility] BLO OD BANK LAB Product Code [id number] [facility] BLO OD BANK LAB Blood Type Barcode 6200 [facility] BLOOD BANK LAB Expiration Date [id number] S BLOOD BANK LAB Blood Bank BLOOD SPECIMEN / Unknown 03/14/2025 5:21 AM CDT 03/14/2025 5:53 AM CDT us Rahul Hernandez MD LAB - BLOOD BANK OR DERABLES Final Result [facility] BLOOD [facility]ANK LAB [address] [place] [address], [facility] [phone] * (ABNORMAL) URINALYSIS REFLEX MICROSCOPIC REFLEX CULTURE (03/13/2025 9:10 AM CDT) Only the most recent of2 resultswithin the time period is included. Color UA Colorless(A) Yellow, Straw 03/13/2025 9:50 AM T [facility] Clarity UA Clear Clear 03/13/2025 9:50 AM T [facility] Glucose UA 1+(A) Normal 03/13/2025 9:50 AM T [facility] Bilirubin UA Negative Negative 03/13/2025 9:50 AM T [facility] Ketone UA Negative Negative 03/13/2025 9:50 AM T [facility] Specific [place] UA 1.012 1.005 - 1.030 03/13/2025 9:50 AM [facility] Blood UA Negative Negative 03/13/2025 9:50 AM T [facility] pH UA 6.5 5.0 - 8.0 03/13/2025 9:50 AM [facility] Protein UA 1+(A) Negative 03/13/2025 9:50 AM T [facility] Urobilinogen UA Normal Normal mg/dL 03/13/2025 9:50 AM T [facility] Nitrite UA Negative Negative 03/13/2025 9:50 AM CDT [facility] Leukocyte Esterase UA Negative Negative 03/13/2025 9:50 AM CDT [facility] RBC UA 0-2 0 - 5 # /hpf 03/13/2025 9:50 AM CDT [facility] WBC UA 0-5 0 - 5 # /hpf 03/13/2025 9:50 AM CDT [facility] Bacteria UA None Seen None Seen 03/13/2025 9:50 AM CDT [facility] Squamous Epithelial Cells None Seen 0 - 5 /hpf 03/13/2025 9:50 AM T [facility] Mucus UA 1+ /LPF 03/13/2025 9:50 AM CDT [facility] Reflex Status Culture not indicated 03/13/2025 9:50 AM CDT [facility] Urine URINE SPECIMEN OBTAINED BY CLEAN CATCH PROCEDURE / Unknown Collection / Unknown 03/13/2025 9:10 AM CDT 03/13/2025 9:19 AM CDT Narrative [facility] - 03/13/2025 9:50 AM CDT Ofelia Mckee MANAGER PRODUCE-ORDER PROCESSING SPECIALIST LAB - URINALYSIS ORDE RABALVIN Final Result [facility] [address] [place] [address], [place] [phone] * BLOOD TYPE VERIFICATION (03/10/2025 10:02 PM CDT) ABO Rh O POS 03/10/2025 10:56 PM CDT [facility] BLOOD BANK LAB Blood Bank BLOOD SPECIMEN / Unknown Lab Venipuncture / Unknown 03/10/2025 10:02 PM CDT 03/10/2025 10:11 PM CDT Yousuf Chaudhari PA-C LAB - BLOOD BANK ORDERABLES Final Result [facility] B[facility]OD [facility]ANK LAB [address] [place] [address], [place] [phone] * [place] Chest Wo Contrast (03/10/2025 2:43 [...] indicated. > Dictated by Nick Jay MD, (residential sales consultant). > Dictated by Hydrographic Engineer IJen MD have personally reviewed and interpreted this examination/study. > Interpreting Provider: Jen Thomson MD on 03/10/2025 5:00 PM Narrative 03/10/2025 5:00 PM CDT PROCEDURE: CT CHEST WO CONTRAST, DATE/TIME OF EXAM: 03/10/2025 2:44 PM, LOCATION [facility] INDICATION: I33.0: Mitral valve vegetation (HCC) ADDITIONAL [...] DATE/TIME OF EXAM: 03/10/2025 2:44 PM, LOCATION [facility] INDICATION: I33.0: Mitral valve vegetation (HCC) ADDITIONAL [...] indicated. > Dictated by Nick Jay MD, (residential sales consultant). > Dictated by Hydrographic Engineer IAd. Stephany Thomson MD have personally reviewed and [...] PMHx HTN, COPD, CKD, GERD presented to [facility] as OSH transfer for CTS evaluation for [...] CARDIAC CATH CUPID PROCS Final Result * ETT LINE PERFORMABLE (03/09/2025 6:28 PM CDT) Narrative Adalberto Farmer MD - 03/09/2025 6:28 PM CDT Adalberto Farmer MD 03/09/2025 6:28 PM Endotracheal Tube Placement: Patient Location: OR. Intubation Event Date/Time: 03/09/2025 6:17 PM Procedure: intubation ([id number]) Procedure Section: Sedation: under general anesthesia. Indications for Airway Management: anesthesia Induction: standard IV Patient Position: sniffing Mask Ventilation: easy. Blade Type: Priscilla Blade Size: 3 Laryngoscopy View: grade 1 (full cords) Intubation Adjuncts: cricoid pressure and stylet Tube: endotracheal tube Placement: oral Tube type: cuff - inflated Tube Size (MM): 7.5 Depth of Insertion (CM): 24 Measured From: lips Cuff Inflated With: air Number of Attempts: 1. Placement Verified By: direct visualization, bilateral breath sounds, chest auscultation and CO2 monitor Tube secured with: adhesive tape. Dentition unchanged? Yes Difficult Airway? No. Procedure Start Time: 03/09/2025 6:17 PM. Staff Section Anesthesia Provider: Adalberto Farmer MD, Performed the procedure Provider #1: Prakash De La Torre DO. us Prakash De La Torre DO GENERAL ANESTHESIA ORDERAB LES Final Result * US Retroperitoneal Complete (03/09/2025 10:35 AM [...] clinically indicated. > Dictated by Eunice Ramirez (residential sales consultant). > Dictated by Eunice Ramirez 03/09/2025 11:07 AM > Dictated by Hydrographic Engineer Ad Cason. Stephany Thomson MD have personally reviewed and [...] with DICOM image capture performed by medical imaging technologist. FINDINGS: Right kidney: 10.9 x 5.6 x [...] bladder with DICOMimage capture performed by medical imaging technologist. FINDINGS: Right kidney: 10.9 x 5.6 x [...] clinically indicated. > Dictated by Eunice Ramirez (residential sales consultant). > Dictated by Eunice Ramirez 03/09/2025 11:07 AM > Dictated by Hydrographic Engineer Jen Cason MD have personally reviewed and interpreted this examination/study. > Interpreting Provider: Jen Thomson MD on 03/09/2025 1:40 PM us Adalberto Arroyo MD US ORDERABLES Final Result * VITAMIN D 25-HYDROXY (03/08/2025 5:06 AM CDT) Vitamin D, 25 Hydroxy 39.0 30.0 - 80.0 ng/mL 03/08/2025 6:22 AM CDT [facility] Comment: The recommendations for 25-Hydroxy Vitamin [...] 5:06 AM CDT 03/08/2025 5:34 AM CDT Adalberto Arroyo MD LAB - CHEMISTRY ORDERABLES F inal Result Performing Organization Address City/[facility]/ZIP Co de Phone Number [address] [address], [facility] [phone] * (ABNORMAL) PTH INTACT W/O CALCIUM (03/08/2025 5:05 AM CDT) PTH Intact 80.3(H) 8.0 - 77.0 pg/mL 03/08/2025 6:10 AM CDT [facility] Blood BLOOD SPECIMEN / Unknown Lab Venipuncture / Unknown 03/08/2025 5:05 AM CDT 03/08/2025 5:34 AM CDT Adalberto Arroyo MD LAB - CHEMISTRY ORDERABLES F inal Result [address] [address], [facility] [phone] * (ABNORMAL) IRON + TRANSFERRIN PANEL (03/08/2025 5:05 AM CDT) Iron 38(L) 50 - 175 ug/dL 03/08/2025 6:09 AM CDT [facility] Transferrin 201 174 - 382 mg/dL 03/08/2025 6:09 AM CDT [facility] Transferrin Saturation % 15(L) 16 - 50 % 03/08/2025 6:09 AM CDT [facility] TIBC Calculated 251 240 - 450 ug/dL 03/08/2025 6:09 AM CDT [facility] Blood BLOOD SPECIMEN / Unknown Lab Venipuncture / Unknown 03/08/2025 5:05 AM CDT 03/08/2025 5:24 AM CDT Adalberto Arroyo MD LAB - CHEMISTRY ORDERABLES F inal Result Performing Organization Address [facility]/ZIP Co de Phone Number [address] [address], [place] [phone] * (ABNORMAL) FERRITIN (03/08/2025 5:05 AM CDT) Ferritin 447(H) 22 - 275 ng/mL 03/08/2025 6:13 AM CDT [facility] Blood BLOOD SPECIMEN / Unknown Lab Venipuncture / Unknown 03/08/2025 5:05 AM CDT 03/08/2025 5:24 AM CDT Adalberto Arroyo MD LAB - CHEMISTRY ORDERABLES F inal Result Performing Organization Address City/[facility]/ZIP Co de Phone Number [address] [address], [place] [phone] * VAS Carotid Duplex Bilateral (03/07/2025 4:07 PM CDT) Anatomical Region Laterality Modality Neck Intravascular Ul trasound 03/07/2025 2:33 PM CDT Narrative Procedure Note sOvaldo Doyle MD - 03/08/2025 us Kota Estrella MANAGER PRODUCE-ORDER PROCESSING SPECIALIST VASCULAR LAB ORDERABLE S Edited Result - Final * ECHO SINTIA COMPLETE (2025 11:32 AM CDT) Sinus of Valsalva 3.9 cm SS M CV FUJI PACS AV area pk trace 3.027 cm SSM CV FUJI PACS AV area cont VTI 2.489 cm SSM CV FUJI PACS AV area index 1.262 cm /m SSM CV FUJI PACS Dimensionless Index 0.583 unitless SSM CV FUJI PACS LVOT diam 2.332 cm SSM CV FUJ I PACS LVOT VTI 14.815 cm SSM CV FUJ I PACS LVOT pk trace 99.846 cm/s SSM CV F UJI PACS AV pk trace 140.878 cm/s SSM CV FUJ I PACS [...] is grossly normal. Patient Info Name: Marshall Mercer Age: 65 years : 1960 Gender: Male Ht: 67 in Wt: 178 lb BSA: 1.97 m2 HR: 96 bpm BP: 120 / 80 mmHg Heart Rhythm: Sinus Rhythm Exam Date: 2025 10:44 AM Patient Status: I/P Study Site: [facility] Primary Location: [facility] EStudy Info Exam Type: ECHO SINTIA COMPLETE Indications I34.81 - Calcification of mitral valve Contrast/Agitated Saline Contrast / Saline: Agitated Saline Amount: 10.00 ml Reaction to Contrast: no * A 3D, 2D, color Doppler and spectral Doppler transesophageal echocardiogram was performed with a Bubble Study. Staff Referring Physician: Pramod Torres Ordering Provider: Pramod Torres Attending Physician: Pramod Torres Fellow: Osvaldo Sepulveda Baseball Scout: Iris Greco Performing Physician: Tahmina Bui Complications [...] 2.49 cm2 >=2.00 AV Area (Cont Eq Trace) 3.03 cm2 AV DI (VTI) 0.58 AV DI (Trace) 0.71 AV Regurgitation 2D LVOT Area 4.27 cm2 Report Signatures Finalized by Tahmina Bui on 2025 04:53 PM Reviewed by Fellow Osvaldo Sepulveda on 2025 04:40 PM Procedure Note Tahmina Bui MD - 2025 Summary * There is a 1.16 cm x 0.78 cm mobile vegetation attached to theatrial surface of the anterior mitral valve leaflet tip (around the A2/X2wehvdvk tip). * There is moderate to severe [...] is grossly normal. Patient Info Name: Marshall Mercer Age: 65 years : 1960 Gender: Male Ht: 67 in Wt: 178 lb BSA: 1.97 m2 HR: 96 bpm BP: 120 / 80 mmHg Heart Rhythm: Sinus Rhythm Exam Date: 2025 10:44 AM Patient Status: I/P Study Site: [facility] Primary Location: [facility] EStudy Info Exam Type: ECHO SINTIA COMPLETE Indications I34.81 - Calcification of mitral valve Contrast/Agitated Saline Contrast / Saline: Agitated Saline Amount: 10.00 ml Reaction to Contrast: no * A 3D, 2D, color Doppler and spectral Doppler transesophagealechocardiogram was performed with a Bubble Study. Staff Referring Physician: Pramod Torres Ordering Provider: Pramod Torres Attending Physician: Pramod Torres Fellow: Osvaldo Sepulveda Baseball Scout: Iris Greco Performing Physician: Tahmina Bui Complications [...] anterior mitral valve leaflet tip (around the A2/B5gmjrniu tip). There is moderate to severe mitral [...] 2.49 cm2 >=2.00 AV Area (Cont Eq Trace) 3.03 cm2 AV DI (VTI) 0.58 AV DI (Trace) 0.71 AV Regurgitation 2D LVOT Area 4.27 cm2 Report Signatures Finalized by Tahmina Bui on 2025 04:53 PM Reviewed by Fellow Osvaldo Sepulveda on 2025 04:40 PM us Pramod Torres DO ECHO CUPID Final Result * CULTURE BLOOD (03/04/2025 11:09 AM CDT) Only the most recent of4 resultswithin the time period is included. Pathologist [facility] Culture No growth day 5 LAVELLE 03/09/2025 1:30 PM CDT [facility] MICROBIOLOGY Blood PERIPHERAL BLOOD / Unknown Lab Venipuncture / Unknown 03/04/2025 11:09 AM CDT 03/04/2025 11:25 AM CDT Pramod Torres DO LAB - MICROBIOLOGY ORDERABLES Final Result Performing Organization Address City/[facility]/ZIP Co de Phone Number [facility] MICROBIOLOGY [address] [place] [address], [facility] [phone] * HEPATITIS C AB SCREEN RFLX NAAT QUANT (03/04/2025 6:36 AM CDT) Pathologist [facility] Hepatitis C Antibody Non-react francisco Non-reac tive 03/04/2025 8:16 AM CDT [facility] Comment:Hepatitis C Antibody screen indicates no [...] ORDERABLES Fin al Result Performing Organization Address City/[facility]/ZIP Co de Phone Number [facility] [address] [place] [address], [facility] [phone] * HIV-1 HIV-2 ANTIBODY + HIV P24 AG PANEL (03/04/2025 6:36 AM CDT) [facility] HIV Antigen/Antibod y 1 & 2 Non-reacti ve Non-react francisco 03/04/2025 9:14 AM CDT [facility] Comment:No Laboratory eviden ce of HIV infection. Blood BLOOD SPECIMEN / Unknown Lab Venipuncture / Unknown 03/04/2025 6:36 AM CDT 03/04/2025 6:55 AM CDT Pramod Torres DO LAB - CHEMISTRY ORDERABLES Fin al Result Performing Organization Address City/[facility]/ZIP Co de Phone Number [address] [address], [facility] [phone] * HEPATITIS B PANEL (03/04/2025 6:36 AM CDT) Hepatitis B Surface Antibody Quantitative <3.0 <8.0 mIU/mL 03/04/2025 8:41 AM CDT [facility] Comment: Hepatitis B Surface Antibody Numeric Result Interpretation: Nonreactive: <8.0 mIU/mL Indeterminate: 8.0 - 12.0 mIU/mL Reactive: >12.0 mIU/mL Hepatitis B Virus Surface Antibody Non-react francisco Non-react francisco 03/04/2025 8:41 AM CDT [facility] Comment: < 8 mIU/mL Hepatitis B surface Antibody (HBsAb). Nonreactive for HBsAb - individual is considered not immune to Hepatitis B Virus infection. Hepatitis B Virus Surface Antigen Non-react francisco Non-react francisco 03/04/2025 8:41 AM CDT [facility] Hepatitis B Core Virus Antibody IgM Non-react francisco Non-react fracnisco 03/04/2025 8:41 AM CDT [facility] Blood BLOOD SPECIMEN / Unknown Lab Venipuncture / Unknown 03/04/2025 6:36 AM CDT 03/04/2025 6:55 AM CDT Pramod Torres DO LAB - CHEMISTRY ORDERABLES Fin al Result [address] [address], [place] [phone] * XR Panorex (03/03/2025 4:22 PM CDT) Anatomical Region Laterality Modality Head Radiographic Melba ging 03/04/2025 8:30 AM CDT Impressions 03/04/2025 9:17 AM CDT IMPRESSION: Lucencies within the right mandibular presumed location of absent of the molar and premolar teeth. Recommend dental consultation. The report was drafted by Ofe Aponte MD (vice president of brand management) 03/04/2025 8:30 AM. > Dictated by Hydrographic Engineer I, Jmaie Barriga MD have personally reviewed and interpreted this examination/study. > Interpreting Provider: Jamie Barriga MD on 03/04/2025 9:17 AM Narrative 03/04/2025 9:17 AM CDT PROCEDURE: XR PANOREX, DATE/TIME OF EXAM: 03/03/2025 4:22 PM, LOCATION [facility] INDICATION: D73.3: Abscess of spleen I34.81: Calcification [...] PANOREX, DATE/TIME OF EXAM: 03/03/2025 4:22 PM, [facility] INDICATION: D73.3: Abscess of spleen I34.81: Calcification [...] report was drafted by Ofe Aponte MD (vice president of brand management) 03/04/2025 8:30 AM. > Dictated by Hydrographic Engineer I, Jamie Barriga MD have personally reviewed and interpreted this examination/study. > Interpreting Provider: Jamie Barriga MD on 03/04/2025 9:17 AM Pramod Torres DO DIAGNOSTIC IMAGING ORDERABLES Final Result * URINE DRUG SCREEN IMMUNOASSAY (03/03/2025 12:34 PM CDT) Amphetamines Screen Urine Negative Negative: < 1000 ng/mL 03/03/2025 1:24 PM CDT [facility] Barbiturates Screen Urine Negative Negative: < 200 ng/mL 03/03/2025 1:24 PM CDT [facility] Benzodiazepine Screen Urine Negative Negative: < 200 ng/mL 03/03/2025 1:24 PM T [facility] Opiates Urine Negative Negative: < 300 ng/mL 03/03/2025 1:24 PM [facility] Cocaine Metabolites Urine Negative Negative: < 300 ng/mL 03/03/2025 1:24 PM [facility] Phencyclidine Screen Urine Negative Negative: < 25 ng/ml 03/03/2025 1:24 PM CDT [facility] Cannabinoids Screen Urine Negative Negative: <50 ng/mL 03/03/2025 1:24 PM [facility] Methadone Screen Urine Negative Negative: < 300 ng/mL 03/03/2025 1:24 PM T [facility] Fentanyl Screen Urine Negative Negative: <1.5 ng/mL 03/03/2025 1:24 PM T [facility] Urine URINE / Unknown Collection / Unknown 03/03/2025 12:34 PM CDT 03/03/2025 12:39 PM CDT [facility] - 03/03/2025 1:24 PM CDT The Urine Toxicology Screening Panel does not screen for Propoxyphene, Meprobamate, Carisoprodol, Trazodone, jwzb-lhv-wombjyj medications and/or volatiles (Acetone, Isopropanol, Methanol or Ethylene Glycol). Ethanol, Salicylate, Acetaminophen, Tricyclic Antidepressants and several therapeutic drugs may be individually assayed in serum or plasma specimen. Toxicology testing by the [facility] is an aid to medical diagnosis and treatment of patients. No documented chain of custody was maintained. Results are intended to be used for clinical purposes only. Pramod Torres DO LAB - URINE CHEMISTRY ORDERABL ES Final Result [address] [address], [facility] [phone] * VANCOMYCIN LEVEL RANDOM (03/03/2025 5:00 AM CDT) Only the most recent of3 resultswithin the time period is included. [facility] Vancomycin Random 17.1 Therapeutic Ranges not established for random specimens ug/mL 03/03/2025 6:06 AM CDT [facility] Blood BLOOD SPECIMEN / Unknown Lab Venipuncture / Unknown 03/03/2025 5:00 AM CDT 03/03/2025 5:31 AM CDT Narrative [facility] - 03/03/2025 6:06 AM CDT See institution protocol. Pramod Torres DO LAB - CHEMISTRY ORDERABLES Fin al Result Performing Organization Address [facility] Co de Phone Number [address] [address], [facility] [phone] * MRSA PCR (03/02/2025 8:47 AM CDT) [facility] MRSA DNA by PCR Not detected Not detected 03/02/2025 3:41 PM CDT [facility] MICROBIOLOGY Microbiology SPECIMEN FROM NASAL FOSSAE / Unknown Collection / Unknown 03/02/2025 8:47 AM CDT 03/02/2025 8:52 AM CDT Narrative [facility] MICROBIOLOGY - 03/02/2025 3:41 PM CDT Methicillin-resistant Staphylococcus aureus (MRSA) DNA is not detected (presumed not colonized with MRSA). us Shira Harris MD LAB - MICROBIOLOGY ORDERABLES Fi nal Result Performing Organization Address City/[facility]/ZIP Co de Phone Number [facility] MICROBIOLOGY [address] [place] [address], [facility] [phone] * MONONUCLEOSIS SCREEN (03/02/2025 5:34 AM CDT) [facility] Mononucleosis Qualitative Negative Negative 03/02/2025 6:42 AM CDT [facility] Blood BLOOD SPECIMEN / Unknown Lab Venipuncture / Unknown 03/02/2025 5:34 AM CDT 03/02/2025 6:11 AM CDT Shira Harris MD LAB - CHEMISTRY ORDERABLES Final Result [address] [address], [facility] [phone] * (ABNORMAL) BLOOD CULTURE ID PANEL (03/02/2025 5:33 AM CDT) [facility] Enterococcus faecalis Detected(A) Not detected 03/03/2025 10:33 AM CDT [facility] MICROBIOLOGY Van A/B Vancomycin Resistance Not detected Not detected 03/03/2025 10:33 AM CDT [facility] Comment:Results indicate van comycin-susceptible Enterococcus faecalis. Louisa/B not detected. Blood PERIPHERAL BLOOD / Unknown Lab Venipuncture / Unknown 03/02/2025 5:33 AM CDT 03/02/2025 6:06 AM CDT Narrative [facility] MICROBIOLOGY - 03/03/2025 10:33 AM CDT Blood Culture ID Panel performed by Briggo multiplex PCR. The Test panel includes: Gram [...] and MREJ (methicillin-resistance - MRSA), NDM ([place] ziqbjjd-tcyj-bpqmujird), OXA-48-like (oxacillinase beta-lactamase),Louisa/B (vancomycin-resistance), VIM (Sangeeta Intergrom-Encoded Metallo beta-lactamase). us Shira Harris MD LAB - MICROBIOLOGY ORDERABLES Fi nal Result [facility] [address] [place] [address], [facility] [phone] from Last 3 Months Insurance Advance Directives * Full Code (Latest Code Status on File) Date Activated Date Inactivated Comments 03/01/2025 10:01 PM 03/23/2025 4:41 PM Care Teams Color Mixer Relationship Specialty Start Date End Date Carlos Ventura MD [address], [place] [phone] PCP - General Internal Medicine 03/17/25
--- OUTSIDE RECORDS SUMMARY | 2025-03-24 11:54 | XMS_ITS | Clinical Summary ---
Author Organization [facility] Address [address] [place] [address] Care Team Providers Care Tractor Trailer Moving Van Driver Name Role Phone Carlos Ventura MD Primary Care Provider [phone] Allergies No known active allergies Medications Fluticasone-Um [...] 0.6 oz pure alcohol) vodka every evening [facility] Utilities Answer Date Recorded In the past 12 months has [facility] [employer], or [employer] threatened to shut off services in your [...] were you homeless or living in a halfway (including now)? No 03/04/2024 Sex and Gender [...] Colorectal Cancer Screening Colonoscopy (10 Years) 1960 DTaP, Tdap and Td Vaccines ( 1 - Tdap) 1979 Pneumococcal Vaccine: 50+ Ye ars (1 of 1 - PCV) 2010 Zoster Vaccines (1 of 2) 2010 COVID-19 Vaccine ( - 2023-2 5 season) 2025 RSV Immunization or 60+ Years (1 - [...] this topic Medical Devices Implanted Type Area Mortgage Processor Device Identifier Shelf Expiration Date Model / Serial / Lot Stent Ureteral Contour Vl 4.8fr X 22-30cm - [id number] Implanted:Qty : 1 on 03/05/2024 by Stanley Gonzalez MD at [facility] Stent Right: [employer] [id number] 12/07/2026 [id number] 50 / / [id number] Stent Ureteral Contour Vl 4.8fr X 22-30cm - [id number] Implanted:Qty : 1 on 03/05/2024 by Stanley Gonzalez MD at [facility] Stent Right: Ureter [employer] [id number] 12/07/2026 [id number] 50 / / [id number] Procedures Procedure Name Priority Date/Time Associated Diagnosis Comments HEPATITIS C ANTIBODY Routine 03/04/2024 6:42 AM CDT from Last 3 Months or Most Recently Relevant to Health Maintenance Results * HEPATITIS C ANTIBODY W/REFLEX (03/04/2024 6:42 AM CDT) HEPATITIS C AB NON-REACTI VE NON-REACTI VE 03/04/2024 8:53 AM CDT [facility] 03/04/2024 6:42 AM CDT us Moses Leslie MD LABORATORY Final Result [facility] [address] [place] [address], from Last 3 Months or Most Recently Relevant to Health Maintenance Insurance [facility] Advance Directives * Full Code (Latest Code Status on File) Date Activated Date Inactivated Comments 03/03/2024 9:23 PM 2024 2:50 PM Care Teams Tractor Trailer Moving Van Driver Relationship Specialty Start Date End Date Carlos Ventura MD [address] [place] [address] PCP - General INTERNAL MEDICINE 03/03/24
[2025-03-24 12:45] LABS: INR 1.3; Prothrombin Time 16.0 Seconds (11.1-14.7)
== END 2025-03-24 11:35 | disposition home or self-care (01) ==
DX: Z48.812 Encounter for surgical aftercare following surgery on the circulatory system (principal)
CPT/HCPCS: 36415; 85610

== ENCOUNTER 2025-03-29 14:40 | Outpatient (NON) | payer BC, SELFPAY ==
[2025-03-29 14:57] LABS: Hematocrit 33.4 % (37.0-46.0); Hemoglobin 10.2 g/dL (12.4-15.3); Immature Granulocyte Percent A 2.1 % (0.0-0.0); Immature Platelet Fraction Pct 0.9 % (1.0-7.0); Lymphocytes Absolute Auto 1.59 K/mm3 (1.10-4.50); Mean Corpuscular HGB Conc 30.5 g/dL (32-36); Mean Corpuscular Hemoglobin 27.9 pg (27.0-31.0); Mean Corpuscular Volume 91.5 fL (78.0-102.0); Nucleated Red Blood Cells Absolute Auto 0.00 K/mm3 (0.00-0.00); Nucleated Red Blood Cells Perc 0.0 % (0-0.0); Platelet Count Result 606 K/mm3 (150-420); Red Blood Count 3.65 M/mm3 (4.70-6.10); White Blood Count 13.5 K/mm3 (4.8-10.8)
[2025-03-29 14:59] LABS: Alanine Aminotransferase 30 U/L (6-50); Albumin Level 4.3 g/dL (3.5-5.1); Alkaline Phosphatase 140 U/L (38-126); Anion Gap 14 mmol/L (4-12); Aspartate Amino Transferase 28 U/L (17-59); Bilirubin,Total 0.5 mg/dL (0.2-1.3); Blood Urea Nitrogen 44 mg/dL (9-20); Calcium 10.2 mg/dL (8.4-10.2); Carbon Dioxide 24 mmol/L (22-30); Chloride 104 mmol/L (98-107); Estimated Glomerular Filt Rate 19; Glucose 95 mg/dL (65-110); INR 1.3; Osmolality Calculated 305 mOsm/kg (285-295); Potassium 4.8 mmol/L (3.4-5.0); Prothrombin Time 14.1 Seconds (9.50-12.1); Sodium 142 mmol/L (137-145); Total Protein 8.4 g/dL (6.3-8.2)
--- OUTSIDE RECORDS SUMMARY | 2025-03-29 15:13 | XMS_ITS | Clinical Summary ---
Author Organization [employer] Address [address] [place] [address] Care Team Providers Care Packer Insulation Name Role Phone Carlos Ventura MD Primary Care Provider Source Comments [facility] [employer],non-owned Affiliates and Associated Physician Practices is amultiple site organization consisting of ambulatory clinics and hospital sitesin [place], [place], [place] and [place]. This disclosure is being madepursuant to the Care Everywhere program and may not contain all information available regarding this patient. Last updated 18.[employer] Allergies No known active allergies Medications * [...] w/ diff, CMP, please fax results to [facility] Infectious disease clinic, fax [phone], Attn Yesica Cabello PA-C 025 2024 Active ampicillin 2 g in NaCl IV 0.9 % 100 mL - IV ampicillin 2g every 8 hours (renally dosed), consider continuous infusion outpatient to help with easier administration. - Duration of therapy 6 weeks from date of MVR, 03/15/2025 - EOT 04/26/2025. - Weekly labs: CBC w/ diff, CMP, please fax results to [facility] Infectious disease clinic, fax [phone], Attn Yesica Cabello PA-C 2024 Active aspirin (Aspirin) 81 MG chew tablet Take 1 (one) tablet by mouth once daily (chew and swallow) 30 tablet 03/23/20 25 11:32 AM CDT Active furosemide (Lasix) 20 MG tablet Take 1 (one) tablet by mouth once daily for 30 days 30 tablet 03/23/20 25 11:32 AM CDT 025 2024 Active potassium chloride ER 10 MEQ tablet Take 1 (one) tablet by mouth once daily for 30 days Stop taking when no longer taking furosemide/Lasix 30 tablet 03/23/20 11:32 AM CDT 025 2024 Active warfarin (Coumadin) 2 MG tablet Take 4 mg // and 6 mg /// Active amLODIPine (Norvasc) 5 MG tablet Take 1 (one) tablet by mouth once daily 2024 Discontinued(C linical Decision) metoprolol succinate XL 24hr (Toprol XL) 25 MG tablet Take 1 (one) tablet by mouth once daily 2024 Discontinued(C linical Decision) montelukast (Singulair) 10 MG tablet Take 1 (one) tablet by mouth at bedtime 2024 Discontinued(C linical Decision) warfarin (Coumadin) 2 MG tablet To start, take 2 tablets (4 mg) by mouth once daily. Dose will be adjusted initially by Dr. Hernandez's office according to your INR results. Starting 04/05/25, the Anticoagulation Clinic at [facility] will be dosing your warfarin 60 tablet 03/23/20 11:32 AM CDT 2024 Discontinued Active Problems Problem Noted Date Diagnosed Date [...] note from 03/13 -- Will call CTS 08 AM to discuss Assessment & Plan (03/13/2025 [...] for CTS Pre-OP evaluation - F/u labs 825 am Assessment & Plan (03/11/2025 11:38 AM [...] zosyn were stopped - MRSA negative - SNITIA came back for large vegetation on mitral [...] for CTS Pre-OP evaluation - F/u labs 825 am Assessment & Plan (03/12/2025 11:01 AM [...] Pre-OP evaluation - F/u labs 25 am Assessment & Plan (03/11/2025 11:38 AM [...] valve with severe mitral regurgitation. Per SINTIA, [facility] recommends multi team consult for approved recs [...] note from 03/13 -- Will call CTS 08 AM to discuss Assessment & Plan (03/13/2025 [...] valve with severe mitral regurgitation. Per SINTIA, [facility] recommends multi team consult for approved recs [...] Encounters Date Type Department Care Team Description 03/27/2025 Orders Only [facility] - Cardiothoracic Surgery [address] [place] [phone] Alma Rosa Rodriguez RN 03/24/2025 Telephone [facility] - Infectious Disease [address] [place] [phone] Yesica Cabello PA-C Appointment 03/15/2025 11:24 AM CDT Anesthesia Event [facility] OP [address] [place] [phone] SreeniAlexa dukes MD Polhemus, Kyle, MD 03/15/2025 8:55 AM CDT - 03/15/2025 2:40 PM CDT Surgery [facility] OP [address] [place] [address] Rahul Hernandez MD Mitral valve replacement 03/15/2025 6:25 AM CDT Ancillary Procedure [facility] OP [address] [place] [address] Cornelia Serra MD Heis, Farah, MD 03/10/2025 8:54 AM CDT - 03/10/2025 10:10 AM CDT Surgery [facility] - 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 [address] [place] [phone] Selene Duran MD Left Heart Cath 03/09/2025 6:03 PM CDT Anesthesia Event [facility] [place] [address] [place] [phone] Prakash De La Torre, Carlitos Flores, DIANDRA 03/09/2025 5:45 PM CDT - 03/09/2025 7:28 PM CDT Surgery [facility] [place] [address] [place] [phone] Sedic, Vedrana, DMD EXTRACTION DENTAL (MULTIPLE) 2025 9:22 AM CDT - 2025 11:59 PM CDT Hospital Encounter [facility] - 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 [address] [place] [phone] Pramod Torres DO Heis, Farah, MD Discharge Disposition: Home or Self Care 03/01/2025 9:44 PM CDT - 03/23/2025 3:36 PM CDT Hospital Encounter [facility] [address] ACUTE [address] [place] [phone] Shira Harris MD Mayer, Joshua C, DO Wheeler, Joseph R, MD Eshetu, Nebiyu A, MD Lawrance, Christopher Paul, MD Cardiothoracic Surgery Discharge Disposition: Home Health Care [facility] 03/01/2025 Travel 03/01/2025 Telephone [facility] PHYS INTERNAL MED [address] [place] [address] Shira Harris MD General (OSH transfer) 03/01/2025 Telephone [facility] PHYS INTERNAL MED [address] [place] [address] Freddy Velazquez MD Hospital Admission from Last [...] and heating? Not hard at all 03/01/2025 [facility] Occup[facility] ional [facility] - Occupational Stress [...] any time in the past 12 m [facility], were you homeless or living in a care home (including now)? No 03/01/2025 Sex and Gender Information Value Date Recorded Sex Assigned at Not on file Legal Sex Male 10:10 AM [employer]ACH [employer] F[employer] Gender Identity Not on file Sexual Orientation [...] Description 04/04/2025 11:00 AM CDT Office Visit [facility] - Cardiothoracic Surgery [address] [place] [address], [facility] [place] [address] Rahul Hernandez MD [address] [place] [address] [address] [place] [address] 04/20/2025 8:30 AM CDT Office Visit [facility] - Infectious Disease [address] [place] [address], [facility] [place] [address] Yesica Cabello, PA-C [address] [place] [address] 05/01/2025 9:00 AM CDT Appointment [facility] IVR [address] [place] [phone] Garcia Gil MD [address] [place] [address] Health Maintenance Due Date Last Done Comments [...] this topic Medical Devices Implanted Type Area Network Administrator Device Identifier Shelf Expiration Date Model / Serial / Lot Ndl Sut 3 Blnt Cut Cbl Strl Spnl Ss Implanted:Qty: 1 on 03/15/2025 by Rahul Hernandez MD at [facility] N/A: Sternum [employer] 08/17/2029 [id number] / / [id number] Plate 6 Hl O Cncv Bone Lf Nonster Implanted:Qty: 1 on 03/15/2025 by Rahul Hernandez MD at [facility] N/A: Sternum [employer] 115.604.06 / / Screw 14mm Lck Nonster Bone Lf Implanted:Qty: 6 on 03/15/2025 by Rahul Hernandez MD at [facility] N/A: Sternum [employer] 100.035.14 / / Screw 16mm Lck Nonster Bone Lf Implanted:Qty: 6 on 03/15/2025 by Rahul Hernandez MD at [facility] N/A: Sternum [employer] 100.035.16 / / Screw 18mm Lck Nonster Bone Lf Implanted:Qty: 6 on 03/15/2025 by Rahul Hernandez MD at [facility] N/A: Sternum [employer] 100.035.18 / / Valve Mtrl 31mm Resilia - [id number] Implanted:Qty: 1 on 03/15/2025 by Rahul Hernandez MD at [facility] N/A: Mitral Valve [employer] 10/12/2029 [id number] / [id number] / Ndl Sut 3 Blnt Cut Cbl Strl Spnl Ss Implanted:Qty: 1 on 03/15/2025 by Rahul Hernandez MD at [facility] N/A: Sternum [employer] [id number] / / Plate Bone H 6 Hl Nonster Lf Implanted:Qty: 2 on 03/15/2025 by Rahul Hernandez MD at [facility] N/A: Sternum [employer] 115.102.06 / / Explanted Type Area Network Administrator Device Identifier Shelf Expiration Date Model / Serial / Lot Plate Bone H 6 Hl Nonster Lf Explanted:Qty: 2 on 03/15/2025 by Rahul Hernandez MD at [facility] N/A: Mitral Valve [employer] 115.102.06 / / Description:no cost implant per rep; doc pay once program Plate 6 Hl O Cncv Bone Lf Nonster Explanted:Qty: 1 on 03/15/2025 by Rahul Hernandez MD at [facility] N/A: Mitral Valve [employer] 115.604.06 / / Description:no cost implant per rep; doc pay once program Screw 14mm Lck Nonster Bone Lf Explanted:Qty: 6 on 03/15/2025 by Rahul Hernandez MD at [facility] N/A: Mitral Valve [employer] 100.035.14 / / Description:no cost implant per rep; doc pay once program Screw 16mm Lck Nonster Bone Lf Explanted:Qty: 6 on 03/15/2025 by Rahul Hernandez MD at [facility] N/A: Mitral Valve [employer] 100.035.16 / / Description:no cost implant per rep; doc pay once program Screw 18mm Lck Nonster Bone Lf Explanted:Qty: 6 on 03/15/2025 by Rahul Hernandez MD at [facility] N/A: Mitral Valve [employer] 100.035.18 / / Description:no cost implant per rep; doc pay once program Procedures Procedure Name Priority Date/Time Associated Diagnosis Comments APHERESIS/TRANSFUSION ORDER 03/24/2025 12:11 PM CDT COMPREHENSIVE METABOLIC PANEL AM Draw 03/23/2025 [...] stage 5, GFR less than 15 ml/min ([facility]) XR CHEST 1VW PORTABLE Routine 03/22/2025 4:27 [...] insufficiency, unspecified etiology HEPATIC FUNCTION PANEL Routine 03/19/2025 4:28 AM CDT BASIC METABOLIC [...] 3:11 AM CDT SVO2 FOR RECALIBRATION Routine 03/16/2025 3:11 AM CDT PHOSPHORUS BLOOD [...] 12:01 AM CDT SVO2 FOR RECALIBRATION Timed 03/15/2025 9:58 PM CDT BLOOD GASES ART + [...] 8:19 PM CDT SVO2 FOR RECALIBRATION Routine 03/15/2025 8:19 PM CDT GLUCOSE - [...] 40 PM CDT DIFFERENTIAL MANUAL STAT 03/15/2025 5 :32 PM CDT SVO2 FOR RECALIBRATION Timed 03/15/2025 5:32 PM CDT PTT STAT 03/15/2025 5:32 [...] 3:30 PM CDT ACT PLUS - POCT ([facility]) Routine 03/15/2025 3:17 PM CDT BLOOD GAS+COOX+LYTES+METAB ARTERIAL POCT [...] 2:42 PM CDT ACT PLUS - POCT ([facility]) Routine 03/15/2025 2:39 PM CDT FIBRINOGEN ACTIVITY STAT 03/15/2025 2 :34 PM CDT Mitral valve vegetation (HCC) PLATELET COUNT AUTO CITRATED BLOOD STAT 03/15/2025 2:33 PM CDT Mitral valve vegetation (HCC) ACT PLUS - POCT ([facility]) Routine 03/15/2025 2:07 PM CDT BLOOD GAS+COOX+LYTES+METAB ARTERIAL POCT Routine 03/15/2025 2:06 PM CDT PATHOLOGY TISSUE Routine 03/15/2025 1:53 PM CDT Mitral valve insufficiency, unspecified etiology BLOOD GAS+COOX+LYTES+METAB ARTERIAL POCT Routine 03/15/2025 1:30 PM CDT ACT PLUS - POCT ([facility]) Routine 03/15/2025 1:29 PM CDT BLOOD GAS+COOX+LYTES+METAB ARTERIAL POCT Routine 03/15/2025 1:15 PM CDT ACT PLUS - POCT ([facility]) Routine 03/15/2025 1:14 PM CDT ACT PLUS - POCT ([facility]) Routine 03/15/2025 1:04 PM CDT ACT PLUS - POCT ([facility]) Routine 03/15/2025 12:53 PM CDT BLOOD GAS+COOX+LYTES+METAB ARTERIAL POCT Routine 03/15/2025 12:52 PM CDT ACT PLUS - POCT ([facility]) Routine 03/15/2025 12:44 PM CDT BLOOD GAS+COOX+LYTES+METAB ARTERIAL POCT Routine 03/15/2025 12:33 PM CDT PULMONARY ARTERY CATHETER NOTE Routine 03/15/2025 12:19 PM CDT PULMONARY ARTERY CATHETER NOTE Routine 03/15/2025 12:19 PM CDT CENTRAL LINE NOTE Routine 03/15/2025 12:19 PM CDT ENDOTRACHEAL TUBE NOTE Routine 03/15/2025 12:18 PM CDT ARTERIAL LINE NOTE Routine 03/15/2025 12:18 PM CDT GA REPLACEMENT OF MITRAL VALVE 03/15/2025 11:04 AM CDT Mitral valve insufficiency, unspecified etiology Case Notes Perfusion requested - Notified via scheduling emails 03/08/25 Special Needs Supine BLOOD GAS KATHY+LYTES+METAB+COOX POC NOTIF Routine 03/15/2025 [...] 6:05 AM CDT ENDOTRACHEAL TUBE NOTE Routine 03/09/2025 6:28 PM CDT GA DENTAL SURGERY PROCEDURE 03/09/2025 5:37 PM CDT Infection Case Notes DOCTOR SEDIC WILL BE TO [facility] AND AVAILABLE TO OPERATE AT 1600. [...] CDT PTH INTACT W/O CALCIUM AM Draw 03/08/2025 5:05 AM CDT CBC [...] AM CDT BLOOD CULTURE ID PANEL Routine 03/02/2025 5:33 AM CDT CULTURE BLOOD Timed 03/02/2025 5:33 AM CDT CULTURE BLOOD Timed 03/02/2025 5:33 AM CDT from Last 3 Months Results * APHERESIS/TRANSFUSION ORDER (03/24/2025 12:11 PM CDT) Narrative 03/24/2025 12:11 PM CDT Ordered by an unspecified provider. us Scanned Document NURSING - VITAL SIGNS AND ASSES SMENT Final Result * (ABNORMAL) CALCIUM IONIZED WHOLE BLOOD (03/23/2025 12:54 AM CDT) Only the most recent of10 resultswithin the time period is included. Calcium Ionized 1.16 mmol/L 03/23/2025 1:17 AM CDT [facility] pH 7.41 7.35 - 7.45 pH 03/23/2025 1:17 AM CDT [facility] Ionized Calcium pH Adjusted 1.16(L) 1.19 - 1.34 mmol/L 03/23/2025 1:17 AM CDT [facility] Blood BLOOD SPECIMEN / Unknown Lab Venipuncture / Unknown 03/23/2025 12:54 AM CDT 03/23/2025 1:12 AM CDT us Mariya Botello PA-C LAB - CHEMISTRY ORDERABLES F inal Result [facility] [address] [place] [phone], [facility] [phone] * (ABNORMAL) PT-INR (03/23/2025 12:54 AM CDT) Only the most recent of8 resultswithin the time period is included. PT 15.9(H) 12.1 - 14.8 Seconds 03/23/2025 1:37 AM [facility] INR 1.3 See Comment 03/23/2025 1:37 AM [facility] Comment:The suggested therap eutic range for standard coumadin (warfarin) therapy is an INR of 2.0-3.0. For high-risk patients (Mechanical Mitral Valve Prosthesis, etc.), the suggested prophylactic therapeutic range is an INR of 2.5-3.5. Blood BLOOD SPECIMEN / Unknown Lab Venipuncture / Unknown 03/23/2025 12:54 AM CDT 03/23/2025 1:16 AM CDT us Rahul Hernandez MD LAB - COAGULATION O RDERABLES Final Result [facility] [address] [place] [address], [facility] [phone] * (ABNORMAL) COMPREHENSIVE METABOLIC PANEL (03/23/2025 12:54 AM CDT) Only the most recent of22 resultswithin the time period is included. BUN 61(H) 7 - 26 mg/dL 03/23/2025 1:42 AM [facility] Creatinine 2.95(H) 0.71 - 1.16 mg/dL 03/23/2025 1:42 AM [facility] Sodium 135(L) 136 - 145 mmol/L 03/23/2025 1:42 AM [facility] Potassium 4.6(H) 3.5 - 4.5 mmol/L 03/23/2025 1:42 AM [facility] Chloride 102 98 - 107 mmol/L 03/23/2025 1:42 AM [facility] CO2 24 22 - 29 mmol/L 03/23/2025 1:42 AM [facility] Glucose 101(H) 70 - 99 mg/dL 03/23/2025 1:42 AM [facility] Calcium 9.0 8.4 - 10.2 mg/dL 03/23/2025 1:42 AM [facility] Protein Total 7.1 6.0 - 8.3 g/dL 03/23/2025 1:42 AM [facility] Albumin 3.2(L) 3.4 - 5.0 g/dL 03/23/2025 1:42 AM [facility] Bilirubin Total 0.2 0.2 - 1.2 mg/dL 03/23/2025 1:42 AM [facility] Alkaline Phosphatase 168(H) 40 - 150 U/L 03/23/2025 1:42 AM [facility] ALT 67(H) 5 - 55 U/L 03/23/2025 1:42 AM [facility] AST 43(H) 5 - 34 U/L 03/23/2025 1:42 AM [facility] Anion Gap 9 6 - 16 03/23/2025 1:42 AM [facility] BUN/Creatinine Ratio 21 7 - 23 03/23/2025 1:42 AM [facility] Osmolality Calculated 297(H) 275 - 295 mOsm/kg 03/23/2025 1:42 AM [facility] Albumin/Globulin Ratio 0.8(L) 1.1 - 2.3 03/23/2025 1:42 AM [facility] eGFR by CKD-EPI 23(L) >=90 mL/min/1.7 3 m2 03/23/2025 1:42 AM [facility] Comment:Estimated Glomerular Filtration Rate (eGFR) calculated using the CKD-EPI Creatinine Equation (2020), per the National Kidney Foundation and [place] [employer]ph[employer] recommendations. Blood BLOOD SPECIMEN / Unknown Lab Venipuncture / Unknown 03/23/2025 12:54 AM CDT 03/23/2025 1:16 AM CDT us Rahul Hernandez MD LAB - CHEMISTRY ORD ERABLES Final Result [facility] [address] [place] [address], [facility] [phone] * PHOSPHORUS BLOOD (03/23/2025 12:54 AM CDT) Only the most recent of23 resultswithin the time period is included. Phosphorus 3.7 2.8 - 5.1 mg/dL 03/23/2025 1:42 AM CDT [facility] Blood BLOOD SPECIMEN / Unknown Lab Venipuncture / Unknown 03/23/2025 12:54 AM CDT 03/23/2025 1:16 AM CDT Mariya Botello PA-C LAB - CHEMISTRY ORDERABLES F inal Result Performing Organization Address [facility] Co de Phone Number [address] [address], [facility] [phone] * MAGNESIUM BLOOD (03/23/2025 12:54 AM CDT) Only the most recent of23 resultswithin the time period is included. Pathologist [facility] Magnesium 2.0 1.6 - 2.6 mg/dL 03/23/2025 1:42 AM CDT [facility] Blood BLOOD SPECIMEN / Unknown Lab Venipuncture / Unknown 03/23/2025 12:54 AM CDT 03/23/2025 1:16 AM CDT Mariya Botello PA-C LAB - CHEMISTRY ORDERABLES F inal Result Performing Organization Address [facility] de Phone Number [address] [address], [facility] [phone] * (ABNORMAL) CBC W/O DIFFERENTIAL (03/23/2025 12:53 AM CDT) Only the most recent of13 resultswithin the time period is included. Pathologist [facility] WBC 12.0(H) 4.0 - 10.7 x10E9/L 03/23/2025 1:22 AM CDT [facility] RBC Count 3.22(L) 4.30 - 5.80 x10E12/L 03/23/2025 1:22 AM CDT [facility] Hemoglobin 9.1(L) 13.3 - 17.5 g/dL 03/23/2025 1:22 AM T [facility] Hematocrit 29.0(L) 38.7 - 51.1 % 03/23/2025 1:22 AM CDT [facility] MCV 90.1 80.0 - 98.0 fL 03/23/2025 1:22 AM T [facility] MCH 28.3 26.7 - 33.6 pg 03/23/2025 1:22 AM T [facility] MCHC 31.4(L) 31.7 - 36.3 g/dL 03/23/2025 1:22 AM T [facility] RDW-CV 19.8(H) 11.3 - 14.8 % 03/23/2025 1:22 AM T [facility] Platelet Count 334 150 - 420 x10E9/L 03/23/2025 1:22 AM T [facility] MPV 10.2 7.8 - 11.4 fL 03/23/2025 1:22 AM [facility] Blood BLOOD SPECIMEN / Unknown Lab Venipuncture / Unknown 03/23/2025 12:53 AM CDT 03/23/2025 1:15 AM CDT Mariya Botello PA-C LAB - HEMATOLOGY ORDERABLES Final Result [facility] [address] [place] [address], [facility] [phone] * IR Central Line Insert Tunnel (03/22/2025 [...] stage 5, GFR less than 15 ml/min ([facility]) Additional History: Roll Repairer: Garcia Gil MD COMPARISON: None. FLUOROSCOPY DOSE: [...] evaluation, please review the evaluation forms in [facility]. For details on monitored clinical parameters during the intra-service sedation time, please review the procedure nurse documentation in [facility]. I was present for the Entire procedure. Procedure Note Garcia Gil MD - 03/22/2025 PROCEDURE: IR CENTRAL LINE INSERT TUNNEL DATE/TIME OF EXAM: 03/22/2025 12:53 PM CLINICAL INFORMATION: None relevant/not provided if blank. Indication: R09.89: Endocarditis, suspected N18.5: CKD (chronic kidney disease) stage 5, GFR less than 15 ml/min(HCC) Additional History: Roll Repairer: Garcia Gil MD COMPARISON: None. FLUOROSCOPY DOSE: [...] response to care. Intra-service sedation start time [id number] and end time was 1228 during which I was present. Total physician intra-service sedation time was 14 minutes. For details on pre-moderate sedation and post-moderate sedation patient evaluation, please reviewthe evaluation forms in [facility]. For details on monitored clinical parameters during the intra-service sedation time, please review the procedurenurse documentation in [facility]. I was present for the Entire [...] DATE/TIME OF EXAM: 03/22/2025 4:27 AM, LOCATION [facility] INDICATION: I34.0: Mitral valve insufficiency, unspecified [...] spine. Report dictated by Jamie Rucker MD, (vice president investor relations). > Dictated by Compensation Coordinator I, Jamie Barriga MD have personally reviewed and interpreted this examination/study. > Interpreting Provider: Jamie Barriga MD on 03/22/2025 7:08 PM Procedure Note Jamie Barriga MD - 03/22/2025 PROCEDURE: XR CHEST 1VW PORTABLE, DATE/TIME OF EXAM: 03/22/2025 4:27 AM, LOCATION [facility] INDICATION: I34.0: Mitral valve insufficiency, unspecified [...] spine. Report dictated by Jamie Rucker MD, (vice president investor relations). > Dictated by Compensation Coordinator I, Jamie Barriga MD have personally reviewed and interpreted this examination/study. > Interpreting Provider: Jamie Barriga MD on 03/22/2025 7:08 PM Buffy Jang INSURANCE MARKETING REP-METER ENGINEER DIAGNOSTIC IMAGI NG ORDERABLES Final Result * EKG 12-Lead (03/20/2025 12:00 PM CDT) Only the most recent of7 resultswithin the time period is included. Ventricular Rate 125 BPM [facility] Atrial Rate 125 BPM [facility] MUSE QRS Duration ms 90 ms [facility] MUSE Q-T Interval ms 336 ms [facility] MUSE QTC Calculation (Bezet) 484 ms [facility] MUSE Calculated P [place] 55 degrees [facility] Calculated R [place] 69 degrees [facility] Calculated T [place] 55 degrees [facility] Interpretation EKG SINUS TACHYCARDIA NONSPECIFIC ST ABNORMALITY ABNORMAL ECG WHEN COMPARED WITH ECG OF 20-MAR-2025 11:59, SINUS TACHYCARDIA HAS REPLACED JUNCTIONAL RHYTHM Confirmed by MISSY ALFARO, PRASAD ([id number]) on 03/26/2025 10:12:19 PM [facility] MUSE 03/20/2025 12:0 0 PM CDT 03/26/2025 10:12 PM CDT us Yousuf Chaudhari PA-C ECG ORDERABLES Edited Resu lt - Final [facility] NILDA * (ABNORMAL) BASIC METABOLIC PANEL (CALCIUM TOTAL) (03/19/2025 8:44 PM CDT) Only the most recent of3 resultswithin the time period is included. BUN 54(H) 7 - 26 mg/dL 03/19/2025 9:27 PM [facility] Creatinine 2.92(H) 0.71 - 1.16 mg/dL 03/19/2025 9:27 PM [facility] Sodium 134(L) 136 - 145 mmol/L 03/19/2025 9:27 PM [facility] Potassium 3.7 3.5 - 4.5 mmol/L 03/19/2025 9:27 PM [facility] Chloride 101 98 - 107 mmol/L 03/19/2025 9:27 PM [facility] CO2 22 22 - 29 mmol/L 03/19/2025 9:27 PM [facility] Glucose 122(H) 70 - 99 mg/dL 03/19/2025 9:27 PM [facility] Calcium 8.7 8.4 - 10.2 mg/dL 03/19/2025 9:27 PM [facility] Anion Gap 11 6 - 16 03/19/2025 9:27 PM [facility] BUN/Creatinine Ratio 18 7 - 23 03/19/2025 9:27 PM [facility] Osmolality Calculated 294 275 - 295 mOsm/kg 03/19/2025 9:27 PM [facility] eGFR by CKD-EPI 23(L) >=90 mL/min/1.7 3 m2 03/19/2025 9:27 PM [facility] Comment:Estimated Glomerular Filtration Rate (eGFR) calculated using the CKD-EPI Creatinine Equation (2020), per the National Kidney Foundation and [place] [employer]ph[employer] recommendations. Blood BLOOD SPECIMEN / Unknown Venipuncture / Unknown 03/19/2025 8:44 PM CDT 03/19/2025 8:58 PM CDT us Nayanbita Hernandez INSURANCE MARKETING REP-METER ENGINEER LAB - CHEMISTRY ORD ERABLES Final Result [facility] [address] [place] [address], [place] [phone] * ECHO COMPLETE W CONTRAST (03/19/2025 10:47 [...] AV pk trace 153.514 cm/s [facility] CV FUJ I PACS AV VTI 27.253 cm [facility] CV FUJ I PACS MV A pk trace 97.364 cm/s [facility] CV F UJI PACS MV E pk trace 123.515 cm/s [facility] CV F UJI PACS MV E' lateral trace 4.132 cm/s SS M CV FUJI PACS MV mn grad 2.134 mmHg [facility] CV FU JI PACS MV VTI 25.234 cm [facility] CV FUJ I PACS PV pk trace 101.698 cm/s [facility] CV FUJ I PACS PV VTI 13.746 cm [facility] CV FUJ I PACS TAPSE 1.405 cm [facility] CV FUJ I PACS Ascending aorta 3.209 cm [facility] [...] 10:16 AM Patient Status: I/P [facility] SYSTEM Primary Location: [facility] Info Technical Quality: Fair Exam Type: ECHO [...] Provider: Rahul Hernandez Attending Physician: Rahul Hernandez Books Salesperson: Jose G Casper Left Ventricle The left [...] Harmon on 03/20/2025 04:35 AM Procedure Note aRul Harmon MD - 03/20/2025 Summary * The [...] 10:16 AM Patient Status: I/P Study Site[facility] Technical Quality: Fair Exam Type: ECHO COMPLETE W CONTRAST Indications I34.0 - Mitral valve insufficiency, unspecified etiology Procedure(s) * A complete 2D, color Doppler, spectral Doppler, and M-Modetransthoracic echocardiogram was performed. Contrast/Agitated Saline Contrast / Saline: Definity Amount: 1.00 ml Administered By: Jose G Casper Reaction to Contrast: no Staff Referring Physician: Rahul Hernandez Ordering Provider: Rahul Hernandez Attending Physician: Rahul Hernandez Books Salesperson: Jose G Casper Left Ventricle The left [...] Raul Harmon on 03/20/2025 04:35 AM Rahul Herring al Result * GLUCOSE - POINT OF CARE (03/19/2025 8:22 AM CDT) Only the most recent of23 resultswithin the time period is included. Pathologist [facility] Glucose WB/POC 89 70 - 99 mg/dL 03/19/2025 8:27 AM T [facility] Specimen Type Arterial/C apillary 03/19/2025 8:27 AM [facility] Blood BLOOD SPECIMEN / Unknown 03/19/2025 8:22 AM CDT 03/19/2025 8:27 AM CDT Rahul Hernandez MD LAB - POINT OF CARE ORDERABLES Final Result [facility] [address] [place] [id number], [facility] [phone] * (ABNORMAL) HEPATIC FUNCTION PANEL (03/19/2025 4:28 AM CDT) Pathologist [facility] Protein Total 6.2 6.0 - 8.3 g/dL 025 7:[address] [facility] Albumin 3.1(L) 3.4 - 5.0 g/dL 03/19/2025 7:34 AM [facility] Bilirubin Total 0.4 0.2 - 1.2 mg/dL 02/19 7:34 AM [facility] Bilirubin Conjugated 0.2 0.1 - 0.5 mg/dL 03/19/2025 7:34 AM [facility] Bilirubin Unconjugated 0.2 Unconjugated Bilirubin is a calculated value: Reference ranges have not been established. mg/dL 03/19/2025 7:34 AM [facility] Alkaline Phosphatase 198(H) 40 - 150 U/L 03/19/2025 7:34 AM CDT [facility] ALT 166(H) 5 - 55 U/L 03/19/2025 7:34 AM CDT [facility] AST 173(H) 5 - 34 U/L 03/19/2025 7:34 AM CDT [facility] Albumin/Globulin Ratio 1.0(L) 1.1 - 2.3 03/19/2025 7:34 AM CDT [facility] Blood BLOOD SPECIMEN / Unknown Venipuncture / Unknown 03/19/2025 4:28 AM CDT 03/19/2025 4:38 AM CDT us Jennyfer Dallas DO LAB - CHEMISTRY ORDERABLES Final Result Performing Organization Address City/[facility]/ZIP Co de Phone Number [facility] [address] [place] [address], [place] [phone] * TRANSFUSE RED BLOOD CELL LEUKOREDUCED UNIT(S) (03/16/2025 10:21 PM CDT) Rahul Hernandez MD NURSING - BLOOD PRO D TRANSFUSION Final Result * TYPE + SCREEN PANEL (03/16/2025 5:39 PM CDT) Only the most recent of3 resultswithin the time period is included. Antibody Screen NEG 6:34 PM CDT [facility] ABO Rh O POS 03/16/2025 6:34 PM CDT [facility] Blood Bank BLOOD SPECIMEN / Unknown Venipuncture / Unknown 03/16/2025 5:39 PM CDT 03/16/2025 5:51 PM CDT Rahul Hernandez MD LAB - BLOOD BANK OR DERABLES Final Result [facility] [address] [place] [address], [place] [phone] * TRANSFUSE RED BLOOD CELL LEUKOREDUCED UNIT(S) (03/16/2025 11:36 AM CDT) us Nayanbita Hernandez INSURANCE MARKETING REP-METER ENGINEER NURSING - BLOOD PRO D TRANSFUSION Final Result * (ABNORMAL) SVO2 FOR RECALIBRATION (03/16/2025 3:11 AM CDT) Only the most recent of4 resultswithin the time period is included. SVO2 for Recalibration 48.1(L) 66.0 - 77.0 % 03/16/2025 3:20 AM CDT [facility] Blood BLOOD SPECIMEN / Unknown Venipuncture / Unknown 03/16/2025 3:11 AM CDT 03/16/2025 3:16 AM CDT Result [facility] Mariya Botello PA-C LAB - CHEMISTRY ORDERABLES F inal Result [facility] [address] [place] [phone], [facility] [phone] * HEMOGLOBIN A1C (03/16/2025 3:11 AM CDT) Hemoglobin A1c 5.3 <=5.6 % 03/16/2025 10:31 AM CDT [facility] Estimated Average Glucose 105 mg/dL 03/16/2025 10:31 AM T [facility] Comment: HbA1c Interpretation: Normal : < 5.7% Pre-diabetes: 5.7-6.4% Diabetes: Equal to or greater than 6.5% Test results diagnostic of diabetes should be repeated for confirmation. Treatment target values recommended by ADA and other clinical organizations should be used to evaluate metabolic control in patients. Reference: [place] [employer], Standards of Care in Diabetes [...] LAB - CHEMISTRY ORDERABLES F inal Result [address] [address], [facility] [phone] * (ABNORMAL) LACTIC ACID BLOOD (03/16/2025 3:11 AM CDT) Only the most recent of3 resultswithin the time period is included. [facility] Lactic Acid-Stat 3.7(HH) <=2.0 mmol/L 03/16/2025 4:02 AM T [facility] Blood BLOOD SPECIMEN / Unknown Venipuncture / Unknown 03/16/2025 3:11 AM CDT 03/16/2025 3:21 AM CDT Nayan Hernandez INSURANCE MARKETING REP-METER ENGINEER LAB - CHEMISTRY ORD ERABLES Final Result Performing Organization Address [facility]/ZIP Co de Phone Number [address] [address], [facility] [phone] * (ABNORMAL) BLOOD GASES ART + COOX PANEL (03/16/2025 3:11 AM CDT) Only the most recent of4 resultswithin the time period is included. [facility] pH Arterial 7.38 7.35 - 7.45 pH 03/16/2025 3:21 AM [facility] pO2 Arterial 104(H) 80 - 100 mmHg 03/16/2025 3:21 AM [facility] pCO2 Arterial 31(L) 35 - 45 mmHg 3:21 AM [facility] HCO3 Arterial 18.3(L) 20.0 - 30.0 mmol/L 03/16/2025 3:21 AM [facility] BE Arterial -6.1(L) -2.0 - 2.0 mmol/L 03/16/2025 3:21 AM [facility] Oxyhemoglobin Arterial 96.3 % 03/16/2025 3:21 AM [facility] Dexoyhemoglobin (HHB) % <1.0 % 03/16/2025 3:21 AM CDT [facility] Methemoglobin 1.3 0.0 - 2.0 % 03/16/2025 3:21 AM CDT [facility] Carboxyhemoglobin 1.8 0.0 - 2.0 % 2024 3:21 AM CDT [facility] O2 Content Arterial 10.6 Interpret within clinical context ml/dL 03/16/2025 3:21 AM T [facility] Hemoglobin by COOX 7.7(L) 12.0 - 17.6 g/dL 03/16/2025 3:21 AM T [facility] O2 Saturation Arterial 99 90 - 100 % 03/16/2025 3:21 AM T [facility] FI O2 Arterial 28.0 % 03/16/2025 3:21 AM T [facility] Blood, arterial ARTERIAL BLOOD SPECIMEN / Unknown Arterial Puncture / Unknown 03/16/2025 3:11 AM CDT 03/16/2025 3:16 AM CDT Narrative [facility] - 03/16/2025 3:21 AM CDT Carboxyhemoglobin Normal Concentration: Non-smokers: 0-2%; Smokers: 0-9%; Toxic: >20% us Nayan Hernandez INSURANCE MARKETING REP-METER ENGINEER LAB - BLOOD GASES O RDERABLES Final Result [facility] [address] [place] [phone], [facility] [phone] * TRANSFUSE RED BLOOD CELL LEUKOREDUCED UNIT(S) (03/15/2025 8:08 PM CDT) us Rahul Hernandez MD NURSING [...] LV and RV Function back to baseline. us Alexa Page MD GENERAL ANESTHESIA ORDERA BLES Final Result * FIBRINOGEN ACTIVITY (03/15/2025 5:32 PM CDT) Only the most recent of2 resultswithin the time period is included. Pathologist [facility] Fibrinogen Clauss 280 200 - 400 mg/dL 03/15/2025 6:03 PM CDT [facility] Blood BLOOD SPECIMEN / Unknown Venipuncture / Unknown 03/15/2025 5:32 PM CDT 03/15/2025 5:35 PM CDT Mariya Botello PA-C LAB - COAGULATION ORDERABLES Final Result Performing Organization Address [facility] Co de Phone Number [address] [address], [place] [phone] * PTT (03/15/2025 5:32 PM CDT) Only the most recent of2 resultswithin the time period is included. [facility] APTT 29.8 23.0 - 38.4 Seconds 03/15/2025 6:05 PM CDT [facility] Comment:Suggested therapeuti c range for full dose I.V. unfractionated heparin therapy for venous thromboembolism is 71 to 109 seconds. Blood BLOOD SPECIMEN / Unknown Venipuncture / Unknown 03/15/2025 5:32 PM CDT 03/15/2025 5:35 PM CDT Mariya GARRETT-C LAB - COAGULATION ORDERABLES Final Result Performing Organization Address [facility]/ZIP Co de Phone Number [address] [address], [place] [phone] * (ABNORMAL) DIFFERENTIAL MANUAL (03/15/2025 5:32 PM CDT) Neutrophil % 90(H) 41 - 74 % 03/15/2025 6:09 PM [facility] Lymphocyte % 6(L) 17 - 47 % 03/15/2025 6:09 PM [facility] Monocyte % 4 3 - 11 % 03/15/2025 6:09 PM [facility] Neutrophil Absolute 19.53(H) 1.60 - 7.50 x10E9/L 03/15/2025 6:09 PM [facility] Lymphocyte Absolute 1.30 1.00 - 4.40 x10E9/L 03/15/2025 6:09 PM [facility] Monocyte Absolute 0.87 0.15 - 1.00 x10E9/L 03/15/2025 6:09 PM [facility] RBC Morphology REVIEWED 03/15/2025 6:09 PM [facility] Large Platelets PRESENT(A) (none) 03/15/2025 6:09 PM [facility] Blood BLOOD SPECIMEN / Unknown Venipuncture / Unknown 03/15/2025 5:32 PM CDT 03/15/2025 5:38 PM CDT us Mariya Botello PA-C LAB - HEMATOLOGY ORDERABLES Final Result [facility] [address] [place] [address], [facility] [phone] * (ABNORMAL) CBC W AUTO DIFFERENTIAL (03/15/2025 5:32 PM CDT) Only the most recent of14 resultswithin the time period is included. WBC 21.7(H) 4.0 - 10.7 x10E9/L 03/15/2025 6:09 PM [facility] RBC Count 2.71(L) 4.30 - 5.80 x10E12/L 03/15/2025 6:09 PM [facility] Hemoglobin 7.9(L) 13.3 - 17.5 g/dL 03/15/2025 6:09 PM [facility] Hematocrit 24.0(L) 38.7 - 51.1 % 03/15/2025 6:09 PM CDT [facility] MCV 88.6 80.0 - 98.0 fL 03/15/2025 6:09 PM CDT [facility] MCH 29.2 26.7 - 33.6 pg 03/15/2025 6:09 PM CDT [facility] MCHC 32.9 31.7 - 36.3 g/dL 03/15/2025 6:09 PM T [facility] RDW-CV 15.9(H) 11.3 - 14.8 % 03/15/2025 6:09 PM T [facility] Platelet Count 251 150 - 420 x10E9/L 03/15/2025 6:09 PM T [facility] MPV 9.5 7.8 - 11.4 fL 03/15/2025 6:09 PM CDT [facility] Blood BLOOD SPECIMEN / Unknown Venipuncture / Unknown 03/15/2025 5:32 PM CDT 03/15/2025 5:38 PM CDT us Mariya Botello PA-C LAB - HEMATOLOGY ORDERABLES Final Result [facility] [address] [place] [address], [place] [phone] * CULTURE WOUND+GRAM STAIN (03/15/2025 5:06 PM CDT) Culture No growth LAVELLE 03/19/2025 1:10 PM CDT [facility] MICROBIOLOGY Gram Stain Light Polymorphonuclear cells 03/19/2025 1:10 PM CDT [facility] MICRO[facility]OLOGY Gram Stain No organisms seen 025 1:10 PM CDT [facility] MICRO[facility]OLOGY Microbiology TISSUE SPECIMEN / Unknown Collection / Unknown 03/15/2025 5:06 PM CDT 03/15/2025 5:06 PM CDT us Rahul Hernandez MD LAB - MICROBIOLOGY ORDERABLES Final Result [facility] MICROBIOLOGY [address] [place] [address], [facility] [phone] * CULTURE ANAEROBE (03/15/2025 5:06 PM CDT) Culture No anaerobic organisms isolated LAVELLE 03/20/2025 12:08 PM CDT [facility] MICROBIOLOGY Microbiology TISSUE SPECIMEN / Unknown Collection / Unknown 03/15/2025 5:06 PM CDT 03/15/2025 5:06 PM CDT Rahul Hernandez MD LAB - MICROBIOLOGY ORDERABLES Final Result [facility] MICROBIOLOGY [address] [place] [address], [facility] [phone] * TRANSFUSE FRESH FROZEN PLASMA UNIT(S) (03/15/2025 [...] were not saved. I personally performed. CPT 21864 with bilateral modifier. Alexa Page MD GENERAL [...] 7.35 - 7.45 pH 03/15/2025 4:[address] [facility] pO2 Arterial 384(H) 80 - 100 mmHg 03/15/2025 4:[address] [facility] pCO2 Arterial 41 35 - 45 mmHg 4:[address] [facility] HCO3 Arterial 22.1 20.0 - 30.0 mmol/L 03/15/2025 4:00 PM [facility] BE Arterial -3.4(L) -2.0 - 2.0 mmol/L 03/15/2025 4:00 PM [facility] Oxyhemoglobin Arterial 97.9 % 03/15/2025 4:00 PM [facility] Dexoyhemoglobin (HHB) % <1.0 % 03/15/2025 4:00 PM [facility] Methemoglobin 1.1 0.0 - 2.0 % 03/15/2025 4:00 PM [facility] Carboxyhemoglobin 1.0 0.0 - 2.0 % 2024 4:00 PM [facility] Comment:Carboxyhemoglobin No rmal Concentration: Non-smokers: 0-2%; Smokers: 0- 9%; Toxic: >20% O2 Content Arterial 13.2 Interpret within clinical context ml/dL 03/15/2025 4:00 PM [facility] Hemoglobin by COOX 8.8(L) 12.0 - 17.6 g/dL 03/15/2025 4:00 PM [facility] O2 Saturation Arterial 100 90 - 100 % 03/15/2025 4:00 PM [facility] Sodium Whole Blood 138 135 - 145 mmol/L 03/15/2025 4:00 PM [facility] Potassium Whole Blood 4.1 3.5 - 5.5 mmol/L 03/15/2025 4:00 PM [facility] Chloride WB 107 78 - 107 mmol/L 03/15/2025 4:00 PM [facility] Calcium Ionized 1.36 mmol/L 4:00 PM [facility] Ionized Calcium pH Adjusted 1.33 1.19 - 1.34 mmol/L 03/15/2025 4:00 PM [facility] Anion Gap (AG) Arterial 9 6 - 16 mmol/L 03/15/2025 4:00 PM [facility] Glucose WB 193(H) 70 - 99 mg/dL 03/15/2025 4:00 PM [facility] Lactic Acid Whole Blood 1.8 <=2.0 mmol/L 03/15/2025 4:00 PM [facility] Blood, arterial ARTERIAL BLOOD SPECIMEN / Unknown 03/15/2025 4:00 PM CDT 03/15/2025 4:00 PM CDT Cornelia Serra MD LAB - POINT OF CARE ORDERABLE S Final Result Performing Organization Address City/[facility]/ZIP Co de Phone Number [address] [address], [place] [phone] * TRANSFUSE RED BLOOD CELL LEUKOREDUCED UNIT(S) (03/15/2025 3:30 PM CDT) us Rahul Hernandez MD NURSING - BLOOD PRO D TRANSFUSION Final Result * ACT PLUS - POCT ([facility]) (03/15/2025 3:17 PM CDT) Only the most recent of8 resultswithin the time period is included. [facility] ACT PLUS 112 See result comments sec 03/15/2025 3:21 PM CDT [facility] Blood BLOOD SPECIMEN / Unknown 03/15/2025 3:17 PM CDT 03/15/2025 3:21 PM CDT Narrative [facility] - 03/15/2025 3:21 PM CDT ACT+ Therapeutic ranges for the ACT+ test in surgery areas are: Greater than (>) 360 seconds for surgical patients Greater than (>) 450 seconds for surgical bypass patients Cornelia Serra MD LAB - COAGULATION ORDERABLES Final Result Performing Organization Address City/[facility]/ZIP Co de Phone Number [address] [address], [place] [phone] * (ABNORMAL) TEG 6 GLOBAL HEMOSTASIS WITH HEPARIN NEUTRALIZATION (03/15/2025 3:10 PM CDT) Pathologist [facility] CITRATED KAOLIN R (CK-R REACTION TIME) 5.4 4.6 - 9.1 min 03/15/2025 4:11 PM CDT [facility] CITRATED KAOLIN MA (CK-MA MAX AMPLITUDE) 70.3(H) 52.0 - 69.0 mm 03/15/2025 4:11 PM CDT [facility] CITRATED KAOLIN HEPARINASE R ( CKH R REACTION TIME) 4.7 4.3 - 8.3 min 03/15/2025 4:11 PM CDT [facility] CITRATED KAOLIN HEPARINASE LY30 ([facility] LY30 LYSIS) 0.0 0.0 - 3.2 % 03/15/2025 4:11 PM CDT [facility] CITRATED RAPIDTEG HEPARINASE MA ( [facility] MA MAX AMPLITUDE) 69.5(H) 53.0 - 69.0 mm 03/15/2025 4:11 PM CDT [facility] CITRATED FUCTIONAL FIBRINOGEN HEPARINASE ( CFFH MAX AMPLITUDE) 39.1(H) 15.0 - 34.0 mm 03/15/2025 4:11 PM CDT [facility] Blood BLOOD SPECIMEN / Unknown 03/15/2025 3:10 PM CDT 03/15/2025 3:18 PM CDT Alexa Page MD LAB - HEMATOLOGY ORDERABL ES Final Result Performing Organization Address City/[facility]/ZIP Co de Phone Number [address] [address], [place] [phone] * PLATELET COUNT AUTO CITRATED BLOOD (03/15/2025 2:33 PM CDT) [facility] Platelet Count Citrated 215 150 - 420 x10E9/L 03/15/2025 3:49 PM CDT [facility] Blood BLOOD SPECIMEN / Unknown Venipuncture / Unknown 03/15/2025 2:33 PM CDT 03/15/2025 2:33 PM CDT Narrative [facility] - 03/15/2025 3:49 PM CDT This test was developed and its performance characteristics determined by the clinical laboratories of [facility] and [facility]. It has not been cleared and approved by the [place] Food and Drug Administration. Alexa Page MD LAB - HEMATOLOGY ORDERABL ES Final Result Performing Organization Address [facility]/ZIP Co de Phone Number [address] [address], [place] [phone] * PATHOLOGY TISSUE (03/15/2025 1:53 PM CDT) Case Report Surgical Pathology Report Case: [id number] Authorizing Provider: Rahul Hernandez Collected: 03/15/2025 01:53 PM MD Tyrell Ordering Location: [facility] OP Received: 03/16/2025 05:08 AM Pathologist: Ericka Robert MD Specimen: Mitral Valve, Anterior leaflet of mitral valve 03/17/2025 3:58 PM CDT [facility] Final Diagnosis Heart, mitral valve, replacement (A): - Endocarditis 03/17/2025 3:58 PM CDT [facility] at 1558 CDT Microscopic Description [...] are no vegetations or calcific nodules present. Dial Printer sections are submitted in a single cassette labeled A1. RB 03/17/2025 3:58 PM CDT [facility] Pathologist Location at [facility] 03/17/2025 3:58 PM CDT [facility] Disclaimer The performance characteristics of all immunohistochemical and indirect immunofluorescence stains (if any) cited in this report were determined by the Histopathology Laboratory of [facility]. Some of these tests [...] attending (teaching) pathologist. 03/17/2025 3:58 PM CDT [facility] Embedded Images 03/17/2025 3:58 PM CDT [facility] Resection without Tumor ENTIRE MITRAL VALVE / Unknown 03/15/2025 1:53 PM CDT 03/16/2025 5:08 AM CDT Comment:Pre-op diagnosis: mitral valve regurgitation us Rahul Hernandez MD LAB - PATHOLOGY/CYT OLOGY ORDERABLES Final Result [facility] [address] [place] [address], [facility] [phone] * PA CATH PERFORMABLE, INTRODUCER (03/15/2025 12:19 [...] CENTRAL LINE PERFORMABLE (03/15/2025 12:19 PM CDT) Ricki Garcia DO - 03/15/2025 12:19 PM CDT Ricki [...] anesthesia Staff Section Anesthesia Provider: Ricki Shields DO, Performed the procedure Alexa Page MD GENERAL ANESTHESIA ORDERA BLES Final Result * ETT LINE PERFORMABLE (03/15/2025 12:18 PM CDT) Ricki Garcia DO - 03/15/2025 12:18 PM CDT Ricki Shields DO 03/15/2025 12:18 PM Endotracheal Tube Placement: Patient Location: OR. Intubation Event Date/Time: 03/15/2025 11:38 AM Procedure: intubation ([id number]) Procedure Section: Sedation: under general anesthesia. Indications [...] Time: 03/15/2025 11:32 AM Procedure: Arterial Line ([id number]) Procedure Section Indications: continuous blood pressure monitoring. Consent: informed consent was obtained for the procedure, including sedation. Skin Prep: Chloraprep. Orientation: Left. Site: radial. Site Identification: ultrasound guided with sterile sleeve and gel. Gauge: 20. Seldinger Technique Used? Yes Number of Attempts: 1. Line Secured with: suture. Procedure Tolerance: performed while patient under general anesthesia. Events: none. Staff Section Anesthesia Provider: Ricki Shields DO, Performed the procedure Alexa Page MD GENERAL ANESTHESIA ORDERA BLES Final Result * BLOOD GAS KATHY+LYTES+METAB+COOX POC NOTIF (03/15/2025 8:06 AM CDT) Comment Notification Label Only - See Separate Report 03/15/2025 9:31 AM CDT [facility] Other MISCELLANEOUS SAMPLES / Unknown 03/15/2025 8:06 AM CDT 03/15/2025 8:07 AM CDT Rahul Hernandez MD LAB - BLOOD GASES O RDERABLES Final Result [facility] [address] [place] [address], [place] [phone] * BLOOD GAS ART+LYTES+METAB+COOX POC NOTIF (03/15/2025 8:06 AM CDT) Comment Notification Label Only - See Separate Report 03/15/2025 9:31 AM CDT [facility] Other MISCELLANEOUS SAMPLES / Unknown 03/15/2025 8:06 AM CDT 03/15/2025 8:07 AM CDT us Rahul Hernandez MD LAB - BLOOD GASES O RDERABLES Final Result [facility] [address] [place] [address], [facility] [phone] * ECHO ANES SINTIA INTRAOP (03/15/2025 6:23 [...] 10:01 AM Patient Status: I/P [facility] Type: ECHO ANES SINTIA INTRAOP [...] 10:01 AM Patient Status: I/P Study Site: [facility] Primary Location: [facility] EStudy Info Exam Type: ECHO ANES SINTIA [...] UNIT(S) (03/14/2025 5:37 PM CDT) Ofelia Mckee INSURANCE MARKETING REP-METER ENGINEER NURSING - BLOOD PROD TRANSFUSION Final Result * PREPARE (CROSSMATCH) RBC UNIT(S), 1 Units (03/14/2025 5:21 AM CDT) Only the most recent of6 resultswithin the time period is included. Unit Description N/A [facility] Blood Bank BLOOD SPECIMEN / Unknown 03/14/2025 5:21 AM CDT 03/14/2025 5:53 AM CDT Rahul Hernandez MD LAB - BLOOD BANK OR DERABLES Final Result [facility] [address] [place] [address], [facility] [phone] * PREPARE PLATELET PHERESIS UNIT(S), 2 Units (03/14/2025 5:21 AM CDT) Only the most recent of2 resultswithin the time period is included. Unit Description LR PLT Phere B7 [facility] Unit ABO O [facility] Unit Rh POS [facility] Product Number P27 [facility] B LO[facility] Unit Donor # [id number] [facility] Unit Status transfused [facility] B[facility] OD [facility] Product Code [id number] [facility] Blood Type Barcode 5100 [facility] Expiration Date [id number] [facility] Unit Description LR PLT Phere B7 [facility] Unit ABO O [facility] Unit Rh POS [facility] Product Number P27 [facility] B LOOD [facility] Unit Donor # [id number] [facility] Unit Status released [facility] BLOO D BANK LAB Product Code [id number] [facility] BLO OD [facility]ANK [facility] Blood Type Barcode 5100 [facility] Expiration Date [id number] [facility]LOOD BANK LAB Blood Bank BLOOD SPECIMEN / Unknown 03/14/2025 5:21 AM CDT 03/14/2025 5:53 AM CDT us Rahul Hernandez MD LAB - BLOOD BANK OR DERABLES Final Result [facility]LOOD [facility] [address] [place] [address], [facility] [phone] * [facility] UNIT(S), 4 Units (03/14/2025 5:21 AM CDT) Only the most recent of2 resultswithin the time period is included. Unit Description Liquid Plasma [facility] BLOOD BANK LAB Unit ABO A [facility] BLOOD [facility] Unit POS [facility] BLOOD [facility] Product Number [id number] [facility] B LOOD BANK LAB Unit Donor # [id number] [facility] B[facility]OD [facility] Unit Status released [facility] BLOO D [facility]ANK [facility] Product Code [id number] [facility] BLO OD [facility]ANK LAB Blood Type Barcode 6200 [facility]OD [facility] Expiration Date [id number] S BLOOD BANK [facility] Unit Description Liquid Plasma [facility] BLOOD [facility] Unit ABO A [facility] BLO[facility] Unit Rh POS [facility] BLOOD [facility] Product Number [id number] [facility] Unit Donor # [id number] [facility] Unit Status transfused [facility] Product Code [id number] [facility] Blood Type Barcode 6200 [facility] Expiration Date [id number] S BLOOD BANK LAB Blood Bank BLOOD SPECIMEN / Unknown 03/14/2025 5:21 AM CDT 03/14/2025 5:53 AM CDT Rahul Hernandez MD LAB - BLOOD BANK OR DERABLES Final Result [facility] [address] [place] [address], [facility] [phone] * (ABNORMAL) URINALYSIS REFLEX MICROSCOPIC REFLEX CULTURE (03/13/2025 9:10 AM CDT) Only the most recent of2 resultswithin the time period is included. Color UA Colorless(A) Yellow, Straw 03/13/2025 9:50 AM [facility] Clarity UA Clear Clear 03/13/2025 9:50 AM [facility] Glucose UA 1+(A) Normal 03/13/2025 9:50 AM [facility] Bilirubin UA Negative Negative 03/13/2025 9:50 AM [facility] Ketone UA Negative Negative 03/13/2025 9:50 AM [facility] Specific Maxwell UA 1.012 1.005 - 1.030 03/13/2025 9:50 AM [facility] Blood UA Negative Negative 03/13/2025 9:50 AM [facility] pH UA 6.5 5.0 - 8.0 03/13/2025 9:50 AM [facility] Protein UA 1+(A) Negative 03/13/2025 9:50 AM [facility] Urobilinogen UA Normal Normal mg/dL 03/13/2025 9:50 AM [facility] Nitrite UA Negative Negative 03/13/2025 9:50 AM [facility] Leukocyte Esterase UA Negative Negative 03/13/2025 9:50 AM [facility] RBC UA 0-2 0 - 5 # /hpf 03/13/2025 9:50 AM [facility] WBC UA 0-5 0 - 5 # /hpf 03/13/2025 9:50 AM [facility] Bacteria UA None Seen None Seen 03/13/2025 9:50 AM [facility] Squamous Epithelial Cells None Seen 0 - 5 /hpf 03/13/2025 9:50 AM [facility] Mucus UA 1+ /LPF 03/13/2025 9:50 AM [facility] Reflex Status Culture not indicated 03/13/2025 9:50 AM CDT [facility] Urine URINE SPECIMEN OBTAINED BY CLEAN CATCH PROCEDURE / Unknown Collection / Unknown 03/13/2025 9:10 AM CDT 03/13/2025 9:19 AM CDT Narrative [facility] - 03/13/2025 9:50 AM CDT Ofelia Mckee INSURANCE MARKETING REP-METER ENGINEER LAB - URINALYSIS ORDE RABLES Final Result [facility] [address] [place] [address], [facility] [phone] * BLOOD TYPE VERIFICATION (03/10/2025 10:02 PM CDT) ABO Rh O POS 03/10/2025 10:56 PM CDT [facility] Blood Bank BLOOD SPECIMEN / Unknown Lab Venipuncture / Unknown 03/10/2025 10:02 PM CDT 03/10/2025 10:11 PM CDT Yousuf Chaudhari PA-C LAB - BLOOD BANK ORDERABLES Final Result Performing Organization Address [facility]/ZIP Co de Phone Number [facility] [address] [place] [address], [place] [phone] * CT Chest Wo Contrast (03/10/2025 2:43 [...] indicated. > Dictated by Nick Jay MD, (vice president investor relations). > Dictated by Compensation Coordinator IJen MD have personally reviewed and interpreted this examination/study. 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 > Dictated by Nick Jay MD, (vice president investor relations). > Dictated by Compensation Coordinator IJen MD have personally reviewed and interpreted this examination/study. > Interpreting Provider: Jen Thomson MD on 03/10/2025 5:00 PM us Yousuf Chaudhari PA-C CT ORDERABLES Final Resul t * CCL LEFT HEART CATH (03/10/2025 12:49 PM CDT) Anatomical Region Laterality Modality X-Ray Angiograph y Narrative 03/10/2025 5:01 PM CDT 40% narrowing in mid LAD. Overall, nonobstructive CAD. Left dominant circulation. Right radial artery access, hemostasis by TR band. Reason for Procedure 65 year old male PMHx HTN, COPD, CKD, GERD presented to [facility] as OSH transfer for CTS evaluation [...] Event Date/Time: 03/09/2025 6:17 PM Procedure: intubation (43179) Procedure Section: Sedation: under general anesthesia. Indications [...] clinically indicated. > Dictated by Eunice Ramirez (vice president investor relations). > Dictated by Eunice Ramirez 03/09/2025 11:07 AM > Dictated by Compensation Coordinator IJen MD have personally reviewed and interpreted [...] bladder with DICOM image capture performed by remote sensing technologist. FINDINGS: Right kidney: 10.9 x 5.6 [...] disease) stage 5, GFR less than15 ml/min ([facility]) Additional History: COMPARISON: None. TECHNIQUE: Real-time ultrasound of the kidneys and bladder with DICOMimage capture performed by remote sensing technologist. FINDINGS: Right kidney: 10.9 x 5.6 [...] clinically indicated. > Dictated by Eunice Ramirez (vice president investor relations). > Dictated by Eunice Ramirez 03/09/2025 11:07 AM > Dictated by Compensation Coordinator IJen MD have personally reviewed and interpreted this examination/study. > Interpreting Provider: Jen Thomson MD on 03/09/2025 1:40 PM Adalberto Arroyo MD ORDERABLES Final Result * VITAMIN D 25-HYDROXY (03/08/2025 5:06 AM CDT) Vitamin D, 25 Hydroxy 39.0 30.0 - 80.0 ng/mL 03/08/2025 6:22 AM CDT [facility] Comment: The recommendations for 25-Hydroxy Vitamin [...] ORDERABLES F inal Result Performing Organization Address [facility]/ZIP Co de Phone Number [address] [address], [place] [phone] * (ABNORMAL) PTH INTACT W/O CALCIUM (03/08/2025 5:05 AM CDT) PTH Intact 80.3(H) 8.0 - 77.0 pg/mL 03/08/2025 6:10 AM CDT [facility] Blood BLOOD SPECIMEN / Unknown Lab Venipuncture / Unknown 03/08/2025 5:05 AM CDT 03/08/2025 5:34 AM CDT Adalberto Arroyo MD LAB - CHEMISTRY ORDERABLES F inal Result Performing Organization Address [facility] Co de Phone Number [address] [address], [place] [phone] * (ABNORMAL) IRON + TRANSFERRIN PANEL (03/08/2025 5:05 AM CDT) Iron 38(L) 50 - 175 ug/dL 03/08/2025 6:09 AM CDT [facility] Transferrin 201 174 - 382 mg/dL 03/08/2025 6:09 AM CDT [facility] Transferrin Saturation % 15(L) 16 - 50 % 03/08/2025 6:09 AM CDT [facility] TIBC Calculated 251 240 - 450 ug/dL 03/08/2025 6:09 AM CDT [facility] Blood BLOOD SPECIMEN / Unknown Lab Venipuncture / Unknown 03/08/2025 5:05 AM CDT 03/08/2025 5:24 AM CDT Adalberto Arroyo MD LAB - CHEMISTRY ORDERABLES F inal Result Performing Organization Address City/[facility]/ZIP Co de Phone Number [address] [address], [facility] [phone] * (ABNORMAL) FERRITIN (03/08/2025 5:05 AM CDT) Ferritin 447(H) 22 - 275 ng/mL 03/08/2025 6:13 AM CDT [facility] Blood BLOOD SPECIMEN / Unknown Lab Venipuncture / Unknown 03/08/2025 5:05 AM CDT 03/08/2025 5:24 AM CDT Adalberto Arroyo MD LAB - CHEMISTRY ORDERABLES F inal Result Performing Organization Address [facility]/ZIP Co de Phone Number [address] [address], [facility] [phone] * VAS Carotid Duplex Bilateral (03/07/2025 4:07 PM CDT) Anatomical Region Laterality Modality Neck Intravascular Ul trasound 03/07/2025 2:33 PM CDT Narrative Procedure Note Osvaldo Doyle MD - 03/08/2025 Kota Estrella INSURANCE MARKETING REP-METER ENGINEER VASCULAR LAB ORDERABLE S Edited Result - [...] 10:44 AM Patient Status: I/P Study Site: [facility] Primary Location: [facility] EStudy Info Exam Type: ECHO SINTIA COMPLETE Indications I34.81 - Calcification of mitral valve Contrast/Agitated Saline Contrast / Saline: Agitated Saline Amount: 10.00 ml Reaction to Contrast: no * A 3D, 2D, color Doppler and spectral Doppler transesophageal echocardiogram was performed with a Bubble Study. Staff Referring Physician: Pramod Torres Ordering Provider: Pramod Torres Attending Physician: Pramod Torres Fellow: Osvaldo Sepulveda Books Salesperson: Iris Greco Performing Physician: Tahmina Bui Complications [...] anterior mitral valve leaflet tip (around the A2/L2ypezlpa tip). * There is moderate to severe [...] 10:44 AM Patient Status: I/P Study Site: [facility] Primary Location: [facility] EStudy Info Exam Type: ECHO SINTIA COMPLETE Indications I34.81 - Calcification of mitral valve Contrast/Agitated Saline Contrast / Saline: Agitated Saline Amount: 10.00 ml Reaction to Contrast: no * A 3D, 2D, color Doppler and spectral Doppler transesophagealechocardiogram was performed with a Bubble Study. Staff Referring Physician: Pramod Torres Ordering Provider: Pramod Torres Attending Physician: Pramod Torres Fellow: Osvaldo Sepulveda Books Salesperson: Iris Greco Performing Physician: Tahmina Bui Complications [...] anterior mitral valve leaflet tip (around the A2/Y0rxycltz tip). There is moderate to severe mitral [...] Osvaldo Sepulveda on 2025 04:40 PM Pramod Torres DO ECHO CUPID Final Result * CULTURE BLOOD (03/04/2025 11:09 AM CDT) Only the most recent of4 resultswithin the time period is included. Culture No growth day 5 LAVELLE 03/09/2025 1:30 PM CDT [facility]CRO[facility] Blood PERIPHERAL BLOOD / Unknown Lab Venipuncture / Unknown 03/04/2025 11:09 AM CDT 03/04/2025 11:25 AM CDT Pramod Torres DO LAB - MICROBIOLOGY ORDERABLES Final Result [facility]CRO[facility] [address] [place], [place] [address] [phone] * HEPATITIS C AB SCREEN RFLX NAAT QUANT (03/04/2025 6:36 AM CDT) Pathologist [facility] Hepatitis C Antibody Non-react francisco Non-reac tive 03/04/2025 8:16 AM CDT [facility] Comment:Hepatitis C Antibody screen indicates no [...] ORDERABLES Fin al Result Performing Organization Address City/[facility]/ZIP Co de Phone Number [address] [address], [facility] [phone] * HIV-1 HIV-2 ANTIBODY + HIV P24 AG PANEL (03/04/2025 6:36 AM CDT) Pathologist [facility] HIV Antigen/Antibod y 1 & 2 Non-reacti ve Non-react francisco 03/04/2025 9:14 AM CDT [facility] Comment:No Laboratory eviden ce of HIV infection. Blood BLOOD SPECIMEN / Unknown Lab Venipuncture / Unknown 03/04/2025 6:36 AM CDT 03/04/2025 6:55 AM CDT Pramod Torres DO LAB - CHEMISTRY ORDERABLES Fin al Result Performing Organization Address City/[facility]/ZIP Co de Phone Number [address] [address], [facility] [phone] * HEPATITIS B PANEL (03/04/2025 6:36 AM CDT) Pathologist [facility] Hepatitis B Surface Antibody Quantitative <3.0 <8.0 mIU/mL 03/04/2025 8:41 AM CDT [facility] Comment: Hepatitis B Surface Antibody Numeric Result Interpretation: Nonreactive: <8.0 mIU/mL Indeterminate: 8.0 - 12.0 mIU/mL Reactive: >12.0 mIU/mL Hepatitis B Virus Surface Antibody Non-react francisco Non-react francisco 03/04/2025 8:41 AM CDT [facility] Comment: < 8 mIU/mL Hepatitis B surface Antibody (HBsAb). Nonreactive for HBsAb - individual is considered not immune to Hepatitis B Virus infection. Hepatitis B Virus Surface Antigen Non-react francisco Non-react francisco 03/04/2025 8:41 AM CDT [facility] Hepatitis B Core Virus Antibody IgM Non-react francisco Non-react francisco 03/04/2025 8:41 AM CDT [facility] Blood BLOOD SPECIMEN / Unknown Lab Venipuncture / Unknown 03/04/2025 6:36 AM CDT 03/04/2025 6:55 AM CDT Pramod Torres DO LAB - CHEMISTRY ORDERABLES Fin al Result [facility] [address] [place] [address], [facility] [phone] * XR Panorex (03/03/2025 4:22 PM CDT) Anatomical Region Laterality Modality Head Radiographic Melba ging 03/04/2025 8:30 AM CDT Impressions 03/04/2025 9:17 AM CDT IMPRESSION: Lucencies within the right mandibular presumed location of absent of the molar and premolar teeth. Recommend dental consultation. The report was drafted by Ofe Aponte MD (residential instructor) 03/04/2025 8:30 AM. > Dictated by Compensation Coordinator I, Jamie Barriga MD have personally reviewed and interpreted this examination/study. 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 > Dictated by Compensation Coordinator I, Jamie Barriga MD have personally reviewed and interpreted this examination/study. > Interpreting Provider: Jamie Barriga MD on 03/04/2025 9:17 AM Pramod Torres DO DIAGNOSTIC IMAGING ORDERABLES Final Result * URINE DRUG SCREEN IMMUNOASSAY (03/03/2025 12:34 PM CDT) Amphetamines Screen Urine Negative Negative: < 1000 ng/mL 03/03/2025 1:24 PM CDT [facility] Barbiturates Screen Urine Negative Negative: < 200 ng/mL 03/03/2025 1:24 PM T [facility] Benzodiazepine Screen Urine Negative Negative: < 200 ng/mL 03/03/2025 1:24 PM T [facility] Opiates Urine Negative Negative: < 300 ng/mL 03/03/2025 1:24 PM CDT [facility] Cocaine Metabolites Urine Negative Negative: < 300 ng/mL 03/03/2025 1:24 PM CDT [facility] Phencyclidine Screen Urine Negative Negative: < 25 ng/ml 03/03/2025 1:24 PM CDT [facility] Cannabinoids Screen Urine Negative Negative: <50 ng/mL 03/03/2025 1:24 PM CDT [facility] Methadone Screen Urine Negative Negative: < 300 ng/mL 03/03/2025 1:24 PM T [facility] Fentanyl Screen Urine Negative Negative: <1.5 ng/mL 03/03/2025 1:24 PM CDT [facility] Urine URINE / Unknown Collection / Unknown 03/03/2025 12:34 PM CDT 03/03/2025 12:39 PM CDT [facility] - 03/03/2025 1:24 PM CDT The Urine Toxicology Screening Panel does not screen for Propoxyphene, Meprobamate, Carisoprodol, Trazodone, mhnh-xwd-cnnafxq medications and/or volatiles (Acetone, Isopropanol, Methanol or Ethylene Glycol). Ethanol, Salicylate, Acetaminophen, Tricyclic Antidepressants and several therapeutic drugs may be individually assayed in serum or plasma specimen. Toxicology testing by the [facility] is an aid to medical diagnosis and treatment of patients. No documented chain of custody was maintained. Results are intended to be used for clinical purposes only. Pramod Torres DO LAB - URINE CHEMISTRY ORDERABL ES Final Result [id number] [place] [address], [facility] [phone] * VANCOMYCIN LEVEL RANDOM (03/03/2025 5:00 AM CDT) Only the most recent of3 resultswithin the time period is included. Vancomycin Random 17.1 Therapeutic Ranges not established for random specimens ug/mL 03/03/2025 6:06 AM CDT [facility] Blood BLOOD SPECIMEN / Unknown Lab Venipuncture / Unknown 03/03/2025 5:00 AM CDT 03/03/2025 5:31 AM CDT Narrative [facility] - 03/03/2025 6:06 AM CDT See institution protocol. us Pramod Torres DO LAB - CHEMISTRY ORDERABLES Fin al Result Performing Organization Address City/[facility]/ZIP Co de Phone Number [address] [address], [place] [phone] * MRSA PCR (03/02/2025 8:47 AM CDT) [facility] MRSA DNA by PCR Not detected Not detected 03/02/2025 3:41 PM CDT [facility]CRO[facility] Microbiology SPECIMEN FROM NASAL FOSSAE / Unknown Collection / Unknown 03/02/2025 8:47 AM CDT 03/02/2025 8:52 AM CDT Narrative [facility] - 03/02/2025 3:41 PM CDT Methicillin-resistant Staphylococcus aureus (MRSA) DNA is not detected (presumed not colonized with MRSA). us Shira Harris MD LAB - MICROBIOLOGY ORDERABLES Fi nal Result Performing Organization Address [facility] Co de Phone Number [facility] [address] [place] [address], [facility] [phone] * MONONUCLEOSIS SCREEN (03/02/2025 5:34 AM CDT) [facility] Mononucleosis Qualitative Negative Negative 03/02/2025 6:42 AM CDT [facility] Blood BLOOD SPECIMEN / Unknown Lab Venipuncture / Unknown 03/02/2025 5:34 AM CDT 03/02/2025 6:11 AM CDT us Shira Harris MD LAB - CHEMISTRY ORDERABLES Final Result Performing Organization Address [facility]/ZIP Co de Phone Number [address] [address], [place] [phone] * (ABNORMAL) BLOOD CULTURE ID PANEL (03/02/2025 5:33 AM CDT) [facility] Enterococcus faecalis Detected(A) Not detected 03/03/2025 10:33 AM CDT [facility] Van A/B Vancomycin Resistance Not detected Not detected 03/03/2025 10:33 AM T [facility] Comment:Results indicate van comycin-susceptible Enterococcus faecalis. Louisa/B not detected. Blood PERIPHERAL BLOOD / Unknown Lab Venipuncture / Unknown 03/02/2025 5:33 AM CDT 03/02/2025 6:06 AM CDT Narrative [facility] - 03/03/2025 10:33 AM CDT Blood Culture ID Panel performed by [employer] multiplex PCR. The Test panel includes: Gram [...] and MREJ (methicillin-resistance - MRSA), NDM ([place] pyeglkr-agsd-eblynhxhy), OXA-48-like (oxacillinase beta-lactamase),Louisa/B (vancomycin-resistance), VIM (Sangeeta Intergrom-Encoded Metallo beta-lactamase). Shira Harris MD LAB - MICROBIOLOGY ORDERABLES Fi nal Result [facility] [address] [place] [address], [facility] [phone] from Last 3 Months Insurance [employer] Advance Directives * Full Code (Latest Code Status on File) Date Activated Date Inactivated Comments 03/01/2025 10:01 PM 03/23/2025 4:41 PM Care Teams [employer] Ins[employer] Relationship Specialty Start Date End Date Carlos Ventura MD [address] [place] [address] PCP - General Internal Medicine 03/17/25
== END 2025-03-29 14:41 | disposition home or self-care (01) ==
LOC: CHSLAB 14:44
DX: Z95.2 Presence of prosthetic heart valve (principal); Z79.02 Long term (current) use of antithrombotics/antiplatelets
CPT/HCPCS: 36415; 80053; 85025; 85055; 85610

== ENCOUNTER 2025-04-03 10:57 | Outpatient (NON) | payer BC, SELFPAY ==
[2025-04-03 11:16] LABS: INR 1.6; Prothrombin Time 16.7 Seconds (9.50-12.1)
--- OUTSIDE RECORDS SUMMARY | 2025-04-03 13:02 | XMS_ITS | Clinical Summary ---
Author Organization [employer] [facility] Address [address] [place] [address] Care Team Providers Care Human Services Case Manager Name Role Phone Carlos Ventura MD Primary Care Provider [phone] Source Comments [facility],non-owned Affiliates and Associated Physician Practices is amultiple site organization consisting of ambulatory clinics and hospital sitesin [place], [place], [place]. This disclosure is being madepursuant to the Care Everywhere program and may not contain all information available regarding this patient. Last updated 18.Blinkbuggy Allergies No known active allergies Medications * [...] w/ diff, CMP, please fax results to [facility] Infectious disease clinic, fax [phone], Attn Yesica Cabello PA-C 025 2024 Active ampicillin 2 g in NaCl IV 0.9 % 100 mL - IV ampicillin 2g every 8 hours (renally dosed), consider continuous infusion outpatient to help with easier administration. - Duration of therapy 6 weeks from date of MVR, 03/15/2025 - EOT 04/26/2025. - Weekly labs: CBC w/ diff, CMP, please fax results to [facility] Infectious disease clinic, fax [phone], Attn Yesica Cabello PA-C 2024 Active aspirin [...] results. Starting 04/05/25, the Anticoagulation Clinic at [facility] will be dosing your warfarin [...] Switch antibiotics to ampicillin and ceftriaxone - ISNTIA ordered to evaluate for infectious source on [...] severe mitral regurgitation. Per SINTIA, [facility] recommends multi team consult for approved [...] severe mitral regurgitation. Per SINTIA, [facility] recommends multi team consult for approved [...] Only [facility] - Cardiothoracic Surgery [address] [place] [phone] Alma Rosa Rodriguez RN 03/24/2025 Telephone [facility] - Infectious Disease [address] [place] [phone] Yesica Cabello PA-C Appointment 03/15/2025 11:24 AM CDT Anesthesia Event [facility]DA OP [address] [place] [phone] SreeniAlexa dukes MD Polhemus, Kyle, MD 03/15/2025 8:55 AM CDT - 03/15/2025 2:40 PM CDT Surgery [facility] OP [address] [place] [address] Rahul Hernandez MD Mitral valve replacement 03/15/2025 6:25 AM CDT Ancillary Procedure [facility] OP [address] [place] [address] Cornelia Serra MD Heis, Farah, MD 03/10/2025 8:54 AM CDT - 03/10/2025 10:10 AM CDT Surgery [facility] - Cardiac Mental Health Advanced Practice Nurse [address] [place] [phone] Selene Duran MD Left Heart Cath 03/09/2025 6:03 PM CDT Anesthesia Event [facility] [place] [place] [address] [place] [phone] Prakash De La Torre, Carlitos Flores, DIANDRA 03/09/2025 5:45 PM CDT - 03/09/2025 7:28 PM CDT Surgery [facility] [address] [place] [phone] Sedic, Vedrana, DMD EXTRACTION DENTAL (MULTIPLE) 2025 9:22 AM CDT - 2025 11:59 PM CDT Hospital Encounter [facility] - Cardiac Mental Health Advanced Practice Nurse [address] [place] [phone] Pramod Torres DO Heis, Farah, MD Discharge Disposition: Home or Self Care 03/01/2025 9:44 PM CDT - 03/23/2025 3:36 PM CDT Hospital Encounter [facility] [address] ACUTE [address] [place] [phone] Shira Harris MD Mayer, Joshua C, DO Wheeler, Joseph R, MD Eshetu, Nebiyu A, MD Lawrance, Christopher Paul, MD Cardiothoracic Surgery Discharge Disposition: [place] Health [place] [facility] 03/01/2025 Travel 03/01/2025 Telephone [facility] PHYS INTERNAL MED [address] [place] [address] Shira Harris MD General (OSH transfer) 03/01/2025 Telephone [facility] PHYS INTERNAL MED [address] [place] [address] Freddy Velazquez MD Hospital Admission [...] and heating? Not hard at all 03/01/2025 [facility] [place] of Occupat ional Health - Occupational Stress [...] any time in the past 12 m [facility], were you homeless or living in a jail (including now)? 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 Gender Identity Not on file Sexual Orientation [...] Visit [facility] - Cardiothoracic Surgery [address] [place] [address], [facility] [place] [address] Rahul Hernandez MD [address] [place] [address] [address] [place] [address] 04/20/2025 8:30 AM CDT Office Visit [facility] - Infectious Disease [address] [place] [address], [facility] [place] [phone] Yesica Cabello, PA-C [address] [place] [address] 05/01/2025 9:00 AM CDT Appointment [facility]R [address] [place] [phone] Garcia Gil MD [address] [place] [address] Health Maintenance Due Date Last Done Comments [...] this topic Medical Devices Implanted Type Area Ripsaw Operator Device Identifier Shelf Expiration Date Model / Serial / Lot Ndl Sut 3 Blnt Cut Cbl Strl Spnl Ss Implanted:Qty: 1 on 03/15/2025 by Rahul Hernandez MD at [facility] N/A: Sternum [employer] 08/17/2029 [id number] / / [id number] Plate 6 Hl O Cncv Bone Lf Nonster Implanted:Qty: 1 on 03/15/2025 by Rahul Hernandez MD at [facility] N/A: Sternum [employer] 115.604.06 / / Screw 14mm Lck Nonster Bone Lf Implanted:Qty: 6 on 03/15/2025 by Rahul Hernandez MD at [facility] N/A: Sternum [employer] 100.035.14 / / Screw 16mm Lck Nonster Bone Lf Implanted:Qty: 6 on 03/15/2025 by Rahul Hernandez MD at [facility] N/A: Sternum [employer] 100.035.16 / / Screw 18mm Lck Nonster Bone Lf Implanted:Qty: 6 on 03/15/2025 by Rahul Hernandez MD at [facility] N/A: Sternum [employer] 100.035.18 / / Valve Mtrl 31mm Resilia - [id number] Implanted:Qty: 1 on 03/15/2025 by Rahul Hernandez MD at [facility] N/A: Mitral Valve [employer] 10/12/2029 [id number] / [id number] / Ndl Sut 3 Blnt Cut Cbl Strl Spnl Ss Implanted:Qty: 1 on 03/15/2025 by Rahul Hernandez MD at [facility] N/A: Sternum [employer] [id number] / / Plate Bone H 6 Hl Nonster Lf Implanted:Qty: 2 on 03/15/2025 by Rahul Hernandez MD at [facility] N/A: Sternum [employer] 115.102.06 / / Explanted Type Area Ripsaw Operator Device Identifier Shelf Expiration Date Model / Serial / Lot Plate Bone H 6 Hl Nonster Lf Explanted:Qty: 2 on 03/15/2025 by Rahul Hernandez MD at [facility] N/A: Mitral Valve [employer] 115.102.06 / / Description:no cost implant per rep; doc pay once program Plate 6 Hl O Cncv Bone Lf Nonster Explanted:Qty: 1 on 03/15/2025 by Rahul Hernandez MD at [facility] N/A: Mitral Valve [employer] 115.604.06 / / Description:no cost implant per rep; doc pay once program Screw 14mm Lck Nonster Bone Lf Explanted:Qty: 6 on 03/15/2025 by Rahul Hernandez MD at [facility] N/A: Mitral Valve [employer] 100.035.14 / / Description:no cost implant per rep; doc pay once program Screw 16mm Lck Nonster Bone Lf Explanted:Qty: 6 on 03/15/2025 by Rahul Hernandez MD at [facility] N/A: Mitral Valve [employer] 100.035.16 / / Description:no cost implant per rep; doc pay once program Screw 18mm Lck Nonster Bone Lf Explanted:Qty: 6 on 03/15/2025 by Rahul Hernandez MD at [facility] N/A: Mitral Valve [employer] [...] stage 5, GFR less than 15 ml/min ([facility]) XR CHEST 1VW PORTABLE Routine 03/22/2025 4:27 [...] 3:30 PM CDT ACT PLUS - POCT ([facility]) Routine 03/15/2025 3:17 PM CDT BLOOD GAS+COOX+LYTES+METAB [...] 2:42 PM CDT ACT PLUS - POCT ([facility]) Routine 03/15/2025 2:39 PM CDT FIBRINOGEN ACTIVITY STAT 03/15/2025 2 :34 PM CDT Mitral valve vegetation (HCC) PLATELET COUNT AUTO CITRATED BLOOD STAT 03/15/2025 2:33 PM CDT Mitral valve vegetation (HCC) ACT PLUS - POCT ([facility]) Routine 03/15/2025 2:07 PM CDT BLOOD GAS+COOX+LYTES+METAB ARTERIAL POCT Routine 03/15/2025 2:06 PM CDT PATHOLOGY TISSUE Routine 03/15/2025 1:53 PM CDT Mitral valve insufficiency, unspecified etiology BLOOD GAS+COOX+LYTES+METAB ARTERIAL POCT Routine 03/15/2025 1:30 PM CDT ACT PLUS - POCT ([facility]) Routine 03/15/2025 1:29 PM CDT BLOOD GAS+COOX+LYTES+METAB ARTERIAL POCT Routine 03/15/2025 1:15 PM CDT ACT PLUS - POCT ([facility]) Routine 03/15/2025 1:14 PM CDT ACT PLUS - POCT ([facility]) Routine 03/15/2025 1:04 PM CDT ACT PLUS - POCT ([facility]) Routine 03/15/2025 12:53 PM CDT BLOOD GAS+COOX+LYTES+METAB ARTERIAL POCT Routine 03/15/2025 12:52 PM CDT ACT PLUS - POCT ([facility]) Routine 03/15/2025 12:44 PM CDT BLOOD GAS+COOX+LYTES+METAB ARTERIAL POCT Routine 03/15/2025 12:33 PM CDT PULMONARY ARTERY CATHETER NOTE Routine 03/15/2025 12:19 PM CDT PULMONARY ARTERY CATHETER NOTE Routine 03/15/2025 12:19 PM CDT CENTRAL LINE NOTE Routine 03/15/2025 12:19 PM CDT ENDOTRACHEAL TUBE NOTE Routine 03/15/2025 12:18 PM CDT ARTERIAL LINE NOTE Routine 03/15/2025 12:18 PM CDT AL REPLACEMENT OF MITRAL VALVE 03/15/2025 11:04 AM [...] TUBE NOTE Routine 03/09/2025 6:28 PM CDT AL DENTAL SURGERY PROCEDURE 03/09/2025 5:37 PM CDT Infection Case Notes DOCTOR SEDIC WILL BE TO [facility] AND AVAILABLE TO OPERATE AT 1600. US [...] Ionized 1.16 mmol/L 03/23/2025 1:17 AM CDT [facility] pH 7.41 7.35 - 7.45 pH 03/23/2025 1:17 AM CDT [facility] Ionized Calcium pH Adjusted 1.16(L) 1.19 - 1.34 mmol/L 03/23/2025 1:17 AM CDT [facility] Blood BLOOD SPECIMEN / Unknown Lab Venipuncture / Unknown 03/23/2025 12:54 AM CDT 03/23/2025 1:12 AM CDT us Mariya Botello PA-C LAB - CHEMISTRY ORDERABLES F inal Result [facility] [address] [place] [phone], [facility] [phone] * (ABNORMAL) PT-INR (03/23/2025 12:54 AM CDT) Only the most recent of8 resultswithin the time period is included. PT 15.9(H) 12.1 - 14.8 Seconds 03/23/2025 1:37 AM [facility] INR 1.3 See Comment 03/23/2025 1:37 AM [facility] Comment:The suggested therap eutic range for standard coumadin (warfarin) therapy is an INR of 2.0-3.0. For high-risk patients (Mechanical Mitral Valve Prosthesis, etc.), the suggested prophylactic therapeutic range is an INR of 2.5-3.5. Blood BLOOD SPECIMEN / Unknown Lab Venipuncture / Unknown 03/23/2025 12:54 AM CDT 03/23/2025 1:16 AM CDT us Rahul Hernandez MD LAB - COAGULATION O RDERABLES Final Result [facility] [address] [place] [address], [facility] [phone] * (ABNORMAL) COMPREHENSIVE METABOLIC PANEL (03/23/2025 12:54 AM CDT) Only the most recent of22 resultswithin the time period is included. BUN 61(H) 7 - 26 mg/dL 03/23/2025 1:42 AM [facility] Creatinine 2.95(H) 0.71 - 1.16 mg/dL 03/23/2025 1:42 AM [facility] Sodium 135(L) 136 - 145 mmol/L 03/23/2025 1:42 AM [facility] Potassium 4.6(H) 3.5 - 4.5 mmol/L 03/23/2025 1:42 AM [facility] Chloride 102 98 - 107 mmol/L 03/23/2025 1:42 AM [facility] CO2 24 22 - 29 mmol/L 03/23/2025 1:42 AM [facility] Glucose 101(H) 70 - 99 mg/dL 03/23/2025 1:42 AM [facility] Calcium 9.0 8.4 - 10.2 mg/dL 03/23/2025 1:42 AM [facility] Protein Total 7.1 6.0 - 8.3 g/dL 03/23/2025 1:42 AM [facility] Albumin 3.2(L) 3.4 - 5.0 g/dL 03/23/2025 1:42 AM [facility] Bilirubin Total 0.2 0.2 - 1.2 mg/dL 03/23/2025 1:42 AM [facility] Alkaline Phosphatase 168(H) 40 - 150 U/L 03/23/2025 1:42 AM [facility] ALT 67(H) 5 - 55 U/L 03/23/2025 1:42 AM [facility] AST 43(H) 5 - 34 U/L 03/23/2025 1:42 AM [facility] Anion Gap 9 6 - 16 03/23/2025 1:42 AM [facility] BUN/Creatinine Ratio 21 7 - 23 03/23/2025 1:42 AM [facility] Osmolality Calculated 297(H) 275 - 295 mOsm/kg 03/23/2025 1:42 AM [facility] Albumin/Globulin Ratio 0.8(L) 1.1 - 2.3 03/23/2025 1:42 AM [facility] eGFR by CKD-EPI 23(L) >=90 mL/min/1.7 3 m2 03/23/2025 1:42 AM [facility] Comment:Estimated Glomerular Filtration Rate (eGFR) calculated using the CKD-EPI Creatinine Equation (2020), per the National Kidney Foundation and [place] [employer] Neph[employer] recommendations. Blood BLOOD SPECIMEN / Unknown Lab Venipuncture / Unknown 03/23/2025 12:54 AM CDT 03/23/2025 1:16 AM CDT us Rahul Hernandez MD LAB - CHEMISTRY ORD ERABLES Final Result [facility] [address] [place] [address], [facility] [phone] * PHOSPHORUS BLOOD (03/23/2025 12:54 AM CDT) Only the most recent of23 resultswithin the time period is included. Phosphorus 3.7 2.8 - 5.1 mg/dL 03/23/2025 1:42 AM CDT [facility] Blood BLOOD SPECIMEN / Unknown Lab Venipuncture / Unknown 03/23/2025 12:54 AM CDT 03/23/2025 1:16 AM CDT Mariya Botello PA-C LAB - CHEMISTRY ORDERABLES F inal Result Performing Organization Address [facility] Co de Phone Number [address] [address], [facility] [phone] * MAGNESIUM BLOOD (03/23/2025 12:54 AM CDT) Only the most recent of23 resultswithin the time period is included. Pathologist [facility] Magnesium 2.0 1.6 - 2.6 mg/dL 03/23/2025 1:42 AM CDT [facility] Blood BLOOD SPECIMEN / Unknown Lab Venipuncture / Unknown 03/23/2025 12:54 AM CDT 03/23/2025 1:16 AM CDT Mariya Botello PA-C LAB - CHEMISTRY ORDERABLES F inal Result Performing Organization Address [facility] de Phone Number [address] [address], [facility] [phone] * (ABNORMAL) CBC W/O DIFFERENTIAL (03/23/2025 12:53 AM CDT) Only the most recent of13 resultswithin the time period is included. Pathologist [facility] WBC 12.0(H) 4.0 - 10.7 x10E9/L 03/23/2025 1:22 AM CDT [facility] RBC Count 3.22(L) 4.30 - 5.80 x10E12/L 03/23/2025 1:22 AM CDT [facility] Hemoglobin 9.1(L) 13.3 - 17.5 g/dL 03/23/2025 1:22 AM T [facility] Hematocrit 29.0(L) 38.7 - 51.1 % 03/23/2025 1:22 AM CDT [facility] MCV 90.1 80.0 - 98.0 fL 03/23/2025 1:22 AM T [facility] MCH 28.3 26.7 - 33.6 pg 03/23/2025 1:22 AM T [facility] MCHC 31.4(L) 31.7 - 36.3 g/dL 03/23/2025 1:22 AM T [facility] RDW-CV 19.8(H) 11.3 - 14.8 % 03/23/2025 1:22 AM T [facility] Platelet Count 334 150 - 420 x10E9/L 03/23/2025 1:22 AM T [facility] MPV 10.2 7.8 - 11.4 fL 03/23/2025 1:22 AM [facility] Blood BLOOD SPECIMEN / Unknown Lab Venipuncture / Unknown 03/23/2025 12:53 AM CDT 03/23/2025 1:15 AM CDT Mariya Botello PA-C LAB - HEMATOLOGY ORDERABLES Final Result [facility] [address] [place] [address], [facility] [phone] * IR Central Line Insert Tunnel (03/22/2025 [...] stage 5, GFR less than 15 ml/min ([facility]) Additional History: Set Up Operator Tool: Garcia Gil MD COMPARISON: None. FLUOROSCOPY DOSE: [...] evaluation, please review the evaluation forms in [facility]. For details on monitored clinical parameters during the intra-service sedation time, please review the procedure nurse documentation in [facility]. I was present for the Entire procedure. Procedure Note Garcia Gil MD - 03/22/2025 PROCEDURE: IR CENTRAL LINE INSERT TUNNEL DATE/TIME OF EXAM: 03/22/2025 12:53 PM CLINICAL INFORMATION: None relevant/not provided if blank. Indication: R09.89: Endocarditis, suspected N18.5: CKD (chronic kidney disease) stage 5, GFR less than 15 ml/min(HCC) Additional History: Set Up Operator Tool: Garcia Gil MD COMPARISON: None. FLUOROSCOPY DOSE: [...] response to care. Intra-service sedation start time [id number] and end time was 1228 during which I was present. Total physician intra-service sedation time was 14 minutes. For details on pre-moderate sedation and post-moderate sedation patient evaluation, please reviewthe evaluation forms in [facility]. For details on monitored clinical parameters during the intra-service sedation time, please review the procedurenurse documentation in [facility]. I was present for the Entire [...] DATE/TIME OF EXAM: 03/22/2025 4:27 AM, LOCATION [facility] INDICATION: I34.0: Mitral valve insufficiency, unspecified etiology [...] spine. Report dictated by Jamie Rucker MD, (nursing resident). > Dictated by Transmission Mechanic I, Jamie Barriga MD have personally reviewed and interpreted this examination/study. > Interpreting Provider: Jamie Barriga MD on 03/22/2025 7:08 PM Procedure Note Jamie Barriga MD - 03/22/2025 PROCEDURE: XR CHEST 1VW PORTABLE, DATE/TIME OF EXAM: 03/22/2025 4:27 AM, LOCATION [facility] INDICATION: I34.0: Mitral valve insufficiency, unspecified etiology [...] spine. Report dictated by Jamie Rucker MD, (nursing resident). > Dictated by Transmission Mechanic I, Jamie Barriga MD have personally reviewed and interpreted this examination/study. > Interpreting Provider: Jamie Barriga MD on 03/22/2025 7:08 PM Buffy Jang [employer] RECEIVING[employer]ELECTRON[employer] SYSTEM MECHANIC DIAGNOSTIC IMAGI NG ORDERABLES Final Result * EKG 12-Lead (03/20/2025 12:00 PM CDT) Only the most recent of7 resultswithin the time period is included. Ventricular Rate 125 BPM [facility] Atrial Rate 125 BPM [facility] MUSE QRS Duration ms 90 ms [facility] MUSE Q-T Interval ms 336 ms [facility] MUSE QTC Calculation (Bezet) 484 ms [facility]USE Calculated P [place] 55 degrees [facility] Calculated R [place] 69 degrees [facility] Calculated T [place] 55 degrees [facility] Interpretation EKG SINUS TACHYCARDIA NONSPECIFIC ST ABNORMALITY ABNORMAL ECG WHEN COMPARED WITH ECG OF 20-MAR-2025 11:59, SINUS TACHYCARDIA HAS REPLACED JUNCTIONAL RHYTHM Confirmed by MISSY ALFARO, PRASAD ([id number]) on 03/26/2025 10:12:19 PM [facility] MUSE 03/20/2025 12:0 0 PM CDT 03/26/2025 10:12 PM CDT us Yousuf Chaudhari PA-C ECG ORDERABLES Edited Resu lt - Final [facility] NILDA * (ABNORMAL) BASIC METABOLIC PANEL (CALCIUM TOTAL) (03/19/2025 8:44 PM CDT) Only the most recent of3 resultswithin the time period is included. BUN 54(H) 7 - 26 mg/dL 03/19/2025 9:27 PM [facility] Creatinine 2.92(H) 0.71 - 1.16 mg/dL 03/19/2025 9:27 PM [facility] Sodium 134(L) 136 - 145 mmol/L 03/19/2025 9:27 PM [facility] Potassium 3.7 3.5 - 4.5 mmol/L 03/19/2025 9:27 PM [facility] Chloride 101 98 - 107 mmol/L 03/19/2025 9:27 PM [facility] CO2 22 22 - 29 mmol/L 03/19/2025 9:27 PM [facility] Glucose 122(H) 70 - 99 mg/dL 03/19/2025 9:27 PM [facility] Calcium 8.7 8.4 - 10.2 mg/dL 03/19/2025 9:27 PM [facility] Anion Gap 11 6 - 16 03/19/2025 9:27 PM [facility] BUN/Creatinine Ratio 18 7 - 23 03/19/2025 9:27 PM [facility] Osmolality Calculated 294 275 - 295 mOsm/kg 03/19/2025 9:27 PM [facility] eGFR by CKD-EPI 23(L) >=90 mL/min/1.7 3 m2 03/19/2025 9:27 PM [facility] Comment:Estimated Glomerular Filtration Rate (eGFR) calculated using the CKD-EPI Creatinine Equation (2020), per the National Kidney Foundation and [place] [employer] Neph[employer] recommendations. Blood BLOOD SPECIMEN / Unknown Venipuncture / Unknown 03/19/2025 8:44 PM CDT 03/19/2025 8:58 PM CDT us Nayanbita Hernandez [employer]CEIVING[employer]RON[employer] SYSTEM 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 - CHEMISTRY ORD ERABLES Final Result [facility] [address] [place] [address], [place] [phone] * ECHO COMPLETE W CONTRAST (03/19/2025 10:47 [...] 10:16 AM Patient Status: I/P Study Site: [facility] Primary Location: [facility] Info Technical Quality: Fair Exam Type: ECHO [...] Provider: Rahul Hernandez Attending Physician: Rahul Hernandez Regional Controller: Jose G Casper Left Ventricle The left [...] 10:16 AM Patient Status: I/P Study Site: [facility] Technical Quality: Fair Exam Type: ECHO COMPLETE W CONTRAST Indications I34.0 - Mitral valve insufficiency, unspecified etiology Procedure(s) * A complete 2D, color Doppler, spectral Doppler, and M-Modetransthoracic echocardiogram was performed. Contrast/Agitated Saline Contrast / Saline: Definity Amount: 1.00 ml Administered By: Jose G Casper Reaction to Contrast: no Staff Referring Physician: Rahul Hernandez Ordering Provider: Rahul Hernandez Attending Physician: Rahul Hernandez Regional Controller: Jose G Casper Left Ventricle The left [...] - 99 mg/dL 03/19/2025 8:27 AM T [facility] Specimen Type Arterial/C apillary 03/19/2025 8:27 AM [facility] Blood BLOOD SPECIMEN / Unknown 03/19/2025 8:22 AM CDT 03/19/2025 8:27 AM CDT Rahul Hernandez MD LAB - POINT OF CARE ORDERABLES Final Result [facility] [address] [place] [phone], [facility] [phone] * (ABNORMAL) HEPATIC FUNCTION PANEL (03/19/2025 4:28 AM CDT) Pathologist [facility] Protein Total 6.2 6.0 - 8.3 g/dL 025 7:34 AM [facility] Albumin 3.1(L) 3.4 - 5.0 g/dL 03/19/2025 7:34 AM [facility] Bilirubin Total 0.4 0.2 - 1.2 mg/dL 02/19 7:34 AM [facility] Bilirubin Conjugated 0.2 0.1 - 0.5 mg/dL 03/19/2025 7:34 AM [facility] Bilirubin Unconjugated 0.2 Unconjugated Bilirubin is a calculated value: Reference ranges have not been established. mg/dL 03/19/2025 7:34 AM [facility] Alkaline Phosphatase 198(H) 40 - 150 U/L 03/19/2025 7:34 AM CDT [facility] ALT 166(H) 5 - 55 U/L 03/19/2025 7:34 AM CDT [facility] AST 173(H) 5 - 34 U/L 03/19/2025 7:34 AM CDT [facility] Albumin/Globulin Ratio 1.0(L) 1.1 - 2.3 03/19/2025 7:34 AM CDT [facility] Blood BLOOD SPECIMEN / Unknown Venipuncture / Unknown 03/19/2025 4:28 AM CDT 03/19/2025 4:38 AM CDT us Jennyfer Dallas DO LAB - CHEMISTRY ORDERABLES Final Result Performing Organization Address City/[facility]/ZIP Co de Phone Number [facility] [address] [place] [address], [place] [phone] * TRANSFUSE RED BLOOD CELL LEUKOREDUCED UNIT(S) (03/16/2025 10:21 PM CDT) Rahul Hernandez MD NURSING - BLOOD PRO D TRANSFUSION Final Result * TYPE + SCREEN PANEL (03/16/2025 5:39 PM CDT) Only the most recent of3 resultswithin the time period is included. Antibody Screen NEG 6:34 PM CDT [facility] BLOOD BANK LAB ABO Rh O POS 03/16/2025 6:34 PM CDT [facility] BLOOD BANK LAB Blood Bank BLOOD SPECIMEN / Unknown Venipuncture / Unknown 03/16/2025 5:39 PM CDT 03/16/2025 5:51 PM CDT Rahul Hernandez MD LAB - BLOOD BANK OR DERABLES Final Result [facility] [address] [place] [address], [place] [phone] * TRANSFUSE RED BLOOD CELL LEUKOREDUCED UNIT(S) (03/16/2025 11:36 AM CDT) us Nayanbita Hernandez [employer] [facility] - BLOOD PRO D TRANSFUSION Final Result * (ABNORMAL) SVO2 FOR RECALIBRATION (03/16/2025 3:11 AM CDT) Only the most recent of4 resultswithin the time period is included. SVO2 for Recalibration 48.1(L) 66.0 - 77.0 % 03/16/2025 3:20 AM CDT [facility] Blood BLOOD SPECIMEN / Unknown Venipuncture / Unknown 03/16/2025 3:11 AM CDT 03/16/2025 3:16 AM CDT Result [facility] Mariya Botello PA-C LAB - CHEMISTRY ORDERABLES F inal Result [facility] [address] [place] [address], [facility] [phone] * HEMOGLOBIN A1C (03/16/2025 3:11 AM CDT) Hemoglobin A1c 5.3 <=5.6 % 03/16/2025 10:31 AM CDT [facility] Estimated Average Glucose 105 mg/dL 03/16/2025 10:31 AM T [facility] Comment: HbA1c Interpretation: Normal : < 5.7% Pre-diabetes: 5.7-6.4% Diabetes: Equal to or greater than 6.5% Test results diagnostic of diabetes should be repeated for confirmation. Treatment target values recommended by ADA and other clinical organizations should be used to evaluate metabolic control in patients. Reference: [place] [employer], Standards of Care in Diabetes [...] LAB - CHEMISTRY ORDERABLES F inal Result [address] [address], [facility] [phone] * (ABNORMAL) LACTIC ACID BLOOD (03/16/2025 3:11 AM CDT) Only the most recent of3 resultswithin the time period is included. [facility] Lactic Acid-Stat 3.7(HH) <=2.0 mmol/L 03/16/2025 4:02 AM T [facility] Blood BLOOD SPECIMEN / Unknown Venipuncture / Unknown 03/16/2025 3:11 AM CDT 03/16/2025 3:21 AM CDT Nayan Hernandez [employer]CEIVING[employer] 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 - CHEMISTRY ORD ERABLES Final Result Performing Organization Address [facility]/ZIP Co de Phone Number [address] [address], [facility] [phone] * (ABNORMAL) BLOOD GASES ART + COOX PANEL (03/16/2025 3:11 AM CDT) Only the most recent of4 resultswithin the time period is included. [facility] pH Arterial 7.38 7.35 - 7.45 pH 03/16/2025 3:21 AM [facility] pO2 Arterial 104(H) 80 - 100 mmHg 03/16/2025 3:21 AM [facility] pCO2 Arterial 31(L) 35 - 45 mmHg 3:21 AM [facility] HCO3 Arterial 18.3(L) 20.0 - 30.0 mmol/L 03/16/2025 3:21 AM [facility] BE Arterial -6.1(L) -2.0 - 2.0 mmol/L 03/16/2025 3:21 AM [facility] Oxyhemoglobin Arterial 96.3 % 03/16/2025 3:21 AM [facility] Dexoyhemoglobin (HHB) % <1.0 % 03/16/2025 3:21 AM CDT [facility] Methemoglobin 1.3 0.0 - 2.0 % 03/16/2025 3:21 AM CDT [facility] Carboxyhemoglobin 1.8 0.0 - 2.0 % 2024 3:21 AM CDT [facility] O2 Content Arterial 10.6 Interpret within clinical context ml/dL 03/16/2025 3:21 AM T [facility] Hemoglobin by COOX 7.7(L) 12.0 - 17.6 g/dL 03/16/2025 3:21 AM T [facility] O2 Saturation Arterial 99 90 - 100 % 03/16/2025 3:21 AM T [facility] FI O2 Arterial 28.0 % 03/16/2025 3:21 AM T [facility] Blood, arterial ARTERIAL BLOOD SPECIMEN / Unknown Arterial Puncture / Unknown 03/16/2025 3:11 AM CDT 03/16/2025 3:16 AM CDT Narrative [facility] - 03/16/2025 3:21 AM CDT Carboxyhemoglobin Normal Concentration: Non-smokers: 0-2%; Smokers: 0-9%; Toxic: >20% us Nayan Hernandez [employer] 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 - BLOOD GASES O RDERABLES Final Result [facility] [address] [place] [address], [facility] [phone] * TRANSFUSE RED BLOOD CELL LEUKOREDUCED UNIT(S) [...] - 400 mg/dL 03/15/2025 6:03 PM CDT [facility] Blood BLOOD SPECIMEN / Unknown Venipuncture / Unknown 03/15/2025 5:32 PM CDT 03/15/2025 5:35 PM CDT Mariya Botello PA-C LAB - COAGULATION ORDERABLES Final Result Performing Organization Address [facility] Co de Phone Number [address] [address], [place] [phone] * PTT (03/15/2025 5:32 PM CDT) Only the most recent of2 resultswithin the time period is included. [facility] APTT 29.8 23.0 - 38.4 Seconds 03/15/2025 6:05 PM CDT [facility] Comment:Suggested therapeuti c range for full dose I.V. unfractionated heparin therapy for venous thromboembolism is 71 to 109 seconds. Blood BLOOD SPECIMEN / Unknown Venipuncture / Unknown 03/15/2025 5:32 PM CDT 03/15/2025 5:35 PM CDT Mariya GARRETT-C LAB - COAGULATION ORDERABLES Final Result Performing Organization Address [facility]/ZIP Co de Phone Number [address] [address], [place] [phone] * (ABNORMAL) DIFFERENTIAL MANUAL (03/15/2025 5:32 PM CDT) Neutrophil % 90(H) 41 - 74 % 03/15/2025 6:09 PM [facility] Lymphocyte % 6(L) 17 - 47 % 03/15/2025 6:09 PM [facility] Monocyte % 4 3 - 11 % 03/15/2025 6:09 PM [facility] Neutrophil Absolute 19.53(H) 1.60 - 7.50 x10E9/L 03/15/2025 6:09 PM [facility] Lymphocyte Absolute 1.30 1.00 - 4.40 x10E9/L 03/15/2025 6:09 PM [facility] Monocyte Absolute 0.87 0.15 - 1.00 x10E9/L 03/15/2025 6:09 PM [facility] RBC Morphology REVIEWED 03/15/2025 6:09 PM [facility] Large Platelets PRESENT(A) (none) 03/15/2025 6:09 PM [facility] Blood BLOOD SPECIMEN / Unknown Venipuncture / Unknown 03/15/2025 5:32 PM CDT 03/15/2025 5:38 PM CDT us Mariya Botello PA-C LAB - HEMATOLOGY ORDERABLES Final Result [facility] [address] [place] [address], [facility] [phone] * (ABNORMAL) CBC W AUTO DIFFERENTIAL (03/15/2025 5:32 PM CDT) Only the most recent of14 resultswithin the time period is included. WBC 21.7(H) 4.0 - 10.7 x10E9/L 03/15/2025 6:09 PM [facility] RBC Count 2.71(L) 4.30 - 5.80 x10E12/L 03/15/2025 6:09 PM [facility] Hemoglobin 7.9(L) 13.3 - 17.5 g/dL 03/15/2025 6:09 PM [facility] Hematocrit 24.0(L) 38.7 - 51.1 % 03/15/2025 6:09 PM CDT [facility] MCV 88.6 80.0 - 98.0 fL 03/15/2025 6:09 PM CDT [facility] MCH 29.2 26.7 - 33.6 pg 03/15/2025 6:09 PM CDT [facility] MCHC 32.9 31.7 - 36.3 g/dL 03/15/2025 6:09 PM T [facility] RDW-CV 15.9(H) 11.3 - 14.8 % 03/15/2025 6:09 PM T [facility] Platelet Count 251 150 - 420 x10E9/L 03/15/2025 6:09 PM T [facility] MPV 9.5 7.8 - 11.4 fL 03/15/2025 6:09 PM CDT [facility] Blood BLOOD SPECIMEN / Unknown Venipuncture / Unknown 03/15/2025 5:32 PM CDT 03/15/2025 5:38 PM CDT us Mariya Botello PA-C LAB - HEMATOLOGY ORDERABLES Final Result [facility] [address] [place] [address], [place] [phone] * CULTURE WOUND+GRAM STAIN (03/15/2025 5:06 PM CDT) Culture No growth LAVELLE 03/19/2025 1:10 PM CDT [facility] MICROBIOLOG[facility] Gram Stain Light Polymorphonuclear cells 03/19/2025 1:10 PM CDT [facility]CRO[facility] Gram Stain No organisms seen 025 1:10 PM CDT [facility]CRO[facility] Microbiology TISSUE SPECIMEN / Unknown Collection / Unknown 03/15/2025 5:06 PM CDT 03/15/2025 5:06 PM CDT us Rahul Hernandez MD LAB - MICROBIOLOGY ORDERABLES Final Result [facility]CRO[facility] [address] [place] [address], [facility] [phone] * CULTURE ANAEROBE (03/15/2025 5:06 PM CDT) Culture No anaerobic organisms isolated [place]LE 03/20/2025 12:08 PM CDT [facility] MICROBIOLOGY Microbiology TISSUE SPECIMEN / Unknown Collection / Unknown 03/15/2025 5:06 PM CDT 03/15/2025 5:06 PM CDT Rahul Hernandez MD LAB - MICROBIOLOGY ORDERABLES Final Result [facility]CRO[facility] [address] [place] [address], [facility] [phone] * TRANSFUSE FRESH FROZEN PLASMA UNIT(S) (03/15/2025 [...] were not saved. I personally performed. CPT 46303 with bilateral modifier. Alexa Page MD GENERAL [...] 7.35 - 7.45 pH 03/15/2025 4:00 PM [facility] pO2 Arterial 384(H) 80 - 100 mmHg 03/15/2025 4:00 PM [facility] pCO2 Arterial 41 35 - 45 mmHg 4:00 PM [facility] HCO3 Arterial 22.1 20.0 - 30.0 mmol/L 03/15/2025 4:00 PM [facility] BE Arterial -3.4(L) -2.0 - 2.0 mmol/L 03/15/2025 4:00 PM [facility] Oxyhemoglobin Arterial 97.9 % 03/15/2025 4:00 PM [facility] Dexoyhemoglobin (HHB) % <1.0 % 03/15/2025 4:00 PM [facility] Methemoglobin 1.1 0.0 - 2.0 % 03/15/2025 4:00 PM [facility] Carboxyhemoglobin 1.0 0.0 - 2.0 % 2024 4:00 PM [facility] Comment:Carboxyhemoglobin No rmal Concentration: Non-smokers: 0-2%; Smokers: 0- 9%; Toxic: >20% O2 Content Arterial 13.2 Interpret within clinical context ml/dL 03/15/2025 4:00 PM [facility] Hemoglobin by COOX 8.8(L) 12.0 - 17.6 g/dL 03/15/2025 4:00 PM [facility] O2 Saturation Arterial 100 90 - 100 % 03/15/2025 4:00 PM [facility] Sodium Whole Blood 138 135 - 145 mmol/L 03/15/2025 4:00 PM [facility] Potassium Whole Blood 4.1 3.5 - 5.5 mmol/L 03/15/2025 4:00 PM [facility] Chloride WB 107 78 - 107 mmol/L 03/15/2025 4:00 PM [facility] Calcium Ionized 1.36 mmol/L 4:00 PM [facility] Ionized Calcium pH Adjusted 1.33 1.19 - 1.34 mmol/L 03/15/2025 4:00 PM [facility] Anion Gap (AG) Arterial 9 6 - 16 mmol/L 03/15/2025 4:00 PM [facility] Glucose WB 193(H) 70 - 99 mg/dL 03/15/2025 4:00 PM [facility] Lactic Acid Whole Blood 1.8 <=2.0 mmol/L 03/15/2025 4:00 PM [facility] Blood, arterial ARTERIAL BLOOD SPECIMEN / Unknown 03/15/2025 4:00 PM CDT 03/15/2025 4:00 PM CDT Cornelia Serra MD LAB - POINT OF CARE ORDERABLE S Final Result Performing Organization Address City/[facility]/ZIP Co de Phone Number [address] [address], [place] [phone] * TRANSFUSE RED BLOOD CELL LEUKOREDUCED UNIT(S) (03/15/2025 3:30 PM CDT) us Rahul Hernandez MD NURSING - BLOOD PRO D TRANSFUSION Final Result * ACT PLUS - POCT ([facility]) (03/15/2025 3:17 PM CDT) Only the most recent of8 resultswithin the time period is included. [facility] ACT PLUS 112 See result comments sec 03/15/2025 3:21 PM CDT [facility] Blood BLOOD SPECIMEN / Unknown 03/15/2025 3:17 PM CDT 03/15/2025 3:21 PM CDT Narrative [facility] - 03/15/2025 3:21 PM CDT ACT+ Therapeutic ranges for the ACT+ test in surgery areas are: Greater than (>) 360 seconds for surgical patients Greater than (>) 450 seconds for surgical bypass patients Cornelia Serra MD LAB - COAGULATION ORDERABLES Final Result Performing Organization Address City/[facility]/ZIP Co de Phone Number [address] [address], [place] [phone] * (ABNORMAL) TEG 6 GLOBAL HEMOSTASIS WITH HEPARIN NEUTRALIZATION (03/15/2025 3:10 PM CDT) Pathologist [facility] CITRATED KAOLIN R (CK-R REACTION TIME) 5.4 4.6 - 9.1 min 03/15/2025 4:11 PM CDT [facility] CITRATED KAOLIN MA (CK-MA MAX AMPLITUDE) 70.3(H) 52.0 - 69.0 mm 03/15/2025 4:11 PM CDT [facility] CITRATED KAOLIN HEPARINASE R ( CKH R REACTION TIME) 4.7 4.3 - 8.3 min 03/15/2025 4:11 PM CDT [facility] CITRATED KAOLIN HEPARINASE LY30 ([facility] LY30 LYSIS) 0.0 0.0 - 3.2 % 03/15/2025 4:11 PM CDT [facility] CITRATED RAPIDTEG HEPARINASE MA ( [facility] MA MAX AMPLITUDE) 69.5(H) 53.0 - 69.0 mm 03/15/2025 4:11 PM CDT [facility] CITRATED FUCTIONAL FIBRINOGEN HEPARINASE ( CFFH MAX AMPLITUDE) 39.1(H) 15.0 - 34.0 mm 03/15/2025 4:11 PM CDT [facility] Blood BLOOD SPECIMEN / Unknown 03/15/2025 3:10 PM CDT 03/15/2025 3:18 PM CDT Alexa Page MD LAB - HEMATOLOGY ORDERABL ES Final Result Performing Organization Address City/[facility]/ZIP Co de Phone Number [address] [address], [place] [phone] * PLATELET COUNT AUTO CITRATED BLOOD (03/15/2025 2:33 PM CDT) [facility] Platelet Count Citrated 215 150 - 420 x10E9/L 03/15/2025 3:49 PM CDT [facility] Blood BLOOD SPECIMEN / Unknown Venipuncture / Unknown 03/15/2025 2:33 PM CDT 03/15/2025 2:33 PM CDT Narrative [facility] - 03/15/2025 3:49 PM CDT This test was developed and its performance characteristics determined by the clinical laboratories of [facility] and [facility]. It has not been cleared and approved by the [place] Food and Drug Administration. Alexa Page MD LAB - HEMATOLOGY ORDERABL ES Final Result Performing Organization Address [facility]/ZIP Co de Phone Number [address] [address], [place] [phone] * PATHOLOGY TISSUE (03/15/2025 1:53 PM CDT) Case Report Surgical Pathology Report Case: [id number] Authorizing Provider: Rahul Hernandez Collected: 03/15/2025 01:53 PM MD Tyrell Ordering Location: [facility] ZUNILDA OP Received: 03/16/2025 05:08 AM Pathologist: [...] are no vegetations or calcific nodules present. Manager Fleet sections are submitted in a single cassette labeled A1. RB 03/17/2025 3:58 PM CDT [facility] Pathologist Location at [facility] 03/17/2025 3:58 PM CDT [facility] Disclaimer The performance characteristics of all immunohistochemical and indirect immunofluorescence stains (if any) cited in this report were determined by the Histopathology Laboratory of [facility]. Some of these tests were developed [...] attending (teaching) pathologist. 03/17/2025 3:58 PM CDT [facility] PATHOLOGY LAB Embedded Images 03/17/2025 3:58 PM CDT [facility] PATHOLOGY LAB Resection without Tumor ENTIRE MITRAL VALVE / Unknown 03/15/2025 1:53 PM CDT 03/16/2025 5:08 AM CDT Comment:Pre-op diagnosis: mitral valve regurgitation us Rahul Hernandez MD LAB - PATHOLOGY/CYT OLOGY ORDERABLES Final Result [facility] PATHOLOGY LAB [address] [place] [address], [facility] [phone] * PA CATH PERFORMABLE, INTRODUCER (03/15/2025 12:19 [...] Event Date/Time: 03/15/2025 11:38 AM Procedure: intubation (79609) Procedure Section: Sedation: under general anesthesia. Indications [...] Time: 03/15/2025 11:32 AM Procedure: Arterial Line (67646) Procedure Section Indications: continuous blood pressure monitoring. [...] See Separate Report 03/15/2025 9:31 AM CDT [facility] Other MISCELLANEOUS SAMPLES / Unknown 03/15/2025 8:06 AM CDT 03/15/2025 8:07 AM CDT Rahul Hernandez MD LAB - BLOOD GASES O RDERABLES Final Result [facility] [address] [place] [address], [place] [phone] * BLOOD GAS ART+LYTES+METAB+COOX POC NOTIF (03/15/2025 8:06 AM CDT) Comment Notification Label Only - See Separate Report 03/15/2025 9:31 AM CDT [facility] Other MISCELLANEOUS SAMPLES / Unknown 03/15/2025 8:06 AM CDT 03/15/2025 8:07 AM CDT us Rahul Hernandez MD LAB - BLOOD GASES O RDERABLES Final Result [facility] [address] [place] [address], [facility] [phone] * ECHO ANES SINTIA INTRAOP (03/15/2025 6:23 [...] 10:01 AM Patient Status: I/P Study Site[facility] Type: ECHO ANES SINTIA [...] 10:01 AM Patient Status: I/P Study Site: [facility] Primary Location: [facility] EStudy Info Exam Type: ECHO ANES SINTIA [...] UNIT(S) (03/14/2025 5:37 PM CDT) Ofelia Mckee [employer]CE[employer] MECHANIC NURSING - BLOOD PROD TRANSFUSION Final Result * PREPARE (CROSSMATCH) RBC UNIT(S), 1 Units (03/14/2025 5:21 AM CDT) Only the most recent of6 resultswithin the time period is included. Unit Description N/A [facility] BLOOD BANK LAB Blood Bank BLOOD SPECIMEN / Unknown 03/14/2025 5:21 AM CDT 03/14/2025 5:53 AM CDT Rahul Hernandez MD LAB - BLOOD BANK OR DERABLES Final Result [facility] BLOOD BANK LAB [address] [place] [address], [facility] [phone] * PREPARE PLATELET PHERESIS UNIT(S), 2 Units (03/14/2025 5:21 AM CDT) Only the most recent of2 resultswithin the time period is included. Unit Description LR PLT Phere B7 [facility] BLOOD [facility]ANK LAB Unit ABO O [facility]OD [facility] Unit Rh POS [facility] BLOOD [facility] LAB Product Number P27 [facility] B LOOD BANK LAB Unit Donor # [id number] [facility] BLOOD [facility] LAB Unit Status transfused [facility] BLO OD BANK LAB Product Code [id number] [facility] BLO OD BANK LAB Blood Type Barcode 5100 [facility] LAB Expiration Date [id number] S BLOOD BANK LAB Unit Description LR PLT Phere B7 [facility] BLOOD [facility] LAB Unit ABO O [facility] BLOOD [facility] LAB Unit Rh POS [facility] BLOOD [facility] LAB Product Number P27 [facility] B LOOD BANK LAB Unit Donor # [id number] [facility] BLOOD [facility] LAB Unit Status released [facility] BLOO D BANK LAB Product Code [id number] [facility] BLO OD BANK LAB Blood Type Barcode 5100 [facility] BLOOD [facility] LAB Expiration Date [id number] S BLOOD BANK LAB Blood Bank BLOOD SPECIMEN / Unknown 03/14/2025 5:21 AM CDT 03/14/2025 5:53 AM CDT us Rahul Hernandez MD LAB - BLOOD BANK OR DERABLES Final Result [facility] BLOOD BANK LAB [address] [place] [address], [facility] [phone] * PREPARE FFP UNIT(S), 4 Units (03/14/2025 5:21 AM CDT) Only the most recent of2 resultswithin the time period is included. Unit Description Liquid Plasma [facility] BLOOD BANK LAB Unit ABO A [facility] BLOOD [facility] Unit POS [facility]LO[facility] Product Number [id number] [facility] B LOOD BANK LAB Unit Donor # [id number] [facility] BLOOD B[facility] LAB Unit Status released [facility] BLOO D BANK LAB Product Code [id number] [facility] BLO OD BANK LAB Blood Type Barcode 6200 [facility] BLOOD [facility] LAB Expiration Date [id number] S BLOOD BANK LAB Unit Description Liquid Plasma [facility] BLOOD [facility] LAB Unit ABO A [facility] BLOOD B[facility] Unit Rh POS [facility] BLOOD [facility] Product Number E2457 [facility] B LOOD BANK LAB Unit Donor # [id number] [facility] BLOOD BANK LAB Unit Status transfused [facility] BLO OD BANK LAB Product Code [id number] [facility] BLO OD BANK LAB Blood Type Barcode 6200 [facility] BLOOD BANK LAB Expiration Date [id number] S BLOOD BANK LAB Blood Bank BLOOD SPECIMEN / Unknown 03/14/2025 5:21 AM CDT 03/14/2025 5:53 AM CDT Rahul Hernandez MD LAB - BLOOD BANK OR DERABLES Final Result [facility] BLOOD [facility]ANK LAB [address] [place] [address], [facility] [phone] * (ABNORMAL) URINALYSIS REFLEX MICROSCOPIC REFLEX CULTURE (03/13/2025 9:10 AM CDT) Only the most recent of2 resultswithin the time period is included. Color UA Colorless(A) Yellow, Straw 03/13/2025 9:50 AM [facility] Clarity UA Clear Clear 03/13/2025 9:50 AM [facility] Glucose UA 1+(A) Normal 03/13/2025 9:50 AM [facility] Bilirubin UA Negative Negative 03/13/2025 9:50 AM [facility] Ketone UA Negative Negative 03/13/2025 9:50 AM [facility] Specific Fletcher UA 1.012 1.005 - 1.030 03/13/2025 9:50 AM [facility] Blood UA Negative Negative 03/13/2025 9:50 AM [facility] pH UA 6.5 5.0 - 8.0 03/13/2025 9:50 AM [facility] Protein UA 1+(A) Negative 03/13/2025 9:50 AM [facility] Urobilinogen UA Normal Normal mg/dL 03/13/2025 9:50 AM [facility] Nitrite UA Negative Negative 03/13/2025 9:50 AM [facility] Leukocyte Esterase UA Negative Negative 03/13/2025 9:50 AM [facility] RBC UA 0-2 0 - 5 # /hpf 03/13/2025 9:50 AM [facility] WBC UA 0-5 0 - 5 # /hpf 03/13/2025 9:50 AM [facility] Bacteria UA None Seen None Seen 03/13/2025 9:50 AM [facility] Squamous Epithelial Cells None Seen 0 - 5 /hpf 03/13/2025 9:50 AM [facility] Mucus UA 1+ /LPF 03/13/2025 9:50 AM [facility] Reflex Status Culture not indicated 03/13/2025 9:50 AM CDT [facility] Urine URINE SPECIMEN OBTAINED BY CLEAN CATCH PROCEDURE / Unknown Collection / Unknown 03/13/2025 9:10 AM CDT 03/13/2025 9:19 AM CDT Narrative [facility] - 03/13/2025 9:50 AM CDT Ofelia Mckee [employer]CEIVING[employer] 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 - URINALYSIS ORDE RABLES Final Result [facility] [address] [place] [address], [facility] [phone] * BLOOD TYPE VERIFICATION (03/10/2025 10:02 PM CDT) ABO Rh O POS 03/10/2025 10:56 PM CDT [facility] BLOOD BANK LAB Blood Bank BLOOD SPECIMEN / Unknown Lab Venipuncture / Unknown 03/10/2025 10:02 PM CDT 03/10/2025 10:11 PM CDT Yousuf Chaudhari PA-C LAB - BLOOD BANK ORDERABLES Final Result Performing Organization Address [facility]/ZIP Co de Phone Number [facility] BLOOD BANK LAB [address] [place] [address], [place] [phone] * CT Chest Wo Contrast (03/10/2025 2:43 [...] indicated. > Dictated by Nick Jay MD, (nursing resident). > Dictated by Transmission Mechanic IJen MD have personally reviewed and interpreted this examination/study. > Interpreting Provider: Jen Thomson MD on 03/10/2025 5:00 PM Narrative 03/10/2025 5:00 PM CDT PROCEDURE: CT CHEST WO CONTRAST, DATE/TIME OF EXAM: 03/10/2025 2:44 PM, LOCATION [facility] INDICATION: I33.0: Mitral valve vegetation (HCC) ADDITIONAL [...] DATE/TIME OF EXAM: 03/10/2025 2:44 PM, LOCATION [facility] INDICATION: I33.0: Mitral valve vegetation (HCC) ADDITIONAL [...] indicated. > Dictated by Nick Jay MD, (nursing resident). > Dictated by Transmission Mechanic IJen MD have personally reviewed and interpreted [...] PMHx HTN, COPD, CKD, GERD presented to [facility] as OSH transfer for CTS evaluation for [...] Event Date/Time: 03/09/2025 6:17 PM Procedure: intubation (02066) Procedure Section: Sedation: under general anesthesia. Indications [...] clinically indicated. > Dictated by Eunice Ramirez (nursing resident). > Dictated by Eunice Ramirez 03/09/2025 11:07 AM > Dictated by Transmission Mechanic IJen MD have personally reviewed and interpreted [...] bladder with DICOM image capture performed by nuclear medicine chief technologist. FINDINGS: Right kidney: 10.9 x 5.6 [...] disease) stage 5, GFR less than15 ml/min ([facility]) Additional History: COMPARISON: None. TECHNIQUE: Real-time ultrasound of the kidneys and bladder with DICOMimage capture performed by nuclear medicine chief technologist. FINDINGS: Right kidney: 10.9 x 5.6 [...] clinically indicated. > Dictated by Eunice Ramirez (nursing resident). > Dictated by Eunice Ramirez 03/09/2025 11:07 AM > Dictated by Transmission Mechanic IJen MD have personally reviewed and interpreted this examination/study. > Interpreting Provider: Jen Thomson MD on 03/09/2025 1:40 PM Adalberto Arroyo MD ORDERABLES Final Result * VITAMIN D 25-HYDROXY (03/08/2025 5:06 AM CDT) Vitamin D, 25 Hydroxy 39.0 30.0 - 80.0 ng/mL 03/08/2025 6:22 AM CDT [facility] Comment: The recommendations for 25-Hydroxy [...] ORDERABLES F inal Result Performing Organization Address [facility]/ZIP Co de Phone Number [address] [address], [place] [phone] * (ABNORMAL) PTH INTACT W/O CALCIUM (03/08/2025 5:05 AM CDT) PTH Intact 80.3(H) 8.0 - 77.0 pg/mL 03/08/2025 6:10 AM CDT [facility] Blood BLOOD SPECIMEN / Unknown Lab Venipuncture / Unknown 03/08/2025 5:05 AM CDT 03/08/2025 5:34 AM CDT Adalberto Arroyo MD LAB - CHEMISTRY ORDERABLES F inal Result Performing Organization Address [facility] Co de Phone Number [address] [address], [place] [phone] * (ABNORMAL) IRON + TRANSFERRIN PANEL (03/08/2025 5:05 AM CDT) Iron 38(L) 50 - 175 ug/dL 03/08/2025 6:09 AM CDT [facility] Transferrin 201 174 - 382 mg/dL 03/08/2025 6:09 AM CDT [facility] Transferrin Saturation % 15(L) 16 - 50 % 03/08/2025 6:09 AM CDT [facility] TIBC Calculated 251 240 - 450 ug/dL 03/08/2025 6:09 AM CDT [facility] Blood BLOOD SPECIMEN / Unknown Lab Venipuncture / Unknown 03/08/2025 5:05 AM CDT 03/08/2025 5:24 AM CDT Adalberto Arroyo MD LAB - CHEMISTRY ORDERABLES F inal Result Performing Organization Address City/[facility]/ZIP Co de Phone Number [address] [address], [facility] [phone] * (ABNORMAL) FERRITIN (03/08/2025 5:05 AM CDT) Ferritin 447(H) 22 - 275 ng/mL 03/08/2025 6:13 AM CDT [facility] Blood BLOOD SPECIMEN / Unknown Lab Venipuncture / Unknown 03/08/2025 5:05 AM CDT 03/08/2025 5:24 AM CDT Adalberto Arroyo MD LAB - CHEMISTRY ORDERABLES F inal Result Performing Organization Address [facility]/ZIP Co de Phone Number [address] [address], [facility] [phone] * VAS Carotid Duplex Bilateral (03/07/2025 4:07 PM CDT) Anatomical Region Laterality Modality Neck Intravascular Ul trasound 03/07/2025 2:33 PM CDT Narrative Procedure Note Osvaldo Doyle MD - 03/08/2025 Kota Estrella [employer] RECEIVING[employer] MECHANIC VASCULAR LAB ORDERABLE S Edited Result - [...] 10:44 AM Patient Status: I/P Study Site: [facility] Primary Location: [facility] EStudy Info Exam Type: ECHO SINTIA COMPLETE Indications I34.81 - Calcification of mitral valve Contrast/Agitated Saline Contrast / Saline: Agitated Saline Amount: 10.00 ml Reaction to Contrast: no * A 3D, 2D, color Doppler and spectral Doppler transesophageal echocardiogram was performed with a Bubble Study. Staff Referring Physician: Pramod Torres Ordering Provider: Pramod Torres Attending Physician: Pramod Torres Fellow: Osvaldo Sepulveda Regional Controller: Iris Greco Performing Physician: Tahmina Bui Complications [...] anterior mitral valve leaflet tip (around the A2/U0wavqtqj tip). * There is moderate to severe [...] 10:44 AM Patient Status: I/P Study Site: [facility] Primary Location: [facility] EStudy Info Exam Type: ECHO SINTIA COMPLETE Indications I34.81 - Calcification of mitral valve Contrast/Agitated Saline Contrast / Saline: Agitated Saline Amount: 10.00 ml Reaction to Contrast: no * A 3D, 2D, color Doppler and spectral Doppler transesophagealechocardiogram was performed with a Bubble Study. Staff Referring Physician: Pramod Torres Ordering Provider: Pramod Torres Attending Physician: Pramod Torres Fellow: Osvaldo Sepulveda Regional Controller: Iris Greco Performing Physician: Tahmina Bui Complications [...] anterior mitral valve leaflet tip (around the A2/I8kvaotac tip). There is moderate to severe mitral [...] day 5 LAVELLE 03/09/2025 1:30 PM CDT [facility] Blood PERIPHERAL BLOOD / Unknown Lab Venipuncture / Unknown 03/04/2025 11:09 AM CDT 03/04/2025 11:25 AM CDT Pramod Torres DO LAB - MICROBIOLOGY ORDERABLES Final Result [facility] [address] [place], [place] [address] [phone] * HEPATITIS C AB SCREEN RFLX NAAT QUANT (03/04/2025 6:36 AM CDT) Pathologist [facility] Hepatitis C Antibody Non-react francisco Non-reac tive 03/04/2025 8:16 AM CDT [facility] Comment:Hepatitis C Antibody screen indicates no [...] ORDERABLES Fin al Result Performing Organization Address City/[facility]/ZIP Co de Phone Number [address] [address], [facility] [phone] * HIV-1 HIV-2 ANTIBODY + HIV P24 AG PANEL (03/04/2025 6:36 AM CDT) Pathologist [facility] HIV Antigen/Antibod y 1 & 2 Non-reacti ve Non-react francisco 03/04/2025 9:14 AM CDT [facility] Comment:No Laboratory eviden ce of HIV infection. Blood BLOOD SPECIMEN / Unknown Lab Venipuncture / Unknown 03/04/2025 6:36 AM CDT 03/04/2025 6:55 AM CDT Pramod Torres DO LAB - CHEMISTRY ORDERABLES Fin al Result Performing Organization Address City/[facility]/ZIP Co de Phone Number [address] [address], [facility] [phone] * HEPATITIS B PANEL (03/04/2025 6:36 AM CDT) Pathologist [facility] Hepatitis B Surface Antibody Quantitative <3.0 <8.0 mIU/mL 03/04/2025 8:41 AM CDT [facility] Comment: Hepatitis B Surface Antibody Numeric Result Interpretation: Nonreactive: <8.0 mIU/mL Indeterminate: 8.0 - 12.0 mIU/mL Reactive: >12.0 mIU/mL Hepatitis B Virus Surface Antibody Non-react francisco Non-react francisco 03/04/2025 8:41 AM CDT [facility] Comment: < 8 mIU/mL Hepatitis B surface Antibody (HBsAb). Nonreactive for HBsAb - individual is considered not immune to Hepatitis B Virus infection. Hepatitis B Virus Surface Antigen Non-react francisco Non-react francisco 03/04/2025 8:41 AM CDT [facility] Hepatitis B Core Virus Antibody IgM Non-react francisco Non-react francisco 03/04/2025 8:41 AM CDT [facility] Blood BLOOD SPECIMEN / Unknown Lab Venipuncture / Unknown 03/04/2025 6:36 AM CDT 03/04/2025 6:55 AM CDT Pramod Torres DO LAB - CHEMISTRY ORDERABLES Fin al Result [facility] [address] [place] [address], [facility] [phone] * XR Panorex (03/03/2025 4:22 PM CDT) Anatomical Region Laterality Modality Head Radiographic Melba ging 03/04/2025 8:30 AM CDT Impressions 03/04/2025 9:17 AM CDT IMPRESSION: Lucencies within the right mandibular presumed location of absent of the molar and premolar teeth. Recommend dental consultation. The report was drafted by Ofe Aponte MD (human resources vice president) 03/04/2025 8:30 AM. > Dictated by Transmission Mechanic I, Jamie Barriga MD have personally reviewed and interpreted this examination/study. 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 > Dictated by Transmission Mechanic I, Jamie Barriga MD have personally reviewed and interpreted this examination/study. > Interpreting Provider: Jamie Barriga MD on 03/04/2025 9:17 AM Pramod Torres DO DIAGNOSTIC IMAGING ORDERABLES Final Result * URINE DRUG SCREEN IMMUNOASSAY (03/03/2025 12:34 PM CDT) Amphetamines Screen Urine Negative Negative: < 1000 ng/mL 03/03/2025 1:24 PM CDT [facility] Barbiturates Screen Urine Negative Negative: < 200 ng/mL 03/03/2025 1:24 PM T [facility] Benzodiazepine Screen Urine Negative Negative: < 200 ng/mL 03/03/2025 1:24 PM T [facility] Opiates Urine Negative Negative: < 300 ng/mL 03/03/2025 1:24 PM CDT [facility] Cocaine Metabolites Urine Negative Negative: < 300 ng/mL 03/03/2025 1:24 PM CDT [facility] Phencyclidine Screen Urine Negative Negative: < 25 ng/ml 03/03/2025 1:24 PM CDT [facility] Cannabinoids Screen Urine Negative Negative: <50 ng/mL 03/03/2025 1:24 PM CDT [facility] Methadone Screen Urine Negative Negative: < 300 ng/mL 03/03/2025 1:24 PM T [facility] Fentanyl Screen Urine Negative Negative: <1.5 ng/mL 03/03/2025 1:24 PM CDT [facility] Urine URINE / Unknown Collection / Unknown 03/03/2025 12:34 PM CDT 03/03/2025 12:39 PM CDT [facility] - 03/03/2025 1:24 PM CDT The Urine Toxicology Screening Panel does not screen for Propoxyphene, Meprobamate, Carisoprodol, Trazodone, wfpq-wwk-sxspiqv medications and/or volatiles (Acetone, Isopropanol, Methanol or Ethylene Glycol). Ethanol, Salicylate, Acetaminophen, Tricyclic Antidepressants and several therapeutic drugs may be individually assayed in serum or plasma specimen. Toxicology testing by the [facility] is an aid to medical diagnosis and treatment of patients. No documented chain of custody was maintained. Results are intended to be used for clinical purposes only. Pramod Torres DO LAB - URINE CHEMISTRY ORDERABL ES Final Result [place] [id number] [place] [address], [facility] [phone] * VANCOMYCIN LEVEL RANDOM (03/03/2025 5:00 AM CDT) Only the most recent of3 resultswithin the time period is included. Vancomycin Random 17.1 Therapeutic Ranges not established for random specimens ug/mL 03/03/2025 6:06 AM CDT [facility] Blood BLOOD SPECIMEN / Unknown Lab Venipuncture / Unknown 03/03/2025 5:00 AM CDT 03/03/2025 5:31 AM CDT Narrative [facility] - 03/03/2025 6:06 AM CDT See institution protocol. us Pramod Torres DO LAB - CHEMISTRY ORDERABLES Fin al Result Performing Organization Address City/[facility]/ZIP Co de Phone Number [address] [address], [place] [phone] * MRSA PCR (03/02/2025 8:47 AM CDT) [facility] MRSA DNA by PCR Not detected Not detected 03/02/2025 3:41 PM CDT [facility] Microbiology SPECIMEN FROM NASAL FOSSAE / Unknown Collection / Unknown 03/02/2025 8:47 AM CDT 03/02/2025 8:52 AM CDT Narrative [facility] - 03/02/2025 3:41 PM CDT Methicillin-resistant Staphylococcus aureus (MRSA) DNA is not detected (presumed not colonized with MRSA). us Shira Harris MD LAB - MICROBIOLOGY ORDERABLES Fi nal Result Performing Organization Address [facility] Co de Phone Number [facility] [address] [place] [address], [facility] [phone] * MONONUCLEOSIS SCREEN (03/02/2025 5:34 AM CDT) [facility] Mononucleosis Qualitative Negative Negative 03/02/2025 6:42 AM CDT [facility] Blood BLOOD SPECIMEN / Unknown Lab Venipuncture / Unknown 03/02/2025 5:34 AM CDT 03/02/2025 6:11 AM CDT us Shira Harris MD LAB - CHEMISTRY ORDERABLES Final Result Performing Organization Address [facility]/ZIP Co de Phone Number [address] [address], [place] [phone] * (ABNORMAL) BLOOD CULTURE ID PANEL (03/02/2025 5:33 AM CDT) [facility] Enterococcus faecalis Detected(A) Not detected 03/03/2025 10:33 AM CDT [facility] Van A/B Vancomycin Resistance Not detected Not detected 03/03/2025 10:33 AM T [facility] Comment:Results indicate van comycin-susceptible Enterococcus faecalis. Louisa/B not detected. Blood PERIPHERAL BLOOD / Unknown Lab Venipuncture / Unknown 03/02/2025 5:33 AM CDT 03/02/2025 6:06 AM CDT Narrative [facility] - 03/03/2025 10:33 AM CDT Blood Culture ID Panel performed by [employer] multiplex PCR. The Test panel includes: Gram [...] and MREJ (methicillin-resistance - MRSA), NDM ([place] glhnjbz-hmla-omadqqmzi), OXA-48-like (oxacillinase beta-lactamase),Louisa/B (vancomycin-resistance), VIM (Sangeeta Intergrom-Encoded Metallo beta-lactamase). Shira Harris MD LAB - MICROBIOLOGY ORDERABLES Fi nal Result [facility] [address] [place] [address], [facility] [phone] from Last 3 Months Insurance ANTHEM Advance Directives * Full Code (Latest Code Status on File) Date Activated Date Inactivated Comments 03/01/2025 10:01 PM 03/23/2025 4:41 PM Care Teams Human Services Case Manager Relationship Specialty Start Date End Date Carlos Ventura MD [address] [place] [address] PCP - General Internal Medicine 03/17/25
== END 2025-04-03 10:58 | disposition home or self-care (01) ==
LOC: CHSHH 11:02
DX: Z48.812 Encounter for surgical aftercare following surgery on the circulatory system (principal); Z95.2 Presence of prosthetic heart valve; Z79.02 Long term (current) use of antithrombotics/antiplatelets
CPT/HCPCS: 36415; 85610

== ENCOUNTER 2025-04-05 12:49 | Outpatient (NON) | payer BC, SELFPAY ==
--- OUTSIDE RECORDS SUMMARY | 2025-04-04 09:42 | XMS_ITS | Encounter Summary ---
Author Organization [facility] Address [address] [place] [address] Care Team Providers Care Paper Bag Press Operator Name Role Phone Carlos Ventura MD Primary Care Provider [phone] Encounter Details Date Type Department Care Team (Latest Contact Info) Description 04/04/2025 9:42 AM CDT - 04/04/2025 11:59 PM CDT Hospital Encounter [facility] DIAGNOSTIC RAD OP [address] [place] [phone] Ofelia Mckee, DIAMOND MERCHANT-SHAKE PACKER [address] [place] [phone] Discharge Disposition: Home or Self Care Social History Tobacco Use Types Packs/Day Years [...] hard is it for you to pa karthik for the very basics like food, housing, medical care, and heating? Not hard at all 03/01/2025 [facility] [place] of Occupat ional Health - Occupational Stress [...] any time in the past 12 m [facility], were you homeless or living in a retirement (including now)? 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 Answer Date of Assessment Author No 03/02/2025 1:26 PM FLORENCET Leela Sanchez RN * Is person blind or have serious difficulty seeing? Answer Date of Assessment Author No 03/02/2025 1:26 PM [place]ORENCET Leela Sanchez RN * Does person have serious difficulty walking/climbing stairs? Answer Date of Assessment Author No 03/02/2025 1:26 PM FLORENCET Leela Sanchez RN * Does person have difficulty dressing/bathing? Answer Date of Assessment Author No 03/02/2025 1:26 PM CDT Alejandra Sanchez RN * Does person have difficulty doing errands alone? Answer Date of Assessment Author No 03/02/2025 1:26 PM CDT Leela Sanchez RN documented as of this encounter Mental Status * Does person have difficulty concentrating/remembering/making decisions? Answer Entry Date Author No 03/02/2025 1:26 PM CDT Leela Sanchez RN documented in this encounter Medications at Time of Discharge ampicillin 2 g in NaCl IV 0.9 % 100 mL - IV ampicillin 2g every 8 hours (renally dosed), consider continuous infusion outpatient to help with easier administration. - Duration of therapy 6 weeks from date of MVR, 03/15/2025 - EOT 04/26/2025. - Weekly labs: CBC w/ diff, CMP, please fax results to [facility] Infectious disease clinic, fax [phone], Marques Cabello PA-C 03/21/2025 aspirin (Aspirin) 81 MG chew tablet Take [...] w/ diff, CMP, please fax results to [facility] Infectious disease clinic, fax [phone], Marques Cabello PA-C 03/21/2025 omeprazole (PriLOSEC) 40 MG capsule Take 1 (one) capsule by mouth daily before breakfast warfarin (Coumadin) 2 MG tablet Take 6 mg daily 30 tablet 1 04/04/2025 documented as of this encounter Plan of Treatment Upcoming Encounters Date Type Department Care Team (Late st Contact Info) Description 04/18/2025 10:15 AM CDT Office Visit [facility] - Cardiothoracic Surgery [address] [facility], [place] [address] Ofelia Mckee, DIAMOND MERCHANT-SHAKE PACKER [address] [place] [address] Rahul Hernandez MD [address] [place] [address] [address] [place] [address] 04/18/2025 1:00 PM CDT Appointment [facility] Vascular Care [address] [place] [address] Rahul Hernandez MD [address] [place] [address] [address] [place] [address] 04/20/2025 8:30 AM CDT Office Visit [facility] - Infectious Disease [address] [place] [address], [place] [address] Yesica Cabello PA-C [address] [place] [address] 05/01/2025 9:00 AM CDT Appointment [facility] IVR [address] [place] [address] Garcia Gil MD [address] [place] [address] documented as of this encounter Procedures Procedure Name Priority Date/Time Associated Diagnosis Comments XR CHEST 2VW Routine 04/04/2025 9:46 AM CDT S/P MVR (mitral valve replacement) documented in this encounter Results * XR Chest 2Vw (04/04/2025 9:46 AM CDT) Anatomical Region Laterality Modality Chest Digital Radiogra phy 04/05/2025 12:3 2 AM CDT Impressions 04/05/2025 12:33 AM CDT IMPRESSION: Postsurgical changes of mitral valve replacement are redemonstrated, characterized by median sternotomy plates, screws, and wires, and a mitral valve prosthesis. New right internal jugular central venous catheter is in the superior vena cava No focal consolidation or pleural effusion. No pneumothorax. The cardiomediastinal silhouette is stable. Degenerative changes are noted in the thoracic spine. > Interpreting Provider: Jamie Barriga MD on 04/05/2025 12:33 AM Narrative 04/05/2025 12:33 AM CDT PROCEDURE: XR CHEST 2VW DATE/TIME OF EXAM: 04/04/2025 9:46 AM CLINICAL INFORMATION: None relevant/not provided if blank. Indication: Z95.2: S/P MVR (mitral valve replacement) Additional History: COMPARISON: 03/22/2025, XR CHEST 1VW PORTABLE Procedure Note Jamie Barriga MD - 04/05/2025 PROCEDURE: XR CHEST 2VW DATE/TIME OF EXAM: 04/04/2025 9:46 AM CLINICAL INFORMATION: None relevant/not provided if blank. Indication: Z95.2: S/P MVR (mitral valve replacement) Additional History: COMPARISON: 03/22/2025, XR CHEST 1VW PORTABLE IMPRESSION: Postsurgical changes of mitral valve replacement are redemonstrated, characterized by median sternotomy plates, screws, and wires, and amitral valve prosthesis. New right internal jugular central venous catheter is in the superiorvena cava No focal consolidation or pleural effusion. No pneumothorax. The cardiomediastinal silhouette is stable. Degenerative changes are notedin the thoracic spine. > Interpreting Provider: Jamie Barriga MD on 04/05/2025 12:33 AM Ofelia Mckee DIAMOND MERCHANT-SHAKE PACKER DIAGNOSTIC IMAGING OR DERABLES Final Result documented in this encounter Visit Diagnoses Diagnosis S/P MVR (mitral valve replacement) Heart valve replaced by other means documented in this encounter Care Teams Paper Bag Press Operator Relationship Specialty Start Date End Date Carlos Ventura MD [address] [place] [id number] PCP - General Internal Medicine 03/17/25 documented as of this encounter
--- OUTSIDE RECORDS SUMMARY | 2025-04-04 10:30 | XMS_ITS | Encounter Summary ---
Author Organization [facility] Address [address] [facility] [place] [address] Care Team Providers Care Last Repairer Name Role Phone Carlos Ventura MD Primary Care Provider [phone] Reason for Referral * Cardiac (Routine) - Open Specialty Diagnoses / Procedures Referred By Contac t Referred To Contact Diagnoses S/P MVR (mitral valve replacement) Procedures ECHO COMPLETE WA TTE W/DOPPLER, COMPLETE WA TTE W/O DOPPLER, COMPLETE Rahul Hernandez MD [address] [facility] [address] [place] [address] Phone: tel: fax: Referral ID Status Reason Start Date Expiration Date Visits Re quested Visits Authorized [id number] Open 04/04/2025 04/04/2026 1 1 Reason for Visit * Reason Comments Post-Op Encounter Details Date Type Department Care Team (Late st Contact Info) Description 04/04/2025 10:30 AM CDT Office Visit [facility] - Cardiothoracic Surgery [address] [facility], [place] [phone] Ofelia Mckee, PUG MACHINE OPERATOR-RECYCLING COLLECTIONS DRIVER [address] [place] [phone] Rahul Hernandez MD [address] [facility] [address] [place] [address] S/P MVR (mitral valve replacement) (Primary Dx) Social History Tobacco Use Types Packs/Day Years Used Date Smoking Tobacco: Never Smokeless Tobacco: Never Passive Exposure Comments:lily ana states he has never smoked Alcohol Use [...] and heating? Not hard at all 03/01/2025 [facility] [place] of Occupat ional Health - Occupational Stress [...] any time in the past 12 m [facility], were you homeless or living in a long-term (including now)? 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.] Leela Sanchez RN documented in this encounter Patient Instructions * Patient Instructions* Alma Rosa Rodriguez RN - 04/04/2025 11:29 AM CDT We will see you back in the office on 04/18/25 at 1015 am for your next appointment. We have made the following changes to your medications at this time: you can stop taking your Lasix and Potassium. Start taking your Coumadin 6 mg daily and we would like a repeat INR on Thursday. We have scheduled you for the following tests: ___ TransThoracic Echo The appointment is scheduled for 04/18/25 starting at 1 pm with a 1240 pm arrival. These tests are scheduled at: [facility] [address] [place] [id number] You will check in at Outpatient Registration located on the Ground Floor near the [place] entrance If you can not make this appointment please call to reschedule. If your appointment is at [facility] please call [phone]. If your test is scheduled at another [facility] facility please call [phone] and follow the prompts. If you have any questions, please reach out to our office at [phone] and follow the prompts. Thank you for allowing us to be a part of your healthcare team. documented in this encounter Plan of Treatment Upcoming Encounters Date Type Department Care Team (Late st Contact Info) Description 04/18/2025 10:15 AM CDT Office Visit [facility] - Cardiothoracic Surgery [address] [place] [address], [place] [phone] fOelia Mckee, PUG MACHINE OPERATOR-RECYCLING COLLECTIONS DRIVER [address] [place] [phone] Rahul Hernandez MD [address] [place] [address] [address] [place] [address] 04/18/2025 1:00 PM CDT Appointment [facility] Health Heart & Vascular Care [address] [place] [address] Rahul Hernandez MD [address] [place] [address] [address] [place] [address] 04/20/2025 8:30 AM CDT Office Visit [facility] - Infectious Disease [address] [facility], [place] [phone] Yesica Cabello PA-C [address] [place] [address] 05/01/2025 9:00 AM CDT Appointment [facility] IVR [address] [place] [address] Garcia Gil MD [address] [place] [address] Scheduled Orders Name Type Priority Associated Diagnoses Order Schedule ECHO COMPLETE Echocardiography Cupid Routine S/P MVR (mitral valve replacement) 1 Occurrences starting 04/04/2025 until 04/04/2026 documented as of this encounter Visit Diagnoses Diagnosis S/P MVR (mitral valve replacement)- Primary Heart valve replaced by other means documented in this encounter Care Teams Last Repairer Relationship Specialty Start Date End Date Carlos Ventura MD [address] [place], [place] [id number] PCP - General Internal Medicine 03/17/25 documented as of this encounter
--- OUTSIDE RECORDS SUMMARY | 2025-04-05 12:59 | XMS_ITS | Encounter Summary ---
Author Organization [facility] Address [address] [place] [address] Care Team Providers Care Food Consultant Name Role Phone Carlos Ventura MD Primary Care Provider [phone] Encounter Details Date Type Department Care Team (Latest Contact Info) Description 04/04/2025 Travel Social History Tobacco Use Types Packs/Day Years [...] and heating? Not hard at all 03/01/2025 [facility] [place] [facility] - Occupational Stress [...] in a senior living (including now)? No 03/01/2025 Sex and Gender Information Value Date Recorded Sex Assigned at Not on file Legal Sex Male 10:10 AM [employer] Gender Identity Not on file Sexual Orientation Not on file documented as of this encounter Functional Status * Is person deaf or have serious hearing difficulty? Answer Date of Assessment Author No 03/02/2025 1:26 PM Leela Tariq RN * Is person blind or have serious difficulty seeing? Answer Date of Assessment Author No 03/02/2025 1:26 PM Leela Tariq RN * Does person have serious difficulty walking/climbing stairs? Answer Date of Assessment Author No 03/02/2025 1:26 PM Leela Tariq RN * Does person have difficulty dressing/bathing? Answer Date of Assessment Author No 03/02/2025 1:26 PM Leela Tariq RN * Does person have difficulty doing errands alone? Answer Date of Assessment Author No 03/02/2025 1:26 PM Leela Tariq RN documented as of this encounter Mental Status * Does person have difficulty concentrating/remembering/making decisions? Answer Entry Date Author No 03/02/2025 1:26 PM Leela Tariq RN documented in this encounter Plan of Treatment Upcoming Encounters Date Type Department Care Team (Late st Contact Info) Description 04/18/2025 10:15 AM CDT Office Visit [facility] - Cardiothoracic Surgery [address], [place] [address] Ofelia Mckee, HYDRO MECHANIC[employer] APPLICATION DEVELOPER [address] [place] [address] Rahul Hernandez MD [address] [place] [address] [address] [place] [address] 04/18/2025 1:00 PM CDT Appointment [facility] [address] [place] [address] Rahul Hernandez MD [address] [place] [address] [address] [place] [address] [place] [address] 04/20/2025 8:30 AM CDT Office Visit [facility] - Infectious Disease [facility] [place] [address] Yesica Cabello PA-C [address] [place] [id number] 05/01/2025 9:00 AM CDT Appointment [facility] [address] [place] [address] Garcia Gil MD [facility] [place] [address] documented as of this encounter Visit Diagnoses Not on filedocumented in this encounter Care Teams Food Consultant Relationship Specialty Start Date End Date Carlos Ventura MD [address] [place] [address] PCP - General Internal Medicine 03/17/25 documented as of this encounter
--- OUTSIDE RECORDS SUMMARY | 2025-04-05 12:59 | XMS_ITS | Clinical Summary ---
Author Organization [employer] [facility] Address [address] 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,non-owned Affiliates and Associated Physician Practices is amultiple site organization consisting of ambulatory clinics and hospital sitesin [place], [place], [place] and [place]. This disclosure is being madepursuant to the Care Everywhere program and may not contain all information available regarding this patient. Last updated 18.[employer]er Allergies No known active allergies Medications * [...] w/ diff, CMP, please fax results to [facility], fax [phone], Attn Yesica Cabello PA-C 025 2024 Active ampicillin 2 g in NaCl IV 0.9 % 100 mL - IV ampicillin 2g every 8 hours (renally dosed), consider continuous infusion outpatient to help with easier administration. - Duration of therapy 6 weeks from date of MVR, 03/15/2025 - EOT 04/26/2025. - Weekly labs: CBC w/ diff, CMP, please fax results to [facility], fax [phone], Attn Yesica Cabello PA-C 025 2024 Active aspirin (Aspirin) 81 MG chew tablet Take 1 (one) tablet by mouth once daily (chew and swallow) 30 tablet 03/23/20 11:32 AM CDT Active warfarin (Coumadin) 2 MG tablet Take 6 mg daily 30 tablet 1 Active amLODIPine (Norvasc) 5 MG tablet Take [...] results. Starting 04/05/25, the [facility]ticoagulation [facility] at [facility] will be dosing your warfarin 60 tablet 03/23/20 11:32 AM CDT 2024 Discontinued furosemide (Lasix) 20 MG tablet Take 1 (one) tablet by mouth once daily for 30 days 30 tablet 03/23/20 11:32 AM CDT 025 2024 Discontinued(T x Complete) potassium chloride ER 10 MEQ tablet Take 1 (one) tablet by mouth once daily for 30 days Stop taking when no longer taking furosemide/Lasix 30 tablet 03/23/20 11:32 AM CDT 025 2024 Discontinued(T x Complete) warfarin (Coumadin) 2 MG tablet Take 4 mg M/W/ and 6 mg T/Th/Sa/Lopez 2024 Discontinued Active Problems Problem Noted Date [...] for CTS Pre-OP evaluation - F/u labs 8 am Assessment & Plan (03/12/2025 11:01 AM [...] improved renal function) - CTS scheduled surgery 8/27, would still like to do multicenter rounds [...] valve with severe mitral regurgitation. Per SINTIA, [facility] recommends multi team consult for approved [...] Encounters Date Type Department Care Team Description 04/04/2025 10:30 AM CDT Office Visit [facility] - Cardiothoracic Surgery [address] [place] [address], [place] [id number] Ofelia Mckee, WILDLIFE POLICY PROFESSIONAL-Rahul Avelar MD S/P MVR (mitral valve replacement) (Primary Dx) 04/04/2025 9:42 AM CDT - 04/04/2025 11:59 PM CDT Hospital Encounter [facility] [address] [place] [address] Ofelia Mckee, WILDLIFE POLICY PROFESSIONAL-RADIOLOGY SERVICES MANAGER Discharge Disposition: Home or Self Care 04/04/2025 Travel 03/27/2025 Orders Only [facility] - Cardiothoracic Surgery [address] [facility], [place] [address] Alma Rosa Rodriguez RN 03/24/2025 Telephone [facility] - Infectious Disease [address] [place] [address], [facility] [place] [address] Yesica Cabello PA-C Appointment 03/15/2025 11:24 AM CDT Anesthesia Event [facility] [address] [place] [address] Alexa Page MD Polhemus, Kyle, MD 03/15/2025 8:55 AM CDT - 03/15/2025 2:40 PM CDT Surgery [facility] [address] [place] [phone] Rahul Hernandez MD Mitral valve replacement 03/15/2025 6:25 AM CDT Ancillary Procedure [facility] [address] [place] [address] Cornelia Serra MD Heis, Farah, MD 03/10/2025 8:54 AM CDT - 03/10/2025 10:10 AM CDT Surgery [facility] - Cardiac Asic Engineer [address] [place] [address] Selene Duran MD Left Heart Cath 03/09/2025 6:03 PM CDT Anesthesia Event [facility] [address] [place] [address] Prakash De La Torre, Carlitos Flores, DIANDRA 03/09/2025 5:45 PM CDT - 03/09/2025 7:28 PM CDT Surgery [facility] [address] [place] [address] Sedic, Vedrcarlos, DMD EXTRACTION DENTAL (MULTIPLE) 2025 9:22 AM CDT - 2025 11:59 PM CDT Hospital Encounter [facility] - Cardiac Asic Engineer [address] [place] [address] Pramod Torres, Shira Cantu MD Discharge Disposition: Home or Self Care 03/01/2025 9:44 PM CDT - 03/23/2025 3:36 PM CDT Hospital Encounter [facility] ACUTE [address] [place] [address] Shira Harris MD Mayer, Joshua C, Adalberto Michele MD Eshetu, Nebiyu A, MD Lawrance, Rahul Santillan MD Cardiothoracic Surgery Discharge Disposition: Home Health Care [facility] 03/01/2025 Travel 03/01/2025 Telephone [facility] [address] [place] [address] Shira Harris MD General (OSH transfer) 03/01/2025 Telephone [facility] INTERNAL MED [facility] [place] [address] Freddy Velazquez MD Hospital Admission from Last [...] and heating? Not hard at all 03/01/2025 [facility] [place] [facility] Occupat ional Health - Occupational Stress [...] time in the past 12 m [facility], were you homeless or living in a [place] health care facility (including now)? 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 Gender Identity Not on file Sexual Orientation Not on file Last Filed Vital Signs Vital Sign Reading Time Taken Comments Blood Pressure 127/84 04/04/2025 11:09 AM CDT Pulse 108 04/04/2025 11:09 AM CDT Temperature 36.7 C (98.1 F) 04/04/2025 11:04 AM CDT Respiratory Rate 20 03/23/2025 11:26 AM CDT Oxygen Saturation 97% 04/04/2025 11:04 AM CDT Inhaled Oxygen Concentration 40% 03/15/2025 9 :00 PM CDT Weight 83 kg (183 lb) 04/04/2025 11:04 AM CDT Height 167.6 cm (5' 6) 04/04/2025 11:04 AM CDT Body Mass Index 29.54 04/04/2025 11:04 AM CDT Plan of Treatment Upcoming Encounters Date Type Department Care Team (Late st Contact Info) Description 04/18/2025 10:15 AM CDT Office Visit [facility] - Cardiothoracic Surgery [address] [place] [address] Ofelia Mckee, WILDLIFE POLICY PROFESSIONAL-RADIOLOGY SERVICES MANAGER [address] [place] [address] Rahul Hernandez MD [address] [place] [address] [address] [place] [address] 04/18/2025 1:00 PM CDT Appointment [facility] [address] [place] [address] Rahul Hernandez MD [address] [place] [address] [address] [place] [address] 04/20/2025 8:30 AM CDT Office Visit [facility] - Infectious Disease [address] [place] [phone] Yesica Cabello PA-C [address] [place] [address] 05/01/2025 9:00 AM CDT Appointment [facility] [address] [place] [address] Garcia Gil MD [address] [place] [address] Health Maintenance Due Date Last Done Comments [...] series) 2020 DEPRESSION SCREENING 07/20/2024 COVID-19 VACCINE (1 - season) 2025 INFLUENZA VACCINE (#1) 2025 SCREENING [...] this topic Medical Devices Implanted Type Area Blast Furnace Keeper Device Identifier Shelf Expiration Date Model / Serial / Lot Ndl Sut 3 Blnt Cut Cbl Strl Spnl Ss Implanted:Qty: 1 on 03/15/2025 by Rahul Hernandez MD at [facility] N/A: Sternum [employer] 08/17/2029 [id number] / / [id number] Plate 6 Hl O Cncv Bone Lf Nonster Implanted:Qty: 1 on 03/15/2025 by Rahul Hernandez MD at [facility] N/A: Sternum [employer] 115.604.06 / / Screw 14mm Lck Nonster Bone Lf Implanted:Qty: 6 on 03/15/2025 by Rahul Hernandez MD at [facility] N/A: Sternum [employer] 100.035.14 / / Screw 16mm Lck Nonster Bone Lf Implanted:Qty: 6 on 03/15/2025 by Rahul Hernandez MD at [facility] N/A: Sternum [employer] 100.035.16 / / Screw 18mm Lck Nonster Bone Lf Implanted:Qty: 6 on 03/15/2025 by Rahul Hernandez MD at [facility] N/A: Sternum [employer] 100.035.18 / / Valve Mtrl 31mm Resilia - [id number] Implanted:Qty: 1 on 03/15/2025 by Rahul Hernandez MD at [facility] N/A: Mitral Valve [employer]ation [employer] 10/12/2029 [id number] / [id number] / Ndl Sut 3 Blnt Cut Cbl Strl Spnl Ss Implanted:Qty: 1 on 03/15/2025 by Rahul Hernandez MD at [facility] N/A: Sternum [employer] [id number] / / Plate Bone H 6 Hl Nonster Lf Implanted:Qty: 2 on 03/15/2025 by Rahul Hernandez MD at [facility] N/A: Sternum [employer] 115.102.06 / / Explanted Type Area Blast Furnace Keeper Device Identifier Shelf Expiration Date Model / Serial / Lot Plate Bone H 6 Hl Nonster Lf Explanted:Qty: 2 on 03/15/2025 by Rahul Hernandez MD at [facility] N/A: Mitral Valve [employer] 115.102.06 / / Description:no cost implant per rep; doc pay once program Plate 6 Hl O Cncv Bone Lf Nonster Explanted:Qty: 1 on 03/15/2025 by Rahul Hernandez MD at [facility] N/A: Mitral Valve [employer] 115.604.06 / / Description:no cost implant per rep; doc pay once program Screw 14mm Lck Nonster Bone Lf Explanted:Qty: 6 on 03/15/2025 by Rahul Hernandez MD at [facility] N/A: Mitral Valve [employer] 100.035.14 / / Description:no cost implant per rep; doc pay once program Screw 16mm Lck Nonster Bone Lf Explanted:Qty: 6 on 03/15/2025 by Rahul Hernnadez MD at [facility] N/A: Mitral Valve [employer] 100.035.16 / / Description:no cost implant per rep; doc pay once program Screw 18mm Lck Nonster Bone Lf Explanted:Qty: 6 on 03/15/2025 by Rahul Hernandez MD at [facility] N/A: Mitral Valve [employer] 100.035.18 / / Description:no cost implant per rep; doc pay once program Procedures Procedure Name Priority Date/Time Associated Diagnosis Comments XR CHEST 2VW Routine 04/04/2025 9:46 AM CDT S/P MVR (mitral valve replacement) APHERESIS/TRANSFUSION ORDER 03/24/2025 12:11 PM CDT COMPREHENSIVE [...] stage 5, GFR less than 15 ml/min ([facility]) XR CHEST 1VW PORTABLE Routine [...] CDT ACT PLUS - POCT ([facility]) Routine 03/15/2025 3:17 PM CDT BLOOD GAS+COOX+LYTES+METAB [...] PM CDT ACT PLUS - POCT ([facility]) Routine 03/15/2025 2:39 PM CDT FIBRINOGEN ACTIVITY STAT 03/15/2025 2 :34 PM CDT Mitral valve vegetation (HCC) PLATELET COUNT AUTO CITRATED BLOOD STAT 03/15/2025 2:33 PM CDT Mitral valve vegetation (HCC) ACT PLUS - POCT ([facility]) Routine 03/15/2025 2:07 PM CDT BLOOD GAS+COOX+LYTES+METAB ARTERIAL POCT Routine 03/15/2025 2:06 PM CDT PATHOLOGY TISSUE Routine 03/15/2025 1:53 PM CDT Mitral valve insufficiency, unspecified etiology BLOOD GAS+COOX+LYTES+METAB ARTERIAL POCT Routine 03/15/2025 1:30 PM CDT ACT PLUS - POCT ([facility]) Routine 03/15/2025 1:29 PM CDT BLOOD GAS+COOX+LYTES+METAB ARTERIAL POCT Routine 03/15/2025 1:15 PM CDT ACT PLUS - POCT ([facility]) Routine 03/15/2025 1:14 PM CDT ACT PLUS - POCT ([facility]) Routine 03/15/2025 1:04 PM CDT ACT PLUS - POCT ([facility]) Routine 03/15/2025 12:53 PM CDT BLOOD GAS+COOX+LYTES+METAB ARTERIAL POCT Routine 03/15/2025 12:52 PM CDT ACT PLUS - POCT ([facility]) Routine 03/15/2025 12:44 PM CDT BLOOD GAS+COOX+LYTES+METAB ARTERIAL POCT Routine 03/15/2025 12:33 PM CDT PULMONARY ARTERY CATHETER NOTE Routine 03/15/2025 12:19 PM CDT PULMONARY ARTERY CATHETER NOTE Routine 03/15/2025 12:19 PM CDT CENTRAL LINE NOTE Routine 03/15/2025 12:19 PM CDT ENDOTRACHEAL TUBE NOTE Routine 03/15/2025 12:18 PM CDT ARTERIAL LINE NOTE Routine 03/15/2025 12:18 PM CDT NM REPLACEMENT OF MITRAL VALVE 03/15/2025 11:04 AM [...] TUBE NOTE Routine 03/09/2025 6:28 PM CDT NM DENTAL SURGERY PROCEDURE 03/09/2025 5:37 PM CDT Infection Case Notes DOCTOR SEDIC WILL BE TO [facility] AND AVAILABLE TO OPERATE AT 1600. US [...] CDT from Last 3 Months Results * XR Chest 2Vw (04/04/2025 9:46 [...] MD on 04/05/2025 12:33 AM Ofelia Mckee WILDLIFE POLICY PROFESSIONAL-RADIOLOGY SERVICES MANAGER DIAGNOSTIC IMAGING OR DERABLES Final Result * APHERESIS/TRANSFUSION ORDER (03/24/2025 12:11 PM CDT) Narrative 03/24/2025 12:11 PM CDT Ordered by an unspecified provider. Scanned Document NURSING - VITAL SIGNS AND ASSES SMENT Final Result * (ABNORMAL) CALCIUM IONIZED WHOLE BLOOD (03/23/2025 12:54 AM CDT) Only the most recent of10 resultswithin the time period is included. Calcium Ionized 1.16 mmol/L 03/23/2025 1:17 AM CDT [facility] pH 7.41 7.35 - 7.45 pH 03/23/2025 1:17 AM CDT [facility] Ionized Calcium pH Adjusted 1.16(L) 1.19 - 1.34 mmol/L 03/23/2025 1:17 AM CDT [facility] Blood BLOOD SPECIMEN / Unknown Lab Venipuncture / Unknown 03/23/2025 12:54 AM CDT 03/23/2025 1:12 AM CDT Mariya Botello PA-C LAB - CHEMISTRY ORDERABLES F inal Result [facility] [address] [place] [address], [facility] [phone] * (ABNORMAL) PT-INR (03/23/2025 12:54 AM CDT) Only the most recent of8 resultswithin the time period is included. PT 15.9(H) 12.1 - 14.8 Seconds 03/23/2025 1:37 AM CDT [facility] INR 1.3 See Comment 03/23/2025 1:37 AM T [facility] Comment:The suggested therap eutic range for standard coumadin (warfarin) therapy is an INR of 2.0-3.0. For high-risk patients (Mechanical Mitral Valve Prosthesis, etc.), the suggested prophylactic therapeutic range is an INR of 2.5-3.5. Blood BLOOD SPECIMEN / Unknown Lab Venipuncture / Unknown 03/23/2025 12:54 AM CDT 03/23/2025 1:16 AM CDT Rahul Hernandez MD LAB - COAGULATION O RDERABLES Final Result [facility] [address] [place] [address], [facility] [phone] * (ABNORMAL) COMPREHENSIVE METABOLIC PANEL (03/23/2025 12:54 AM [facility]) Only the most recent of22 resultswithin the time period is included. BUN 61(H) 7 - 26 mg/dL 03/23/2025 1:42 AM [facility] Creatinine 2.95(H) 0.71 - 1.16 mg/dL 03/23/2025 1:42 AM [facility] Sodium 135(L) 136 - 145 mmol/L 03/23/2025 1:42 AM [facility] Potassium 4.6(H) 3.5 - 4.5 mmol/L 03/23/2025 1:42 AM [facility] Chloride 102 98 - 107 mmol/L 03/23/2025 1:42 AM [facility] CO2 24 22 - 29 mmol/L 03/23/2025 1:42 AM [facility] Glucose 101(H) 70 - 99 mg/dL 03/23/2025 1:42 AM [facility] Calcium 9.0 8.4 - 10.2 mg/dL 03/23/2025 1:42 AM [facility] Protein Total 7.1 6.0 - 8.3 g/dL 03/23/2025 1:42 AM [facility] Albumin 3.2(L) 3.4 - 5.0 g/dL 03/23/2025 1:42 AM [facility] Bilirubin Total 0.2 0.2 - 1.2 mg/dL 03/23/2025 1:42 AM [facility] Alkaline Phosphatase 168(H) 40 - 150 U/L 03/23/2025 1:42 AM [facility] ALT 67(H) 5 - 55 U/L 03/23/2025 1:42 AM [facility] AST 43(H) 5 - 34 U/L 03/23/2025 1:42 AM [facility] Anion Gap 9 6 - 16 03/23/2025 1:42 AM [facility] BUN/Creatinine Ratio 21 7 - 23 03/23/2025 1:42 AM [facility] Osmolality Calculated 297(H) 275 - 295 mOsm/kg 03/23/2025 1:42 AM [facility] Albumin/Globulin Ratio 0.8(L) 1.1 - 2.3 03/23/2025 1:42 AM [facility] eGFR by CKD-EPI 23(L) >=90 mL/min/1.7 3 m2 03/23/2025 1:42 AM [facility] Comment:Estimated Glomerular Filtration Rate (eGFR) calculated using the CKD-EPI Creatinine Equation (2020), per the National Kidney Foundation and [employer]ph[employer] recommendations. Blood BLOOD SPECIMEN / Unknown Lab Venipuncture / Unknown 03/23/2025 12:54 AM CDT 03/23/2025 1:16 AM CDT Rahul Hernandez MD LAB - CHEMISTRY ORD ERABLES Final Result [address] [address], [facility] [phone] * PHOSPHORUS BLOOD (03/23/2025 12:54 AM CDT) Only the most recent of23 resultswithin the time period is included. Phosphorus 3.7 2.8 - 5.1 mg/dL 03/23/2025 1:42 AM T [facility] Blood BLOOD SPECIMEN / Unknown Lab Venipuncture / Unknown 03/23/2025 12:54 AM CDT 03/23/2025 1:16 AM CDT Mariya Botello PA-C LAB - CHEMISTRY ORDERABLES F inal Result Performing Organization Address City/[facility]/ZIP Co de Phone Number [address] [address], [facility] [phone] * MAGNESIUM BLOOD (03/23/2025 12:54 AM CDT) Only the most recent of23 resultswithin the time period is included. Magnesium 2.0 1.6 - 2.6 mg/dL 03/23/2025 1:42 AM [facility] Blood BLOOD SPECIMEN / Unknown Lab Venipuncture / Unknown 03/23/2025 12:54 AM CDT 03/23/2025 1:16 AM CDT Mariya Botello PA-C LAB - CHEMISTRY ORDERABLES F inal Result [facility] [address] [place] [address], [facility] [phone] * (ABNORMAL) CBC W/O DIFFERENTIAL (03/23/2025 12:53 AM CDT) Only the most recent of13 resultswithin the time period is included. WBC 12.0(H) 4.0 - 10.7 x10E9/L 03/23/2025 1:22 AM [facility] RBC Count 3.22(L) 4.30 - 5.80 x10E12/L 03/23/2025 1:22 AM [facility] Hemoglobin 9.1(L) 13.3 - 17.5 g/dL 03/23/2025 1:22 AM [facility] Hematocrit 29.0(L) 38.7 - 51.1 % 03/23/2025 1:22 AM [facility] MCV 90.1 80.0 - 98.0 fL 03/23/2025 1:22 AM [facility] MCH 28.3 26.7 - 33.6 pg 03/23/2025 1:22 AM [facility] MCHC 31.4(L) 31.7 - 36.3 g/dL 03/23/2025 1:22 AM [facility] RDW-CV 19.8(H) 11.3 - 14.8 % 03/23/2025 1:22 AM [facility] Platelet Count 334 150 - 420 x10E9/L 03/23/2025 1:22 AM CDT [facility] MPV 10.2 7.8 - 11.4 fL 03/23/2025 1:22 AM CDT [facility] Blood BLOOD SPECIMEN / Unknown Lab Venipuncture / Unknown 03/23/2025 12:53 AM CDT 03/23/2025 1:15 AM CDT Mariya Botello PA-C LAB - HEMATOLOGY ORDERABLES Final Result [facility] [address] [place] [address], [facility] [phone] * IR Central Line Insert Tunnel (03/22/2025 [...] stage 5, GFR less than 15 ml/min ([facility]) Additional History: Cartographic Drafter: Garcia Gil MD COMPARISON: None. FLUOROSCOPY DOSE: [...] evaluation, please review the evaluation forms in [facility]. For details on monitored clinical parameters during the intra-service sedation time, please review the procedure nurse documentation in [facility]. I was present for the Entire procedure. Procedure Note Garcia Gil MD - 03/22/2025 PROCEDURE: IR CENTRAL LINE INSERT TUNNEL DATE/TIME OF EXAM: 03/22/2025 12:53 PM CLINICAL INFORMATION: None relevant/not provided if blank. Indication: R09.89: Endocarditis, suspected N18.5: CKD (chronic kidney disease) stage 5, GFR less than 15 ml/min([facility]) Additional History: Cartographic Drafter: Garcia Gil MD COMPARISON: None. FLUOROSCOPY DOSE: [...] response to care. Intra-service sedation start time [id number] and end time was 1228 during which I was present. Total physician intra-service sedation time was 14 minutes. For details on pre-moderate sedation and post-moderate sedation patient evaluation, please reviewthe evaluation forms in [facility]. For details on monitored clinical parameters during the intra-service sedation time, please review the procedurenurse documentation in [facility]. I was present for the Entire procedure. [...] DATE/TIME OF EXAM: 03/22/2025 4:27 AM, LOCATION [facility] INDICATION: I34.0: Mitral valve insufficiency, unspecified etiology [...] spine. Report dictated by Jamie Rucker MD, (doctor of radiology). > Dictated by Ink Blender I, Jamie Barriga MD have personally reviewed and interpreted this examination/study. > Interpreting Provider: Jamie Barriga MD on 03/22/2025 7:08 PM Procedure Note Jamie Barriga MD - 03/22/2025 PROCEDURE: XR CHEST 1VW PORTABLE, DATE/TIME OF EXAM: 03/22/2025 4:27 AM, LOCATION [facility] INDICATION: I34.0: Mitral valve insufficiency, unspecified etiology [...] spine. Report dictated by Jamie Rucker MD, (doctor of radiology). > Dictated by Ink Blender I, Jamie Barriga MD have personally reviewed and interpreted this examination/study. > Interpreting Provider: Jamie Barriga MD on 03/22/2025 7:08 PM [place] Suhail WILDLIFE POLICY PROFESSIONAL-RADIOLOGY SERVICES MANAGER DIAGNOSTIC IMAGI NG ORDERABLES Final Result * EKG 12-Lead (03/20/2025 12:00 PM CDT) Only the most recent of7 resultswithin the time period is included. Ventricular Rate 125 BPM [facility] Atrial Rate 125 BPM [facility] QRS Duration ms 90 ms [facility] Q-T Interval ms 336 ms [facility] QTC Calculation (Bezet) 484 ms [facility] Calculated P Page 55 degrees [facility] M[facility] Calculated R Page 69 degrees SL MUSE Calculated T Page 55 degrees [facility] M[facility] Interpretation EKG SINUS TACHYCARDIA NONSPECIFIC ST ABNORMALITY ABNORMAL ECG WHEN COMPARED WITH ECG OF 20-MAR-2025 11:59, SINUS TACHYCARDIA HAS REPLACED JUNCTIONAL RHYTHM Confirmed by PRASAD LOUIS MD ([id number]) on 03/26/2025 10:12:19 PM [facility] 03/20/2025 12:0 0 PM CDT 03/26/2025 10:12 PM CDT Yousuf Chaudhari PA-C ECG ORDERABLES Edited Resu lt - Final [facility] * (ABNORMAL) BASIC METABOLIC PANEL (CALCIUM TOTAL) (03/19/2025 8:44 PM CDT) Only the most recent of3 resultswithin the time period is included. BUN 54(H) 7 - 26 mg/dL 03/19/2025 9:27 PM CDT [facility] Creatinine 2.92(H) 0.71 - 1.16 mg/dL 03/19/2025 9:27 PM [facility] Sodium 134(L) 136 - 145 mmol/L 03/19/2025 9:27 PM [facility] Potassium 3.7 3.5 - 4.5 mmol/L 03/19/2025 9:27 PM [facility] Chloride 101 98 - 107 mmol/L 03/19/2025 9:27 PM [facility] CO2 22 22 - 29 mmol/L 03/19/2025 9:27 PM [facility] Glucose 122(H) 70 - 99 mg/dL 03/19/2025 9:27 PM [facility] Calcium 8.7 8.4 - 10.2 mg/dL 03/19/2025 9:27 PM [facility] Anion Gap 11 6 - 16 03/19/2025 9:27 PM [facility] BUN/Creatinine Ratio 18 7 - 23 03/19/2025 9:27 PM [facility] Osmolality Calculated 294 275 - 295 mOsm/kg 03/19/2025 9:27 PM [facility] eGFR by CKD-EPI 23(L) >=90 mL/min/1.7 3 m2 03/19/2025 9:27 PM [facility] Comment:Estimated Glomerular Filtration Rate (eGFR) calculated using the CKD-EPI Creatinine Equation (2020), per the National Kidney Foundation and [employer]ph[employer] recommendations. Blood BLOOD SPECIMEN / Unknown Venipuncture / Unknown 03/19/2025 8:44 PM CDT 03/19/2025 8:58 PM CDT us Nayan Flaquito Hernandez WILDLIFE POLICY PROFESSIONAL-RADIOLOGY SERVICES MANAGER LAB - CHEMISTRY ORD ERABLES Final Result [facility] [address] [place] [phone], [facility] [phone] * ECHO COMPLETE W CONTRAST (03/19/2025 10:47 AM CDT) Only the most recent of2 resultswithin the time period is included. IVSd 2D 0.99 cm SSM CV FUJ I PACS LVIDd 4.303 cm SSM CV FUJ I PACS LVIDs 2.878 cm SSM CV [facility] I PACS LVOT diam 1.94 cm S[facility] CV [facility] I PACS LVPWd 1.189 cm SSM CV [facility] I PACS LV biplane EF 67.255 % SSM CV FUJI PACS LV A2C EF 59.742 % [facility]SM CV [facility] I PACS LV A4C EF 72.856 % [facility]SM CV [facility] I PACS LV EDV A2C 100.563 ml SSM CV FU JI PACS LV EDV A4C 142.773 ml SSM CV FU JI PACS LV ESV A2C 40.485 ml [facility] FU JI PACS LV ESV A4C 38.754 ml [facility] CV FU JI PACS LVOT pk grad 6.299 mmHg [facility]k valeriano 125.487 cm/s [facility] CV F UJI PACS LVOT VTI 21.326 cm [facility] CV [facility] I PACS RV-valdez basal diam 3.541 cm [facility] RVIDd 3.315 cm [facility] I PACS RVOT diam Doppler 2.414 cm SS M [facility] RVOT pk valeriano 88.733 cm/s [facility] CV F UJI PACS RVOT VTI 15.158 cm [facility] CV [facility] I PACS LA size 4.112 cm [facility] CV [facility] I PACS LA vol BP 78.882 ml [facility] CV [facility] I PACS RA area 17.37 cm [facility] AV area pk valeriano 2.416 cm [facility] area cont VTI 2.313 cm [facility] AV pk grad 9.427 mmHg [facility] CV FU JI PACS AV mn grad 5.644 mmHg [facility] CV FU JI PACS AV pk valeriano 153.514 cm/s [facility] CV [facility] I PACS AV VTI 27.253 cm [facility] CV [facility] I PACS MV A pk valeriano 97.364 cm/s [facility] CV F UJI PACS MV E pk valeriano 123.515 cm/s [facility] CV F UJI PACS MV E' lateral valeriano 4.132 cm/s SS [facility] MV mn grad 2.134 mmHg [facility] CV FU JI PACS MV VTI 25.234 cm [facility] CV [facility] I PACS PV pk valeriano 101.698 cm/s [facility] CV FUJ I PACS [...] is no pericardial effusion. Patient Info Name: Adrian Mercer Age: 65 years : 1960 Gender: Male Ht: 67 in Wt: 191 lb BSA: 2.05 m2 HR: 77 bpm BP: 117 / 81 mmHg Heart Rhythm: Sinus Rhythm Exam Date: 03/19/2025 10:16 AM Patient Status: I/P Study Site: [facility] Primary Location: [facility] EStudy Info Technical Quality: Fair Exam [...] Provider: Rahul Hernandez Attending Physician: Rahul Hernandez High Scaler: Jose G Casper Left Ventricle The left [...] is no pericardial effusion. Patient Info Name: Adrian Mercer Age: 65 years : 1960 Gender: Male Ht: 67 in Wt: 191 lb BSA: 2.05 m2 HR: 77 bpm BP: 117 / 81 mmHg Heart Rhythm: Sinus Rhythm Exam Date: 03/19/2025 10:16 AM Patient Status: I/P Study Site: [facility] Primary Location: [facility] Technical Quality: Fair Exam Type: ECHO COMPLETE W CONTRAST Indications I34.0 - Mitral valve insufficiency, unspecified etiology Procedure(s) * A complete 2D, color Doppler, spectral Doppler, and M-Modetransthoracic echocardiogram was performed. Contrast/Agitated Saline Contrast / Saline: Definity Amount: 1.00 ml Administered By: Jose G Casper Reaction to Contrast: no Staff Referring Physician: Rahul Hernandez Ordering Provider: Rahul Hernandez Attending Physician: Rahul Hernandez High Scaler: Jose G Casper Left Ventricle The left [...] of23 resultswithin the time period is included. Glucose WB/POC 89 70 - 99 mg/dL 03/19/2025 8:27 AM CDT [facility] Specimen Type Arterial/C apillary 03/19/2025 8:27 AM [facility] Blood BLOOD SPECIMEN / Unknown 03/19/2025 8:22 AM CDT 03/19/2025 8:27 AM CDT us Rahul Hernandez MD LAB - POINT OF CARE ORDERABLES Final Result [facility] [address] [place] [address], [facility] [phone] * (ABNORMAL) HEPATIC FUNCTION PANEL (03/19/2025 4:28 AM CDT) Pathologist [facility] Protein Total 6.2 6.0 - 8.3 g/dL 025 7:34 AM [facility] Albumin 3.1(L) 3.4 - 5.0 g/dL 03/19/2025 7:34 AM [facility] Bilirubin Total 0.4 0.2 - 1.2 mg/dL 02/19 7:34 AM [facility] Bilirubin Conjugated 0.2 0.1 - 0.5 mg/dL 03/19/2025 7:34 AM [facility] Bilirubin Unconjugated 0.2 Unconjugated Bilirubin is a calculated value: Reference ranges have not been established. mg/dL 03/19/2025 7:34 AM [facility] Alkaline Phosphatase 198(H) 40 - 150 U/L 03/19/2025 7:34 AM [facility] ALT 166(H) 5 - 55 U/L 03/19/2025 7:34 AM [facility] AST 173(H) 5 - 34 U/L 03/19/2025 7:34 AM [facility] Albumin/Globulin Ratio 1.0(L) 1.1 - 2.3 03/19/2025 7:34 AM [facility] Blood BLOOD SPECIMEN / Unknown Venipuncture / Unknown 03/19/2025 4:28 AM CDT 03/19/2025 4:38 AM CDT us Jennyfer Dallas DO LAB - CHEMISTRY ORDERABLES Final Result [facility] [address] [place] [address], [facility] [phone] * TRANSFUSE RED BLOOD CELL LEUKOREDUCED UNIT(S) (03/16/2025 10:21 PM CDT) Rahul Hernandez MD NURSING - BLOOD PRO D TRANSFUSION Final Result * TYPE + SCREEN PANEL (03/16/2025 5:39 PM CDT) Only the most recent of3 resultswithin the time period is included. Antibody Screen NEG 6:34 PM CDT [facility] ABO Rh O POS 03/16/2025 6:34 PM CDT [facility] Blood Bank BLOOD SPECIMEN / Unknown Venipuncture / Unknown 03/16/2025 5:39 PM CDT 03/16/2025 5:51 PM CDT Rahul Hernandez MD LAB - BLOOD BANK OR DERABLES Final Result [facility] [address] [place] [address], [facility] [phone] * TRANSFUSE RED BLOOD CELL LEUKOREDUCED UNIT(S) (03/16/2025 11:36 AM CDT) Nayan Hernandez WILDLIFE POLICY PROFESSIONAL-RADIOLOGY SERVICES MANAGER NURSING - BLOOD PRO D TRANSFUSION Final Result * (ABNORMAL) SVO2 FOR RECALIBRATION (03/16/2025 3:11 AM CDT) Only the most recent of4 resultswithin the time period is included. SVO2 for Recalibration 48.1(L) 66.0 - 77.0 % 03/16/2025 3:20 AM CDT [facility] Blood BLOOD SPECIMEN / Unknown Venipuncture / Unknown 03/16/2025 3:11 AM CDT 03/16/2025 3:16 AM CDT Mariyayessi Botello PA-C LAB - CHEMISTRY ORDERABLES F inal Result [address] [address], [facility] [phone] * HEMOGLOBIN A1C (03/16/2025 3:11 AM CDT) Hemoglobin A1c 5.3 <=5.6 % 03/16/2025 10:31 AM CDT [facility] Estimated Average Glucose 105 mg/dL 03/16/2025 10:31 AM CDT [facility] Comment: HbA1c Interpretation: Normal : < 5.7% Pre-diabetes: 5.7-6.4% Diabetes: Equal to or greater than 6.5% Test results diagnostic of diabetes should be repeated for confirmation. Treatment target values recommended by ADA and other clinical organizations should be used to evaluate metabolic control in patients. Reference: [place] [employer], Standards of Care in Diabetes -2020 In patients 70 years and older consider HbA1c target range of 7.0-7.5% (Reference: Igor [address] et al. JAMDA. 2012) The Sebia assay for the measurement of HbA1c is a National Glycohemoglobin Standardization Program (NGSP) certified method. Blood BLOOD SPECIMEN / Unknown Venipuncture / Unknown 03/16/2025 3:11 AM CDT 03/16/2025 4:45 AM CDT Mariyayessi Botello PA-C LAB - CHEMISTRY ORDERABLES F inal Result Performing Organization Address City/[facility]/ZIP Co de Phone Number [address] [address], [facility] [phone] * (ABNORMAL) LACTIC ACID BLOOD (03/16/2025 3:11 AM CDT) Only the most recent of3 resultswithin the time period is included. Lactic Acid-Stat 3.7(HH) <=2.0 mmol/L 03/16/2025 4:02 AM CDT [facility] Blood BLOOD SPECIMEN / Unknown Venipuncture / Unknown 03/16/2025 3:11 AM CDT 03/16/2025 3:21 AM CDT us Nayanbita Hernandez WILDLIFE POLICY PROFESSIONAL-RADIOLOGY SERVICES MANAGER LAB - CHEMISTRY ORD ERABLES Final Result [facility] [address] [place] [address], [facility] [phone] * (ABNORMAL) BLOOD GASES ART + COOX PANEL (03/16/2025 3:11 AM CDT) Only the most recent of4 resultswithin the time period is included. pH Arterial 7.38 7.35 - 7.45 pH 03/16/2025 3:21 AM [facility] pO2 Arterial 104(H) 80 - 100 mmHg 03/16/2025 3:21 AM [facility] pCO2 Arterial 31(L) 35 - 45 mmHg 3:21 AM [facility] HCO3 Arterial 18.3(L) 20.0 - 30.0 mmol/L 03/16/2025 3:21 AM [facility] BE Arterial -6.1(L) -2.0 - 2.0 mmol/L 03/16/2025 3:21 AM [facility] Oxyhemoglobin Arterial 96.3 % 03/16/2025 3:21 AM [facility] Dexoyhemoglobin (HHB) % <1.0 % 03/16/2025 3:21 AM [facility] Methemoglobin 1.3 0.0 - 2.0 % 03/16/2025 3:21 AM [facility] Carboxyhemoglobin 1.8 0.0 - 2.0 % 2024 3:21 AM [facility] O2 Content Arterial 10.6 Interpret within clinical context ml/dL 03/16/2025 3:21 AM [facility] Hemoglobin by COOX 7.7(L) 12.0 - 17.6 g/dL 03/16/2025 3:21 AM [facility] O2 Saturation Arterial 99 90 - 100 % 03/16/2025 3:21 AM [facility] FI O2 Arterial 28.0 % 03/16/2025 3:21 AM CDT [facility] Blood, arterial ARTERIAL BLOOD SPECIMEN / Unknown Arterial Puncture / Unknown 03/16/2025 3:11 AM CDT 03/16/2025 3:16 AM CDT Narrative [facility] - 03/16/2025 3:21 AM CDT Carboxyhemoglobin Normal Concentration: Non-smokers: 0-2%; Smokers: 0-9%; Toxic: >20% us Nayan Hernandez WILDLIFE POLICY PROFESSIONAL-RADIOLOGY SERVICES MANAGER LAB - BLOOD GASES O RDERABLES Final Result [address] [address], [facility] [phone] * TRANSFUSE RED BLOOD CELL LEUKOREDUCED UNIT(S) [...] - 400 mg/dL 03/15/2025 6:03 PM CDT [facility] Blood BLOOD SPECIMEN / Unknown Venipuncture / Unknown 03/15/2025 5:32 PM CDT 03/15/2025 5:35 PM CDT Mariya Ayan PA-C LAB - COAGULATION ORDERABLES Final Result Performing Organization Address [facility]/ZIP Co de Phone Number [address] [address], [place] [phone] * PTT (03/15/2025 5:32 PM CDT) Only the most recent of2 resultswithin the time period is included. APTT 29.8 23.0 - 38.4 Seconds 03/15/2025 6:05 PM CDT [facility] Comment:Suggested therapeuti c range for full dose I.V. unfractionated heparin therapy for venous thromboembolism is 71 to 109 seconds. Blood BLOOD SPECIMEN / Unknown Venipuncture / Unknown 03/15/2025 5:32 PM CDT 03/15/2025 5:35 PM CDT Mariya Ayan GARRETT-C LAB - COAGULATION ORDERABLES Final Result Performing Organization Address [facility]/ZIP Co de Phone Number [address] [address], [place] [phone] * (ABNORMAL) DIFFERENTIAL MANUAL (03/15/2025 5:32 PM CDT) Neutrophil % 90(H) 41 - 74 % 03/15/2025 6:09 PM CDT [facility] Lymphocyte % 6(L) 17 - 47 % 03/15/2025 6:09 PM CDT [facility] Monocyte % 4 3 - 11 % 03/15/2025 6:09 PM CDT [facility] Neutrophil Absolute 19.53(H) 1.60 - 7.50 x10E9/L 03/15/2025 6:09 PM CDT [facility] Lymphocyte Absolute 1.30 1.00 - 4.40 x10E9/L 03/15/2025 6:09 PM CDT [facility] Monocyte Absolute 0.87 0.15 - 1.00 x10E9/L 03/15/2025 6:09 PM [facility] RBC Morphology REVIEWED 03/15/2025 6:09 PM [facility] Large Platelets PRESENT(A) (none) 03/15/2025 6:09 PM [facility] Blood BLOOD SPECIMEN / Unknown Venipuncture / Unknown 03/15/2025 5:32 PM CDT 03/15/2025 5:38 PM CDT Mariya Botello PA-C LAB - HEMATOLOGY ORDERABLES Final Result [facility] [address] [place] [address], [facility] [phone] * (ABNORMAL) CBC W AUTO DIFFERENTIAL (03/15/2025 5:32 PM CDT) Only the most recent of14 resultswithin the time period is included. WBC 21.7(H) 4.0 - 10.7 x10E9/L 03/15/2025 6:09 PM [facility] RBC Count 2.71(L) 4.30 - 5.80 x10E12/L 03/15/2025 6:09 PM [facility] Hemoglobin 7.9(L) 13.3 - 17.5 g/dL 03/15/2025 6:09 PM [facility] Hematocrit 24.0(L) 38.7 - 51.1 % 03/15/2025 6:09 PM [facility] MCV 88.6 80.0 - 98.0 fL 03/15/2025 6:09 PM [facility] MCH 29.2 26.7 - 33.6 pg 03/15/2025 6:09 PM [facility] MCHC 32.9 31.7 - 36.3 g/dL 03/15/2025 6:09 PM [facility] RDW-CV 15.9(H) 11.3 - 14.8 % 03/15/2025 6:09 PM [facility] Platelet Count 251 150 - 420 x10E9/L 03/15/2025 6:09 PM [facility] MPV 9.5 7.8 - 11.4 fL 03/15/2025 6:09 PM CDT [facility] Blood BLOOD SPECIMEN / Unknown Venipuncture / Unknown 03/15/2025 5:32 PM CDT 03/15/2025 5:38 PM CDT Mariya Botello PA-C LAB - HEMATOLOGY ORDERABLES Final Result [facility] [address] [place] [address], [place] [phone] * CULTURE WOUND+GRAM STAIN (03/15/2025 5:06 PM CDT) Culture No growth LAVELLE 03/19/2025 1:10 PM CDT [facility] MICROBIOLOGY Gram Stain Light Polymorphonuclear cells 03/19/2025 1:10 PM CDT [facility] MICROBIOLOGY Gram Stain No organisms seen 025 1:10 PM CDT [facility] MICROBIOLOGY Microbiology TISSUE SPECIMEN / Unknown Collection / Unknown 03/15/2025 5:06 PM CDT 03/15/2025 5:06 PM CDT Rahul Hernandez MD LAB - MICROBIOLOGY ORDERABLES Final Result Performing Organization Address City/[facility]/ZIP Co de Phone Number [facility] [address] [place] [address], [facility] [phone] * CULTURE ANAEROBE (03/15/2025 5:06 PM CDT) Culture No anaerobic organisms isolated [place]LE 03/20/2025 12:08 PM CDT [facility] MICROBIOLOGY Microbiology TISSUE SPECIMEN / Unknown Collection / Unknown 03/15/2025 5:06 PM CDT 03/15/2025 5:06 PM CDT Rahul Hernandez MD LAB - MICROBIOLOGY ORDERABLES Final Result [facility] [address] [place] [address] [phone] * TRANSFUSE FRESH FROZEN PLASMA UNIT(S) (03/15/2025 [...] were not saved. I personally performed. CPT 04107 with bilateral modifier. Alexa Page MD GENERAL [...] 7.35 - 7.45 pH 03/15/2025 4:00 PM [facility] pO2 Arterial 384(H) 80 - 100 mmHg 03/15/2025 4:00 PM [facility] pCO2 Arterial 41 35 - 45 mmHg 4:00 PM [facility] HCO3 Arterial 22.1 20.0 - 30.0 mmol/L 03/15/2025 4:00 PM [facility] BE Arterial -3.4(L) -2.0 - 2.0 mmol/L 03/15/2025 4:00 PM [facility] Oxyhemoglobin Arterial 97.9 % 03/15/2025 4:00 PM [facility] Dexoyhemoglobin (HHB) % <1.0 % 03/15/2025 4:00 PM [facility] Methemoglobin 1.1 0.0 - 2.0 % 03/15/2025 4:00 PM [facility] Carboxyhemoglobin 1.0 0.0 - 2.0 % 2024 4:00 PM [facility] Comment:Carboxyhemoglobin No rmal Concentration: Non-smokers: 0-2%; Smokers: 0- 9%; Toxic: >20% O2 Content Arterial 13.2 Interpret within clinical context ml/dL 03/15/2025 4:00 PM [facility] Hemoglobin by COOX 8.8(L) 12.0 - 17.6 g/dL 03/15/2025 4:00 PM [facility] O2 Saturation Arterial 100 90 - 100 % 03/15/2025 4:00 PM [facility] Sodium Whole Blood 138 135 - 145 mmol/L 03/15/2025 4:00 PM [facility] Potassium Whole Blood 4.1 3.5 - 5.5 mmol/L 03/15/2025 4:00 PM [facility] Chloride WB 107 78 - 107 mmol/L 03/15/2025 4:00 PM [facility] Calcium Ionized 1.36 mmol/L 4:00 PM [facility] Ionized Calcium pH Adjusted 1.33 1.19 - 1.34 mmol/L 03/15/2025 4:00 PM [facility] Anion Gap (AG) Arterial 9 6 - 16 mmol/L 03/15/2025 4:00 PM [facility] Glucose WB 193(H) 70 - 99 mg/dL 03/15/2025 4:00 PM [facility] Lactic Acid Whole Blood 1.8 <=2.0 mmol/L 03/15/2025 4:00 PM [facility] Blood, arterial ARTERIAL BLOOD SPECIMEN / Unknown 03/15/2025 4:00 PM CDT 03/15/2025 4:00 PM CDT us Cornelia Serra MD LAB - POINT OF CARE ORDERABLE S Final Result [facility] [address] [place] [address], [facility] [phone] * TRANSFUSE RED BLOOD CELL LEUKOREDUCED UNIT(S) (03/15/2025 3:30 PM CDT) us Rahul Hernandez MD NURSING - BLOOD PRO D TRANSFUSION Final Result * ACT PLUS - POCT ([facility]) (03/15/2025 3:17 PM CDT) Only the most recent of8 resultswithin the time period is included. [facility] ACT PLUS 112 See result comments sec 03/15/2025 3:21 PM [facility] Blood BLOOD SPECIMEN / Unknown 03/15/2025 3:17 PM CDT 03/15/2025 3:21 PM CDT Narrative [facility] - 03/15/2025 3:21 PM CDT ACT+ Therapeutic ranges for the ACT+ test in surgery areas are: Greater than (>) 360 seconds for surgical patients Greater than (>) 450 seconds for surgical bypass patients Cornelia Serra MD LAB - COAGULATION ORDERABLES Final Result [facility] [address] [place] [address], [facility] [phone] * (ABNORMAL) TEG 6 GLOBAL HEMOSTASIS WITH HEPARIN NEUTRALIZATION (03/15/2025 3:10 PM CDT) [facility] CITRATED KAOLIN R (CK-R REACTION TIME) 5.4 4.6 - 9.1 min 03/15/2025 4:11 PM T [facility] CITRATED KAOLIN MA (CK-MA MAX AMPLITUDE) 70.3(H) 52.0 - 69.0 mm 03/15/2025 4:11 PM [facility] CITRATED KAOLIN HEPARINASE R ( [facility] R REACTION TIME) 4.7 4.3 - 8.3 min 03/15/2025 4:11 PM [facility] CITRATED KAOLIN HEPARINASE LY30 ([facility] LY30 LYSIS) 0.0 0.0 - 3.2 % 03/15/2025 4:11 PM [facility] CITRATED RAPIDTEG HEPARINASE MA ( [facility] MA MAX AMPLITUDE) 69.5(H) 53.0 - 69.0 mm 03/15/2025 4:11 PM T [facility] CITRATED FUCTIONAL FIBRINOGEN HEPARINASE ( [facility] MAX AMPLITUDE) 39.1(H) 15.0 - 34.0 mm 03/15/2025 4:11 PM [facility] Blood BLOOD SPECIMEN / Unknown 03/15/2025 3:10 PM CDT 03/15/2025 3:18 PM CDT Alexa Page MD LAB - HEMATOLOGY ORDERABL ES Final Result Performing Organization Address [facility] Co de Phone Number [address] [address], [facility] [phone] * PLATELET COUNT AUTO CITRATED BLOOD (03/15/2025 2:33 PM CDT) Platelet Count Citrated 215 150 - 420 x10E9/L 03/15/2025 3:49 PM CDT [facility] Blood BLOOD SPECIMEN / Unknown Venipuncture / Unknown 03/15/2025 2:33 PM CDT 03/15/2025 2:33 PM CDT Narrative [facility] - 03/15/2025 3:49 PM CDT This test was developed and its performance characteristics determined by the clinical laboratories of [facility] and [facility]. It has not been cleared and approved by the [place] Food and Drug Administration. Alexa Page MD LAB - HEMATOLOGY ORDERABL ES Final Result Performing Organization Address City/[facility] Co de Phone Number [address] [address], [place] [phone] * PATHOLOGY TISSUE (03/15/2025 1:53 PM CDT) Case Report Surgical Pathology Report Case: [id number] Authorizing Provider: Rahul Hernandez Collected: 03/15/2025 01:53 PM MD Tyrell Ordering Location: [facility] OP Received: 03/16/2025 05:08 AM Pathologist: Ericka Robert MD Specimen: Mitral Valve, Anterior leaflet of mitral valve 03/17/2025 3:58 PM CDT [facility] Final Diagnosis Heart, mitral valve, replacement (A): - Endocarditis 03/17/2025 3:58 PM CDT [facility] PATH[facility] at 1558 CDT Microscopic [...] in formalin, labeled with the patient's name Adrian Mercer Jr., specimen A, consists of a 3.2 x 1.8 x 0.1 cm portion of henry-white to henry-yellow heterogeneous rubbery tissue, consistent with mitral valve leaflet, which has multiple portions of attached henry-white thin delicate chordae tendinea. There are no vegetations or calcific nodules present. [employer] Trimmer sections are submitted in a single cassette labeled A1. RB 03/17/2025 3:58 PM CDT [facility] Pathologist Location at [facility] 03/17/2025 3:58 PM CDT [facility] Disclaimer The performance characteristics of all immunohistochemical and indirect immunofluorescence stains (if any) cited in this report were determined by the Histopathology Laboratory of [facility]. Some of these tests were [...] LAB Embedded Images 03/17/2025 3:58 PM CDT [facility] PATH[facility] Resection without Tumor ENTIRE MITRAL VALVE / Unknown 03/15/2025 1:53 PM CDT 03/16/2025 5:08 AM CDT Comment:Pre-op diagnosis: mitral valve regurgitation Rahul Hernandez MD LAB - PATHOLOGY/CYT OLOGY ORDERABLES Final Result [facility] LAB [address] [facility] [place] [address], [facility] [phone] * PA CATH PERFORMABLE, INTRODUCER (03/15/2025 12:19 [...] Event Date/Time: 03/15/2025 11:38 AM Procedure: intubation (26803) Procedure Section: Sedation: under general anesthesia. Indications [...] Provider: Ricki Shields DO, Performed the procedure us Alexa Page MD GENERAL ANESTHESIA ORDERA BLES Final Result * ARTERIAL LINE PERFORMABLE (03/15/2025 12:18 PM CDT) Ricki Garcia DO - 03/15/2025 12:18 PM CDT Ricki Shields DO 03/15/2025 12:18 PM Arterial Line Placement Procedure Note Patient Location: OR. Insertion Time: 03/15/2025 11:32 AM Procedure: Arterial Line (16716) Procedure Section Indications: continuous blood pressure monitoring. [...] Provider: Ricki Shields DO, Performed the procedure us Alexa Page MD GENERAL ANESTHESIA ORDERA BLES Final Result * BLOOD GAS KATHY+LYTES+METAB+COOX POC NOTIF (03/15/2025 8:06 AM CDT) Comment Notification Label Only - See Separate Report 03/15/2025 9:31 AM CDT [facility] Other MISCELLANEOUS SAMPLES / Unknown 03/15/2025 8:06 AM CDT 03/15/2025 8:07 AM CDT us Rahul Hernandez MD LAB - BLOOD GASES O RDERABLES Final Result [address] [address], [facility] [phone] * BLOOD GAS ART+LYTES+METAB+COOX POC NOTIF (03/15/2025 8:06 AM CDT) Comment Notification Label Only - See Separate Report 03/15/2025 9:31 AM CDT [facility] Other MISCELLANEOUS SAMPLES / Unknown 03/15/2025 8:06 AM CDT 03/15/2025 8:07 AM CDT us Rahul Hernandez MD LAB - BLOOD GASES O RDERABLES Final Result [address] [address], [place] [phone] * ECHO ANES SINTIA INTRAOP (03/15/2025 6:23 [...] Function back to baseline. Patient Info Name: Adrian Mercer Age: 65 years : 1960 Gender: Male Exam Date: 03/15/2025 10:01 AM Patient Status: I/P Study Site: [facility] Primary Location: [facility] EStud Info Exam Type: ECHO ANES SINTIA INTRAOP [...] Function back to baseline. Patient Info Name: Adrian Mercer Age: 65 years : 1960 Gender: Male Exam Date: 03/15/2025 10:01 AM Patient Status: I/P Study Site: [facility] Primary Location: [facility] EStudy Info Exam Type: ECHO [...] Alexa Page on 03/15/2025 05:38 PM [place] Final Result * TRANSFUSE RED BLOOD CELL LEUKOREDUCED UNIT(S) (03/14/2025 5:37 PM CDT) Ofelia Mckee APRN-RADIOLOGY SERVICES MANAGER NURSING - BLOOD PROD TRANSFUSION Final Result * PREPARE (CROSSMATCH) RBC UNIT(S), 1 Units (03/14/2025 5:21 AM CDT) Only the most recent of6 resultswithin the time period is included. Unit Description N/A [facility] Blood Bank BLOOD SPECIMEN / Unknown 03/14/2025 5:21 AM CDT 03/14/2025 5:53 AM CDT Rahul Hernandez MD LAB - BLOOD BANK OR DERABLES Final Result [facility] [address] [place] [address], [facility] [phone] * PREPARE PLATELET PHERESIS UNIT(S), 2 Units (03/14/2025 5:21 AM CDT) Only the most recent of2 resultswithin the time period is included. Unit Description LR PLT Phere B7 [facility] Unit ABO O [facility] Unit Rh POS [facility] Product Number P27 [facility] B LO[facility] LAB Unit Donor # [id number] [facility] BLOOD BANK LAB Unit Status transfused [facility] Product Code [id number] [facility] Blood Type Barcode 5100 [facility] Expiration Date [id number] S BLOOD BANK LAB Unit Description LR PLT Phere B7 [facility] B[facility] Unit ABO O [facility] Unit Rh POS [facility] Product Number P27 [facility] B LOOD [facility]ANK LAB Unit Donor # [id number] [facility] Unit Status released [facility] BLOO D BANK LAB Product Code [id number] [facility] Blood Type Barcode 5100 [facility] Expiration Date [id number] S BLOOD BANK LAB Blood Bank BLOOD SPECIMEN / Unknown 03/14/2025 5:21 AM CDT 03/14/2025 5:53 AM CDT Rahul Hernandez MD LAB - BLOOD BANK OR DERABLES Final Result [facility] [address] [place] [address], [facility] [phone] * PREPARE [facility] UNIT(S), 4 Units (03/14/2025 5:21 AM CDT) Only the most recent of2 resultswithin the time period is included. Unit Description Liquid Plasma [facility] B[facility] Unit ABO A [facility] Unit Rh POS [facility] Product Number E2457 [facility] B LOOD [facility] Unit Donor # [id number] [facility] B[facility] Unit Status released [facility] BLOO D [facility]ANK [facility] Product Code [id number] [facility] Blood Type Barcode 6200 [facility] Expiration Date S BLOOD BANK LAB Unit Description Liquid Plasma [facility] Unit ABO A [facility] B[facility] B[facility] Unit Rh POS [facility] B[facility] Product Number [id number] [facility] B LOOD [facility]ANK LAB Unit Donor # [id number] [facility] B[facility] Unit Status transfused [facility] Product Code [id number] [facility] Blood Type Barcode 6200 [facility] Expiration Date [id number] S BLOOD BANK LAB Blood Bank BLOOD SPECIMEN / Unknown 03/14/2025 5:21 AM CDT 03/14/2025 5:53 AM CDT Rahul Hernandez MD LAB - BLOOD BANK OR DERABLES Final Result [facility] [address] [place] [address], [facility] [phone] * (ABNORMAL) URINALYSIS REFLEX MICROSCOPIC REFLEX CULTURE (03/13/2025 9:10 AM CDT) Only the most recent of2 resultswithin the time period is included. Color UA Colorless(A) Yellow, Straw 03/13/2025 9:50 AM CDT [facility] Clarity UA Clear Clear 03/13/2025 9:50 AM CDT [facility] Glucose UA 1+(A) Normal 03/13/2025 9:50 AM [facility] Bilirubin UA Negative Negative 03/13/2025 9:50 AM [facility] Ketone UA Negative Negative 03/13/2025 9:50 AM [facility] Specific [place] UA 1.012 1.005 - 1.030 03/13/2025 9:50 AM [facility] Blood UA Negative Negative 03/13/2025 9:50 AM [facility] pH UA 6.5 5.0 - 8.0 03/13/2025 9:50 AM [facility] Protein UA 1+(A) Negative 03/13/2025 9:50 AM [facility] Urobilinogen UA Normal Normal mg/dL 03/13/2025 9:50 AM [facility] Nitrite UA Negative Negative 03/13/2025 9:50 AM [facility] Leukocyte Esterase UA Negative Negative 03/13/2025 9:50 AM [facility] RBC UA 0-2 0 - 5 # /hpf 03/13/2025 9:50 AM [facility] WBC UA 0-5 0 - 5 # /hpf 03/13/2025 9:50 AM [facility] Bacteria UA None Seen None Seen 03/13/2025 9:50 AM [facility] Squamous Epithelial Cells None Seen 0 - 5 /hpf 03/13/2025 9:50 AM [facility] Mucus UA 1+ /LPF 03/13/2025 9:50 AM [facility] Reflex Status Culture not indicated 03/13/2025 9:50 AM [facility] Urine URINE SPECIMEN OBTAINED BY CLEAN CATCH PROCEDURE / Unknown Collection / Unknown 03/13/2025 9:10 AM CDT 03/13/2025 9:19 AM [facility] - 03/13/2025 9:50 AM [facility] Ofelia Mckee WILDLIFE POLICY PROFESSIONAL-RADIOLOGY SERVICES MANAGER LAB - URINALYSIS ORDE RYAN Final Result [facility] [address] [place] [address], [facility] [phone] * BLOOD TYPE VERIFICATION (03/10/2025 10:02 PM CDT) ABO Rh O POS 03/10/2025 10:56 PM CDT [facility] B[facility] Blood Bank BLOOD SPECIMEN / Unknown Lab Venipuncture / Unknown 03/10/2025 10:02 PM CDT 03/10/2025 10:11 PM CDT Yousuf Chaudhari PA-C LAB - BLOOD BANK ORDERABLES Final Result [facility] [address] [place] [address], [facility] [phone] * CT Chest Wo Contrast (03/10/2025 2:43 [...] indicated. > Dictated by Nick Jay MD, (doctor of radiology). > Dictated by Ink Blender IJen MD have personally reviewed and interpreted this examination/study. 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 > Dictated by Nick Jay MD, (doctor of radiology). > Dictated by Ink Blender IJen MD have personally reviewed and interpreted [...] PMHx HTN, COPD, CKD, GERD presented to [facility] as OSH transfer for CTS evaluation for [...] Event Date/Time: 03/09/2025 6:17 PM Procedure: intubation ([id number]) Procedure Section: Sedation: under general anesthesia. Indications [...] Provider #1: Prakash De La Torre DO. Prakash De L aTorre DO GENERAL ANESTHESIA ORDERAB LES Final Result [...] clinically indicated. > Dictated by Eunice Ramirez (doctor of radiology). > Dictated by Eunice Ramirez 03/09/2025 11:07 AM > Dictated by Ink Blender IJen MD have personally reviewed and interpreted this examination/study. > Interpreting Provider: Jen Thomson MD on 03/09/2025 1:40 PM Narrative 03/09/2025 1:40 PM CDT PROCEDURE: US RETROPERITONEAL COMPLETE DATE/TIME OF EXAM: 03/09/2025 10:36 AM CLINICAL INFORMATION: None relevant/not provided if blank. Indication: N18.5: CKD (chronic kidney disease) stage 5, GFR less than 15 ml/min ([facility]) Additional History: COMPARISON: None. TECHNIQUE: Real-time ultrasound of the kidneys and bladder with DICOM image capture performed by neurodiagnostic technologist. FINDINGS: Right kidney: 10.9 x 5.6 [...] disease) stage 5, GFR less than15 ml/min ([facility]) Additional History: COMPARISON: None. TECHNIQUE: Real-time ultrasound of the kidneys and bladder with DICOMimage capture performed by neurodiagnostic technologist. FINDINGS: Right kidney: 10.9 x 5.6 [...] clinically indicated. > Dictated by Eunice Ramirez (doctor of radiology). > Dictated by Eunice Ramirez 03/09/2025 11:07 AM > Dictated by Ink Blender IJen MD have personally reviewed and interpreted this examination/study. > Interpreting Provider: Jen Thomson MD on 03/09/2025 1:40 PM Adalberto Arroyo MD US ORDERABLES Final Result * VITAMIN D 25-HYDROXY (03/08/2025 5:06 AM CDT) Vitamin D, 25 Hydroxy 39.0 30.0 - 80.0 ng/mL 03/08/2025 6:22 AM CDT [facility] Comment: The recommendations for 25-Hydroxy Vitamin [...] LAB - CHEMISTRY ORDERABLES F inal Result [facility] [address] [place] [address], [facility] [phone] * (ABNORMAL) PTH INTACT W/O CALCIUM (03/08/2025 5:05 AM CDT) PTH Intact 80.3(H) 8.0 - 77.0 pg/mL 03/08/2025 6:10 AM CDT [facility] Blood BLOOD SPECIMEN / Unknown Lab Venipuncture / Unknown 03/08/2025 5:05 AM CDT 03/08/2025 5:34 AM CDT Adalberto Arroyo MD LAB - CHEMISTRY ORDERABLES F inal Result [address] [address], [place] [phone] * (ABNORMAL) IRON + TRANSFERRIN PANEL (03/08/2025 5:05 AM CDT) Iron 38(L) 50 - 175 ug/dL 03/08/2025 6:09 AM CDT [facility] Transferrin 201 174 - 382 mg/dL 03/08/2025 6:09 AM CDT [facility] Transferrin Saturation % 15(L) 16 - 50 % 03/08/2025 6:09 AM CDT [facility] TIBC Calculated 251 240 - 450 ug/dL 03/08/2025 6:09 AM CDT [facility] Blood BLOOD SPECIMEN / Unknown Lab Venipuncture / Unknown 03/08/2025 5:05 AM CDT 03/08/2025 5:24 AM CDT Adalberto Arroyo MD LAB - CHEMISTRY ORDERABLES F inal Result [address] [address], [place] [phone] * (ABNORMAL) FERRITIN (03/08/2025 5:05 AM CDT) Ferritin 447(H) 22 - 275 ng/mL 03/08/2025 6:13 AM CDT [facility] Blood BLOOD SPECIMEN / Unknown Lab Venipuncture / Unknown 03/08/2025 5:05 AM CDT 03/08/2025 5:24 AM CDT us Adalberto Arroyo MD LAB - CHEMISTRY ORDERABLES F inal Result [facility] [address] [place] [address], [facility] [phone] * VAS Carotid Duplex Bilateral (03/07/2025 4:07 PM CDT) Anatomical Region Laterality Modality Neck Intravascular Ul trasound 03/07/2025 2:33 PM CDT Narrative Procedure Note Osvaldo Doyle MD - 03/08/2025 Kota Estrella WILDLIFE POLICY PROFESSIONAL-RADIOLOGY SERVICES MANAGER VASCULAR LAB ORDERABLE S Edited Result - [...] function is grossly normal. Patient Info Name: Adrian Mercer Age: 65 years : 1960 Gender: Male Ht: 67 in Wt: 178 lb BSA: 1.97 m2 HR: 96 bpm BP: 120 / 80 mmHg Heart Rhythm: Sinus Rhythm Exam Date: 2025 10:44 AM Patient Status: I/P Study Site: [facility] Primary Location: [facility] EStudy Info Exam Type: ECHO SINTIA COMPLETE Indications I34.81 - Calcification of mitral valve Contrast/Agitated Saline Contrast / Saline: Agitated Saline Amount: 10.00 ml Reaction to Contrast: no * A 3D, 2D, color Doppler and spectral Doppler transesophageal echocardiogram was performed with a Bubble Study. Staff Referring Physician: Pramod Torres Ordering Provider: Pramod Torres Attending Physician: Pramod Torres Fellow: Osvaldo Sepulveda High Scaler: Iris Greco Performing Physician: Tahmina Bui Complications [...] anterior mitral valve leaflet tip (around the A2/G0okikffz tip). * There is moderate to severe [...] function is grossly normal. Patient Info Name: Adrian Mercer Age: 65 years : 1960 Gender: Male Ht: 67 in Wt: 178 lb BSA: 1.97 m2 HR: 96 bpm BP: 120 / 80 mmHg Heart Rhythm: Sinus Rhythm Exam Date: 2025 10:44 AM Patient Status: I/P Study Site: [facility] Primary Location: [facility] EStudy Info Exam Type: ECHO SINTIA COMPLETE Indications I34.81 - Calcification of mitral valve Contrast/Agitated Saline Contrast / Saline: Agitated Saline Amount: 10.00 ml Reaction to Contrast: no * A 3D, 2D, color Doppler and spectral Doppler transesophagealechocardiogram was performed with a Bubble Study. Staff Referring Physician: Pramod Torres Ordering Provider: Pramod Torres Attending Physician: Pramod Torres Fellow: Osvaldo Sepulveda High Scaler: Iris Greco Performing Physician: Tahmina Bui Complications [...] anterior mitral valve leaflet tip (around the A2/N7qzqxfks tip). There is moderate to severe mitral [...] period is included. Pathologist [facility] Culture No growth day 5 LAVELLE 03/09/2025 1:30 PM CDT [facility] MICRO[facility]OLOG[facility] Blood PERIPHERAL BLOOD / Unknown Lab Venipuncture / Unknown 03/04/2025 11:09 AM CDT 03/04/2025 11:25 AM CDT Pramod Torres DO LAB - MICROBIOLOGY ORDERABLES Final Result [facility]CRO[facility] [address] [place] [address], [facility] [phone] * HEPATITIS C AB SCREEN RFLX NAAT QUANT (03/04/2025 6:36 AM CDT) Pathologist [facility] Hepatitis C Antibody Non-react francisco Non-reac tive 03/04/2025 8:16 AM CDT [facility] Comment:Hepatitis C Antibody screen [...] ORDERABLES Fin al Result Performing Organization Address [facility]/ZIP Co de Phone Number [address] [address], [place] [phone] * HIV-1 HIV-2 ANTIBODY + HIV P24 AG PANEL (03/04/2025 6:36 AM CDT) Pathologist [facility] HIV Antigen/Antibod y 1 & 2 Non-reacti ve Non-react francisco 03/04/2025 9:14 AM CDT [facility] Comment:No Laboratory eviden ce of HIV infection. Blood BLOOD SPECIMEN / Unknown Lab Venipuncture / Unknown 03/04/2025 6:36 AM CDT 03/04/2025 6:55 AM CDT Pramod Torres DO LAB - CHEMISTRY ORDERABLES Fin al Result Performing Organization Address [facility] Co de Phone Number [address] [address], [facility] [phone] * HEPATITIS B PANEL (03/04/2025 6:36 AM CDT) [facility] Hepatitis B Surface Antibody Quantitative <3.0 <8.0 mIU/mL 03/04/2025 8:41 AM CDT [facility] Comment: Hepatitis B Surface Antibody Numeric Result Interpretation: Nonreactive: <8.0 mIU/mL Indeterminate: 8.0 - 12.0 mIU/mL Reactive: >12.0 mIU/mL Hepatitis B Virus Surface Antibody Non-react francisco Non-react francisco 03/04/2025 8:41 AM CDT [facility] Comment: < 8 mIU/mL Hepatitis B surface Antibody (HBsAb). Nonreactive for HBsAb - individual is considered not immune to Hepatitis B Virus infection. Hepatitis B Virus Surface Antigen Non-react francisco Non-react francisco 03/04/2025 8:41 AM CDT [facility] Hepatitis B Core Virus Antibody IgM Non-react francisco Non-react francisco 03/04/2025 8:41 AM CDT [facility] Blood BLOOD SPECIMEN / Unknown Lab Venipuncture / Unknown 03/04/2025 6:36 AM CDT 03/04/2025 6:55 AM CDT us Pramod Raissa Torres DO LAB - CHEMISTRY ORDERABLES Fin al Result [facility] [address] [place] [address], [facility] [phone] * XR Panorex (03/03/2025 4:22 PM CDT) Anatomical Region Laterality Modality Head Radiographic Melba ging 03/04/2025 8:30 AM CDT Impressions 03/04/2025 9:17 AM CDT IMPRESSION: Lucencies within the right mandibular presumed location of absent of the molar and premolar teeth. Recommend dental consultation. The report was drafted by Ofe Aponte MD (vice president of brand management) 03/04/2025 8:30 AM. > Dictated by Ink Blender I, Jamie Barriga MD have personally reviewed and interpreted this examination/study. 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 > Dictated by Ink Blender I, Jamie Barriga MD have personally reviewed and interpreted this examination/study. > Interpreting Provider: Jamie Barriga MD on 03/04/2025 9:17 AM Pramod Torres DO DIAGNOSTIC IMAGING ORDERABLES Final Result * URINE DRUG SCREEN IMMUNOASSAY (03/03/2025 12:34 PM CDT) Pathologist [facility] Amphetamines Screen Urine Negative Negative: < 1000 ng/mL 03/03/2025 1:24 PM [facility] Barbiturates Screen Urine Negative Negative: < 200 ng/mL 03/03/2025 1:24 PM [facility] Benzodiazepine Screen Urine Negative Negative: < 200 ng/mL 03/03/2025 1:24 PM [facility] Opiates Urine Negative Negative: < 300 ng/mL 03/03/2025 1:24 PM [facility] Cocaine Metabolites Urine Negative Negative: < 300 ng/mL 03/03/2025 1:24 PM [facility] Phencyclidine Screen Urine Negative Negative: < 25 ng/ml 03/03/2025 1:24 PM [facility] Cannabinoids Screen Urine Negative Negative: <50 ng/mL 03/03/2025 1:24 PM [facility] Methadone Screen Urine Negative Negative: < 300 ng/mL 03/03/2025 1:24 PM [facility] Fentanyl Screen Urine Negative Negative: <1.5 ng/mL 03/03/2025 1:24 PM [facility] Urine URINE / Unknown Collection / Unknown 03/03/2025 12:34 PM CDT 03/03/2025 12:39 PM CDT Narrative [facility] - 03/03/2025 1:24 PM CDT The Urine Toxicology Screening Panel does not screen for Propoxyphene, Meprobamate, Carisoprodol, Trazodone, eecj-olz-nkzyvnx medications and/or volatiles (Acetone, Isopropanol, Methanol or Ethylene Glycol). Ethanol, Salicylate, Acetaminophen, Tricyclic Antidepressants and several therapeutic drugs may be individually assayed in serum or plasma specimen. Toxicology testing by the [facility] is an aid to medical diagnosis and treatment of patients. No documented chain of custody was maintained. Results are intended to be used for clinical purposes only. Pramod Torres DO LAB - URINE CHEMISTRY ORDERABL ES Final Result Performing Organization Address City/[facility]/ZIP Co de Phone Number [address] [address], [facility] [phone] * VANCOMYCIN LEVEL RANDOM (03/03/2025 5:00 AM CDT) Only the most recent of3 resultswithin the time period is included. Pathologist [facility] Vancomycin Random 17.1 Therapeutic Ranges not established for random specimens ug/mL 03/03/2025 6:06 AM CDT [facility] Blood BLOOD SPECIMEN / Unknown Lab Venipuncture / Unknown 03/03/2025 5:00 AM CDT 03/03/2025 5:31 AM CDT Narrative [facility] - 03/03/2025 6:06 AM CDT See institution protocol. Pramod Torres DO LAB - CHEMISTRY ORDERABLES Fin al Result [address] [address], [place] [phone] * MRSA PCR (03/02/2025 8:47 AM CDT) MRSA DNA by PCR Not detected Not detected 03/02/2025 3:41 PM CDT [facility] MICROBIOLOGY Microbiology SPECIMEN FROM NASAL FOSSAE / Unknown Collection / Unknown 03/02/2025 8:47 AM CDT 03/02/2025 8:52 AM CDT Narrative [facility] - 03/02/2025 3:41 PM CDT Methicillin-resistant Staphylococcus aureus (MRSA) DNA is not detected (presumed not colonized with MRSA). us Shira Harris MD LAB - MICROBIOLOGY ORDERABLES Fi nal Result [facility]CRO[facility] [address] [place] [address], [facility] [phone] * MONONUCLEOSIS SCREEN (03/02/2025 5:34 AM CDT) [facility] Mononucleosis Qualitative Negative Negative 03/02/2025 6:42 AM CDT [facility] Blood BLOOD SPECIMEN / Unknown Lab Venipuncture / Unknown 03/02/2025 5:34 AM CDT 03/02/2025 6:11 AM CDT us Shira Harris MD LAB - CHEMISTRY ORDERABLES Final Result Performing Organization Address City/[facility]/ZIP Co de Phone Number [facility] [address] [place] [address], [facility] [phone] * (ABNORMAL) BLOOD CULTURE ID PANEL (03/02/2025 5:33 AM CDT) [facility] Enterococcus faecalis Detected(A) Not detected 03/03/2025 10:33 AM CDT [facility] Van A/B Vancomycin Resistance Not detected Not detected 03/03/2025 10:33 AM CDT [facility] Comment:Results indicate van comycin-susceptible Enterococcus faecalis. Nasir/B not detected. Blood PERIPHERAL BLOOD / Unknown Lab Venipuncture / Unknown 03/02/2025 5:33 AM CDT 03/02/2025 6:06 AM CDT Narrative [facility] - 03/03/2025 10:33 AM CDT Blood Culture ID Panel performed by ADIKTIVO multiplex PCR. The Test panel includes: Gram [...] and MREJ (methicillin-resistance - MRSA), NDM ([place] jllwjvs-xqyo-hdofwtrpn), OXA-48-like (oxacillinase beta-lactamase),Nasir/B (vancomycin-resistance), VIM ([place] Intergrom-Encoded Metallo beta-lactamase). Shira Harris MD LAB - MICROBIOLOGY ORDERABLES [facility] Result [facility] [address] [place] [address], [facility] [phone] from Last 3 Months Insurance ANTHEM ANTHEM Advance Directives * Full Code (Latest Code Status on File) Date Activated Date Inactivated Comments 03/01/2025 10:01 PM 03/23/2025 4:41 PM Care Teams Chassis Mechanic Relationship Specialty Start Date End Date Carlos Ventura MD [address] [place] [address] PCP - General Internal Medicine 03/17/25
[2025-04-05 13:10] LABS: Hematocrit 35.2 % (37.0-46.0); Hemoglobin 10.9 g/dL (12.4-15.3); Mean Corpuscular HGB Conc 31.0 g/dL (32-36); Mean Corpuscular Hemoglobin 27.8 pg (27.0-31.0); Mean Corpuscular Volume 89.8 fL (78.0-102.0); Platelet Count Result 500 K/mm3 (150-420); Red Blood Count 3.92 M/mm3 (4.70-6.10); White Blood Count 10.5 K/mm3 (4.8-10.8)
[2025-04-05 13:26] LABS: Alanine Aminotransferase 17 U/L (6-50); Albumin Level 4.2 g/dL (3.5-5.1); Alkaline Phosphatase 146 U/L (38-126); Anion Gap 15 mmol/L (4-12); Aspartate Amino Transferase 22 U/L (17-59); Bilirubin,Total 0.5 mg/dL (0.2-1.3); Blood Urea Nitrogen 34 mg/dL (9-20); Calcium 10.1 mg/dL (8.4-10.2); Carbon Dioxide 20 mmol/L (22-30); Chloride 110 mmol/L (98-107); Estimated Glomerular Filt Rate 21; Glucose 97 mg/dL (65-110); Osmolality Calculated 307 mOsm/kg (285-295); Potassium 4.4 mmol/L (3.4-5.0); Sodium 145 mmol/L (137-145); Total Protein 10.6 g/dL (6.3-8.2)
[2025-04-05 13:53] LABS: Band Neutrophils Percent 0 % (0-6); Eosinophils Absolute Manual 0.73 K/mm3 (0.02-0.50); Eosinophils Percent Manual 7 % (1-6); Lymphocytes Absolute Manual 2.20 K/mm3 (1.1-4.5); Lymphocytes Percent Manual 21 % (18-44); Monocytes Absolute Manual 0.94 K/mm3 (0.1-0.90); Monocytes Percent Manual 9 % (3-9); Neutrophils Absolute Manual 6.61 K/mm3 (1.3-6.7); Neutrophils Percent Manual 63 % (46-73); Total Cells Counted 100
== END 2025-04-05 12:50 | disposition home or self-care (01) ==
LOC: CHSLAB 12:53
DX: Z48.812 Encounter for surgical aftercare following surgery on the circulatory system (principal)
CPT/HCPCS: 36415; 80053; 85025

== ENCOUNTER 2025-04-08 08:51 | Outpatient (CLI) | payer BC, SELFPAY ==
--- NOTE | 2025-04-08 | CONSULT_PTH ---
PATIENT: Marshall Pham Jr. LOC: [facility]#:[id number] AGE/SX: 65/M ROOM: RE04/08/[address]: Carlos Ventura MD : 1960 BED: DIS: 04/08/2025 SPEC #: [id number] RECD: 04/08/25 10:10 STATUS: LISANDRA HUANG #: [id number] SHARMILA: 04/08/25 00:[address]: Carlos Ventura DEPT: [facility] Consult RECD BY: Ina Sol MLT, ([facility]) Tissues: A - Peripheral Smear Procedures: Hematology Consult
--- OUTSIDE RECORDS SUMMARY | 2025-04-08 08:57 | XMS_ITS | Clinical Summary ---
Author Organization [facility] Address [address] [place] [address] Care Team Providers Care Bag Making Machine Operator Name Role Phone Carlos Ventura MD Primary Care Provider [phone] Rosy Valderrama MD Unavailable Rahul Hernandez MD Unavailable [phone] Allergies No known active allergies Medications Fluticasone-Um [...] by mouth daily. 30 tablet 4 Active Additional Information Patient not taking.Reported on 03/24/2025 HYDROcodone-ac etaminophen (NORCO) 5-325 MG tabletIndicati ons:Acute Pain < 7 Day Supply Take 1 tablet by mouth every 4 (four) hours as needed. Indications: Acute Pain < 7 Day Supply 10 tablet Active aspirin 81 MG chewable tablet Chew 1 tablet (81 mg total) by mouth daily. Active furosemide (LASIX) 20 MG tablet Take 1 tablet (20 mg total) by mouth daily. Active warfarin (COUMADIN) 2 MG tablet Take 2 tablets (4 mg total) by mouth daily. Active metoprolol succinate ER (TOPROL-XL) 25 MG 24 hr tablet Take 1 tablet (25 mg total) by mouth daily. Active fexofenadine (GHADA) 180 MG tablet Take 1 tablet (180 mg total) by mouth daily. Active allopurinol (ZYLOPRIM) 100 MG tablet Take 1 tablet (100 mg total) by mouth daily. Active cyclobenzaprin e (FLEXERIL) 5 MG tablet Take 1 tablet (5 mg total) by mouth 2 (two) times a day. Active Active Problems Problem Noted Date Diagnosed Date Acute renal failure (ARF) 03/03/2024 Encounters Date Type Department Care Team Description 03/24/2025 Abstract [facility] [address] [place] [address] Abstract, Doc Pccl 03/24/2025 Telephone [facility] [address] [place] [address] Rosy Valderrama MD Referral 02/20/2025 Scan [facility] [address] [place] [address] Scanned, Doc Pccl from Last 3 Months Social History Tobacco Use Types Packs/Day Years Used Date Smoking Tobacco: Never Smokeless Tobacco: Never Tobacco Cessation:Counseling Given: Not Answered Alcohol Use Standard Drinks/Week Comments Yes 23.3 (1 standard drink = 0.6 oz pure alcohol) vodka every evening [facility] Utilities Answer Date Recorded In the past 12 months has [facility] [employer], or water [employer] threatened to shut off services in your [...] any time in the past 12 m [facility], were you homeless or living [...] 03/03/2024 8:12 PM CDT Plan of Treatment Upcoming Encounters Date Type Department Care Team (Late st Contact Info) Description 04/12/2025 8:[address] [facility] [address] [place] [address] Carlos Ventura MD [address] [place] [address] 04/14/2025 3:15 PM CDT Office Visit [facility] [address] [place], [place] [id number] Rosy Valderrama MD [address], [place] [address] Health Maintenance Due Date Last Done Comments Colorectal Cancer Screening Colonoscopy (10 Years) 1960 DTaP, Tdap and Td Vaccines ( 1 - Tdap) 1979 Pneumococcal Vaccine: 50+ Years (1 of 1 - PCV) 2010 Zoster Vaccines (1 of 2) 2010 COVID-19 Vaccine ( - 2023-2 5 season) 2025 RSV Immunization or 60+ Years (1 - 1-dose 75+ series) 2035 Hepatitis C Completed 03/04/2025, 03/04/2025, 03/04/2024 Meningococcal B Vaccine Aged Out No l onger eligible based on patient's age to complete this topic Meningococcal Vaccine Aged Out No lali fanny eligible based on patient's age to complete this topic RSV Immunizations Under 20 Months Aged Out No longer eligible b ased on patient's age to complete this topic Medical Devices Implanted Type Area Senior Materials Analyst Device Identifier Shelf Expiration Date Model / Serial / Lot Stent Ureteral Contour Vl 4.8fr X 22-30cm - [id number] Implanted:Qty : 1 on 03/05/2024 by Stanley Gonzalez MD at [facility] Stent Right: Ureter [employer] [id number] 12/07/2026 [id number] 50 / / [id number] Stent Ureteral Contour Vl 4.8fr X 22-30cm - [id number] Implanted:Qty : 1 on 03/05/2024 by Stanley Gonzalez MD at [facility] Stent Right: Ureter [employer] [id number] 12/07/2026 [id number] 50 / / [id number] Procedures Procedure Name Priority Date/Time Associated Diagnosis Comments HEPATITIS C ANTIBODY Routine 03/04/2024 6:42 AM CDT from Last 3 Months or Most Recently Relevant to Health Maintenance Results * HEPATITIS C ANTIBODY W/REFLEX (03/04/2024 6:42 AM CDT) HEPATITIS C AB NON-REACTI VE NON-REACTI VE 03/04/2024 8:53 AM CDT [facility] 03/04/2024 6:42 AM CDT Moses Leslie MD LABORATORY Final Result [facility] [address] [place] [address], from Last 3 Months or Most Recently Relevant to Health Maintenance Insurance [facility] Advance Directives * Full Code (Latest Code Status on File) Date Activated Date Inactivated Comments 03/03/2024 9:23 PM 2024 2:50 PM Care Teams 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
--- OUTSIDE RECORDS SUMMARY | 2025-04-08 08:57 | XMS_ITS | Clinical Summary ---
Author Organization [employer] [facility] Address [address] [place] [address] Care Team Providers Care Finger Buffs Assembler Name Role Phone Carlos Ventura MD Primary Care Provider [phone] Source Comments [facility],non-owned Affiliates and Associated Physician Practices is amultiple site organization consisting of ambulatory clinics and hospital sitesin [place], [place], [place] and [place]. This disclosure is being madepursuant to the Care Everywhere program and may not contain all information available regarding this patient. Last updated 18.[employer] Allergies No known active allergies Medications * [...] diff, CMP, please fax results to [facility] Infectious disease clinic, fax [phone], Attn Yesica Cabello PA-C 025 2024 Active ampicillin 2 g in NaCl IV 0.9 % 100 mL - IV ampicillin 2g every 8 hours (renally dosed), consider continuous infusion outpatient to help with easier administration. - Duration of therapy 6 weeks from date of MVR, 03/15/2025 - EOT 04/26/2025. - Weekly labs: CBC w/ diff, CMP, please fax results to [facility] Infectious disease clinic, fax [phone], Attn Yesica Cabello PA-C 025 2024 Active [...] results. Starting 04/05/25, the Anticoagulation Clinic at [facility] will be dosing your [...] valve with severe mitral regurgitation. Per SINTIA, [facility] recommends multi team consult for approved recs [...] Description 04/04/2025 10:30 AM CDT Office Visit [facility] - Cardiothoracic Surgery [address] [place] [address], [place] [id number] Ofelia Mckee, JIG WORKER-Rahul Avelar MD S/P MVR (mitral valve replacement) (Primary Dx) 04/04/2025 9:42 AM CDT - 04/04/2025 11:59 PM CDT Hospital Encounter [facility] [address] [place] [address] Ofelia Mckee, JIG WORKER-CHILDREN LIBRARIAN Discharge Disposition: Home or Self Care 04/04/2025 Travel 03/27/2025 Orders Only [facility] - Cardiothoracic Surgery [address] [facility], [place] [address] Alma Rosa Rodriguez RN 03/24/2025 Telephone [facility] - Infectious Disease [address] [place] [address], [facility] [place] [address] Yesica Cabello PA-C Appointment 03/15/2025 11:24 AM CDT Anesthesia Event [facility] ZUNILDA OP [address] [place] [address] Alexa Page MD Polhemus, Kyle, MD 03/15/2025 8:55 AM CDT - 03/15/2025 2:40 PM CDT Surgery [facility] [place] [address] [place] [phone] Rahul Hernandez MD Mitral valve replacement 03/15/2025 6:25 AM CDT Ancillary Procedure [facility] INTRA OP [address] [place] [address] Cornelia Serra MD Heis, Farah, MD 03/10/2025 8:54 AM CDT - 03/10/2025 10:10 AM CDT Surgery [facility] - Cardiac Development Mgr [address] [place] [address] Selene Duran MD Left Heart Cath 03/09/2025 6:03 PM CDT Anesthesia Event [facility] ZUNILDA OP [address] [place] [address] Prakash De La Torre, Carlitos Flores, DIANDRA 03/09/2025 5:45 PM CDT - 03/09/2025 7:28 PM CDT Surgery [facility] ZUNILDA OP [address] [place] [address] Sedic, Vedrcarlos, DMD EXTRACTION DENTAL (MULTIPLE) 2025 9:22 AM CDT - 2025 11:59 PM CDT Hospital Encounter [facility] - Cardiac Development Mgr [address] [place] [address] Pramod Torres, Shira Cantu MD Discharge Disposition: Home or Self Care 03/01/2025 9:44 PM CDT - 03/23/2025 3:36 PM CDT Hospital Encounter [facility] 8N ACUTE [address] [place] [address] Shira Harris MD Mayer, Joshua C, Adalberto Michele MD Eshetu, Nebiyu A, MD Lawrance, Rahul Santillan MD Cardiothoracic Surgery Discharge Disposition: Home Health Care [facility] 03/01/2025 Travel 03/01/2025 Telephone [facility] PHYS INTERNAL MED [address] [place] [address] Shira Harris MD General (OSH transfer) 03/01/2025 Telephone [facility] INTERNAL MED [facility] [place] [address] Freddy Velazquez MD Hospital Admission from Last [...] and heating? Not hard at all 03/01/2025 [facility] - Occupational Stress [...] any time in the past 12 m [facility], were you homeless or living in a half-way (including now)? 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 Gender Identity Not on file Sexual Orientation [...] [facility] - Cardioth[facility]acic [facility] [address] [place] [address] Ofelia Mckee, JIG WORKER-CHILDREN LIBRARIAN [address] [place] [address] Rahul Hernandez MD [address] [place] [address] [address] [place] [address] 04/18/2025 1:00 PM CDT Appointment [facility] [address] [place] [address] Rahul Hernandez MD [address] [place] [address] [address] [place] [address] 04/20/2025 8:30 AM CDT Office Visit [facility] - Infectious Disease [address] [place] [phone] Yesica Cabello PA-C [address] [place] [address] 05/01/2025 9:00 AM CDT Appointment [facility] IVR [address] [place] [address] Garcia Gil MD [address] [place] [address] Health Maintenance Due Date Last Done Comments [...] this topic Medical Devices Implanted Type Area Tiler Device Identifier Shelf Expiration Date Model / Serial / Lot Ndl Sut 3 Blnt Cut Cbl Strl Spnl Ss Implanted:Qty: 1 on 03/15/2025 by Rahul Hernandez MD at [facility] N/A: Sternum [employer] 08/17/2029 [id number] / / [id number] Plate 6 Hl O Cncv Bone Lf Nonster Implanted:Qty: 1 on 03/15/2025 by Rahul Hernandez MD at [facility] N/A: Sternum [employer] 115.604.06 / / Screw 14mm Lck Nonster Bone Lf Implanted:Qty: 6 on 03/15/2025 by Rahul Hernandez MD at [facility] N/A: Sternum [employer] 100.035.14 / / Screw 16mm Lck Nonster Bone Lf Implanted:Qty: 6 on 03/15/2025 by Rahul Hernandez MD at [facility] N/A: Sternum [employer] 100.035.16 / / Screw 18mm Lck Nonster Bone Lf Implanted:Qty: 6 on 03/15/2025 by Rahul Hernandez MD at [facility] N/A: Sternum [employer] 100.035.18 / / Valve Mtrl 31mm Resilia - [id number] Implanted:Qty: 1 on 03/15/2025 by Rahul Hernandez MD at [facility] N/A: Mitral Valve [employer] 10/12/2029 [id number] / [id number] / Ndl Sut 3 Blnt Cut Cbl Strl Spnl Ss Implanted:Qty: 1 on 03/15/2025 by Rahul Hernandez MD at [facility] N/A: Sternum [employer] [id number] / / Plate Bone H 6 Hl Nonster Lf Implanted:Qty: 2 on 03/15/2025 by Rahul Hernandez MD at [facility] N/A: Sternum [employer] 115.102.06 / / Explanted Type Area Tiler Device Identifier Shelf Expiration Date Model / Serial / Lot Plate Bone H 6 Hl Nonster Lf Explanted:Qty: 2 on 03/15/2025 by Rahul Hernandez MD at [facility] N/A: Mitral Valve [employer] 115.102.06 / / Description:no cost implant per rep; doc pay once program Plate 6 Hl O Cncv Bone Lf Nonster Explanted:Qty: 1 on 03/15/2025 by Rahul Hernandez MD at [facility] N/A: Mitral Valve [employer] 115.604.06 / / Description:no cost implant per rep; doc pay once program Screw 14mm Lck Nonster Bone Lf Explanted:Qty: 6 on 03/15/2025 by Rahul Hernandez MD at [facility] N/A: Mitral Valve [employer] 100.035.14 / / Description:no cost implant per rep; doc pay once program Screw 16mm Lck Nonster Bone Lf Explanted:Qty: 6 on 03/15/2025 by Rahul Hernandez MD at [facility] N/A: Mitral Valve [employer] 100.035.16 / / Description:no cost implant per rep; doc pay once program Screw 18mm Lck Nonster Bone Lf Explanted:Qty: 6 on 03/15/2025 by Rahul Hernandez MD at [facility] N/A: Mitral Valve [employer] 100.035.18 [...] stage 5, GFR less than 15 ml/min ([facility]) XR CHEST 1VW PORTABLE Routine 03/22/2025 4:27 [...] 2:42 PM CDT ACT PLUS - POCT ([facility]) Routine 03/15/2025 2:39 PM CDT FIBRINOGEN ACTIVITY STAT 03/15/2025 2 :34 PM CDT Mitral valve vegetation (HCC) PLATELET COUNT AUTO CITRATED BLOOD STAT 03/15/2025 2:33 PM CDT Mitral valve vegetation (HCC) ACT PLUS - POCT ([facility]) Routine 03/15/2025 2:07 PM CDT BLOOD GAS+COOX+LYTES+METAB ARTERIAL POCT Routine 03/15/2025 2:06 PM CDT PATHOLOGY TISSUE Routine 03/15/2025 1:53 PM CDT Mitral valve insufficiency, unspecified etiology BLOOD GAS+COOX+LYTES+METAB ARTERIAL POCT Routine 03/15/2025 1:30 PM CDT ACT PLUS - POCT ([facility]) Routine 03/15/2025 1:29 PM CDT BLOOD GAS+COOX+LYTES+METAB ARTERIAL POCT Routine 03/15/2025 1:15 PM CDT ACT PLUS - POCT ([facility]) Routine 03/15/2025 1:14 PM CDT ACT PLUS - POCT ([facility]) Routine 03/15/2025 1:04 PM CDT ACT PLUS - POCT ([facility]) Routine 03/15/2025 12:53 PM CDT BLOOD GAS+COOX+LYTES+METAB ARTERIAL POCT Routine 03/15/2025 12:52 PM CDT ACT PLUS - POCT ([facility]) Routine 03/15/2025 12:44 PM CDT BLOOD GAS+COOX+LYTES+METAB ARTERIAL POCT Routine 03/15/2025 12:33 PM CDT PULMONARY ARTERY CATHETER NOTE Routine 03/15/2025 12:19 PM CDT PULMONARY ARTERY CATHETER NOTE Routine 03/15/2025 12:19 PM CDT CENTRAL LINE NOTE Routine 03/15/2025 12:19 PM CDT ENDOTRACHEAL TUBE NOTE Routine 03/15/2025 12:18 PM CDT ARTERIAL LINE NOTE Routine 03/15/2025 12:18 PM CDT TX REPLACEMENT OF MITRAL VALVE 03/15/2025 11:04 AM [...] TUBE NOTE Routine 03/09/2025 6:28 PM CDT TX DENTAL SURGERY PROCEDURE 03/09/2025 5:37 PM CDT Infection Case Notes DOCTOR SEDIC WILL BE TO [facility] AND AVAILABLE TO OPERATE AT 1600. US [...] MD on 04/05/2025 12:33 AM Ofelia Mckee JIG WORKER-CHILDREN LIBRARIAN DIAGNOSTIC IMAGING OR DERABLES Final Result * APHERESIS/TRANSFUSION ORDER (03/24/2025 12:11 PM CDT) Narrative 03/24/2025 12:11 PM CDT Ordered by an unspecified provider. Scanned Document NURSING - VITAL SIGNS AND ASSES SMENT Final Result * (ABNORMAL) CALCIUM IONIZED WHOLE BLOOD (03/23/2025 12:54 AM CDT) Only the most recent of10 resultswithin the time period is included. Calcium Ionized 1.16 mmol/L 03/23/2025 1:17 AM CDT [facility] pH 7.41 7.35 - 7.45 pH 03/23/2025 1:17 AM CDT [facility] Ionized Calcium pH Adjusted 1.16(L) 1.19 - 1.34 mmol/L 03/23/2025 1:17 AM CDT [facility] Blood BLOOD SPECIMEN / Unknown Lab Venipuncture / Unknown 03/23/2025 12:54 AM CDT 03/23/2025 1:12 AM CDT Mariya Botello PA-C LAB - CHEMISTRY ORDERABLES F inal Result [facility] [address] [place] [address], [facility] [phone] * (ABNORMAL) PT-INR (03/23/2025 12:54 AM CDT) Only the most recent of8 resultswithin the time period is included. PT 15.9(H) 12.1 - 14.8 Seconds 03/23/2025 1:37 AM CDT [facility] INR 1.3 See Comment 03/23/2025 1:37 AM T [facility] Comment:The suggested therap eutic range for standard coumadin (warfarin) therapy is an INR of 2.0-3.0. For high-risk patients (Mechanical Mitral Valve Prosthesis, etc.), the suggested prophylactic therapeutic range is an INR of 2.5-3.5. Blood BLOOD SPECIMEN / Unknown Lab Venipuncture / Unknown 03/23/2025 12:54 AM CDT 03/23/2025 1:16 AM CDT Rahul Hernandez MD LAB - COAGULATION O RDERABLES Final Result [facility] [address] [place] [address], [facility] [phone] * (ABNORMAL) COMPREHENSIVE METABOLIC PANEL (03/23/2025 12:54 AM [facility]) Only the most recent of22 resultswithin the time period is included. BUN 61(H) 7 - 26 mg/dL 03/23/2025 1:42 AM [facility] Creatinine 2.95(H) 0.71 - 1.16 mg/dL 03/23/2025 1:42 AM [facility] Sodium 135(L) 136 - 145 mmol/L 03/23/2025 1:42 AM [facility] Potassium 4.6(H) 3.5 - 4.5 mmol/L 03/23/2025 1:42 AM [facility] Chloride 102 98 - 107 mmol/L 03/23/2025 1:42 AM [facility] CO2 24 22 - 29 mmol/L 03/23/2025 1:42 AM [facility] Glucose 101(H) 70 - 99 mg/dL 03/23/2025 1:42 AM [facility] Calcium 9.0 8.4 - 10.2 mg/dL 03/23/2025 1:42 AM [facility] Protein Total 7.1 6.0 - 8.3 g/dL 03/23/2025 1:42 AM [facility] Albumin 3.2(L) 3.4 - 5.0 g/dL 03/23/2025 1:42 AM [facility] Bilirubin Total 0.2 0.2 - 1.2 mg/dL 03/23/2025 1:42 AM [facility] Alkaline Phosphatase 168(H) 40 - 150 U/L 03/23/2025 1:42 AM [facility] ALT 67(H) 5 - 55 U/L 03/23/2025 1:42 AM [facility] AST 43(H) 5 - 34 U/L 03/23/2025 1:42 AM [facility] Anion Gap 9 6 - 16 03/23/2025 1:42 AM [facility] BUN/Creatinine Ratio 21 7 - 23 03/23/2025 1:42 AM [facility] Osmolality Calculated 297(H) 275 - 295 mOsm/kg 03/23/2025 1:42 AM [facility] Albumin/Globulin Ratio 0.8(L) 1.1 - 2.3 03/23/2025 1:42 AM [facility] eGFR by CKD-EPI 23(L) >=90 mL/min/1.7 3 m2 03/23/2025 1:42 AM [facility] Comment:Estimated Glomerular Filtration Rate (eGFR) calculated using the CKD-EPI Creatinine Equation (2020), per the National Kidney Foundation and [place] [employer] Neph[employer] recommendations. Blood BLOOD SPECIMEN / Unknown Lab Venipuncture / Unknown 03/23/2025 12:54 AM CDT 03/23/2025 1:16 AM CDT Rahul Hernandez MD LAB - CHEMISTRY ORD ERABLES Final Result [address] [address], [facility] [phone] * PHOSPHORUS BLOOD (03/23/2025 12:54 AM CDT) Only the most recent of23 resultswithin the time period is included. Phosphorus 3.7 2.8 - 5.1 mg/dL 03/23/2025 1:42 AM T [facility] Blood BLOOD SPECIMEN / Unknown Lab Venipuncture / Unknown 03/23/2025 12:54 AM CDT 03/23/2025 1:16 AM CDT Mariya Botello PA-C LAB - CHEMISTRY ORDERABLES F inal Result Performing Organization Address City/[facility]/ZIP Co de Phone Number [address] [address], [facility] [phone] * MAGNESIUM BLOOD (03/23/2025 12:54 AM CDT) Only the most recent of23 resultswithin the time period is included. Magnesium 2.0 1.6 - 2.6 mg/dL 03/23/2025 1:42 AM [facility] Blood BLOOD SPECIMEN / Unknown Lab Venipuncture / Unknown 03/23/2025 12:54 AM CDT 03/23/2025 1:16 AM CDT Mariya Botello PA-C LAB - CHEMISTRY ORDERABLES F inal Result [facility] [address] [place] [address], [facility] [phone] * (ABNORMAL) CBC W/O DIFFERENTIAL (03/23/2025 12:53 AM CDT) Only the most recent of13 resultswithin the time period is included. WBC 12.0(H) 4.0 - 10.7 x10E9/L 03/23/2025 1:22 AM [facility] RBC Count 3.22(L) 4.30 - 5.80 x10E12/L 03/23/2025 1:22 AM [facility] Hemoglobin 9.1(L) 13.3 - 17.5 g/dL 03/23/2025 1:22 AM [facility] Hematocrit 29.0(L) 38.7 - 51.1 % 03/23/2025 1:22 AM [facility] MCV 90.1 80.0 - 98.0 fL 03/23/2025 1:22 AM [facility] MCH 28.3 26.7 - 33.6 pg 03/23/2025 1:22 AM [facility] MCHC 31.4(L) 31.7 - 36.3 g/dL 03/23/2025 1:22 AM [facility] RDW-CV 19.8(H) 11.3 - 14.8 % 03/23/2025 1:22 AM [facility] Platelet Count 334 150 - 420 x10E9/L 03/23/2025 1:22 AM CDT [facility] MPV 10.2 7.8 - 11.4 fL 03/23/2025 1:22 AM CDT [facility] Blood BLOOD SPECIMEN / Unknown Lab Venipuncture / Unknown 03/23/2025 12:53 AM CDT 03/23/2025 1:15 AM CDT Mariya Botello PA-C LAB - HEMATOLOGY ORDERABLES Final Result [facility] [address] [place] [address], [facility] [phone] * IR Central Line Insert Tunnel (03/22/2025 [...] stage 5, GFR less than 15 ml/min ([facility]) Additional History: Concrete Batcher: Garcia Gil MD COMPARISON: None. FLUOROSCOPY DOSE: [...] evaluation, please review the evaluation forms in [facility]. For details on monitored clinical parameters during the intra-service sedation time, please review the procedure nurse documentation in [facility]. I was present for the Entire procedure. Procedure Note Garcia Gil MD - 03/22/2025 PROCEDURE: IR CENTRAL LINE INSERT TUNNEL DATE/TIME OF EXAM: 03/22/2025 12:53 PM CLINICAL INFORMATION: None relevant/not provided if blank. Indication: R09.89: Endocarditis, suspected N18.5: CKD (chronic kidney disease) stage 5, GFR less than 15 ml/min([facility]) Additional History: Concrete Batcher: Garcia Gil MD COMPARISON: None. FLUOROSCOPY DOSE: [...] response to care. Intra-service sedation start time [id number] and end time was 1228 during which I was present. Total physician intra-service sedation time was 14 minutes. For details on pre-moderate sedation and post-moderate sedation patient evaluation, please reviewthe evaluation forms in [facility]. For details on monitored clinical parameters during the intra-service sedation time, please review the procedurenurse documentation in [facility]. I was present for the Entire [...] DATE/TIME OF EXAM: 03/22/2025 4:27 AM, LOCATION [facility] INDICATION: I34.0: Mitral valve insufficiency, unspecified [...] spine. Report dictated by Jamie Rucker MD, (resident in diagnostic radiology). > Dictated by Epidemiology Internship I, Jamie Barriga MD have personally reviewed and interpreted this examination/study. > Interpreting Provider: Jamie Barriga MD on 03/22/2025 7:08 PM Procedure Note Jamie Barriga MD - 03/22/2025 PROCEDURE: XR CHEST 1VW PORTABLE, DATE/TIME OF EXAM: 03/22/2025 4:27 AM, LOCATION [facility] INDICATION: I34.0: Mitral valve insufficiency, unspecified [...] spine. Report dictated by Jamie Rucker MD, (resident in diagnostic radiology). > Dictated by Epidemiology Internship I, Jamie Barriga MD have personally reviewed and interpreted this examination/study. > Interpreting Provider: Jamie Barriga MD on 03/22/2025 7:08 PM [place] Suhail JIG WORKER-CHILDREN LIBRARIAN DIAGNOSTIC IMAGI NG ORDERABLES Final Result * EKG 12-Lead (03/20/2025 12:00 PM CDT) Only the most recent of7 resultswithin the time period is included. Ventricular Rate 125 BPM [facility] MUSE Atrial Rate 125 BPM [facility] MUSE QRS Duration ms 90 ms [facility] MUSE Q-T Interval ms 336 ms [facility] MUSE QTC Calculation (Bezet) 484 ms [facility] MUSE Calculated P Bonnie 55 degrees [facility] MUSE Calculated R Bonnie 69 degrees SL MUSE Calculated T Bonnie 55 degrees [facility] MUSE Interpretation EKG SINUS TACHYCARDIA NONSPECIFIC ST ABNORMALITY ABNORMAL ECG WHEN COMPARED WITH ECG OF 20-MAR-2025 11:59, SINUS TACHYCARDIA HAS REPLACED JUNCTIONAL RHYTHM Confirmed by PRASAD LOUIS MD ([id number]) on 03/26/2025 10:12:19 PM [facility] MUSE 03/20/2025 12:0 0 PM CDT 03/26/2025 10:12 PM CDT Yousuf Chaudhari PA-C ECG ORDERABLES Edited Resu lt - Final [facility] MUSE * (ABNORMAL) BASIC METABOLIC PANEL (CALCIUM TOTAL) (03/19/2025 8:44 PM CDT) Only the most recent of3 resultswithin the time period is included. BUN 54(H) 7 - 26 mg/dL 03/19/2025 9:27 PM CDT [facility] Creatinine 2.92(H) 0.71 - 1.16 mg/dL 03/19/2025 9:27 PM [facility] Sodium 134(L) 136 - 145 mmol/L 03/19/2025 9:27 PM [facility] Potassium 3.7 3.5 - 4.5 mmol/L 03/19/2025 9:27 PM [facility] Chloride 101 98 - 107 mmol/L 03/19/2025 9:27 PM [facility] CO2 22 22 - 29 mmol/L 03/19/2025 9:27 PM [facility] Glucose 122(H) 70 - 99 mg/dL 03/19/2025 9:27 PM [facility] Calcium 8.7 8.4 - 10.2 mg/dL 03/19/2025 9:27 PM [facility] Anion Gap 11 6 - 16 03/19/2025 9:27 PM [facility] BUN/Creatinine Ratio 18 7 - 23 03/19/2025 9:27 PM [facility] Osmolality Calculated 294 275 - 295 mOsm/kg 03/19/2025 9:27 PM [facility] eGFR by CKD-EPI 23(L) >=90 mL/min/1.7 3 m2 03/19/2025 9:27 PM [facility] Comment:Estimated Glomerular Filtration Rate (eGFR) calculated using the CKD-EPI Creatinine Equation (2020), per the National Kidney Foundation and [place] [employer] Nephrology recommendations. Blood BLOOD SPECIMEN / Unknown Venipuncture / Unknown 03/19/2025 8:44 PM CDT 03/19/2025 8:58 PM CDT us Nayan Flaquito Hernandez JIG WORKER-CHILDREN LIBRARIAN LAB - CHEMISTRY ORD ERABLES Final Result [facility] [address] [place] [address], [facility] [phone] * ECHO COMPLETE W CONTRAST (03/19/2025 10:47 AM CDT) Only the most recent of2 resultswithin the time period is included. IVSd 2D 0.99 cm SSM CV FUJ I PACS LVIDd 4.303 cm SSM CV FUJ I PACS LVIDs 2.878 cm SSM CV [facility] I PACS LVOT diam 1.94 cm SSM CV [facility] I PACS LVPWd 1.189 cm SSM CV [facility] I PACS LV biplane EF 67.255 % SSM CV FUJI PACS LV A2C EF 59.742 % SSM CV [facility] I PACS LV A4C EF 72.856 % SSM CV [facility] I PACS LV EDV A2C 100.563 ml SSM CV FU JI PACS LV EDV A4C 142.773 ml SSM CV FU JI PACS LV ESV A2C 40.485 ml SSM CV FU JI PACS LV ESV A4C 38.754 ml SSM CV FU JI PACS LVOT pk grad 6.299 mmHg [facility] CV [facility] P[facility] LVOT pk valeriano 125.487 cm/s SSM CV F UJI PACS LVOT VTI 21.326 cm SSM CV [facility] I PACS RV-valdez basal diam 3.541 cm S[facility] CV [facility] PACS RVIDd 3.315 cm SSM CV [facility] I PACS RVOT diam Doppler 2.414 cm SS M CV [facility] P[facility] RVOT pk valeriano 88.733 cm/s SSM CV F UJI PACS RVOT VTI 15.158 cm SSM CV [facility] I PACS LA size 4.112 cm SSM CV [facility] I PACS LA vol BP 78.882 ml SSM CV [facility] I PACS RA area 17.37 cm SSM CV [facility] AV area pk valeriano 2[facility]416 cm SSM CV [facility] AV area cont VTI 2.313 cm SSM CV [facility] PACS AV pk grad 9.427 mmHg SSM CV FU JI PACS AV mn grad 5.644 mmHg SSM CV FU JI PACS AV pk valeriano 153.514 cm/s SSM CV [facility] I PACS AV VTI 27.253 cm SSM CV [facility] I PACS MV A pk valeriano 97.364 cm/s SSM CV F UJI PACS MV E pk valeriano 123.515 cm/s SSM CV F U[facility]I PACS MV E' lateral valeriano 4.132 cm/s SS M CV [facility] PACS MV mn grad 2.134 mmHg [facility] CV FU JI PACS MV VTI 25.234 cm [facility]SM CV [facility] I PACS PV pk valeriano 101.698 cm/s [...] 10:16 AM Patient Status: I/P Study Site: [facility] Primary Location: [facility] EStudy Info Technical Quality: Fair Exam Type: [...] Provider: Rahul Hernandez Attending Physician: Rahul Hernandez Valve Mechanic: Jose G Casper Left Ventricle The left [...] 10:16 AM Patient Status: I/P Study Site: [facility] Primary Location: [facility] Technical Quality: Fair Exam Type: ECHO COMPLETE W CONTRAST Indications I34.0 - Mitral valve insufficiency, unspecified etiology Procedure(s) * A complete 2D, color Doppler, spectral Doppler, and M-Modetransthoracic echocardiogram was performed. Contrast/Agitated Saline Contrast / Saline: Definity Amount: 1.00 ml Administered By: Jose G Casper Reaction to Contrast: no Staff Referring Physician: Rahul Hernandez Ordering Provider: Rahul Hernandez Attending Physician: Rahul Hernandez Valve Mechanic: Jose G Casper Left Ventricle The left [...] - 99 mg/dL 03/19/2025 8:27 AM CDT [facility] Specimen Type Arterial/C apillary 03/19/2025 8:27 AM [facility] Blood BLOOD SPECIMEN / Unknown 03/19/2025 8:22 AM CDT 03/19/2025 8:27 AM CDT us Rahul Hernandez MD LAB - POINT OF CARE ORDERABLES Final Result [facility] [address] [place] [address], [facility] [phone] * (ABNORMAL) HEPATIC FUNCTION PANEL (03/19/2025 4:28 AM CDT) Pathologist [facility] [place] Protein Total 6.2 6.0 - 8.3 g/dL 025 7:34 AM [facility] Albumin 3.1(L) 3.4 - 5.0 g/dL 03/19/2025 7:34 AM [facility] Bilirubin Total 0.4 0.2 - 1.2 mg/dL 02/19 7:34 AM [facility] Bilirubin Conjugated 0.2 0.1 - 0.5 mg/dL 03/19/2025 7:34 AM [facility] Bilirubin Unconjugated 0.2 Unconjugated Bilirubin is a calculated value: Reference ranges have not been established. mg/dL 03/19/2025 7:34 AM [facility] Alkaline Phosphatase 198(H) 40 - 150 U/L 03/19/2025 7:34 AM [facility] ALT 166(H) 5 - 55 U/L 03/19/2025 7:34 AM [facility] AST 173(H) 5 - 34 U/L 03/19/2025 7:34 AM [facility] Albumin/Globulin Ratio 1.0(L) 1.1 - 2.3 03/19/2025 7:34 AM [facility] Blood BLOOD SPECIMEN / Unknown Venipuncture / Unknown 03/19/2025 4:28 AM CDT 03/19/2025 4:38 AM CDT us Jennyfer Dallas DO LAB - CHEMISTRY ORDERABLES Final Result [facility] [address] [place] [address], [facility] [phone] * TRANSFUSE RED BLOOD CELL LEUKOREDUCED UNIT(S) (03/16/2025 10:21 PM CDT) Rahul Hernandez MD NURSING - BLOOD PRO D TRANSFUSION Final Result * TYPE + SCREEN PANEL (03/16/2025 5:39 PM CDT) Only the most recent of3 resultswithin the time period is included. 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 SVO2 for Recalibration 48.1(L) 66.0 - 77.0 % 03/16/2025 3:20 AM CDT [facility] Blood BLOOD SPECIMEN / Unknown Venipuncture / Unknown 03/16/2025 3:11 AM CDT 03/16/2025 3:16 AM CDT Mariyayessi Botello PA-C LAB - CHEMISTRY ORDERABLES F inal Result [address] [address], [facility] [phone] * HEMOGLOBIN A1C (03/16/2025 3:11 AM CDT) Hemoglobin A1c 5.3 <=5.6 % 03/16/2025 10:31 AM CDT [facility] Estimated Average Glucose 105 mg/dL 03/16/2025 10:31 AM CDT [facility] Comment: HbA1c Interpretation: Normal : < 5.7% Pre-diabetes: 5.7-6.4% Diabetes: Equal to or greater than 6.5% Test results diagnostic of diabetes should be repeated for confirmation. Treatment target values recommended by ADA and other clinical organizations should be used to evaluate metabolic control in patients. Reference: [place] [employer], Standards of Care in Diabetes [...] ORDERABLES F inal Result Performing Organization Address City/[facility]/ZIP Co de Phone Number [address] [address], [facility] [phone] * (ABNORMAL) LACTIC ACID BLOOD (03/16/2025 3:11 AM CDT) Only the most recent of3 resultswithin the time period is included. Lactic Acid-Stat 3.7(HH) <=2.0 mmol/L 03/16/2025 4:02 AM CDT [facility] Blood BLOOD SPECIMEN / Unknown Venipuncture / Unknown 03/16/2025 3:11 AM CDT 03/16/2025 3:21 AM CDT us Nayanbita Hernandez JIG WORKER-CHILDREN LIBRARIAN LAB - CHEMISTRY ORD ERABLES Final Result [facility] [address] [place] [address], [facility] [phone] * (ABNORMAL) BLOOD GASES ART + COOX PANEL (03/16/2025 3:11 AM CDT) Only the most recent of4 resultswithin the time period is included. pH Arterial 7.38 7.35 - 7.45 pH 03/16/2025 3:21 AM [facility] pO2 Arterial 104(H) 80 - 100 mmHg 03/16/2025 3:21 AM [facility] pCO2 Arterial 31(L) 35 - 45 mmHg 3:21 AM [facility] HCO3 Arterial 18.3(L) 20.0 - 30.0 mmol/L 03/16/2025 3:21 AM [facility] BE Arterial -6.1(L) -2.0 - 2.0 mmol/L 03/16/2025 3:21 AM [facility] Oxyhemoglobin Arterial 96.3 % 03/16/2025 3:21 AM [facility] Dexoyhemoglobin (HHB) % <1.0 % 03/16/2025 3:21 AM [facility] Methemoglobin 1.3 0.0 - 2.0 % 03/16/2025 3:21 AM [facility] Carboxyhemoglobin 1.8 0.0 - 2.0 % 2024 3:21 AM [facility] O2 Content Arterial 10.6 Interpret within clinical context ml/dL 03/16/2025 3:21 AM [facility] Hemoglobin by COOX 7.7(L) 12.0 - 17.6 g/dL 03/16/2025 3:21 AM [facility] O2 Saturation Arterial 99 90 - 100 % 03/16/2025 3:21 AM [facility] FI O2 Arterial 28.0 % 03/16/2025 3:21 AM CDT [facility] Blood, arterial ARTERIAL BLOOD SPECIMEN / Unknown Arterial Puncture / Unknown 03/16/2025 3:11 AM CDT 03/16/2025 3:16 AM CDT Narrative [facility] - 03/16/2025 3:21 AM CDT Carboxyhemoglobin Normal Concentration: Non-smokers: 0-2%; Smokers: 0-9%; Toxic: >20% us Nayan Hernandez JIG WORKER-CHILDREN LIBRARIAN LAB - BLOOD GASES O RDERABLES Final Result [address] [address], [facility] [phone] * TRANSFUSE RED BLOOD CELL LEUKOREDUCED UNIT(S) [...] - 400 mg/dL 03/15/2025 6:03 PM CDT [facility] Blood BLOOD SPECIMEN / Unknown Venipuncture / Unknown 03/15/2025 5:32 PM CDT 03/15/2025 5:35 PM CDT Mariya Ayan PA-C LAB - COAGULATION ORDERABLES Final Result Performing Organization Address [facility]/ZIP Co de Phone Number [address] [address], [place] [phone] * PTT (03/15/2025 5:32 PM CDT) Only the most recent of2 resultswithin the time period is included. APTT 29.8 23.0 - 38.4 Seconds 03/15/2025 6:05 PM CDT [facility] Comment:Suggested therapeuti c range for full dose I.V. unfractionated heparin therapy for venous thromboembolism is 71 to 109 seconds. Blood BLOOD SPECIMEN / Unknown Venipuncture / Unknown 03/15/2025 5:32 PM CDT 03/15/2025 5:35 PM CDT Mariya Ayan GARRETT-C LAB - COAGULATION ORDERABLES Final Result Performing Organization Address [facility]/ZIP Co de Phone Number [address] [address], [place] [phone] * (ABNORMAL) DIFFERENTIAL MANUAL (03/15/2025 5:32 PM CDT) Neutrophil % 90(H) 41 - 74 % 03/15/2025 6:09 PM CDT [facility] Lymphocyte % 6(L) 17 - 47 % 03/15/2025 6:09 PM CDT [facility] Monocyte % 4 3 - 11 % 03/15/2025 6:09 PM CDT [facility] Neutrophil Absolute 19.53(H) 1.60 - 7.50 x10E9/L 03/15/2025 6:09 PM CDT [facility] Lymphocyte Absolute 1.30 1.00 - 4.40 x10E9/L 03/15/2025 6:09 PM CDT [facility] Monocyte Absolute 0.87 0.15 - 1.00 x10E9/L 03/15/2025 6:09 PM [facility] RBC Morphology REVIEWED 03/15/2025 6:09 PM [facility] Large Platelets PRESENT(A) (none) 03/15/2025 6:09 PM [facility] Blood BLOOD SPECIMEN / Unknown Venipuncture / Unknown 03/15/2025 5:32 PM CDT 03/15/2025 5:38 PM CDT Mariya Botello PA-C LAB - HEMATOLOGY ORDERABLES Final Result [facility] [address] [place] [address], [facility] [phone] * (ABNORMAL) CBC W AUTO DIFFERENTIAL (03/15/2025 5:32 PM CDT) Only the most recent of14 resultswithin the time period is included. WBC 21.7(H) 4.0 - 10.7 x10E9/L 03/15/2025 6:09 PM [facility] RBC Count 2.71(L) 4.30 - 5.80 x10E12/L 03/15/2025 6:09 PM [facility] Hemoglobin 7.9(L) 13.3 - 17.5 g/dL 03/15/2025 6:09 PM [facility] Hematocrit 24.0(L) 38.7 - 51.1 % 03/15/2025 6:09 PM [facility] MCV 88.6 80.0 - 98.0 fL 03/15/2025 6:09 PM [facility] MCH 29.2 26.7 - 33.6 pg 03/15/2025 6:09 PM [facility] MCHC 32.9 31.7 - 36.3 g/dL 03/15/2025 6:09 PM [facility] RDW-CV 15.9(H) 11.3 - 14.8 % 03/15/2025 6:09 PM [facility] Platelet Count 251 150 - 420 x10E9/L 03/15/2025 6:09 PM [facility] MPV 9.5 7.8 - 11.4 fL 03/15/2025 6:09 PM CDT [facility] Blood BLOOD SPECIMEN / Unknown Venipuncture / Unknown 03/15/2025 5:32 PM CDT 03/15/2025 5:38 PM CDT Mariya Botello PA-C LAB - HEMATOLOGY ORDERABLES Final Result [facility] [address] [place] [address], [place] [phone] * CULTURE WOUND+GRAM STAIN (03/15/2025 5:06 PM CDT) Culture No growth LAVELLE 03/19/2025 1:10 PM CDT [facility] MICROBIOLOG[facility] Gram Stain Light Polymorphonuclear cells 03/19/2025 1:10 PM CDT [facility] MICROBIOLOG[facility] Gram Stain No organisms seen 025 1:10 PM CDT [facility] MICROBIOLOGY Microbiology TISSUE SPECIMEN / Unknown Collection / Unknown 03/15/2025 5:06 PM CDT 03/15/2025 5:06 PM CDT Rahul Hernandez MD LAB - MICROBIOLOGY ORDERABLES Final Result Performing Organization Address City/[facility]/ZIP Co de Phone Number [facility] MICROBIOLOGY [address] [place] [address], [facility] [phone] * CULTURE ANAEROBE (03/15/2025 5:06 PM CDT) Culture No anaerobic organisms isolated LAVELLE 03/20/2025 12:08 PM CDT [facility] MICROBIOLOGY Microbiology TISSUE SPECIMEN / Unknown Collection / Unknown 03/15/2025 5:06 PM CDT 03/15/2025 5:06 PM CDT Rahul Hernandez MD LAB - MICROBIOLOGY ORDERABLES Final Result [facility]CRO[facility] [address] [place] [address] [phone] * TRANSFUSE FRESH FROZEN PLASMA UNIT(S) (03/15/2025 [...] were not saved. I personally performed. CPT 80903 with bilateral modifier. Alexa Page MD GENERAL [...] 7.35 - 7.45 pH 03/15/2025 4:00 PM [facility] pO2 Arterial 384(H) 80 - 100 mmHg 03/15/2025 4:00 PM [facility] pCO2 Arterial 41 35 - 45 mmHg 4:00 PM [facility] HCO3 Arterial 22.1 20.0 - 30.0 mmol/L 03/15/2025 4:00 PM [facility] BE Arterial -3.4(L) -2.0 - 2.0 mmol/L 03/15/2025 4:00 PM [facility] Oxyhemoglobin Arterial 97.9 % 03/15/2025 4:00 PM [facility] Dexoyhemoglobin (HHB) % <1.0 % 03/15/2025 4:00 PM [facility] Methemoglobin 1.1 0.0 - 2.0 % 03/15/2025 4:00 PM [facility] Carboxyhemoglobin 1.0 0.0 - 2.0 % 2024 4:00 PM [facility] Comment:Carboxyhemoglobin No rmal Concentration: Non-smokers: 0-2%; Smokers: 0- 9%; Toxic: >20% O2 Content Arterial 13.2 Interpret within clinical context ml/dL 03/15/2025 4:00 PM [facility] Hemoglobin by COOX 8.8(L) 12.0 - 17.6 g/dL 03/15/2025 4:00 PM [facility] O2 Saturation Arterial 100 90 - 100 % 03/15/2025 4:00 PM [facility] Sodium Whole Blood 138 135 - 145 mmol/L 03/15/2025 4:00 PM [facility] Potassium Whole Blood 4.1 3.5 - 5.5 mmol/L 03/15/2025 4:00 PM [facility] Chloride WB 107 78 - 107 mmol/L 03/15/2025 4:00 PM [facility] Calcium Ionized 1.36 mmol/L 4:00 PM [facility] Ionized Calcium pH Adjusted 1.33 1.19 - 1.34 mmol/L 03/15/2025 4:00 PM [facility] Anion Gap (AG) Arterial 9 6 - 16 mmol/L 03/15/2025 4:00 PM [facility] Glucose WB 193(H) 70 - 99 mg/dL 03/15/2025 4:00 PM [facility] Lactic Acid Whole Blood 1.8 <=2.0 mmol/L 03/15/2025 4:00 PM [facility] Blood, arterial ARTERIAL BLOOD SPECIMEN / Unknown 03/15/2025 4:00 PM CDT 03/15/2025 4:00 PM CDT us Cornelia Serra MD LAB - POINT OF CARE ORDERABLE S Final Result [facility] [address] [place] [address], [facility] [phone] * TRANSFUSE RED BLOOD CELL LEUKOREDUCED UNIT(S) (03/15/2025 3:30 PM CDT) us Rahul Hernandez MD NURSING - BLOOD PRO D TRANSFUSION Final Result * ACT PLUS - POCT ([facility]) (03/15/2025 3:17 PM CDT) Only the most recent of8 resultswithin the time period is included. [facility] ACT PLUS 112 See result comments sec 03/15/2025 3:21 PM [facility] Blood BLOOD SPECIMEN / Unknown 03/15/2025 3:17 PM CDT 03/15/2025 3:21 PM CDT Narrative [facility] - 03/15/2025 3:21 PM CDT ACT+ Therapeutic ranges for the ACT+ test in surgery areas are: Greater than (>) 360 seconds for surgical patients Greater than (>) 450 seconds for surgical bypass patients Cornelia Serra MD LAB - COAGULATION ORDERABLES Final Result [facility] [address] [place] [address], [facility] [phone] * (ABNORMAL) TEG 6 GLOBAL HEMOSTASIS WITH HEPARIN NEUTRALIZATION (03/15/2025 3:10 PM CDT) [facility] CITRATED KAOLIN R (CK-R REACTION TIME) 5.4 4.6 - 9.1 min 03/15/2025 4:11 PM T [facility] CITRATED [place]IN MA (CK-MA MAX AMPLITUDE) 70.3(H) 52.0 - 69.0 mm 03/15/2025 4:11 PM [facility] CITRATED [place] HEPARINASE R ( [employer] R REACTION TIME) 4.7 4.3 - 8.3 min 03/15/2025 4:11 PM [facility] CITRATED K[place]OLIN HEPARINASE LY30 ([employer] LY30 LYSIS) 0.0 0.0 - 3.2 % 03/15/2025 4:11 PM [facility] CITRATED RAPIDTEG HEPARINASE MA ( [facility] MA MAX AMPLITUDE) 69.5(H) 53.0 - 69.0 mm 03/15/2025 4:11 PM T [facility] CITRATED FUCTIONAL FIBRINOGEN HEPARINASE ( [facility] MAX AMPLITUDE) 39.1(H) 15.0 - 34.0 mm 03/15/2025 4:11 PM [facility] Blood BLOOD SPECIMEN / Unknown 03/15/2025 3:10 PM CDT 03/15/2025 3:18 PM CDT Alexa Page MD LAB - HEMATOLOGY ORDERABL ES Final Result Performing Organization Address [facility] Co de Phone Number [address] [address], [facility] [phone] * PLATELET COUNT AUTO CITRATED BLOOD (03/15/2025 2:33 PM CDT) Platelet Count Citrated 215 150 - 420 x10E9/L 03/15/2025 3:49 PM CDT [facility] Blood BLOOD SPECIMEN / Unknown Venipuncture / Unknown 03/15/2025 2:33 PM CDT 03/15/2025 2:33 PM CDT Narrative [facility] - 03/15/2025 3:49 PM CDT This test was developed and its performance characteristics determined by the clinical laboratories of [facility] and [facility]. It has not been cleared and approved by the [place] Food and Drug Administration. Alexa Page MD LAB - HEMATOLOGY ORDERABL ES Final Result Performing Organization Address City/[facility] Co de Phone Number [address] [address], [place] [phone] * PATHOLOGY TISSUE (03/15/2025 1:53 PM CDT) Case Report Surgical Pathology Report Case: [id number] Authorizing Provider: Rahul Hernandez Collected: 03/15/2025 01:53 PM MD Tyrell Ordering Location: [facility] ZUNILDA OP Received: 03/16/2025 05:08 AM Pathologist: Ericka Robert MD Specimen: Mitral Valve, Anterior leaflet of mitral valve 03/17/2025 3:58 PM CDT [facility] Final Diagnosis Heart, mitral valve, replacement (A): - Endocarditis 03/17/2025 3:58 PM CDT [facility] at 1558 CDT Microscopic Description [...] are no vegetations or calcific nodules present. [employer] sections are submitted in a single cassette labeled A1. RB 03/17/2025 3:58 PM CDT [facility] Pathologist Location at [facility] 03/17/2025 3:58 PM CDT [facility] Disclaimer The performance characteristics of all immunohistochemical and indirect immunofluorescence stains (if any) cited in this report were determined by the Histopathology Laboratory of [facility]. Some of these tests were developed [...] LAB Embedded Images 03/17/2025 3:58 PM CDT [facility] Resection without Tumor ENTIRE MITRAL VALVE / Unknown 03/15/2025 1:53 PM CDT 03/16/2025 5:08 AM CDT Comment:Pre-op diagnosis: mitral valve regurgitation Rahul Hernandez MD LAB - PATHOLOGY/CYT OLOGY ORDERABLES Final Result [facility] [address] [facility] [place] [address], [facility] [phone] * PA CATH PERFORMABLE, INTRODUCER (03/15/2025 12:19 [...] Garcia DO - 03/15/2025 12:18 PM CDT Ricik Shields DO 03/15/2025 12:18 PM Endotracheal Tube Placement: Patient Location: OR. Intubation Event Date/Time: 03/15/2025 11:38 AM Procedure: intubation (61972) Procedure Section: Sedation: under general anesthesia. Indications [...] Time: 03/15/2025 11:32 AM Procedure: Arterial Line (08110) Procedure Section Indications: continuous blood pressure monitoring. [...] See Separate Report 03/15/2025 9:31 AM CDT [facility] Other MISCELLANEOUS SAMPLES / Unknown 03/15/2025 8:06 AM CDT 03/15/2025 8:07 AM CDT us Rahul Hernandez MD LAB - BLOOD GASES O RDERABLES Final Result [address] [address], [facility] [phone] * BLOOD GAS ART+LYTES+METAB+COOX POC NOTIF (03/15/2025 8:06 AM CDT) Comment Notification Label Only - See Separate Report 03/15/2025 9:31 AM CDT [facility] Other MISCELLANEOUS SAMPLES / Unknown 03/15/2025 8:06 AM CDT 03/15/2025 8:07 AM CDT us Rahul Hernandez MD LAB - BLOOD GASES O RDERABLES Final Result [address] [address], [place] [phone] * ECHO ANES SINTIA INTRAOP (03/15/2025 6:23 [...] 10:01 AM Patient Status: I/P Study Site: [facility] Primary Location: [facility] EStud Info Exam Type: ECHO ANES SINTIA [...] 10:01 AM Patient Status: I/P Study Site: [facility] Primary Location: [facility] EStudy Info Exam Type: ECHO ANES SINTIA [...] UNIT(S) (03/14/2025 5:37 PM CDT) Ofelia Mckee APRN-CHILDREN LIBRARIAN NURSING - BLOOD PROD TRANSFUSION Final Result * PREPARE (CROSSMATCH) RBC UNIT(S), 1 Units (03/14/2025 5:21 AM CDT) Only the most recent of6 resultswithin the time period is included. Unit Description N/A [facility] BLOOD BANK LAB Blood Bank BLOOD SPECIMEN / Unknown 03/14/2025 5:21 AM CDT 03/14/2025 5:53 AM CDT Rahul Hernandez MD LAB - BLOOD BANK OR DERABLES Final Result [facility] BLOOD BANK LAB [address] [place] [address], [facility] [phone] * PREPARE PLATELET PHERESIS UNIT(S), 2 Units (03/14/2025 5:21 AM CDT) Only the most recent of2 resultswithin the time period is included. Unit Description LR PLT Phere B7 [facility] BLOOD BANK LAB Unit ABO O [facility] BLOOD [facility]ANK LAB Unit Rh POS [facility] BLOOD BANK LAB Product Number P27 [facility] B LOOD BANK LAB Unit Donor # [id number] [facility] BLOOD BANK LAB Unit Status transfused [facility] BLO OD BANK LAB Product Code [id number] [facility] BLO OD BANK LAB Blood Type Barcode 5100 [facility] BLOOD BANK LAB Expiration Date [id number] S BLOOD BANK LAB Unit Description LR PLT Phere B7 [facility] BLOOD [facility]ANK LAB Unit ABO O [facility] BLOOD BANK LAB Unit Rh POS [facility] BLOOD BANK LAB Product Number P27 [facility] B LOOD BANK LAB Unit Donor # [id number] [facility] Unit Status released [facility] BLOO D [facility]ANK LAB Product [facility] [id number] [facility] BLO OD [facility]ANK LAB Blood Type Barcode 5100 [facility] Expiration Date [id number] S BLOOD BANK LAB Blood Bank BLOOD SPECIMEN / Unknown 03/14/2025 5:21 AM CDT 03/14/2025 5:53 AM CDT Rahul Hernandez MD LAB - BLOOD BANK OR DERABLES Final Result [facility] [address] [place] [address], [facility] [phone] * [facility] UNIT(S), 4 Units (03/14/2025 5:21 AM CDT) Only the most recent of2 resultswithin the time period is included. Unit Description Liquid Plasma [facility] Unit ABO A [facility] Unit Rh POS [facility] Product [facility] [id number] [facility] B LOOD [facility]ANK LAB Unit Donor # [id number] [facility] Unit Status released [facility] BLOO D [facility]ANK LAB Product [facility] [id number] [facility] B[facility] OD [facility]ANK LAB Blood Type Barcode 6200 [facility]piration Date S BLOOD BANK LAB Unit Description Liquid Plasma [facility] Unit ABO A [facility] Unit Rh POS [facility] BLOOD BANK LAB Product Number [id number] [facility] B LOOD BANK LAB Unit Donor # [id number] [facility] BLOOD BANK LAB Unit Status transfused [facility] BLO OD BANK LAB Product Code [id number] [facility] BLO OD BANK LAB Blood Type Barcode 6200 [facility] BLOOD BANK LAB Expiration Date [id number] S BLOOD BANK LAB Blood Bank BLOOD SPECIMEN / Unknown 03/14/2025 5:21 AM CDT 03/14/2025 5:53 AM CDT Rahul Hernandez MD LAB - BLOOD BANK OR DERABLES Final Result [facility] BLOOD BANK LAB [address] [place] [address], [facility] [phone] * (ABNORMAL) URINALYSIS REFLEX MICROSCOPIC REFLEX CULTURE (03/13/2025 9:10 AM CDT) Only the most recent of2 resultswithin the time period is included. Color UA Colorless(A) Yellow, Straw 03/13/2025 9:50 AM CDT [facility] LABORATORY [facility] Clarity UA Clear Clear 03/13/2025 9:50 AM CDT [facility] Glucose UA 1+(A) Normal 03/13/2025 9:50 AM [facility] Bilirubin UA Negative Negative 03/13/2025 9:50 AM [facility] Ketone UA Negative Negative 03/13/2025 9:50 AM [facility] Specific [place] UA 1.012 1.005 - 1.030 03/13/2025 9:50 AM [facility] Blood UA Negative Negative 03/13/2025 9:50 AM [facility] pH UA 6.5 5.0 - 8.0 03/13/2025 9:50 AM [facility] Protein UA 1+(A) Negative 03/13/2025 9:50 AM [facility] Urobilinogen UA Normal Normal mg/dL 03/13/2025 9:50 AM [facility] Nitrite UA Negative Negative 03/13/2025 9:50 AM [facility] Leukocyte Esterase UA Negative Negative 03/13/2025 9:50 AM [facility] RBC UA 0-2 0 - 5 # /hpf 03/13/2025 9:50 AM [facility] WBC UA 0-5 0 - 5 # /hpf 03/13/2025 9:50 AM [facility] Bacteria UA None Seen None Seen 03/13/2025 9:50 AM [facility] Squamous Epithelial Cells None Seen 0 - 5 /hpf 03/13/2025 9:50 AM [facility] Mucus UA 1+ /LPF 03/13/2025 9:50 AM [facility] Reflex Status Culture not indicated 03/13/2025 9:50 AM [facility] Urine URINE SPECIMEN OBTAINED BY CLEAN CATCH PROCEDURE / Unknown Collection / Unknown 03/13/2025 9:10 AM CDT 03/13/2025 9:19 AM [facility] - 03/13/2025 9:50 AM [facility] Ofelia Mckee JIG WORKER-CHILDREN LIBRARIAN LAB - URINALYSIS ORDE RYAN Final Result [facility] [address] [place] [address], [facility] [phone] * BLOOD TYPE VERIFICATION (03/10/2025 10:02 PM CDT) ABO Rh O POS 03/10/2025 10:56 PM CDT [facility] BLOOD BANK LAB Blood Bank BLOOD SPECIMEN / Unknown Lab Venipuncture / Unknown 03/10/2025 10:02 PM CDT 03/10/2025 10:11 PM CDT Yousuf Chaudhari PA-C LAB - BLOOD BANK ORDERABLES Final Result [facility] BLOOD BANK LAB [address] [place] [address], [facility] [phone] * CT Chest Wo Contrast (03/10/2025 2:43 [...] indicated. > Dictated by Nick Jay MD, (resident in diagnostic radiology). > Dictated by Epidemiology Internship IJen MD have personally reviewed and interpreted this examination/study. > Interpreting Provider: Jen Thomson MD on 03/10/2025 5:00 PM Narrative 03/10/2025 5:00 PM CDT PROCEDURE: CT CHEST WO CONTRAST, DATE/TIME OF EXAM: 03/10/2025 2:44 PM, LOCATION [facility] INDICATION: I33.0: Mitral valve vegetation (HCC) [...] DATE/TIME OF EXAM: 03/10/2025 2:44 PM, LOCATION [facility] INDICATION: I33.0: Mitral valve vegetation (HCC) [...] indicated. > Dictated by Nick Jay MD, (resident in diagnostic radiology). > Dictated by Epidemiology Internship IJen MD have personally reviewed and interpreted [...] HTN, COPD, CKD, GERD presented to [facility] as OSH transfer for CTS evaluation for [...] Event Date/Time: 03/09/2025 6:17 PM Procedure: intubation (40360) Procedure Section: Sedation: under general anesthesia. Indications [...] Prakash De La Torre DO. Prakash De La Torre DO GENERAL ANESTHESIA [...] clinically indicated. > Dictated by Eunice Ramirez (resident in diagnostic radiology). > Dictated by Eunice Ramirez 03/09/2025 11:07 AM > Dictated by Epidemiology Internship IJen MD have personally reviewed and interpreted this examination/study. > Interpreting Provider: Jen Thomson MD on 03/09/2025 1:40 PM Narrative 03/09/2025 1:40 PM CDT PROCEDURE: US RETROPERITONEAL COMPLETE DATE/TIME OF EXAM: 03/09/2025 10:36 AM CLINICAL INFORMATION: None relevant/not provided if blank. Indication: N18.5: CKD (chronic kidney disease) stage 5, GFR less than 15 ml/min ([facility]) Additional History: COMPARISON: None. TECHNIQUE: Real-time ultrasound of the kidneys and bladder with DICOM image capture performed by ophthalmic technologist. FINDINGS: Right kidney: 10.9 x 5.6 [...] disease) stage 5, GFR less than15 ml/min ([facility]) Additional History: COMPARISON: None. TECHNIQUE: Real-time ultrasound of the kidneys and bladder with DICOMimage capture performed by ophthalmic technologist. FINDINGS: Right kidney: 10.9 x 5.6 [...] clinically indicated. > Dictated by Eunice Ramirez (resident in diagnostic radiology). > Dictated by Eunice Ramirez 03/09/2025 11:07 AM > Dictated by Epidemiology Internship IJen MD have personally reviewed and interpreted this examination/study. > Interpreting Provider: Jen Thomson MD on 03/09/2025 1:40 PM Adalberto Arroyo MD US ORDERABLES Final Result * VITAMIN D 25-HYDROXY (03/08/2025 5:06 AM CDT) Vitamin D, 25 Hydroxy 39.0 30.0 - 80.0 ng/mL 03/08/2025 6:22 AM CDT [facility] Comment: The recommendations for 25-Hydroxy Vitamin [...] LAB - CHEMISTRY ORDERABLES F inal Result [facility] [address] [place] [address], [facility] [phone] * (ABNORMAL) PTH INTACT W/O CALCIUM (03/08/2025 5:05 AM CDT) PTH Intact 80.3(H) 8.0 - 77.0 pg/mL 03/08/2025 6:10 AM CDT [facility] Blood BLOOD SPECIMEN / Unknown Lab Venipuncture / Unknown 03/08/2025 5:05 AM CDT 03/08/2025 5:34 AM CDT Adalberto Arroyo MD LAB - CHEMISTRY ORDERABLES F inal Result [address] [address], [place] [phone] * (ABNORMAL) IRON + TRANSFERRIN PANEL (03/08/2025 5:05 AM CDT) Iron 38(L) 50 - 175 ug/dL 03/08/2025 6:09 AM CDT [facility] Transferrin 201 174 - 382 mg/dL 03/08/2025 6:09 AM CDT [facility] Transferrin Saturation % 15(L) 16 - 50 % 03/08/2025 6:09 AM CDT [facility] TIBC Calculated 251 240 - 450 ug/dL 03/08/2025 6:09 AM CDT [facility] Blood BLOOD SPECIMEN / Unknown Lab Venipuncture / Unknown 03/08/2025 5:05 AM CDT 03/08/2025 5:24 AM CDT Adalberto Arroyo MD LAB - CHEMISTRY ORDERABLES F inal Result [address] [address], [place] [phone] * (ABNORMAL) FERRITIN (03/08/2025 5:05 AM CDT) Ferritin 447(H) 22 - 275 ng/mL 03/08/2025 6:13 AM CDT [facility] Blood BLOOD SPECIMEN / Unknown Lab Venipuncture / Unknown 03/08/2025 5:05 AM CDT 03/08/2025 5:24 AM CDT us Adalberto Arroyo MD LAB - CHEMISTRY ORDERABLES F inal Result [facility] [address] [place] [phone], [facility] [phone] * VAS Carotid Duplex Bilateral (03/07/2025 4:07 PM CDT) Anatomical Region Laterality Modality Neck Intravascular Ul trasound 03/07/2025 2:33 PM CDT Narrative Procedure Note Osvaldo Doyle MD - 03/08/2025 Kota Estrella JIG WORKER-CHILDREN LIBRARIAN VASCULAR LAB ORDERABLE S Edited Result - [...] 10:44 AM Patient Status: I/P Study Site: [facility] Primary Location: [facility] EStudy Info Exam Type: ECHO SINTIA COMPLETE Indications I34.81 - Calcification of mitral valve Contrast/Agitated Saline Contrast / Saline: Agitated Saline Amount: 10.00 ml Reaction to Contrast: no * A 3D, 2D, color Doppler and spectral Doppler transesophageal echocardiogram was performed with a Bubble Study. Staff Referring Physician: Pramod Torres Ordering Provider: Pramod Torres Attending Physician: Pramod Torres Fellow: Osvaldo Sepulveda Valve Mechanic: Iris Greco Performing Physician: Tahmina Bui Complications [...] anterior mitral valve leaflet tip (around the A2/[id number] tip). * There is moderate to severe [...] 10:44 AM Patient Status: I/P Study Site: [facility] Primary Location: [facility] EStudy Info Exam Type: ECHO SINTIA COMPLETE Indications I34.81 - Calcification of mitral valve Contrast/Agitated Saline Contrast / Saline: Agitated Saline Amount: 10.00 ml Reaction to Contrast: no * A 3D, 2D, color Doppler and spectral Doppler transesophagealechocardiogram was performed with a Bubble Study. Staff Referring Physician: Pramod Torres Ordering Provider: Pramod Torres Attending Physician: Pramod Torres Fellow: Osvaldo Sepulveda Valve Mechanic: Iris Greco Performing Physician: Tahmina Bui Complications [...] anterior mitral valve leaflet tip (around the A2/[id number] tip). There is moderate to severe mitral [...] resultswithin the time period is included. Pathologist [facility] Culture No growth day 5 LAVELLE 03/09/2025 1:30 PM CDT [facility] MICROBIOLOGY Blood PERIPHERAL BLOOD / Unknown Lab Venipuncture / Unknown 03/04/2025 11:09 AM CDT 03/04/2025 11:25 AM CDT Pramod Torres DO LAB - MICROBIOLOGY ORDERABLES Final Result [facility] MICROBIOLOGY [address] [place] [address], [facility] [phone] * HEPATITIS C AB SCREEN RFLX NAAT QUANT (03/04/2025 6:36 AM CDT) Pathologist [facility] [place] Hepatitis C Antibody Non-react francisco Non-reac tive 03/04/2025 8:16 AM CDT [facility] Comment:Hepatitis C Antibody screen indicates [...] ORDERABLES Fin al Result Performing Organization Address [facility]/ZIP Co de Phone Number [address] [address], [place] [phone] * HIV-1 HIV-2 ANTIBODY + HIV P24 AG PANEL (03/04/2025 6:36 AM CDT) Pathologist [facility] [place] HIV Antigen/Antibod y 1 & 2 Non-reacti ve Non-react francisco 03/04/2025 9:14 AM CDT [facility] Comment:No Laboratory eviden ce of HIV infection. Blood BLOOD SPECIMEN / Unknown Lab Venipuncture / Unknown 03/04/2025 6:36 AM CDT 03/04/2025 6:55 AM CDT Pramod Torres DO LAB - CHEMISTRY ORDERABLES Fin al Result Performing Organization Address [facility] Co de Phone Number [address] [address], [facility] [phone] * HEPATITIS B PANEL (03/04/2025 6:36 AM CDT) [facility] Hepatitis B Surface Antibody Quantitative <3.0 <8.0 mIU/mL 03/04/2025 8:41 AM CDT [facility] Comment: Hepatitis B Surface Antibody Numeric Result Interpretation: Nonreactive: <8.0 mIU/mL Indeterminate: 8.0 - 12.0 mIU/mL Reactive: >12.0 mIU/mL Hepatitis B Virus Surface Antibody Non-react francisco Non-react francisco 03/04/2025 8:41 AM CDT [facility] Comment: < 8 mIU/mL Hepatitis B surface Antibody (HBsAb). Nonreactive for HBsAb - individual is considered not immune to Hepatitis B Virus infection. Hepatitis B Virus Surface Antigen Non-react francisco Non-react francisco 03/04/2025 8:41 AM CDT [facility] Hepatitis B Core Virus Antibody IgM Non-react francisco Non-react francisco 03/04/2025 8:41 AM CDT [facility] Blood BLOOD SPECIMEN / Unknown Lab Venipuncture / Unknown 03/04/2025 6:36 AM CDT 03/04/2025 6:55 AM CDT us Pramod Raissa Torres DO LAB - CHEMISTRY ORDERABLES Fin al Result [facility] [address] [place] [address], [facility] [phone] * XR Panorex (03/03/2025 4:22 PM CDT) Anatomical Region Laterality Modality Head Radiographic Melba ging 03/04/2025 8:30 AM CDT Impressions 03/04/2025 9:17 AM CDT IMPRESSION: Lucencies within the right mandibular presumed location of absent of the molar and premolar teeth. Recommend dental consultation. The report was drafted by Ofe Aponte MD (resident care assistant) 03/04/2025 8:30 AM. > Dictated by Epidemiology Internship I, Jamie Barriga MD have personally reviewed and interpreted this examination/study. > Interpreting Provider: Jamie Barriga MD on 03/04/2025 9:17 AM Narrative 03/04/2025 9:17 AM CDT PROCEDURE: XR PANOREX, DATE/TIME OF EXAM: 03/03/2025 4:22 PM, LOCATION [facility] INDICATION: D73.3: Abscess of spleen I34.81: [...] PANOREX, DATE/TIME OF EXAM: 03/03/2025 4:22 PM, [facility] INDICATION: D73.3: Abscess of spleen I34.81: Calcification [...] report was drafted by Ofe Aponte MD (resident care assistant) 03/04/2025 8:30 AM. > Dictated by Epidemiology Internship I, Jamie Barriga MD have personally reviewed and interpreted this examination/study. > Interpreting Provider: Jamie Barriga MD on 03/04/2025 9:17 AM Pramod Torres DO DIAGNOSTIC IMAGING ORDERABLES Final Result * URINE DRUG SCREEN IMMUNOASSAY (03/03/2025 12:34 PM CDT) Pathologist [facility] [place] Amphetamines Screen Urine Negative Negative: < 1000 ng/mL 03/03/2025 1:24 PM [facility] Barbiturates Screen Urine Negative Negative: < 200 ng/mL 03/03/2025 1:24 PM [facility] Benzodiazepine Screen Urine Negative Negative: < 200 ng/mL 03/03/2025 1:24 PM [facility] Opiates Urine Negative Negative: < 300 ng/mL 03/03/2025 1:24 PM [facility] Cocaine Metabolites Urine Negative Negative: < 300 ng/mL 03/03/2025 1:24 PM [facility] Phencyclidine Screen Urine Negative Negative: < 25 ng/ml 03/03/2025 1:24 PM [facility] Cannabinoids Screen Urine Negative Negative: <50 ng/mL 03/03/2025 1:24 PM [facility] Methadone Screen Urine Negative Negative: < 300 ng/mL 03/03/2025 1:24 PM [facility] Fentanyl Screen Urine Negative Negative: <1.5 ng/mL 03/03/2025 1:24 PM [facility] Urine URINE / Unknown Collection / Unknown 03/03/2025 12:34 PM CDT 03/03/2025 12:39 PM CDT Narrative [facility] - 03/03/2025 1:24 PM CDT The Urine Toxicology Screening Panel does not screen for Propoxyphene, Meprobamate, Carisoprodol, Trazodone, rnfu-tbc-gvrbmox medications and/or volatiles (Acetone, Isopropanol, Methanol or Ethylene Glycol). Ethanol, Salicylate, Acetaminophen, Tricyclic Antidepressants and several therapeutic drugs may be individually assayed in serum or plasma specimen. Toxicology testing by the [facility] is an aid to medical diagnosis and treatment of patients. No documented chain of custody was maintained. Results are intended to be used for clinical purposes only. Pramod Torres DO LAB - URINE CHEMISTRY ORDERABL ES Final Result Performing Organization Address City/[facility]/ZIP Co de Phone Number [address] [address], [facility] [phone] * VANCOMYCIN LEVEL RANDOM (03/03/2025 5:00 AM CDT) Only the most recent of3 resultswithin the time period is included. Pathologist [facility] [place] Vancomycin Random 17.1 Therapeutic Ranges not established for random specimens ug/mL 03/03/2025 6:06 AM CDT [facility] Blood BLOOD SPECIMEN / Unknown Lab Venipuncture / Unknown 03/03/2025 5:00 AM CDT 03/03/2025 5:31 AM CDT Narrative [facility] - 03/03/2025 6:06 AM CDT See institution protocol. Pramod Torres DO LAB - CHEMISTRY ORDERABLES Fin al Result [address] [address], [place] [phone] * MRSA PCR (03/02/2025 8:47 AM CDT) MRSA DNA by PCR Not detected Not detected 03/02/2025 3:41 PM CDT [facility] MICROBIOLOGY Microbiology SPECIMEN FROM NASAL FOSSAE / Unknown Collection / Unknown 03/02/2025 8:47 AM CDT 03/02/2025 8:52 AM CDT Narrative [facility]CRO[facility]OLOG[facility] - 03/02/2025 3:41 PM CDT Methicillin-resistant Staphylococcus aureus (MRSA) DNA is not detected (presumed not colonized with MRSA). us Shira Harris MD LAB - MICROBIOLOGY ORDERABLES Fi nal Result [facility] MICROBIOLOG[facility] [address] [place] [address], [facility] [phone] * MONONUCLEOSIS SCREEN (03/02/2025 5:34 AM CDT) [facility] Mononucleosis Qualitative Negative Negative 03/02/2025 6:42 AM CDT [facility] Blood BLOOD SPECIMEN / Unknown Lab Venipuncture / Unknown 03/02/2025 5:34 AM CDT 03/02/2025 6:11 AM CDT us Shira Harris MD LAB - CHEMISTRY ORDERABLES Final Result Performing Organization Address City/[facility]/ZIP Co de Phone Number [facility] [address] [place] [address], [facility] [phone] * (ABNORMAL) BLOOD CULTURE ID PANEL (03/02/2025 5:33 AM CDT) [facility] Enterococcus faecalis Detected(A) Not detected 03/03/2025 10:33 AM CDT [facility]CRO[facility] Van A/B Vancomycin Resistance Not detected Not detected 03/03/2025 10:33 AM CDT [facility] Comment:Results indicate van comycin-susceptible Enterococcus faecalis. Nasir/B not detected. Blood PERIPHERAL BLOOD / Unknown Lab Venipuncture / Unknown 03/02/2025 5:33 AM CDT 03/02/2025 6:06 AM CDT Narrative [facility] - 03/03/2025 10:33 AM CDT Blood Culture ID Panel performed by [employer] multiplex PCR. The Test panel includes: Gram [...] and MREJ (methicillin-resistance - MRSA), NDM ([place] iksnhwm-sygm-pndvjdlen), OXA-48-like (oxacillinase beta-lactamase),Nasir/B (vancomycin-resistance), VIM ([place] [employer] beta-lactamase). Shira Harris MD LAB - MICROBIOLOGY ORDERABLES [facility] Result [facility]CRO[facility] [address] [place] [address], [facility] [phone] from Last 3 Months Insurance * Guarantor: Adrian Mercer Jr. Account Type Relation to Patient Date of Phone Billing Address Personal/Family Self 1960 [address] [place] [address] ANTHEM ANTHEM Advance Directives * Full Code (Latest Code Status on File) Date Activated Date Inactivated Comments 03/01/2025 10:01 PM 03/23/2025 4:41 PM Care Teams Finger Buffs Assembler Relationship Specialty Start Date End Date Carlos Ventura MD [address] [place] [address] PCP - General Internal Medicine 03/17/25
[2025-04-08 09:07] LABS: Hematocrit 33.6 % (37.0-46.0); Hemoglobin 10.5 g/dL (12.4-15.3); Mean Corpuscular HGB Conc 31.3 g/dL (32-36); Mean Corpuscular Hemoglobin 28.4 pg (27.0-31.0); Mean Corpuscular Volume 90.8 fL (78.0-102.0); Platelet Count Result 367 K/mm3 (150-420); Red Blood Count 3.70 M/mm3 (4.70-6.10); White Blood Count 10.8 K/mm3 (4.8-10.8)
[2025-04-08 09:09] LABS: Add Urine Microscopic? YES; Appearance Urine Clear (Clear); Glucose Urine UA Negative (Negative); Leukocyte Esterase Ur Negative (Negative); Nitrate Urine Negative (Negative); Specific Grav Ur 1.020 (1.010-1.020)
[2025-04-08 09:31] LABS: INR 2.2; Prothrombin Time 22.6 Seconds (9.50-12.1)
[2025-04-08 10:00] LABS: Albumin Level 4.4 g/dL (3.5-5.1); Alkaline Phosphatase 141 U/L (38-126); Anion Gap 14 mmol/L (4-12); Bilirubin,Total 0.5 mg/dL (0.2-1.3); Blood Urea Nitrogen 31 mg/dL (9-20); Calcium 10.2 mg/dL (8.4-10.2); Carbon Dioxide 22 mmol/L (22-30); Chloride 108 mmol/L (98-107); Estimated Glomerular Filt Rate 21; Glucose 119 mg/dL (65-110); Osmolality Calculated 305 mOsm/kg (285-295); Potassium 4.5 mmol/L (3.4-5.0); Sodium 144 mmol/L (137-145); Total Protein 9.3 g/dL (6.3-8.2)
[2025-04-08 10:02] LABS: Alanine Aminotransferase 14 U/L (6-50); Aspartate Amino Transferase 21 U/L (17-59)
[2025-04-08 10:06] LABS: Band Neutrophils Percent 0 % (0-6); Eosinophils Absolute Manual 2.16 K/mm3 (0.02-0.50); Eosinophils Percent Manual 20 % (1-6); Lymphocytes Absolute Manual 2.80 K/mm3 (1.1-4.5); Lymphocytes Percent Manual 26 % (18-44); Monocytes Absolute Manual 0.75 K/mm3 (0.1-0.90); Monocytes Percent Manual 7 % (3-9); Neutrophils Absolute Manual 5.07 K/mm3 (1.3-6.7); Neutrophils Percent Manual 47 % (46-73); Total Cells Counted 100
== END 2025-04-08 08:52 | disposition home or self-care (01) ==
LOC: CHSLAB 08:55
PROVIDERS: PCP Internal Medicine; Visit Provider Internal Medicine
DX: N39.0 Urinary tract infection, site not specified (principal); D72.828 Other elevated white blood cell count; N17.9 Acute kidney failure, unspecified; Z79.01 Long term (current) use of anticoagulants
CPT/HCPCS: 36415; 80053; 81001; 85025; 85610; 87086

== ENCOUNTER 2025-04-12 13:49 | Outpatient (NON) | payer BC, SELFPAY ==
--- OUTSIDE RECORDS SUMMARY | 2025-04-12 08:10 | XMS_ITS | Encounter Summary ---
Author Organization [facility] Address [address] [place] [address] Care Team Providers Care Credit Correspondence Clerk Name Role Phone Carlos Singh MD Primary Care Provider [phone] Rosy Valderrama MD Unavailable Rahul Hernandez MD Unavailable [phone] Reason for Referral * Imaging (Routine) - Closed Specialty Diagnoses / Procedures Referred By Afia hernandes Referred To Contact RADIOLOGY Diagnoses Splenic lesion Procedures US ABD LIMITED Carlos Singh MD [address] [place] [address] Phone: tel: fax: Referral ID Status Reason Start Date Expiration Date Visits Re quested Visits Authorized [id number] Closed 03/29/2025 03/29/2026 1 1 Reason for Visit * Imaging (Routine) - Closed Specialty Diagnoses / Procedures Referred By Afia hernandes Referred To Contact RADIOLOGY Diagnoses Splenic lesion Procedures US ABD LIMITED Carlos Singh MD [address] [place] [address] Phone: tel: fax: Referral ID Status Reason Start Date Expiration Date Visits Re quested Visits Authorized [id number] Closed 03/29/2025 03/29/2026 1 1 Encounter Details Date Type Department Care Team (Late st Contact Info) Description 04/12/2025 8:10 AM CDT Hospital Encounter [facility] [address] [place] [address] Carlos Singh MD [address] [place] [address] Arrived Social History Tobacco Use Types Packs/Day Years Used Date Smoking Tobacco: Never Smokeless Tobacco: Never Alcohol Use Standard Drinks/Week Comments Yes 23.3 (1 standard drink = 0.6 oz pure alcohol) vodka every evening [facility] Utilities Answer Date Recorded In the past 12 months has th e App Partner, [employer], oil, or water [employer] threatened to shut off services in your [...] any time in the past 12 m [facility], were you homeless or living in a snf (including now)? No 03/04/2024 Sex and Gender Information Value Date Recorded Sex Assigned at Male 04/12/2025 8:05 AM CDT Legal Sex Male 6:21 PM CDT Gender Identity Not on file Sexual Orientation Not on file documented as of this encounter Functional Status * Are you deaf or do you have serious difficulty hearing Answer Date of Assessment Author Status No 03/04/2024 2:00 AM FLORENCET Vivian Sheikh RN Active * Are you blind or do you have serious difficulty seeing, even when wearing glasses? Answer Date of Assessment Author Status No 03/04/2024 2:00 AM FLORENCET Vivian Sheikh RN Active * Do you have serious difficulty walking or climbing stairs? Answer Date of Assessment Author Status No 03/04/2024 2:00 AM FLORENCET Vivian Sheikh RN Active * Do you have difficulty dressing or bathing? Answer Date of Assessment Author Status No 03/04/2024 2:00 AM FLORENCET Vivian Sheikh RN Active * Because of a physical, mental, or emotional condition, do you have difficulty doing errands alone such as visiting a doctor's office or shopping? Answer Date of Assessment Author Status No 03/04/2024 2:00 AM FLORENCET Vivian Sheikh RN Active documented as of this encounter Mental Status * Because of a physical, mental, or emotional condition, do you have serious difficulty concentrating, remembering, or making decisions? Answer Entry Date Author Status No 03/04/2024 2:00 AM FLORENCET Vivian Sheikh RN Active documented in this encounter Plan of Treatment Upcoming Encounters Date Type Department Care Team (Late st Contact Info) Description 04/14/2025 3:15 PM CDT Office Visit [facility] [address] [place] [address] Rosy Valderrama MD [address] [place] [address] documented as of this encounter Procedures Procedure Name Priority Date/Time Associated Diagnosis Comments US ABD LIMITED Routine 04/12/2025 8:50 AM CDT Splenic lesion documented in this encounter Results * US ABD LIMITED (04/12/2025 8:50 AM CDT) Anatomical Region Laterality Modality Abdomen Ultrasound 04/12/2025 9:10 AM CDT Impressions 04/12/2025 9:48 AM CDT IMPRESSION: 1. There is a complex 7.3 cm cystic splenic lesion. Per independent chart review, patient appears to have been hospitalized with enterococcal bacteremia, endocarditis, and abscess of the spleen one month prior at outside facility. 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 There is no discrete peripheral hypervascularity on today's examination to suggest active infection, however low-grade residual infection could not BE absolutely excluded. Could still consider short-term interval follow-up to assess for interval changes if it is deemed to be clinically warranted. 2. Normal sonographic appearance of the left kidney. Dictated By: Nanci Levin MD on 04/12/2025 9:10 AM The attending radiologist has reviewed the image(s) and agrees with the content of this report. Referred By: CARLOS SINGH Interpreted By: Nanci Levin MD, 04/12/2025 9:10 AM Narrative 04/12/2025 9:48 AM CDT [place] [address] [address] [place] [address] [place] [address] EXAMINATION: US ABD LIMITED DATE: 04/12/2025 8:16 AM HISTORY: 65 years Male. splenic lesion. Per independent chart review, on 03/10/20[address] patient [address] chest CT performed at [facility] which showed an 8.3 cm hypoattenuating area in the spleen only partially visualized. Patient was discharged on 03/23/2025 with documented report of bacterial endocarditis/enterococcal bacteremia and splenic abscess on the discharge summary. COMPARISON: 03/04/2024 CT. TECHNIQUE: An ultrasound examination of the pancreas, spleen, left kidney was performed to assess grayscale appearance, color Doppler flow characteristics, and spectral waveform analysis. FINDINGS: Pancreas: Limited visualized portions of the proximal pancreas grossly unremarkable. Most of the pancreas is not well seen due to overlying bowel gas. Spleen: There is an approximately 7.3 x 4.3 x 6.9 cm complex lesion within the spleen with some internal echogenicity. There is posterior acoustic enhancement indicating some degree of cystic component. There are no solid components or internal components with flow on color Doppler imaging. Left kidney: Normal in size measuring 9.8 cm. No left hydronephrosis, urolithiasis, or discrete left renal mass. Procedure Note Valeriano Stevens MD - 04/12/[address] [place] [address] [place] [address] EXAMINATION: US ABD LIMITED DATE: 04/12/2025 8:16 AM HISTORY: 65 years Male. splenic lesion. Per independent chart review, on03/10/2025 patient had noncontrast chest CT performed at [facility] whichshowed an 8.3 cm hypoattenuating area in the spleen only partiallyvisualized. Patient was discharged on 03/23/2025 with documented report ofbacterial endocarditis/enterococcal bacteremia and splenic abscess on thedischarge summary. COMPARISON: 03/04/2024 CT. TECHNIQUE: An ultrasound examination of the pancreas, spleen, left kidneywas performed to assess grayscale appearance, color Doppler flowcharacteristics, and spectral waveform analysis. FINDINGS: Pancreas: Limited visualized portions of the proximal pancreas grosslyunremarkable. Most of the pancreas is not well seen due to overlying bowelgas. Spleen: There is an approximately 7.3 x 4.3 x 6.9 cm complex lesion withinthe spleen with some internal echogenicity. There is posterior acousticenhancement indicating some degree of cystic component. There are no solidcomponents or internal components with flow on color Doppler imaging. Left kidney: Normal in size measuring 9.8 cm. No left hydronephrosis,urolithiasis, or discrete left renal mass. IMPRESSION: 1. There is a complex 7.3 cm cystic splenic lesion. Per independent chartreview, patient appears to have been hospitalized with enterococcalbacteremia, [facility]ocarditis, [facility]. Although imaging from the hospitalization not availablefor direct comparison, the cystic splenic lesion seen on today'sultrasound (which was not seen on 03/04/2024 CT abdomen at our institution)most likely represents a postinfectious splenic cyst/pseudocyst. There isno discrete peripheral hypervascularity on today's examination to suggestactive infection, however low-grade residual infection could not BEabsolutely excluded. Could still consider short-term interval follow-upto assess for interval changes if it is deemed to be clinicallywarranted. 2. Normal sonographic appearance of the left kidney. Dictated By: Nanci Levin MD on 04/12/2025 9:10 AM The attending radiologist has reviewed the image(s) and agrees with thecontent of this report. Referred By: CARLOS SINGH Interpreted By: Nanci Levin MD, 04/12/2025 9:10 AM Carlos Singh MD ULTRASOUND Final Result documented in this encounter Visit Diagnoses Diagnosis Splenic lesion Disease of spleen, unspecified documented in this encounter Care Teams Credit Correspondence Clerk Relationship Specialty Start Date End Date Carlos Singh MD [address] [place] [address] PCP - General INTERNAL MEDICINE 03/03/24 Rosy Valderrama MD [address] [place] [address] [employer] Act English Tutor CARDIOVASCULAR DISEASE 03/24/25 Rahul Hernandez MD [address] [place] [address] CARDIOTHORACIC SURGERY 03/24/25 documented as of this encounter
--- OUTSIDE RECORDS SUMMARY | 2025-04-12 13:56 | XMS_ITS | Clinical Summary ---
Author Organization [facility] Address [address] [place] [address] Care Team Providers Care Hydraulic Repairer Name Role Phone Eric Singh MD Primary Care Provider [phone] Rosy Valderrama MD Unavailable Rahul Hernandez MD Unavailable [phone] Allergies No known active allergies Medications Fluticasone-Um [...] Encounters Date Type Department Care Team Description 04/12/2025 8:10 AM CDT Hospital Encounter [facility] [address] [place] [address] Eric Singh MD Arrived 04/12/2025 Orders Only [facility] [address] [place] [address] Rosy Valderrama MD 04/12/2025 Travel 03/24/2025 Abstract [facility] [address] [place] [address] Abstract, Doc Pccl 03/24/2025 Telephone [facility] ie [address] [place] [address] Rosy Valderrama MD Referral 02/20/2025 Scan [facility] ie [address] [place] [address] Scanned, Doc Pccl from Last 3 Months Social History Tobacco Use Types Packs/Day Years Used Date Smoking Tobacco: Never Smokeless Tobacco: Never Tobacco Cessation:Counseling Given: Not Answered Alcohol Use Standard Drinks/Week Comments Yes 23.3 (1 standard drink = 0.6 oz pure alcohol) vodka every evening [facility] Utilities Answer Date Recorded In the past 12 months has e [employer], gas, oil, or water [employer] threatened to shut off services in your [...] time in the past 12 m [facility], were you homeless or living [...] Description 04/14/2025 3:15 PM CDT Office Visit [facility] [address] [place] [address] Rosy Valderrama MD [address] [place] [address] Health Maintenance Due Date Last Done Comments Colorectal Cancer Screening Colonoscopy (10 Years) 1960 DTaP, Tdap and Td Vaccines ( 1 - Tdap) 1979 Pneumococcal Vaccine: 50+ Years (1 of 1 - PCV) 2010 Zoster Vaccines (1 of 2) 2010 COVID-19 Vaccine (1 - 2023-2 5 season) 2025 RSV Immunization [...] this topic Medical Devices Implanted Type Area Dental Instructor Device Identifier Shelf Expiration Date Model / Serial / Lot Stent Ureteral Contour Vl 4.8fr X 22-30cm - [id number] Implanted:Qty : 1 on 03/05/2024 by Stanley Gonzalez MD at [facility] Stent Right: Ureter [employer] [id number] 12/07/2026 [id number] 50 / / [id number] Stent Ureteral Contour Vl 4.8fr X 22-30cm - [id number] Implanted:Qty : 1 on 03/05/2024 by Stanley Gonzalez MD at [facility] Stent Right: Ureter [employer] [id number] 12/07/2026 [id number] 50 / / [id number] Procedures Procedure Name Priority Date/Time Associated Diagnosis Comments US ABD LIMITED Routine 04/12/2025 8:50 AM CDT Splenic lesion HEPATITIS C ANTIBODY Routine 03/04/2024 6:42 AM CDT from Last 3 Months or Most Recently Relevant to Health Maintenance Results * US ABD LIMITED (04/12/2025 8:50 [...] the content of this report. Referred By: ERIC SINGH Interpreted By: Nanci Levin MD, 04/12/2025 9:10 AM Narrative 04/12/2025 9:48 AM CDT [place] [address] [address] [address] [place] [address] [place] [address] [address] EXAMINATION: US ABD LIMITED DATE: 04/12/2025 8:16 AM HISTORY: 65 years Male. splenic lesion. Per independent chart review, on 03/10/20[address] patient [address] chest CT performed at [facility] which showed an 8.3 cm hypoattenuating [...] Procedure Note Valeriano Stevens MD - 04/12/2025 [place] [address] [address] [place] [address] [place] [address] [address] EXAMINATION: US ABD LIMITED DATE: 04/12/2025 8:16 AM HISTORY: 65 years Male. splenic lesion. Per independent chart review, on03/10/2025 patient had noncontrast chest CT performed at [facility] whichshowed an 8.3 cm hypoattenuating area [...] [facility] Although imaging from the hospitalization not [...] with thecontent of this report. Referred By: ERIC SINGH Interpreted By: Nanci Levin MD, 04/12/2025 9:10 AM us Eric Singh MD ULTRASOUND Final Result * HEPATITIS C ANTIBODY W/REFLEX (03/04/2024 6:42 AM CDT) HEPATITIS C AB NON-REACTI VE NON-REACTI VE 03/04/2024 8:53 AM CDT [facility] 03/04/2024 6:42 AM CDT Moses Leslie MD LABORATORY Final Result [facility] [address] [place] [address], from Last 3 Months or Most Recently Relevant to Health Maintenance Insurance [facility] Advance Directives * Full Code (Latest Code Status on File) Date Activated Date Inactivated Comments 03/03/2024 9:23 PM 2024 2:50 PM Care Teams Hydraulic Repairer Relationship Specialty Start Date End Date Eric Singh MD [address] [place] [address] PCP - General INTERNAL MEDICINE 03/03/24 Rosy Valderrama MD [address] [place] [address] [place] Senior Product Engineer CARDIOVASCULAR DISEASE 03/24/25 Rahul Hernandez MD [address] [facility] [address] [place] [address] CARDIOTHORACIC SURGERY 03/24/25
--- OUTSIDE RECORDS SUMMARY | 2025-04-12 13:56 | XMS_ITS | Encounter Summary ---
Author Organization [facility] Address [address] [place] [address] Care Team Providers Care Behaviorist Name Role Phone Carlos Ventura MD Primary Care Provider [phone] Rosy Valderrama MD Unavailable Rahul Hernandez MD Unavailable [phone] Encounter Details Date Type Department Care Team (Latest Contact Info) Description 04/12/2025 Travel Social History Tobacco Use Types Packs/Day Years Used Date Smoking Tobacco: Never Smokeless Tobacco: Never Alcohol Use Standard Drinks/Week Comments Yes 23.3 (1 standard drink = 0.6 oz pure alcohol) vodka every evening [facility] Utilities Answer Date Recorded In the past 12 months has [facility] electric, gas, oil, or water company threatened to shut off services in your [...] any time in the past 12 m [facility], were you homeless or living in a prison (including now)? No 03/04/2024 Sex and Gender [...] Assessment Author Status No 03/04/2024 2:00 AM Vivian Yoo RN Active * Do you have difficulty dressing or bathing? Answer Date of Assessment Author Status No 03/04/2024 2:00 AM Vivian Yoo RN Active * Because of a physical, mental, or emotional condition, do you have difficulty doing errands alone such as visiting a doctor's office or shopping? Answer Date of Assessment Author Status No 03/04/2024 2:00 AM CDT Vivian Sheikh RN Active documented as of this encounter Mental Status * Because of a physical, mental, or emotional condition, do you have serious difficulty concentrating, remembering, or making decisions? Answer Entry Date Author Status No 03/04/2024 2:00 AM CDT Vivian Sheikh RN Active documented in this encounter Plan of Treatment Upcoming Encounters Date Type Department Care Team (Late st Contact Info) Description 04/14/2025 3:15 PM CDT Office Visit [facility] [address] [place] [address] Rosy Valderrama MD [address] [place] [address] documented as of this encounter Visit Diagnoses Not on filedocumented in this encounter Care Teams Behaviorist Relationship Specialty Start Date End Date Carlos Ventura MD [address] [place] [id number] PCP - General INTERNAL MEDICINE 03/03/24 Rosy Valderrama MD [address] [place] [address] Lincoln Buttoner CARDIOVASCULAR DISEASE 03/24/25 Rahul Hernandez MD [address] [facility] [address] [place] [address] CARDIOTHORACIC SURGERY 03/24/25 documented as of this encounter
--- OUTSIDE RECORDS SUMMARY | 2025-04-12 13:56 | XMS_ITS | Clinical Summary ---
Author Organization [address] [facility] Address [address] [place] [address] Care Team Providers Care Regional Business Development Manager Name Role Phone Carlos Ventura MD Primary Care Provider [phone] Source Comments [facility],non-owned Affiliates and Associated Physician Practices is amultiple site organization consisting of ambulatory clinics and hospital sitesin [place], [place], [place] and [place]. This disclosure is being madepursuant to the Care Everywhere program and may not contain all information available regarding this patient. Last updated 18.MarginLeft Allergies No known active allergies Medications * [...] w/ diff, CMP, please fax results to [facility] Infectious disease clinic, fax [phone], Attn Yesica Cabello PA-C 025 2024 Active ampicillin 2 g in NaCl IV 0.9 % 100 mL - IV ampicillin 2g every 8 hours (renally dosed), consider continuous infusion outpatient to help with easier administration. - Duration of therapy 6 weeks from date of MVR, 03/15/2025 - EOT 04/26/2025. - Weekly labs: CBC w/ diff, CMP, please fax results to [facility] Infectious disease clinic, fax [phone], Attn Yesica Cabello PA-C 025 2024 Active [...] results. Starting 04/05/25, the Anticoagulation Clinic at [facility] will be dosing your warfarin 60 [...] valve with severe mitral regurgitation. Per [facility] recommends multi team consult for approved [...] Description 04/04/2025 10:30 AM CDT Office Visit [facility] - Cardiothoracic Surgery [address] [place] [address], [place] [id number] Ofelia Mckee, COOK HELPER PASTRY-Rahul Avelar MD S/P MVR (mitral valve replacement) (Primary Dx) 04/04/2025 9:42 AM CDT - 04/04/2025 11:59 PM CDT Hospital Encounter [facility] [address] [place] [address] Ofelia Mckee, COOK HELPER PASTRY-WEB PROGRAMMER Discharge Disposition: Home or Self Care 04/04/2025 Travel 03/27/2025 Orders Only [facility] - Cardiothoracic Surgery [address] [facility], [place] [address] Alma Rosa Rodriguez RN 03/24/2025 Telephone [facility] - Infectious Disease [address] [place] [address], [facility] [place] [address] Yesica Cabello PA-C Appointment 03/15/2025 11:24 AM CDT Anesthesia Event [facility] ZUNILDA OP [address] [place] [address] Alexa Page MD Polhemus, Kyle, MD 03/15/2025 8:55 AM CDT - 03/15/2025 2:40 PM CDT Surgery [facility] [place] [address] [place] [address] Rahul Hernandez MD Mitral valve replacement 03/15/2025 6:25 AM CDT Ancillary Procedure [facility] INTRA OP [address] [place] [address] Cornelia Serra MD Heis, Farah, MD 03/10/2025 8:54 AM CDT - 03/10/2025 10:10 AM CDT Surgery [facility] - Cardiac Forensic Computer Examiner [address] [place] [address] Selene Duran MD Left Heart Cath 03/09/2025 6:03 PM CDT Anesthesia Event [facility] ZUN[facility] OP [address] [place] [address] Prakash De La Torre, Carlitos Flores, DIANDRA 03/09/2025 5:45 PM CDT - 03/09/2025 7:28 PM CDT Surgery [facility] ZUN[facility]DA OP [address] [place] [address] Sedic, Vedrcarlos, DMD EXTRACTION DENTAL (MULTIPLE) 2025 9:22 AM CDT - 2025 11:59 PM CDT Hospital Encounter [facility] - Cardiac Forensic Computer Examiner [address] [place] [address] Pramod Torres, Shira Cantu MD Discharge Disposition: Home or Self Care 03/01/2025 9:44 PM CDT - 03/23/2025 3:36 PM CDT Hospital Encounter [facility] 8N ACUTE [address] [place] [address] Shira Harris MD Mayer, Joshua C, Adalberto Michele MD Eshetu, Nebiyu A, MD Lawrance, Rahul Santillan MD Cardiothoracic Surgery Discharge Disposition: Home Health Care [facility] 03/01/2025 Travel 03/01/2025 Telephone [facility] PHYS INTERNAL MED [address] [place] [address] Shira Harris MD General (OSH transfer) 03/01/2025 Telephone [facility] INTERNAL MED [facility] [place] [address] Freddy Velazquez MD Hospital Admission from Last [...] and heating? Not hard at all 03/01/2025 [facility] Occupat ional Health - Occupational Stress [...] any time in the past 12 m [facility], were you homeless or living in a correction (including now)? No 03/01/2025 Sex and Gender Information Value Date Recorded Sex Assigned at Not on file Legal Sex Male 10:10 AM NEWS REPORTER Gender Identity Not on file Sexual Orientation [...] [facility] - Cardiothoracic Surgery [address] [place] [address] Ofelia Mckee, COOK HELPER PASTRY-WEB PROGRAMMER [address] [place] [address] Rahul Hernandez MD [address] [place] [address] [address] [place] [address] 04/18/2025 1:00 PM CDT Appointment [facility] [address] [place] [address] Rahul Hernandez MD [address] [place] [address] [address] [place] [address] 04/20/2025 8:30 AM CDT Office Visit [facility] - Infectious Disease [address] [place] [address] Yesica Cabello PA-C [address] [place] [address] 05/01/2025 9:00 AM CDT Appointment [facility] IVR [address] [place] [address] Garcia Gil MD [address] [place] [address] Health Maintenance Due Date Last Done Comments [...] this topic Medical Devices Implanted Type Area Executive Chef Device Identifier Shelf Expiration Date Model / Serial / Lot Ndl Sut 3 Blnt Cut Cbl Strl Spnl Ss Implanted:Qty: 1 on 03/15/2025 by Rahul Hernandez MD at [facility] N/A: Sternum [employer] 08/17/2029 [id number] / / [id number] Plate 6 Hl O Cncv Bone Lf Nonster Implanted:Qty: 1 on 03/15/2025 by Rahul Hernandez MD at [facility] N/A: Sternum [employer] 115.604.06 / / Screw 14mm Lck Nonster Bone Lf Implanted:Qty: 6 on 03/15/2025 by Rahul Hernandez MD at [facility] N/A: Sternum [employer] 100.035.14 / / Screw 16mm Lck Nonster Bone Lf Implanted:Qty: 6 on 03/15/2025 by Rahul Hernandez MD at [facility] N/A: Sternum [employer] 100.035.16 / / Screw 18mm Lck Nonster Bone Lf Implanted:Qty: 6 on 03/15/2025 by Rahul Hernandez MD at [facility] N/A: Sternum [employer] 100.035.18 / / Valve Mtrl 31mm Resilia - [id number] Implanted:Qty: 1 on 03/15/2025 by Rahul Hernandez MD at [facility] N/A: Mitral Valve [employer] 10/12/2029 [id number] / [id number] / Ndl Sut 3 Blnt Cut Cbl Strl Spnl Ss Implanted:Qty: 1 on 03/15/2025 by Rahul Hernandez MD at [facility] N/A: Sternum [employer] 402-523 / / Plate Bone H 6 Hl Nonster Lf Implanted:Qty: 2 on 03/15/2025 by Rahul Hernandez MD at [facility] N/A: Sternum [employer] 115.102.06 / / Explanted Type Area Executive Chef Device Identifier Shelf Expiration Date Model / Serial / Lot Plate Bone H 6 Hl Nonster Lf Explanted:Qty: 2 on 03/15/2025 by Rahul Hernandez MD at [facility] N/A: Mitral Valve [employer] 115.102.06 / / Description:no cost implant per rep; doc pay once program Plate 6 Hl O Cncv Bone Lf Nonster Explanted:Qty: 1 on 03/15/2025 by Rahul Hernandez MD at [facility] N/A: Mitral Valve [employer] 115.604.06 / / Description:no cost implant per rep; doc pay once program Screw 14mm Lck Nonster Bone Lf Explanted:Qty: 6 on 03/15/2025 by Rahul Hernandez MD at [facility] N/A: Mitral Valve [employer] 100.035.14 / / Description:no cost implant per rep; doc pay once program Screw 16mm Lck Nonster Bone Lf Explanted:Qty: 6 on 03/15/2025 by Rahul Hernandez MD at [facility] N/A: Mitral Valve [employer] 100.035.16 / / Description:no cost implant per rep; doc pay once program Screw 18mm Lck Nonster Bone Lf Explanted:Qty: 6 on 03/15/2025 by Rahul Hernandez MD at [facility] N/A: Mitral Valve [employer] 100.035.18 [...] stage 5, GFR less than 15 ml/min ([facility]) XR CHEST 1VW PORTABLE Routine 03/22/2025 4:27 [...] 2:42 PM CDT ACT PLUS - POCT ([facility]) Routine 03/15/2025 2:39 PM CDT FIBRINOGEN ACTIVITY STAT 03/15/2025 2 :34 PM CDT Mitral valve vegetation (HCC) PLATELET COUNT AUTO CITRATED BLOOD STAT 03/15/2025 2:33 PM CDT Mitral valve vegetation (HCC) ACT PLUS - POCT (SS) Routine 03/15/2025 2:07 PM CDT BLOOD GAS+COOX+LYTES+METAB ARTERIAL POCT Routine 03/15/2025 2:06 PM CDT PATHOLOGY TISSUE Routine 03/15/2025 1:53 PM CDT Mitral valve insufficiency, unspecified etiology BLOOD GAS+COOX+LYTES+METAB ARTERIAL POCT Routine 03/15/2025 1:30 PM CDT ACT PLUS - POCT (SS) Routine 03/15/2025 1:29 PM CDT BLOOD GAS+COOX+LYTES+METAB ARTERIAL POCT Routine 03/15/2025 1:15 PM CDT ACT PLUS - POCT ([facility]) Routine 03/15/2025 1:14 PM CDT ACT PLUS - POCT ([facility]) Routine 03/15/2025 1:04 PM CDT ACT PLUS - POCT ([facility]) Routine 03/15/2025 12:53 PM CDT BLOOD GAS+COOX+LYTES+METAB ARTERIAL POCT Routine 03/15/2025 12:52 PM CDT ACT PLUS - POCT ([facility]) Routine 03/15/2025 12:44 PM CDT BLOOD GAS+COOX+LYTES+METAB ARTERIAL POCT Routine 03/15/2025 12:33 PM CDT PULMONARY ARTERY CATHETER NOTE Routine 03/15/2025 12:19 PM CDT PULMONARY ARTERY CATHETER NOTE Routine 03/15/2025 12:19 PM CDT CENTRAL LINE NOTE Routine 03/15/2025 12:19 PM CDT ENDOTRACHEAL TUBE NOTE Routine 03/15/2025 12:18 PM CDT ARTERIAL LINE NOTE Routine 03/15/2025 12:18 PM CDT VA REPLACEMENT OF MITRAL VALVE 03/15/2025 11:04 AM [...] TUBE NOTE Routine 03/09/2025 6:28 PM CDT [facility] DENTAL SURGERY PROCEDURE 03/09/2025 5:37 PM CDT Infection Case Notes DOCTOR SEDIC WILL BE TO [facility] AND AVAILABLE TO OPERATE AT 1600. [...] MD on 04/05/2025 12:33 AM Ofelia Mckee COOK HELPER PASTRY-WEB PROGRAMMER DIAGNOSTIC IMAGING OR DERABLES Final Result * [...] Ionized 1.16 mmol/L 03/23/2025 1:17 AM CDT [facility] pH 7.41 7.35 - 7.45 pH 03/23/2025 1:17 AM CDT [facility] Ionized Calcium pH Adjusted 1.16(L) 1.19 - 1.34 mmol/L 03/23/2025 1:17 AM CDT [facility] Blood BLOOD SPECIMEN / Unknown Lab Venipuncture / Unknown 03/23/2025 12:54 AM CDT 03/23/2025 1:12 AM CDT Mariya Botello PA-C LAB - CHEMISTRY ORDERABLES F inal Result [facility] [address] [place] [address], [facility] [phone] * (ABNORMAL) PT-INR (03/23/2025 12:54 AM CDT) Only the most recent of8 resultswithin the time period is included. PT 15.9(H) 12.1 - 14.8 Seconds 03/23/2025 1:37 AM CDT [facility] INR 1.3 See Comment 03/23/2025 1:37 AM CDT [facility] Comment:The suggested therap eutic [...] LAB - COAGULATION O RDERABLES Final Result [facility] [address] [place] [address], [facility] [phone] * (ABNORMAL) COMPREHENSIVE METABOLIC PANEL (03/23/2025 12:54 AM CDT) Only the most recent of22 resultswithin the time period is included. BUN 61(H) 7 - 26 mg/dL 03/23/2025 1:42 AM [facility] Creatinine 2.95(H) 0.71 - 1.16 mg/dL 03/23/2025 1:42 AM [facility] Sodium 135(L) 136 - 145 mmol/L 03/23/2025 1:42 AM [facility] Potassium 4.6(H) 3.5 - 4.5 mmol/L 03/23/2025 1:42 AM [facility] Chloride 102 98 - 107 mmol/L 03/23/2025 1:42 AM [facility] CO2 24 22 - 29 mmol/L 03/23/2025 1:42 AM [facility] Glucose 101(H) 70 - 99 mg/dL 03/23/2025 1:42 AM [facility] Calcium 9.0 8.4 - 10.2 mg/dL 03/23/2025 1:42 AM [facility] Protein Total 7.1 6.0 - 8.3 g/dL 03/23/2025 1:42 AM [facility] Albumin 3.2(L) 3.4 - 5.0 g/dL 03/23/2025 1:42 AM [facility] Bilirubin Total 0.2 0.2 - 1.2 mg/dL 03/23/2025 1:42 AM [facility] Alkaline Phosphatase 168(H) 40 - 150 U/L 03/23/2025 1:42 AM [facility] ALT 67(H) 5 - 55 U/L 03/23/2025 1:42 AM [facility] AST 43(H) 5 - 34 U/L 03/23/2025 1:42 AM [facility] Anion Gap 9 6 - 16 03/23/2025 1:42 AM [facility] BUN/Creatinine Ratio 21 7 - 23 03/23/2025 1:42 AM [facility] Osmolality Calculated 297(H) 275 - 295 mOsm/kg 03/23/2025 1:42 AM [facility] Albumin/Globulin Ratio 0.8(L) 1.1 - 2.3 03/23/2025 1:42 AM [facility] eGFR by CKD-EPI 23(L) >=90 mL/min/1.7 3 m2 03/23/2025 1:42 AM [facility] Comment:Estimated Glomerular Filtration Rate (eGFR) calculated using the CKD-EPI Creatinine Equation (2020), per the National Kidney Foundation and [place] Society of Nephrology recommendations. Blood BLOOD SPECIMEN / Unknown Lab Venipuncture / Unknown 03/23/2025 12:54 AM CDT 03/23/2025 1:16 AM CDT Rahul Hernandez MD LAB - CHEMISTRY ORD ERABLES Final Result [address] [address], [facility] [phone] * PHOSPHORUS BLOOD (03/23/2025 12:54 AM CDT) Only the most recent of23 resultswithin the time period is included. Phosphorus 3.7 2.8 - 5.1 mg/dL 03/23/2025 1:42 AM [facility] Blood BLOOD SPECIMEN / Unknown Lab Venipuncture / Unknown 03/23/2025 12:54 AM CDT 03/23/2025 1:16 AM CDT Mariya Botello PA-C LAB - CHEMISTRY ORDERABLES F inal Result Performing Organization Address City/[facility]/ZIP Co de Phone Number [address] [address], [facility] [phone] * MAGNESIUM BLOOD (03/23/2025 12:54 AM CDT) Only the most recent of23 resultswithin the time period is included. Pathologist [facility] Magnesium 2.0 1.6 - 2.6 mg/dL 03/23/2025 1:42 AM [facility] Blood BLOOD SPECIMEN / Unknown Lab Venipuncture / Unknown 03/23/2025 12:54 AM CDT 03/23/2025 1:16 AM CDT Mariya Botello PA-C LAB - CHEMISTRY ORDERABLES F inal Result [address] [address], [facility] [phone] * (ABNORMAL) CBC W/O DIFFERENTIAL (03/23/2025 12:53 AM CDT) Only the most recent of13 resultswithin the time period is included. Pathologist [facility] WBC 12.0(H) 4.0 - 10.7 x10E9/L 03/23/2025 1:22 AM [facility] RBC Count 3.22(L) 4.30 - 5.80 x10E12/L 03/23/2025 1:22 AM [facility] Hemoglobin 9.1(L) 13.3 - 17.5 g/dL 03/23/2025 1:22 AM [facility] Hematocrit 29.0(L) 38.7 - 51.1 % 03/23/2025 1:22 AM [facility] MCV 90.1 80.0 - 98.0 fL 03/23/2025 1:22 AM [facility] MCH 28.3 26.7 - 33.6 pg 03/23/2025 1:22 AM [facility] MCHC 31.4(L) 31.7 - 36.3 g/dL 03/23/2025 1:22 AM [facility] RDW-CV 19.8(H) 11.3 - 14.8 % 03/23/2025 1:22 AM [facility] Platelet Count 334 150 - 420 x10E9/L 03/23/2025 1:22 AM CDT [facility] MPV 10.2 7.8 - 11.4 fL 03/23/2025 1:22 AM CDT [facility] Blood BLOOD SPECIMEN / Unknown Lab Venipuncture / Unknown 03/23/2025 12:53 AM CDT 03/23/2025 1:15 AM CDT Mariya Botello PA-C LAB - HEMATOLOGY ORDERABLES Final Result [facility] [address] [place] [address], [facility] [phone] * IR Central Line Insert Tunnel (03/22/2025 [...] stage 5, GFR less than 15 ml/min ([facility]) Additional History: Iron Pellet Tester: Garcia Gil MD COMPARISON: None. FLUOROSCOPY DOSE: [...] evaluation, please review the evaluation forms in [facility]. For details on monitored clinical parameters during the intra-service sedation time, please review the procedure nurse documentation in [facility]. I was present for the Entire procedure. Procedure Note Garcia Gil MD - 03/22/2025 PROCEDURE: IR CENTRAL LINE INSERT TUNNEL DATE/TIME OF EXAM: 03/22/2025 12:53 PM CLINICAL INFORMATION: None relevant/not provided if blank. Indication: R09.89: Endocarditis, suspected N18.5: CKD (chronic kidney disease) stage 5, GFR less than 15 ml/min([facility]) Additional History: Iron Pellet Tester: Garcia Gil MD COMPARISON: None. FLUOROSCOPY DOSE: [...] response to care. Intra-service sedation start time [id number] and end time was 1228 during which I was present. Total physician intra-service sedation time was 14 minutes. For details on pre-moderate sedation and post-moderate sedation patient evaluation, please reviewthe evaluation forms in [facility]. For details on monitored clinical parameters during the intra-service sedation time, please review the procedurenurse documentation in [facility]. I was present for the Entire [...] DATE/TIME OF EXAM: 03/22/2025 4:27 AM, LOCATION [facility] INDICATION: I34.0: Mitral valve insufficiency, unspecified [...] Report dictated by Jamie Rucker MD, (resident services manager). > Dictated by Real Estate Utilization Officer I, Jamie Barriga MD have personally reviewed and interpreted this examination/study. > Interpreting Provider: Jamie Barriga MD on 03/22/2025 7:08 PM Procedure Note Jamie Barriga MD - 03/22/2025 PROCEDURE: XR CHEST 1VW PORTABLE, DATE/TIME OF EXAM: 03/22/2025 4:27 AM, LOCATION [facility] INDICATION: I34.0: Mitral valve insufficiency, unspecified [...] Report dictated by Jamie Rucker MD, (resident services manager). > Dictated by Real Estate Utilization Officer I, Jamie Barriga MD have personally reviewed and interpreted this examination/study. > Interpreting Provider: Jamie Barriga MD on 03/22/2025 7:08 PM [place] [facility] COOK HELPER PASTRY-WEB PROGRAMMER DIAGNOSTIC IMAGI NG ORDERABLES Final Result * EKG 12-Lead (03/20/2025 12:00 PM CDT) Only the most recent of7 resultswithin the time period is included. Pathologist [facility] Ventricular Rate 125 BPM [facility] MUSE Atrial Rate 125 BPM [facility] MUSE QRS Duration ms 90 ms [facility] MUSE Q-T Interval ms 336 ms [facility] MUSE QTC Calculation (Bezet) 484 ms [facility] MUSE Calculated P [place] 55 degrees [facility] MUSE Calculated R [place] 69 degrees [facility] MUSE Calculated T [place] 55 degrees [facility] MUSE Interpretation EKG SINUS TACHYCARDIA NONSPECIFIC ST ABNORMALITY ABNORMAL ECG WHEN COMPARED WITH ECG OF 20-MAR-2025 11:59, SINUS TACHYCARDIA HAS REPLACED JUNCTIONAL RHYTHM Confirmed by PRASAD LOUIS MD ([id number]) on 03/26/2025 10:12:19 PM [facility] MUSE 03/20/2025 12:0 0 PM CDT 03/26/2025 10:12 PM CDT Yousuf Chaudhari PA-C ECG ORDERABLES Edited Resu lt - Final [facility] MUSE * (ABNORMAL) BASIC METABOLIC PANEL (CALCIUM TOTAL) (03/19/2025 8:44 PM CDT) Only the most recent of3 resultswithin the time period is included. BUN 54(H) 7 - 26 mg/dL 03/19/2025 9:27 PM CDT [facility] Creatinine 2.92(H) 0.71 - 1.16 mg/dL 03/19/2025 9:27 PM [facility] Sodium 134(L) 136 - 145 mmol/L 03/19/2025 9:27 PM [facility] Potassium 3.7 3.5 - 4.5 mmol/L 03/19/2025 9:27 PM [facility] Chloride 101 98 - 107 mmol/L 03/19/2025 9:27 PM [facility] CO2 22 22 - 29 mmol/L 03/19/2025 9:27 PM [facility] Glucose 122(H) 70 - 99 mg/dL 03/19/2025 9:27 PM [facility] Calcium 8.7 8.4 - 10.2 mg/dL 03/19/2025 9:27 PM [facility] Anion Gap 11 6 - 16 03/19/2025 9:27 PM [facility] BUN/Creatinine Ratio 18 7 - 23 03/19/2025 9:27 PM [facility] Osmolality Calculated 294 275 - 295 mOsm/kg 03/19/2025 9:27 PM [facility] eGFR by CKD-EPI 23(L) >=90 mL/min/1.7 3 m2 03/19/2025 9:27 PM [facility] Comment:Estimated Glomerular Filtration Rate (eGFR) calculated using the CKD-EPI Creatinine Equation (2020), per the National Kidney Foundation and [place] Society of Nephrology recommendations. Blood BLOOD SPECIMEN / Unknown Venipuncture / Unknown 03/19/2025 8:44 PM CDT 03/19/2025 8:58 PM CDT us Nayan Flaquito Hernandez COOK HELPER PASTRY-WEB PROGRAMMER LAB - CHEMISTRY ORD ERABLES Final Result [facility] [address] [place] [address], [facility] [phone] * ECHO COMPLETE W CONTRAST (03/19/2025 10:47 AM CDT) Only the most recent of2 resultswithin the time period is included. IVSd 2D 0.99 cm [facility] I PACS LVIDd 4.303 cm [facility] CV [facility] I PACS LVIDs 2.878 cm [facility] I PACS LVOT diam 1.94 cm [facility] I PACS LVPWd 1.189 cm [facility] I PACS LV biplane EF 67.255 % [facility]JI PACS LV A2C EF 59.742 % [facility] I PACS LV A4C EF 72.856 % [facility] I PACS LV EDV A2C 100.563 ml [facility] CV FU JI PACS LV EDV A4C 142.773 ml [facility] CV [facility]U [facility]I PACS LV ESV A2C 40.485 ml [facility] CV [facility]I PACS LV ESV A4C 38.754 ml [facility] PACS LVOT pk grad 6.299 mmHg [facility] pk valeriano 125.487 cm/s [facility] CV F U PACS LVOT VTI 21.326 cm [facility] CV [facility] I PACS RV-valdez basal diam 3.541 cm [facility] RVIDd 3.315 cm [facility] I PACS RVOT diam Doppler 2.414 cm SS M [facility] RVOT pk valeriano 88.733 cm/s [facility] CV F U PACS RVOT VTI 15.158 cm [facility] CV [facility] I PACS LA size 4.112 cm [facility] CV [facility] I PACS LA vol BP 78.882 ml [facility] CV [facility] I PACS RA area 17.37 cm [facility] CV [facility] PACS AV area pk valeriano 2.416 cm [facility] area cont VTI 2.313 cm [facility] AV pk grad 9.427 mmHg [facility] CV FU JI PACS AV mn grad 5.644 mmHg [facility] CV FU JI PACS AV pk valeriano 153.514 cm/s [facility] CV [facility] I PACS AV VTI 27.253 cm [facility] CV [facility] I PACS MV A pk valeriano 97.364 cm/s [facility] CV F UJI PACS MV E pk valeriano 123.515 cm/s [facility] CV F UJI PACS MV E' lateral valeriano 4.132 cm/s SS [facility] MV mn grad 2.134 mmHg [facility] CV FU JI PACS MV VTI 25.234 cm [facility] CV FUJ I PACS PV pk valeriano 101.698 cm/s [...] 10:16 AM Patient Status: I/P Study Site: [facility] Primary Location: [facility] EStudy Info Technical Quality: Fair Exam [...] Provider: Rahul Hernandez Attending Physician: Rahul Hernandez Combat Systems Officer: Jose G Casper Left Ventricle The left [...] 10:16 AM Patient Status: I/P Study Site: [facility] Primary Location: [facility] EStud Info Technical Quality: Fair Exam [...] Provider: Rahul Hernandez Attending Physician: Rahul Hernandez Combat Systems Officer: Jose G Casper Left Ventricle The left [...] 70 - 99 mg/dL 03/19/2025 8:27 AM [facility] Specimen Type Arterial/C apillary 03/19/2025 8:27 AM [facility] Blood BLOOD SPECIMEN / Unknown 03/19/2025 8:22 AM CDT 03/19/2025 8:27 AM CDT Rahul Hernandez MD LAB - POINT OF CARE ORDERABLES Final Result [facility] [address] [place] [address], [facility] [phone] * (ABNORMAL) HEPATIC FUNCTION PANEL (03/19/2025 4:28 AM CDT) Protein Total 6.2 6.0 - 8.3 g/dL 025 7:34 AM [facility] Albumin 3.1(L) 3.4 - 5.0 g/dL 03/19/2025 7:34 AM [facility] Bilirubin Total 0.4 0.2 - 1.2 mg/dL 02/19 7:34 AM [facility] Bilirubin Conjugated 0.2 0.1 - 0.5 mg/dL 03/19/2025 7:34 AM [facility] Bilirubin Unconjugated 0.2 Unconjugated Bilirubin is a calculated value: Reference ranges have not been established. mg/dL 03/19/2025 7:34 AM [facility] Alkaline Phosphatase 198(H) 40 - 150 U/L 03/19/2025 7:34 AM [facility] ALT 166(H) 5 - 55 U/L 03/19/2025 7:34 AM [facility] AST 173(H) 5 - 34 U/L 03/19/2025 7:34 AM [facility] Albumin/Globulin Ratio 1.0(L) 1.1 - 2.3 03/19/2025 7:34 AM [facility] Blood BLOOD SPECIMEN / Unknown Venipuncture / Unknown 03/19/2025 4:28 AM CDT 03/19/2025 4:38 AM CDT Jennyfer Dallas DO LAB - CHEMISTRY ORDERABLES Final Result Performing Organization Address City/[facility]/ZIP Co de Phone Number [facility] [address] [place] [address], [facility] [phone] * TRANSFUSE RED BLOOD CELL LEUKOREDUCED UNIT(S) (03/16/2025 10:21 PM CDT) Rahul Hernandez MD NURSING - BLOOD PRO D TRANSFUSION Final Result * TYPE + SCREEN PANEL (03/16/2025 5:39 PM CDT) Only the most recent of3 resultswithin the time period is included. Antibody Screen NEG 6:34 PM CDT [facility] ABO Rh O POS 03/16/2025 6:34 PM CDT [facility] Blood Bank BLOOD SPECIMEN / Unknown Venipuncture / Unknown 03/16/2025 5:39 PM CDT 03/16/2025 5:51 PM CDT Rahul Hernandez MD LAB - BLOOD BANK OR DERABLES Final Result Performing Organization Address City/[facility]/ZIP Co de Phone Number [facility] [address] [place] [address], [facility] [phone] * TRANSFUSE RED BLOOD CELL LEUKOREDUCED UNIT(S) (03/16/2025 11:36 AM CDT) Nayan Hernandez COOK HELPER PASTRY-WEB PROGRAMMER NURSING - BLOOD PRO D TRANSFUSION Final Result * (ABNORMAL) SVO2 FOR RECALIBRATION (03/16/2025 3:11 AM CDT) Only the most recent of4 resultswithin the time period is included. SVO2 for Recalibration 48.1(L) 66.0 - 77.0 % 03/16/2025 3:20 AM CDT [facility] Blood BLOOD SPECIMEN / Unknown Venipuncture / Unknown 03/16/2025 3:11 AM CDT 03/16/2025 3:16 AM CDT Mariyayessi Botello PA-C LAB - CHEMISTRY ORDERABLES F inal Result Performing Organization Address City/[facility]/ZIP Co de Phone Number [address] [address], [facility] [phone] * HEMOGLOBIN A1C (03/16/2025 3:11 AM CDT) Hemoglobin A1c 5.3 <=5.6 % 03/16/2025 10:31 AM CDT [facility] Estimated Average Glucose 105 mg/dL 03/16/2025 10:31 AM CDT [facility] Comment: HbA1c Interpretation: Normal : < 5.7% Pre-diabetes: 5.7-6.4% Diabetes: Equal to or greater than 6.5% Test results diagnostic of diabetes should be repeated for confirmation. Treatment target values recommended by ADA and other clinical organizations should be used to evaluate metabolic control in patients. Reference: [place] [employer], Standards of Care in Diabetes [...] LAB - CHEMISTRY ORDERABLES F inal Result [address] [address], [place] [phone] * (ABNORMAL) LACTIC ACID BLOOD (03/16/2025 3:11 AM CDT) Only the most recent of3 resultswithin the time period is included. Lactic Acid-Stat 3.7(HH) <=2.0 mmol/L 03/16/2025 4:02 AM CDT [facility] Blood BLOOD SPECIMEN / Unknown Venipuncture / Unknown 03/16/2025 3:11 AM CDT 03/16/2025 3:21 AM CDT us Nayanbita Hernandez COOK HELPER PASTRY-WEB PROGRAMMER LAB - CHEMISTRY ORD ERABLES Final Result [facility] [address] [place] [address], [facility] [phone] * (ABNORMAL) BLOOD GASES ART + COOX PANEL (03/16/2025 3:11 AM CDT) Only the most recent of4 resultswithin the time period is included. pH Arterial 7.38 7.35 - 7.45 pH 03/16/2025 3:21 AM [facility] pO2 Arterial 104(H) 80 - 100 mmHg 03/16/2025 3:21 AM [facility] pCO2 Arterial 31(L) 35 - 45 mmHg 3:21 AM [facility] HCO3 Arterial 18.3(L) 20.0 - 30.0 mmol/L 03/16/2025 3:21 AM [facility] BE Arterial -6.1(L) -2.0 - 2.0 mmol/L 03/16/2025 3:21 AM [facility] Oxyhemoglobin Arterial 96.3 % 03/16/2025 3:21 AM [facility] Dexoyhemoglobin (HHB) % <1.0 % 03/16/2025 3:21 AM [facility] Methemoglobin 1.3 0.0 - 2.0 % 03/16/2025 3:21 AM [facility] Carboxyhemoglobin 1.8 0.0 - 2.0 % 2024 3:21 AM [facility] O2 Content Arterial 10.6 Interpret within clinical context ml/dL 03/16/2025 3:21 AM [facility] Hemoglobin by COOX 7.7(L) 12.0 - 17.6 g/dL 03/16/2025 3:21 AM [facility] O2 Saturation Arterial 99 90 - 100 % 03/16/2025 3:21 AM [facility] FI O2 Arterial 28.0 % 03/16/2025 3:21 AM CDT [facility] Blood, arterial ARTERIAL BLOOD SPECIMEN / Unknown Arterial Puncture / Unknown 03/16/2025 3:11 AM CDT 03/16/2025 3:16 AM CDT Narrative [facility] - 03/16/2025 3:21 AM CDT Carboxyhemoglobin Normal Concentration: Non-smokers: 0-2%; Smokers: 0-9%; Toxic: >20% us Nayan Hernandez COOK HELPER PASTRY-WEB PROGRAMMER LAB - BLOOD GASES O RDERABLES Final Result [facility] [address] [place] [address], [facility] [phone] * TRANSFUSE RED BLOOD CELL LEUKOREDUCED UNIT(S) [...] - 400 mg/dL 03/15/2025 6:03 PM CDT [facility] Blood BLOOD SPECIMEN / Unknown Venipuncture / Unknown 03/15/2025 5:32 PM CDT 03/15/2025 5:35 PM CDT Mariya Botello PA-C LAB - COAGULATION ORDERABLES Final Result Performing Organization Address [facility] Co de Phone Number [address] [address], [place] [phone] * PTT (03/15/2025 5:32 PM CDT) Only the most recent of2 resultswithin the time period is included. APTT 29.8 23.0 - 38.4 Seconds 03/15/2025 6:05 PM CDT [facility] Comment:Suggested therapeuti c range for full dose I.V. unfractionated heparin therapy for venous thromboembolism is 71 to 109 seconds. Blood BLOOD SPECIMEN / Unknown Venipuncture / Unknown 03/15/2025 5:32 PM CDT 03/15/2025 5:35 PM CDT Mariya Ayan PA-C LAB - COAGULATION ORDERABLES Final Result Performing Organization Address [facility] Co de Phone Number [address] [address], [facility] [phone] * (ABNORMAL) DIFFERENTIAL MANUAL (03/15/2025 5:32 PM CDT) Neutrophil % 90(H) 41 - 74 % 03/15/2025 6:09 PM CDT [facility] Lymphocyte % 6(L) 17 - 47 % 03/15/2025 6:09 PM CDT [facility] Monocyte % 4 3 - 11 % 03/15/2025 6:09 PM CDT [facility] Neutrophil Absolute 19.53(H) 1.60 - 7.50 x10E9/L 03/15/2025 6:09 PM CDT [facility] Lymphocyte Absolute 1.30 1.00 - 4.40 x10E9/L 03/15/2025 6:09 PM CDT [facility] Monocyte Absolute 0.87 0.15 - 1.00 x10E9/L 03/15/2025 6:09 PM [facility] RBC Morphology REVIEWED 03/15/2025 6:09 PM [facility] Large Platelets PRESENT(A) (none) 03/15/2025 6:09 PM [facility] Blood BLOOD SPECIMEN / Unknown Venipuncture / Unknown 03/15/2025 5:32 PM CDT 03/15/2025 5:38 PM CDT us Mariya Botello PA-C LAB - HEMATOLOGY ORDERABLES Final Result [facility] [address] [place] [address], [facility] [phone] * (ABNORMAL) CBC W AUTO DIFFERENTIAL (03/15/2025 5:32 PM CDT) Only the most recent of14 resultswithin the time period is included. WBC 21.7(H) 4.0 - 10.7 x10E9/L 03/15/2025 6:09 PM [facility] RBC Count 2.71(L) 4.30 - 5.80 x10E12/L 03/15/2025 6:09 PM [facility] Hemoglobin 7.9(L) 13.3 - 17.5 g/dL 03/15/2025 6:09 PM [facility] Hematocrit 24.0(L) 38.7 - 51.1 % 03/15/2025 6:09 PM [facility] MCV 88.6 80.0 - 98.0 fL 03/15/2025 6:09 PM [facility] MCH 29.2 26.7 - 33.6 pg 03/15/2025 6:09 PM [facility] MCHC 32.9 31.7 - 36.3 g/dL 03/15/2025 6:09 PM [facility] RDW-CV 15.9(H) 11.3 - 14.8 % 03/15/2025 6:09 PM [facility] Platelet Count 251 150 - 420 x10E9/L 03/15/2025 6:09 PM CDT [facility] MPV 9.5 7.8 - 11.4 fL 03/15/2025 6:09 PM CDT [facility] Blood BLOOD SPECIMEN / Unknown Venipuncture / Unknown 03/15/2025 5:32 PM CDT 03/15/2025 5:38 PM CDT Mariya Botello PA-C LAB - HEMATOLOGY ORDERABLES Final Result [facility] [address] [place] [address], [facility] [phone] * CULTURE FUNGUS OTHER+FUNGUS SMEAR (03/15/2025 5:06 PM CDT) Culture No fungus isolated [place] 04/10/2025 7:07 AM CDT [facility] Fungus Stain No yeast or hyphae seen 04/10/2025 7:07 AM CDT [facility] Microbiology TISSUE SPECIMEN / Unknown Collection / Unknown 03/15/2025 5:06 PM CDT 03/15/2025 5:06 PM CDT Rahul Hernandez MD LAB - MICROBIOLOGY ORDERABLES Final Result [facility] [address] [place] [address], [facility] [phone] * CULTURE WOUND+GRAM STAIN (03/15/2025 5:06 PM CDT) Culture No growth [place] 03/19/2025 1:10 PM CDT [facility] Gram Stain Light Polymorphonuclear cells 03/19/2025 1:10 PM CDT [facility] Gram Stain No organisms seen 025 1:10 PM CDT [facility] Microbiology TISSUE SPECIMEN / Unknown Collection / Unknown 03/15/2025 5:06 PM CDT 03/15/2025 5:06 PM CDT Rahul Hernandez MD LAB - MICROBIOLOGY ORDERABLES Final Result Performing Organization Address City/[facility]/ZIP Co de Phone Number [facility] [address] [place] [address], [facility] [phone] * CULTURE ANAEROBE (03/15/2025 5:06 PM CDT) Culture No anaerobic organisms isolated [place] 03/20/2025 12:08 PM CDT [facility] Microbiology TISSUE SPECIMEN / Unknown Collection / Unknown 03/15/2025 5:06 PM CDT 03/15/2025 5:06 PM CDT Rahul Hernandez MD LAB - MICROBIOLOGY ORDERABLES Final Result Performing Organization Address [facility] Co de Phone Number [facility] [address] [place] [address], [facility] [phone] * TRANSFUSE FRESH FROZEN PLASMA UNIT(S) (03/15/2025 [...] were not saved. I personally performed. CPT 84922 with bilateral modifier. Alexa Page MD GENERAL [...] 7.35 - 7.45 pH 03/15/2025 4:00 PM [facility] pO2 Arterial 384(H) 80 - 100 mmHg 03/15/2025 4:00 PM [facility] pCO2 Arterial 41 35 - 45 mmHg 4:00 PM [facility] HCO3 Arterial 22.1 20.0 - 30.0 mmol/L 03/15/2025 4:00 PM [facility] BE Arterial -3.4(L) -2.0 - 2.0 mmol/L 03/15/2025 4:00 PM [facility] Oxyhemoglobin Arterial 97.9 % 03/15/2025 4:00 PM [facility] Dexoyhemoglobin (HHB) % <1.0 % 03/15/2025 4:00 PM [facility] Methemoglobin 1.1 0.0 - 2.0 % 03/15/2025 4:00 PM [facility] Carboxyhemoglobin 1.0 0.0 - 2.0 % 2024 4:00 PM [facility] Comment:Carboxyhemoglobin No rmal Concentration: Non-smokers: 0-2%; Smokers: 0- 9%; Toxic: >20% O2 Content Arterial 13.2 Interpret within clinical context ml/dL 03/15/2025 4:00 PM [facility] Hemoglobin by COOX 8.8(L) 12.0 - 17.6 g/dL 03/15/2025 4:00 PM [facility] O2 Saturation Arterial 100 90 - 100 % 03/15/2025 4:00 PM [facility] Sodium Whole Blood 138 135 - 145 mmol/L 03/15/2025 4:00 PM [facility] Potassium Whole Blood 4.1 3.5 - 5.5 mmol/L 03/15/2025 4:00 PM [facility] Chloride WB 107 78 - 107 mmol/L 03/15/2025 4:00 PM [facility] Calcium Ionized 1.36 mmol/L 4:00 PM [facility] Ionized Calcium pH Adjusted 1.33 1.19 - 1.34 mmol/L 03/15/2025 4:00 PM [facility] Anion Gap (AG) Arterial 9 6 - 16 mmol/L 03/15/2025 4:00 PM [facility] Glucose WB 193(H) 70 - 99 mg/dL 03/15/2025 4:00 PM [facility] Lactic Acid Whole Blood 1.8 <=2.0 mmol/L 03/15/2025 4:00 PM CDT [facility] Blood, arterial ARTERIAL BLOOD SPECIMEN / Unknown 03/15/2025 4:00 PM CDT 03/15/2025 4:00 PM CDT Cornelia Serra MD LAB - POINT OF CARE ORDERABLE S Final Result Performing Organization Address City/[facility]/ZIP Co de Phone Number [address] [address], [place] [phone] * TRANSFUSE RED BLOOD CELL LEUKOREDUCED UNIT(S) (03/15/2025 3:30 PM CDT) Rahul Hernandez MD NURSING - BLOOD PRO D TRANSFUSION Final Result * ACT PLUS - POCT ([facility]) (03/15/2025 3:17 PM CDT) Only the most recent of8 resultswithin the time period is included. [facility] ACT PLUS 112 See result comments sec 03/15/2025 3:21 PM CDT [facility] Blood BLOOD SPECIMEN / Unknown 03/15/2025 3:17 PM CDT 03/15/2025 3:21 PM CDT Narrative [facility] - 03/15/2025 3:21 PM CDT ACT+ Therapeutic ranges for the ACT+ test in surgery areas are: Greater than (>) 360 seconds for surgical patients Greater than (>) 450 seconds for surgical bypass patients Cornelia Serra MD LAB - COAGULATION ORDERABLES Final Result [address] [address], [place] [phone] * (ABNORMAL) TEG 6 GLOBAL HEMOSTASIS WITH HEPARIN NEUTRALIZATION (03/15/2025 3:10 PM CDT) CITRATED KAOLIN R (CK-R REACTION TIME) 5.4 4.6 - 9.1 min 03/15/2025 4:11 PM CDT [facility] CITRATED KAOLIN MA (CK-MA MAX AMPLITUDE) 70.3(H) 52.0 - 69.0 mm 03/15/2025 4:11 PM CDT [facility] CITRATED KAOLIN HEPARINASE R ( [facility] R REACTION TIME) 4.7 4.3 - 8.3 min 03/15/2025 4:11 PM CDT [facility] CITRATED KAOLIN HEPARINASE LY30 ([facility] LY30 LYSIS) 0.0 0.0 - 3.2 % 03/15/2025 4:11 PM CDT [facility] CITRATED RAPIDTEG HEPARINASE MA ( [facility] MA MAX AMPLITUDE) 69.5(H) 53.0 - 69.0 mm 03/15/2025 4:11 PM CDT [facility] CITRATED FUCTIONAL FIBRINOGEN HEPARINASE ( [facility] MAX AMPLITUDE) 39.1(H) 15.0 - 34.0 mm 03/15/2025 4:11 PM CDT [facility] Blood BLOOD SPECIMEN / Unknown 03/15/2025 3:10 PM CDT 03/15/2025 3:18 PM CDT Alexa Page MD LAB - HEMATOLOGY ORDERABL ES Final Result [address] [address], [facility] [phone] * PLATELET COUNT AUTO CITRATED BLOOD (03/15/2025 2:33 PM CDT) [facility] Platelet Count Citrated 215 150 - 420 x10E9/L 03/15/2025 3:49 PM CDT [facility] Blood BLOOD SPECIMEN / Unknown Venipuncture / Unknown 03/15/2025 2:33 PM CDT 03/15/2025 2:33 PM CDT Narrative [facility] - 03/15/2025 3:49 PM CDT This test was developed and its performance characteristics determined by the clinical laboratories of [facility] and [facility]. It has not been cleared and approved by the [place] Food and Drug Administration. Alexa Page MD LAB - HEMATOLOGY ORDERABL ES Final Result [facility] [address] [place] [address], [facility] [phone] * PATHOLOGY TISSUE (03/15/2025 1:53 PM CDT) Case Report Surgical Pathology Report Case: [id number] Authorizing Provider: Rahul Hernandez Collected: 03/15/2025 01:53 PM MD Tyrell Ordering Location: [facility] ZUNILDA OP Received: 03/16/2025 05:08 AM [...] are no vegetations or calcific nodules present. Seismograph Operator Helper sections are submitted in a single cassette labeled A1. RB 03/17/2025 3:58 PM CDT [facility] Pathologist Location at [facility] 03/17/2025 3:58 PM CDT [facility] Disclaimer The performance characteristics of all immunohistochemical and indirect immunofluorescence stains (if any) cited in this report were determined by the Histopathology Laboratory of [facility]. Some of these tests were developed [...] attending (teaching) pathologist. 03/17/2025 3:58 PM CDT [facility] Embedded Images 03/17/2025 3:58 PM CDT [facility] Resection without Tumor ENTIRE MITRAL VALVE / Unknown 03/15/2025 1:53 PM CDT 03/16/2025 5:08 AM CDT Comment:Pre-op diagnosis: mitral valve regurgitation us Rahul Hernandez MD LAB - PATHOLOGY/CYT OLOGY ORDERABLES Final Result Performing Organization Address City/State/[facility] Co de Phone Number [facility]OLOG[facility] LAB [address] [phone] * PA CATH PERFORMABLE, INTRODUCER (03/15/2025 12:19 [...] Provider: Ricki Shields DO Performed the procedure Alexa Page MD GENERAL ANESTHESIA ORDERA BLES Final Result * ETT LINE PERFORMABLE (03/15/2025 12:18 PM CDT) Narrative Ricki Shields DO - 03/15/2025 12:18 PM CDT Ricki Shields DO 03/15/2025 12:18 PM Endotracheal Tube Placement: Patient Location: OR. Intubation Event Date/Time: 03/15/2025 11:38 AM Procedure: intubation (07296) Procedure Section: Sedation: under general anesthesia. Indications [...] Time: 03/15/2025 11:32 AM Procedure: Arterial Line (90117) Procedure Section Indications: continuous blood pressure monitoring. [...] See Separate Report 03/15/2025 9:31 AM CDT [facility] Other MISCELLANEOUS SAMPLES / Unknown 03/15/2025 8:06 AM CDT 03/15/2025 8:07 AM CDT Rahul Hernandez MD LAB - BLOOD GASES O RDERABLES Final Result [address] [address], [place] [phone] * BLOOD GAS ART+LYTES+METAB+COOX POC NOTIF (03/15/2025 8:06 AM CDT) Comment Notification Label Only - See Separate Report 03/15/2025 9:31 AM CDT [facility] Other MISCELLANEOUS SAMPLES / Unknown 03/15/2025 8:06 AM CDT 03/15/2025 8:07 AM CDT us Rahul Hernandez MD LAB - BLOOD GASES O RDERABLES Final Result [address] [address], [facility] [phone] * ECHO ANES SINTIA INTRAOP (03/15/2025 6:23 [...] 10:01 AM Patient Status: I/P Study Site: [facility] Primary Location: [facility] EStudy Info Exam Type: ECHO [...] 10:01 AM Patient Status: I/P Study [facility] Type: E[facility] ANES SINTIA INTRAOP Indications R09.89 - Endocarditis, suspected * A complete transesophageal echo was performed using 2D, color Doppler,and spectral Doppler. Staff Referring Physician: Cornelia Serra Ordering Provider: Cornelia Rhoadesheamena Performing Physician: Alexa Page Complications * There [...] UNIT(S) (03/14/2025 5:37 PM CDT) Ofelia Mckee COOK HELPER PASTRY-WEB PROGRAMMER NURSING - BLOOD PROD TRANSFUSION Final Result * PREPARE (CROSSMATCH) RBC UNIT(S), 1 Units (03/14/2025 5:21 AM CDT) Only the most recent of6 resultswithin the time period is included. Unit Description N/A [facility] Blood Bank BLOOD SPECIMEN / Unknown 03/14/2025 5:21 AM CDT 03/14/2025 5:53 AM CDT Rahul Hernandez MD LAB - BLOOD BANK OR DERABLES Final Result [facility] [address] [place] [address], [facility] [phone] * PREPARE PLATELET PHERESIS UNIT(S), 2 Units (03/14/2025 5:21 AM CDT) Only the most recent of2 resultswithin the time period is included. Unit Description LR PLT Phere B7 [facility] Unit ABO O [facility] Unit Rh POS [facility] Product Number P27 [facility] B LO[facility] LAB Unit Donor # [id number] [facility] Unit Status transfused [facility] B[facility] OD [facility] Product Code [id number] [facility] Blood Type Barcode 5109 [facility] Expiration Date [id number] S BLOOD BANK LAB Unit Description LR PLT Phere B7 [facility] Unit ABO O [facility] Unit Rh POS [facility] Product Number P27 [facility] LO[facility] Unit Donor # [id number] [facility] Unit Status released [facility] Product Code [id number] [facility] OD [facility] Blood Type Barcode 5100 [facility] Expiration Date [id number] [facility] Blood Bank BLOOD SPECIMEN / Unknown 03/14/2025 5:21 AM CDT 03/14/2025 5:53 AM CDT Rahul Hernandez MD LAB - BLOOD BANK OR DERABLES Final Result [facility] [address] [place] [address], [facility] [phone] * PREPARE FFP UNIT(S), 4 Units (03/14/2025 5:21 AM CDT) Only the most recent of2 resultswithin the time period is included. Unit Description Liquid Plasma [facility] Unit ABO A [facility] Unit Rh POS [facility] Product Number E2457 [facility] B LOOD [facility] Unit Donor # [id number] [facility] Unit Status released [facility] D [facility] Product Code [id number] [facility] Blood Type Barcode 6200 [facility] Expiration Date [id number] [facility] Unit Description Liquid Plasma [facility] Unit ABO A [facility] B[facility] Unit Rh POS [facility] Product Number E2457 [facility] B LOOD [facility] Unit Donor # [id number] [facility] Unit Status transfused [facility] B[facility] OD [facility] Product Code [id number] [facility] Blood Type Barcode 6200 [facility] Expiration Date [id number] [facility] Blood Bank BLOOD SPECIMEN / Unknown 03/14/2025 5:21 AM CDT 03/14/2025 5:53 AM CDT us Rahul Hernandez MD LAB - BLOOD BANK OR DERABLES Final Result [facility] [address] [place] [address], [facility] [phone] * (ABNORMAL) URINALYSIS REFLEX MICROSCOPIC REFLEX CULTURE (03/13/2025 9:10 AM CDT) Only the most recent of2 resultswithin the time period is included. Color UA Colorless(A) Yellow, Straw 03/13/2025 9:50 AM [facility] Clarity UA Clear Clear 03/13/2025 9:50 AM [facility] Glucose UA 1+(A) Normal 03/13/2025 9:50 AM [facility] Bilirubin UA Negative Negative 03/13/2025 9:50 AM [facility] Ketone UA Negative Negative 03/13/2025 9:50 AM [facility] Specific Morgan UA 1.012 1.005 - 1.030 03/13/2025 9:50 AM [facility] Blood UA Negative Negative 03/13/2025 9:50 AM [facility] pH UA 6.5 5.0 - 8.0 03/13/2025 9:50 AM [facility] Protein UA 1+(A) Negative 03/13/2025 9:50 AM [facility] Urobilinogen UA Normal Normal mg/dL 03/13/2025 9:50 AM [facility] Nitrite UA Negative Negative 03/13/2025 9:50 AM [facility] Leukocyte Esterase UA Negative Negative 03/13/2025 9:50 AM [facility] RBC UA 0-2 0 - 5 # /hpf 03/13/2025 9:50 AM [facility] WBC UA 0-5 0 - 5 # /hpf 03/13/2025 9:50 AM [facility] Bacteria UA None Seen None Seen 03/13/2025 9:50 AM [facility] Squamous Epithelial Cells None Seen 0 - 5 /hpf 03/13/2025 9:50 AM CDT [facility] Mucus UA 1+ /LPF 03/13/2025 9:50 AM CDT [facility] Reflex Status Culture not indicated 03/13/2025 9:50 AM CDT [facility] Urine URINE SPECIMEN OBTAINED BY CLEAN CATCH PROCEDURE / Unknown Collection / Unknown 03/13/2025 9:10 AM CDT 03/13/2025 9:19 AM CDT Narrative [facility] - 03/13/2025 9:50 AM CDT Ofelia Mckee [employer] LAB - URINALYSIS ORDE RYAN Final Result [facility] [address] [place], [place] [address], [place] [phone] * BLOOD TYPE VERIFICATION (03/10/2025 10:02 PM CDT) ABO Rh O POS 03/10/2025 10:56 PM CDT [facility] Blood Bank BLOOD SPECIMEN / Unknown Lab Venipuncture / Unknown 03/10/2025 10:02 PM CDT 03/10/2025 10:11 PM CDT Yousuf Chaudhari PA-C LAB - BLOOD BANK ORDERABLES Final Result [facility]OD [facility] LAB [address] [place] [address], [place] [phone] * CT Chest Wo Contrast (03/10/2025 2:43 [...] > Dictated by Nick Jay MD, (resident services manager). > Dictated by Real Estate Utilization Officer Jen Cason MD have personally reviewed and interpreted this examination/study. 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 > Dictated by Real Estate Utilization Officer IJen MD have personally reviewed and interpreted [...] PMHx HTN, COPD, CKD, GERD presented to [facility] as OSH transfer for CTS evaluation [...] Event Date/Time: 03/09/2025 6:17 PM Procedure: intubation (11415) Procedure Section: Sedation: under general anesthesia. Indications [...] indicated. > Dictated by Eunice Ramirez (resident services manager). > Dictated by Eunice Ramirez 03/09/2025 11:07 AM > Dictated by Real Estate Utilization Officer IJen MD have personally reviewed and interpreted [...] bladder with DICOM image capture performed by fibre technologist. FINDINGS: Right kidney: 10.9 x 5.6 [...] and bladder with DICOMimage capture performed by fibre technologist. FINDINGS: Right kidney: 10.9 x 5.6 [...] indicated. > Dictated by Eunice Ramirez (resident services manager). > Dictated by Eunice Ramirez 03/09/2025 11:07 AM > Dictated by Real Estate Utilization Officer IJen MD have personally reviewed and interpreted this examination/study. > Interpreting Provider: Jen Thomson MD on 03/09/2025 1:40 PM us Adalberto Arroyo MD ORDERABLES Final Result * VITAMIN D 25-HYDROXY (03/08/2025 5:06 AM CDT) Vitamin D, 25 Hydroxy 39.0 30.0 - 80.0 ng/mL 03/08/2025 6:22 AM CDT [facility] Comment: The recommendations for 25-Hydroxy [...] ORDERABLES F inal Result Performing Organization Address City/[facility]/ZIP Co de Phone Number [address] [address], [place] [phone] * (ABNORMAL) PTH INTACT W/O CALCIUM (03/08/2025 5:05 AM CDT) PTH Intact 80.3(H) 8.0 - 77.0 pg/mL 03/08/2025 6:10 AM CDT [facility] Blood BLOOD SPECIMEN / Unknown Lab Venipuncture / Unknown 03/08/2025 5:05 AM CDT 03/08/2025 5:34 AM CDT Adalberto Arroyo MD LAB - CHEMISTRY ORDERABLES F inal Result Performing Organization Address City/[facility]/ZIP Co de Phone Number [address] [address], [place] [phone] * (ABNORMAL) IRON + TRANSFERRIN PANEL (03/08/2025 5:05 AM CDT) Iron 38(L) 50 - 175 ug/dL 03/08/2025 6:09 AM CDT [facility] Transferrin 201 174 - 382 mg/dL 03/08/2025 6:09 AM CDT [facility] Transferrin Saturation % 15(L) 16 - 50 % 03/08/2025 6:09 AM T [facility] TIBC Calculated 251 240 - 450 ug/dL 03/08/2025 6:09 AM T [facility] Blood BLOOD SPECIMEN / Unknown Lab Venipuncture / Unknown 03/08/2025 5:05 AM CDT 03/08/2025 5:24 AM CDT Adalberto Arroyo MD LAB - CHEMISTRY ORDERABLES F inal Result Performing Organization Address [facility]/ZIP Co de Phone Number [address] [address], [facility] [phone] * (ABNORMAL) FERRITIN (03/08/2025 5:05 AM CDT) Ferritin 447(H) 22 - 275 ng/mL 03/08/2025 6:13 AM CDT [facility] Blood BLOOD SPECIMEN / Unknown Lab Venipuncture / Unknown 03/08/2025 5:05 AM CDT 03/08/2025 5:24 AM CDT Adalberto Arroyo MD LAB - CHEMISTRY ORDERABLES F inal Result Performing Organization Address [facility] Co de Phone Number [address] [address], [facility] [phone] * VAS Carotid Duplex Bilateral (03/07/2025 4:07 PM CDT) Anatomical Region Laterality Modality Neck Intravascular Ul trasound 03/07/2025 2:33 PM CDT Narrative Procedure Note Osvaldo Doyle MD - 03/08/2025 Kota Estrella COOK HELPER PASTRY-WEB PROGRAMMER VASCULAR LAB ORDERABLE S Edited Result - [...] 10:44 AM Patient Status: I/P Study Site: [facility] Primary Location: [facility] EStudy Info Exam Type: ECHO SINTIA COMPLETE Indications I34.81 - Calcification of mitral valve Contrast/Agitated Saline Contrast / Saline: Agitated Saline Amount: 10.00 ml Reaction to Contrast: no * A 3D, 2D, color Doppler and spectral Doppler transesophageal echocardiogram was performed with a Bubble Study. Staff Referring Physician: Pramod Torres Ordering Provider: Pramod Torres Attending Physician: Pramod Torres Fellow: Osvaldo Sepulveda Combat Systems Officer: Iris Greco Performing Physician: Tahmina Bui Complications [...] anterior mitral valve leaflet tip (around the A2/D3lpghwcj tip). * There is moderate to severe [...] 10:44 AM Patient Status: I/P Study Site: [facility] Primary Location: [facility] EStudy Info Exam Type: ECHO SINTIA COMPLETE Indications I34.81 - Calcification of mitral valve Contrast/Agitated Saline Contrast / Saline: Agitated Saline Amount: 10.00 ml Reaction to Contrast: no * A 3D, 2D, color Doppler and spectral Doppler transesophagealechocardiogram was performed with a Bubble Study. Staff Referring Physician: Pramod Torres Ordering Provider: Pramod Torres Attending Physician: Pramod Torres Fellow: Osvaldo Sepulveda Combat Systems Officer: Iris Greco Performing Physician: Tahmina Bui Complications [...] anterior mitral valve leaflet tip (around the A2/R8hvxacly tip). There is moderate to severe mitral [...] day 5 LAVELLE 03/09/2025 1:30 PM CDT [facility] Blood PERIPHERAL BLOOD / Unknown Lab Venipuncture / Unknown 03/04/2025 11:09 AM CDT 03/04/2025 11:25 AM CDT us Pramod Torres DO LAB - MICROBIOLOGY ORDERABLES Final Result [facility] [address] [place] [address], [facility] [phone] * HEPATITIS C AB SCREEN RFLX NAAT QUANT (03/04/2025 6:36 AM CDT) Hepatitis C Antibody Non-react francisco Non-reac tive 03/04/2025 8:16 AM CDT [facility] Comment:Hepatitis C Antibody screen indicates no [...] ORDERABLES Fin al Result Performing Organization Address City/[facility]/ZIP Co de Phone Number [address] [address], [facility] [phone] * HIV-1 HIV-2 ANTIBODY + HIV P24 AG PANEL (03/04/2025 6:36 AM CDT) HIV Antigen/Antibod y 1 & 2 Non-reacti ve Non-react francisco 03/04/2025 9:14 AM CDT [facility] Comment:No Laboratory eviden ce of HIV infection. Blood BLOOD SPECIMEN / Unknown Lab Venipuncture / Unknown 03/04/2025 6:36 AM CDT 03/04/2025 6:55 AM CDT Pramod Torres DO LAB - CHEMISTRY ORDERABLES Fin al Result Performing Organization Address City/[facility]/ZIP Co de Phone Number [address] [address], [facility] [phone] * HEPATITIS B PANEL (03/04/2025 6:36 AM CDT) Hepatitis B Surface Antibody Quantitative <3.0 <8.0 mIU/mL 03/04/2025 8:41 AM CDT [facility] Comment: Hepatitis B Surface Antibody Numeric Result Interpretation: Nonreactive: <8.0 mIU/mL Indeterminate: 8.0 - 12.0 mIU/mL Reactive: >12.0 mIU/mL Hepatitis B Virus Surface Antibody Non-react francisco Non-react francisco 03/04/2025 8:41 AM CDT [facility] Comment: < 8 mIU/mL Hepatitis B surface Antibody (HBsAb). Nonreactive for HBsAb - individual is considered not immune to Hepatitis B Virus infection. Hepatitis B Virus Surface Antigen Non-react francisco Non-react francisco 03/04/2025 8:41 AM CDT [facility] Hepatitis B Core Virus Antibody IgM Non-react francisco Non-react francisco 03/04/2025 8:41 AM CDT [facility] Blood BLOOD SPECIMEN / Unknown Lab Venipuncture / Unknown 03/04/2025 6:36 AM CDT 03/04/2025 6:55 AM CDT Pramod Torres DO LAB - CHEMISTRY ORDERABLES Fin al Result Performing Organization Address City/State/[facility] Co de Phone Number [facility] [address] [place] [address], [facility] [phone] * XR Panorex (03/03/2025 4:22 PM CDT) Anatomical Region Laterality Modality Head Radiographic Melba ging 03/04/2025 8:30 AM CDT Impressions 03/04/2025 9:17 AM CDT IMPRESSION: Lucencies within the right mandibular presumed location of absent of the molar and premolar teeth. Recommend dental consultation. The report was drafted by Ofe Aponte MD (residential case manager) 03/04/2025 8:30 AM. > Dictated by Real Estate Utilization Officer I, Jamie Barriga MD have personally reviewed and interpreted this examination/study. 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 > Dictated by Real Estate Utilization Officer I, Jamie Barriga MD have personally reviewed and interpreted this examination/study. > Interpreting Provider: Jamie Barriga MD on 03/04/2025 9:17 AM Pramod Torres DO DIAGNOSTIC IMAGING ORDERABLES Final Result * URINE DRUG SCREEN IMMUNOASSAY (03/03/2025 12:34 PM CDT) Amphetamines Screen Urine Negative Negative: < 1000 ng/mL 03/03/2025 1:24 PM CDT [facility] Barbiturates Screen Urine Negative Negative: < 200 ng/mL 03/03/2025 1:24 PM CDT [facility] Benzodiazepine Screen Urine Negative Negative: < 200 ng/mL 03/03/2025 1:24 PM CDT [facility] Opiates Urine Negative Negative: < 300 ng/mL 03/03/2025 1:24 PM CDT [facility] Cocaine Metabolites Urine Negative Negative: < 300 ng/mL 03/03/2025 1:24 PM CDT [facility] Phencyclidine Screen Urine Negative Negative: < 25 ng/ml 03/03/2025 1:24 PM CDT [facility] Cannabinoids Screen Urine Negative Negative: <50 ng/mL 03/03/2025 1:24 PM CDT [facility] Methadone Screen Urine Negative Negative: < 300 ng/mL 03/03/2025 1:24 PM T [facility] Fentanyl Screen Urine Negative Negative: <1.5 ng/mL 03/03/2025 1:24 PM T [facility] Urine URINE / Unknown Collection / Unknown 03/03/2025 12:34 PM CDT 03/03/2025 12:39 PM CDT Narrative [facility] - 03/03/2025 1:24 PM CDT The Urine Toxicology Screening Panel does not screen for Propoxyphene, Meprobamate, Carisoprodol, Trazodone, becf-wle-fqmekeo medications and/or volatiles (Acetone, Isopropanol, Methanol or Ethylene Glycol). Ethanol, Salicylate, Acetaminophen, Tricyclic Antidepressants and several therapeutic drugs may be individually assayed in serum or plasma specimen. Toxicology testing by the [facility] is an aid to medical diagnosis and treatment of patients. No documented chain of custody was maintained. Results are intended to be used for clinical purposes only. us Pramod Torres DO LAB - URINE CHEMISTRY ORDERABL ES Final Result [facility] [address] [place] [address], [facility] [phone] * VANCOMYCIN LEVEL RANDOM (03/03/2025 5:00 AM CDT) Only the most recent of3 resultswithin the time period is included. Vancomycin Random 17.1 Therapeutic Ranges not established for random specimens ug/mL 03/03/2025 6:06 AM CDT [facility] Blood BLOOD SPECIMEN / Unknown Lab Venipuncture / Unknown 03/03/2025 5:00 AM CDT 03/03/2025 5:31 AM CDT Narrative [facility] - 03/03/2025 6:06 AM CDT See institution protocol. Pramod Torres DO LAB - CHEMISTRY ORDERABLES Fin al Result [address] [address], [place] [phone] * MRSA PCR (03/02/2025 8:47 AM CDT) Pathologist [facility] MRSA DNA by PCR Not detected Not detected 03/02/2025 3:41 PM CDT [facility] Microbiology SPECIMEN FROM NASAL FOSSAE / Unknown Collection / Unknown 03/02/2025 8:47 AM CDT 03/02/2025 8:52 AM CDT Narrative [facility] - 03/02/2025 3:41 PM CDT Methicillin-resistant Staphylococcus aureus (MRSA) DNA is not detected (presumed not colonized with MRSA). us Shira Harris MD LAB - MICROBIOLOGY ORDERABLES Fi nal Result Performing Organization Address City/[facility]/ZIP Co de Phone Number [facility] [address] [place] [address], [facility] [phone] * MONONUCLEOSIS SCREEN (03/02/2025 5:34 AM CDT) Pathologist [facility] Mononucleosis Qualitative Negative Negative 03/02/2025 6:42 AM CDT [facility] Blood BLOOD SPECIMEN / Unknown Lab Venipuncture / Unknown 03/02/2025 5:34 AM CDT 03/02/2025 6:11 AM CDT us Shira Harris MD LAB - CHEMISTRY ORDERABLES Final Result Performing Organization Address City/[facility]/ZIP Co de Phone Number [address] [address], [place] [phone] * (ABNORMAL) BLOOD CULTURE ID PANEL (03/02/2025 5:33 AM CDT) [facility] Enterococcus faecalis Detected(A) Not detected 03/03/2025 10:33 AM CDT [facility] Van A/B Vancomycin Resistance Not detected Not detected 03/03/2025 10:33 AM CDT [facility] Comment:Results indicate van comycin-susceptible Enterococcus faecalis. Nasir/B not detected. Blood PERIPHERAL BLOOD / Unknown Lab Venipuncture / Unknown 03/02/2025 5:33 AM CDT 03/02/2025 6:06 AM CDT Narrative [facility] - 03/03/2025 10:33 AM CDT Blood Culture ID Panel performed by [employer] multiplex PCR. The Test panel includes: Gram [...] and MREJ (methicillin-resistance - MRSA), NDM ([place] ijzrfzy-krjx-enxpzsscf), OXA-48-like (oxacillinase beta-lactamase),Nasir/B (vancomycin-resistance), VIM (Sangeeta Intergrom-Encoded Metallo beta-lactamase). us Shira Harris MD LAB - MICROBIOLOGY ORDERABLES Fi nal Result [facility] [address] [place] [address], [facility] [phone] from Last 3 Months Insurance ANTHEM Advance Directives * Full Code (Latest Code Status on File) Date Activated Date Inactivated Comments 03/01/2025 10:01 PM 03/23/2025 4:41 PM Care Teams Regional Business Development Manager Relationship Specialty Start Date End Date Carlos Ventura MD [address] [place] [address] PCP - General Internal Medicine 03/17/25
--- OUTSIDE RECORDS SUMMARY | 2025-04-12 13:56 | XMS_ITS | Encounter Summary ---
Author Organization [facility] Address [address] [place] [address] Care Team Providers Care Nut Sheller Name Role Phone Carlos Ventura MD Primary Care Provider [phone] Rosy Valderrama MD Unavailable Rahul Hernandez MD Unavailable [phone] Encounter Details Date Type Department Care Team (Late st Contact Info) Description 04/12/2025 Orders Only [facility] [address] [place], [place] [address] Rosy Valderrama MD [address] [place], [place] [id number] Social History Tobacco Use Types Packs/Day Years Used Date Smoking Tobacco: Never Smokeless Tobacco: Never Alcohol Use Standard Drinks/Week Comments Yes 23.3 (1 standard drink = 0.6 oz pure alcohol) vodka every evening [facility] Utilities Answer Date Recorded In the past 12 months has [facility] [employer], gas, oil, or water [employer] threatened to shut off services in your [...] any time in the past 12 m [facility], were you homeless or living in [...] 2:00 AM CDT Vivian Sheikh RN Active * Are you [...] 2:00 AM CDT Vivian Sheikh RN Active * Because of [...] Description 04/14/2025 3:15 PM CDT Office Visit [facility] [address] [place] [address] Rosy Valderrama MD [address] [place], [place] [id number] Scheduled Orders Name Type Priority Associated Diagnoses Orde r Schedule ELECTROCARDIOGRAM (NON MIDMARK ACQUIRED) EKG-NonRad Routine Familial hypercholesterolemia Essential (primary) hypertension Expected: 04/14/2025, Expires: 10/10/2025 documented as of this encounter Visit Diagnoses Diagnosis Familial hypercholesterolemia- Primary Pure hypercholesterolemia Essential (primary) hypertension Unspecified essential hypertension documented in this encounter Care Teams Nut Sheller Relationship Specialty Start Date End Date Carlos Ventura MD [address] [place] [phone] PCP - General INTERNAL MEDICINE 03/03/24 Rosy Valderrama MD [address] [place], [place] [phone] Perryman Tetryl Boiling Tub Operator CARDIOVASCULAR DISEASE 03/24/25 Rahul Hernandez MD [address] [facility] [address] [place] [address] CARDIOTHORACIC SURGERY 03/24/25 documented as of this encounter
[2025-04-12 14:02] LABS: Hematocrit 33.9 % (37.0-46.0); Hemoglobin 10.8 g/dL (12.4-15.3); Mean Corpuscular HGB Conc 31.9 g/dL (32-36); Mean Corpuscular Hemoglobin 28.8 pg (27.0-31.0); Mean Corpuscular Volume 90.4 fL (78.0-102.0); Platelet Count Result 326 K/mm3 (150-420); Red Blood Count 3.75 M/mm3 (4.70-6.10); White Blood Count 9.4 K/mm3 (4.8-10.8)
[2025-04-12 14:08] LABS: INR 1.8; Prothrombin Time 19.0 Seconds (9.50-12.1)
[2025-04-12 14:17] LABS: Band Neutrophils Percent 0 % (0-6); Basophils Absolute Manual 0.00 K/mm3 (0-0.1); Basophils Percent Manual 0 % (0-1); Eosinophils Absolute Manual 1.69 K/mm3 (0.02-0.50); Eosinophils Percent Manual 18 % (1-6); Lymphocytes Absolute Manual 1.59 K/mm3 (1.1-4.5); Lymphocytes Percent Manual 17 % (18-44); Monocytes Absolute Manual 0.84 K/mm3 (0.1-0.90); Monocytes Percent Manual 9 % (3-9); Neutrophils Absolute Manual 5.26 K/mm3 (1.3-6.7); Neutrophils Percent Manual 56 % (46-73); Total Cells Counted 100
[2025-04-12 14:21] LABS: Alanine Aminotransferase 11 U/L (6-50); Albumin Level 4.1 g/dL (3.5-5.1); Alkaline Phosphatase 110 U/L (38-126); Anion Gap 12 mmol/L (4-12); Aspartate Amino Transferase 22 U/L (17-59); Bilirubin,Total 0.5 mg/dL (0.2-1.3); Blood Urea Nitrogen 26 mg/dL (9-20); Calcium 9.3 mg/dL (8.4-10.2); Carbon Dioxide 24 mmol/L (22-30); Chloride 109 mmol/L (98-107); Estimated Glomerular Filt Rate 22; Glucose 126 mg/dL (65-110); Osmolality Calculated 306 mOsm/kg (285-295); Potassium 4.0 mmol/L (3.4-5.0); Sodium 145 mmol/L (137-145); Total Protein 9.5 g/dL (6.3-8.2)
== END 2025-04-12 13:50 | disposition home or self-care (01) ==
LOC: CHSHH 13:53
PROVIDERS: PCP Internal Medicine
DX: Z95.2 Presence of prosthetic heart valve (principal); Z79.02 Long term (current) use of antithrombotics/antiplatelets
CPT/HCPCS: 36415; 80053; 85025; 85610

== ENCOUNTER 2025-04-19 13:26 | Outpatient (NON) | payer BC, SELFPAY ==
--- OUTSIDE RECORDS SUMMARY | 2025-04-18 10:15 | XMS_ITS | Encounter Summary ---
Author Organization [facility] Address [address] [place] [address] Care Team Providers Care Nuclear Fuels Research Engineer Name Role Phone Carlos Ventura MD Primary Care Provider [phone] Reason for Referral * Consultation (Routine) - Open Specialty Diagnoses / Procedures Referred By Afia t Referred To Contact Diagnoses S/P MVR (mitral valve replacement) Rahul Hernandez MD [address] [facility] [address] [place] [address] Phone: tel: fax: Referral ID Status Reason Start Date Expiration Date V isits Requested Visits Authorized [id number] Open Specialty Services Required 04/18/2025 04/18/2026 1 1 Scheduling Instructions S/P bio MVR for endocarditis Reason for Visit * Reason Comments Post-Op Encounter Details Date Type Department Care Team (Late st Contact Info) Description 04/18/2025 10:15 AM CDT Office Visit [facility] - Cardiothoracic Surgery [address] [facility] [place] [phone] Ofelia Mckee, PNEUMATIC TUBE FITTER-ROLL SCALE MAN [address] [place] [phone] Rahul Hernandez MD [address] [facility] [address] [place] [address] S/P MVR (mitral valve replacement) (Primary Dx) Social History Tobacco Use Types Packs/Day Years Used Date Smoking Tobacco: Never Smokeless Tobacco: Never Tobacco Cessation:Counseling Given: No Passive Exposure Comments:patient states he has never smoked Alcohol Use [...] and heating? 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 Gender Identity Not on file Sexual Orientation Not on file documented as of this encounter Last Filed Vital Signs Vital Sign Reading Time Taken Comments Blood Pressure 134/87 04/18/2025 9:55 AM CDT Pulse 101 04/18/2025 9:55 AM CDT Temperature 36.7 C (98 F) 04/18/2025 9:55 AM CDT Respiratory Rate - - Oxygen Saturation 95% 04/18/2025 9:55 AM CDT Inhaled Oxygen Concentration - - Weight 86.5 kg (190 lb 12.8 oz) 04/18/2025 9:55 AM CDT Height 167.6 cm (5' 6) 04/18/2025 9:55 AM CDT Body Mass Index 30.8 04/18/2025 9:55 AM CDT documented in this encounter Functional [...] Patient Instructions * Patient Instructions* Alma Rosa Rdoriguez RN - 04/18/2025 10:18 AM CDT We have scheduled you for the following tests: ___ TransThoracic Echo The appointment is scheduled for Today 04/18/25 starting at 1 pm with a 1240 pm arrival. These testsare scheduled at: [facility] [address] [place] [address] You will check in at Outpatient Registration located on the Ground Floor near the Shepherd entrance We will only need to see you back on an as needed basis. Please ensure that you have follow up appointments scheduled with Cardiology and Primary care within the next 2 weeks. We have placed a referral to Cardiac Rehab for you. Thank you for allowing us to be a part of your healthcare team. If you have any questions, please reach out to our office at [phone] and follow the prompts. documented in this encounter Plan of Treatment Upcoming Encounters Date Type Department Care Team (Late st Contact Info) Description 04/20/2025 8:30 AM CDT Office Visit [facility] - Infectious Disease [address] [facility] [facility] [place] [address] Yesica Cabello PA-C [address] [place] [address] 05/01/2025 9:00 AM CDT Appointment [facility] [address] [place] [address] Garcia Gil MD [address] [place] [address] Scheduled Referrals Name Type Priority Associated Diagnoses Order Schedule AMB REFERRAL TO CARDIAC REHAB Outpatient Referral Routine S/P MVR (mitral valve replacement) 1 Occurrences starting 04/18/2025 until 04/18/2026 documented as of this encounter Visit Diagnoses Diagnosis S/P MVR (mitral valve replacement)- Primary Heart valve replaced by other means documented in this encounter Care Teams Nuclear Fuels Research Engineer Relationship Specialty Start Date End Date Carlos Ventura MD [address] [place] [address] PCP - General Internal Medicine 03/17/25 documented as of this encounter
--- OUTSIDE RECORDS SUMMARY | 2025-04-18 12:59 | XMS_ITS | Encounter Summary ---
Author Organization [facility] Address [address] [place] [address] Care Team Providers Care Prn Physical Therapist Name Role Phone Carlos Ventura MD Primary Care Provider [phone] Reason for Referral * Cardiac (Routine) - Closed Specialty Diagnoses / Procedures Referred By Contac t Referred To Contact Echosonography Diagnoses S/P MVR (mitral valve replacement) Procedures ECHO COMPLETE TN TTE W/DOPPLER, COMPLETE TN TTE W/O DOPPLER, COMPLETE Rahul Hernandez MD [address] [place] [address] Phone: tel: fax: Referral ID Status Reason Start Date Expiration Date Visits Re quested Visits Authorized [id number] Closed 04/04/2025 04/04/2026 1 1 Reason for Visit * Cardiac (Routine) - Closed Specialty Diagnoses / Procedures Referred By Contac t Referred To Contact Echosonography Diagnoses S/P MVR (mitral valve replacement) Procedures ECHO COMPLETE TN TTE W/DOPPLER, COMPLETE TN TTE W/O DOPPLER, COMPLETE Rahul Hernandez MD [address] [place] [address] Phone: tel: fax: Referral ID Status Reason Start Date Expiration Date Visits Re quested Visits Authorized [id number] Closed 04/04/2025 04/04/2026 1 1 Encounter Details Date Type Department Care Team (Late st Contact Info) Description 04/18/2025 12:59 PM CDT - 04/18/2025 11:59 PM CDT Hospital Encounter [facility] [address] [place] [address] Rahul Hernandez MD [address] [facility] [address] [place] [address] Discharge Disposition: Home or Self Care Social [...] and heating? Not hard at all 03/01/2025 [facility] - Occupational [...] any time in the past 12 m [facility], were you homeless or living in a [facility]p (including now)? 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 - Duration of therapy 6 weeks from date of MVR, 03/15/2025 - EOT 04/26/2025. - Weekly labs: CBC w/ diff, CMP, please fax results to [facility] Infectious disease clinic, fax [phone], Attbita Cabello PA-C 04/18/2025 5 aspirin (Aspirin) 81 MG chew tablet Take [...] w/ diff, CMP, please fax results to [facility] Infectious disease clinic, fax [phone], Attn Yesica Cabello PA-C 04/18/2025 5 omeprazole (PriLOSEC) 40 MG capsule Take 1 (one) capsule by mouth daily before breakfast warfarin (Coumadin) 1 MG tablet Take 1 (one) tablet by mouth every evening Take total of 7 mg daily 04/05/2025 warfarin (Coumadin) 2 MG tablet Take 6 mg daily 30 tablet 1 04/04/2025 documented as of this encounter Plan of Treatment Upcoming Encounters Date Type Department Care Team (Late st Contact Info) Description 04/20/2025 8:30 AM CDT Office Visit [facility] - Infectious Disease [address] [facility] [place] [address] Yesica Cabello PA-C [address] [place] [address] 05/01/2025 9:00 AM CDT Appointment [facility] IVR [address] [place] [address] Garcia Gil MD [address] [place] [address] documented as of this encounter Procedures Procedure Name Priority Date/Time Associated Diagnosis Comments ECHO COMPLETE W CONTRAST Routine 04/18/2025 1:50 PM CDT S/P MVR (mitral valve replacement) documented in this encounter Results * ECHO COMPLETE W CONTRAST (04/18/2025 1:50 PM CDT) AV area index 1.149 cm /m [facility] CV FUJI PACS Dimensionless Index 0.75 unitless [facility] CV [facility] PACS LA area A4C 30.6 cm [facility] PACS LA AREA (2C) 22.9 cm [facility] CV [facility] PACS LA length 4C 6.8 cm [facility] CV [facility] PACS LA length 2C 5.5 cm [facility] Myocardial strain charge 2 unitless [facility] CV [facility] PACS IVSd 2D 1.053 cm [facility] CV [facility] I PACS LVIDd 4.512 cm [facility] CV [facility] I PACS LVIDs 2.943 cm [facility] I PACS LVOT diam 1.976 cm [facility] I PACS LVPWd 1.072 cm [facility] I PACS LV biplane EF 58.196 % [facility] LV A2C EF 57.693 % [facility] I PACS LV A4C EF 55.932 % [facility] CV [facility] I PACS LV EDV A2C 130.618 ml [facility] CV FU JI PACS LV EDV A4C 125.217 ml [facility] CV FU JI PACS LV ESV A2C 55.261 ml [facility] CV FU JI PACS LV ESV A4C 55.18 ml [facility] CV FU JI PACS LVOT pk grad 5.85 mmHg [facility] LVOT pk trace 120.933 cm/s [facility] CV F U PACS LVOT VTI 21.179 cm [facility] CV [facility] I PACS LA size 4.765 cm [facility] CV [facility] I PACS AV area pk trace 2.323 cm [facility] area cont VTI 2.3 cm [facility] AV pk grad 10.202 mmHg S[facility] CV FU JI PACS AV mn grad 5.905 mmHg SSM CV FU JI PACS AV pk trace 159.706 cm/s [facility] CV [facility] I PACS AV VTI 28.247 cm [facility] CV [facility] I PACS MV A pk trace 0.694 cm/s S[facility] CV F UJI PACS MV E pk trace 195.337 cm/s SSM CV F UJI PACS MV mn grad 8.847 mmHg SSM CV FU JI PACS MV VTI 36.099 cm SSM CV FUJ I PACS PV pk trace 128.075 cm/s SSM CV FUJ I PACS TR pk trace 245.78 cm/s SSM CV FUJ I PACS Anatomical Region Laterality Modality Ultrasound 04/18/2025 1:02 PM CDT Narrative 04/18/2025 5:31 PM CDT Summary * The left ventricle is normal in size with normal systolic function and an estimated ejection fraction of 55-60% by visual estimate. Left ventricular wall motion is normal. * The left ventricular diastolic function is indeterminate. * Right ventricle is normal in size with normal systolic function. * The left atrium is severely dilated. * A 31 mm bioprosthetic mitral valve is structurally and functionally normal by two-dimensional, color flow Doppler and Doppler interrogation. * Mean gradient across the bioprosthetic mitral valve is 9 mmHg at a heart rate of 104 bpm. * There is no significant regurgitation of the bioprosthetic mitral valve. * The pulmonary artery systolic pressure is normal, 27 mmHg. Patient Info Name: Marshall Pham Age: 65 years : 1960 Gender: Male Ht: 66 in Wt: 185 lb BSA: 2.00 m2 HR: 98 bpm BP: 135 / 79 mmHg Exam Date: 04/18/2025 1:02 PM Patient Status: O/P Study Site: [facility] Primary Location: [facility] EStudy Info Technical Quality: Adequate Exam Type: ECHO COMPLETE W CONTRAST Indications Z95.2 - S/P MVR (mitral valve replacement) Procedure(s) * A complete 2D, color Doppler, spectral Doppler, and M-Mode transthoracic echocardiogram was performed. * An Ultrasound Enhancing Agent (UEA) was utilized to enhance endocardial definition, opacify the left ventricle and further assess left ventricular function and wall motion. Staff Referring Physician: Rahul Hernandez Ordering Provider: Rahul Hernandez Attending Physician: Rahul Hernandez Applications Engineering Manager: Ricardo White Left Ventricle The left ventricle is normal in size. Left ventricular systolic function is normal with an estimated ejection fraction of 55-60% by visual estimate. The left ventricular mass is normal. Left ventricular segmental wall motion is normal. The left ventricular diastolic function is indeterminate. Right Ventricle The right ventricle is normal in size. Right ventricular systolic function is normal. Left Atrium The left atrium is severely dilated. Right Atrium The right atrium is dilated. Atrial Septum Intact interatrial septum visualized by 2D and color Doppler imaging. Aortic Valve The aortic valve is trileaflet. There is no aortic valve stenosis. There is no aortic valve regurgitation. Pulmonic Valve The pulmonic valve is normal. There is no pulmonic valve stenosis. There is no pulmonic regurgitation. Mitral Valve A 31 mm bioprosthetic mitral valve is structurally and functionally normal by two-dimensional, color flow Doppler and Doppler interrogation. There is no significant regurgitation of the bioprosthetic mitral valve. Mean gradient across the bioprosthetic mitral valve is 9 mmHg at a heart rate of 104 bpm. Tricuspid Valve The tricuspid valve is normal. There is trace tricuspid valve regurgitation. The pulmonary artery systolic pressure is normal, 27 mmHg. Inferior Vena Cava The inferior vena cava is normal in size (< 2.1 cm). There is > 50% collapse of the IVC upon inspiration with an estimated right atrial pressure of 3 mmHg. Pericardium/Pleural There is no pericardial effusion. Aorta The aortic root at the sinus of Valsalva is normal in size. The ascending aorta is normal in size. Measurements Left Ventricular Outflow Tract Name Value Normal LVOT 2D LVOT Diameter 2.0 cm LVOT Area 3.1 cm2 LVOT Doppler LVOT Peak Velocity 1.2 m/s LVOT Peak Gradient 6 mmHg LVOT Mean Velocity 85.01 cm/s LVOT Mean Gradient 3 mmHg LVOT VTI 21.2 cm LVOT VTI/AV VTI Ratio 0.7 LVOT Stroke Volume 65 ml LVOT Stroke Volume Index 32 ml/m2 35-58 LVOT CO 6.3 l/min LVOT CI 3.2 l/min/m2 Pulmonic Valve Name Value Normal PV Doppler PV Peak Velocity 1.3 m/s PV Peak Gradient 5 mmHg PV Accel Time 128.03 ms Mitral Valve Name Value Normal MV Doppler MV Peak Gradient 19 mmHg MV Mean Gradient 9 mmHg MV DI (VTI) 1.70 MV PHT 60 ms MV Area (PHT) 3.67 cm2 4.00-5.00 MV Area (Cont Eq VTI) 1.80 cm2 MV Diastolic Function MV E Peak Velocity 2.0 m/sec MV A Peak Velocity 0.0 m/sec MV E/A 281.4 MV Decel Time (PW) 207 ms Tricuspid Valve Name Value Normal TV Regurgitation Doppler TR Peak Velocity 2.5 m/s TR Peak Gradient 24 mmHg Estimated PAP/RSVP RA Pressure 3 mmHg <=5 PA Systolic Pressure 27 mmHg <35 RV Systolic Pressure 27 mmHg <36 Aorta Name Value Normal Ascending Aorta Ao Root Diameter (2D) 3.5 cm Ao Root Diam Index (2D) 1.8 cm/m2 Aortic Valve Name Value Normal AV Doppler AV Peak Velocity 1.60 m/s AV Peak Gradient 10 mmHg AV Mean Gradient 6 mmHg AV VTI 28 cm AV Area (Cont Eq VTI) 2.30 cm2 >=2.00 AV Area (Cont Eq Trace) 2.32 cm2 AV DI (VTI) 0.75 AV DI (Trace) 0.76 AV Regurgitation 2D LVOT Area 3.07 cm2 Ventricles Name Value Normal LV Dimensions 2D/MM IVS Diastolic Thickness (2D) 1.1 cm 0.6-1.0 LVID Diastole (2D) 4.5 cm 4.2-5.8 LVPW Diastolic Thickness (2D) 1.1 cm 0.6-1.0 LVID Systole (2D) 2.9 cm 2.5-4.0 LV Mass (2D Cubed) 167 g 88-224 LV Mass Index (2D Cubed) 84 g/m2 49-115 Relative Wall Thickness (2D) 0.48 <=0.42 LV Fractional Shortening/Ejection Fraction 2D/MM LV Fractional Shortening (2D) 35 % 25-43 LV EF (2D Teicholz) 64 % 52-72 LV Diastolic Volume (4C MOD) 125 ml LV EF (4C MOD) 56 % LV Diastolic Volume (2C MOD) 131 ml LV EF (2C MOD) 58 % LV Diastolic Volume (BP MOD) 135 ml 62-150 LV Diastolic Volume Index (BP MOD) 68 ml/m2 34-74 LV Systolic Volume (BP MOD) 57 ml 21-61 LV Systolic Volume Index (BP MOD) 28 ml/m2 11-31 LV EF (BP MOD) 58 % 52-72 LV Diastolic Length (4C) 8.2 cm LV Systolic Length (4C) 7.5 cm LV Stroke Volume (4C MOD) 70 ml Atria Name Value Normal LA Dimensions LA Dimension (2D) 4.8 cm 3.0-4.1 LA Dimen Index (2D) 2.4 cm/m2 LA Area (4C) 31 cm2 LA Length (4C) 6.8 cm LA Area (2C) 23 cm2 LA Length (2C) 5.5 cm LA Volume (4C MOD) 107 ml LA Volume (2C MOD) 78 ml LA Volume (4C A-L) 117 ml LA Volume (2C A-L) 81 ml LA Volume (BP A-L) 108 ml LA Volume Index (BP A-L) 54 ml/m2 16-34 Report Signatures Finalized by Tyrell Michaels on 04/18/2025 05:31 PM Procedure Note Tyrell Michaels MD - 04/18/2025 Summary * The left ventricle is normal in size with normal systolic function andan estimated ejection fraction of 55-60% by visual estimate. Leftventricular wall motion is normal. * The left ventricular diastolic function is indeterminate. * Right ventricle is normal in size with normal systolic function. * The left atrium is severely dilated. * A 31 mm bioprosthetic mitral valve is structurally and functionallynormal by two-dimensional, color flow Doppler and Doppler interrogation. * Mean gradient across the bioprosthetic mitral valve is 9 mmHg at aheart rate of 104 bpm. * There is no significant regurgitation of the bioprosthetic mitralvalve. * The pulmonary artery systolic pressure is normal, 27 mmHg. Patient Info Name: Marshall Pham Age: 65 years : 1960 Gender: Male Ht: 66 in Wt: 185 lb BSA: 2.00 m2 HR: 98 bpm BP: 135 / 79 mmHg Exam Date: 04/18/2025 1:02 PM Patient Status: O/P Study Site: [facility] Primary Location: [facility] EStudy Info Technical Quality: Adequate Exam Type: ECHO COMPLETE W CONTRAST Indications Z95.2 - S/P MVR (mitral valve replacement) Procedure(s) * A complete 2D, color Doppler, spectral Doppler, and M-Modetransthoracic echocardiogram was performed. * An Ultrasound Enhancing Agent (UEA) was utilized to enhanceendocardial definition, opacify the left ventricle and further assess leftventricular function and wall motion. Staff Referring Physician: Rahul Hernandez Ordering Provider: Rahul Hernandez Attending Physician: Rahul Hernandez Applications Engineering Manager: Ricardo White Left Ventricle The left ventricle is normal in size. Left ventricular systolic functionis normal with an estimated ejection fraction of 55-60% by visual estimate.The left ventricular mass is normal. Left ventricular segmental wall motionis normal. The left ventricular diastolic function is indeterminate. Right Ventricle The right ventricle is normal in size. Right ventricular systolicfunction is normal. Left Atrium The left atrium is severely dilated. Right Atrium The right atrium is dilated. Atrial Septum Intact interatrial septum visualized by 2D and color Doppler imaging. Aortic Valve The aortic valve is trileaflet. There is no aortic valve stenosis. Thereis no aortic valve regurgitation. Pulmonic Valve The pulmonic valve is normal. There is no pulmonic valve stenosis. Thereis no pulmonic regurgitation. Mitral Valve A 31 mm bioprosthetic mitral valve is structurally and functionallynormal by two-dimensional, color flow Doppler and Doppler interrogation. There isno significant regurgitation of the bioprosthetic mitral valve. Meangradient across the bioprosthetic mitral valve is 9 mmHg at a heart rate of 104bpm. Tricuspid Valve The tricuspid valve is normal. There is trace tricuspid valveregurgitation. The pulmonary artery systolic pressure is normal, 27 mmHg. Inferior Vena Cava The inferior vena cava is normal in size (< 2.1 cm). There is > 50%collapse of the IVC upon inspiration with an estimated right atrial pressure of 3mmHg. Pericardium/Pleural There is no pericardial effusion. Aorta The aortic root at the sinus of Valsalva is normal in size. Theascending aorta is normal in size. Measurements Left Ventricular Outflow Tract Name Value Normal LVOT 2D LVOT Diameter 2.0 cm LVOT Area 3.1 cm2 LVOT Doppler LVOT Peak Velocity 1.2 m/s LVOT Peak Gradient 6 mmHg LVOT Mean Velocity 85.01 cm/s LVOT Mean Gradient 3 mmHg LVOT VTI 21.2 cm LVOT VTI/AV VTI Ratio 0.7 LVOT Stroke Volume 65 ml LVOT Stroke Volume Index 32 ml/m2 35-58 LVOT CO 6.3 l/min LVOT CI 3.2 l/min/m2 Pulmonic Valve Name Value Normal PV Doppler PV Peak Velocity 1.3 m/s PV Peak Gradient 5 mmHg PV Accel Time 128.03 ms Mitral Valve Name Value Normal MV Doppler MV Peak Gradient 19 mmHg MV Mean Gradient 9 mmHg MV DI (VTI) 1.70 MV PHT 60 ms MV Area (PHT) 3.67 cm2 4.00-5.00 MV Area (Cont Eq VTI) 1.80 cm2 MV Diastolic Function MV E Peak Velocity 2.0 m/sec MV A Peak Velocity 0.0 m/sec MV E/A 281.4 MV Decel Time (PW) 207 ms Tricuspid Valve Name Value Normal TV Regurgitation Doppler TR Peak Velocity 2.5 m/s TR Peak Gradient 24 mmHg Estimated PAP/RSVP RA Pressure 3 mmHg <=5 PA Systolic Pressure 27 mmHg <35 RV Systolic Pressure 27 mmHg <36 Aorta Name Value Normal Ascending Aorta Ao Root Diameter (2D) 3.5 cm Ao Root Diam Index (2D) 1.8 cm/m2 Aortic Valve Name Value Normal AV Doppler AV Peak Velocity 1.60 m/s AV Peak Gradient 10 mmHg AV Mean Gradient 6 mmHg AV VTI 28 cm AV Area (Cont Eq VTI) 2.30 cm2 >=2.00 AV Area (Cont Eq Trace) 2.32 cm2 AV DI (VTI) 0.75 AV DI (Trace) 0.76 AV Regurgitation 2D LVOT Area 3.07 cm2 Ventricles Name Value Normal LV Dimensions 2D/MM IVS Diastolic Thickness (2D) 1.1 cm 0.6-1.0 LVID Diastole (2D) 4.5 cm 4.2-5.8 LVPW Diastolic Thickness (2D) 1.1 cm 0.6-1.0 LVID Systole (2D) 2.9 cm 2.5-4.0 LV Mass (2D Cubed) 167 g 88-224 LV Mass Index (2D Cubed) 84 g/m2 49-115 Relative Wall Thickness (2D) 0.48 <=0.42 LV Fractional Shortening/Ejection Fraction 2D/MM LV Fractional Shortening (2D) 35 % 25-43 LV EF (2D Teicholz) 64 % 52-72 LV Diastolic Volume (4C MOD) 125 ml LV EF (4C MOD) 56 % LV Diastolic Volume (2C MOD) 131 ml LV EF (2C MOD) 58 % LV Diastolic Volume (BP MOD) 135 ml 62-150 LV Diastolic Volume Index (BP MOD) 68 ml/m2 34-74 LV Systolic Volume (BP MOD) 57 ml 21-61 LV Systolic Volume Index (BP MOD) 28 ml/m2 11-31 LV EF (BP MOD) 58 % 52-72 LV Diastolic Length (4C) 8.2 cm LV Systolic Length (4C) 7.5 cm LV Stroke Volume (4C MOD) 70 ml Atria Name Value Normal LA Dimensions LA Dimension (2D) 4.8 cm 3.0-4.1 LA Dimen Index (2D) 2.4 cm/m2 LA Area (4C) 31 cm2 LA Length (4C) 6.8 cm LA Area (2C) 23 cm2 LA Length (2C) 5.5 cm LA Volume (4C MOD) 107 ml LA Volume (2C MOD) 78 ml LA Volume (4C A-L) 117 ml LA Volume (2C A-L) 81 ml LA Volume (BP A-L) 108 ml LA Volume Index (BP A-L) 54 ml/m2 1634 Report Signatures Finalized by Tyrell Michaels on 04/18/2025 05:31 PM us Rahul Hernandez MD ECHO CUPID Fin al Result documented in this encounter Visit Diagnoses Diagnosis S/P MVR (mitral valve replacement) Heart valve replaced by other means documented in this encounter Administered Medications Inactive Administered Medications - up to 3 most recent administrations Medication Order MAR Action Action Date Dose Rate Site perflutren (Definity) injection ADS Med 1 dose, Starting on Thu04/18/25 at 1316, Until Thu04/18/25 at 1319, Created by cabinet override Shake well before using. $ Given 04/18/2025 1:19 PM CDT 0.65 mL documented in this encounter Care Teams Prn Physical Therapist Relationship Specialty Start Date End Date Carlos Ventura MD [address] [place] [address] PCP - General Internal Medicine 03/17/25 documented as of this encounter
--- OUTSIDE RECORDS SUMMARY | 2025-04-19 13:32 | XMS_ITS | Clinical Summary ---
Author Organization [facility] Address [address] [place] [address] Care Team Providers Care Firearms Instructor Name Role Phone Carlos Ventura MD Primary Care Provider [phone] Source Comments [facility],non-owned Affiliates and Associated Physician Practices is amultiple site organization consisting of ambulatory clinics and hospital sitesin [place], [place], [place] and [place]. This disclosure is being madepursuant to the Care Everywhere program and may not contain all information available regarding this patient. Last updated 18.[facility] Allergies No known active allergies Medications * Be aware that medications may not be up to date on this document. Alwaysverify current medications with the patient. omeprazole (PriLOSEC) 40 MG capsule Take 1 (one) capsule by mouth daily before breakfast Active aspirin (Aspirin) 81 MG chew tablet Take 1 (one) tablet by mouth once daily (chew and swallow) 30 tablet 03/23/20 25 11:32 AM CDT 025 Active warfarin (Coumadin) 2 MG tablet Take 6 mg daily 30 tablet 1 025 Active warfarin (Coumadin) 1 MG tablet Take 1 (one) tablet by mouth every evening Take total of 7 mg daily 025 Active cefTRIAXone 2 g in NaCl IV 0.9 % 50 mL - IV ceftriaxone 2g every 12 hours - Duration of therapy 6 weeks from date of MVR, 03/15/2025 - EOT 04/26/2025. - Weekly labs: CBC w/ diff, CMP, please fax results to [facility] Infectious disease clinic, fax [phone], Marques Cabello PA-C 025 2024 Active ampicillin 2 g in NaCl IV 0.9 % 100 mL - IV ampicillin 2g every 8 hours (renally dosed), consider continuous infusion outpatient to help with easier administration. - Duration of therapy 6 weeks from date of MVR, 03/15/2025 - EOT 04/26/2025. - Weekly labs: CBC w/ diff, CMP, please fax results to [facility] Infectious disease clinic, fax [phone], Attbita Cabello PA-C 025 2024 Active amLODIPine (Norvasc) 5 MG tablet Take 1 (one) tablet by mouth once daily 2024 Discontinued(C linical Decision) metoprolol succinate XL 24hr (Toprol XL) 25 MG tablet Take 1 (one) tablet by mouth once daily 2024 Discontinued(C linical Decision) montelukast (Singulair) 10 MG tablet Take 1 (one) tablet by mouth at bedtime 2024 Discontinued(C linical Decision) cefTRIAXone 2 g in NaCl IV 0.9 % 50 mL - IV ceftriaxone 2g every 12 hours - Duration of therapy 6 weeks from date of MVR, 03/15/2025 - EOT 04/26/2025. - Weekly labs: CBC w/ diff, CMP, please fax results to [facility] Infectious disease clinic, fax [phone], Marques Cabello PA-C 025 2024 Discontinued(L ist Clean-Up) ampicillin 2 g in NaCl IV 0.9 % 100 mL - IV ampicillin 2g every 8 hours (renally dosed), consider continuous infusion outpatient to help with easier administration. - Duration of therapy 6 weeks from date of MVR, 03/15/2025 - EOT 04/26/2025. - Weekly labs: CBC w/ diff, CMP, please fax results to [facility] Infectious disease clinic, fax [phone], Marques Cabello PA-C 025 2024 Discontinued(L ist Clean-Up) warfarin (Coumadin) 2 MG tablet To start, take 2 tablets (4 mg) by mouth once daily. Dose will be adjusted initially by Dr. Hernandez's office according to your INR results. Starting 04/05/25, the Anticoagulation Clinic at [facility] will be dosing your warfarin 60 tablet 03/23/20 11:32 AM CDT 025 2024 Discontinued furosemide (Lasix) 20 MG tablet [...] Take 4 mg // and 6 mg ///2024 Discontinued Active Problems Problem Noted Date Diagnosed [...] & Plan (03/15/2025 2:06 PM CDT): - ISNTIA came back for large vegetation on mitral [...] valve with severe mitral regurgitation. Per SINTIA, [facility] recommends multi team consult for approved recs [...] valve with severe mitral regurgitation. Per SINTIA, [facility] recommends multi team consult for approved recs [...] Encounters Date Type Department Care Team Description 04/18/2025 12:59 PM CDT - 04/18/2025 11:59 PM CDT Hospital Encounter [facility] Heart & Vascular Care [address] [place] [address] Rahul Hernandez MD Discharge Disposition: Home or Self Care 04/18/2025 10:15 AM CDT Office Visit [facility] - Cardiothoracic Surgery [address] [place] [phone] Ofelia Mckee, Rahul Myers MD S/P MVR (mitral valve replacement) (Primary Dx) 04/18/2025 Travel 04/17/2025 Orders Only [facility] - Cardiothoracic Surgery [address] [place] [phone] Alma Rosa Rodriguez RN S/P MVR (mitral valve replacement) ; Current use of anticoagulant therapy 04/04/2025 10:30 AM CDT Office Visit [facility] - Cardiothoracic Surgery [address] [place] [phone] Ofelia Mckee, Rahul Myers MD S/P MVR (mitral valve replacement) (Primary Dx) 04/04/2025 9:42 AM CDT - 04/04/2025 11:59 PM CDT Hospital Encounter [facility] DIAGNOSTIC RAD OP [address] [place] [address] Ofelia Mckee, BASEBALL INSPECTOR-SALVAGE CLERK Discharge Disposition: Home or Self Care 04/04/2025 Travel 03/27/2025 Orders Only [facility] - Cardiothoracic Surgery [address] [place] [address] Alma Rosa Rodriguez RN 03/24/2025 Telephone [facility] - Infectious Disease [address] [place] [address] Yesica Cabello PA-C Appointment 03/15/2025 11:24 AM CDT Anesthesia Event [facility] [address] [place] [address] Alexa Page MD Polhemus, Kyle, MD 03/15/2025 8:55 AM CDT - 03/15/2025 2:40 PM CDT Surgery [facility] [address] [place] [address] Rahul Hernandez MD Mitral valve replacement 03/15/2025 6:25 AM CDT Ancillary Procedure [facility] [address] [place] [address] Cornelia Serra MD Heis, Farah, MD 03/10/2025 8:54 AM CDT - 03/10/2025 10:10 AM CDT Surgery [facility] - Cardiac Brick Dropper [address] [place] [address] Selene Duran MD Left Heart Cath 03/09/2025 6:03 PM CDT Anesthesia Event [facility] [address] [place] [address] Prakash De La Torre, Carlitos Flores, DIANDRA 03/09/2025 5:45 PM CDT - 03/09/2025 7:28 PM CDT Surgery [facility] [address] [place] [address] Sedic, Vedrana, DMD EXTRACTION DENTAL (MULTIPLE) 2025 9:22 AM CDT - 2025 11:59 PM CDT Hospital Encounter [facility] - Cardiac B[facility] Dro[facility] [address] [place] [address] Pramod Torres DO Heis, Farah, MD Discharge Disposition: Home or Self Care 03/01/2025 9:44 PM CDT - 03/23/2025 3:36 PM CDT Hospital Encounter [facility] 8N ACUTE [address] [place] [address] Shira Harris MD Mayer, Joshua C, DO Wheeler, Joseph R, MD [facility] David Melara, Rahul Santillan MD Cardiothoracic Surgery Discharge Disposition: Home Health Care [facility] 03/01/2025 Travel 03/01/2025 Telephone [facility] PHYS INTERNAL MED [address] [place] [phone] Shira Harris MD General (OSH transfer) 03/01/2025 Telephone [facility] INTERNAL MED [facility] [place] [address] Freddy Velazquez MD Hospital Admission from Last [...] and heating? Not hard at all 03/01/2025 [facility] [place] of Occupat ional Health - Occupational Stress [...] time in the past 12 m [facility], were you homeless or living in a senior living (including now)? 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 Gender Identity Not on file Sexual Orientation Not on file Last Filed Vital Signs Vital Sign Reading Time Taken Comments Blood Pressure 134/87 04/18/2025 9:55 AM CDT Pulse 101 04/18/2025 9:55 AM CDT Temperature 36.7 C (98 F) 04/18/2025 9:55 AM CDT Respiratory Rate 20 03/23/2025 11:2 6 AM CDT Oxygen Saturation 95% 04/18/2025 9:55 AM CDT Inhaled Oxygen Concentration 40% 03/15/2025 9 :00 PM CDT Weight 86.5 kg (190 lb 12.8 oz) 04/18/2025 9:55 AM CDT Height 167.6 cm (5' 6) 04/18/2025 9:55 AM CDT Body Mass Index 30.8 04/18/2025 9:55 AM CDT Plan of Treatment Upcoming Encounters Date Type Department Care Team (Late st Contact Info) Description 04/20/2025 8:30 AM CDT Office Visit [facility] - [facility]ious Disease [address] [facility] [place] [phone] Yesica Cabello PA-C [address] [place] [address] 05/01/2025 9:00 AM CDT Appointment [facility] IVR [address] [place] [phone] Garcia Gil MD [address] [place] [address] Health Maintenance Due Date Last Done Comments [...] DEPRESSION SCREENING 07/20/2024 COVID-19 VACCINE (1 - 2023- season) 2025 INFLUENZA VACCINE (#1) [...] this topic Medical Devices Implanted Type Area Recruit Instructor Device Identifier Shelf Expiration Date Model / Serial / Lot Ndl Sut 3 Blnt Cut Cbl Strl Spnl Implanted:Qty: 1 on 03/15/2025 by Rahul Hernandez MD at [facility] N/A: Sternum [employer] 08/17/2029 [id number] / / [id number] Plate 6 Hl O Cncv Bone Lf Nonster Implanted:Qty: 1 on 03/15/2025 by Rahul Hernandez MD at [facility] N/A: Sternum [employer] 115.604.06 / / Screw 14mm Lck Nonster Bone Lf Implanted:Qty: 6 on 03/15/2025 by Rahul Hernandez MD at [facility] N/A: Sternum [employer] 100.035.14 / / Screw 16mm Lck Nonster Bone Lf Implanted:Qty: 6 on 03/15/2025 by Rahul Hernandez MD at [facility] N/A: Sternum [employer] 100.035.16 / / Screw 18mm Lck Nonster Bone Lf Implanted:Qty: 6 on 03/15/2025 by Rahul Hernandez MD at [facility] N/A: Sternum [employer] 100.035.18 / / Valve Mtrl 31mm Resilia - [id number] Implanted:Qty: 1 on 03/15/2025 by Rahul Hernandez MD at [facility] N/A: Mitral Valve [employer] 10/12/2029 [id number] / [id number] / Ndl Sut 3 Blnt Cut Cbl Strl Spnl Implanted:Qty: 1 on 03/15/2025 by Rahul Hernandez MD at [facility] N/A: Sternum [employer] [id number] / / Plate Bone H 6 Hl Nonster Lf Implanted:Qty: 2 on 03/15/2025 by Rahul Hernandez MD at [facility] N/A: Sternum [employer] 115.102.06 / / Explanted Type Area Recruit Instructor Device Identifier Shelf Expiration Date Model / Serial / Lot Plate Bone H 6 Hl Nonster Lf Explanted:Qty: 2 on 03/15/2025 by Rahul Hernandez MD at [facility] N/A: Mitral Valve [employer] 115.102.06 / / Description:no cost implant per rep; doc pay once program Plate 6 Hl O Cncv Bone Lf Nonster Explanted:Qty: 1 on 03/15/2025 by Rahul Hernandez MD at [facility] N/A: Mitral Valve [employer] 115.604.06 / / Description:no cost implant per rep; doc pay once program Screw 14mm Lck Nonster Bone Lf Explanted:Qty: 6 on 03/15/2025 by Rahul Hernandez MD at [facility] N/A: Mitral Valve [employer] 100.035.14 / / Description:no cost implant per rep; doc pay once program Screw 16mm Lck Nonster Bone Lf Explanted:Qty: 6 on 03/15/2025 by Rahul Hernandez MD at [facility] N/A: Mitral Valve [employer] 100.035.16 / / Description:no cost implant per rep; doc pay once program Screw 18mm Lck Nonster Bone Lf Explanted:Qty: 6 on 03/15/2025 by Rahul Hernandez MD at [facility] N/A: Mitral Valve [employer] 100.035.18 / / Description:no cost implant per rep; doc pay once program Procedures Procedure Name Priority Date/Time Associated Diagnosis Comments ECHO COMPLETE W CONTRAST Routine 04/18/2025 1:50 PM CDT S/P MVR (mitral valve replacement) XR CHEST 2VW Routine 04/04/2025 9:46 AM [...] GFR less than 15 ml/min ([facility]) XR CHEST 1VW PORTABLE Routine 03/22/2025 4:27 [...] 2:42 PM CDT ACT PLUS - POCT ([facility]) Routine 03/15/2025 2:39 PM CDT FIBRINOGEN ACTIVITY STAT 03/15/2025 2 :34 PM CDT Mitral valve vegetation (HCC) PLATELET COUNT AUTO CITRATED BLOOD STAT 03/15/2025 2:33 PM CDT Mitral valve vegetation (HCC) ACT PLUS - POCT ([facility]) Routine 03/15/2025 2:07 PM CDT BLOOD GAS+COOX+LYTES+METAB ARTERIAL POCT Routine 03/15/2025 2:06 PM CDT PATHOLOGY TISSUE Routine 03/15/2025 1:53 PM CDT Mitral valve insufficiency, unspecified etiology BLOOD GAS+COOX+LYTES+METAB ARTERIAL POCT Routine 03/15/2025 1:30 PM CDT ACT PLUS - POCT ([facility]) Routine 03/15/2025 1:29 PM CDT BLOOD GAS+COOX+LYTES+METAB ARTERIAL POCT Routine 03/15/2025 1:15 PM CDT ACT PLUS - POCT ([facility]) Routine 03/15/2025 1:14 PM CDT ACT PLUS - POCT ([facility]) Routine 03/15/2025 1:04 PM CDT ACT PLUS - POCT ([facility]) Routine 03/15/2025 12:53 PM CDT BLOOD GAS+COOX+LYTES+METAB ARTERIAL POCT Routine 03/15/2025 12:52 PM CDT ACT PLUS - POCT ([facility]) Routine 03/15/2025 12:44 PM CDT BLOOD GAS+COOX+LYTES+METAB ARTERIAL POCT Routine 03/15/2025 12:33 PM CDT PULMONARY ARTERY CATHETER NOTE Routine 03/15/2025 12:19 PM CDT PULMONARY ARTERY CATHETER NOTE Routine 03/15/2025 12:19 PM CDT CENTRAL LINE NOTE Routine 03/15/2025 12:19 PM CDT ENDOTRACHEAL TUBE NOTE Routine 03/15/2025 12:18 PM CDT ARTERIAL LINE NOTE Routine 03/15/2025 12:18 PM CDT [place] REPLACEMENT OF MITRAL VALVE 03/15/2025 11:04 AM [...] TUBE NOTE Routine 03/09/2025 6:28 PM CDT [place] DENTAL SURGERY PROCEDURE 03/09/2025 5:37 PM CDT Infection Case Notes DOCTOR SEDIC WILL BE TO [facility] AND AVAILABLE TO OPERATE AT 1600. US RETROPERITONEAL COMPLETE Routine 03/09/2025 10:35 AM CDT CKD (chronic kidney disease) stage 5, GFR less than 15 ml/min ([facility]) CBC W AUTO DIFFERENTIAL AM Draw 03/09/2025 [...] CDT from Last 3 Months Results * ECHO COMPLETE W CONTRAST (04/18/2025 1:50 PM CDT) Only the most recent of3 resultswithin the time period is included. AV area index 1.149 cm /m SSM CV FUJI PACS Dimensionless Index 0.75 unitless SSM CV FUJI PACS LA area A4C 30.6 cm SSM CV FUJI PACS LA AREA (2C) 22.9 cm SSM CV FUJI PACS LA length 4C 6.8 cm SSM CV FUJI PACS LA length 2C 5.5 cm SSM CV FUJI PACS Myocardial strain charge 2 unitless SSM CV FUJI PACS IVSd 2D 1.053 cm SSM CV FUJ I PACS LVIDd 4.512 cm SSM CV FUJ I PACS LVIDs 2.943 cm SSM CV FUJ I PACS LVOT diam 1.976 cm SSM CV FUJ I PACS LVPWd 1.072 cm SSM CV FUJ I PACS LV biplane EF 58.196 % SSM CV FUJI PACS LV A2C EF 57.693 % SSM CV FUJ I PACS LV A4C EF 55.932 % SSM CV FUJ I PACS LV EDV A2C 130.618 ml SSM CV FU JI PACS LV EDV A4C 125.217 ml SSM CV FU JI PACS LV ESV A2C 55.261 ml SSM CV FU JI PACS LV ESV A4C 55.18 ml SSM CV FU JI PACS LVOT pk grad 5.85 mmHg SSM CV FUJI PACS LVOT pk trace 120.933 cm/s SSM CV F UJI PACS LVOT VTI 21.179 cm SSM CV FUJ I PACS LA size 4.765 cm SSM CV FUJ I PACS AV area pk trace 2.323 cm SSM CV FUJI PACS AV area cont VTI 2.3 cm SSM CV FUJI PACS AV pk grad 10.202 mmHg SSM CV FU JI PACS AV mn grad 5.905 mmHg SSM CV FU JI PACS AV pk trace 159.706 cm/s SSM CV FUJ I PACS AV VTI 28.247 cm SSM CV FUJ I PACS MV A pk trace 0.694 [...] normal, 27 mmHg. Patient Info Name: Marshall Mercer Age: 65 years : 1960 Gender: Male Ht: 66 in Wt: 185 lb BSA: 2.00 m2 HR: 98 bpm BP: 135 / 79 mmHg Exam Date: 04/18/2025 1:02 PM Patient Status: O/P Study Site: [facility] Primary Location: [facility] EStud Info Technical Quality: Adequate Exam Type: ECHO [...] Provider: Rahul Hernandez Attending Physician: Rahul Hernandez Milk Drying Machine Operator: Ricardo White Left Ventricle The left ventricle [...] normal, 27 mmHg. Patient Info Name: Marshall Mercer Age: 65 years : 1960 Gender: Male Ht: 66 in Wt: 185 lb BSA: 2.00 m2 HR: 98 bpm BP: 135 / 79 mmHg Exam Date: 04/18/2025 1:02 PM Patient Status: O/P Study Site: [facility] Primary Location: [facility] EStudy Info Technical Quality: Adequate Exam [...] Provider: Rahul Hernandez Attending Physician: Rahul Hernandez Milk Drying Machine Operator: Ricardo White Left Ventricle The left ventricle [...] Hernandez MD ECHO CUPID Fin al Result * XR Chest 2Vw (04/04/2025 9:46 AM [...] MD on 04/05/2025 12:33 AM Ofelia Mckee BASEBALL INSPECTOR-SALVAGE CLERK DIAGNOSTIC IMAGING OR DERABLES Final Result * APHERESIS/TRANSFUSION ORDER (03/24/2025 12:11 PM CDT) Narrative 03/24/2025 12:11 PM CDT Ordered by an unspecified provider. Scanned Document NURSING - VITAL SIGNS AND ASSES SMENT Final Result * (ABNORMAL) CALCIUM IONIZED WHOLE BLOOD (03/23/2025 12:54 AM CDT) Only the most recent of10 resultswithin the time period is included. Calcium Ionized 1.16 mmol/L 03/23/2025 1:17 AM CDT [facility] pH 7.41 7.35 - 7.45 pH 03/23/2025 1:17 AM CDT [facility] Ionized Calcium pH Adjusted 1.16(L) 1.19 - 1.34 mmol/L 03/23/2025 1:17 AM CDT [facility] Blood BLOOD SPECIMEN / Unknown Lab Venipuncture / Unknown 03/23/2025 12:54 AM CDT 03/23/2025 1:12 AM CDT Mariya Botello PA-C LAB - CHEMISTRY ORDERABLES F inal Result [facility] [address] [address], [facility] [phone] * (ABNORMAL) PT-INR (03/23/2025 12:54 AM CDT) Only the most recent of8 resultswithin the time period is included. PT 15.9(H) 12.1 - 14.8 Seconds 03/23/2025 1:37 AM [facility] INR 1.3 See Comment 03/23/2025 1:37 AM [facility] Comment:The suggested therap eutic range for standard coumadin (warfarin) therapy is an INR of 2.0-3.0. For high-risk patients (Mechanical Mitral Valve Prosthesis, etc.), the suggested prophylactic therapeutic range is an INR of 2.5-3.5. Blood BLOOD SPECIMEN / Unknown Lab Venipuncture / Unknown 03/23/2025 12:54 AM CDT 03/23/2025 1:16 AM CDT us Rahul Hernandez MD LAB - COAGULATION O RDERABLES Final Result [facility] [address] [place] [address], [facility] [phone] * (ABNORMAL) COMPREHENSIVE METABOLIC PANEL (03/23/2025 12:54 AM T) Only the most recent of22 resultswithin the time period is included. BUN 61(H) 7 - 26 mg/dL 03/23/2025 1:42 AM [facility] Creatinine 2.95(H) 0.71 - 1.16 mg/dL 03/23/2025 1:42 AM [facility] Sodium 135(L) 136 - 145 mmol/L 03/23/2025 1:42 AM [facility] Potassium 4.6(H) 3.5 - 4.5 mmol/L 03/23/2025 1:42 AM [facility] Chloride 102 98 - 107 mmol/L 03/23/2025 1:42 AM [facility] CO2 24 22 - 29 mmol/L 03/23/2025 1:42 AM [facility] Glucose 101(H) 70 - 99 mg/dL 03/23/2025 1:42 AM [facility] Calcium 9.0 8.4 - 10.2 mg/dL 03/23/2025 1:42 AM [facility] Protein Total 7.1 6.0 - 8.3 g/dL 03/23/2025 1:42 AM [facility] Albumin 3.2(L) 3.4 - 5.0 g/dL 03/23/2025 1:42 AM [facility] Bilirubin Total 0.2 0.2 - 1.2 mg/dL 03/23/2025 1:42 AM [facility] Alkaline Phosphatase 168(H) 40 - 150 U/L 03/23/2025 1:42 AM [facility] ALT 67(H) 5 - 55 U/L 03/23/2025 1:42 AM [facility] AST 43(H) 5 - 34 U/L 03/23/2025 1:42 AM [facility] Anion Gap 9 6 - 16 03/23/2025 1:42 AM [facility] BUN/Creatinine Ratio 21 7 - 23 03/23/2025 1:42 AM [facility] Osmolality Calculated 297(H) 275 - 295 mOsm/kg 03/23/2025 1:42 AM [facility] Albumin/Globulin Ratio 0.8(L) 1.1 - 2.3 03/23/2025 1:42 AM [facility] eGFR by CKD-EPI 23(L) >=90 mL/min/1.7 3 m2 03/23/2025 1:42 AM [facility] Comment:Estimated Glomerular Filtration Rate (eGFR) calculated using the CKD-EPI Creatinine Equation (2020), per the National Kidney Foundation and [place] [employer]ph[employer] recommendations. Blood BLOOD SPECIMEN / Unknown Lab Venipuncture / Unknown 03/23/2025 12:54 AM CDT 03/23/2025 1:16 AM T us Rahul Hernandez MD LAB - CHEMISTRY ORD ERABLES Final Result [facility] [address] [place] [address], [facility] [phone] * PHOSPHORUS BLOOD (03/23/2025 12:54 AM CDT) Only the most recent of23 resultswithin the time period is included. Phosphorus 3.7 2.8 - 5.1 mg/dL 03/23/2025 1:42 AM CDT [facility] Blood BLOOD SPECIMEN / Unknown Lab Venipuncture / Unknown 03/23/2025 12:54 AM CDT 03/23/2025 1:16 AM CDT Mariya Ayan GARRETT- LAB - CHEMISTRY ORDERABLES F inal Result Performing Organization Address [facility] Co de Phone Number [address] [address], [facility] [phone] * MAGNESIUM BLOOD (03/23/2025 12:54 AM CDT) Only the most recent of23 resultswithin the time period is included. Pathologist [facility] Magnesium 2.0 1.6 - 2.6 mg/dL 03/23/2025 1:42 AM CDT [facility] Blood BLOOD SPECIMEN / Unknown Lab Venipuncture / Unknown 03/23/2025 12:54 AM CDT 03/23/2025 1:16 AM CDT Mariyayessi Botello PA-C LAB - CHEMISTRY ORDERABLES F inal Result Performing Organization Address [facility] de Phone Number [address] [address], [facility] [phone] * (ABNORMAL) CBC W/O DIFFERENTIAL (03/23/2025 12:53 AM CDT) Only the most recent of13 resultswithin the time period is included. WBC 12.0(H) 4.0 - 10.7 x10E9/L 03/23/2025 1:22 AM CDT [facility] RBC Count 3.22(L) 4.30 - 5.80 x10E12/L 03/23/2025 1:22 AM CDT [facility] Hemoglobin 9.1(L) 13.3 - 17.5 g/dL 03/23/2025 1:22 AM CDT [facility] Hematocrit 29.0(L) 38.7 - 51.1 % 03/23/2025 1:22 AM CDT [facility] MCV 90.1 80.0 - 98.0 fL 03/23/2025 1:22 AM T [facility] MCH 28.3 26.7 - 33.6 pg 03/23/2025 1:22 AM T [facility] MCHC 31.4(L) 31.7 - 36.3 g/dL 03/23/2025 1:22 AM T [facility] RDW-CV 19.8(H) 11.3 - 14.8 % 03/23/2025 1:22 AM T [facility] Platelet Count 334 150 - 420 x10E9/L 03/23/2025 1:22 AM [facility] MPV 10.2 7.8 - 11.4 fL 03/23/2025 1:22 AM [facility] Blood BLOOD SPECIMEN / Unknown Lab Venipuncture / Unknown 03/23/2025 12:53 AM CDT 03/23/2025 1:15 AM CDT Mariay Botello PA-C LAB - HEMATOLOGY ORDERABLES Final Result [facility] [address] [place] [phone], [facility] [phone] * IR Central Line Insert Tunnel (03/22/2025 [...] GFR less than 15 ml/min ([facility]) Additional History: Director Public: Garcia Gil MD COMPARISON: None. FLUOROSCOPY DOSE: [...] evaluation, please review the evaluation forms in [facility]. For details on monitored clinical parameters during the intra-service sedation time, please review the procedure nurse documentation in [facility]. I was present for the Entire procedure. Procedure Note Limbu, Posan, MD - 03/22/2025 PROCEDURE: IR CENTRAL LINE INSERT TUNNEL DATE/TIME OF EXAM: 03/22/2025 12:53 PM CLINICAL INFORMATION: None relevant/not provided if blank. Indication: R09.89: Endocarditis, suspected N18.5: CKD (chronic kidney disease) stage 5, GFR less than 15 ml/min(HCC) Additional History: Director Public: Garcia Gil MD COMPARISON: None. FLUOROSCOPY DOSE: [...] response to care. Intra-service sedation start time [id number] and end time was 1228 during which I was present. Total physician intra-service sedation time was 14 minutes. For details on pre-moderate sedation and post-moderate sedation patient evaluation, please reviewthe evaluation forms in [facility]. For details on monitored clinical parameters during the intra-service sedation time, please review the procedurenurse documentation in [facility]. I was present for the [...] DATE/TIME OF EXAM: 03/22/2025 4:27 AM, LOCATION [facility] INDICATION: I34.0: Mitral valve insufficiency, unspecified [...] Report dictated by Jamie Rucker MD, (resident associate). > Dictated by Quill Collector Jamie Cason MD have personally reviewed and interpreted this examination/study. > Interpreting Provider: Jamie Barriga MD on 03/22/2025 7:08 PM Procedure Note Jamie Barriga MD - 03/22/2025 PROCEDURE: XR CHEST 1VW PORTABLE, DATE/TIME OF EXAM: 03/22/2025 4:27 AM, LOCATION [facility] INDICATION: I34.0: Mitral valve insufficiency, unspecified [...] Report dictated by Jamie Rucker MD, (resident associate). > Dictated by Quill Collector I, Jamie Barriga MD have personally reviewed and interpreted this examination/study. > Interpreting Provider: Jamie Barriga MD on 03/22/2025 7:08 PM Buffy Jang BASEBALL INSPECTOR-SALVAGE CLERK DIAGNOSTIC IMAGI NG ORDERABLES Final Result * EKG 12-Lead (03/20/2025 12:00 PM CDT) Only the most recent of7 resultswithin the time period is included. Ventricular Rate 125 BPM [facility]USE Atrial Rate 125 BPM [facility] QRS Duration ms 90 ms [facility] MUSE Q-T Interval ms 336 ms [facility] MUSE QTC Calculation (Bezet) 484 ms [facility] MUSE Calculated P [place] 55 degrees [facility] MUSE Calculated R [place] 69 degrees [facility] MUSE Calculated T [place] 55 degrees [facility] MUSE Interpretation EKG SINUS TACHYCARDIA NONSPECIFIC ST ABNORMALITY ABNORMAL ECG WHEN COMPARED WITH ECG OF 20-MAR-2025 11:59, SINUS TACHYCARDIA HAS REPLACED JUNCTIONAL RHYTHM Confirmed by PRASAD LOUIS MD ([id number]) on 03/26/2025 10:12:19 PM [facility] MUSE 03/20/2025 12:0 0 PM CDT 03/26/2025 10:12 PM CDT us Yousuf Chaudhari PA-C ECG ORDERABLES Edited Resu lt - Final [facility] MUSE * (ABNORMAL) BASIC METABOLIC PANEL (CALCIUM TOTAL) (03/19/2025 8:44 PM CDT) Only the most recent of3 resultswithin the time period is included. BUN 54(H) 7 - 26 mg/dL 03/19/2025 9:27 PM [facility] Creatinine 2.92(H) 0.71 - 1.16 mg/dL 03/19/2025 9:27 PM [facility] Sodium 134(L) 136 - 145 mmol/L 03/19/2025 9:27 PM [facility] Potassium 3.7 3.5 - 4.5 mmol/L 03/19/2025 9:27 PM [facility] Chloride 101 98 - 107 mmol/L 03/19/2025 9:27 PM [facility] CO2 22 22 - 29 mmol/L 03/19/2025 9:27 PM [facility] Glucose 122(H) 70 - 99 mg/dL 03/19/2025 9:27 PM [facility] Calcium 8.7 8.4 - 10.2 mg/dL 03/19/2025 9:27 PM [facility] Anion Gap 11 6 - 16 03/19/2025 9:27 PM [facility] BUN/Creatinine Ratio 18 7 - 23 03/19/2025 9:27 PM [facility] Osmolality Calculated 294 275 - 295 mOsm/kg 03/19/2025 9:27 PM [facility] eGFR by CKD-EPI 23(L) >=90 mL/min/1.7 3 m2 03/19/2025 9:27 PM [facility] Comment:Estimated Glomerular Filtration Rate (eGFR) calculated using the CKD-EPI Creatinine Equation (2020), per the National Kidney Foundation and [place] Society [employer] Neph[employer] recommendations. Blood BLOOD SPECIMEN / Unknown Venipuncture / Unknown 03/19/2025 8:44 PM CDT 03/19/2025 8:58 PM CDT Nayan Hernandez BASEBALL INSPECTOR-SALVAGE CLERK LAB - CHEMISTRY ORD ERABLES Final Result Performing Organization Address City/[facility]/ZIP Co de Phone Number [address] [address], [facility] [phone] * GLUCOSE - POINT OF CARE (03/19/2025 8:22 AM CDT) Only the most recent of23 resultswithin the time period is included. Pathologist [facility] Glucose WB/POC 89 70 - 99 mg/dL 03/19/2025 8:27 AM CDT [facility] Specimen Type Arterial/C apillary 03/19/2025 8:27 AM T [facility] Blood BLOOD SPECIMEN / Unknown 03/19/2025 8:22 AM CDT 03/19/2025 8:27 AM CDT Rahul Hernandez MD LAB - POINT OF CARE ORDERABLES Final Result Performing Organization Address [facility]/ZIP Co de Phone Number [address] [address], [facility] [phone] * (ABNORMAL) HEPATIC FUNCTION PANEL (03/19/2025 4:28 AM CDT) [facility] Protein Total 6.2 6.0 - 8.3 g/dL 025 7:34 AM [facility] Albumin 3.1(L) 3.4 - 5.0 g/dL 03/19/2025 7:34 AM [facility] Bilirubin Total 0.4 0.2 - 1.2 mg/dL 02/19 7:34 AM [facility] Bilirubin Conjugated 0.2 0.1 - 0.5 mg/dL 03/19/2025 7:34 AM [facility] Bilirubin Unconjugated 0.2 Unconjugated Bilirubin is a calculated value: Reference ranges have not been established. mg/dL 03/19/2025 7:34 AM [facility] Alkaline Phosphatase 198(H) 40 - 150 U/L 03/19/2025 7:34 AM CDT [facility] ALT 166(H) 5 - 55 U/L 03/19/2025 7:34 AM CDT [facility] AST 173(H) 5 - 34 U/L 03/19/2025 7:34 AM CDT [facility] Albumin/Globulin Ratio 1.0(L) 1.1 - 2.3 03/19/2025 7:34 AM CDT [facility] Blood BLOOD SPECIMEN / Unknown Venipuncture / Unknown 03/19/2025 4:28 AM CDT 03/19/2025 4:38 AM CDT us Jennyfer Dallas DO LAB - CHEMISTRY ORDERABLES Final Result Performing Organization Address City/[facility]/ZIP Co de Phone Number [facility] [address] [place] [address], [place] [phone] * TRANSFUSE RED BLOOD CELL LEUKOREDUCED UNIT(S) (03/16/2025 10:21 PM CDT) us Rahul Hernandez MD NURSING - BLOOD PRO D TRANSFUSION Final Result * TYPE + SCREEN PANEL (03/16/2025 5:39 PM CDT) Only the most recent of3 resultswithin the time period is included. Antibody Screen NEG 6:34 PM CDT [facility] ABO Rh O POS 03/16/2025 6:34 PM CDT [facility] Blood Bank BLOOD SPECIMEN / Unknown Venipuncture / Unknown 03/16/2025 5:39 PM CDT 03/16/2025 5:51 PM CDT us Rahul Hernandez MD LAB - BLOOD BANK OR DERABLES Final Result [facility] [address] [place] [address], [place] [phone] * TRANSFUSE RED BLOOD CELL LEUKOREDUCED UNIT(S) (03/16/2025 11:36 AM CDT) us Nayan Hernandez BASEBALL INSPECTOR-SALVAGE CLERK NURSING - BLOOD PRO D TRANSFUSION Final Result * (ABNORMAL) SVO2 FOR RECALIBRATION (03/16/2025 3:11 AM CDT) Only the most recent of4 resultswithin the time period is included. SVO2 for Recalibration 48.1(L) 66.0 - 77.0 % 03/16/2025 3:20 AM CDT [facility] Blood BLOOD SPECIMEN / Unknown Venipuncture / Unknown 03/16/2025 3:11 AM CDT 03/16/2025 3:16 AM CDT us Mariya Botello PA-C LAB - CHEMISTRY ORDERABLES F inal Result [facility] [address] [place] [address], [facility] [phone] * HEMOGLOBIN A1C (03/16/2025 3:11 AM CDT) Pathologist [facility] Hemoglobin A1c 5.3 <=5.6 % 03/16/2025 10:31 AM CDT [facility] Estimated Average Glucose 105 mg/dL 03/16/2025 10:31 AM [facility] Comment: HbA1c Interpretation: Normal : < 5.7% Pre-diabetes: 5.7-6.4% Diabetes: Equal to or greater than 6.5% Test results diagnostic of diabetes should be repeated for confirmation. Treatment target values recommended by ADA and other clinical organizations should be used to evaluate metabolic control in patients. Reference: [place] [employer] Association, Standards of Care in Diabetes [...] ORDERABLES F inal Result Performing Organization Address City/[facility]/ZIP Co de Phone Number [address] [address], [facility] [phone] * (ABNORMAL) LACTIC ACID BLOOD (03/16/2025 3:11 AM CDT) Only the most recent of3 resultswithin the time period is included. [facility] Lactic Acid-Stat 3.7(HH) <=2.0 mmol/L 03/16/2025 4:02 AM [facility] Blood BLOOD SPECIMEN / Unknown Venipuncture / Unknown 03/16/2025 3:11 AM CDT 03/16/2025 3:21 AM CDT us Nayanbita Hernandez BASEBALL INSPECTOR-SALVAGE CLERK LAB - CHEMISTRY ORD ERABLES Final Result Performing Organization Address [facility]/ZIP Co de Phone Number [address] [address], [place] [phone] * (ABNORMAL) BLOOD GASES ART + COOX PANEL (03/16/2025 3:11 AM CDT) Only the most recent of4 resultswithin the time period is included. [facility] pH Arterial 7.38 7.35 - 7.45 pH 03/16/2025 3:21 AM [facility] pO2 Arterial 104(H) 80 - 100 mmHg 03/16/2025 3:21 AM [facility] pCO2 Arterial 31(L) 35 - 45 mmHg 3:21 AM [facility] HCO3 Arterial 18.3(L) 20.0 - 30.0 mmol/L 03/16/2025 3:21 AM [facility] BE Arterial -6.1(L) -2.0 - 2.0 mmol/L 03/16/2025 3:21 AM [facility] Oxyhemoglobin Arterial 96.3 % 03/16/2025 3:21 AM [facility] Dexoyhemoglobin (HHB) % <1.0 % 03/16/2025 3:21 AM [facility] Methemoglobin 1.3 0.0 - 2.0 % 03/16/2025 3:21 AM CDT [facility] Carboxyhemoglobin 1.8 0.0 - 2.0 % 2024 3:21 AM CDT [facility] O2 Content Arterial 10.6 Interpret within clinical context ml/dL 03/16/2025 3:21 AM CDT [facility] Hemoglobin by COOX 7.7(L) 12.0 - 17.6 g/dL 03/16/2025 3:21 AM CDT [facility] O2 Saturation Arterial 99 90 - 100 % 03/16/2025 3:21 AM CDT [facility] FI O2 Arterial 28.0 % 03/16/2025 3:21 AM CDT [facility] Blood, arterial ARTERIAL BLOOD SPECIMEN / Unknown Arterial Puncture / Unknown 03/16/2025 3:11 AM CDT 03/16/2025 3:16 AM CDT Narrative [facility] - 03/16/2025 3:21 AM CDT Carboxyhemoglobin Normal Concentration: Non-smokers: 0-2%; Smokers: 0-9%; Toxic: >20% us Nayan Hernandez BASEBALL INSPECTOR-SALVAGE CLERK LAB - BLOOD GASES O RDERABLES Final Result [facility] [address] [place] [address], [facility] [phone] * TRANSFUSE RED BLOOD CELL LEUKOREDUCED UNIT(S) [...] - 400 mg/dL 03/15/2025 6:03 PM CDT [facility] Blood BLOOD SPECIMEN / Unknown Venipuncture / Unknown 03/15/2025 5:32 PM CDT 03/15/2025 5:35 PM CDT Mariya Botello PA-C LAB - COAGULATION ORDERABLES Final Result Performing Organization Address City/[facility]/ZIP Co de Phone Number [address] [address], [place] [phone] * PTT (03/15/2025 5:32 PM CDT) Only the most recent of2 resultswithin the time period is included. APTT 29.8 23.0 - 38.4 Seconds 03/15/2025 6:05 PM CDT [facility] Comment:Suggested therapeuti c range for full dose I.V. unfractionated heparin therapy for venous thromboembolism is 71 to 109 seconds. Blood BLOOD SPECIMEN / Unknown Venipuncture / Unknown 03/15/2025 5:32 PM CDT 03/15/2025 5:35 PM CDT Mariya Botello PA-C LAB - COAGULATION ORDERABLES Final Result Performing Organization Address [facility]/ZIP Co de Phone Number [address] [address], [place] [phone] * (ABNORMAL) DIFFERENTIAL MANUAL (03/15/2025 5:32 PM CDT) Neutrophil % 90(H) 41 - 74 % 03/15/2025 6:09 PM [facility] Lymphocyte % 6(L) 17 - 47 % 03/15/2025 6:09 PM [facility] Monocyte % 4 3 - 11 % 03/15/2025 6:09 PM [facility] Neutrophil Absolute 19.53(H) 1.60 - 7.50 x10E9/L 03/15/2025 6:09 PM [facility] Lymphocyte Absolute 1.30 1.00 - 4.40 x10E9/L 03/15/2025 6:09 PM [facility] Monocyte Absolute 0.87 0.15 - 1.00 x10E9/L 03/15/2025 6:09 PM [facility] RBC Morphology REVIEWED 03/15/2025 6:09 PM [facility] Large Platelets PRESENT(A) (none) 03/15/2025 6:09 PM [facility] Blood BLOOD SPECIMEN / Unknown Venipuncture / Unknown 03/15/2025 5:32 PM CDT 03/15/2025 5:38 PM CDT us Mariya Botello PA-C LAB - HEMATOLOGY ORDERABLES Final Result [facility] [address] [place] [address], [facility] [phone] * (ABNORMAL) CBC W AUTO DIFFERENTIAL (03/15/2025 5:32 PM CDT) Only the most recent of14 resultswithin the time period is included. WBC 21.7(H) 4.0 - 10.7 x10E9/L 03/15/2025 6:09 PM [facility] RBC Count 2.71(L) 4.30 - 5.80 x10E12/L 03/15/2025 6:09 PM [facility] Hemoglobin 7.9(L) 13.3 - 17.5 g/dL 03/15/2025 6:09 PM [facility] Hematocrit 24.0(L) 38.7 - 51.1 % 03/15/2025 6:09 PM CDT [facility] MCV 88.6 80.0 - 98.0 fL 03/15/2025 6:09 PM CDT [facility] MCH 29.2 26.7 - 33.6 pg 03/15/2025 6:09 PM CDT [facility] MCHC 32.9 31.7 - 36.3 g/dL 03/15/2025 6:09 PM T [facility] RDW-CV 15.9(H) 11.3 - 14.8 % 03/15/2025 6:09 PM CDT [facility] Platelet Count 251 150 - 420 x10E9/L 03/15/2025 6:09 PM T [facility] MPV 9.5 7.8 - 11.4 fL 03/15/2025 6:09 PM CDT [facility] Blood BLOOD SPECIMEN / Unknown Venipuncture / Unknown 03/15/2025 5:32 PM CDT 03/15/2025 5:38 PM CDT Mariya Botello PA-C LAB - HEMATOLOGY ORDERABLES Final Result [facility] [address] [place] [address], [place] [phone] * CULTURE FUNGUS OTHER+FUNGUS SMEAR (03/15/2025 5:06 PM CDT) Culture No fungus isolated [place] 04/10/2025 7:07 AM CDT [facility] Fungus Stain No yeast or hyphae seen 04/10/2025 7:07 AM CDT [facility] Microbiology TISSUE SPECIMEN / Unknown Collection / Unknown 03/15/2025 5:06 PM CDT 03/15/2025 5:06 PM CDT Rahul Hernandez MD LAB - MICROBIOLOGY ORDERABLES Final Result [facility] [address] [place] [address], [facility] [phone] * CULTURE WOUND+GRAM STAIN (03/15/2025 5:06 PM CDT) Culture No growth [place] 03/19/2025 1:10 PM CDT [facility] Gram Stain Light Polymorphonuclear cells 03/19/2025 1:10 PM CDT [facility] Gram Stain No organisms seen 025 1:10 PM CDT [facility] Microbiology TISSUE SPECIMEN / Unknown Collection / Unknown 03/15/2025 5:06 PM CDT 03/15/2025 5:06 PM CDT Rahul Hernandez MD LAB - MICROBIOLOGY ORDERABLES Final Result Performing Organization Address City/[facility]/ZIP Co de Phone Number [facility] [address] [place] [address], [facility] [phone] * CULTURE ANAEROBE (03/15/2025 5:06 PM CDT) Culture No anaerobic organisms isolated [place] 03/20/2025 12:08 PM CDT [facility] Microbiology TISSUE SPECIMEN / Unknown Collection / Unknown 03/15/2025 5:06 PM CDT 03/15/2025 5:06 PM CDT Rahul Hernandez MD LAB - MICROBIOLOGY ORDERABLES Final Result Performing Organization Address [facility]/ZIP Co de Phone Number [facility] [address] [place] [address], [facility] [phone] * TRANSFUSE FRESH FROZEN PLASMA UNIT(S) (03/15/2025 [...] were not saved. I personally performed. CPT 35663 with bilateral modifier. Result [facility] Alexa Page MD GENERAL ANESTHESIA ORDERA BLES Final Result * TRANSFUSE RED BLOOD CELL LEUKOREDUCED UNIT(S) (03/15/2025 4:15 PM CDT) Rahul Hernandez MD NURSING - BLOOD PRO D TRANSFUSION Final Result * TRANSFUSE PLATELET PHERESIS UNIT(S) (03/15/2025 4:14 PM CDT) Rahul Hernandez MD NURSING - BLOOD PRO D TRANSFUSION Final Result * (ABNORMAL) BLOOD GAS+COOX+LYTES+METAB ARTERIAL POCT (03/15/2025 4:00 PM [facility]) Only the most recent of9 resultswithin the time period is included. pH Arterial 7.34(L) 7.35 - 7.45 pH 03/15/2025 4:00 PM [facility] pO2 Arterial 384(H) 80 - 100 mmHg 03/15/2025 4:00 PM [facility] pCO2 Arterial 41 35 - 45 mmHg 4:00 PM [facility] HCO3 Arterial 22.1 20.0 - 30.0 mmol/L 03/15/2025 4:00 PM [facility] BE Arterial -3.4(L) -2.0 - 2.0 mmol/L 03/15/2025 4:00 PM [facility] Oxyhemoglobin Arterial 97.9 % 03/15/2025 4:00 PM [facility] Dexoyhemoglobin (HHB) % <1.0 % 03/15/2025 4:00 PM [facility] Methemoglobin 1.1 0.0 - 2.0 % 03/15/2025 4:00 PM [facility] Carboxyhemoglobin 1.0 0.0 - 2.0 % 2024 4:00 PM [facility] Comment:Carboxyhemoglobin No rmal Concentration: Non-smokers: 0-2%; Smokers: 0- 9%; Toxic: >20% O2 Content Arterial 13.2 Interpret within clinical context ml/dL 03/15/2025 4:00 PM [facility] Hemoglobin by COOX 8.8(L) 12.0 - 17.6 g/dL 03/15/2025 4:00 PM [facility] O2 Saturation Arterial 100 90 - 100 % 03/15/2025 4:00 PM [facility] Sodium Whole Blood 138 135 - 145 mmol/L 03/15/2025 4:00 PM [facility] Potassium Whole Blood 4.1 3.5 - 5.5 mmol/L 03/15/2025 4:00 PM [facility] Chloride WB 107 78 - 107 mmol/L 03/15/2025 4:00 PM [facility] Calcium Ionized 1.36 mmol/L 4:00 PM CDT [facility] Ionized Calcium pH Adjusted 1.33 1.19 - 1.34 mmol/L 03/15/2025 4:00 PM CDT [facility] Anion Gap (AG) Arterial 9 6 - 16 mmol/L 03/15/2025 4:00 PM CDT [facility] Glucose WB 193(H) 70 - 99 mg/dL 03/15/2025 4:00 PM CDT [facility] Lactic Acid Whole Blood 1.8 <=2.0 mmol/L 03/15/2025 4:00 PM CDT [facility] Blood, arterial ARTERIAL BLOOD SPECIMEN / Unknown 03/15/2025 4:00 PM CDT 03/15/2025 4:00 PM CDT us Cornelia Serra MD LAB - POINT OF CARE ORDERABLE S Final Result [address] [address], [facility] [phone] * TRANSFUSE RED BLOOD CELL LEUKOREDUCED UNIT(S) (03/15/2025 3:30 PM CDT) us Rahul Hernandez MD NURSING - BLOOD PRO D TRANSFUSION Final Result * ACT PLUS - POCT ([facility]) (03/15/2025 3:17 PM CDT) Only the most recent of8 resultswithin the time period is included. Pathologist [facility] ACT PLUS 112 See result comments sec 03/15/2025 3:21 PM CDT [facility] Blood BLOOD SPECIMEN / Unknown 03/15/2025 3:17 PM CDT 03/15/2025 3:21 PM CDT Narrative [facility] - 03/15/2025 3:21 PM CDT ACT+ Therapeutic ranges for the ACT+ test in surgery areas are: Greater than (>) 360 seconds for surgical patients Greater than (>) 450 seconds for surgical bypass patients us Cornelia Serra MD LAB - COAGULATION ORDERABLES Final Result [facility] [address] [place] [address], [facility] [phone] * (ABNORMAL) TEG 6 GLOBAL HEMOSTASIS WITH HEPARIN NEUTRALIZATION (03/15/2025 3:10 PM CDT) Pathologist [facility] CITRATED KAOLIN R (CK-R REACTION TIME) 5.4 4.6 - 9.1 min 03/15/2025 4:11 PM CDT [facility] CITRATED KAOLIN MA (-MA MAX AMPLITUDE) 70.3(H) 52.0 - 69.0 mm 03/15/2025 4:11 PM CDT [facility] CITRATED KAOLIN HEPARINASE R ( [facility] R REACTION TIME) 4.7 4.3 - 8.3 min 03/15/2025 4:11 PM CDT [facility] CITRATED KAOLIN HEPARINASE LY30 ([facility] LY30 LYSIS) 0.0 0.0 - 3.2 % 03/15/2025 4:11 PM CDT [facility] CITRATED RAPIDTEG HEPARINASE MA ( [facility] MA MAX AMPLITUDE) 69.5(H) 53.0 - 69.0 mm 03/15/2025 4:11 PM CDT [facility] CITRATED FUCTIONAL FIBRINOGEN HEPARINASE ( [facility] MAX AMPLITUDE) 39.1(H) 15.0 - 34.0 mm 03/15/2025 4:11 PM CDT [facility] Blood BLOOD SPECIMEN / Unknown 03/15/2025 3:10 PM CDT 03/15/2025 3:18 PM CDT us Alexa Page MD LAB - HEMATOLOGY ORDERABL ES Final Result [address] [address], [facility] [phone] * PLATELET COUNT AUTO CITRATED BLOOD (03/15/2025 2:33 PM CDT) [facility] Platelet Count Citrated 215 150 - 420 x10E9/L 03/15/2025 3:49 PM CDT [facility] Blood BLOOD SPECIMEN / Unknown Venipuncture / Unknown 03/15/2025 2:33 PM CDT 03/15/2025 2:33 PM CDT Narrative [facility] - 03/15/2025 3:49 PM CDT This test was developed and its performance characteristics determined by the clinical laboratories of [facility] and [facility]. It has not been cleared and approved by the [place] Food and Drug Administration. us Alexa Page MD LAB - HEMATOLOGY ORDERABL ES Final Result [facility] [address] [place] [address], [facility] [phone] * PATHOLOGY TISSUE (03/15/2025 1:53 PM CDT) Case Report Surgical Pathology Report Case: [id number] Authorizing Provider: Rahul Hernandez Collected: 03/15/2025 01:53 PM MD Tyrell Ordering Location: [facility] ZUNILDA OP Received: 03/16/2025 05:08 AM Pathologist: Ericka Robert MD Specimen: Mitral Valve, Anterior leaflet of mitral valve 03/17/2025 3:58 PM CDT [facility] Final Diagnosis Heart, mitral valve, replacement (A): - Endocarditis 03/17/2025 3:58 PM CDT [facility] at 1558 CDT Microscopic Description [...] labeled with the patient's name Marshall Mercer ., specimen A, consists of a 3.2 x 1.8 x 0.1 cm portion of henry-white to henry-yellow heterogeneous rubbery tissue, consistent with mitral valve leaflet, which has multiple portions of attached henry-white thin delicate chordae tendinea. There are no vegetations or calcific nodules present. Meter Calibrator sections are submitted in a single cassette labeled A1. RB 03/17/2025 3:58 PM CDT [facility] Pathologist Location at [facility] 03/17/2025 3:58 PM CDT [facility] Disclaimer The performance characteristics of all immunohistochemical and indirect immunofluorescence stains (if any) cited in this report were determined by the Histopathology Laboratory of [facility]. Some of these tests were developed [...] LAB Embedded Images 03/17/2025 3:58 PM CDT [facility] Resection without Tumor ENTIRE MITRAL VALVE / Unknown 03/15/2025 1:53 PM CDT 03/16/2025 5:08 AM CDT Comment:Pre-op diagnosis: mitral valve regurgitation Rahul Hernandez MD LAB - PATHOLOGY/CYT OLOGY ORDERABLES Final Result Performing Organization Address City/State/[facility] Co de Phone Number [facility] [address] [phone] * PA CATH PERFORMABLE, INTRODUCER (03/15/2025 12:19 [...] anesthesia. Staff Section Anesthesia Provider: Ricki Shields DO [...] Event Date/Time: 03/15/2025 11:38 AM Procedure: intubation ([id number]) Procedure Section: Sedation: under general anesthesia. Indications [...] Time: 03/15/2025 11:32 AM Procedure: Arterial Line (87702) Procedure Section Indications: continuous blood pressure monitoring. [...] See Separate Report 03/15/2025 9:31 AM CDT [facility] Other MISCELLANEOUS SAMPLES / Unknown 03/15/2025 8:06 AM CDT 03/15/2025 8:07 AM CDT us Rahul Hernandez MD LAB - BLOOD GASES O RDERABLES Final Result Performing Organization Address City/[facility]/ZIP Co de Phone Number [address] [address], [place] [phone] * BLOOD GAS ART+LYTES+METAB+COOX POC NOTIF (03/15/2025 8:06 AM CDT) Comment Notification Label Only - See Separate Report 03/15/2025 9:31 AM CDT [facility] Other MISCELLANEOUS SAMPLES / Unknown 03/15/2025 8:06 AM CDT 03/15/2025 8:07 AM CDT us Rahul Hernandez MD LAB - BLOOD GASES O RDERABLES Final Result Performing Organization Address City/[facility] Co de Phone Number [address] [address], [place] [phone] * ECHO ANES SINTIA INTRAOP (03/15/2025 6:23 [...] 10:01 AM Patient Status: I/P Study Site: [facility] Primary Location: [facility] EStudy Info Exam Type: ECHO [...] 10:01 AM Patient Status: I/P Study Site: [facility] Primary Location: [facility] EStudy Info Exam Type: ECHO [...] UNIT(S) (03/14/2025 5:37 PM CDT) Ofelia Mckee [employer]ASE[employer] INSPECTOR-SALVAGE CLERK NURSING - BLOOD PROD TRANSFUSION Final Result * PREPARE (CROSSMATCH) RBC UNIT(S), 1 Units (03/14/2025 5:21 AM CDT) Only the most recent of6 resultswithin the time period is included. Unit Description N/A [facility] BLOOD BANK LAB Blood Bank BLOOD SPECIMEN / Unknown 03/14/2025 5:21 AM CDT 03/14/2025 5:53 AM CDT Rahul Hernandez MD LAB - BLOOD BANK OR DERABLES Final Result [facility] [address] [place] [address], [place] [phone] * PREPARE PLATELET PHERESIS UNIT(S), 2 Units (03/14/2025 5:21 AM CDT) Only the most recent of2 resultswithin the time period is included. Unit Description LR PLT Phere B7 [facility] Unit ABO O [facility] Unit Rh POS [facility] Product Number P27 [facility] Unit Donor # [id number] [facility] Unit Status transfused [facility] Product Code [id number] [facility] Blood Type Barcode 5100 [facility] Expiration Date [id number] S BLOOD BANK LAB Unit Description LR PLT Phere B7 [facility] Unit ABO O [facility] Unit Rh POS [facility] Product Number P27 [facility] Unit Donor # [id number] [facility] Unit Status released [facility] Product Code [id number] [facility] Blood Type Barcode 5100 [facility] Expiration Date [id number] S BLOOD BANK LAB Blood Bank BLOOD SPECIMEN / Unknown 03/14/2025 5:21 AM CDT 03/14/2025 5:53 AM CDT Rahul Hernandez MD LAB - BLOOD BANK OR DERABLES Final Result [facility] [address] [place] [address], [facility] [phone] * PREPARE FFP UNIT(S), 4 Units (03/14/2025 5:21 AM CDT) Only the most recent of2 resultswithin the time period is included. Unit Description Liquid Plasma [facility] Unit ABO A [facility] Unit Rh POS [facility] Product Number [id number] [facility] Unit Donor # [id number] [facility] Unit Status released [facility] Product Code [id number] [facility] Blood Type Barcode 6200 [facility] Expiration Date [id number] S BLOOD BANK LAB Unit Description Liquid Plasma [facility] Unit ABO A [facility] Unit Rh POS [facility] Product Number [id number] [facility] Unit Donor # [id number] [facility] Unit Status transfused [facility] Product Code [id number] [facility] Blood Type Barcode 6200 [facility] Expiration Date [id number] S BLOOD BANK LAB Blood Bank BLOOD SPECIMEN / Unknown 03/14/2025 5:21 AM CDT 03/14/2025 5:53 AM CDT us Rahul Hernandez MD LAB - BLOOD BANK OR DERABLES Final Result [facility] [address] [place] [address], [facility] [phone] * (ABNORMAL) URINALYSIS REFLEX MICROSCOPIC REFLEX CULTURE (03/13/2025 9:10 AM CDT) Only the most recent of2 resultswithin the time period is included. Color UA Colorless(A) Yellow, Straw 03/13/2025 9:50 AM T [facility] Clarity UA Clear Clear 03/13/2025 9:50 AM T [facility] Glucose UA 1+(A) Normal 03/13/2025 9:50 AM T [facility] Bilirubin UA Negative Negative 03/13/2025 9:50 AM T [facility] Ketone UA Negative Negative 03/13/2025 9:50 AM T [facility] Specific [place] UA 1.012 1.005 - 1.030 03/13/2025 9:50 AM T [facility] Blood UA Negative Negative 03/13/2025 9:50 AM T [facility] pH UA 6.5 5.0 - 8.0 03/13/2025 9:50 AM T [facility] Protein UA 1+(A) Negative 03/13/2025 9:50 AM T [facility] Urobilinogen UA Normal Normal mg/dL 03/13/2025 9:50 AM CDT [facility] Nitrite UA Negative Negative 03/13/2025 9:50 AM [facility] Leukocyte Esterase UA Negative Negative 03/13/2025 9:50 AM CDT [facility] RBC UA 0-2 0 - 5 # /hpf 03/13/2025 9:50 AM CDT [facility] WBC UA 0-5 0 - 5 # /hpf 03/13/2025 9:50 AM T [facility] Bacteria UA None Seen None Seen 03/13/2025 9:50 AM T [facility] Squamous Epithelial Cells None Seen 0 - 5 /hpf 03/13/2025 9:50 AM [facility] Mucus UA 1+ /LPF 03/13/2025 9:50 AM [facility] Reflex Status Culture not indicated 03/13/2025 9:50 AM [facility] Urine URINE SPECIMEN OBTAINED BY CLEAN CATCH PROCEDURE / Unknown Collection / Unknown 03/13/2025 9:10 AM CDT 03/13/2025 9:19 AM CDT Narrative [facility] - 03/13/2025 9:50 AM CDT Ofelia Mckee BASEBALL INSPECTOR-SALVAGE CLERK LAB - URINALYSIS ORDE RABALVIN Final Result [facility] [address] [place] [address], [place] [phone] * BLOOD TYPE VERIFICATION (03/10/2025 10:02 PM CDT) ABO Rh O POS 03/10/2025 10:56 PM CDT [facility] Blood Bank BLOOD SPECIMEN / Unknown Lab Venipuncture / Unknown 03/10/2025 10:02 PM CDT 03/10/2025 10:11 PM CDT Yousuf Chaudhari PA-C LAB - BLOOD BANK ORDERABLES Final Result [facility] [address] [place] [address], [place] [phone] * CT Chest Wo Contrast (03/10/2025 2:43 [...] > Dictated by Nick Jay MD, (resident associate). > Dictated by Quill Collector IJen MD have personally reviewed and interpreted this examination/study. 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 > Dictated by Quill Collector Jen Cason MD have personally reviewed and [...] PMHx HTN, COPD, CKD, GERD presented to [facility] as OSH transfer for CTS [...] Event Date/Time: 03/09/2025 6:17 PM Procedure: intubation (60378) Procedure Section: Sedation: under general anesthesia. Indications [...] indicated. > Dictated by Eunice Ramirez (resident associate). > Dictated by Eunice Ramirez 03/09/2025 11:07 AM > Dictated by Quill Collector Ad Cason. Stephany Thomson MD have personally reviewed and interpreted this examination/study. > Interpreting Provider: Jen Thomson MD on 03/09/2025 1:40 PM Narrative 03/09/2025 1:40 PM CDT PROCEDURE: US RETROPERITONEAL COMPLETE DATE/TIME OF EXAM: 03/09/2025 10:36 AM CLINICAL INFORMATION: None relevant/not provided if blank. Indication: N18.5: CKD (chronic kidney disease) stage 5, GFR less than 15 ml/min ([facility]) Additional History: COMPARISON: None. TECHNIQUE: Real-time ultrasound of the kidneys and bladder with DICOM image capture performed by agricultural engineering technologist. FINDINGS: Right kidney: 10.9 x 5.6 [...] 5, GFR less than15 ml/min ([facility]) Additional History: COMPARISON: None. TECHNIQUE: Real-time ultrasound of the kidneys and bladder with DICOMimage capture performed by agricultural engineering technologist. FINDINGS: Right kidney: 10.9 x 5.6 [...] indicated. > Dictated by Eunice Ramirez (resident associate). > Dictated by Eunice Ramirez 03/09/2025 11:07 AM > Dictated by Quill Collector IJen MD have personally reviewed and interpreted this examination/study. > Interpreting Provider: Jen Thomson MD on 03/09/2025 1:40 PM Adalberto Arroyo MD US ORDERABLES Final Result * VITAMIN D 25-HYDROXY (03/08/2025 5:06 AM CDT) Vitamin D, 25 Hydroxy 39.0 30.0 - 80.0 ng/mL 03/08/2025 6:22 AM CDT [facility] Comment: The recommendations for 25-Hydroxy Vitamin D [...] LAB - CHEMISTRY ORDERABLES F inal Result [address] [address], [facility] [phone] * (ABNORMAL) PTH INTACT W/O CALCIUM (03/08/2025 5:05 AM CDT) PTH Intact 80.3(H) 8.0 - 77.0 pg/mL 03/08/2025 6:10 AM CDT [facility] Blood BLOOD SPECIMEN / Unknown Lab Venipuncture / Unknown 03/08/2025 5:05 AM CDT 03/08/2025 5:34 AM CDT Adalberto Arroyo MD LAB - CHEMISTRY ORDERABLES F inal Result [address] [address], [facility] [phone] * (ABNORMAL) IRON + TRANSFERRIN PANEL (03/08/2025 5:05 AM CDT) Iron 38(L) 50 - 175 ug/dL 03/08/2025 6:09 AM CDT [facility] Transferrin 201 174 - 382 mg/dL 03/08/2025 6:09 AM CDT [facility] Transferrin Saturation % 15(L) 16 - 50 % 03/08/2025 6:09 AM CDT [facility] TIBC Calculated 251 240 - 450 ug/dL 03/08/2025 6:09 AM CDT [facility] Blood BLOOD SPECIMEN / Unknown Lab Venipuncture / Unknown 03/08/2025 5:05 AM CDT 03/08/2025 5:24 AM CDT Adalberto Arroyo MD LAB - CHEMISTRY ORDERABLES F inal Result Performing Organization Address City/[facility]/ZIP Co de Phone Number [address] [address], [place] [phone] * (ABNORMAL) FERRITIN (03/08/2025 5:05 AM CDT) Ferritin 447(H) 22 - 275 ng/mL 03/08/2025 6:13 AM CDT [facility] Blood BLOOD SPECIMEN / Unknown Lab Venipuncture / Unknown 03/08/2025 5:05 AM CDT 03/08/2025 5:24 AM CDT Adalberto Arroyo MD LAB - CHEMISTRY ORDERABLES F inal Result [address] [address], [place] [phone] * VAS Carotid Duplex Bilateral (03/07/2025 4:07 PM CDT) Anatomical Region Laterality Modality Neck Intravascular Ul trasound 03/07/2025 2:33 PM CDT Narrative Procedure Note Osvaldo Doyle MD - 03/08/2025 Kota Estrella BASEBALL INSPECTOR-SALVAGE CLERK VASCULAR LAB ORDERABLE S Edited Result - [...] 10:44 AM Patient Status: I/P Study Site: [facility] Primary Location: [facility] EStudy Info Exam Type: ECHO SINTIA COMPLETE Indications I34.81 - Calcification of mitral valve Contrast/Agitated Saline Contrast / Saline: Agitated Saline Amount: 10.00 ml Reaction to Contrast: no * A 3D, 2D, color Doppler and spectral Doppler transesophageal echocardiogram was performed with a Bubble Study. Staff Referring Physician: Pramod Torres Ordering Provider: Pramod Torres Attending Physician: Pramod Torres Fellow: Osvaldo Sepulveda Milk Drying Machine Operator: Iris Greco Performing Physician: Tahmina Bui Complications [...] anterior mitral valve leaflet tip (around the A2/[id number] tip). * There is moderate to severe [...] 10:44 AM Patient Status: I/P Study Site: [facility] Primary Location: [facility] EStudy Info Exam Type: ECHO SINTIA COMPLETE Indications I34.81 - Calcification of mitral valve Contrast/Agitated Saline Contrast / Saline: Agitated Saline Amount: 10.00 ml Reaction to Contrast: no * A 3D, 2D, color Doppler and spectral Doppler transesophagealechocardiogram was performed with a Bubble Study. Staff Referring Physician: Pramod Torres Ordering Provider: Pramod Torres Attending Physician: Pramod Torres Fellow: Osvaldo Sepulveda Milk Drying Machine Operator: Iris Greco Performing Physician: Tahmina Bui Complications [...] anterior mitral valve leaflet tip (around the A2/P4hwndbou tip). There is moderate to severe mitral [...] of4 resultswithin the time period is included. [facility] Culture No growth day 5 LAVELLE 03/09/2025 1:30 PM CDT [facility] Blood PERIPHERAL BLOOD / Unknown Lab Venipuncture / Unknown 03/04/2025 11:09 AM CDT 03/04/2025 11:25 AM CDT Pramod Raissa Torres DO LAB - MICROBIOLOGY ORDERABLES Final Result Performing Organization Address City/[facility]/ZIP Co de Phone Number [facility] [address] [place] [address], [facility] [phone] * HEPATITIS C AB SCREEN RFLX NAAT QUANT (03/04/2025 6:36 AM CDT) [facility] Hepatitis C Antibody Non-react francisco Non-reac tive 03/04/2025 8:16 AM CDT [facility] Comment:Hepatitis C Antibody screen indicates no serologic [...] LAB - CHEMISTRY ORDERABLES Fin al Result [facility] [address] [place] [address], [place] [phone] * HIV-1 HIV-2 ANTIBODY + HIV P24 AG PANEL (03/04/2025 6:36 AM CDT) [facility] HIV Antigen/Antibod y 1 & 2 Non-reacti ve Non-react francisco 03/04/2025 9:14 AM CDT [facility] Comment:No Laboratory eviden ce of HIV infection. Blood BLOOD SPECIMEN / Unknown Lab Venipuncture / Unknown 03/04/2025 6:36 AM CDT 03/04/2025 6:55 AM CDT Pramod Torres DO LAB - CHEMISTRY ORDERABLES Fin al Result Performing Organization Address [facility]/ZIP Co de Phone Number [address] [address], [facility] [phone] * HEPATITIS B PANEL (03/04/2025 6:36 AM CDT) Hepatitis B Surface Antibody Quantitative <3.0 <8.0 mIU/mL 03/04/2025 8:41 AM CDT [facility] Comment: Hepatitis B Surface Antibody Numeric Result Interpretation: Nonreactive: <8.0 mIU/mL Indeterminate: 8.0 - 12.0 mIU/mL Reactive: >12.0 mIU/mL Hepatitis B Virus Surface Antibody Non-react francisco Non-react francisco 03/04/2025 8:41 AM CDT [facility] Comment: < 8 mIU/mL Hepatitis B surface Antibody (HBsAb). Nonreactive for HBsAb - individual is considered not immune to Hepatitis B Virus infection. Hepatitis B Virus Surface Antigen Non-react francisco Non-react francisco 03/04/2025 8:41 AM CDT [facility] Hepatitis B Core Virus Antibody IgM Non-react francisco Non-react francisco 03/04/2025 8:41 AM CDT [facility] Blood BLOOD SPECIMEN / Unknown Lab Venipuncture / Unknown 03/04/2025 6:36 AM CDT 03/04/2025 6:55 AM CDT Pramod Torres DO LAB - CHEMISTRY ORDERABLES Fin al Result Performing Organization Address [facility]/ZIP Co de Phone Number [address] [address], [facility] [phone] * XR Panorex (03/03/2025 4:22 PM CDT) Anatomical Region Laterality Modality Head Radiographic Melba ging 03/04/2025 8:30 AM CDT Impressions 03/04/2025 9:17 AM CDT IMPRESSION: Lucencies within the right mandibular presumed location of absent of the molar and premolar teeth. Recommend dental consultation. The report was drafted by Ofe Aponte MD (resident services coordinator) 03/04/2025 8:30 AM. > Dictated by Quill Collector I, Jamie Barriga MD have personally reviewed and interpreted this examination/study. > Interpreting Provider: Jamie Barriga MD on 03/04/2025 9:17 AM Narrative 03/04/2025 9:17 AM CDT PROCEDURE: XR PANOREX, DATE/TIME OF EXAM: 03/03/2025 4:22 PM, LOCATION [facility] INDICATION: D73.3: Abscess of spleen I34.81: [...] PANOREX, DATE/TIME OF EXAM: 03/03/2025 4:22 PM, [facility] INDICATION: D73.3: Abscess of spleen I34.81: [...] was drafted by Ofe Aponte MD (resident services coordinator) 03/04/2025 8:30 AM. > Dictated by Quill Collector I, Jamie Barriga MD have personally reviewed and interpreted this examination/study. > Interpreting Provider: Jamie Barriga MD on 03/04/2025 9:17 AM Pramod Torres DO DIAGNOSTIC IMAGING ORDERABLES Final Result * URINE DRUG SCREEN IMMUNOASSAY (03/03/2025 12:34 PM CDT) [facility] Amphetamines Screen Urine Negative Negative: < 1000 ng/mL 03/03/2025 1:24 PM [facility] Barbiturates Screen Urine Negative Negative: < 200 ng/mL 03/03/2025 1:24 PM [facility] Benzodiazepine Screen Urine Negative Negative: < 200 ng/mL 03/03/2025 1:24 PM [facility] Opiates Urine Negative Negative: < 300 ng/mL 03/03/2025 1:24 PM [facility] Cocaine Metabolites Urine Negative Negative: < 300 ng/mL 03/03/2025 1:24 PM [facility] Phencyclidine Screen Urine Negative Negative: < 25 ng/ml 03/03/2025 1:24 PM [facility] Cannabinoids Screen Urine Negative Negative: <50 ng/mL 03/03/2025 1:24 PM [facility] Methadone Screen Urine Negative Negative: < 300 ng/mL 03/03/2025 1:24 PM [facility] Fentanyl Screen Urine Negative Negative: <1.5 ng/mL 03/03/2025 1:24 PM [facility] Urine URINE / Unknown Collection / Unknown 03/03/2025 12:34 PM CDT 03/03/2025 12:39 PM CDT [facility] - 03/03/2025 1:24 PM CDT The Urine Toxicology Screening Panel does not screen for Propoxyphene, Meprobamate, Carisoprodol, Trazodone, whdh-mvz-tdlkxdp medications and/or volatiles (Acetone, Isopropanol, Methanol or Ethylene Glycol). Ethanol, Salicylate, Acetaminophen, Tricyclic Antidepressants and several therapeutic drugs may be individually assayed in serum or plasma specimen. Toxicology testing by the [facility] is an aid to medical diagnosis and treatment of patients. No documented chain of custody was maintained. Results are intended to be used for clinical purposes only. Pramod Torres DO LAB - URINE CHEMISTRY ORDERABL ES Final Result Performing Organization Address City/[facility]/ZIP Co de Phone Number [address] [address], [place] [phone] * VANCOMYCIN LEVEL RANDOM (03/03/2025 5:00 AM CDT) Only the most recent of3 resultswithin the time period is included. [facility] Vancomycin Random 17.1 Therapeutic Ranges not established for random specimens ug/mL 03/03/2025 6:06 AM CDT [facility] Blood BLOOD SPECIMEN / Unknown Lab Venipuncture / Unknown 03/03/2025 5:00 AM CDT 03/03/2025 5:31 AM CDT Narrative [facility] - 03/03/2025 6:06 AM CDT See institution protocol. Pramod Torres DO LAB - CHEMISTRY ORDERABLES Fin al Result Performing Organization Address [facility] Co de Phone Number [address] [address], [place] [phone] * MRSA PCR (03/02/2025 8:47 AM CDT) [facility] MRSA DNA by PCR Not detected Not detected 03/02/2025 3:41 PM CDT [facility] Microbiology SPECIMEN FROM NASAL FOSSAE / Unknown Collection / Unknown 03/02/2025 8:47 AM CDT 03/02/2025 8:52 AM CDT Narrative [facility] - 03/02/2025 3:41 PM CDT Methicillin-resistant Staphylococcus aureus (MRSA) DNA is not detected (presumed not colonized with MRSA). Shira Harris MD LAB - MICROBIOLOGY ORDERABLES Fi nal Result Performing Organization Address City/[facility]/ZIP Co de Phone Number [facility] [address] [place] [address], [place] [phone] * MONONUCLEOSIS SCREEN (03/02/2025 5:34 AM CDT) [facility] Mononucleosis Qualitative Negative Negative 03/02/2025 6:42 AM CDT [facility] Blood BLOOD SPECIMEN / Unknown Lab Venipuncture / Unknown 03/02/2025 5:34 AM CDT 03/02/2025 6:11 AM CDT Shira Harris MD LAB - CHEMISTRY ORDERABLES Final Result [facility] [address] [place] [address], [facility] [phone] * (ABNORMAL) BLOOD CULTURE ID PANEL (03/02/2025 5:33 AM CDT) [facility] Enterococcus faecalis Detected(A) Not detected 03/03/2025 10:33 AM CDT [facility] Van A/B Vancomycin Resistance Not detected Not detected 03/03/2025 10:33 AM CDT [facility] Comment:Results indicate van comycin-susceptible Enterococcus faecalis. [place]/B not detected. Blood PERIPHERAL BLOOD / Unknown Lab Venipuncture / Unknown 03/02/2025 5:33 AM CDT 03/02/2025 6:06 AM CDT Narrative [facility] - 03/03/2025 10:33 AM CDT Blood Culture ID Panel performed by Graspr multiplex PCR. The Test panel includes: Gram [...] and MREJ (methicillin-resistance - MRSA), NDM ([place] meqxkdh-ecyd-roxypjoru), OXA-48-like (oxacillinase beta-lactamase),Louisa/B (vancomycin-resistance), VIM ([place] Intergrom-Encoded Metallo beta-lactamase). us Shira Harris MD LAB - MICROBIOLOGY ORDERABLES [facility] Result [facility] [address] [place] [address], [facility] [phone] from Last 3 Months Insurance [facility] Advance Directives * Full Code (Latest Code Status on File) Date Activated Date Inactivated Comments 03/01/2025 10:01 PM 03/23/2025 4:41 PM Care Teams Firearms Instructor Relationship Specialty Start Date End Date Carlos Ventura MD [address], [place] [id number] PCP - General Internal Medicine 03/17/25
--- OUTSIDE RECORDS SUMMARY | 2025-04-19 13:32 | XMS_ITS | Clinical Summary ---
Author Organization [facility] Address [address] [place] [address] Care Team Providers Care Inseam Trimming Machine Operator Name Role Phone Eric Singh MD Primary Care Provider [phone] Hammad Prince MD Unavailable Rahul Hernandez MD Unavailable [phone] Allergies No known active allergies Medications Fluticasone-Um [...] mg total) by mouth daily. 30 tablet 03/07/20 Active Additional Information Patient not taking.Reported on 04/14/2025 HYDROcodone-ac etaminophen (NORCO) 5-325 MG tabletIndicati ons:Acute Pain < 7 Day Supply Take 1 tablet by mouth every 4 (four) hours as needed. Indications: Acute Pain < 7 Day Supply 10 tablet 03/06/20 24 Active aspirin 81 MG chewable tablet Chew 1 tablet (81 mg total) by mouth daily. Active furosemide (LASIX) 20 MG tablet Take 1 tablet (20 mg total) by mouth daily. Active warfarin (COUMADIN) 2 MG tablet Take 2 tablets (4 mg total) by mouth daily. Active fexofenadine (GHADA) 180 MG tablet Take 1 tablet (180 mg total) by mouth daily. Active allopurinol (ZYLOPRIM) 100 MG tablet Take 1 tablet (100 mg total) by mouth daily. Active cyclobenzaprin e (FLEXERIL) 5 MG tablet Take 1 tablet (5 mg total) by mouth 2 (two) times a day. Active metoprolol succinate ER (TOPROL-XL) 25 MG 24 hr tablet Take 1 tablet (25 mg total) by mouth daily. 025 Discontin ued(Patie nt/family declined) Active Problems Problem Noted Date Diagnosed Date Acute renal failure (ARF) 03/03/2024 Encounters Date Type Department Care Team Description 04/14/2025 3:15 PM CDT Office Visit [facility] [place] [address] Hammad Prince MD 04/14/2025 Telephone [facility] [place] [address] Hammad Prince MD Appointment Reminder 04/14/2025 Orders Only [facility] [place] [address] Hammad Prince MD 04/14/2025 Travel 04/12/2025 8:10 AM CDT - 04/12/2025 11:59 PM CDT Hospital Encounter [facility] [address] [place] [address] Eric Singh MD Discharge Disposition: Home or Self Care (Routine Discharge) 04/12/2025 Orders Only [facility] [address] Hammad Prince MD 04/12/2025 Travel 03/24/2025 Abstract [facility] [address] [place] [address] Abstract, Doc Pccl 03/24/2025 Telephone [facility] [address] [place] [address] Hammad Prince MD Referral 02/20/2025 Scan [facility] [address] [place] [address] Scanned, Doc Pccl from Last 3 Months Social History Tobacco Use Types Packs/Day Years Used Date Smoking Tobacco: Never Smokeless Tobacco: Never Tobacco Cessation:Counseling Given: Not Answered Alcohol Use Standard Drinks/Week Comments Yes 23.3 (1 standard drink = 0.6 oz pure alcohol) vodka every evening [facility] Utilities Answer Date Recorded In the past 12 months has e [employer], gas, oil, or water [employer] threatened to shut off services in [...] any time in the past 12 m [facility], were you homeless or living in a fci (including now)? No 03/04/2024 Sex and Gender Information Value Date Recorded Sex Assigned at Male 04/12/2025 8:05 AM CDT Legal Sex Male 6:21 PM CDT Gender Identity Not on file Sexual Orientation Not on file Last Filed Vital Signs Vital Sign Reading Time Taken Comments Blood Pressure 136/70 04/14/2025 3:17 PM CDT Pulse 64 04/14/2025 3:17 PM CDT Temperature 36.8 C (98.2 F) 2024 7:29 AM CDT Respiratory Rate 16 04/14/2025 3:17 PM CDT Oxygen Saturation 100% 04/14/2025 3:17 PM CDT Inhaled Oxygen Concentration - - Weight 85.8 kg (189 lb 3.2 oz) 04/14/2025 3:17 P M CDT Height 167.6 cm (5' 6) 04/14/2025 3:17 PM CDT Body Mass Index 30.54 04/14/2025 3:17 PM CDT Plan of Treatment Upcoming Encounters Date Type Department Care Team (Late st Contact Info) Description 10/18/2025 3:30 PM CDT [facility] Visit [facility] [place] [address] Hammad Prince MD [address] [place] [address] Health Maintenance Due Date Last [...] this topic Medical Devices Implanted Type Area Home Care Companion Device Identifier Shelf Expiration Date Model / Serial / Lot Stent Ureteral Contour Vl 4.8fr X 22-30cm - [id number] Implanted:Qty : 1 on 03/05/2024 by Stanley Gonzalez MD at [facility] Stent Right: Ureter [employer] [id number] 12/07/2026 [id number] 50 / / [id number] Stent Ureteral Contour Vl 4.8fr X 22-30cm - [id number] Implanted:Qty : 1 on 03/05/2024 by Stanley Gonzalez MD at [facility] Stent Right: Ureter [employer] [id number] 12/07/2026 [id number] 50 / / [id number] Procedures Procedure Name Priority Date/Time Associated Diagnosis Comments ELECTROCARDIOGRAM (NON MIDMARK ACQUIRED) Routine 04/14/2025 3:23 PM CDT Familial hypercholesterolemi a Essential (primary) hypertension US ABD LIMITED Routine 04/12/2025 8:50 AM CDT Splenic lesion HEPATITIS C ANTIBODY Routine 03/04/2024 6:42 AM CDT from Last 3 Months or Most Recently Relevant to Health Maintenance Results * ELECTROCARDIOGRAM (NON MIDMARK ACQUIRED) (04/14/2025 3:23 PM CDT) 04/14/2025 3:23 PM CDT [facility] 04/14/2025 6:09 PM CDT [facility] [place] [address] [id number] Test Date: 2025-04-14 Pat Name: MARSHALL MERCER Department: 105 Room: Gender: Male Garnett Machine Operator Helper: : 1960 Requested By: HAMMAD PRINCE Order Number: [id number] Reading MD: Hammad Prince Measurements Intervals [place] Rate: 96 P: 59 VT: 203 QRS: 29 QRSD: 98 T: 72 QT: 376 QTc: 477 Interpretive Statements SINUS RHYTHM Procedure Note Hammad Prince MD - 04/14/2025 [facility], [facility] [address] [place] [address] Test Date: 2025-04-14 Pat Name: MARSHALL MERCER Department: 105 Room: Gender: Male Garnett Machine Operator Helper: : 1960 Requested By: HAMMAD PRINCE Order Number: [id number] Reading MD: Hammad Prince Measurements Intervals [place] Rate: 96 P: 59 VT: 203 QRS: 29 QRSD: 98 T: 72 QT: 376 QTc: 477 Interpretive Statements SINUS RHYTHM us Hammad Prince MD PROCEDURES-ORDERABLE NO CHARGE F inal Result [facility] * US ABD LIMITED (04/12/2025 8:50 AM [...] 9:10 AM Narrative 04/12/2025 9:48 AM CDT [address] [place] [address] [place] [address] EXAMINATION: US ABD LIMITED DATE: 04/12/2025 8:16 AM HISTORY: 65 years Male. splenic lesion. Per independent chart review, on 03/10/[address] chest CT performed at [facility] which showed an 8.3 cm hypoattenuating [...] Procedure Note Valeriano Stevens MD - 04/12/2025 [id number] [place] [address] [address] [address] [address] [facility] [place] [address] EXAMINATION: US ABD LIMITED DATE: 04/12/2025 8:16 AM HISTORY: 65 years Male. splenic lesion. Per independent chart review, on03/10/2025 patient had [address]contrast chest CT performed at [facility] whichshowed an 8.3 cm hypoattenuating area [...] [facility] Although imaging from the hospitalization not [...] VE NON-REACTI VE 03/04/2024 8:[address] [facility] 03/04/2024 6:42 AM CDT us Moses Leslie MD LABORATORY Final Result [facility] [address] [place] [address], [place] [phone] from Last 3 Months or Most Recently Relevant to Health Maintenance Insurance [facility] Advance Directives * Full Code (Latest Code Status on File) Date Activated Date Inactivated Comments 03/03/2024 9:23 PM 2024 2:50 PM Care Teams Inseam Trimming Machine Operator Relationship Specialty Start Date End Date Eric Singh MD [address] [place] [address] PCP - General INTERNAL MEDICINE 03/03/24 Hammad Prince MD [address] [place] [address] [place] Director Of Nuclear Medicine CARDIOVASCULAR DISEASE 03/24/25 Rahul Hernandez MD [address] [place] [address] [address] [place] [address] CARDIOTHORACIC SURGERY 03/24/25
--- OUTSIDE RECORDS SUMMARY | 2025-04-19 13:32 | XMS_ITS | Encounter Summary ---
Author Organization [facility] Address [address] [place] [address] Care Team Providers Care Minesweeping Officer Name Role Phone Carlos Ventura MD Primary Care Provider [phone] Encounter Details Date Type Department Care Team (Latest Contact Info) Description 04/18/2025 Travel Social History Tobacco Use Types Packs/Day [...] and heating? Not hard at all 03/01/2025 [facility] - Occupational Stress [...] you homeless or living in a senior care (including now)? 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, [facility] [place] [id number] Yesica Cabello PA-C [address] [place] [address] 05/01/2025 9:00 AM CDT Appointment [facility] [address] [place] [id number] Garcia Gil MD [address] [place] [address] documented as of this encounter Visit Diagnoses Not on filedocumented in this encounter Care Teams Minesweeping Officer Relationship Specialty Start Date End Date Carlos Ventura MD [address] [place] [address] PCP - General Internal Medicine 03/17/25 documented as of this encounter
[2025-04-19 13:45] LABS: Hematocrit 36.1 % (37.0-46.0); Hemoglobin 11.5 g/dL (12.4-15.3); Mean Corpuscular HGB Conc 31.9 g/dL (32-36); Mean Corpuscular Hemoglobin 28.5 pg (27.0-31.0); Mean Corpuscular Volume 89.6 fL (78.0-102.0); Platelet Count Result 332 K/mm3 (150-420); Red Blood Count 4.03 M/mm3 (4.70-6.10); White Blood Count 9.4 K/mm3 (4.8-10.8)
[2025-04-19 13:58] LABS: Band Neutrophils Percent 0 % (0-6); Neutrophils Absolute Manual 5.17 K/mm3 (1.3-6.7); Neutrophils Percent Manual 55 % (46-73); Total Cells Counted 100
[2025-04-19 13:59] LABS: Basophils Absolute Manual 0.00 K/mm3 (0-0.1); Basophils Percent Manual 0 % (0-1); Eosinophils Absolute Manual 1.88 K/mm3 (0.02-0.50); Eosinophils Percent Manual 20 % (1-6); Lymphocytes Absolute Manual 1.50 K/mm3 (1.1-4.5); Lymphocytes Percent Manual 16 % (18-44); Monocytes Absolute Manual 0.84 K/mm3 (0.1-0.90); Monocytes Percent Manual 9 % (3-9)
[2025-04-19 14:18] LABS: Alanine Aminotransferase 9 U/L (6-50); Albumin Level 4.5 g/dL (3.5-5.1); Alkaline Phosphatase 102 U/L (38-126); Anion Gap 13 mmol/L (4-12); Aspartate Amino Transferase 22 U/L (17-59); Bilirubin,Total 0.5 mg/dL (0.2-1.3); Blood Urea Nitrogen 35 mg/dL (9-20); Calcium 10.1 mg/dL (8.4-10.2); Carbon Dioxide 22 mmol/L (22-30); Chloride 108 mmol/L (98-107); Estimated Glomerular Filt Rate 24; Glucose 92 mg/dL (65-110); Osmolality Calculated 304 mOsm/kg (285-295); Potassium 4.7 mmol/L (3.4-5.0); Sodium 143 mmol/L (137-145); Total Protein 10.5 g/dL (6.3-8.2)
== END 2025-04-19 13:27 | disposition home or self-care (01) ==
LOC: CHSLAB 13:30
PROVIDERS: PCP Internal Medicine
DX: Z48.812 Encounter for surgical aftercare following surgery on the circulatory system (principal); Z95.2 Presence of prosthetic heart valve; Z79.02 Long term (current) use of antithrombotics/antiplatelets
CPT/HCPCS: 36415; 80053; 85025

== ENCOUNTER 2025-04-26 13:21 | Outpatient (NON) | payer BC, SELFPAY ==
[2025-04-26 13:36] LABS: Hematocrit 36.8 % (37.0-46.0); Hemoglobin 11.7 g/dL (12.4-15.3); Mean Corpuscular HGB Conc 31.8 g/dL (32-36); Mean Corpuscular Hemoglobin 28.9 pg (27.0-31.0); Mean Corpuscular Volume 90.9 fL (78.0-102.0); Platelet Count Result 305 K/mm3 (150-420); Red Blood Count 4.05 M/mm3 (4.70-6.10); White Blood Count 8.8 K/mm3 (4.8-10.8)
[2025-04-26 13:47] LABS: Alanine Aminotransferase 10 U/L (6-50); Albumin Level 4.3 g/dL (3.5-5.1); Alkaline Phosphatase 98 U/L (38-126); Anion Gap 12 mmol/L (4-12); Aspartate Amino Transferase 20 U/L (17-59); Bilirubin,Total 0.5 mg/dL (0.2-1.3); Blood Urea Nitrogen 31 mg/dL (9-20); Calcium 9.3 mg/dL (8.4-10.2); Carbon Dioxide 22 mmol/L (22-30); Chloride 111 mmol/L (98-107); Estimated Glomerular Filt Rate 19; Glucose 114 mg/dL (65-110); Osmolality Calculated 307 mOsm/kg (285-295); Potassium 4.7 mmol/L (3.4-5.0); Sodium 145 mmol/L (137-145); Total Protein 9.7 g/dL (6.3-8.2)
[2025-04-26 13:51] LABS: Band Neutrophils Percent 0 % (0-6); Eosinophils Absolute Manual 1.23 K/mm3 (0.02-0.50); Eosinophils Percent Manual 14 % (1-6); Lymphocytes Absolute Manual 2.02 K/mm3 (1.1-4.5); Lymphocytes Percent Manual 23 % (18-44); Monocytes Absolute Manual 0.70 K/mm3 (0.1-0.90); Monocytes Percent Manual 8 % (3-9); Neutrophils Absolute Manual 4.84 K/mm3 (1.3-6.7); Neutrophils Percent Manual 55 % (46-73); Total Cells Counted 100
== END 2025-04-26 13:22 | disposition home or self-care (01) ==
LOC: CHSLAB 13:27 → CHSHH 13:29
PROVIDERS: PCP Internal Medicine
DX: Z48.812 Encounter for surgical aftercare following surgery on the circulatory system (principal); Z95.2 Presence of prosthetic heart valve; Z79.02 Long term (current) use of antithrombotics/antiplatelets
CPT/HCPCS: 36415; 80053; 85025

== ENCOUNTER 2025-05-01 07:19 | Outpatient (RCR) | payer BC, SELFPAY ==
[2025-04-17 09:53] LABS: INR 1.9; Prothrombin Time 19.4 Seconds (9.50-12.1)
[2025-04-24 09:07] LABS: INR 1.8; Prothrombin Time 18.4 Seconds (9.50-12.1)
[2025-04-28 08:35] LABS: INR 1.7; Prothrombin Time 18.2 Seconds (9.50-12.1)
[2025-05-01 07:45] LABS: INR 1.9; Prothrombin Time 19.9 Seconds (9.50-12.1)
== END 2025-07-16 23:59 | disposition home or self-care (01) ==
LOC: CHSLAB 07:19
PROVIDERS: PCP Internal Medicine; Visit Provider Internal Medicine
DX: Z79.01 Long term (current) use of anticoagulants (principal)
CPT/HCPCS: 36415; 85610

== ENCOUNTER 2025-05-05 07:50 | Outpatient (CLI) | payer BC, SELFPAY ==
--- OUTSIDE RECORDS SUMMARY | 2025-05-05 07:55 | XMS_ITS | Clinical Summary ---
Author Organization [facility] Address [address] [place] [address] Care Team Providers Care Gizzard Puller Name Role Phone Carlos Ventura MD Primary Care Provider [phone] Source Comments [facility],non-owned Affiliates and Associated Physician Practices is amultiple site organization consisting of ambulatory clinics and hospital sitesin [place], [place], [place] and [place]. This disclosure is being madepursuant to the Care Everywhere program and may not contain all information available regarding this patient. Last updated 18.[facility] Allergies No known active allergies Medications * [...] swallow) 30 tablet 03/23/2025 11:32 AM CDT 5 Active warfarin (Coumadin) 2 MG tablet Take 6 mg daily 30 tablet 1 5 Active warfarin (Coumadin) 1 MG tablet Take 1 (one) tablet by mouth every evening Take total of 7 mg daily 5 Active cefTRIAXone 2 g in NaCl IV 0.9 % 50 mL - IV ceftriaxone 2g every 12 hours - Duration of therapy 6 weeks from date of MVR, 03/15/2025 - EOT 04/26/2025. - Weekly labs: CBC w/ diff, CMP, please fax results to [facility] Infectious disease clinic, fax [phone], Attbita Cabello PA-C 5 05/24/20 25 Active ampicillin 2 g in NaCl IV 0.9 % 100 mL - IV ampicillin 2g every 8 hours (renally dosed), consider continuous infusion outpatient to help with easier administration. - Duration of therapy 6 weeks from date of MVR, 03/15/2025 - EOT 04/26/2025. - Weekly labs: CBC w/ diff, CMP, please fax results to [facility] Infectious disease clinic, fax [phone], Attbita Cabello PA-C 5 05/24/20 25 Active amoxicillin (Amoxil) 500 MG capsule Take 1 (one) capsule by mouth 2 times daily for 49 days 98 capsule 5 06/08/20 25 Active cefTRIAXone 2 g in NaCl IV 0.9 % 50 mL - IV ceftriaxone 2g every 12 hours - Duration of therapy 6 weeks from date of MVR, 03/15/2025 - EOT 04/26/2025. - Weekly labs: CBC w/ diff, CMP, please fax results to [facility] Infectious disease clinic, fax [phone], Marques Cabello PA-C 5 04/18/20 25 Discontin ued(List Clean-Up) ampicillin 2 g in NaCl IV 0.9 % 100 mL - IV ampicillin 2g every 8 hours (renally dosed), consider continuous infusion outpatient to help with easier administration. - Duration of therapy 6 weeks from date of MVR, 03/15/2025 - EOT 04/26/2025. - Weekly labs: CBC w/ diff, CMP, please fax results to [facility] Infectious disease clinic, fax [phone], Marques Cabello PA-C 5 04/18/20 25 Discontin ued(List Clean-Up) Active Problems Problem Noted Date Diagnosed Date [...] surgery will occur today for teeth extraction 8/20 - Cardiology following, appreciate recs from nephrology [...] valve with severe mitral regurgitation. Per [facility], [facility] recommends multi team consult for approved [...] PLAN: - Continue ampicillin and ceftriaxone - SNITIA done, pending results - Per ID consult, [...] valve with severe mitral regurgitation. Per S[facility]IA, [facility] recommends multi team consult for approved [...] valve with severe mitral regurgitation. Per SINTIA, [facility] recommends multi team consult for approved [...] mitral valve with severe mitral regurgitation. Per [facility], [facility] recommends multi team consult for approved [...] Encounters Date Type Department Care Team Description 05/01/2025 10:01 AM CDT - 05/01/2025 12:18 PM CDT Hospital Encounter [facility] ZUNILDA OP [address] [place] [phone] Garcia Gil MD [facility] Discharge Disposition: Home or Self Care 04/28/2025 Telephone [facility] IVR [address] [place] [phone] Vandana Rodriguez, RN Appointment 04/26/2025 Telephone [facility] - Cardiothoracic Surgery [address] [place] [address] Alma Rosa Rodriguez, RN Question 04/20/2025 8:30 AM CDT Office Visit [facility] - Infectious Disease [address] [place] [phone] Yesica Cabello PA-C Abscess of spleen (Primary Dx); S/P MVR (mitral valve replacement); Mitral valve vegetation (HCC); Enterococcal bacteremia 04/20/2025 Travel 04/18/2025 12:59 PM CDT - 04/18/2025 11:59 PM CDT Hospital Encounter [facility] [address] [place] [address] Rahul Hernandez MD Discharge Disposition: Home or Self Care 04/18/2025 10:15 AM CDT Office Visit [facility] - Cardiothoracic Surgery [address] [place] [phone] Ofelia Mckee, FLEXO PRESS OPERATOR-CHIEF DOG LICENSE INSPECTOR Rahul Hernandez MD S/P MVR (mitral valve replacement) (Primary Dx) 04/18/2025 Travel 04/17/2025 Orders Only [facility] - Cardiothoracic Surgery [address] [place] [phone] Alma Rosa Rodriguez RN S/P MVR (mitral valve replacement) ; Current use of anticoagulant therapy 04/04/2025 10:30 AM CDT Office Visit [facility] - Cardiothoracic Surgery [address] [place] [phone] Ofelia Mckee, FLEXO PRESS OPERATOR-CHIEF DOG LICENSE INSPECTOR Rahul Hernandez MD S/P MVR (mitral valve replacement) (Primary Dx) 04/04/2025 9:42 AM CDT - 04/04/2025 11:59 PM CDT Hospital Encounter [facility] DIAGNOSTIC RAD OP [address] [place] [address] Ofelia Mkcee APRN-CHIEF DOG LICENSE INSPECTOR Discharge Disposition: Home or Self Care 04/04/2025 Travel 03/27/2025 Orders Only [facility] [address], [place] [address] Alma Rosa Rodriguez RN 03/24/2025 Telephone [facility] - Infectious Disease [address], [place] [address] Yesica Cabello PA-C Appointment 03/15/2025 11:24 AM CDT Anesthesia Event [facility] [address] [place] [address] Alexa Page MD Polhemus, Kyle, MD 03/15/2025 8:55 AM CDT - 03/15/2025 2:40 PM CDT Surgery [facility] [address] [place] [address] Rahul Hernandez MD Mitral valve replacement 03/15/2025 6:25 AM CDT Ancillary Procedure [facility]TRA OP [address] [place] [address] Cornelia Serra MD Heis, Farah, MD 03/10/2025 8:54 AM CDT - 03/10/2025 10:10 AM CDT Surgery [facility] - Cardiac Transition Specialist [facility] [place] [address] Selene Duran MD Left Heart Cath 03/09/2025 6:03 PM CDT Anesthesia Event [facility] [address] [place] [address] Prakash De La Torre, Carlitos Flores, CAA 03/09/2025 5:45 PM CDT - 03/09/2025 7:28 PM CDT Surgery [facility] [address] [place] [address] Sedic, Vedrana, DMD EXTRACTION DENTAL (MULTIPLE) 2025 9:22 AM CDT - 2025 11:59 PM CDT Hospital Encounter [facility] - Cardiac Transition Specialist [facility] [place] [address] Pramod Torres DO Heis, Farah, MD Discharge Disposition: Home or Self Care 03/01/2025 9:44 PM CDT - 03/23/2025 3:36 PM CDT Hospital Encounter [facility] 8N ACUTE [address] [place] [address] Shira Harris MD Mayer, Joshua C, DO Wheeler, Joseph R, MD Eshetu, Nebiyu A, MD Lawrance, Christopher Paul, MD Cardiothoracic Surgery Discharge Disposition: Home Health Care [facility] 03/01/2025 Travel 03/01/2025 Telephone [facility] PHYS INTERNAL MED [address] [place] [phone] Shira Harris MD General (OSH transfer) 03/01/2025 Telephone [facility] PHYS INTERNAL MED [address] [place] [phone] Freddy Velazquez MD Hospital Admission from Last 3 Months Family History Medical History Relation Name Comments Renal Disease Father COPD - Chronic Obstructive Pulmonary Disease Mother Relation Name Status Comments Father Mother Social History Tobacco Use Types Packs/Day Years Used Date Smoking Tobacco: Never Smokeless Tobacco: Never Tobacco Cessation:Counseling Given: Not Answered Passive Exposure Comments:patient states he has never [...] and heating? Not hard at all 03/01/2025 [facility] - Occupational Stress [...] any time in the past 12 m [facility], were you homeless or living in a nursing home (including now)? No 03/01/2025 Sex and Gender Information Value Date Recorded Sex Assigned at Not on file Legal Sex Male 10:10 AM HALF SECTION IRONER Gender Identity Not on file Sexual Orientation Not on file Last Filed Vital Signs Vital Sign Reading Time Taken Comments Blood Pressure 155/108 05/01/2025 12:10 PM CDT Pulse 97 05/01/2025 12:10 PM CDT Temperature 36.4 C (97.6 F) 05/01/2025 12:03 PM CDT Respiratory Rate 27 05/01/2025 12:10 PM CDT Oxygen Saturation 94% 05/01/2025 12:10 PM CDT Inhaled Oxygen Concentration 21% 05/01/2025 1 2:10 PM CDT Weight 86.9 kg (191 lb 9.6 oz) 05/01/2025 10:18 AM CDT Height 167.6 cm (5' 6) 05/01/2025 10:18 AM CDT Body Mass Index 30.93 05/01/2025 10:18 AM CDT Plan of Treatment Upcoming Encounters Date Type Department Care Team (Late st Contact Info) Description 06/01/2025 9:00 AM HALF SECTION IRONER Video Visit [facility] - Infectious Disease [address] [place] [address] Yesica Cabello PA-C [address] [place] [address] Health Maintenance Due Date Last Done Comments [...] this topic Medical Devices Implanted Type Area Control Operator Flow Coat Device Identifier Shelf Expiration Date Model / Serial / Lot Ndl Sut 3 Blnt Cut Cbl Strl Spnl Ss Implanted:Qty: 1 on 03/15/2025 by Rahul Hernandez MD at [facility] N/A: Sternum [employer] 08/17/2029 [id number] / / [id number] Plate 6 Hl O Cncv Bone Lf Nonster Implanted:Qty: 1 on 03/15/2025 by Rahul Hernandez MD at [facility] N/A: Sternum [employer] 115.604.06 / / Screw 14mm Lck Nonster Bone Lf Implanted:Qty: 6 on 03/15/2025 by Rahul Hernandez MD at [facility] N/A: Sternum [employer] 100.035.14 / / Screw 16mm Lck Nonster Bone Lf Implanted:Qty: 6 on 03/15/2025 by Rahul Hernandez MD at [facility] N/A: Sternum [employer] 100.035.16 / / Screw 18mm Lck Nonster Bone Lf Implanted:Qty: 6 on 03/15/2025 by Rahul Hernandez MD at [facility] N/A: Sternum [employer] 100.035.18 / / Valve Mtrl 31mm Resilia - [id number] Implanted:Qty: 1 on 03/15/2025 by Rahul Hernandez MD at [facility] N/A: Mitral Valve [employer] Only 10/12/2029 [id number] / [id number] / Ndl Sut 3 Blnt Cut Cbl Strl Spnl Ss Implanted:Qty: 1 on 03/15/2025 by Rahul Hernandez MD at [facility] N/A: Sternum [employer] [id number] / / Plate Bone H 6 Hl Nonster Lf Implanted:Qty: 2 on 03/15/2025 by Rahul Hernandez MD at [facility] N/A: Sternum [employer] 115.102.06 / / Explanted Type Area Control Operator Flow Coat Device Identifier Shelf Expiration Date Model / Serial / Lot Plate Bone H 6 Hl Nonster Lf Explanted:Qty: 2 on 03/15/2025 by Rahul Hernandez MD at [facility] N/A: Mitral Valve [employer] 115.102.06 / / Description:no cost implant per rep; doc pay once program Plate 6 Hl O Cncv Bone Lf Nonster Explanted:Qty: 1 on 03/15/2025 by Rahul Hernandez MD at [facility] N/A: Mitral Valve [employer] 115.604.06 / / Description:no cost implant per rep; doc pay once program Screw 14mm Lck Nonster Bone Lf Explanted:Qty: 6 on 03/15/2025 by Rahul Hernandez MD at [facility] N/A: Mitral Valve [employer] 100.035.14 / / Description:no cost implant per rep; doc pay once program Screw 16mm Lck Nonster Bone Lf Explanted:Qty: 6 on 03/15/2025 by Rahul Hernandez MD at [facility] N/A: Mitral Valve [employer] 100.035.16 / / Description:no cost implant per rep; doc pay once program Screw 18mm Lck Nonster Bone Lf Explanted:Qty: 6 on 03/15/2025 by Rahul Hernandez MD at [facility] N/A: Mitral Valve [employer] 100.035.18 / / Description:no cost implant per rep; doc pay once program Procedures Procedure Name Priority Date/Time Associated Diagnosis Comments IR CENTRAL LINE REMOVAL Routine 05/01/2025 11:54 AM CDT Bacteremia Enterococcal bacteremia ECHO COMPLETE W CONTRAST Routine 04/18/2025 1:50 [...] stage 5, GFR less than 15 ml/min ([facility]) XR CHEST 1VW PORTABLE Routine 03/22/2025 4:27 [...] 2:42 PM CDT ACT PLUS - POCT ([facility]) Routine 03/15/2025 2:39 PM CDT FIBRINOGEN ACTIVITY STAT 03/15/2025 2 :34 PM CDT Mitral valve vegetation (HCC) PLATELET COUNT AUTO CITRATED BLOOD STAT 03/15/2025 2:33 PM CDT Mitral valve vegetation (HCC) ACT PLUS - POCT ([facility]) Routine 03/15/2025 2:07 PM CDT BLOOD GAS+COOX+LYTES+METAB ARTERIAL POCT Routine 03/15/2025 2:06 PM CDT PATHOLOGY TISSUE Routine 03/15/2025 1:53 PM CDT Mitral valve insufficiency, unspecified etiology BLOOD GAS+COOX+LYTES+METAB ARTERIAL POCT Routine 03/15/2025 1:30 PM CDT ACT PLUS - POCT ([facility]) Routine 03/15/2025 1:29 PM CDT BLOOD GAS+COOX+LYTES+METAB ARTERIAL POCT Routine 03/15/2025 1:15 PM CDT ACT PLUS - POCT ([facility]) Routine 03/15/2025 1:14 PM CDT ACT PLUS - POCT ([facility]) Routine 03/15/2025 1:04 PM CDT ACT PLUS - POCT ([facility]) Routine 03/15/2025 12:53 PM CDT BLOOD GAS+COOX+LYTES+METAB ARTERIAL POCT Routine 03/15/2025 12:52 PM CDT ACT PLUS - POCT ([facility]) Routine 03/15/2025 12:44 PM CDT BLOOD [...] Case Notes DOCTOR SEDIC WILL BE TO [facility] AND AVAILABLE TO OPERATE AT 1600. US RETROPERITONEAL COMPLETE Routine 03/09/2025 10:35 AM CDT CKD (chronic kidney disease) stage 5, GFR less than 15 ml/min ([facility]) CBC W AUTO DIFFERENTIAL AM Draw 03/09/2025 [...] CDT from Last 3 Months Results * IR Central Line Removal (05/01/2025 11:54 AM CDT) Anatomical Region Laterality Modality X-Ray Angiograph y 05/01/2025 1:35 PM CDT Narrative 05/01/2025 1:36 PM CDT PROCEDURE: IR CENTRAL LINE REMOVAL DATE/TIME OF EXAM: 05/01/2025 12:00 PM CLINICAL INFORMATION: None relevant/not provided if blank. Indication: R78.81: Bacteremia R78.81: Enterococcal bacteremia B95.2: Enterococcal bacteremia Additional History: COMPARISON: None. FLUOROSCOPY DOSE: 0 mGy Reference air kerma (ka,r). PROCEDURE: Horse Rider: Rigo Pabon Procedure : 1. Removal of tunneled central venous Powerline catheter. This patient was referred for removal of a tunneled central venous Powerline catheter which was no longer needed. Following informed consent the patient was taken to the angiography holding area where they were noted to have a right internal jugular tunneled central venous catheter. The existing dressing was removed, the skin was cleansed with chlorhexidine and sterile drapes were applied. Local anesthetic was infiltrated around the exit site and the area of the subcutaneous cuff. The exit site suture was removed and the using blunt and sharp dissection the catheter was freed from surrounding tissues and with traction was brought to the surface. Holding pressure at the venotomy site in the neck the catheter was removed in its entirety. Hemostasis was secured with pressure. A sterile occlusive dressing was then applied. The patient tolerated the procedure without difficulty. I was present throughout the procedure. > Interpreting Provider: Rigo Pabon MD on 05/01/2025 1:36 PM Procedure Note Rigo Pabon MD - 05/01/2025 PROCEDURE: IR CENTRAL LINE REMOVAL DATE/TIME OF EXAM: 05/01/2025 12:00 PM CLINICAL INFORMATION: None relevant/not provided if blank. Indication: R78.81: Bacteremia R78.81: Enterococcal bacteremia B95.2: Enterococcal bacteremia Additional History: COMPARISON: None. FLUOROSCOPY DOSE: 0 mGy Reference air kerma (ka,r). PROCEDURE: Horse Rider: Rigo Pabon Procedure : 1. Removal of tunneled central venous Powerline catheter. This patient was referred for removal of a tunneled central venous Powerline catheter which was no longer needed. Following informed consent the patient was taken to the angiographyholding area where they were noted to have a right internal jugular tunneled central venous catheter. The existing dressing was removed, the skin was cleansed with chlorhexidine and sterile drapes were applied. Local anesthetic was infiltrated around the exit site and the area of the subcutaneous cuff. The exit site suture was removed and the using bluntand sharp dissection the catheter was freed from surrounding tissues andwith traction was brought to the surface. Holding pressure at the venotomysite in the neck the catheter was removed in its entirety. Hemostasis was secured with pressure. A sterile occlusive dressing was then applied. The patient tolerated the procedure without difficulty. I was present throughout the procedure. > Interpreting Provider: Rigo Pabon MD on 05/01/2025 1:36 PM us Garcia Gil MD IR ORDERABLES Final Result * ECHO COMPLETE W CONTRAST (04/18/2025 1:50 [...] LV A2C EF 57.693 % [facility] CV [facility] I PACS LV A4C EF 55.932 [...] PACS LVOT VTI 21.179 cm [facility] CV [facility] I PACS LA size 4.765 cm SSM CV FUJ I PACS AV area pk trace 2.323 cm [facility] CV FUJI PACS AV area cont VTI 2.3 cm [facility] pk grad 10.202 mmHg SSM CV FU JI PACS AV mn grad 5.905 mmHg SSM CV FU JI PACS AV pk trace 159.706 cm/s SSM CV FUJ I PACS AV VTI 28.247 cm [facility] CV [facility] I PACS MV A pk trace [...] 1:02 PM Patient Status: O/P Study Site: [facility] Primary Location: [facility] EStudy Info Technical Quality: Adequate Exam [...] Provider: Rahul Hernandez Attending Physician: Rahul Hernandez Air Purifier Servicer: Ricardo White Left Ventricle The left ventricle [...] 1:02 PM Patient Status: O/P Study Site: [facility] Primary Location: [facility] EStudy Info Technical Quality: Adequate Exam [...] Provider: Rahul Hernandez Attending Physician: Rahul Hernandez Air Purifier Servicer: Ricardo Antwan White Left Ventricle The left ventricle is [...] LA Volume Index (BP A-L) 54 ml/m2 Report Signatures Finalized by Tyrell Michaels on [...] MD on 04/05/2025 12:33 AM Ofelia Mckee FLEXO PRESS OPERATOR-CHIEF DOG LICENSE INSPECTOR DIAGNOSTIC IMAGING OR DERABLES Final Result * APHERESIS/TRANSFUSION ORDER (03/24/2025 12:11 PM CDT) Narrative 03/24/2025 12:11 PM CDT Ordered by an unspecified provider. Scanned Document NURSING - VITAL SIGNS AND ASSES SMENT Final Result * (ABNORMAL) CALCIUM IONIZED WHOLE BLOOD (03/23/2025 12:54 AM CDT) Only the most recent of10 resultswithin the time period is included. Calcium Ionized 1.16 mmol/L 03/23/2025 1:17 AM CDT [facility] pH 7.41 7.35 - 7.45 pH 03/23/2025 1:17 AM T [facility] Ionized Calcium pH Adjusted 1.16(L) 1.19 - 1.34 mmol/L 03/23/2025 1:17 AM [facility] Blood BLOOD SPECIMEN / Unknown Lab Venipuncture / Unknown 03/23/2025 12:54 AM CDT 03/23/2025 1:12 AM CDT Mariya Botello PA-C LAB - CHEMISTRY ORDERABLES F inal Result [address] [address], [facility] [phone] * (ABNORMAL) PT-INR (03/23/2025 12:54 AM CDT) Only the most recent of8 resultswithin the time period is included. PT 15.9(H) 12.1 - 14.8 Seconds 03/23/2025 1:37 AM [facility] INR 1.3 See Comment 03/23/2025 1:37 AM [facility] Comment:The suggested therap eutic range for standard [...] O RDERABLES Final Result Performing Organization Address [facility] Co de Phone Number [address] [address], [facility] [phone] * (ABNORMAL) COMPREHENSIVE METABOLIC PANEL (03/23/2025 12:54 AM CDT) Only the most recent of22 resultswithin the time period is included. BUN 61(H) 7 - 26 mg/dL 03/23/2025 1:42 AM [facility] Creatinine 2.95(H) 0.71 - 1.16 mg/dL 03/23/2025 1:42 AM [facility] Sodium 135(L) 136 - 145 mmol/L 03/23/2025 1:42 AM [facility] Potassium 4.6(H) 3.5 - 4.5 mmol/L 03/23/2025 1:42 AM [facility] Chloride 102 98 - 107 mmol/L 03/23/2025 1:42 AM [facility] CO2 24 22 - 29 mmol/L 03/23/2025 1:42 AM [facility] Glucose 101(H) 70 - 99 mg/dL 03/23/2025 1:42 AM [facility] Calcium 9.0 8.4 - 10.2 mg/dL 03/23/2025 1:42 AM [facility] Protein Total 7.1 6.0 - 8.3 g/dL 03/23/2025 1:42 AM [facility] Albumin 3.2(L) 3.4 - 5.0 g/dL 03/23/2025 1:42 AM [facility] Bilirubin Total 0.2 0.2 - 1.2 mg/dL 03/23/2025 1:42 AM [facility] Alkaline Phosphatase 168(H) 40 - 150 U/L 03/23/2025 1:42 AM [facility] ALT 67(H) 5 - 55 U/L 03/23/2025 1:42 AM [facility] AST 43(H) 5 - 34 U/L 03/23/2025 1:42 AM [facility] Anion Gap 9 6 - 16 03/23/2025 1:42 AM [facility] BUN/Creatinine Ratio 21 7 - 23 03/23/2025 1:42 AM [facility] Osmolality Calculated 297(H) 275 - 295 mOsm/kg 03/23/2025 1:42 AM [facility] Albumin/Globulin Ratio 0.8(L) 1.1 - 2.3 03/23/2025 1:42 AM [facility] eGFR by CKD-EPI 23(L) >=90 mL/min/1.7 3 m2 03/23/2025 1:42 AM [facility] Comment:Estimated Glomerular Filtration Rate (eGFR) calculated using the CKD-EPI Creatinine Equation (2020), per the National Kidney Foundation and [place] [employer]ph[employer] recommendations. Blood BLOOD SPECIMEN / Unknown Lab Venipuncture / Unknown 03/23/2025 12:54 AM CDT 03/23/2025 1:16 AM [facility] us Rahul Hernandez MD LAB - CHEMISTRY ORD ERABLES Final Result [address] [address], [facility] [phone] * PHOSPHORUS BLOOD (03/23/2025 12:54 AM CDT) Only the most recent of23 resultswithin the time period is included. Phosphorus 3.7 2.8 - 5.1 mg/dL 03/23/2025 1:42 AM CDT [facility] Blood BLOOD SPECIMEN / Unknown Lab Venipuncture / Unknown 03/23/2025 12:54 AM CDT 03/23/2025 1:16 AM CDT Mariya Botello PA-C LAB - CHEMISTRY ORDERABLES F inal Result Performing Organization Address City/[facility]/ZIP Co de Phone Number [address] [address], [facility] [phone] * MAGNESIUM BLOOD (03/23/2025 12:54 AM CDT) Only the most recent of23 resultswithin the time period is included. Magnesium 2.0 1.6 - 2.6 mg/dL 03/23/2025 1:42 AM CDT [facility] Blood BLOOD SPECIMEN / Unknown Lab Venipuncture / Unknown 03/23/2025 12:54 AM CDT 03/23/2025 1:16 AM CDT Mariya Botello PA-C LAB - CHEMISTRY ORDERABLES F inal Result Performing Organization Address City/[facility]/ZIP Co de Phone Number [address] [address], [facility] [phone] * (ABNORMAL) CBC W/O DIFFERENTIAL (03/23/2025 12:53 AM CDT) Only the most recent of13 resultswithin the time period is included. WBC 12.0(H) 4.0 - 10.7 x10E9/L 03/23/2025 1:22 AM [facility] RBC Count 3.22(L) 4.30 - 5.80 x10E12/L 03/23/2025 1:22 AM [facility] Hemoglobin 9.1(L) 13.3 - 17.5 g/dL 03/23/2025 1:22 AM [facility] Hematocrit 29.0(L) 38.7 - 51.1 % 03/23/2025 1:22 AM [facility] MCV 90.1 80.0 - 98.0 fL 03/23/2025 1:22 AM [facility] MCH 28.3 26.7 - 33.6 pg 03/23/2025 1:22 AM [facility] MCHC 31.4(L) 31.7 - 36.3 g/dL 03/23/2025 1:22 AM [facility] RDW-CV 19.8(H) 11.3 - 14.8 % 03/23/2025 1:22 AM [facility] Platelet Count 334 150 - 420 x10E9/L 03/23/2025 1:22 AM [facility] MPV 10.2 7.8 - 11.4 fL 03/23/2025 1:22 AM [facility] Blood BLOOD SPECIMEN / Unknown Lab Venipuncture / Unknown 03/23/2025 12:53 AM CDT 03/23/2025 1:15 AM CDT Mariya Botello PA-C LAB - HEMATOLOGY ORDERABLES Final Result [facility] [address] [place] [address], [facility] [phone] * IR Central Line Insert Tunnel (03/22/2025 [...] less than 15 ml/min (HCC) Additional History: Horse Rider: Garcia Gil MD COMPARISON: None. FLUOROSCOPY DOSE: [...] disease) stage 5, GFR less than 15 ml/min([facility]) Additional History: Horse Rider: Garcia Gil MD COMPARISON: None. FLUOROSCOPY DOSE: [...] response to care. Intra-service sedation start time [id number] and end time was 1228 during which [...] DATE/TIME OF EXAM: 03/22/2025 4:27 AM, LOCATION [facility] INDICATION: I34.0: Mitral valve insufficiency, unspecified etiology [...] spine. Report dictated by Jamie Rucker MD, (radiology orderly). > Dictated by [employer] Facilities Operator I, Jamie Barriga MD have personally reviewed and interpreted this examination/study. > Interpreting Provider: Jamie Barriga MD on 03/22/2025 7:08 PM Procedure Note Jamie Barriga MD - 03/22/2025 PROCEDURE: XR CHEST 1VW PORTABLE, DATE/TIME OF EXAM: 03/22/2025 4:27 AM, LOCATION [facility] INDICATION: I34.0: Mitral valve insufficiency, unspecified etiology [...] spine. Report dictated by Jamie Rucker MD, (radiology orderly). > Dictated by [employer] Facilities Operator I, Jamie Barriga MD have personally reviewed and interpreted this examination/study. > Interpreting Provider: Jamie Barriga MD on 03/22/2025 7:08 PM Buffy Jang FLEXO PRESS OPERATOR-CHIEF DOG LICENSE INSPECTOR DIAGNOSTIC IMAGI NG ORDERABLES Final Result * EKG 12-Lead (03/20/2025 12:00 PM CDT) Only the most recent of7 resultswithin the time period is included. Ventricular Rate 125 BPM [facility] Atrial Rate 125 BPM [facility] QRS Duration ms 90 ms [facility] Q-T Interval ms 336 ms [facility] QTC Calculation (Bezet) 484 ms [facility] Calculated P [place] 55 degrees [facility] MUSE Calculated R [place] 69 degrees [facility] MUSE Calculated T [place] 55 degrees [facility]USE Interpretation EKG SINUS TACHYCARDIA NONSPECIFIC ST ABNORMALITY ABNORMAL ECG WHEN COMPARED WITH ECG OF 20-MAR-2025 11:59, SINUS TACHYCARDIA HAS REPLACED JUNCTIONAL RHYTHM Confirmed by PRASAD LOUIS MD ([id number]) on 03/26/2025 10:12:19 PM [facility] MUSE 03/20/2025 12:0 0 PM CDT 03/26/2025 10:12 PM CDT us Yousuf Chaudhari PA-C ECG ORDERABLES Edited Resu lt - Final [facility] MUSE * (ABNORMAL) BASIC METABOLIC PANEL (CALCIUM TOTAL) (03/19/2025 8:44 PM CDT) Only the most recent of3 resultswithin the time period is included. BUN 54(H) 7 - 26 mg/dL 03/19/2025 9:27 PM [facility] Creatinine 2.92(H) 0.71 - 1.16 mg/dL 03/19/2025 9:27 PM [facility] Sodium 134(L) 136 - 145 mmol/L 03/19/2025 9:27 PM [facility] Potassium 3.7 3.5 - 4.5 mmol/L 03/19/2025 9:27 PM [facility] Chloride 101 98 - 107 mmol/L 03/19/2025 9:27 PM [facility] CO2 22 22 - 29 mmol/L 03/19/2025 9:27 PM [facility] Glucose 122(H) 70 - 99 mg/dL 03/19/2025 9:27 PM [facility] Calcium 8.7 8.4 - 10.2 mg/dL 03/19/2025 9:27 PM [facility] Anion Gap 11 6 - 16 03/19/2025 9:27 PM [facility] BUN/Creatinine Ratio 18 7 - 23 03/19/2025 9:27 PM [facility] Osmolality Calculated 294 275 - 295 mOsm/kg 03/19/2025 9:27 PM [facility] eGFR by CKD-EPI 23(L) >=90 mL/min/1.7 3 m2 03/19/2025 9:27 PM CDT [facility] Comment:Estimated Glomerular Filtration Rate (eGFR) calculated using the CKD-EPI Creatinine Equation (2020), per the National Kidney Foundation and [place] [employer]ph[employer] recommendations. Blood BLOOD SPECIMEN / Unknown Venipuncture / Unknown 03/19/2025 8:44 PM CDT 03/19/2025 8:58 PM CDT us Nayan Hernandez FLEXO PRESS OPERATOR-CHIEF DOG LICENSE INSPECTOR LAB - CHEMISTRY ORD ERABLES Final Result [address] [address], [place] [phone] * GLUCOSE - POINT OF CARE (03/19/2025 8:22 AM CDT) Only the most recent of23 resultswithin the time period is included. Pathologist [facility] Glucose WB/POC 89 70 - 99 mg/dL 03/19/2025 8:27 AM T [facility] Specimen Type Arterial/C apillary 03/19/2025 8:27 AM T [facility] Blood BLOOD SPECIMEN / Unknown 03/19/2025 8:22 AM CDT 03/19/2025 8:27 AM CDT us Rahul Hernandez MD LAB - POINT OF CARE ORDERABLES Final Result [address] [address], [place] [phone] * (ABNORMAL) HEPATIC FUNCTION PANEL (03/19/2025 4:28 AM CDT) Protein Total 6.2 6.0 - 8.3 g/dL 025 7:34 AM T [facility] Albumin 3.1(L) 3.4 - 5.0 g/dL 03/19/2025 7:34 AM T [facility] Bilirubin Total 0.4 0.2 - 1.2 mg/dL 02/19 7:34 AM CDT [facility] Bilirubin Conjugated 0.2 0.1 - 0.5 mg/dL 03/19/2025 7:34 AM T [facility] Bilirubin Unconjugated 0.2 Unconjugated Bilirubin is a calculated value: Reference ranges have not been established. mg/dL 03/19/2025 7:34 AM CDT [facility] Alkaline Phosphatase 198(H) 40 - 150 U/L 03/19/2025 7:34 AM T [facility] ALT 166(H) 5 - 55 U/L 03/19/2025 7:34 AM T [facility] AST 173(H) 5 - 34 U/L 03/19/2025 7:34 AM T [facility] Albumin/Globulin Ratio 1.0(L) 1.1 - 2.3 03/19/2025 7:34 AM T [facility] Blood BLOOD SPECIMEN / Unknown Venipuncture / Unknown 03/19/2025 4:28 AM CDT 03/19/2025 4:38 AM CDT us Jennyfer Dallas DO LAB - CHEMISTRY ORDERABLES Final Result [address] [address], [facility] [phone] * TRANSFUSE RED BLOOD CELL LEUKOREDUCED UNIT(S) (03/16/2025 10:21 PM CDT) us Rahul Hernandez MD NURSING - BLOOD PRO D TRANSFUSION Final Result * TYPE + SCREEN PANEL (03/16/2025 5:39 PM CDT) Only the most recent of3 resultswithin the time period is included. Antibody Screen NEG 6:34 PM CDT [facility] ABO Rh O POS 03/16/2025 6:34 PM CDT [facility] Blood Bank BLOOD SPECIMEN / Unknown Venipuncture / Unknown 03/16/2025 5:39 PM CDT 03/16/2025 5:51 PM CDT Rahul Hernandez MD LAB - BLOOD BANK OR DERABLES Final Result Performing Organization Address City/[facility]/ZIP Co de Phone Number [facility] [address] [place] [address], [facility] [phone] * TRANSFUSE RED BLOOD CELL LEUKOREDUCED UNIT(S) (03/16/2025 11:36 AM CDT) Nayan Hernandez FLEXO PRESS OPERATOR-CHIEF DOG LICENSE INSPECTOR NURSING - BLOOD PRO D TRANSFUSION Final Result * (ABNORMAL) SVO2 FOR RECALIBRATION (03/16/2025 3:11 AM CDT) Only the most recent of4 resultswithin the time period is included. SVO2 for Recalibration 48.1(L) 66.0 - 77.0 % 03/16/2025 3:20 AM CDT [facility] Blood BLOOD SPECIMEN / Unknown Venipuncture / Unknown 03/16/2025 3:11 AM CDT 03/16/2025 3:16 AM CDT Mariya Botello PA-C LAB - CHEMISTRY ORDERABLES F inal Result Performing Organization Address City/[facility]/ZIP Co de Phone Number [facility] [address] [place] [address], [facility] [phone] * HEMOGLOBIN A1C (03/16/2025 3:11 AM CDT) Hemoglobin A1c 5.3 <=5.6 % 03/16/2025 10:31 AM CDT [facility] Estimated Average Glucose 105 mg/dL 03/16/2025 10:31 AM CDT [facility] Comment: HbA1c Interpretation: Normal : < 5.7% Pre-diabetes: 5.7-6.4% Diabetes: Equal to or greater than 6.5% Test results diagnostic of diabetes should be repeated for confirmation. Treatment target values recommended by ADA and other clinical organizations should be used to evaluate metabolic control in patients. Reference: [place] [employer], Standards of Care in Diabetes -2020 In patients 70 years and older consider HbA1c target range of 7.0-7.5% (Reference: Costa A, et al. JAMDA. 2012) The Sebia assay for the measurement of HbA1c is a National Glycohemoglobin Standardization Program (NGSP) certified method. Blood BLOOD SPECIMEN / Unknown Venipuncture / Unknown 03/16/2025 3:11 AM CDT 03/16/2025 4:45 AM CDT us Mariya Botello PA-C LAB - CHEMISTRY ORDERABLES F inal Result Performing Organization Address [facility] Co de Phone Number [address] [address], [facility] [phone] * (ABNORMAL) LACTIC ACID BLOOD (03/16/2025 3:11 AM CDT) Only the most recent of3 resultswithin the time period is included. Lactic Acid-Stat 3.7(HH) <=2.0 mmol/L 03/16/2025 4:02 AM CDT [facility] Blood BLOOD SPECIMEN / Unknown Venipuncture / Unknown 03/16/2025 3:11 AM CDT 03/16/2025 3:21 AM CDT Nayan Hernandez APRN-CHIEF DOG LICENSE INSPECTOR LAB - CHEMISTRY ORD ERABLES Final Result Performing Organization Address [facility] de Phone Number [address] [address], [facility] [phone] * (ABNORMAL) BLOOD GASES ART + COOX PANEL (03/16/2025 3:11 AM CDT) Only the most recent of4 resultswithin the time period is included. pH Arterial 7.38 7.35 - 7.45 pH 03/16/2025 3:21 AM CDT [facility] pO2 Arterial 104(H) 80 - 100 mmHg 03/16/2025 3:21 AM CDT [facility] pCO2 Arterial 31(L) 35 - 45 mmHg 3:21 AM CDT [facility] HCO3 Arterial 18.3(L) 20.0 - 30.0 mmol/L 03/16/2025 3:21 AM [facility] BE Arterial -6.1(L) -2.0 - 2.0 mmol/L 03/16/2025 3:21 AM [facility] Oxyhemoglobin Arterial 96.3 % 03/16/2025 3:21 AM [facility] Dexoyhemoglobin (HHB) % <1.0 % 03/16/2025 3:21 AM [facility] Methemoglobin 1.3 0.0 - 2.0 % 03/16/2025 3:21 AM [facility] Carboxyhemoglobin 1.8 0.0 - 2.0 % 2024 3:21 AM [facility] O2 Content Arterial 10.6 Interpret within clinical context ml/dL 03/16/2025 3:21 AM [facility] Hemoglobin by COOX 7.7(L) 12.0 - 17.6 g/dL 03/16/2025 3:21 AM [facility] O2 Saturation Arterial 99 90 - 100 % 03/16/2025 3:21 AM [facility] FI O2 Arterial 28.0 % 03/16/2025 3:21 AM [facility] Blood, arterial ARTERIAL BLOOD SPECIMEN / Unknown Arterial Puncture / Unknown 03/16/2025 3:11 AM CDT 03/16/2025 3:[address] [facility] - 03/16/2025 3:21 AM [facility] Carboxyhemoglobin Normal Concentration: Non-smokers: 0-2%; Smokers: 0-9%; Toxic: >20% us Nayan Hernandez FLEXO PRESS OPERATOR-CHIEF DOG LICENSE INSPECTOR LAB - BLOOD GASES O RDERABLES Final Result [address] [address], [place] [phone] * TRANSFUSE RED BLOOD CELL LEUKOREDUCED UNIT(S) [...] MD on 03/16/2025 2:31 AM Mariya Botello PA-Raissa DIAGNOSTIC IMAGING ORDERABLE S Final Result * [...] - 400 mg/dL 03/15/2025 6:03 PM CDT [facility] Blood BLOOD SPECIMEN / Unknown Venipuncture / Unknown 03/15/2025 5:32 PM CDT 03/15/2025 5:35 PM CDT Mariya Botello PA-C LAB - COAGULATION ORDERABLES Final Result [facility] [address] [place] [address], [facility] [phone] * PTT (03/15/2025 5:32 PM CDT) Only the most recent of2 resultswithin the time period is included. APTT 29.8 23.0 - 38.4 Seconds 03/15/2025 6:05 PM CDT [facility] Comment:Suggested therapeuti c range for full dose I.V. unfractionated heparin therapy for venous thromboembolism is 71 to 109 seconds. Blood BLOOD SPECIMEN / Unknown Venipuncture / Unknown 03/15/2025 5:32 PM CDT 03/15/2025 5:35 PM CDT Mariyaquynh GARRETT-Raissa LAB - COAGULATION ORDERABLES Final Result [address] [address], [facility] [phone] * (ABNORMAL) DIFFERENTIAL MANUAL (03/15/2025 5:32 PM CDT) Neutrophil % 90(H) 41 - 74 % 03/15/2025 6:09 PM CDT [facility] Lymphocyte % 6(L) 17 - 47 % 03/15/2025 6:09 PM T [facility] Monocyte % 4 3 - 11 % 03/15/2025 6:09 PM T [facility] Neutrophil Absolute 19.53(H) 1.60 - 7.50 x10E9/L 03/15/2025 6:09 PM T [facility] Lymphocyte Absolute 1.30 1.00 - 4.40 x10E9/L 03/15/2025 6:09 PM T [facility] Monocyte Absolute 0.87 0.15 - 1.00 x10E9/L 03/15/2025 6:09 PM [facility] RBC Morphology REVIEWED 03/15/2025 6:09 PM [facility] Large Platelets PRESENT(A) (none) 03/15/2025 6:09 PM [facility] Blood BLOOD SPECIMEN / Unknown Venipuncture / Unknown 03/15/2025 5:32 PM CDT 03/15/2025 5:38 PM CDT Mariya Botello PA-C LAB - HEMATOLOGY ORDERABLES Final Result [address] [address], [facility] [phone] * (ABNORMAL) CBC W AUTO DIFFERENTIAL (03/15/2025 5:32 PM CDT) Only the most recent of14 resultswithin the time period is included. WBC 21.7(H) 4.0 - 10.7 x10E9/L 03/15/2025 6:09 PM [facility] RBC Count 2.71(L) 4.30 - 5.80 x10E12/L 03/15/2025 6:09 PM [facility] Hemoglobin 7.9(L) 13.3 - 17.5 g/dL 03/15/2025 6:09 PM [facility] Hematocrit 24.0(L) 38.7 - 51.1 % 03/15/2025 6:09 PM [facility] MCV 88.6 80.0 - 98.0 fL 03/15/2025 6:09 PM [facility] MCH 29.2 26.7 - 33.6 pg 03/15/2025 6:09 PM [facility] MCHC 32.9 31.7 - 36.3 g/dL 03/15/2025 6:09 PM [facility] RDW-CV 15.9(H) 11.3 - 14.8 % 03/15/2025 6:09 PM [facility] Platelet Count 251 150 - 420 x10E9/L 03/15/2025 6:09 PM [facility] MPV 9.5 7.8 - 11.4 fL 03/15/2025 6:09 PM [facility] Blood BLOOD SPECIMEN / Unknown Venipuncture / Unknown 03/15/2025 5:32 PM CDT 03/15/2025 5:38 PM CDT Mariya Botello PA-C LAB - HEMATOLOGY ORDERABLES Final Result [facility] [address] [place] [address], [facility] [phone] * CULTURE FUNGUS OTHER+FUNGUS SMEAR (03/15/2025 5:06 PM CDT) Culture No fungus isolated LAVELLE 04/10/2025 7:07 AM CDT [facility] Fungus Stain No yeast or hyphae seen 04/10/2025 7:07 AM CDT [facility] Microbiology TISSUE SPECIMEN / Unknown Collection / Unknown 03/15/2025 5:06 PM CDT 03/15/2025 5:06 PM CDT Rahul Hernandez MD LAB - MICROBIOLOGY ORDERABLES Final Result [facility] [address] [place] [address], [facility] [phone] * CULTURE WOUND+GRAM STAIN (03/15/2025 5:06 PM CDT) Culture No growth [place]AV[place]LE 03/19/2025 1:10 PM CDT [facility] Gram Stain Light Polymorphonuclear cells 03/19/2025 1:10 PM CDT [facility] Gram Stain No organisms seen 025 1:10 PM CDT [facility] Microbiology TISSUE SPECIMEN / Unknown Collection / Unknown 03/15/2025 5:06 PM CDT 03/15/2025 5:06 PM CDT Rahul Hernandez MD LAB - MICROBIOLOGY ORDERABLES Final Result Performing Organization Address [facility]/ZIP Co de Phone Number [facility] [address] [place] [address], [facility] [phone] * CULTURE AFB+SMEAR (03/15/2025 5:06 PM CDT) Culture No acid-fast bacillus isolated 04/24/2025 7:53 AM CDT [facility] AFB Smear No acid-fast bacilli seen 04/24/2025 7:53 AM CDT [facility] Microbiology TISSUE SPECIMEN / Unknown Collection / Unknown 03/15/2025 5:06 PM CDT 03/15/2025 5:06 PM CDT Rahul Hernandez MD LAB - MICROBIOLOGY ORDERABLES Final Result Performing Organization Address City/[facility]/ZIP Co de Phone Number [facility] [address] [place] [address], [facility] [phone] * CULTURE ANAEROBE (03/15/2025 5:06 PM CDT) Culture No anaerobic organisms isolated [place]LE 03/20/2025 12:08 PM CDT [facility] Microbiology TISSUE SPECIMEN / Unknown Collection / Unknown 03/15/2025 5:06 PM CDT 03/15/2025 5:06 PM CDT Rahul Hernandez MD LAB - MICROBIOLOGY ORDERABLES Final Result [facility] [address] [place] [address], [facility] [phone] * TRANSFUSE FRESH FROZEN PLASMA UNIT(S) (03/15/2025 4:28 PM CDT) Result [facility] Rahul Hernandez MD NURSING - BLOOD PRO [...] were not saved. I personally performed. CPT 27277 with bilateral modifier. Alexa Page MD GENERAL [...] 7.35 - 7.45 pH 03/15/2025 4:00 PM [facility] pO2 Arterial 384(H) 80 - 100 mmHg 03/15/2025 4:00 PM [facility] pCO2 Arterial 41 35 - 45 mmHg 4:00 PM [facility] HCO3 Arterial 22.1 20.0 - 30.0 mmol/L 03/15/2025 4:00 PM [facility] BE Arterial -3.4(L) -2.0 - 2.0 mmol/L 03/15/2025 4:00 PM [facility] Oxyhemoglobin Arterial 97.9 % 03/15/2025 4:00 PM [facility] Dexoyhemoglobin (HHB) % <1.0 % 03/15/2025 4:00 PM [facility] Methemoglobin 1.1 0.0 - 2.0 % 03/15/2025 4:00 PM [facility] Carboxyhemoglobin 1.0 0.0 - 2.0 % 2024 4:00 PM [facility] Comment:Carboxyhemoglobin No rmal Concentration: Non-smokers: 0-2%; Smokers: 0- 9%; Toxic: >20% O2 Content Arterial 13.2 Interpret within clinical context ml/dL 03/15/2025 4:00 PM [facility] Hemoglobin by COOX 8.8(L) 12.0 - 17.6 g/dL 03/15/2025 4:00 PM [facility] O2 Saturation Arterial 100 90 - 100 % 03/15/2025 4:00 PM [facility] Sodium Whole Blood 138 135 - 145 mmol/L 03/15/2025 4:00 PM [facility] Potassium Whole Blood 4.1 3.5 - 5.5 mmol/L 03/15/2025 4:00 PM [facility] Chloride WB 107 78 - 107 mmol/L 03/15/2025 4:00 PM [facility] Calcium Ionized 1.36 mmol/L 4:00 PM [facility] Ionized Calcium pH Adjusted 1.33 1.19 - 1.34 mmol/L 03/15/2025 4:00 PM [facility] Anion Gap (AG) Arterial 9 6 - 16 mmol/L 03/15/2025 4:00 PM [facility] Glucose WB 193(H) 70 - 99 mg/dL 03/15/2025 4:00 PM [facility] Lactic Acid Whole Blood 1.8 <=2.0 mmol/L 03/15/2025 4:00 PM [facility] Blood, arterial ARTERIAL BLOOD SPECIMEN / Unknown 03/15/2025 4:00 PM CDT 03/15/2025 4:00 PM [facility] us Nebiyu A Eshetu MD LAB - POINT OF CARE ORDERABLE S Final Result [address] [address], [place] [phone] * TRANSFUSE RED BLOOD CELL LEUKOREDUCED UNIT(S) (03/15/2025 3:30 PM CDT) us Rahul Hernandez MD NURSING - BLOOD PRO D TRANSFUSION Final Result * ACT PLUS - POCT ([facility]) (03/15/2025 3:17 PM CDT) Only the most recent of8 resultswithin the time period is included. [facility] ACT PLUS 112 See result comments sec 03/15/2025 3:21 PM CDT [facility] Blood BLOOD SPECIMEN / Unknown 03/15/2025 3:17 PM CDT 03/15/2025 3:21 PM CDT Narrative [facility] - 03/15/2025 3:21 PM CDT ACT+ Therapeutic ranges for the ACT+ test in surgery areas are: Greater than (>) 360 seconds for surgical patients Greater than (>) 450 seconds for surgical bypass patients Cornelia Serra MD LAB - COAGULATION ORDERABLES Final Result Performing Organization Address City/[facility]/ZIP Co de Phone Number [address] [address], [facility] [phone] * (ABNORMAL) TEG 6 GLOBAL HEMOSTASIS WITH HEPARIN NEUTRALIZATION (03/15/2025 3:10 PM CDT) Pathologist [facility] CITRATED KAOLIN R (CK-R REACTION TIME) 5.4 4.6 - 9.1 min 03/15/2025 4:11 PM CDT [facility] CITRATED KAOLIN MA (CK-MA MAX AMPLITUDE) 70.3(H) 52.0 - 69.0 mm 03/15/2025 4:11 PM CDT [facility] CITRATED KAOLIN HEPARINASE R ( CKH R REACTION TIME) 4.7 4.3 - 8.3 min 03/15/2025 4:11 PM CDT [facility] CITRATED KAOLIN HEPARINASE LY30 ([facility] LY30 LYSIS) 0.0 0.0 - 3.2 % 03/15/2025 4:11 PM CDT [facility] CITRATED RAPIDTEG HEPARINASE MA ( [facility] MA MAX AMPLITUDE) 69.5(H) 53.0 - 69.0 mm 03/15/2025 4:11 PM CDT [facility] CITRATED FUCTIONAL FIBRINOGEN HEPARINASE ( [facility] MAX AMPLITUDE) 39.1(H) 15.0 - 34.0 mm 03/15/2025 4:11 PM CDT [facility] Blood BLOOD SPECIMEN / Unknown 03/15/2025 3:10 PM CDT 03/15/2025 3:18 PM CDT Alexa Page MD LAB - HEMATOLOGY ORDERABL ES Final Result Performing Organization Address City/[facility]/ZIP Co de Phone Number [address] [address], [facility] [phone] * PLATELET COUNT AUTO CITRATED BLOOD (03/15/2025 2:33 PM CDT) Platelet Count Citrated 215 150 - 420 x10E9/L 03/15/2025 3:49 PM CDT [facility] Blood BLOOD SPECIMEN / Unknown Venipuncture / Unknown 03/15/2025 2:33 PM CDT 03/15/2025 2:33 PM CDT Narrative [facility] - 03/15/2025 3:49 PM CDT This test was developed and its performance characteristics determined by the clinical laboratories of [facility] and [facility]. It has not been cleared and approved by the [place] Food and Drug Administration. us Alexa Page MD LAB - HEMATOLOGY ORDERABL ES Final Result [address] [address], [place] [phone] * PATHOLOGY TISSUE (03/15/2025 1:53 PM CDT) Case Report Surgical Pathology Report Case: [id number] Authorizing Provider: Rahul Hernandez Collected: 03/15/2025 01:53 PM MD Tyrell Ordering Location: [facility] Received: 03/16/2025 05:08 AM [...] are no vegetations or calcific nodules present. Director On Air sections are submitted in a single cassette labeled A1. RB 03/17/2025 3:58 PM CDT [facility] Pathologist Location at [facility] 03/17/2025 3:58 PM CDT [facility] Disclaimer The performance characteristics of all immunohistochemical and indirect immunofluorescence stains (if any) cited in this report were determined by the Histopathology Laboratory of [facility]. Some of these tests were developed by [...] attending (teaching) pathologist. 03/17/2025 3:58 PM CDT [facility] Embedded Images 03/17/2025 3:58 PM CDT [facility] Resection without Tumor ENTIRE MITRAL VALVE / Unknown 03/15/2025 1:53 PM CDT 03/16/2025 5:08 AM CDT Comment:Pre-op diagnosis: mitral valve regurgitation Rahul Hernandez MD LAB - PATHOLOGY/CYT OLOGY ORDERABLES Final Result [facility] [address] [phone] * PA CATH PERFORMABLE, INTRODUCER (03/15/2025 12:19 [...] Event Date/Time: 03/15/2025 11:38 AM Procedure: intubation (30855) Procedure Section: Sedation: under general anesthesia. Indications [...] Time: 03/15/2025 11:32 AM Procedure: Arterial Line (96077) Procedure Section Indications: continuous blood pressure monitoring. [...] See Separate Report 03/15/2025 9:31 AM CDT [facility] Other MISCELLANEOUS SAMPLES / Unknown 03/15/2025 8:06 AM CDT 03/15/2025 8:07 AM CDT Rahul Hernandez MD LAB - BLOOD GASES O RDERABLES Final Result [facility] [address] [place] [id number], [place] [phone] * BLOOD GAS ART+LYTES+METAB+COOX POC NOTIF (03/15/2025 8:06 AM CDT) Comment Notification Label Only - See Separate Report 03/15/2025 9:31 AM CDT [facility] Other MISCELLANEOUS SAMPLES / Unknown 03/15/2025 8:06 AM CDT 03/15/2025 8:07 AM CDT Rahul Hernandez MD LAB - BLOOD GASES O RDERABLES Final Result [address] [address], [facility] [phone] * ECHO ANES SINTIA INTRAOP (03/15/2025 6:23 [...] AM Patient Status: I/P Study Site: [facility] Primary Location: [facility] Info Exam Type: ECHO ANES SINTIA INTRAOP [...] AM Patient Status: I/P Study Site: [facility] Primary Location: [facility] EStudy Info Exam Type: ECHO ANES [...] UNIT(S) (03/14/2025 5:37 PM CDT) Ofelia Mckee FLEXO PRESS OPERATOR-CHIEF DOG LICENSE INSPECTOR NURSING - BLOOD PROD TRANSFUSION Final Result * PREPARE (CROSSMATCH) RBC UNIT(S), 1 Units (03/14/2025 5:21 AM CDT) Only the most recent of6 resultswithin the time period is included. Unit Description N/A [facility] BLOOD BANK LAB Blood Bank BLOOD SPECIMEN / Unknown 03/14/2025 5:21 AM CDT 03/14/2025 5:53 AM CDT Rahul Hernandez MD LAB - BLOOD BANK OR DERABLES Final Result [facility] BLOOD BANK LAB [address] [place] [address], [facility] [phone] * PREPARE PLATELET PHERESIS UNIT(S), 2 Units (03/14/2025 5:21 AM CDT) Only the most recent of2 resultswithin the time period is included. Unit Description LR PLT Phere B7 [facility] BLOOD BANK LAB Unit ABO O [facility] BLOOD [facility] LAB Unit Rh POS [facility] BLOOD BANK LAB Product Number P27 [facility] B LOOD BANK LAB Unit Donor # [id number] [facility] BLOOD BANK LAB Unit Status transfused [facility] BLO OD BANK LAB Product Code [id number] [facility] BLO OD BANK LAB Blood Type Barcode 5100 [facility] BLOOD [facility]ANK LAB Expiration Date [id number] S BLOOD BANK LAB Unit Description LR PLT Phere B7 [facility] BLOOD BANK LAB Unit ABO O [facility] BLOOD BANK LAB Unit Rh POS [facility] BLOOD BANK LAB Product Number P27 [facility] B LOOD BANK LAB Unit Donor # [id number] [facility] BLOOD BANK LAB Unit Status released [facility] BLOO D BANK LAB Product Code [id number] [facility] BLO OD BANK LAB Blood Type Barcode 5100 [facility] BLOOD BANK LAB Expiration Date [id number] S BLOOD BANK LAB Blood Bank BLOOD SPECIMEN / Unknown 03/14/2025 5:21 AM CDT 03/14/2025 5:53 AM CDT Rahul Hernandez MD LAB - BLOOD BANK OR DERABLES Final Result [facility] BLOOD BANK LAB [address] [place] [address], [facility] [phone] * PREPARE FFP UNIT(S), 4 Units (03/14/2025 5:21 AM CDT) Only the most recent of2 resultswithin the time period is included. Unit Description Liquid Plasma [facility] BLOOD BANK LAB Unit ABO A [facility] BLOOD BANK LAB Unit Rh POS [facility] BLOOD B[facility] Product Number [id number] [facility] B LOOD BANK LAB Unit Donor # [id number] [facility] Unit Status released [facility] Product Code [id number] [facility] BLO OD BANK LAB Blood Type Barcode 6200 [facility] BLOOD BANK LAB Expiration Date [id number] [facility] BLOOD BANK LAB Unit Description Liquid Plasma [facility] BLOOD BANK LAB Unit ABO A [facility] BLOOD BANK LAB Unit Rh POS [facility] BLOOD BANK LAB Product Number E2457 [facility] B LOOD BANK LAB Unit Donor # [id number] [facility] BLOOD BANK LAB Unit Status transfused [facility] BLO OD BANK LAB Product Code [id number] [facility] OD BANK LAB Blood Type Barcode 6200 [facility] BLOOD BANK LAB Expiration Date [id number] S BLOOD BANK LAB Blood Bank BLOOD SPECIMEN / Unknown 03/14/2025 5:21 AM CDT 03/14/2025 5:53 AM CDT us Rahul Hernandez MD LAB - BLOOD BANK OR DERABLES Final Result [facility] BLOOD BANK LAB [address] [place] [address] [phone] * (ABNORMAL) URINALYSIS REFLEX MICROSCOPIC REFLEX CULTURE (03/13/2025 9:10 AM [facility]) Only the most recent of2 resultswithin the time period is included. Color UA Colorless(A) Yellow, Straw 03/13/2025 9:50 AM [facility] Clarity UA Clear Clear 03/13/2025 9:50 AM [facility] Glucose UA 1+(A) Normal 03/13/2025 9:50 AM [facility] Bilirubin UA Negative Negative 03/13/2025 9:50 AM [facility] Ketone UA Negative Negative 03/13/2025 9:50 AM [facility] Specific [place] UA 1.012 1.005 - 1.030 03/13/2025 9:50 AM [facility] Blood UA Negative Negative 03/13/2025 9:50 AM [facility] pH UA 6.5 5.0 - 8.0 03/13/2025 9:50 AM [facility] Protein UA 1+(A) Negative 03/13/2025 9:50 AM [facility] Urobilinogen UA Normal Normal mg/dL 03/13/2025 9:50 AM [facility] Nitrite UA Negative Negative 03/13/2025 9:50 AM [facility] Leukocyte Esterase UA Negative Negative 03/13/2025 9:50 AM [facility] RBC UA 0-2 0 - 5 # /hpf 03/13/2025 9:50 AM [facility] WBC UA 0-5 0 - 5 # /hpf 03/13/2025 9:50 AM [facility] Bacteria UA None Seen None Seen 03/13/2025 9:50 AM [facility] Squamous Epithelial Cells None Seen 0 - 5 /hpf 03/13/2025 9:50 AM [facility] Mucus UA 1+ /LPF 03/13/2025 9:50 AM [facility] Reflex Status Culture not indicated 03/13/2025 9:50 AM [facility] Urine URINE SPECIMEN OBTAINED BY CLEAN CATCH PROCEDURE / Unknown Collection / Unknown 03/13/2025 9:10 AM CDT 03/13/2025 9:19 AM CDT Narrative [facility] - 03/13/2025 9:50 AM CDT Ofeliabita Mckee FLEXO PRESS OPERATOR-CHIEF DOG LICENSE INSPECTOR LAB - URINALYSIS ORDE RYAN Final Result [facility] [address] [place] [address], [facility] [phone] * BLOOD TYPE VERIFICATION (03/10/2025 10:02 PM CDT) ABO Rh O POS 03/10/2025 10:56 PM CDT [facility] BLOOD BANK LAB Blood Bank BLOOD SPECIMEN / Unknown Lab Venipuncture / Unknown 03/10/2025 10:02 PM CDT 03/10/2025 10:11 PM CDT Yousuf Chaudhari PA-C LAB - BLOOD BANK ORDERABLES Final Result [facility] BLOOD BANK LAB [address] [place] [address], [place] [phone] * CT Chest Wo Contrast (03/10/2025 2:43 [...] indicated. > Dictated by Nick Jay MD, (radiology orderly). > Dictated by [employer] Fac[employer] Operator IJen MD have personally reviewed and interpreted this examination/study. 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 > Dictated by Nick Jay MD, (radiology orderly). > Dictated by [employer] Fac[employer] Operator I, Jen Thomson MD have personally [...] PMHx HTN, COPD, CKD, GERD presented to [facility] as OSH transfer for CTS evaluation [...] medications. - Endocarditis plan per primary team. us Adalberto Arroyo MD CV CARDIAC CATH CUPID PROCS Final Result * ETT LINE PERFORMABLE (03/09/2025 6:28 PM CDT) Narrative Adalberto Farmer MD - 03/09/2025 6:28 PM CDT Adalberto Farmer MD 03/09/2025 6:28 PM Endotracheal Tube Placement: Patient Location: OR. Intubation Event Date/Time: 03/09/2025 6:17 PM Procedure: intubation ([id number]) Procedure Section: Sedation: under general anesthesia. Indications [...] clinically indicated. > Dictated by Eunice Ramirez (radiology orderly). > Dictated by Eunice Ramirez 03/09/2025 11:07 AM > Dictated by [employer] Fac[employer] Operator I, Jen Thomson MD have personally [...] bladder with DICOM image capture performed by clinical laboratory technologist. FINDINGS: Right kidney: 10.9 x 5.6 [...] disease) stage 5, GFR less than15 ml/min ([facility]) Additional History: COMPARISON: None. TECHNIQUE: Real-time ultrasound of the kidneys and bladder with DICOMimage capture performed by clinical laboratory technologist. FINDINGS: Right kidney: 10.9 x 5.6 [...] clinically indicated. > Dictated by Eunice Ramirez (radiology orderly). > Dictated by Eunice Ramirez 03/09/2025 11:07 AM > Dictated by [employer] Fac[employer] Operator IJen MD have personally reviewed and interpreted this examination/study. > Interpreting Provider: Jen Thomson MD on 03/09/2025 1:40 PM us Adalberto Arroyo MD ORDERABLES Final Result * VITAMIN D 25-HYDROXY (03/08/2025 5:06 AM CDT) Vitamin D, 25 Hydroxy 39.0 30.0 - 80.0 ng/mL 03/08/2025 6:22 AM CDT [facility] Comment: The recommendations for [...] LAB - CHEMISTRY ORDERABLES F inal Result [address] [address], [facility] [phone] * (ABNORMAL) PTH INTACT W/O CALCIUM (03/08/2025 5:05 AM CDT) PTH Intact 80.3(H) 8.0 - 77.0 pg/mL 03/08/2025 6:10 AM CDT [facility] Blood BLOOD SPECIMEN / Unknown Lab Venipuncture / Unknown 03/08/2025 5:05 AM CDT 03/08/2025 5:34 AM CDT Adalberto Arroyo MD LAB - CHEMISTRY ORDERABLES F inal Result [address] [address], [place] [phone] * (ABNORMAL) IRON + TRANSFERRIN PANEL (03/08/2025 5:05 AM CDT) Iron 38(L) 50 - 175 ug/dL 03/08/2025 6:09 AM CDT [facility] Transferrin 201 174 - 382 mg/dL 03/08/2025 6:09 AM CDT [facility] Transferrin Saturation % 15(L) 16 - 50 % 03/08/2025 6:09 AM CDT [facility] TIBC Calculated 251 240 - 450 ug/dL 03/08/2025 6:09 AM CDT [facility] Blood BLOOD SPECIMEN / Unknown Lab Venipuncture / Unknown 03/08/2025 5:05 AM CDT 03/08/2025 5:24 AM CDT Adalberto Arroyo MD LAB - CHEMISTRY ORDERABLES F inal Result Performing Organization Address City/[facility]/ZIP Co de Phone Number [facility] [address] [place] [address], [place] [phone] * (ABNORMAL) FERRITIN (03/08/2025 5:05 AM CDT) Ferritin 447(H) 22 - 275 ng/mL 03/08/2025 6:13 AM CDT [facility] Blood BLOOD SPECIMEN / Unknown Lab Venipuncture / Unknown 03/08/2025 5:05 AM CDT 03/08/2025 5:24 AM CDT Adalberto Arroyo MD LAB - CHEMISTRY ORDERABLES F inal Result Performing Organization Address [facility]/ZIP Co de Phone Number [address] [address], [place] [phone] * VAS Carotid Duplex Bilateral (03/07/2025 4:07 PM CDT) Anatomical Region Laterality Modality Neck Intravascular Ul trasound 03/07/2025 2:33 PM CDT Narrative Procedure Note Osvaldo Doyle MD - 03/08/2025 us Kota Estrella FLEXO PRESS OPERATOR-CHIEF DOG LICENSE INSPECTOR VASCULAR LAB ORDERABLE S Edited Result - [...] AM Patient Status: I/P Study Site: [facility] Primary Location: [facility] EStudy Info Exam Type: ECHO SINTIA COMPLETE Indications I34.81 - Calcification of mitral valve Contrast/Agitated Saline Contrast / Saline: Agitated Saline Amount: 10.00 ml Reaction to Contrast: no * A 3D, 2D, color Doppler and spectral Doppler transesophageal echocardiogram was performed with a Bubble Study. Staff Referring Physician: Pramod Torrse Ordering Provider: Pramod Torres Attending Physician: Pramod Torres Fellow: Osvaldo Sepulveda Air Purifier Servicer: Iris Greco Performing Physician: Tahmina Bui Complications [...] anterior mitral valve leaflet tip (around the A2/I4xwswyil tip). * There is moderate to severe [...] AM Patient Status: I/P Study Site: [facility] Primary Location: [facility] EStudy Info Exam Type: ECHO SINTIA COMPLETE Indications I34.81 - Calcification of mitral valve Contrast/Agitated Saline Contrast / Saline: Agitated Saline Amount: 10.00 ml Reaction to Contrast: no * A 3D, 2D, color Doppler and spectral Doppler transesophagealechocardiogram was performed with a Bubble Study. Staff Referring Physician: Pramod Torres Ordering Provider: Pramod Torres Attending Physician: Pramod Torres Fellow: Osvaldo Sepulveda Air Purifier Servicer: Iris Greco Performing Physician: Tahmina Bui Complications [...] anterior mitral valve leaflet tip (around the A2/V3cwmckrd tip). There is moderate to severe mitral [...] day 5 LAVELLE 03/09/2025 1:30 PM CDT [facility] Blood PERIPHERAL BLOOD / Unknown Lab Venipuncture / Unknown 03/04/2025 11:09 AM CDT 03/04/2025 11:25 AM CDT Pramod Torres DO LAB - MICROBIOLOGY ORDERABLES Final Result [facility] [address] [place] [address], [place] [phone] * HEPATITIS C AB SCREEN RFLX NAAT QUANT (03/04/2025 6:36 AM CDT) Pathologist [facility] Hepatitis C Antibody Non-react francisco Non-reac tive 03/04/2025 8:16 AM CDT [facility] Comment:Hepatitis C Antibody screen indicates no [...] CDT 03/04/2025 6:55 AM CDT Pramod Torres Photolitec LAB - CHEMISTRY ORDERABLES Fin al Result Performing Organization Address [facility] Co de Phone Number [address] [address], [facility] [phone] * HIV-1 HIV-2 ANTIBODY + HIV P24 AG PANEL (03/04/2025 6:36 AM CDT) [facility] HIV Antigen/Antibod y 1 & 2 Non-reacti ve Non-react francisco 03/04/2025 9:14 AM CDT [facility] Comment:No Laboratory eviden ce of HIV infection. Blood BLOOD SPECIMEN / Unknown Lab Venipuncture / Unknown 03/04/2025 6:36 AM CDT 03/04/2025 6:55 AM CDT Pramodalexey Torres DO LAB - CHEMISTRY ORDERABLES Fin al Result Performing Organization Address City/[facility]/ZIP Co de Phone Number [address] [address], [place] [phone] * HEPATITIS B PANEL (03/04/2025 6:36 AM CDT) [facility] Hepatitis B Surface Antibody Quantitative <3.0 <8.0 mIU/mL 03/04/2025 8:41 AM CDT [facility] Comment: Hepatitis B Surface Antibody Numeric Result Interpretation: Nonreactive: <8.0 mIU/mL Indeterminate: 8.0 - 12.0 mIU/mL Reactive: >12.0 mIU/mL Hepatitis B Virus Surface Antibody Non-react francisco Non-react francisco 03/04/2025 8:41 AM CDT [facility] Comment: < 8 mIU/mL Hepatitis B surface Antibody (HBsAb). Nonreactive for HBsAb - individual is considered not immune to Hepatitis B Virus infection. Hepatitis B Virus Surface Antigen Non-react francisco Non-react francisco 03/04/2025 8:41 AM CDT [facility] Hepatitis B Core Virus Antibody IgM Non-react francisco Non-react francisco 03/04/2025 8:41 AM CDT [facility] Blood BLOOD SPECIMEN / Unknown Lab Venipuncture / Unknown 03/04/2025 6:36 AM CDT 03/04/2025 6:55 AM CDT us Pramod Torres DO LAB - CHEMISTRY ORDERABLES Fin al Result Performing Organization Address City/State/[facility] Co de Phone Number [address] [address], [facility] [phone] * XR Panorex (03/03/2025 4:22 PM CDT) Anatomical Region Laterality Modality Head Radiographic Melba ging 03/04/2025 8:30 AM CDT Impressions 03/04/2025 9:17 AM CDT IMPRESSION: Lucencies within the right mandibular presumed location of absent of the molar and premolar teeth. Recommend dental consultation. The report was drafted by Ofe Aponte MD (nursing resident) 03/04/2025 8:30 AM. > Dictated by [employer] Facilities Operator I, Jamie Barriga MD have personally reviewed and interpreted this examination/study. 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 > Dictated by [employer] Facilities Operator I, Jamie Barriga MD have personally reviewed and interpreted this examination/study. > Interpreting Provider: Jamie Barriga MD on 03/04/2025 9:17 AM Pramod Torres DO DIAGNOSTIC IMAGING ORDERABLES Final Result * URINE DRUG SCREEN IMMUNOASSAY (03/03/2025 12:34 PM CDT) Amphetamines Screen Urine Negative Negative: < 1000 ng/mL 03/03/2025 1:24 PM CDT [facility] Barbiturates Screen Urine Negative Negative: < 200 ng/mL 03/03/2025 1:24 PM [facility] Benzodiazepine Screen Urine Negative Negative: < 200 ng/mL 03/03/2025 1:24 PM [facility] Opiates Urine Negative Negative: < 300 ng/mL 03/03/2025 1:24 PM [facility] Cocaine Metabolites Urine Negative Negative: < 300 ng/mL 03/03/2025 1:24 PM [facility] Phencyclidine Screen Urine Negative Negative: < 25 ng/ml 03/03/2025 1:24 PM CDT [facility] Cannabinoids Screen Urine Negative Negative: <50 ng/mL 03/03/2025 1:24 PM CDT [facility] Methadone Screen Urine Negative Negative: < 300 ng/mL 03/03/2025 1:24 PM CDT [facility] Fentanyl Screen Urine Negative Negative: <1.5 ng/mL 03/03/2025 1:24 PM CDT [facility] Urine URINE / Unknown Collection / Unknown 03/03/2025 12:34 PM CDT 03/03/2025 12:39 PM CDT Narrative [facility] - 03/03/2025 1:24 PM CDT The Urine Toxicology Screening Panel does not screen for Propoxyphene, Meprobamate, Carisoprodol, Trazodone, snzw-odp-aiuifon medications and/or volatiles (Acetone, Isopropanol, Methanol or Ethylene Glycol). Ethanol, Salicylate, Acetaminophen, Tricyclic Antidepressants and several therapeutic drugs may be individually assayed in serum or plasma specimen. Toxicology testing by the [facility] is an aid to medical diagnosis and treatment of patients. No documented chain of custody was maintained. Results are intended to be used for clinical purposes only. Pramod Torres DO LAB - URINE CHEMISTRY ORDERABL ES Final Result [facility] [address] [place] [address], [facility] [phone] * VANCOMYCIN LEVEL RANDOM (03/03/2025 5:00 AM CDT) Only the most recent of3 resultswithin the time period is included. Vancomycin Random 17.1 Therapeutic Ranges not established for random specimens ug/mL 03/03/2025 6:06 AM CDT [facility] Blood BLOOD SPECIMEN / Unknown Lab Venipuncture / Unknown 03/03/2025 5:00 AM CDT 03/03/2025 5:31 AM CDT Narrative [facility] - 03/03/2025 6:06 AM CDT See institution protocol. Pramod Torres DO LAB - CHEMISTRY ORDERABLES Fin al Result Performing Organization Address City/[facility]/ZIP Co de Phone Number [address] [address], [facility] [phone] * MRSA PCR (03/02/2025 8:47 AM CDT) [facility] MRSA DNA by PCR Not detected Not detected 03/02/2025 3:41 PM CDT [facility] Microbiology SPECIMEN FROM NASAL FOSSAE / Unknown Collection / Unknown 03/02/2025 8:47 AM CDT 03/02/2025 8:52 AM CDT Narrative [facility] - 03/02/2025 3:41 PM CDT Methicillin-resistant Staphylococcus aureus (MRSA) DNA is not detected (presumed not colonized with MRSA). Shira Harris MD LAB - MICROBIOLOGY ORDERABLES Fi nal Result Performing Organization Address [facility] Co de Phone Number [facility] [address] [place] [address], [facility] [phone] * MONONUCLEOSIS SCREEN (03/02/2025 5:34 AM CDT) [facility] Mononucleosis Qualitative Negative Negative 03/02/2025 6:42 AM CDT [facility] Blood BLOOD SPECIMEN / Unknown Lab Venipuncture / Unknown 03/02/2025 5:34 AM CDT 03/02/2025 6:11 AM CDT Shira Harris MD LAB - CHEMISTRY ORDERABLES Final Result Performing Organization Address City/[facility] Co de Phone Number [address] [address], [place] [phone] * (ABNORMAL) BLOOD CULTURE ID PANEL (03/02/2025 5:33 AM CDT) [facility] Enterococcus faecalis Detected(A) Not detected 03/03/2025 10:33 AM CDT [facility] Van A/B Vancomycin Resistance Not detected Not detected 03/03/2025 10:33 AM CDT [facility] Comment:Results indicate van comycin-susceptible Enterococcus faecalis. Louisa/B not detected. Blood PERIPHERAL BLOOD / Unknown Lab Venipuncture / Unknown 03/02/2025 5:33 AM CDT 03/02/2025 6:06 AM CDT Narrative [facility] - 03/03/2025 10:33 AM CDT Blood Culture ID Panel performed by [employer] multiplex PCR. The Test panel includes: Gram [...] and MREJ (methicillin-resistance - MRSA), NDM ([place] gqqpngc-rprs-mbgjnmmfc), OXA-48-like (oxacillinase beta-lactamase),Louisa/B (vancomycin-resistance), VIM ([place] [employer] beta-lactamase). us Shira Harris MD LAB - MICROBIOLOGY ORDERABLES Fi nal Result [facility] [address] [place] [address], [facility] [phone] from Last 3 Months Insurance ANTHEM ANTHEM Advance Directives * Full Code (Latest Code Status on File) Date Activated Date Inactivated Comments 03/01/2025 10:01 PM 03/23/2025 4:41 PM Care Teams Gizzard Puller Relationship Specialty Start Date End Date Carlos Ventura MD [address] [place] [address] PCP - General Internal Medicine 03/17/25
--- OUTSIDE RECORDS SUMMARY | 2025-05-05 07:55 | XMS_ITS | Clinical Summary ---
Author Organization [facility] Address [address] [place] [address] Care Team Providers Care Manager Transfer Name Role Phone Eric Singh MD Primary Care Provider [phone] Hammad Prince MD Unavailable Rahul Hernandez MD Unavailable [phone] Allergies No known active allergies Medications Fluticasone-Um [...] Description 04/14/2025 3:15 PM CDT Office Visit [facility] [place] [address] Hammad Prince MD Heart Problem 04/14/2025 Telephone [facility] [address] Hammad Prince MD Appointment Reminder 04/14/2025 Orders Only [facility] [address] Hammad Prince MD 04/14/2025 Travel 04/12/2025 8:10 AM CDT - 04/12/2025 11:59 PM CDT Hospital Encounter [facility] [address] [place] [address] Eric Singh MD Discharge Disposition: Home or Self Care (Routine Discharge) 04/12/2025 Orders Only [facility] [address] Hammad Prince MD 04/12/2025 Travel 03/24/2025 Abstract [facility] [address] [place] [address] Abstract, Doc Pccl 03/24/2025 Telephone [facility] [address] [place] [address] Hammad Prince MD Referral 02/20/2025 Scan [facility] [address] [place] [address] Scanned, Doc Pccl from Last 3 Months Social History Tobacco Use Types Packs/Day Years Used Date Smoking Tobacco: Never Smokeless Tobacco: Never Tobacco Cessation:Counseling Given: Not Answered Alcohol Use Standard Drinks/Week Comments Yes 23.3 (1 standard drink = 0.6 oz pure alcohol) vodka every evening [facility] Utilities Answer Date Recorded In the past 12 months has e [employer], [employer], oil, or water [employer] threatened to shut off services in your [...] any time in the past 12 m [facility], were you homeless or living [...] Care Team (Late st Contact Info) Description 05/25/2025 9:00 AM ASSOCIATE ORACLE RETAIL Appointment [facility] [address] [place] [address] Yesica Cabello PA [address] [place] [address] 10/18/2025 3:30 PM CDT Office Visit [facility] [place] [address] Hammad Prince MD [address] [place] [address] Health Maintenance Due Date Last Done Comments ASCVD LDL 1960 ASCVD Statin 1960 Colorectal Cancer Screening Colonoscopy (10 Years) 1960 DTaP, Tdap and Td Vaccines ( 1 - Tdap) 1979 Pneumococcal Vaccine: 50+ Years (1 of 2 - PCV) 1979 Zoster Vaccines (1 of 2) 2010 RSV Immunization or 60+ Years (1 - Risk 60-74 years 1-dose series) 2020 COVID-19 Vaccine (1 - 2023-2 5 season) 2025 Influenza Adult (#1) 2025 Hepatitis C Completed 03/04/2025, 03/04/2025, 03/04/2024 Hepatitis A Vaccines Aged Out No long er eligible based on patient's age to complete this topic Meningococcal B Vaccine Aged Out No l onger eligible based on patient's age to complete this topic Meningococcal Vaccine Aged Out No lali fanny eligible based on patient's age to complete this topic RSV Immunizations Under 20 Months Aged Out No longer eligible b ased on patient's age to complete this topic Medical Devices Implanted Type 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 Stent Right: Ureter [employer] [id number] 12/07/2026 [id number] 50 / / [id number] Stent Ureteral Contour Vl 4.8fr X 22-30cm - [id number] Implanted:Qty : 1 on 03/05/2024 by Stanley Gonzalez MD at [facility] Stent Right: Ureter [employer] [id number] 12/07/2026 [id number] / / [id number] Procedures Procedure Name Priority Date/Time Associated Diagnosis Comments ELECTROCARDIOGRAM (NON MIDMARK ACQUIRED) Routine 04/14/2025 3:23 PM CDT Familial Hypercholesterolemi a, Unspecified Type Essential (primary) hypertension US ABD LIMITED Routine 04/12/2025 8:50 AM CDT Splenic lesion HEPATITIS C ANTIBODY Routine 03/04/2024 6:42 AM CDT from Last 3 Months or Most Recently Relevant to Health Maintenance Results * ELECTROCARDIOGRAM (NON MIDMARK ACQUIRED) (04/14/2025 3:23 PM CDT) 04/14/2025 3:23 PM CDT Narrative [facility] - 04/14/2025 6:09 [place] [address] Test Date: 2025-04-14 Pat Name: MARSHALL MERCER Department: 105 Room: Gender: Male Tapper Operator: : 1960 Requested By: HAMMAD PRINCE Order Number: [id number] Reading MD: Hammad Prince Measurements Intervals [place] Rate: 96 P: 59 AK: 203 QRS: 29 QRSD: 98 T: 72 QT: 376 QTc: 477 Interpretive Statements SINUS RHYTHM Procedure Note Hammad Prince MD - 04/14/2025 [place] [id number] Test Date: 2025-04-14 Pat Name: MARSHALL MERCER Department: 105 Room: Gender: Male Tapper Operator: : 1960 Requested By: HAMMAD PRINCE Order Number: [id number] Reading : Hammad Prince Measurements Intervals [place] Rate: 96 P: 59 AK: 203 QRS: 29 QRSD: 98 T: 72 QT: 376 QTc: 477 Interpretive Statements SINUS RHYTHM us Hammad Prince MD PROCEDURES-ORDERABLE NO CHARGE F inal Result [facility] * US ABD LIMITED (04/12/2025 8:50 AM [...] 9:10 AM Narrative 04/12/2025 9:48 AM CDT [address] [place] [address] [address] [place] [address] EXAMINATION: US ABD LIMITED DATE: 04/12/2025 8:16 AM HISTORY: 65 years Male. splenic lesion. Per independent chart review, on 03/10/[address] chest CT performed at [facility] which showed an 8.3 cm hypoattenuating [...] Procedure Note Valeriano Stevens MD - 04/12/2025 [place] [id number] [place] [address] [place] [address] [place] [address] EXAMINATION: US ABD LIMITED DATE: 04/12/2025 8:16 AM HISTORY: 65 years Male. splenic lesion. Per independent chart review, on03/10/2025 patient had noncontrast chest CT performed at [facility] whichshowed an 8.3 cm hypoattenuating area [...] abscess of the spleen one month prior atoutside facility. Although imaging from the hospitalization not [...] By: Nanci Levin MD, 04/12/2025 9:10 AM Eric Singh MD ULTRASOUND Final Result * HEPATITIS C ANTIBODY W/REFLEX (03/04/2024 6:42 AM CDT) HEPATITIS C AB NON-REACTI VE NON-REACTI VE 03/04/2024 8:53 AM CDT [facility] 03/04/2024 6:42 AM CDT Moses Leslie MD LABORATORY Final Result [facility] [address] [place] [address], [place] [phone] from Last 3 Months or Most Recently Relevant to Health Maintenance Insurance [facility] Advance Directives * Full Code (Latest Code Status on File) Date Activated Date Inactivated Comments 03/03/2024 9:23 PM 2024 2:50 PM Care Teams Manager Transfer Relationship Specialty Start Date End Date Eric Singh MD [address] [place] [phone] PCP - General INTERNAL MEDICINE 03/03/24 Hammad Prince MD [address] [place] [address] [employer] Belt Tender CARDIOVASCULAR DISEASE 03/24/25 Rahul Hernandez MD [address] [facility] [address] [place] [address] CARDIOTHORACIC SURGERY 03/24/25
[2025-05-05 08:08] LABS: Hematocrit 38.0 % (37.0-46.0); Hemoglobin 12.1 g/dL (12.4-15.3); Mean Corpuscular HGB Conc 31.8 g/dL (32-36); Mean Corpuscular Hemoglobin 28.6 pg (27.0-31.0); Mean Corpuscular Volume 89.8 fL (78.0-102.0); Platelet Count Result 309 K/mm3 (150-420); Red Blood Count 4.23 M/mm3 (4.70-6.10); White Blood Count 9.3 K/mm3 (4.8-10.8)
[2025-05-05 08:38] LABS: Alanine Aminotransferase 18 U/L (6-50); Albumin Level 4.5 g/dL (3.5-5.1); Alkaline Phosphatase 119 U/L (38-126); Anion Gap 13 mmol/L (4-12); Aspartate Amino Transferase 26 U/L (17-59); Bilirubin,Total 0.5 mg/dL (0.2-1.3); Blood Urea Nitrogen 46 mg/dL (9-20); CRP 1.2 mg/dL (<1.0); Calcium 10.2 mg/dL (8.4-10.2); Carbon Dioxide 20 mmol/L (22-30); Chloride 110 mmol/L (98-107); Estimated Glomerular Filt Rate 20; Glucose 104 mg/dL (65-110); Osmolality Calculated 307 mOsm/kg (285-295); Potassium 4.9 mmol/L (3.4-5.0); Sodium 143 mmol/L (137-145); Total Protein 9.5 g/dL (6.3-8.2)
[2025-05-05 08:43] LABS: INR 2.2; Prothrombin Time 22.4 Seconds (9.50-12.1)
== END 2025-05-05 07:51 | disposition home or self-care (01) ==
LOC: CHSLAB 07:52
PROVIDERS: PCP Internal Medicine; Visit Provider Internal Medicine
DX: N18.30 Chronic kidney disease, stage 3 unspecified (principal); I33.0 Acute and subacute infective endocarditis
CPT/HCPCS: 36415; 80053; 85027; 85610; 86140

== ENCOUNTER 2025-05-12 07:48 | Outpatient (CLI) | payer BC, SELFPAY ==
--- OUTSIDE RECORDS SUMMARY | 2025-05-12 07:52 | XMS_ITS | Clinical Summary ---
Author Organization [facility] Address [address] [place] [address] Care Team Providers Care Cook Roast Name Role Phone Eric Singh MD Primary Care Provider [phone] Hammad Prince MD Unavailable Rahul Hernandez MD Unavailable [phone] Allergies No known active allergies Medications Fluticasone-Um [...] < 7 Day Supply 10 tablet 03/06/20 Active aspirin 81 MG chewable tablet Chew [...] Description 04/14/2025 3:15 PM CDT Office Visit [facility] [place] [address] Hammad Prince MD Heart Problem 04/14/2025 Telephone [facility] [address] Hammad Prince MD Appointment Reminder 04/14/2025 Orders Only [facility] [address] Hammad Prince MD 04/14/2025 Travel 04/12/2025 8:10 AM CDT - 04/12/2025 11:59 PM CDT Hospital Encounter [facility] [address] [place] [address] Eric Singh MD Discharge Disposition: Home or Self Care (Routine Discharge) 04/12/2025 Orders Only [facility] [address] Hammad Prince MD 04/12/2025 Travel 03/24/2025 Abstract [facility] [address] [place] [address] Abstract, Doc Pccl 03/24/2025 Telephone [facility] [address] [place] [address] Hammad Prince MD Referral 02/20/2025 Scan [facility] [address] [place] [address] Scanned, Doc Pccl from Last 3 Months Social History Tobacco Use Types Packs/Day Years Used Date Smoking Tobacco: Never Smokeless Tobacco: Never Tobacco Cessation:Counseling Given: Not Answered Alcohol Use Standard Drinks/Week Comments Yes 23.3 (1 standard drink = 0.6 oz pure alcohol) vodka every evening [facility] Utilities Answer Date Recorded In the past 12 months has e [employer], [employer], oil, or water [employer] threatened to shut off services in your [...] any time in the past 12 m [facility], were you homeless or living in a fpc (including now)? 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 [address] [place] [address] Yesica Cabello PA [address] [place] [address] 10/18/2025 3:30 PM CDT Office Visit [facility] [phone] Hammad Prince MD [address] [place] [address] Health Maintenance Due Date Last Done Comments ASCVD LDL 1960 ASCVD Statin 1960 Colorectal Cancer Screening Colonoscopy (10 Years) 1960 DTaP, Tdap and Td Vaccines ( 1 - Tdap) 1979 Pneumococcal Vaccine: 50+ Years (1 of 2 - PCV) 1979 Zoster Vaccines (1 of 2) 2010 RSV Immunization or 60+ Years (1 - Risk 60-74 years 1-dose series) 2020 COVID-19 Vaccine (1 - 2024-2 6 season) 2025 Influenza Adult (#1) 2025 Hepatitis [...] this topic Medical Devices Implanted Type Area Seasonal Customer Service Associate Device Identifier Shelf Expiration Date Model / Serial / Lot Stent Ureteral Contour Vl 4.8fr X 22-30cm - [id number] Implanted:Qty : 1 on 03/05/2024 by Stanley Gonzalez MD at [facility] Stent Right: Ureter [employer] [id number] 12/07/2026 [id number] 50 / / [id number] Stent Ureteral Contour Vl 4.8fr X 22-30cm - [id number] Implanted:Qty : 1 on 03/05/2024 by Stanley Gonzalez MD at [facility] Stent Right: Ureter [employer] [id number] 12/07/2026 [id number] / / [id number] Procedures Procedure Name Priority Date/Time Associated Diagnosis [...] PM CDT) 04/14/2025 3:23 PM CDT Narrative [facility] - 04/14/2025 6:09 [place] [address] Test Date: 2025-04-14 Pat Name: MARSHALL MERCER Department: 105 Room: Gender: Male Manager Shell: : 1960 Requested By: HAMMAD PRINCE Order Number: [id number] Reading MD: Hammad Prince Measurements Intervals [place] Rate: 96 P: 59 WI: 203 QRS: 29 QRSD: 98 T: 72 QT: 376 QTc: 477 Interpretive Statements SINUS RHYTHM Procedure Note Hammad Prince MD - 04/14/2025 [place] [address]379 Test Date: 2025-04-14 Pat Name: MARSHALL MERCER Department: 105 Room: Gender: Male Manager Shell: : 1960 Requested By: HAMMAD PRINCE Order Number: [id number] Reading : Hammad Prince Measurements Intervals Crowder Rate: 96 P: 59 WI: 203 QRS: 29 QRSD: 98 T: 72 [...] 9:10 AM Narrative 04/12/2025 9:48 AM CDT [address] [place] [address] [address] [place] [address] EXAMINATION: US ABD LIMITED DATE: 04/12/2025 8:16 AM HISTORY: 65 years Male. splenic lesion. Per independent chart review, on 03/10/[address] chest CT performed at [facility] which showed an 8.3 cm hypoattenuating [...] Procedure Note Valeriano Stevens MD - 04/12/2025 [place] [address] [facility] [place] [address] [place] [address] [facility] [place] [address] EXAMINATION: US ABD LIMITED DATE: 04/12/2025 8:16 AM HISTORY: 65 years Male. splenic lesion. Per independent chart review, on03/10/2025 patient had noncontrast chest CT performed at [facility] whichshowed an 8.3 cm hypoattenuating area [...] VE NON-REACTI VE 03/04/2024 8:53 AM CDT [facility] 03/04/2024 6:42 AM CDT Moses Leslie MD LABORATORY Final Result [facility] [address] [place] [address], [place] [phone] from Last 3 Months or Most Recently Relevant to Health Maintenance Insurance [facility] Advance Directives * Full Code (Latest Code Status on File) Date Activated Date Inactivated Comments 03/03/2024 9:23 PM 2024 2:50 PM Care Teams Cook Roast Relationship Specialty Start Date End Date Eric Singh MD [address] [place] [phone] PCP - General INTERNAL MEDICINE 03/03/24 Hammad Prince MD [address] [place] [address] Mcdonald Aba Tutor CARDIOVASCULAR DISEASE 03/24/25 Rahul Hernandez MD [address] [facility] [address] [place] [address] CARDIOTHORACIC SURGERY 03/24/25
--- OUTSIDE RECORDS SUMMARY | 2025-05-12 07:52 | XMS_ITS | Clinical Summary ---
Author Organization [employer] Address [address] [place] [address] Care Team Providers Care Digital Associate Media Director Name Role Phone Carlos Ventura MD Primary Care Provider [phone] Source Comments [facility],non-owned Affiliates and Associated Physician Practices is amultiple site organization consisting of ambulatory clinics and hospital sitesin [place], [place], [place] and [place]. This disclosure is being madepursuant to the Care Everywhere program and may not contain all information available regarding this patient. Last updated 18.[employer] [facility] Allergies No known active allergies Medications * [...] w/ diff, CMP, please fax results to [facility] Infectious disease clinic, fax [phone], Attbita Cabello PA-C 5 05/24/20 25 Active ampicillin 2 g in NaCl IV 0.9 % 100 mL - IV ampicillin 2g every 8 hours (renally dosed), consider continuous infusion outpatient to help with easier administration. - Duration of therapy 6 weeks from date of MVR, 03/15/2025 - EOT 04/26/2025. - Weekly labs: CBC w/ diff, CMP, please fax results to [facility] Infectious disease clinic, fax [phone], Attbita Cabello PA-C 5 05/24/20 25 Active [...] w/ diff, CMP, please fax results to [facility] Infectious disease clinic, fax [phone], Marques Cabello PA-C 5 04/18/20 25 Discontin ued(List Clean-Up) ampicillin 2 g in NaCl IV 0.9 % 100 mL - IV ampicillin 2g every 8 hours (renally dosed), consider continuous infusion outpatient to help with easier administration. - Duration of therapy 6 weeks from date of MVR, 03/15/2025 - EOT 04/26/2025. - Weekly labs: CBC w/ diff, CMP, please fax results to [facility] Infectious disease clinic, fax [phone], Marques Cabello PA-C 5 04/18/20 25 Discontin [...] valve with severe mitral regurgitation. Per SINTIA, [facility] recommends multi team consult for [...] on preliminary results - CTS follows per SNITIA, request consults from dental (for tooth extraction), [...] valve with severe mitral regurgitation. Per SINTIA, [facility] recommends multi team consult for [...] valve with severe mitral regurgitation. Per SINTIA, [facility] recommends multi team consult for [...] - 05/01/2025 12:18 PM CDT Hospital Encounter [facility]DA OP [address] [place] [phone] Garcia Gil MD [facility] Discharge Disposition: Home or Self Care 04/28/2025 Telephone [facility] IVR [address] [place] [phone] Vandana Rodriguez, RN Appointment 04/26/2025 Telephone [facility] - Cardiothoracic Surgery [address] [facility] [place] [address] Alma Rosa Rodriguez, RN Question 04/20/2025 8:30 AM CDT Office Visit [facility] - Infectious Disease [address] [place] [phone] Yesica Cabello PA-C Abscess of spleen (Primary Dx); S/P MVR (mitral valve replacement); Mitral valve vegetation (HCC); Enterococcal bacteremia 04/20/2025 Travel 04/18/2025 12:59 PM CDT - 04/18/2025 11:59 PM CDT Hospital Encounter [facility] [address] [place] [address] Rahul Hernandez MD Discharge Disposition: Home or Self Care 04/18/2025 10:15 AM CDT Office Visit [facility] - Cardiothoracic Surgery [address] [place] [phone] Ofelia Mckee, [employer] OPERATOR-CIRCULAR RIPSAW OPERATOR Rahul Hernandez MD S/P MVR (mitral valve replacement) (Primary Dx) 04/18/2025 Travel 04/17/2025 Orders Only [facility] - Cardiothoracic Surgery [address] [place] [phone] Alma Rosa Rodriguez RN S/P MVR (mitral valve replacement) ; Current use of anticoagulant therapy 04/04/2025 10:30 AM CDT Office Visit [facility] - Cardiothoracic Surgery [address] [place] [phone] Ofelia Mckee, [employer] OPERATOR-CIRCULAR RIPSAW OPERATOR Rahul Hernandez MD S/P MVR (mitral valve replacement) (Primary Dx) 04/04/2025 9:42 AM CDT - 04/04/2025 11:59 PM CDT Hospital Encounter [facility] DIAGNOSTIC RAD OP [address] [place] [address] Ofelia Mckee APRN-CIRCULAR RIPSAW OPERATOR Discharge Disposition: Home or Self Care 04/04/2025 Travel 03/27/[address] [facility] [address] [facility] [facility] [place] [address] Alma Rosa Rodriguez RN 03/24/2025 Telephone [facility] - Infectious Disease [address] [facility] [facility], [place] [address] Yesica Cabello PA-C Appointment 03/15/2025 11:24 AM CDT Anesthesia Event [facility] [address] [place] [address] Alexa Page MD Polhemus, Kyle, MD 03/15/2025 8:55 AM CDT - 03/15/2025 2:40 PM CDT Surgery [facility] [address] [place] [address] Rahul Hernandez MD Mitral valve replacement 03/15/2025 6:25 AM CDT Ancillary Procedure [facility] OP [address] [place] [address] Cornelia Serra MD Heis, Farah, MD 03/10/2025 8:54 AM CDT - 03/10/2025 10:10 AM CDT Surgery [facility] [place] [address] Selene Duran MD Left Heart Cath 03/09/2025 6:03 PM CDT Anesthesia Event [facility] [address] [place] [address] Prakash De La Torre, Carlitos Flores, CAA 03/09/2025 5:45 PM CDT - 03/09/2025 7:28 PM CDT Surgery [facility] [address] [place] [address] Sedic, Vedrana, DMD EXTRACTION DENTAL (MULTIPLE) 2025 9:22 AM CDT - 2025 11:59 PM CDT Hospital Encounter [facility] - [facility] [place] [address] Pramod Torres DO Heis, Farah, MD Discharge Disposition: Home or Self Care 03/01/2025 9:44 PM CDT - 03/23/2025 3:36 PM CDT Hospital Encounter [facility] 8N ACUTE [address] [place] [address] Shira Harris MD Mayer, Joshua C, DO Wheeler, Joseph R, MD Eshetu, Nebiyu A, MD Lawrance, Christopher Paul, MD Cardiothoracic Surgery Discharge Disposition: Home Health Care [facility] 03/01/2025 Travel 03/01/2025 Telephone [facility] PHYS INTERNAL MED [address] [place] [phone] Shira Harris MD General (OSH transfer) 03/01/2025 Telephone [facility] PHYS INTERNAL MED [address] [place] [phone] Freddy Velazquez MD Hospital Admission from Last [...] and heating? Not hard at all 03/01/2025 [facility] of Occupat ional Health - Occupational Stress [...] any time in the past 12 m [facility], were you homeless or living in a alf (including now)? No 03/01/2025 Sex and Gender Information Value Date Recorded Sex Assigned at Not on file Legal Sex Male 10:10 AM SUBSTANCE ABUSE SERVICES DIRECTOR Gender Identity Not on file Sexual Orientation [...] st Contact Info) Description 06/01/2025 9:00 AM SUBSTANCE ABUSE SERVICES DIRECTOR Video Visit [facility] - Infectious Disease [address] [facility] [place] [address] Yesica Cabello PA-C [address] [place] [address] Health Maintenance Due Date Last Done Comments [...] Additional history exists HEPATITIS C SCREENING Completed 03/04/2025, 024 HIV SCREENING Completed 03/04/2025 HEPATITIS B VACCINE [...] this topic Medical Devices Implanted Type Area Process Engineering Manager Device Identifier Shelf Expiration Date Model / Serial / Lot Ndl Sut 3 Blnt Cut Cbl Strl Spnl Ss Implanted:Qty: 1 on 03/15/2025 by Rahul Hernandez MD at [facility] N/A: Sternum [employer] 08/17/2029 [id number] / / [id number] Plate 6 Hl O Cncv Bone Lf Nonster Implanted:Qty: 1 on 03/15/2025 by Rahul Hernandez MD at [facility] N/A: Sternum [employer] 115.604.06 / / Screw 14mm Lck Nonster Bone Lf Implanted:Qty: 6 on 03/15/2025 by Rahul Hernandez MD at [facility] N/A: Sternum [employer] 100.035.14 / / Screw 16mm Lck Nonster Bone Lf Implanted:Qty: 6 on 03/15/2025 by Rahul Hernandez MD at [facility] N/A: Sternum [employer] 100.035.16 / / Screw 18mm Lck Nonster Bone Lf Implanted:Qty: 6 on 03/15/2025 by Rahul Hernandez MD at [facility] N/A: Sternum [employer] 100.035.18 / / Valve Mtrl 31mm Resilia - [id number] Implanted:Qty: 1 on 03/15/2025 by Rahul Hernandez MD at [facility] N/A: Mitral Valve [employer] 10/12/2029 [id number] / [id number] / Ndl Sut 3 Blnt Cut Cbl Strl Spnl Ss Implanted:Qty: 1 on 03/15/2025 by Rahul Hernandez MD at [facility] N/A: Sternum [employer] [id number] / / Plate Bone H 6 Hl Nonster Lf Implanted:Qty: 2 on 03/15/2025 by Rahul Hernandez MD at [facility] N/A: Sternum [employer] 115.102.06 / / Explanted Type Area Process Engineering Manager Device Identifier Shelf Expiration Date Model / Serial / Lot Plate Bone H 6 Hl Nonster Lf Explanted:Qty: 2 on 03/15/2025 by Rahul Hernandez MD at [facility] N/A: Mitral Valve [employer] 115.102.06 / / Description:no cost implant per rep; doc pay once program Plate 6 Hl O Cncv Bone Lf Nonster Explanted:Qty: 1 on 03/15/2025 by Rahul Hernandez MD at [facility] N/A: Mitral Valve [employer] 115.604.06 / / Description:no cost implant per rep; doc pay once program Screw 14mm Lck Nonster Bone Lf Explanted:Qty: 6 on 03/15/2025 by Rahul Hernandez MD at [facility] N/A: Mitral Valve [employer] 100.035.14 / / Description:no cost implant per rep; doc pay once program Screw 16mm Lck Nonster Bone Lf Explanted:Qty: 6 on 03/15/2025 by Rahul Hernandez MD at [facility] N/A: Mitral Valve [employer] 100.035.16 / / Description:no cost implant per rep; doc pay once program Screw 18mm Lck Nonster Bone Lf Explanted:Qty: 6 on 03/15/2025 by Rahul Hernandez MD at [facility] N/A: Mitral Valve [employer] 100.035.18 [...] GFR less than 15 ml/min ([facility]) XR CHEST 1VW PORTABLE Routine [...] valve vegetation (HCC) ACT PLUS - POCT ([facility]) Routine 03/15/2025 2:07 PM CDT BLOOD GAS+COOX+LYTES+METAB ARTERIAL POCT Routine 03/15/2025 2:06 PM CDT PATHOLOGY TISSUE Routine 03/15/2025 1:53 PM CDT Mitral valve insufficiency, unspecified etiology BLOOD GAS+COOX+LYTES+METAB ARTERIAL POCT Routine 03/15/2025 1:30 PM CDT ACT PLUS - POCT ([facility]) Routine 03/15/2025 1:29 PM CDT BLOOD GAS+COOX+LYTES+METAB ARTERIAL POCT Routine 03/15/2025 1:15 PM CDT ACT PLUS - POCT ([facility]) Routine 03/15/2025 1:14 PM CDT ACT PLUS - POCT ([facility]) Routine 03/15/2025 1:04 PM CDT ACT PLUS - POCT ([facility]) Routine 03/15/2025 12:53 PM CDT BLOOD GAS+COOX+LYTES+METAB ARTERIAL POCT Routine 03/15/2025 12:52 PM CDT ACT PLUS - POCT ([facility]) Routine 03/15/2025 12:44 PM CDT BLOOD GAS+COOX+LYTES+METAB ARTERIAL POCT Routine 03/15/2025 12:33 PM CDT PULMONARY ARTERY CATHETER NOTE Routine 03/15/2025 12:19 PM CDT PULMONARY ARTERY CATHETER NOTE Routine 03/15/2025 12:19 PM CDT CENTRAL LINE NOTE Routine 03/15/2025 12:19 PM CDT ENDOTRACHEAL TUBE NOTE Routine 03/15/2025 12:18 PM CDT ARTERIAL LINE NOTE Routine 03/15/2025 12:18 PM CDT RI REPLACEMENT OF MITRAL VALVE 03/15/2025 11:04 AM [...] TUBE NOTE Routine 03/09/2025 6:28 PM CDT RI DENTAL SURGERY PROCEDURE 03/09/2025 5:37 PM CDT Infection Case Notes DOCTOR SEDIC WILL BE TO [facility] AND AVAILABLE TO OPERATE AT 1600. US RETROPERITONEAL COMPLETE Routine 03/09/2025 10:35 AM CDT CKD (chronic kidney disease) stage 5, GFR less than 15 ml/min ([facility]) CBC W AUTO DIFFERENTIAL AM Draw 03/09/2025 [...] 0 mGy Reference air kerma (ka,r). PROCEDURE: Documentation Analyst: Rigo Pabon Procedure : 1. Removal of [...] 0 mGy Reference air kerma (ka,r). PROCEDURE: Documentation Analyst: Rigo Pabon Procedure : 1. Removal of [...] Rigo Pabon MD on 05/01/2025 1:36 PM Garcia Gil MD IR ORDERABLES Final Result [...] LA length 2C 5.5 cm [facility] Myocardial strain charge 2 unitless S[facility] CV [facility] PACS IVSd 2D 1.053 cm SSM CV FUJ I PACS LVIDd 4.512 cm SSM CV FUJ I PACS LVIDs 2.943 cm [facility] LVOT diam 1.976 cm [facility] P[facility] LVPWd 1.072 cm [facility] P[facility] LV biplane EF 58.196 % S[facility] CV [facility] PACS LV A2C EF 57.693 % [facility] PACS LV A4C EF 55.932 % [facility] PACS LV EDV A2C 130.618 ml SSM CV FU JI PACS LV EDV A4C 125.217 ml SSM CV [facility]U JI PACS LV ESV A2C 55.261 ml SSM CV FU JI PACS LV ESV A4C 55.18 ml SSM CV [facility]I PACS LVOT pk grad 5.85 mmHg [facility] LVOT pk trace 120.933 cm/s SSM CV F UJI PACS LVOT VTI 21.179 cm [facility] PACS LA size 4.765 cm [facility] P[facility] AV area pk trace 2.323 cm [facility] AV area cont VTI 2.3 cm [facility] AV pk grad 10.202 mmHg SSM CV FU [facility]I PACS AV mn grad 5.905 mmHg SSM CV FU JI PACS AV pk trace 159.706 cm/s [facility] AV VTI 28.247 cm [facility] PACS MV A pk trace 0.694 cm/s SSM CV F UJI PACS MV E pk trace 195.337 cm/s SSM CV F UJI PACS MV mn grad 8.847 mmHg SSM CV FU JI PACS MV VTI 36.099 cm [facility] PACS PV pk trace 128.075 cm/s [facility] PACS TR pk trace 245.78 cm/s [facility] PACS Anatomical Region Laterality Modality Ultrasound [...] 1:02 PM Patient Status: O/P Study Site: [facility] Primary Location: [facility] EStudy Info Technical Quality: Adequate Exam Type: [...] Provider: Rahul Hernandez Attending Physician: Rahul Hernandez Seal Delivery Vehicle Team Technician: Ricardo White Left Ventricle The left ventricle [...] 1:02 PM Patient Status: O/P Study Site: [facility] Primary Location: [facility] EStudy Info Technical Quality: Adequate Exam Type: [...] Provider: Rahul Hernandez Attending Physician: Rahul Hernandez Seal Delivery Vehicle Team Technician: Ricardo White Left Ventricle The left ventricle [...] MD on 04/05/2025 12:33 AM Ofelia Mckee [employer] OPERATOR-CIRCULAR RIPSAW OPERATOR DIAGNOSTIC IMAGING OR DERABLES Final Result * APHERESIS/TRANSFUSION ORDER (03/24/2025 12:11 PM CDT) Narrative 03/24/2025 12:11 PM CDT Ordered by an unspecified provider. Scanned Document NURSING - VITAL SIGNS AND ASSES SMENT Final Result * (ABNORMAL) CALCIUM IONIZED WHOLE BLOOD (03/23/2025 12:54 AM CDT) Only the most recent of10 resultswithin the time period is included. Calcium Ionized 1.16 mmol/L 03/23/2025 1:17 AM CDT [facility] pH 7.41 7.35 - 7.45 pH 03/23/2025 1:17 AM CDT [facility] Ionized Calcium pH Adjusted 1.16(L) 1.19 - 1.34 mmol/L 03/23/2025 1:17 AM CDT [facility] Blood BLOOD SPECIMEN / Unknown Lab Venipuncture / Unknown 03/23/2025 12:54 AM CDT 03/23/2025 1:12 AM CDT Mariya Botello PA-C LAB - CHEMISTRY ORDERABLES F inal Result [facility] [address] [place] [address], [facility] [phone] * (ABNORMAL) PT-INR (03/23/2025 12:54 AM CDT) Only the most recent of8 resultswithin the time period is included. PT 15.9(H) 12.1 - 14.8 Seconds 03/23/2025 1:37 AM T [facility] INR 1.3 See Comment 03/23/2025 1:37 AM [facility] Comment:The suggested therap [...] LAB - COAGULATION O RDERABLES Final Result [address] [address], [facility] [phone] * (ABNORMAL) COMPREHENSIVE METABOLIC PANEL (03/23/2025 12:54 [...] (2020), per the National Kidney Foundation and [place] [employer] of Nephrology recommendations. Blood BLOOD SPECIMEN / Unknown Lab Venipuncture / Unknown 03/23/2025 12:54 AM CDT 03/23/2025 1:16 AM [facility] Rahul Hernandez MD LAB - CHEMISTRY ORD ERABLES Final Result Performing Organization Address City/[facility]/ZIP Co de Phone Number [facility] [address] [place] [address], [place] [phone] * PHOSPHORUS BLOOD (03/23/2025 12:54 AM CDT) Only the most recent of23 resultswithin the time period is included. Phosphorus 3.7 2.8 - 5.1 mg/dL 03/23/2025 1:42 AM CDT [facility] Blood BLOOD SPECIMEN / Unknown Lab Venipuncture / Unknown 03/23/2025 12:54 AM CDT 03/23/2025 1:16 AM CDT Mariya Botello PA-C LAB - CHEMISTRY ORDERABLES F inal Result Performing Organization Address [facility]/ZIP Co de Phone Number [address] [address], [place] [phone] * MAGNESIUM BLOOD (03/23/2025 12:54 AM CDT) Only the most recent of23 resultswithin the time period is included. Magnesium 2.0 1.6 - 2.6 mg/dL 03/23/2025 1:42 AM CDT [facility] Blood BLOOD SPECIMEN / Unknown Lab Venipuncture / Unknown 03/23/2025 12:54 AM CDT 03/23/2025 1:16 AM CDT Mariya Botello PA-C LAB - CHEMISTRY ORDERABLES F inal Result Performing Organization Address City/[facility]/ZIP Co de Phone Number [address] [address], [place] [phone] * (ABNORMAL) CBC W/O DIFFERENTIAL (03/23/2025 12:53 [...] 31.7 - 36.3 g/dL 03/23/2025 1:22 AM [facility] RDW-CV 19.8(H) 11.3 - 14.8 % 03/23/2025 1:22 AM [facility] Platelet Count 334 150 - 420 x10E9/L 03/23/2025 1:22 AM [facility] MPV 10.2 7.8 - 11.4 fL 03/23/2025 1:22 AM [facility] Blood BLOOD SPECIMEN / Unknown Lab Venipuncture / Unknown 03/23/2025 12:53 AM CDT 03/23/2025 1:15 AM CDT Mariya Botello PA-C LAB - HEMATOLOGY ORDERABLES Final Result Performing Organization Address City/State/[facility] Co de Phone Number [facility] [address] [place] [address], [facility] [phone] * IR Central Line Insert Tunnel (03/22/2025 [...] less than 15 ml/min (HCC) Additional History: Documentation Analyst: Garcia Gil MD COMPARISON: None. FLUOROSCOPY DOSE: [...] evaluation, please review the evaluation forms in [facility]. For details on monitored clinical parameters during the intra-service sedation time, please review the procedure nurse documentation in [facility]. I was present for the Entire procedure. Procedure Note Garcia Gil MD - 03/22/2025 PROCEDURE: IR CENTRAL LINE INSERT TUNNEL DATE/TIME OF EXAM: 03/22/2025 12:53 PM CLINICAL INFORMATION: None relevant/not provided if blank. Indication: R09.89: Endocarditis, suspected N18.5: CKD (chronic kidney disease) stage 5, GFR less than 15 ml/min([facility]) Additional History: Documentation Analyst: Garcia Gil MD COMPARISON: None. FLUOROSCOPY DOSE: [...] response to care. Intra-service sedation start time [id number] and end time was 1228 during which I was present. Total physician intra-service sedation time was 14 minutes. For details on pre-moderate sedation and post-moderate sedation patient evaluation, please reviewthe evaluation forms in [facility]. For details on monitored clinical parameters during the intra-service sedation time, please review the procedurenurse documentation in [facility]. I was present for the [...] DATE/TIME OF EXAM: 03/22/2025 4:27 AM, LOCATION [facility] INDICATION: I34.0: Mitral valve [...] spine. Report dictated by Jamie Rucker MD, (founder president and ceo). > Dictated by Production Superintendent Hydro I, Jamie Barriga MD have personally reviewed and interpreted this examination/study. > Interpreting Provider: Jamie Barriga MD on 03/22/2025 7:08 PM Procedure Note Jamie Barriga MD - 03/22/2025 PROCEDURE: XR CHEST 1VW PORTABLE, DATE/TIME OF EXAM: 03/22/2025 4:27 AM, LOCATION [facility] INDICATION: I34.0: Mitral valve [...] spine. Report dictated by Jamie Rucker MD, (founder president and ceo). > Dictated by Production Superintendent Hydro I, Jamie Barriga MD have personally reviewed and interpreted this examination/study. > Interpreting Provider: Jamie Barriga MD on 03/22/2025 7:08 PM Buffy Jang [employer] OPERATOR-CIRCULAR RIPSAW OPERATOR DIAGNOSTIC IMAGI NG ORDERABLES Final Result * EKG 12-Lead (03/20/2025 12:00 PM CDT) Only the most recent of7 resultswithin the time period is included. Ventricular Rate 125 BPM [facility] Atrial Rate 125 BPM [facility] QRS Duration ms 90 ms [facility] Q-T Interval ms 336 ms [facility] QTC Calculation (Bezet) 484 ms [facility] Calculated P [place] 55 degrees [facility] Calculated R [place] 69 degrees [facility] Calculated T [place] 55 degrees [facility] Interpretation EKG SINUS TACHYCARDIA NONSPECIFIC ST ABNORMALITY ABNORMAL ECG WHEN COMPARED WITH ECG OF 20-MAR-2025 11:59, SINUS TACHYCARDIA HAS REPLACED JUNCTIONAL RHYTHM Confirmed by PRASAD LOUIS MD ([id number]) on 03/26/2025 10:12:19 PM [facility] MUSE 03/20/2025 12:0 0 PM CDT 03/26/2025 10:12 PM CDT us Yousuf Chaudhari PA-C ECG ORDERABLES Edited Resu lt - Final [facility] MUSE * (ABNORMAL) BASIC METABOLIC PANEL [...] 18 7 - 23 03/19/2025 9:27 PM [facility] Osmolality Calculated 294 275 - 295 mOsm/kg 03/19/2025 9:27 PM [facility] eGFR by CKD-EPI 23(L) >=90 mL/min/1.7 3 m2 03/19/2025 9:27 PM CDT [facility] Comment:Estimated Glomerular Filtration Rate (eGFR) calculated using the CKD-EPI Creatinine Equation (2020), per the National Kidney Foundation and [place] Society of Nephrology recommendations. Blood BLOOD SPECIMEN / Unknown Venipuncture / Unknown 03/19/2025 8:44 PM CDT 03/19/2025 8:58 PM CDT us Nayan Hernandez [employer] OPERATOR-CIRCULAR RIPSAW OPERATOR LAB - CHEMISTRY ORD ERABLES Final Result [address] [address], [place] [phone] * GLUCOSE - POINT OF CARE (03/19/2025 8:22 AM CDT) Only the most recent of23 resultswithin the time period is included. Glucose WB/POC 89 70 - 99 mg/dL 03/19/2025 8:27 AM CDT [facility] Specimen Type Arterial/C apillary 03/19/2025 8:27 AM CDT [facility] Blood BLOOD SPECIMEN / Unknown 03/19/2025 8:22 AM CDT 03/19/2025 8:27 AM CDT us Rahul Hernandez MD LAB - POINT OF CARE ORDERABLES Final Result Performing Organization Address City/[facility]/ZIP Co de Phone Number [address] [address], [place] [phone] * (ABNORMAL) HEPATIC FUNCTION PANEL (03/19/2025 4:28 AM CDT) Protein Total 6.2 6.0 - 8.3 g/dL 025 7:34 AM CDT [facility] Albumin 3.1(L) 3.4 - 5.0 g/dL 03/19/2025 7:34 AM CDT [facility] Bilirubin Total 0.4 0.2 - 1.2 mg/dL 02/19 7:34 AM CDT [facility] Bilirubin Conjugated 0.2 0.1 - 0.5 mg/dL 03/19/2025 7:34 AM [facility] Bilirubin Unconjugated 0.2 Unconjugated Bilirubin is a calculated value: Reference ranges have not been established. mg/dL 03/19/2025 7:34 AM [facility] Alkaline Phosphatase 198(H) 40 - 150 U/L 03/19/2025 7:34 AM [facility] ALT 166(H) 5 - 55 U/L 03/19/2025 7:34 AM [facility] AST 173(H) 5 - 34 U/L 03/19/2025 7:34 AM [facility] Albumin/Globulin Ratio 1.0(L) 1.1 - 2.3 03/19/2025 7:34 AM [facility] Blood BLOOD SPECIMEN / Unknown Venipuncture / Unknown 03/19/2025 4:28 AM CDT 03/19/2025 4:38 AM CDT Jennyfer Dallas DO LAB - CHEMISTRY ORDERABLES Final Result [address] [address], [facility] [phone] * TRANSFUSE RED BLOOD CELL LEUKOREDUCED UNIT(S) (03/16/2025 10:21 PM CDT) Rahul Hernandez MD NURSING - BLOOD PRO D TRANSFUSION Final Result * TYPE + SCREEN PANEL (03/16/2025 5:39 PM CDT) Only the most recent of3 resultswithin the time period is included. Antibody Screen NEG 6:34 PM CDT [facility] B[facility]OD [facility] ABO Rh O POS 03/16/2025 6:34 PM CDT [facility] Blood Bank BLOOD SPECIMEN / Unknown Venipuncture / Unknown 03/16/2025 5:39 PM CDT 03/16/2025 5:51 PM CDT Rahul Hernandez MD LAB - BLOOD BANK OR DERABLES Final Result [facility] B[facility]OD [facility] LAB [address] [place] [address], [facility] [phone] * TRANSFUSE RED BLOOD CELL LEUKOREDUCED UNIT(S) (03/16/2025 11:36 AM CDT) Nayan Hernandez LIQUOR GRINDING MILL OPERATOR-CIRCULAR RIPSAW OPERATOR NURSING - BLOOD PRO D TRANSFUSION Final Result * (ABNORMAL) SVO2 FOR RECALIBRATION (03/16/2025 3:11 AM CDT) Only the most recent of4 resultswithin the time period is included. SVO2 for Recalibration 48.1(L) 66.0 - 77.0 % 03/16/2025 3:20 AM CDT [facility] Blood BLOOD SPECIMEN / Unknown Venipuncture / Unknown 03/16/2025 3:11 AM CDT 03/16/2025 3:16 AM CDT Mariya Botello PA-C LAB - CHEMISTRY ORDERABLES F inal Result Performing Organization Address City/[facility]/ZIP Co de Phone Number [facility] [address] [place] [address], [facility] [phone] * HEMOGLOBIN A1C (03/16/2025 3:11 AM CDT) Hemoglobin A1c 5.3 <=5.6 % 03/16/2025 10:31 AM CDT [facility] Estimated Average Glucose 105 mg/dL 03/16/2025 10:31 AM CDT [facility] Comment: HbA1c Interpretation: Normal : < 5.7% Pre-diabetes: 5.7-6.4% Diabetes: Equal to or greater than 6.5% Test results diagnostic of diabetes should be repeated for confirmation. Treatment target values recommended by ADA and other clinical organizations should be used to evaluate metabolic control in patients. Reference: [place] [employer], Standards of Care in Diabetes [...] ORDERABLES F inal Result Performing Organization Address [facility]/ZIP Co de Phone Number [address] [address], [facility] [phone] * (ABNORMAL) LACTIC ACID BLOOD (03/16/2025 3:11 AM CDT) Only the most recent of3 resultswithin the time period is included. Pathologist [facility] Lactic Acid-Stat 3.7(HH) <=2.0 mmol/L 03/16/2025 4:02 AM CDT [facility] Blood BLOOD SPECIMEN / Unknown Venipuncture / Unknown 03/16/2025 3:11 AM CDT 03/16/2025 3:21 AM CDT Nayan Hernandez LIQUOR GRINDING MILL OPERATOR-CIRCULAR RIPSAW OPERATOR LAB - CHEMISTRY ORD ERABLES Final Result Performing Organization Address [facility] Co de Phone Number [address] [address], [facility] [phone] * (ABNORMAL) BLOOD GASES ART + COOX PANEL (03/16/2025 3:11 AM CDT) Only the most recent of4 resultswithin the time period is included. pH Arterial 7.38 7.35 - 7.45 pH 03/16/2025 3:21 AM CDT [facility] pO2 Arterial 104(H) 80 - 100 mmHg 03/16/2025 3:21 AM CDT [facility] pCO2 Arterial 31(L) 35 - 45 mmHg 3:21 AM T [facility] HCO3 Arterial 18.3(L) 20.0 - 30.0 mmol/L [...] 0.0 - 2.0 % 2024 3:21 AM [facility] O2 Content Arterial 10.6 Interpret within clinical context ml/dL 03/16/2025 3:21 AM [facility] Hemoglobin by COOX 7.7(L) 12.0 - 17.6 g/dL 03/16/2025 3:21 AM [facility] O2 Saturation Arterial 99 90 - 100 % 03/16/2025 3:21 AM [facility] FI O2 Arterial 28.0 % 03/16/2025 3:21 AM [facility] Blood, arterial ARTERIAL BLOOD SPECIMEN / Unknown Arterial Puncture / Unknown 03/16/2025 3:11 AM T 03/16/2025 3:16 AM [facility] - 03/16/2025 3:21 AM [facility] NAMED [facility] Carboxyhemoglobin Normal Concentration: Non-smokers: 0-2%; Smokers: 0-9%; Toxic: >20% us Nayan Hernandez LIQUOR GRINDING MILL OPERATOR-CIRCULAR RIPSAW OPERATOR LAB - BLOOD GASES O RDERABLES Final Result [facility] [address] [place] [address], [facility] [phone] * TRANSFUSE RED BLOOD CELL LEUKOREDUCED UNIT(S) [...] - 400 mg/dL 03/15/2025 6:03 PM CDT [facility] Blood BLOOD SPECIMEN / Unknown Venipuncture / Unknown 03/15/2025 5:32 PM CDT 03/15/2025 5:35 PM CDT Result [facility] Mariya Botello PA-C LAB - COAGULATION ORDERABLES Final Result [facility] [address] [place] [address], [facility] [phone] * PTT (03/15/2025 5:32 PM CDT) Only the most recent of2 resultswithin the time period is included. APTT 29.8 23.0 - 38.4 Seconds 03/15/2025 6:05 PM CDT [facility] Comment:Suggested therapeuti c range for full dose I.V. unfractionated heparin therapy for venous thromboembolism is 71 to 109 seconds. Blood BLOOD SPECIMEN / Unknown Venipuncture / Unknown 03/15/2025 5:32 PM CDT 03/15/2025 5:35 PM CDT Result [facility] us Mariya GARRETT-C LAB - COAGULATION ORDERABLES Final Result Performing Organization Address [facility]/ZIP Co de Phone Number [address] [address], [facility] [phone] * (ABNORMAL) DIFFERENTIAL MANUAL (03/15/2025 5:32 PM CDT) Neutrophil % 90(H) 41 - 74 % 03/15/2025 6:09 PM CDT [facility] Lymphocyte % 6(L) 17 - 47 % 03/15/2025 6:09 PM CDT [facility] Monocyte % 4 3 - 11 % 03/15/2025 6:09 PM CDT [facility] Neutrophil Absolute 19.53(H) 1.60 - 7.50 x10E9/L 03/15/2025 6:09 PM T [facility] Lymphocyte Absolute 1.30 1.00 - 4.40 x10E9/L 03/15/2025 6:09 PM T [facility] Monocyte Absolute 0.87 0.15 - 1.00 x10E9/L 03/15/2025 6:09 PM T [facility] RBC Morphology REVIEWED 03/15/2025 6:09 PM T [facility] Large Platelets PRESENT(A) (none) 03/15/2025 6:09 PM [facility] Blood BLOOD SPECIMEN / Unknown Venipuncture / Unknown 03/15/2025 5:32 PM CDT 03/15/2025 5:38 PM CDT Mariya Botello PA-C LAB - HEMATOLOGY ORDERABLES Final Result [address] [address], [facility] [phone] * (ABNORMAL) CBC W AUTO DIFFERENTIAL (03/15/2025 [...] PA-C LAB - HEMATOLOGY ORDERABLES Final Result [facility] [address] [place] [address], [facility] [phone] * CULTURE FUNGUS OTHER+FUNGUS SMEAR (03/15/2025 5:06 PM CDT) Culture No fungus isolated [place] 04/10/2025 7:07 AM CDT [facility]CRO[facility] Fungus Stain No yeast or hyphae seen 04/10/2025 7:07 AM CDT [facility] Microbiology TISSUE SPECIMEN / Unknown Collection / Unknown 03/15/2025 5:06 PM CDT 03/15/2025 5:06 PM CDT Rahul Hernandez MD LAB - MICROBIOLOGY ORDERABLES Final Result [facility]CROBI[facility] [address] [place] [address], [facility] [phone] * CULTURE WOUND+GRAM STAIN (03/15/2025 5:06 PM CDT) Culture No growth [place] 03/19/2025 1:10 PM CDT [facility]CRO[facility] Gram Stain Light Polymorphonuclear cells 03/19/2025 1:10 PM CDT [facility]CRO[facility] Gram Stain No organisms seen 025 1:10 PM CDT [facility]CRO[facility] Microbiology TISSUE SPECIMEN / Unknown Collection / Unknown 03/15/2025 5:06 PM CDT 03/15/2025 5:06 PM CDT Rahul Hernandez MD LAB - MICROBIOLOGY ORDERABLES Final Result Performing Organization Address City/[facility]/ZIP Co de Phone Number [facility] MICROBIOLOGY [address] [place] [address], [facility] [phone] * CULTURE AFB+SMEAR (03/15/2025 5:06 PM CDT) Culture No acid-fast bacillus isolated 04/24/2025 7:53 AM CDT [facility]CRO[facility] AFB Smear No acid-fast bacilli seen 04/24/2025 7:53 AM CDT [facility]CRO[facility] Microbiology TISSUE SPECIMEN / Unknown Collection / Unknown 03/15/2025 5:06 PM CDT 03/15/2025 5:06 PM CDT Rahul Hernandez MD LAB - MICROBIOLOGY ORDERABLES Final Result Performing Organization Address City/[facility]/ZIP Co de Phone Number [facility] MICROBIOLOG[facility] [address] [place] [address], [facility] [phone] * CULTURE ANAEROBE (03/15/2025 5:06 PM CDT) Culture No anaerobic organisms isolated [place] 03/20/2025 12:08 PM CDT [facility] MICROBIOLOG[facility] Microbiology TISSUE SPECIMEN / Unknown Collection / Unknown 03/15/2025 5:06 PM CDT 03/15/2025 5:06 PM CDT Rahul Hernandez MD LAB - MICROBIOLOGY ORDERABLES Final Result [facility]CRO[facility] [address] [place] [address], [facility] [phone] * TRANSFUSE FRESH FROZEN PLASMA UNIT(S) (03/15/2025 [...] were not saved. I personally performed. CPT 97748 with bilateral modifier. Alexa Page MD GENERAL [...] 7.35 - 7.45 pH 03/15/2025 4:00 PM [facility] pO2 Arterial 384(H) 80 - 100 mmHg 03/15/2025 4:00 PM [facility] pCO2 Arterial 41 35 - 45 mmHg 4:00 PM [facility] HCO3 Arterial 22.1 20.0 - 30.0 mmol/L 03/15/2025 4:00 PM [facility] BE Arterial -3.4(L) -2.0 - 2.0 [...] 03/15/2025 4:00 PM CDT 03/15/2025 4:00 PM T Cornelia Serra MD LAB - POINT OF CARE ORDERABLE S Final Result Performing Organization Address City/[facility]/ZIP Co de Phone Number [address] [address], [place] [phone] * TRANSFUSE RED BLOOD CELL LEUKOREDUCED UNIT(S) (03/15/2025 3:30 PM CDT) us Rahul Hernandez MD NURSING - BLOOD PRO D TRANSFUSION Final Result * ACT PLUS - POCT ([facility]) (03/15/2025 3:17 PM CDT) Only the most recent of8 resultswithin the time period is included. [facility] ACT PLUS 112 See result comments sec 03/15/2025 3:21 PM CDT [facility] Blood BLOOD SPECIMEN / Unknown 03/15/2025 3:17 PM CDT 03/15/2025 3:21 PM CDT Narrative [facility] - 03/15/2025 3:21 PM CDT ACT+ Therapeutic ranges for the ACT+ test in surgery areas are: Greater than (>) 360 seconds for surgical patients Greater than (>) 450 seconds for surgical bypass patients us Cornelia Serra MD LAB - COAGULATION ORDERABLES Final Result Performing Organization Address City/[facility]/ZIP Co de Phone Number [address] [address], [place] [phone] * (ABNORMAL) TEG 6 GLOBAL HEMOSTASIS WITH HEPARIN NEUTRALIZATION (03/15/2025 3:10 PM CDT) [facility] CITRATED KAOLIN R (CK-R REACTION TIME) 5.4 4.6 - 9.1 min 03/15/2025 4:11 PM CDT [facility] CITRATED KAOLIN MA (CK-MA MAX AMPLITUDE) 70.3(H) 52.0 - 69.0 mm 03/15/2025 4:11 PM CDT [facility] CITRATED KAOLIN HEPARINASE R ( CKH R REACTION TIME) 4.7 4.3 - 8.3 min 03/15/2025 4:11 PM CDT [facility] CITRATED KAOLIN HEPARINASE LY30 ([facility] LY30 LYSIS) 0.0 0.0 - 3.2 % 03/15/2025 4:11 PM CDT [facility] CITRATED RAPIDTEG HEPARINASE MA ( CRTH MA MAX AMPLITUDE) 69.5(H) 53.0 - 69.0 mm 03/15/2025 4:11 PM CDT [facility] CITRATED FUCTIONAL FIBRINOGEN HEPARINASE ( CFFH MAX AMPLITUDE) 39.1(H) 15.0 - 34.0 mm 03/15/2025 4:11 PM CDT [facility] Blood BLOOD SPECIMEN / Unknown 03/15/2025 3:10 PM CDT 03/15/2025 3:18 PM CDT Alexa Page MD LAB - HEMATOLOGY ORDERABL ES Final Result Performing Organization Address [facility]/ZIP Co de Phone Number [address] [address], [place] [phone] * PLATELET COUNT AUTO CITRATED BLOOD (03/15/2025 2:33 PM CDT) Platelet Count Citrated 215 150 - 420 x10E9/L 03/15/2025 3:49 PM CDT [facility] Blood BLOOD SPECIMEN / Unknown Venipuncture / Unknown 03/15/2025 2:33 PM CDT 03/15/2025 2:33 PM CDT Narrative [facility] - 03/15/2025 3:49 PM CDT This test was developed and its performance characteristics determined by the clinical laboratories of [facility] and [facility]. It has not been cleared and approved by the [place] Food and Drug Administration. Alexa Page MD LAB - HEMATOLOGY ORDERABL ES Final Result Performing Organization Address City/[facility]/ZIP Co de Phone Number [address] [address], [place] [phone] * PATHOLOGY TISSUE (03/15/2025 1:53 PM CDT) Case Report Surgical Pathology Report Case: [id number] Authorizing Provider: Rahul Hernandez Collected: 03/15/2025 01:53 PM MD Tyrell Ordering Location: [facility] OP Received: 03/16/2025 05:08 AM Pathologist: Ericka [...] are no vegetations or calcific nodules present. Ironworker Machine Operator sections are submitted in a single cassette labeled A1. RB 03/17/2025 3:58 PM CDT [facility] PATHOLOGY LAB Pathologist Location at [facility] 03/17/2025 3:58 PM CDT [facility] PATHOLOGY LAB Disclaimer The performance characteristics of all immunohistochemical and indirect immunofluorescence stains (if any) cited in this report were determined by the Histopathology Laboratory of [facility]. Some of these tests were [...] attending (teaching) pathologist. 03/17/2025 3:58 PM CDT [facility] PATH[facility] LAB Embedded Images 03/17/2025 3:58 PM CDT [facility] PATH[facility] LAB Resection without Tumor ENTIRE MITRAL VALVE / Unknown 03/15/2025 1:53 PM CDT 03/16/2025 5:08 AM CDT Comment:Pre-op diagnosis: mitral valve regurgitation us Rahul Hernandez MD LAB - PATHOLOGY/CYT OLOGY ORDERABLES Final Result [facility] PATHOLOGY LAB [address] [place] [address], [facility] [phone] * PA CATH PERFORMABLE, INTRODUCER (03/15/2025 12:19 [...] Event Date/Time: 03/15/2025 11:38 AM Procedure: intubation ([id number]) Procedure Section: Sedation: under general anesthesia. Indications [...] AM. Staff Section Anesthesia Provider: Ricki Shields DO Performed the procedure Alexa Page MD GENERAL ANESTHESIA ORDERA BLES Final Result * ARTERIAL LINE PERFORMABLE (03/15/2025 12:18 PM CDT) Narrative Ricki Shields DO - 03/15/2025 12:18 PM CDT Ricki Shields DO 03/15/2025 12:18 PM Arterial Line Placement Procedure Note Patient Location: OR. Insertion Time: 03/15/2025 11:32 AM Procedure: Arterial Line ([id number]) Procedure Section Indications: continuous blood pressure monitoring. [...] See Separate Report 03/15/2025 9:31 AM CDT [facility] Other MISCELLANEOUS SAMPLES / Unknown 03/15/2025 8:06 AM CDT 03/15/2025 8:07 AM CDT Rahul Hernandez MD LAB - BLOOD GASES O RDERABLES Final Result [address] [address], [place] [phone] * BLOOD GAS ART+LYTES+METAB+COOX POC NOTIF (03/15/2025 8:06 AM CDT) Comment Notification Label Only - See Separate Report 03/15/2025 9:31 AM CDT [facility] Other MISCELLANEOUS SAMPLES / Unknown 03/15/2025 8:06 AM CDT 03/15/2025 8:07 AM CDT us Rahul Hernandez MD LAB - BLOOD GASES O RDERABLES Final Result [facility] [address] [place] [address], [place] [phone] * ECHO ANES SINTIA INTRAOP (03/15/2025 6:23 [...] 10:01 AM Patient Status: I/P Study Site: [facility] Primary Location: [facility] Info Exam Type: ECHO ANES SINTIA INTRAOP [...] 10:01 AM Patient Status: I/P Study Site: [facility] Primary Location: [facility] EStudy Info Exam Type: ECHO ANES SINTIA [...] UNIT(S) (03/14/2025 5:37 PM CDT) Ofelia Mckee LIQUOR GRINDING MILL OPERATOR-CIRCULAR RIPSAW OPERATOR NURSING - BLOOD PROD TRANSFUSION Final Result * PREPARE (CROSSMATCH) RBC UNIT(S), 1 Units (03/14/2025 5:21 AM CDT) Only the most recent of6 resultswithin the time period is included. Unit Description N/A [facility] BLOOD [facility] LAB Blood Bank BLOOD SPECIMEN / Unknown 03/14/2025 5:21 AM CDT 03/14/2025 5:53 AM CDT Rahul Hernandez MD LAB - BLOOD BANK OR DERABLES Final Result [facility] [address] [place] [address], [facility] [phone] * PREPARE PLATELET PHERESIS UNIT(S), 2 Units (03/14/2025 5:21 AM CDT) Only the most recent of2 resultswithin the time period is included. Unit Description LR PLT Phere B7 [facility] B[facility]OD [facility] LAB Unit ABO O [facility] Unit Rh POS [facility]OD [facility] Product Number P27 [facility] B LOOD BANK LAB Unit Donor # [id number] [facility] Unit Status transfused [facility] BLO OD BANK LAB Product Code [id number] [facility] B[facility] OD [facility] Blood Type Barcode 5100 [facility] Expiration Date [id number] S BLOOD BANK LAB Unit Description LR PLT Phere B7 [facility] Unit ABO O [facility] Unit Rh POS [facility] B[facility]OD [facility] Product Number P27 [facility] B LOOD BANK LAB Unit Donor # [id number] [facility] B[facility]OD [facility] LAB Unit Status released [facility] BLOO D BANK LAB Product Code [id number] [facility] BLO OD [facility]ANK LAB Blood Type Barcode 5100 [facility] B[facility] LAB Expiration Date [id number] S BLOOD BANK LAB Blood Bank BLOOD SPECIMEN / Unknown 03/14/2025 5:21 AM CDT 03/14/2025 5:53 AM CDT Rahul Hernandez MD LAB - BLOOD BANK OR DERABLES Final Result [facility] [address] [place] [address], [place] [phone] * PREPARE FFP UNIT(S), 4 Units (03/14/2025 5:21 AM CDT) Only the most recent of2 resultswithin the time period is included. Unit Description Liquid Plasma [facility] B[facility]OD [facility] Unit ABO A [facility] B[facility]OD [facility] Unit Rh POS [facility] B[facility]OD [facility] Product Number E2457 [facility] B LOOD BANK LAB Unit Donor # [id number] [facility]OD [facility] Unit Status released [facility] BLOO D BANK LAB Product Code [id number] [facility] BLO OD [facility]ANK LAB Blood Type Barcode 6200 [facility]OD [facility] LAB Expiration Date [id number] S BLOOD BANK LAB Unit Description Liquid Plasma [facility] B[facility] Unit ABO A [facility] B[facility]OD B[facility] Unit Rh POS [facility] BLOOD [facility] Product Number E2457 [facility] B LOOD BANK LAB Unit Donor # [id number] [facility] BLOOD [facility] Unit Status transfused [facility] BLO OD BANK LAB Product Code [id number] [facility] BLO OD BANK LAB Blood Type Barcode 6200 [facility] BLOOD [facility]ANK LAB Expiration Date [id number] S BLOOD BANK LAB Blood Bank BLOOD SPECIMEN / Unknown 03/14/2025 5:21 AM CDT 03/14/2025 5:53 AM CDT Rahul Hernandez MD LAB - BLOOD BANK OR DERABLES Final Result [facility] LAB [address] [place] [address], [place] [phone] * (ABNORMAL) URINALYSIS REFLEX MICROSCOPIC REFLEX CULTURE (03/13/2025 9:10 AM [facility] NAMED [facility]) Only the most recent of2 resultswithin the time period is included. Color UA Colorless(A) Yellow, Straw 03/13/2025 9:50 AM [facility] Clarity UA Clear Clear 03/13/2025 9:50 AM [facility] Glucose UA 1+(A) Normal 03/13/2025 9:50 AM [facility] Bilirubin UA Negative Negative 03/13/2025 9:50 AM [facility] Ketone UA Negative Negative 03/13/2025 9:50 AM [facility] Specific [place] UA 1.012 1.005 - 1.030 03/13/2025 9:50 AM [facility] Blood UA Negative Negative 03/13/2025 9:50 AM [facility] pH UA 6.5 5.0 - 8.0 [...] AM CDT 03/13/2025 9:19 AM CDT Narrative [facility] - 03/13/2025 9:50 AM CDT Ofelia Mckee LIQUOR GRINDING MILL OPERATOR-CIRCULAR RIPSAW OPERATOR LAB - URINALYSIS ORDE RABLES Final Result Performing Organization Address City/[facility]/ZIP Co de Phone Number [facility] [address] [place] [address], [facility] [phone] * BLOOD TYPE VERIFICATION (03/10/2025 10:02 PM CDT) ABO Rh O POS 03/10/2025 10:56 PM CDT [facility] Blood Bank BLOOD SPECIMEN / Unknown Lab Venipuncture / Unknown 03/10/2025 10:02 PM CDT 03/10/2025 10:11 PM CDT Yousuf Chaudhari PA-C LAB - BLOOD BANK ORDERABLES Final Result Performing Organization Address City/[facility]/ZIP Co de Phone Number [facility] [address] [place] [address], [facility] [phone] * CT Chest Wo Contrast (03/10/2025 2:43 [...] indicated. > Dictated by Nick Jay MD, (founder president and ceo). > Dictated by Production Superintendent Hydro IJen MD have personally reviewed and interpreted this examination/study. > Interpreting Provider: Jen Thomson MD on 03/10/2025 5:00 PM Narrative 03/10/2025 5:00 PM CDT PROCEDURE: CT CHEST WO CONTRAST, DATE/TIME OF EXAM: 03/10/2025 2:44 PM, LOCATION [facility] INDICATION: I33.0: Mitral valve [...] DATE/TIME OF EXAM: 03/10/2025 2:44 PM, LOCATION [facility] INDICATION: I33.0: Mitral valve [...] indicated. > Dictated by Nick Jay MD, (founder president and ceo). > Dictated by Production Superintendent Hydro I, Jen Thomson MD have personally reviewed [...] PMHx HTN, COPD, CKD, GERD presented to [facility] as OSH transfer for CTS evaluation [...] Event Date/Time: 03/09/2025 6:17 PM Procedure: intubation ([id number]) Procedure Section: Sedation: under general anesthesia. Indications [...] clinically indicated. > Dictated by Eunice Ramirez (founder president and ceo). > Dictated by Eunice Ramirez 03/09/2025 11:07 AM > Dictated by Production Superintendent Hydro IJen MD have personally reviewed and interpreted this examination/study. > Interpreting Provider: Jen Thomson MD on 03/09/2025 1:40 PM Narrative 03/09/2025 1:40 PM CDT PROCEDURE: US RETROPERITONEAL COMPLETE DATE/TIME OF EXAM: 03/09/2025 10:36 AM CLINICAL INFORMATION: None relevant/not provided if blank. Indication: N18.5: CKD (chronic kidney disease) stage 5, GFR less than 15 ml/min ([facility]) Additional History: COMPARISON: None. TECHNIQUE: Real-time ultrasound of the kidneys and bladder with DICOM image capture performed by agricultural research technologist. FINDINGS: Right kidney: 10.9 x 5.6 [...] 5, GFR less than15 ml/min ([facility]) Additional History: COMPARISON: None. TECHNIQUE: Real-time ultrasound of the kidneys and bladder with DICOMimage capture performed by agricultural research technologist. FINDINGS: Right kidney: 10.9 x 5.6 [...] clinically indicated. > Dictated by Eunice Ramirez (founder president and ceo). > Dictated by Eunice Ramirez 03/09/2025 11:07 AM > Dictated by Production Superintendent Hydro IJen MD have personally reviewed and interpreted this examination/study. > Interpreting Provider: Jen Thomson MD on 03/09/2025 1:40 PM Adalberto Arroyo MD ORDERABLES Final Result * VITAMIN D 25-HYDROXY (03/08/2025 5:06 AM CDT) Vitamin D, 25 Hydroxy 39.0 30.0 - 80.0 ng/mL 03/08/2025 6:22 AM CDT [facility] Comment: The recommendations for 25-Hydroxy Vitamin [...] LAB - CHEMISTRY ORDERABLES F inal Result [facility] [address] [place] [address], [place] [phone] * (ABNORMAL) PTH INTACT W/O CALCIUM (03/08/2025 5:05 AM CDT) PTH Intact 80.3(H) 8.0 - 77.0 pg/mL 03/08/2025 6:10 AM CDT [facility] Blood BLOOD SPECIMEN / Unknown Lab Venipuncture / Unknown 03/08/2025 5:05 AM CDT 03/08/2025 5:34 AM CDT Adlaberto Arroyo MD LAB - CHEMISTRY ORDERABLES F inal Result Performing Organization Address [facility]/ZIP Co de Phone Number [facility] [address] [place] [address], [place] [phone] * (ABNORMAL) IRON + TRANSFERRIN PANEL (03/08/2025 5:05 AM CDT) Iron 38(L) 50 - 175 ug/dL 03/08/2025 6:09 AM CDT [facility] Transferrin 201 174 - 382 mg/dL 03/08/2025 6:09 AM CDT [facility] Transferrin Saturation % 15(L) 16 - 50 % 03/08/2025 6:09 AM CDT [facility] TIBC Calculated 251 240 - 450 ug/dL 03/08/2025 6:09 AM CDT [facility] Blood BLOOD SPECIMEN / Unknown Lab Venipuncture / Unknown 03/08/2025 5:05 AM CDT 03/08/2025 5:24 AM CDT Adalberto Arroyo MD LAB - CHEMISTRY ORDERABLES F inal Result [facility] [address] [place] [address], [facility] [phone] * (ABNORMAL) FERRITIN (03/08/2025 5:05 AM CDT) Ferritin 447(H) 22 - 275 ng/mL 03/08/2025 6:13 AM CDT [facility] Blood BLOOD SPECIMEN / Unknown Lab Venipuncture / Unknown 03/08/2025 5:05 AM CDT 03/08/2025 5:24 AM CDT Adalberto Arroyo MD LAB - CHEMISTRY ORDERABLES F inal Result Performing Organization Address [facility] Co de Phone Number [address] [address], [facility] [phone] * VAS Carotid Duplex Bilateral (03/07/2025 4:07 PM CDT) Anatomical Region Laterality Modality Neck Intravascular Ul trasound 03/07/2025 2:33 PM CDT Narrative Procedure Note Osvaldo Doyle MD - 03/08/2025 Kota Estrella [employer] OPERATOR-CIRCULAR RIPSAW OPERATOR VASCULAR LAB ORDERABLE S Edited Result - [...] 10:44 AM Patient Status: I/P Study Site: [facility] Primary Location: [facility] EStudy Info Exam Type: ECHO SINTIA COMPLETE Indications I34.81 - Calcification of mitral valve Contrast/Agitated Saline Contrast / Saline: Agitated Saline Amount: 10.00 ml Reaction to Contrast: no * A 3D, 2D, color Doppler and spectral Doppler transesophageal echocardiogram was performed with a Bubble Study. Staff Referring Physician: Pramod Torres Ordering Provider: Pramod Torres Attending Physician: Pramod Torres Fellow: Osvaldo Sepulveda [employer] Team Technician: Iris Greco Performing Physician: Tahmina Bui Complications [...] anterior mitral valve leaflet tip (around the A2/E1xrxkgkj tip). * There is moderate to severe [...] 10:44 AM Patient Status: I/P Study Site: [facility] Primary Location: [facility] EStudy Info Exam Type: ECHO SINTIA COMPLETE Indications I34.81 - Calcification of mitral valve Contrast/Agitated Saline Contrast / Saline: Agitated Saline Amount: 10.00 ml Reaction to Contrast: no * A 3D, 2D, color Doppler and spectral Doppler transesophagealechocardiogram was performed with a Bubble Study. Staff Referring Physician: Pramod Torres Ordering Provider: Pramod Torres Attending Physician: Pramod Torres Fellow: Osvaldo Sepulveda [employer] Team Technician: Iris Greco Performing Physician: Tahmina Bui Complications [...] anterior mitral valve leaflet tip (around the A2/W4iwviwll tip). There is moderate to severe mitral [...] resultswithin the time period is included. Pathologist [facility] Culture No growth day 5 LAVELLE 03/09/2025 1:30 PM CDT [facility] Blood PERIPHERAL BLOOD / Unknown Lab Venipuncture / Unknown 03/04/2025 11:09 AM CDT 03/04/2025 11:25 AM CDT Pramod Torres DO LAB - MICROBIOLOGY ORDERABLES Final Result [facility] [address] [place] [address], [facility] [phone] * HEPATITIS C AB SCREEN RFLX NAAT QUANT (03/04/2025 6:36 AM CDT) [facility] Hepatitis C Antibody Non-react francisco Non-reac tive 03/04/2025 8:16 AM CDT [facility] Comment:Hepatitis C Antibody screen indicates no [...] ORDERABLES Fin al Result Performing Organization Address [facility] Co de Phone Number [address] [address], [place] [phone] * HIV-1 HIV-2 ANTIBODY + HIV P24 AG PANEL (03/04/2025 6:36 AM CDT) [facility] HIV Antigen/Antibod y 1 & 2 Non-reacti ve Non-react francisco 03/04/2025 9:14 AM CDT [facility] Comment:No Laboratory eviden ce of HIV infection. Blood BLOOD SPECIMEN / Unknown Lab Venipuncture / Unknown 03/04/2025 6:36 AM CDT 03/04/2025 6:55 AM CDT Pramodalexey Torres DO LAB - CHEMISTRY ORDERABLES Fin al Result [address] [address], [place] [phone] * HEPATITIS B PANEL (03/04/2025 6:36 AM CDT) [facility] Hepatitis B Surface Antibody Quantitative <3.0 <8.0 mIU/mL 03/04/2025 8:41 AM CDT [facility] Comment: Hepatitis B Surface Antibody Numeric Result Interpretation: Nonreactive: <8.0 mIU/mL Indeterminate: 8.0 - 12.0 mIU/mL Reactive: >12.0 mIU/mL Hepatitis B Virus Surface Antibody Non-react francisco Non-react francisco 03/04/2025 8:41 AM CDT [facility] Comment: < 8 mIU/mL Hepatitis B surface Antibody (HBsAb). Nonreactive for HBsAb - individual is considered not immune to Hepatitis B Virus infection. Hepatitis B Virus Surface Antigen Non-react francisco Non-react francisco 03/04/2025 8:41 AM CDT [facility] Hepatitis B Core Virus Antibody IgM Non-react francisco Non-react francisco 03/04/2025 8:41 AM CDT [facility] Blood BLOOD SPECIMEN / Unknown Lab Venipuncture / Unknown 03/04/2025 6:36 AM CDT 03/04/2025 6:55 AM CDT us Pramod Torres DO LAB - CHEMISTRY ORDERABLES Fin al Result Performing Organization Address City/State/[facility] Co de Phone Number [facility] [address] [place] [phone], [facility] [phone] * XR Panorex (03/03/2025 4:22 PM CDT) Anatomical Region Laterality Modality Head Radiographic Melba ging 03/04/2025 8:30 AM CDT Impressions 03/04/2025 9:17 AM CDT IMPRESSION: Lucencies within the right mandibular presumed location of absent of the molar and premolar teeth. Recommend dental consultation. The report was drafted by Ofe Aponte MD (president ergonomic consulting) 03/04/2025 8:30 AM. > Dictated by Production Superintendent Hydro I, Jamie Barriga MD have personally reviewed and interpreted this examination/study. > Interpreting Provider: Jamie Barriga MD on 03/04/2025 9:17 AM Narrative 03/04/2025 9:17 AM CDT PROCEDURE: XR PANOREX, DATE/TIME OF EXAM: 03/03/2025 4:22 PM, LOCATION [facility] INDICATION: D73.3: Abscess of [...] PANOREX, DATE/TIME OF EXAM: 03/03/2025 4:22 PM, [facility] INDICATION: D73.3: Abscess of spleen I34.81: [...] was drafted by Ofe Aponte MD (president ergonomic consulting) 03/04/2025 8:30 AM. > Dictated by Production Superintendent Hydro I, Jamie Barriga MD have personally reviewed and interpreted this examination/study. > Interpreting Provider: Jamie Barriga MD on 03/04/2025 9:17 AM Pramod Torres DO DIAGNOSTIC IMAGING ORDERABLES Final Result * URINE DRUG SCREEN IMMUNOASSAY (03/03/2025 12:34 PM CDT) Amphetamines Screen Urine Negative Negative: < 1000 ng/mL 03/03/2025 1:[facility] Barbiturates Screen Urine Negative Negative: < 200 ng/mL 03/03/2025 1:24 PM [facility] Benzodiazepine Screen Urine Negative Negative: < 200 ng/mL 03/03/2025 1:24 PM [facility] Opiates Urine Negative Negative: < 300 ng/mL 03/03/2025 1:24 PM [facility] Cocaine Metabolites Urine Negative Negative: < 300 ng/mL 03/03/2025 1:24 PM [facility] Phencyclidine Screen Urine Negative Negative: < 25 ng/ml 03/03/2025 1:24 PM CDT [facility] Cannabinoids Screen Urine Negative Negative: <50 ng/mL 03/03/2025 1:24 PM CDT [facility] Methadone Screen Urine Negative Negative: < 300 ng/mL 03/03/2025 1:24 PM CDT [facility] Fentanyl Screen Urine Negative Negative: <1.5 ng/mL 03/03/2025 1:24 PM CDT [facility] Urine URINE / Unknown Collection / Unknown 03/03/2025 12:34 PM CDT 03/03/2025 12:39 PM CDT Narrative [facility] - 03/03/2025 1:24 PM CDT The Urine Toxicology Screening Panel does not screen for Propoxyphene, Meprobamate, Carisoprodol, Trazodone, dokt-wif-tpsmqyw medications and/or volatiles (Acetone, Isopropanol, Methanol or Ethylene Glycol). Ethanol, Salicylate, Acetaminophen, Tricyclic Antidepressants and several therapeutic drugs may be individually assayed in serum or plasma specimen. Toxicology testing by the [facility] is an aid to medical diagnosis and treatment of patients. No documented chain of custody was maintained. Results are intended to be used for clinical purposes only. Pramod Torres DO LAB - URINE CHEMISTRY ORDERABL ES Final Result [facility] [address] [place] [phone], [facility] [phone] * VANCOMYCIN LEVEL RANDOM (03/03/2025 5:00 AM CDT) Only the most recent of3 resultswithin the time period is included. Vancomycin Random 17.1 Therapeutic Ranges not established for random specimens ug/mL 03/03/2025 6:06 AM CDT [facility] Blood BLOOD SPECIMEN / Unknown Lab Venipuncture / Unknown 03/03/2025 5:00 AM CDT 03/03/2025 5:31 AM CDT Narrative [facility] - 03/03/2025 6:06 AM CDT See institution protocol. Pramod Torres DO LAB - CHEMISTRY ORDERABLES Fin al Result Performing Organization Address [facility] Co de Phone Number [address] [address], [facility] [phone] * MRSA PCR (03/02/2025 8:47 AM CDT) [facility] MRSA DNA by PCR Not detected Not detected 03/02/2025 3:41 PM CDT [facility] Microbiology SPECIMEN FROM NASAL FOSSAE / Unknown Collection / Unknown 03/02/2025 8:47 AM CDT 03/02/2025 8:52 AM CDT Narrative [facility] - 03/02/2025 3:41 PM CDT Methicillin-resistant Staphylococcus aureus (MRSA) DNA is not detected (presumed not colonized with MRSA). Shira Harris MD LAB - MICROBIOLOGY ORDERABLES Fi nal Result Performing Organization Address [facility] Co de Phone Number [facility] [address] [place] [address], [facility] [phone] * MONONUCLEOSIS SCREEN (03/02/2025 5:34 AM CDT) [facility] Mononucleosis Qualitative Negative Negative 03/02/2025 6:42 AM CDT [facility] Blood BLOOD SPECIMEN / Unknown Lab Venipuncture / Unknown 03/02/2025 5:34 AM CDT 03/02/2025 6:11 AM CDT Shira Harris MD LAB - CHEMISTRY ORDERABLES Final Result Performing Organization Address [facility] Co de Phone Number [address] [address], [facility] [phone] * (ABNORMAL) BLOOD CULTURE ID PANEL (03/02/2025 5:33 AM CDT) [facility] Enterococcus faecalis Detected(A) Not detected 03/03/2025 10:33 AM CDT [facility] Van A/B Vancomycin Resistance Not detected Not detected 03/03/2025 10:33 AM CDT [facility] Comment:Results indicate van comycin-susceptible Enterococcus faecalis. Louisa/B not detected. Blood PERIPHERAL BLOOD / Unknown Lab Venipuncture / Unknown 03/02/2025 5:33 AM CDT 03/02/2025 6:06 AM CDT Narrative [facility] - 03/03/2025 10:33 AM CDT Blood Culture ID Panel performed by [employer] multiplex PCR. The Test panel includes: Gram [...] and MREJ (methicillin-resistance - MRSA), NDM ([place] lkputsp-segy-khvpcxwwo), OXA-48-like (oxacillinase beta-lactamase),Louisa/B (vancomycin-resistance), VIM ([place] [employer]oded [place] beta-lactamase). us Shira Harris MD LAB - MICROBIOLOGY ORDERABLES Fi nal Result [facility] [address] [place] [address], [facility] [phone] from Last 3 Months Insurance ANTHEM ANTHEM Advance Directives * Full Code (Latest Code Status on File) Date Activated Date Inactivated Comments 03/01/2025 10:01 PM 03/23/2025 4:41 PM Care Teams Digital Associate Media Director Relationship Specialty Start Date End Date Carlos Ventura MD [address] [place] [address] PCP - General Internal Medicine 03/17/25
[2025-05-12 08:21] LABS: INR 2.5; Prothrombin Time 25.6 Seconds (9.50-12.1)
[2025-05-12 08:41] LABS: Alanine Aminotransferase 12 U/L (6-50); Albumin Level 4.7 g/dL (3.5-5.1); Alkaline Phosphatase 103 U/L (38-126); Anion Gap 11 mmol/L (4-12); Aspartate Amino Transferase 23 U/L (17-59); Bilirubin,Total 0.6 mg/dL (0.2-1.3); Blood Urea Nitrogen 46 mg/dL (9-20); Calcium 9.7 mg/dL (8.4-10.2); Carbon Dioxide 21 mmol/L (22-30); Chloride 112 mmol/L (98-107); Estimated Glomerular Filt Rate 18; Glucose 121 mg/dL (65-110); Osmolality Calculated 310 mOsm/kg (285-295); Potassium 4.6 mmol/L (3.4-5.0); Sodium 144 mmol/L (137-145); Total Protein 9.9 g/dL (6.3-8.2)
== END 2025-05-12 07:49 | disposition home or self-care (01) ==
LOC: CHSLAB 07:49
PROVIDERS: PCP Internal Medicine; Visit Provider Internal Medicine
DX: Z79.01 Long term (current) use of anticoagulants (principal); I10 Essential (primary) hypertension; I33.0 Acute and subacute infective endocarditis
CPT/HCPCS: 36415; 80053; 85610

== ENCOUNTER 2025-05-25 07:48 | Outpatient (CLI) | payer BC, SELFPAY ==
[2025-05-25 08:04] LABS: Hematocrit 40.4 % (37.0-46.0); Hemoglobin 12.6 g/dL (12.4-15.3); Mean Corpuscular HGB Conc 31.2 g/dL (32-36); Mean Corpuscular Hemoglobin 28.3 pg (27.0-31.0); Mean Corpuscular Volume 90.6 fL (78.0-102.0); Platelet Count Result 354 K/mm3 (150-420); Red Blood Count 4.46 M/mm3 (4.70-6.10); White Blood Count 7.2 K/mm3 (4.8-10.8)
[2025-05-25 08:25] LABS: INR 3.7; Prothrombin Time 36.1 Seconds (9.50-12.1)
[2025-05-25 08:40] LABS: Alanine Aminotransferase 16 U/L (6-50); Albumin Level 4.6 g/dL (3.5-5.1); Alkaline Phosphatase 126 U/L (38-126); Anion Gap 12 mmol/L (4-12); Aspartate Amino Transferase 30 U/L (17-59); Bilirubin,Total 1.4 mg/dL (0.2-1.3); Blood Urea Nitrogen 43 mg/dL (9-20); Calcium 9.7 mg/dL (8.4-10.2); Carbon Dioxide 19 mmol/L (22-30); Chloride 115 mmol/L (98-107); Estimated Glomerular Filt Rate 20; Glucose 100 mg/dL (65-110); Osmolality Calculated 312 mOsm/kg (285-295); Potassium 4.7 mmol/L (3.4-5.0); Sodium 146 mmol/L (137-145); Total Protein 8.1 g/dL (6.3-8.2)
== END 2025-05-25 07:49 | disposition home or self-care (01) ==
LOC: CHSLAB 07:50
PROVIDERS: PCP Internal Medicine; Visit Provider Internal Medicine Nephrology
DX: I12.9 Hypertensive chronic kidney disease with stage 1 through stage 4 chronic kidney disease, or unspecified chronic kidney disease (principal); N18.4 Chronic kidney disease, stage 4 (severe); I33.0 Acute and subacute infective endocarditis; Z79.01 Long term (current) use of anticoagulants
CPT/HCPCS: 36415; 80053; 84100; 85027; 85610

== ENCOUNTER 2025-06-09 08:48 | Outpatient (CLI) | payer BC, SELFPAY ==
--- OUTSIDE RECORDS SUMMARY | 2025-06-09 08:58 | XMS_ITS | Clinical Summary ---
Author Organization [facility] Address [address] [place] [address] Care Team Providers Care Packing Inspector Name Role Phone Carlos Ventura MD Primary Care Provider [phone] Source Comments [facility],non-owned Affiliates and Associated Physician Practices is amultiple site organization consisting of ambulatory clinics and hospital sitesin [place], [place], [place] and [place]. This disclosure is being madepursuant to the Care Everywhere program and may not contain all information available regarding this patient. Last updated 18.[employer] [facility] Allergies No known active allergies Medications * [...] 5 11:32 AM CDT 03/24/20 25 Active warfarin (Coumadin) 2 MG tablet Take 6 mg daily 30 tablet 1 04/04/20 25 Active warfarin (Coumadin) 1 MG tablet Take 1 (one) tablet by mouth every evening Take total of 7 mg daily 04/05/20 25 Active amoxicillin (Amoxil) 500 MG capsule TAKE ONE CAPSULE BY MOUTH TWICE A DAY 98 capsule 05/30/20 25 Active cefTRIAXone 2 g in NaCl IV 0.9 % 50 mL - IV ceftriaxone 2g every 12 hours - Duration of therapy 6 weeks from date of MVR, 03/15/2025 - EOT 04/26/2025. - Weekly labs: CBC w/ diff, CMP, please fax results to [facility] Infectious disease clinic, fax [phone], Marques Cabello PA-C 04/18/20 25 025 ampicillin 2 g in NaCl IV 0.9 % 100 mL - IV ampicillin 2g every 8 hours (renally dosed), consider continuous infusion outpatient to help with easier administration. - Duration of therapy 6 weeks from date of MVR, 03/15/2025 - EOT 04/26/2025. - Weekly labs: CBC w/ diff, CMP, please fax results to [facility] Infectious disease clinic, fax [phone], Marques Cabello PA-C 04/18/20 25 025 amoxicillin (Amoxil) 500 MG capsule Take 1 (one) capsule by mouth 2 times daily for 49 days 98 capsule 04/20/20 025 Discontinued Active Problems Problem Noted Date Diagnosed [...] valve with severe mitral regurgitation. Per [facility], [facility] recommends multi team consult for [...] valve with severe mitral regurgitation. Per [facility], [facility] recommends multi team consult for [...] valve with severe mitral regurgitation. Per [facility], [facility] recommends multi team consult for [...] note from 03/13 -- Will call CTS 08/27 AM to discuss Assessment & Plan (03/13/2025 [...] Encounters Date Type Department Care Team Description 06/01/2025 9:00 AM LITHOGRAPH PRESS OPERATOR Video Visit [facility] - Infectious Disease [address] [place] [phone] Yesica Cabello PA-C Abscess of spleen ; Medication monitoring encounter 05/27/2025 Refill [facility] - Infectious Disease [address] [place] [phone] Yesica Cabello PA-C Refill Request 05/01/2025 10:01 AM CDT - 05/01/2025 12:18 PM CDT Hospital Encounter [facility] OP [address] [place] [address] Garcia Gil MD [facility] Discharge Disposition: Home or Self Care 04/28/2025 Telephone [facility] IVR [address] [place] [address] Vandana Rodriguez, RN Appointment 04/26/2025 Telephone [facility] - Cardiothoracic Surgery [address] [place] [phone] Alma Rosa Rodriguez, RN Question 04/20/2025 8:30 AM CDT Office Visit [facility] - Infectious Disease [address] [place] [phone] Yesica Cabello PA-C Abscess of spleen (Primary Dx); S/P MVR (mitral valve replacement); Mitral valve vegetation (HCC); Enterococcal bacteremia 04/20/2025 Travel 04/18/2025 12:59 PM CDT - 04/18/2025 11:59 PM CDT Hospital Encounter [facility] [address] [place] [address] Rahul Hernandez MD Discharge Disposition: Home or Self Care 04/18/2025 10:15 AM CDT Office Visit [facility] - Cardiothoracic Surgery [address] [place] [phone] Ofelia Mckee, CERTIFIED MARINE MECHANIC-Rahul Avelar MD S/P MVR (mitral valve replacement) (Primary Dx) 04/18/2025 Travel 04/17/[address] [facility] [address] [place] [phone] Alma Rosa Rodriguez RN S/P MVR (mitral valve replacement) ; Current use of anticoagulant therapy 04/04/2025 10:30 AM CDT Office [facility]oth[facility]acic Surgery [address] [place] [phone] Ofelia Mckee, CERTIFIED MARINE MECHANIC-Rahul Avelar MD S/P MVR (mitral valve replacement) (Primary Dx) 04/04/2025 9:42 AM CDT - 04/04/2025 11:59 PM CDT Hospital Encounter [facility] DIAGNOSTIC RAD OP [address] [place] [address] Ofelia Mckee APRN-CNP Discharge Disposition: Home or Self Care 04/04/2025 Travel 03/27/2025 Orders Only [facility] - Cardiothoracic Surgery [address] [place] [phone] Alma Rosa Rodriguez RN 03/24/2025 Telephone [facility] - Infectious Disease [address] [place] [phone] Yesica Cabello PA-C Appointment 03/15/2025 11:24 AM CDT Anesthesia Event [facility] OP [address] [place] [address] Alexa Page MD Polhemus, Kyle, MD 03/15/2025 8:55 AM CDT - 03/15/2025 2:40 PM CDT Surgery [facility] OP [address] [place] [address] Rahul Hernandez MD Mitral valve replacement 03/15/2025 6:25 AM CDT Ancillary Procedure [facility] OP [address] [place] [address] Cornelia Serra MD Heis, Farah, MD 03/10/2025 8:54 AM CDT - 03/10/2025 10:10 AM CDT Surgery [facility] Letter Carrier [address] [place] [address] Selene Duran MD Left Heart Cath 03/09/2025 6:03 PM CDT Anesthesia Event [facility] OP [address] [place] [address] Prakash De La Torre, Carlitos Flores, DIANDRA 03/09/2025 5:45 PM CDT - 03/09/2025 7:28 PM CDT Surgery [facility] OP [address] [place] [address] Sedic, Vedrana, DMD EXTRACTION DENTAL (MULTIPLE) 03/01/2025 9:44 PM CDT - 03/23/2025 3:36 PM CDT Hospital Encounter [facility] 8N ACUTE [address] [place] [address] Shira Harris MD Mayer, Joshua C, DO Wheeler, Joseph R, MD Eshetu, Nebiyu A, MD Lawrance, Rahul Santillan MD Cardiothoracic Surgery Discharge Disposition: Home Health Care Svc from Last 3 Months Family History Medical [...] hard at all 03/01/2025 [facility] Occup[facility] ional [facility] - Occupational Stress [...] time in the past 12 m [facility], were you homeless or living in a nursing home (including now)? No 03/01/2025 Sex and Gender Information Value Date Recorded Sex Assigned at Not on file Legal Sex Male 10:10 AM LITHOGRAPH PRESS OPERATOR Gender Identity Not on file Sexual Orientation [...] Care Team (Late st Contact Info) Description 07/11/2025 10:00 AM LITHOGRAPH PRESS OPERATOR Video Visit [facility] - Infectious Disease [address] [place] [address], [facility] [place] [address] Yesica Cabello PA-C [facility] [place] [address] Health Maintenance Due Date Last Done Comments [...] 50+ (1 of 2 - PCV) 1979 Respiratory Syncytial Virus (RSV) Vaccine Pt: or over 60 yrs (1 - Risk 50-74 years 1-dose series) 2010 ZOSTER VACCINE (1 of 2) 2010 DEPRESSION SCREENING 07/20/2024 COVID-19 VACCINE (3 - season) 2025 11/28/2020, 11/07/2020 SCREENING FOR DIABETES 03/23/2028 , 03/22/2025, 03/21/2025, Additional history exists HEPATITIS C SCREENING Completed 03/04/2025, 024 HIV SCREENING Completed 03/04/2025 INFLUENZA VACCINE Completed 05/02/2025, , 04/23/2022, Additional history exists HEPATITIS B VACCINE Aged Out No longe [...] this topic Medical Devices Implanted Type Area Teradata Developer Device Identifier Shelf Expiration Date Model / Serial / Lot Ndl Sut 3 Blnt Cut Cbl Strl Spnl Ss Implanted:Qty: 1 on 03/15/2025 by Rahul Hernandez MD at [facility] N/A: Sternum [employer] 08/17/2029 [id number] / / [id number] Plate 6 Hl O Cncv Bone Lf Nonster Implanted:Qty: 1 on 03/15/2025 by Rahul Hernandez MD at [facility] N/A: Sternum [employer] 115.604.06 / / Screw 14mm Lck Nonster Bone Lf Implanted:Qty: 6 on 03/15/2025 by Rahul Hernandez MD at [facility] N/A: Sternum [employer] 100.035.14 / / Screw 16mm Lck Nonster Bone Lf Implanted:Qty: 6 on 03/15/2025 by Rahul Hernandez MD at [facility] N/A: Sternum [employer] 100.035.16 / / Screw 18mm Lck Nonster Bone Lf Implanted:Qty: 6 on 03/15/2025 by Rahul Hernandez MD at [facility] N/A: Sternum [employer] 100.035.18 / / Valve Mtrl 31mm Resilia - [id number] Implanted:Qty: 1 on 03/15/2025 by Rahul Hernandez MD at [facility] N/A: Mitral Valve [employer] 10/12/2029 [id number] / [id number] / Ndl Sut 3 Blnt Cut Cbl Strl Spnl Ss Implanted:Qty: 1 on 03/15/2025 by Rahul Hernandez MD at [facility] N/A: Sternum [employer] [id number] / / Plate Bone H 6 Hl Nonster Lf Implanted:Qty: 2 on 03/15/2025 by Rahul Hernandez MD at [facility] N/A: Sternum [employer] 115.102.06 / / Explanted Type Area Teradata Developer Device Identifier Shelf Expiration Date Model / Serial / Lot Plate Bone H 6 Hl Nonster Lf Explanted:Qty: 2 on 03/15/2025 by Rahul Hernandez MD at [facility] N/A: Mitral Valve [employer] 115.102.06 / / Description:no cost implant per rep; doc pay once program Plate 6 Hl O Cncv Bone Lf Nonster Explanted:Qty: 1 on 03/15/2025 by Rahul Hernandez MD at [facility] N/A: Mitral Valve [employer] 115.604.06 / / Description:no cost implant per rep; doc pay once program Screw 14mm Lck Nonster Bone Lf Explanted:Qty: 6 on 03/15/2025 by Rahul Hernandez MD at [facility] N/A: Mitral Valve [employer] 100.035.14 / / Description:no cost implant per rep; doc pay once program Screw 16mm Lck Nonster Bone Lf Explanted:Qty: 6 on 03/15/2025 by Rahul Hernandez MD at [facility] N/A: Mitral Valve [employer] 100.035.16 / / Description:no cost implant per rep; doc pay once program Screw 18mm Lck Nonster Bone Lf Explanted:Qty: 6 on 03/15/2025 by Rahul Hernandez MD at [facility] N/A: Mitral Valve [employer] 100.035.18 [...] 5, GFR less than 15 ml/min ([facility]) XR CHEST 1VW PORTABLE Routine [...] 2:42 PM CDT ACT PLUS - POCT ([facility]) Routine 03/15/2025 2:39 PM CDT FIBRINOGEN ACTIVITY STAT 03/15/2025 2 :34 PM CDT Mitral valve vegetation (HCC) PLATELET COUNT AUTO CITRATED BLOOD STAT 03/15/2025 2:33 PM CDT Mitral valve vegetation (HCC) ACT PLUS - POCT ([facility]) Routine 03/15/2025 2:07 PM CDT BLOOD GAS+COOX+LYTES+METAB ARTERIAL POCT Routine 03/15/2025 2:06 PM CDT PATHOLOGY TISSUE Routine 03/15/2025 1:53 PM CDT Mitral valve insufficiency, unspecified etiology BLOOD GAS+COOX+LYTES+METAB ARTERIAL POCT Routine 03/15/2025 1:30 PM CDT ACT PLUS - POCT ([facility]) Routine 03/15/2025 1:29 PM CDT BLOOD GAS+COOX+LYTES+METAB ARTERIAL POCT Routine 03/15/2025 1:15 PM CDT ACT PLUS - POCT ([facility]) Routine 03/15/2025 1:14 PM CDT ACT PLUS - POCT ([facility]) Routine 03/15/2025 1:04 PM CDT ACT PLUS - POCT ([facility]) Routine 03/15/2025 12:53 PM CDT BLOOD GAS+COOX+LYTES+METAB ARTERIAL POCT Routine 03/15/2025 12:52 PM CDT ACT PLUS - POCT ([facility]) Routine 03/15/2025 12:44 PM CDT BLOOD GAS+COOX+LYTES+METAB ARTERIAL POCT Routine 03/15/2025 12:33 PM CDT PULMONARY ARTERY CATHETER NOTE Routine 03/15/2025 12:19 PM CDT PULMONARY ARTERY CATHETER NOTE Routine 03/15/2025 12:19 PM CDT CENTRAL LINE NOTE Routine 03/15/2025 12:19 PM CDT ENDOTRACHEAL TUBE NOTE Routine 03/15/2025 12:18 PM CDT ARTERIAL LINE NOTE Routine 03/15/2025 12:18 PM CDT MD REPLACEMENT OF MITRAL VALVE 03/15/2025 11:04 AM [...] TUBE NOTE Routine 03/09/2025 6:28 PM CDT MD DENTAL SURGERY PROCEDURE 03/09/2025 5:37 PM CDT Infection Case Notes DOCTOR SEDIC WILL BE TO [facility] AND AVAILABLE TO OPERATE AT 1600. US RETROPERITONEAL COMPLETE Routine 03/09/2025 10:35 AM CDT CKD (chronic kidney disease) stage 5, GFR less than 15 ml/min (HCC) CBC W AUTO DIFFERENTIAL AM Draw 03/09/2025 4:46 AM CDT PHOSPHORUS BLOOD AM Draw 03/09/2025 4:45 AM CDT MAGNESIUM BLOOD AM Draw 03/09/2025 4:45 AM CDT COMPREHENSIVE METABOLIC PANEL AM Draw 03/09/2025 4:45 AM CDT HEPATITIS C AB SCREEN RFLX NAAT QUANT Routine 03/04/2025 6:36 AM CDT HIV-1 HIV-2 ANTIBODY + HIV P24 AG PANEL Routine 03/04/2025 6:36 AM CDT from Last 3 Months or Most Recently Relevant to Health Maintenance Results * IR Central Line Removal (05/01/2025 [...] 0 mGy Reference air kerma (ka,r). PROCEDURE: Straight Edger: Rigo Pabon Procedure : 1. Removal of [...] 0 mGy Reference air kerma (ka,r). PROCEDURE: Straight Edger: Rigo Pabon Procedure : 1. Removal of [...] 1:50 PM CDT) Only the most recent of2 resultswithin the time period is included. AV [...] 1:02 PM Patient Status: O/P Study Site: [facility] Primary Location: [facility] EStudy Info Technical Quality: Adequate Exam Type: [...] Provider: Rahul Hernandez Attending Physician: Rahul Hernandez Pottery Striper: Ricardo White Left Ventricle The left ventricle [...] 1:02 PM Patient Status: O/P Study Site: [facility] Primary Location: [facility] EStudy Info Technical Quality: Adequate Exam Type: [...] Provider: Rahul Hernandez Attending Physician: Rahul Hernandez Pottery Striper: Ricardo White Left Ventricle The left ventricle [...] MD on 04/05/2025 12:33 AM Ofelia Mckee CERTIFIED MARINE MECHANIC-THEATER SET PRODUCTION DESIGNER DIAGNOSTIC IMAGING OR DERABLES Final Result * [...] LAB - CHEMISTRY ORDERABLES F inal Result [address] [address], [facility] [phone] * (ABNORMAL) PT-INR (03/23/2025 12:54 AM CDT) Only the most recent of7 resultswithin the time period is included. PT 15.9(H) 12.1 - 14.8 Seconds 03/23/2025 1:37 AM CDT [facility] INR 1.3 See Comment 03/23/2025 1:37 AM CDT [facility] Comment:The suggested therap eutic range for standard coumadin (warfarin) therapy is an INR of 2.0-3.0. For high-risk patients (Mechanical Mitral Valve Prosthesis, etc.), the suggested prophylactic therapeutic range is an INR of 2.5-3.5. Blood BLOOD SPECIMEN / Unknown Lab Venipuncture / Unknown 03/23/2025 12:54 AM CDT 03/23/2025 1:16 AM CDT us Rahul Hernandez MD LAB - COAGULATION O RDERABLES Final Result [facility] [address] [place] [address], [facility] [phone] * (ABNORMAL) COMPREHENSIVE METABOLIC PANEL (03/23/2025 12:54 AM CDT) Only the most recent of15 resultswithin the time period is included. BUN [...] 5 - 55 U/L 03/23/2025 1:42 AM CDT [facility] AST 43(H) 5 - 34 U/L 03/23/2025 1:42 AM [facility] Anion Gap 9 6 - 16 03/23/2025 1:42 AM [facility] BUN/Creatinine Ratio 21 7 - 23 03/23/2025 1:42 AM [facility] Osmolality Calculated 297(H) 275 - 295 mOsm/kg 03/23/2025 1:42 AM [facility] Albumin/Globulin Ratio 0.8(L) 1.1 - 2.3 03/23/2025 1:42 AM [facility] eGFR by CKD-EPI 23(L) >=90 mL/min/1.7 3 m2 03/23/2025 1:42 AM [facility] Comment:Estimated Glomerular Filtration Rate (eGFR) calculated using the CKD-EPI Creatinine Equation (2020), per the National Kidney Foundation and [place] Society of Nephrology recommendations. Blood BLOOD SPECIMEN / Unknown Lab Venipuncture / Unknown 03/23/2025 12:54 AM CDT 03/23/2025 1:16 AM CDT us Rahul Hernandez MD LAB - CHEMISTRY ORD ERABLES Final Result [address] [address], [facility] [phone] * PHOSPHORUS BLOOD (03/23/2025 12:54 AM CDT) Only the most recent of16 resultswithin the time period is included. Phosphorus 3.7 2.8 - 5.1 mg/dL 03/23/2025 1:42 AM T [facility] Blood BLOOD SPECIMEN / Unknown Lab Venipuncture / Unknown 03/23/2025 12:54 AM CDT 03/23/2025 1:16 AM CDT Mariya Botello PA-C LAB - CHEMISTRY ORDERABLES F inal Result [address] [address] [phone] * MAGNESIUM BLOOD (03/23/2025 12:54 AM CDT) Only the most recent of16 resultswithin the time period is included. Pathologist [facility] Magnesium 2.0 1.6 - 2.6 mg/dL 03/23/2025 1:42 AM [facility] Blood BLOOD SPECIMEN / Unknown Lab Venipuncture / Unknown 03/23/2025 12:54 AM CDT 03/23/2025 1:16 AM CDT us Mariya Botello PA-C LAB - CHEMISTRY ORDERABLES F inal Result [facility] [address] [place] [address], [facility] [phone] * (ABNORMAL) CBC W/O DIFFERENTIAL (03/23/2025 12:53 AM CDT) Only the most recent of13 resultswithin the time period is included. Pathologist [facility] WBC 12.0(H) 4.0 - 10.7 x10E9/L 03/23/2025 [...] - 420 x10E9/L 03/23/2025 1:22 AM CDT [facility] MPV 10.2 7.8 - 11.4 fL 03/23/2025 1:22 AM CDT [facility] Blood BLOOD SPECIMEN / Unknown Lab Venipuncture / Unknown 03/23/2025 12:53 AM CDT 03/23/2025 1:15 AM CDT Mariya Botello PA-C LAB - HEMATOLOGY ORDERABLES Final Result [facility] [address] [place] [address], [facility] [phone] * IR Central Line Insert Tunnel (03/22/2025 [...] 5, GFR less than 15 ml/min ([facility]) Additional History: Straight Edger: Garcia Gil MD COMPARISON: None. FLUOROSCOPY DOSE: [...] evaluation, please review the evaluation forms in [facility]. For details on monitored clinical parameters during the intra-service sedation time, please review the procedure nurse documentation in [facility]. I was present for the Entire procedure. Procedure Note Garcia Gil MD - 03/22/2025 PROCEDURE: IR CENTRAL LINE INSERT TUNNEL DATE/TIME OF EXAM: 03/22/2025 12:53 PM CLINICAL INFORMATION: None relevant/not provided if blank. Indication: R09.89: Endocarditis, suspected N18.5: CKD (chronic kidney disease) stage 5, GFR less than 15 ml/min([facility]) Additional History: Straight Edger: Garcia Gil MD COMPARISON: None. FLUOROSCOPY DOSE: [...] response to care. Intra-service sedation start time [id number] and end time was 1228 during which I was present. Total physician intra-service sedation time was 14 minutes. For details on pre-moderate sedation and post-moderate sedation patient evaluation, please reviewthe evaluation forms in [facility]. For details on monitored clinical parameters during the intra-service sedation time, please review the procedurenurse documentation in [facility]. I was present for the Entire procedure. IMPRESSION: Successful Right internal jugular tunneled Dual Lumen Powerlineplacement. > Interpreting Provider: Posan Limbu, MD on 03/22/2025 2:04 PM us Rahul Hernandez MD IR ORDERABLES Fin al Result * XR Chest 1Vw Portable (03/22/2025 4:27 AM CDT) Only the most recent of10 resultswithin the time period is included. Anatomical Region Laterality Modality Chest Digital Radiogra phy 03/22/2025 8:55 AM CDT Narrative 03/22/2025 7:08 PM CDT PROCEDURE: XR CHEST 1VW PORTABLE, DATE/TIME OF EXAM: 03/22/2025 4:27 AM, LOCATION [facility] INDICATION: I34.0: Mitral valve [...] dictated by Jamie Rucker MD, (vice president of marketing). > Dictated by Oncology Coordinator I, Jamie Barriga MD have personally reviewed and interpreted this examination/study. > Interpreting Provider: Jamie Barriga MD on 03/22/2025 7:08 PM Procedure Note Jamie Barriga MD - 03/22/2025 PROCEDURE: XR CHEST 1VW PORTABLE, DATE/TIME OF EXAM: 03/22/2025 4:27 AM, LOCATION [facility] INDICATION: I34.0: Mitral valve [...] dictated by Jamie Rucker MD, (vice president of marketing). > Dictated by Oncology Coordinator I, Jamie Barriga MD have personally reviewed and interpreted this examination/study. > Interpreting Provider: Jamie Barriga MD on 03/22/2025 7:08 PM Buffy Sanchesjoey CERTIFIED MARINE MECHANIC-THEATER SET PRODUCTION DESIGNER DIAGNOSTIC IMAGI NG ORDERABLES Final Result * EKG 12-Lead (03/20/2025 12:00 PM CDT) Only the most recent of7 resultswithin the time period is included. Ventricular Rate 125 BPM [facility] MUSE Atrial Rate 125 BPM [facility] QRS Duration ms 90 ms [facility] Q-T Interval ms 336 ms [facility] QTC Calculation (Bezet) 484 ms [facility] MUSE Calculated P [place] 55 degrees [facility] MUSE Calculated R [place] 69 degrees [facility] MUSE Calculated T [place] 55 degrees [facility] MUSE Interpretation EKG SINUS TACHYCARDIA NONSPECIFIC ST ABNORMALITY ABNORMAL ECG WHEN COMPARED WITH ECG OF 20-MAR-2025 11:59, SINUS TACHYCARDIA HAS REPLACED JUNCTIONAL RHYTHM Confirmed by PRASAD LOUIS MD ([id number]) on 03/26/2025 10:12:19 PM [facility] MUSE 03/20/2025 12:0 0 PM CDT 03/26/2025 10:12 PM CDT Yousuf Chaudhari PA-C ECG ORDERABLES Edited Resu lt - Final [facility] MUSE * (ABNORMAL) BASIC METABOLIC PANEL (CALCIUM TOTAL) (03/19/2025 8:44 PM CDT) Only the most recent of3 resultswithin the time period is included. BUN 54(H) 7 - 26 mg/dL 03/19/2025 9:27 PM CDT [facility] Creatinine 2.92(H) 0.71 - 1.16 [...] 18 7 - 23 03/19/2025 9:27 PM [facility] Osmolality Calculated 294 275 - 295 mOsm/kg 03/19/2025 9:27 PM [facility] eGFR by CKD-EPI 23(L) >=90 mL/min/1.7 3 m2 03/19/2025 9:27 PM [facility] Comment:Estimated Glomerular Filtration Rate (eGFR) calculated using the CKD-EPI Creatinine Equation (2020), per the National Kidney Foundation and [place] [employer] of Nephrology recommendations. Blood BLOOD SPECIMEN / Unknown Venipuncture / Unknown 03/19/2025 8:44 PM CDT 03/19/2025 8:58 PM CDT us Nayan Flaquito Hernandez CERTIFIED MARINE MECHANIC-THEATER SET PRODUCTION DESIGNER LAB - CHEMISTRY ORD ERABLES Final Result [facility] [address] [place] [address], [facility] [phone] * GLUCOSE - POINT OF CARE (03/19/2025 8:22 AM CDT) Only the most recent of22 resultswithin the time period is included. Glucose WB/POC 89 70 - 99 mg/dL 03/19/2025 8:27 AM [facility] Specimen Type Arterial/C apillary 03/19/2025 8:27 AM [facility] Blood BLOOD SPECIMEN / Unknown 03/19/2025 8:22 AM CDT 03/19/2025 8:27 AM CDT us Rahul Hernandez MD LAB - POINT OF CARE ORDERABLES Final Result [facility] [address] [place] [address], [facility] [phone] * (ABNORMAL) HEPATIC FUNCTION PANEL (03/19/2025 4:28 AM CDT) Protein Total 6.2 6.0 - 8.3 g/dL 025 7:34 AM [facility] Albumin 3.1(L) 3.4 - 5.0 g/dL 03/19/2025 7:34 AM [facility] Bilirubin Total 0.4 0.2 - 1.2 mg/dL 02/19 7:34 AM [facility] Bilirubin Conjugated 0.2 0.1 - 0.5 mg/dL 03/19/2025 7:34 AM [facility] Bilirubin Unconjugated 0.2 Unconjugated Bilirubin is a calculated value: Reference ranges have not been established. mg/dL 03/19/2025 7:34 AM [facility] Alkaline Phosphatase 198(H) 40 - 150 U/L 03/19/2025 7:34 AM [facility] ALT 166(H) 5 - 55 U/L 03/19/2025 7:34 AM [facility] AST 173(H) 5 - 34 U/L 03/19/2025 7:34 AM [facility] Albumin/Globulin Ratio 1.0(L) 1.1 - 2.3 03/19/2025 7:34 AM [facility] Blood BLOOD SPECIMEN / Unknown Venipuncture / Unknown 03/19/2025 4:28 AM CDT 03/19/2025 4:38 AM CDT Jennyfer Dallas DO LAB - CHEMISTRY ORDERABLES Final Result Performing Organization Address City/[facility]/ZIP Co de Phone Number [facility] [address] [place] [address], [facility] [phone] * TRANSFUSE RED BLOOD CELL LEUKOREDUCED UNIT(S) (03/16/2025 10:21 PM CDT) Rahul Hernandez MD NURSING - BLOOD PRO D TRANSFUSION Final Result * TYPE + SCREEN PANEL (03/16/2025 5:39 PM CDT) Only the most recent of3 resultswithin the time period is included. Pathologist [facility] Antibody Screen NEG 6:34 PM CDT [facility] ABO Rh O POS 03/16/2025 6:34 PM CDT [facility] Blood Bank BLOOD SPECIMEN / Unknown Venipuncture / Unknown 03/16/2025 5:39 PM CDT 03/16/2025 5:51 PM CDT Rahul Hernandez MD LAB - BLOOD BANK OR DERABLES Final Result Performing Organization Address City/[facility]/ZIP Co de Phone Number [facility] [address] [place] [address], [facility] [phone] * TRANSFUSE RED BLOOD CELL LEUKOREDUCED UNIT(S) (03/16/2025 11:36 AM CDT) Nayan Hernandez CERTIFIED MARINE MECHANIC-THEATER SET PRODUCTION DESIGNER NURSING - BLOOD PRO D TRANSFUSION Final Result * (ABNORMAL) SVO2 FOR RECALIBRATION (03/16/2025 3:11 AM CDT) Only the most recent of4 resultswithin the time period is included. Pathologist [facility] SVO2 for Recalibration 48.1(L) 66.0 - 77.0 % 03/16/2025 3:20 AM CDT [facility] Blood BLOOD SPECIMEN / Unknown Venipuncture / Unknown 03/16/2025 3:11 AM CDT 03/16/2025 3:16 AM CDT Mariya Botello PA-C LAB - CHEMISTRY ORDERABLES F inal Result Performing Organization Address City/[facility]/ZIP Co de Phone Number [address] [address], [place] [phone] * HEMOGLOBIN A1C (03/16/2025 3:11 AM CDT) Hemoglobin A1c 5.3 <=5.6 % 03/16/2025 10:31 AM CDT [facility] Estimated Average Glucose 105 mg/dL 03/16/2025 10:31 AM CDT [facility] Comment: HbA1c Interpretation: Normal : < 5.7% Pre-diabetes: 5.7-6.4% Diabetes: Equal to or greater than 6.5% Test results diagnostic of diabetes should be repeated for confirmation. Treatment target values recommended by ADA and other clinical organizations should be used to evaluate metabolic control in patients. Reference: [place] [employer], Standards of Care in Diabetes [...] LAB - CHEMISTRY ORDERABLES F inal Result [address] [address], [place] [phone] * (ABNORMAL) LACTIC ACID BLOOD (03/16/2025 3:11 AM CDT) Only the most recent of3 resultswithin the time period is included. Lactic Acid-Stat 3.7(HH) <=2.0 mmol/L 03/16/2025 4:02 AM CDT [facility] Blood BLOOD SPECIMEN / Unknown Venipuncture / Unknown 03/16/2025 3:11 AM CDT 03/16/2025 3:21 AM CDT us Nayanbita Hernandez CERTIFIED MARINE MECHANIC-THEATER SET PRODUCTION DESIGNER LAB - CHEMISTRY ORD ERABLES Final Result [facility] [address] [place] [address], [facility] [phone] * (ABNORMAL) BLOOD GASES ART + COOX PANEL (03/16/2025 3:11 AM CDT) Only the most recent of4 resultswithin the time period is included. pH Arterial 7.38 7.35 - 7.45 pH 03/16/2025 3:21 AM [facility] pO2 Arterial 104(H) 80 - 100 mmHg 03/16/2025 3:21 AM [facility] pCO2 Arterial 31(L) 35 - 45 mmHg 3:21 AM [facility] HCO3 Arterial 18.3(L) 20.0 - [...] - 100 % 03/16/2025 3:21 AM CDT [facility] FI O2 Arterial 28.0 % 03/16/2025 3:21 AM CDT [facility] Blood, arterial ARTERIAL BLOOD SPECIMEN / Unknown Arterial Puncture / Unknown 03/16/2025 3:11 AM CDT 03/16/2025 3:16 AM CDT Narrative [facility] - 03/16/2025 3:21 AM CDT Carboxyhemoglobin Normal Concentration: Non-smokers: 0-2%; Smokers: 0-9%; Toxic: >20% Nayanbita Hernandez CERTIFIED MARINE MECHANIC-THEATER SET PRODUCTION DESIGNER LAB - BLOOD GASES O RDERABLES Final Result [facility] [address] [place] [address], [facility] [phone] * TRANSFUSE RED BLOOD CELL LEUKOREDUCED UNIT(S) [...] - 400 mg/dL 03/15/2025 6:03 PM CDT [facility] Blood BLOOD SPECIMEN / Unknown Venipuncture / Unknown 03/15/2025 5:32 PM CDT 03/15/2025 5:35 PM CDT Mariya Botello PA-C LAB - COAGULATION ORDERABLES Final Result Performing Organization Address [facility] Co de Phone Number [address] [address], [facility] [phone] * PTT (03/15/2025 5:32 PM CDT) Only the most recent of2 resultswithin the time period is included. APTT 29.8 23.0 - 38.4 Seconds 03/15/2025 6:05 PM T [facility] Comment:Suggested therapeuti c range for full dose I.V. unfractionated heparin therapy for venous thromboembolism is 71 to 109 seconds. Blood BLOOD SPECIMEN / Unknown Venipuncture / Unknown 03/15/2025 5:32 PM CDT 03/15/2025 5:35 PM CDT us Mariya Pastormaulik PA-C LAB - COAGULATION ORDERABLES Final Result Performing Organization Address [facility]/ZIP Co de Phone Number [address] [address], [place] [phone] * (ABNORMAL) DIFFERENTIAL MANUAL (03/15/2025 5:32 PM CDT) Neutrophil % 90(H) 41 - 74 % 03/15/2025 6:09 PM CDT [facility] Lymphocyte % 6(L) 17 - 47 % 03/15/2025 6:09 PM CDT [facility] Monocyte % 4 3 - 11 % 03/15/2025 6:09 PM T [facility] Neutrophil Absolute 19.53(H) 1.60 - 7.50 x10E9/L 03/15/2025 6:09 PM T [facility] Lymphocyte Absolute 1.30 1.00 - 4.40 x10E9/L 03/15/2025 6:09 PM [facility] Monocyte Absolute 0.87 0.15 - [...] Final Result [facility] [address] [place] [address], [facility] [phone] * (ABNORMAL) CBC W AUTO DIFFERENTIAL (03/15/2025 5:32 PM CDT) Only the most recent of7 resultswithin the time period is included. WBC [...] - 14.8 % 03/15/2025 6:09 PM CDT [facility] Platelet Count 251 150 - 420 x10E9/L 03/15/2025 6:09 PM CDT [facility] MPV 9.5 7.8 - 11.4 fL 03/15/2025 6:09 PM CDT [facility] Blood BLOOD SPECIMEN / Unknown Venipuncture / Unknown 03/15/2025 5:32 PM CDT 03/15/2025 5:38 PM CDT Mariya Botello PA-C LAB - HEMATOLOGY ORDERABLES Final Result [facility] [address] [place] [address], [facility] [phone] * CULTURE FUNGUS OTHER+FUNGUS SMEAR (03/15/2025 5:06 PM CDT) Culture No fungus isolated [place]ELLE 04/10/2025 7:[address] [facility] MICROBIOLOG[facility] Fungus Stain No yeast or hyphae seen 04/10/2025 7:[address] [facility]CRO[facility] Microbiology TISSUE SPECIMEN / Unknown Collection / Unknown 03/15/2025 5:06 PM CDT 03/15/2025 5:06 PM CDT Rahul Hernandez MD LAB - MICROBIOLOGY ORDERABLES Final Result [facility] MICROBIOLOGY [address] [place] [address], [facility] [phone] * CULTURE WOUND+GRAM STAIN (03/15/2025 5:06 PM CDT) Culture No growth [place] 03/19/2025 1:10 PM CDT [facility] Gram Stain Light Polymorphonuclear cells 03/19/2025 1:10 PM CDT [facility] Gram Stain No organisms seen 025 1:[address] [facility]CRO[facility] Microbiology TISSUE SPECIMEN / Unknown Collection / Unknown 03/15/2025 5:06 PM CDT 03/15/2025 5:06 PM CDT Rahul Hernandez MD LAB - MICROBIOLOGY ORDERABLES Final Result Performing Organization Address [facility]/ZIP Co de Phone Number [facility] MICROBIOLOGY [address] [place] [address], [facility] [phone] * CULTURE AFB+SMEAR (03/15/2025 5:06 PM CDT) Culture No acid-fast bacillus isolated 04/24/2025 7:[address] [facility]CRO[facility] AFB Smear No acid-fast bacilli seen 04/24/2025 7:[address] [facility]CRO[facility] Microbiology TISSUE SPECIMEN / Unknown Collection / Unknown 03/15/2025 5:06 PM CDT 03/15/2025 5:06 PM CDT Rahul Hernandez MD LAB - MICROBIOLOGY ORDERABLES Final Result Performing Organization Address [facility] Co de Phone Number [facility] MICROBIOLOGY [address] [place] [address], [facility] [phone] * CULTURE ANAEROBE (03/15/2025 5:06 PM CDT) Culture No anaerobic organisms isolated [place] 03/20/2025 12:[address] [facility] MICRO[facility]OLOGY Microbiology TISSUE SPECIMEN / Unknown Collection / Unknown 03/15/2025 5:06 PM CDT 03/15/2025 5:06 PM CDT Rahul Hernandez MD LAB - MICROBIOLOGY ORDERABLES Final Result Performing Organization Address City/[facility]/ZIP Co de Phone Number [facility] MICROBIOLOGY [address] [place] [address], [facility] [phone] * TRANSFUSE FRESH FROZEN PLASMA UNIT(S) (03/15/2025 [...] were not saved. I personally performed. CPT 26479 with bilateral modifier. Alexa Page MD GENERAL ANESTHESIA ORDERA BLES Final Result * TRANSFUSE RED BLOOD CELL LEUKOREDUCED UNIT(S) (03/15/2025 4:15 PM CDT) Rahul Hernandez MD NURSING - BLOOD PRO D TRANSFUSION Final Result * TRANSFUSE PLATELET PHERESIS UNIT(S) (03/15/2025 4:14 PM CDT) us Rahul Hernandez MD NURSING [...] 3.5 - 5.5 mmol/L 03/15/2025 4:00 PM T [facility] Chloride WB 107 78 - 107 mmol/L 03/15/2025 4:00 PM T [facility] Calcium Ionized 1.36 mmol/L 4:00 PM T [facility] Ionized Calcium pH Adjusted 1.33 1.19 - 1.34 mmol/L 03/15/2025 4:00 PM T [facility] Anion Gap (AG) Arterial 9 6 - 16 mmol/L 03/15/2025 4:00 PM T [facility] Glucose WB 193(H) 70 - 99 mg/dL 03/15/2025 4:00 PM [facility] Lactic Acid Whole Blood 1.8 <=2.0 mmol/L 03/15/2025 4:00 PM T [facility] Blood, arterial ARTERIAL BLOOD SPECIMEN / Unknown 03/15/2025 4:00 PM CDT 03/15/2025 4:00 PM CDT Cornelia Serra MD LAB - POINT OF CARE ORDERABLE S Final Result [address] [address], [facility] [phone] * TRANSFUSE RED BLOOD CELL LEUKOREDUCED UNIT(S) (03/15/2025 3:30 PM CDT) us Rahul Hernandez MD NURSING - BLOOD PRO D TRANSFUSION Final Result * ACT PLUS - POCT ([facility]) (03/15/2025 3:17 PM CDT) Only the most recent of8 resultswithin the time period is included. Pathologist [facility] ACT PLUS 112 See result comments [...] COAGULATION ORDERABLES Final Result Performing Organization Address City/[facility]/ZIP Co de Phone Number [address] [address], [facility] [phone] * (ABNORMAL) TEG 6 GLOBAL HEMOSTASIS WITH HEPARIN NEUTRALIZATION (03/15/2025 3:10 PM CDT) [facility] CITRATED KAOLIN R (CK-R REACTION TIME) 5.4 4.6 - 9.1 min 03/15/2025 4:11 PM CDT [facility] CITRATED KAOLIN MA (-MA MAX AMPLITUDE) 70.3(H) 52.0 - 69.0 mm 03/15/2025 4:11 PM CDT [facility] CITRATED KAOLIN HEPARINASE R ( [facility] R REACTION TIME) 4.7 4.3 - 8.3 min 03/15/2025 4:11 PM CDT [facility] CITRATED KAOLIN HEPARINASE LY30 ([facility] LY30 LYSIS) 0.0 0.0 - 3.2 % 03/15/2025 4:11 PM CDT [facility] CITRATED RAPIDTEG HEPARINASE MA ( [facility] MA MAX AMPLITUDE) 69.5(H) 53.0 - [...] ORDERABL ES Final Result Performing Organization Address [facility]/ZIP Co de Phone Number [address] [address], [place] [phone] * PLATELET COUNT AUTO CITRATED BLOOD (03/15/2025 [...] characteristics determined by the clinical laboratories of [facility] and [facility]. It has not been cleared and approved by the [place] Food and Drug Administration. us Alexa Page MD LAB - HEMATOLOGY ORDERABL ES Final Result [address] [address], [facility] [phone] * PATHOLOGY TISSUE (03/15/2025 1:53 PM CDT) Case Report Surgical Pathology Report Case: [id number] Authorizing Provider: Rahul Hernandez Collected: 03/15/2025 01:53 PM MD Tyrell Ordering Location: [facility]UNILDA OP Received: 03/16/2025 05:08 [...] SINTIA. Valve incompetent. 03/17/2025 3:58 PM CDT [facility] Gross Description Received in formalin, labeled with the patient's name Marshall Mercer Jr., specimen A, consists of a 3.2 x 1.8 x 0.1 cm portion of henry-white to henry-yellow heterogeneous rubbery tissue, consistent with mitral valve leaflet, which has multiple portions of attached henry-white thin delicate chordae tendinea. There are no vegetations or calcific nodules present. Suppository Molding Machine Operator sections are submitted in a single cassette labeled A1. RB 03/17/2025 3:58 PM CDT [facility] Pathologist Location at [facility] 03/17/2025 3:58 PM CDT [facility] Disclaimer The performance characteristics of all immunohistochemical and indirect immunofluorescence stains (if any) cited in this report were determined by the Histopathology Laboratory of [facility]. Some of these tests were developed by [...] (teaching) pathologist. 03/17/2025 3:58 PM CDT [facility] Embedded Images 03/17/2025 3:58 PM CDT [facility] Resection without Tumor ENTIRE MITRAL VALVE / Unknown 03/15/2025 1:53 PM CDT 03/16/2025 5:08 AM CDT Comment:Pre-op diagnosis: mitral valve regurgitation us Rahul Hernandez MD LAB - PATHOLOGY/CYT OLOGY ORDERABLES Final Result [facility] [address] [place] [address], [facility] [phone] * PA CATH PERFORMABLE, INTRODUCER (03/15/2025 12:19 [...] Event Date/Time: 03/15/2025 11:38 AM Procedure: intubation ([id number]) Procedure Section: Sedation: under general anesthesia. Indications [...] Time: 03/15/2025 11:32 AM Procedure: Arterial Line (38755) Procedure Section Indications: continuous blood pressure monitoring. [...] O RDERABLES Final Result Performing Organization Address City/[facility]/ZIP Co de Phone Number [address] [address], [place] [phone] * BLOOD GAS ART+LYTES+METAB+COOX POC NOTIF (03/15/2025 8:06 AM CDT) Comment Notification Label Only - See Separate Report 03/15/2025 9:31 AM CDT [facility] Other MISCELLANEOUS SAMPLES / Unknown 03/15/2025 8:06 AM CDT 03/15/2025 8:07 AM CDT us Rahul Hernandez MD LAB - BLOOD GASES O RDERABLES Final Result Performing Organization Address City/[facility]/ZIP Co de Phone Number [address] [address], [place] [phone] * ECHO ANES SINTIA INTRAOP (03/15/2025 6:23 [...] 10:01 AM Patient Status: I/P Study Site: [facility] Primary Location: [facility] EStudy Info Exam Type: ECHO ANES SINTIA [...] 10:01 AM Patient Status: I/P Study Site: [facility] Primary Location: [facility] EStudy Info Exam Type: ECHO ANES [...] UNIT(S) (03/14/2025 5:37 PM CDT) Ofelia Mckee CERTIFIED MARINE MECHANIC-THEATER SET PRODUCTION DESIGNER NURSING - BLOOD PROD TRANSFUSION Final Result * PREPARE (CROSSMATCH) RBC UNIT(S), 1 Units (03/14/2025 5:21 AM CDT) Only the most recent of6 resultswithin the time period is included. Unit Description N/A [facility] Blood Bank BLOOD SPECIMEN / Unknown 03/14/2025 5:21 AM CDT 03/14/2025 5:53 AM CDT Rahul Hernandez MD LAB - BLOOD BANK OR DERABLES Final Result [facility] [address] [place] [address], [facility] [phone] * PREPARE PLATELET PHERESIS UNIT(S), 2 Units (03/14/2025 5:21 AM CDT) Only the most recent of2 resultswithin the time period is included. Unit Description LR PLT Phere B7 [facility] Unit ABO O [facility] Unit Rh POS [facility] Product Number P27 [facility] LOOD [facility] Unit Donor # [id number] [facility] Unit Status transfused [facility] BLO OD [facility]ANK LAB Product Code [id number] [facility] Blood Type Barcode 5100 [facility] Expiration Date [id number] S BLOOD BANK LAB Unit Description LR PLT Phere B7 [facility] Unit ABO O [facility] Unit Rh POS [facility] Product Number P27 [facility] B LOOD BANK LAB Unit Donor # [id number] [facility] B[facility]OD [facility] Unit Status released [facility] BLOO D BANK LAB Product Code [id number] [facility] BLO OD BANK LAB Blood Type Barcode 5100 [facility] Expiration Date [id number] S BLOOD BANK LAB Blood Bank BLOOD SPECIMEN / Unknown 03/14/2025 5:21 AM CDT 03/14/2025 5:53 AM CDT Rahul Hernandez MD LAB - BLOOD BANK OR DERABLES Final Result [facility] [address] [place] [address], [facility] [phone] * PREPARE FFP UNIT(S), 4 Units (03/14/2025 5:21 AM CDT) Only the most recent of2 resultswithin the time period is included. Unit Description Liquid Plasma [facility] Unit ABO A [facility] Unit Rh POS [facility] B[facility]OD B[facility] Product Number E2457 [facility] B LOOD BANK LAB Unit Donor # [id number] [facility] B[facility]OD [facility] Unit Status released [facility] BLOO D BANK LAB Product Code [id number] [facility] BLO OD BANK LAB Blood Type Barcode 6200 [facility] B[facility] Expiration Date S BLOOD BANK LAB Unit Description Liquid Plasma [facility] B[facility]OD B[facility] Unit ABO A [facility] B[facility] B[facility] Unit Rh POS [facility] BLOOD [facility] Product Number E2457 [facility] B LOOD BANK LAB Unit Donor # [id number] [facility] BLOOD BANK LAB Unit Status transfused [facility] BLO OD BANK LAB Product Code [id number] [facility] BLO OD BANK LAB Blood Type Barcode 6200 [facility] BLOOD [facility] LAB Expiration Date S BLOOD BANK LAB Blood Bank BLOOD SPECIMEN / Unknown 03/14/2025 5:21 AM CDT 03/14/2025 5:53 AM CDT Rahul Hernandez MD LAB - BLOOD BANK OR DERABLES Final Result [facility] [address] [place] [address], [facility] [phone] * (ABNORMAL) URINALYSIS REFLEX MICROSCOPIC REFLEX CULTURE (03/13/2025 9:10 AM CDT) Color UA Colorless(A) Yellow, Straw 03/13/2025 9:50 AM CDT [facility] Clarity UA Clear Clear 03/13/2025 9:50 AM T [facility] Glucose UA 1+(A) Normal 03/13/2025 9:50 AM CDT [facility] Bilirubin UA Negative Negative 03/13/2025 9:50 AM T [facility] Ketone UA Negative Negative 03/13/2025 9:50 AM T [facility] Specific Chloride UA 1.012 1.005 - 1.030 03/13/2025 9:50 AM CDT [facility] Blood UA Negative Negative 03/13/2025 9:50 AM CDT [facility] pH UA 6.5 5.0 - 8.0 03/13/2025 9:50 AM T [facility] Protein UA 1+(A) Negative 03/13/2025 9:50 AM CDT [facility] Urobilinogen UA Normal Normal mg/dL 03/13/2025 9:50 AM CDT [facility] Nitrite UA Negative Negative 03/13/2025 9:50 AM CDT [facility] Leukocyte Esterase UA Negative Negative 03/13/2025 9:50 AM CDT [facility] RBC UA 0-2 0 - 5 # /hpf 03/13/2025 9:50 AM CDT [facility] WBC UA 0-5 0 - 5 # /hpf 03/13/2025 9:50 AM CDT [facility] Bacteria UA None Seen None Seen 03/13/2025 9:50 AM CDT [facility] Squamous Epithelial Cells None Seen 0 - 5 /hpf 03/13/2025 9:50 AM T [facility] Mucus UA 1+ /LPF 03/13/2025 9:50 AM T [facility] Reflex Status Culture not indicated 03/13/2025 9:50 AM T [facility] Urine URINE SPECIMEN OBTAINED BY CLEAN CATCH PROCEDURE / Unknown Collection / Unknown 03/13/2025 9:10 AM CDT 03/13/2025 9:19 AM CDT Narrative [facility] - 03/13/2025 9:50 AM CDT Ofelia Mckee CERTIFIED MARINE MECHANIC-THEATER SET PRODUCTION DESIGNER LAB - URINALYSIS HAYLIE DAVIS Final Result Performing Organization Address [facility]/State/[facility] Co de Phone Number [facility] [address] [place] [address], [facility] [phone] * BLOOD TYPE VERIFICATION (03/10/2025 10:02 PM CDT) ABO Rh O POS 03/10/2025 10:56 PM CDT [facility] Blood Bank BLOOD SPECIMEN / Unknown Lab Venipuncture / Unknown 03/10/2025 10:02 PM CDT 03/10/2025 10:11 PM CDT Yousuf Chaudhari PA-C LAB - BLOOD BANK ORDERABLES Final Result [facility] [address] [place] [address], [facility] [phone] * CT Chest Wo Contrast (03/10/2025 2:43 [...] Dictated by Nick Jay MD, (vice president of marketing). > Dictated by Oncology Coordinator IJen MD have personally reviewed and interpreted this examination/study. > Interpreting Provider: Jen Thomson MD on 03/10/2025 5:00 PM Narrative 03/10/2025 5:00 PM CDT PROCEDURE: CT CHEST WO CONTRAST, DATE/TIME OF EXAM: 03/10/2025 2:44 PM, LOCATION [facility] INDICATION: I33.0: Mitral valve [...] The coronary arteries are atherosclerotic. Mediastinum and Demetar: No mediastinal mass is present. Mildly prominent [...] DATE/TIME OF EXAM: 03/10/2025 2:44 PM, LOCATION [facility] INDICATION: I33.0: Mitral valve [...] Dictated by Nick Jay MD, (vice president of marketing). > Dictated by Oncology Coordinator IJen MD have personally reviewed and [...] PMHx HTN, COPD, CKD, GERD presented to [facility] as OSH transfer for CTS evaluation [...] Event Date/Time: 03/09/2025 6:17 PM Procedure: intubation (13488) Procedure Section: Sedation: under general anesthesia. Indications [...] > Dictated by Eunice Ramirez (vice president of marketing). > Dictated by Eunice Ramirez 03/09/2025 11:07 AM > Dictated by Oncology Coordinator Jen Cason MD have personally reviewed and interpreted this examination/study. > Interpreting Provider: Jen Thomson MD on 03/09/2025 1:40 PM Narrative 03/09/2025 1:40 PM CDT PROCEDURE: US RETROPERITONEAL COMPLETE DATE/TIME OF EXAM: 03/09/2025 10:36 AM CLINICAL INFORMATION: None relevant/not provided if blank. Indication: N18.5: CKD (chronic kidney disease) stage 5, GFR less than 15 ml/min ([facility]) Additional History: COMPARISON: None. TECHNIQUE: Real-time ultrasound of the kidneys and bladder with DICOM image capture performed by nanotechnologist. FINDINGS: Right kidney: 10.9 x 5.6 x [...] and bladder with DICOMimage capture performed by nanotechnologist. FINDINGS: Right kidney: 10.9 x 5.6 x [...] > Dictated by Eunice Ramirez (vice president of marketing). > Dictated by Eunice Ramirez 03/09/2025 11:07 AM > Dictated by Oncology Coordinator IAd. Stephany Thomson MD have personally reviewed and interpreted this examination/study. > Interpreting Provider: Jen Thomson MD on 03/09/2025 1:40 PM us Adalberto Arroyo MD US ORDERABLES Final Result * HEPATITIS C AB SCREEN RFLX NAAT QUANT (03/04/2025 6:36 AM CDT) Hepatitis C Antibody Non-react [place] Non-reac tive 03/04/2025 8:16 AM CDT [facility] Comment:Hepatitis C Antibody screen indicates no serologic [...] 6:36 AM CDT 03/04/2025 6:55 AM CDT PramodWorktopiaer DO LAB - CHEMISTRY ORDERABLES Fin al Result [address] [address], [employer] [phone] * HIV-1 HIV-2 ANTIBODY + HIV P24 AG PANEL (03/04/2025 6:36 AM CDT) HIV Antigen/Antibod y 1 & 2 Non-reacti ve Non-react [place] 03/04/2025 9:14 AM CDT [facility] Comment:No Laboratory eviden ce of HIV infection. Blood BLOOD SPECIMEN / Unknown Lab Venipuncture / Unknown 03/04/2025 6:36 AM CDT 03/04/2025 6:55 AM CDT Pramod C Torres DO LAB - CHEMISTRY ORDERABLES Fin al Result Performing Organization Address City/[facility]/ZIP Co de Phone Number [address] [address], [place] [phone] from Last 3 Months or Most Recently Relevant to Health Maintenance Insurance [employer] Advance Directives * Full Code (Latest Code Status on File) Date Activated Date Inactivated Comments 03/01/2025 10:01 PM 03/23/2025 4:41 PM Care Teams Packing Inspector Relationship Specialty Start Date End Date Carlos Ventura MD [address] [place] [address] PCP - General Internal Medicine 03/17/25
[2025-06-09 09:14] LABS: Hematocrit 40.0 % (37.0-46.0); Hemoglobin 12.7 g/dL (12.4-15.3); Immature Granulocyte Percent A 0.5 % (0.0-0.0); Lymphocytes Absolute Auto 1.88 K/mm3 (1.10-4.50); Mean Corpuscular HGB Conc 31.8 g/dL (32-36); Mean Corpuscular Hemoglobin 28.4 pg (27.0-31.0); Mean Corpuscular Volume 89.5 fL (78.0-102.0); Nucleated Red Blood Cells Absolute Auto 0.00 K/mm3 (0.00-0.00); Nucleated Red Blood Cells Perc 0.0 % (0-0.0); Platelet Count Result 404 K/mm3 (150-420); Red Blood Count 4.47 M/mm3 (4.70-6.10); White Blood Count 8.8 K/mm3 (4.8-10.8)
[2025-06-09 09:42] LABS: INR 4.0; Prothrombin Time 39.0 Seconds (9.50-12.1)
[2025-06-09 09:56] LABS: Alanine Aminotransferase 10 U/L (6-50); Albumin Level 4.5 g/dL (3.5-5.1); Alkaline Phosphatase 116 U/L (38-126); Anion Gap 12 mmol/L (4-12); Aspartate Amino Transferase 24 U/L (17-59); Bilirubin,Total 0.4 mg/dL (0.2-1.3); Blood Urea Nitrogen 31 mg/dL (9-20); Calcium 9.2 mg/dL (8.4-10.2); Carbon Dioxide 20 mmol/L (22-30); Chloride 116 mmol/L (98-107); Estimated Glomerular Filt Rate 21; Glucose 103 mg/dL (65-110); Osmolality Calculated 312 mOsm/kg (285-295); Potassium 4.4 mmol/L (3.4-5.0); Sodium 148 mmol/L (137-145); Total Protein 7.8 g/dL (6.3-8.2)
[2025-06-12 11:06] LABS: Parathyroid Intact 117.0 pg/mL (14.5-75.2)
== END 2025-06-09 08:49 | disposition home or self-care (01) ==
PROVIDERS: PCP Internal Medicine
DX: D73.3 Abscess of spleen (principal); Z51.81 Encounter for therapeutic drug level monitoring
CPT/HCPCS: 36415; 80053; 83970; 84100; 85025; 85610